=== PATIENT | female | born 1955 | race Caucasian/White ===

== ENCOUNTER 2021-09-07 10:16 | Outpatient (CLI) | payer MEDICARE, OTHER, SELFPAY ==
[2021-09-07 11:19] LABS: Basophils Absolute Auto 0.03 K/uL (0.00-0.30); Basophils Percent Auto 0.5 % (0.0-3.0); Eosinophils Absolute Auto 0.06 K/uL (0.00-0.50); Hematocrit 43.6 % (33.0-51.0); Hemoglobin* 14.1 gm/dL (12.0-16.0); Immature Granulocytes Abs Auto 0.02 K/uL (0.00-0.30); Lymphocytes Absolute Auto 1.51 K/uL (0.90-2.90); Lymphocytes Percent Auto 25.5 % (20-44); Mean Corpuscular HGB Conc 32 gm/dL (32-36); Mean Corpuscular Hemoglobin 29 pg (26-34); Mean Corpuscular Volume 91 fL (80-100); Monocytes Percent Auto 10.5 % (0.0-11.0); Neutrophils Absolute Auto 3.69 K/uL (1.7-7.0); Neutrophils Percent Auto 62.2 % (42.0-72.0); Platelet Count* 257 K/uL (140-440); RDW Coefficient of Variation % 12.2 % (11.5-15.5); Red Blood Count 4.79 m/uL (4.00-5.20); White Blood Count* 5.93 K/uL (4.50-11.00)
[2021-09-07 11:24] LABS: Slide Review Reflex No
[2021-09-07 12:02] LABS: Alanine Aminotransferase* 35 U/L (4-35); Aspartate Amino Transferase* 37 U/L (12-35); Creatinine* 0.8 mg/dL (0.5-1.5); Estimated Glomerular Filt Rate 81.21
[2021-09-07 12:41] LABS: Erythrocyte SedimentationRate* 2 mm/hr (2-20)
[2021-09-09 01:16] LABS: Anti-Nuclear Ab(ANA)IgG ELISA None Detected (None Detected)
[2021-09-09 05:22] LABS: Cardiolipin Antibody IgA < 10 APL (<=11); Cardiolipin Antibody IgG < 10 GPL (<=14); Cardiolipin Antibody IgM 12 MPL (<=12)
[2021-09-09 20:53] LABS: Complement Component 3 143 mg/dL (90-180); Complement Component 4 31 mg/dL (10-40)
[2021-09-09 21:04] LABS: Rheumatoid Factor 10 IU/mL (0-14)
[2021-09-10 19:40] LABS: Lab Miscellaneous Test SEE REF LAB REPORT
[2021-09-12 02:31] LABS: Albumin 3.96 g/dL (3.75-5.01); Alpha 1 Globulin 0.31 g/dL (0.19-0.46); Alpha 2 Globulin 0.67 g/dL (0.48-1.05); Total Protein, Serum 6.3 g/dL (6.3-8.2)
[2021-09-13 02:47] LABS: Prothrombin Time 12.6 sec (12.0-15.5); dRVVT Screen 29 sec (33-44)
== END 2021-09-07 10:17 | disposition home or self-care (01) ==
PROVIDERS: Internal Medicine Rheumatology; PCP Family Medicine
DX: K12.30 Oral mucositis (ulcerative), unspecified (principal)
CPT/HCPCS: 36415; 82565; 84165; 84450; 84460; 85025; 85245; 85610; 85613; 85651; 85730; 86039; 86147; 86160; 86200; 86225; 86235; 86376; 86431

== ENCOUNTER 2021-10-24 11:54 | Outpatient (CLI) | payer MEDICARE, OTHER, SELFPAY ==
--- OUTSIDE RECORDS SUMMARY | 2021-10-24 11:57 | XMS_ITS | Clinical Summary ---
:1955 Author Organization [place] Address [facility] [place] [address] Care Team Providers Name Role Phone Edison Tam MD Primary Care Provider Sheri Casey MD Unavailable Amita Ryan MD Unavailable Sid Lilly MD Unavailable [phone] Allergies Active Allergy Reactions Severity Noted Date Comments Meperidine Rash Low 01/14/2013 Humira Rash Medium 01/03/2012 Ibuprofen Sodium GI Disturbance Medium 02/04/2012 Loratadine Other (See Comments) 08/13/2012 Dry marilyn th, rapid heart beat Lyrica Other (See Comments) 03/27/2012 Patient feels intoxicated on medication Morphine Hcl Rash Low 01/14/2013 IV allergy No Clinical Screening 02/04/2012 Use Ca ution with Pain - See Comments Medication. S hort term OK Penicillin G Rash Low 09/20/2011 Childhood react ion Infliximab Injection 01/03/2012 Doesn't work for pt Sulfa Drugs Fatigue Low 12/03/2011 Profound lethar gy Tramadol Itching, Rash Low 09/20/2011 Medications Medication Sig Dispensed Refills Start End Date Status Date Calcium Citrate-Vitamin D Take 1 tablet 0 Active (CITRACAL + D PO) by mouth 2 times daily. Menthol, Topical Analgesic, Externally 0 Active (ICY HOT EX) apply topically. Patient uses Gel, Cream and Patch PRN guaiFENesin (MUCINEX) 600 Take 600 mg by 0 Active MG 12 hr tablet mouth 2 times daily as needed. fluorouracil (EFUDEX) 5 % Apply topically 40 g 0 02/04/20 1 Active creamIndications: AK to bilateral 2 (actinic keratosis) forearms and hands twice daily Carboxymethylcellulose Apply to eye. 0 Active Sodium (REFRESH TEARS OP) acetaminophen (TYLENOL) 500 Take 500-1,000 0 Active MG tablet mg by mouth every 8 hours as needed L-Lysine 500 MG TABS Take 1 tablet 0 Active by mouth daily ORDER FOR DME, SET TO LOCAL Equipment being 1 Can 3 Active PRINT,Indications: Carbon ordered: 5 monoxide exposure portable Oxygen with nasal cannula at 1-2 liters blood glucose monitoring Use to test 100 each Active (NO BRAND SPECIFIED) test blood sugars 2 7 stripIndications: Other to three times abnormal glucose daily or as directed cyanocobalamin (VITAMIN Inject 1 mL 1 mL 11 Active B12) 1000 MCG/ML (1,000 mcg) 7 injectionIndications: B12 into the muscle deficiency every 30 days order for DMEIndications: Injection 12 each 0 Active B12 deficiency Supplies for 7 Vitamin B12: 3cc syringes w/ 29 gauge needles 1/2 inch length MAGNESIUM OXIDE PO Take 250 mg by 0 Active mouth POTASSIUM CITRATE PO Take 1,000 mEq 0 Active by mouth Ascorbic Acid (VITAMIN C Take 1,000 mg 0 Active PO) by mouth UNABLE TO FIND MEDICATION 0 Acti ve NAME: NRF2 Booster. 2 capsules daily zinc sulfate (ZINCATE) 220 Take 220 mg by 0 Active (50 ZN) MG capsule mouth daily UNABLE TO FIND MEDICATION 0 Acti ve NAME: ALA 750 mg Daily UNABLE TO FIND MEDICATION 0 Acti ve NAME: S Acetyl Glutathiane 1 capsule Daily COENZYME Q-10 PO 0 Act rena UNABLE TO FIND MEDICATION 0 Acti ve NAME: Prevagan 1 Capsule Daily Ferrous Sulfate (IRON 0 Active SUPPLEMENT PO) ALPRAZolam (XANAX XR) 0.5 TK 1 T PO QD 2 Active MG 24 hr tabletIndications: PRN 8 Hypocalcemia, Senile osteoporosis, History of corticosteroid therapy Venlafaxine HCl (EFFEXOR 0 Active PO)Indications: 8 Hypocalcemia, Senile osteoporosis, History of corticosteroid therapy AMITRIPTYLINE HCL PO Take 0.5 mg by 0 Active mouth rOPINIRole (REQUIP) 0.25 MG Take 1 tablet 90 tablet 3 07/19/19 1 Active tablet (0.25 mg) by 8 mouth daily levothyroxine Take 1 tablet 90 tablet 3 Ac tive (SYNTHROID/LEVOTHROID) 25 (25 mcg) by 8 MCG tabletIndications: mouth daily Yossi's thyroiditis gabapentin (NEURONTIN) 100 TAKE 1 CAPSULE 90 capsule 0 01 Active MG capsule BY MOUTH AT 7 8 PM. INCREASE DOSE TO 200( 2 CAPSULE) MG IN 1 WEEK AND 300 MG(3 CAPSULE) IN 2 WEEKS gabapentin (NEURONTIN) 100 TAKE 1 CAPSULE 90 capsule 0 01 Active MG capsuleIndications: BY MOUTH AT 7 8 Restless legs syndrome PM. INCREASE (RLS) DOSE TO 200( 2 CAPSULE) MG IN 1 WEEK AND 300 MG(3 CAPSULE) IN 2 WEEKS Active Problems Problem Noted Date Bilateral shoulder pain 05/07/2017 Carbon monoxide exposure 01/23/2016 Digestive-genital tract fistula, female 07/11/2015 Pneumaturia 07/11/2015 Osteoporosis 05/19/2015 History of corticosteroid therapy 08/27/2013 Senile osteoporosis 07/27/2013 Personal history of other drug therapy 07/27/2013 Low back pain 06/02/2013 Chronic low back pain 05/28/2013 Lumbar stenosis with neurogenic claudication 4 Lumbar radicular pain 05/28/2013 Sacroiliac joint pain 05/28/2013 Numbness and tingling of left leg 04/02/2013 Hypothyroidism 12/03/2012 Inflammatory bowel disease (Crohn's disease) 3 Connective tissue disorder 07/19/2012 Sinus infection 03/27/2012 Dehydration 02/06/2012 Neoplasm of uncertain behavior of skin 02/02/2012 Pyelonephritis 01/21/2012 Concussion 12/13/2011 Restless leg syndrome 12/13/2011 Right wrist fracture 12/13/2011 Fall 12/03/2011 Cholelithiases 11/07/2011 Sacro-iliac pain 11/01/2011 Dermatitis 11/01/2011 Fibrosis of skin 11/01/2011 Adjustment disorder with mixed anxiety and depressed m ood 09/20/2011 Overview: Dr Wamao Fatigue 09/20/2011 Renal mass, right 09/20/2011 Yossi's thyroiditis 09/19/1989 Overview: Currently hypothyroid (Problem list name updated by automated process. 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 Mechanical problems with limbs 05/06/2013 4 Pain in limb 04/30/2013 06/18/2013 Finger stiffness 04/30/2013 06/18/2013 Other postprocedural status(V45.89) 04/30/201306/09 Finger laceration 04/27/2013 06/18/2013 Immunizations Name Administration Dates Next Due Influenza (IIV3) PF 12/30/2012, 12/13/2011, 02/06/2010, 11/10, 01/09/2007, 12/23/2002, 12/14/1998, 12/09 Pneumococcal (PCV 7) 12/22/2003 Pneumococcal 23 valent 05/12/2015 TD (ADULT, 7+) 11/09/1996 TDAP Vaccine (Adacel) 04/09/2013 Tdap (Adacel,Boostrix) 04/06/2008 Twinrix A/B 08/31/2013 Family History Medical History Relation Comments Asthma Brother 2 Osteoporosis Father no hip fracture Depression Mother Lung Cancer Mother Thyroid Disease Mother thyroidectomy Diabetes Paternal Grandmother Depression Sister 1 Osteoporosis Sister 1 Sjogren's Sister 1 Thyroid Disease Sister 1 Yossi Anxiety Disorder Sister 2 Depression Sister 2 Multiple Sclerosis Sister 2 Thyroid Disease Sister 2 Yossi Colon Cancer No family hx of Colon Polyps No family hx of Crohn's Disease No family hx of Glaucoma No family hx of Macular Degeneration No family hx of Nephrolithiasis No family hx of Ulcerative Colitis No family hx of Relation Status Comments Brother 1 Brother 2 Father Mother Paternal Grandmother Sister 1 Sister 2 Social History Tobacco Use Types Packs/Day Years Used Date Former Smoker Cigarettes 1 18 11/11/1972 - 0 06/26/1981 Smokeless Tobacco: Former User Q uit: 09/20/1991 Tobacco Cessation: Counseling Given: No Alcohol Use Standard Drinks/Week Comments No 0 (1 standard drink = 0.6 oz pure alcoho l) Sex Assigned at Date Recorded Not on file Last Filed Vital Signs Vital Sign Reading Time Taken Comments Blood Pressure 97/68 07/18/2017 10:29 AM CDT Pulse 85 07/18/2017 10:29 AM CDT Temperature 36.5 ??C (97.7 ??F) 07/08/2017 7:47 AM CDT Respiratory Rate 16 07/18/2017 10:29 AM CDT Oxygen Saturation 98% 07/18/2017 10:29 AM CDT Inhaled Oxygen Concentration - - Weight 50.8 kg (112 lb) 07/18/2017 10:29 AM CDT Height 154.9 cm (5' 1) 07/18/2017 10:29 AM CDT Body Mass Index 21.16 07/18/2017 10:29 AM CDT Plan of Treatment Health Maintenance Due Date Last Done Comments ANNUAL REVIEW OF HM ORDERS 1955 CT COLONOGRAPHY 1955 FIT-DNA (Cologuard) 1955 FIT 1955 COVID-19 Vaccine (#1) 05[birth year]29/1956 ZOSTER IMMUNIZATION (1 of 2004 2) LUNG CANCER SCREENING 12/02/2015 12/01/2014, 12/03/2011 COLONOSCOPY 09/14/2016 09/15/2015 COLORECTAL CANCER SCREENING 09/14/2016 FLEX SIG 08/26/2017 08/26/2012 MAMMO SCREENING 02/08/2018 02/08/2017, 12/15/2014, 2011 FALL RISK ASSESSMENT 11/29/2019 MEDICARE ANNUAL WELLNESS 11/29/2019 01/28/2017, 11/01/2011 VISIT Pneumococcal Vaccine: 65+ 11/29/2019 05/12/2015 Years (1 - PCV) ADVANCE CARE PLANNING 08/14/2020 08/15/2015 PHQ-2 (once per calendar 03/11/2021 01/28/2017, 05/12/2015 year) INFLUENZA VACCINE (#1) 2021 12/30/2012, 12/07/2012, 12/13/2011, Additional history exists LIPID 01/28/2022 01/28/2017, 05/12/2015, 08/09/2014, Additional history exists DTAP/TDAP/TD IMMUNIZATION 04/09/2023 04/09/2013, 04/06/2008 , (4 - Td or Tdap) 11/09/1996 DEXA 02/09/2032 02/08/2017, 05/16/2015, 11/06/2011 HEPATITIS B IMMUNIZATION Aged Out 08/31/2013 No long er eligible based on patient 's age to complete this topic HEPATITIS C SCREENING Completed 08/31/2013 IPV IMMUNIZATION Aged Out No longer eligi ble based on patient 's age to complete this topic MENINGITIS IMMUNIZATION Aged Out No longe r eligible based on patient 's age to complete this topic Medical Devices Implanted Type Area Securities Teller Device Shelf Model / Identifier Expiration Serial / Date Lot Nerve Guide [id number] Neuragen [id number]-220 Charge Per Cm= 2 Units Left: [employer] 01/08/2015 PNG-220 / Implanted: Qty: 1 on 04/16/2013 by Marisol Pratt MD at [facility] Thumb [employer] / [id number] Description: INDEX FINGER Insurance Payer Benefit Plan / Subscriber ID Effective Phone Address T ype Group Dates MEDICA MEDICA PRIME [id number] 2012-Prese [phone] [address] Indemn[address]UTION [address] [place] [address] MEDICARE MEDICARE FOR HB [id number] 1984-Pres [phone] ATTN CLAIMS Medicare SUPPLEMENT ent 40 [address] [place] [address] Maria E Coley Personal/Family Self [address] (Home) [place] [address] Advance Directives For more information, please contact: [phone] Latest Code Status on File Code Status Date Activated Date Inactivated Comments Full Code 02/06/2012 11:20 AM 02/06/2012 7:13 PM Full Code 01/21/2012 7:33 PM 01/22/2012 8:29 PM Full Code 12/03/2011 5:37 PM 01/21/2012 7:33 PM Full Code 12/03/2011 10:30 AM 12/03/2011 5:37 PM Care Teams Boiler Reliner Relationship Specialty Start Date End Date Edison Tam MD PCP - General Family Practice 07/23/14 [address] [facility] [address] [place], [place] [address] Sheri Casey MD MD Pulmonary Disease 07/23/14 [address] [facility] [address] [place], [place] [id number] Amita Ryan MD MD Internal Medicine 12/19/15 [address] [facility] [id number] [place] [address] Sid Lilly MD MD Orthopaedic Surgery 02/22/16 [address] [facility] [address] [place] [address]
--- OUTSIDE RECORDS SUMMARY | 2021-10-24 11:57 | XMS_ITS | Encounter Summary ---
:1955 Author Organization [place] Address [address] [place] [id number] Care Team Providers Name Role Phone Edison Tam MD Primary Care Provider Sheri Casey MD Unavailable Alphonso Billy MD Unavailable Roland Holt MD Unavailable Amita Ryan MD Unavailable Sid Lilly MD Unavailable [phone] Neda Boland RN Unavailable Reason for Visit Reason Onset Date Comments Refill Request 07/08/2017 Encounter Details Date Type Department Care Team Description 07/08/2017 Refill M [facility] Laisha Moraes MD Refill Request [address] [place] [address] [place], [place] [address] [phone] Social History Tobacco Use Types Packs/Day Years Used Date Former Smoker Cigarettes 1 18 11/11/1972 - 0 06/26/1981 Smokeless Tobacco: Former User Q uit: 09/20/1991 Alcohol Use Standard Drinks/Week Comments No 0 (1 standard drink = 0.6 oz pure alcoho l) Sex Assigned at Date Recorded Not on file documented as of this encounter Plan of Treatment Not on filedocumented as of this encounter Visit Diagnoses Diagnosis Hypocalcemia Senile osteoporosis History of corticosteroid therapy Personal history of systemic steroid the rapy documented in this encounter Additional Health Concerns Assessment Noted Time PHQ-9 Depression Total Score: 3 01/28/2017 10:28 AM CS T documented as of this encounter Care Teams Steel Melter Relationship Specialty Start Date End Date Edison Tam, PCP - General Family Practice 07/23/[address] [place] [address] [place] [address] [address] [place], [place] [id number] Sheri Casey MD Pulmonary Disease 07/23/[address] [place] [address] [facility] [address] [place] [address] Alphonso Billy MD Cardiology 08/12/[address] [place] [id number] Roland Holt MD Resident Student in [facility] 05/12/15 09/24/18 health care education/training program Amita Ryan MD MD Internal Medicine 12/19/[address] [place] [address] [id number] [place], [place] [id number] Sid Lilly MD Orthopaedic Surgery 02/22/16 MD [facility] [address] [place], [place] [address] Neda Boland, NANDINI Nurse Coordinator Neurology 02/23/16 09/01/18 documented as of this encounter
--- OUTSIDE RECORDS SUMMARY | 2021-10-24 11:57 | XMS_ITS | Encounter Summary ---
:1955 Author Organization [employer] Address [address] [place] [address] Care Team Providers Name Role Phone Steffanie Hitchcock MD Primary Care Provider [phone] Reason for Referral Procedure/Equipment (Routine) - Incomplete Specialty Diagnoses / Procedures Referred By Contact Refer red To Contact Diagnoses Chronic bilateral low back pain without sciatica Crohn's disease with complication, unspecified gastrointestinal tract location ([facility]) Cornelia Richards MD Procedures MR Pelvis W/WO IV Cont [address] [place], [place] [address] Referral ID Status Reason Start Date Expiration Date Visits V isits Requested Authorized [id number] Incomplete 02/25/2018 08/24/2018 1 1 [employer] Reason for Visit Reason Comments CONSULT Encounter Details Date Type Department Care Team Description 02/24/2018 Initial Consult [place] [address] [address], [place] RAIMUNDO (antinuclear antibody) (Primary Dx); Rheumatology Cornelia Guadalpue MD Pleurisy; [address] [facility] Sarah Ann Osteoporo sis without current pathological fracture, unspecified osteoporosis type; [address] [facility] Chronic bilateral low back pain without sciatica; [facility], Crohn's disease with complication, unspecified gastrointestinal tract location (HRC); [place] [address] [place] [address] Chest wall pain [phone] Social History Tobacco Use Types Packs/Day Years Used Date Smoking Tobacco: Never Assessed Sex Assigned at Date Recorded Not on file documented as of this encounter Last Filed Vital Signs Vital Sign Reading Time Taken Comments Blood Pressure 126/79 02/24/2018 1:15 PM [employer] Pulse 90 02/24/2018 1:15 PM [employer] Temperature - - Respiratory Rate - - Oxygen Saturation - - Inhaled Oxygen Concentration - - Weight 53.1 kg (117 lb) 02/24/2018 1:15 PM [employer] Height 153.7 cm (5' 0.5) 02/24/2018 1:15 PM [employer] Body Mass Index 22.47 02/24/2018 1:15 PM [employer] documented in this encounter Patient Instructions Patient InstructionsCornelia Richards MD - 02/24/2018 1:15 PM CST Thank you for enrolling in [employer]. Please follow the instructions below to securely access your online medical record. [employer] allows you to send messages to your doctor, view your test results, renewyour prescriptions, schedule appointments, and more. How Do I Sign Up? 1. In your Internet browser, go to [email or web address] 2. Click on the Enter activation code link under the New User? section. You will see the Activate your account! page. 3. Enter your activation code exactly as it appears below. You will not need to use this code after you???ve completed the sign-up process. If you do not sign up before the expiration date, you must request a new code. Activation Code: [email or web address] Expires: 03/26/2018 2:33 PM 4. Enter your last name and date of (mm/dd/yyyy) as indicated, then click Continue. You will be taken to the Let's set up your account page. 5. Create a username. This will be your [facility] login ID and cannot be changed, so think of one thatis secure and easy to remember. 6. Create a password. You can change your password at any time. 7. Enter your e-mail address. You will receive e-mail notification when new information is availablein [employer]. 8. Select your Security Questions and enter your answers. These can be used at a later time if you forget your password. 9. Check the box to accept the terms and conditions. Click Create your account. You can now view your medical record. Additional Information If you have questions, you can call [phone] to talk to our MyChart staff. Remember, MyChart is NOT to be used for urgent needs. For medical emergencies, dial 911. Zoledronate (Reclast) Purpose Zoledronate (Reclast) is like alendronate (Fosamax) and risedronate (Actonel), but it is intravenous. If you are recommended to take Reclast, it probably means that you were intolerant of Fosamax or Actonel because of stomach or esophagus problems, or inability to swallow pills, or the oral medications didn't work to improve your bone density. Like Fosamax and Actonel, Reclast helps reduce the risk of fracture in those with osteoporosis, or other states associated with a high risk of fracture. It can also used to treat Paget???s disease of bone and also to help prevent tumors spreading to bone. Reclast binds very tightly to bone, where it inhibits the action of bone cells called osteoclasts. Osteoclasts are bone cells responsible for removing mineral and bone protein from bones such that the bones become thinner and structurally weaker, and thereby more easily broken with minor trauma such afall on a loose rug or on ice. By reducing the activity of osteoclasts, Reclast allows cells that build bone to ???catch up?? and replace some of the bone that the osteoclasts have removed, thereby strengthening bones and reducing risk of fractures. Dose For osteoporosis, Reclast is dosed 5 mg intravenously once every 12 months. It is typically infused in about 30 minutes or so. Lower doses may be used if you have kidney problems or at your physician???s discretion. For Paget???s disease of bone, the dose may be higher and more frequent. Potential side effects Since Reclast is intravenous, it avoids the stomach and esophagus and won't cause irritation problems in those areas. Some individuals will infrequently experience pain in the limbs (from bone and /or muscle) while on these medications. Low blood calcium (hypocalcemia) can rarely occur, especially if c alcium and/or vitamin D intake is suboptimal. Make sure you are taking through diet and supplements at least 1200 mg of calcium daily and 800 IU of vitamin D. The most common side effect of Reclast is achy muscles, joints, or bones, and/or a flu-like syndromewhich can begin several hours after the infusion and last 24- 48 hours. This syndrome may even be accompanied by a low grade fever or headache. Symptoms typically respond to Tylenol 1000 mg every 6 hours or ibuprofen 400 mg every 6 hours. With high doses used in cancer treatment and very rarely in the doses used to treat osteoporosis, there have been cases of the jaw bone not being able to heal after major dental procedures, such as tooth extractions. As a precaution, all patients starting Reclast are advised to see their dentist and make sure that no significant dental procedures are planned. Such procedures should be avoided, if possible, for at least 3 months after your last infusion. Routine cleaning and fillings are not known julio a problem. There may also be a slight increased risk for the development of a fast heart rhythm called atrial fibrillation with these medications. This is rare, but might present with fluttering in the chest or shortness of breath. Expected effects Reclast helps improve bone density gradually, on average about 5 to 10% in the spine over 3 to 5 years, and 3 to 5% in the hip over that same time frame. After 3 years of use, these drugs tend to maintain bone density rather than increase it further. The risk of fractures is not reduced immediately with use of these drugs, but spine fracture risk isreduced within 6 months of starting these medicines. Reduction of hip, wrist or other non-spine fracture risk takes longer to achieve. Some retention of Reclast in the bone is expected after several years of use. Therefore, it is possible that some protection against fractures may persist after stopping the drug, especially if it has been used for several years. In Paget???s disease, gradual reduction of markers of disease activity such as the blood level of alkaline phosphatase occur over a few months. Bone pain associated with Paget???s disease subsides in 3to 6 months. Monitoring Your physician may check your kidney function, blood calcium, and/or tests of bone metabolism. Typically, a repeat bone mineral density test is done two years after commencement of Reclast to reveal the degree to which bone density has changed and hopefully improved. Special considerations It is very important to get adequate amounts of calcium and vitamin D through their diet and/or supplements. Inadequate amounts of daily calcium and/or vitamin D may blunt the benefit from these medicines. Sometimes it is helpful to have your vitamin D level checked to make sure you are getting enough. Let your physician know if you are having any significant dental procedures (like root canals, wisdom teeth extraction). Simple cavities, fillings, and replacement of fillings are not known to be a concern on Reclast. What to expect next (if you are starting an intravenous medication): 1. Our infusion staff will process your insurance and you will receive a call about coverage for themedication. 2. The infusion staff will also contact you to schedule your infusion. 3. If you haven't heard from Rheumatology infusion services within 7-10 days, please call Jessica at [phone] for a status update. RAIMUNDO = Antinuclear antibody This is an antibody in the blood which tends to bind proteins within the nucleus of cells. It is often referred to as the ???Lupus Test?? because 99% of people with lupus do have a positive test. However, perhaps only 1/10 to 1/50 of people randomly screened and found to have a positive RAIMUNDO actually have lupus. In other words, all people with lupus have a positive RAIMUNDO but not all people with a positive RAIMUNDO have lupus. It is therefore a sensitive test, but not a specific one. In practice, it often has greater utility if it is negative, since a negative test almost always (99% of the time) rules out Lupus as the causeof the underlying symptoms. The RAIMUNDO may be positive in many other conditions besides Lupus. Other autoimmune diseases like rheumatoid arthritis, Sjogren???s Syndrome, scleroderma can cause a positive. Autoimmune disease which don???t fall into the Rheumatology category like thyroid disease and liver disease can cause a positive RAIMUNDO. Other reasons for a positive RAIMUNDO include some kinds of infections (even viral infections like colds) and certain medications (minocycline, procainamide, hydralazine, some antiseizure drugs). Up to 1 in 20 normal people can have a positive RAIMUNDO (usually low positive) which has no consequence at all. The stronger positive the RAIMUNDO, the more likely it is to mean something significant. RAIMUNDO is reported in a titer, with higher numbers being a stronger positive: Negative 1:40 (weak positive) 1:80 1:160 1:320 1:640 1:1280 1:2560 (strong positive) We often take RAIMUNDO's seriously if they are at 1:320 or higher titer. Thankfully, there are some additional blood tests which can help determine if a positive RAIMUNDO is a ???true positive?? or ???false positive,?? so these may be ordered. The most important thing, however, is what symptoms the patient has. A positive RAIMUNDO is just one piece of information used to diagnose disease like lupus. Diagnosing diseases like lupus requires the presence of certain signs and symptoms. In SUMMARY, Only about 11-13% of persons with a positive RAIMUNDO test have lupus and up to 15% of completely healthypeople have a positive RAIMUNDO test. The production of these autoantibodies is strongly age-dependent, and increases to 10-37% in healthy persons over the age of 65. Even healthy people with viral infections can have a positive RAIMUNDO, albeit for a short time. Some medications can cause a positive RAIMUNDO. It isimportant to talk with your doctor all the drugs you are taking--prescription, [id number] and street. Other conditions, such as cancer, can cause a positive RAIMUNDO. Thus a positive RAIMUNDO test does notautomatically translate into a diagnosis of lupus or any autoimmune or connective tissue disease. [employer] documented in this encounter Progress Notes Cornelia Richards MD - 02/24/2018 1:15 PM CST RHEUMATOLOGY NEW OUTPATIENT CONSULT NOTE Encounter Date: 02/24/2018 This note was generated with voice activated toddler caregiver software and may contain typographical and word substitution errors. Consultation was requested by: Steffanie Hitchcock MD [address] [place] [address] CC: lupus, Raynaud's History of present illness: Patient is a 62 y.o. female referred to rheumatology from primary care provider given selfreported history of lupus along with Raynaud's phenomenon, fatigue, and myalgias. patient has a long-standing history of known Crohn's disease, diagnosed at a young age which has required various medications over the years as well as surgeries. Reportedly was on methotrexate injection for a period of time, then Remicade for unknown number of years which was discontinued due to loss of efficacy (she states it only worked with the initial infusion), and Humira which was discontinued due to injection site reaction. She reportedly has followed with a number of different rheumatologists over the years for which she was told was a possible lupus like syndrome. She has had a prior RAIMUNDO that reportedly waspositive at low level titer, but most recently appears to have been negative on several occasions, last just recently checked by a primary care provider 02/07/2018. Note she also has known Yossi's thyroiditis. Treatment for her Crohn's disease over the last 3-4 years has just been low-dose predniso ne, for which she self titrated off about one year ago. States she had been on prednisone since timeof diagnosis in the 1970s. States she had been following with endocrinology through [facility] (Dr. Moraes) for her thyroid, but reportedly did have a cosyntropin stim test to insure it was safefor her to discontinue her long-standing prednisone. Reportedly results were normal. She thinks thather Crohn's disease is actually under good control now off all therapy. She will be establishing care with a new care transition coordinator within the month. States she is having only about one bowel movement per day of normal consistency, no watery loose stool, hematochezia, or abdominal pain. Weight is stable. She is particularly seeing me today because she has a sister who has known Sjogren's disease who volunteers for the [employer] in [place] and works with a nurse named Jessica who recommended me. Patient is worried she may have active underlying rheumatic disease given some of her symp toms, and family history of autoimmune disease including an older sister with multiple sclerosis yoana twin sister with Sjogren syndrome. Patient herself actually were denies any significant dry eyes or dry mouth and does not have history of parotiditis. Her biggest concern today is actually shortnessof breath over the last 1 year, fatigue, and chest pain with deep breathing. She has had a workup for this through primary care already including a CTA of the chest on 01/17/2018 that showed no pulmonary emboli, no thoracic aorta aneurysm, no mediastinal or hilar lymphadenopathy. There was a 2 mm pulmonary nodule in the right upper lobe otherwise no other focal pulmonary opacities. There is also no mention of pleural effusion or pericardial effusion. She was evaluated in a local ED and did have an EKG done which was also reportedly read as normal. She will be having a stress test within the next month or so. CT did show atherosclerotic vascular calcifications. She has no history of known angina. She describes the shortness of breath typically being exertion related, occasionally associated with feeling lightheaded although the lightheadedness/dizziness can also occur by itself. Will also experience nausea and painful deep breathing. States she has noticed the symptoms while doing limited activities such as vacuuming and walking up and down stairs. Does actually exercise on a regular basis including walking, using a stationary bike, and doing miles chi on almost a daily basis. States she has noticed some difficulty building stamina despite ongoing exercise. States she just feels exhausted. Describes a long-standing history of brain fog, describes this as feeling as though she is trying to think through a cotton ball. Thinks this is been getting worse over the last 1 year. Was actually evaluated for this years ago through [facility] [place] with a formal full neuropsych evaluation. She does not remember the results of this. She also describes a long-standing history of headaches that seem to be getting worse. Pain is typically in front. No vision changes, but has had 2 episodes now of what looks and sounds like some conjunctival hemorrhage (she shows me a picture of a bright red eye on her cell phone). She does describe some soreness laterally from her right eye. She was evaluated by ophthalmology for this who told her this was due to burst blood vessels. She really did not did not have eye pain or decreased vision. She does describe feeling as though she has double vision in both eyes all the time for the last numberof months. Thinks that her eyes are very sensitive to the sun. She reportedly has cataracts that need to be worked on. He has some balance concerns as well. She was evaluated by Dr. Jeffrey Brasher of [facility] neurological clinic in [place] just last week, who reportedly plans on obtaining an MRI of herbrain and lumbar spine. Patient ascribes a long- standing history of low back pain, and now describesparesthesias in her legs predominantly involving the right lateral aspect with intermittent zapping s ensation. Regarding her chest pain, describes pain if she were to push directly on the chest, but notes the pain is not completely reproducible on palpation. Has painful deep breathing. Has tried using topical Vicks vapor rub and topical medical marijuana she borrowed from her sister which she does think is very soothing. Has had a persistent dry cough. States she was exposed to carbon monoxide in a home in [place] from 2011 2 2014, she is wondering if her respiratory symptoms and fatigue are related to this prior exposure. She describes having intermittent oral ulcers typically on the inside of her lower lip but also occasionally on the outside of her lips and along the gumline. These can be painful or pain lasts. Thinksthey have been more active recently. No nasal ulcers. Describes constantly feeling as though she hasa sore throat, again denying actual dryness of the mouth. No actual dysphagia. She describes widespread intermittent pain in her neck, hands, knees. No actual swelling of joints. Pain is overall worse with activity. Not sleeping that well at night. Wakes feeling unrested and naps a lot during the day.Wakes up around 3 AM every night to urinate. Also struggles with restless leg syndrome and her Requip does not always help. Describes a long-standing history of Raynaud's phenomenon beginning in her 40s the typically just affects the feet and not the hands. States she recalls seeing the bottoms of herfeet looking Black at some point, now thinks that sometimes her entire foot and even beyond the ankle will look purple, states this is worse in the winter, but not actually always temperature associated. No history of blood clots, miscarriage, seizure. No family history of Raynaud's phenomenon. Note the patient was last evaluated by rheumatology by Dr. Debbi Juarez in the Lupus clinic at the [facility] in 2012. Serologies were repeated at the time that showed a negative RAIMUNDO, DHEERAJ panel, normal complement levels. She was not thought to have lupus. The low titer positive RAIMUNDO previously was thought to likely be due to Yossi's thyroiditis. The intermittent facial rash was thought to be either rosacea or steroid-related telangiectasia. The diffuse pain was thought to be fibromyalgia related disease. Note she also has a history of osteoporosis and was following with endocrinology for this. Per endocrinology note from Dr. Moraes at [facility] on 06/2017, she noted a DEXA scan from 02/2017 that showed aT score of -2.9 at the right femoral neck. States patient has a history of several fractures, one from falling down stairs, one from rollerskating. Unclear which actually fractured. Reportedly was on Actonel years ago which was discontinued after she developed an esophageal ulcer, thought to be related to her Crohn's. Then reportedly received IV Reclast for unknown period of time while living in [place], last delivered in 2011. There was report that she was told to stop this given jaw concerns from a dentist. Patient then went on to receive one-time dose of IV Reclast in 01/2014 through [facility], unclear why was not repeated. Was mention of prior issue with hypocalcemia, however most recent calcium levels in 06/2017 and again 01/2018 were normal. Reportedly did not previously tolerate Fosamax and plan was to start Reclast. Patient believes she received 2 years of Reclast, the last time she believes was over 5 years ago. She is not sure why thiswas stopped. States when she is most recently seen endocrinology they focus more on other endocrine issues. She does take calcium and vitamin D on a regular basis. No history of fragility fracture thatI am aware of. ROS: Comprehensive review of systems form filled out for today's visit was reviewed with the patient,placed into SDOC, and is otherwise negative except: Fever, chills, balance issues, hair loss, doublevision, painful red eyes, mouth sores, shortness of breath, painful deep breathing, cough, difficulty swallowing, nausea, difficulty sleeping, memory loss, color change in toes. PMH: MDD. Anxiety. Hypothyroidism, Yossi's thyroiditis. Migraine. Osteoporosis. Crohn's disease,diagnosed in the 1970s, currently off all treatment. Raynaud's phenomenon. B12 deficiency. Hx lumbarlaminectomy. ?? Medications: Updated in EMR, notable for: Vitamin B-12. Synthroid. Requip. Venlafaxine. Vhic-pnn-qcrebkn products including adrenal support. ?? Adverse drug reactions/Allergies: morphine and PCN causes rash. Sulfa causes fatigue. ?? FH: Positive for a twin sister with Sjogren syndrome. A different sister with multiple sclerosis. A father with rheumatoid arthritis. A brother with asthma. ?? SH: nonsmoker. No alcohol use. Previously lived in [facility] [place] [facility], then [place], now currently living in [facility]. Does not currently work, states she has never really had a career. 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 She is . Nochildren. No prior pregnancies. ?? PAIN & RAPID3: In flowsheet or scanned in if completed by patient. RAPID 3 score = 1.5 Physical exam: VS: BP 126/79 (BP Location: Right Arm, BP Cuff Size: Adult Regular) Pulse 90 Ht 5' 0.5 (1.537 m) Wt 117 lb (53.1 kg) BMI 22.47 kg/m?? General: NAD Eyes: anicteric, noninjected sclerae, no proptosis, EOMI ENT: no oral ulcers, erythema or exudates, no thrush, normal salivary pool Vasc: Normal palpable bilateral temporal arteries. Some mild sensitivity overlying the right scalp along the temporal artery. No jaw clicking with movement. No jaw pain with movement. No bruit of bilateral carotids or supraclavicular region. Normal bilateral palpable radial arteries 2+. Lymph: no cervical or supraclavicular lymphadenopathy Endo: no thyromegaly CV: Mildly tachycardic heart rate 90, regular rhythm; normal heart sounds; no murmur, rubs, gallops Resp: clear to auscultation bilaterally; no wheezing, rhonchi or rales Abd: soft, non-tender, non-distended, no hepatosplenomegaly : no suprapubic tenderness Skin: no rashes, ulcers, nodules. No perigungual erythema, no digital pitting or ulcerations, no nail pitting Neuro: alert, normal muscle bulk and tone, normal gait. Strength of bilateral shoulder abduction andhip flexors 5/5. Normal gait Psych: Normal affect, normal speech, good memory MSK: A full joint exam was performed. The joint exam was negative for joint swelling, tenderness, excessive warmth, range of motion abnormalities, or instability unless noted below: Neck: FROM Shoulder: FROM bilat, no synovitis bilat Elbow: FROM, no synovitis bilat Wrist: FROM, no synovitis bilat Hands: FROM, 100% fist making, 5/5 strength, no synovitis bilat, makes fist well, no deformity or deviation. Hip: FROM bilat, neg Vida, neg SI stress bilat Back: neg percussion pain, no pain on palpation SI joints, neg SLR bilat Knees: FROM bilat, no synovitis bilat Ankles: FROM, no synovitis bilat Feet: no synovitis bilat, negative MTP squeeze Other: Mild tenderness on palpation of chest wall, upper back/neck. Labs: Through [facility] and clinics on 02/07/18: Ferritin low at 11. Iron level, TIBC normal. Percent saturation low at 11, normal 20-50%. Reticular count 1.2. Glucose, creatinine, GFR, sodium, potassium, chloride the calcium, total protein normal. AST mildly elevated at 43, normal less than 35. Normal total bili, ALT, alkaline phosphatase. TSH with reflex T4 normal. Rheumatoid factor and anti-CCP antibody negative. RAIMUNDO negative. HLA-B27 negative. Vitamin B12 normal. Folate normal. CBC with WBC 6.8, hemoglobin 12.3, MCV 91, platelet 258. Care everywhere labs: In 2012 she had a negative RAIMUNDO, DHEERAJ panel, double-stranded DNA, SCL 70, histone, beta 2 glycoprotein, rheumatoid factor, CCP, cryoglobulins. Had normal complement levels. Negative SPEP. Negative HBV core and TB. In 2013 she had a negative HCV. Osteoporosis labs 06/2017 had vitamin D level of 27, PTH of 36, TSH of 4.75 but normal free T4, phosphorus 4.3. 01/2018 labs had calcium of 8.6, alkaline phosphatase 98, creatinine of 0.7, hemoglobin at 12.3. Imaging: CT chest with contrast 01/17/18: No pulmonary emboli. No acute abnormalities of the chest identified. 2 mm pulmonary nodule in the right upper lobe. If the patient has a history of smoking a follow-up chest CT should be considered in one year to document stability of this nodule. Otherwise, no follow-up is required. No evidence of mediastinal or hilar adenopathy. No axillary adenopathy. No thoracic aorta aneurysmal dilatation. Does have atherosclerotic vascular calcifications. No pulmonary opacities beyond a 2 mm pulmonary nodule in the right upper lobe previous dimension. No abdominal modalities the liver, spleen, pancreas, adrenal glands. Assessment and Plan: # History of intermittently positive low titer RAIMUNDO in the setting of known autoimmune disease including Yossi's thyroiditis and Crohn's disease # Progressive shortness of breath, painful deep breathing # Chronic fatigue # Insomnia, restless leg syndrome # Osteoporosis, T score -2.9 at right femoral neck 02/2017, history of 2 fractures, unclear if fragility fractures # Polyarticular arthralgias, noninflammatory # Recurrent oral ulcerations # History of recurrent subconjunctival hemorrhage # Self-reported diplopia, bilateral # Right lower extremity paresthesia # Chronic low back pain with history of lumbar laminectomy # Possible Raynaud's phenomenon of the feet, likely primary # Family history of autoimmune disease - father with RA, Sister with Sjogren syndrome, Different sister with multiple sclerosis Patient has a variety of nonspecific symptoms that to me at this point are not necessarily consistent with a one underlying systemic autoimmune rheumatic disease. Her most recent RAIMUNDO was negative. Noteshe does have intermittent symptoms that we certainly can see in SLE including oral ulcerations, arth ralgias, fatigue, pleurisy symptoms, however with a negative RAIMUNDO test along with previously normal DHEERAJ panel, double-stranded DNA, complement levels, and recently normal CBC and ESR/CRP, she would not meet criteria for SLE and I would not give her the diagnosis now. I also do not think that she has Sjogren's syndrome given a negative RAIMUNDO, prior negative SSA and SSB, and lack of prominent sicca symptoms nor history of parotitis. She did tell me that her sister also did not have positive serologies but eventually was given a diagnosis of Sjogren's, however again the patient herself does not actually have sicca symptoms, therefore I would not offer a minor salivary gland lip biopsy which I sometimes recommend to clarify a diagnosis of Sjogren's in the setting of negative serologies. I also do not think that she has rheumatoid arthritis given there is no evidence of inflammatory joint disease on exam today and given previously negative rheumatoid factor and CCP. Given her history of Crohn's disease, a seronegative spondyloarthropathy is possible, however note she recently had a negative HLA-B27 and again there is no evidence of underlying inflammatory arthritis on my exam today, and she lacks a history of inflammatory eye disease such as uveitis/iritis, nor dactylitis, enthesitis, psoriasis. Does have questionable inflammatory back pain features, therefore given she is already planning on having MRI of her lumbar spine this week, I will recommend that it also includes the pelvis so we get a better look at the sacroiliac joints to rule out sacroiliitis. I will have my nurses call [facility] and clinics to try to see if they can also do the MRI pelvis this Saturday along with her other MRIs. Further regarding her chest discomfort, I am unclear what this is due to, but again if my workup is negative do not think this would be related to an underlying autoimmune rheumatic etiology. Occasionally the seronegative spondyloarthropathies can cause inflammatory chest wall pain due to inflammation of the manubriosternal joint or costochondral junction which can be detected on MRI or bone scan, although again ESR and CRP are normal. Agree with primary care in obtaining cardiac stress test given symptoms at times seem to be exertional and associated with nausea and lightheadedness which is concerning for cardiac etiology. Would also recommend considering pulmonary function testing and a formal echocardiogram. I will leave this up to primary care. If ultimately determined to be noncardiac in nature and no pulmonary etiology found, could try topical lidocaine patch, topical capsaicin, low-dose gabapentin or changing venlafaxine to duloxetine (she's unable to take NSAIDs reportedly). Given her multitude of symptoms and given it has been 5 years since there has been additional autoimmune serologies collected, I will repeat an DHEERAJ panel, complement levels, double-stranded DNA, CK, SCL 70, centromere, cryoglobulin, SPEP, UPEP, markers of inflammation. Regarding her history of osteoporosis, it does not seem like she is following up with endocrinology for this. Recommended that she continue getting at least 1200 mg of calcium in per day through diet and supplementation as well as vitamin D at least 800 IU daily. I will update an SPEP and UPEP today, otherwise osteoporosis labs are up-to-date within the year. Recent calcium and vitamin D normal. Recommend that she follow up with dentist, and if they are okay with us proceeding with Reclast, we will recommend Reclast 5 mg annually ??2 years, then repeat DEXA scan at that time. I will determine follow-up with me based on the above workup. If no underlying autoimmune disease, Iwould recommend following up with her in about 2 years after an updated DEXA scan. All of the patient's questions were answered to the best of my ability. ?? Thank you for involving me in the care of this very pleasant patient. Time spent - 60 minutes. Greater than 50% of time spent on counseling and education. Shayna Richards MD Rheumatology Brynn Pandey CC: Steffanie Sánchez Mease [facility] [employer] documented in this encounter Plan of Treatment Not on filedocumented as of this encounter Results (ABNORMAL) ELP, Urine Protein Random (02/24/2018 3:19 PM [employer]) P athologist Signature T. Protein,Ur 22 (H) 0 - 14 PN SOFT Random mg/dl Comment: Performed at [facility], [address] [place] [address] ??[id number] Albumin, Urine 100.0 % PN SOFT Alpha 1, Urine 0.0 % PN SOFT Alpha 2, Urine 0.0 % PN SOFT Beta, Urine 0.0 % PN SOFT Gamma, Urine 0.0 % PN SOFT Monoclonal Devaughn 0.0 0.0 % PN SOFT Interpretation SEE BELOW PN SOFT Comment: No monoclonal protein is detectable in t he urine. 24 hour or first morning urine collectio ns have higher probabilities of detecting abnormalities . Signed out by SEE BELOW PN SOFT Comment: [facility] Performed at [facility], [address] [place] [address] ??[id number] CLIA Number [id number] Specimen Anatomical Collection Method Collection Time Receive d Time (Source) Location / / Volume Laterality Urine specimen 02/24/2018 3:19 PM 018 8:06 (specimen) [employer] PM [employer] Cornelia Richards MD LAB_1 Performing Organization Address City/State/ZIP Code Phon e Number PN SOFT [address] [place] [address] [phone] (ABNORMAL) Urinalysis Routine(Micro If Pos) (02/24/2018 3:19 PM [employer]) Patholo gist Method Time Signature Urine Type URINE:clean PN SOFT cat Turbidity Clear Clear PN SOFT U BILI Negative Negative PN SOFT Blood Urine Negative Neg - Trace PN SOFT Glucose, Negative Neg-30 PN SOFT Qualitative U mg/dL Ketones Trace (A) Negative PN SOFT Leukocyte Negative Negative PN SOFT Esterase Urine Nitrite Urine Negative Negative PN SOFT pH Urine 5.5 5.0 - 8.0 PN SOFT Protein Urine Negative Neg - Trace PN SOFT mg/dL U Specific >=1.030 1.005 - PN SOFT Beggs 1.030 Urobilinogen Negative Negative PN SOFT Urine Eu/dL Specimen Anatomical Collection Method Collection Time Receive d Time (Source) Location / / Volume Laterality Urine 02/24/2018 3:19 PM 8 3:19 [employer] PM [employer] Narrative PN SOFT - 02/24/2018 3:22 PM [employer] Performed at [facility], [address] [place] [address] CLIA number [id number] Cornelia Richards MD LAB_1 Performing Organization Address City/State/ZIP Code Phon e Number PN SOFT [address] [place] [address] (ABNORMAL) ELP, [place], Serum (02/24/2018 3:16 PM [employer]) P athologist Signature Total Protein 6.6 6.4 - 8.3 PN SOFT g/dl Comment: Performed at [facility], [address] [place] [address] ??[id number] Albumin 4.3 3.4 - 4.8 g/dl PN SOFT Alpha 1 0.3 0.2 - 0.5 g/dl PN SOFT Alpha 2 0.6 0.5 - 1.1 g/dl PN SOFT Beta 0.8 0.6 - 1.1 g/dl PN SOFT Gamma 0.5 (L) 0.7 - 1.6 g/dl PN SOFT Monoclonal Devaughn 0.0 0.0 g/dl PN SOFT Interpretation SEE BELOW PN SOFT Comment: Hypogammaglobulinemia is present. In dinesh lts, this may reflect the presence of immunodeficiency , chemotherapy, or B cell neoplasm. Consider urine immunofixation to rule ou t Bence Infante proteinuria. Serum immunofixation and me asurement of serum IgA, IgG and IgM may also be indicated. Additional Testing Not indicated PN SOFT Signed out by SEE BELOW PN SOFT Comment: [facility] Performed at [facility], [address] [place] [address] ??[id number] CLIA Number [id number] Specimen Anatomical Collection Method Collection Time Receive d Time (Source) Location / / Volume Laterality 02/24/2018 3:16 PM 8 5:29 [employer] PM [employer] Cornelia Richards MD LAB_1 Performing Organization Address City/[facility]/ZIP Code Phon e Number PN SOFT [address] [place] [address] CRYGB - Cryoglobulin, Qualitative (02/24/2018 3:16 PM [employer]) [facility] gist Method Time Signature Cryoglobulin Qual NEG NEG PN SOFT 72Hour 72Hour Comment: Test developed and characteristics deter mined by [facility]. See Compliance Statement B : [employer]/CS Performed by [facility], [address] [place] [id number] [email or web address], Trace Islas MD - Lab . Director Specimen Anatomical Collection Method Collection Time Receive d Time (Source) Location / / Volume Laterality 02/24/2018 3:16 PM 8 7:59 [employer] PM [employer] Narrative PN SOFT - 03/01/2018 11:34 PM [employer] Performed at [facility] [address] [place] [address] CLIA number [id number] Cornelia Richards MD LAB_1 Performing Organization Address City/[facility]/ZIP Code Phon e Number PN SOFT [address] [place] [address] CRP - C Reactive Protein (02/24/2018 3:16 PM [employer]) athologist Signature CRP <0.5 0.0 - 0.5 PN SOFT mg/dL Specimen Anatomical Collection Method Collection Time Receive d Time (Source) Location / / Volume Laterality 02/24/2018 3:16 PM 8 3:16 [employer] PM [employer] Narrative PN SOFT - 02/24/2018 4:06 PM [employer] Performed at [facility], [address] [place] [id number] CLIA number [id number] Cornelia Richards MD LAB_1 Performing Organization Address City/[facility]/ZIP Code Phon e Number PN SOFT [address] [place] [address] ESR - Sedimentation Rate (02/24/2018 3:16 PM [employer]) Analysis Performed At Patho logist Time Signature Sedimentation Rate 4 0 - 20 PN SOFT mm/hr Specimen Anatomical Collection Method Collection Time Receive d Time (Source) Location / / Volume Laterality 02/24/2018 3:16 PM 8 3:16 [employer] PM [employer] Narrative PN SOFT - 02/24/2018 4:06 PM [employer] Performed at [facility], [address] [place] [address] CLIA number [id number] Cornelia Richards MD LAB_1 Performing Organization Address City/State/ZIP Code Phon e Number PN SOFT [address] [place] [address] [phone] Centromere YRN IgG (02/24/2018 3:16 PM [employer]) P athologist Signature Centromere 0 0 - 40 PN SOFT Antibody IgG AU/mL Comment: INTERPRETIVE INFORMATION: Centromere Ab, IgG ??29 AU/mL or Less ............. Negati ve ??30 - 40 AU/mL ................ Equivo jenifer ??41 AU/mL or Greater .......... Positi ve When detected by this multiplex bead ass ay, the presence of centromere antibodies is mainly associat ed with CREST syndrome, a variant of systemic sclerosi s (SSc). These antibodies target the centromere B, a do minant antigen of the centromeric complex associated with the centromere pattern observed in antinuclear antibody (RAIMUNDO) testing by [facility]. Centromere antibodies may also be s een in a varying percentage of patients with other autoim mune diseases, including diffuse cutaneous SSc, Raynaud syndrome, interstitial pulmonary fibrosis, autoimm une liver disease, systemic lupus erythematosus (SLE) and r heumatoid arthritis (RA). A negative result indicates no detectabl e IgG antibodies to centromere B. If the result is negative but clinical suspicion for SSc is strong, consider te sting for RAIMUNDO by IFA along with other antibodies associat ed with SSc, including Scl-70, U3-FOREST FIREFIGHTER, PM/Scl, or Th/ To. Performed by [facility], [address] [place], [place] [address], [place] [address] [email or web address], Trace Islas MD - Lab . Director Specimen Anatomical Collection Method Collection Time Receive d Time (Source) Location / / Volume Laterality 02/24/2018 3:16 PM 8 5:31 [employer] PM [employer] Narrative PN SOFT - 02/27/2018 5:53 PM [employer] Performed at [facility] [address] [facility] [place] [address] CLIA number [id number] Cornelia Richards MD LAB_1 Performing Organization Address City/State/ZIP Code Phon e Number PN SOFT [address] [place] [address] [phone] Scleroderma (Scl-70) (DHEERAJ) Antibody, IgG (02/24/2018 3:16 PM [employer]) athologist Signature Scleroderma 0 0 - 40 PN SOFT (Scl-70) Ab AU/mL Comment: INTERPRETIVE INFORMATION: Scleroderma (S cl-70) (DHEERAJ) Ab, IgG ??29 AU/mL or Less ............. Negati ve ??30 - 40 AU/mL ................ Equivo jenfier ??41 AU/mL or Greater .......... Positi ve The presence of Scl-70 antibodies (also referred to as topoisomerase I, cassie-I or TASNEEM) is consi dered diagnostic for systemic sclerosis (SSc). Scl-70 ant ibodies alone are detected in about 20 percent of SSc jose ents and are associated with the diffuse form of the disease, which may include specific organ involvement and p oor prognosis. Scl-70 antibodies have also been reporte d in a varying percentage of patients with systemic lup us erythematosus (SLE). Scl-70 (cassie-1) is a DNA binding protein and anti-DNA/DNA complexes in the sera of SL E patients may bind to cassie-I, leading to a false-positive r esult. The presence of Scl-70 antibody in sera may also be d ue to contamination of recombinant Scl-70 with DNA derived f rom cellular material used in immunoassays. Strong cl inical correlation is recommended if both Scl-70 and dsDNA antibodies are detected. Negative results do not necessarily rule out the presence of SSc. If clinical suspicion remains, c onsider further testing for centromere, RNA polymerase I II and U3-FOREST FIREFIGHTER, PM/Scl, or Th/To antibodies. Performed by [facility], [address] [place] [id number] [email or web address], Trace Islas MD - Lab . Director Specimen Anatomical Collection Method Collection Time Receive d Time (Source) Location / / Volume Laterality 02/24/2018 3:16 PM 8 5:31 [employer] PM [employer] Narrative PN SOFT - 02/26/2018 12:37 PM [employer] Performed at [facility] [address] [place] [id number] CLIA number [id number] Cornelia Richards MD LAB_1 Performing Organization Address [facility] e Number PN SOFT [address] [place] [address] C4 - C4 Complement (02/24/2018 3:16 PM [employer]) athologist Signature C4 Complement 36 15 - 57 PN SOFT mg/dL Specimen Anatomical Collection Method Collection Time Receive d Time (Source) Location / / Volume Laterality 02/24/2018 3:16 PM 8 5:29 [employer] PM [employer] Narrative PN SOFT - 02/24/2018 5:49 PM [employer] Performed at [address] [address] CLIA number [id number] Cornelia Richards MD LAB_1 Performing Organization Address [facility] e Number PN SOFT [address] [place] [address] C3 - C3 Complement (02/24/2018 3:16 PM [employer]) athologist Signature C3 Complement 130 83 - 193 PN SOFT mg/dL Specimen Anatomical Collection Method Collection Time Receive d Time (Source) Location / / Volume Laterality 02/24/2018 3:16 PM 8 5:29 [employer] PM [employer] Narrative PN SOFT - 02/24/2018 5:49 PM [employer] Performed at [address] [place] [address] CLIA number [id number] Cornelia Richards MD LAB_1 Performing Organization Address [facility] Phon e Number PN SOFT [address] [place] [address] DNA - Anti-dsDNA Antibody (02/24/2018 3:16 PM [employer]) athologist Signature Anti-DNA Ab see below Negative PN SOFT Comment: <1:10 Negative Specimen Anatomical Collection Method Collection Time Receive d Time (Source) Location / / Volume Laterality 02/24/2018 3:16 PM 8 5:33 [employer] PM [employer] Narrative PN SOFT - 02/25/2018 2:34 PM [employer] Performed at [address] [address] CLIA number [id number] Cornelia Richards MD LAB_1 Performing Organization Address [facility] Phon e Number PN SOFT [address] [place] [address] CK, Total (02/24/2018 3:16 PM [employer]) athologist [facility] Creatine Kinase 141 29 - 168 PN SOFT U/L Specimen Anatomical Collection Method Collection Time Receive d Time (Source) Location / / Volume Laterality 02/24/2018 3:16 PM 8 3:16 [employer] PM [employer] Narrative PN SOFT - 02/24/2018 4:06 PM [employer] Performed at [facility], [address] [place] [address] CLIA number [id number] Cornelia Richards MD LAB_1 Performing Organization Address [facility] Phon e Number PN SOFT [address] [place] [address] Extractable Nuclear Antigen Antibodies (02/24/2018 3:16 PM [employer]) athologist Signature DHEERAJ To FOREST FIREFIGHTER 0 0 - 40 PN SOFT Antibody AU/mL Comment: INTERPRETIVE INFORMATION: Ribonucleic Pr otein (DHEERAJ)Antibody, IgG ??29 AU/mL or Less ............. Negati ve ??30 - 40 AU/mL ................ Equivo jenifer ??41 AU/mL or Greater .......... Positi ve FOREST FIREFIGHTER antibody is seen in 95-100 percent o f mixed connective tissue disease and is considered specifi c for this syndrome if other antibodies are negative; FOREST FIREFIGHTER is also present in 20-30 percent of systemic lupus erythema tosus and 15-25 percent of progressive systemic sclerosi s. FOREST FIREFIGHTER antigens also contain epitopes that are immunolog ically identical to free Hendrickson antigens, therefore, the Leonel h antibody response must be considered when interpreting FOREST FIREFIGHTER results. Performed by [facility], [address] [place] [id number] [email or web address], Trace Islas MD - Lab . Director DHEERAJ To Hendrickson (Sm) Antibody 0 0 - 40 AU/mL PN SOFT Comment: INTERPRETIVE INFORMATION: HENDRICKSON (DHEERAJ) Ab , IgG ??29 AU/mL or Less ............. Negati ve ??30 - 40 AU/mL ................ Equivo jenifer ??41 AU/mL or Greater .......... Positi ve Hendrickson antibody is very specific for syst emic lupus erythematosus (SLE) but only occurs in 3 0-35% of SLE cases. The presence of antibodies to Hendrickson is o ften associated with renal disease. DHEERAJ To SSA (Ro) Antibody 8 0 - 40 AU/mL PN SOFT Comment: INTERPRETIVE INFORMATION: SSA-52 (Ro52) (DHEERAJ) Antibody, IgG ??29 AU/mL or Less ............. Negati ve ??30 - 40 AU/mL ................ Equivo jenifer ??41 AU/mL or Greater .......... Positi ve SSA-52 (Ro52) and/or SSA-60 (Ro60) antib odies are associated with a diagnosis of Sjogren s yndrome, systemic lupus erythematosus (SLE), and systemic sclerosis. SSA-52 antibody overlaps significantly with the major SSc-related antibodies. SSA-52 (Ro52) antibody occur s frequently in patients with inflammatory myopathies, o ften in the presence of interstitial lung disease. SSA 60 (Ro) (DHEERAJ) Antibody, IgG 0 0 - 40 AU/mL PN SOFT Comment: REFERENCE INTERVAL: SSA-60 (Ro60) (DHEERAJ) Antibody, IgG ??29 AU/mL or Less ............. Negati ve ??30 - 40 AU/mL ................ Equivo jenifer ??41 AU/mL or Greater .......... Positi ve DHEERAJ To SSB (La) Antibody 0 0 - 40 AU/mL PN SOFT Comment: INTERPRETIVE INFORMATION: SSB (La) (DHEERAJ) Ab, IgG ??29 AU/mL or Less ............. Negati ve ??30 - 40 AU/mL ................ Equivo jenifer ??41 AU/mL or Greater .......... Positi ve SSB (La) antibody is seen in 50-60% of S jogren syndrome cases and is specific if it is the only DHEERAJ antibody present. 15-25% of patients with systemi c lupus erythematosus (SLE) and 5-10% of patient s with progressive systemic sclerosis (PSS) also have this antibody. Specimen Anatomical Collection Method Collection Time Receive d Time (Source) Location / / Volume Laterality 02/24/2018 3:16 PM 8 5:31 [employer] PM [employer] Narrative PN SOFT - 02/26/2018 12:37 PM [employer] Performed at [facility] [address] [place] [address] CLIA number [id number] Cornelia Richards MD LAB_1 Performing Organization Address City/State/[facility] Code Phon e Number PN SOFT [address] [place] [address] [phone] documented in this encounter Visit Diagnoses Diagnosis Positive RAIMUNDO (antinuclear antibody) - Pr imary Other and unspecified nonspecific immuno logical findings Pleurisy Pleurisy without mention of effusion or current tuberculosis Osteoporosis without current pathologica l fracture, unspecified osteoporosis type (HRC) Chronic bilateral low back pain without sciatica Crohn's disease with complication, unspe cified gastrointestinal tract location (HRC) Chest wall pain Painful respiration Positive RAIMUNDO (antinuclear antibody) Other and unspecified nonspecific immuno logical findings Pleurisy Pleurisy without mention of effusion or current tuberculosis Osteoporosis without current pathologica l fracture, unspecified osteoporosis type (HRC) documented in this encounter Care Teams Toll Ticket Clerk Relationship Specialty Start Date End Date Steffanie Hitchcock MD PCP - General Family Practice 02/10/181999 [place] [address] documented as of this encounter
--- OUTSIDE RECORDS SUMMARY | 2021-10-24 11:57 | XMS_ITS | Encounter Summary ---
:1955 Author Organization [place] Address [address] [place] [address] Care Team Providers Name Role Phone [place] Tam MD Primary Care Provider Sheri Casey MD Unavailable Alphonso Billy MD Unavailable Roland Holt MD Unavailable Amita Ryan MD Unavailable Sid Lilly MD Unavailable [phone] Neda Boland RN Unavailable Reason for Visit Reason Comments RECHECK Follow up medication Encounter Details Date Type Department Care Team Description 07/18/2017 Office Visit [facility] Will Harper MD [facility] [address] [place] [address] SE [facility] syndrome (RLS) [place] 276 (Primary Dx) [address] [place] [phone] Social History Tobacco Use Types Packs/Day Years [...] Pulse 85 07/18/2017 10:29 AM CDT Temperature - - Respiratory Rate 16 07/18/2017 10:29 AM CDT Oxygen Saturation 98% 07/18/2017 10:29 AM CDT Inhaled Oxygen Concentration - - Weight 50.8 kg (112 lb) 07/18/2017 10:29 AM CDT Height 154.9 cm (5' 1) 07/18/2017 10:29 AM CDT Body Mass Index 21.16 07/18/2017 10:29 AM CDT documented in this encounter Patient Instructions Patient InstructionsEvChasity cee MA - 07/18/2017 10:30 AM CDT Your BMI is Body mass index is 21.16 kg/(m^2). Weight management is a personal decision. If you are interested in exploring weight loss strategies,the following discussion covers the approaches that may be successful. Body mass index (BMI) is one way to tell whether you are at a healthy weight, overweight, or obese. It measures your weight in relation to your height. A BMI of 18.5 to 24.9 is in the healthy range. A person with a BMI of 25 to 29.9 is considered overweight, and someone with a BMI of 30 or greater is considered obese. More than two-thirds of [place] adults are considered overweight or obese. Being overweight or obese increases the risk for further weight gain. Excess weight may lead to heart disease and diabetes. Creating and following plans for healthy eating and physical activity may help you improve your health. Weight control is part of healthy lifestyle and includes exercise, emotional health, and healthy eating habits. Careful eating habits lifelong are the mainstay of weight control. Though there are significant health benefits from weight loss, long-term weight loss with diet alone may be very difficult to achieve- studies show long-term success with dietary management in less than 10% of people. Attaining a healthy weight may be especially difficult to achieve in those with severe obesity. In some cases, medications, devices and surgical management might be considered. What can you do? If you are overweight or obese and are interested in methods for weight loss, you should discuss this with your provider. ??? Consider reducing daily calorie intake by 500 calories. ??? Keep a food journal. ??? Avoiding skipping meals, consider cutting portions instead. Diet combined with exercise helps maintain muscle while optimizing fat loss. Strength training is particularly important for building and maintaining muscle mass. Exercise helps reduce stress, increaseenergy, and improves fitness. Increasing exercise without diet control, however, may not burn enoughcalories to loose weight. ??? Start walking three days a week 10-20 minutes at a time ??? Work towards walking thirty minutes five days a week ??? Eventually, increase the speed of your walking for 1-2 minutes at time In addition, we recommend that you review healthy lifestyles and methods for weight loss available through the National Institutes of Health patient information sites: http://win.niddk.nih.gov/publications/index.htm And look into health and wellness programs that may be available through your health insurance provider, employer, local community center, or saul club. documented in this encounter Progress Notes Will Harper MD - 07/18/2017 11:03 AM CDT SLEEP MEDICINE CLINIC NOTE [facility] Maria E Coley 61 year old female : 1955 PRIMARY CARE PROVIDER: [place] Tam DATE OF SERVICE: 07/18/2017 REASON FOR VISIT: Followup of restless legs syndrome. 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 She was last seen in our clinic approximately 2 months ago and comes in today for followup. The patient had been on ropinirole for restless leg syndrome for a number of years but wanted to get herself off this medication as she felt her fatigue, palpitations and night sweats may be related to this medication. She was at that time taking1 mg of ropinirole at night. She was advised to initiate gabapentin about 2 hours prior to her bedtime starting at 100 mg dose and increase it over a few weeks up to 300 mg and at the same time wean herself off ropinirole. She reports she was able to get down to 0.25 mg of ropinirole and up to 300 mg of gabapentin but then started noticing constipation which she attributed to gabapentin. She reduced the dose of gabapentin to 200 and continues to take 0.25 mg of ropinirole. With this she reports her symptoms are well controlled and she is happy to continue this combination of medications. She reports going to bed between 9:00 and 10:00 p.m. It takes her just a few minutes to fall asleep. She reports waking up once or twice through the night, either to use the bathroom or because of pain in her shoulders due to rotator cuff injuries. It is easy for her to go back to sleep. She finally wakes up spontaneously between 6:30 and 7:30 a.m. She does not always feel rested upon awakening and takes a nap in the day, mostly lying down to rest and not able to fall asleep. She takes her ropinirole and gabapentin at about 8:00 p.m., approximately 1-2 hours prior to bedtime. She does not report any significant symptoms of restless leg syndrome with this combination of medications. Besides this, no significant changes have occurred to her sleep or health in general since she was last seen in our clinic. ASSESSMENT AND PLAN: Restless leg syndrome. Symptoms appear to be well controlled with 200 mg of gabapentin and 0.25 mg of ropinirole. The patient does not have any significant side effects of these medications. She is willing to continue it on a routine basis. She was advised to take the medications r egularly. She was advised to avoid any sleep deprivation. She will be seen in our clinic on an annual basis. I spent a total of 25 minutes face to face with Maria E Coley during today's office visit. Over50% of this time was spent counseling the patient and/or coordinating care regarding their sleep disorder. Will Harper MD Toll Service Observerbagel maker Pulmonary, Critical Care and Sleep Medicine [facility] Pager: [phone] MT: [place] Name: MARIA E COLEY Account: [id number] : 1955 Visit Date: 07/18/2017 Document: [id number] Will Harper MD - 07/18/2017 10:30 AM CDT This office note has been dictated. Will Harper documented in this encounter Plan of Treatment Not on filedocumented as of this encounter Visit Diagnoses Diagnosis Restless legs syndrome (RLS) - Primary documented in this encounter Additional Health Concerns Assessment Noted Time PHQ-9 Depression Total Score: 3 01/28/2017 10:28 AM CS T documented as of this encounter Care Teams Acoustical Tile Patternmaker Relationship Specialty Start Date End Date [place] Tam, PCP - General Family Practice 07/23/[address] [place] [address] [place] 4 [place], [place] [phone] Sheri [place] MD Pulmonary Disease 07/23/[address] [facility] 276 [place], [place] [phone] Alphonso Billy MD Cardiology 08/12/[address] 1902[address] Roland Holt MD Resident Student in [facility] 05/12/15 09/24/18 health [facility] education/training program Amita Ryan MD MD Internal Medicine 12/19/15 909 [facility] [id number] [place], [place] [id number] Sid Lilly MD Orthopaedic Surgery 02/22/16 MD Alivia [facility] [address] [place], [place] [address] Neda Boland, RN Nurse Coordinator Neurology 02/23/16 09/01/18 documented as of this encounter
--- OUTSIDE RECORDS SUMMARY | 2021-10-24 11:57 | XMS_ITS | Encounter Summary ---
:1955 Author Organization [place] Address [address] [place] [address] Care Team Providers Name Role Phone [place] Tam MD Primary Care Provider Sheri Casey MD Unavailable Roland Holt MD Unavailable Amita Ryan MD Unavailable Sid Lilly MD Unavailable [phone] Neda Boland RN Unavailable Reason for Visit Reason Onset Date Comments Pt. Information/instruction 08/18/2018 Encounter Details Date Type Department Care Team Description 08/18/2018 Telephone [facility] Primary Care [place] Tam. Sybil Kennedy MD Information/instruction [address] [place] [phone] Social History Tobacco Use Types Packs/Day Years Used Date Former Smoker Cigarettes 1 18 11/11/1972 - 0 06/26/1981 Smokeless Tobacco: Former User Q uit: 09/20/1991 Alcohol Use Standard Drinks/Week Comments No 0 (1 standard drink = 0.6 oz pure alcoho l) Sex Assigned at Date Recorded Not on file documented as of this encounter Miscellaneous Notes Telephone Encounter - Nicolasa Steven - 08/18/2018 4:22 PM CDT Called Kristina back Nicolasa Steven on 08/18/2018 at 4:22 PM Telephone Encounter - Domínguez, Kyla - 08/18/2018 4:06 PM CDT [facility] Call Center Phone Message May a detailed message be left on voicemail: yes Reason for Call: Symptoms or Concerns If patient has red-flag symptoms, warm transfer to triage line Current symptom or concern: Kristina called from respiratory care to speak with patients PCP or nurse regarding this patient. He stated he had received a discontinue for this patients oxygen. Would like to know if it needs to be picked up or if there should be an overnight oxsymmetry to make sure her oxygen levels do not drop. Please call kristina. Action Taken: Message routed to: [facility] P[facility] documented in this encounter Plan of Treatment Not on filedocumented as of this encounter Visit Diagnoses Not on filedocumented in this encounter Additional Health Concerns Assessment Noted Time PHQ-9 Depression Total Score: 3 01/28/2017 10:28 AM CS T documented as of this encounter Care Teams Field Project Manager Relationship Specialty Start Date End Date [place] Tam, PCP - General Family Practice 07/23/[address] [place] [address] 4 [place], [place] [phone] Sheri [place] MD Pulmonary Disease 07/23/14 420 [facility] 276 [place], [place] [address] Roland Holt MD Resident Student in [facility] 05/12/15 09/24/18 [facility] education/training program Amita Ryan MD MD Internal Medicine 12/19/15 909 [facility] [id number] [place] [address] Sid Lilly MD Orthopaedic Surgery 02/22/16 MD Alivia [address] [place], [place] [address] Neda Boland, NANDINI Nurse Coordinator Neurology 02/23/16 09/01/18 documented as of this encounter
--- OUTSIDE RECORDS SUMMARY | 2021-10-24 11:57 | XMS_ITS | Encounter Summary ---
:1955 Author Organization [place] Address [address] [place] [address] Care Team Providers Name Role Phone [place] Tam MD Primary Care Provider Sheri [place] MD Unavailable Roland Holt MD Unavailable Amita Ryan MD Unavailable Sid Lilly MD Unavailable [phone] Neda Boland RN Unavailable Reason for Visit Reason Onset Date Comments Call Back 08/01/2018 question Encounter Details Date Type Department Care Team Description 08/01/2018 Documentation Only [facility] Primary [place] Tam Ca ll Back (question) Care Clinic Teresa Kennedy MD [address] [place] [phone] Social History Tobacco Use Types Packs/Day Years [...] documented as of this encounter Care Teams Back Hanger Relationship Specialty Start Date End Date [place] Tam, PCP - General Family Practice 07/23/[address] [place] [address] FL 4 [place], [place] [phone] Sheri [place] MD Pulmonary Disease 07/23/[address] [facility] 276 [place] [address] Roland Holt MD Resident Student in [facility] 05/12/15 09/24/18 health care education/training program Amita Ryan MD MD Internal Medicine 12/19/15 909 [facility] [id number] [place], [place] [id number] Sid Lilly MD Orthopaedic Surgery 02/22/16 MD Alivia [facility] [address] [place], [place] [phone] Neda Boland, NANDINI Nurse Coordinator Neurology 02/23/16 09/01/18 documented as of this encounter
--- OUTSIDE RECORDS SUMMARY | 2021-10-24 11:57 | XMS_ITS | Encounter Summary ---
:1955 Author Organization [place] Address [address] [place] [address] Care Team Providers Name Role Phone [place] Tam MD Primary Care Provider Sheri Casey MD Unavailable Roland Holt MD Unavailable Amita Ryan MD Unavailable Sid Lilly MD Unavailable [phone] Neda Boland RN Unavailable Reason for Visit Reason Onset Date Comments Forms 08/07/2018 DC o2 Encounter Details Date Type Department Care Team Description 08/07/2018 [facility] Primary Care [place] Tam MD Forms (DC o2) [address] [place] [phone] Social History Tobacco Use Types Packs/Day Years Used Date Former Smoker Cigarettes 1 18 11/11/1972 - 0 06/26/1981 Smokeless Tobacco: Former User Q uit: 09/20/1991 Alcohol Use Standard Drinks/Week Comments No 0 (1 standard drink = 0.6 oz pure alcoho l) Sex Assigned at Date Recorded Not on file documented as of this encounter Miscellaneous Notes Telephone Encounter - Riemersma, Nicolasa - 08/07/2018 10:28 AM CDT Faxed the discontinue order for oxygen to [place]. Faxed to . documented in this encounter Plan of Treatment Not on filedocumented as of this encounter Visit Diagnoses Not on filedocumented in this encounter Additional Health Concerns Assessment Noted Time PHQ-9 Depression Total Score: 3 01/28/2017 10:28 AM CS T documented as of this encounter Care Teams Marble Cleaner Relationship Specialty Start Date End Date [place] Tam, PCP - General Family Practice 07/23/[address] [place] [address] FL 4 [place], [place] [address] Sheri [place] MD Pulmonary Disease 07/23/[address] [place] [address] [facility] 276 [place], [place] [address] Roland Holt MD Resident Student in [facility] [facility] 05/12/15 09/24/18 health [facility] education/training program Amita Ryan MD MD Internal Medicine 12/19/[address] [place] [address] [id number] [place], [place] [address] Sid Lilly MD Orthopaedic Surgery 02/22/16 MD Alivia [address] [place], [place] [address] Neda Boland, NANDINI Nurse Coordinator Neurology 02/23/16 09/01/18 documented as of this encounter
--- OUTSIDE RECORDS SUMMARY | 2021-10-24 11:57 | XMS_ITS | Encounter Summary ---
:1955 Author Organization [place] Address [facility] [place] [address] Care Team Providers Name Role Phone [place] Tam MD Primary Care Provider Sheri Casey MD Unavailable Roland Holt MD Unavailable Amita Rayn MD Unavailable Sid Lilly MD Unavailable [phone] Neda Boland RN Unavailable Encounter Details Date Type Department Care Team Description 08/01/2018 Medical Correspondence [facility] Scan, PROVIDER LETTER Health Info Mgmt Non-Provider Srvcs [address] [place] [address] Social History Tobacco Use Types Packs/Day Years [...] documented as of this encounter Care Teams Home Improvement Installer Relationship Specialty Start Date End Date [place] Tam, PCP - General Family Practice 07/23/14 [address] [facility] [place] 4 [place] [address] Sheri [place] MD Pulmonary Disease 07/23/14 [address] [address] [facility] 276 [place] [address] Roland Holt MD Resident Student in [facility] 05/12/15 09/24/18 [facility] education/training program Amita Ryan MD MD Internal Medicine 12/19/15 9[address] [facility] [id number] [place] [address] Sid Lilly MD Orthopaedic Surgery 02/22/16 MD Alivia [facility] [facility] [address] [place], [place] [phone] Neda Boland, RN Nurse Coordinator Neurology 02/23/16 09/01/18 documented as of this encounter
--- OUTSIDE RECORDS SUMMARY | 2021-10-24 11:57 | XMS_ITS | Encounter Summary ---
:1955 Author Organization [email or web address] Address [address], [place] [address] Care Team Providers Name Role Phone Steffanie Hitchcock MD Primary Care Provider [phone] Encounter Details Date Type Department Care Team Description 02/25/2018 Notes/Orders [facility] 3800 Krystin Richards MD Rheumatology [address] [facility] [address] [place] [address] [place] [address] [phone] Social History Tobacco Use Types Packs/Day Years Used Date Smoking Tobacco: Never Assessed Sex Assigned at Date Recorded Not on file documented as of this encounter Plan of Treatment Not on filedocumented as of this encounter Visit Diagnoses Not on filedocumented in this encounter Care Teams Rehab Director Occupational Therapist Relationship Specialty Start Date End Date Steffanie Hitchcock MD PCP - General Family Practice 02/10/181999 [place] [address] documented as of this encounter
--- OUTSIDE RECORDS SUMMARY | 2021-10-24 11:57 | XMS_ITS | Encounter Summary ---
:1955 Author Organization [place] Address [address] [place] [address] Care Team Providers Name Role Phone [place] Tam MD Primary Care Provider Sheri [place] MD Unavailable Alphonso Billy MD Unavailable Roland Holt MD Unavailable Amita Ryan MD Unavailable Sid Lilly MD Unavailable [phone] Neda Boland RN Unavailable Encounter Details Date Type Department Care Team Description 06/22/2017 Orders Only [facility] Endocrinolo Laisha Moraes MD [address] [place] [address] [place], [place] [address] [phone] Social History Tobacco Use Types Packs/Day Years [...] documented as of this encounter Care Teams Phone Technician Relationship Specialty Start Date End Date [place] Tam, PCP - General Family Practice 07/23/[address] [place] [address] [place] 4 [place], [place] [address] Sheri [place] MD Pulmonary Disease 07/23/14 420 [facility] 276 [place], [place] [address] Alphonso Billy MD Cardiology 08/12/[address] [place] [phone] Roland Holt MD Resident Student in [facility] 05/12/15 09/24/18 [facility] education/training program Amita Ryan MD MD Internal Medicine 12/19/[address] [place] [address] [id number] [place], [place] [phone] Sid Lilly MD Orthopaedic Surgery 02/22/16 MD Alivia [facility] [address] [place], [place] [phone] Neda Boland, NANDINI Nurse Coordinator Neurology 02/23/16 09/01/18 documented as of this encounter
--- OUTSIDE RECORDS SUMMARY | 2021-10-24 11:57 | XMS_ITS | Encounter Summary ---
:1955 Author Organization [facility] Address [address] [place] [address] Care Team Providers Name Role Phone Steffanie Hitchcock MD Primary Care Provider [phone] Encounter Details Date Type Department Care Team Description 02/24/2018 Lab Visit [facility] 3850 Positive RAIMUNDO (antinuclear antibody); Laboratory Pleurisy; [address] Osteoporosis without current pathological fracture, [place] [address] Social History Tobacco Use Types Packs/Day Years Used Date Smoking Tobacco: Never Assessed Sex Assigned at Date Recorded Not on file documented as of this encounter Plan of Treatment Not on filedocumented as of this encounter Procedures Procedure Name Priority Date/Time Associated Diagnosis Comme nts URINALYSIS Routine 02/24/2018 3:19 PM Positive RAIMUNDO Results f or this ROUTINE(MICRO IF VIDEO GAME DEVELOPER (antinuclear procedure a re in POS) antibody) the results section. ELP, UR PROT RANDOM Routine 02/24/2018 3:19 PM Positive RAIMUNDO Re sults for this VIDEO GAME DEVELOPER (antinuclear procedure are i n antibody) the results Osteoporosis without section . current pathological fracture, unspecified osteoporosis type EXTRACTABLE NUCLEAR Routine 02/24/2018 3:16 PM Positive RAIMUNDO Re sults for this ANTIGEN ANTIBODIES VIDEO GAME DEVELOPER (antinuclear procedure are in antibody) the results Pleurisy section. CRYOGLOBULIN, Routine 02/24/2018 3:16 PM Positive RAIMUNDO Results for this QUALITATIVE (12 HOUR VIDEO GAME DEVELOPER (antinuclear procedu re are in FAST REQUIRED) antibody) the results Osteoporosis without section . current pathological fracture, unspecified osteoporosis type CENTROMERE YRN IGG Routine 02/24/2018 3:16 PM Positive RAIMUNDO Res ults for this VIDEO GAME DEVELOPER (antinuclear procedure are i n antibody) the results Pleurisy section. SCLERODERMA (SCL-70) Routine 02/24/2018 3:16 PM Positive RAIMUNDO R esults for this (DHEERAJ) ANTIBODY, IGG VIDEO GAME DEVELOPER (antinuclear procedur e are in antibody) the results Pleurisy section. ELP, CASCADE, SERUM Routine 02/24/2018 3:16 PM Positive RAIMUNDO Re sults for this VIDEO GAME DEVELOPER (antinuclear procedure are i n antibody) the results Osteoporosis without section . current pathological fracture, unspecified osteoporosis type DNA DOUBLE STRANDED Routine 02/24/2018 3:16 PM Positive RAIMUNDO Re sults for this ANTIBODY VIDEO GAME DEVELOPER (antinuclear procedure are i n antibody) the results Pleurisy section. C4 COMPLEMENT Routine 02/24/2018 3:16 PM Positive RAIMUNDO Results for this VIDEO GAME DEVELOPER (antinuclear procedure are i n antibody) the results Pleurisy section. C3 COMPLEMENT Routine 02/24/2018 3:16 PM Positive RAIMUNDO Results for this VIDEO GAME DEVELOPER (antinuclear procedure are i n antibody) the results Pleurisy section. C-REACTIVE PROTEIN Routine 02/24/2018 3:16 PM Positive RAIMUNDO Res ults for this VIDEO GAME DEVELOPER (antinuclear procedure are i n antibody) the results Pleurisy section. CK, TOTAL Routine 02/24/2018 3:16 PM Positive RAIMUNDO Results f or this VIDEO GAME DEVELOPER (antinuclear procedure are i n antibody) the results Pleurisy section. ESR Routine 02/24/2018 3:16 PM Positive RAIMUNDO Results f or this VIDEO GAME DEVELOPER (antinuclear procedure are i n antibody) the results Pleurisy section. documented in this encounter Results (ABNORMAL) ELP, Urine Protein Random (02/24/2018 3:19 PM VIDEO GAME DEVELOPER) P athologist Signature T. Protein,Ur 22 (H) 0 - 14 PN SOFT Random mg/dl Comment: Performed at [facility], [address] [place] [address] ??[phone] Albumin, Urine 100.0 % PN SOFT Alpha [...] out by SEE BELOW PN SOFT Comment: [facility] Performed at [facility], [address] [place] [address] ??[address] CLIA Number [id number] Specimen Anatomical Collection Method Collection Time Receive d Time (Source) Location / / Volume Laterality Urine specimen 02/24/2018 3:19 PM 018 8:06 (specimen) VIDEO GAME DEVELOPER PM VIDEO GAME DEVELOPER Cornelia Richards MD LAB_1 Performing Organization Address [facility] Phon e Number PN SOFT [address] [place] [address] [phone] (ABNORMAL) Urinalysis Routine(Micro If Pos) (02/24/2018 3:19 PM VIDEO GAME DEVELOPER) Patholo gist Method Time Signature Urine Type [...] U Specific >=1.030 1.005 - PN SOFT Bryant 1.030 Urobilinogen Negative Negative PN SOFT Urine Eu/dL Specimen Anatomical Collection Method Collection Time Receive d Time (Source) Location / / Volume Laterality Urine 02/24/2018 3:19 PM 8 3:19 VIDEO GAME DEVELOPER PM VIDEO GAME DEVELOPER Narrative PN SOFT - 02/24/2018 3:22 PM VIDEO GAME DEVELOPER Performed at [facility], [address] [place] [address] CLIA number [id number] Cornelia Richards MD LAB_1 Performing Organization Address [facility] Phon e Number PN SOFT [address] [place] [address] (ABNORMAL) ELP, Henry, Serum (02/24/2018 3:16 PM VIDEO GAME DEVELOPER) athologist Signature Total Protein 6.6 6.4 - 8.3 PN SOFT g/dl Comment: Performed at [facility], [address] [place] [address] ??[address] Albumin 4.3 3.4 - 4.8 g/dl PN [...] out by SEE BELOW PN SOFT Comment: [facility] Performed at [facility], [address] [place] [address] ??[address] CLIA Number [id number] Specimen Anatomical Collection Method Collection Time Receive d Time (Source) Location / / Volume Laterality 02/24/2018 3:16 PM 8 5:29 VIDEO GAME DEVELOPER PM VIDEO GAME DEVELOPER Cornelia Richards MD LAB_1 Performing Organization Address City/State/ZIP Code Phon e Number PN SOFT [address] [place] [address] [phone] CRYGB - Cryoglobulin, Qualitative (02/24/2018 3:16 PM VIDEO GAME DEVELOPER) [facility] gist Method Time Signature Cryoglobulin Qual NEG NEG PN SOFT 72Hour 72Hour Comment: Test developed and characteristics deter mined by [facility]. See Compliance Statement B : [facility]/CS Performed by [facility], [address] [place] [address] [email or web address], Trace Islas MD - Lab . Director Specimen Anatomical Collection Method Collection Time Receive d Time (Source) Location / / Volume Laterality 02/24/2018 3:16 PM 8 7:59 VIDEO GAME DEVELOPER PM VIDEO GAME DEVELOPER Narrative PN SOFT - 03/01/2018 11:34 PM VIDEO GAME DEVELOPER Performed at [facility] [address] CLIA number [id number] Cornelia Richards MD LAB_1 Performing Organization Address [facility]/ZIP Code Phon e Number PN SOFT [address] [place] [address] CRP - C Reactive Protein (02/24/2018 3:16 PM VIDEO GAME DEVELOPER) P athologist Signature CRP <0.5 0.0 - 0.5 PN SOFT mg/dL Specimen Anatomical Collection Method Collection Time Receive d Time (Source) Location / / Volume Laterality 02/24/2018 3:16 PM 8 3:16 VIDEO GAME DEVELOPER PM VIDEO GAME DEVELOPER Narrative PN SOFT - 02/24/2018 4:06 PM VIDEO GAME DEVELOPER Performed at [facility], [address] [place] [address] CLIA number [id number] Cornelia Richards MD LAB_1 Performing Organization Address [facility] Phon e Number PN SOFT [address] [place] [address] ESR - Sedimentation Rate (02/24/2018 3:16 PM VIDEO GAME DEVELOPER) Analysis Performed At [facility] Signature Sedimentation Rate 4 0 - 20 PN SOFT mm/hr Specimen Anatomical Collection Method Collection Time Receive d Time (Source) Location / / Volume Laterality 02/24/2018 3:16 PM 8 3:16 VIDEO GAME DEVELOPER PM VIDEO GAME DEVELOPER Narrative PN SOFT - 02/24/2018 4:06 PM VIDEO GAME DEVELOPER Performed at [facility], [address] [place] [address] CLIA number [id number] Cornelia Richards MD LAB_1 Performing Organization Address [facility] Code Phon e Number PN SOFT [address] [place] [address] Centromere YRN IgG (02/24/2018 3:16 PM VIDEO GAME DEVELOPER) athologist Signature Centromere 0 0 - 40 [...] antibodies associat ed with SSc, including Scl-70, U3-FRAME CARVER SPINDLE, PM/Scl, or Th/ To. Performed by [facility], [address] [place] [address] [email or web address], Trace Islas MD - Lab . Director Specimen Anatomical Collection Method Collection Time Receive d Time (Source) Location / / Volume Laterality 02/24/2018 3:16 PM 8 5:31 VIDEO GAME DEVELOPER PM VIDEO GAME DEVELOPER Narrative PN SOFT - 02/27/2018 5:53 PM VIDEO GAME DEVELOPER Performed at [facility] [address] [place] [address] CLIA number [id number] Cornelia Richards MD LAB_1 Performing Organization Address City/State/ZIP Code Phon e Number PN SOFT [address] [place] [address] Scleroderma (Scl-70) (DHEERAJ) Antibody, IgG (02/24/2018 3:16 PM VIDEO GAME DEVELOPER) athologist Signature Scleroderma 0 0 - 40 [...] for centromere, RNA polymerase I II and U3-FRAME CARVER SPINDLE, PM/Scl, or Th/To antibodies. Performed by [facility], [address] [place] [address] [email or web address], Trace Islas MD - Lab . Director Specimen Anatomical Collection Method Collection Time Receive d Time (Source) Location / / Volume Laterality 02/24/2018 3:16 PM 8 5:31 VIDEO GAME DEVELOPER PM VIDEO GAME DEVELOPER Narrative PN SOFT - 02/26/2018 12:37 PM VIDEO GAME DEVELOPER Performed at [facility] [address] [place] [address] CLIA number [id number] Cornelia Richards MD LAB_1 Performing Organization Address City/State/ZIP Code Phon e Number PN SOFT [address] [place] [address] C4 - C4 Complement (02/24/2018 3:16 PM VIDEO GAME DEVELOPER) athologist Signature C4 Complement 36 15 - 57 PN SOFT mg/dL Specimen Anatomical Collection Method Collection Time Receive d Time (Source) Location / / Volume Laterality 02/24/2018 3:16 PM 8 5:29 VIDEO GAME DEVELOPER PM VIDEO GAME DEVELOPER Narrative PN SOFT - 02/24/2018 5:49 PM VIDEO GAME DEVELOPER [place] [address] CLIA number [id number] Cornelia Richards MD LAB_1 Performing Organization Address [facility] e Number PN SOFT [address] [place] [address] C3 - C3 Complement (02/24/2018 3:16 PM VIDEO GAME DEVELOPER) athologist Signature C3 Complement 130 83 - 193 PN SOFT mg/dL Specimen Anatomical Collection Method Collection Time Receive d Time (Source) Location / / Volume Laterality 02/24/2018 3:16 PM 8 5:29 VIDEO GAME DEVELOPER PM VIDEO GAME DEVELOPER Narrative PN SOFT - 02/24/2018 5:49 PM VIDEO GAME DEVELOPER Performed at [address] [address] CLIA number [id number] Cornelia Richards MD LAB_1 Performing Organization Address [facility] e Number PN SOFT [address] [place] [address] DNA - Anti-dsDNA Antibody (02/24/2018 3:16 PM VIDEO GAME DEVELOPER) athologist Signature Anti-DNA Ab see below Negative PN SOFT Comment: <1:10 Negative Specimen Anatomical Collection Method Collection Time Receive d Time (Source) Location / / Volume Laterality 02/24/2018 3:16 PM 8 5:33 VIDEO GAME DEVELOPER PM VIDEO GAME DEVELOPER Narrative PN SOFT - 02/25/2018 2:34 PM VIDEO GAME DEVELOPER Performed at [address] [address] CLIA number [id number] Cornelia Richards MD LAB_1 Performing Organization Address [facility]/ZIP Code Phon e Number PN SOFT [address] [place] [address] CK, Total (02/24/2018 3:16 PM VIDEO GAME DEVELOPER) athologist Signature Creatine Kinase 141 29 - 168 PN SOFT U/L Specimen Anatomical Collection Method Collection Time Receive d Time (Source) Location / / Volume Laterality 02/24/2018 3:16 PM 8 3:16 VIDEO GAME DEVELOPER PM VIDEO GAME DEVELOPER Narrative PN SOFT - 02/24/2018 4:06 PM VIDEO GAME DEVELOPER Performed at [facility], [facility] [place] [address] CLIA number [id number] Cornelia Richards MD LAB_1 Performing Organization Address [facility] Phon e Number PN SOFT [address] [place] [address] Extractable Nuclear Antigen Antibodies (02/24/2018 3:16 PM VIDEO GAME DEVELOPER) athologist Signature DHEERAJ To FRAME CARVER SPINDLE 0 0 - 40 PN SOFT Antibody AU/mL Comment: INTERPRETIVE INFORMATION: Ribonucleic Pr otein (DHEERAJ)Antibody, IgG ??29 AU/mL or Less ............. Negati ve ??30 - 40 AU/mL ................ Equivo jenifer ??41 AU/mL or Greater .......... Positi ve FRAME CARVER SPINDLE antibody is seen in 95-100 percent o f mixed connective tissue disease and is considered specifi c for this syndrome if other antibodies are negative; FRAME CARVER SPINDLE is also present in 20-30 percent of systemic lupus erythema tosus and 15-25 percent of progressive systemic sclerosi s. FRAME CARVER SPINDLE antigens also contain epitopes that are immunolog ically identical to free Hendrickson antigens, therefore, the Leonel h antibody response must be considered when interpreting FRAME CARVER SPINDLE results. Performed by [facility], [address] [place] [address] [email or web address], Trace Islas MD - Lab . Director [...] Volume Laterality 02/24/2018 3:16 PM 8 5:31 VIDEO GAME DEVELOPER PM VIDEO GAME DEVELOPER Narrative PN SOFT - 02/26/2018 12:37 PM VIDEO GAME DEVELOPER Performed at [facility] [address] [place] [address] CLIA number [id number] Cornelia Richards MD LAB_1 Performing Organization Address City/State/ZIP Code Phon e Number SOFT [address] [place] [address] documented in this encounter Visit Diagnoses Diagnosis Positive RAIMUNDO (antinuclear antibody) Other and unspecified nonspecific immuno logical findings Pleurisy Pleurisy without mention of effusion or current tuberculosis Osteoporosis without current pathologica l fracture, unspecified osteoporosis type (HRC) documented in this encounter Care Teams Debt Collection Specialist Relationship Specialty Start Date End Date Steffanie Hitchcock MD PCP - General Family Practice 02/10/181999 [place] [address] documented as of this encounter
--- OUTSIDE RECORDS SUMMARY | 2021-10-24 11:57 | XMS_ITS | Encounter Summary ---
:1955 Author Organization [facility] Address [address] [place] [address] Care Team Providers Name Role Phone Edison Tam MD Primary Care Provider Sheri Casey MD Unavailable [facility] Holt MD Unavailable Amita Ryan MD Unavailable Sid Lilly MD Unavailable Reason for Visit Reason Onset Date Comments Refill Request 09/14/2018 levothyroxine (SYNTH ROID/LEVOTHROID) 25 MCG tablet Encounter Details Date Type Department Care Team Description 09/14/2018 Refill M [facility] Endocrinolo Laisha Moraes, Refill Request [address] [facility] (levothyroxine 3rd Floor [address] [facility] (SYNTHROID/LEVOTHROID) [place], [place] [address] 25 MCG tablet) [address] [place] [address] (Wo rk) Social History Tobacco Use Types Packs/Day Years Used Date Former Smoker Cigarettes 1 18 11/11/1972 - 0 06/26/1981 Smokeless Tobacco: Former User Q uit: 09/20/1991 Alcohol Use Standard Drinks/Week Comments No 0 (1 standard drink = 0.6 oz pure alcoho l) Sex Assigned at Date Recorded Not on file documented as of this encounter Miscellaneous Notes Telephone Encounter - Krystina Key RN - 09/26/2018 12:28 PM CDT Pt is getting her medical care in [place]. ( my chart message 05-19-18) Will call pharmacy and ask that Rx refill be sent to new PCP. Telephone Encounter - Laisha Moraes MD - 09/26/2018 10:11 AM CDT I thought she was returning to her primary care provider for this. Telephone Encounter - Krystina Key RN - 09/15/2018 4:47 PM CDT levothyroxine (SYNTHROID/LEVOTHROID) 25 MCG tablet Last Written Prescription Date: 09-02-17 Last Fill Quantity: 90, # refills: 3 Last Office Visit : 06-19-17 Future Office visit: none Routing refill request to provider for review/approval because: Per Physician Overdue TSH documented in this encounter Plan of Treatment Not on filedocumented as of this encounter Visit Diagnoses Diagnosis Yossi's thyroiditis Chronic lymphocytic thyroiditis documented in this encounter Additional Health Concerns Assessment Noted Time PHQ-9 Depression Total Score: 3 01/28/2017 10:28 AM CS T documented as of this encounter Care Teams Client Development Consultant Relationship Specialty Start Date End Date Edison Tam MD PCP - General Family Practice 07/23/14 909 [facility] 4 [place], [place] [address] Sheri Casey MD MD Pulmonary Disease 07/23/14 [address] [facility] [address] [place], [place] [address] [facility] Holt MD Resident [facility] 05/12/1509/24 care education/training program Amita Ryan MD MD Internal Medicine 12/19/15 909 [facility] [id number] [place], [place] [address] Sid Lilly MD Orthopaedic Surgery 02/22/16 MD Alivia [facility] [address] [place], [place] [address] documented as of this encounter
--- OUTSIDE RECORDS SUMMARY | 2021-10-24 11:57 | XMS_ITS | Clinical Summary ---
:1955 Author Organization [facility] Address [address] [place] [address] Care Team Providers Name Role Phone Steffanie Hitchcock MD Primary Care Provider [phone] Source Comments You are receiving this document as you are listed as the primary care provider,follow-up provider, or the patient has been referred to you for consultation.This is in compliance with the Medicare and Medicaid EHR Incentive Program,which states Providers who transition their patient to another setting of careor provider of care or refers their patient to another provider of care shouldprovide summarycare record for each transition of care or referral. [facility] Allergies Active Allergy Reactions Severity Noted Date Comments Morphine Rash 02/12/2018 Penicillins Rash 02/12/2018 Sulfa Antibiotics 02/12/2018 Fatigue-re action Medications Medication Sig Dispensed Refills Start Date End Date Status cyanocobalamin 6 01/07/2018 Acti ve (NEIGYIAH75) 1000 MCG/ML injection rOPINIRole (REQUIP) 1 MG TK 1 TO 2 TS PO 3 8 Active tablet HS gabapentin (NEURONTIN) 0 2017 Active 100 MG capsule ALPRAZolam XR (XANAX XR) TK 1 T PO QD 0 12/06/2017 Active 0.5 MG 24 hour release tablet levothyroxine (SYNTHROID) 2 12/18/2017 Active 25 MCG tablet venlafaxine (EFFEXORXR) TK 1 C PO QAM 0 01/01/2018 Active 150 MG 24 hour release capsule buPROPion (WELLBUTRIN XL) Take 150 mg by 0 Active 150 MG 24 hour release mouth daily. tablet predniSONE (DELTASONE) 1 Take 0.25 mg by 0 Active MG tablet mouth daily. Active Problems Problem Noted Date Depression 02/12/2018 Anxiety 02/12/2018 Hypothyroidism 02/12/2018 Migraine 02/12/2018 Osteoporosis 02/12/2018 Crohn's disease 02/12/2018 Raynaud's syndrome 02/12/2018 B12 deficiency 02/12/2018 History of lumbar laminectomy 02/12/2018 Social History Tobacco Use Types Packs/Day Years Used Date Smoking Tobacco: Never Assessed Sex Assigned at Date Recorded Not on file Last Filed Vital Signs Vital Sign Reading Time Taken Comments Blood Pressure 126/79 02/24/2018 1:15 PM [employer] Pulse 90 02/24/2018 1:15 PM [employer] Temperature - - Respiratory Rate - - Oxygen Saturation - - Inhaled Oxygen Concentration - - Weight 53.1 kg (117 lb) 02/24/2018 1:15 PM [employer] Height 153.7 cm (5' 0.5) 02/24/2018 1:15 PM [employer] Body Mass Index 22.47 02/24/2018 1:15 PM [employer] Plan of Treatment Health Maintenance Due Date Last Done Comments Colon Cancer Screening Plan 1955 Due Hep C Screening (Preventive 1955 Services) Medicare Annual Wellness 1955 Visit Mammogram 1955 COVID-19 Vaccine (#1) 05/29/1955 Cholesterol 11/29/1999 Zoster/Shingles (1 of 2) 2004 Pneumococcal 65+ Yrs (1 - 11/29/2019 05/12/2015 PCV) Influenza (#1) 2021 02/10/2020, 12/30/2012, 12/07/2012, Additional history exists DTaP/Tdap/Td (3 - Tdap) 04/09/2023 04/09/2013, 04/06/2008 HepA Aged Out 08/31/2013 No longer eligib le based on patient 's age to complete this topic HepB Aged Out No longer eligib le based on patient 's age to complete this topic Hib Aged Out No longer eligib le based on patient 's age to complete this topic IPV (Polio) Aged Out No longer eligib le based on patient 's age to complete this topic MCV4 Aged Out No longer eligib le based on patient 's age to complete this topic Insurance Payer Benefit Plan / Subscriber ID Effective Dates Phone Addre ss Type Group MEDICA MEDICA PRIME [id number] 2017-Present [phone] Medicare SOLUTION MEDICARE MEDICARE MANAGED [id number] 1984-Present [phone] Medicare CARE MEDICA LISAMARIA E Personal/Family 1955 [phone] (Home) [place] [address] RADHA GONZALEZ Personal/Family 09[birth year]/1947 [address]) [place], [place] [phone] (Work) Care Teams Director Of Program Management Relationship Specialty Start Date End Date Steffanie Hitchcock MD PCP - General Family Practice 02/10/181999 [place] [address]
--- OUTSIDE RECORDS SUMMARY | 2021-10-24 11:57 | XMS_ITS | Encounter Summary ---
:1955 Author Organization [facility] Address [address] [place] [address] Care Team Providers Name Role Phone Edison Tam MD Primary Care Provider Sheri Casey MD Unavailable Alphonso Billy MD Unavailable [facility] Holt MD Unavailable Amita Ryan MD Unavailable Sid Lilly MD Unavailable [phone] Neda Boland RN Unavailable Reason for Visit Reason Comments Medication Refill Encounter Details Date Type Department Care Team Description 11/25/2017 Refill [facility] Sleep Will Harper MD Medication Refill Center [id number] [place] [address] [phone] Social History Tobacco Use Types Packs/Day Years [...] Visit Diagnoses Diagnosis Restless legs syndrome (RLS) documented in this encounter Additional Health Concerns Assessment Noted Time PHQ-9 Depression Total Score: 3 01/28/2017 10:28 AM CS T documented as of this encounter Care Teams Mixer Crane Operator Relationship Specialty Start Date End Date Edison Tam, PCP - General Family Practice 07/23/[address] [place] [address] [place] [address] [address] [place], [place] [address] Sheri Casey MD Pulmonary Disease 07/23/14 420 [facility] [address] [place], [place] [id number] Alphonso Billy MD Cardiology 08/12/[address] [place] [id number] Roland Holt MD Resident Student in [facility] 05/12/15 09/24/18 health care education/training program Amita Ryan MD MD Internal Medicine 12/19/[address] [place] [address] [id number] [place], [place] [address] Sid Lilly MD Orthopaedic Surgery 02/22/16 MD Alivia [facility] [address] [place], [place] [address] Neda Boland, NANDINI Nurse Coordinator Neurology 02/23/16 09/01/18 documented as of this encounter
--- OUTSIDE RECORDS SUMMARY | 2021-10-24 11:57 | XMS_ITS | Encounter Summary ---
:1955 Author Organization [facility] Address [address] [place] [address] Care Team Providers Name Role Phone Edison Tam MD Primary Care Provider Sheri Casey MD Unavailable Alphonso Billy MD Unavailable Roland Holt MD Unavailable Amita Ryan MD Unavailable Sid Lilly MD Unavailable [phone] Neda Boland RN Unavailable Reason for Visit Reason Comments Medication Refill Encounter Details Date Type Department Care Team Description 12/24/2017 Refill [facility] Sleep Will Harper MD Medication Refill Center [id number] [place] [address] 4-1455 [phone] Social History Tobacco Use Types Packs/Day Years [...] documented as of this encounter Care Teams Rn Intake Relationship Specialty Start Date End Date Edison Tam, PCP - General Family Practice 07/23/14 [place] [address] [place] [address] [address] [place], [place] 136155 Sheri Casey MD Pulmonary Disease 07/23/14 420 [facility] [address] [place], [place] [id number] Alphonso Billy MD Cardiology 08/12/[address] [place] [address] Roland Holt MD Resident Student in [facility] 05/12/15 09/24/18 health care education/training program Amita Ryan MD MD Internal Medicine 12/19/[address] [place] [address] [id number] [place], [place] 333405 Sid Lilly MD Orthopaedic Surgery 02/22/16 MD Alivia [facility] [address] [place], [place] [address] Neda Boland, NANDINI Nurse Coordinator Neurology 02/23/16 09/01/18 documented as of this encounter
--- OUTSIDE RECORDS SUMMARY | 2021-10-24 11:57 | XMS_ITS | Encounter Summary ---
:1955 Author Organization [employer] Address [address] [place] [address] Care Team Providers Name Role Phone Steffanie Hitchcock MD Primary Care Provider [phone] Reason for Visit Reason Comments UPDATE Encounter Details Date Type Department Care Team Description 02/25/2018 Telephone [facility] [address] Krystin Richards MD UPDATE Rheumatology [address] [address] [place] [address] [phone] Social History Tobacco Use Types Packs/Day Years Used Date Smoking Tobacco: Never Assessed Sex Assigned at Date Recorded Not on file documented as of this encounter Nursing Notes Mary Anne Bunn MA - 02/25/2018 2:00 PM CST Yes, patient will call back after she has established care with a new dentist. D AND YOUTH PROGRAM ASSISTANT Cornelia Richards MD - 02/25/2018 1:17 PM CST Excellent, thank you. Did you mean to say that Maria E will call us back/update us once she has established care with a dentist in [place] and after they have given her the okay to proceed with Reclast infusion? Thank you Cornelia Richards MD D AND YOUTH PROGRAM ASSISTANT Mary Anne Bunn MA - 02/25/2018 9:46 AM CST I called Maria E and she states that she had all the dental work done that needed to be done and hasn't seen the dentist for approximately 1 year. No upcoming dental work planned. Maria E states that sherrihas had 2 teeth extracted and denies any issues with healing. Maria E states that she has moved and will call back after she has established care with a dentist. I called [place] [facility] at and spoke with Maria Victoria in MRI and they are able to add on the pelvis and the MRI order has been faxedATTN: Maria Victoria at . I also called Maria E back and have asked her to verify with the husbandry technician when she arrives at her appointment that they received the faxed MRI order for the pelvis and shestates that she will do this. D AND YOUTH PROGRAM ASSISTANT Cornelia Richards MD - 02/25/2018 9:21 AM CST Please let patient know the following. I had more time after her visit yesterday to review documentation through endocrinology at [facility]. Reportedly her last Reclast was in 2013. There was one note from the directory compiler that mentioned a dentist had told the patient to hold off on Reclast in 2011 due to concern over the jaw bone healing. Can we asked the patient if she continues to follow with the dentist, if so, how frequently. When was her last visit. Is there plan for any upcomingdental work. Has she had prior tooth extractions or difficulty with jaw healing following oral surgery. If she has not seen a dentist in over 6 months, she does need to reestablish care given we may restart Reclast. Was their plan for any upcoming dental work. I do not think she should get Reclast until we clarify the above. Therefore I have not yet ordered this. Please also let her know we are working on trying to get the MRI of her pelvis done at the same timeof the MRI of the lumbar spine in [place] this Saturday. (Refer to my staff message to nursing pool) Thanks Cornelia Richards MD D AND YOUTH PROGRAM ASSISTANT documented in this encounter Plan of Treatment Not on filedocumented as of this encounter Visit Diagnoses Not on filedocumented in this encounter Care Teams Aquaculture Director Relationship Specialty Start Date End Date Steffanie Hitchcock MD PCP - General Family Practice 02/10/181999 [place] [address] documented as of this encounter
--- OUTSIDE RECORDS SUMMARY | 2021-10-24 11:57 | XMS_ITS | Encounter Summary ---
:1955 Author Organization [employer] Address [address] [place] [address] Care Team Providers Name Role Phone Steffanie Hitchcock MD Primary Care Provider [phone] Encounter Details Date Type Department Care Team Description 03/10/2018 Notes/Orders [facility] 3800 Krystin Richards MD Rheumatology [address] [facility] [address] [place] [address] [place] [address] [phone] Social History Tobacco Use Types Packs/Day Years Used Date Smoking Tobacco: Never Assessed Sex Assigned at Date Recorded Not on file documented as of this encounter Progress Notes Cornelia Richards MD - 03/10/2018 8:13 AM CST Received progress note from [facility] regarding MRI pelvis. She was already set up to have lumbar spine MRI through other provider, I had added on MRI pelvis toscreen for sacroiliitis. Sacroiliac joints showed mild, chronic appearing degenerative changes of the sacroiliac joints, bilat. No reactive osseous changes or evidence of ongoing sacroiliitis. Additional findings included ... S/p fusion of the L4 and L5 vertebral bodies with decompressive laminectomies. Moderate appearance of spondylosis present at L2-3 and L3-4 with evidence of disc bulging at L3-4. The lumbar spine findings are incompletely evaluated as this study is not optimized for the lumbar spine... Unremarkable appearance of the hip joints, bilaterally, without significant findings of OA. Pt has Crohn's disease and I had seen her last month for self referral for fatigue, pt concern for AI disease. Given hx of Crohn's disease and back pain, recommended MRI SI joints. Again, no e/o sacroiliitis. Will scan in full report. Cornelia Richards MD PLANT SUPERVISOR documented in this encounter Plan of Treatment Not on filedocumented as of this encounter Visit Diagnoses Not on filedocumented in this encounter Care Teams Probate Paralegal Relationship Specialty Start Date End Date Steffanie Hitchcock MD PCP - General Family Practice 02/10/181999 [place] [address] documented as of this encounter
--- OUTSIDE RECORDS SUMMARY | 2021-10-24 11:57 | XMS_ITS | Encounter Summary ---
:1955 Author Organization [facility] Address [address] [place] [address] Care Team Providers Name Role Phone Edison Tam MD Primary Care Provider Sheri Casey MD Unavailable Alphonso Billy MD Unavailable Roland Holt MD Unavailable Amita Ryan MD Unavailable Sid Lilly MD Unavailable Neda Boland RN Unavailable Reason for Visit Reason Comments Medication Refill Encounter Details Date Type Department Care Team Description 09/09/2017 Refill [facility] Sleep Will Harper MD Medication Refill Center [id number] [place] [address] 4-1455 [phone] Social History Tobacco Use Types Packs/Day Years [...] documented as of this encounter Care Teams Drill Operator Pneumatic Relationship Specialty Start Date End Date Edison Tam, PCP - General Family Practice 07/23/14 [place] 909 [facility] [address] 4 [place], [place] [address] Sheri Casey MD Pulmonary Disease 07/23/14 420 [facility] [address] [place] [address] Alphonso Billy MD Cardiology 08/12/[address] [place] [address] Roland Holt MD Resident Student in [facility] 05/12/15 09/24/18 health [facility] education/training program Amita Ryan MD MD Internal Medicine 12/19/[address] [place] [address] [id number] [place], [place] 7[address] Sid Lilly MD Orthopaedic Surgery 02/22/16 MD Alivia [facility] [address] [place], [place] [address] Neda Boland, NANDINI Nurse Coordinator Neurology 02/23/16 09/01/18 documented as of this encounter
--- OUTSIDE RECORDS SUMMARY | 2021-10-24 11:57 | XMS_ITS | Encounter Summary ---
:1955 Author Organization [place] Address [address] [place] [address] Care Team Providers Name Role Phone Edison Tam MD Primary Care Provider Sheri Casey MD Unavailable Alphonso Billy MD Unavailable Roland Holt MD Unavailable Amita Ryan MD Unavailable Sid Lilly MD Unavailable [phone] Neda Boland RN Unavailable Encounter Details Date Type Department Care Team Description 06/20/2017 Orders Only [facility] Hypocalcemia; [address] [facility] SE Senile osteoporosis; 1st Floor History [place] [address] Social History Tobacco Use Types Packs/Day Years [...] Name Priority Date/Time Associated Diagnosis Comme nts CORTISOL Routine 06/20/2017 8:16 Hypocalcemia Results for this AM CDT Senile osteoporo sis procedure are in History of the results corticosteroid therapy secti on. ADRENAL CORTICOTROPIN Routine 06/20/2017 8:16 Hypocalcem ia Results for this AM CDT Senile osteoporo sis procedure are in History of the results corticosteroid therapy secti on. VITAMIN D DEFICIENCY Routine 06/20/2017 8:15 Hypocalcemi a Results for this SCREENING AM CDT Senile osteoporo sis procedure are in History of the results corticosteroid therapy secti on. TSH Routine 06/20/2017 8:15 Hypocalcemia Results for this AM CDT Senile osteoporo sis procedure are in History of the results corticosteroid therapy secti on. T4 FREE Routine 06/20/2017 8:15 Hypocalcemia Results for this AM CDT Senile osteoporo sis procedure are in History of the results corticosteroid therapy secti on. PHOSPHORUS Routine 06/20/2017 8:15 Hypocalcemia Results for this AM CDT Senile osteoporo sis procedure are in History of the results corticosteroid therapy secti on. PARATHYROID HORMONE Routine 06/20/2017 8:15 Hypocalcemia Results for this INTACT AM CDT Senile osteoporo sis procedure are in History of the results corticosteroid therapy secti on. CALCIUM Routine 06/20/2017 8:15 Hypocalcemia Results for this AM CDT Senile osteoporo sis procedure are in History of the results corticosteroid therapy secti on. documented in this encounter Results Adrenal corticotropin (06/20/2017 8:16 AM CDT) Patholo gist Method Time Signature Adrenal 30 <47 pg/mL 06/20/2017 [facility] Corticotropin 2:52 PM CDT [facility] Specimen Anatomical Collection Method Collection Time Receive d Time (Source) Location / / Volume Laterality Blood specimen 06/20/2017 8:16 AM 018 8:17 (specimen) CDT AM CDT Laisha Moraes MD LAB - BLOOD ORDERABLES Performing Organization Address City/State/ZIP Code Phon e Number [facility] [address] [place] [address] [facility] Cortisol (06/20/2017 8:16 AM CDT) P athologist Signature Cortisol Serum 9.8 4 - 22 06/20/2017 [facility] ug/dL 10:37 AM CDT [facility] Comment: 8 AM Cortisol Reference Range = 4-22 ug/ dL 4 PM Cortisol Reference Range = 3-17 ug/ dL Specimen Anatomical Collection Method Collection Time Receive d Time (Source) Location / / Volume Laterality Blood specimen 06/20/2017 8:16 AM 018 8:17 (specimen) CDT AM CDT Laisha Moraes MD LAB - BLOOD ORDERABLES Performing Organization Address City/State/ZIP Code Phon e Number [facility] [address] [place], [place] [id number] [place] [address] (ABNORMAL) TSH (06/20/2017 8:15 AM CDT) athologist Signature TSH 4.75 (H) 0.40 - 4.00 06/20/2017 [facility] mU/L 8:46 AM CDT [facility] Specimen Anatomical Collection Method Collection Time Receive d Time (Source) Location / / Volume Laterality Blood specimen 06/20/2017 8:15 AM 018 8:16 (specimen) CDT AM CDT Laisha Moraes MD LAB - BLOOD ORDERABLES Performing Organization Address City/State/ZIP Code Phon e Number [id number] [place] [address] [facility] T4 free (06/20/2017 8:15 AM CDT) athologist Signature T4 Free 0.98 0.76 - 1.46 06/20/2017 [facility] ng/dL 8:46 AM CDT [facility] Specimen Anatomical Collection Method Collection Time Receive d Time (Source) Location / / Volume Laterality Blood specimen 06/20/2017 8:15 AM 018 8:16 (specimen) CDT AM CDT Laisha Moraes MD LAB - BLOOD ORDERABLES Performing Organization Address City/[facility]/ZIP Code Phon e Number [id number] [place] [address] [facility] Vitamin D Deficiency (D3 Only) (06/20/2017 8:15 AM CDT) athologist Signature Vitamin D 27 20 - 75 06/20/2017 [facility] Deficiency ug/L 1:31 PM CDT [facility] Comment: Season, race, dietary intake, and treatm ent affect the concentration of 59-sststpv-Hbvtteh D. Values may decreas e during winter months and increase during summer months. Values 20-29 ug/L may indicate Vitamin D insufficiency and values <20 ug/L may indicate Vitamin D deficiency. Vitamin D determination is routinely per formed by an immunoassay specific for 25 hydroxyvitamin D3. ??If an individual is on vitamin D2 (ergocalciferol) supplementation, please specify 25 OH vi tamin D2 and D3 level determination by LCMSMS test VITD23. Specimen Anatomical Collection Method Collection Time Receive d Time (Source) Location / / Volume Laterality Blood specimen 06/20/2017 8:15 AM 018 8:16 (specimen) CDT AM CDT Laisha Moraes MD LAB - BLOOD ORDERABLES Performing Organization Address City/[facility]/ZIP Code Phon e Number [address] Parathyroid Hormone Intact (06/20/2017 8:15 AM CDT) P athologist Signature Parathyroid 36 18 - 80 06/20/2017 [facility] Hormone Intact pg/mL 11:15 AM CDT [facility] Specimen Anatomical Collection Method Collection Time Receive d Time (Source) Location / / Volume Laterality Blood specimen 06/20/2017 8:15 AM 018 8:16 (specimen) CDT AM CDT Laisha Moraes MD LAB - BLOOD ORDERABLES Performing Organization Address City/[facility]/ZIP Code Phon e Number [facility] [address] Phosphorus (06/20/2017 8:15 AM CDT) P athologist Signature Phosphorus 4.3 2.5 - 4.5 06/20/2017 [facility] mg/dL 8:46 AM CDT [facility] Specimen Anatomical Collection Method Collection Time Receive d Time (Source) Location / / Volume Laterality Blood specimen 06/20/2017 8:15 AM 018 8:16 (specimen) CDT AM CDT Laisha Moraes MD LAB - BLOOD ORDERABLES Performing Organization Address City/State/ZIP Code Phon e Number [facility] [address] [place] [address] [facility] Calcium (06/20/2017 8:15 AM CDT) P athologist Signature Calcium 8.5 8.5 - 10.1 06/20/2017 [facility] mg/dL 8:46 AM CDT [facility] Specimen Anatomical Collection Method Collection Time Receive d Time (Source) Location / / Volume Laterality Blood specimen 06/20/2017 8:15 AM 018 8:16 (specimen) CDT AM CDT Laisha Moraes MD LAB - BLOOD ORDERABLES Performing Organization Address City/State/ZIP Code Phon e Number [address] [address] [facility] documented in this encounter Visit Diagnoses Diagnosis Hypocalcemia Senile osteoporosis History of corticosteroid therapy Personal history of systemic steroid the rapy documented in this encounter Additional Health Concerns Assessment Noted Time PHQ-9 Depression Total Score: 3 01/28/2017 10:28 AM CS T documented as of this encounter Care Teams Glass Washer Relationship Specialty Start Date End Date Edison Tam, PCP - General Family Practice 07/23/[address] [place] [address] 4 [place], [place] [phone] Sheri Casey MD Pulmonary Disease 07/23/[address] [place] [address] 276 [place], [place] [address] Alphonso Billy MD Cardiology 08/12/[address] [place] [address] [id number] Roland Holt MD Resident Student in [facility] 05/12/15 09/24/18 [facility] education/training program Amita Ryan MD MD Internal Medicine 12/19/[address] [place] [address] [id number] [place] [address] Sid Lilly MD Orthopaedic Surgery 02/22/16 MD Alivia [address] [place], [place] [address] Neda Boland RN Nurse Coordinator Neurology 02/23/16 09/01/18 documented as of this encounter
--- OUTSIDE RECORDS SUMMARY | 2021-10-24 11:57 | XMS_ITS | Encounter Summary ---
:1955 Author [facility] Address [address], [place] [address] Care Team Providers Name Role Phone Steffanie Hitchcock MD Primary Care Provider [phone] Encounter Details Date Type Department Care Team Description 02/12/2018 Notes/Orders [facility] [place]jel[place], [address] [place], [place] [address] Social History Tobacco Use Types Packs/Day Years Used Date Smoking Tobacco: Never Assessed Sex Assigned at Date Recorded Not on file documented as of this encounter Plan of Treatment Not on filedocumented as of this encounter Visit Diagnoses Not on filedocumented in this encounter Care Teams Dianeticist Relationship Specialty Start Date End Date Steffanie Hitchcock MD PCP - General Family Practice 02/10/181999 [place] [address] documented as of this encounter
--- OUTSIDE RECORDS SUMMARY | 2021-10-24 11:57 | XMS_ITS | Encounter Summary ---
:1955 Author Organization [facility] Address [address] [place] [address] Care Team Providers Name Role Phone Edison Tam MD Primary Care Provider Sheri Casey MD Unavailable Alphonso Billy MD Unavailable Roland Holt MD Unavailable Amita Ryan MD Unavailable Sid Lilly MD Unavailable Neda Boland RN Unavailable Reason for Visit Reason Comments Medication Refill Encounter Details Date Type Department Care Team Description 10/21/2017 Refill [facility] Sleep Will Harper MD Medication Refill Center [id number] [place] [address] 4-[address]55 [phone] Social History Tobacco Use Types Packs/Day Years Used Date Former Smoker Cigarettes 1 18 11/11/1972 - 0 06/26/1981 Smokeless Tobacco: Former User Q uit: 09/20/1991 Alcohol Use Standard Drinks/Week Comments No 0 (1 standard drink = 0.6 oz pure alcoho l) Sex Assigned at Date Recorded Not on file documented as of this encounter Miscellaneous Notes Telephone Encounter - Chasity Elizalde MA - 10/22/2017 3:08 PM CDT Pending Prescriptions: Disp Refills gabapentin (NEURONTIN) 100 MG capsule [Ph*90 cap*0 Sig: TAKE 1 CAPSULE BY MOUTH AT 7 PM. INCREASE DOSE TO 200( 2 CAPSULE) MG IN 1 WEEK AND 300 MG(3 CAPSULE) IN 2 WEEKS Last Written Prescription Date: 09/26/2017 Last Fill Quantity: 90, # refills: 0 Last Office Visit with [facility], P or [facility] prescribing provider: 07/18/2017 Future Office visit: No follow up scheduled at this time. HALINA Luque documented in this encounter Plan of Treatment Not on filedocumented as of this encounter Visit Diagnoses Diagnosis Restless legs syndrome (RLS) - Primary documented in this encounter Additional Health Concerns Assessment Noted Time PHQ-9 Depression Total Score: 3 01/28/2017 10:28 AM CS T documented as of this encounter Care Teams Shear Helper Relationship Specialty Start Date End Date Edison Tam, PCP - General Family Practice 07/23/[address] [place] [address] 4 [place] [address] Sheri Casey MD Pulmonary Disease 07/23/[address] [place] [address] 276 [place], [place] 3635[address] Alphonso Billy MD Cardiology 08/12/[address] [place] [address] Roland Holt MD Resident Student in [facility] 05/12/15 09/24/18 [facility] education/training program Amita Ryan MD MD Internal Medicine 12/19/[address] [place] [address] [id number] [place], [place] [id number] Sid Lilly MD Orthopaedic Surgery 02/22/[address] [facility] [address] [address] Neda Boland, NANDINI Nurse Coordinator Neurology 02/23/16 09/01/18 documented as of this encounter
--- OUTSIDE RECORDS SUMMARY | 2021-10-24 11:57 | XMS_ITS | Encounter Summary ---
:1955 Author Organization [facility] Address [address] [place] [address] Care Team Providers Name Role Phone Unassigned, Provider Primary Care Provider Unavailable Reason for Visit Reason Comments Dental Conversion [facility] to [place] convers ion Encounter Details Date Type Department Care Team Description 08/16/2016 Dental Conversion [facility] Aly Wall , [facility] DDS [address] [facility]. [facility]. 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 I told her 143.00, she said she will pay it all then. I collected 232.00. will give detailed reciept after todays visit- 1246pm ETRICS TECHNICIAN Miscellaneous - Interface, In Edr Dental Conversion - 02/21/2007 12:00 AM OBSTETRICS TECHNICIAN 02/21/2007: In Person Contact: Pt checking out she is was a field and it was not charged out yet and she said she had to go. gave her a walkout and she will pay it all on her appt on 02/27/07- 1216pm ETRICS TECHNICIAN Miscellaneous - Interface, In Edr Dental Conversion - 02/20/2007 12:00 AM OBSTETRICS TECHNICIAN 02/20/2007: Incoming Phone Call: pt calling to norma an appt, she states she is staying in town with her ill sister and needs to norma an appt, she is a self pay and does not have any dental coverage. She understands our fees here and that we don't bill, i told her we will give her an estimate before her visit showing her the charges. 330pm ETRICS TECHNICIAN documented in this encounter Plan of Treatment Not on filedocumented as of this encounter Visit Diagnoses Not on filedocumented in this encounter Care Teams Junior Systems Administrator Relationship Specialty Start Date End Date Unassigned, Provider PCP - General 02/13/01 02/09/[address] [place] [address] documented as of this encounter
--- OUTSIDE RECORDS SUMMARY | 2021-10-24 11:57 | XMS_ITS | Encounter Summary ---
:1955 Author Organization [place] Address [address] [place] [address] Care Team Providers Name Role Phone Edison Tam MD Primary Care Provider Sheri Casey MD Unavailable Alphonso Billy MD Unavailable Roland Holt MD Unavailable Amita Ryan MD Unavailable Sid Lilly MD Unavailable [phone] Neda Boland RN Unavailable Encounter Details Date Type Department Care Team Description 09/02/2017 Orders Only [facility] Laisha Moraes Yossi's thyroiditis (Primary Dx); Endocrinology A, Hypocalcemia; [address] [place] [address] 420 [facility] Senile osteoporosis; 3rd Floor [facility] [place] [address] [phone] Social History Tobacco Use Types Packs/Day Years [...] this encounter Visit Diagnoses Diagnosis Yossi's thyroiditis - Primary Chronic lymphocytic thyroiditis Hypocalcemia Senile osteoporosis History of corticosteroid therapy Personal history of systemic steroid the rapy documented in this encounter Additional Health Concerns Assessment Noted Time PHQ-9 Depression Total Score: 3 01/28/2017 10:28 AM CS T documented as of this encounter Care Teams Chain Tender Relationship Specialty Start Date End Date Edison Tam, PCP - General Family Practice 07/23/[address] [place], [place] [address] Sheri Casey MD Pulmonary Disease 07/23/[address] [place] [address] [facility] [address] [place], [place] 28[address] Alphonso Billy MD Cardiology 08/12/[address] [place] [address] [id number] Roland Holt MD Resident Student in [facility] 05/12/15 09/24/18 health [facility] education/training program Amita Ryan MD MD Internal Medicine 12/19/[address] [place] [address] [id number] [place], [place] 396785 Sid Lilly MD Orthopaedic Surgery 02/22/16 MD Alivia [address] [place], [place] [address] Neda Bolnad, NANDINI Nurse Coordinator Neurology 02/23/16 09/01/18 documented as of this encounter
--- OUTSIDE RECORDS SUMMARY | 2021-10-24 11:57 | XMS_ITS | Encounter Summary ---
:1955 Author Organization [place] Address [address] [place] [address] Care Team Providers Name Role Phone Edison Tam MD Primary Care Provider Sheri Casey MD Unavailable Alphonso Billy MD Unavailable Roland Holt MD Unavailable Amita Ryan MD Unavailable Sid Lilly MD Unavailable Neda Boland RN Unavailable Reason for Visit Reason Comments Infusion ACTH test Treatment and Therapy Plans (Routine) - Closed Specialty Diagnoses / Procedures Referred By Contact Refer red To Contact Infusion Therapy Diagnoses History of corticosteroid therapy Laisha Moraes, [facility] Procedures C COSYNTROPIN CORTROSYN INJ, .25MG 9 [facility] [address] [place], [place] [address] [place], [place] Phone: [phone] Referral ID Status Reason Start Date Expiration Date Visits Requ ested Visits Authorized [id number] Closed 06/22/2017 04/10/2018 1 1 Encounter Details Date Type Department Care Team Description 07/08/2017 Infusion Therapy [facility] Laisha Moraes story of Visit Advanced Treatment MD [facility] [address] (Primary Dx) 909 [facility] [address] [place], [place] [id number] Social History Tobacco Use Types Packs/Day [...] Sign Reading Time Taken Comments Blood Pressure 109/55 07/08/2017 9:25 AM CDT Pulse 86 07/08/2017 9:21 AM CDT Temperature 36.5 ??C (97.7 ??F) 07/08/2017 7:47 AM CDT Respiratory Rate - - Oxygen Saturation 97% 07/08/2017 9:21 AM CDT Inhaled Oxygen Concentration - - Weight - - Height - - Body Mass Index - - documented in this encounter Patient Instructions Patient InstructionsConnie Strauss RN - 07/08/2017 8:00 AM CDT Images from the original note were not included. Dear Maria E Coley Thank you for choosing [facility] ([facility]) for your infusion. The following information is a summary of our appointment as well as important reminders. We look forward in seeing you on your next appointment here at [facility]. Please don???t hesitate to callus at [phone] to reschedule any of your appointments or to speak with one of the [facility] registered nurses. It was a pleasure taking care of you today. Sincerely, [facility] [address] [place] [address] Corticotropin Gel for injection What is this medicine? CORTICOTROPIN (kawr ti rolo TROH pin) is a hormone that occurs naturally in the body. It is used as adiagnostic aid to test the adrenal glands. It is used in children less than 2 years old to treat infantile spasms. It is also used to treat problems of the eyes, joints, lungs, nervous system, skin, thyroid, and others. This medicine may be used for other purposes; ask your health care provider or pharmacist if you have questions. What should I tell my health care provider before I take this medicine? They need to know if you have any of these conditions: ?? adrenal gland disease ?? heart failure ?? high blood pressure ?? infection; ?? kidney disease ?? liver disease ?? osteoporosis ?? peptic ulcer ?? recent surgery ?? scleroderma ?? thyroid disease ?? an unusual or allergic reaction to corticotropin, corticosteroids, pork proteins, other medicines, foods, dyes, or preservatives ?? or trying to get ?? breast-feeding How should I use this medicine? In a diagnostic procedure, this medicine is for injection into a vein. It is given by a health wild animal caretaker in a hospital or clinic setting. For other treatments, this medicine is for injection into a muscle or under the skin. You will be taught how to prepare and give this medicine. Use exactly as directed. Take your medicine at regular intervals. Do not take your medicine more often than directed. It is important that you put your used needles and syringes in a special sharps container. Do not put them in a trash can. If you do not have a sharps container, call your pharmacist or healthcare provider to get one. If you are using this medicine to treat infantile spasms, a special MedGuide will be given to you bythe pharmacist with each prescription and refill. Be sure to read this information carefully each time. Talk to your assistant chief engineer regarding the use of this medicine in children. While this drug may be prescribed for children as young as 1 month for selected conditions, precautions do apply. Overdosage: If you think you have taken too much of this medicine contact a poison control center [facility] at once. NOTE: This medicine is only for you. Do not share this medicine with others. What if I miss a dose? In a diagnostic procedure, this does not apply. For other treatments, if you miss a dose, take it as soon as you can. If it is almost time for your next dose, take only that dose. Do not take double or extra doses. What may interact with this medicine? Do not take this medicine with any of the following medications: ?? mifepristone This medicine may also interact with the following medications: ?? diuretics ?? ritodrine ?? vaccines This list may not describe all possible interactions. Give your health care provider a list of all the medicines, herbs, non-prescription drugs, or dietary supplements you use. Also tell them if you smoke, drink alcohol, or use illegal drugs. Some items may interact with your medicine. What should I watch for while using this medicine? Visit your doctor for regular check ups. Tell your doctor or healthcare professional if your symptoms do not start to get better or if they get worse. If you are taking this medicine for a long time, carry an identification card with your name, address, the type and dose of your medicine, and your doctor's name and address. Stay away from people who are sick. Tell your doctor or health wild animal caretaker if you are exposed to anyone with measles or chickenpox, or if you develop sores or blisters that do not heal properly. Do not receive any vaccinations as you may get a strong reaction. Avoid people who have recently taken oral polio vaccine. If you are going to have surgery, tell your doctor or health wild animal caretaker that you have received this medicine within the last twelve months. What side effects may I notice from receiving this medicine? Side effects that you should report to your doctor or health wild animal caretaker as soon as possible: ?? allergic reactions like skin rash, itching or hives, swelling of the face, lips, or tongue ?? black, tarry stools ?? changes in vision ?? change in the amount of urine ?? confusion ?? fever, sore throat, or other signs of infection ?? hallucinations ?? increased thirst ?? irregular heartbeat ?? mental depression, mood swings ?? menstrual problems ?? muscle cramps ?? nausea, vomiting ?? pain in hips, back, ribs, arms, shoulders, or legs ?? rounding out of face ?? skin problems, acne, thin and shiny skin ?? stomach pain ?? swelling of feet or lower legs ?? unusual bleeding or bruising ?? unusually weak or tired ?? weight gain Side effects that usually do not require medical attention (report to your doctor or health wild animal caretaker if they continue or are bothersome): ?? increased appetite ?? nervousness, restlessness, or difficulty sleeping ?? stomach upset ?? unusual increased growth of hair on the face or body This list may not describe all possible side effects. Call your doctor for medical advice about sideeffects. You may report side effects to FDA at 4-393-DTJ-4878. Where should I keep my medicine? Keep out of the reach of children. If you are using this medicine at home, you will be instructed on how to store this medicine. Throw away any unused medicine after the expiration date on the label. NOTE:This sheet is a summary. It may not cover all possible information. If you have questions aboutthis medicine, talk to your doctor, pharmacist, or health care provider. Copyright?? 2016 Gold Standard documented in this encounter Progress Notes Connie Strauss RN - 07/08/2017 8:00 AM CDT Nursing Note Maria E Miller Brijesh [facility] for: Chief Complaint Patient presents with ??? Infusion ACTH test During today's [facility] appointment, orders from Dr.Lynn Moraes were completed. Frequency: once Progress note: Patient identification verified by name and date of . Assessment completed. Vitals recorded in Doc Flowsheets. Patient was provided with education regarding infusion and possible side effects. Patient verbalized understanding. Mud Jack Nozzle Worker needed: No Premedications: were not ordered. Baseline labs 0815 30 minutes at 0845 60 minutes at 0915 Approximate Infusion length:1 hours. Labs: were drawn per orders. Vascular access: peripheral IV placed today. Treatment Conditions: patient denies fever, chills, signs of infection, recent illness, on antibiotics, productive cough or elevated temperature. Patient tolerated infusion: well. Discharge Plan: Follow up plan of care with: primary medical doctor. Discharge instructions were reviewed with patient. Patient/patient access representative verbalized understanding of discharge instructions and all questions answered. Patient discharged from [facility] in stable condition. Connie Strauss RN BP 100/54 Pulse 95 Temp 97.7 ??F (36.5 ??C) (Oral) SpO2 98% Administrations This Visit cosyntropin (CORTROSYN) in NS injection (LOW-DOSE) 1 mcg Admin Date Action Dose Route Administered By 07/08/2017 Given 1 mcg Intravenous Connie Strauss, RN documented in this encounter Plan of Treatment Not on filedocumented as of this encounter Procedures Procedure Name Priority Date/Time Associated Diagnosis Comme nts COSYNTROPIN Timed 07/08/2017 9:15 History of Results for this STIMULATION STUDY AM CDT corticosteroid therapy procedure are in POST 60 the results section. RENIN ACTIVITY Routine 07/08/2017 9:00 History of Results fo r this AM CDT corticosteroid therapy proce dure are in the results section. COSYNTROPIN Timed 07/08/2017 8:45 History of Results for this STIMULATION STUDY AM CDT corticosteroid therapy procedure are in POST 30 the results section. CEZAR STIM BASELINE Routine 07/08/2017 8:15 History of Result s for this AM CDT corticosteroid therapy proce dure are in the results section. documented in this encounter Results Cosyntropin stimulation study post 60 (07/08/2017 9:15 AM CDT) athologist Signature Cortisol 26.0 >20 ug/dL 07/08/2017 [facility] Post 12:21 PM CDT [address] Comment: Peak serum cortisol should be greater th an 20 ug/dL 30-60 minutes post stimulation. Specimen Anatomical Collection Method Collection Time Receive d Time (Source) Location / / Volume Laterality Blood specimen 07/08/2017 9:15 AM 018 9:30 (specimen) CDT AM CDT Laisha Moraes MD LAB - BLOOD ORDERABLES Performing Organization Address City/State/ZIP Code Phon e Number [facility] [address] [place] [address] [facility] Renin activity (07/08/2017 9:00 AM CDT) athologist Signature Renin Activity 1.1 ng/mL/hr 07/10/2017 [facility] 5:33 PM CDT [facility] Comment: (Note) INTERPRETIVE INFORMATION: Renin Activity Adult, Normal sodium diet: Supine ................. 0.2-1.6 ng/mL/ hr Upright ................ 0.5-4.0 ng/mL/ hr Children, Normal sodium diet, Supine: (1-7 days) ..... 2.0-35.0 ng/mL /hr Cord blood ............. 4.0-32.0 ng/mL /hr 1-12 mos ............... 2.4-37.0 ng/mL /hr 13 mos-3 yrs ........... 1.7-11.2 ng/mL /hr 4-5 yrs ................ 1.0- 6.5 ng/mL /hr 6-10 yrs ............... 0.5- 5.9 ng/mL /hr 11-15 yrs .............. 0.5- 3.3 ng/mL /hr Children, normal sodium diet, Upright: 0-3 yrs ................ Not Available 4-5 yrs ................ Less than or e qual to 15 ng/mL/hr 6-10 yrs ............... Less than or e qual to 17 ng/mL/hr 11-15 yrs .............. Less than or e qual to 16 ng/mL/hr Plasma renin activity measures enzyme ab ility to convert angiotensinogen to angiotensin I and is limited by the availability of angiotensinogen. Plasma renin activity is not an accurate indicator of enzyme acti vity when angiotensinogen is decreased. See Compliance Statement D: www.[employer]. [employer]/CS Performed by [employer], [address] [place] [address] [email or web address].[email or web address], Trace Islas MD, Lab. Director Specimen Anatomical Collection Method Collection Time Receive d Time (Source) Location / / Volume Laterality Blood specimen 07/08/2017 9:00 AM 018 9:11 (specimen) CDT AM CDT Laisha Moraes MD LAB - BLOOD ORDERABLES Performing Organization Address City/State/ZIP Code Phon e Number [facility] [address] [place] [address] [facility] Cosyntropin stimulation study post 30 (07/08/2017 8:45 AM CDT) P athologist Signature Cortisol 22.9 >20 ug/dL 07/08/2017 [facility] Stimulation Post 11:32 AM CDT [address] Comment: Peak serum cortisol should be greater th an 20 ug/dL 30-60 minutes post stimulation. Specimen Anatomical Collection Method Collection Time Receive d Time (Source) Location / / Volume Laterality Blood specimen 07/08/2017 8:45 AM 018 8:59 (specimen) CDT AM CDT Laisha Moraes MD LAB - BLOOD ORDERABLES Performing Organization Address City/[facility]/ZIP Code Phon e Number [address] Cosyntropin stimulation study baseline (07/08/2017 8:15 AM CDT) P athologist Signature Cortisol 10.2 4 - 22 07/08/2017 [facility] Stimulation ug/dL 10:43 AM CDT [facility] Comment: 8 AM Cortisol Reference Range = 4-22 ug/ dL 4 PM Cortisol Reference Range = 3-17 ug/ dL Specimen Anatomical Collection Method Collection Time Receive d Time (Source) Location / / Volume Laterality Blood specimen 07/08/2017 8:15 AM 018 8:26 (specimen) CDT AM CDT Laisha Moraes MD LAB - BLOOD ORDERABLES Performing Organization Address City/[facility] Phon e Number [address] documented in this encounter Visit Diagnoses Diagnosis History of corticosteroid therapy - Prim carlos alberto Personal history of systemic steroid the rapy documented in this encounter Administered Medications Inactive Administered Medications - up to 3 most recent administrations Medication Order MAR Action Action Date Dose Rate Site cosyntropin (CORTROSYN) in NS Given 07/08/2017 8:14 AM CDT 1 mcg injection (LOW-DOSE) 1 mcg 1 mcg, Intravenous, ONCE, On Sat07/08/17 at 0745, For 1 dose, IV Push over less than 1 min. Administer after baseline labs drawn. documented in this encounter Additional Health Concerns Assessment Noted Time PHQ-9 Depression Total Score: 3 01/28/2017 10:28 AM CS T documented as of this encounter Care Teams Kaiawhina Relationship Specialty Start Date End Date Edison Tam, PCP - General Family Practice 07/23/[address] [place] [address] [address] [place], [place] [phone] Sheri Casey MD Pulmonary Disease 07/23/14 420 [facility] [address] [place] [address] Alphonso Billy MD Cardiology 08/12/[address] [place] [address] [id number] Roland Holt MD Resident Student in [facility] 05/12/15 09/24/18 health [facility] education/training program Amita Ryan MD MD Internal Medicine 12/19/[address] [place] [address] [id number] [place], [place] [phone] Sid Lilly MD Orthopaedic Surgery 02/22/16 MD Alivia [facility] [facility] [address] [place], [place] [address] Neda Boland, NANDINI Nurse Coordinator Neurology 02/23/16 09/01/18 documented as of this encounter
--- OUTSIDE RECORDS SUMMARY | 2021-10-24 11:58 | XMS_ITS | Encounter Summary ---
:1955 Author Organization [place] Address [address] [place] [address] Care Team Providers Name Role Phone Edison Tam MD Primary Care Provider Sheri Casey MD Unavailable Alphonso Billy MD Unavailable Roland Holt MD Unavailable Amita Ryan MD Unavailable Sid Lilly MD Unavailable [phone] Neda Boland RN Unavailable Encounter Details Date Type Department Care Team Description 01/28/2017 [facility] Only [facility] Primary Care Kendrick Stratton Other abnormal glucose Clinic [address] [address] Social History Tobacco Use Types Packs/Day [...] encounter Procedures Procedure Name Priority Date/Time Associated Comments Diagnosis ALBUMIN RANDOM URINE Routine 01/28/2017 10:20 Other abnormal R esults for this QUANTITATIVE AM FOREIGN SERVICE TEACHER glucose procedure are i n the results section. documented in this encounter Results (ABNORMAL) Albumin Random Urine Quantitative with Creat Ratio (01/28/2017 10:20 AM FOREIGN SERVICE TEACHER) [facility] Method Time Signature Creatinine 114 mg/dL 01/28/2017 [place] Urine 11:26 AM [facility] Albumin Urine 32 mg/L 01/28/2017 [place] mg/L 11:26 AM [facility] Albumin Urine 28.07 (H) 0 - 25 01/28/2017 [place] mg/g Cr mg/g Cr 11:26 AM [facility] Specimen Anatomical Collection Method Collection Time Receive d Time (Source) Location / / Volume Laterality Urine specimen 01/28/2017 10:20 7 (specimen) AM FOREIGN SERVICE TEACHER 10:44 AM FOREIGN SERVICE TEACHER Edison Tam MD LAB - URINE ORDERABLES Performing Organization Address City/State/ZIP Code Phon e Number M [facility] [address] [place] [address] [facility] [address] [address], [facility] [phone] documented in this encounter Visit Diagnoses Diagnosis Other abnormal glucose Other abnormal glucose documented in this encounter Additional Health Concerns Assessment Noted Time PHQ-9 Depression Total Score: 3 01/28/2017 10:28 AM CS T documented as of this encounter Care Teams General Internal Medicine Doctor Relationship Specialty Start Date End Date Edison Tam, PCP - General Family Practice 07/23/[address] [place] [address] 4 [place] [address] Sheri Casey MD Pulmonary Disease 07/23/14 420 [facility] [address] [place] [address] Alphonso Billy MD Cardiology 08/12/14 8 [address] [place], [place] [address] Roland Holt MD Resident Student in [facility] 05/12/15 09/24/18 health care education/training program Amita Ryan MD MD Internal Medicine 12/19/15 909 [facility] [id number] [place] [address] Sid Lilly MD Orthopaedic Surgery 02/22/16 MD Alivia [facility] [address] [place] [address] Neda Boland, NANDINI Nurse Coordinator Neurology 02/23/16 09/01/18 documented as of this encounter
--- OUTSIDE RECORDS SUMMARY | 2021-10-24 11:58 | XMS_ITS | Encounter Summary ---
:1955 Author Organization [facility] Address [address] [place] [address] Care Team Providers Name Role Phone Edison Olivas MD Primary Care Provider Sheri Casey MD Unavailable Alphonso Billy MD Unavailable Roland Holt MD Unavailable Amita Ryan MD Unavailable Sid Lilly MD Unavailable [phone] Neda Boland RN Unavailable Encounter Details Date Type Department Care Team Description 02/08/2017 Radiant Appointment Health Imaging Edison Olivas [facility] Renea Kennedy MD [address] [place] [address] [place] [phone] Social History Tobacco Use Types Packs/Day [...] Name Priority Date/Time Associated Diagnosis Comme nts DX HIP/PELVIS/SPINE Routine 02/08/2017 3:11 PM Senile osteopor osis Results for this AGRONOMY TECHNICIAN procedure are i n the results section. documented in this encounter Results Dexa hip/pelvis/spine* (02/08/2017 3:11 PM AGRONOMY TECHNICIAN) Anatomical Region Laterality Modality Dexa Bone Mineral Density Specimen (Source) Anatomical Location Collection Method / Collectio n Time Received Time / Laterality Volume Narrative 02/11/2017 6:59 PM AGRONOMY TECHNICIAN [facility] [address] [place] [id number] Phone: ?? Fax: FINAL REPORT Patient name: ?? MARIA E COLEY ([id number] ) Patient demographics: 62[age]1 year old Whit e Female of 62.0 in. height and 130.0 lbs. weight Ordering provider: EDISON OLIVAS History: ??HX OF OSTEOPOROSIS, POSTMENOP AUSAL status, THYROID CONDITION, reformed tobacco habit, family hx of ost eoporosis, OVARIES REMOVED (1 OR 2), CROHN'S Current treatments: Calcium, Vitamin D Scan: ??DXA exam ([id number] ): Opsens Exam date: ??02/08/2017 Comparison: ?? 02/08/2017 05/16/2015 11/06/2011 Dual energy x-ray absorptiometry (DXA) r esults: Region Date BMD T - score Z - score BMD change from baseline BMD % change from baseline BMD change from previous B MD % change from previous L1-L2 02/08/2017 0.879 g/cm?? -2.4 -0.8 -0.081 g/cm?? -8.4% -0.047 g/cm?? -5.1% 05/16/2015 0.926 g/cm? 11/06/2011 0.960 g/cm? baseline bas courtney - - Neck Left 02/08/2017 0.634 g/cm?? -2.9 - 1.4 ? 05/16/2015 0.693 g/cm? 11/06/2011 0.679 g/cm? Total Left 02/08/2017 0.704 g/cm?? -2.4 -1.2 -0.016 g/cm?? -2.2% 0.002 g/cm?? 0.3% 05/16/2015 0.702 g/cm? 11/06/2011 0.720 g/cm? baseline bas courtney - - Neck Right 02/08/2017 0.632 g/cm?? -2.9 -1.5 ? 05/16/2015 0.636 g/cm? 11/06/2011 0.648 g/cm? Total Right 02/08/2017 0.719 g/cm?? -2.3 -1.1 0.013 g/cm?? 1.8% 0.023 g/cm?? 3.3% 05/16/2015 0.696 g/cm? 11/06/2011 0.706 g/cm? baseline bas courtney - - Conclusions: The most negative and valid T-score of - 2.9 at the level of the left femoral neck, -2.9 at the level of the r ight femoral neck, corresponds with osteoporosis. The risk of osteoporotic fracture increa ses approximately 2-fold for each 1.0 SD decrease in T-score. ??Low bone d ensity is not the only risk factor for fracture; consider factors such as p atient's age, fall risk, injury risk, previous osteoporotic fracture, fa nancy history of osteoporosis, etc. People with an elevated risk of fractur e should be regularly evaluated for low bone mineral density. ??For jose ents eligible for Medicare, routine testing is allowed once every 2 years. T esting frequency can be increased for patients on corticosteroids. Clinica l correlation is recommended. Taking into account the precision errors (reference 2) for this center A. these calculated changes in BMD to th e previous exam are significant: -5.1% ?at the level of the L1 - L2 l umbar spine, 3.3% ?? at the level of the right total hip, B. these calculated changes in BMD to th e ??baseline exam are significant: -8.4% ??at the level of the L1 - L2 lumb ar spine, Comparison ? Percent changes not mentioned or withi n remaining regions are either insignificant or invalid. ? The significance of the change in the lateral spine is unknown as the least significant change for this region has not been determined for this center. ? Please note that the differential diag nosis of BMD increase in the spine includes improvement due to pharmacother apy vs inter-current progression of spine degeneration or fracture ? Total hip rather than femoral neck reg ions are to be compared because larger areas give better precision. Bone densitometry cannot rule out second carlos alberto causes of bone loss. Therefore, further metabolic testing to look for secondary causes of low BMD should be performed if indicated. Cl inical correlation is recommended Lateral spine imaging with standard radi ography or Vertebral Fracture Assessment (VFA) may be performed when T -score is < -1.0 AND historical height loss > 4 cm (>1.5 inch es); or glucocorticoid therapy of prednisone ? 5 mg/day or equivalent for ? 3 months is present. Clinical correlation is strongly recomme nded Feel free to contact DXA services if you have any questions or comments. ?? Thank you for the opportunity to be of s kamila to you and your patient. Principal result stone product fabricator: Luci uRdd MD, CCD Procurement Agentsiebel architect Division of Endocrinology References: 1. ISCD position statements: ??www.iscd. org ??(includes the report of the 2014 ??Position Development Conference) 2. LSC = least significant changes at th e [facility] AP spine = ??0.032 g/cm2 ??(09.03.2006) Left hip = 0.029 g/cm2 ??(08.23.2006) Right hip = 0.018 g/cm2 ??(08.23.2006) Left mid radius = 0.043 g/cm2 ??( 007) Lateral spine region = pending Total body = pending Template revised 10/14/2014 Technical comments: Satisfactory. As per the ISCD Position Statements, abnormal vertebrae may be excluded from analysis if there is more than a 1.0 T-score difference between the verte brae in question and adjacent vertebrae. Note the wide range in BMD va lues and ??T-scores ??within the lumbar spine L2 ? L3. ??In the circumstances, the lumbar spine is represented by L1- L2. Template revised 08/01/2016 Edison Olivas MD IMG DEXA ORDERABLES documented in this encounter Visit Diagnoses Diagnosis Senile osteoporosis documented in this encounter Additional Health Concerns Assessment Noted Time PHQ-9 Depression Total Score: 3 01/28/2017 10:28 AM CS T documented as of this encounter Care Teams Human Geography Instructor Relationship Specialty Start Date End Date Edison Olivas, PCP - General Family Practice 07/23/14 [address] [facility] [address] [place], [place] [id number] Sheri Casey MD Pulmonary Disease 07/23/14 [address] [facility] [address] [place] [address] Alphonso Billy MD Cardiology 08/12/[address] [place] [id number] Roland Holt MD Resident Student in [facility] 05/12/15 09/24/18 health care education/training program Amita Ryan MD MD Internal Medicine 12/19/15 [address] [facility] [id number] [place], [place] [address] Sid Lilly MD Orthopaedic Surgery 02/22/16 MD Alivia [facility] [address] [place] [address] Neda Boland, NANDINI Nurse Coordinator Neurology 02/23/16 09/01/18 documented as of this encounter
--- OUTSIDE RECORDS SUMMARY | 2021-10-24 11:58 | XMS_ITS | Encounter Summary ---
:1955 Author Organization [facility] Address [address] [place] [address] Care Team Providers Name Role Phone Edison Tam MD Primary Care Provider Sheri Casey MD Unavailable Alphonso Billy MD Unavailable Roland Holt MD Unavailable Amita Ryan MD Unavailable Sid Lilly MD Unavailable [phone] Neda Boland RN Unavailable Reason for Visit Diagnostic Imaging XR - Closed Specialty Diagnoses / Procedures Referred By Contact Refer red To Contact Diagnoses Chronic pain of both shoulders Christiano Barnes, DO Procedures XR Shoulder 3 View Bilateral 9 [place], [place] [address] Referral ID Status Reason Start Date Expiration Date Visits Requ ested Visits Authorized [id number] Closed 04/27/2017 04/27/2018 1 1 Encounter Details Date Type Department Care Team Description 04/27/2017 Radiant Appointment [facility] Orthopaedics Christiano Barnes Chronic pain of XRay A, DO both shoulders [address] [facility] [place] [address] [facility] 4th Floor [facility] [address] [place] [address] [phone] Social History Tobacco Use Types Packs/Day Years [...] Name Priority Date/Time Associated Diagnosis Comme nts XR SHOULDER Routine 04/27/2017 1:40 PM Chronic pain of both R esults for this BILATERAL 3 VIEWS SENIOR PRODUCER shoulders procedure are in the results section. documented in this encounter Results XR Shoulder 3 View Bilateral (04/27/2017 1:40 PM SENIOR PRODUCER) Anatomical Region Laterality Modality Shoulder Bilateral Computed Radiography Specimen (Source) Anatomical Location Collection Method / Collectio n Time Received Time / Laterality Volume Impressions 04/27/2017 4:19 PM SENIOR PRODUCER IMPRESSION: 1. Bilateral mild to moderate acromiocla vicular joint degenerative changes. 2. Bilaterally preserved glenohumeral theresa ints. SIOMARA VOGT MD Narrative 04/27/2017 4:19 PM SENIOR PRODUCER EXAMINATION: XR SHOULDER 3 VIEWS BILATERAL ??04/27/2017 1:40 PM CLINICAL HISTORY: ??; Chronic pain of ricki th shoulders; Chronic pain of both shoulders; Chronic pain of both jose ulders COMPARISON: None available FINDINGS: Left shoulder: The glenohumeral joint is normally aligned. There are mild to moderate degenerative changes of the acromioclavicular joint. Mild sclerosis involving the greater tub erosity. Right shoulder: The glenohumeral joint i s normally aligned. Joint spaces preserved. There are mild to mode rate degenerative changes of of the acromioclavicular joint. Mild scl erosis involving the greater tuberosity. Procedure Note Siomara Vogt MD - 04/27/2017Forma tting of this note might be different from the original. EXAMINATION: XR SHOULDER 3 VIEWS BILATER AL 04/27/2017 1:40 PM CLINICAL HISTORY: ; Chronic pain of both shoulders; Chronic pain of both shoulders; Chronic pain of both jose ulders COMPARISON: None available FINDINGS: Left shoulder: The glenohumeral joint is normally aligned. There are mild to moderate degenerative changes of the acromioclavicular joint. Mild sclerosis involving the greater tub erosity. Right shoulder: The glenohumeral joint i s normally aligned. Joint spaces preserved. There are mild to mode rate degenerative changes of of the acromioclavicular joint. Mild scl erosis involving the greater tuberosity. IMPRESSION: 1. Bilateral mild to moderate acromiocla vicular joint degenerative changes. 2. Bilaterally preserved glenohumeral theresa ints. SIOMARA VOGT MD Christiano Barnes DO [facility] ORDER EB documented in this encounter Visit Diagnoses Diagnosis Chronic pain of both shoulders Pain in joint, shoulder region documented in this encounter Additional Health Concerns Assessment Noted Time PHQ-9 Depression Total Score: 3 01/28/2017 10:28 AM CS T documented as of this encounter Care Teams Tenter Relationship Specialty Start Date End Date Edison Tam, PCP - General Family Practice 07/23/[address] [place] [address] [address] [place], [place] [phone] Sheri Casey MD Pulmonary Disease 07/23/[address] [place] [address] [facility] [address] [place], [place] [phone] Alphonso Billy MD Cardiology 08/12/[address] [phone] Roland Holt MD Resident Student in [facility] 05/12/15 09/24/18 health care education/training program Amita Ryan MD MD Internal Medicine 12/19/[address] [place] [address] [id number] [place], [place] [phone] Sid Lilly MD Orthopaedic Surgery 02/22/16 MD Alivia [address] [place] [address] [address] [place] [address] Neda Boland, NANDINI Nurse Coordinator Neurology 02/23/16 09/01/18 documented as of this encounter
--- OUTSIDE RECORDS SUMMARY | 2021-10-24 11:58 | XMS_ITS | Encounter Summary ---
:1955 Author Organization [facility] Address [address] [place] [id number] Care Team Providers Name Role Phone Edison Tam MD Primary Care Provider Sheri Casey MD Unavailable Alphonso Billy MD Unavailable Roland Holt MD Unavailable Amita Ryan MD Unavailable Sid Lilly MD Unavailable [phone] Neda Boland RN Unavailable Reason for Referral - Closed Specialty Diagnoses / Procedures Referred By Contact Refer red To Contact Diagnoses Hypersomnia Omar Lomeli MD [address] [place], [place] [address] Referral ID Status Reason Start Date Expiration Date Visits Requ ested Visits Authorized [id number] Closed 04/27/2017 04/27/2018 1 1 ODIAL MANAGER Reason for Visit Reason Comments ER F/U went to emergency room (04/22) for n/v palpitations,dizzy, SOB and edema in legs Heart Problem racing (anxious) heart Pain pain in both shouders, (left shoulder hurts worstburning ache)- for quite some time Encounter Details Date Type Department Care Team Description 04/27/2017 Office Visit [facility] Primary Care GenevateddianamOar Agusto persomnia (Primary Dx); Clinic R, MD RODGERS (dyspnea on exertion) [address] [place] [address] [address] [place] [id number] Social History Tobacco Use Types Packs/Day [...] Sign Reading Time Taken Comments Blood Pressure 111/74 04/27/2017 9:55 AM CUSTODIAL MANAGER Pulse 95 04/27/2017 9:55 AM CUSTODIAL MANAGER Temperature - - Respiratory Rate 20 04/27/2017 9:55 AM CUSTODIAL MANAGER Oxygen Saturation 96% 04/27/2017 9:55 AM CUSTODIAL MANAGER Inhaled Oxygen Concentration - - Weight 54.4 kg (120 lb) 04/27/2017 9:55 AM weight form 04/22/17 CUSTODIAL MANAGER Height - - Body Mass Index 21.95 04/22/2017 11:43 AM CUSTODIAL MANAGER documented in this encounter Patient Instructions Patient InstructionsSuha Clarke LPN - 04/27/2017 10:00 AM CST Primary Care Center: [phone] Primary Care Center Medication Refill Request Information: * Please contact your pharmacy regarding ANY request for medication refills. [facility] Prescription Fax = [phone] * Please allow 3 business days for routine medication refills. * Please allow 5 business days for controlled substance medication refills. [facility] Test Result notification information: *You will be notified with in 7-10 days of your appointment day regarding the results of your test. If you are on MyChart you will be notified as soon as the provider has reviewed the results and signed off on them. ODIAL MANAGER documented in this encounter Progress Notes Omar Lomeli MD - 04/27/2017 10:00 AM CST SUBJECTIVE: Pt is a 61 year old female with pmh of Patient Active Problem List Diagnosis ??? Yossi's thyroiditis ??? Crohn's disease of both small and large intestine with complication (H) ??? Adjustment disorder with mixed anxiety and depressed mood ??? Fatigue ??? Renal mass, right ??? Sacro-iliac pain ??? Dermatitis ??? Fibrosis of skin ??? Cholelithiases ??? Fall ??? Concussion ??? Restless leg syndrome ??? Right wrist fracture ??? Pyelonephritis ??? Neoplasm of uncertain behavior of skin ??? Dehydration ??? Sinus infection ??? Connective tissue disorder (H) ??? Inflammatory bowel disease (Crohn's disease) (H) ??? Hypothyroidism ??? Numbness and tingling of left leg ??? Chronic low back pain ??? Lumbar stenosis with neurogenic claudication ??? Lumbar radicular pain ??? Sacroiliac joint pain ??? Low back pain ??? Senile osteoporosis ??? Personal history of other drug therapy ??? History of corticosteroid therapy ??? Osteoporosis ??? Digestive-genital tract fistula, female ??? Pneumaturia ??? Carbon monoxide exposure who is here for evaluation of had concerns including ER F/U; Heart Problem; and Pain. Here for a few things. One, on prednisone for fifty years for Crohns weaned off last year, off for four mo, no Crohns flares. Two, h/o C.O poisoning for at least three anderson, 2011-, faulty boiler Three, gradual onset RODGERS, not in bed, vague chest discomfort with. No smoke, DM, htn, or high chol, or FH heart dz. No pulm history. Four, last few mo often awakens w/ racing heart and nausea--not SOB then. Not sure if snores, but has been havingnon restorative sleep chronically. A sister w/ JOSE LUIS. Five, vertigo, new, intermittent, last 1.5 weeks. No obviouis triggers or alleviating factors Six, whites of eyes red and mildly sore, comes and goes Seven, edema, feet, dependent, since December, gradually worse Eight, gradual onset foot neuralgias--did see neuro here last year, w/u reviewed, worse since then Nine, left shoulder pain, no trauma, for three mo, no better, hurts to move or lie on Ten, mild night sweats, not body wide, no need to change Eleven, down 15 lbs in a year. Appetite intact, goes along time frame of pred wean off. ER notes and studies reviewed Allergies Allergen Reactions ??? Humira Rash ??? Ibuprofen Sodium GI Disturbance ??? Loratadine Other (See Comments) Dry mouth, rapid heart beat ??? Lyrica Other (See Comments) Patient feels intoxicated on medication ??? No Clinical Screening - See Comments Use Caution with Pain Medication. Short term OK ??? Remicade [Infliximab Injection] Doesn't work for pt ??? Demerol [Meperidine] Rash ??? Morphine Hcl Rash IV allergy ??? Penicillin G Rash Childhood reaction ??? Sulfa Drugs Fatigue Profound lethargy ??? Tramadol Itching and Rash Past Medical History: Diagnosis Date ??? Anemia Result of CO poisoning and fdc prednisone use? Anxiety ??? Arthritis ??? Bone disease osteoporosis ??? Bunion ??? Chronic diarrhea ??? Chronic sinusitis me---This started so long ago, I can't give you a date ??? Crohn's 1977 on prednisone chronically ??? Depression ??? Depressive disorder spoke with psychiatrist and increased meds ??? Endocrine problem ??? Fecal incontinence thru fistulas ??? Fibromyalgia ??? Fracture yes, but not recently ??? Fracture of wrist fall ??? Genital problems fistulas in genital area getting bigger, mass on overy ??? Yossi's disease ??? Head injury 2011 tumbled down a full flight of stairs ??? History of blood transfusion N/A ??? History of steroid therapy ??? Hoarseness september, me ??? Immunosuppression (H) ??? Kidney problem mass on my right kidney ??? Lupus has had positive flare ups ??? 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 Menarche 9 y.o menapuase age 40 was on prednisone ??? Narcotic dependence, in remission (H) rehab ??? Nicotine dependence in remission ??? Osteoporosis ??? Other bladder disorder mass on my right? kidney ??? Personal history of colonic polyps N/A ??? Sleep apnea sister ??? Tinnitus can't remember me, sister, father ??? Uncomplicated asthma was just diagnosed last week ??? Vision disorder dry eyes Past Surgical History: Procedure Laterality Date ??? APPENDECTOMY OPEN 1985 ??? BACK SURGERY 2008 L4-L5 laminectomy ??? BACK SURGERY 2010 L5 ??? BIOPSY yes ??? C CLOSE URETHROVAGINAL FISTULA two fistulas one rectovag one urethra vag- no hx uti's ??? COLONOSCOPY ??? ENT SURGERY september 2015 I seem to have developed a chronic sore throat ??? ESOPHAGOSCOPY, GASTROSCOPY, DUODENOSCOPY (EGD), COMBINED 08/26/2012 Procedure: COMBINED ESOPHAGOSCOPY, GASTROSCOPY, DUODENOSCOPY (EGD), BIOPSY SINGLE OR MULTIPLE;; Surgeon: Charan Salazar MD; Location: [facility] ??? DIRECTOR PROSPECT SURGERY mass on remaining ovary ??? left ovary removal was removed during a resection ??? RELEASE CARPAL TUNNEL right ??? REPAIR NERVE MICROSCOPIC UPPER EXTREMITY 04/16/2013 Procedure: REPAIR NERVE MICROSCOPIC UPPER EXTREMITY; Left Index Finger Digital Nerve Repair with Nuerogen tibe; Surgeon: Marisol Hathaway MD; Location: [facility] ??? SIGMOIDECTOMY left ovary removal ??? SMALL BOWEL RESECTION 1985 colon and distal ilium Current Outpatient Prescriptions Medication Sig Dispense Refill ??? blood glucose monitoring (NO BRAND SPECIFIED) test strip Use to test blood sugars 2 to three times daily or as directed 100 each 11 ??? rOPINIRole (REQUIP) 1 MG tablet Take 1 tablet (1 mg) by mouth At Bedtime May take 1/2 tab additional prn once daily. 45 tablet 11 ??? cyanocobalamin (VITAMIN B12) 1000 MCG/ML injection Inject 1 mL (1,000 mcg) into the muscle every30 days 1 mL 11 ??? order for DME Injection Supplies for Vitamin B12: 3cc syringes w/ 29 gauge needles 1/2 inch length 12 each 0 ??? ORDER FOR DME, SET TO LOCAL PRINT, Equipment being ordered: portable Oxygen with nasal cannula at 1-2 liters 1 Can 3 ??? L-Lysine 500 MG TABS Take 1 tablet by mouth daily ??? cholecalciferol (VITAMIN D) 1000 UNIT tablet Take 1 tablet (1,000 Units) by mouth daily Discontinue Vitamin D 55386 100 tablet 3 ??? acetaminophen (TYLENOL) 500 MG tablet Take 500-1,000 mg by mouth every 8 hours as needed ??? multivitamin (THERA-PLUS) LIQD Take 5 mLs by mouth daily. ??? Carboxymethylcellulose Sodium (REFRESH TEARS OP) Apply to eye. ??? fluorouracil (EFUDEX) 5 % cream Apply topically to bilateral forearms and hands twice daily 40 g0 ??? guaiFENesin (MUCINEX) 600 MG 12 hr tablet Take 600 mg by mouth 2 times daily as needed. ??? Menthol, Topical Analgesic, (ICY HOT EX) Externally apply topically. Patient uses Gel, Cream andPatch PRN ??? Calcium Citrate-Vitamin D (CITRACAL + D PO) Take 1 tablet by mouth 2 times daily. Social History Substance Use Topics ??? Smoking status: Former Smoker Packs/day: 1.00 Years: 18.00 Types: Cigarettes Start date: 11/11/1972 Quit date: 06/26/1981 ??? Smokeless tobacco: Former User Quit date: 09/20/1991 ??? Alcohol use No OBJECTIVE: BP 111/74 (BP Location: Right arm, Patient Position: Sitting, Cuff Size: Adult Regular) Pulse 95 Resp 20 Wt 54.4 kg (120 lb) SpO2 96% BMI 21.95 kg/m2 GENERAL APPEARANCE: Alert, no acute distress Eyes clear externally HENT: Ears and TMs normal, oral mucosa and posterior oropharynx normal NECK: No adenopathy,masses or thyromegaly RESP: lungs clear to auscultation CV: normal rate, regular rhythm, no murmur or gallop ABDOMEN: soft, no organomegaly, masses or tenderness MS: extremities normal ecept left shoulder pain w/ ROM, trace peripheral edema NEURO: Alert, oriented, speech and mentation normal PSYCHE: mentation appears normal, affect and mood normal ASSESSMENT/PLAN: RODGERS: labs, echo, gxt. If normal consider PFT's Vertigo: monitor, possible new onset BPV. Not assoc w/ nausea or falls, consider ENT eval if ongoing Left shoulder pain: see Sp Med Poorly restorative sleep, wakes w/ racing heart and nausea: JOSE LUIS eval along w/ cardiac eval Foot neuralgias: agreed to review further next visit At next visit will see if needs help finding eye MD Wt loss: monitor, could be from stopping pred Edema: cardiac eval Offered f/u usual MD she asked to see me back to f/u today orders OMAR LOMELI MD ODIAL MANAGER documented in this encounter Nursing Notes Suha Clarke LPN - 04/27/2017 10:00 AM CST Chief Complaint Patient presents with ??? ER F/U went to emergency room (04/22/17) for n/v palpitations,dizzy, SOB and edema in legs ??? Heart Problem racing (anxious) heart ??? Pain pain in both shouders, (left shoulder hurts worstburning ache)- for quite some time Suha Clarke LPN 9:58 AM on 04/27/2017 Rooming Note Health Maintenance There are no preventive care reminders to display for this patient. All health maintenance items UP TO DATE Suha Clarke LPN 9:59 AM on 04/27/2017 ODIAL MANAGER documented in this encounter Plan of Treatment Scheduled Referrals Name Type Priority Associated Diagnoses Order S chedule SLEEP EVALUATION & Referral Routine Hypersomnia 1 Occurre nces starting MANAGEMENT REFERRAL - 2017 until ADULT -Other (Respond 2018 in commments) ([facility]) documented as of this encounter Results Cortisol (04/27/2017 11:19 AM CUSTODIAL MANAGER) P athologist Signature Cortisol Serum 8.8 4 - 22 04/27/2017 [facility] ug/dL 3:15 PM CUSTODIAL MANAGER [facility] Comment: 8 AM Cortisol Reference Range = 4-22 ug/ dL 4 PM Cortisol Reference Range = 3-17 ug/ dL Specimen Anatomical Collection Method Collection Time Receive d Time (Source) Location / / Volume Laterality Blood specimen 04/27/2017 11:19 8 (specimen) AM CUSTODIAL MANAGER 11:21 AM CUSTODIAL MANAGER Omar Lomeli MD LAB - BLOOD ORDERABLES Performing Organization Address City/State/ZIP Code Phon e Number [facility] [address] [place] [address] [facility] N terminal pro BNP (04/27/2017 11:18 AM CUSTODIAL MANAGER) P athologist Signature N-Terminal Pro 92 0 - 125 04/27/2017 [facility] Bnp pg/mL 11:44 AM CUSTODIAL MANAGER [facility] Comment: Reference range shown and results flagge d as abnormal are for the outpatient, non acute settings. Establishing a basel ine value for each individual patient is useful for follow-up. Suggested inpatient cut points for confi rming diagnosis of CHF in an acute setting are: >450 pg/mL (age 18 to less than 50) >900 pg/mL (age 50 to less than 75) >1800 pg/mL (75 yrs and older) An inpatient or emergency department NT- proPBNP <300 pg/mL effectively rules out acute CHF, with 99% negative predict rena value. Specimen Anatomical Collection Method Collection Time Receive d Time (Source) Location / / Volume Laterality Blood specimen 04/27/2017 11:18 8 (specimen) AM CUSTODIAL MANAGER 11:20 AM CUSTODIAL MANAGER Omar Lomeli MD LAB - BLOOD ORDERABLES Performing Organization Address City/State/ZIP Code Phon e Number [address] [address] [facility] documented in this encounter Visit Diagnoses Diagnosis Hypersomnia - Primary Hypersomnia, unspecified RODGERS (dyspnea on exertion) Other dyspnea and respiratory abnormalit y documented in this encounter Additional Health Concerns Assessment Noted Time PHQ-9 Depression Total Score: 3 01/28/2017 10:28 AM CS T documented as of this encounter Care Teams Business Intelligence Engineer Relationship Specialty Start Date End Date Edison Tam, PCP - General Family Practice 07/23/[address] [place] [address] 4 [place], [place] [id number] Sheri Casey MD Pulmonary Disease 07/23/14 [address] [facility] [address] [place] [address] Alphonso Billy MD Cardiology 08/12/14 8 [address] [place] [address] Roland Holt MD Resident Student in [facility] 05/12/15 09/24/18 [facility] education/training program Amita Ryan MD MD Internal Medicine 12/19/15 [address] [facility] [id number] [address] Sid Lilly MD Orthopaedic Surgery 02/22/16 MD [facility] [address] [place] [address] Neda Boland, NANDINI Nurse Coordinator Neurology 02/23/16 09/01/18 documented as of this encounter
--- OUTSIDE RECORDS SUMMARY | 2021-10-24 11:58 | XMS_ITS | Encounter Summary ---
:1955 Author Organization [facility] Address [address] [place] [address] Care Team Providers Name Role Phone Edison Tam MD Primary Care Provider Sheri Casey MD Unavailable Alphonso Billy MD Unavailable Roland Holt MD Unavailable Amita Ryan MD Unavailable Sid Lilly MD Unavailable Neda Boland RN Unavailable Reason for Visit Reason Onset Date Comments Refill Request 10/27/2016 rOPINIRole (REQUIP) 1 MG tablet Encounter Details Date Type Department Care Team Description 10/27/2016 Refill [facility] Primary Care Edison Tam efill Request Clinic MD Marcia (rOPINIRole (REQUIP) [address] [place] MG tablet) [address] Floor 4 [place] [address] [phone] (Wo rk) Social History Tobacco Use Types Packs/Day Years Used Date Former Smoker Cigarettes 1 17 11/11/1972 - 0 06/26/1981 Smokeless Tobacco: Former User Q uit: 09/20/1991 Alcohol Use Standard Drinks/Week Comments No 0 (1 standard drink = 0.6 oz pure alcoho l) Sex Assigned at Date Recorded Not on file documented as of this encounter Miscellaneous Notes Telephone Encounter - Ainsley Clarke RN - 10/27/2016 10:49 AM CDT rOPINIRole (REQUIP) 1 MG tablet Last Written Prescription Date: 02/07/16 Last Fill Quantity: 90, # refills: 3 Last Office Visit with [facility] or [facility] prescribing provider: 12/19/15 Future Office visit: none documented in this encounter Plan of Treatment Not on filedocumented as of this encounter Visit Diagnoses Diagnosis Restless leg Restless legs syndrome (RLS) documented in this encounter Additional Health Concerns Assessment Noted Time PHQ-9 Depression Total Score: 14 05/13/2015 7:50 AM CS T documented as of this encounter Care Teams Transportation Assistant Relationship Specialty Start Date End Date Edison Tam, PCP - General Family Practice 07/23/[address] [place] [address] 4 [place], [place] [address] Sheri Casey MD Pulmonary Disease 07/23/[address] [place] [address] [facility] [address] [place], [place] [address] Alphonso Billy MD Cardiology 08/12/[address] [place] [id number] Roland Holt MD Resident Student in [facility] 05/12/15 09/24/[address] [facility] education/training program Amita Ryan MD MD Internal Medicine 12/19/[address] [place] [address] [id number] [place], [place] [id number] Sid Lilly MD Orthopaedic Surgery 02/22/16 MD Alivia [address] [place], [place] [id number] [place] [address] Neda Boland, NANDINI Nurse Coordinator Neurology 02/23/16 09/01/18 documented as of this encounter
--- OUTSIDE RECORDS SUMMARY | 2021-10-24 11:58 | XMS_ITS | Encounter Summary ---
:1955 Author Organization [place] Address [address] [place] [address] Care Team Providers Name Role Phone Edison Tam MD Primary Care Provider Sheri Casey MD Unavailable Alphonso Billy MD Unavailable Roland Holt MD Unavailable Amita Ryan MD Unavailable Sid Lilly MD Unavailable [phone] Neda Boland RN Unavailable Encounter Details Date Type Department Care Team Description 01/28/2017 Orders Only Health Lab Other abnormal glucose ; 9 [facility] Abnormal finding of blood ch emistry ; 1st Floor Yossi's thyroiditis [place], [place] [phone] Social History Tobacco Use Types Packs/Day Years [...] Procedure Name Priority Date/Time Associated Comments Diagnosis TSH WITH FREE T4 Routine 01/28/2017 11:13 Yossi's Results for this REFLEX AM XEROX MACHINE MECHANIC thyroiditis procedure are i n the results section. LIPID REFLEX TO DIRECT Routine 01/28/2017 11:13 Abnormal findi ng of Results for this LDL PANEL AM XEROX MACHINE MECHANIC blood chemistry procedure are in Other abnormal the results glucose section. HEMOGLOBIN A1C Routine 01/28/2017 11:13 Other abnormal Results for this AM XEROX MACHINE MECHANIC glucose procedure are i n the results section. COMPREHENSIVE Routine 01/28/2017 11:13 Abnormal finding of Res ults for this METABOLIC PANEL AM XEROX MACHINE MECHANIC blood chemistry procedure are in the results section. documented in this encounter Results Comprehensive metabolic panel (01/28/2017 11:13 AM XEROX MACHINE MECHANIC) P athologist Signature Sodium 140 133 - 144 01/28/2017 [facility] mmol/L 12:02 PM [facility] Potassium 3.8 3.4 - 5.3 01/28/2017 [facility] mmol/L 12:02 PM [facility] Chloride 108 94 - 109 01/28/2017 [facility] mmol/L 12:02 PM [facility] Carbon Dioxide 23 20 - 32 01/28/2017 [facility] mmol/L 12:02 PM [facility] Anion Gap 9 3 - 14 01/28/2017 [facility] mmol/L 12:02 PM [facility] Glucose 82 70 - 99 01/28/2017 [facility] mg/dL 12:02 PM [facility] Urea Nitrogen 15 7 - 30 01/28/2017 [facility] mg/dL 12:02 PM [facility] Creatinine 0.82 0.52 - 01/28/2017 [facility] 1.04 mg/dL 12:02 PM [facility] GFR Estimate 71 >60 01/28/2017 [facility] mL/min/1.7 12:[address] Comment: Non GFR Calc GFR Estimate If 85 >60 mL/min/1.7m2 01/28/2017 12:02 PM [facility] Black [facility] Comment: GFR Calc Calcium 8.6 8.5 - 10.1 mg/dL 01/28/2017 12:02 PM [facility] Bilirubin Total 0.3 0.2 - 1.3 mg/dL 01/28/2017 12:02 P M [facility] Albumin 4.0 3.4 - 5.0 g/dL 01/28/2017 12:02 PM [facility] Protein Total 7.0 6.8 - 8.8 g/dL 01/28/2017 12:02 PM [facility] Alkaline Phosphatase 69 40 - 150 U/L 01/28/2017 12:02 PM [facility] ALT 39 0 - 50 U/L 01/28/2017 12:02 PM [facility] AST 23 0 - 45 U/L 01/28/2017 12:02 PM [facility] Specimen Anatomical Collection Method Collection Time Receive d Time (Source) Location / / Volume Laterality Blood specimen 01/28/2017 11:13 7 (specimen) AM XEROX MACHINE MECHANIC 11:15 AM XEROX MACHINE MECHANIC Edison Tam MD LAB - BLOOD ORDERABLES Performing Organization Address City/[facility]/ZIP Code Phon e Number [place] [phone] [facility] TSH with free T4 reflex (01/28/2017 11:13 AM XEROX MACHINE MECHANIC) athologist Signature TSH 2.12 0.40 - 4.00 01/28/2017 [facility] mU/L 12:02 PM [facility] Specimen Anatomical Collection Method Collection Time Receive d Time (Source) Location / / Volume Laterality Blood specimen 01/28/2017 11:13 7 (specimen) AM XEROX MACHINE MECHANIC 11:15 AM XEROX MACHINE MECHANIC Edison Tam MD LAB - BLOOD ORDERABLES Performing Organization Address City/State/ZIP Code Phon e Number [place] [phone] [facility] (ABNORMAL) Lipid panel reflex to direct LDL Fasting (01/28/2017 11:13 AM XEROX MACHINE MECHANIC) athologist Signature Cholesterol 191 <200 mg/dL 01/28/2017 [facility] 12:02 PM [facility] Triglycerides 150 (H) <150 mg/dL 01/28/2017 [facility] 12:02 PM [facility] Comment: Borderline high: ??150-199 mg/dl High: ? 200-499 mg/dl Very high: ? >499 mg/dl HDL Cholesterol 92 >49 mg/dL 01/28/2017 12:02 PM [facility] LDL Cholesterol 69 <100 mg/dL 01/28/2017 12:02 PM [facility] Calculated [facility] Comment: Desirable: <100 mg/dl Non HDL Cholesterol 99 <130 mg/dL 01/28/2017 12:[address] [facility] Specimen Anatomical Collection Method Collection Time Receive d Time (Source) Location / / Volume Laterality Blood specimen 01/28/2017 11:13 7 (specimen) AM XEROX MACHINE MECHANIC 11:15 AM XEROX MACHINE MECHANIC Edison Tam MD LAB - BLOOD ORDERABLES Performing Organization Address City/[facility] Phon e Number [place] [phone] [facility] HEMOGLOBIN A1C -(Today) (01/28/2017 11:13 AM XEROX MACHINE MECHANIC) P athologist Signature Hemoglobin A1C 5.3 4.3 - 6.0 01/28/2017 [facility] 11:56 AM [facility] Specimen Anatomical Collection Method Collection Time Receive d Time (Source) Location / / Volume Laterality Blood specimen 01/28/2017 11:13 7 (specimen) AM XEROX MACHINE MECHANIC 11:15 AM XEROX MACHINE MECHANIC Edison Tam MD LAB - BLOOD ORDERABLES Performing Organization Address City/[facility]/ZIP [facility] Phon e Number [address] [address] [phone] [facility] documented in this encounter Visit Diagnoses Diagnosis Other abnormal glucose Other abnormal glucose Abnormal finding of blood chemistry Other abnormal blood chemistry Yossi's thyroiditis Chronic lymphocytic thyroiditis documented in this encounter Additional Health Concerns Assessment Noted Time PHQ-9 Depression Total Score: 3 01/28/2017 10:28 AM CS T documented as of this encounter Care Teams Medical Education Coordinator Relationship Specialty Start Date End Date Edison Tam, PCP - General Family Practice 07/23/14 9[address] [facility] [address] [place], [place] [phone] Sheri Casey MD Pulmonary Disease 07/23/14 420 [facility] [address] [place], [place] [id number] Alphonso Billy MD Cardiology 08/12/[address] [place] [address] [id number] Roland Holt MD Resident Student in [facility] 05/12/15 09/24/18 [facility] education/training program Amita Ryan MD MD Internal Medicine 12/19/15 [address] [facility] [id number] [place], [place] [id number] Sid Lilly MD Orthopaedic Surgery 02/22/16 MD [facility] [address] [place], [place] [phone] Neda Boland, NANDINI Nurse Coordinator Neurology 02/23/16 09/01/18 documented as of this encounter
--- OUTSIDE RECORDS SUMMARY | 2021-10-24 11:58 | XMS_ITS | Encounter Summary ---
:1955 Author Organization [place] Address [address] [place] [address] Care Team Providers Name Role Phone Edison Tam MD Primary Care Provider Sheri Casey MD Unavailable Alphonso Billy MD Unavailable Roland Holt MD Unavailable Amita Ryan MD Unavailable Sid Lilly MD Unavailable [phone] Neda Boland RN Unavailable Reason for Visit Reason Onset Date Comments Refill Request 11/23/2016 prednisone 1 mg Encounter Details Date Type Department Care Team Description 11/23/2016 [place] [facility] Gastroenterology Charan Durán MD Refill Request and IBD Clinic [address] [place] [address] (prednisone 1 mg) 909 [place], [place] 4th Floor [address] [place] [phone] Social History Tobacco Use Types Packs/Day Years Used Date Former Smoker Cigarettes 1 18 11/11/1972 - 0 06/26/1981 Smokeless Tobacco: Former User Q uit: 09/20/1991 Alcohol Use Standard Drinks/Week Comments No 0 (1 standard drink = 0.6 oz pure alcoho l) Sex Assigned at Date Recorded Not on file documented as of this encounter Miscellaneous Notes Telephone Encounter - Harriett Lew RN - 11/23/2016 2:34 PM CDT Prednisone 1 mg Last Written Prescription Date: 05/22/16 Last Fill Quantity: 180, # refills: 1 Last Office Visit : 12/02/15 Future Office visit: No future appt scheduled Routing refill request to clinic RN for review/approval because: Drug not on the [facility], [facility] or Health refill protocol documented in this encounter Plan of Treatment Not on filedocumented as of this encounter Visit Diagnoses Diagnosis Crohn's disease without complication, un specified gastrointestinal tract location (H) documented in this encounter Additional Health Concerns Assessment Noted Time PHQ-9 Depression Total Score: 14 05/13/2015 7:50 AM CS T documented as of this encounter Care Teams Title Insurance Examiner Relationship Specialty Start Date End Date Edison Tam, PCP - General Family Practice 07/23/[address] [place] [address] [address] [place], [place] [address] Sheri Casey MD Pulmonary Disease 07/23/[address] [place] [address] [address] [place], [place] [address] Alphonso Billy MD Cardiology 08/12/[address] [place] [phone] Roland Holt MD Resident Student in [facility] 05/12/15 09/24/18 [facility] education/training program Amita Ryan MD MD Internal Medicine 12/19/[address] [place] [address] [id number] [place], [place] [address] Sid iLlly MD Orthopaedic Surgery 02/22/16 MD [facility] [facility] [address] [place] [address] Neda Boland, NANDINI Nurse Coordinator Neurology 02/23/16 09/01/18 documented as of this encounter
--- OUTSIDE RECORDS SUMMARY | 2021-10-24 11:58 | XMS_ITS | Encounter Summary ---
:1955 Author Organization [place] Address [address] [place] [address] Care Team Providers Name Role Phone Edison Tam MD Primary Care Provider Sheri Casey MD Unavailable Alphonso Billy MD Unavailable Roland Holt MD Unavailable Amita Ryan MD Unavailable Sid Lilly MD Unavailable [phone] Neda Boland RN Unavailable Encounter Details Date Type Department Care Team Description 02/08/2017 Orders Only [facility] Crohn's disease of both [address] [place] [address] small and large intestine 1st Floor with complication (H) [place] [address] Social History Tobacco Use Types [...] Name Priority Date/Time Associated Diagnosis Comme nts CBC WITH PLATELETS & Routine 02/08/2017 1:22 PM Crohn's diseas e of 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 documented in this encounter Results (ABNORMAL) CBC with platelets differential (02/08/2017 1:22 PM [facility]) [facility] gist Method Time Signature WBC 6.2 4.0 - 02/08/2017 [facility] 11.0 1:34 PM [facility] 10e9/L [facility] RBC Count 4.84 3.8 - 5.2 02/08/2017 [facility] 10e12/L 1:34 PM [facility] Hemoglobin 14.1 11.7 - 02/08/2017 [facility] 15.7 g/dL 1:34 PM [facility] Hematocrit 44.9 35.0 - 02/08/2017 [facility] 47.0 % 1:34 PM [facility] MCV 93 78 - 100 02/08/2017 [facility] fl 1:34 PM [facility] MCH 29.1 26.5 - 02/08/2017 [facility] 33.0 pg 1:34 PM [facility] MCHC 31.4 (L) 31.5 - 02/08/2017 [facility] 36.5 g/dL 1:34 PM [facility] RDW 12.5 10.0 - 02/08/2017 [facility] 15.0 % 1:34 PM [facility] Platelet Count 212 150 - 450 02/08/2017 [facility] 10e9/L 1:34 PM [facility] Diff Method Automated 02/08/2017 [facility] Method 1:34 PM [facility] % Neutrophils 65.7 % 02/08/2017 [facility] 1:34 PM [facility] % Lymphocytes 22.4 % 02/08/2017 [facility] 1:34 PM [facility] % Monocytes 10.2 % 02/08/2017 [facility] 1:34 PM [facility] % Eosinophils 1.0 % 02/08/2017 [facility] 1:34 PM [facility] % Basophils 0.5 % 02/08/2017 [facility] 1:34 PM [facility] % Immature 0.2 % 02/08/2017 [facility] Granulocytes 1:34 PM [facility] Nucleated RBCs 0 0 /100 02/08/2017 [facility] 1:34 PM [facility] Absolute 4.1 1.6 - 8.3 02/08/2017 [facility] Neutrophil 10e9/L 1:34 PM [facility] Absolute 1.4 0.8 - 5.3 02/08/2017 [facility] Lymphocytes 10e9/L 1:34 PM [facility] Absolute 0.6 0.0 - 1.3 02/08/2017 [facility] Monocytes 10e9/L 1:34 PM [facility] Absolute 0.1 0.0 - 0.7 02/08/2017 [facility] Eosinophils 10e9/L 1:34 PM [facility] Absolute 0.0 0.0 - 0.2 02/08/2017 [facility] Basophils 10e9/L 1:34 PM [facility] Abs Immature 0.0 0 - 0.4 02/08/2017 [facility] Granulocytes 10e9/L 1:34 PM [facility] Absolute 0.0 02/08/2017 [facility] Nucleated RBC 1:34 PM [facility] Specimen Anatomical Collection Method Collection Time Receive d Time (Source) Location / / Volume Laterality Blood specimen 02/08/2017 1:22 PM 017 1:24 (specimen) WIRE STRAIGHTENING MACHINE OPERATOR PM WIRE STRAIGHTENING MACHINE OPERATOR Edison Tam MD LAB - BLOOD ORDERABLES Performing Organization Address City/State/ZIP Code Phon e Number [address] [id number] [facility] CLINICS AND SUR[facility] documented in this encounter Visit Diagnoses Diagnosis Crohn's disease of both small and large intestine with complication (H) 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 documented in this encounter Additional Health Concerns Assessment Noted Time PHQ-9 Depression Total Score: 3 01/28/2017 10:28 AM CS T documented as of this encounter Care Teams Notereader Relationship Specialty Start Date End Date Edison Tam, PCP - General Family Practice 07/23/[address] [place] [address] Sheri Casey MD Pulmonary Disease 07/23/14 420 [facility] [address] [place] [address] Alphonso Billy MD Cardiology 08/12/[address] [place] [address] Roland Holt MD Resident Student in [facility] 05/12/15 09/24/18 [facility] education/training program Amita Ryan MD MD Internal Medicine 12/19/15 909 [id number] [place] [address] Sid Lilly MD Orthopaedic Surgery 02/22/16 MD [facility] [address] [place] [address] Neda Boland, RN Nurse Coordinator Neurology 02/23/16 09/01/18 documented as of this encounter
--- OUTSIDE RECORDS SUMMARY | 2021-10-24 11:58 | XMS_ITS | Encounter Summary ---
:1955 Author Organization [facility] Address [address] [place] [address]. [place] [address] Care Team Providers Name Role Phone Edison Tam MD Primary Care Provider Sheri Casey MD Unavailable Alphonso Billy MD Unavailable Roland Holt MD Unavailable Amita Ryan MD Unavailable Sid Lilly MD Unavailable [phone] Neda Boland RN Unavailable Reason for Visit Reason Comments Palpitations Encounter Details Date Type Department Care Team Description 04/22/2017 Emergency [facility] Allison Domínguez ail, Palpitations; Emergency Department Dizziness; [address] 2450 [facility] [place] [address] [place] [address] (Wo rk) Social History Tobacco Use Types [...] Sign Reading Time Taken Comments Blood Pressure 112/64 04/22/2017 1:00 PM ASSISTANT SERVICE MANAGER Pulse 100 04/22/2017 11:43 AM ASSISTANT SERVICE MANAGER Temperature 37.2 ??C (99 ??F) 04/22/2017 11:43 AM ASSISTANT SERVICE MANAGER Respiratory Rate 19 04/22/2017 1:00 PM ASSISTANT SERVICE MANAGER Oxygen Saturation 96% 04/22/2017 1:00 PM ASSISTANT SERVICE MANAGER Inhaled Oxygen Concentration - - Weight 54.4 kg (120 lb) 04/22/2017 11:43 AM ASSISTANT SERVICE MANAGER Height 157.5 cm (5' 2) 04/22/2017 11:43 AM ASSISTANT SERVICE MANAGER Body Mass Index 21.95 04/22/2017 11:43 AM ASSISTANT SERVICE MANAGER documented in this encounter Discharge Instructions Discharge InstructionsAllison Domínguez MD - 04/22/2017 1:18 PM ASSISTANT SERVICE MANAGER Thank you for your patience today. Please follow-up with your regular doctor in the next 2-3 days for further evaluation and follow-up care. Please call to schedule an appointment. Please continue yourown medications. Please rest and drink plenty of fluids. Please return to the ER if you develop severe chest pain, weakness, difficulty breathing, or any worsening of your current symptoms. It was a pleasure taking care of you today. We hope you feel better soon. STANT SERVICE MANAGER documented in this encounter Medications at Time of Discharge Medication Sig Dispensed Refills Start Date End Date acetaminophen (TYLENOL) 500 Take 500-1,000 mg 0 MG tablet by mouth every 8 hours as needed Calcium Citrate-Vitamin D Take 1 tablet by 0 (CITRACAL + D PO) mouth 2 times daily. Carboxymethylcellulose Apply to eye. 0 Sodium (REFRESH TEARS OP) fluorouracil (EFUDEX) 5 % Apply topically 40 g 0 02/03 creamIndications: AK to bilateral (actinic keratosis) forearms and hands twice daily guaiFENesin (MUCINEX) 600 MG Take 600 mg by 0 12 hr tablet mouth 2 times daily as needed. L-Lysine 500 MG TABS Take 1 tablet by 0 mouth daily Menthol, Topical Analgesic, Externally apply 0 (ICY HOT EX) topically. Patient uses Gel, Cream and Patch PRN ORDER FOR DME, SET TO LOCAL Equipment being 1 Can 3 05/2014 PRINT,Indications: Carbon ordered: portable monoxide exposure Oxygen with nasal cannula at 1-2 liters blood glucose monitoring (NO Use to test blood 100 each 01/28/2017 BRAND SPECIFIED) test sugars 2 to three stripIndications: Other times daily or as abnormal glucose directed cyanocobalamin (VITAMIN B12) Inject 1 mL 1 mL 2016 1000 MCG/ML (1,000 mcg) into injectionIndications: B12 the muscle every deficiency 30 days order for DMEIndications: Injection 12 each 0 01/28/2017 B12 deficiency Supplies for Vitamin B12: 3cc syringes w/ 29 gauge needles 1/2 inch length cholecalciferol (VITAMIN D) Take 1 tablet 100 tablet 3 04/0705/09/2017 1000 UNIT tabletIndications: (1,000 Units) by Osteopenia mouth daily Discontinue Vitamin D 61791 multivitamin (THERA-PLUS) Take 5 mLs by 0 05/09/2017 LIQD mouth daily. rOPINIRole (REQUIP) 1 MG Take 1 tablet (1 45 tablet 01/2805/09/2017 tabletIndications: Restless mg) by mouth At leg Bedtime May take 1/2 tab additional prn once daily. documented as of this encounter ED Notes Rocco Rojas RN - 04/22/2017 12:28 PM CST Patient to xray. STANT SERVICE MANAGER Rocco Rojas RN - 04/22/2017 12:00 PM CST Attempted to start PIV on patient. One failed attempt but able to draw blood. Labeled and sent to lab. STANT SERVICE MANAGER Maria Victoria Bello RN - 04/22/2017 11:40 AM CST Maria E comes in for palpitations today as well as CP and nausea that occurred on Saturday night. Shealso noticed swollen ankles, fatigue and dizziness since last Saturday. She tells me that she uses oxygen PRN at home whenever she thinks that she has been exposed to carbon monoxide. 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 Allison Adkins MD - 04/22/2017 11:17 AM CST History Chief Complaint Patient presents with ??? Palpitations HPI Maria E Coley is a 61 year old female with a past medical history of Crohn's disease, depression, anxiety who presents emergency department from home with complaint of palpitations. Patient reports that she has not been feeling well since Saturday. Patient reports she has had intermittent episodes of feeling dizziness, nausea, and some palpitations as if her heart was racing. Patient reports that on Saturday she was not feeling well and and felt dizzy and nauseous. Patient reports initially concern for carbon monoxide poisoning because she has been exposed in the past and currently has chronic CO over the past 3 years due to a leaky boiler however patient does wear a monitor that is been 0 so does not want any further testing. patient denies any fever, chills, vomiting, abdominal pain, difficulty breathing. Patient reports some occasional intermittent chest pain that is described as a pressure-like in her substernal region that has been intermittent for a while now. Pt also reports some lower extremity swelling which has improves since she elevated her legs last night. No sick contacts, no recent illnesses. When asked if patient is concerned about something today she has no specific concerns or complaints. Patient reports good oral intake. I have reviewed the Medications, Allergies, Past Medical and Surgical History, and Social History inthe [employer] system. Review of Systems Constitutional: Negative for chills and fever. HENT: Negative for congestion, rhinorrhea and sore throat. Eyes: Negative for discharge. Respiratory: Positive for chest tightness. Negative for cough and shortness of breath. Cardiovascular: Negative for chest pain and leg swelling. Gastrointestinal: Positive for nausea. Negative for abdominal pain, diarrhea and vomiting. Endocrine: Negative for polyuria. Genitourinary: Negative for dysuria and flank pain. Musculoskeletal: Negative for back pain and myalgias. Skin: Negative for rash. Allergic/Immunologic: Negative for immunocompromised state. Neurological: Positive for dizziness. Negative for weakness and headaches. Hematological: Does not bruise/bleed easily. Psychiatric/Behavioral: Negative for confusion and suicidal ideas. Physical Exam BP: 114/59 Pulse: 100 Temp: 99 ??F (37.2 ??C) Resp: 20 Height: 157.5 cm (5' 2) Weight: 54.4 kg (120 lb) SpO2: 97 % Physical Exam Constitutional: She is oriented to person, place, and time. She appears well- developed. No distress. HENT: Head: Normocephalic and atraumatic. Right Ear: External ear normal. Left Ear: External ear normal. Mouth/Throat: Oropharynx is clear and moist. Eyes: Conjunctivae and EOM are normal. Pupils are equal, round, and reactive to light. Neck: Normal range of motion. Neck supple. Cardiovascular: Normal rate, regular rhythm and normal heart sounds. Pulmonary/Chest: Effort normal and breath sounds normal. No respiratory distress. She has no wheezes. She has no rales. Abdominal: Soft. She exhibits no distension. There is no tenderness. There is no rebound and no guarding. Musculoskeletal: Normal range of motion. She exhibits no tenderness or deformity. Neurological: She is alert and oriented to person, place, and time. No cranial nerve deficit. Coordination normal. Skin: Skin is warm and dry. No rash noted. Psychiatric: Her behavior is normal. Odd affect ED Course ED Course Procedures EKG Interpretation: Interpreted by Allison Domínguez Time reviewed: 1150 Symptoms at time of EKG: weakness Rhythm: sinus rhythm with occasional pvc's Rate: normal Bohannon: normal ST Segments/ T Waves: No ST-T wave changes Q Waves: none Comparison to prior: apr 15 2013 w/ sinus rhythm, no pvcs Clinical Impression: normal EKG with occasional pvcs Critical Care time: none Labs Ordered and Resulted from Time of ED Arrival Up to the Time of Departure from the ED BASIC METABOLIC PANEL - Abnormal; Notable for the following: Result Value Calcium 8.2 (*) All other components within normal limits CBC WITH PLATELETS DIFFERENTIAL TROPONIN I TSH WITH FREE T4 REFLEX Assessments & Plan (with Medical Decision Making) Maria E Coley is a 61 year old female with a past medical history of Crohn's disease, depression, anxiety who presents emergency department from home with complaint of palpitations. Upon arrival patient is well-appearing, afebrile, no distress. Patient with unremarkable physical exam. Patient has multiple complaints that have been ongoing for the past 5-7 days consistent with dizziness, nausea, some intermittent chest pain. She does not want any testing for carbon monoxide as her monitor states0. At this time plan for EKG, labs, and reevaluate. I reviewed EKG which demonstrated sinus rhythm with occasional PVCs with no acute ischemic change. I reviewed comprehensive labs which are unremarkable with no leukocytosis, no anemia, no acute metabolic or electrolyte abnormality. Troponin negative.Review chest x-ray which is unremarkable with no acute infiltrate, edema, no acute findings. I discussed results with patient at this time patient with resolution of symptoms, patient is feeling betterwith resolution of her symptoms in the emergency room and like to be discharged home. At this time plan for discharge home with continued supportive care, rest, oral hydration, recommend follow-up withher primary care physician in the next 3-5 days. Return precautions discussed if increasing weakness, chest pain, difficulty breathing, numbers or symptoms. Patient understands and agrees with plan. .The Nursing documentation prior records were reviewed in the medical record. I personally reviewed, interpreted, and discussed with the patient the results of labs, imaging, studies, and EKG as reported in the medical record. .The patient is discharged home with instructions to return if their symptoms persist or worsen. Plan for close follow-up with their primary physician. I discussed workup, results, treatment, and plan with the patient. Patient understands and agrees with the plan. I have reviewed the nursing notes. I have reviewed the findings, diagnosis, plan and need for follow up with the patient. New Prescriptions No medications on file Final diagnoses: Palpitations Dizziness Nausea 04/22/2017 [facility], EMERGENCY DEPARTMENT Allison Domínguez MD 04/22/17 1321 STANT SERVICE MANAGER documented in this encounter Plan of Treatment Not on filedocumented as of this encounter Procedures Procedure Name Priority Date/Time Associated Comments Diagnosis XR CHEST 2 VIEWS STAT 04/22/2017 12:32 Results for this PM ASSISTANT SERVICE MANAGER procedure are i n the results section. CBC WITH PLATELETS & STAT 04/22/2017 12:18 Res ults for this DIFFERENTIAL PM ASSISTANT SERVICE MANAGER procedure are i n the results section. TSH WITH FREE T4 Routine 04/22/2017 12:18 Results for this REFLEX PM ASSISTANT SERVICE MANAGER procedure are i n the results section. TROPONIN I STAT 04/22/2017 12:18 Results for this PM ASSISTANT SERVICE MANAGER procedure are i n the results section. BASIC METABOLIC PANEL STAT 04/22/2017 12:18 Re sults for this PM ASSISTANT SERVICE MANAGER procedure are i n the results section. EKG 12-LEAD, TRACING STAT 04/22/2017 11:49 Res ults for this ONLY AM ASSISTANT SERVICE MANAGER procedure are i n the results section. documented in this encounter Results XR Chest 2 Views (04/22/2017 12:32 PM ASSISTANT SERVICE MANAGER) Anatomical Region Laterality Modality Chest Digital Radiography Specimen (Source) Anatomical Location Collection Method / Collectio n Time Received Time / Laterality Volume Impressions 04/22/2017 3:04 PM ASSISTANT SERVICE MANAGER IMPRESSION: No acute cardiopulmonary abnormality. I have personally reviewed the examinati on and initial interpretation and I agree with the findings. JAKE WEATHERS MD Narrative 04/22/2017 3:04 PM ASSISTANT SERVICE MANAGER XR CHEST 2 VW ??04/22/2017 12:32 PM ?? HISTORY: chest pain, sob; COMPARISON: Chest radiograph 12/01/2014 FINDINGS: The cardiomediastinal silhouet te and pulmonary vasculature are within normal limits. No focal pulmo nary opacity. No pleural effusion or pneumothorax are identified. No suspicious osseous lesion. Upper abdomen is unremarkable. Procedure Note Jake Weathers MD - 04/22/2017F ormatting of this note might be different from the original. XR CHEST 2 VW 04/22/2017 12:32 PM HISTORY: chest pain, sob; COMPARISON: Chest radiograph 12/01/2014 FINDINGS: The cardiomediastinal silhouet te and pulmonary vasculature are within normal limits. No focal pulmo nary opacity. No pleural effusion or pneumothorax are identified. No suspicious osseous lesion. Upper abdomen is unremarkable. IMPRESSION: No acute cardiopulmonary abn ormality. I have personally reviewed the examinati on and initial interpretation and I agree with the findings. JAKE WEATHERS MD Allison Domínguez MD IMG DIAGNOSTIC IMAGING ORDER EB TSH with free T4 reflex (04/22/2017 12:18 PM ASSISTANT SERVICE MANAGER) P athologist Signature TSH 3.72 0.40 - 4.00 04/22/2017 [facility] mU/L 1:02 PM [facility] Specimen Anatomical Collection Method Collection Time Receive d Time (Source) Location / / Volume Laterality 04/22/2017 12:18 04/22/2017 PM ASSISTANT SERVICE MANAGER 12:34 PM ASSISTANT SERVICE MANAGER Allison Domínguez MD LAB - BLOOD ORDERABLES Performing Organization Address City/[facility]/ZIP Code Phon e Number [facility] [address] [place] [address] [facility] Troponin I (04/22/2017 12:18 PM ASSISTANT SERVICE MANAGER) P athologist Signature Troponin I ES <0.015 0.000 - 04/22/2017 [facility] 0.045 ug/L 12:58 PM [facility] Comment: The 99th percentile for upper reference range is 0.045 ug/L. ??Troponin values in the range of 0.045 - 0.120 ug/L may b e associated with risks of adverse clinical events. Specimen Anatomical Collection Method Collection Time Receive d Time (Source) Location / / Volume Laterality Blood specimen 04/22/2017 12:18 8 (specimen) PM ASSISTANT SERVICE MANAGER 12:34 PM ASSISTANT SERVICE MANAGER Allison Domínguez MD LAB - BLOOD ORDERABLES Performing Organization Address City/[facility]/ZIP Code Phon e Number [facility] [address] [place] [address] [facility] (ABNORMAL) Basic metabolic panel (04/22/2017 12:18 PM ASSISTANT SERVICE MANAGER) P athologist Signature Sodium 141 133 - 144 04/22/2017 [facility] mmol/L 12:58 PM [facility] Potassium 3.7 3.4 - 5.3 04/22/2017 [facility] mmol/L 12:58 PM [facility] Chloride 109 94 - 109 04/22/2017 [facility] mmol/L 12:58 PM [facility] Carbon Dioxide 25 20 - 32 04/22/2017 [facility] mmol/L 12:58 PM [facility] Anion Gap 7 3 - 14 04/22/2017 [facility] mmol/L 12:58 PM [facility] Glucose 82 70 - 99 04/22/2017 [facility] mg/dL 12:58 PM [facility] Urea Nitrogen 10 7 - 30 04/22/2017 [facility] mg/dL 12:58 PM [facility] Creatinine 0.84 0.52 - 04/22/2017 [facility] 1.04 mg/dL 12:58 PM [facility] GFR Estimate 69 >60 04/22/2017 [facility] mL/min/1.7 12:[address] Comment: Non GFR Calc GFR Estimate If 83 >60 mL/min/1.7m2 04/22/2017 12:58 PM [facility] Black [facility] Comment: GFR Calc Calcium 8.2 (L) 8.5 - 10.1 mg/dL 04/22/2017 12:58 PM ASSISTANT SERVICE MANAGER [facility] Specimen Anatomical Collection Method Collection Time Receive d Time (Source) Location / / Volume Laterality Blood specimen 04/22/2017 12:18 8 (specimen) PM ASSISTANT SERVICE MANAGER 12:34 PM ASSISTANT SERVICE MANAGER Allison Domínguez MD LAB - BLOOD ORDERABLES Performing Organization Address City/State/ZIP Code Phon e Number [facility] [address] [place] [address] [facility] CBC with platelets differential (04/22/2017 12:18 PM ASSISTANT SERVICE MANAGER) [facility] gist Method Time Signature WBC 6.1 4.0 - 04/22/2017 [facility] 11.0 12:37 PM [facility] 10e9/L [facility] RBC Count 4.55 3.8 - 5.2 04/22/2017 [facility] 10e12/L 12:37 PM [facility] Hemoglobin 13.4 11.7 - 04/22/2017 [facility] 15.7 g/dL 12:37 PM [facility] Hematocrit 41.8 35.0 - 04/22/2017 [facility] 47.0 % 12:37 PM [facility] MCV 92 78 - 100 04/22/2017 [facility] fl 12:37 PM [facility] MCH 29.5 26.5 - 04/22/2017 [facility] 33.0 pg 12:37 PM [facility] MCHC 32.1 31.5 - 04/22/2017 [facility] 36.5 g/dL 12:37 PM [facility] RDW 12.6 10.0 - 04/22/2017 [facility] 15.0 % 12:37 PM [facility] Platelet Count 179 150 - 450 04/22/2017 [facility] 10e9/L 12:37 PM [facility] Diff Method Automated 04/22/2017 [facility] Method 12:37 PM [facility] % Neutrophils 70.3 % 04/22/2017 [facility] 12:37 PM [facility] % Lymphocytes 19.5 % 04/22/2017 [facility] 12:37 PM [facility] % Monocytes 9.4 % 04/22/2017 [facility] 12:37 PM [facility] % Eosinophils 0.5 % 04/22/2017 [facility] 12:37 PM [facility] % Basophils 0.3 % 04/22/2017 [facility] 12:37 PM [facility] % Immature 0.0 % 04/22/2017 [facility] Granulocytes 12:37 PM [facility] Nucleated RBCs 0 0 /100 04/22/2017 [facility] 12:37 PM [facility] Absolute 4.3 1.6 - 8.3 04/22/2017 [facility] Neutrophil 10e9/L 12:37 PM [facility] Absolute 1.2 0.8 - 5.3 04/22/2017 [facility] Lymphocytes 10e9/L 12:37 PM [facility] Absolute 0.6 0.0 - 1.3 04/22/2017 [facility] Monocytes 10e9/L 12:37 PM [facility] Absolute 0.0 0.0 - 0.7 04/22/2017 [facility] Eosinophils 10e9/L 12:37 PM [facility] Absolute 0.0 0.0 - 0.2 04/22/2017 [facility] Basophils 10e9/L 12:37 PM [facility] Abs Immature 0.0 0 - 0.4 04/22/2017 [facility] Granulocytes 10e9/L 12:37 PM [facility] Absolute 0.0 04/22/2017 [facility] Nucleated RBC 12:37 PM [facility] Specimen Anatomical Collection Method Collection Time Receive d Time (Source) Location / / Volume Laterality Blood specimen 04/22/2017 12:18 8 (specimen) PM ASSISTANT SERVICE MANAGER 12:34 PM ASSISTANT SERVICE MANAGER Allison Domínguez MD LAB - BLOOD ORDERABLES Performing Organization Address City/State/ZIP Code Phon e Number [facility] [address] [place] [address] [facility] EKG 12-lead, tracing only (04/22/2017 11:49 AM ASSISTANT SERVICE MANAGER) [facility] gist Method Time Signature Interpretation ECG Click View RADIOLOGY Image link RESULTS to view waveform and result Specimen (Source) Anatomical Collection Method Collection Time Re ceived Time Location / / Volume Laterality 04/22/2017 11:49 AM ASSISTANT SERVICE MANAGER Allison Domínguez MD ECG ORDERABLES Performing Organization Address City/State/ZIP Code Phon e Number RADIOLOGY RESULTS documented in this encounter Visit Diagnoses Diagnosis Palpitations Dizziness Dizziness and giddiness Nausea Nausea alone documented in this encounter Additional Health Concerns Assessment Noted Time PHQ-9 Depression Total Score: 3 01/28/2017 10:28 AM CS T documented as of this encounter Care Teams Telecommunications Engineer Relationship Specialty Start Date End Date Edison Tam, PCP - General Family Practice 07/23/[address] [place] [address] [address] [place] [address] Sheri Casey MD Pulmonary Disease 07/23/[address] [place] [address] [facility] [address] [place] [address] Alphonso Billy MD Cardiology 08/12/[address] [id number] Roland Holt MD Resident Student in [facility] 05/12/15 09/24/18 [facility] education/training program Amita Ryan MD MD Internal Medicine 12/19/[address] [place] [address] [id number] [place], [place] [id number] Sid Lilly MD Orthopaedic Surgery 02/22/16 MD Alivia [facility] [place], [place] [id number] Neda Boland, NANDINI Nurse Coordinator Neurology 02/23/16 09/01/18 documented as of this encounter
--- OUTSIDE RECORDS SUMMARY | 2021-10-24 11:58 | XMS_ITS | Encounter Summary ---
:1955 Author Organization [facility] Address [address] [place] [address] Care Team Providers Name Role Phone Edison Tam MD Primary Care Provider Sheri Casey MD Unavailable Alphonso Billy MD Unavailable Roland Holt MD Unavailable Amita Ryan MD Unavailable Sid Lilly MD Unavailable [phone] Neda Boland RN Unavailable Reason for Referral Consultation - Closed Specialty Diagnoses / Procedures Referred By Contact Refer red To Contact Diagnoses Senile osteoporosis Edison Tam MD [address] [place] [address] 0645 5 Referral ID Status Reason Start Date Expiration Date Visits Requ ested Visits Authorized [id number] Closed 05/07/2017 05/07/2018 1 1 GER SCIENCE Reason for Visit Reason Onset Date Comments Orders 05/07/2017 DEXA shows osteoporo sis Encounter Details Date Type Department Care Team Description 05/07/2017 Telephone [facility] MD Marcia osteoporosis) [address] [place] [address] [facility] 4th Floor [place] [address] [place] [address] [id number] Social History Tobacco Use Types Packs/Day Years Used Date Former Smoker Cigarettes 1 18 11/11/1972 - 0 06/26/1981 Smokeless Tobacco: Former User Q uit: 09/20/1991 Alcohol Use Standard Drinks/Week Comments No 0 (1 standard drink = 0.6 oz pure alcoho l) Sex Assigned at Date Recorded Not on file documented as of this encounter Miscellaneous Notes Telephone Encounter - Edison Tam MD - 05/07/2017 11:24 AM MANAGER SCIENCE UMP: [facility] [place] Please call her as she needs endocrinology appt for osteoporosis management options.. Best wishes, Edison Tam MD May 08, 2017 10:35 AM Attempted to contact patient to discuss. No answer and voicemail was full, so unable to leave message. Will try again later. Nena Bailey RN, Public Address System Operator May 10, 2017 1:00 PM Spoke with patient. She has appointment scheduled for Endocrinology in June. Nena Bailey RN, Public Address System Operator GER SCIENCE documented in this encounter Plan of Treatment Scheduled Referrals Name Type Priority Associated Diagnoses Order S [facility] ENDOCRINOLOGY ADULT Referral Routine Senile osteoporosis O rdered: 05/07/2017 REFERRAL documented as of this encounter Visit Diagnoses Diagnosis Senile osteoporosis - Primary documented in this encounter Additional Health Concerns Assessment Noted Time PHQ-9 Depression Total Score: 3 01/28/2017 10:28 AM CS T documented as of this encounter Care Teams Technical Services Consultant Relationship Specialty Start Date End Date Edison Tam, PCP - General Family Practice 07/23/[address] [place] [address] [address] [place], [place] [phone] Sheri Casey MD Pulmonary Disease 07/23/[address] [place] [address] Alphonso Billy MD Cardiology 08/12/14 8 [address] [place], [place] [address] Roland Holt MD Resident Student in [facility] 05/12/15 09/24/18 [facility] education/training program Amita Ryan MD MD Internal Medicine 12/19/15 [address] [facility] [id number] [place], [place] [id number] Sid Lilly MD Orthopaedic Surgery 02/22/16 MD Alivia [facility] [address] [facility] [address] [place], [place] [id number] Neda Boland, RN Nurse Coordinator Neurology 02/23/16 09/01/18 documented as of this encounter
--- OUTSIDE RECORDS SUMMARY | 2021-10-24 11:58 | XMS_ITS | Encounter Summary ---
:1955 Author Organization [facility] Address [address] [place] [address] Care Team Providers Name Role Phone Edison Tam MD Primary Care Provider Sheri Casey MD Unavailable Alphonso Billy MD Unavailable Roland Holt MD Unavailable Amita Ryan MD Unavailable Sid Lilly MD Unavailable [phone] Neda Boland RN Unavailable Reason for Referral Therapeutic Procedure Only - Closed Specialty Diagnoses / Procedures Referred By Contact Refer red To Contact Diagnoses Tendinopathy of rotator cuff, left Christiano Barnes DO Procedures TRIAMCINOLONE ACET INJ NOS [address] [place], [place] [address] Referral ID Status Reason Start Date Expiration Date Visits Requ ested Visits Authorized [id number] Closed 04/28/2017 04/28/2018 1 1 AM Physical Therapy - Closed Specialty Diagnoses / Procedures Referred By Contact Refer red To Contact Diagnoses Tendinopathy of rotator cuff, left Tendinopathy of rotator cuff, right Christiano Barnes DO [address] [place], [place] [address] Referral ID Status Reason Start Date Expiration Date Visits Requ ested Visits Authorized [id number] Closed 04/27/2017 04/27/2018 1 1 iagnostic Imaging XR - Closed Specialty Diagnoses / Procedures Referred By Contact Refer red To Contact Diagnoses Chronic pain of both shoulders Christiano Barnes DO Procedures XR Shoulder 3 View Bilateral [address] [place] [address] 5 Referral ID Status Reason Start Date Expiration Date Visits Requ ested Visits Authorized [id number] Closed 04/27/2017 04/27/2018 1 1 SION OPERATIONS SPECIALIST Reason for Visit Reason Comments Consult Bilateral Shoulders Encounter Details Date Type Department Care Team Description 04/27/2017 [facility] Visit [facility] Christian[facility] Barnes, Chron ic pain of both shoulders (Primary Dx); Orthopaedic Walk In DO Tendinopathy of rotator cuff, left; Clinic [address] [place] [address] Tendinopathy of rotator cuff, right [address] [place] [address] [address] [place] [address] [phone] (Work) [phone] Social History Tobacco Use Types Packs/Day Years [...] Time Taken Comments Blood Pressure 111/74 04/27/2017 11:39 AM DIVISION OPERATIONS SPECIALIST Pulse - - Temperature - - Respiratory Rate - - Oxygen Saturation - - Inhaled Oxygen Concentration - - Weight 54.4 kg (120 lb) 04/27/2017 11:39 AM DIVISION OPERATIONS SPECIALIST Height 157.5 cm (5' 2) 04/27/2017 11:39 AM DIVISION OPERATIONS SPECIALIST Body Mass Index 21.95 04/27/2017 11:39 AM DIVISION OPERATIONS SPECIALIST documented in this encounter Patient Instructions Patient InstructionsChristiano Barnes, - 04/27/2017 11:10 AM CST Images from the original note were not included. Neck Spasm Exercises You may do all of these exercises right away but avoid any movements that increase your pain. Neck rotation with flexion Right side: Turn your head to the right and clasp your hands behind your head. Let the weight of your arms pull your chin to the right side of your chest. Relax. Hold for a count of 15. Do this 3 times. Left side: Turn your head to the left and clasp your hands behind your head. Let the weight of your arms pull your chin to the left side of your chest. Relax. Hold for a count of 15. Do this 3 times. Chin tuck: Place your fingertips on your chin and gently push your head straight back as if you are trying to make a double chin. Keep looking forward as your head moves back. Hold 5 seconds and repeat5 times. Scalene stretch: Sit or stand and clasp both hands behind your back. Lower your left shoulder and tilt your head toward the right until you feel a stretch. Hold this position for 15 to 30 seconds and then come back to the starting position. Then lower your right shoulder and tilt your head toward the left. Hold for 15 to 30 seconds. Repeat 3 times on each side. Neck rotation stretch Right side: Rotate your neck by looking over your right shoulder. Lift your right hand and place your palm on the left side of your chin. Push your chin with your palm toward your right shoulder. Hold for a count of 10. Do this 3 times. Left side: Rotate your neck by looking over your left shoulder. Lift your left hand and place your palm on the right side of your chin. Push your chin with your palm toward your left shoulder. Hold fora count of 10. Do this 3 times. Scapular squeeze: While sitting or standing with your arms by your sides, squeeze your shoulder blades together and hold for 5 seconds. Do 2 sets of 15. Thoracic extension: Sit in a chair and clasp both arms behind your head. Gently arch backward and look up toward the ceiling. Repeat 10 times. Do this several times each day. Head lift with neck curl: Lie on your back with your knees bent and your feet flat on the floor. Tuck your chin and lift your head about 3 inches off the floor, keeping your shoulders flat on the floor. Hold for 10 seconds. Repeat 5 times. Try to work up to holding for 20 to 30 seconds. SION OPERATIONS SPECIALIST documented in this encounter Progress Notes Krystina Anaya ATC - 04/27/2017 11:10 AM CST SPORTS & ORTHOPEDIC WALK-IN VISIT 04/27/2017 Primary Care Physician: Dr. Tam Started on Right shoulder when knitting, now worse in the left. Burn going down lateral arm with numbness/tingling down through hand. Pain in shoulder when supporting elbow on something. ROM decreased.Most painful at night, unable to sleep on left side. Pt also states she does an exercise where she twists from the hips and even that bothers her. Also fell this morning and caught herself in a FOOSH, so pain is worse. Reason for visit: ?? What part of your body is injured / painful? bilateral shoulder ?? What caused the injury /pain? Overuse injury from regular activity ?? How long ago did your injury occur or pain begin? several months ago ?? What are your most bothersome symptoms? Pain, Numbness and Tingling ?? How would you characterize your symptom? Aching and burning, sometimes sharp ?? What makes your symptoms better? Other: immobilization, oxygen (prescribed due to monoxide exposure) ?? What makes your symptoms worse? Movement ?? Have you been previously seen for this problem? Yes, [facility] Medical History: ?? Any recent changes to your medical history? No ?? Any new medication prescribed since last visit? No ?? Have you had surgery on this body part before? No Social History: ?? Occupation: Retired ?? Handedness: Right ?? Exercise: Most days/week Review of Systems: ?? Do you have fever, chills, weight loss? Yes, chills and a slight fever last week ?? Do you have any vision problems? Yes, has not had it looked at before ?? Do you have any chest pain or edema? Yes, went to ER ?? Do you have any shortness of breath or wheezing? Yes, see above ?? Do you have stomach problems? Yes, See above ?? Do you have any numbness or focal weakness? Yes, foot numbness ?? Do you have diabetes? No ?? Do you have problems with bleeding or clotting? No ?? Do you have an rashes or other skin lesions? No SION OPERATIONS SPECIALIST Christiano Barnes DO - 04/27/2017 11:10 AM CST CHIEF COMPLAINT: Consult (Bilateral Shoulders) HISTORY OF PRESENT ILLNESS Ms. Coley is a pleasant 61 year old year old female who presents to clinic today with pain of bilateral shoulders. Maria E explains that she initially experienced right shoulder pain and couple of months ago which was exacerbated by knitting. This subsided somewhat, but she believes she was using her left hand to compensate. Now she believes her left shoulder is more painful than the right. Pain is located about the lateral aspects of the shoulders and the deltoid regions. She has pain with overhead motion. Pain is described as aching and burning. She does have occasional numbness and tingling into her left forearm and hand, but this is rare. Treatments to date have included immobilization. Denies neck pain. Additional history: as documented MEDICAL HISTORY Patient Active Problem List Diagnosis ??? Yossi's [...] female ??? Pneumaturia ??? Carbon monoxide exposure Current Outpatient Prescriptions Medication Sig Dispense Refill [...] Units) by mouth daily Discontinue Vitamin D 91476 100 tablet 3 ??? acetaminophen (TYLENOL) 500 [...] 1 tablet by mouth 2 times daily. Allergies Allergen Reactions ??? Humira Rash ??? [...] Profound lethargy ??? Tramadol Itching and Rash Family History Problem Relation Age of Onset ??? Arthritis Sister Sjogrens twin sister ??? Neurologic Disorder Sister Multiple sclerosis older sister ??? Lung Cancer Mother 68 ??? Endocrine Disease Mother Hashimotos ??? Endocrine Disease Sister Hashimotos both sisters ??? Colon Cancer No family hx of ??? Crohn Disease No family hx of ??? Ulcerative Colitis No family hx of ??? Colon Polyps No family hx of ??? Glaucoma No family hx of ??? Macular Degeneration No family hx of ??? Asthma Brother ??? DIABETES Paternal Grandmother ??? Depression Sister ??? Anxiety Disorder Sister ??? Anxiety Disorder Sister ??? Substance Abuse Brother ??? Asthma Brother ??? Thyroid Disease Sister ??? Thyroid Disease Sister ??? Other Cancer Mother lung ??? Depression Sister ??? Anxiety Disorder Sister ??? Substance Abuse Brother ??? Asthma Brother ??? OSTEOPOROSIS Father ??? Thyroid Disease Sister ??? CANCER Mother lung ??? Thyroid Disease Sister , ??? Depression Mother ??? Depression Sister ??? Substance Abuse Brother ??? Congenital Anomalies Sister ??? Thyroid Disease Mother , ??? Thyroid Disease Sister , ??? Muscular Disorder Sister MS Additional medical/Social/Surgical histories reviewed in [facility] and updated as appropriate. REVIEW OF SYSTEMS (04/27/2017) CONSTITUTIONAL: Recent chills and fever last night EYES: Denies acute vision changes ENT: Denies hearing changes or difficulty swallowing CARDIAC: Denies current chest pain or lower extremity edema RESPIRATORY: Denies dyspnea, cough or wheeze GASTROINTESTINAL: No current nausea or vomiting MUSCULOSKELETAL: See HPI SKIN: Denies any recent rash or lesion NEUROLOGICAL: Occasional numbness and tingling into her hands ENDOCRINE: Denies current diagnosis of diabetes HEMATOLOGY: Denies episodes of easy bleeding PHYSICAL EXAM BP 111/74 Ht 1.575 m (5' 2) Wt 54.4 kg (120 lb) BMI 21.95 kg/m2 General - normal appearance, in no obvious distress CV - normal radial pulse Pulm - normal respiratory pattern, non-labored Musculoskeletal -bilateral shoulders - inspection: normal bone and joint alignment, no obvious deformity, no scapular winging, no AC step-off - palpation: mildly tender RC insertions L>R, normal clavicle, non-tender AC - ROM: painful and limited flexion and ER at end range bilaterally, limited IR on left - strength: 5/5 spray cementer strength, 5/5 in all shoulder planes - special tests: (-) Speed's (+) Neer bilat (+) Hawkin's bilat (+) Reddy's L>>R (-) Chippewa's (-) apprehension (-) subscap lift-off Cervical: Grossly normal, painless ROM. Negative spurling's test. No paraspinal tenderness to palpation. Neuro - no sensory or motor deficit, grossly normal coordination, normal muscle tone Skin - no ecchymosis, erythema, warmth, or induration, no obvious rash Psych - interactive, appropriate, normal mood and affect IMAGING : XR shoulders 4 view. Final results and radiologist's interpretation, available in the [facility] record. Images were reviewed with the patient/family members in the office today. My personalinterpretation of the performed imaging is no acute osseous abnormalities. Glenohumeral joints is normal joint space. Mild generation of acromioclavicular joints. ASSESSMENT & PLAN Ms. Coley is a 61 year old year old female who presents to clinic today with left greater than right shoulder pain. Clinical examination is consistent with rotator cuff tendinopathy which is more symptomatic on the left side. There may be an additional component of cervical radiculopathy, however this is much less prevalent. We discussed options at length and we will start with a left subacromialbursal injection under ultrasound guidance. She will be enrolled in physical therapy for bilateral rotator cuff programs, scapular stabilization and strengthening. A home exercise program for cervical impingement was also demonstrated and given as adjunct to PT. Diagnosis: Bilateral rotator cuff tendinopathy Follow-up in 6 weeks Subacromial Bursa LEFT - Ultrasound Guided The patient was informed of the risks and the benefits of the procedure and a written consent was signed. The patient???s LEFT shoulder was prepped with chlorhexidine in sterile fashion. 40 mg of triamcinolone suspension was drawn up into a 5 mL syringe with 2 mL of 2% lidocaine. Injection was performed using sterile technique. Under ultrasound guidance a 1.5-inch 25-gauge needle was used to enter the subacromial bursa. Anterolateral approach was used with arm held in Crass position. Needle placement was visualized and documented with ultrasound. Ultrasound visualization was ne cessary to ensure placement in to the bursa and not the rotator cuff tendon which could potentially cause further tendon damage. Injection performed long axis to the probe. Injection solution visualized within the joint space. Images were permanently stored for the patient's record. There were no complications. The patient tolerated the procedure well. There was negligible bleeding. The patient was instructed to ice the shoulder upon leaving clinic and refrain from overuse over thenext 3 days. The patient was instructed to call or go to the emergency room with any unusual pain, swelling, redness, or if otherwise concerned. A follow up appointment will be scheduled to evaluate response to the injection, and to assess rangeof motion and pain. It was a pleasure seeing Maria E today. Christiano Barnes DO, CAQSM Primary Care Sports Medicine SION OPERATIONS SPECIALIST documented in this encounter Nursing Notes Krystina Anaya ATC - 04/27/2017 11:10 AM CST [facility] SPORTS MEDICINE [address] [place] [phone] Dept: [phone] Patient: Maria E Coley : 1955 April 27, 2017 INVASIVE PROCEDURE SAFETY CHECKLIST Date: 08/17/2016 Procedure: Left shoulder kenalog injection Patient Name: Maria E Coley Date of : 1955 Action: Complete sections as appropriate. Any discrepancy results in a HARD COPY until resolved. PRE PROCEDURE: Patient ID verified with 2 identifiers (name and or MRN): Yes Procedure and site verified with patient/designee (when able): Yes Accurate consent documentation in medical record: Yes H&P (or appropriate assessment) documented in medical record: Yes H&P must be up to 20 days prior to procedure and updates within 24 hours of procedure as applicable: NA Relevant diagnostic and radiology test results appropriately labeled and displayed as applicable: Yes Procedure site(s) marked with provider initials: Yes TIMEOUT: Time-Out performed immediately prior to starting procedure, including verbal and active participation of all team members addressing the following:Yes * Correct patient identify * Confirmed that the correct side and site are marked * An accurate procedure consent form * Agreement on the procedure to be done * Correct patient position * Relevant images and results are properly labeled and appropriately displayed * The need to administer antibiotics or fluids for irrigation purposes during the procedure as applicable * Safety precautions based on patient history or medication use DURING PROCEDURE: Verification of correct person, site, and procedures any time the responsibility for care of the patient is transferred to another member of the care team. The following medication was given: MEDICATION: Kenalog 40 mg ROUTE: intra articular SITE: left shoulder DOSE: 1 cc LOT #: [id number] ONION TIER: ClasesD EXPIRATION DATE: [facility]#: [id number] Was there drug waste? No MEDICATION: Lidocaine 2% Soln ROUTE: Intra articular SITE: left shoulder DOSE: 4 cc LOT #: [id number] ONION TIER: Endosee EXPIRATION DATE: 09/27 [facility]#: [id number] Was there drug waste? Yes Amount of drug waste (mL): 16. Reason for waste: Single use vial Krystina Anaya ATC April 27, 2017 SION OPERATIONS SPECIALIST documented in this encounter Plan of Treatment Scheduled Referrals Name Type Priority Associated Diagnoses Order S chedule PHYSICAL THERAPY Referral Routine Tendinopathy of rotator Ordered: 04/27/2017 REFERRAL (Internal) cuff, left Tendinopathy of rotator cuff, right documented as of this encounter Procedures Procedure Name Priority Date/Time Associated Diagnosis Comme nts HC DRAIN/INJ MAJOR Routine 04/28/2017 6:37 PM Tendinopathy of rotator JOINT/BURSA W/O US DIVISION OPERATIONS SPECIALIST cuff, left documented in this encounter Results XR Shoulder 3 View Bilateral (04/27/2017 1:40 PM DIVISION OPERATIONS SPECIALIST) Anatomical Region Laterality Modality Shoulder Bilateral Computed Radiography Specimen (Source) Anatomical Location Collection Method / Collectio n Time Received Time / Laterality Volume Impressions 04/27/2017 4:19 PM DIVISION OPERATIONS SPECIALIST IMPRESSION: 1. Bilateral mild to moderate acromiocla vicular joint degenerative changes. 2. Bilaterally preserved glenohumeral theresa ints. SIOMARA VOGT MD Narrative 04/27/2017 4:19 PM DIVISION OPERATIONS SPECIALIST EXAMINATION: XR SHOULDER 3 VIEWS BILATERAL ??04/27/2017 [...] glenohumeral theresa ints. SIOMARA VOGT MD Christiano BEATTY DIAGNOSTIC IMAGING ORDER EB documented in this encounter Visit Diagnoses Diagnosis Chronic pain of both shoulders - Primary Pain in joint, shoulder region Tendinopathy of rotator cuff, left Tendinopathy of rotator cuff, right Chronic pain of both shoulders Pain in joint, shoulder region documented in this encounter Additional Health Concerns Assessment Noted Time PHQ-9 Depression Total Score: 3 01/28/2017 10:28 AM CS T documented as of this encounter Care Teams Foxer Relationship Specialty Start Date End Date Edison Tam, PCP - General Family Practice 07/23/[address] [place] [address] [address] [place], [place] [address] Sheri Casey MD Pulmonary Disease 07/23/14 [address] [facility] [address] [place], [place] [address] Alphonso Billy MD Cardiology 08/12/[address] [place] [id number] Roland Holt MD Resident Student in [facility] 05/12/15 09/24/18 health [facility] education/training program Amita Ryan MD MD Internal Medicine 12/19/[address] [place] [address] [id number] [place], [place] [id number] Sid Lilly MD Orthopaedic Surgery 02/22/16 MD Alivia [facility] [address] [place], [place] [id number] Neda Boland, NANDINI Nurse Coordinator Neurology 02/23/16 09/01/18 documented as of this encounter
--- OUTSIDE RECORDS SUMMARY | 2021-10-24 11:58 | XMS_ITS | Encounter Summary ---
:1955 Author Organization [facility] Address [address] [place] [id number] Care Team Providers Name Role Phone Edison Tam MD Primary Care Provider Sheri Casey MD Unavailable Alphonso Billy MD Unavailable Roland Holt MD Unavailable Amita Ryan MD Unavailable Sid Lilly MD Unavailable [phone] Neda Boland RN Unavailable Encounter Details Date Type Department Care Team Description 05/06/2017 Therapy Visit [facility], Bilateral shoulder Rehabilitation Services Quentin blanca, PT pain (Primary Dx) [facility] on [facility] [address] [place], [place] [id number] [place], [place] [phone] Social History Tobacco Use Types Packs/Day Years Used Date Former Smoker Cigarettes 1 18 11/11/1972 - 0 06/26/1981 Smokeless Tobacco: Former User Q uit: 09/20/1991 Alcohol Use Standard Drinks/Week Comments No 0 (1 standard drink = 0.6 oz pure alcoho l) Sex Assigned at Date Recorded Not on file documented as of this encounter Progress Notes Keith Villegas, PT - 05/06/2017 3:10 PM CST Physical Therapy Initial Evaluation May 06, 2017 Precautions/Restrictions/MD instructions: PT eval and treat. Subjective: Pt reports bilateral shoulder pain - L>R. Began in R shoulder in February 2017, but then went to the L, now L shoulder is most painful. Attributes pain to overuse (knitting). Sharp pain when sleeping on the side. Reaching out to side causes pain. Date of Onset: 02/14/2017 C/C: Bilateral shoulder pain L>R. Quality of pain is dull, aching and sharp. Pains are described as constant in nature. Pain is worse:as day goes on. Pain is rated 7/10. History of symptoms: Pains began gradually as the result of overuse. Since onset, symptoms are same. Worsened by: reaching, lifting. Alleviated by: Tylenol, Corticosteroid injection and Icy Hot with lidocaine . Pertinent medical/surgical history: . Imaging: x-ray. Current occupational status: retired. Patient's goals are: decrease pain, return to normal activities. Return to MD: PRN. Therapist Impression: Maria E Coley is a 61 year old female with 2 month history of bilateral (L>R) shoulder pain.She presents with signs and symptoms consistent with rotator cuff pathology, likely tendinosis vs potential partial tear involving L supra/subscap with associated ROM and strength deficits. These impairments limit her ability to reach, get dressed, lift, and perform many ADLs. Skilled PT services are necessary in order to reduce impairments and improve independent function. Objective: SHOULDER: Cervical Screen: Clear Shoulder: PROM L PROM R AROM L AROM R MMT L MMT R Flex 150 110 160 3/5 (pain) 4+/5 Abd 120 90 140 3/5 (pain) 4+/5 Full Can Empty Can IR Sacrum L2 3/5 (pain) 4+/5 ER 60 40 70 4-/5 4+/5 Ext/IR Scapulothoraic Rhythm: Significant shrugging during elevation Palpation: Mild tenderness RC tendon insertions on L, mild tenderness LHBT Special tests: L R Impingement Neer's + - Hawkin's-Mark + + Coracoid Impingement Internal impingement Labral Anterior Slide Esmeralda's Crank Instability Apprehension (anterior) Relocation (anterior) Anterior Load & Shift Posterior Load & Shift Posterior instability (with 90 degrees flex) Multi-Directional Instability Sulcus - - Biceps Speed's - - Rotator Cuff Tear Drop Arm + (pain) - Belly Press + (mild) - Lift off +/- - Assessment/Plan: The patient is a 61 year old female with chief complaint of bilateral shoulder pain L>R. The patient has the following significant findings with corresponding treatment plan. Diagnosis 1: Bilateral shoulder pain Pain - hot/cold therapy, US, manual therapy, splint/taping/bracing/orthotics, self management, education and home program Decreased ROM/flexibility - manual therapy, therapeutic exercise, therapeutic activity and home program Decreased joint mobility - manual therapy, therapeutic exercise, therapeutic activity and home program Decreased strength - therapeutic exercise, therapeutic activities and home program Decreased function - therapeutic activities and home program Therapy Evaluation Codes: 1) History comprised of: Personal factors that impact the plan of care: Age. Comorbidity factors that impact the plan of care are: Crohns, Osteoporosis . Medications impacting care: None. 2) Examination of Body Systems comprised of: Body structures and functions that impact the plan of care: Shoulder. Activity limitations that impact the plan of care are: Bathing, Cooking, Dressing, Lifting and Working. Clinical presentation characteristics are: Stable/Uncomplicated. 3) Presentation comprised of: Presentation scored as Low complexity with uncomplicated characteristics.. 4) Decision-Making Low complexity using standardized patient assessment instrument and/or measureable assessment of functional outcome. Cumulative Therapy Evaluation is: Low complexity. Previous and current functional limitations: (See Goal Flow Sheet for this information) Short term and salvage determiner goals: (See Goal Flow Sheet for this information) Communication ability: Patient appears to be able to clearly communicate and understand verbal and written communication and follow directions correctly. Treatment Explanation - The following has been discussed with the patient: RX ordered/plan of care, anticipated outcomes, and possible risks and side effects. This patient would benefit from PT intervention to resume normal activities. Rehab potential is good. Frequency: 1 X week, once daily Duration: for 8 weeks Discharge Plan: Achieve all LTGs, be independent in home treatment program, and reach maximal therapeutic benefit. Please refer to the daily flowsheet for treatment today, total treatment time and time spent performing 1:1 timed codes. 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 documented in this encounter Visit Diagnoses Diagnosis Bilateral shoulder pain - Primary Pain in joint, shoulder region documented in this encounter Additional Health Concerns Assessment Noted Time PHQ-9 Depression Total Score: 3 01/28/2017 10:28 AM CS T documented as of this encounter Care Teams Cash Applications Analyst Relationship Specialty Start Date End Date Edison Tam, PCP - General Family Practice 07/23/[address] [place] [address] [address] [place], [place] [phone] Sheri Casey MD Pulmonary Disease 07/23/[address] [place] [address] [facility] [address] [place], [place] [phone] Alphonso Billy MD Cardiology 08/12/[address] [place] [phone] Roland Holt MD Resident Student in [facility] 05/12/15 09/24/18 health care education/training program Amita Ryan MD MD Internal Medicine 12/19/[address] [place] [address] [id number] [place], [place] [phone] Sid Lilly MD Orthopaedic Surgery 02/22/16 MD [id number] [place], [place] [phone] Neda Boland, RN Nurse Coordinator Neurology 02/23/16 09/01/18 documented as of this encounter
--- OUTSIDE RECORDS SUMMARY | 2021-10-24 11:58 | XMS_ITS | Encounter Summary ---
:1955 Author Organization [place] Address [address] [place] [id number] Care Team Providers Name Role Phone Edison Olivas MD Primary Care Provider Sheri Casey MD Unavailable Alphonso Billy MD Unavailable Roland Holt MD Unavailable Amita Ryan MD Unavailable Sid Lilly MD Unavailable [phone] Neda Boland RN Unavailable Reason for Visit Reason Comments Recheck Medication pt is here for a medication follow up Encounter Details Date Type Department Care Team Description 01/28/2017 Office Visit [facility] Primary Care Edison Olivas ashimoto's thyroiditis (Primary Dx); Clinic MD Marcia Visit for screening mammogram; [address] [place] [address] Screening for diabetic retin opathy; [address]th Floor [place] [address] Screening for diabetic peripheral neurop athy; [place], [place] Other abn ormal glucose ; [phone] Abnormal finding of blood chemistry ; [phone] Crohn's disease of both small and large intestine with complication (H); (Work) Senile osteoporosis; [phone] Screening for m alignant neoplasm of cervix; (Fax) Routine history and physical examination of adult; Restless leg; B12 deficiency Social History Tobacco Use Types Packs/Day Years [...] Sign Reading Time Taken Comments Blood Pressure 113/78 01/28/2017 9:56 AM [facility] Pulse 90 01/28/2017 9:56 AM [facility] Temperature - - Respiratory Rate 16 01/28/2017 9:56 AM [facility]ER Oxygen Saturation - - Inhaled Oxygen Concentration - - Weight 57.6 kg (126 lb 14.4 oz) 01/28/2017 9:56 AM [facility] Height - - Body Mass Index 22.84 02/20/2016 10:44 AM [facility] documented in this encounter Patient Instructions Patient InstructionsSharri Faulkner CMA - 01/28/2017 10:00 AM CST Primary Care Center [facility] Medication Refill Request Information: * Please contact your pharmacy regarding ANY request for medication refills. [facility] Prescription Fax = [phone] * Please allow 3 business days for routine medication refills. * Please allow 5 business days for controlled substance medication refills. [facility] Test Result notification information: *You will be notified with in 7-10 days of your appointment day regarding the results of your test.?? If you are on MyChart you will be notified as soon as the provider has reviewed the results and signed off on them. Please schedule the following appointments: Mammogram: Breast Center ([facility]) [phone] ([facility] 2nd [facility]) Breast Center ([facility]) [phone] ([address]) Dexa Scan: Radiology ([facility] 1st floor) [phone] R AND OPAQUER documented in this encounter Progress Notes Sharri Faulkner CMA - 01/28/2017 10:00 AM CST Rooming Note Health Maintenance Health Maintenance Due Topic Date Due ??? KELVIN QUESTIONNAIRE 1 YEAR 1973 ??? PAP Q3 YR 10/31/2014 ??? MAMMO Q1 YR 12/16/2015 ??? FOOT EXAM Q1 YEAR 05/11/2016 ??? LIPID MONITORING Q1 YEAR 05/11/2016 ??? MICROALBUMIN Q1 05/11/2016 ??? PHQ-9 Q1YR 05/11/2016 ??? EYE EXAM Q1 05/15/2016 ??? A1C Q6 MO 06/18/2016 ??? COLONOSCOPY Q1 YR 09/14/2016 ??? CREATININE Q1 YEAR 12/18/2016 The following HM topics were discussed, but NOT ordered: - Colonoscopy The orders were not placed because: patient declined The following immunizations were discussed, but NOT ordered: - Influenza (flu shot) The orders were not placed because: patient declined Sharri Faulkner CMA at 9:57 AM on 01/28/2017 R [facility] OPAQUER Edison Olivas MD - 01/28/2017 10:00 AM CST SUBJECTIVE: Maria E Coley is a 61-year-old female who has a history of Crohn's disease with fistulas and feels this is resolved. She is off prednisone. She feels well. She has been to a corporate investigator and she weaned off prednisone herself. Blood glucose has been better. She is requesting increased number of glucose test strips as she is n=monitoring her glucose with lifestyle modification food cahnges On a very healthy diet and she feels changes in her body for the better after stopping prednisone. She does not want to do a colonoscopy. No signs of infection and reports mild fatigue. Right knee pain has improved and has pain if she walks too long. Right shoulder pain stable with physical therapy. Dancing to [employer]. She notes that her thrush has resolved. She would like me to fill her B12 shots and requip she takes for restless legs. Health care maintenance: Discussed need for mammogram breast exam and PAP Patient Active Problem List Diagnosis ??? Yossi's [...] female ??? Pneumaturia ??? Carbon monoxide exposure Past Medical History: Diagnosis Date ??? Anemia Result of CO poisoning and fpc prednisone use? Anxiety ??? Arthritis ??? Bone [...] overy ??? Yossi's disease ??? Head injury 2012 tumbled down a full flight of stairs [...] last week ??? Vision disorder dry eyes Family History Problem Relation Age of Onset [...] Sister , ??? Muscular Disorder Sister MS Past Surgical History: Procedure Laterality Date ??? APPENDECTOMY OPEN 1985 ??? BACK SURGERY 2009 L4-L5 laminectomy ??? BACK SURGERY 2010 L5 [...] Charan Salazar MD; Location: [facility] ??? 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 left ovary removal was removed during a resection ??? RELEASE CARPAL TUNNEL right ??? REPAIR NERVE MICROSCOPIC UPPER EXTREMITY 04/16/2013 Procedure: REPAIR NERVE MICROSCOPIC UPPER EXTREMITY; Left Index Finger Digital Nerve Repair with Nuerogen jeremias; Surgeon: Marisol Hathaway MD; Location: [facility] OR ??? SIGMOIDECTOMY left ovary removal ??? SMALL BOWEL RESECTION 1985 colon and distal ilium Problem list, PMH, Surgical HX, FH, SH, allergies, medications,immunizations reviewed and updated in Epic.10 point ROS negative other than noted in HPI and ROS. OBJECTIVE: BP 113/78 Pulse 90 Resp 16 Wt 57.6 kg (126 lb 14.4 oz) ? No BMI 22.84 kg/m2 GENERAL: Objective examination reveals a female who is in no acute distress. She is very pleasant. HEENT: Bilateral tympanic membranes are normal. Posterior pharynx is nonerythematous with moist mucous membranes Tongue without thrush. Nasal mucosa is without swelling or lesion. NECK: Supple, no lymphadenopathy, no tenderness.thyroid normal LUNGS: Clear with good inspiration and expiration. CARDIAC: S1, S2, with regular rate and rhythm. Rate is around 90. ABDOMEN: Abdomen well-healed scars mild bloating but no tenderness no apparent hepatosplenomegaly MUSCULOSKELETAL: She has no significant swelling of her knees. NEURO: Intact Inspection and palpation of breasts: No masses, lumps, tenderness, normal symmetry, no nipple discharge External genitalia: Normal general appearance, hair distribution, no lesions Urethral meatus: Normal location no lesions, or prolapse. Urethra:No tenderness or scarring Bladder: no fullness, masses, or tenderness Vagina :Normal general appearance for age, atrophy, mild yellow mucous physiologic discharge no odor, no lesions Cervix: general appearance nulliparous, no lesions, or discharge Uterus :Normal size, contour, position, normal mobility, no tenderness, appropriate support Adnexa/parametria No masses, tenderness, organomegaly, or nodularity Anus and perineum: normal to inspection, no rash ASSESSMENT AND PLAN: Maria E Coley is a 61-year-old female who presents today for general health exam. She has a history of Crohn's disease and took herself off of steroids she is feeling well at this time.We completed Pap and pelvic examination. She has a history of osteoporosis with previous long-term use of steroids therefore need bone density scan. She declined colonoscopy. Maria E was seen today for recheck medication. 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; Future Visit for screening mammogram - MA SCREENING DIGITAL BILAT - Future (s+30); Future Screening for diabetic retinopathy - Cancel: OPHTHALMOLOGY ADULT REFERRAL Screening for diabetic peripheral neuropathy - FOOT EXAM - NO CHARGE Other abnormal glucose - HEMOGLOBIN A1C -(Today); Future - Lipid panel reflex to direct LDL Fasting; Future - Albumin Random Urine Quantitative with Creat Ratio; Future - blood glucose monitoring (NO BRAND SPECIFIED) test strip; Use to test blood sugars 2 to three times daily or as directed Abnormal finding of blood chemistry - Lipid panel reflex to direct LDL Fasting; Future - Comprehensive metabolic panel; Future Crohn's disease of both small and large intestine with complication (H) Senile osteoporosis - Dexa hip/pelvis/spine*; Future Screening for malignant neoplasm of cervix - Pap imaged thin layer screen with HPV - recommended age 30 - 65 years (select HPV order below) - HPV High Risk Types DNA Cervical Routine history and physical examination of adult Restless leg - rOPINIRole (REQUIP) 1 MG tablet; Take 1 tablet (1 mg) by mouth At Bedtime May take 1/2 tab additional prn once daily. B12 deficiency - cyanocobalamin (VITAMIN B12) 1000 MCG/ML injection; Inject 1 mL (1,000 mcg) into the muscle every 30 days - order for DME; Injection Supplies for Vitamin B12: 3cc syringes w/ 29 gauge needles 1/2 inch length Other orders - Cancel: CREATININE (Today); Future Annual visit All questions were addressed. She voiced understanding and agreement with the above. Edison Olivas MD R AND OPAQUER documented in this encounter Nursing Notes Sharri Faulkner CMA - 01/28/2017 10:00 AM CST Chief Complaint Patient presents with ??? Recheck Medication pt is here for a medication follow up Sharri Faulkner CMA at 9:56 AM on 01/28/2017 R AND OPAQUER documented in this encounter Plan of Treatment Pending Results Name Type Priority Associated Diagnoses Date/Ti me Pap imaged thin layer Lab Routine Screening for jodi jennings 01/28/2017 10:40 AM screen with HPV - neoplasm of cervix [facility] recommended age 30 - 65 years (select HPV order below) documented as of this encounter Procedures Procedure Name Priority Date/Time Associated Diagnosis Comme nts HPV HIGH RISK TYPES Routine 01/28/2017 10:55 AM Screening for Results for this DNA CERVICAL [facility] malignant neoplasm procedure are in of cervix the results section. PAP IMAGED THIN Routine 01/28/2017 10:40 AM Screening for LAYER SCREEN [facility]PA[facility] malignant neoplasm of cervix A PAP THIN LAYER Routine 01/28/2017 10:40 AM Resu lts for this SCREEN [facility] procedure are i n the results section. documented in this encounter Results Dexa hip/pelvis/spine* (02/08/2017 3:11 PM [facility]) Anatomical Region Laterality Modality Dexa Bone Mineral Density Specimen (Source) Anatomical Location Collection Method / Collectio n Time Received Time / Laterality Volume Narrative 02/11/2017 6:59 PM [facility] [address] [place] [address] Phone: ?? Fax: FINAL REPORT Patient name: ?? MARIA E COLEY ([id number] ) Patient demographics: [age] year old Whit e Female of 62.0 in. height and 130.0 lbs. weight Ordering provider: EDISON OLIVAS History: ??HX OF OSTEOPOROSIS, POSTMENOP AUSAL status, THYROID CONDITION, reformed tobacco habit, family hx of ost eoporosis, OVARIES REMOVED (1 OR 2), CROHN'S Current treatments: Calcium, Vitamin D Scan: ??DXA exam ([id number] ): CV IngenuityigHachiko Exam date: ??02/08/2017 Comparison: ?? 02/08/2017 05/16/2015 [...] for the opportunity to be of s piedadvice to you and your patient. Principal result dopeman: Luci Rudd MD, CCD Heating And Air Conditioning Mechaniccustomer service coordinator Division of Endocrinology References: 1. ISCD position statements: ??www.iscd. org ??(includes the report of the 2015 ??Position Development Conference) 2. LSC = least significant changes at th e [facility] Imaging Center AP spine = ??0.032 g/cm2 ??(09.03.2006) Left hip = 0.029 g/cm2 ??(08.23.2006) Right hip = 0.018 g/cm2 ??(08.23.2006) Left mid radius = 0.043 g/cm2 ??(6. 007) Lateral spine region = pending Total [...] 08/01/2016 Edison Olivas MD IMG DEXA ORDERABLES Comprehensive metabolic panel (01/28/2017 11:13 AM [facility]) athologist Signature Sodium 140 133 - 144 01/28/2017 [facility] mmol/L 12:02 PM [facility] Potassium 3.8 3.4 - 5.3 01/28/2017 [facility] mmol/L 12:02 PM [facility] Chloride 108 94 - 109 01/28/2017 [facility] mmol/L 12:02 PM [facility] Carbon Dioxide 23 20 - 32 01/28/2017 [facility] mmol/L 12:02 PM [facility] Anion Gap 9 3 - 14 01/28/2017 [facility] mmol/L 12:02 PM [facility] Glucose 82 70 - 99 01/28/2017 [facility] mg/dL 12:02 PM [facility] Urea Nitrogen 15 7 - 30 01/28/2017 [facility] mg/dL 12:02 PM [facility] Creatinine 0.82 0.52 - 01/28/2017 [facility] 1.04 mg/dL 12:02 PM [facility] GFR Estimate 71 >60 01/28/2017 [facility] mL/min/1.7 12:[address] Comment: Non GFR Calc GFR Estimate If 85 >60 mL/min/1.7m2 01/28/2017 12:02 PM [facility] Black [facility] Comment: GFR Calc Calcium 8.6 8.5 - 10.1 mg/dL 01/28/2017 12:02 PM [facility] Bilirubin Total 0.3 0.2 - 1.3 mg/dL 01/28/2017 12:02 P M [facility] Albumin 4.0 3.4 - 5.0 g/dL 01/28/2017 12:02 PM [facility] Protein Total 7.0 6.8 - 8.8 g/dL 01/28/2017 12:02 PM U [facility] Alkaline Phosphatase 69 40 - 150 U/L 01/28/2017 12:02 PM [facility] ALT 39 0 - 50 U/L 01/28/2017 12:02 PM [facility] AST 23 0 - 45 U/L 01/28/2017 12:02 PM [facility] Specimen Anatomical Collection Method Collection Time Receive d Time (Source) Location / / Volume Laterality Blood specimen 01/28/2017 11:13 7 (specimen) AM [facility] 11:15 AM [facility] Edison Olivas MD LAB - BLOOD ORDERABLES Performing Organization Address City/[facility]/ZIP Code Phon e Number [address] TSH with free T4 reflex (01/28/2017 11:13 AM [facility]) athologist Signature TSH 2.12 0.40 - 4.00 01/28/2017 [facility] mU/L 12:02 PM [facility] Specimen Anatomical Collection Method Collection Time Receive d Time (Source) Location / / Volume Laterality Blood specimen 01/28/2017 11:13 7 (specimen) AM [facility] 11:15 AM [facility] Edison Olivas MD LAB - BLOOD ORDERABLES Performing Organization Address City/State/ZIP Code Phon e Number [place] [phone] [facility] (ABNORMAL) Lipid panel reflex to direct LDL Fasting (01/28/2017 11:13 AM [facility]) athologist Signature Cholesterol 191 <200 mg/dL 01/28/2017 [facility] 12:02 PM [facility] Triglycerides 150 (H) <150 mg/dL 01/28/2017 [facility] 12:02 PM [facility] Comment: Borderline high: ??150-199 mg/dl High: ? 200-499 mg/dl Very high: ? >499 mg/dl HDL Cholesterol 92 >49 mg/dL 01/28/2017 12:02 PM [facility] LDL Cholesterol 69 <100 mg/dL 01/28/2017 12:02 PM [facility] Calculated [facility] Comment: Desirable: <100 mg/dl Non HDL Cholesterol 99 <130 mg/dL 01/28/2017 12:02 PM [facility] Specimen Anatomical Collection Method Collection Time Receive d Time (Source) Location / / Volume Laterality Blood specimen 01/28/2017 11:13 7 (specimen) AM [facility] 11:15 AM [facility] Edison Olivas MD LAB - BLOOD ORDERABLES Performing Organization Address City/[facility]/ZIP Code Phon e Number [place] [phone] [facility] HEMOGLOBIN A1C -(Today) (01/28/2017 11:13 AM [facility]) athologist Signature Hemoglobin A1C 5.3 4.3 - 6.0 01/28/2017 [facility] % 11:56 AM [facility] Specimen Anatomical Collection Method Collection Time Receive d Time (Source) Location / / Volume Laterality Blood specimen 01/28/2017 11:13 7 (specimen) AM [facility] 11:15 AM [facility] Edison Olivas MD LAB - BLOOD ORDERABLES Performing Organization Address City/[facility]/ZIP Code Phon e Number [place] [phone] [facility] HPV High Risk Types DNA Cervical (01/28/2017 10:55 AM [facility]) [facility] Method Time Signature HPV 16 DNA Negative NEG^Negat 02/04/2017 [facility] rena 2:46 PM [facility] HPV 18 DNA Negative NEG^Negat 02/04/2017 [facility] rena 2:46 PM [facility] Other HR HPV Negative NEG^Negat 02/04/2017 [facility] rena 2:46 PM [facility] Final This 02/04/2017 [facility] patient's 2:46 PM [facility] sample is [facility] negative for CAMPUS HPV DNA. Comment: (Note) METHODOLOGY: ??The Bobby mark 4800 syst em uses automated extraction, simultaneous amplification of HPV (L1 re gion) and beta-globin, ?? followed by ??real time detection of flu orescent labeled HPV and beta globin using specific oligonucleotide pr obes . The test specifically identifies types HPV 16 DNA and HPV 18 D NA while concurrently detecting the rest of the high risk type s (31, 33, 35, 39, 45, 51, 52, 56, 58, 59, 66 or 68). COMMENTS: ??This test is not intended fo r use as a screening device for women under age 30 with normal cervi jenifer cytology. ??Results should be correlated with cytologic and histolo gic findings. Close clinical followup is recommended. This test was developed and its performa nce characteristics determined by the [facility], [facility]. It has not been cleared or approved by the FDA. The laboratory is regulated under C MYRIAM as qualified to perform high-complexity testing. This test is us ed for clinical purposes. It should not be regarded as investigationa l or for research. Specimen Description Cervical Cells 01/30/2017 9:4 7 AM [facility] Comment: [id number] Specimen Anatomical Collection Method Collection Time Receive d Time (Source) Location / / Volume Laterality Cervical Cells 01/28/2017 10:55 7 AM [facility] 11:25 AM [facility] Edison Olivas MD LAB - BLOOD ORDERABLES Performing Organization Address City/State/ZIP Code Phon e Number [facility] [address] [place] [address] [facility] A pap thin layer screen (01/28/2017 10:40 AM [facility]) Component Value Ref Test Analysis Performed At [facility] Range Method Time Signature PAP NIL COPATH Copath Report COPATH Patient Name: MARIA E COLEY MR#: [id number] Specimen #: [id number] Collected: 01/28/2017 Received: 01/28/2017 Reported: 01/29/2017 09:27 Ordering Phy(s): EDISON OLIVAS For improved result formatting, select 'View Enhanced Report Format' under Linked Documents section. SPECIMEN/STAIN PROCESS: Pap thin layer prep screening (Surepath) ? Pap-Cyto x 1, HPV ordered x 1 SOURCE: Cervical, endocervical ---- Pap thin layer prep screening (Surepath) SPECIMEN ADEQUACY: Satisfactory for evaluation. ??Specimen was unable to be gil ged on the [email or web address] Soil Scientist. -Transitional zone component could not be determined due to atrophy. CYTOLOGIC INTERPRETATION: Negative for intraepithelial lesion or malignancy ? Other Non-Neoplastic Findings: -Inflammation present. Electronically signed out by: MARICARMEN Sandoval (ASCP) Processed and screened at [facility] CLINICAL HISTORY: Post Menopausal, Previous normal pap Date of Last Pap: 11/01/2011, Papanicolaou Test Limitations: ??Cervical cytology is a scre ening test with limited sensitivity; regular screening is critical for cancer prevention; Pap tests are primarily effective for the diagnosis/prevention of squamous cell carcinoma, not adenoca rcinomas or other cancers. TESTING LAB LOCATION: [address] ??[id number] COLLECTION SITE: Client: ??[facility] Location: [facility] (B) Specimen Anatomical Collection Method Collection Time Receive d Time (Source) Location / / Volume Laterality 01/28/2017 10:40 01/28/2017 AM [facility] 12:45 PM [facility] Edison Olivas MD LAB - OPTIME CLINICAL SPECIM EN Performing Organization Address City/State/ZIP Code Phon e Number [place] (ABNORMAL) Albumin Random Urine Quantitative with Creat Ratio (01/28/2017 10:20 AM [facility]) [facility] gist Method Time Signature Creatinine 114 mg/dL 01/28/2017 [place] Urine 11:26 AM [facility] Albumin Urine 32 mg/L 01/28/2017 [place] mg/L 11:[address] [facility] Albumin Urine 28.07 (H) 0 - 25 01/28/2017 [place] mg/g Cr mg/g Cr 11:[address] [facility] Specimen Anatomical Collection Method Collection Time Receive d Time (Source) Location / / Volume Laterality Urine specimen 01/28/2017 10:20 7 (specimen) AM [facility] 10:44 AM [facility] Edison Olivas MD LAB - URINE ORDERABLES Performing Organization Address City/State/ZIP Code Phon e Number M [facility] [address] [address] [facility] [address] [address], [facility] [phone] documented in this encounter Visit Diagnoses Diagnosis Yossi's thyroiditis - Primary Chronic lymphocytic thyroiditis Visit for screening mammogram Other screening mammogram Screening for diabetic retinopathy Screening for other eye conditions Screening for diabetic peripheral neurop athy Special screening for other neurological conditions Other abnormal glucose Other abnormal glucose Abnormal finding of blood chemistry Other abnormal blood chemistry Crohn's disease of both small and large intestine with complication (H) 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 Senile osteoporosis Screening for malignant neoplasm of cerv ix Screening for malignant neoplasm of the cervix Routine history and physical examination of adult Routine general medical examination at a health care facility Restless leg Restless legs syndrome (RLS) B12 deficiency Other B-complex deficiencies Senile osteoporosis documented in this encounter Additional Health Concerns Assessment Noted Time PHQ-9 Depression Total Score: 3 01/28/2017 10:28 AM CS T documented as of this encounter Care Teams Hospital Clinic Assistant Relationship Specialty Start Date End Date Edison Olivas, PCP - General Family Practice 07/23/14 909 [facility] [address] [place] [address] Sheri Casey MD Pulmonary Disease 07/23/14 420 [facility] [address] [place], [place] [id number] Alphonso Billy MD Cardiology 08/12/14 8 [address] [place], [place] [address] Roland Holt MD Resident Student in [facility] 05/12/15 09/24/18 [facility] education/training program Amita Ryan MD MD Internal Medicine 12/19/15 909 [facility] [id number] [place], [place] [id number] Sid Lilly MD Orthopaedic Surgery 02/22/16 MD Alivia [facility] [address] [facility] [address] [place], [place] [id number] Neda Boland, RN Nurse Coordinator Neurology 02/23/16 09/01/18 documented as of this encounter
--- OUTSIDE RECORDS SUMMARY | 2021-10-24 11:58 | XMS_ITS | Encounter Summary ---
:1955 Author Organization [facility] Address [address] [place] [address] Care Team Providers Name Role Phone Edison Tam MD Primary Care Provider Sheri Casey MD Unavailable Alphonso Billy MD Unavailable Roland Holt MD Unavailable Amita Ryan MD Unavailable Sid Lilly MD Unavailable [phone] Neda Boland RN Unavailable Encounter Details Date Type Department Care Team Description 02/08/2017 Radiant Appointment [facility] Breast Edison Tam sit for screening Center Imaging Teresa Kennedy MD mammogram [address] [place] [address], 2nd Floor [facility] [address] [place] [address] [phone] Social History Tobacco Use Types Packs/Day Years [...] Name Priority Date/Time Associated Diagnosis Comme nts MA SCREENING Routine 02/08/2017 2:25 PM Visit for screening Re sults for this BILATERAL W/ MARIANO ACID LEVELER mammogram procedure are in the results section. documented in this encounter Results MA Screen Bilateral w/Mariano (02/08/2017 2:25 PM ACID LEVELER) Anatomical Region Laterality Modality Breast Bilateral Mammography Specimen (Source) Anatomical Location Collection Method / Collectio n Time Received Time / Laterality Volume Impressions 02/11/2017 2:12 PM ACID LEVELER IMPRESSION: BI-RADS CATEGORY: 1 - ??NEGATIVE. RECOMMENDED FOLLOW-UP: Annual Mammograph y Results to be sent to patient. I have personally reviewed the examinati on and initial interpretation and I agree with the findings. CHRISTOPHER PEREZ MD Narrative 02/11/2017 2:12 PM ACID LEVELER SCREENING MAMMOGRAM, BILATERAL, DIGITAL, with CAD and TOMOSYNTHESIS HISTORY: Asymptomatic, routine screening . COMPARISON: Screening mammogram 2, 03/15/2010. Diagnostic mammogram 12/15/2014. TECHNIQUE: Routine screening mammogram w ith CAD and tomosynthesis. BREAST DENSITY: Heterogeneously dense. FINDINGS: No significant change. Procedure Note Christopher Perez MD - 2016 SCREENING MAMMOGRAM, BILATERAL, DIGITAL, with CAD and TOMOSYNTHESIS HISTORY: Asymptomatic, routine screening . COMPARISON: Screening mammogram 2, 03/15/2010. Diagnostic mammogram 12/15/2014. TECHNIQUE: Routine screening mammogram w ith CAD and tomosynthesis. BREAST DENSITY: Heterogeneously dense. FINDINGS: No significant change. IMPRESSION: BI-RADS CATEGORY: 1 - NEGATI VE. RECOMMENDED FOLLOW-UP: Annual Mammograph y Results to be sent to patient. I have personally reviewed the examinati on and initial interpretation and I agree with the findings. CHRISTOPHER PEREZ MD Edison Tam MD IMG MAMMOGRAPHY ORDERABLES documented in this encounter Visit Diagnoses Diagnosis Visit for screening mammogram Other screening mammogram documented in this encounter Additional Health Concerns Assessment Noted Time PHQ-9 Depression Total Score: 3 01/28/2017 10:28 AM CS T documented as of this encounter Care Teams Lube Attendant Relationship Specialty Start Date End Date Edison Tam, PCP - General Family Practice 07/23/14 MD [address] [facility] [address] [place], [place] [id number] Sheri Casey MD Pulmonary Disease 07/23/14 420 [facility] [address] [place] [address] Alphonso Billy MD Cardiology 08/12/14 8 [address] [place], [place] [id number] Roland Holt MD Resident Student in [facility] 05/12/15 09/24/18 health care education/training program Amita Ryan MD MD Internal Medicine 12/19/15 [address] [facility] [id number] [place], [place] [id number] Sid Lilly MD Orthopaedic Surgery 02/22/16 MD Alivia [facility] [address] [place], [place] [address] Neda Boland, NANDINI Nurse Coordinator Neurology 02/23/16 09/01/18 documented as of this encounter
--- OUTSIDE RECORDS SUMMARY | 2021-10-24 11:58 | XMS_ITS | Encounter Summary ---
:1955 Author Organization [facility] Address [address] [place] [address] Care Team Providers Name Role Phone Edison Tam MD Primary Care Provider Sheri Casey MD Unavailable Alphonso Billy MD Unavailable Roland Holt MD Unavailable Amita Ryan MD Unavailable Sid Lilly MD Unavailable Neda Boland RN Unavailable Reason for Visit Reason Onset Date Comments Refill Request 01/10/2017 ropinirole Encounter Details Date Type Department Care Team Description 01/10/2017 Refill [facility] Primary Care Edison Tam efill Request [facility] MD Marcia (ropinirole ) [address] [place] [address] Floor 4 [place] [phone] (Wo rk) Social History Tobacco Use Types Packs/Day Years Used Date Former Smoker Cigarettes 1 18 11/11/1972 - 0 06/26/1981 Smokeless Tobacco: Former User Q uit: 09/20/1991 Alcohol Use Standard Drinks/Week Comments No 0 (1 standard drink = 0.6 oz pure alcoho l) Sex Assigned at Date Recorded Not on file documented as of this encounter Miscellaneous Notes Addendum Note - Ros Neff RN - 01/18/2017 1:02 PM PHLEBOTOMIST MEDICAL LAB ASSISTANT Addended by: STARR NEFF on: 01/18/2017 01:02 PM Modules accepted: Orders BOTOMIST MEDICAL LAB ASSISTANT Telephone Encounter - Ros Neff RN - 01/18/2017 12:54 PM CST Refill did not transmit to pharmacy - will resend at this time. Ros Neff RN BOTOMIST MEDICAL LAB ASSISTANT Telephone Encounter - Rosie James RN - 01/13/2017 4:49 PM CST ropinirole Last Written Prescription Date: 10/27/16 Last Fill Quantity: 90, # refills: 0 Last Office Visit : 12/19/15 Future Office visit: NONE OVER DUE APPT. LETTER + 30 DAY RF BOTOMIST MEDICAL LAB ASSISTANT documented in this encounter Plan of Treatment Not on filedocumented as of this encounter Visit Diagnoses Diagnosis Restless leg Restless legs syndrome (RLS) documented in this encounter Additional Health Concerns Assessment Noted Time PHQ-9 Depression Total Score: 14 05/13/2015 7:50 AM CS T documented as of this encounter Care Teams Numerical Control Tool Programmer Relationship Specialty Start Date End Date Edison Tam, PCP - General Family Practice 07/23/[address] [place] [address] 4 [place] [address] Sheri Casey MD Pulmonary Disease 07/23/14 420 [facility] [address] [place], [place] [phone] Alphonso Billy MD Cardiology 08/12/[address] [place] [id number] oRland Holt MD Resident Student in [facility] 05/12/15 09/24/18 [facility] education/training program Amita Ryan MD MD Internal Medicine 12/19/15 [address] [facility] [id number] [place], [place] [id number] Sid Lilly MD Orthopaedic Surgery 02/22/16 MD Alivia [facility] [address] [address] Neda Boland, RN Nurse Coordinator Neurology 02/23/16 09/01/18 documented as of this encounter
--- OUTSIDE RECORDS SUMMARY | 2021-10-24 11:58 | XMS_ITS | Encounter Summary ---
:1955 Author Organization [facility] Address [address] [place] [address] Care Team Providers Name Role Phone Edison Tam MD Primary Care Provider Sheri Casey MD Unavailable Alphonso Billy MD Unavailable Roland Holt MD Unavailable Amita Ryan MD Unavailable Sid Lilly MD Unavailable [phone] Neda Boland RN Unavailable Reason for Visit Reason Comments RECHECK Age related Osteoporosis Consultation - Closed Specialty Diagnoses / Procedures Referred By Contact Refer red To Contact Diagnoses Senile osteoporosis Edison Tam MD [address] [facility] [address] [place], [place] [address] Referral ID Status Reason Start Date Expiration Date Visits Requ ested Visits Authorized [id number] Closed 05/07/2017 05/07/2018 1 1 Encounter Details Date Type Department Care Team Description 06/19/2017 Office Visit Laisha Wong Hypocalcemi silke (Primary Dx); Endocrinology MD Silke Senile osteoporosis; 9 [facility] [address] History of corticosteroid th erapy; [address] [facility] Loss of weight; [place], [place], [place] Hypothyro idism, unspecified type [id number] [phone] Social History Tobacco Use Types Packs/Day Years [...] Sign Reading Time Taken Comments Blood Pressure 101/67 06/19/2017 4:11 PM CDT Pulse 96 06/19/2017 4:11 PM CDT Temperature - - Respiratory Rate - - Oxygen Saturation - - Inhaled Oxygen Concentration - - Weight 52.2 kg (115 lb 1.6 oz) 06/19/2017 4:11 PM CDT Height 155.6 cm (5' 1.26) 06/19/2017 4:11 PM CDT Body Mass Index 21.56 06/19/2017 4:11 PM CDT documented in this encounter Patient Instructions Patient InstructionsLaisha Moraes MD - 06/19/2017 4:30 PM CDT CALCIUM Recommendation 1500 mg/day in divided dose of no more than 500 mg/dose. This includes what is in your food and also what is in any supplements you are taking. Dietary sources of calcium: These also contain vitamin D Milk / buttermilk 8 oz 300 mg Dry milk powder 5 Tbsp 300 mg Yogurt 1 cup 400 mg Ice cream 1/2 cup 100 mg Hard cheese 1.5 oz 300 mg Cottage cheese 1/2 cup 65 mg Spinach, cooked 1 cup 240 mg Tofu, soft regular 4 oz 120 to 390 mg Sardines 3 oz 370 mg Mackerel canned 3 oz 250 mg Canned salmon with bones 3 oz 170-210 mg Calcium fortified cereals are available SILK soy and almond milk products are calcium fortified [place] juice Fortified with Calcium 8 oz 300 mg Low fat dairy sources are recommended Recommended exercise goals: 30 minutes of moderate exercise on most days of the week . Weight bearing exercise (ie, walking, jogging, hiking, dancing) Strength training 2 or more times/week in addition to other weight -being exercise. Strength training -- uses weight or resistance beyond that seen in everyday activities -(pilates, weight training with free weights, weight machines or resistance bands) OSTEOPOROSIS of the spine: avoid exercise machines that incorporate spinal flexion, trunk rotation, or forward bending Specifically avoid abdominal exercisers, stationary bikes with moving handles, cross-country ski machines, rowing machines, and bicep curl machines Spinal fractures: AVOID activities that place significant force on the spine such as horse back riding, tennis, golf or bowling documented in this encounter Progress Notes Laisha Moraes MD - 06/19/2017 4:30 PM CDT Endocrinology Consult Note Attending ASSESSMENT/PLAN: 1. Osteoporosis . Risks include history of steroids, low BMI, post menopausal. Last Reclast was 2013. Thoughts as per # 3 Labs today 2. History of Chronic steroid use since teens/ SI joint injections intermittently. In 2013 when I last saw her she was on 9 mg/day prednisone. Today she is off prednisone since December. AM cortisol wasnot definitely normal. Repeat AM cortisol, ACTH Addendum: AM cortisol 9.8 leaves open the possibility of adrenal insufficiency, though the ACTH is normal, and I think against this. Definitive testing with 1 mcg cortrosyn stim test would be indicatedgiven the questions raised by the weight loss. Likewise, the high TSH of 4.75 could be due to cortisol deficiency. This needs to be ruled out before raising the LT4 dose. 3 . Hypocalcemia noted 04/22/17. History of hypovitaminosis D. Hypocalcemia could be prohibitivie forsome of our stronger osteoporosis anti resorptive drugs (like Reclast, Denosumab). Labs today to address this first before we can decide on best treatment for # 1. Hypothyroidism- TSH was normal 04/28. Unclear if this was on or off LT4, it might have been off LT4.Labs today again . Weight loss - her weight is down 20 # since 01/24, down 11 # since 01/25. She attributes this to restricted diet. It could also be due to untreated secondary adrenal insufficiency. Plan as per # 2 Laisha Moraes MD Cc: 61 year old woman seen in consultatoin at the request of Dr Edison Tam for osteoporosis. I have reviewed Care Everywhere including [facility] lab reports, imaging reports and provider notes as indicated. Cc/ HISTORY OF PRESENT ILLNESS Maria E presents as a new referral for osteoporosis. However, I have seen her in the past (last was 2013) for hypothyroidism, osteoporosis, hypovitaminosis D, history of chronic steroid use She has a history of chronic steroid use in the context of history of Crohn's disease for which she had been on steroids since her teens. When I last saw her in 2013 she was on prednisone dose 9 mg/dayonce/day and she was having intermittent SI joint injection . Today she says she tapered quickly offthe prednisone, after taking it for 47 years, in December 2016. She went off all of her medications at the time (including the thyroid). DXA 02/08/17 shows lowest T-score -2.9 at the right femoral neck. There was a significant decrease inthe BMD at the L spine compared with 2015 and 2011. Thre is bone gain at the right hip compared [id number]. She has had 2 fractures, one related to fall down steps and one related to fall while roller skating. Her height is down 1 inch from maximum baseline. She took Actonel in the past, until it was stopped after an esophageal ulcer. She got IV Reclast (delivered in [place]), stopped around 2011 when her dentist advised cessation due to concerns about the jaw. She got reclast 5 mg IV here on 01/20/14. She has not had treatment for the bone, that we know of, since then. She is currently on LT4 25 mcg/day- she has been on this dose x months. She doesn't think she was on it 04/22??? Calcium dose is uncertain - ? 1200 mg as a single dose, with vitamin D Gabapentin 200 mg High octane brain oil Fe is ? Dose once/day Mg ? Dose We have the following labs 04/22/11 : vitamin D 21 12/03/12: PTH 36, calcium 8.7 01/28/17: TSH 2.12, Ca 8.6, albumin 4, creatinine 0.82, alk phos 69 04/22/17: TSH 3.27, Ca 8.2, creatinine 0.84 04/27/17 (1119 AM): cortisol 8.8 images on PACs 12/03/[address] - incomplete views of the thyroid - thyroid looks normal on views seen (inferior part of the thyroid) 12/03/11 xray, L , T and C spine - no compression fracture 04/02/13 CT L spine: no compression fracture REVIEW OF SYSTEMS Weight loss attributed to restricted diet, eating less, ? Ketosis; she eats the healthy fats, feeds the brain Feeling pretty good in the last days but for a while she was really struggling. 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 Late Mar, 2017 got to clean air. She carries a CO detector for this. ? Was having the flu and didn't eat for a while May, No bone fractures Joint pain- wrists, elbow Maximum height 5'3 Back pain -low back Past Medical History Results for MARIA E COLEY ( ) as of 06/22/2017 13:09 Ref. Range 06/20/2017 08:15 06/20/2017 08:16 Calcium Latest Ref Range: 8.5 - 10.1 mg/dL 8.5 Phosphorus Latest Ref Range: 2.5 - 4.5 mg/dL 4.3 Adrenal Corticotropin Latest Ref Range: <47 pg/mL 30 Cortisol Serum Latest Ref Range: 4 - 22 ug/dL 9.8 T4 Free Latest Ref Range: 0.76 - 1.46 ng/dL 0.98 TSH Latest Ref Range: 0.40 - 4.00 mU/L 4.75 (H) Vitamin D Deficiency screening Latest Ref Range: 20 - 75 ug/L 27 Parathyroid Hormone Intact Latest Ref Range: 18 - 80 pg/mL 36 Medications Current Outpatient Prescriptions Medication Sig Dispense Refill ??? ALPRAZolam (XANAX XR) 0.5 MG 24 hr tablet TK 1 T PO QD PRN 2 ??? Venlafaxine HCl (EFFEXOR PO) ??? levothyroxine (SYNTHROID/LEVOTHROID) 50 MCG tablet Take 0.5 tablets (25 mcg) by mouth daily ??? MAGNESIUM OXIDE PO Take 250 mg by mouth ??? POTASSIUM CITRATE PO Take 1,000 mEq by mouth ??? Ascorbic Acid (VITAMIN C PO) Take 1,000 mg by mouth ??? UNABLE TO FIND MEDICATION NAME: NRF2 Booster. 2 capsules daily ??? zinc sulfate (ZINCATE) 220 (50 ZN) MG capsule Take 220 mg by mouth daily ??? UNABLE TO FIND MEDICATION NAME: ALA 750 mg Daily ??? UNABLE TO FIND MEDICATION NAME: S Acetyl Glutathiane 1 capsule Daily ??? COENZYME Q-10 PO ??? UNABLE TO FIND MEDICATION NAME: Prevagan 1 Capsule Daily ??? Ferrous Sulfate (IRON SUPPLEMENT PO) ??? gabapentin (NEURONTIN) 100 MG capsule Take 100 mg at 7 PM. Increase dose to 200 mg in 1 week [id number] mg in 2 weeks. 90 capsule 3 ??? rOPINIRole (REQUIP) 0.25 MG tablet Take 1 tablet (0.25 mg) by mouth daily 90 tablet 0 ??? blood glucose monitoring (NO BRAND SPECIFIED) test strip Use to test blood sugars 2 to three times daily or as directed 100 each 11 ??? cyanocobalamin (VITAMIN B12) 1000 MCG/ML [...] Take 1 tablet by mouth daily ??? acetaminophen (TYLENOL) 500 MG tablet Take 500-1,000 mg by mouth every 8 hours as needed ??? Carboxymethylcellulose Sodium (REFRESH TEARS OP) Apply [...] 1 tablet by mouth 2 times daily. Protein drinks She is not taking biotin?? Or hair skin and nails Allergies Allergies Allergen Reactions ??? Humira Rash ??? [...] ??? Tramadol Itching and Rash Family History family history includes Anxiety Disorder in her sister; Asthma in her brother; DIABETES in her paternal grandmother; Depression in her mother, sister, and sister; Lung Cancer (age of onset: 68) in her mother; Multiple Sclerosis in her sister; OSTEOPOROSIS in her father and sister; Sjogren's in her sister; Thyroid Disease in her mother, sister, and sister. There is no history of Colon Cancer, Crohn Disease, Ulcerative Colitis, Colon Polyps, Glaucoma, Macular Degeneration, or Nephrolithiasis. Social History Social History Substance Use Topics ??? Smoking status: Former Smoker Packs/day: 1.00 Years: 18.00 Types: Cigarettes Start date: 11/11/1972 Quit date: 06/26/1981 ??? Smokeless tobacco: Former User Quit date: 09/20/1991 ??? Alcohol use No Less than 1 gram of sugar/day; no gluten; avoids dairy; one cat from the [place]? Exercise every day -miles chi or walking. She was doing a swivel thing for her hips. She sometimes dance. Uses almond milk Physical Exam BP 101/67 Pulse 96 Ht 1.556 m (5' 1.26) Wt 52.2 kg (115 lb 1.6 oz) BMI 21.56 kg/m2 Body mass index is 21.56 kg/(m^2). GENERAL : Thin woman In no apparent distress. She is wearing multiple layers of clothing (which is not inappropriate for the weather) SKIN: Normal color. Cool/cold temperature EYES: PER, No scleral icterus, No proptosis, conjunctival redness, stare, retraction NECK: thyroid palpable LUNGS clear bilaterally CARDIAC: RRR S1 S2 ABDOMEN: + BS, soft/ nontender NEURO: awake, alert, responds appropriately to questions. Moves all extremities; DTRS 0/4; no tremor EXTREMITIES: No clubbing, cyanosis or edema. DATA REVEIW ENDO THYROID [facility] Latest Ref Rng 08/31/2013 04/02/2013 12/03/2012 TSH 0.4 - 5.0 mU/L 0.65 1.08 0.86 T4 FREE 0.70 - 1.85 ng/dL 1.25 ENDO CALCIUM LABS[facility] Latest Ref Rng 08/31/2013 04/02/2013 CALCIUM 8.5 - 10.4 mg/dL 9.1 9.1 MAGNESIUM 1.6 - 2.3 mg/dL ALBUMIN 3.3 - 4.9 g/dL 4.3 4.2 BUN 7 - 30 mg/dL 15 13 CREATININE 0.52 - 1.04 mg/dL 0.84 0.84 PARATHORMONE, INTACT 12 - 72 pg/mL ALKPHOS 40 - 150 U/L 86 83 25 OH VIT D TOTAL 30 - 75 ug/L VITAMIN D DEFICIENCY SCREENING 30 - 75 ug/L 67 PROTEIN, TOTAL 6.8 - 8.8 g/dL 7.2 6.9 ENDO CALCIUM LABS[facility] Latest Ref Rng 01/28/2013 CALCIUM 8.5 - 10.4 mg/dL MAGNESIUM 1.6 - 2.3 mg/dL ALBUMIN 3.3 - 4.9 g/dL 4.1 BUN 7 - 30 mg/dL CREATININE 0.52 - 1.04 mg/dL PARATHORMONE, INTACT 12 - 72 pg/mL ALKPHOS 40 - 150 U/L 74 25 OH VIT D TOTAL 30 - 75 ug/L VITAMIN D DEFICIENCY SCREENING 30 - 75 ug/L PROTEIN, TOTAL 6.8 - 8.8 g/dL 6.9 ENDO DIABETES Latest Ref Rng 04/02/2013 08/19/2013 HEMOGLOBIN A1C 4.3 - 6.0 % 5.5 HEMOGLOBIN A1C, POC 4.3 - 6 % 5.8 HGB 11.7 - 15.7 g/dL 14.8 GLUCOSE 60 - 99 mg/dL 91 CHOLESTEROL 0 - 200 mg/dL 203 (H) LDL CHOLESTEROL, CALCULATED 0 - 129 mg/dL 87 HDL CHOLESTEROL 50 - 110 mg/dL 84 VLDL-CHOLESTEROL 0 - 30 mg/dL 32 (H) TRIGLYCERIDES 0 - 150 mg/dL 159 (H) CREATININE 0.52 - 1.04 mg/dL 0.84 POTASSIUM 3.4 - 5.3 mmol/L 3.7 ALT 0 - 50 U/L 38 AST 0 - 45 U/L 30 ENDO DIABETES Latest Ref Rng 08/31/2013 HEMOGLOBIN A1C 4.3 - 6.0 % HEMOGLOBIN A1C, POC 4.3 - 6 % HGB 11.7 - 15.7 g/dL 14.6 GLUCOSE 60 - 99 mg/dL 81 CHOLESTEROL 0 - 200 mg/dL LDL CHOLESTEROL, CALCULATED 0 - 129 mg/dL HDL CHOLESTEROL 50 - 110 mg/dL VLDL-CHOLESTEROL 0 - 30 mg/dL TRIGLYCERIDES 0 - 150 mg/dL CREATININE 0.52 - 1.04 mg/dL 0.84 POTASSIUM 3.4 - 5.3 mmol/L 4.2 ALT 0 - 50 U/L 29 AST 0 - 45 U/L 34 documented in this encounter Nursing Notes Heather Milian CMA - 06/19/2017 4:30 PM CDT Chief Complaint Patient presents with ??? RECHECK Age related Osteoporosis Initial BP 101/67 Pulse 96 Ht 1.556 m (5' 1.26) Wt 52.2 kg (115 lb 1.6 oz) BMI 21.56 kg/m2 Estimated body mass index is 21.56 kg/(m^2) as calculated from the following: Height as of this encounter: 1.556 m (5' 1.26). Weight as of this encounter: 52.2 kg (115 lb 1.6 oz). Medication Reconciliation: complete documented in this encounter Plan of Treatment Not on filedocumented as of this encounter Results Adrenal corticotropin (06/20/2017 8:16 AM CDT) [facility] Method Time Signature Adrenal 30 <47 pg/mL 06/20/2017 [facility] Corticotropin 2:52 PM CDT [facility] Specimen Anatomical Collection Method Collection Time Receive d Time (Source) Location / / Volume Laterality Blood specimen 06/20/2017 8:16 AM 018 8:17 (specimen) CDT AM CDT Laisha Moraes MD LAB - BLOOD ORDERABLES Performing Organization Address City/State/ZIP Code Phon e Number [address] [address] [facility] Cortisol (06/20/2017 8:16 AM CDT) athologist Signature Cortisol Serum 9.8 4 - 22 06/20/2017 [facility] ug/dL 10:37 AM CDT [facility] Comment: 8 AM Cortisol Reference Range = 4-22 ug/ dL 4 PM Cortisol Reference Range = 3-17 ug/ dL Specimen Anatomical Collection Method Collection Time Receive d Time (Source) Location / / Volume Laterality Blood specimen 06/20/2017 8:16 AM 018 8:17 (specimen) CDT AM CDT Laisha Moraes MD LAB - BLOOD ORDERABLES Performing Organization Address City/[facility]/ZIP Code Phon e Number [address] [address] [facility] (ABNORMAL) TSH (06/20/2017 8:15 AM CDT) athologist Signature TSH 4.75 (H) 0.40 - 4.00 06/20/2017 [facility] mU/L 8:46 AM CDT [facility] Specimen Anatomical Collection Method Collection Time Receive d Time (Source) Location / / Volume Laterality Blood specimen 06/20/2017 8:15 AM 018 8:16 (specimen) CDT AM CDT Laisha Moraes MD LAB - BLOOD ORDERABLES Performing Organization Address City/State/ZIP Code Phon e Number [address] [address] [facility] T4 free (06/20/2017 8:15 AM CDT) athologist Signature T4 Free 0.98 0.76 - 1.46 06/20/2017 [facility] ng/dL 8:46 AM CDT [facility] Specimen Anatomical Collection Method Collection Time Receive d Time (Source) Location / / Volume Laterality Blood specimen 06/20/2017 8:15 AM 018 8:16 (specimen) CDT AM CDT Laisha Moraes MD LAB - BLOOD ORDERABLES Performing Organization Address City/State/ZIP Code Phon e Number [address] [address] [facility] Vitamin D Deficiency (D3 Only) (06/20/2017 8:15 AM CDT) athologist Signature Vitamin D 27 20 - 75 06/20/2017 [facility] Deficiency ug/L 1:31 PM CDT [facility] Comment: Season, race, dietary intake, and treatm ent affect the concentration of [id number]-Kytsrzo D. Values may decreas e during winter [...] Organization Address City/State/ZIP Code Phon e Number [address] [address] [facility] Parathyroid Hormone Intact (06/20/2017 8:15 AM CDT) athologist Signature Parathyroid 36 18 - 80 06/20/2017 [facility] Hormone Intact pg/mL 11:15 AM CDT [facility] Specimen Anatomical Collection Method Collection Time Receive d Time (Source) Location / / Volume Laterality Blood specimen 06/20/2017 8:15 AM 018 8:16 (specimen) CDT AM CDT Laisha Moraes MD LAB - BLOOD ORDERABLES Performing Organization Address City/State/ZIP Code Phon e Number [address] [place] [address] [facility] Phosphorus (06/20/2017 8:15 AM CDT) P athologist Signature Phosphorus 4.3 2.5 - 4.5 06/20/2017 [facility] mg/dL 8:46 AM CDT [facility] Specimen Anatomical Collection Method Collection Time Receive d Time (Source) Location / / Volume Laterality Blood specimen 06/20/2017 8:15 AM 018 8:16 (specimen) CDT AM CDT Laisha Moraes MD LAB - BLOOD ORDERABLES Performing Organization Address City/[facility]/ZIP Code Phon e Number [address] [address] [facility] Calcium (06/20/2017 8:15 AM CDT) P athologist Signature Calcium 8.5 8.5 - 10.1 06/20/2017 [facility] mg/dL 8:46 AM CDT [facility] Specimen Anatomical Collection Method Collection Time Receive d Time (Source) Location / / Volume Laterality Blood specimen 06/20/2017 8:15 AM 018 8:16 (specimen) CDT AM CDT Laisha Moraes MD LAB - BLOOD ORDERABLES Performing Organization Address City/[facility]/ZIP Code Phon e Number [address] [address] [facility] documented in this encounter Visit Diagnoses Diagnosis Hypocalcemia - Primary Senile osteoporosis History of corticosteroid therapy Personal history of systemic steroid the rapy Loss of weight Hypothyroidism, unspecified type documented in this encounter Additional Health Concerns Assessment Noted Time PHQ-9 Depression Total Score: 3 01/28/2017 10:28 AM CS T documented as of this encounter Care Teams Pediatric Neurologist Relationship Specialty Start Date End Date Edison Tam, PCP - General Family Practice 07/23/[address] [place] [address] [address] [place], [place] [id number] Sheri Casey MD Pulmonary Disease 07/23/[address] [place] [address] [address] [place], [place] [phone] Alphonso Billy MD Cardiology 08/12/14 [address] [place], [place] [phone] Roland Holt MD Resident Student in [facility] 05/12/15 09/24/18 [facility] education/training program Amita Ryan MD MD Internal Medicine 12/19/15 [address] [facility] [id number] [place], [place] [id number] Sid Lilly MD Orthopaedic Surgery 02/22/16 MD Alivia [facility] [facility] [address] [place], [place] [id number] Neda Boland, RN Nurse Coordinator Neurology 02/23/16 09/01/18 documented as of this encounter
--- OUTSIDE RECORDS SUMMARY | 2021-10-24 11:58 | XMS_ITS | Encounter Summary ---
:1955 Author Organization [place] Address [facility] [place] [address] Care Team Providers Name Role Phone Edison Tam MD Primary Care Provider Sheri Casey MD Unavailable Alphonso Billy MD Unavailable Roland Holt MD Unavailable Amita Ryan MD Unavailable Sid Lilly MD Unavailable [phone] Neda Boland RN Unavailable Reason for Visit Reason Comments Consult Discuss possible sleep apnea . Has been having shortness of breath, heart palpatations, night sweats, nausea and vomiting, lack of appetite, fatigue, anxiety, depression and suzanne ry issues (Routine) - Closed Specialty Diagnoses / Procedures Referred By Contact Refer red To Contact Pulmonary Disease / Diagnoses Hypersomnia, per LUIS M WAGONER Packet mailed 04/27/17 Will Marks MD Sleep Medicine Procedures NEW REFERRED INSIDE [address] [address] Phone: Fax: Referral ID Status Reason Start Date Expiration Date Visits Requ ested Visits Authorized [id number] Closed 05/09/2017 05/09/2018 1 1 Encounter Details Date Type Department Care Team Description 05/09/2017 Office Visit [facility] Will Harper MD [facility] [address] [facility] syndrome (RLS) [place] [address] (Primary Dx) [address] [place] [phone] [phone] Social History Tobacco Use Types Packs/Day Years [...] Sign Reading Time Taken Comments Blood Pressure 108/70 05/09/2017 12:25 PM CABIN SERVICE AGENT Pulse 99 05/09/2017 12:25 PM CABIN SERVICE AGENT Temperature - - Respiratory Rate 16 05/09/2017 12:25 PM CABIN SERVICE AGENT Oxygen Saturation 94% 05/09/2017 12:25 PM CABIN SERVICE AGENT Inhaled Oxygen Concentration - - Weight 54.9 kg (121 lb) 05/09/2017 12:25 PM CABIN SERVICE AGENT Height 157.5 cm (5' 2) 05/09/2017 12:25 PM CABIN SERVICE AGENT Body Mass Index 22.13 05/09/2017 12:25 PM CABIN SERVICE AGENT documented in this encounter Patient Instructions Patient InstructionsChasity Elizalde MA - 05/09/2017 12:30 PM CST Take 100 mg of gabapentin at 7 PM at night. Increase the dose to 200 mg in 1 week and to 300 mg in 2weeks. At the same time, reduce the dose of ropinirole by 0.25 mg weekly. Your BMI is Body mass index is 22.13 kg/(m^2). Weight management is a personal decision. [...] is considered obese. More than two-thirds of [place] adults are considered overweight or obese. Being [...] employer, local community center, or saul club. N SERVICE AGENT documented in this encounter Progress Notes Will Harper MD - 05/09/2017 1:47 PM CST SLEEP MEDICINE CLINIC NOTE [facility] Maria E Coley 61 year old female : 1955 PRIMARY CARE PROVIDER: Edison Tam REFERRING PROVIDER: No referring provider defined for this encounter. DATE OF SERVICE 05/09/2017. REASON FOR VISIT: Daytime fatigue, heart palpitations, night sweats and anxiety. 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 She is seen in clinic today for evaluation of fatigue, night sweats, palpitations and anxiety. She reports that she has been experiencing these symptoms for a number of years. She also has restless legs syndrome and for several years has taken 1 mgof ropinirole at bedtime. She describes her current routine as going to bed between 9:30 and 10:30 p.m. Prior to this, she is usually either watching TV or takes a bath. She also uses supplemental oxygen in the evening for several hours at 1-1.5 L/min for a previous history of carbon monoxide exposure. When she gets into bed, it takes her just a few minutes to fall asleep. She reports waking up once through the night to use the bathroom. It is easy for her to go back to sleep again. She finally wakes up spontaneously around 7:30 a.m. She feels rested upon awakening and does not have any significantsleep inertia. She does have significant palpitations and anxiety early in the morning, which lasts most of the day but weans off by the end of the day. She feels that supplemental oxygen might help reduce anxiety and palpitations. She does not have excessive daytime sleepiness. Her [place] SleepinessScore is 2/24 with no chances of falling asleep while driving. She drinks 1 cup of coffee through the day. She does not take any naps, however, she does lie down every day in the afternoon for about 30minutes but does not think that she falls asleep during that time. Besides this, no significant issues with her sleep hygiene. The patient describes experiencing discomfort in her legs with an urge to move, which occurs at bedtime. It usually occurs in one leg at a time and the legs alternate. She is currently experiencing it twice a week despite taking ropinirole. She takes 1 mg of ropinirole just at bedtime. She has taken this medication for over 10 years. She denies any frequent dreams or nightmares, dream enactment behavior or other forms of parasomnia.She does have bruxism and uses a mouthguard for that. She denies waking up with headaches in the morning. She knows that she snores very lightly. She sleeps alone and does not have witnessed apneas. She has very rare snort arousals. She occasionally wakesup with a dry mouth. She does not have any trouble breathing through her nose. She does not have GERD. The patient prefers to sleep on her sides. She denies any features of hypocretin deficiency including cataplexy, sleep paralysis or hypnagogic or hypnopompic hallucinations. SOCIAL HISTORY: The patient is single, lives at home with her cat. She is currently retired. 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 She denies any current alcohol or illicit drug use. She does report a remotehistory of cigarette smoking but quit several decades ago. The patient was born in [place], [place], and moved to the [facility] approximately 5 years ago to live with her twin sister. She is planning on moving to [place] to settle. She does report that there is a family history of snoring and sleep apnea as well as restless legs syndrome. PAST SURGICAL HISTORY: Includes multiple colon surgeries, oophorectomy, wrist and finger surgeries. PAST MEDICAL HISTORY: Crohn's disease, Yossi's thyroiditis and osteoporosis. MEDICATIONS: Ropinirole, vitamin C, vitamin B12, potassium, calcium with vitamin D, magnesium, coenzyme Q10, Prevagen, iron supplement, Tylenol as needed. REVIEW OF SYSTEMS: A complete 14-point review of systems was reviewed and found negative except as noted above. PHYSICAL EXAMINATION: BP 108/70 Pulse 99 Resp 16 Ht 1.575 m (5' 2) Wt 54.9 kg (121 lb) SpO2 94% BMI 22.13 kg/m2 GENERAL: A pleasant female sitting comfortably, speaking in full sentences, without any discomfort. BMI: 22 kg/m2. HEENT: Mallampati class 1 airway. No cervical or submandibular lymphadenopathy. No obstruction to flow in the nares. No turbinate hypertrophy. PULMONARY: Normal intensity breath sounds bilaterally with no added sounds. CARDIOVASCULAR: S1, S2 normal, with no murmurs, rubs or gallops. Regular rate and rhythm. ABDOMEN: Soft, nontender, nondistended, normoactive bowel sounds. MUSCULOSKELETAL: No upper extremity tremors. No lower extremity edema. NEUROLOGIC: Grossly intact. PSYCHIATRIC: Normal affect. SKIN: Normal on limited examination. ASSESSMENT AND PLAN: The patient is a 61-year-old female who is being evaluated for various daytime symptoms including fatigue, palpitations, night sweats and memory issues. She also has restless legs syndrome. Restless legs syndrome. The patient's symptoms are consistent with this diagnosis. She is currently taking ropinirole, but would prefer to get off that medication as she thinks that some of her other symptoms might be related to this medication. She was advised to use gabapentin instead. We will get her on gabapentin, which she was suggested to take at 7:00 p.m. every day. This will be started at 100mg a day and the dose will be increased to 200 mg and then to 300 mg on a weekly basis. Simultaneously, the patient will taper herself off ropinirole at a dose of 0.25 mg every week. The patient does not have any features suggestive of sleep-related breathing disorder. No further testing for this is indicated at this point. The patient will return to clinic in approximately 2 months to follow up on restless legs syndrome. I spent a total of 60 minutes face to face with Maria E Coley during today's office visit. Over50% of this time was spent counseling the patient and/or coordinating care regarding their sleep disorder. Will Harper MD Head And Neck Surgeonpostal clerk Pulmonary, Critical Care and Sleep Medicine [facility] Pager: [phone] MT: KARLENE Name: LIZETTEGILMAR MORAIE Account: [id number] : 1955 Visit Date: 05/09/2017 Document: [id number] N SERVICE AGENT Will Harper MD - 05/09/2017 12:30 PM CST This office note has been dictated. Will Harper N SERVICE AGENT documented in this encounter Nursing Notes Chasity Elizalde MA - 05/09/2017 12:30 PM CST Chief Complaint Patient presents with ??? Consult Discuss possible sleep apnea. Has been having shortness of breath, heart palpatations, night sweats, nausea and vomiting, lack of appetite, fatigue, anxiety, depression and memory issues Initial BP 108/70 Pulse 99 Resp 16 Ht 1.575 m (5' 2) Wt 54.9 kg (121 lb) SpO2 94% BMI 22.13 kg/m2 Estimated body mass index is 22.13 kg/(m^2) as calculated from the following: Height as of this encounter: 1.575 m (5' 2). Weight as of this encounter: 54.9 kg (121 lb). Medication Reconciliation: HALINA Henao N SERVICE AGENT documented in this encounter Plan of Treatment Not on filedocumented as of this encounter Visit Diagnoses Diagnosis Restless legs syndrome (RLS) - Primary documented in this encounter Additional Health Concerns Assessment Noted Time PHQ-9 Depression Total Score: 3 01/28/2017 10:28 AM CS T documented as of this encounter Care Teams Traffic Law Attorney Relationship Specialty Start Date End Date Edison Tam, PCP - General Family Practice 07/23/[address] [place] [address] 4 [place], [place] [address] Sheri Casey MD Pulmonary Disease 07/23/[address] [place] [address] 276 [place], [place] 2[address] Alphonso Billy MD Cardiology 08/12/[address] [place] [id number] Roland Holt MD Resident Student in [facility] 05/12/15 09/24/18 [facility] education/training program Amita Ryan MD MD Internal Medicine 12/19/15 909 [facility] [id number] [place], [place] [phone] Sid Lilly MD Orthopaedic Surgery 02/22/16 MD Alivia [facility] [address] [place], [place] [phone] Neda Boland, RN Nurse Coordinator Neurology 02/23/16 09/01/18 documented as of this encounter
--- OUTSIDE RECORDS SUMMARY | 2021-10-24 11:58 | XMS_ITS | Encounter Summary ---
:1955 Author Organization [place] Address [facility] [place] [address] Care Team Providers Name Role Phone Edison Tam MD Primary Care Provider Sheri Casey MD Unavailable Alphonso Billy MD Unavailable Roland Holt MD Unavailable Amita Ryan MD Unavailable Sid Lilly MD Unavailable [phone] Neda Boland RN Unavailable Encounter Details Date Type Department Care Team Description 02/20/2017 Medical Correspondence [facility] Scan, ORDER GLUCOSE TEST Health Info Mgmt Non-Provider STRIPS APOLONIA WILSON [facility] [place] [address] Social History Tobacco Use Types [...] documented as of this encounter Care Teams Box Printer Relationship Specialty Start Date End Date Edison Tam, PCP - General Family Practice 07/23/14 909 [facility] [address] 4 [place], [place] [phone] Sheri Casey MD Pulmonary Disease 07/23/14 420 [facility] 276 [place], [place] [phone] Alphonso Billy MD Cardiology 08/12/[address] [place] [phone] Roland Holt MD Resident Student in [facility] 05/12/15 09/24/18 health [facility] education/training program Amita Ryan MD MD Internal Medicine 12/19/15 909 [facility] [id number] [place], [place] [phone] Sid Lilly MD Orthopaedic Surgery 02/22/16 MD Alivia [facility] [facility] [address] [place], [place] [phone] Neda Boland, NANDINI Nurse Coordinator Neurology 02/23/16 09/01/18 documented as of this encounter
--- OUTSIDE RECORDS SUMMARY | 2021-10-24 11:58 | XMS_ITS | Encounter Summary ---
:1955 Author Organization [place] Address [address] [place] [address]. [place] [address] Care Team Providers Name Role Phone Edison Tam MD Primary Care Provider Sheri Casey MD Unavailable Alphonso Billy MD Unavailable Roland Holt MD Unavailable Amita Ryan MD Unavailable Sid Lilly MD Unavailable [phone] Neda Boland RN Unavailable Encounter Details Date Type Department Care Team Description 02/06/2017 Medical Correspondence [facility] LYNDON Valdes ORDER FOR Health Info Mgmt Non-Provider DIABETES TE STING Srvcs SUPPLY [address] [place] [phone] Social History Tobacco Use Types Packs/Day [...] documented as of this encounter Care Teams Tobacco Flavorer Relationship Specialty Start Date End Date Edison Tam, PCP - General Family Practice 07/23/[address] [facility] [place] 4 [place], [place] [address] Sheri Casey MD Pulmonary Disease 07/23/14 420 [facility] MMC 276 [place], [place] [phone] Alphonso Billy MD Cardiology 08/12/[address] [place] [phone] Roland Holt MD Resident Student in [facility] 05/12/15 09/24/18 health [facility] education/training program Amita Ryan MD MD Internal Medicine 12/19/[address] [facility] [id number] [place], [place] [phone] Sid Lilly MD Orthopaedic Surgery 02/22/16 MD Alivia [address] [facility] [address] [place], [place] [phone] Neda Boland, NANDINI Nurse Coordinator Neurology 02/23/16 09/01/18 documented as of this encounter
--- OUTSIDE RECORDS SUMMARY | 2021-10-24 11:58 | XMS_ITS | Encounter Summary ---
:1955 Author Organization [place] Address [address] [place] [address] Care Team Providers Name Role Phone Edison Tam MD Primary Care Provider Sheri Casey MD Unavailable Alphonso Billy MD Unavailable Roland Holt MD Unavailable Amita Ryan MD Unavailable Sid Lilly MD Unavailable [phone] Neda Boland RN Unavailable Encounter Details Date Type Department Care Team Description 05/23/2017 Therapy Visit [facility] Maria Victoria Chaudhary Bilat eral shoulder Rehabilitation Services [employer] pain [facility] 909 [facility] THERAPY 5th Floor 909 [place] [phone] Social History Tobacco Use Types Packs/Day Years [...] Associated Diagnosis Comme nts [facility] THERAPEUTIC Routine 05/23/2017 4:03 PM Bilateral shoulder EXERCISES CDT pain documented in this encounter Visit Diagnoses Diagnosis Bilateral shoulder pain Pain in joint, shoulder region documented in this encounter Additional Health Concerns Assessment Noted Time PHQ-9 Depression Total Score: 3 01/28/2017 10:28 AM CS T documented as of this encounter Care Teams Patient Financial Advocate Relationship Specialty Start Date End Date Edison Tam, PCP - General Family Practice 07/23/[address] [place] [address] [address] 4 [place], [place] [phone] Sheri Casey MD Pulmonary Disease 07/23/[address] [place] [address] 276 [place], [place] [address] Alphonso Billy MD Cardiology 08/12/[address] [place] [phone] Roland Holt MD Resident Student in [facility] 05/12/15 09/24/18 health [facility] education/training program Amita Ryan MD MD Internal Medicine 12/19/[address] [place] [address] [id number] [place], [place] [address] iSd Lilly MD Orthopaedic Surgery 02/22/16 MD Alivia [facility] S [facility] [address] [place], [place] [address] Neda Boland, NANDINI Nurse Coordinator Neurology 02/23/16 09/01/18 documented as of this encounter
--- OUTSIDE RECORDS SUMMARY | 2021-10-24 11:58 | XMS_ITS | Encounter Summary ---
:1955 Author Organization [place] Address [address] [place] [address] Care Team Providers Name Role Phone Edison Tam MD Primary Care Provider Sheri Casey MD Unavailable Alphonso Billy MD Unavailable Roland Holt MD Unavailable Amita Ryan MD Unavailable Sid Lilly MD Unavailable [phone] Neda Boland RN Unavailable Encounter Details Date Type Department Care Team Description 04/27/2017 Orders Only [facility] RODGERS (dyspnea on exertion); 9 [facility] SE Hypersomnia 1st Floor [place] [phone] Social History Tobacco Use Types Packs/Day [...] Procedure Name Priority Date/Time Associated Comments Diagnosis CORTISOL Routine 04/27/2017 11:19 AM Hypersomnia Results for this COMMERCIAL DEVELOPMENT MANAGER RODGERS (dyspnea on procedure ar e in exertion) the results section. N TERMINAL PRO BNP Routine 04/27/2017 11:18 AM RODGERS (dyspnea on Results for this OUTPATIENT COMMERCIAL DEVELOPMENT MANAGER exertion) procedure are i n the results section. documented in this encounter Results Cortisol (04/27/2017 11:19 AM COMMERCIAL DEVELOPMENT MANAGER) P athologist Signature Cortisol Serum 8.8 4 - 22 04/27/2017 [facility] ug/dL 3:15 PM [facility] Comment: 8 AM Cortisol Reference Range = 4-22 ug/ dL 4 PM Cortisol Reference Range = 3-17 ug/ dL Specimen Anatomical Collection Method Collection Time Receive d Time (Source) Location / / Volume Laterality Blood specimen 04/27/2017 11:19 8 (specimen) AM COMMERCIAL DEVELOPMENT MANAGER 11:21 AM COMMERCIAL DEVELOPMENT MANAGER Omar Lomeli MD LAB - BLOOD ORDERABLES Performing Organization Address City/[facility]/ZIP Code Phon e Number [id number] [place] [address] N terminal pro BNP (04/27/2017 11:18 AM [facility]) athologist Signature N-Terminal Pro 92 0 - 125 04/27/2017 [facility] Bnp pg/mL 11:44 AM [facility] Comment: Reference range shown and results flagge [...] Blood specimen 04/27/2017 11:18 8 (specimen) AM COMMERCIAL DEVELOPMENT MANAGER 11:20 AM COMMERCIAL DEVELOPMENT MANAGER Omar Lomeli MD LAB - BLOOD ORDERABLES Performing Organization Address City/[facility]/ZIP Code Phon e Number [address] [address] [facility] documented in this encounter Visit Diagnoses Diagnosis RODGERS (dyspnea on exertion) Other dyspnea and respiratory abnormalit y Hypersomnia Hypersomnia, unspecified documented in this encounter Additional Health Concerns Assessment Noted Time PHQ-9 Depression Total Score: 3 01/28/2017 10:28 AM CS T documented as of this encounter Care Teams Slab Lifting Supervisor Relationship Specialty Start Date End Date Edison Tam, PCP - General Family Practice 07/23/[address] [place] [address] [address] 4 [place], [place] [phone] Sheri Casey MD Pulmonary Disease 07/23/14 420 [facility] MMC 276 [place] [address] Alphonso Billy MD Cardiology 08/12/[address] [place] [phone] Roland Holt MD Resident Student in [facility] 05/12/15 09/24/18 health care education/training program Amita Ryan MD MD Internal Medicine 12/19/[address] [place] [address] [id number] [place], [place] [phone] Sid Lilly MD Orthopaedic Surgery 02/22/16 MD Alivia [facility] [address] [place], [place] [phone] Neda Boland, NANDINI Nurse Coordinator Neurology 02/23/16 09/01/18 documented as of this encounter
--- OUTSIDE RECORDS SUMMARY | 2021-10-24 11:58 | XMS_ITS | Encounter Summary ---
:1955 Author Organization [place] Address [address] [place] [address] Care Team Providers Name Role Phone Edison Tam MD Primary Care Provider Sheri Casey MD Unavailable Alphonso Billy MD Unavailable Roland Holt MD Unavailable Amita Ryan MD Unavailable Sid Lilly MD Unavailable [phone] Neda Boland RN Unavailable Reason for Visit Reason Comments Medication Refill Levothyroxine Sodium 50 MCG CAPS Encounter Details Date Type Department Care Team Description 05/30/2017 Refill [facility] Primary Care Edison Tam edication Refill Clinic MD Marcia (Levothyroxine Sodium 50 909 [facility] SE 909 [facility] [place] MCG CAPS ) 4th Floor 4 [place] [phone] (Wo rk) Social History Tobacco Use Types Packs/Day Years Used Date Former Smoker Cigarettes 1 18 11/11/1972 - 0 06/26/1981 Smokeless Tobacco: Former User Q uit: 09/20/1991 Alcohol Use Standard Drinks/Week Comments No 0 (1 standard drink = 0.6 oz pure alcoho l) Sex Assigned at Date Recorded Not on file documented as of this encounter Miscellaneous Notes Telephone Encounter - Nena Bailey RN - 05/31/2017 10:40 AM CDT Spoke with patient, and she said to disregard this refill request at this time. She has an appointment with Endocrinology in 1 month, and will address it at that time. She had been taking [id number] daily, but isn't sure that that is the correct dose anymore. On her own she has decreased it to 25mcg daily, as she feels that a different amount has been needed since stopping prednisone. TSH was done 04/22/17 with result of 3.72. Does not need anything at this time and will discuss all of this with integrated circuit ic layout designer. Telephone Encounter - Ainsley Clarke RN - 05/31/2017 9:30 AM CDT Levothyroxine Sodium 50 MCG CAPS Last Written Prescription Date: 05/09/16 Last Fill Quantity: 90, # refills: 2 Last Office Visit : 04/27/17 Future Office visit: none Routing Because: Med end date 01/28/17 documented in this encounter Plan of Treatment Not on filedocumented as of this encounter Visit Diagnoses Diagnosis Yossi's thyroiditis Chronic lymphocytic thyroiditis documented in this encounter Additional Health Concerns Assessment Noted Time PHQ-9 Depression Total Score: 3 01/28/2017 10:28 AM CS T documented as of this encounter Care Teams Fire Investigation Manager Relationship Specialty Start Date End Date Edison Tam, PCP - General Family Practice 07/23/14 909 [facility] 4 [place] [address] Sheri Casey MD Pulmonary Disease 07/23/14 420 [facility] 276 [place] [address] Alphonso Billy MD Cardiology 08/12/14 8 420 [place], [place] [phone] Roland Holt MD Resident Student in [facility] 05/12/15 09/24/18 health care education/training program Amita Ryan MD MD Internal Medicine 12/19/15 909 [facility] [id number] [place], [place] [phone] Sid Lilly MD Orthopaedic Surgery 02/22/16 MD Alivia [facility] [address] [place], [place] [phone] Neda Boland, NANDINI Nurse Coordinator Neurology 02/23/16 09/01/18 documented as of this encounter
--- OUTSIDE RECORDS SUMMARY | 2021-10-24 11:59 | XMS_ITS | Encounter Summary ---
:1955 Author Organization [place] Address Formerly [facility], [facility] [place] [address] Care Team Providers Name Role Phone Edison Olivas MD Primary Care Provider Sheri Casey MD Unavailable Alphonso Blily MD Unavailable Roland Holt MD Unavailable Amita Ryan MD Unavailable Reason for Visit (Routine) - Closed Specialty Diagnoses / Procedures Referred By Contact Refer red To Contact Cardiology Diagnoses sb [facility] Z Uu Echocardiography Procedures ECH DOBUTAMINE STRESS TEST [address] [place] [address] Phone: Referral ID Status Reason Start Date Expiration Date Visits Requ ested Visits Authorized [id number] Closed 01/30/2016 01/29/2017 1 1 Encounter Details Date Type Department Care Team Description 01/31/2016 Hospital Encounter [facility], [place], Jose Martin Otto, Chest pressure Echocardiography [address] [facility] [address] [facility] [place] [address] [address] [place], [place] [phone] (Wo rk) Social History Tobacco Use Types Packs/Day Years Used Date Former Smoker Cigarettes 1 18 11/11/1972 - 0 06/26/1981 Smokeless Tobacco: Former User Q uit: 09/20/1991 Alcohol Use Standard Drinks/Week Comments No 0 (1 standard drink = 0.6 oz pure alcoho l) Sex Assigned at Date Recorded Not on file documented as of this encounter Medications at Time of Discharge [...] Oxygen with nasal cannula at 1-2 liters ALPRAZolam (XANAX) 0.5 MG Take 0.5 mg by 0 01/28/2017 tablet mouth At Bedtime buPROPion (WELLBUTRIN SR) Take 300 mg by 0 01/28/2017 150 MG 12 hr tablet mouth every morning cholecalciferol (VITAMIN D) Take 1 tablet 100 tablet 3 04/0705/09/2017 1000 UNIT tabletIndications: (1,000 Units) by Osteopenia mouth daily Discontinue Vitamin D 91040 multivitamin (THERA-PLUS) Take 5 mLs by 0 05/09/2017 LIQD mouth daily. ORDER FOR DMEIndications: Injection 12 each 0 04/27/2013 01/28/2017 B12 deficiency Supplies for Vitamin B12: 3cc syringes w/ 27 gauge needles, 1 inch length Potassium Chloride CR 8 MEQ Take 16 mEq by 30 capsule 0 12/1001/28/2017 CPCRIndications: mouth daily NEED Hypopotassemia APPT WITH DR. OLIVAS FOR REFILLS. predniSONE (DELTASONE) 1 MG Take 2 tablets (2 180 tablet 3 0 05/09/2015 11/23/2016 tabletIndications: mg) by mouth Preoperative examination daily With the 5mg tab for total of 7mg daily. blood glucose monitoring (NO Use to test blood 100 each 3 12/19/2015 01/28/2017 BRAND SPECIFIED) test sugars one times stripIndications: Other daily or as abnormal glucose directed cyanocobalamin (VITAMIN B12) Inject 1 mL 1 mL 11 201501/28/2017 1000 MCG/ML (1,000 mcg) into injectionIndications: B12 the muscle every deficiency 30 days Levothyroxine Sodium 50 MCG Take 1 tablet by 90 capsule 2 05/09/2016 CAPSIndications: Yossi's mouth daily thyroiditis predniSONE (DELTASONE) 5 MG (total daily dose 90 tablet 3 0 11/04/2015 01/28/2017 tabletIndications: Crohn's 7 mg/day) disease of both small and large intestine with complication (H), Osteoporosis, Yossi's thyroiditis propranolol (INDERAL) 10 MG Take 1 tablet (10 90 tablet 3 0 08/15/2015 01/28/2017 tabletIndications: mg) by mouth Palpitations daily rOPINIRole (REQUIP) 1 MG Take 1 tablet (1 90 tablet 3 07/0602/07/2016 tabletIndications: Restless mg) by mouth At leg Bedtime May take 1/2 tab additional prn once daily. venlafaxine (EFFEXOR-ER) 150 150 mg 0 01/28/2017 MG TB24 documented as of this encounter Plan of Treatment Not on filedocumented as of this encounter Procedures Procedure Name Priority Date/Time Associated Comments Diagnosis ECHO DOBUTAMINE Routine 01/31/2016 10:33 AM Chest pressure Res ults for this STRESS TEST WITH ANALYTICAL CHEMIST procedure a re in DEFINITY the results section. documented in this encounter Results Echo stress test with definity (01/31/2016 10:33 AM ANALYTICAL CHEMIST) Anatomical Region Laterality Modality Echocardiography Specimen (Source) Anatomical Collection Method Collection Time Re ceived Time Location / / Volume Laterality 01/31/2016 10:04 AM ANALYTICAL CHEMIST Narrative 01/31/2016 10:46 AM ANALYTICAL CHEMIST Interpretation Summary [facility] E[facility] [address] [place] [id number] Name: LIZETTE MARIA E E : 1955 Study Date: 01/31/2016 10:04 AM Age: 60 yrs Gender: Female Patient Location: [facility] Reason For Study: , Other chest pain Ordering Physician: Jose Martin OTTO Referring Physician: Jose Martin OTTO Performed By: Gerson Chun MILAD BSA: 1.6 m2 Height: 62 in Weight: 135 lb BP: 107/60 mmHg Interpretation Summary Low risk dobutamine stress echocardiogra phy with no inducible ischemia. Normal blood pressure and heart rate res ponse to dobutamine No anginal symptoms during stress test. No ECG evidence of ischemia at rest or w ith dobutamine. No stress induced regional wall motion a bnormalities. Normal resting LV function with EF of ap proximately 55-60%, with dobutamine left ventricular cavity size decreases a nd LVEF increases to 65-70%. Normal biventricular function and no sig nificant valvular dysfunction noted on screening 2D and Doppler examination. Stress The drug infusion was stopped due to tar get heart rate achieved. The patient did not exhibit any symptoms during drug infusion. The maximum dose of dobutamine was 50mcg /kg/min. The maximum dose of atropine was 0.2mg. The maximum dose of metoprolol was 2mg. Definity (ND #40862-833-04) given intra venously. Patient was given 4ml mixture of 1.5ml D efinity and 8.5ml saline. 6 ml wasted. Definity Expiration 01-09-2017 . Definity Lot # [id number] . Normal blood pressure response to medica tion. The EKG portion of this stress test was negative for inducible ischemia (see echo results below). Normal resting wall motion and no stress -induced wall motion abnormality. Baseline Normal baseline electrocardiogram. Normal left ventricular wall motion. Stress Results ? Maximum Predicted HR: ??159 bpm ?Target HR: 135 bpm ?% Maximum Predicted HR: ??91 % ?+--------+ --------+ +------+ ?: ?:Duration:Heart Rate: ?: ?: Stage ?? :(mm:ss) : ??(bpm) ?? :BP ?: ?+--------+ --------+ +------+ ?:Baseline: ?: ?80 107/60 ?: ?+--------+ --------+ +------+ ?: ??Peak ? ?: ??6:19 14 ? 4 ?:127/44: ?+--------+ --------+ +------+ ?Stress Dur ation: ??6:19 mm:ss * ? Maximum Stre ss HR: ??144 bpm * Left Ventricle The left ventricle is normal in size. Le ft ventricular systolic function is normal. Right Ventricle The right ventricle is normal in size an d function. Mitral Valve The mitral valve is normal in structure and function. Tricuspid Valve The tricuspid valve is normal in structu re and function. Aortic Valve The aortic valve is normal in structure and function. Vessels The aortic root is normal size. Pericardium There is no pericardial effusion. Procedure Dobutamine Echo Complete. Contrast Defin ity. MMode/2D Measurements & Calculations asc Aorta Diam: 3.0 cm Report approved by: Iva Schuler 10:46 AM Procedure Note Vero Benz MD - 01/31/2016Form atting of this note might be different from the original. Interpretation Summary [facility] Echocardi[facility] Laboratory [address] [place] [address] Name: MARIA E COLEY : 1955 Study Date: 01/31/2016 10:04 AM Age: 60 yrs Gender: Female Patient Location: [facility] Reason For Study: , Other chest pain Ordering Physician: Jose Martin OTTO Referring Physician: Jose Martin OTTO Performed By: Gerson Chun RDCS BSA: 1.6 m2 Height: 62 in Weight: 135 lb BP: 107/60 mmHg Interpretation Summary Low risk dobutamine stress echocardiogra phy with no inducible ischemia. Normal blood pressure and heart rate res ponse to dobutamine No anginal symptoms during stress test. No ECG evidence of ischemia at rest or w ith dobutamine. No stress induced regional wall motion a bnormalities. Normal resting LV function with EF of ap proximately 55-60%, with dobutamine left ventricular cavity size decreases a nd LVEF increases to 65-70%. Normal biventricular function and no sig nificant valvular dysfunction noted on screening 2D and Doppler examination. Stress The drug infusion was stopped due to tar get heart rate achieved. The patient did not exhibit any symptoms during drug infusion. The maximum dose of dobutamine was 50mcg /kg/min. The maximum dose of atropine was 0.2mg. The maximum dose of metoprolol was 2mg. Definity ([facility] #12048-500-69) given intra venously. Patient was given 4ml mixture of 1.5ml D efinity and 8.5ml saline. 6 ml wasted. Definity Expiration 01-09-2017 . Definity Lot # [id number] . Normal blood pressure response to medica tion. The EKG portion of this stress test was negative for inducible ischemia (see echo results below). Normal resting wall motion and no stress -induced wall motion abnormality. Baseline Normal baseline electrocardiogram. Normal left ventricular wall motion. Stress Results Maximum Predicted HR: 159 bpm Target HR: 135 bpm % Maximum Predicted HR: 91 % +--------+--------+ +------+ : :Duration:Heart Rate: : : Stage :(mm:ss) : (bpm) :BP : +--------+--------+ +------+ :Baseline: : 80 107/60 : +--------+--------+ +------+ : Peak : 6:19 14 4 :127/44: +--------+--------+ +------+ Stress Duration: 6:19 mm:ss * Maximum Stress HR: 144 bpm * Left Ventricle The left ventricle is normal in size. Le ft ventricular systolic function is normal. Right Ventricle The right ventricle is normal in size an d function. Mitral Valve The mitral valve is normal in structure and function. Tricuspid Valve The tricuspid valve is normal in structu re and function. Aortic Valve The aortic valve is normal in structure and function. Vessels The aortic root is normal size. Pericardium There is no pericardial effusion. Procedure Dobutamine Echo Complete. Contrast Defin ity. MMode/2D Measurements & Calculations asc Aorta Diam: 3.0 cm Report approved by: Iva Schuler 10:46 AM Authorizing Provider Result Johana Otto MD CV ECHO ORDERABLES documented in this encounter Visit Diagnoses Diagnosis Chest pressure Other chest pain documented in this encounter Administered Medications Inactive Administered Medications - up to 3 most recent administrations Medication Order MAR Action Action Date Dose Rate Site atropine injection 0.4 mg Given 01/31/2016 10:22 AM ANALYTICAL CHEMIST 0.2 mg 0.4 mg, Intravenous, ONCE, On Sat01/31/16 at 1000, For 1 dose DOBUTamine 500 mg in New Bag 01/31/2016 10:18 AM ANALYTICAL CHEMIST 30 mcg/kg/min 55.4 mL/hr dextrose 5% 250 mL (adult std) 5-40 mcg/kg/min ? 61.5 kg (9.225-73.8 mL/hr, rounded to 9.2-73.8 mL/hr), Intravenous, CONTINUOUS, Starting on Sat01/31/16 at 1000 metoprolol (LOPRESSOR) injection 15 mg Given 01/31/2016 10:26 AM ANALYTICAL CHEMIST 2 mg 15 mg, Intravenous, EVERY 1 MIN PRN, high blood pressure, Starting on Sat01/31/16 at 0949 perflutren diluted in saline (DEFINITY) Given 01/31/2016 10:29 A M ANALYTICAL CHEMIST 4 mLs injection 6 mL 6 mL, Intravenous, ONCE, On Sat01/31/16 at 1000, For 1 dose documented in this encounter Additional Health Concerns Assessment Noted Time PHQ-9 Depression Total Score: 14 05/13/2015 7:50 AM MILAD T documented as of this encounter Care Teams 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 And Watch Hands Painter Relationship Specialty Start Date End Date Edison Olivas MD PCP - General Family Practice 07/23/14 [address] [facility] [address] [place] [address] Sheri Casey MD MD Pulmonary Disease 07/23/14 420 [facility] [address] [place], [place] [id number] Alphonso Billy MD MD Cardiology 08/12/14 12/26/17 [address] [place], [place] [id number] Roland Holt MD Resident Student in [employer] 05/12/15 09/24/18 [facility] education/training program Amita Ryan MD MD Internal Medicine 12/19/15 [address] [facility] [id number] [place], [place] [id number] documented as of this encounter
--- OUTSIDE RECORDS SUMMARY | 2021-10-24 11:59 | XMS_ITS | Encounter Summary ---
:1955 Author Organization [place] Address [address] [place] [address] Care Team Providers Name Role Phone Edison Tam MD Primary Care Provider Sheri Casey MD Unavailable Alphonso Billy MD Unavailable Roland Holt MD Unavailable Amita Ryan MD Unavailable Reason for Visit Reason Onset Date Comments Previsit 02/01/2016 records in [facility] Encounter Details Date Type Department Care Team Description 02/01/2016 PRE VISIT [facility] Neurology Bushra Clarke Previsit (records in [address] [place] [address] EREN Yang [facility]) [address] [address] [id number] [phone] [place] [address] (Wo rk) Social History Tobacco Use Types Packs/Day Years Used Date Former Smoker Cigarettes 1 18 11/11/1972 - 0 06/26/1981 Smokeless Tobacco: Former User Q uit: 09/20/1991 Alcohol Use Standard Drinks/Week Comments No 0 (1 standard drink = 0.6 oz pure alcoho l) Sex Assigned at Date Recorded Not on file documented as of this encounter Miscellaneous Notes Telephone Encounter - Colleen Vargas - 02/01/2016 11:16 AM CST 1. Date/reason for appt: 02/20/16 - muscle weakness 2. Referring provider: Dr. Edison Tam 3. Call to patient (Yes / No - short description): no, recs in epic 4. 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 Operator Helper Relationship Specialty Start Date End Date Edison Tam MD PCP - General Family Practice 07/23/14 9[address] [facility] 4 [place], [place] [phone] Sheri Casey MD MD Pulmonary Disease 07/23/14 420 [facility] [address] [place], [place] [phone] Alphonso Billy MD MD Cardiology 08/12/14 12/26/17 420 [place], [place] [phone] Roland Holt MD Resident Student in [facility] 05/12/15 09/24/18 [facility] education/training program Amita Ryan MD MD Internal Medicine 12/19/15 [address]09 [facility] [id number] [place], [place] [id number] documented as of this encounter
--- OUTSIDE RECORDS SUMMARY | 2021-10-24 11:59 | XMS_ITS | Encounter Summary ---
:1955 Author Organization [facility] Address [address] [place] [address] Care Team Providers Name Role Phone Edison Olivas MD Primary Care Provider Sheri Casey MD Unavailable Alphonso Billy MD Unavailable Roland Holt MD Unavailable Amita Ryan MD Unavailable Reason for Referral Therapeutic Services - Closed Specialty Diagnoses / Procedures Referred By Contact Refer red To Contact Diagnoses Robert Valdovinos MD [address] 3045 5 Referral ID Status Reason Start Date Expiration Date Visits Requ ested Visits Authorized [id number] Closed 01/19/2016 01/18/2017 1 1 [facility]UM [facility] Therapeutic Services - Closed Specialty Diagnoses / Procedures Referred By Contact Refer red To Contact Diagnoses Robert Valdovinos MD [address] [place] [phone] Referral ID Status Reason Start Date Expiration Date Visits Requ ested Visits Authorized [id number] Closed 01/19/2016 01/18/2017 1 1 [facility]USEUM DOCENT Reason for Visit Reason Comments Consult Throat pain Encounter Details Date Type Department Care Team Description 01/19/2016 Office Visit [facility] Ear Nose and Robert Cadetanandness (Primary Throat MD Bin Dx) [address] [facility] [facility] [address] [facility] 4th Floor [facility] [address] [place] [address] [phone] (Wo rk) Social History Tobacco Use Types Packs/Day Years Used Date Former Smoker Cigarettes 1 18 11/11/1972 - 0 06/26/1981 Smokeless Tobacco: Former User Q uit: 09/20/1991 Tobacco Cessation: Counseling Given: No Alcohol Use Standard Drinks/Week Comments No 0 (1 standard drink = 0.6 oz pure alcoho l) Sex Assigned at Date Recorded Not on file documented as of this encounter Patient Instructions Patient InstructionsPattersonRobert MD - 01/19/2016 1:54 PM ART [employer]USEUM DOCENT The patient presents with a history of hoarseness. The patient will be referred for a speech pathology and speech therapy consultation. She will also gargle water and thoroughly rinse her mouth after each oral inhaler use. MUSEUM DOCENT documented in this encounter Progress Notes Robert Cadet MD - 01/19/2016 1:45 PM CST The patient presents with a history of chronic hoarseness. The patient reports that this condition has been present for many months and it continues to worsen. The patient reports that the symptoms began after a carbon monoxide exposure. The patient denies gastroesophageal reflux symptoms or heartburn. The patient denies dysphagia, odynophagia, hemoptysis, hematemasis, or unexplained weight loss. Thepatient is using oral inhalent medications for asthma. The patient denies events of respiratory distress. The patient denies sinusitis, rhinitis, facial pain, nasal obstruction or purulent nasal discharge. The patient denies chronic or recurrent tonsillitis, chronic or recurrent pharyngitis. The patient denies otalgia, otorrhea, eustachian tube dysfunction, ear infections, dizziness or tinnitus. The patient is most bothered by events of pressure in the chest in the midline at times. This patient is seen in consultation at the request of Dr. Edison Olivas. Past Medical History: Past Medical History Diagnosis Date ??? Crohn's 1977 on prednisone chronically ??? Osteoporosis ??? Fracture of wrist fall ??? Narcotic dependence, in remission (H) rehab ??? Nicotine dependence in remission ??? Menarche 9 y.o menapuase age 40 was on prednisone ??? Fibromyalgia ??? Lupus (H) has had positive flare ups ??? Bunion ??? Arthritis ??? Anxiety ??? Depression ??? 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 Yossi's disease ??? Vision disorder dry eyes ??? 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 History of blood transfusion N/A ??? Personal history of colonic polyps N/A ??? Genital problems fistulas in genital area getting bigger, mass on overy ??? Other bladder disorder mass on my right? kidney ??? Fracture yes, but not recently ??? Head injury 2012 tumbled down a full flight of stairs ??? Endocrine problem ??? History of steroid therapy ??? Immunosuppression (H) ??? Chronic diarrhea ??? Fecal incontinence thru fistulas ??? Depressive disorder spoke with psychiatrist and increased meds ??? Sleep apnea sister ??? Hoarseness september, me ??? Chronic sinusitis me---This started so long ago, I can't give you a date ??? Tinnitus can't remember me, sister, father ??? Uncomplicated asthma was just diagnosed last week ??? Bone disease osteoporosis ??? Kidney problem mass on my right kidney Past Surgical History: Past Surgical History Procedure Laterality Date ??? Appendectomy open 1985 ??? Left ovary removal was removed during a resection ??? 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 Sigmoidectomy left ovary removal ??? Small bowel resection 1985 colon and distal ilium ??? Back surgery 2008 L4-L5 laminectomy ??? Back surgery 2010 L5 ??? Colonoscopy ??? Release carpal tunnel right ??? Esophagoscopy, gastroscopy, duodenoscopy (egd), combined 08/26/2012 Procedure: COMBINED ESOPHAGOSCOPY, GASTROSCOPY, DUODENOSCOPY (EGD), BIOPSY SINGLE OR MULTIPLE;; Surgeon: Charan Salazar MD; Location: [facility] ??? Repair nerve microscopic upper extremity 04/16/2013 Procedure: REPAIR NERVE MICROSCOPIC UPPER EXTREMITY; Left Index Finger Digital Nerve Repair with Nuerogen tibe; Surgeon: Marisol Hathaway MD; Location: [facility] ??? Biopsy yes ??? Electronic Data Processing Auditor surgery mass on remaining ovary ??? Ent surgery september 2015 I seem to have developed a chronic sore throat Medications: Current outpatient prescriptions: ??? albuterol (PROAIR HFA, PROVENTIL HFA, VENTOLIN HFA) 108 (90 BASE) MCG/ACT inhaler, Inhale 2 puffs into the lungs every 6 hours as needed for shortness of breath / dyspnea or wheezing, Disp: 1 Inhaler, Rfl: 11 ??? cyanocobalamin (VITAMIN B12) 1000 MCG/ML injection, Inject 1 mL (1,000 mcg) into the muscle every 30 days, Disp: 1 mL, Rfl: 11 ??? blood glucose monitoring (NO BRAND SPECIFIED) test strip, Use to test blood sugars one times daily or as directed, Disp: 100 each, Rfl: 3 ??? predniSONE (DELTASONE) 5 MG tablet, (total daily dose 7 mg/day), Disp: 90 tablet, Rfl: 3 ??? Levothyroxine Sodium 50 MCG CAPS, Take 1 tablet by mouth daily, Disp: 90 capsule, Rfl: 2 ??? venlafaxine (EFFEXOR-ER) 150 MG TB24, 150 mg , Disp: , Rfl: ??? propranolol (INDERAL) 10 MG tablet, Take 1 tablet (10 mg) by mouth daily, Disp: 90 tablet, Rfl: 3 ??? rOPINIRole (REQUIP) 1 MG tablet, Take 1 tablet (1 mg) by mouth At Bedtime May take 1/2 tab additional prn once daily., Disp: 90 tablet, Rfl: 3 ??? predniSONE (DELTASONE) 1 MG tablet, Take 2 tablets (2 mg) by mouth daily With the 5mg tab for total of 7mg daily., Disp: 180 tablet, Rfl: 3 ??? ORDER FOR DME, SET TO LOCAL PRINT,, Equipment being ordered: portable Oxygen with nasal cannula at 1-2 liters, Disp: 1 Can, Rfl: 3 ??? UNABLE TO FIND, 3 times daily MEDICATION NAME:Japanese herbs, Disp: , Rfl: ??? L-Lysine 500 MG TABS, Take 1 tablet by mouth daily, Disp: , Rfl: ??? ORDER FOR DME, Injection Supplies for Vitamin B12: 3cc syringes w/ 27 gauge needles, 1 inch length, Disp: 12 each, Rfl: 0 ??? cholecalciferol (VITAMIN D) 1000 UNIT tablet, Take 1 tablet (1,000 Units) by mouth daily Discontinue Vitamin D 35446, Disp: 100 tablet, Rfl: 3 ??? acetaminophen (TYLENOL) 500 MG tablet, Take 500-1,000 mg by mouth every 8 hours as needed, Disp:, Rfl: ??? Potassium Chloride CR 8 MEQ CPCR, Take 16 mEq by mouth daily NEED APPT WITH DR. OLIVAS FOR REFILLS., Disp: 30 capsule, Rfl: 0 ??? buPROPion (WELLBUTRIN SR) 150 MG 12 hr tablet, Take 300 mg by mouth 2 times daily , Disp: , Rfl: ??? ALPRAZolam (XANAX) 0.5 MG tablet, Take 0.5 mg by mouth At Bedtime , Disp: , Rfl: ??? multivitamin (THERA-PLUS) LIQD, Take 5 mLs by mouth daily., Disp: , Rfl: ??? Carboxymethylcellulose Sodium (REFRESH TEARS OP), Apply to eye., Disp: , Rfl: ??? fluorouracil (EFUDEX) 5 % cream, Apply topically to bilateral forearms and hands twice daily, Disp: 40 g, Rfl: 0 ??? guaiFENesin (MUCINEX) 600 MG 12 hr tablet, Take 600 mg by mouth 2 times daily as needed., Disp: , Rfl: ??? Menthol, Topical Analgesic, (ICY HOT EX), Externally apply topically. Patient uses Gel, Cream and Patch PRN, Disp: , Rfl: ??? Calcium Citrate-Vitamin D (CITRACAL + D PO), Take 1 tablet by mouth 2 times daily., Disp: , Rfl: Allergies: Humira; Ibuprofen sodium; Loratadine; Lyrica; No clinical screening - see comments; Remicade; Demerol; Morphine hcl; Penicillin g; Sulfa drugs; and Tramadol Physical Examination: The patient is a well developed, well nourished female in no apparent distress. She is normocephalic, atraumatic with pupils equally round and reactive to light. Oral Cavity Examination: Normal mucosa with no masses or lesions Nasal Examination: Normal mucosa with no masses or lesions Ear Examination: Ear canals clear, tympanic membranes and middle ear spaces normal Neurological Examination: Facial nerve function intact and symmetric Integumentary Examination: No lesions on the skin of the head and neck Neck Examination: No masses or lesions, no lymphadenopathy Endocrine Examination: Normal thyroid examination Flexible Fiberoptic Laryngoscopy: Normal nasopharynx, base of tongue, valleculae, pyriform sinuses and false vocal cords. 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 There are no lesions or masses in the larynx. Assessment and Plan: The patient presents with a history of hoarseness. The patient will be referred for a speech pathology and speech therapy consultation. She will also gargle water and thoroughly rinse her mouth after each oral inhaler use. CC: Dr. Edison Olivas MUSE[facility] DOC[facility] documented in this encounter Nursing Notes Dylon Zheng LPN - 01/19/2016 1:36 PM CST Chief Complaint Patient presents with ??? Consult Throat pain Dylon Zheng LPN MUSE[facility] DOC[facility] documented in this encounter Plan of Treatment Scheduled Referrals Name Type Priority Associated Diagnoses Order S chedule SPEECH PATHOLOGY REFERRAL Referral Routine Hoarseness Or dered: 01/19/2016 SPEECH THERAPY REFERRAL Referral Routine Hoarseness Orde red: 01/19/2016 documented as of this encounter Procedures Procedure Name Priority Date/Time Associated Diagnosis Comme nts HC LARYNGOSCOPY FLEX Routine 01/19/2016 1:55 PM Hoarseness FIBEROPTIC, DIAGNOSTIC ART [facility]USE[facility] DOC[facility] documented in this encounter Visit Diagnoses Diagnosis Hoarseness - Primary Dysphonia documented in this encounter Additional Health Concerns Assessment Noted Time PHQ-9 Depression Total Score: 14 05/13/2015 7:50 AM CS T documented as of this encounter Care Teams Cashier Host/Hostess Relationship Specialty Start Date End Date Edison Olivas MD PCP - General Family Practice 07/23/14 [address] [facility] [address] [place], [place] [phone] Sheri Casey MD MD Pulmonary Disease 07/23/14 420 [facility] [address] [place], [place] [phone] Alphonso Billy MD MD Cardiology 08/12/14 12/26/17 [address] [place], [place] [phone] Roland Holt MD Resident Student in [facility] 05/12/15 09/24/18 health care education/training program Amita Ryan MD MD Internal Medicine 12/19/15 [address]09 [facility] [id number] [place], [place] [id number] documented as of this encounter
--- OUTSIDE RECORDS SUMMARY | 2021-10-24 11:59 | XMS_ITS | Encounter Summary ---
:1955 Author Organization [facility] Address [address] [place] [address] Care Team Providers Name Role Phone Edison Tam MD Primary Care Provider Sheri Casey MD Unavailable Alphonso Billy MD Unavailable Roland Holt MD Unavailable Amita Ryan MD Unavailable Encounter Details Date Type Department Care Team Description 01/12/2016 Orders Only [facility] Pulmonary SOB (shor tness of breath) Function Testing (Primary Dx) 9 [facility] 3rd [place], [place] [phone] Social History Tobacco Use [...] Procedure Name Priority Date/Time Associated Comments Diagnosis HC PLETHYSMOGRAPHY LUNG Routine 01/12/2016 2:01 SOB (shortness of VOLUMES W/WO AIRWAY PM CDT breath) RESIST HC RESPIRATORY FLOW Routine 01/12/2016 2:01 SOB (shortness of VOLUME LOOP PM CDT breath) HC DIFFUSING CAPACITY Routine 01/12/2016 2:01 SOB (shortness o f PM CDT breath) HC VITAL CAPACITY TOTAL Routine 01/12/2016 2:01 SOB (shortness of PM CDT breath) PFT GENERAL LAB TESTING Routine 01/12/2016 1:19 SOB (shortness of Results for this PM CDT breath) procedure are i n the results section. documented in this encounter Results General PFT Lab (Please always keep checked) (01/12/2016 1:19 PM CDT) P athologist Signature FVC-Pred 2.92 L [facility] FVC-Pre 3.27 L [facility] FVC-%Pred-Pre 111 % [facility] FEV1-Pre 2.67 L [facility] FEV1-%Pred-Pre 115 % [facility] [id number] 79 % [facility] [id number] 82 % [facility] FEFMax-Pred 5.93 L/sec [facility] FEFMax-Pre 5.92 L/sec [facility] FEFMax-%Pred-Pr 99 % [facility] e [id number] 2.13 L/sec [facility] [id number] 2.90 L/sec [facility] HOK2152-%Pred-P 136 % [facility] re ExpTime-Pre 7.25 sec [facility] FIFMax-Pre 3.36 L/sec [facility] VC-Pred 2.99 L [facility] VC-Pre 3.56 L [facility] VC-%Pred-Pre 118 % [facility] IC-Pred 2.18 L [facility] IC-Pre 2.89 L [facility] IC-%Pred-Pre 132 % [facility] ERV-Pred 0.81 L [facility] ERV-Pre 0.67 L [facility] ERV-%Pred-Pre 82 % [facility] [id number]-Tebs 81 % [facility] KOD2UAL5-Cpm 82 % [facility] FRCPleth-Pred 2.59 L [facility] FRCPleth-Pre 2.58 L [facility] FRCPleth-%Pred- 99 % [facility] Pre RVPleth-Pred 1.83 L [facility] RVPleth-Pre 1.91 L [facility] RVPleth-%Pred-P 104 % [facility] re TLCPleth-Pred 4.60 L [facility] TLCPleth-Pre 5.47 L [facility] TLCPleth-%Pred- 118 % [facility] Pre DLCOunc-Pred 20.69 ml/min/mmHg [facility] DLCOunc-Pre 19.95 ml/min/mmHg [facility] DLCOunc-%Pred-P 96 % [facility] re VA-Pre 4.88 L [facility] VA-%Pred-Pre 103 % [facility] [id number] 77 % [facility] NLE6UAL-Kpm 75 % [facility] Specimen (Source) Anatomical Collection Method Collection Time Re ceived Time Location / / Volume Laterality 01/12/2016 1:19 PM CDT Narrative [facility] - 01/25/2016 10:49 AM STRATEGIC BUYER The FVC, FEV1, FEV1/FVC ratio are within normal limits. ??The inspiratory flow rates are within normal limits. ??Lung volumes are within normal limits. ??The diffusing capacity is normal. No change from 11/2014 IMPRESSION: Normal Pulmonary Function. ____Sally Cedillo Amita Ryan MD PFT ORDERABLES Performing Organization Address City/State/ZIP Code Phon e Number [facility] documented in this encounter Visit Diagnoses Diagnosis SOB (shortness of breath) - Primary Shortness of breath documented in this encounter Additional Health Concerns Assessment Noted Time PHQ-9 Depression Total Score: 14 05/13/2015 7:50 AM MILAD T documented as of this encounter Care Teams Steel Pourer Relationship Specialty Start Date End Date Edison Tam MD PCP - General Family Practice 07/23/14 909 [facility] 4 [place] [address] Sheri Casey MD MD Pulmonary Disease 07/23/14 420 [facility] [address] [place] [address] Alphonso Billy MD MD Cardiology 08/12/14 12/26/17 420 [place] [address] Roland Holt MD Resident Student in [facility] 05/12/15 09/24/18 health care education/training program Amita Ryan MD MD Internal Medicine 12/19/[address] [facility] [id number] [place], [place] [id number] documented as of this encounter
--- OUTSIDE RECORDS SUMMARY | 2021-10-24 11:59 | XMS_ITS | Encounter Summary ---
:1955 Author Organization [facility] Address [address] [place] [address] Care Team Providers Name Role Phone Edison Tam MD Primary Care Provider Sheri Casey MD Unavailable Alphonso Billy MD Unavailable Roland Holt MD Unavailable Amita Ryan MD Unavailable Reason for Visit Reason Onset Date Comments Previsit 02/07/2016 Records in [facility] Encounter Details Date Type Department Care Team Description 02/07/2016 PRE VISIT [facility] Flavio Corona, Previsit (Records in [address] [place] [address]) 4th [place] [address] Social History Tobacco Use Types Packs/Day Years Used Date Former Smoker Cigarettes 1 18 11/11/1972 - 0 06/26/1981 Smokeless Tobacco: Former User Q uit: 09/20/1991 Alcohol Use Standard Drinks/Week Comments No 0 (1 standard drink = 0.6 oz pure alcoho l) Sex Assigned at Date Recorded Not on file documented as of this encounter Miscellaneous Notes Telephone Encounter - AliciaColleen - 02/07/2016 9:08 AM CST 1. Date/reason for appt: 02/24/16 - Consult for muscle tension dysphonia 2. Referring provider: Dr. Robert Cadet 3. Call to patient (Yes / No - short description): no, recs in epic 4. 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 LEARNER TUTOR documented in this encounter Plan of Treatment Not on filedocumented as of this encounter Visit Diagnoses Not on filedocumented in this encounter Additional Health Concerns Assessment Noted Time PHQ-9 Depression Total Score: 14 05/13/2015 7:50 AM CS T documented as of this encounter Care Teams Animal Impersonator Relationship Specialty Start Date End Date Edison Tam MD PCP - General Family Practice 07/23/14 909 [facility] [address] [place], [place] [address] Sheri Casey MD MD Pulmonary Disease 07/23/14 420 [facility] 276 [place], [place] [address] Alphonso Billy MD MD Cardiology 08/12/14 12/26/17 420 [place], [place] [address] Roland Holt MD Resident Student in [facility] 05/12/15 09/24/18 health [facility] education/training program Amita Ryan MD MD Internal Medicine 12/19/15 909 [facility] [id number] [place], [place] [id number] documented as of this encounter
--- OUTSIDE RECORDS SUMMARY | 2021-10-24 11:59 | XMS_ITS | Encounter Summary ---
:1955 Author Organization [facility] Address [facility] [place] [address] Care Team Providers Name Role Phone Edison Tam MD Primary Care Provider Sheri Casey MD Unavailable Alphonso Billy MD Unavailable Roland Holt MD Unavailable Amita Ryan MD Unavailable Reason for Visit Reason Onset Date Comments Pre Visit Planning - Done 01/26/2016 60yr old femal e presenting for Cardiac evaluation for chest pressure and dyspnea. Hx of Chrons, carbon monox juan alberto exposure. ENT recommended cardiac eval. Encounter Details Date Type Department Care Team Description 01/26/2016 PRE VISIT [facility] Jose Martin Swartz, Pre Visit Planning - Heart Clinic Frank PARKER Done (60yr old female [address] [facility] [address] [facility] presenting for Cardiac [place], [place] [address] evaluation for chest [phone] [place], [place] pressure and dyspnea. [phone] Hx of Chrons, carbon [phone] (Wo rk) monoxide exposure. ENT recommend ed cardiac eval.) Social History Tobacco Use Types Packs/Day Years [...] documented as of this encounter Care Teams Building Maintenance Technician Relationship Specialty Start Date End Date Edison Tam MD PCP - General Family Practice 07/23/14 [address] [facility] [address] [place], [place] [address] Sheri Casey MD MD Pulmonary Disease 07/23/14 420 [facility] [address] [place], [place] [phone] Alphonso Billy MD MD Cardiology 08/12/14 12/26/17 420 [place], [place] [address] Roland Holt MD Resident Student in [facility] 05/12/15 09/24/18 health [facility] education/training program Amita Ryan MD MD Internal Medicine 12/19/15 909 [facility] [id number] [place], [place] [address] documented as of this encounter
--- OUTSIDE RECORDS SUMMARY | 2021-10-24 11:59 | XMS_ITS | Encounter Summary ---
:1955 Author Organization [facility] Address [address] [place] [id number] Care Team Providers Name Role Phone Edison Olivas MD Primary Care Provider Sheri Casey MD Unavailable Alphonso Billy MD Unavailable Roland Holt MD Unavailable Amita Ryan MD Unavailable Sid Lilly MD Unavailable [phone] Neda Boland RN Unavailable Reason for Referral Mental Health Outpatient - Closed Specialty Diagnoses / Procedures Referred By Contact Refer red To Contact Neuropsychology Diagnoses Cognitive complaints Bushra Clarke APRN [employer]EM[employer] [address] [place], [place] [id number] [place], [place] [address] Referral ID Status Reason Start Date Expiration Date Visits Requ ested Visits Authorized [id number] Closed 02/20/2016 02/19/2017 1 1 CARDIAC Reason for Visit Reason Comments Consult [facility]- MUSCLE WEAKNESS Consultation - Closed Specialty Diagnoses / Procedures Referred By Contact Refer red To Contact Diagnoses Generalized muscle weakness Numbness and tingling of left leg Carbon monoxide exposure Connective tissue disorder (H) 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) Edison Olivas MD [address] [facility] [place] [address] [place], [place] [address] Referral ID Status Reason Start Date Expiration Date Visits Requ ested Visits Authorized [id number] Closed 01/23/2016 01/22/2017 1 1 Encounter Details Date Type Department Care Team Description 02/20/2016 Office Visit [facility] Neurology Bushra Clarke Cognitive complaints (Primar y Dx); [address] [facility] [place], Complaints of leg weakness; 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 [employer] Paresthesia [place], [place] [address] [facility] [id number] [phone] [place] [address] Social History Tobacco Use Types Packs/Day Years [...] Sign Reading Time Taken Comments Blood Pressure 104/66 02/20/2016 10:44 AM RN CARDIAC Pulse 92 02/20/2016 10:44 AM RN CARDIAC Temperature 36.6 ??C (97.8 ??F) 02/20/2016 10:44 AM RN CARDIAC Respiratory Rate 20 02/20/2016 10:44 AM RN CARDIAC Oxygen Saturation 94% 02/20/2016 10:44 AM RN CARDIAC Inhaled Oxygen Concentration - - Weight 61.7 kg (136 lb) 02/20/2016 10:44 AM RN CARDIAC Height 158.8 cm (5' 2.5) 02/20/2016 10:44 AM RN CARDIAC Body Mass Index 24.48 02/20/2016 10:44 AM RN CARDIAC documented in this encounter Patient Instructions Patient InstructionsBushra Clarke, EREN [employer]EM[employer] - 02/20/2016 12:13 PM CST 1. EMG and lumbar MRI 2. Neuro-cognitive study 3. Follow up after CARDIAC documented in this encounter Progress Notes Bushra Clarke APRN CNP - 02/20/2016 11:07 AM CST Re: Maria E Coley Date of : 1955 Date of Visit: 02/20/2016 OUTPATIENT NEUROLOGY VISIT NOTE Chief Complaint: Right lower extremity weakness and cognitive concerns. History of Present Illness Maria E Coley is a 60-year-old right-handed presents to the clinic today for the above mentioned reasons. 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 Two concerns: Reports carbon monoxide poisoning for about three anderson due to boilers malfunction in her apartments. Patient saw Dr Olivas for that. Has been treated at [facility] [place] 08 [place] 2014. Patient filed aclaim against her landlord currently. Patient reports that her memory is poor, breathing and reports cognitive issues. Reports that looking at the words, she does recognizes the words or when looks at the street, she perceives like being on the other side of the street. Reports that the words and sentence does not make sense, words misreading, reports that her IQ is going down. Denies family history of any neuro-cognitive problems. Headache with reading at times. When stops reading headache goes away. Layingdown helps with the headache. Headache about 3 times per week lasting about 20 minutes. Pain in the frontal area and feeling more of the ache. Associated with nausea and light sensitivity. Denies history of migraine headache or any other headaches in the past. No family history of headaches reported. Drinks about 3 cups of coffee per day, wakes up at night, but goes back to sleep. Per reviewed [facility] ED June of 2014 outside records, CARBON MONOXIDE (CO) Carbon Monox 1 ED Course, Medical Decision Making and Disposition: 58 yo F presents with fatigue, chest pain and confusion for the last 5 months. Patient remained hemodynamically stable throughout their stay in the ED. ECG without evidence of acute ischemia. CO level 1, making CO poisoning less likely. Trop normal, lactate negative. CXR without findings. Given constant symptoms for over 5 months, unlikely to represent ACS. TSH WNL. At this point, symptoms not through to be secondary to any emergency life threatening event and not due to CO poisoning. Discharged home with instructions to follow up closely with PCP for further cares and assure CO levels now normal in apartment. Patient discharged home in good condition after all questions were answered. Encouraged the patient to return to the ED should her symptoms worsen. Discussed the plan with the patient, including complications and follow up, and expressed understanding and agreement to the plan. Reports problems in her spine for several years. Reports history of L4-5 laminectomy x2 (2009 and 2006) at [facility] and other outside hospital, by Dr Mcgrath. Reports bilateral pars defect at L5. Today patient reports right LE (not left LE) weakness for about 1.5 years. Right feeling like givingup. Was seen by ortho and did physical therapy which helped a lot. Symptoms getting worse for the past 6 month. Today reports that right foot has been feeling like on fire for about 6 month. Reports color changes in her right foot. Reports history of Raynaud's. Per Dr Lilly's note from 2013, IMPRESSION: ?? 1.?? New onset right leg radicular pain suggestive of L5 nerve root involvement. ?? 2.?? Chronic low back and left leg radicular pain. ?? 3.?? Left greater than right asymmetric disk collapse with left greater than right stenosis, L3-4. ?? 4.?? 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 ?? 5.?? Presumptive left sacroiliac joint pain. ?? 6.?? Multilevel lumbar spondylosis. ? PLAN:?? I had a good discussion with the patient regarding my findings, diagnosis and recommendations.?? Since her symptoms are new since her last MRI, it is very likely that there has been some significant change including the potential disk herniation or slippage or new onset instability in her spine.?? Her left x-rays were taken in 05/2013.?? Given that her symptoms are getting worse instead of better, we agreed to obtain a new lumbar MRI.?? I will review the results and give her a call or send her a letter regarding the results.?? The patient expressed good understanding and agreement. ?? IMPRESSION Impression: ? 1. No significant change in degenerative changes including moderate to left L3-L4 neural foraminal narrowing and multilevel mild spinal canal stenosis since comparison MRI 05/20/2013. Specifically there is no evidence of increased L5 nerve root compression. 2. Interval improvement in likely degenerative endplate changes at L3-L4 since comparison MRI 05/20/2013 3. 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 4. Postoperative changes of L3-L5 laminectomy ?? I have personally reviewed the examination and initial interpretation and I agree with the findings. ?? WAYNE WEATHERS MD Neurodiagnostic Testing CT MRI in 2012 MRI brain without and with contrast MRA of the head without contrast Neck MRA without and with contrast ?? History: ??Left medial occipital lobe hypodensity on CT.. ?? Comparison: ??Head CT on 12/03/2011. ?? Technique: Brain MRI: ??Axial diffusion, FLAIR, T2-weighted, susceptibility, and coronal T1-weighted images were obtained without intravenous contrast. Following intravenous gadolinium-based contrast administration, axial and coronal T1-weighted images were obtained. Head MRA: 3D [id number] MRA of the [place] of [place] was performed without intravenous contrast. Neck MRA: ??Limited non contrast 2DTOF images were obtained of the mid-cervical region. Following intravenous gadolinium-based contrast administration, a contrast enhanced MRA of the neck/cervical vessels was performed. ?? Findings: Brain MRI: Axial diffusion weighted images demonstrate no acute infarct. There is no abnormal T2/FLAIR signal.. There is no intracranial hemorrhage on susceptibility images. Contrast-enhanced images of the brain demonstrate no abnormal intra- or extra-axial enhancement. The mastoid air cells and paranasal sinuses are clear. The orbits, sellar structures and cerebellum within normal limits. ?? Head MRA demonstrates no definite aneurysm or stenosis of the major intracranial arteries. The anterior communicating artery is patent. Regarding the posterior communicating arteries, both are patent. ?? Neck MRA demonstrates patent major cervical arteries. ?? Impression: 1. No evidence of acute infarction or intracranial hemorrhage. Specifically no abnormality in the left medial occipital where there is subtle CT finding. 2. No abnormal enhancing lesions intracranially. 3. Head MRA demonstrates no definite aneurysm or stenosis of the major intracranial arteries. 4. Neck MRA demonstrates patent major cervical arteries. ? I have personally reviewed the image and initial interpretation and agree with the findings. Lab Results for MARIA E COLEY ( ) as of 02/20/2016 11:14 Ref. Range 12/19/2015 16:12 Sodium Latest Ref Range: 133-144 mmol/L 139 Potassium Latest Ref Range: 3.4-5.3 mmol/L 4.1 Chloride Latest Ref Range: 94-109 mmol/L 106 Carbon Dioxide Latest Ref Range: 20-32 mmol/L 25 Urea Nitrogen Latest Ref Range: 7-30 mg/dL 13 Creatinine Latest Ref Range: 0.52-1.04 mg/dL 0.85 GFR Estimate Latest Ref Range: >60 mL/min/1.7m2 68 GFR Estimate If Black Latest Ref Range: >60 mL/min/1.7m2 83 Calcium Latest Ref Range: 8.5-10.1 mg/dL 8.8 Anion Gap Latest Ref Range: 3-14 mmol/L 8 Albumin Latest Ref Range: 3.4-5.0 g/dL 3.8 Protein Total Latest Ref Range: 6.8-8.8 g/dL 6.9 Bilirubin Total Latest Ref Range: 0.2-1.3 mg/dL 0.3 Alkaline Phosphatase Latest Ref Range: 40-150 U/L 64 ALT Latest Ref Range: 0-50 U/L 29 AST Latest Ref Range: 0-45 U/L 16 Hemoglobin A1C Latest Ref Range: 4.3-6.0 % 5.9 CRP Inflammation Latest Ref Range: 0.0-8.0 mg/L <2.9 TSH Latest Ref Range: 0.40-4.00 mU/L 0.93 Past Medical History reviewed and verified with the patient Past Medical History Diagnosis Date ??? Crohn's [...] ??? Anemia Result of CO poisoning and prison prednisone use? History of blood transfusion N/A ??? Personal history of colonic polyps N/A ??? Genital problems fistulas in genital area getting bigger, mass on overy ??? Other bladder disorder mass on my right? kidney ??? Fracture yes, but not recently ??? Head injury 2011 tumbled down a [...] mass on my right kidney Past Surgical History reviewed and verified with the patient Past Surgical History Procedure Laterality Date ??? [...] Left Index Finger Digital Nerve Repair with Viji mcdowell; Surgeon: Marisol Hathaway MD; Location: [facility] ??? Biopsy yes ??? Patient Transition Specialist surgery mass on remaining ovary ??? Ent surgery september 2015 I seem to have developed a chronic sore throat Family History reviewed and verified with the patient Older sister has MS, was diagnosed in her late 20s Social History Substance Use Topics ??? Smoking status: Former Smoker -- 1.00 packs/day for 18 years Types: Cigarettes Start date: 11/11/1972 Quit date: 06/26/1981 ??? Smokeless tobacco: Former User Quit date: 09/20/1991 ??? Alcohol Use: No reviewed and verified with the patient Current Outpatient Prescriptions Medication Sig Dispense Refill ??? rOPINIRole (REQUIP) 1 MG tablet Take 1 tablet (1 mg) by mouth At Bedtime May take 1/2 tab additional prn once daily. 90 tablet 3 ??? cyanocobalamin (VITAMIN B12) 1000 MCG/ML injection Inject 1 mL (1,000 mcg) into the muscle every30 days 1 mL 11 ??? blood glucose monitoring (NO BRAND SPECIFIED) test strip Use to test blood sugars one times daily or as directed 100 each 3 ??? predniSONE (DELTASONE) 5 MG tablet (total daily dose 7 mg/day) 90 tablet 3 ??? Levothyroxine Sodium 50 MCG CAPS Take 1 tablet by mouth daily 90 capsule 2 ??? venlafaxine (EFFEXOR-ER) 150 MG TB24 150 mg ??? propranolol (INDERAL) 10 MG tablet Take 1 tablet (10 mg) by mouth daily 90 tablet 3 ??? predniSONE (DELTASONE) 1 MG tablet Take 2 tablets (2 mg) by mouth daily With the 5mg tab for total of 7mg daily. 180 tablet 3 ??? ORDER FOR DME, SET TO LOCAL PRINT, Equipment being ordered: portable Oxygen with nasal cannula at 1-2 liters 1 Can 3 ??? L-Lysine 500 MG TABS Take 1 tablet by mouth daily ??? ORDER FOR DME Injection Supplies for Vitamin B12: 3cc syringes w/ 27 gauge needles, 1 inch length 12 each 0 ??? cholecalciferol (VITAMIN D) 1000 UNIT tablet Take 1 tablet (1,000 Units) by mouth daily Discontinue Vitamin D 25592 100 tablet 3 ??? acetaminophen (TYLENOL) 500 MG tablet Take 500-1,000 mg by mouth every 8 hours as needed ??? Potassium Chloride CR 8 MEQ CPCR Take 16 mEq by mouth daily NEED APPT WITH DR. OLIVAS FOR REFILLS. 30 capsule 0 ??? buPROPion (WELLBUTRIN SR) 150 MG 12 hr tablet Take 300 mg by mouth every morning ??? ALPRAZolam (XANAX) 0.5 MG tablet Take 0.5 mg by mouth At Bedtime ??? multivitamin (THERA-PLUS) LIQD Take 5 mLs [...] 1 tablet by mouth 2 times daily. reviewed and verified with the patient Review of Systems: A 12-point ROS including constitutional, eyes, ENT, respiratory, cardiovascular, gastroenterology, genitourinary, integumentary, musculoskeletal, neurology, hematology and psychiatric were all reviewedwith the patient and completed at the [facility] Question nary and as mentioned in the HPI. General Exam: BP 104/66 mmHg Pulse 92 Temp(Src) 97.8 ??F (36.6 ??C) (Oral) Resp 20 Ht 1.588 m (5' 2.5) Wt 61.689 kg (136 lb) BMI 24.46 kg/m2 SpO2 94% ? No GEN: Awake, NAD; good eye contact, responses appropriately HEENT: Head atraumatic/Normocephalic. Scalp normal. Pupils equally round, 4 mm, reactive to light and accommodation, sclera and conjunctiva normal. Fundoscopic examination reveals normal vessels no papilledema. Neck: Easily moveable without resistance Heart: S1/S2 appreciated, RRR, no m/r/g, no carotid bruits Lungs:Lungs are clear to auscultation bilaterally, no wheezes or crackles. Neurological Examination: The patient is alert and oriented times four. Has good attention and concentration. Speech is fluentwithout dysarthria. Cranial nerves: CN I deferred. CN II: Intact and full visual sainz to confrontation bilaterally.CN III, IV, : EOM intact. There is no nystagmus. Has conjugated gaze. Intact direct and consensual pupillary light reflexes. CN V: Intact and symmetrical to facial sensation in the V1 through V3 bilaterally. CN VII: Intact and symmetrical eyebrow and lid raise and eyelid closure, smiles and frown. CN VIII: Intact to finger rub bilaterally. CN IX and X: The palates elevates symmetrical. The uvula is midline. CN XII: The tongue protrudes midline with no atrophy or fasciculations. Motor exam: The patient has a normal bulk and tone throughout. There is no atrophy, fasciculations, clonus, or abnormal movements appreciated. Strength Exam: 5/5 strength at shoulder abduction, elbow flexion or extension, wrist flexion or extension, finger abduction, executive receptionist, hip flexion and extension, knee flexion and extension, and dorsiflexion and plantarflexion bilaterally. Right dorsiflexion appears weaker. Sensation is intact to light touch and pinprick throughout. Has good vibration left and unable to perceive vibration at the right great toe, intact bilateral malleolus. Reflexes are 2+ and symmetrical at biceps, triceps, brachioradialis, 3+ patellar, and 2+ left and 0/4 right Achilles. Toes cold and discoloration bilaterally. Negative Babinski with downgoing toes bilaterally. Coordination reveals oszkpu-hgoz-gqxhic, rapid alternating movements, finger tapping, and toe tapping with normal speed and accuracy. Gait is cautious, does not use hands with walking. Difficulties on the toes, heels, and tandem walk.Has no drift and a negative Romberg. Pedro's negative DATA: Results for MARIA E COLEY ( ) as of 02/20/2016 11:14 Ref. Range 08/09/2014 12:05 08/27/2014 10:49 05/12/2015 13:18 Carbon Monoxide Latest Ref Range: 0-2 % 2.6 (H) 0.4 0.3 Assessment and Plan: Right leg weakness feeling. History of lumbar surgeries in the past. Has seen Dr Lilly and had lumbar MRI in 2013. Reflexes are brisk except right Achilles and decreased vibration. Reports baalnce problems. Family history of MS. Patient had brain MRI in 2011. History of partial illeum resection andvitamin B12 deficiency. Last vitamin B12 level in 2013. Patient has been taking B12 injections monthly. Perceived cognitive concerns and headache. Patient reports carbon oxide exposure for about 3 years. Was seen at [facility], work up completed, reviewed via [facility], CO level 1, was elevated on 08/09/2014 and normal since then. Patient is currently filed a claim against her landlord for medical expenses. Plan: 1. Neuro-cognitive study for cognitive complaints 2. EMG and lumbar MRI for right lower extremity and history of lumbar surgeries. If EMG and lumbar MRI do not explain patient's symptoms, would recommend cervical MRI for possible demyelinating processor other etiology evaluation. 3. Follow up after the tests I discussed all my recommendation with Maria E Coley. The patient verbalizes understanding and comfortable with the plan. The patient has our clinic phone number to call with any questions or concerns. All of the patient's questions were answered from the best of my current knowledge. Thank you for letting me be a part of the treatment team for Maria E Coley Time spent with pt answering questions, discussing findings, counseling and coordinating care was more than 50% the appointment time, 60 minutes. Bushra Clarke APRN, [employer]EM[employer] [facility] Answers for HPI/ROS submitted by the patient on 02/13/2016 General Symptoms: Yes Skin Symptoms: Yes HENT Symptoms: Yes EYE SYMPTOMS: Yes HEART SYMPTOMS: No LUNG SYMPTOMS: Yes INTESTINAL SYMPTOMS: No URINARY SYMPTOMS: No GYNECOLOGIC SYMPTOMS: No BREAST SYMPTOMS: No SKELETAL SYMPTOMS: No BLOOD SYMPTOMS: No NERVOUS SYSTEM SYMPTOMS: Yes MENTAL HEALTH SYMPTOMS: No Fever: No Loss of appetite: No Weight loss: No Weight gain: No Fatigue: Yes Night sweats: No Chills: No Increased stress: No Excessive hunger: No Excessive thirst: No Feeling hot or cold when others believe the temperature is normal: No Loss of height: No Post-operative complications: No Surgical site pain: No Hallucinations: No Change in or Loss of Energy: Yes Hyperactivity: No Confusion: Yes Changes in hair: No Changes in moles/ rose: No Itching: No Rashes: No Changes in nails: No Acne: No Hair in places you don't want it: No Change in facial hair: No Warts: No Non-healing sores: No Scarring: No Flaking of skin: Yes Color changes of hands/feet in cold : Yes Sun sensitivity: Yes Skin thickening: Yes Ear pain: No Ear discharge: No Hearing loss: No Tinnitus: No Nosebleeds: No Congestion: Yes Sinus pain: Yes Trouble swallowing: Yes Voice hoarseness: Yes Mouth sores: Yes Sore throat: Yes Tooth pain: Yes Gum tenderness: Yes Bleeding gums: Yes Change in taste: No Change in sense of smell: Yes Dry mouth: Yes Hearing aid used: No Neck lump: No Eye pain: No Vision loss: No Dry eyes: Yes Watery eyes: No Eye bulging: No Double vision: No Flashing of lights: No Spots: No Floaters: No Redness: No Crossed eyes: No Tunnel Vision: No Yellowing of eyes: No Eye irritation: Yes Cough: Yes Sputum or phlegm: Yes Coughing up blood: No Difficulty breating or shortness of breath: Yes Snoring: No Wheezing: No Difficulty breathing on exertion: Yes Respiratory pain: Yes Nighttime Cough: Yes Difficulty breathing when lying flat: Yes Trouble with coordination: Yes Dizziness or trouble with balance: Yes Fainting or black-out spells: No Memory loss: Yes Headache: Yes Seizures: No Speech problems: No Tingling: No Tremor: No Weakness: Yes Difficulty walking: No Paralysis: No Numbness: Yes EMG and lumbar MRI results reviewed. Follow up to discuss recommended. Interpretation: ?? Mild and non-diagnostic EMG abnormalities. See comment. ?? Comment: Increased insertional activity at the right medial gastrocnemius and some polyphasic motor units at the right gluteus michael are non-specific findings. A mild right S1 radiculopathy cannot beexcluded. ?? EMG Physician: ?? Jaden Jesus MD ? MR LUMBAR SPINE W/O CONTRAST 03/13/2016 3:34 PM ?? History: Paresthesia of skin, Other symptoms and signs involving the musculoskeletal system ?? Comparison: MRI lumbar spine 01/27/2014 ?? Technique: Sagittal T1-weighted, sagittal T2-weighted, sagittal STIR, sagittal diffusion-weighted, axial T2-weighted, and axial gradient echo images of the lumbar spine were obtained without the administration of intravenous contrast. ?? Findings: Regarding numbering convention, using the complete spine esl instructional assistant images, there are 5 lumbar type vertebrae with a lumbarized S1. Notably, this convention differs from that used on the comparison examination report from 01/27/2014. Using this convention, the tip of the conus medullaris is at L1-2. Regarding alignment, the lumbar vertebral column appears normally aligned. Laminectomies from L4-S1. Atrophy of the erector spinae musculature in the surgical bed. Mild lumbar subcutaneous edema. Severe loss of disc height at L5-S1. Moderate loss of disc height at L4-5. Mild loss of disc height at L3-4. ?? On a level by level basis: ?? T12-L1: Central disc protrusion with mild spinal canal narrowing. No neural foraminal stenosis. ?? L1-2: Left central and subarticular disc extrusion migrating cephalad, worsened since the protrusion on 01/27/2014. The extruded disc displaces the left L1 nerve root and contributes to mild spinal canal narrowing. No neural foraminal stenosis. ?? L2-3: Disc bulge asymmetric to the right with partial effacement of the right lateral recess. Bilateral facet hypertrophy. Mild spinal canal narrowing. Mild right neural foraminal narrowing. No left neural foraminal stenosis. ?? L3-4: Posterior disc bulge with superimposed left subarticular and foraminal disc protrusion with effacement of the left lateral recess and mild spinal canal narrowing. Moderate left neural foraminal narrowing. Mild right neural foraminal narrowing. Spinal canal narrowing has worsened since 2014. ?? L4-5: Laminectomy defects. Bilateral facet hypertrophy. Posterior disc osteophyte complex partially effacing both lateral recesses and mild spinal canal narrowing. Moderate right and severe left neural foraminal stenosis, unchanged. Persistent impingement on the exiting left L4 nerve root. ?? L5-S1: Laminectomy defects. Bilateral facet hypertrophy. Circumferential disc osteophyte complex. No spinal canal stenosis. Mild bilateral neural foraminal narrowing. ?? 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 Bilateral facet hypertrophy. Mild bilateral neural foraminal narrowing, unchanged. No spinal canal stenosis. ? Impression: 1. From the complete spine esl instructional assistant images, there is a lumbarized S1 vertebral body. Notably, this numbering convention differs from that used on the prior MRI examination. 2. Laminectomies from L4-S1. 3. Multilevel lumbar degenerative changes. Disc extrusion at L1-2 has progressed from a protrusion on 01/27/2014, now contributing to mild spinal canal narrowing and displacing the left L1 nerve root. 4. Unchanged severe left neural foraminal stenosis with impingement on the exiting left L4 nerve root. 5. Moderate neural foraminal narrowing on the left at L3-4 and on the right at L4-5. ?? ELDER LEO MD documented in this encounter Nursing Notes Jerome Arellano CMA - 02/20/2016 10:44 AM CST Chief Complaint Patient presents with ??? Consult [facility]- MUSCLE WEAKNESS CARDIAC documented in this encounter Plan of Treatment Scheduled Referrals Name Type Priority Associated Diagnoses Order S chedule NEUROPSYCHOLOGY REFERRAL Referral Routine Cognitive compla ints Ordered: 02/20/2016 documented as of this encounter Visit Diagnoses Diagnosis Cognitive complaints - Primary Other signs and symptoms involving cogni tion Complaints of leg weakness Other musculoskeletal symptoms referable to limbs Paresthesia Disturbance of skin sensation documented in this encounter Additional Health Concerns Assessment Noted Time PHQ-9 Depression Total Score: 14 05/13/2015 7:50 AM CS T documented as of this encounter Care Teams Horse Breaker Relationship Specialty Start Date End Date Edison Olivas, PCP - General Family Practice 07/23/[address] [place] [address] [address] [place] [address] Sheri Casey MD Pulmonary Disease 07/23/[address] [place] [address] [facility] [address] [place], [place] [id number] Alphonso Billy MD Cardiology 08/12/[address] [place] [address] [id number] Roland Holt MD Resident Student in [facility] 05/12/15 09/24/18 [facility] education/training program Amita yRan MD MD Internal Medicine 12/19/[address] [place] [address] [id number] [place], [place] [address] Sid Lilly MD Orthopaedic Surgery 02/22/16 MD Alivia [facility] [id number] [place] [address] Neda Boland, NANDINI Nurse Coordinator Neurology 02/23/16 09/01/18 documented as of this encounter
--- OUTSIDE RECORDS SUMMARY | 2021-10-24 11:59 | XMS_ITS | Encounter Summary ---
:1955 Author Organization [place] Address [address] [place] [address] Care Team Providers Name Role Phone Edison Tam MD Primary Care Provider Sheri Casey MD Unavailable Alphonso Billy MD Unavailable Roland Holt MD Unavailable Amita Ryan MD Unavailable Sid Lilly MD Unavailable [phone] Neda Boland RN Unavailable Reason for Visit Reason Onset Date Comments Refill Request 05/09/2016 Levothyroxine Sodium 50 MCG CAPS Encounter Details Date Type Department Care Team Description 05/09/2016 Refill M [facility] Primary Care Edison Tam efill Request Clinic MD Marcia (Levothyroxine Sodium 50 909 [facility] SE [address] [facility] [place] MCG CAPS) 4th Floor 4 [place] [address] [phone] (Wo rk) Social History Tobacco Use Types [...] Telephone Encounter - Ainsley Clarke RN - 05/09/2016 11:37 AM CST Levothyroxine Sodium 50 MCG CAPS Last Written Prescription Date: 08/30/15 Last Fill Quantity: 90, # refills: 2 Last Office Visit with [facility] or [facility] prescribing provider: 12/19/15 Future Office visit: None TSH Date Value Ref Range Status 12/19/2015 0.93 0.40 - 4.00 mU/L Final ] & PRESIDENT documented in this encounter Plan of Treatment Not on filedocumented as of this encounter Visit Diagnoses Diagnosis Yossi's thyroiditis Chronic lymphocytic thyroiditis documented in this encounter Additional Health Concerns Assessment Noted Time PHQ-9 Depression Total Score: 14 05/13/2015 7:50 AM CS T documented as of this encounter Care Teams Data Warehousing Manager Relationship Specialty Start Date End Date Edison Tam, PCP - General Family Practice 07/23/[address] [place] [address] [address] [place] [address] Sheri Casey MD Pulmonary Disease 07/23/[address] [place] [address] [facility] [address] [place], [place] [phone] Alphonso Billy MD Cardiology 08/12/[address] [place] [id number] Roland Holt MD Resident Student in [facility] 05/12/15 09/24/18 [facility] education/training program Amita Ryan MD MD Internal Medicine 12/19/[address] [place] [address] [id number] [place], [place] [id number] Sid Lilly MD Orthopaedic Surgery 02/22/16 MD Alivia [facility] [address] [address] Neda Boland, RN Nurse Coordinator Neurology 02/23/16 09/01/18 documented as of this encounter
--- OUTSIDE RECORDS SUMMARY | 2021-10-24 11:59 | XMS_ITS | Encounter Summary ---
:1955 Author Organization [place] Address [address] [place] [address] Care Team Providers Name Role Phone Edison Tam MD Primary Care Provider Sheri Casey MD Unavailable Alphonso Billy MD Unavailable Roland Holt MD Unavailable Amita Ryan MD Unavailable Sid Lilly MD Unavailable [phone] Nead Boland RN Unavailable Encounter Details Date Type Department Care Team Description 02/24/2016 [facility] Flavio Corona, Muscle tension dysphonia (Pr imary Dx); 909 [facility] WAREHOUSE SUPERVISOR 3RD SHIFT Dyspnea on exertion 4th [place] [address] Social History Tobacco Use Types Packs/Day Years Used Date Former Smoker Cigarettes 1 18 11/11/1972 - 0 06/26/1981 Smokeless Tobacco: Former User Q uit: 09/20/1991 Alcohol Use Standard Drinks/Week Comments No 0 (1 standard drink = 0.6 oz pure alcoho l) Sex Assigned at Date Recorded Not on file documented as of this encounter Progress Notes Flavio Corona, WAREHOUSE SUPERVISOR 3RD SHIFT - 02/24/2016 12:55 PM CST Images from the original note were not included. [facility] VOICE [facility] Aly Parikh Jr., M.D., F.A.C.S. Nathalia Lester M.D., M.P.H. Dipti Valente, Ph.D., [facility]/WAREHOUSE SUPERVISOR 3RD SHIFT Norma Meredith M.M. (voice), M.Anayeli., [facility]/WAREHOUSE SUPERVISOR 3RD SHIFT Flavio Corona M.M. (voice), MVarun., [facility]/WAREHOUSE SUPERVISOR 3RD SHIFT [facility] VOICE [facility] INITIAL EVALUATION AND LARYNGEAL EXAMINATION REPORT Patient: Maria E Coley Date of Visit: 02/24/2016 CHIEF COMPLAINT: Breathing, Voice, Swallowing HISTORY PATIENT INFORMATION Maria E Coley was seen for initial voice evaluation, laryngeal examination and treatment today. She was seen at the kind referral of Dr. Robert Dia. Please refer to the physician's dictation for a more complete history and impressions. DIAGNOSIS/REASON FOR REFERRAL Muscle Tension Dysphonia/ Evaluate, perform laryngeal exam, treat as appropriate HISTORY OF VOICE DISORDER Ms. Coley is a 60 year old woman with a complex medical history including parminder's thyroiditis, and Crohn's disease. Salient details of her history are as follows: ??? Symptoms began in 2014 following progressive low level carbon monoxide exposure which culminatedin passing out in June of that year ??? After that point she noted a light dry cough and shortness of breath ??? Symptoms progressed over time to include hoarseness, shortness of breath, and difficulty swallowing ??? She was recently seen by Dr. Robert dia who diagnosed her with Muscle Tension Dysphonia and recommended her to our care. ??? She reports that her Crohn's disease is well managed CURRENT SYMPTOMS INCLUDE: VOICE ?? Increased vocal effort ?? Poor voice quality with intermittent breaks ?? Worse with use and stress ?? Describes voice as hoarse ?? Loss of higher range ?? Projected speech quickly fatigues and degrades quality COUGH/AIRWAY ??? Dry cough persists since initial presentation in 2014 ??? Increasing in frequency ??? Occasionally it seems that it is related to talking, other times it strikes out of nowhere BREATHING ?? Intermittent shortness of breath with exertion. ?? This is accompanied by significant tightness at the level of the sternum ?? The same activity may or may not yield dyspnea ?? Pulmonology recommended the use albuterol. This was trialed over the course of a week without benefit ?? Symptoms subside in about 30 minutes with cessation of activity ?? Sensation of tightness decreases with distraction (watching TV) SWALLOWING ?? Takes more effort with thick liquids (like a smoothie) ?? Happens intermittently but with increasing frequency (daily at this point) ?? No difficulty with solids and thin liquids ?? No weightloss ?? No PNA ADDITIONAL ?? Sensation of tightness just caudal to the larynx ?? Intermittent sore throat ?? These symptoms are not consistently tied to previously mentioned symptoms OTHER PERTINENT HISTORY ??? Complex medical history: Past Medical History Diagnosis Date ??? Crohn's [...] neoplasm (H) hand skin cancer (left) ??? Parminder's disease ??? Vision disorder dry eyes ??? Anemia Result of CO poisoning and rat exterminator prednisone use? History of blood transfusion N/A [...] Kidney problem mass on my right kidney OBJECTIVE FINDINGS Patient Supplied Answers To Last 2 VHI Questionnaires Voice Handicap Index (VHI-10) 02/22/2016 How often do you have any of the following symptoms: Indigestion, heartburn, chest pain, stomach acid coming up, and/or tasting acid in your mouth or throat? Daily (F1) My voice makes it difficult for people to hear me. Sometimes (F2) People have difficulty understanding me in a noisy room. Sometimes (F8) My voice difficulties restrict my personal and social life. Almost always (F9) I feel left out of conversations because of my voice. Almost never (F10) My voice problem causes me to lose income. Never (P5) I feel as though I have to strain to produce voice. Almost always (P6) The clarity of my voice is unpredictable. Always (E4) My voice problem upsets me. Sometimes (E6) My voice makes me feel handicapped. Never (P3) People ask, What's wrong with your voice? Almost never VHI Total Score 18 Last 2 Scores for Patient-Answered VHI Questionnaire VHI Total Score 02/22/2016 VHI Total Score 18 VOICE AND SPEECH EVALUATION An evaluation of the voice and breathing was accomplished and audio recorded today; salient featuresare as follows: ?? Breathing pattern: during conversational speech shallow and phonation is not coordinated with respiration ?? Tension is evident: neck VOICE: ?? Mild to moderate, Intermittent breathiness ?? Mild, Intermittent roughness ?? Mild, Intermittent strain ?? Habitual pitch is judged to be slightly elevated at B3-F4 ?? Intensity: ?? Conversational speech - informally judged to be WNL for the setting ?? Projected speech - modest increase in intensity with significant increase in roughness ?? Sustained phonation: Sustained phonation resulted in decreased roughness and breathiness ?? /a/ - Bb3 ?? /i/ - D4 ?? Pitch [place] task ?? Low pitch - A3 ?? High pitch - F5 ?? No marked breaks. Patient demonstrated difficulty accessing low modal register ?? Singing vs. Speech - consistent between contexts ?? She states today her voice is more hoarse than normal ?? She rates her effort as 4 out of 10 (10 is maximum effort) for speech; 3 out of 10 for singing ?? She rates overall voice quality as 5 out of 10 (10 being worst) ?? GLOBAL ASSESSMENT OF DYSPHONIA: ?? CAPE-V Overall Severity: COUGH/AIRWAY: ?? Occasional ?? Increased in conjunction with voice use ?? Dry ?? Locus of cough/ throat clear: sounds consistent with upper airway ?? Severity: mild LARYNGEAL EXAMINATION Tyron Corona M.M., M.A., CCC/WAREHOUSE SUPERVISOR 3RD SHIFT accomplished the endoscopic laryngeal examination today. Verbal consent was obtained and witnessed prior to this procedure. A time-out was performed, verifying patient, procedure, and site. Type of exam: Procedure: Flexible endoscopy with chip-tip technology with stroboscopy, right nostril; topical anesthesia with 3% Lidocaine and 0.25% phenylephrine was applied. This exam shows: ??? Essentially healthy laryngeal mucosa ??? Signs of reflux: no remarkable signs of reflux ??? Secretions: No significant presence of thickened secretions on the vocal folds and throughout the laryngeal area ??? Vocal fold mucosa: Vocal folds have slightly concave vibratory margins bilaterally with capacious ventricles, otherwise within normal limits, with no lesions ??? Vocal fold function: Vocal folds are mobile and meet at midline ??? Movement is brisk and symmetric ??? Exam is neurologically normal ??? Airway is adequate ??? Paradoxical motion with inspiratory noise was noted when patient proceeded form laughing to voicing ??? elongation of the vocal folds for pitch increase is normal ??? fatigue is evident with repeated adductory and adductory motion ??? Slight fast tremor of the laryngeal area is evident during rest ??? Mild four-way constriction of the supraglottic larynx during connected speech ??? Therapy probes show improved glottic adduction with light glottic coup and improved respiratory phonatory coordination on forward resonant stimuli ??? The addition of stroboscopy provided the following information: o Amplitude: increased bilaterally o Mucosal Wave: increased bilaterally o Glottic closure: Spindle shaped glottal gap at modal pitches, Complete at elevated pitches o Symmetry: Intermittent asymmetry o Periodicity: reduced periodicity with lower pitch Concave vibratory margins with capacious ventricles Supraglottic hyperfunction during running speech Inspiratory stridor Increased amplitude and open phase predominates I reviewed this laryngeal exam with Ms. Coley today, and I provided pertinent explanations, as well as written and oral information. THERAPEUTIC ACTIVITIES Today Ms. Coley participated in the following therapeutic activities: ?? Asked many questions about the nature of her symptoms, and I answered all of these thoroughly. Instructed concepts and techniques for optimal vocal hygiene including: ?? Systemic hydration, including strategies for increasing daily water intake ?? Topical hydration - Gargling, saline nasal irrigation, humidification, steam, guaifenesin ?? Environmental barriers to healthy voicing - noise, inhaled irritants, room acoustics ?? Use of electronic amplification to reduce vocal fold impact ?? Awareness and reduction of phonotraumatic behaviors ?? Moderating voice use ?? Substituting non-voice alternative behaviors ?? Avoiding cough and throat clearing Exercises to promote optimal respiratory mechanics ?? I provided explanation of the anatomy and physiology of respiration for speech and singing; she found this to be helpful ?? she demonstrated excessive upper thoracic engagement during inhalation ?? Practiced in a forward leaning seated posture, with tactile cue of a hand on the low rib-cage to facilitate awareness of low respiratory engagement ?? With clinician support, patient was able to demonstrate improved abdominal relaxation and engagement on inhalation ?? Optimal exhalation using inward engagement of the abdominal wall with no corresponding collapse of the upper chest cavity was trained using the pulsed sh task ?? Rescue breathing strategies using oral configurations to promote improved vocal fold abduction were instructed ?? Patient reported pursed lip breathing was most beneficial ?? Patient was able to demonstrate use of these techniques in combination with low respiratory engagement with >80% accuracy and no clinician support ?? A plan for when and how to implement these strategies was developed, and the patient was encouraged to practice the techniques independent of distress two times daily to habituate their use. Exercises to promote improved glottic efficiency ?? Semi-Occluded Vocal Tract (SOVT) exercises utilizied ?? Straw with water resistance was found to be most facilitating ?? Advanced to /w/ phoneme to promote forward locus of resonance ?? 75% accuracy with minimal clinician support ?? Trained as a modified version of vocal function exercises ranging from C4-G4 ?? Maximum duration ranged from 12-21 seconds ?? Patient was able to demonstrate all exercises independently ?? Emphasis on ease, forward resonance, and consistency over duration ?? Concepts of an optimal regimen for practice were instructed. ?? She should use an interval schedule of practice, with brief periods of practice frequently throughout each day ?? [place] concepts of volitional practice to facilitate motor learning. ?? I provided an audio recording and handouts of today's therapeutic activities to facilitate practice. IMPRESSIONS/ RECOMMENDATIONS/ PLAN IMPRESSIONS / RECOMMENDATIONS Based on today's evaluation and laryngeal examination, it appears that: ?? Dysphonia is accounted for by the poor glottic closure, and resulting poor vocal fold entrainment ?? Dysphonia/discomfort is compounded by the imbalanced function of the intrinsic and extrinsic laryngeal musculature ?? Respiratory symptoms may be influenced by laryngeal mechanics as evidenced by spontaneous inspiratory stridor during evaluation. ?? A course of speech therapy is recommended to improve voice quality, promote reduced discomfort, effort and fatigue, and improve respiratory mechanics to allow full engagement in activities of daily living ?? She is entirely amenable to this plan ?? We began therapy today, working on strategies to improve laryngeal health, optimize respiratory mechanics, and promote glottal efficiency TREATMENT PLAN Speech therapy DURATION/FREQUENCY OF TREATMENT Two weekly and four bi-weekly, one-hour sessions, with two monthly one-hour follow-up sessions PROGNOSIS Good prognosis for voice improvement with speech therapy and regular practice of therapeutic activities. BARRIERS TO LEARNING/TEACHING AND LEARNING NEEDS None/Unremarkable GOALS Patient goal: 1. To improve and maintain a healthy voice quality 2. To understand the problem and fix it as much as possible 3. To breathe normally and comfortably in all situations Short-term goal(s): Within the first 4 sessions, Ms. Coley: 1. will be able to independently list coronel factors in maintenance of good vocal hygiene with 80% accuracy, and report on their use outside the therapy room. 2. will utilize silent inhalation with good low-respiratory engagement 75% of the time during therapy tasks with minimal clinician support 3. will demonstrate semi-occluded vocal tract (SOVT) exercises with at least 80% accuracy with no clinician support 4. Will initiate laryngeal manual therapy to reduce luisa-laryngeal tension Long-term goal(s): In 6 months, Ms. Coley will: 1. Report a week of typical vocal activities, in which dysphonia and dyspnea do not exceed a level of 2 out of 10, 80% of the time PRIMARY ICD-10 code: R49.0 (Dysphonia) SECONDARY ICD-10 code: R06.09 (Dyspnea On Exertion) TOTAL SERVICE TIME: 120 minutes EVALUATION OF VOICE AND RESONANCE: (08023): 45 minutes TREATMENT (43718): 45 minutes ENDOSCOPIC LARYNGEAL EXAMINATION WITH STROBOSCOPY (67349): 30 minutes NO CHARGE FACILITY FEE (64215) Tyron Corona M.M., M.A., [facility]-WAREHOUSE SUPERVISOR 3RD SHIFT Speech-Language Pathologist Certificate of Vocology [phone] SPLICER documented in this encounter Plan of Treatment Not on filedocumented as of this encounter Procedures Procedure Name Priority Date/Time Associated Diagnosis Comme nts [facility] & Routine 02/24/2016 4:15 PM Muscle tension QUALITATIVE ANALYSIS FILM SPLICER dysphonia VOICE AND RESONANCE Dyspnea on exertion [facility] SPEECH/HEARING Routine 02/24/2016 4:15 PM Muscle tension THERAPY, INDIVIDUAL FILM SPLICER dysphonia Dyspnea on exertion HC LARYNGOSCOPY Routine 02/24/2016 4:15 PM Muscle tension FLEX/RIGID W STROBOSCOPY FILM SPLICER dysphon ia Dyspnea on exertion IMAGESTREAM RECORDING Routine 02/24/2016 1:54 PM Muscle tensio n ORDER FILM SPLICER dysphonia Dyspnea on exertion documented in this encounter Results IMAGESTREAM RECORDING ORDER (02/24/2016 1:54 PM FILM SPLICER) Specimen (Source) Anatomical Collection Method Collection Time Re ceived Time Location / / Volume Laterality 02/24/2016 1:54 PM FILM SPLICER Flavio Corona WAREHOUSE SUPERVISOR 3RD SHIFT OTHER Performing Organization Address City/State/ZIP Code Phon e Number RADIOLOGY RESULTS documented in this encounter Visit Diagnoses Diagnosis Muscle tension dysphonia - Primary Dysphonia Dyspnea on exertion Other dyspnea and respiratory abnormalit y documented in this encounter Additional Health Concerns Assessment Noted Time PHQ-9 Depression Total Score: 14 05/13/2015 7:50 AM CS T documented as of this encounter Care Teams Environmental Sustainability Manager Relationship Specialty Start Date End Date Edison Tam, PCP - General Family Practice 07/23/[address] [place] [address] 4 [place], [place] [phone] Sheri Casey MD Pulmonary Disease 07/23/[address] [place] [address] 276 [place], [place] [id number] Alphonso Billy MD Cardiology 08/12/[address] [place] [id number] Roland Holt MD Resident Student in [facility] 05/12/15 09/24/18 [place] [phone] (Fax) education/training program Amita Ryan MD MD Internal Medicine 12/19/15 [address] [facility] [id number] [place], [place] [id number] Sid Lilly MD Orthopaedic Surgery 02/22/16 MD Alivia [facility] [address] [id number] [place] [address] Neda Boland, RN Nurse Coordinator Neurology 02/23/16 09/01/18 documented as of this encounter
--- OUTSIDE RECORDS SUMMARY | 2021-10-24 11:59 | XMS_ITS | Encounter Summary ---
:1955 Author Organization [facility] Address [address] [place] [address] Care Team Providers Name Role Phone Edison Tam MD Primary Care Provider Sheri Casey MD Unavailable Alphonso Billy MD Unavailable Roland Holt MD Unavailable Amita Ryan MD Unavailable Reason for Visit Reason Comments Shortness of Breath Maria E is here today to see Dr. Ryan about her SOB Encounter Details Date Type Department Care Team Description 01/12/[address] [facility] Amita Ryan Uncompl icated asthma, [facility] unspecified asthma [facility] [address] [place] [address] (Primary Dx) [facility] [place] [id number] [address] [place] [id number] Social History Tobacco Use Types Packs/Day [...] Sign Reading Time Taken Comments Blood Pressure 99/67 01/12/2016 1:49 PM CDT Pulse 90 01/12/2016 1:49 PM CDT Temperature - - Respiratory Rate 16 01/12/2016 1:49 PM CDT Oxygen Saturation 98% 01/12/2016 1:49 PM CDT Inhaled Oxygen Concentration - - Weight 59 kg (130 lb) 01/12/2016 1:49 PM CDT Height 157.5 cm (5' 2) 01/12/2016 1:49 PM CDT Body Mass Index 23.78 01/12/2016 1:49 PM CDT documented in this encounter Patient Instructions Patient InstructionsAmita Ryan MD - 01/12/2016 2:21 PM CDT Try albuterol to see if this helps with your cough and breathing. If it is going to help, you shouldnotice benefit within a few minutes, but it will wear off after a few hours. If the albuterol helps, we'll start you on a controller inhaler - steroid. Send me a [facility] message with update next week after you see ENT. We'll decide to go from there documented in this encounter Progress Notes Amita Ryan MD - 01/12/2016 4:44 PM CDT HISTORY OF PRESENT ILLNESS: The patient is a 60-year-old female with dyspnea. Her dyspnea began about a year ago. She has a cough that is nonproductive and is gradually getting worse. The cough actually feels like it is coming from irritation in her throat. She has minimal sinus congestion that has not changed over many years. She has no symptoms of gastroesophageal reflux. 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 She has a history of carbon monoxide exposure. In 2014, she was found passed out near an open window. She has wondered if this contributed to her dyspnea and cough. She has had some memory issues as well since this episode of carbon monoxide poisoning. She also has a history of Crohn's disease and has used prednisone in the past for this. She will be seeing [facility] next week to have her throat evaluated. She was given oxygen at home to use p.r.n. She sometimes uses this to recover from exertion and feels that it helps a little bit. Complete review of systems added to her note. SOCIAL HISTORY: She is a nonsmoker. She lives independently. FAMILY HISTORY: Brother and niece both have asthma. CURRENT MEDICATIONS: Reviewed and updated in the computer. PHYSICAL EXAMINATION: GENERAL: In general, she is alert, breathing without the use of accessory respiratory muscles. VITAL SIGNS: Blood pressure 99/67, heart rate 90, respirations 16, oxygen saturation 98% on room air. HEENT: Normocephalic, atraumatic. Sclerae are anicteric and conjunctivae are without injection. Oropharynx is without lesion, Mallampati configuration is II, and mucous membranes are moist. NECK: No adenopathy. LUNGS: Few wheezes at both bases, no crackles or areas of focal consolidation. HEART: Regular rate and rhythm, S1, S2, without murmurs. ABDOMEN: Bowel sounds present, soft, nontender, no masses. EXTREMITIES: No clubbing, cyanosis or edema. SKIN: Warm and dry without rashes, erythema or ecchymosis. NEUROLOGIC EXAM: She is alert and appropriate. Speech is fluent and there is no facial droop. She walks with a normal gait. RESULTS: Spirometry is performed today and personally reviewed. FEV1 is 2.67 liters or 115% predicted. FVC is 3.27 liters or 111% predicted. DLCO is also normal at 96% predicted. Values are unchanged compared with 11/2014. She had a CT of her chest in 11/2014 - this was normal. ASSESSMENT AND PLAN: Dyspnea and cough: This could be consistent with reactive airways disease. I amnot sure how to tie this in with her carbon monoxide exposure, although it did start about the same time. Either way, it is reasonable for her to have a trial of albuterol. If this very beneficial to her, we could consider treating with inhaled steroid. She is going to first try the albuterol and she will send me a MyChart message to let me know if it is beneficial. If it is not beneficial, we could consider targeting the cough with something like a PPI or nasal steroid. Followup with me will be determined by her response to albuterol. documented in this encounter Nursing Notes Ashley Cotto CMA - 01/12/2016 1:50 PM CDT Chief Complaint Patient presents with ??? Shortness of Breath Maria E is here today to see Dr. Ryan about her SOB Ashley Cotto CMA 1:50 PM on 01/12/2016 documented in this encounter Plan of Treatment Not on filedocumented as of this encounter Visit Diagnoses Diagnosis Uncomplicated asthma, unspecified asthma severity - Primary documented in this encounter Additional Health Concerns Assessment Noted Time PHQ-9 Depression Total Score: 14 05/13/2015 7:50 AM CS T documented as of this encounter Care Teams Promotional Representative Relationship Specialty Start Date End Date Edison Tam MD PCP - General Family Practice 07/23/14 909 [facility] 4 [place], [place] [id number] Sheri Casey MD MD Pulmonary Disease 07/23/14 420 [facility] [address] [place], [place] [address] Alphosno Billy MD MD Cardiology 08/12/14 12/26/17 420 [place], [place] [address] Roland Holt MD Resident Student in [facility] 05/12/15 09/24/18 health care education/training program Amita Ryan MD MD Internal Medicine 12/19/[address] [place] [address] [id number] [place], [place] [id number] documented as of this encounter
--- OUTSIDE RECORDS SUMMARY | 2021-10-24 11:59 | XMS_ITS | Encounter Summary ---
:1955 Author Organization [facility] Address [address] [place] [address] Care Team Providers Name Role Phone Edison Tam MD Primary Care Provider Sheri Casey MD Unavailable Alphonso Billy MD Unavailable Roland Holt MD Unavailable Amita Ryan MD Unavailable Reason for Visit Reason Onset Date Comments Previsit 01/06/2016 Records in Epic Encounter Details Date Type Department Care Team Description 01/06/2016 PRE VISIT [facility] Nose and CadetRobert rodrigues Previsit (Records in Throat MD Bin [facility]) 909 [facility] [address] Floor [facility] [address] [place] [address] [phone] (Wo rk) Social History Tobacco Use Types [...] Notes Telephone Encounter - Colleen Vargas - 01/06/2016 8:44 AM CDT 1. Date/reason for appt: 01/19/16 - throat pain 2. Referring provider: Dr. Edison Tam 3. Call to patient (Yes / No - short description): no, records in epic 4. Previous care at: [facility] documented in this encounter Plan of Treatment Not on filedocumented as of this encounter Visit Diagnoses Not on filedocumented in this encounter Additional Health Concerns Assessment Noted Time PHQ-9 Depression Total Score: 14 05/13/2015 7:50 AM CS T documented as of this encounter Care Teams Talent Acquisition Partner Relationship Specialty Start Date End Date Edison Tam MD PCP - General Family Practice 07/23/[address] [place] [address] 4 [place], [place] [id number] Sheri Casey MD MD Pulmonary Disease 07/23/14 420 [facility] [address] [place], [place] [phone] Alphonso Billy MD MD Cardiology 08/12/14 12/26/[address] [place] [id number] Roland Holt MD Resident Student in [facility] 05/12/15 09/24/18 health [facility] education/training program Amita Ryan MD MD Internal Medicine 12/19/15 909 [facility] [id number] [place], [place] [id number] documented as of this encounter
--- OUTSIDE RECORDS SUMMARY | 2021-10-24 11:59 | XMS_ITS | Encounter Summary ---
:1955 Author Organization [facility] Address [address] [place] [address] Care Team Providers Name Role Phone Edison Tam MD Primary Care Provider Sheri Casey MD Unavailable Alphonso Billy MD Unavailable Roland Holt MD Unavailable Amita Ryan MD Unavailable Sid Lilly MD Unavailable Neda Boland RN Unavailable Reason for Visit Reason Onset Date Comments Refill Request 05/22/2016 Encounter Details Date Type Department Care Team Description 05/22/2016 [place] [facility] Gastroenterology and Charan mishra MD Refill Request IBD Clinic [address] [place] [address] [place], [place] [phone] Social History Tobacco Use Types Packs/Day Years [...] complication, un specified gastrointestinal tract location (H) - Primary documented in this encounter Additional Health Concerns Assessment Noted Time PHQ-9 Depression Total Score: 14 05/13/2015 7:50 AM CS T documented as of this encounter Care Teams Shipping And Receiving Clerk Relationship Specialty Start Date End Date Edison Tam, PCP - General Family Practice 07/23/14 [place] 909 [facility] [place] [address] [place], [place] [phone] Sheri Casey MD Pulmonary Disease 07/23/14 420 [facility] [address] [place] [address] Alphonso Billy MD Cardiology 08/12/[address] [place] [address] Roland Holt MD Resident Student in [facility] 05/12/15 09/24/18 health care education/training program Amita Ryan MD MD Internal Medicine 12/19/15 909 [facility] [id number] [place], [place] [address] Sid Lilly MD Orthopaedic Surgery 02/22/16 MD [facility] [place], [place] [phone] Neda Boland, RN Nurse Coordinator Neurology 02/23/16 09/01/18 documented as of this encounter
--- OUTSIDE RECORDS SUMMARY | 2021-10-24 11:59 | XMS_ITS | Encounter Summary ---
:1955 Author Organization [facility] Address formerly [facility] [place] [address] Care Team Providers Name Role Phone Edison Olivas MD Primary Care Provider Sheri Casey MD Unavailable Alphonso Billy MD Unavailable Roland Holt MD Unavailable Amita Ryan MD Unavailable Reason for Visit Reason Comments Eval/Assessment h/o carbon monoxide poisonin g. c/o of fatigue/dizziness CV Cardio consult - Closed Specialty Diagnoses / Procedures Referred By Contact Refer red To Contact Diagnoses Exertional dyspnea Generalized muscle weakness Carbon monoxide exposure Edison Olivas MD [address] [address] 5 Referral ID Status Reason Start Date Expiration Date Visits Requ ested Visits Authorized [id number] Closed 01/23/2016 01/22/2017 1 1 Encounter Details Date Type Department Care Team Description 01/28/2016 Office Visit [facility] Jose Martin Swartz DOE (dyspnea on exertion) (Primary Dx); [facility] Frank PARKER Chest pressure [address] [facility] [address] [place], [place] [address] [place], [place] [phone] [facility] [phone] (Wo rk) Social History Tobacco Use Types [...] Sign Reading Time Taken Comments Blood Pressure 106/72 01/28/2016 10:45 R arm, sitting, AM HAND CLOTH EXAMINER regular cuff Pulse 96 01/28/2016 10:45 AM HAND CLOTH EXAMINER Temperature - - Respiratory Rate - - Oxygen Saturation 93% 01/28/2016 10:45 AM HAND CLOTH EXAMINER Inhaled Oxygen - - Concentration Weight 61.5 kg (135 lb 8 01/28/2016 10:45 oz) AM HAND CLOTH EXAMINER Height 157.5 cm (5' 2) 01/28/2016 10:45 AM HAND CLOTH EXAMINER Body Mass Index 24.78 01/28/2016 10:45 AM HAND CLOTH EXAMINER documented in this encounter Patient Instructions Patient InstructionsMerry Lugo RN - 01/28/2016 10:55 AM CST You were seen today in the Cardiovascular Clinic at the [facility]. Cardiology Providers you saw during your visit: Dr. Vogt Thank you for your visit today. 1. Please have a dobutamine stress echo scheduled for sometime next week. We will contact you with results. INSTRUCTIONS FOR DOBUTAMINE STRESS ECHO: Nothing to eat or drink for 3 hours before test except for water. No caffeine, tobacco, or alcohol for 12 hrs before test. Stop your beta anand two days before the test. You can take your propanolol. Merry Lugo CAREER RESOURCE TECHNICIAN [facility] Cardiology Dopster Questions and [phone]. First press #1 for the University and then press #3 for Medical Questions to reach us Cardiology Nurses. Motion Study Engineer Recruiting Manager for after hours or on weekends: [phone] option #4 and ask to speak to the on-call Recruiting Manager. CLOTH EXAMINER documented in this encounter Progress Notes Jose Martin Swartz MD - 01/28/2016 11:00 AM CST SUBJECTIVE: Maria E Coley is a 60 year old female who presents forevaluation of chest pain and RODGERS. Started6 months ago. Central chest pain likesomebody squeezing my heart whole day.Not aggravated by activity,but subside with rest.No other symptoms. Non smoker.No DM.No HTN.Lipids OK.No premature CAD in family. States that she had Carbon monoxide poisoning at low dose for 3 years from low level CO level from Radiator at apartment(Undetected by CO detector). Patient Active Problem List Diagnosis Date Noted ??? Carbon monoxide exposure 01/23/2016 Priority: Medium ??? Digestive-genital tract fistula, female 07/11/2015 Priority: Medium ??? Pneumaturia 07/11/2015 Priority: Medium ??? Osteoporosis 05/19/2015 Priority: Medium ??? History of corticosteroid therapy 08/27/2013 Priority: Medium ??? Senile osteoporosis 07/27/2013 Priority: Medium ??? Personal history of other drug therapy 07/27/2013 Priority: Medium ??? Low back pain 06/02/2013 Priority: Medium ??? Chronic low back pain 05/28/2013 Priority: Medium ??? Lumbar stenosis with neurogenic claudication 05/28/2013 Priority: Medium ??? Lumbar radicular pain 05/28/2013 Priority: Medium ??? Sacroiliac joint pain 05/28/2013 Priority: Medium ??? Numbness and tingling of left leg 04/02/2013 Priority: Medium ??? Hypothyroidism 12/03/2012 Priority: Medium ??? Inflammatory bowel disease (Crohn's disease) (H) 07/25/2012 Priority: Medium ??? Connective tissue disorder (H) 07/19/2012 Priority: Medium ??? Sinus infection 03/27/2012 Priority: Medium ??? Dehydration 02/06/2012 Priority: Medium ??? Neoplasm of uncertain behavior of skin 02/02/2012 Priority: Medium ??? Pyelonephritis 01/21/2012 Priority: Medium ??? Concussion 12/13/2011 Priority: Medium ??? Restless leg syndrome 12/13/2011 Priority: Medium ??? Right wrist fracture 12/13/2011 Priority: Medium ??? Fall 12/03/2011 Priority: Medium ??? Cholelithiases 11/07/2011 Priority: Medium ??? Sacro-iliac pain 11/01/2011 Priority: Medium ??? Dermatitis 11/01/2011 Priority: Medium ??? Fibrosis of skin 11/01/2011 Priority: Medium ??? Adjustment disorder with mixed anxiety and depressed mood 09/20/2011 Priority: Medium Dr Hope ??? Fatigue 09/20/2011 Priority: Medium ??? Renal mass, right 09/20/2011 Priority: Medium ??? Yossi's thyroiditis 09/19/1989 Priority: Medium Currently hypothyroid (Problem list name updated by automated process. Provider to review and confirm.) ??? Crohn's disease of both small and large intestine with complication (H) 09/20/1987 Priority: Medium Surgical resection Intermittent obstruction . Current Outpatient Prescriptions Medication Sig ??? cyanocobalamin (VITAMIN B12) 1000 MCG/ML injection Inject 1 mL (1,000 mcg) into the muscle every30 days ??? blood glucose monitoring (NO BRAND SPECIFIED) test strip Use to test blood sugars one times daily or as directed ??? predniSONE (DELTASONE) 5 MG tablet (total daily dose 7 mg/day) ??? Levothyroxine Sodium 50 MCG CAPS Take 1 tablet by mouth daily ??? venlafaxine (EFFEXOR-ER) 150 MG TB24 150 mg ??? propranolol (INDERAL) 10 MG tablet Take 1 tablet (10 mg) by mouth daily ??? rOPINIRole (REQUIP) 1 MG tablet Take 1 tablet (1 mg) by mouth At Bedtime May take 1/2 tab additional prn once daily. ??? predniSONE (DELTASONE) 1 MG tablet Take 2 tablets (2 mg) by mouth daily With the 5mg tab for total of 7mg daily. ??? ORDER FOR DME, SET TO LOCAL PRINT, Equipment being ordered: portable Oxygen with nasal cannula at 1-2 liters ??? L-Lysine 500 MG TABS Take 1 tablet by mouth daily ??? ORDER FOR DME Injection Supplies for Vitamin B12: 3cc syringes w/ 27 gauge needles, 1 inch length ??? cholecalciferol (VITAMIN D) 1000 UNIT tablet Take 1 tablet (1,000 Units) by mouth daily Discontinue Vitamin D 35972 ??? acetaminophen (TYLENOL) 500 MG tablet Take 500-1,000 mg by mouth every 8 hours as needed ??? Potassium Chloride CR 8 MEQ CPCR Take 16 mEq by mouth daily NEED APPT WITH DR. OLIVAS FOR REFILLS. ??? buPROPion (WELLBUTRIN SR) 150 MG 12 hr tablet Take 300 mg by mouth every morning ??? ALPRAZolam (XANAX) 0.5 MG tablet Take 0.5 mg by mouth At Bedtime ??? multivitamin (THERA-PLUS) LIQD Take 5 mLs by mouth daily. ??? Carboxymethylcellulose Sodium (REFRESH TEARS OP) Apply to eye. ??? fluorouracil (EFUDEX) 5 % cream Apply topically to bilateral forearms and hands twice daily ??? guaiFENesin (MUCINEX) 600 MG 12 hr tablet Take 600 mg by mouth 2 times daily as needed. ??? Menthol, Topical Analgesic, (ICY HOT EX) Externally apply topically. Patient uses Gel, Cream andPatch PRN ??? Calcium Citrate-Vitamin D (CITRACAL + D PO) Take 1 tablet by mouth 2 times daily. No current facility-administered medications for this visit. Past Medical History Diagnosis Date ??? Crohn's [...] of CO poisoning and fdc prednisone use? History of blood transfusion N/A [...] on my right kidney Past Surgical History Procedure Laterality Date ??? [...] Location: US OR ??? Biopsy yes ??? Regional Clinical Research Associate surgery mass on remaining ovary ??? Ent surgery september 2015 I seem to have developed a chronic sore throat Allergies Allergen Reactions ??? Humira Rash ??? [...] Profound lethargy ??? Tramadol Itching and Rash Social History Social History ??? Marital Status: Single Spouse Name: N/A ??? Number of Children: N/A ??? Years of Education: N/A Occupational History ??? Not on file. Social History Main Topics ??? Smoking status: Former Smoker -- 1.00 packs/day for 18 years Types: Cigarettes Start date: 11/11/1972 Quit date: 06/26/1981 ??? Smokeless tobacco: Former User Quit date: 09/20/1991 ??? Alcohol Use: No ??? Drug Use: No Comment: no longer ??? Sexual Activity: Partners: Male Control/ Protection: None Comment: twice Other Topics Concern ??? Not on file Social History Narrative Moved to [place] from [facility]. She is living in an apartment accessible. Family History Problem Relation Age of Onset [...] Sister , ??? Muscular Disorder Sister MS REVIEW OF SYSTEMS: General: negative, fever, chills, night sweats Skin: negative, acne, rash and scaling Eyes: negative, double vision, eye pain and photophobia Ears/Nose/Throat: negative, nasal congestion and purulent rhinorrhea Respiratory: No cough, No hemoptysis and negative Cardiovascular: negative, palpitations, tachycardia, irregular heart beat, paroxysmal nocturnal dyspnea and orthopnea Gastrointestinal: negative, dysphagia, nausea and vomiting Genitourinary: negative, nocturia, dysuria and frequency Musculoskeletal: negative, fracture, neck pain and arthritis Neurologic: negative, headaches, stroke, seizures and paralysis Psychiatric: negative and nervous breakdown Hematologic/Lymphatic/Immunologic: negative, bleeding disorder, chills and fever Endocrine: negative, cold intolerance, heat intolerance and hot flashes OBJECTIVE: Blood pressure 106/72, pulse 96, height 1.575 m (5' 2), weight 61.462 kg (135 lb 8 oz), SpO2 93 %, not currently . General Appearance: alert, active and no distress Head: Normocephalic. No masses, lesions, tenderness or abnormalities Eyes: conjuctiva clear, PERRL, EOM intact Ears: External ears normal. Canals clear. TM's normal. Nose: Nares normal Mouth: normal Neck: Supple, no cervical adenopathy, no thyromegaly Lungs: clear to auscultation Cardiac: regular rate and rhythm, normal S1 and S2, no murmur Abdomen: Soft, nontender. Normal bowel sounds. No hepatosplenomegaly or abnormal masses Extremities: no peripheral edema, peripheral pulses normal Musculoskeletal: negative Neurological: Cranial nerves 2-12 intact, motor strength intact ASSESSMENT/PLAN: 60 yr old female with previous claim of slow CO poisoning,now presents with atypical chest pain and RODGERS.No significant cardiac risk factors. Reviewed EKG-NSR.Normal. Reviewed Echo from 2015.Normal with normal valves. Due to atypical symptoms will plan for a DSE. Per orders. Return to Clinic PRN. Answers for HPI/ROS submitted by the patient on 01/27/2016 General Symptoms: Yes Skin Symptoms: Yes HENT Symptoms: Yes EYE SYMPTOMS: Yes HEART SYMPTOMS: Yes LUNG SYMPTOMS: Yes INTESTINAL SYMPTOMS: Yes URINARY SYMPTOMS: No GYNECOLOGIC SYMPTOMS: No BREAST SYMPTOMS: No SKELETAL SYMPTOMS: Yes BLOOD SYMPTOMS: No NERVOUS SYSTEM SYMPTOMS: Yes MENTAL HEALTH SYMPTOMS: No Fever: No Loss of appetite: Yes Weight loss: No Weight gain: No Fatigue: Yes Night sweats: No Chills: Yes Increased stress: No Excessive hunger: No Excessive thirst: No Feeling hot or cold when others believe the temperature is normal: No Loss of height: No Post-operative complications: No Surgical site pain: No Hallucinations: No Change in or Loss of Energy: Yes Hyperactivity: No Confusion: Yes Changes in hair: No Changes in moles/ rose: No Itching: No Rashes: No Changes in nails: No Acne: Yes Hair in places you don't want it: No Change in facial hair: No Warts: No Non-healing sores: No Scarring: No Flaking of skin: Yes Color changes of hands/feet in cold : Yes Sun sensitivity: Yes Skin thickening: Yes Ear pain: No Ear discharge: No Hearing loss: No Tinnitus: Yes Nosebleeds: No Congestion: Yes Sinus pain: No Trouble swallowing: Yes Voice hoarseness: Yes Mouth sores: No Sore throat: Yes Tooth pain: Yes Gum tenderness: No Bleeding gums: Yes Change in taste: No Change in sense of smell: No Dry mouth: No Hearing aid used: No Neck lump: No Eye pain: No Vision loss: No Dry eyes: Yes Watery eyes: No Eye bulging: No Double vision: No Flashing of lights: No Spots: No Floaters: No Redness: Yes Crossed eyes: No Tunnel Vision: No Yellowing of eyes: No Eye irritation: No Cough: Yes Sputum or phlegm: No Coughing up blood: No Difficulty breating or shortness of breath: Yes Snoring: No Wheezing: No Difficulty breathing on exertion: Yes Respiratory pain: Yes Nighttime Cough: Yes Difficulty breathing when lying flat: Yes Chest pain or pressure: Yes Fast or irregular heartbeat: Yes Pain in legs with walking: No Swelling in feet or ankles: No Trouble breathing while lying down: Yes Fingers or Toes appear blue: No High blood pressure: No Low blood pressure: Yes Fainting: No Murmurs: No Chest pain on exertion: Yes Chest pain at rest: Yes Cramping pain in leg during exercise: Yes Pacemaker: No Varicose veins: No Edema or swelling: No Fast heart beat: Yes Wake up at night with shortness of breath: No Heart flutters: No Light-headedness: Yes Exercise intolerance: Yes Heart burn or indigestion: No Nausea: Yes Vomiting: No Abdominal pain: No Bloating: No Constipation: No Diarrhea: No Blood in stool: No Black stools: No Rectal or Anal pain: No Fecal incontinence: No Rectal bleeding: No Yellowing of skin or eyes: No Vomit with blood: No Change in stools: No Hemorrhoids: Yes Back pain: Yes Muscle aches: Yes Neck pain: No Swollen joints: No Joint pain: Yes Bone pain: Yes Muscle cramps: Yes Muscle weakness: Yes Joint stiffness: No Bone fracture: No Trouble with coordination: Yes Dizziness or trouble with balance: Yes Fainting or black-out spells: No Memory loss: Yes Headache: Yes Seizures: No Speech problems: No Tingling: Yes Tremor: No Weakness: Yes Difficulty walking: No Paralysis: No Numbness: Yes CLOTH EXAMINER documented in this encounter Nursing Notes Merry Lugo RN - 01/28/2016 11:17 AM CST Cardiac Testing: Patient given instructions regarding stress echocardiogram . Discussed purpose, preparation, procedure and when to expect results reported back to the patient. Patient demonstrated understanding of this information and agreed to call with further questions or concerns. Med Reconcile: Reviewed and verified all current medications with the patient. The updated medication list was printed and given to the patient. Patient stated she understood all health information given and agreed to call with further questionsor concerns. CLOTH EXAMINER documented in this encounter Plan of Treatment Not on filedocumented as of this encounter Visit Diagnoses Diagnosis RODGERS (dyspnea on exertion) - Primary Other dyspnea and respiratory abnormalit y Chest pressure Other chest pain documented in this encounter Additional Health Concerns Assessment Noted Time PHQ-9 Depression Total Score: 14 05/13/2015 7:50 AM CS T documented as of this encounter Care Teams Tobacco Prizer Relationship Specialty Start Date End Date Edison Olivas MD PCP - General Family Practice 07/23/14 909 [facility] 4 [place], [place] [address] Sheri Casey MD MD Pulmonary Disease 07/23/14 420 [facility] [address] [place], [place] [phone] Alphonso Billy MD MD Cardiology 08/12/14 12/26/17 [address] [place], [place] [id number] Roland Holt MD Resident Student in [facility] 05/12/15 09/24/18 [facility] education/training program Amita Ryan MD MD Internal Medicine 12/19/[address] [place] [address] [id number] [place] [address] documented as of this encounter
--- OUTSIDE RECORDS SUMMARY | 2021-10-24 11:59 | XMS_ITS | Encounter Summary ---
:1955 Author Organization [place] Address [address] [place] [address] Care Team Providers Name Role Phone Edison Tam MD Primary Care Provider Sheri Casey MD Unavailable Alphonso Billy MD Unavailable Roland Holt MD Unavailable Amita Ryan MD Unavailable Reason for Visit Reason Onset Date Comments Refill Request 02/07/2016 Ropinirole Encounter Details Date Type Department Care Team Description 02/07/2016 Refill [facility] Primary Care Edison Tam efill Request [facility] MD Marcia (Ropinirole) [address] [place] [address] Floor [address] [place] [address] [phone] (Wo rk) Social History Tobacco Use Types [...] this encounter Visit Diagnoses Diagnosis Restless leg - Primary Restless legs syndrome (RLS) documented in this encounter Additional Health Concerns Assessment Noted Time PHQ-9 Depression Total Score: 14 05/13/2015 7:50 AM CS T documented as of this encounter Care Teams Para Professional Relationship Specialty Start Date End Date Edison Tam MD PCP - General Family Practice 07/23/[address] [facility] [address] [place], [place] [phone] Sheri Casey MD MD Pulmonary Disease 07/23/14 420 [facility] [address] [place], [place] [phone] Alphonso Billy MD MD Cardiology 08/12/14 12/26/17 420 [place], [place] [phone] Roland Holt MD Resident Student in [facility] 05/12/15 09/24/18 [facility] education/training program Amita Ryan MD MD Internal Medicine 12/19/[address] [facility] [id number] [place], [place] [phone] documented as of this encounter
--- OUTSIDE RECORDS SUMMARY | 2021-10-24 11:59 | XMS_ITS | Encounter Summary ---
:1955 Author Organization [facility] Address [address] [place] [address] Care Team Providers Name Role Phone Edison Tam MD Primary Care Provider Sheri Casey MD Unavailable Alphonso Billy MD Unavailable Roland Holt MD Unavailable Amita Ryan MD Unavailable Sid Lilly MD Unavailable [phone] Neda Boland RN Unavailable Encounter Details Date Type Department Care Team Description 03/13/2016 [facility] Visit [facility] [place], Right leg numbness [facility] Jaden Rodriguez, (Primary Dx) 3rd Floor [address] [address] [id number] [phone] [place] [address] (Wo rk) Social History Tobacco Use Types Packs/Day Years Used Date Former Smoker Cigarettes 1 18 11/11/1972 - 0 06/26/1981 Smokeless Tobacco: Former User Q uit: 09/20/1991 Alcohol Use Standard Drinks/Week Comments No 0 (1 standard drink = 0.6 oz pure alcoho l) Sex Assigned at Date Recorded Not on file documented as of this encounter Progress Notes Jaden Jesus MD - 03/13/2016 2:33 PM CST Images from the original note were not included. [facility] Nerve Conduction & EMG Report Patient: Maria E Coley Date of : 1955 Age: 60 Years 3 Months Referring Provider: Bushra Clarke NP History & Examination: 60 year old woman with right leg pain, weakness, and history of two prior lumbar laminectomies. Examshows absent right and normal left ankle reflex. I did not appreciate any weakness of the right lower extremity today. Query lumbosacral radiculopathy. Techniques: Motor and sensory conduction studies were done with surface recording electrodes. Temperature was monitored and recorded throughout the study. Lower extremities were maintained at a temperature of 31degrees Centigrade or higher. EMG was done with a concentric needle electrode. Results: Right sural and superficial peroneal antidromic sensory NCSs were normal. Right deep peroneal and tibial motor NCSs were normal. Right tibial F-wave latencies were normal. Bilateral tibial H-reflexes were obtainable with normal onset latencies and reproducibility on both sides. EMG of right medial gastrocnemius showed increased insertional activity, but no sustained fibrillations, positive waves or high frequency discharges. MUP morphology and recruitment patterns were normal. EMG of right gluteus michael showed no abnormal spontaneous activity, and an excess of polyphasic MUPs with normal recruitment patterns. EMG of right vastus lateralis, tibialis anterior, tibialis posterior, and biceps femoris (short head) was normal. Interpretation: Mild and non-diagnostic EMG abnormalities. See comment. Comment: Increased insertional activity at the right medial gastrocnemius and some polyphasic motor units at the right gluteus michael are non-specific findings. A mild right S1 radiculopathy cannot beexcluded. EMG Physician: Jaden Jesus MD Sensory NCS Nerve / Sites Rec. Site Onset Peak DRY SANDER Amp Ref. PP Amp Dist Charles Ref. Temp ms ms ??V ??V ??V cm m/s m/s ??C R SURAL - Lat Mall 60 Calf Ankle 2.45 3.18 13.5 5.0 23.9 12.5 51.1 38.0 30.6 Calf Ankle 2.66 3.44 12.1 5.0 15.0 14 52.7 30.6 R SUP PERONEAL Lat Leg Coronel 2.50 3.28 17.9 28.9 12.5 50.0 38.0 30.6 Motor NCS Nerve / Sites Rec. Site Lat Ref. Amp Ref. Rel Amp Dist Charles Ref. Dur. Area Temp. ms ms mV mV % cm m/s m/s ms % ??C R DEEP PERONEAL - EDB 60 Ankle EDB 4.43 6.00 2.4 2.0 100 8 6.88 100 30.4 FibHead EDB 10.47 2.4 99.1 28 46.3 38.0 7.34 648 30.6 Pop Fos EDB 12.66 2.4 99.2 10 45.7 38.0 7.97 76.4 30.6 R TIBIAL - AH Ankle AH 3.07 6.00 15.9 4.0 100 8 5.57 100 30.6 Pop Fos AH 11.35 11.4 71.7 35 42.3 38.0 6.41 87.8 30.6 F Wave Nerve Min F Lat Max F Lat Mean FLat Temp. ms ms ms ??C R TIBIAL 46.25 49.53 47.16 30.6 H Reflex Nerve M Lat. Max M M Lat. Max H M Amp pk Max M M Amp pk Max H H Lat. H Amp pk H- M Lat. H/M Ampl ms ms mV mV ms mV ms % L TIBIAL 3.85 3.91 4.3 4.1 32.45 0.4 28.59 9.74% R TIBIAL 4.27 4.38 7.8 7.0 32.45 0.4 28.18 5.41% EMG Summary Table Spontaneous MUAP Recruitment IA Fib PSW Fasc H.F. Amp Dur. PPP Pattern R. TIB ANTERIOR N None None None None N N N N R. GASTROCN (MED) 1+ None None None None N N N N R. VAST LATERALIS N None None None None N N N N R. BIC FEM (S HEAD) N None None None None N N N N R. GLUTEUS MAX N None None None None N N 2+ N R. TIB POSTERIOR N None None None None N N N N RETE INSPECTOR documented in this encounter Plan of Treatment Not on filedocumented as of this encounter Procedures Procedure Name Priority Date/Time Associated Diagnosis Comme nts HC NCS MOTOR W OR Routine 03/13/2016 3:11 PM Right leg numbnes s W/O F-WAVE, 3 OR 4 CONCRETE INSPECTOR HC NEEDLE EMG EA Routine 03/13/2016 Right leg numbness Resul ts for this EXTREMTY procedure are i n W/PARASPINAL AREA the result s COMPLETE section. documented in this encounter Results Needle EMG Each Extremity w/Paraspinal Area Complete (14241) (03/13/2016) Impressions Jaden Jesus MD - 05/2016 [facility] Nerve Conduction & EMG Report ?? Patient: ? Maria E Coley Date of : 1955 Age: ? 60 Years 3 Months ?? Referring Provider: Bushra Clarke NP History & Examination: 60 year old woman with right leg pain, w eakness, and history of two prior lumbar laminectomies. Exam jose ws absent right and normal left ankle reflex. I did not appr eciate any weakness of the right lower extremity today. Query l umbosacral radiculopathy. Techniques: Motor and sensory conduction studies were done with surface recording electrodes. Temperatur e was monitored and recorded throughout the study. Lower ext remities were maintained at a temperature of 31degrees Centigrade or higher. EMG was done with a concentric needle electrode. Results: Right sural and superficial peroneal ant idromic sensory NCSs were normal. Right deep peroneal and tibial m otor NCSs were normal. Right tibial F-wave latencies were jean paul l. Bilateral tibial H-reflexes were obtainable with normal o nset latencies and reproducibility on both sides. EMG of right medial gastrocnemius showed increased insertional activity, but no sustained fibrillations , positive waves or high frequency discharges. MUP morphology and recruitment patterns were normal. EMG of right gluteus maximu s showed no abnormal spontaneous activity, and an excess of p olyphasic MUPs with normal recruitment patterns. EMG of righ t vastus lateralis, tibialis anterior, tibialis posterior, a nd biceps femoris (short head) was normal. Interpretation: Mild and non-diagnostic EMG abnormalitie s. See comment. Comment: Increased insertional activity at the right medial gastrocnemius and some polyphasic motor units at the right gluteus michael are non-specific finding s. A mild right S1 radiculopathy cannot be excluded. EMG Physician: Jaden Jesus MD Jaden Jesus MD PROCEDURES documented in this encounter Visit Diagnoses Diagnosis Right leg numbness - Primary Disturbance of skin sensation documented in this encounter Additional Health Concerns Assessment Noted Time PHQ-9 Depression Total Score: 14 05/13/2015 7:50 AM CS T documented as of this encounter Care Teams Security Delivery Specialist Relationship Specialty Start Date End Date Edison Tam, PCP - General Family Practice 07/23/[address] [place] [address] [address] [place], [place] [address] Sheri Casey MD Pulmonary Disease 07/23/[address] [place] [address] [facility] [address] [place], [place] [address] Alphonso Billy MD Cardiology 08/12/[address] [address] Roland Holt MD Resident Student in [facility] 05/12/15 09/24/18 [facility] education/training program Amita Ryan MD MD Internal Medicine 12/19/[address] [place] [address] [id number] [place], [place] [address] Sid Lilly MD Orthopaedic Surgery 02/22/16 MD Alivia [address] [place], [place] [id number] Neda Boland, RN Nurse Coordinator Neurology 02/23/16 09/01/18 documented as of this encounter
--- OUTSIDE RECORDS SUMMARY | 2021-10-24 11:59 | XMS_ITS | Encounter Summary ---
:1955 Author Organization [facility] Address [address] [place] [address] Care Team Providers Name Role Phone Edison Tam MD Primary Care Provider Sheri Casey MD Unavailable Alphonso Billy MD Unavailable Roland Holt MD Unavailable Amita Ryan MD Unavailable Sid Lilly MD Unavailable Neda Boland RN Unavailable Encounter Details Date Type Department Care Team Description 03/13/2016 Radiant Appointment [facility] Imaging Bushra Clarke Paresthesia; Center MRI Celia, Complaints of leg weakness 909 [facility] SE 909 [facility] 1st Floor [id number] [place] [address] [phone] Social History Tobacco Use Types Packs/Day Years Used Date Former Smoker Cigarettes 1 18 11/11/1972 - 0 06/26/1981 Smokeless Tobacco: Former User Q uit: 09/20/1991 Alcohol Use Standard Drinks/Week Comments No 0 (1 standard drink = 0.6 oz pure alcoho l) Sex Assigned at Date Recorded Not on file documented as of this encounter Progress Notes Bushra Clarke APRN CNP - 06/12/2016 4:11 PM CDT Dear Maria E, Please schedule a follow up visit to discuss your lumbar MRI results if you have any questions and especially if your symptoms persist. Sincerely, Bushra documented in this encounter Plan of Treatment Not on filedocumented as of this encounter Procedures Procedure Name Priority Date/Time Associated Diagnosis Comme nts MR LUMBAR SPINE W/O Routine 03/13/2016 3:34 PM Paresthes ia Results for this CONTRAST CLASSIFICATION CLERK Complaints of leg procedure are in weakness the results section. documented in this encounter Results MR Lumbar Spine w/o Contrast (03/13/2016 3:34 PM CLASSIFICATION CLERK) Anatomical Region Laterality Modality Spine, SUBRAD MR MSK, UMP MR SPINE Magne tic Resonance Specimen (Source) Anatomical Location Collection Method / Collectio n Time Received Time / Laterality Volume Impressions 03/13/2016 4:18 PM CLASSIFICATION CLERK Impression: 1. From the complete spine fashion photographer images, there is a lumbarized S1 vertebral body. Notably, this numbering convention differs from that used on the prior MRI examination. 2. Laminectomies from L4-S1. 3. Multilevel lumbar degenerative change s. Disc extrusion at L1-2 has progressed from a protrusion on 01/28/20 14, now contributing to mild spinal canal narrowing and displacing th e left L1 nerve root. 4. Unchanged severe left neural foramina l stenosis with impingement on the exiting left L4 nerve root. 5. Moderate neural foraminal narrowing o n the left at L3-4 and on the right at L4-5. ELDER LEO MD Narrative 03/13/2016 4:18 PM CLASSIFICATION CLERK MR LUMBAR SPINE W/O CONTRAST 03/13/2016 3:34 PM History: Paresthesia of skin, Other symp toms and signs involving the musculoskeletal system Comparison: MRI lumbar spine 01/27/2014 Technique: Sagittal T1-weighted, sagitta l T2-weighted, sagittal STIR, sagittal diffusion-weighted, axial T2-we ighted, and axial gradient echo images of the lumbar spine were obt ained without the administration of intravenous contrast. Findings: Regarding numbering convention , using the complete spine fashion photographer images, there are 5 lumbar type ve rtebrae with a lumbarized S1. Notably, this convention differs from th at used on the comparison examination report from 01/27/2014. Usin g this convention, the tip of the conus medullaris is at L1-2. ??Regar ding alignment, the lumbar vertebral column appears normally aligne d. Laminectomies from L4-S1. Atrophy of the erector spinae musculatur e in the surgical bed. Mild lumbar subcutaneous edema. Severe loss o f disc height at L5-S1. Moderate loss of disc height at L4-5. Mi ld loss of disc height at L3-4. On a level by level basis: T12-L1: Central disc protrusion with mil d spinal canal narrowing. No neural foraminal stenosis. L1-2: Left central and subarticular disc extrusion migrating cephalad, worsened since the protrusion on 014. The extruded disc displaces the left L1 nerve root and con tributes to mild spinal canal narrowing. No neural foraminal stenosis. L2-3: Disc bulge asymmetric to the right with partial effacement of the right lateral recess. Bilateral face t hypertrophy. Mild spinal canal narrowing. Mild right neural mervin inal narrowing. No left neural foraminal stenosis. L3-4: Posterior disc bulge with superimp osed left subarticular and foraminal disc protrusion with effacemen t of the left lateral recess and mild spinal canal narrowing. Moderat e left neural foraminal narrowing. Mild right neural foraminal n arrowing. Spinal canal narrowing has worsened since 2013. L4-5: Laminectomy defects. Bilateral fac et hypertrophy. Posterior disc osteophyte complex partially effacing ricki th lateral recesses and mild spinal canal narrowing. Moderate right a nd severe left neural foraminal stenosis, unchanged. Persisten t impingement on the exiting left L4 nerve root. L5-S1: Laminectomy defects. Bilateral fa cet hypertrophy. Circumferential disc osteophyte complex. No spinal canal stenosis. Mild bilateral neural foraminal narrowin g. 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 Bilateral facet hypertrophy. Mild bilate ral neural foraminal narrowing, unchanged. No spinal canal st enosis. Procedure Note Elder Leo MD - 03/13/2016Format ting of this note might be different from the original. MR LUMBAR SPINE W/O CONTRAST 03/13/2016 3: 34 PM History: Paresthesia of skin, Other symp toms and signs involving the musculoskeletal system Comparison: MRI lumbar spine 01/27/2014 Technique: Sagittal T1-weighted, sagitta l T2-weighted, sagittal STIR, sagittal diffusion-weighted, axial T2-we ighted, and axial gradient echo images of the lumbar spine were obt ained without the administration of intravenous contrast. Findings: Regarding numbering convention , using the complete spine fashion photographer images, there are 5 lumbar type ve rtebrae with a lumbarized S1. Notably, this convention differs from th at used on the comparison examination report from 01/27/2014. Usin g this convention, the tip of the conus medullaris is at L1-2. Regardi ng alignment, the lumbar vertebral column appears normally aligne d. Laminectomies from L4-S1. Atrophy of the erector spinae musculatur e in the surgical bed. Mild lumbar subcutaneous edema. Severe loss o f disc height at L5-S1. Moderate loss of disc height at L4-5. Mi ld loss of disc height at L3-4. On a level by level basis: T12-L1: Central disc protrusion with mil d spinal canal narrowing. No neural foraminal stenosis. L1-2: Left central and subarticular disc extrusion migrating cephalad, worsened since the protrusion on 014. The extruded disc displaces the left L1 nerve root and con tributes to mild spinal canal narrowing. No neural foraminal stenosis. L2-3: Disc bulge asymmetric to the right with partial effacement of the right lateral recess. Bilateral face t hypertrophy. Mild spinal canal narrowing. Mild right neural mervin inal narrowing. No left neural foraminal stenosis. L3-4: Posterior disc bulge with superimp osed left subarticular and foraminal disc protrusion with effacemen t of the left lateral recess and mild spinal canal narrowing. Moderat e left neural foraminal narrowing. Mild right neural foraminal n arrowing. Spinal canal narrowing has worsened since 2013. L4-5: Laminectomy defects. Bilateral fac et hypertrophy. Posterior disc osteophyte complex partially effacing ricki th lateral recesses and mild spinal canal narrowing. Moderate right a nd severe left neural foraminal stenosis, unchanged. Persisten t impingement on the exiting left L4 nerve root. L5-S1: Laminectomy defects. Bilateral fa cet hypertrophy. Circumferential disc osteophyte complex. No spinal canal stenosis. Mild bilateral neural foraminal narrowin g. 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 Bilateral facet hypertrophy. Mild bilate ral neural foraminal narrowing, unchanged. No spinal canal st enosis. Impression: 1. From the complete spine fashion photographer images, there is a lumbarized S1 vertebral body. Notably, this numbering convention differs from that used on the prior MRI examination. 2. Laminectomies from L4-S1. 3. Multilevel lumbar degenerative change s. Disc extrusion at L1-2 has progressed from a protrusion on 01/28/20 14, now contributing to mild spinal canal narrowing and displacing th e left L1 nerve root. 4. Unchanged severe left neural foramina l stenosis with impingement on the exiting left L4 nerve root. 5. Moderate neural foraminal narrowing o n the left at L3-4 and on the right at L4-5. ELDER LEO MD Bushra Clarke APRN CARTOGRAPHY TECHNICIAN IMG MRI ORDERAB LES documented in this encounter Visit Diagnoses Diagnosis Paresthesia Disturbance of skin sensation Complaints of leg weakness Other musculoskeletal symptoms referable to limbs documented in this encounter Additional Health Concerns Assessment Noted Time PHQ-9 Depression Total Score: 14 05/13/2015 7:50 AM CS T documented as of this encounter Care Teams Lease Buyer Relationship Specialty Start Date End Date Edison Tam, PCP - General Family Practice 07/23/[address] [place] [address] [address] [place], [place] [address] Sheri Casey MD Pulmonary Disease 07/23/14 420 [facility] 276 [place], [place] [address] Alphonso Billy MD Cardiology 08/12/14 8 420 [place], [place] [address] Roland Holt MD Resident Student in [facility] 05/12/15 09/24/18 health care education/training program Amita Ryan MD MD Internal Medicine 12/19/15 909 [facility] [id number] [place] [address] Sid Lilly MD Orthopaedic Surgery 02/22/[address] [facility] [address] [place] [address] Neda Boland, NANDINI Nurse Coordinator Neurology 02/23/16 09/01/18 documented as of this encounter
--- OUTSIDE RECORDS SUMMARY | 2021-10-24 11:59 | XMS_ITS | Encounter Summary ---
:1955 Author Organization [facility] Address [address] [place] [address] Care Team Providers Name Role Phone Edison Tam MD Primary Care Provider Sheri Casey MD Unavailable Alphonso Billy MD Unavailable Roland Holt MD Unavailable Amita Ryan MD Unavailable Sid Lilly MD Unavailable [phone] Neda Boland RN Unavailable Reason for Visit Reason Comments Clinic Care Coordination - Follow-up F/u after EMG Encounter Details Date Type Department Care Team Description 05/10/2016 Care Coordination [facility] Neurology Kya, [facility] Care [address] [place] [address] NANDINI Red Coordination - 3rd Floor [phone] Follow-up (F/u after [place], [place] (Work) EMG) [phone] Social History Tobacco Use Types Packs/Day Years Used Date Former Smoker Cigarettes 1 18 11/11/1972 - 0 06/26/1981 Smokeless Tobacco: Former User Q uit: 09/20/1991 Alcohol Use Standard Drinks/Week Comments No 0 (1 standard drink = 0.6 oz pure alcoho l) Sex Assigned at Date Recorded Not on file documented as of this encounter Progress Notes Neda Boland, NANDINI - 05/10/2016 11:22 AM CST Images from the original note were not included. EMG follow up Received: Today ? Bushra Clarke APRN FARM MANAGEMENT AGENT Neda Boland, RN ? Looks like she never returned after her EMG to follow up. Please ask her to follow up. I will send her EMG report. Thank you 05/10/16: Called pt regarding above info. She does not wish to follow up at this time. IATIVE CARE PHYSICIAN documented in this encounter Plan of Treatment Not on filedocumented as of this encounter Visit Diagnoses Not on filedocumented in this encounter Additional Health Concerns Assessment Noted Time PHQ-9 Depression Total Score: 14 05/13/2015 7:50 AM CS T documented as of this encounter Care Teams Manufacturing Test Technician Relationship Specialty Start Date End Date Edison Tam, PCP - General Family Practice 07/23/[address] [place] [address] [address] [place], [place] [address] Sheri Casey MD Pulmonary Disease 07/23/[address] [place] [address] 276 [place], [place] [address] Alphonso Billy MD Cardiology 08/12/[address] [place] [address] Roland Holt MD Resident Student in [facility] 05/12/15 09/24/18 [facility] education/training program Amita Ryan MD MD Internal Medicine 12/19/[address] [place] [address] [id number] [place], [place] [address] Sid Lilly MD Orthopaedic Surgery 02/22/16 MD Alivia [facility] [address] [facility] [address] [place] [address] Neda Boland, NANDINI Nurse Coordinator Neurology 02/23/16 09/01/18 documented as of this encounter
--- OUTSIDE RECORDS SUMMARY | 2021-10-24 12:00 | XMS_ITS | Encounter Summary ---
:1955 Author Organization [facility] Address [address] [place] [address] Care Team Providers Name Role Phone Edison Tam MD Primary Care Provider Sheri Casey MD Unavailable Alphonso Billy MD Unavailable Roland Holt MD Unavailable Amita Ryan MD Unavailable Reason for Visit Reason Onset Date Comments Refill Request 12/28/2015 Encounter Details Date Type Department Care Team Description 12/28/[address] [facility] Gastroenterology and Lila Quiros RN Refill Request [facility] Clinic [address] [place], [place] [phone] Social History Tobacco Use Types Packs/Day [...] as of this encounter Visit Diagnoses Diagnosis B12 deficiency - Primary Other B-complex deficiencies documented in this encounter Additional Health Concerns Assessment Noted Time PHQ-9 Depression Total Score: 14 05/13/2015 7:50 AM CS T documented as of this encounter Care Teams Documentation Spec Relationship Specialty Start Date End Date Edison Tam MD PCP - General Family Practice 07/23/14 909 [facility] [address] [place], [place] [address] Sheri Casey MD MD Pulmonary Disease 07/23/14 420 [facility] [address] [place] [address] Alphonso Billy MD MD Cardiology 08/12/14 12/26/17 420 [place], [place] [address] Roland Holt MD Resident Student in [facility] 05/12/15 09/24/18 health [facility] education/training program Amita Ryan MD MD Internal Medicine 12/19/15 909 [facility] [id number] [place], [place] [address] documented as of this encounter
--- OUTSIDE RECORDS SUMMARY | 2021-10-24 12:00 | XMS_ITS | Encounter Summary ---
:1955 Author Organization [place] Address [address] [place] [address] Care Team Providers Name Role Phone Edison Tam MD Primary Care Provider Sheri Casey MD Unavailable Alphonso Billy MD Unavailable Roland Holt MD Unavailable Encounter Details Date Type Department Care Team Description 08/25/2015 Radiant Appointment Health Imaging Kamlesh Rodriguez's disease of [place] CT Laci Breaux, both small and [address] [facility] large intestine [address] [address] with fistula (H) 1st [address] [facility] [address] [place] [id number] Social History Tobacco Use Types Packs/Day Years [...] Name Priority Date/Time Associated Diagnosis Comme nts CT CYSTOGRAM WO & W Routine 08/25/2015 2:38 PM Crohn's disease of Results for this CONTRAST CDT both small and large procedu re are in intestine with the results fistula (H) section. documented in this encounter Results CT Cystogram (08/25/2015 2:38 PM CDT) Anatomical Region Laterality Modality Abdomen/Pelvis, SUBRAD CT BODY, UMP CT ABDOMEN PELVIS Computed Tomography Specimen (Source) Anatomical Location Collection Method / Collectio n Time Received Time / Laterality Volume Impressions 08/25/2015 4:14 PM CDT IMPRESSION: 1. No evidence of enterovesicular fistul a as questioned. 2. Tiny focus of gas within the vagina c ompatible with known chronic ano/rectovaginal fistula. 3. Prominent mesenteric lymph nodes are unchanged since 01/21/2012. I have personally reviewed the examinati on and initial interpretation and I agree with the findings. DAFNE ROGERS MD Narrative 08/25/2015 4:14 PM CDT EXAMINATION: CT CYSTOGRAM, 08/25/2015 2:38 PM TECHNIQUE: ??Helical CT images from the lung bases through the symphysis pubis were obtained with IV co ntrast. Contrast dose: filled pt with 500cc of saline/contrast mixture COMPARISON: MRI 07/12/2015, 07/10/2012 and C T from 01/21/2012. HISTORY: To diagnose enterovesical and e ntero versus colovaginal fistulas. Pt has severe rectal Crohn's d isease. Please give rectal contrast as well as urinary contrast ple ase. Please page me at [phone] to discuss before performin g study. Thanks!, Crohn's disease of both small and large intestin e with fistula FINDINGS: The bladder is well distended with contr ast. There is no evidence of contrast extravasation or fistula to the bowel. There is a tiny outpouching along the right peritrigonal aspect of the bladder (series 3 image 147), which is not in close appr oximation to the rectum or vagina. Nondependent focus of air within the bladder likely secondary to catheter. There is a tiny focus of gas within the vagina, corresponding to the position of the known chronic ano/rectov aginal fistula (series 5 image 37). Postoperative changes of right hemicolec kenyon. There is moderate colonic stool. No evidence of inflammato ry process involving the visualized bowel. Prominent mesenteric l ymph nodes including 1 cm short axis diameter mesenteric lymph nod e (series 3 image 16), not significantly changed since 01/31/2012. No adnexal mass. Unchanged right adnexal calcification. No free flu id. Stable bone island of the right acetabulum. Additional smaller sca ttered sclerotic foci also likely represent bone islands. Moderate degenerative changes in the lumbar spine. 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 Procedure Note Dafne Rogers MD - 08/25/2015For matting of this note might be different from the original. EXAMINATION: CT CYSTOGRAM, 08/25/2015 2:3 8 PM TECHNIQUE: Helical CT images from the quinten ng bases through the symphysis pubis were obtained with IV co ntrast. Contrast dose: filled pt with 500cc of saline/contrast mixture COMPARISON: MRI 07/12/2015, 07/10/2012 and C T from 01/21/2012. HISTORY: To diagnose enterovesical and e ntero versus colovaginal fistulas. Pt has severe rectal Crohn's d isease. Please give rectal contrast as well as urinary contrast ple ase. Please page me at [phone] to discuss before performin g study. Thanks!, Crohn's disease of both small and large intestin e with fistula FINDINGS: The bladder is well distended with contr ast. There is no evidence of contrast extravasation or fistula to the bowel. There is a tiny outpouching along the right peritrigonal aspect of the bladder (series 3 image 147), which is not in close appr oximation to the rectum or vagina. Nondependent focus of air within the bladder likely secondary to catheter. There is a tiny focus of gas within the vagina, corresponding to the position of the known chronic ano/rectov aginal fistula (series 5 image 37). Postoperative changes of right hemicolec kenyon. There is moderate colonic stool. No evidence of inflammato ry process involving the visualized bowel. Prominent mesenteric l ymph nodes including 1 cm short axis diameter mesenteric lymph nod e (series 3 image 16), not significantly changed since 01/31/2012. No adnexal mass. Unchanged right adnexal calcification. No free flu id. Stable bone island of the right acetabulum. Additional smaller sca ttered sclerotic foci also likely represent bone islands. Moderate degenerative changes in the lumbar spine. 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 IMPRESSION: 1. No evidence of enterovesicular fistul a as questioned. 2. Tiny focus of gas within the vagina c ompatible with known chronic ano/rectovaginal fistula. 3. Prominent mesenteric lymph nodes are unchanged since 01/21/2012. I have personally reviewed the examinati on and initial interpretation and I agree with the findings. 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 documented in this encounter Additional Health Concerns Assessment Noted Time PHQ-9 Depression Total Score: 14 05/13/2015 7:50 AM CS T documented as of this encounter Care Teams Track Repairer Helper Relationship Specialty Start Date End Date Edison Tam MD PCP - General Family Practice 07/23/14 [address] [facility] [address] [place], [place] [id number] Sheri Casey MD MD Pulmonary Disease 07/23/14 [address] [facility] [facility] [address] [place], [place] [id number] Alphonso Billy MD MD Cardiology 08/12/14 12/26/17 [address] [place], [place] [id number] Roland Holt MD Resident Student in [facility] 05/12/15 09/24/18 [facility] education/training program documented as of this encounter
--- OUTSIDE RECORDS SUMMARY | 2021-10-24 12:00 | XMS_ITS | Encounter Summary ---
:1955 Author Organization [place] Address [facility] [place] [address] Care Team Providers Name Role Phone Edison Tam MD Primary Care Provider Sheri Casey MD Unavailable Alphonso Billy MD Unavailable Roland Holt MD Unavailable Reason for Visit Reason Comments Eye Exam For Diabetes Referred from primary clinic Encounter Details Date Type Department Care Team Description 05/16/2015 Office Visit [facility] Divya Rodriguez MD [address] [place] [address] Hyperopia with astigmatism and presbyopi a, right (Primary Dx); Eye Clinic - Roland Holt MD [facility] [address] [facility] [address] [place] [address] Hypermetropia, left; [place] Presbyopia - Left Eye; [place] Posteri or subcapsular polar cataract, nonsenile, left; Building Senile nuclear sclerosis, bi lateral; [address] [facility] Dry eyes, bilateral; [facility] 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 (H) [place] [address] Social History Tobacco Use Types Packs/Day Years Used Date Former Smoker 1 18 12/01/1972 - 0 12/02/1991 Smokeless Tobacco: Former User Q uit: 09/20/1991 Alcohol Use Standard Drinks/Week Comments No 0 (1 standard drink = 0.6 oz pure alcoho l) Sex Assigned at Date Recorded Not on file documented as of this encounter Progress Notes Roland Holt MD - 05/16/2015 1:16 PM CST HPI Maria E Coley is a 59 year old female with h/o of Crohn's disease and chronic steroid use. Patient also informs that she had a chronic low level carbon monoxide poisoning. The patient reports a mild increase in blurred vision over the past year. She does not report any flashes, pain, irritation. PMH: Crohn's, with chronic steroid use. 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 Ocular history: Wears glasses A1c level 5.4 05/12/15 Assessment & Plan 1. Diabetes, related to chronic steroid use. A1c 5.4 in 05/12/15 No diabetic retinopathy -Recommend good blood sugar, pressure, lipid control. 2. Cataracts, both eyes Has Nuclear sclerotic cataract Both eyes with start of Posterior subcapsular cataract (PSC) left eye. Only mildly visually significant, and patient would like to continue to observe. -Monitor. 3. Refractive error, both eyes Mild changes in prescription best corrected visual acuity is 20/25 and 20/20. -New prescription provided today. 4. 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 -Recommend ocular hygiene, warm compresses nightly, and artificial tears 4-6 times daily. Patient disposition: Return in about 1 year (around 05/15/2016) for Yearly eye exam (diabetic from steroid use). . or sooner as needed. Roland Holt M.D. Resident Physician, PGY-3 Department of Ophthalmology & Visual Neurosciences Teaching statement: I have confirmed the content of the chief complaint, history of present illness, review of systems, and past medical/surgical history sections and edited the information as needed. I have interviewed and examined the patient and confirm the pertinent findings. I have discussed thecase with the resident/fellow and agree with the findings and plan as documented. Divya [place] MD [facility] Department of Ophthalmology and Visual Neurosciences [email or web address] Pager [phone] SLICER documented in this encounter Nursing Notes Romina Heaton COMT - 05/16/2015 12:56 PM CST Chief Complaints and History of Present Illnesses Patient presents with ??? New Patient Evaluation for cataracts and trouble seeing in the distance. HPI Symptoms: Blurred vision (Comment: Pt reports having trouble seeing the distance x over the past 2-3 months. ) No floaters Flashes (Comment: Rarely see flashes in both eyes. ) No glare No halos No redness Dryness (Comment: Pt reports dryness in both eyes, uses artificial tears ([facility] [employer]) which seems to help. ) Do you have eye pain now?: No Comments: Pt is on Prednisone tablets, wants to be evaluated for development of cataracts. Pt reports black spot in the right eye moving with her focus. JAYNA Coughlin, May 16, 2015,12:22 PM Romina TSILL May 16, 2015 12:56 PM SLICER documented in this encounter Plan of Treatment Not on filedocumented as of this encounter Visit Diagnoses Diagnosis Hyperopia with astigmatism and presbyopi a, right - Primary Hypermetropia, left Presbyopia - Left Eye Presbyopia Posterior subcapsular polar cataract, no nsenile, left Senile nuclear sclerosis, bilateral Dry eyes, bilateral Tear film insufficiency, unspecified 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 (H) Secondary diabetes mellitus with other s pecified manifestations, not stated as uncontrolled, or unspecified documented in this encounter Additional Health Concerns Assessment Noted Time PHQ-9 Depression Total Score: 14 05/13/2015 7:50 AM MILAD T documented as of this encounter Care Teams Administrative Executive Relationship Specialty Start Date End Date Edison Tam MD PCP - General Family Practice 07/23/[address] [address] Sheri Casey MD MD Pulmonary Disease 07/23/14 [address] [facility] [address] [place] [address] Alphonso Billy MD MD Cardiology 08/12/14 12/26/17 [address] [place], [place] [phone] Roland Holt MD Resident Student in [facility] 05/12/15 09/24/18 [facility] education/training program documented as of this encounter
--- OUTSIDE RECORDS SUMMARY | 2021-10-24 12:00 | XMS_ITS | Encounter Summary ---
:1955 Author Organization [place] Address [address] [place] [address] Care Team Providers Name Role Phone Edison Tam MD Primary Care Provider Sheri Casey MD Unavailable Alphonso Billy MD Unavailable Roland Holt MD Unavailable Reason for Visit Reason Onset Date Comments Pt. Information/instruction 09/06/2015 Encounter Details Date Type Department Care Team Description 09/06/2015 Telephone [facility] Laci Rodriguez [facility] MD Saeid Information/instructio [address] [place] [address] [phone] Social History Tobacco Use Types Packs/Day Years [...] documented as of this encounter Care Teams Network Applications Specialist Relationship Specialty Start Date End Date Edison Tam MD PCP - General Family Practice 07/23/14 909 [facility] [address] [place] [address] Sheri Casey MD MD Pulmonary Disease 07/23/14 420 [facility] [address] [place] [address] Alphonso Billy MD MD Cardiology 08/12/14 12/26/17 [address] [place] [address] Roland Holt MD Resident Student in [facility] 05/12/15 09/24/18 health care education/training program documented as of this encounter
--- OUTSIDE RECORDS SUMMARY | 2021-10-24 12:00 | XMS_ITS | Encounter Summary ---
:1955 Author Organization [facility] Address [address] [place] [address] Care Team Providers Name Role Phone Edison Tam MD Primary Care Provider Sheri Casey MD Unavailable Alphonso Billy MD Unavailable Roland Holt MD Unavailable Reason for Visit Reason Comments GI Problem Maria E is here today to see Dr. Salazar about her Chron's Encounter Details Date Type Department Care Team Description 12/02/2015 Office Visit [facility] Charan Salazar MD Crohn's disease of [facility] [address] [place] [address] both small and large [facility] [place], [place] intest ine with [facility] [place] [id number] complication (H) 9 [facility] [phone] (Primary Dx) [place], [place] (Work) [address] [phone] Social History Tobacco Use Types Packs/Day Years [...] Sign Reading Time Taken Comments Blood Pressure 105/73 12/02/2015 10:53 AM CDT Pulse 79 12/02/2015 10:53 AM CDT Temperature - - Respiratory Rate 16 12/02/2015 10:53 AM CDT Oxygen Saturation 97% 12/02/2015 10:53 AM CDT ra Inhaled Oxygen Concentration - - Weight 56.7 kg (125 lb) 12/02/2015 10:53 AM CDT Height 157.5 cm (5' 2) 12/02/2015 10:53 AM CDT Body Mass Index 22.86 12/02/2015 10:53 AM CDT documented in this encounter Patient Instructions Patient InstructionsCharan Salazar MD - 12/02/2015 11:17 AM CDT I've included a brief summary of our discussion and care plan from today's visit below. Please review this information with your primary care provider. 1.?? I'm very pleased with the reassuring Pelvis MRI and Colonoscopy findings in the setting of yourknown complicated chronic fistulizing ileocolonic + perianal Crohn's disease - this is great to see,keep up the good work! - Continue the prednisone 7mg daily as ordered by Endocrine for now, no changes to your overall IBD treatment regimen at this time. 2. Recommend routine studies including nutritional and inflammatory markers as we discussed today. - Recommend having the following studies checked at least 1-2 times/year for disease and medication safety monitoring: BMP, LFT, CBC with differential, ESR/CRP. - Continue bone health monitoring as recommended by your PCP, keep up the great work with exercise and activity! 3. Continue to monitor for the danger signs/symptoms we reviewed together today: worsening abdominalpain, worsening diarrhea, obstructive symptoms (nausea/vomiting, abdominal distention, inability to pass stool/flatus), blood mixed into stools, persistent fevers/chills, progressive anemia (particulary with iron deficiency), worsening urinary urgency or vaginal discomfort, unexpected weight loss, etc. - Contact us via [employer] should these symptoms occur, particularly as we may advise further evaluation accordingly. 4. Return to GI Clinic with me or my GI Physician Biology Tutor (Mynor Reinoso) in 1 year to review your progress, sooner if symptomatic. - If you are unable to schedule this follow-up appointment today, please contact Lisseth Guidry at within the next week to help set up this necessary appointment. PREVENTIVE CARE IN INFLAMMATORY BOWEL DISEASE - Strongly recommend tobacco abstinence. - Recommend considering daily calcium + Vitamin D supplementation. - Recommend age-appropriate cancer surveillance: - Yearly Dermatology visit for visual skin inspection if immunosuppressed, monthly skin self-check after bathing. - Dysplasia surveillance colonoscopy every 1-2 years in patients with Crohn's colitis or ulcerative colitis >8-10 years since diagnosis. - (For men and women ages 9-26) Consideration for HPV vaccination, should be discussed with your PCPfurther if you feel you'd like to pursue this. - (For women) Annual Pap smears if immunosuppressed, mammogram when deemed appropriate by your PCP. - Recommend follow-up with your PCP to ensure the following vaccinations have been updated: Hepatitis A/B, Tdap, Pneumovax, yearly flu SHOT, Meningococcal meningitis (if college-age), etc. - Would also recommend VZV and MMR titers be checked to confirm immunity. - Live/attenuated vaccines (such as the INTRANASAL flu vaccine) should not be administered to you, except in very specific instances which you should discuss with your GI provider first. - Family planning: If you or your partner are planning to become , please schedule time withus to discuss issues surrounding IBD and Fertility/. It was a pleasure seeing you in clinic today - please be in touch if there are any further questionsthat arise following today's visit. During business hours, you may reach Clinic Nurse Triage Line [phone]. For urgent/emergent questions after business hours, you may reach the on-call GI Fellow by contacting the [facility] doweling machine operator at . Any benign/non-urgent test results are usually communicated via letter or MyChart message within 1-2weeks after completion. Urgent results (those that require a change in the previously-discussed careplan) are usually communicated via a phone call once available from our clinic staff to discuss the results and the next steps in your evaluation. I recommend signing up for [employer] access if you have not already done so and are comfortable with using a computer. This allows for online access to your lab results and also helps you communicate efficiently with my clinic should any questions arise in your care. We have Financial Counseling services available through our clinic. If you have questions about yourinsurance coverage or payment responsibilities, particularly before you undergo any tests or procedures, please let us know and we can arrange a consultation accordingly to help you make informed decisions about your healthcare. Sincerely, Charan Salazar MD Tour Bus Driver/Guide [facility] - Department of Medicine Division of Gastroenterology documented in this encounter Progress Notes Charan Salazar MD - 12/05/2015 9:25 AM CDT GI CLINIC VISIT CC/REFERRING PROVIDER: Edison Tam REASON FOR CONSULTATION: Crohn's disease HPI: 60 year old female w/ h/o complicated fistulizing Crohn's disease since age 13 (chronic enterovesicular/rectovaginal/perianal fistulae) s/p ileocecal resection w/ primary anastomosis 1985 and repeat limited ileal resection for obstructive sxs 1987, previous exposure to IFX/ADA (failed) - AZA/6MP ( intolerance) - MTX (last used 2011, tolerated well but lost to f/u), osteoporosis, chronic steroid dependence w/ long-standing steroid 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 Doing well overall, denies any new obstructive changes or worsening outputs from her known chronic fistulae following recent evaluation by [facility]. Denies any tenesmus or insecurity passing flatus, no fecal incontinence or new perianal/nocturnal sx s noted. Denies any N/V/F/C/DONNELLY/NS or other const/syst/cardiopulmonary sxs, no BRBPR/melena/urinary changes, no unintentional wt loss or appetite/satiety changes. No other bowel/bladder habit changes, no dysphagia/odynophagia. No jaundice/icterus/pruritus, no acholic stools/steatorrhea, no new lumps/bumps, no jt pain/oral ulcer/rash/eye sxs noted.\ ROS: 10pt ROS performed and otherwise negative. PERTINENT PAST MEDICAL/SURGICAL HISTORY: As noted above. PERTINENT MEDICATIONS: - PDN 7mg PO QDAY Medications reviewed with patient today, see Medication List/Assessment for details. No other NSAID/anticoagulation reported by patient. No other OTC/herbal/supplements reported by patient. SOCIAL HISTORY: Tobacco: former smoker, none currently. PHYSICAL EXAMINATION: Vitals reviewed, AFVSS Wt 125# today (stable) Gen: aaox3, cooperative, pleasant, not diaphoretic, nad HEENT: ncat, neck supple, no clad/sclad, normal op w/o ulcer/exudate, anicteric, mmm Resp/CV without acute findings, not dyspneic/tachycardic Abd: +nabs, soft, nt, nd, no peritoneal s/s noted Ext: no c/c/e Skin: warm, perfused, no jaundice Neuro: grossly intact, no asterixis noted PERTINENT STUDIES: Colonoscopy 09/15/15 ([facility], [facility]): +minimal patchy granularity throughout colon to IC anastomosis and TI, +mild traversible stenosis at the IC anastomosis, +chronic perianal fistula. No adenomatous lesions identified. Surgical Pathology 09/15/15 A: SMALL INTESTINE, ILEUM, BIOPSIES: - Intestinal mucosa with no significant histologic abnormalities B: LARGE INTESTINE, TRANSVERSE COLON, BIOPSIES: - Crypt architecture distortion, consistent with healed prior injury - Negative for active inflammation or dysplasia C: LARGE INTESTINE, DESCENDING COLON, BIOPSIES: - Crypt architecture distortion, consistent with healed prior injury - Negative for active inflammation or dysplasia D: LARGE INTESTINE, RECTOSIGMOID COLON, BIOPSIES: - Colonic mucosa with no significant histologic abnormalities - No evidence of active or chronic colitis CT Cystogram 08/25/15 1. No evidence of enterovesicular fistula as questioned. 2. Tiny focus of gas within the vagina compatible with known chronic ano/rectovaginal fistula. 3. Prominent mesenteric lymph nodes are unchanged since 01/21/2012. Pelvic MRI 07/12/15 FINDINGS: Anovaginal fistula is again seen, better demonstrated on this small [id number] pelvic study than on 07/10/2012. It is best seen on the coronal postcontrast images (series 19 image 15-20). This is contiguous with an intersphincteric perianal fistula which appears to contact the skin surface within the medial cleft (series 19 image 19, series 20 image 94). There is no direct evidence of enterovesical fistula although one cannot be completely ruled out. No air within the bladder. Small bladder diverticulum is again seen. ?? Limited evaluation of the rectum, colon and small bowel are unremarkable, status post ileocecectomy. The uterus and ovaries are within normal limits. No lymphadenopathy. No suspicious bone lesions. ? IMPRESSION: ?? 1. Redemonstration of anovaginal fistula and contiguous intersphincteric perianal fistula. ?? 2. No evidence of enterovesical fistula although one cannot be completely ruled out. Cystogram could be performed if further evaluation is desired. ASSESSMENT/PLAN: 1. Complex chronic fistulizing ileocolonic + perianal Crohn's disease, chronic steroid dependence but otherwise stable and clinically quiescent disease - continue supportive care for now, particularly in the absence of worsening intestinal or fistula activity by evaluation to-date 1.?? I'm very pleased with the reassuring Pelvis MRI and Colonoscopy findings in the setting of yourknown complicated chronic fistulizing ileocolonic + perianal Crohn's disease - this is great to see,keep up the good work! - Continue the prednisone 7mg daily as ordered by Endocrine for now, no changes to your overall IBD treatment regimen at this time. 2. Recommend routine studies including nutritional and inflammatory markers as we discussed today. - Recommend having the following studies checked at least 1-2 times/year for disease and medication safety monitoring: BMP, LFT, CBC with differential, ESR/CRP. - Continue bone health monitoring as recommended by your PCP, keep up the great work with exercise and activity! 3. Continue to monitor for the danger signs/symptoms we reviewed together today:?? worsening abdominal pain, worsening diarrhea, obstructive symptoms (nausea/vomiting, abdominal distention, inability to pass stool/flatus), blood mixed into stools, persistent fevers/chills, progressive anemia (particulary with iron deficiency), worsening urinary urgency or vaginal discomfort, unexpected weight loss, etc. - Contact us via MyChart should these symptoms occur, particularly as we may advise further evaluation accordingly. 2. Colorectal Cancer Screening No PSC or known FH CRC, colonoscopy 09/2015 through the IC anastomosis without adenomatous lesions ordysplasia. If dysplasia surveillance pursued (pt will consider this further if she would like to partake), would recommend repeat surveillance in 3yrs unless symptomatic sooner (particularly given evidence of inactive, and possibly burned-out, colonic Crohn's disease). RTC 1 year with me or GI PA, sooner if symptomatic. Thank you for this consultation. It was a pleasure to participate in the care of this patient; please contact us with any further questions. Charan Salazar MD Tour Bus Driver/Guidedigital printer operator [facility] - Department of Medicine Division of Gastroenterology documented in this encounter Nursing Notes Ashley Cotto CMA - 12/02/2015 3:27 PM CDT Chief Complaint Patient presents with ??? GI Problem Maria E is here today to see Dr. 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 documented in this encounter Additional Health Concerns Assessment Noted Time PHQ-9 Depression Total Score: 14 05/13/2015 7:50 AM CS T documented as of this encounter Care Teams Timber Girdler Relationship Specialty Start Date End Date Edison Tam MD PCP - General Family Practice 07/23/14 9[address] [facility] 4 [place] [address] Sheri Casey MD MD Pulmonary Disease 07/23/14 420 [facility] [address] [place] [address] Alphonso Billy MD MD Cardiology 08/12/14 12/26/17 420 [place], [place] [id number] Roland Holt MD Resident Student in [facility] 05/12/15 09/24/18 [facility] education/training program documented as of this encounter
--- OUTSIDE RECORDS SUMMARY | 2021-10-24 12:00 | XMS_ITS | Encounter Summary ---
:1955 Author Organization [facility] Address [address] [place] [id number] Care Team Providers Name Role Phone Edison Tam MD Primary Care Provider Sheri Casey MD Unavailable Alphonso Billy MD Unavailable Roland Holt MD Unavailable Reason for Visit Reason Comments Other Encounter Details Date Type Department Care Team Description 07/15/2015 Telephone [facility] Colon and Rectal Tata Rodriguez, Surgery [address] [place], [place] [id number] [place] [address] [phone] Social History Tobacco Use Types Packs/Day Years Used Date Former Smoker Cigarettes 1 18 11/11/1972 - 0 06/26/1981 Smokeless Tobacco: Former User Q uit: 09/20/1991 Alcohol Use Standard Drinks/Week Comments No 0 (1 standard drink = 0.6 oz pure alcoho l) Sex Assigned at Date Recorded Not on file documented as of this encounter Miscellaneous Notes Telephone Encounter - TimothyNing V - 07/15/2015 1:38 PM CDT Per task, called and spoke with patient. Patient is scheduled for 08/22/15 at 11:00 am. Added patientto cancellation list for sooner appointment. Patient confirms check-in location. Telephone Encounter - Ning Aguirre V - 07/15/2015 1:38 PM CDT ----- Message from Shady Marcos RN sent at 07/14/2015 9:56 AM CDT ----- Regarding: FW: [facility] Surgery referral Pt aware that you will be calling her. Thanks shady ----- Message ----- From: Charan Salazar MD Sent: 07/14/2015 9:17 AM To: Shady Marcos RN Subject: [facility] Surgery referral Referral to [facility] - see Result Note from MR Pelvis 07/12/15. Would prefer her to be seen in the next 4-6wks if possible (sooner if canceled spot available). Thanks! JA documented in this encounter Plan of Treatment Not on filedocumented as of this encounter Visit Diagnoses Not on filedocumented in this encounter Additional Health Concerns Assessment Noted Time PHQ-9 Depression Total Score: 14 05/13/2015 7:50 AM CS T documented as of this encounter Care Teams Line Up Examiner Relationship Specialty Start Date End Date Edison Tam MD PCP - General Family Practice 07/23/14 909 [facility] 4 [place], [place] [id number] Sheri Casey MD MD Pulmonary Disease 07/23/14 420 [facility] [address] [place], [place] [address] Alphonso Billy MD MD Cardiology 08/12/14 12/26/17 420 [place], [place] [address] Roland Holt MD Resident Student in [facility] 05/12/15 09/24/18 [place] [phone] (Fax) education/training program documented as of this encounter
--- OUTSIDE RECORDS SUMMARY | 2021-10-24 12:00 | XMS_ITS | Encounter Summary ---
:1955 Author Organization [facility] Address [address] [place] [address] Care Team Providers Name Role Phone Edison Olivas MD Primary Care Provider Sheri Casey MD Unavailable Alphonso Billy MD Unavailable Roland Holt MD Unavailable Reason for Visit Reason Comments Consult anovaginala fistula Encounter Details Date Type Department Care Team Description 08/22/2015 Office Visit [facility] Colon and Laci Rodriguez Rec tovaginal fistula (Primary Dx); Rectal Surgery MD Saeid Crohn's disease of both small and large intestine with fistula (H) [address] 4th Floor [facility] [address] [place] [address] [phone] Social History Tobacco Use Types Packs/Day Years [...] Sign Reading Time Taken Comments Blood Pressure 95/62 08/22/2015 10:57 AM CDT Pulse 78 08/22/2015 10:57 AM CDT Temperature - - Respiratory Rate - - Oxygen Saturation 94% 08/22/2015 10:57 AM CDT Inhaled Oxygen Concentration - - Weight 59.2 kg (130 lb 8 oz) 08/22/2015 10:57 AM CDT Height 157.5 cm (5' 2) 08/22/2015 10:57 AM CDT Body Mass Index 23.87 08/22/2015 10:57 AM CDT documented in this encounter Progress Notes Laci Rodriguez MD - 08/21/2015 10:54 AM CDT Colon and Rectal Surgery Clinic Note RE: Maria Eolamide Coley. : 1955. GIDEON: 08/22/2015. Reason for visit: Crohn's anovaginal fistula. HPI: 59 y/o F with h/o complicated fistulizing Crohn's disease since age 13 (chronic enterovesicular/rectovaginal/perianal fistulae) s/p ileocecal resection in 1985 and repeat limited ileal resection for obstructive symptoms in 1987. Previous exposure to IFX/ADA (failed) - AZA/6MP (intolerance) - MTX (last used 2011, tolerated well but lost to f/u), and chronic steroid dependence w/ long- standing steroid exposure since age 13. Presents now with increased vaginal leakage of stool in the recent months, associated with intermittent pneumaturia, dysuria, and hematuria. Denies fevers, chills, or abdominal pain. Reports having 1-2 soft BM/day w/o blood. Also has daily fecal seepage and incontinence and u ses depends. Denies anal pain or weight loss. Current Crohn's meds: Prednisone 7mg QD. Alb 3.9. No previous pregnancies. Previous anorectal operations: 2 anal fistula surgeries in the 70's and 's yoana hemorrhoidectomy in the s in [place]. Last endoscopic evaluation was in 08/2012: Flex Sig: - Preparation of the colon was unsatisfactory. - The perianal exam was abnormal. Findings include evidence of previous hemorrhoidectomy and somewhat anomalous separation between the anal outlet and inferior portion of the vaginal opening. No evidence of active perianal Crohn's disease on inspection. A double-barrel chronic fistula was found in the descending colon, no overt evidence of surrounding disease activity. A large amount of solid brown stool was found in the distal transverse colon, precluding further visualization. Procedure was aborted accordingly, with close mucosal inspection and biopsies upon withdrawal. EGD: Normal esophagus. This was biopsied from the mid-esophagus to rule out IBD. Small hiatus hernia. Gastric mucosal abnormality characterized by mild antral erythema. This was biopsied from the body and antrum to rule out IBD. Stomach was otherwise normal on careful exam. Nodular mucosa in the duodenal bulb. This was biopsied to rule out IBD. Normal 2nd part of the duodenum. This was biopsied. Pathology: FINAL DIAGNOSIS: A. ??Large intestine, colon, endoscopic biopsy ? - ??Colonic mucosa with no histopathologic abnormality - ??No evidence of active or chronic colitis B. ??Small intestine, duodenum, endoscopic biopsy ? - ??No histopathologic abnormality - ??No significant acute or chronic inflammation - ??No evidence of granulomas or ulcers - ??No microorganisms C. ??Stomach, body, endoscopic biopsy ? - ??No histopathologic abnormality - ??No evidence of gastritis - ??No evidence of granulomas or ulcers - ??No microorganisms. D. ??Esophagus, endoscopic biopsy ? - ??Squamous mucosa with mild chronic inflammation and basal cell hyperplasia, suggestive of reflux - ??Hyperkeratosis - ??No acute inflammation or viral organisms identified Recent pelvic MR showed: Anovaginal fistula is again seen, better demonstrated on this small [id number] pelvic study than on 07/10/2012. It is [...] bladder. Small bladder diverticulum is again seen. Medical history: Past Medical History Diagnosis Date ??? [...] ??? 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 History of blood transfusion N/A [...] Chronic diarrhea ??? Fecal incontinence thru fistulas Surgical history: Past Surgical History Procedure Laterality Date ??? Appendectomy open 1985 ??? Left ovary removal was removed during a resection ??? 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 Sigmoidectomy left ovary removal ??? Small bowel resection 1985 colon and distal ilium ??? Back surgery 2009 L4-L5 laminectomy ??? Back surgery 2010 L5 [...] Location: US OR ??? Biopsy yes ??? Stock Feeder surgery mass on remaining ovary Family history: Family History Problem Relation Age of Onset [...] family hx of ??? Asthma Brother ??? Diabetes Paternal Grandmother ??? Depression Mother ??? Depression Sister ??? Depression Sister ??? Anxiety Disorder Sister ??? Anxiety Disorder Sister ??? Substance Abuse Brother ??? Asthma Brother ??? Thyroid Disease Mother ??? Thyroid Disease Sister ??? Thyroid Disease Sister Medications: Current Outpatient Prescriptions Medication Sig Dispense Refill ??? venlafaxine (EFFEXOR-ER) 150 MG TB24 150 mg ??? propranolol (INDERAL) 10 MG tablet Take 1 tablet (10 mg) by mouth daily 90 tablet 3 ??? nystatin (MYCOSTATIN) 279769 UNIT/ML suspension Take 5 mLs (500,000 Units) by mouth 4 times daily for 14 days 280 mL 6 ??? rOPINIRole (REQUIP) 1 MG tablet Take 1 tablet (1 mg) by mouth At Bedtime May take 1/2 tab additional prn once daily. 90 tablet 3 ??? predniSONE (DELTASONE) 5 MG tablet (total daily dose 7 mg/day) 90 tablet 3 ??? predniSONE (DELTASONE) 1 MG tablet Take 2 tablets (2 mg) by mouth daily With the 5mg tab for total of 7mg daily. 180 tablet 3 ??? Levothyroxine Sodium 50 MCG CAPS Take 1 tablet by mouth daily 90 capsule 1 ??? ORDER FOR DME, SET TO LOCAL PRINT, Equipment being ordered: portable Oxygen with nasal cannula at 1-2 liters 1 Can 3 ??? UNABLE TO FIND 3 times daily MEDICATION NAME:Burmese herbs ??? cyanocobalamin (VITAMIN B12) 1000 MCG/ML injection Inject 1 mL (1,000 mcg) into the muscle every30 days 1 mL 11 ??? L-Lysine 500 MG TABS Take 1 tablet by mouth daily ??? ORDER FOR DME Injection Supplies for Vitamin B12: 3cc syringes w/ 27 gauge needles, 1 inch length 12 each 0 ??? cholecalciferol (VITAMIN D) 1000 UNIT tablet Take 1 tablet (1,000 Units) by mouth daily Discontinue Vitamin D 51291 100 tablet 3 ??? acetaminophen (TYLENOL) 500 MG tablet Take 500-1,000 mg by mouth every 8 hours as needed ??? Potassium Chloride CR 8 MEQ CPCR Take 16 mEq by mouth daily NEED APPT WITH DR. OLIVAS FOR REFILLS. 30 capsule 0 ??? buPROPion (WELLBUTRIN SR) 150 MG 12 hr tablet Take 300 mg by mouth 2 times daily ??? ALPRAZolam (XANAX) 0.5 MG tablet Take [...] 1 tablet by mouth 2 times daily. Allergies: Allergies Allergen Reactions ??? Humira Rash ??? [...] lethargy ??? Tramadol Itching and Rash Social history: History Substance Use Topics ??? Smoking status: Former Smoker -- 1.00 packs/day for 18 years Types: Cigarettes Start date: 11/11/1972 Quit date: 06/26/1981 ??? Smokeless tobacco: Former User Quit date: 09/20/1991 ??? Alcohol Use: No Marital status: single. Physical Examination: BP 95/62 mmHg Pulse 78 Ht 5' 2 Wt 130 lb 8 oz BMI 23.86 kg/m2 SpO2 94% General: Well hydrated. No acute distress. HEENT: Normocephalic, EOM's intact. Non icteric conjunctiva. EAC's with no abnormalities. Oral mucosa well hydrated, with no exudates visualized. No cervical adenopathy palpated. Chest: RRR. S1 and S2 normal. No murmurs. Good breath sounds bilaterally with no rhonchi or wheezing. Abdomen: Soft, slightly distended, NT. No inguinal adenopathy palpated. Extremities: Normotrophic. Distal pulses intact. ROM intact. Perianal external examination: Perianal skin: abnormal left anterior chronic appearing sinus that measures [id number] with clear mucous drainage, and associated with anterior scar at the anal verge. This sinus is creating a cloaca-likedeformity at the anal opening, between the anus and vagina. Posterior midline scar. No active fissure. Urethral meatus with mild irritation. Eversion of buttocks: There was not evidence of an anal fissure. Details: N/A. Skin tags or external hemorrhoids: No. Minor posterior-based mucosal prolapse. Digital rectal examination: Was performed. Sphincter tone: Fair. Palpable lesions: No. Other: A small rectocele was appreciated on bearing down. Bimanual examination: was performed. No clear evidence of a rectovaginal fistula. Anoscopy: Was performed. Hemorrhoids: No significant internal hemorrhoids. Lesions: No. Investigations: None. Procedures: None. ASSESSMENT 59 y/o F with symptomatic perianal Crohn's disease. No clear evidence of recto- or ano-vaginal fistula on exam today. Has large sinus/defect that is creating a cloaca-like deformity. MR showed no active SB or colonic inflammation, stricture, or enterovesical fistula. PLAN 1. Schedule for full colonoscopy and CT cystogram (will need to give retal and urinary contrast to define anatomy of fistulas). I am suspicious of an enterovaginal/enterovesical fistula. This would likely require an abdominal approach, although pt is not interested in any more abdominal operations. Ifshe has a high rectourethral fistula, will need Urology referral. Time spent: 60 minutes. >50% spent in discussing, counseling and coordinating care. Laci Rodriguez M.D., M.Sc. [facility] Division of Colon and Rectal Surgery [facility] Referring Provider: Charan Salazar MD [facility] [address] [place] [id number] Primary Care Provider: Edison Olivas documented in this encounter Nursing Notes Edison Moe CMA - 08/22/2015 10:59 AM CDT Chief Complaint Patient presents with ??? Consult anovaginala fistula Filed Vitals: 08/22/15 1057 BP: 95/62 Pulse: 78 Height: 5' 2 Weight: 130 lb 8 oz SpO2: 94% Body mass index is 23.86 kg/(m^2). Edison Moe CMA documented in this encounter Plan of Treatment Not on filedocumented as of this encounter Results CT Cystogram (08/25/2015 2:38 [...] interpretation and I agree with the findings. SANTY ROGERS MD Narrative 08/25/2015 4:14 PM CDT [...] contrast ple ase. Please page me at [phone] to discuss before performin g study. Thanks!, [...] s defects without significant listhesis. Procedure Note Santy Rogers MD - 08/25/2015For matting of this [...] contrast ple ase. Please page me at [phone] to discuss before performin g study. Thanks!, [...] interpretation and I agree with the findings. 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 documented in this encounter Additional Health Concerns Assessment Noted Time PHQ-9 Depression Total Score: 14 05/13/2015 7:50 AM CS T documented as of this encounter Care Teams Hand Tube Winder Relationship Specialty Start Date End Date Edison Olivas MD PCP - General Family Practice 07/23/14 [address] [facility] [address] [place] [address] Sheri Casey MD MD Pulmonary Disease 07/23/14 [address] [facility] [address] [place] [address] Alphonso Billy MD MD Cardiology 08/12/14 12/26/17 [address] [place] [address] Roland Holt MD Resident Student in [facility] 05/12/15 09/24/18 [facility] education/training program documented as of this encounter
--- OUTSIDE RECORDS SUMMARY | 2021-10-24 12:00 | XMS_ITS | Encounter Summary ---
:1955 Author Organization [facility] Address [address] [place] [address] Care Team Providers Name Role Phone Edison Tam MD Primary Care Provider Sheri Casey MD Unavailable Alphonso Billy MD Unavailable Encounter Details Date Type Department Care Team Description 12/01/2014 Radiant Appointment [facility] normal chest x-ray Center [facility] 1st Floor, Clinic [address] [place], [place] [address] Social History Tobacco Use Types Packs/Day Years Used Date Former Smoker 1 18 12/01/1972 - 0 12/02/1991 Smokeless Tobacco: Former User Q uit: 09/20/1991 Alcohol Use Standard Drinks/Week Comments No 0 (1 standard drink = 0.6 oz pure alcoho l) Sex Assigned at Date Recorded Not on file documented as of this encounter Progress Notes Sheri Casey MD - 12/02/2014 8:03 AM CDT Quick Note: Notified via [employer] documented in this encounter Plan of Treatment Not on filedocumented as of this encounter Procedures Procedure Name Priority Date/Time Associated Diagnosis Comme nts CT CHEST W/O Routine 12/01/2014 2:18 PM Abnormal chest x-ray R esults for this CONTRAST CDT procedure are i n the results section. documented in this encounter Results CT Chest w/o contrast (12/01/2014 2:18 PM CDT) Anatomical Region Laterality Modality Chest, SUBRAD CT BODY, UMP CT CHEST Comp uted Tomography Specimen (Source) Anatomical Location Collection Method / Collectio n Time Received Time / Laterality Volume Impressions 12/01/2014 11:03 PM CDT Impression: 1. No suspicious pulmonary nodules. 2. Healing fracture of the anterior righ t third rib corresponds to opacity seen on x-ray. 3. Tiny left breast nodule. Consider matt mographic correlation. I have personally reviewed the examinati on and initial interpretation and I agree with the findings. JAKE WEATHERS MD Narrative 12/01/2014 11:[address] chest without contrast, 12/01/2014 2:18 PM. Comparison: Chest x-ray on 12/01/2014. History: ?? abnormal chest film; former smoker, right upper lobe opacity not seen on 07/25/2012. Technique: Helical CT images from the th oracic inlet through the upper abdomen were obtained without intravenou s contrast, with axial and coronal reformations. Images are display ed at 1 and 5 mm intervals. Images reviewed in lung, soft tissue, an d bone windows. Total DLP: 130 mGy*cm. Findings: Lungs: Central tracheobronchial tree is patent. No pneumothorax or pleural effusion. No evidence for active of pulmonary infection. Calcified right granuloma. No suspicious pulmonary nodules. Tiny left breast nodule. Chest: Cardiac size is not enlarged. No pericardial effusion. Atherosclerotic calcifications of the th oracic aorta. Main pulmonary arteries within normal limits. Nonspecif ic prominent pretracheal lymph node measures 11 mm in short axis dimens ion. No hilar lymphadenopathy. Thyroid and esophagus are unremarkable. Upper abdomen: Partial view of the upper abdomen. Accessory splenule. Bones: Healing fractures of the anterior second and third ribs on the right. Healing callus on the third rib c orresponds to opacity seen on x-ray. Degenerative changes of thoracic spine. No suspicious osseous lesions. Procedure Note Jake Weathers MD - 12/01/2014F ormatting of this note might be different from the original. CT chest without contrast, 12/01/2014 2:1 8 PM. Comparison: Chest x-ray on 12/01/2014. History: abnormal chest film; former smo ker, right upper lobe opacity not seen on 07/25/2012. Technique: Helical CT images from the th oracic inlet through the upper abdomen were obtained without intravenou s contrast, with axial and coronal reformations. Images are display ed at 1 and 5 mm intervals. Images reviewed in lung, soft tissue, an d bone windows. Total DLP: 130 mGy*cm. Findings: Lungs: Central tracheobronchial tree is patent. No pneumothorax or pleural effusion. No evidence for active of pulmonary infection. Calcified right granuloma. No suspicious pulmonary nodules. Tiny left breast nodule. Chest: Cardiac size is not enlarged. No pericardial effusion. Atherosclerotic calcifications of the th oracic aorta. Main pulmonary arteries within normal limits. Nonspecif ic prominent pretracheal lymph node measures 11 mm in short axis dimens ion. No hilar lymphadenopathy. Thyroid and esophagus are unremarkable. Upper abdomen: Partial view of the upper abdomen. Accessory splenule. Bones: Healing fractures of the anterior second and third ribs on the right. Healing callus on the third rib c orresponds to opacity seen on x-ray. Degenerative changes of thoracic spine. No suspicious osseous lesions. IMPRESSION Impression: 1. No suspicious pulmonary nodules. 2. Healing fracture of the anterior righ t third rib corresponds to opacity seen on x-ray. 3. Tiny left breast nodule. Consider matt mographic correlation. I have personally reviewed the examinati on and initial interpretation and I agree with the findings. JAKE WEATHERS MD Sheri Casey MD IMG CT ORDERABLES documented in this encounter Visit Diagnoses Diagnosis Abnormal chest x-ray Other nonspecific abnormal finding of quinten ng field documented in this encounter Care Teams Installer Inspector Final Relationship Specialty Start Date End Date Edison Tam MD PCP - General Family Practice 07/23/14 909 [facility] [address] [place], [place] [phone] Sheri Casey MD MD Pulmonary Disease 07/23/14 [address] [facility] [place] [address] [place], [place] [id number] Alphonso Billy MD MD Cardiology 08/12/14 12/26/[address] [place] [id number] documented as of this encounter
--- OUTSIDE RECORDS SUMMARY | 2021-10-24 12:00 | XMS_ITS | Encounter Summary ---
:1955 Author Organization [facility] Address [address] [place] [address] Care Team Providers Name Role Phone Edison Tam MD Primary Care Provider Sheri Casey MD Unavailable Alphonso Billy MD Unavailable Roland Holt MD Unavailable Reason for Visit Reason Onset Date Comments Refill Request 11/04/2015 Encounter Details Date Type Department Care Team Description 11/04/2015 Mariana Rogers [facility] Gastroenterology and Ab Charan mishra MD Refill Request IBD Clinic [address] [place] [id number] [place] [address] [place] [id number] [phone] Social History Tobacco Use Types Packs/Day Years [...] of small intestine wi th large intestine Osteoporosis Osteoporosis, unspecified Yossi's thyroiditis Chronic lymphocytic thyroiditis documented in this encounter Additional Health Concerns Assessment Noted Time PHQ-9 Depression Total Score: 14 05/13/2015 7:50 AM CS T documented as of this encounter Care Teams Class C Truck Driver Relationship Specialty Start Date End Date Edison Tam MD PCP - General Family Practice 07/23/[address] [place] [address] [address] [place], [place] [id number] Sheri Casey MD MD Pulmonary Disease 07/23/14 420 [facility] [address] [place] [address] Alphonso Billy MD MD Cardiology 08/12/14 12/26/17 420 [place], [place] [id number] Roland Holt MD Resident Student in [facility] 05/12/15 09/24/18 [facility] education/training program documented as of this encounter
--- OUTSIDE RECORDS SUMMARY | 2021-10-24 12:00 | XMS_ITS | Encounter Summary ---
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 Reason for Visit Reason Onset Date Comments Results 05/19/2015 Encounter Details Date Type Department Care Team Description 05/19/2015 Telephone [facility] Arcenio Tam MD Results [address] [place] [address] [place] [phone] Social History Tobacco Use Types Packs/Day Years Used Date Former Smoker 1 18 12/01/1972 - 0 12/02/1991 Smokeless Tobacco: Former User Q uit: 09/20/1991 Alcohol Use Standard Drinks/Week Comments No 0 (1 standard drink = 0.6 oz pure alcoho l) Sex Assigned at Date Recorded Not on file documented as of this encounter Miscellaneous Notes Telephone Encounter - Arcenio Tam MD - 05/19/2015 8:59 PM CST Results for orders placed or performed in visit on 05/16/15 Dexa hip/pelvis/spine* Narrative ATTENTION: Impression Easy to read DXA/VFA reports (formatted and presented as tables) can be found in EPIC under Chart review > Imaging tab > DXA [facility] [address] [place] [address] [place] [address] Phone: Fax: FINAL Patient name: MARIA E COLEY ([id number] ) Patient demographics: 60.4 year old White Female of 62.0 in. height and 130.0 lbs. weight Ordering provider: ARCENIO Kennedy 2SANTILLI History: CROHN'S, family hx of osteoporosis, HX OF OSTEOPOROSIS, OVARIES REMOVED (1 OR 2), POSTMENOPAUSAL status, reformed tobacco habit, THYROID CONDITION Current treatments: Calcium, RECLAST, STEROIDS, THYROID MEDS, Vitamin D Scan: DXA exam ([id number] ); [employer] Exam date: 05/16/2015 Comparison: 05/16/2015 11/06/2011 Dual energy x-ray absorptiometry (DXA) results: Region Date BMD T - score Z - score BMD change from baseline BMD % change from baseline L1-L4 05/16/2015 1.025 g/cm?? -1.3 0.1 -0.009 g/cm?? -0.9% L1-L4 11/06/2011 1.034 g/cm?? baseline baseline Neck Left 05/16/2015 0.693 g/cm?? -2.5 -1.1 Neck Left 11/06/2011 0.679 g/cm?? Total Left 05/16/2015 0.702 g/cm?? -2.4 -1.3 -0.018 g/cm?? -2.5% Total Left 11/06/2011 0.720 g/cm?? baseline baseline Neck Right 05/16/2015 0.636 g/cm?? -2.9 -1.5 Neck Right 11/06/2011 0.648 g/cm?? Total Right 05/16/2015 0.696 g/cm?? -2.5 -1.4 -0.010 g/cm?? -1.4% Total Right 11/06/2011 0.706 g/cm?? baseline baseline Conclusions: ? The most negative and valid T-score of -2.9 at the level of the right femoral neck, corresponds with osteoporosis . ? (for premenopausal women and men < age 50, Z-scores, not T-scores are reported ) The most negative and valid Z-score of -1.5 t the level of the right femoral neck, is WITHIN expected range for age. ? The risk of osteoporotic fracture increases approximately 2-fold for each 1.0 SD decrease in T-score. Low bone density is not the only risk factor for fracture; consider factors such as patient's age, fall risk, injury risk, previous osteoporotic fracture, family history of osteoporosis, etc. People with an elevated risk of fracture should be regularly evaluated for low bone mineral density. For patients eligible for Medicare, routine testing is allowed once every 2 years. Testing frequency can be increased for patients on corticosteroids. Clinical correlation is recommended. ? Taking into account the precision errors for this center, the calculated changes in BMD of NA is significant (see reference 2). Feel free to contact DXA services if you have any questions or comments. Thank you for the opportunity to be of service to you and your patient. Principal result cost controller: Brooklynn Alicea MD, CCD [employer] Division of Endocrinology References: ? ISCD position statements: www.iscd.org (includes the report of the 2015 Position Development Conference) ? LSC = least significant changes at the [facility] AP spine = 0.032 g/cm2 (09.03.2006) Left hip = 0.029 g/cm2 (08.23.2006) Right hip = 0.018 g/cm2 (08.23.2006) Left mid radius = 0.043 g/cm2 (09.03.2006) Lateral spine region = pending Total body = pending Template revised 10/14/2014 Technical comments: (reader to choose any that apply): ? Satisfactory. Hips ? Hips were internally rotated as far as hips would allow without causing patient discomfort. Still lesser trochanters are slightly visible. In circumstances, positioning is satisfactory. ? Hips were scanned in thin mode. Spine ? Lumbar spine was scanned in thick mode. ? The lateral lumbar spine is not used in diagnosis of osteoporosis/ low bone density but may be useful in monitoring. ? As per the ISCD Position Statements, abnormal vertebrae may be excluded from analysis if there is more than a 1.0 T-score difference between the vertebrae in question and adjacent vertebrae. Note the wide range in BMD values and T-scores within the lumbar spine [ L1 T-score: <-2.4 > , L2 T-score: <-1.6 >, L3 T-score: <-0.7 >, L4 T-score: <-0.5 > ]. In the circumstances, the lumbar spine is represented by [ L1-L4 ] . Comparison ? Percent changes not mentioned or within remaining regions are either insignificant or invalid. ? The significance of the change in the lateral spine is unknown as the least significant change for this region has not been determined for this center. ? Please note that the differential diagnosis of BMD increase in the spine includes improvement due to pharmacotherapy vs inter-current progression of spine degeneration or fracture ? Total hip rather than femoral neck regions are to be compared because larger areas give better precision. [phone] (home) DEXA Results indicate osteoporosis. 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 Best wishes, Arcenio Tam MD Pt called and plan of care discussed. Clinic numbers given to make appointments, questions or concerns. Blaire Gage RN 9:07 AM on 05/23/2015. documented in this encounter Plan of Treatment Scheduled Referrals Name Type Priority Associated Diagnoses Order [facility] ENDOCRINOLOGY ADULT Referral Routine Osteoporosis Ordered: REFERRAL History of corticosteroid therapy documented as of this encounter Visit Diagnoses Diagnosis Osteoporosis - Primary Osteoporosis, unspecified History of corticosteroid therapy Personal history of systemic steroid the rapy documented in this encounter Additional Health Concerns Assessment Noted Time PHQ-9 Depression Total Score: 14 05/13/2015 7:50 AM CS T documented as of this encounter Care Teams Care Worker Relationship Specialty Start Date End Date Arcenio Tam MD PCP - General Family Practice 07/23/14 909 [facility] 4 [place], [place] [id number] Sheri Casey MD MD Pulmonary Disease 07/23/14 420 [facility] [address] [place] [address] Alphonso Billy MD MD Cardiology 08/12/14 12/26/17 420 [place] [address] Roland Holt MD Resident Student in [facility] 05/12/15 09/24/18 health care education/training program documented as of this encounter
--- OUTSIDE RECORDS SUMMARY | 2021-10-24 12:00 | XMS_ITS | Encounter Summary ---
:1955 Author Organization [facility] Address [address] [place] [address] Care Team Providers Name Role Phone Edison Tam MD Primary Care Provider Sheri Casey MD Unavailable Alphonso Billy MD Unavailable Reason for Visit Reason Onset Date Comments Refill Request 03/01/2015 Propranolol Encounter Details Date Type Department Care Team Description 03/01/2015 Refill [facility] Primary Edison Tam Refill Request Care Center MD [facility] (Propranolol) 3rd Floor, Clinic [address] [place] [id number] [place] [address] [place] [address] Social History Tobacco Use Types [...] as of this encounter Visit Diagnoses Diagnosis HTN (hypertension) - Primary Unspecified essential hypertension documented in this encounter Care Teams Cutter Grinder Operator Relationship Specialty Start Date End Date Edison Tam MD PCP - General Family Practice 07/23/14 909 [facility] 4 [place], [place] [phone] Sheri Casey MD MD Pulmonary Disease 07/23/14 420 [facility] [address] [place] [address] Alphonso Billy MD MD Cardiology 08/12/14 12/26/17 [address] [place], [place] [phone] documented as of this encounter
--- OUTSIDE RECORDS SUMMARY | 2021-10-24 12:00 | XMS_ITS | Encounter Summary ---
:1955 Author Organization [facility] Address [address] [place] [address] Care Team Providers Name Role Phone Edison Tam MD Primary Care Provider Sheri Casey MD Unavailable Alphonso Billy MD Unavailable Encounter Details Date Type Department Care Team Description 12/15/2014 Radiant Appointment [facility] Breast Edison Tam mp or mass in Center Imaging Teresa Kennedy MD breast [address] [place] [phone] Social History Tobacco Use Types Packs/Day Years [...] Procedure Name Priority Date/Time Associated Comments Diagnosis MA DIAGNOSTIC Routine 12/15/2014 1:32 PM Lump or mass in Resul ts for this BILATERAL W/ GENNY CDT breast procedure are in the results section. documented in this encounter Results MA Diagnostic Bilateral w/Genny (12/15/2014 1:32 PM CDT) Anatomical Region Laterality Modality Breast Bilateral Mammography Specimen (Source) Anatomical Location Collection Method / Collectio n Time Received Time / Laterality Volume Impressions 12/15/2014 4:43 PM CDT IMPRESSION: BI-RADS CATEGORY: 1 - ??NEGATIVE. RECOMMENDED FOLLOW-UP: Annual Mammograph y. ?? The patient was given the results of the examination. I have personally reviewed the examinati on and initial interpretation and I agree with the findings. IRIS TAYLOR MD Narrative 12/15/2014 4:43 PM CDT Examination: Bilateral digital diagnostic mammography and digital breast tomosynthesis with computer aided detection, 12/15/2014. Comparison: Mammograms dated 03/15/2010 an d [address] dated 12/01/2014. History: Followup of density seen in the left breast on recent CT scan. BREAST DENSITY: Extremely dense Findings: There is no significant change . ?? Procedure Note Iris Taylor MD - 12/15/2014 Examination: Bilateral digital diagnosti c mammography and digital breast tomosynthesis with computer aided detection, 12/15/2014. Comparison: Mammograms dated 03/15/2010 an d [address] dated 12/01/2014. History: Followup of density seen in the left breast on recent CT scan. BREAST DENSITY: Extremely dense Findings: There is no significant change . IMPRESSION IMPRESSION: BI-RADS CATEGORY: 1 - NEGATI VE. RECOMMENDED FOLLOW-UP: Annual Mammograph y. The patient was given the results of the examination. I have personally reviewed the examinati on and initial interpretation and I agree with the findings. IRIS TAYLOR MD Edison Tam MD IMG MAMMOGRAPHY ORDERABLES documented in this encounter Visit Diagnoses Diagnosis Lump or mass in breast documented in this encounter Care Teams Sea Foam Kiss Maker Relationship Specialty Start Date End Date Edison Tam MD PCP - General Family Practice 07/23/14 909 [facility] 4 [place] [address] Sheri Casey MD MD Pulmonary Disease 07/23/14 420 [facility] [address] [place] [address] Alphonso Billy MD MD Cardiology 08/12/14 12/26/[address] [place] [id number] documented as of this encounter
--- OUTSIDE RECORDS SUMMARY | 2021-10-24 12:00 | XMS_ITS | Encounter Summary ---
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) Hyperglycemia Vision changes Edison Tam MD [address] [place] [address] [place] 4 [place], [place] [address] Referral ID Status Reason Start Date Expiration Date Visits Requ ested Visits Authorized [id number] Closed 05/12/2015 05/11/2016 1 1 LY LIVING EDUCATOR Reason for Visit Reason Comments Breathing Problem Patient is here to discuss s hortness of breath Encounter Details Date Type Department Care Team Description 05/12/2015 Office Visit [facility] Primary Care Edison Tam prednisone therapy (Primary Dx); Sybil Kennedy MD 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 [address] [facility] Yossi's thyroiditis; [address] Floor [place] 4 Hx of carbon monoxide poisoning; [place], [place] Hyperglyc emia; [id number] Adverse drug effect, initial encounter; [phone] Tired; (Work) 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 (HCC) ; [phone] Other iron defi ciency anemia ; (Fax) Vision changes; Thrush; Health care evelin ntenance Social History Tobacco Use Types Packs/Day Years [...] Sign Reading Time Taken Comments Blood Pressure 102/70 05/12/2015 11:32 AM FAMILY LIVING EDUCATOR Pulse 79 05/12/2015 11:32 AM FAMILY LIVING EDUCATOR Temperature 36.9 ??C (98.4 ??F) 05/12/2015 11:32 AM FAMILY LIVING EDUCATOR Respiratory Rate 16 05/12/2015 11:32 AM FAMILY LIVING EDUCATOR Oxygen Saturation 95% 05/12/2015 11:32 AM FAMILY LIVING EDUCATOR Inhaled Oxygen Concentration - - Weight 59 kg (130 lb) 05/12/2015 11:32 AM FAMILY LIVING EDUCATOR Height - - Body Mass Index 23.78 12/01/2014 1:09 PM CDT documented in this encounter Patient Instructions Patient InstructionsDede Oquendo CMA - 05/12/2015 11:32 AM CST Primary Care Center Medication Refill Request Information: * Please contact your pharmacy regarding ANY request for medication refills. [facility] Prescription Fax = [phone] * Please allow 3 business days for [...] the results and signed off on them. LY LIVING EDUCATOR documented in this encounter Progress Notes Edison Tam MD - 05/12/2015 11:53 AM CST SUBJECTIVE: Maria E Coley is a 59-year-old female who comes in today for her general checkup and here for followup of her other health conditions. She indicates that she has been feeling quite weak and has low energy and when she tries to exercise feels as though her chest sargent and her muscles arefeeling weird. She notes this low-grade sore throat. She is on chronic steroids including prednisoneand has not noticed if she has thrush in her mouth. She indicates that it does feel like a chest cold, she does not have a cough or productive type mucus. She is kind of wondering if she is being exposed to carbon monoxide again. She did have a previous exposure because she had a furnace that was not working quite right, but that has been fixed. Around [facility] [place] she was at her sister's, her sister's oven was producing some carbon monoxide and she has been feeling somewhat fatigued since that time. She does try to exercise and eat well, but when she exercises she feels as though her muscles feelvery weak. 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 She also has Raynaud's phenomenon. She is being treated for depression outside of the . Her typing teacher wanted us to order a bone density and she is here to have that done today. Otherwise, she has been feeling stable at this time. She would like to have lab work done and they didsome lab work to evaluate for the possibility of anemia and also to check her thyroid. ROS:She feels weak and has low energy and when she tried to exercise her chest sargent and her muscles feel weird. She has some throat discomfort into her chest and A slight burning felling in her chest. She does not feel it is a chest cold. Problem list, PMH, Surgical HX, FH, SH, allergies, medications,immunizations reviewed and updated inEpic. 10 point ROS negative other than noted in HPI and ROS. OBJECTIVE: Blood pressure 102/70, pulse 79, temperature 98.4 ??F (36.9 ??C), temperature source Oral, resp. rate 16, weight 58.968 kg (130 lb), SpO2 95 %, not currently . GENERAL: Examination reveals a female who appears to have chronic illness. EXTREMITIES: She indeed does have Raynaud's and her toes are slightly purple after she removed her socks, but foot exam is intact to monofilament. HEENT: Bilateral tympanic is normal. Posterior pharynx is non-erythematous. She does have thrush coating of her tongue and buccal mucosa. NECK: Supple. Thyroid is normal. Nontender. HEART: S1, S2, with regular rate and rhythm. LUNGS: Clear. ABDOMEN: There is no apparent hepatosplenomegaly. She is a little tender in the right lower quadrantbut no rebound or guarding. NEUROLOGICAL: Grossly intact. PSYCHIATRIC: Psychologically interactive. She is knitting, which helps her to keep her hands warm. Her mood is stable and interactive and pleasant. She is very concerned about carbon monoxide impact onher life. Results for orders placed or performed in visit on 05/12/15 TSH with free T4 reflex Result Value Ref Range TSH 0.77 0.40 - 4.00 mU/L Hemoglobin A1c Result Value Ref Range Hemoglobin A1C 5.4 4.3 - 6.0 % Comprehensive metabolic panel Result Value Ref Range Sodium 138 133 - 144 mmol/L Potassium 3.8 3.4 - 5.3 mmol/L Chloride 106 94 - 109 mmol/L Carbon Dioxide 23 20 - 32 mmol/L Anion Gap 10 3 - 14 mmol/L Glucose 94 70 - 99 mg/dL Urea Nitrogen 11 7 - 30 mg/dL Creatinine 0.93 0.52 - 1.04 mg/dL GFR Estimate 61 >60 mL/min/1.7m2 GFR Estimate If Black 74 >60 mL/min/1.7m2 Calcium 9.0 8.5 - 10.1 mg/dL Bilirubin Total 0.4 0.2 - 1.3 mg/dL Albumin 3.9 3.4 - 5.0 g/dL Protein Total 6.9 6.8 - 8.8 g/dL Alkaline Phosphatase 63 40 - 150 U/L ALT 22 0 - 50 U/L AST 14 0 - 45 U/L Lipid panel reflex to direct LDL Result Value Ref Range Cholesterol 223 (H) <200 mg/dL Triglycerides 173 (H) <150 mg/dL HDL Cholesterol 89 >49 mg/dL LDL Cholesterol Calculated 99 <100 mg/dL Non HDL Cholesterol 134 (H) <130 mg/dL Microalbumin quantitative random urine Result Value Ref Range Creatinine Urine 75 mg/dL Microalbumin Urine <5 mg/L Microalbumin mg/g Cr Unable to calculate due to low value 0 - 25 mg/g Cr CBC with platelets differential Result Value Ref Range WBC 8.6 4.0 - 11.0 10e9/L RBC Count 4.93 3.8 - 5.2 10e12/L Hemoglobin 14.3 11.7 - 15.7 g/dL Hematocrit 44.6 35.0 - 47.0 % MCV 91 78 - 100 fl MCH 29.0 26.5 - 33.0 pg MCHC 32.1 31.5 - 36.5 g/dL RDW 12.4 10.0 - 15.0 % Platelet Count 255 150 - 450 10e9/L Diff Method Automated Method % Neutrophils 79.6 % % Lymphocytes 12.0 % % Monocytes 6.8 % % Eosinophils 0.5 % % Basophils 0.6 % % Immature Granulocytes 0.5 % Nucleated RBCs 0 0 /100 Absolute Neutrophil 6.8 1.6 - 8.3 10e9/L Absolute Lymphocytes 1.0 0.8 - 5.3 10e9/L Absolute Monoctyes 0.6 0.0 - 1.3 10e9/L Absolute Eosinophils 0.0 0.0 - 0.7 10e9/L Absolute Basophils 0.1 0.0 - 0.2 10e9/L Abs Immature Granulocytes 0.0 0 - 0.4 10e9/L Absolute Nucleated RBC 0.0 Ferritin Result Value Ref Range Ferritin 48 8 - 252 ng/mL Iron and iron binding capacity Result Value Ref Range Iron 108 35 - 180 ug/dL Iron Binding Cap 352 240 - 430 ug/dL Iron Saturation Index 31 15 - 46 % Carbon monoxide Result Value Ref Range Carbon Monoxide 0.3 0 - 2 % The 10-year ASCVD risk score (Jadwingrzegorz SMITH Jr., et al., 2013) is: 4.3% Values used to calculate the score: Age: 59 years Sex: Female Is an : No Diabetic: Yes Tobacco smoker: No Systolic Blood Pressure: 102 mmHg Prescribed Antihypertensives: Yes HDL Cholesterol: 89 mg/dL Total Cholesterol: 223 mg/dL ASSESSMENT AND PLAN: A 59-year-old female with history of Yossi's thyroiditis, Crohn's disease under control, depression, Raynaud's phenomenon, who comes in today with symptoms of a scratchy throatand what appears to be oral thrush. She is on chronic steroids. I have recommended nystatin swish and swallow 4 times per day for 14 days. Bone density scan was ordered. We are also checking laboratorydata to evaluate for her fatigue. We reviewed the need for a pneumococcal vaccine, questions were addressed. She voiced understanding and agreement with the above. Advanced directive was provided for her and health care maintenance tabs were updated. Maria E was seen today for breathing problem. 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CC) Orders: - OPHTHALMOLOGY ADULT REFERRAL - PNEUMOCOCCAL VACCINE,ADULT,SQ OR IM Yossi's thyroiditis Hx of carbon monoxide poisoning Hyperglycemia Orders: - Hemoglobin A1c - Comprehensive metabolic panel - Lipid panel reflex to direct LDL - Microalbumin quantitative random urine - OPHTHALMOLOGY ADULT REFERRAL Adverse drug effect, initial encounter Tired Orders: - TSH with free T4 reflex - CBC with platelets differential - Ferritin - Iron and iron binding capacity - Carbon monoxide Diabetes mellitus due to underlying condition with hyperglycemia (HCC) Orders: - Lipid panel reflex to direct LDL Other iron deficiency anemia Orders: - Ferritin - Iron and iron binding capacity Vision changes Orders: - OPHTHALMOLOGY ADULT REFERRAL Thrush Orders: - nystatin (MYCOSTATIN) 186061 UNIT/ML suspension; Take 5 mLs (500,000 Units) by mouth 4 times dailyfor 14 days All questions were addressed and voiced understanding and agreement with the above. Edison Tam MD LY LIVING EDUCATOR documented in this encounter Nursing Notes Dede Oquendo CMA - 05/12/2015 11:32 AM CST Chief Complaint Patient presents with ??? Breathing Problem Patient is here to discuss shortness of breath Dede Oquendo CMA 11:32 AM on 05/12/2015. 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 CARBON MONOXIDE Routine 05/12/2015 1:18 Tired Results f or this PM FAMILY LIVING EDUCATOR procedure are i n the results section. CBC WITH PLATELETS & Routine 05/12/2015 1:17 Tired Resu lts for this DIFFERENTIAL PM FAMILY LIVING EDUCATOR procedure are i n the results section. TSH WITH FREE T4 Routine 05/12/2015 1:17 Tired Results for this REFLEX PM FAMILY LIVING EDUCATOR procedure are i n the results section. LIPID REFLEX TO Routine 05/12/2015 1:17 Diabetes mellitus due Results for this DIRECT LDL PANEL PM FAMILY LIVING EDUCATOR to underlying procedure are in condition with the results hyperglycemia (H CC) section. Hyperglycemia IRON AND IRON BINDING Routine 05/12/2015 1:17 Other iron defic iency Results for this CAPACITY PM FAMILY LIVING EDUCATOR anemia procedure are in Tired the results section. HEMOGLOBIN A1C Routine 05/12/2015 1:17 Hyperglycemia Results f or this PM FAMILY LIVING EDUCATOR procedure are i n the results section. FERRITIN Routine 05/12/2015 1:17 Other iron deficiency Res ults for this PM FAMILY LIVING EDUCATOR anemia procedure are in Tired the results section. COMPREHENSIVE Routine 05/12/2015 1:17 Hyperglycemia Results fo r this METABOLIC PANEL PM FAMILY LIVING EDUCATOR procedure ar e in the results section. documented in this encounter Results Dexa hip/pelvis/spine* (05/16/2015 11:39 AM FAMILY LIVING EDUCATOR) Anatomical Region Laterality Modality Dexa Computed Radiography Specimen (Source) Anatomical Location Collection Method / Collectio n Time Received Time / Laterality Volume Impressions 05/17/2015 10:52 PM FAMILY LIVING EDUCATOR Easy to read DXA/VFA reports (formatted and presented as tables) can be found in [facility] under Chart review > ??Imaging tab > ??DXA [facility] [address] [place] [address] [id number], [place] [address] Phone: ?? Fax: ??FINAL Patient name: ?? MARIA E COLEY ([id number] ) Patient demographics: 59.4 year old Whit e Female of 62.0 in. height and 130.0 lbs. weight Ordering provider: ??EDISON Kennedy 2SANTILLI History: ?? CROHN'S, family hx of osteop orosis, HX OF OSTEOPOROSIS, OVARIES REMOVED (1 OR 2), POSTMENOPAUSAL status, reformed tobacco habit, THYROID CONDITION Current treatments: Calcium, RECLAST, ST EROIDS, THYROID MEDS, Vitamin D Scan: ??DXA exam ([id number] ); [employer] Exam date: ??05/16/2015 Comparison: ??05/16/2015 11/06/2011 Dual energy x-ray absorptiometry (DXA) r esults: Region Date BMD T - score Z - score BMD change from baseline BMD % change from baseline L1-L4 05/16/2015 1.025 g/cm?? -1.3 0.1 - 0.009 g/cm?? -0.9% L1-L4 11/06/2011 1.034 g/cm? baselin e baseline Neck Left 05/16/2015 0.693 g/cm?? -2.5 - 1.1 ?? Neck Left 11/06/2011 0.679 g/cm? Total Left 05/16/2015 0.702 g/cm?? -2.4 -1.3 -0.018 g/cm?? -2.5% Total Left 11/06/2011 0.720 g/cm? ba seline baseline ? Neck Right 05/16/2015 0.636 g/cm?? -2.9 -1.5 ?? Neck Right 11/06/2011 0.648 g/cm? Total Right 05/16/2015 0.696 g/cm?? -2.5 -1.4 -0.010 g/cm?? -1.4% Total Right 11/06/2011 0.706 g/cm? b aseline baseline ? Conclusions: ?? ? The most negative and valid T-score of -2.9 at the level of the right femoral neck, ??corresponds with osteopo rosis ?? . ? ??(for premenopausal women and men < a ge 50, Z-scores, not T-scores are reported ) ??The most negative and valid Z-score of -1.5 t the level of the right femoral neck, ??is ? WITHIN ?? expected range for age. ? The risk of osteoporotic fracture incr eases approximately 2-fold for each 1.0 SD decrease in T-score. ??Low b one density is not the only risk factor for fracture; consider factors miller ch as patient's age, fall risk, injury risk, previous osteoporotic fract ure, family history of osteoporosis, etc. ??People with an elev ated risk of fracture should be regularly evaluated for low bone mineral density. ??For patients eligible for Medicare, routine testing is allowed once every 2 years. Testing frequency can be increased for patients on corticosteroids. Clinical correlation is recommended. ? Taking into account the precision erro rs for this center, the calculated changes in BMD of NA is significant (see reference 2). ? Feel free to contact DXA services if you have any questions or comments. ?? Thank you for the opportunity to be of s piedadvice to you and your patient. Principal result motor vehicle parts interpreter: Brooklynn Alicea MD, CCD Thermodynamics Engineerlineman apprentice Division of Endocrinology References: ? ISCD position statements: ??[email or web address] ??(includes the report of the 2015 ??Position Development Conference) ? LSC = least significant changes at the [facility] AP spine = ??0.032 g/cm2 ??(09.03.2006) Left hip = 0.029 g/cm2 ??(08.23.2006) Right hip = 0.018 g/cm2 ??(08.23.2006) Left mid radius = 0.043 g/cm2 ??( 007) Lateral spine region = pending Total body = pending Template revised 10/14/2014 Technical comments: ??(reader to choose any that apply): ? Satisfactory. Hips ? Hips were internally rotated as far as hips would allow without causing patient discomfort. ??Still lesser troch anters are slightly ??visible. ??In circumstances, positioning is satisfacto ry. ? Hips were scanned in thin mode. Spine ? Lumbar spine was scanned in thick mode . ? The lateral lumbar spine is not used i n diagnosis of osteoporosis/ low bone density but may be useful in monito ring. ? As per the ISCD Position Statements, a bnormal vertebrae may be excluded from analysis if there is more than a 1. 0 T-score difference between the vertebrae in question and adjacent verte brae. Note the wide range in BMD values and ??T-scores ??within the lumba r spine [ ?? L1 T-score: ?? <-2.4 > ??, L2 T-score: ??<-1.6 >, ??L3 T-score: ?? <-0.7 >, ??L4 T-score: ??<-0.5 > ]. ??In the circumstances, the lumbar spine is r epresented by ?? [ L1-L4 ] . Comparison ? Percent [...] compared because larger areas give better precision. Narrative 05/17/2015 10:52 PM FAMILY LIVING EDUCATOR ATTENTION: Edison Tam MD IMG DEXA ORDERABLES Carbon monoxide (05/12/2015 1:18 PM FAMILY LIVING EDUCATOR) athologist Signature Carbon 0.3 0 - 2 % [facility] Specimen Anatomical Collection Method Collection Time Receive d Time (Source) Location / / Volume Laterality Blood specimen 05/12/2015 1:18 PM 016 1:20 (specimen) FAMILY LIVING EDUCATOR PM FAMILY LIVING EDUCATOR Edison Tam MD LAB - BLOOD ORDERABLES Performing Organization Address City/State/ZIP Code Phon e Number [address] [address] [facility] Microalbumin quantitative random urine (05/12/2015 1:18 PM FAMILY LIVING EDUCATOR) [facility] gist Method Time Signature Creatinine 75 mg/dL [place] Urine [facility] Albumin Urine <5 mg/L [place] mg/L [facility] Albumin Urine Unable to 0 - 25 [place] mg/g Cr calculate due mg/g Cr [facility] to [facility] Specimen Anatomical Collection Method Collection Time Receive d Time (Source) Location / / Volume Laterality Urine specimen 05/12/2015 1:18 PM 016 1:20 (specimen) FAMILY LIVING EDUCATOR PM FAMILY LIVING EDUCATOR Edison Tam MD LAB - URINE ORDERABLES Performing Organization Address City/State/ZIP Code Phon e Number M [facility] [address] [place] [address] [facility] [address] [place] [address], U [phone] Iron and iron binding capacity (05/12/2015 1:17 PM FAMILY LIVING EDUCATOR) athologist Signature Iron 108 35 - 180 [facility] ug/dL [facility] Iron Binding 352 240 - 430 [facility] Cap ug/dL [facility] Iron Saturation 31 15 - 46 % [facility] Specimen Anatomical Collection Method Collection Time Receive d Time (Source) Location / / Volume Laterality Blood specimen 05/12/2015 1:17 PM 016 1:20 (specimen) FAMILY LIVING EDUCATOR PM FAMILY LIVING EDUCATOR Edison Tam MD LAB - BLOOD ORDERABLES Performing Organization Address City/[facility]/ZIP Code Phon e Number [address] [address] [facility] Ferritin (05/12/2015 1:17 PM FAMILY LIVING EDUCATOR) P athologist Signature Ferritin 48 8 - 252 [facility] ng/mL [facility] Specimen Anatomical Collection Method Collection Time Receive d Time (Source) Location / / Volume Laterality Blood specimen 05/12/2015 1:17 PM 016 1:20 (specimen) FAMILY LIVING EDUCATOR PM FAMILY LIVING EDUCATOR Edison Tam MD LAB - BLOOD ORDERABLES Performing Organization Address City/[facility]/ZIP Code Phon e Number [address] [address] [facility] CBC with platelets differential (05/12/2015 1:17 PM FAMILY LIVING EDUCATOR) [facility] Method Time Signature WBC 8.6 4.0 - [facility] 11.0 [place] 10e9/[facility] RBC Count 4.93 3.8 - 5.2 [facility] 10e12/L [facility] Hemoglobin 14.3 11.7 - [facility] 15.7 g/dL [facility] Hematocrit 44.6 35.0 - [facility] 47.0 % [facility] MCV 91 78 - 100 [facility] fl [facility] MCH 29.0 26.5 - [facility] 33.0 pg [facility] MCHC 32.1 31.5 - [facility] 36.5 g/dL [facility] RDW 12.4 10.0 - [facility] 15.0 % [facility] Platelet Count 255 150 - 450 [facility] 10e9/[facility] Diff Method Automated [facility] Method [facility] % Neutrophils 79.6 % [facility] % Lymphocytes 12.0 % [facility] % Monocytes 6.8 % [facility] % Eosinophils 0.5 % [facility] % Basophils 0.6 % [facility] % Immature 0.5 % [facility] Granulocytes [facility] Nucleated RBCs 0 0 /100 [facility] Absolute 6.8 1.6 - 8.3 [facility] Neutrophil 10e9/L [facility] Absolute 1.0 0.8 - 5.3 [facility] Lymphocytes 10e9/L [facility] Absolute 0.6 0.0 - 1.3 [facility] Monocytes 10e9/L [facility] Absolute 0.0 0.0 - 0.7 [facility] Eosinophils 10e9/L [facility] Absolute 0.1 0.0 - 0.2 [facility] Basophils 10e9/L [facility] Abs Immature 0.0 0 - 0.4 [facility] Granulocytes 10e9/[facility] Absolute 0.0 [facility] Nucleated RBC [facility] Specimen Anatomical Collection Method Collection Time Receive d Time (Source) Location / / Volume Laterality Blood specimen 05/12/2015 1:17 PM 016 1:20 (specimen) FAMILY LIVING EDUCATOR PM FAMILY LIVING EDUCATOR Edison Tam MD LAB - BLOOD ORDERABLES Performing Organization Address [facility]/ZIP Code Phon e Number [facility] [address] [place] [address] [facility] (ABNORMAL) Lipid panel reflex to direct LDL (05/12/2015 1:17 PM FAMILY LIVING EDUCATOR) P athologist Signature Cholesterol 223 (H) <200 mg/dL [facility] Comment: Desirable: <200 mg/dl Triglycerides 173 (H) <150 mg/dL [facility] Comment: Borderline high: ??150-199 mg/dl High: ? 200-499 mg/dl Very high: ? >499 mg/dl HDL Cholesterol 89 >49 mg/dL [facility] LDL Cholesterol Calculated 99 <100 mg/dL [facility] Comment: Desirable: <100 mg/dl Non HDL Cholesterol 134 (H) <130 mg/dL [facility] Comment: Above Desirable: ??130-159 mg/dl Borderline high: ??160-189 mg/dl High: ? 190-219 mg/dl Very high: ? >219 mg/dl Specimen Anatomical Collection Method Collection Time Receive d Time (Source) Location / / Volume Laterality Blood specimen 05/12/2015 1:17 PM 016 1:20 (specimen) FAMILY LIVING EDUCATOR PM FAMILY LIVING EDUCATOR Edison Tam MD LAB - BLOOD ORDERABLES Performing Organization Address City/[facility]/ZIP Code Phon e Number [facility] [address] [place] [address] [facility] Comprehensive metabolic panel (05/12/2015 1:17 PM FAMILY LIVING EDUCATOR) P athologist Signature Sodium 138 133 - 144 [facility] mmol/L [facility] Potassium 3.8 3.4 - 5.3 [facility] mmol/L [facility] Chloride 106 94 - 109 [facility] mmol/L [facility] Carbon Dioxide 23 20 - 32 [facility] mmol/L [facility] Anion Gap 10 3 - 14 [facility] mmol/L [facility] Glucose 94 70 - 99 [facility] mg/dL [facility] Urea Nitrogen 11 7 - 30 [facility] mg/dL [facility] Creatinine 0.93 0.52 - [facility] 1.04 mg/dL [facility] GFR Estimate 61 >60 [facility] mL/min/1.7 [place] m2 [facility] Comment: Non GFR Calc GFR Estimate If Black 74 >60 mL/min/1.7m2 [facility] Comment: GFR Calc Calcium 9.0 8.5 - 10.1 mg/dL [facility] Bilirubin Total 0.4 0.2 - 1.3 mg/dL [facility] Albumin 3.9 3.4 - 5.0 g/dL [facility] Protein Total 6.9 6.8 - 8.8 g/dL [facility] Alkaline Phosphatase 63 40 - 150 U/L [facility] ALT 22 0 - 50 U/L [facility] AST 14 0 - 45 U/L [facility] Specimen Anatomical Collection Method Collection Time Receive d Time (Source) Location / / Volume Laterality Blood specimen 05/12/2015 1:17 PM 016 1:20 (specimen) FAMILY LIVING EDUCATOR PM FAMILY LIVING EDUCATOR Edison Tam MD LAB - BLOOD ORDERABLES Performing Organization Address City/State/ZIP Code Phon e Number [address] [address] [facility] Hemoglobin A1c (05/12/2015 1:17 PM FAMILY LIVING EDUCATOR) P athologist Signature Hemoglobin A1C 5.4 4.3 - 6.0 [facility] Specimen Anatomical Collection Method Collection Time Receive d Time (Source) Location / / Volume Laterality Blood specimen 05/12/2015 1:17 PM 016 1:20 (specimen) FAMILY LIVING EDUCATOR PM FAMILY LIVING EDUCATOR Edison Tam MD LAB - BLOOD ORDERABLES Performing Organization Address City/State/ZIP Code Phon e Number [facility] [address] [place] [id number] [facility] TSH with free T4 reflex (05/12/2015 1:17 PM FAMILY LIVING EDUCATOR) P athologist Signature TSH 0.77 0.40 - 4.00 [facility] Specimen Anatomical Collection Method Collection Time Receive d Time (Source) Location / / Volume Laterality Blood specimen 05/12/2015 1:17 PM 016 1:20 (specimen) FAMILY LIVING EDUCATOR PM FAMILY LIVING EDUCATOR Edison Tam MD LAB - BLOOD ORDERABLES Performing Organization Address City/[facility]/ZIP Code Phon e Number [address] [address] [facility] documented in this encounter Visit Diagnoses Diagnosis On prednisone therapy - Primary 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 Yossi's thyroiditis Chronic lymphocytic thyroiditis Hx of carbon monoxide poisoning Personal history of poisoning, presentin g hazards to health Hyperglycemia Other abnormal glucose Adverse drug effect, initial encounter Tired Other malaise and fatigue 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 (HCC) Secondary diabetes mellitus with other s pecified manifestations, not stated as uncontrolled, or unspecified Other iron deficiency anemia Vision changes Unspecified visual disturbance Thrush Candidiasis of mouth Health care maintenance Unspecified general medical examination On prednisone therapy documented in this encounter Additional Health Concerns Assessment Noted Time PHQ-9 Depression Total Score: 14 05/13/2015 7:50 AM CS T documented as of this encounter Care Teams Clinical Exercise Specialist Relationship Specialty Start Date End Date Edison Tam MD PCP - General Family Practice 07/23/14 909 [facility] 4 [place] [address] Sheri Casey MD MD Pulmonary Disease 07/23/14 420 [facility] 276 [place], [place] [address] Alphonso Billy MD MD Cardiology 08/12/14 12/26/[address] [place] [address] Roland Holt MD Resident Student in [facility] [email or web address] 05/12/15 09/24/18 [facility] education/training program documented as of this encounter
--- OUTSIDE RECORDS SUMMARY | 2021-10-24 12:00 | XMS_ITS | Encounter Summary ---
:1955 Author Organization [place] Address [address] [place] [address] Care Team Providers Name Role Phone Edison Tam MD Primary Care Provider Sheri Casey MD Unavailable Alphonso Billy MD Unavailable Reason for Visit Reason Onset Date Comments Refill Request 05/09/2015 Encounter Details Date Type Department Care Team Description 05/09/2015 Refill [facility] Gastroenterology and Ab Charan mishra MD Refill Request IBD Clinic [address] [place] [address] [place] [phone] Social History Tobacco Use Types Packs/Day Years Used Date Former Smoker 1 18 12/01/1972 - 0 12/02/1991 Smokeless Tobacco: Former User Q uit: 09/20/1991 Alcohol Use Standard Drinks/Week Comments No 0 (1 standard drink = 0.6 oz pure alcoho l) Sex Assigned at Date Recorded Not on file documented as of this encounter Miscellaneous Notes Telephone Encounter - Rebekah Mason RN - 05/09/2015 4:37 PM CST Refill approved per . 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 4 [place] [address] Sheri Casey MD MD Pulmonary Disease 07/23/14 420 [facility] 276 [place] [address] Alphonso Billy MD MD Cardiology 08/12/14 12/26/17 420 [place] [address] documented as of this encounter
--- OUTSIDE RECORDS SUMMARY | 2021-10-24 12:00 | XMS_ITS | Encounter Summary ---
:1955 Author Organization [place] Address [address] [place] [address] Care Team Providers Name Role Phone Edison Tam MD Primary Care Provider Sheri Casey MD Unavailable Alphonso Billy MD Unavailable Roland Holt MD Unavailable Reason for Visit Reason Comments Consult Crohns Encounter Details Date Type Department Care Team Description 07/04/2015 Office Visit [facility] Gastroenterology Charan Salazar, Crohn's disease of both small and large intestine with complication (H) (Primary Dx); and IBD Clinic Digestive-genital tract fistula, female; 9 [facility] SE [address] [place] [address] 4th [place] [address] [phone] Social History Tobacco Use Types Packs/Day Years [...] Sign Reading Time Taken Comments Blood Pressure 111/63 07/04/2015 1:43 PM CDT Pulse 93 07/04/2015 1:43 PM CDT Temperature 36.9 ??C (98.4 ??F) 07/04/2015 1:43 PM CDT Respiratory Rate - - Oxygen Saturation 96% 07/04/2015 1:43 PM CDT Inhaled Oxygen Concentration - - Weight 59.6 kg (131 lb 4.8 oz) 07/04/2015 1:43 PM CDT Height 157.5 cm (5' 2) 07/04/2015 1:43 PM CDT Body Mass Index 24.02 07/04/2015 1:43 PM CDT documented in this encounter Patient Instructions Patient InstructionsCharan Salazar MD - 07/04/2015 2:28 PM CDT I've included a brief summary of our discussion and care plan from today's visit below. Please review this information with your primary care provider. 1. Given the increased fecal output from your chronic enterovaginal fistula, and the increased pneumaturia from the chronic enterovesicular fistula, would recommend moving forward with a Pelvic MRI (3 Kaylee) to evaluate this further. - Would like to rule out the presence of a new pelvic abscess decompressing through the chronic fistulae, particularly given your chronic steroid use which may sometimes mask these symptoms. - Continue your low-dose prednisone as ordered for now, discussed risks/benefits/alternatives again at length today. - May consider Colorectal Surgery evaluation depending on findings. 2. Reviewed your recent labwork from 05/[address] Tam - these studies are excellent overall with good preservation of your nutritional markers. Will continue to monitor these parameters closely in your ongoing care. 3. Return to GI Clinic with me in 3 months to review your progress, sooner if symptomatic. May arrange for sooner follow-up depending on MRI findings. - If you are unable to schedule this follow-up appointment today, please contact Lisseth Guidry at within the next week to help set up this necessary appointment. _October 02 120 pm [address] [facility] [address] Salazar It was a pleasure seeing you in clinic today - please be in touch if there are any further questionsthat arise following today's visit. During business hours, you may reach Clinic Nurse Triage Line [phone]. For urgent/emergent questions after business hours, you may reach the on-call GI Fellow by contacting the [facility] mud jack operator at . Any benign/non-urgent test results are usually communicated via letter or Moneytreet message within 1-2weeks after completion. Urgent results (those that require a change in the previously-discussed careplan) are usually communicated via a phone call once available from our clinic staff to discuss the results and the next steps in your evaluation. I recommend signing up for [employer] access if you have not already done [...] about your healthcare. Sincerely, Charan Salazar MD Toy Designer [facility] - Department of Medicine Division of Gastroenterology [address] Imaging First Floor July 3 1130 CHECK IN TIME 1115 AM NOTHING TO EAT OR DRINK FOR 4 TO 6 HOURS documented in this encounter Progress Notes Charan Salazar MD - 07/06/2015 11:11 AM CDT GI CLINIC VISIT CC/REFERRING MD:?? Edison Tma REASON FOR CONSULTATION: Crohn's disease HPI: 59 year old female w/ h/o complicated fistulizing [...] medical issues - presenting for f/u Crohn's disease.??+incr vaginal leakage of stool in the recent months, +sl incr in intermittent pneumaturia as well (no dysuria/hematuria noted). Report having 1-2 soft BM/day w/o blood otherwise (baseline). Denies any tenesmus or insecurity passing flatus, no fecal incontinence or new perianal/nocturnal sxs noted. Denies any N/V/F/C/DONNELLY/NS or other const/syst/cardiopulmonary sxs, no BRBPR/melena/urinary changes, no unintentional wt loss or appetite/satiety changes.No other bowel/bladder habit changes, no dysphagia/odynophagia. No jaundice/icterus/pruritus, no acholic stools/steatorrhea, no new lumps/bumps, no jt pain/oral ulcer/rash/eye sxs noted. ROS: 10pt ROS performed and otherwise negative. PERTINENT PAST MEDICAL/SURGICAL HISTORY: As noted above. PERTINENT MEDICATIONS: - prednisone 7mg PO QDAY Medications reviewed with patient today, see Medication List/Assessment for details. No other NSAID/anticoagulation reported by patient. No other OTC/herbal/supplements reported by patient. SOCIAL HISTORY: Tobacco: none. PHYSICAL EXAMINATION: Vitals reviewed, AFVSS Wt 131.3# today (sl incr) Gen: aaox3, cooperative, pleasant, not dyspneic/diaphoretic, nad HEENT: ncat, neck supple, no clad, normal op w/o ulcer/exudate, anicteric, mmm Resp/CV unremarkable Abd: +nabs, soft, nt, nd, no peritoneal s/s noted Ext: no c/c/e Skin: warm, perfused, no jaundice Neuro: grossly intact, no asterixis noted PERTINENT STUDIES: Lytes/LFT normal, cr 0.93, alb 3.9 wbc 8.6, hgb 14.3, plt 255, mcv 91 ferritin 48, iron profile normal TSH normal ASSESSMENT/PLAN: 1. Complex chronic fistulizing ileocolonic + perianal Crohn's disease, chronic steroid dependence but otherwise stable and clinically quiescent disease - interval increased fecal output from enterovaginal fistula in recent weeks, recommend further dedicated pelvic imaging to evaluate fistula further and to rule out occult pelvic abscess (particularly given longstanding steroid exposure which may masksymptoms) 1. Given the increased fecal output from your chronic enterovaginal fistula, and the increased pneumaturia from the chronic enterovesicular fistula, would recommend moving forward with a Pelvic MRI (3 Kaylee) to evaluate this further. Reviewed case in brief w/ CR Surgery today. - Would like to rule out the presence of a new pelvic abscess decompressing through the chronic fistulae, particularly given your chronic steroid use which may sometimes mask these symptoms. - Continue your low-dose prednisone as ordered for now, discussed risks/benefits/alternatives again at length today. - May consider Colorectal Surgery evaluation depending on findings. 2. Reviewed your recent labwork from 05/[address] Tam - these studies are excellent overall with good preservation of your nutritional markers. Will continue to monitor these parameters closely in your ongoing care. 2. Colorectal Cancer Screening No PSC or known FH CRC, will readdress once acute issues have stabilized. RTC 3 months, sooner if symptomatic. Thank you for this consultation. It was a pleasure to participate in the care of this patient; please contact us with any further questions. A total of 25 minutes was spent with this patient, 50% of which was counseling regarding the above delineated issues. Charan Salazar MD Toy Designer [facility] - Department of Medicine Division of Gastroenterology documented in this encounter Nursing Notes Marisol Marcos, RN - 07/04/2015 4:02 PM CDT Printed after summary visit given to patient along with verbal instructions for mri. Follow up appointment given. Prakash Celeste CMA - 07/04/2015 1:43 PM CDT Chief Complaint Patient presents with ??? Consult Crohns Filed Vitals: 07/04/15 1343 BP: 111/63 Pulse: 93 Temp: 98.4 ??F (36.9 ??C) TempSrc: Oral Height: 5' 2 Weight: 131 lb 4.8 oz SpO2: 96% Body mass index is 24.01 kg/(m^2). Prakash Celeste CMA documented in this encounter Plan of Treatment Not on filedocumented as of this encounter Results MR Pelvis w/o & w Contrast (07/12/2015 12:40 PM CDT) Anatomical Region Laterality Modality Abdomen/Pelvis, SUBRAD MR MSK, UMP MR MSK, UMP MR BODY Magnetic Resonance Specimen (Source) Anatomical Location Collection Method / Collectio n Time Received Time / Laterality Volume Impressions 07/12/2015 3:16 PM CDT IMPRESSION: 1. Redemonstration of anovaginal fistula and contiguous intersphincteric perianal fistula. 2. No evidence of enterovesical fistula although one cannot be completely ruled out. Cystogram could be performed if further evaluation is desired. I have personally reviewed the examinati on and initial interpretation and I agree with the findings. SANA MANZO MD Narrative 07/12/2015 3:16 PM CDT EXAMINATION: MR PELVIS W/O & W CONTRAST, 07/12/2015 12:40 PM COMPARISON: MR enterography 07/10/2012 HISTORY: longstanding ileocolonic + luisa anal Crohn's disease complicated by chronic enterovaginal + e nterovesicular + perianal fistulae, increased fecal output from va janae and increased pneumaturia, Crohn's disease of both sma ll and large intestine with unspecified complications, Other female genital tract fistulae, Other symptoms and signs involving the genitou rinary system TECHNIQUE: Multiplanar, multisequence im aging was obtained of the pelvis without and with intravenous cont rast. Contrast dose: 7.5mL Gadavist FINDINGS: Anovaginal fistula is again se en, better demonstrated on this small xeybu-tw-vlja pelvic study th an on 07/10/2012. It is best seen on the coronal postcontrast images (series 19 image 15-20). This is contiguous with an intersphincteric p erianal fistula which appears to contact the skin surface within the m edial cleft (series 19 image 19, series 20 image 94). There is no dir ect evidence of enterovesical fistula although one cannot be completel y ruled out. No air within the bladder. Small bladder diverticulum is a gain seen. Limited evaluation of the rectum, colon and small bowel are unremarkable, status post ileocecectomy. The uterus and ovaries are within normal limits. No lymphadenopathy . No suspicious bone lesions. Procedure Note Sana Manzo MD - 07/12/2015Formatt ing of this note might be different from the original. EXAMINATION: MR PELVIS W/O & W CONTRAST, 07/12/2015 12:40 PM COMPARISON: MR enterography 07/10/2012 HISTORY: longstanding ileocolonic + luisa anal Crohn's disease complicated by chronic enterovaginal + e nterovesicular + perianal fistulae, increased fecal output from va janae and increased pneumaturia, Crohn's disease of both sma ll and large intestine with unspecified complications, Other female genital tract fistulae, Other symptoms and signs involving the genitou rinary system TECHNIQUE: Multiplanar, multisequence im aging was obtained of the pelvis without and with intravenous cont rast. Contrast dose: 7.5mL Gadavist FINDINGS: Anovaginal fistula is again se en, better demonstrated on this small tytiy-tm-ecmx pelvic study th an on 07/10/2012. It is best seen on the coronal postcontrast images (series 19 image 15-20). This is contiguous with an intersphincteric p erianal fistula which appears to contact the skin surface within the m edial cleft (series 19 image 19, series 20 image 94). There is no dir ect evidence of enterovesical fistula although one cannot be completel y ruled out. No air within the bladder. Small bladder diverticulum is a gain seen. Limited evaluation of the rectum, colon and small bowel are unremarkable, status post ileocecectomy. The uterus and ovaries are within normal limits. No lymphadenopathy . No suspicious bone lesions. IMPRESSION: 1. Redemonstration of anovaginal fistula and contiguous intersphincteric perianal fistula. 2. No evidence of enterovesical fistula although one cannot be completely ruled out. Cystogram could be performed if further evaluation is desired. I have personally reviewed the examinati on and initial interpretation and I agree with the findings. 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, female Pneumaturia Other specified disorders of urethra documented in this encounter Additional Health Concerns Assessment Noted Time PHQ-9 Depression Total Score: 14 05/13/2015 7:50 AM CS T documented as of this encounter Care Teams Assembler Ping Pong Table Relationship Specialty Start Date End Date Edison Tam MD PCP - General Family Practice 07/23/14 909 [facility] 4 [place], [place] [phone] Sheri Casey MD MD Pulmonary Disease 07/23/14 420 [facility] 276 [place] [address] Alphonso Billy MD MD Cardiology 08/12/14 12/26/17 420 [place] [address] Roland Holt MD Resident Student in [facility] 05/12/15 09/24/18 [facility] education/training program documented as of this encounter
--- OUTSIDE RECORDS SUMMARY | 2021-10-24 12:00 | XMS_ITS | Encounter Summary ---
:1955 Author Organization [place] Address [address] [place] [address] Care Team Providers Name Role Phone Edison Tam MD Primary Care Provider Sheri Casey MD Unavailable Alphonso Billy MD Unavailable Roland Holt MD Unavailable Reason for Visit Reason Onset Date Comments Pt. Information/instruction 09/08/2015 Encounter Details Date Type Department Care Team Description 09/08/2015 Telephone [facility] Laci Rodriguez [facility] MD Saeid Information/instructio [address] [place], [place] [phone] [phone] Social History Tobacco Use Types Packs/Day Years Used Date Former Smoker Cigarettes 1 18 11/11/1972 - 0 06/26/1981 Smokeless Tobacco: Former User Q uit: 09/20/1991 Alcohol Use Standard Drinks/Week Comments No 0 (1 standard drink = 0.6 oz pure alcoho l) Sex Assigned at Date Recorded Not on file documented as of this encounter Miscellaneous Notes Telephone Encounter - Mervat Anna RN - 09/08/2015 3:34 PM CDT Patient taking any blood thinners ? no Heart disease ? denies Lung disease ? denies Sleep apnea ? denies Diabetic ? denies Kidney disease ? denies Dialysis ? n/a Electronic implanted medical devices ? denies Are you taking any narcotic pain medication ? no What is your daily dosage ? PTSD ? n/a Prep instructions reviewed with patient ? Instructions briefly reviewed. Stretch Press Operator policy, MAC sedationplan reviewed. Pharmacy : n/a Indication for procedure : Crohn's disease Referring provider : Dr. Charan Salazar documented in this encounter Plan of Treatment Not on filedocumented as of this encounter Visit Diagnoses Not on filedocumented in this encounter Additional Health Concerns Assessment Noted Time PHQ-9 Depression Total Score: 14 05/13/2015 7:50 AM CS T documented as of this encounter Care Teams Coiler Relationship Specialty Start Date End Date Edison Tam MD PCP - General Family Practice 07/23/14 909 [facility] 4 [place], [place] [address] Sheri Casey MD MD Pulmonary Disease 07/23/14 420 [facility] 276 [place], [place] [id number] Alphonso Billy MD MD Cardiology 08/12/14 12/26/17 420 [place], [place] [address] Roland Holt MD Resident Student in [facility] 05/12/15 09/24/[address] [facility] education/training program documented as of this encounter
--- OUTSIDE RECORDS SUMMARY | 2021-10-24 12:00 | XMS_ITS | Encounter Summary ---
:1955 Author Organization [place] Address [address] [address] Care Team Providers Name Role Phone Arcenio Tam MD Primary Care Provider Sheri Casey MD Unavailable Alphonso Billy MD Unavailable Roland Holt MD Unavailable Encounter Details Date Type Department Care Team Description 05/16/2015 Radiant Appointment Health Imaging Arcenio Tam prednisone Center Renea Kennedy MD therapy [address] [place] [phone] Social History Tobacco Use Types Packs/Day [...] Associated Diagnosis Comme nts DX HIP/PELVIS/SPINE Routine 05/16/2015 11:39 AM On prednisone Results for this STAFF RESPIRATORY THERAPIST therapy procedure are i n the results section. documented in this encounter Results Dexa hip/pelvis/spine* (05/16/2015 11:39 AM STAFF RESPIRATORY THERAPIST) Anatomical Region Laterality Modality Dexa Computed Radiography Specimen (Source) Anatomical Location Collection Method / Collectio n Time Received Time / Laterality Volume Impressions 05/17/2015 10:52 PM STAFF RESPIRATORY THERAPIST Easy to read DXA/VFA reports (formatted and presented as tables) can be found in EPIC under Chart review > ??Imaging tab > ??DXA [facility] [address] [place] [address] [address], [place] [address] Phone: ?? Fax: ??FINAL Patient name: ?? MARIA E COLEY ([id number] ) Patient demographics: 60.4 year old Whit e Female of 62.0 in. height and 130.0 lbs. weight Ordering provider: ??ARCENIO Kennedy 2SANTILLI History: ?? CROHN'S, family hx of osteop orosis, HX OF OSTEOPOROSIS, OVARIES REMOVED (1 OR 2), POSTMENOPAUSAL status, reformed tobacco habit, THYROID CONDITION Current treatments: Calcium, RECLAST, ST EROIDS, THYROID MEDS, Vitamin D Scan: ??DXA exam ([id number] ); [employer] Exam date: ??05/16/2015 Comparison: ??05/16/2015 11/06/2011 Dual [...] to you and your patient. Principal result fruit loader: Brooklynn Alicea MD, CCD Asbestos Cloth Inspectorpiece meat trimmer Division of Endocrinology References: ? ISCD position statements: ??www.iscd.o rg ??(includes the report of the 2014 ??Position Development Conference) ? LSC = least significant changes at the [facility] AP spine = ??0.032 g/cm2 [...] give better precision. Narrative 05/17/2015 10:52 PM STAFF RESPIRATORY THERAPIST ATTENTION: Arcenio Tam MD IMG DEXA ORDERABLES documented in this encounter Visit Diagnoses Diagnosis On prednisone therapy documented in this encounter Additional Health Concerns Assessment Noted Time PHQ-9 Depression Total Score: 14 05/13/2015 7:50 AM MILAD T documented as of this encounter Care Teams Board Turner Relationship Specialty Start Date End Date Arcenio Tam MD PCP - General Family Practice 07/23/14 909 [facility] 4 [place] [address] Sheri Casey MD MD Pulmonary Disease 07/23/14 420 [facility] 276 [place] [address] Alphonso Billy MD MD Cardiology 08/12/14 12/26/17 420 [place] [address] Roland Holt MD Resident Student in [facility] 05/12/15 09/24/18 [facility] education/training program documented as of this encounter
--- OUTSIDE RECORDS SUMMARY | 2021-10-24 12:00 | XMS_ITS | Encounter Summary ---
:1955 Author Organization [place] Address [address] [place] [address] Care Team Providers Name Role Phone Arcenio Olivas MD Primary Care Provider Sheri Casey MD Unavailable Alphonso Billy MD Unavailable Roland Holt MD Unavailable Encounter Details Date Type Department Care Team Description 09/15/2015 Documentation Only [facility] Endoscopy Zofia Rivera [facility] MD Saeid [address] [place] [address] [phone] Social History Tobacco Use Types Packs/Day Years [...] Name Priority Date/Time Associated Diagnosis Comme nts SURGICAL PATHOLOGY Routine 09/15/2015 1:28 PM Res ults for this EXAM CDT procedure are i n the results section. documented in this encounter Results Surgical pathology exam (09/15/2015 1:28 PM CDT) Component Value Ref Test Analysis Performed At [facility] gist Range Method Time Signature Copath Report Patient Name: MARIA E COLEY MR#: [id number] Specimen #: [id number] Collected: 09/15/2015 Received: 09/16/2015 Reported: 09/21/2015 10:42 Ordering Phy(s): RAISSA RIVERA Additional Phy(s): [facility]: [facility] ARCENIO OLIVAS SPECIMEN(S): A: Ileum biopsy B: Colon biopsy, transverse C: Colon biopsy, descending D: Rectosigmoid biopsy FINAL DIAGNOSIS: A: SMALL INTESTINE, ILEUM, BIOPSIES: - Intestinal mucosa with no significant histologic abnormali ties B: LARGE INTESTINE, TRANSVERSE COLON, BIOPSIES: - Crypt architecture distortion, consistent with healed prio r injury - Negative for active inflammation or dysplasia C: LARGE INTESTINE, DESCENDING COLON, BIOPSIES: - Crypt architecture distortion, consistent with healed prio r injury - Negative for active inflammation or dysplasia D: LARGE INTESTINE, RECTOSIGMOID COLON, BIOPSIES: - Colonic mucosa with no significant histologic abnormalitie s - No evidence of active or chronic colitis I have personally reviewed all specimens and or slides, incl uding the listed special stains, and used them with my medical judgeme nt to determine the final diagnosis. Electronically signed out by: Rochelle Chatman M.D., PhD, Physicians CLINICAL HISTORY: Patient is a 59 year old woman with a history of Crohn's dis ease. Colonoscopy findings: Patchy granularity throughout the colo n. Operative procedure: Colonoscopy with biopsies. GROSS: A: The specimen is received in formalin with proper patient' s identification, labeled ileum biopsy and consists of three brown main soft tissue fragments measuring 0.3 cm, 0.3 cm and 0.2 cm in maximal dimension. Entirely submitted in one cassette. B: The specimen is received in formalin with proper patient' s identification, labeled transverse colon biopsy and consis ts of six main soft tissue fragments measuring in aggregate 1.6 x 0.3 x 0.2 cm. Entirely submitted in one cassette. C. The specimen is received in formalin with proper patient' s identification, labeled descending colon biopsy and consis ts of multiple main soft tissue fragments measuring in aggregate 1. 6 x 0.5 x 0.2 cm. Entirely submitted in one cassette. D: The specimen is received in formalin with proper patient' s identification, labeled rectosigmoid colon biopsy and cons ists of three main soft tissue fragments measuring 0.3 cm, 0.3 cm and 0.1 cm in maximal dimension. Entirely submitted in one cassette. (Dict ated by: Jyoti Claros 09/16/2015 09:09 AM) MICROSCOPIC: Microscopic examination is performed. CPT Codes: A: 77175-RN3 B: 45022-LF2 C: 43709-SM8 D: 71661-DU2 TESTING LAB LOCATION: [facility], [facility] [address] [place], [place] ?? [address] COLLECTION SITE: Client: General acute hospital Location: [facility] (B) Specimen Anatomical Collection Method Collection Time Receive d Time (Source) Location / / Volume Laterality 09/15/2015 1:28 PM 8:15 CDT AM CDT Raissa Rivera MD [facility] - [facility] Organization Address City/State/ZIP Code Phon e Number [place] documented in this encounter Visit Diagnoses Not on filedocumented in this encounter Additional Health Concerns Assessment Noted Time PHQ-9 Depression Total Score: 14 05/13/2015 7:50 AM CS T documented as of this encounter Care Teams Clinical Nursing Intern Relationship Specialty Start Date End Date Arcenio Olivas MD PCP - General Family Practice 07/23/14 909 [facility] 4 [place], [place] [id number] Sheri Casey MD MD Pulmonary Disease 07/23/[address] [place] [id number] Alphonso Billy MD MD Cardiology 08/12/14 12/26/[address] [place] [address] 157295 Roland Holt MD Resident Student in [facility] 05/12/15 09/24/18 [facility] education/training program documented as of this encounter
--- OUTSIDE RECORDS SUMMARY | 2021-10-24 12:00 | XMS_ITS | Encounter Summary ---
:1955 Author Organization [place] Address [address] [place] [address] Care Team Providers Name Role Phone Edison Tam MD Primary Care Provider Sheri Casey MD Unavailable Alphonso Billy MD Unavailable Encounter Details Date Type Department Care Team Description 12/01/2014 Radiant Appointment [facility] Sheri Casey SOB (shortness of Center MD Laisha breath) Radhika-[address] Floor, Clinic [place], [place] [address] Mail Code [address] [place], [place] (Work) [address] Social History Tobacco Use Types Packs/Day Years [...] Priority Date/Time Associated Diagnosis Comme nts XR CHEST 2 VIEWS Routine 12/01/2014 10:33 AM SOB (shortness of Results for this CDT breath) procedure are i n the results section. documented in this encounter Results X-ray Chest 2 vws* (12/01/2014 10:33 AM CDT) Anatomical Region Laterality Modality Chest Computed Radiography Specimen (Source) Anatomical Location Collection Method / Collectio n Time Received Time / Laterality Volume Impressions 12/01/2014 10:43 PM CDT Impression: ??Negative chest radiograph. I have personally reviewed the examinati on and initial interpretation and I agree with the findings. JAKE WEATHERS MD Narrative 12/01/2014 10:43 PM CDT Exam: ??XR CHEST 2 VW, 12/01/2014 10:36 AM History: Shortness of breath Comparison: ??Chest radiograph from 07/25. Findings: ??PA and lateral views of the chest were obtained. Cardiac silhouette, pulmonary vasculature and me diastinal borders are within normal limits. No focal airspace opaciti es. No pneumothorax or pleural effusion. Procedure Note Jake Weathers MD - 12/01/2014F ormatting of this note might be different from the original. Exam: XR CHEST 2 VW, 12/01/2014 10:36 AM History: Shortness of breath Comparison: Chest radiograph from 013. Findings: PA and lateral views of the ch est were obtained. Cardiac silhouette, pulmonary vasculature and me diastinal borders are within normal limits. No focal airspace opaciti es. No pneumothorax or pleural effusion. IMPRESSION Impression: Negative chest radiograph. I have personally reviewed the examinati on and initial interpretation and I agree with the findings. JAKE WEATHERS MD Sheri Casey MD IMG DIAGNOSTIC IMAGING ORDER EB documented in this encounter Visit Diagnoses Diagnosis SOB (shortness of breath) Shortness of breath documented in this encounter Care Teams Manager Property Relationship Specialty Start Date End Date Edison Tam MD PCP - General Family Practice 07/23/14 9[address] [facility] 4 [place], [place] [phone] Sheri Casey MD MD Pulmonary Disease 07/23/14 420 [facility] 276 [place], [place] [phone] Alphonso Billy MD MD Cardiology 08/12/14 12/26/17 420 [place], [place] [phone] documented as of this encounter
--- OUTSIDE RECORDS SUMMARY | 2021-10-24 12:00 | XMS_ITS | Encounter Summary ---
:1955 Author Organization [place] Address [address] [place] [address] Care Team Providers Name Role Phone Edison Tam MD Primary Care Provider Sheri Casey MD Unavailable Alphonso Billy MD Unavailable Roland Holt MD Unavailable Encounter Details Date Type Department Care Team Description 07/12/2015 Radiant Appointment [facility] Charan Salazar C rohn's disease of both small and large intestine with complication (H); Center MRI Digestive-genital tract fistula, female; [address] 1[address] Floor [place], [place] [phone] Social History Tobacco Use Types Packs/Day [...] Priority Date/Time Associated Diagnosis Comme nts MR PELVIC BONES W/O Routine 07/12/2015 12:40 Crohn's disease o f Results for this & W CONTRAST PM CDT both small and large procedu re are in intestine with the results complication (H) section. Digestive-genital tract fistula, f emale Pneumaturia documented in this encounter Results MR Pelvis w/o & [...] se en, better demonstrated on this small [id number]-nd-hwpr pelvic study th an on 07/10/2012. It [...] se en, better demonstrated on this small ycopz-po-kmju pelvic study th an on 07/10/2012. It [...] disorders of urethra documented in this encounter Administered Medications Inactive Administered Medications - up to 3 most recent administrations Medication Order MAR Action Action Date Dose Rate Site gadobutrol (GADAVIST) injection Given 07/12/2015 11:49 AM CDT 7. 5 mLs 7.5 mL 7.5 mL, Intravenous, ONCE, On 07/12/15 at 1200, For 1 dose documented in this encounter Additional Health Concerns Assessment Noted Time PHQ-9 Depression Total Score: 14 05/13/2015 7:50 AM CS T documented as of this encounter Care Teams Dye Lab Technician Relationship Specialty Start Date End Date Edison Tam MD PCP - General Family Practice 07/23/14 909 [facility] 4 [place] [address] Sheri Casey MD MD Pulmonary Disease 07/23/14 420 [facility] 276 [place] [address] Alphonso Billy MD MD Cardiology 08/12/14 12/26/17 420 [place] [address] Roland Holt MD Resident Student in [facility] 05/12/15 09/24/18 health care education/training program documented as of this encounter
--- OUTSIDE RECORDS SUMMARY | 2021-10-24 12:00 | XMS_ITS | Encounter Summary ---
:1955 Author Organization [place] Address [address] [place] [address] Care Team Providers Name Role Phone Edison Tam MD Primary Care Provider Sheri Casey MD Unavailable Alphonso Billy MD Unavailable Roland Holt MD Unavailable Reason for Visit Reason Comments Clinic Care Coordination - Follow-up my chart msg and colon/rectal appt Encounter Details Date Type Department Care Team Description 07/14/2015 Care Coordination [facility] Car e Gastroenterology and IBD NANDINI Damon Coordination - Clinic [phone] Follow-up (my chart 909 [facility] (Work) msg and colon/rectal 4th Floor appt ) [place] [address] Social History Tobacco Use Types Packs/Day Years Used Date Former Smoker Cigarettes 1 18 11/11/1972 - 0 06/26/1981 Smokeless Tobacco: Former User Q uit: 09/20/1991 Alcohol Use Standard Drinks/Week Comments No 0 (1 standard drink = 0.6 oz pure alcoho l) Sex Assigned at Date Recorded Not on file documented as of this encounter Progress Notes Marisol Marcos RN - 07/14/2015 9:53 AM CDT Called patient to see if she had read her my chart message from Dr. Salazar and if she had any further questions. Patient is agreement with plan and will contact us if her symptoms increase in severityor change in symptoms. Aware that colon rectal clinic scheduler will call to arrange appointment. Referral to Michael - see Result Note from MR Pelvis 07/12/15. Would prefer her to be seen in the next 4-6wks if possible (sooner if canceled spot available). documented in this encounter Plan of Treatment Not on filedocumented as of this encounter Visit Diagnoses Not on filedocumented in this encounter Additional Health Concerns Assessment Noted Time PHQ-9 Depression Total Score: 14 05/13/2015 7:50 AM CS T documented as of this encounter Care Teams Chemical Laboratory Chief Relationship Specialty Start Date End Date Edison Tam MD PCP - General Family Practice 07/23/14 909 [facility] 4 [place], [place] [phone] Sheri Casey MD MD Pulmonary Disease 07/23/14 420 [facility] 276 [place], [place] [address] Alphonso Billy MD MD Cardiology 08/12/14 12/26/17 420 [place], [place] [address] Roland Holt MD Resident Student in [facility] 05/12/15 09/24/18 [facility] education/training program documented as of this encounter
--- OUTSIDE RECORDS SUMMARY | 2021-10-24 12:00 | XMS_ITS | Encounter Summary ---
:1955 Author Organization [place] Address [address] [place] [address] Care Team Providers Name Role Phone Edison Tam MD Primary Care Provider Sheri Casey MD Unavailable Alphonso Billy MD Unavailable Roland Holt MD Unavailable Amita Ryan MD Unavailable Encounter Details Date Type Department Care Team Description 12/19/2015 Orders Only [facility] Crohn's disease of large int estine with fistula (H); [address] [place] [address] SE Acquired hypothyroidism; 1st Floor Other abnormal glucose ; [place], [place] [phone] Current chronic use of syste melo steroids [phone] Social History Tobacco Use Types Packs/Day Years [...] Comme nts CBC WITH PLATELETS & Routine 12/19/2015 4:12 Crohn's disease o f Results for this DIFFERENTIAL PM CDT large intestine with procedu re are in fistula (H) the results section. TSH WITH FREE T4 Routine 12/19/2015 4:12 Acquired Results for this REFLEX PM CDT hypothyroidism procedure are in the results section. HEMOGLOBIN A1C Routine 12/19/2015 4:12 Other abnormal glucose Results for this PM CDT procedure are in Current chronic use of the r esults systemic steroids section. CRP INFLAMMATION Routine 12/19/2015 4:12 Crohn's disease of Re sults for this PM CDT large intestine with procedu re are in fistula (H) the results section. COMPREHENSIVE Routine 12/19/2015 4:12 Crohn's disease of Resul ts for this METABOLIC PANEL PM CDT large intestine with proc edure are in fistula (H) the results section. documented in this encounter Results Hemoglobin A1c (12/19/2015 4:12 PM CDT) athologist Signature Hemoglobin A1C 5.9 4.3 - 6.0 [facility] Specimen Anatomical Collection Method Collection Time Receive d Time (Source) Location / / Volume Laterality Blood specimen 12/19/2015 4:12 PM 016 4:14 (specimen) CDT PM CDT Edison Tam MD LAB - BLOOD ORDERABLES Performing Organization Address City/State/ZIP Code Phon e Number [address] CRP inflammation (12/19/2015 4:12 PM CDT) Analysis Performed At Patho logist Time Signature CRP Inflammation <2.9 0.0 - 8.0 [facility] mg/L [facility] Specimen Anatomical Collection Method Collection Time Receive d Time (Source) Location / / Volume Laterality Blood specimen 12/19/2015 4:12 PM 016 4:14 (specimen) CDT PM CDT Edison Tam MD LAB - BLOOD ORDERABLES Performing Organization Address City/[facility]/ZIP Code Phon e Number [address] TSH with free T4 reflex (12/19/2015 4:12 PM CDT) athologist Signature TSH 0.93 0.40 - 4.00 [facility] mU/L [facility] Specimen Anatomical Collection Method Collection Time Receive d Time (Source) Location / / Volume Laterality Blood specimen 12/19/2015 4:12 PM 016 4:14 (specimen) CDT PM CDT Edison Tam MD LAB - BLOOD ORDERABLES Performing Organization Address City/State/ZIP Code Phon e Number [address] [address] [facility] Comprehensive metabolic panel (12/19/2015 4:12 PM CDT) P athologist Signature Sodium 139 133 - 144 [facility] mmol/L [facility] Potassium 4.1 3.4 - 5.3 [facility] mmol/L [facility] Chloride 106 94 - 109 [facility] mmol/L [facility] Carbon Dioxide 25 20 - 32 [facility] mmol/L [facility] Anion Gap 8 3 - 14 [facility] mmol/L [facility] Glucose 90 70 - 99 [facility] mg/dL [facility] Urea Nitrogen 13 7 - 30 [facility] mg/dL [facility] Creatinine 0.85 0.52 - [facility] 1.04 mg/dL [facility] GFR Estimate 68 >60 [facility] mL/min/1.7 [place] m2 [facility] Comment: Non GFR Calc GFR Estimate If Black 83 >60 mL/min/1.7m2 [facility] Comment: GFR Calc Calcium 8.8 8.5 - 10.1 mg/dL [facility] Bilirubin Total 0.3 0.2 - 1.3 mg/dL [facility] Albumin 3.8 3.4 - 5.0 g/dL [facility] Protein Total 6.9 6.8 - 8.8 g/dL [facility] Alkaline Phosphatase 64 40 - 150 U/L [facility] ALT 29 0 - 50 U/L [facility] AST 16 0 - 45 U/L [facility] Specimen Anatomical Collection Method Collection Time Receive d Time (Source) Location / / Volume Laterality Blood specimen 12/19/2015 4:12 PM 016 4:14 (specimen) CDT PM CDT Edison Tam MD LAB - BLOOD ORDERABLES Performing Organization Address City/State/ZIP Code Phon e Number [address] [address] [facility] CBC with platelets differential (12/19/2015 4:12 PM CDT) [facility] Method Time Signature WBC 8.2 4.0 - [facility] 11.0 [place] 10e9/[facility] RBC Count 4.92 3.8 - 5.2 [facility] 10e12/L [facility] Hemoglobin 14.4 11.7 - [facility] 15.7 g/dL [facility] Hematocrit 43.4 35.0 - [facility] 47.0 % [facility] MCV 88 78 - 100 [facility] MCH 29.3 26.5 - [facility] 33.0 pg [facility] MCHC 33.2 31.5 - [facility] 36.5 g/dL [facility] RDW 12.5 10.0 - [facility] 15.0 % [facility] Platelet Count 263 150 - 450 [facility] 10e9/L [facility] Diff Method Automated [facility] Method [facility] % Neutrophils 76.2 % [facility] % Lymphocytes 13.7 % [facility] % Monocytes 8.4 % [facility] % Eosinophils 0.7 % [facility] % Basophils 0.4 % [facility] % Immature 0.6 % [facility] Granulocytes [facility] Nucleated RBCs 0 0 /100 [facility] Absolute 6.2 1.6 - 8.3 [facility] Neutrophil 10e9/L [facility] Absolute 1.1 0.8 - 5.3 [facility] Lymphocytes 10e9/L [facility] Absolute 0.7 0.0 - 1.3 [facility] Monocytes 10e9/L [facility] Absolute 0.1 0.0 - 0.7 [facility] Eosinophils 10e9/L [facility] Absolute 0.0 0.0 - 0.2 [facility] Basophils 10e9/L [facility] Abs Immature 0.1 0 - 0.4 [facility] Granulocytes 10e9/L [facility] Absolute 0.0 [facility] Nucleated RBC [facility] Specimen Anatomical Collection Method Collection Time Receive d Time (Source) Location / / Volume Laterality Blood specimen 12/19/2015 4:12 PM 016 4:14 (specimen) CDT PM CDT Edison Tam MD LAB - BLOOD ORDERABLES Performing Organization Address City/State/[facility] Phon e Number [address] [address] [facility] documented in this encounter Visit Diagnoses Diagnosis 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 Acquired hypothyroidism Unspecified hypothyroidism Other abnormal glucose Other abnormal glucose Current chronic use of systemic steroids documented in this encounter Additional Health Concerns Assessment Noted Time PHQ-9 Depression Total Score: 14 05/13/2015 7:50 AM CS T documented as of this encounter Care Teams Alternative Energy Technician Relationship Specialty Start Date End Date Edison Tam MD PCP - General Family Practice 07/23/[address] [place] [address] [id number] Sheri Casey MD MD Pulmonary Disease 07/23/14 420 [facility] 276 [place], [place] [address] Alphonso Billy MD MD Cardiology 08/12/14 12/26/17 420 [place], [place] [address] Roland Holt MD Resident Student in [facility] 05/12/15 09/24/18 [facility] education/training program Amita Ryan MD MD Internal Medicine 12/19/[address] [place] [address] [id number] [address] documented as of this encounter
--- OUTSIDE RECORDS SUMMARY | 2021-10-24 12:00 | XMS_ITS | Encounter Summary ---
:1955 Author Organization [facility] Address [address] [place] [id number] Care Team Providers Name Role Phone Edison Tam MD Primary Care Provider Sheri Casey MD Unavailable Alphonso Billy MD Unavailable Roland Holt MD Unavailable Reason for Visit Reason Comments Recheck Medication pt here for a medication fol low up Sinus Problem pt is here to discuss sinus issues x 1 month. Chest tightness, cough, ear pain. Encounter Details Date Type Department Care Team Description 08/15/2015 Office Visit [facility] Primary Care Edison Tam alpitations (Primary Dx); Clinic [facility] Thrush; [address] [place] [address] SOB (shortness of breath) [address]th Floor [address] [place] [id number] [phone] Social History Tobacco Use Types Packs/Day Years [...] Sign Reading Time Taken Comments Blood Pressure 103/70 08/15/2015 12:50 PM CDT Pulse 83 08/15/2015 1:23 PM CDT Temperature - - Respiratory Rate - - Oxygen Saturation 94% 08/15/2015 1:23 PM CDT Inhaled Oxygen Concentration - - Weight 58.9 kg (129 lb 12.8 oz) 08/15/2015 12:50 PM CDT Height - - Body Mass Index 23.74 07/04/2015 1:43 PM CDT documented in this encounter Patient Instructions Patient InstructionsSharri Faulkner CMA - 08/15/2015 12:50 PM CDT Primary Care Center Medication Refill Request Information: * Please contact your pharmacy regarding ANY request for medication refills. [facility] Prescription Fax = [phone] * Please allow 3 business days for [...] the results and signed off on them. documented in this encounter Progress Notes Edison Tam MD - 08/15/2015 12:52 PM CDT SUBJECTIVE: Maria E Coley is a 59-year-old female who has a history of Crohn's disease with fistulas. She comes in today feeling a sensation that when she is gardening, using a push mower and being exposed to grass she will feel a little bit of chest tightness and pressure in her lungs with aching-like cold symptoms. She calls it a low-grade sinus type infection, although she is not really having sinus symptoms. She has a little bit of pressure in her ears. She has been using Mucinex which is helpful. She is not using a nasal steroid at this time. She has to use chronic steroids for her Crohn's disease and does have a history of thrush. She notes that her thrush has recurred and is wondering if she could have a refill of her nystatin. She has also has HX exposure to carbon monoxide in the past but does not have exposure currently. She always worries about her lungs being damaged by the carbon monoxide exposure. She had normal pulmonary function in the past approximately 1 year ago and a normal CT scan of her lungs in 11/2014. She also is on Inderal or propranolol 20-mg tablet that she has used in the past to keep her heart rate down slightly because the chronic steroids have caused her heart rate to be slightly elevated. We are wondering if perhaps a lower dose of the Inderal might help with this pressure-type feeling in the lung. ROS: She denies any significant dyspnea and no significant cough. She has otherwise been feeling well. She has a history of spring and fall sensitivities not true allergy as previous testing was negative. She will have a followup with Colorectal because she is having some fistula concerns. Problem list, PMH, Surgical HX, FH, SH, allergies, medications,immunizations reviewed and updated in Epic. 5 point ROS negative other than noted in HPI and ROS. OBJECTIVE: BP 103/70 mmHg Pulse 83 Wt 58.877 kg (129 lb 12.8 oz) SpO2 94% ? No GENERAL: Objective examination reveals a female who is in no acute distress. She was knitting when Icame into the room. She is very pleasant. HEENT: Bilateral tympanic membranes are normal. Posterior pharynx is nonerythematous. Tongue is coated with a greenish brown coating consistent with thrush. Nasal mucosa is without swelling or lesion. NECK: Supple, no lymphadenopathy, no tenderness. LUNGS: Clear with good inspiration and expiration. CARDIAC: S1, S2, with regular rate and rhythm. Rate is around 90. ABDOMEN: Abdomen was not examined. ASSESSMENT AND PLAN: Maria E Coley is a 59-year-old female who presents today for chest type pressure. She is not having chest pain. This is more in response to exposure to grass with senstivities. Mucinex is helping. Reassurance was given. We discussed other options including pulmonary function again. She declined at this time as it was normal in the past. We are lowering dose of Inderal to 10 mg once daily to see if this also relieves her symptoms. She does have oral thrush. We discussed treatment of thrush 4 times per day with nystatin for 14 days with several refills as she is on chronic steroids and is wondering if the treatment of thrush might help with this pressure-type sensation she is experiencing. Maria E was seen today for recheck medication and Questionable sinus problem. Diagnoses and all orders for this visit: Palpitations Orders: - propranolol (INDERAL) 10 MG tablet; Take 1 tablet (10 mg) by mouth daily - PULSE OXIMETRY, SINGLE DETERMINATION; Future Thrush Orders: - nystatin (MYCOSTATIN) 390985 UNIT/ML suspension; Take 5 mLs (500,000 Units) by mouth 4 times dailyfor 14 days SOB (shortness of breath) Orders: - PULSE OXIMETRY, SINGLE DETERMINATION; Future All questions were addressed. She voiced understanding and agreement with the above. Edison Tam MD documented in this encounter Nursing Notes Sharri Faulkner CMA - 08/15/2015 12:54 PM CDT Pt declined colonoscopy today, and had eye exam about 6 months ago. Sharri Faulkner CMA at 12:54 PM on 08/15/2015 Sharri Faulkner CMA - 08/15/2015 12:49 PM CDT Chief Complaint Patient presents with ??? Recheck Medication pt here for a medication follow up ??? Sinus Problem pt is here to discuss sinus issues x 1 month. Chest tightness, cough, ear pain. Sharri Faulkner CMA at 12:49 PM on 08/15/2015 documented in this encounter Plan of Treatment Not on filedocumented as of this encounter Visit Diagnoses Diagnosis Palpitations - Primary Thrush Candidiasis of mouth SOB (shortness of breath) Shortness of breath documented in this encounter Additional Health Concerns Assessment Noted Time PHQ-9 Depression Total Score: 14 05/13/2015 7:50 AM CS T documented as of this encounter Care Teams Plant Pathology Teacher Relationship Specialty Start Date End Date Edison Tam MD PCP - General Family Practice 07/23/[address] [place] [address] [id number] Sheri Casey MD MD Pulmonary Disease 07/23/[address] [id number] Alphonso Billy MD MD Cardiology 08/12/14 12/26/17 [address] [place], [place] [id number] Roland Holt MD Resident Student in [facility] 05/12/15 09/24/18 health care education/training program documented as of this encounter
--- OUTSIDE RECORDS SUMMARY | 2021-10-24 12:00 | XMS_ITS | Encounter Summary ---
:1955 Author Organization [facility] Address [address] [place] [address] Care Team Providers Name Role Phone Edison Tam MD Primary Care Provider Sheri Casey MD Unavailable Alphonso Billy MD Unavailable Roland Holt MD Unavailable Amita Ryan MD Unavailable Reason for Referral Consultation - Closed Specialty Diagnoses / Procedures Referred By Contact Refer red To Contact Diagnoses Shortness of breath Edison Tam MD [address] [place], [place] [id number] 5 Referral ID Status Reason Start Date Expiration Date Visits Requ ested Visits Authorized [id number] Closed 12/19/2015 12/18/2016 1 1 Consultation - Closed Specialty Diagnoses / Procedures Referred By Contact Refer red To Contact Diagnoses Current chronic use of systemic steroids Thrush Throat pain Edison Tam MD [address] [place], [place] [id number] 5 Referral ID Status Reason Start Date Expiration Date Visits Requ ested Visits Authorized [id number] Closed 12/19/2015 12/18/2016 1 1 Reason for Visit Reason Comments Musculoskeletal Problem pt states having pain in bot h knees Sinus Problem pt feels like she has a cold , lungs hurt, congested Encounter Details Date Type Department Care Team Description 12/19/2015 Office Visit [facility] Primary Care Edison Tam ashimoto's thyroiditis (Primary Dx); Sybil Kennedy MD Connective tissue disorder (H); [address] [place] [address] Crohn's disease of large int estine with fistula (H); [address] [place] 4 Acquired hypothyroidism; [place], [place]; [id number] Thrush; [phone] Current chronic use of systemic steroids; (Work) Other abnormal glucose ; [phone] Shortness of br eath; (Fax) H/O screening m ammography; Encounter for s creening mammogram for malignant neoplasm of breast Social History Tobacco Use Types Packs/Day Years [...] Sign Reading Time Taken Comments Blood Pressure 124/82 12/19/2015 1:17 PM CDT Pulse 93 12/19/2015 1:17 PM CDT Temperature - - Respiratory Rate - - Oxygen Saturation 94% 12/19/2015 1:17 PM CDT Inhaled Oxygen Concentration - - Weight 58.7 kg (129 lb 8 oz) 12/19/2015 1:17 PM CDT Height - - Body Mass Index 23.69 12/02/2015 10:53 AM CDT documented in this encounter Patient Instructions Patient InstructionsMaría Arias - 12/19/2015 1:17 PM CDT Primary Care Center Medication Refill Request Information: * Please contact your pharmacy regarding ANY request for medication refills. [facility] Prescription Fax = [phone] * Please allow 3 business days for [...] the results and signed off on them. ENT [phone] (4th Floor [facility]) Pulmonary Rehab [phone] ([address]) Breast Center ([facility]) [phone] (2nd Floor [facility]) Breast Center ([facility]) [phone] ([address]) Mammogram Screening Tool Mammogram Does patient have a history of breast cancer? no Does patient have breast implants? no Reason for mammogram? annual documented in this encounter Progress Notes Edison Tam MD - 12/19/2015 1:50 PM CDT SUBJECTIVE: Maria E Coley is a 59-year-old female who has a history of Crohn's disease with fistulas. For the last month she has felt like she may have an infection and reports fatigue, congestion, runny nose, watery eyes, sore throat and sharp 4/10 chest pain that she describes as been similar to chest pain you feel after sprinting. She usually feels fine in the morning, but as the day goes on her symptoms worsen. She believes that Vitamin C helps relieve her symptoms. She is concerned that she have allergies, possibly to her cats. She has worsening shortness of breath and has had trouble walking up her stairs with her laundry. She has noticed her appetite has been decreasing. She has to use a knee brace on her right knee and has pain if she walks too long. She describes the pain as achy and thinking it maybe arthritis. In the end of November she took a long walk and noticed a sudden sharp pain on the medial side of her left knee and thinks she had strained her medial collateral ligament, since then she has had achy pain with over use. Icing her knees helps with the pain. She has to use chronic steroids for her Crohn's disease and does have a history of thrush. She notesthat her thrush has recurred and is wondering [...] CT scan of her lungs in 11/2014. Health care maintenance: Discussed need for mamogram ROS: She denies coughing up sputum and she experiences chest pain lying down and sitting up, she hasnot been losing a significant amount of weight. She has a history of spring and fall sensitivities not true allergy as previous testing was negative. Reviewed ultrasound of her kidney stable cyst. Patient Active Problem List Diagnosis ??? Yossi's [...] ??? Digestive-genital tract fistula, female ??? Pneumaturia Past Medical History Diagnosis Date ??? Crohn's [...] ??? Anemia Result of CO poisoning and termite helper prednisone use? History of blood transfusion N/A [...] Chronic diarrhea ??? Fecal incontinence thru fistulas Problem list, PMH, Surgical HX, FH, SH, allergies, medications,immunizations reviewed and updated in Epic. 5 point ROS negative other than noted in HPI and ROS. OBJECTIVE: BP 124/82 mmHg Pulse 93 Wt 58.741 kg (129 lb 8 oz) SpO2 94% GENERAL: Objective examination reveals a female who is in no acute distress. She was knitting when Icame into the room. She is very pleasant. HEENT: Bilateral tympanic membranes are normal. Posterior pharynx is erythematous with a possible ulcerated lesion on the right side. Tongue is coated with a greenish brown coating consistent with thrush. Nasal mucosa is without swelling or lesion. NECK: Supple, no lymphadenopathy, no tenderness. LUNGS: Clear with good inspiration and expiration. CARDIAC: S1, S2, with regular rate and rhythm. Rate is around 90. ABDOMEN: Abdomen was not examined. MUSCULOSKELETAL: She has no significant swelling of her knees and Stefan Test was same of both knees. No pain with testing. ASSESSMENT AND PLAN: Maria E Coley is a 59-year-old female who presents today for chest type pressure and dyspnea. She is not having chest pain. She also has sore throat and thrush. She has an ulcerated area on her posterior pharynx. I believe she should consult with an HEENT specialist to take a closer look at her lesion in her pharynx. We discussed other options including pulmonary function again and she would like to see a pharmacy buyer for her dyspnea. She is wondering about allergies: This is more in response to exposure to grass with senstivities and a possible viral infection of her posterior pharynx. She likes to regularly check her blood sugar levels as she in on prednisone and would like more teststrips. Her knee doesn't appear very swollen and Stefan test was negative and I don't believe we need to doa scan of her knees. Continue with exercise and support She does have oral thrush. We discussed treament of thrush 4 times per day with nystatin for 10 dayswith several refills as she is on chronic steroids. Recommended lowering ehr dose of Vitamin C to no more than 500 mg daily Maria E was seen today for musculoskeletal problem and sinus problem. Diagnoses and all orders for this visit: Yossi's thyroiditis Connective tissue disorder (H) 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) - CBC with platelets differential; Future - Comprehensive metabolic panel; Future - CRP inflammation; Future Acquired hypothyroidism - TSH with free T4 reflex; Future Throat pain - Throat Culture Aerobic Bacterial - Yeast culture; Future - Cancel: Rapid strep group A screen POCT; Future - OTOLARYNGOLOGY REFERRAL - Rapid strep group A screen POCT Thrush - Throat Culture Aerobic Bacterial - nystatin (MYCOSTATIN) 600310 UNIT/ML suspension; Take 5 mLs (500,000 Units) by mouth 4 times dailyfor 10 days - OTOLARYNGOLOGY REFERRAL Current chronic use of systemic steroids - Hemoglobin A1c; Future - OTOLARYNGOLOGY REFERRAL Other abnormal glucose - Hemoglobin A1c; Future - blood glucose monitoring (NO BRAND SPECIFIED) test strip; Use to test blood sugars one times dailyor as directed Shortness of breath - PULMONARY MEDICINE REFERRAL H/O screening mammography - Mammo Screening digital (bilat); Future Encounter for screening mammogram for malignant neoplasm of breast - Mammo Screening digital (bilat); Future All questions were addressed. She voiced understanding and agreement with the above. Марина Marquez Medical Student Y2, acted as a scribe for Dr. Levi The medical student acted as scribe and the encounter documented above was completely performed by myself. Supervising Doctor Edison Tam MD documented in this encounter Nursing Notes María Arias Anayeli - 12/19/2015 1:17 PM CDT Chief Complaint Patient presents with ??? Musculoskeletal Problem pt states having pain in both knees ??? Sinus Problem pt feels like she has a cold, lungs hurt, congested María Arias CMA at 1:17 PM on 12/19/2015. documented in this encounter Plan of Treatment Scheduled Referrals Name Type Priority Associated Diagnoses Order S chedule OTOLARYNGOLOGY REFERRAL Referral Routine Current chronic u se of Ordered: 12/19/2015 systemic steroid s Thrush Throat pain PULMONARY MEDICINE Referral Routine Shortness of breath Or dered: 12/19/2015 REFERRAL documented as of this encounter Procedures Procedure Name Priority Date/Time Associated Diagnosis Comme nts THROAT CULTURE Routine 12/19/2015 2:40 PM Throat pain Results for this AEROBIC BACTERIAL CDT Thrush procedure are in the results section. RAPID STREP GROUP A Routine 12/19/2015 2:40 PM Throat pain Re sults for this SCREEN POCT CDT procedure are i n the results section. documented in this encounter Results Hemoglobin A1c (12/19/2015 4:12 PM CDT) P athologist Signature Hemoglobin A1C 5.9 4.3 - 6.0 [facility] Specimen Anatomical Collection Method Collection Time Receive d Time (Source) Location / / Volume Laterality Blood specimen 12/19/2015 4:12 PM 016 4:14 (specimen) CDT PM CDT Edison Tam MD LAB - BLOOD ORDERABLES Performing Organization Address City/[facility] Phon e Number [address] [address] [facility] CRP inflammation (12/19/2015 4:12 PM CDT) Analysis Performed At Patho logist Time Signature CRP Inflammation <2.9 0.0 - 8.0 [facility] mg/L [facility] Specimen Anatomical Collection Method Collection Time Receive d Time (Source) Location / / Volume Laterality Blood specimen 12/19/2015 4:12 PM 016 4:14 (specimen) CDT PM CDT Edison Tam MD LAB - BLOOD ORDERABLES Performing Organization Address City/State/ZIP Code Phon e Number [facility] [address] [place] [address] [facility] TSH with free T4 reflex (12/19/2015 4:12 PM CDT) athologist Signature TSH 0.93 0.40 - 4.00 [facility] mU/L [facility] Specimen Anatomical Collection Method Collection Time Receive d Time (Source) Location / / Volume Laterality Blood specimen 12/19/2015 4:12 PM 016 4:14 (specimen) CDT PM CDT Edison Tam MD LAB - BLOOD ORDERABLES Performing Organization Address City/[facility]/ZIP Code Phon e Number [address] [address] [facility] Comprehensive metabolic panel (12/19/2015 4:12 PM CDT) athologist Signature Sodium 139 133 - 144 [facility] mmol/L [facility] Potassium 4.1 3.4 - 5.3 [facility] mmol/L [facility] Chloride 106 94 - 109 [facility] mmol/L [facility] Carbon Dioxide 25 20 - 32 [facility] mmol/L [facility] Anion Gap 8 3 - 14 [facility] mmol/L [facility] Glucose 90 70 - 99 [facility] mg/dL [facility] Urea Nitrogen 13 7 - 30 [facility] mg/dL [facility] Creatinine 0.85 0.52 - [facility] 1.04 mg/dL [facility] GFR Estimate 68 >60 [facility] mL/min/1.7 [place] m2 [facility] Comment: Non GFR Calc GFR Estimate If Black 83 >60 mL/min/1.7m2 U [facility] Comment: GFR Calc Calcium 8.8 8.5 - 10.1 mg/dL [facility] Bilirubin Total 0.3 0.2 - 1.3 mg/dL [facility] Albumin 3.8 3.4 - 5.0 g/dL [facility] Protein Total 6.9 6.8 - 8.8 g/dL [facility] Alkaline Phosphatase 64 40 - 150 U/L [facility] ALT 29 0 - 50 U/L [facility] AST 16 0 - 45 U/L [facility] Specimen Anatomical Collection Method Collection Time Receive d Time (Source) Location / / Volume Laterality Blood specimen 12/19/2015 4:12 PM 016 4:14 (specimen) CDT PM CDT Edison Tam MD LAB - BLOOD ORDERABLES Performing Organization Address City/State/ZIP Code Phon e Number [address] [address] [facility] CBC with platelets differential (12/19/2015 4:12 PM CDT) [facility] gist Method Time Signature WBC 8.2 4.0 - [facility] 11.0 [place] 10e9/[facility] RBC Count 4.92 3.8 - 5.2 [facility] 10e12/L [facility] Hemoglobin 14.4 11.7 - [facility] 15.7 g/dL [facility] Hematocrit 43.4 35.0 - [facility] 47.0 % [facility] MCV 88 78 - 100 [facility] MCH 29.3 26.5 - [facility] 33.0 pg [facility] MCHC 33.2 31.5 - [facility] 36.5 g/dL [facility] RDW 12.5 10.0 - [facility] 15.0 % [facility] Platelet Count 263 150 - 450 [facility] 10e9/L [facility] Diff Method Automated [facility] Method [facility] % Neutrophils 76.2 % [facility] % Lymphocytes 13.7 % [facility] % Monocytes 8.4 % [facility] % Eosinophils 0.7 % [facility] % Basophils 0.4 % [facility] % Immature 0.6 % [facility] Granulocytes [facility] Nucleated RBCs 0 0 /100 [facility] Absolute 6.2 1.6 - 8.3 [facility] Neutrophil 10e9/L [facility] Absolute 1.1 0.8 - 5.3 [facility] Lymphocytes 10e9/L [facility] Absolute 0.7 0.0 - 1.3 [facility] Monocytes 10e9/L [facility] Absolute 0.1 0.0 - 0.7 [facility] Eosinophils 10e9/L [facility] Absolute 0.0 0.0 - 0.2 [facility] Basophils 10e9/L [facility] Abs Immature 0.1 0 - 0.4 [facility] Granulocytes 10e9/L [facility] Absolute 0.0 [facility] Nucleated RBC [facility] Specimen Anatomical Collection Method Collection Time Receive d Time (Source) Location / / Volume Laterality Blood specimen 12/19/2015 4:12 PM 016 4:14 (specimen) CDT PM CDT Edison Tam MD LAB - BLOOD ORDERABLES Performing Organization Address City/State/[facility] Code Phon e Number [address] [address] [facility] Rapid strep group A screen POCT (12/19/2015 2:40 PM CDT) P athologist Signature Rapid Strep A negative neg Screen Internal QC OK Yes Specimen (Source) Anatomical Collection Method Collection Time Re ceived Time Location / / Volume Laterality Throat swab 12/19/2015 2:40 PM (specimen) CDT Edison Tam MD LAB - ENTER/EDIT POCT Throat Culture Aerobic Bacterial (12/19/2015 2:40 PM CDT) Patholo gist Method Time Signature Specimen Throat [facility] Culture Micro Heavy INFECTIOUS growth DISEASE Normal DIAGNOSTIC [facility] LAB[facility]AT[facility] Micro Report FINAL INFECTIOUS Status 12/21/2015 DISEASE DI[facility] LABORATORY Specimen Anatomical Collection Method Collection Time Receive d Time (Source) Location / / Volume Laterality Specimen from 12/19/2015 2:40 PM 12/19/19 16 3:02 throat CDT PM CDT (specimen) Edison Tam MD LAB - MICRO GENERAL ORDERABL ES Performing Organization Address City/State/ZIP Code Phon e Number INFECTIOUS DISEASES [address] [place] [address] DIAGNOSTIC LABORATORY, [address] [phone] [facility] INFECTIOUS DISEASE [address] [place], [place] [id number] [place] [address] DIAGNOSTIC LABORATORY documented in this encounter Visit Diagnoses Diagnosis Yossi's thyroiditis - Primary Chronic lymphocytic thyroiditis Connective tissue disorder (H) Unspecified diffuse connective tissue di sease 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 Acquired hypothyroidism Unspecified hypothyroidism Throat pain Thrush Candidiasis of mouth Current chronic use of systemic steroids Other abnormal glucose Other abnormal glucose Shortness of breath H/O screening mammography Other specified personal history present ing hazards to health Encounter for screening mammogram for ma lignant neoplasm of breast Other screening mammogram documented in this encounter Additional Health Concerns Assessment Noted Time PHQ-9 Depression Total Score: 14 05/13/2015 7:50 AM CS T documented as of this encounter Care Teams Research Nurse Relationship Specialty Start Date End Date Edison Tam MD PCP - General Family Practice 07/23/[address] [place] [address] 4 [place], [place] [id number] Sheri Casey MD MD Pulmonary Disease 07/23/14 [address] [facility] [address] [place], [place] [address] Alphonso Billy MD MD Cardiology 08/12/14 12/26/[address] [place] [address] [id number] Roland Holt MD Resident Student in [facility] 05/12/15 09/24/18 [facility] education/training program Amita Ryan MD MD Internal Medicine 12/19/[address] [place] [address] [id number] [place], [place] [id number] documented as of this encounter
--- OUTSIDE RECORDS SUMMARY | 2021-10-24 12:00 | XMS_ITS | Encounter Summary ---
:1955 Author Organization [facility] Address [address] [place] [id number] Care Team Providers Name Role Phone Edison Tam MD Primary Care Provider Sheri Casey MD Unavailable Alphonso Billy MD Unavailable Reason for Visit Reason Comments Consult New consult on CO2 exposure Encounter Details Date Type Department Care Team Description 12/01/2014 Office Visit [facility] Sheri Casey Abnorm leatha chest x-ray Svitlana Interiano MD (Primary Dx) 3rd Floor, Clinic [address]A [id number] [place] [address] [phone] (Work) [phone] Social History Tobacco Use Types Packs/Day Years [...] Sign Reading Time Taken Comments Blood Pressure 96/62 12/01/2014 1:09 PM CDT Pulse 93 12/01/2014 1:09 PM CDT Temperature 37.1 ??C (98.8 ??F) 12/01/2014 1:09 PM CDT Respiratory Rate 18 12/01/2014 1:09 PM CDT Oxygen Saturation 93% 12/01/2014 1:09 PM CDT RA Inhaled Oxygen Concentration - - Weight 58.3 kg (128 lb 8 oz) 12/01/2014 1:09 PM CDT Height 157.5 cm (5' 2) 12/01/2014 1:09 PM CDT Body Mass Index 23.5 12/01/2014 1:09 PM CDT documented in this encounter Progress Notes Sheri Casey MD - 12/01/2014 1:13 PM CDT Reason for Visit Maria E Coley is a 59 year old female who is referred by Dr Tam for carbon monoxide poisoning Pulmonary HPI I've been getting carbon monoxide poisoning and wanted to get my lungs checked For several anderson, she experienced vague symptoms of fatigue, nausea. She reports losing consciousness in June of this year and her neighbor also thought something was off. They called the [employer] to test and no gas leak detected but they did detect CO (reportedly too low of level to register on her CO detector at home). She has a portable CO detector. She has oxygen at home to use when she feels like or when the detector alarms. She can tell when theCO level gets to 2-5 ppm. She uses 1 lpm with the nasal cannula perched on the vermilion border of her lip. On August 09, she was in traffic and had a level checked that was above the limit of normal. Shealso reports having a Lupus-like syndrome, variable seropositivity and rheumatologic opinion. She also saw cardiology. Reports chronic rhinitis, takes guaifenesin for this. She reports the cough was worse when her CO levels were high. Boiler has been condemned and being replaced today actually. Previous therapies: none Oxygen: nasal cannula at 1 liters per minute prn The patient was seen and examined by Sheri Casey MD Current Outpatient Prescriptions Medication ??? rOPINIRole (REQUIP) 1 MG tablet ??? predniSONE (DELTASONE) 5 MG tablet ??? Levothyroxine Sodium 50 MCG CAPS ??? propranolol (INDERAL) 20 MG tablet ??? ORDER FOR DME, SET TO LOCAL PRINT, ??? UNABLE TO FIND ??? cyanocobalamin (VITAMIN B12) 1000 MCG/ML injection ??? predniSONE (DELTASONE) 1 MG tablet ??? Nutritional Supplements (ROCÍO COMPLEX PO) ??? L-Lysine 500 MG TABS ??? ORDER FOR DME ??? venlafaxine (EFFEXOR-XR) 75 MG 24 hr capsule ??? cholecalciferol (VITAMIN D) 1000 UNIT tablet ??? acetaminophen (TYLENOL) 500 MG tablet ??? Potassium Chloride CR 8 MEQ CPCR ??? buPROPion (WELLBUTRIN SR) 150 MG 12 hr tablet ??? ALPRAZolam (XANAX) 0.5 MG tablet ??? multivitamin (THERA-PLUS) LIQD ??? Carboxymethylcellulose Sodium (REFRESH TEARS OP) ??? fluorouracil (EFUDEX) 5 % cream ??? guaiFENesin (MUCINEX) 600 MG 12 hr tablet ??? Menthol, Topical Analgesic, (ICY HOT EX) ??? Calcium Citrate-Vitamin D (CITRACAL + D PO) No current facility-administered medications for this visit. Allergies Allergen Reactions ??? Humira Rash ??? [...] Profound lethargy ??? Tramadol Itching and Rash History Social History ??? Marital Status: Single Spouse Name: N/A Number of Children: N/A ??? Years of Education: N/A Occupational History ??? Not on file. Social History Main Topics ??? Smoking status: Former Smoker -- 1.00 packs/day for 18 years ??? Smokeless tobacco: Former User Quit date: 09/20/1991 ??? Alcohol Use: No ??? Drug Use: No Comment: no longer ??? Sexual Activity: Partners: Male Comment: twice Other Topics Concern ??? Not on file Social History Narrative Moved to [place] from [facility]. She is living in an apartment accessible. Past Medical History Diagnosis Date ??? Crohn's 1977 on prednisone chronically ??? Osteoporosis ??? Fracture of wrist fall ??? Narcotic dependence, in remission rehab ??? Nicotine dependence in remission ??? Menarche 9 y.o menapuase age 40 was on prednisone ??? Fibromyalgia ??? Lupus has had positive flare ups ??? Bunion ??? Arthritis ??? Anxiety ??? Depression ??? Malignant neoplasm hand skin cancer (left) ??? Yossi's disease ??? 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 [...] OR MULTIPLE;; Surgeon: Charan Salazar MD; Location: GI ??? Repair nerve microscopic upper extremity 04/16/2013 Procedure: REPAIR NERVE MICROSCOPIC UPPER EXTREMITY; Left Index Finger Digital Nerve Repair with Nuerogen tibe; Surgeon: Marisol Hathaway MD; Location: OR Family History Problem Relation Age of Onset ??? Arthritis Sister Sjogrens twin sister ??? Neurologic Disorder Sister Multiple sclerosis older sister ??? Cancer Mother 68 Lung ??? Endocrine Disease Mother Hashimotos ??? Endocrine Disease Sister Hashimotos both sisters ??? Colon Cancer No family hx of ??? Crohn Disease No family hx of ??? Ulcerative Colitis No family hx of ??? Colon Polyps No family hx of ROS Pulmonary Dyspnea: No, Cough: No, Chest pain: No, Wheezing: No, Sputum Production: No, Hemoptysis: No A complete ROS was otherwise negative except as noted in the HPI. BP 96/62 mmHg Pulse 93 Temp(Src) 98.8 ??F (37.1 ??C) (Oral) Resp 18 Ht 1.575 m (5' 2) Wt 58.287 kg (128 lb 8 oz) BMI 23.50 kg/m2 SpO2 93% Exam: GENERAL APPEARANCE: Well developed, well nourished, alert, and in no apparent distress. EYES: PERRL, EOMI HENT: Nasal mucosa with no edema and no hyperemia. No nasal polyps. EARS: Canals clear, TMs normal MOUTH: Oral mucosa is moist, without any lesions, no tonsillar enlargement, no oropharyngeal exudate. NECK: supple, no masses, no thyromegaly. LYMPHATICS: No significant axillary, cervical, or supraclavicular nodes. RESP: normal percussion, good air flow throughout. No crackles. No rhonchi. No wheezes. CV: Normal S1, S2, regular rhythm, normal rate. No murmur. No rub. No gallop. No LE edema. ABDOMEN: Bowel sounds normal, soft, nontender, no HSM or masses. MS: extremities normal. No clubbing. No cyanosis. SKIN: no rash on limited exam NEURO: Mentation intact, speech normal, normal strength and tone, normal gait and stance PSYCH: mentation appears normal. and affect normal/bright Results: Normal PFTs today; CXR reviewed, Right upper lung opacity not previously noted in 2013 Assessment and plan: Maria E is a 59-year-old female who is being evaluated today for chronic carbon monoxide poisoning. She reports symptoms consistent with and has had at least 1 abnormal carbon monoxide level. It sounds like she has identified a source in her home with a defective boiler which is being replaced but also has a monitor and has noted elevated levels in traffic, which is not necessarily surprising. However, she seems to be somewhat sensitive to this and experiences some vague symptomswhich can be consistent with carbon monoxide poisoning. There are no medical conditions or lung diseases which would predispose her to CO poisoning and she has normal pulmonary function testing, no symptoms of any cardiopulmonary disease. Therefore, I do not think is anything to be done for this carbon monoxide poisoning and I am not really sure if testing as she has been doing and using oxygen is really necessary; however, she believes it helps her and certainly from a pathophysiologic standpoint oxygen does reduce carbon monoxide levels so she has paid for the oxygen for herself and is using it. She did get a chest x-ray today as part of her evaluation and I noted an opacity which appears to benew from the most recent chest x-ray 2012. The CT showed a healing rib fracture is responsible for the opacity, no lung nodules noted but a breast nodule was seen and mammogram recommended. Total visit time 45, over 50% of which (30 minutes) was spent in counseling and/or coordination of care. RTC prn documented in this encounter Nursing Notes Moy Philip CMA - 12/01/2014 1:08 PM CDT Chief Complaint Patient presents with ??? Consult New consult on CO2 exposure Moy Philip CMA at 1:08 PM on 12/01/2014 documented in this encounter Plan of Treatment Not on filedocumented as of this encounter Results CT Chest w/o contrast [...] encounter Visit Diagnoses Diagnosis Abnormal chest x-ray - Primary Other nonspecific abnormal finding of quinten ng field Abnormal chest x-ray Other nonspecific abnormal finding of quinten ng field documented in this encounter Care Teams Linux Unix Administrator Relationship Specialty Start Date End Date Edison Tam MD PCP - General Family Practice 07/23/14 909 [facility] 4 [place] [address] Sehri Casey MD MD Pulmonary Disease 07/23/14 420 [facility] [address] [place] [address] Alphonso Billy MD MD Cardiology 08/12/14 12/26/17 420 [place], [place] [id number] documented as of this encounter
--- OUTSIDE RECORDS SUMMARY | 2021-10-24 12:00 | XMS_ITS | Encounter Summary ---
:1955 Author Organization [facility] Address [address] [place] [address] Care Team Providers Name Role Phone Edison Tam MD Primary Care Provider Sheri Casey MD Unavailable Alphonso Billy MD Unavailable Roland Holt MD Unavailable Reason for Visit Reason Onset Date Comments Pt. Information/instruction 09/07/2015 Encounter Details Date Type Department Care Team Description 09/07/2015 Telephone [facility] Laci Rodriguez [facility] MD Saeid Information/instructio [address] [place] [id number] [phone] Social History Tobacco Use Types Packs/Day Years [...] documented as of this encounter Care Teams Administration Internship Relationship Specialty Start Date End Date Edison Tam MD PCP - General Family Practice 07/23/14 909 [facility] 4 [place] [address] Sheri Casey MD MD Pulmonary Disease 07/23/14 420 [facility] [address] [place] [address] Alphonso Billy MD MD Cardiology 08/12/14 12/26/17 420 [place] [address] Roland Holt MD Resident Student in [facility] 05/12/15 09/24/18 health care education/training program documented as of this encounter
--- OUTSIDE RECORDS SUMMARY | 2021-10-24 12:01 | XMS_ITS | Encounter Summary ---
:1955 Author Organization [facility] Address [address] [place] [address]. [place] [address] Care Team Providers Name Role Phone Edison Tam MD Primary Care Provider Sheri Casey MD Unavailable Alphonso Billy MD Unavailable Encounter Details Date Type Department Care Team Description 08/12/2014 Medical Correspondence [facility], [facility]- Health Info Mgmt Non-Provider PORTABLE O2 , Srvcs 08/12/[address] [place] [phone] Social History Tobacco Use Types Packs/Day Years Used Date Former Smoker 1 18 Smokeless Tobacco: Former User Q uit: 09/20/1991 Alcohol Use Standard Drinks/Week Comments No 0 (1 standard drink = 0.6 oz pure alcoho l) Sex Assigned at Date Recorded Not on file documented as of this encounter Plan of Treatment Not on filedocumented as of this encounter Visit Diagnoses Not on filedocumented in this encounter Care Teams Shoe Associate Relationship Specialty Start Date End Date Edison Tam MD PCP - General Family Practice 07/23/14 909 [facility] 4 [place] [address] Sheri Casey MD MD Pulmonary Disease 07/23/14 420 [facility] [address] [place] [address] Alphonso Billy MD MD Cardiology 08/12/14 12/26/[address] [place] [phone] documented as of this encounter
--- OUTSIDE RECORDS SUMMARY | 2021-10-24 12:01 | XMS_ITS | Encounter Summary ---
:1955 Author Organization [facility] Address [address] [place] [address] Care Team Providers Name Role Phone Edison Tam MD Primary Care Provider Sheri Casey MD Unavailable Alphonso Billy MD Unavailable Reason for Visit Reason Onset Date Comments Orders 09/24/2014 [facility] Encounter Details Date Type Department Care Team Description 09/24/2014 Telephone [facility], Primary Edison Tam, Orders ([facility] 3rd Floor, Clinic [address] [place] [address] [place] [address] [place] [phone] Social History Tobacco Use Types Packs/Day Years Used Date Former Smoker 1 18 Smokeless Tobacco: Former User Q uit: 09/20/1991 Alcohol Use Standard Drinks/Week Comments No 0 (1 standard drink = 0.6 oz pure alcoho l) Sex Assigned at Date Recorded Not on file documented as of this encounter Miscellaneous Notes Telephone Encounter - Blaire Gage, RN - 09/24/2014 11:03 AM CDT ----- Message from Cyn Cerda sent at 09/24/2014 9:14 AM CDT ----- Regarding: Pt needs new script for oxygen Contact: Please call Rosalind. She sent Dr. Tam a script to be signed so this pt could get oxygen and is concerned that she needs to send it to another doctor since Dr. Tam is out. Please call her to let her know who will be signing off on this. Pt is planning on going to [place] and needs her oxygen beforehand. Order faxed. Blaire Gage RN 11:04 AM on 09/24/2014. documented in this encounter Plan of Treatment Not on filedocumented as of this encounter Visit Diagnoses Not on filedocumented in this encounter Care Teams Vocational Services Specialist Relationship Specialty Start Date End Date Edison Tam MD PCP - General Family Practice 07/23/14 909 [facility] 4 [place], [place] [phone] Sheri Casey MD MD Pulmonary Disease 07/23/14 420 [facility] [address] [place], [place] [id number] Alphonso Billy MD MD Cardiology 08/12/14 12/26/17 420 [place], [place] [phone] documented as of this encounter
--- OUTSIDE RECORDS SUMMARY | 2021-10-24 12:01 | XMS_ITS | Encounter Summary ---
:1955 Author Organization [place] Address [address] [place] [address] Care Team Providers Name Role Phone Edison Tam MD Primary Care Provider Encounter Details Date Type Department Care Team Description 01/27/[address] [facility] Charan Salazar MD Inflammatory bowel disease (Crohn's dise ase) (H); [address] Pneumaturia Laboratory [place], [place] 500 [facility] [address] [place], [place] [phone] (Wo rk) [phone] Social History Tobacco Use Types Packs/Day Years [...] Name Priority Date/Time Associated Diagnosis Comme nts ZINC Routine 01/27/2014 10:55 Inflammatory bowel Resul ts for this AM INDUSTRIAL RELATIONS REPRESENTATIVE disease (Crohn's procedure a re in disease) (H) the results Pneumaturia section. CBC WITH PLATELETS & Routine 01/27/2014 10:55 Inflammatory bow el Results for this DIFFERENTIAL AM INDUSTRIAL RELATIONS REPRESENTATIVE disease (Crohn's procedure a re in disease) (H) the results Pneumaturia section. IRON AND IRON BINDING Routine 01/27/2014 10:55 Inflammatory ricki wel Results for this CAPACITY AM INDUSTRIAL RELATIONS REPRESENTATIVE disease (Crohn's procedure a re in disease) (H) the results Pneumaturia section. HEPATIC FUNCTION PANEL Routine 01/27/2014 10:55 Inflammatory b owel Results for this AM INDUSTRIAL RELATIONS REPRESENTATIVE disease (Crohn's procedure a re in disease) (H) the results Pneumaturia section. FOLATE Routine 01/27/2014 10:55 Inflammatory bowel Resul ts for this AM INDUSTRIAL RELATIONS REPRESENTATIVE disease (Crohn's procedure a re in disease) (H) the results Pneumaturia section. FERRITIN Routine 01/27/2014 10:55 Inflammatory bowel Resul ts for this AM INDUSTRIAL RELATIONS REPRESENTATIVE disease (Crohn's procedure a re in disease) (H) the results Pneumaturia section. ERYTHROCYTE Routine 01/27/2014 10:55 Inflammatory bowel Resul ts for this SEDIMENTATION RATE AM INDUSTRIAL RELATIONS REPRESENTATIVE disease (Crohn's proce dure are in AUTO disease) (H) the results Pneumaturia section. CRP INFLAMMATION Routine 01/27/2014 10:55 Inflammatory bowel R esults for this AM INDUSTRIAL RELATIONS REPRESENTATIVE disease (Crohn's procedure a re in disease) (H) the results Pneumaturia section. VITAMIN B12 Routine 01/27/2014 10:55 Inflammatory bowel Resul ts for this AM INDUSTRIAL RELATIONS REPRESENTATIVE disease (Crohn's procedure a re in disease) (H) the results Pneumaturia section. BASIC METABOLIC PANEL Routine 01/27/2014 10:55 Inflammatory ricki wel Results for this AM INDUSTRIAL RELATIONS REPRESENTATIVE disease (Crohn's procedure a re in disease) (H) the results Pneumaturia section. ROUTINE UA WITH Routine 01/27/2014 10:22 Inflammatory bowel Re sults for this MICROSCOPIC REFLEX TO AM INDUSTRIAL RELATIONS REPRESENTATIVE disease (Crohn's pr ocedure are in CULTURE disease) (H) the results Pneumaturia section. documented in this encounter Results Hepatic panel (01/27/2014 10:55 AM INDUSTRIAL RELATIONS REPRESENTATIVE) athologist Signature Bilirubin 0.1 0.0 - 0.2 [facility] Direct mg/dL [facility] Comment: Effective 10/07/2013 all values are a sum mation of both the conjugated and delta bilirubin fractions. Effective 10/07/2013, the reference rang e for this assay has changed to reflect new instrumentation/methodology. Bilirubin Total 0.2 0.2 - 1.3 mg/dL [facility] Albumin 3.6 3.4 - 5.0 g/dL [facility] Protein Total 6.8 6.8 - 8.8 g/dL [facility] Alkaline Phosphatase 70 40 - 150 U/L [facility] ALT 35 0 - 50 U/L [facility] AST 27 0 - 45 U/L [facility] Specimen Anatomical Collection Method Collection Time Receive d Time (Source) Location / / Volume Laterality Blood specimen 01/27/2014 10:55 4 (specimen) AM INDUSTRIAL RELATIONS REPRESENTATIVE 11:57 AM INDUSTRIAL RELATIONS REPRESENTATIVE Charan Salazar MD LAB - BLOOD ORDERABLES Performing Organization Address City/State/ZIP Code Phon e Number [facility] [address] LABS Erythrocyte sedimentation rate auto (01/27/2014 10:55 AM INDUSTRIAL RELATIONS REPRESENTATIVE) P athologist Signature Sed Rate 7 0 - 30 mm/h [facility] Specimen Anatomical Collection Method Collection Time Receive d Time (Source) Location / / Volume Laterality Blood specimen 01/27/2014 10:55 4 (specimen) AM INDUSTRIAL RELATIONS REPRESENTATIVE 11:57 AM INDUSTRIAL RELATIONS REPRESENTATIVE Charan Salazar MD LAB - BLOOD ORDERABLES Performing Organization Address City/State/ZIP Code Phon e Number [facility] [address] LABS (ABNORMAL) CBC with platelets differential (01/27/2014 10:55 AM INDUSTRIAL RELATIONS REPRESENTATIVE) Patholo gist Method Time Signature WBC 10.3 4.0 - [facility] 11.0 [facility] 10e9/L [facility] RBC Count 4.89 3.8 - 5.2 [facility] 10e12/L [facility] Hemoglobin 14.7 11.7 - [facility] 15.7 g/dL [facility] Hematocrit 44.3 35.0 - [facility] 47.0 % [facility] MCV 91 78 - 100 [facility] fl [facility] MCH 30.1 26.5 - [facility] 33.0 pg [facility] MCHC 33.2 31.5 - [facility] 36.5 g/dL [facility] RDW 13.3 10.0 - [facility] 15.0 % [facility] Platelet Count 224 150 - 450 [facility] 10e9/L [facility] Diff Method Automated [facility] Method [facility] % Neutrophils 84.3 % [facility] % Lymphocytes 7.4 % [facility] % Monocytes 6.9 % [facility] % Eosinophils 0.7 % [facility] % Basophils 0.2 % [facility] % Immature 0.5 % [facility] Granulocytes [facility] Absolute 8.7 (H) 1.6 - 8.3 [facility] Neutrophil 10e9/L [facility] Absolute 0.8 0.8 - 5.3 [facility] Lymphocytes 10e9/L [facility] Absolute 0.7 0.0 - 1.3 [facility] Monocytes 10e9/L [facility] Absolute 0.1 0.0 - 0.7 [facility] Eosinophils 10e9/L [facility] Absolute 0.0 0.0 - 0.2 [facility] Basophils 10e9/L [facility] Abs Immature 0.1 0 - 0.4 [facility] Granulocytes 10e9/L [facility] Specimen Anatomical Collection Method Collection Time Receive d Time (Source) Location / / Volume Laterality Blood specimen 01/27/2014 10:55 4 (specimen) AM INDUSTRIAL RELATIONS REPRESENTATIVE 11:57 AM INDUSTRIAL RELATIONS REPRESENTATIVE Charan Salazar MD LAB - BLOOD ORDERABLES Performing Organization Address City/State/ZIP Code Phon e Number [address] LABS Basic metabolic panel (01/27/2014 10:55 AM INDUSTRIAL RELATIONS REPRESENTATIVE) P athologist Signature Sodium 138 133 - 144 [facility] mmol/L [facility] Potassium 4.4 3.4 - 5.3 [facility] mmol/L [facility] Chloride 108 94 - 109 [facility] mmol/L [facility] Carbon Dioxide 23 20 - 32 [facility] mmol/L [facility] Anion Gap 7 3 - 14 [facility] mmol/L [facility] Glucose 76 70 - 99 [facility] mg/dL [facility] Comment: Effective 10/07/2013, the reference range for this assay has changed to reflect new instrumentation/methodology. Urea Nitrogen 9 7 - 30 mg/dL [facility] Comment: Effective 10/07/2013, the reference range for this assay has changed to reflect new instrumentation/methodology. Creatinine 0.94 0.52 - 1.04 mg/dL [facility] GFR Estimate 61 >60 mL/min/1.7m2 [facility] Comment: Non GFR Calc GFR Estimate If Black 73 >60 mL/min/1.7m2 F [facility] Comment: GFR Calc Calcium 9.2 8.5 - 10.1 mg/dL [facility] Comment: Effective 10/07/2013, the reference range for this assay has changed to reflect new instrumentation/methodology. Specimen Anatomical Collection Method Collection Time Receive d Time (Source) Location / / Volume Laterality Blood specimen 01/27/2014 10:55 4 (specimen) AM INDUSTRIAL RELATIONS REPRESENTATIVE 11:57 AM INDUSTRIAL RELATIONS REPRESENTATIVE Charan Salazar MD LAB - BLOOD ORDERABLES Performing Organization Address City/[facility]/ZIP Code Phon e Number [address] LABS Zinc (01/27/2014 10:55 AM INDUSTRIAL RELATIONS REPRESENTATIVE) athologist Signature Zinc 86 [facility] Comment: Reference range: 60 to 120 Unit: ug/dL (Note) INTERPRETIVE INFORMATION: Zinc, Serum or Plasma Circulating zinc concentrations are depe ndent on albumin status and are depressed with malnutriti on. Zinc may also be lowered with infection, inflammation, stress, oral contraceptives, and . Zinc may be elevated with zinc supplementation or fasting. Elevate d zinc concentrations may interfere with copper absorption. Test developed and characteristics deter mined by [employer]. See Compliance Statement B : [employer]/CS Performed by [employer], [address] [place] [id number] [email or web address], Grant Akins MD, L ab. Director Specimen Anatomical Collection Method Collection Time Receive d Time (Source) Location / / Volume Laterality Blood specimen 01/27/2014 10:55 4 (specimen) AM INDUSTRIAL RELATIONS REPRESENTATIVE 11:57 AM INDUSTRIAL RELATIONS REPRESENTATIVE Charan Salazar MD LAB - BLOOD ORDERABLES Performing Organization Address City/[facility]/ZIP Code Phon e Number [phone] [place] [address] LABS Folate (01/27/2014 10:55 AM INDUSTRIAL RELATIONS REPRESENTATIVE) athologist Signature Folate >24.0 >5.4 ng/mL [facility] Interp: ??>5.4 ng/mL = Normal [facility]AMPUS [facility] Specimen Anatomical Collection Method Collection Time Receive d Time (Source) Location / / Volume Laterality Blood specimen 01/27/2014 10:55 4 (specimen) AM INDUSTRIAL RELATIONS REPRESENTATIVE 11:57 AM INDUSTRIAL RELATIONS REPRESENTATIVE Charan Salazar MD LAB - BLOOD ORDERABLES Performing Organization Address City/State/ZIP Code Phon e Number [facility] [address] LABS Vitamin B12 (01/27/2014 10:55 AM INDUSTRIAL RELATIONS REPRESENTATIVE) P athologist Signature Vitamin B12 469 >210 pg/mL [facility] Comment: Interp: [phone] = Normal Specimen Anatomical Collection Method Collection Time Receive d Time (Source) Location / / Volume Laterality Blood specimen 01/27/2014 10:55 4 (specimen) AM INDUSTRIAL RELATIONS REPRESENTATIVE 11:57 AM INDUSTRIAL RELATIONS REPRESENTATIVE Charan Salazar MD LAB - BLOOD ORDERABLES Performing Organization Address City/[facility]/ZIP Code Phon e Number [facility] [address] LABS Iron and iron binding capacity (01/27/2014 10:55 AM INDUSTRIAL RELATIONS REPRESENTATIVE) athologist Signature Iron 144 35 - 180 [facility] ug/dL [facility] Iron Binding 362 240 - 430 [facility] Cap ug/dL [facility] Iron Saturation 40 15 - 46 % [facility] LABS Specimen Anatomical Collection Method Collection Time Receive d Time (Source) Location / / Volume Laterality Blood specimen 01/27/2014 10:55 4 (specimen) AM INDUSTRIAL RELATIONS REPRESENTATIVE 11:57 AM INDUSTRIAL RELATIONS REPRESENTATIVE Charan Salazar MD LAB - BLOOD ORDERABLES Performing Organization Address City/State/ZIP Code Phon e Number [facility] [address] LABS Ferritin (01/27/2014 10:55 AM INDUSTRIAL RELATIONS REPRESENTATIVE) P athologist Signature Ferritin 27 10 - 300 [facility] ng/mL [facility]AMP[facility] Specimen Anatomical Collection Method Collection Time Receive d Time (Source) Location / / Volume Laterality Blood specimen 01/27/2014 10:55 4 (specimen) AM INDUSTRIAL RELATIONS REPRESENTATIVE 11:57 AM INDUSTRIAL RELATIONS REPRESENTATIVE Charan Salazar MD LAB - BLOOD ORDERABLES Performing Organization Address City/State/ZIP Code Phon e Number [facility] 500 [place] [address] [facility] CRP inflammation (01/27/2014 10:55 AM INDUSTRIAL RELATIONS REPRESENTATIVE) Analysis Performed At Patho logist Time Signature CRP Inflammation <2.9 0.0 - 8.0 [facility] mg/L [facility] Specimen Anatomical Collection Method Collection Time Receive d Time (Source) Location / / Volume Laterality Blood specimen 01/27/2014 10:55 4 (specimen) AM INDUSTRIAL RELATIONS REPRESENTATIVE 11:57 AM INDUSTRIAL RELATIONS REPRESENTATIVE Charan Salazar MD LAB - BLOOD ORDERABLES Performing Organization Address City/[facility] Code Phon e Number [facility] 500 [place] [address] [facility] (ABNORMAL) Routine UA with micro reflex to culture (01/27/2014 10:22 AM INDUSTRIAL RELATIONS REPRESENTATIVE) Patholo gist Method Time Signature Color Urine Yellow [facility] Appearance Urine Clear [facility] Glucose Urine Negative NEG mg/dL [facility] Bilirubin Urine Negative NEG [facility] Ketones Urine Negative NEG mg/dL [facility] Specific Wren 1.020 1.003 - [facility] Urine 1.035 [facility] Blood Urine Negative NEG [facility] pH Urine 5.5 5.0 - 7.0 [facility] pH [facility] Protein Albumin 10 (A) NEG mg/dL [facility] Urine [facility] Urobilinogen Normal 0.0 - 2.0 [facility] mg/dL mg/dL [facility] Nitrite Urine Negative NEG [facility] Leukocyte Trace (A) NEG [facility] Esterase Urine [facility] Source Midstream [facility] Urine [facility] WBC Urine 3 (H) 0 - 2 [facility] /HPF [facility] RBC Urine 4 (H) 0 - 2 [facility] /HPF [facility] Squamous 1 0 - 1 [facility] Epithelial /HPF /HPF [facility] Urine [facility]AMP[facility] Transitional Epi <1 0 - 1 [facility] /HPF [facility] Mucous Urine Present (A) NEG /LPF [facility] Specimen Anatomical Collection Method Collection Time Receive d Time (Source) Location / / Volume Laterality Urine specimen 01/27/2014 10:22 4 (specimen) AM INDUSTRIAL RELATIONS REPRESENTATIVE 10:23 AM INDUSTRIAL RELATIONS REPRESENTATIVE Charan Salazar MD LAB - URINE ORDERABLES Performing Organization Address City/State/ZIP Code Phon e Number [facility] 500 [place] [address] [facility] documented in this encounter Visit Diagnoses Diagnosis Inflammatory bowel disease (Crohn's dise ase) (H) Regional enteritis of unspecified site Pneumaturia Other specified disorders of urethra documented in this encounter Care Teams Accounting Generalist Relationship Specialty Start Date End Date Edison Tam MD PCP - General Family Practice 09/21/11 07/22/[address] [place] [id number] documented as of this encounter
--- OUTSIDE RECORDS SUMMARY | 2021-10-24 12:01 | XMS_ITS | Encounter Summary ---
:1955 Author Organization [place] Address [facility] [place] [address] Care Team Providers Name Role Phone Edison Olivas MD Primary Care Provider Sheri Casey MD Unavailable Kierra Billy MD Unavailable Reason for Visit (Routine) - Closed Specialty Diagnoses / Procedures Referred By Contact Refer red To Contact Cardiology Diagnoses echo Kierra Billy MD [facility] Cv Echo Procedures ECH COMPLETE [address] [place], [place] [address] [facility] 4th Floor, Clinic 4B [facility] [address] [place], [place] [address] [place] [address] Phone: Fax: Referral ID Status Reason Start Date Expiration Date Visits Requ ested Visits Authorized [id number] Closed 09/22/2014 09/22/2015 1 1 Encounter Details Date Type Department Care Team Description 12/01/2014 Hospital Encounter [facility], [facility] CVC Norberto Billy Fatigue Echocardiography MD [place] [address] [place], [place] 4th Floor, Clinic 4B [id number] [facility] [address] [place] [address] [place] [address] Social History Tobacco Use Types [...] by Osteopenia mouth daily Discontinue Vitamin D 14375 cyanocobalamin (VITAMIN B12) Inject 1 mL 1 mL 11 201412/28/2015 1000 MCG/ML (1,000 mcg) into injectionIndications: B12 the muscle every deficiency 30 days multivitamin (THERA-PLUS) Take 5 mLs by 0 05/09/2017 LIQD mouth daily. ORDER FOR DMEIndications: Injection 12 each 0 04/27/2013 01/28/2017 B12 deficiency Supplies for Vitamin B12: 3cc syringes w/ 27 gauge needles, 1 inch length Potassium Chloride CR 8 MEQ Take 16 mEq by 30 capsule 0 12/1001/28/2017 CPCRIndications: mouth daily NEED Hypopotassemia APPT WITH DR. OLIVAS FOR REFILLS. rOPINIRole (REQUIP) 1 MG Take 1 tablet (1 90 tablet 3 10/1107/07/2015 tabletIndications: Restless mg) by mouth At leg Bedtime May take 1/2 tab additional prn once daily. UNABLE TO FIND 3 times daily 0 016 MEDICATION NAME:Italian herbs venlafaxine (EFFEXOR-XR) 75 Take 75 mg by 0 08/15/2015 MG 24 hr capsule mouth daily Levothyroxine Sodium 50 MCG Take 1 tablet by 90 capsule 1 03/07/2015 CAPSIndications: Yossi's mouth daily thyroiditis Nutritional Supplements Take 2 capsules 0 05/12/2015 (ROCÍO COMPLEX PO) by mouth daily predniSONE (DELTASONE) 1 MG Take 2 tablets (2 180 tablet 3 0 05/10/2014 05/09/2015 tabletIndications: mg) by mouth Preoperative examination daily With the 5mg tab for total of 7mg daily. predniSONE (DELTASONE) 5 MG (total daily dose 90 tablet 3 0 09/14/2014 05/09/2015 tabletIndications: Crohn's 7 mg/day) disease of both small and large intestine with complication (H), Osteoporosis, Yossi's thyroiditis propranolol (INDERAL) 20 MG Take 1 tablet (20 90 tablet 1 0 09/09/2014 03/01/2015 tabletIndications: mg) by mouth Unspecified essential daily hypertension documented as of this encounter Plan of Treatment Not on filedocumented as of this encounter Procedures Procedure Name Priority Date/Time Associated Diagnosis Comme nts ECHO COMPLETE Routine 12/01/2014 9:43 AM Fatigue Results for this CDT procedure are i n the results section . documented in this encounter Results Echocardiogram (12/01/2014 9:43 AM CDT) Anatomical Region Laterality Modality Echocardiography Specimen (Source) Anatomical Collection Method Collection Time Re ceived Time Location / / Volume Laterality 12/01/2014 9:23 AM CDT Narrative 12/01/2014 10:20 AM CDT Interpretation Summary [facility] Echocardiography Laboratory [address] [place] [id number] Name: MARIA E COLEY : 1955 Study Date: 12/01/2014 09:23 AM Age: 59 yrs Gender: Female Patient Location: [facility] Reason For Study: , Other malaise and fa tigue Ordering Physician: KIERRA BILLY Referring Physician: KIERRA BILLY Performed By: Gerson Chun RDCS BSA: 1.6 m2 Height: 62 in Weight: 124 lb BP: 103/69 mmHg Procedure Echocardiogram with two-dimensional, col or and spectral Doppler performed. Interpretation Summary Normal biventricular systolic function. LVEF estimate 55-60%. No significant valvular abnormalities. Normal IVC with preserved respiratory variability. Left Ventricle Global and regional left ventricular fun ction is normal with an EF of 55-60%. Left ventricular wall thickness is jean paul l. Left ventricular size is normal. Right Ventricle The right ventricle is normal size. Righ t ventricular wall thickness is normal. Global right ventricular functio n is normal. Atria Both atria appear normal. Mitral Valve The mitral valve is normal. Trace mitral insufficiency is present. Aortic Valve Aortic valve is normal in structure and function. The aortic valve is tricuspid. Tricuspid Valve The tricuspid valve is normal. Trace tri cuspid insufficiency is present. PASP estimate 21 mmHg (RAP included). Pulmonic Valve The pulmonic valve is normal. Trace to m ild pulmonic insufficiency is present. Vessels The aorta root is normal. The inferior v rodolfo cava was normal in size with preserved respiratory variability. Pericardium No pericardial effusion is present. MMode/2D Measurements & Calculations IVSd: 0.54 cm LVIDd: 4.2 cm LVIDs: 2.7 cm LVPWd: 0.78 cm FS: 36.4 % EDV(Teich): 79.4 ml ESV(Teich): 26.6 ml LV mass(C)d: 79.9 grams LA dimension: 3.3 cm asc Aorta Diam: 2.9 cm LVOT diam: 1.9 cm LVOT area: 3.0 cm2 LA Volume (BP): 34.0 ml LA Volume Index (BP): 21.8 ml/m2 Doppler Measurements & Calculations MV E max angelo: 72.1 cm/sec MV A max angelo: 81.8 cm/sec MV E/A: 0.88 MV dec time: 0.14 sec TR max angelo: 191.5 cm/sec TR max P.8 mmHg Lateral E/e': 8.7 Medial E/e': 10.9 Report approved by: Leonard De La Garza 12/01/2014 10:20 AM Procedure Note Josiah Hutchins MD - 12/02/19 15 Interpretation Summary [facility] Echocardiography Laboratory [address] [place] [address] Name: MARIA E COLEY : 1955 Study Date: 12/01/2014 09:23 AM Age: 59 yrs Gender: Female Patient Location: [facility] Reason For Study: , Other malaise and fa tigue Ordering Physician: KIERRA BILLY Referring Physician: KIERRA BILLY Performed By: Gerson Chun RDCS BSA: 1.6 m2 Height: 62 in Weight: 124 lb BP: 103/69 mmHg Procedure Echocardiogram with two-dimensional, col or and spectral Doppler performed. Interpretation Summary Normal biventricular systolic function. LVEF estimate 55-60%. No significant valvular abnormalities. Normal IVC with preserved respiratory variability. Left Ventricle Global and regional left ventricular fun ction is normal with an EF of 55-60%. Left ventricular wall thickness is jean paul l. Left ventricular size is normal. Right Ventricle The right ventricle is normal size. Righ t ventricular wall thickness is normal. Global right ventricular functio n is normal. Atria Both atria appear normal. Mitral Valve The mitral valve is normal. Trace mitral insufficiency is present. Aortic Valve Aortic valve is normal in structure and function. The aortic valve is tricuspid. Tricuspid Valve The tricuspid valve is normal. Trace tri cuspid insufficiency is present. PASP estimate 21 mmHg (RAP included). Pulmonic Valve The pulmonic valve is normal. Trace to m ild pulmonic insufficiency is present. Vessels The aorta root is normal. The inferior v rodolfo cava was normal in size with preserved respiratory variability. Pericardium No pericardial effusion is present. MMode/2D Measurements & Calculations IVSd: 0.54 cm LVIDd: 4.2 cm LVIDs: 2.7 cm LVPWd: 0.78 cm FS: 36.4 % EDV(Teich): 79.4 ml ESV(Teich): 26.6 ml LV mass(C)d: 79.9 grams LA dimension: 3.3 cm asc Aorta Diam: 2.9 cm LVOT diam: 1.9 cm LVOT area: 3.0 cm2 LA Volume (BP): 34.0 ml LA Volume Index (BP): 21.8 ml/m2 Doppler Measurements & Calculations MV E max angelo: 72.1 cm/sec MV A max angelo: 81.8 cm/sec MV E/A: 0.88 MV dec time: 0.14 sec TR max angelo: 191.5 cm/sec TR max P.8 mmHg Lateral E/e': 8.7 Medial E/e': 10.9 Report approved by: Leonard De La Garza 12/01/2014 10:20 AM Kierra Billy MD CV ECHO ORDERABLES documented in this encounter Visit Diagnoses Diagnosis Fatigue Other malaise and fatigue documented in this encounter Care Teams Soda Drier Feeder Relationship Specialty Start Date End Date Edison Olivas MD PCP - General Family Practice 07/23/14 909 [facility] 4 [place] [address] Sheri Casey MD MD Pulmonary Disease 07/23/14 420 [facility] 276 [place] [address] Kierra Billy MD MD Cardiology 08/12/14 12/26/17 420 [place], [place] [id number] documented as of this encounter
--- OUTSIDE RECORDS SUMMARY | 2021-10-24 12:01 | XMS_ITS | Encounter Summary ---
:1955 Author Organization [place] Address [address] [place] [phone] Care Team Providers Name Role Phone Edison Tam MD Primary Care Provider Reason for Visit Reason Comments RECHECK 9 Months Follow-up Willam Decker Encounter Details Date Type Department Care Team Description 01/11/2014 Office Visit Medicine GI - 1E Charan Salazar MD Inflammatory bowel disease (Crohn's dise ase) (H) (Primary Dx); [address] [place] 1[place] Floor, Clinic [address] [place] [address] SE (Work) [place] [address] Social History Tobacco Use Types Packs/Day Years Used Date Former Smoker 1 18 Smokeless Tobacco: Former User Q uit: 09/20/1991 Alcohol Use Standard Drinks/Week Comments No 0 (1 standard drink = 0.6 oz pure alcoho l) Sex Assigned at Date Recorded Not on file documented as of this encounter Last Filed Vital Signs Vital Sign Reading Time Taken Comments Blood Pressure 111/66 01/11/2014 2:36 PM SENIOR TELECOMMUNICATIONS ENGINEER Pulse 88 01/11/2014 2:36 PM SENIOR TELECOMMUNICATIONS ENGINEER Temperature 36.8 ??C (98.3 ??F) 01/11/2014 2:36 PM SENIOR TELECOMMUNICATIONS ENGINEER Respiratory Rate - - Oxygen Saturation 95% 01/11/2014 2:36 PM SENIOR TELECOMMUNICATIONS ENGINEER Inhaled Oxygen Concentration - - Weight 58 kg (127 lb 12.8 oz) 01/11/2014 2:36 PM SENIOR TELECOMMUNICATIONS ENGINEER Height 154.9 cm (5' 1) 01/11/2014 2:36 PM SENIOR TELECOMMUNICATIONS ENGINEER Body Mass Index 24.15 01/11/2014 2:36 PM SENIOR TELECOMMUNICATIONS ENGINEER documented in this encounter Patient Instructions Patient InstructionsCharan Salazar MD - 01/11/2014 3:15 PM CST I've included a brief summary of our discussion and care plan from today's visit below. Please review this information with your primary care provider. 1. Recommend routine studies including nutritional and inflammatory markers as we discussed today. Will also recheck your urine studies to see if there's been any interval change in your known multi-fistulizing disease. - Depending on the results, we may need to consider moving forward with repeat MRI imaging as we discussed today. Will advise further once studies return and have been reviewed. 2. Continue the prednisone 7mg daily as ordered by Endocrine for now, no changes to your overall IBDtreatment regimen at this time. 3. Return to GI Clinic with my GI Nurse Practitioner (Megan Lloyd) in 6 months to review your progress, sooner if symptomatic. It was a pleasure seeing you in clinic today - please be in touch if there are any further questionsthat arise following today's visit. During business hours, you may reach my Manager Retail Store at . For urgent/emergent questions after business hours, you may reach the on-call GI Fellowby contacting the [facility] stripping machine operator at . Any benign/non-urgent test results are usually communicated via letter or Siving Egil Kvaleberghart message within 1-2weeks after completion. Urgent results (those that require a change in the previously-discussed careplan) are usually communicated via a phone call once available from our clinic staff to discuss the results and the next steps in your evaluation. I recommend signing up for [employer] access if you have not already done [...] about your healthcare. Sincerely, Charan Salazar MD Health And Human Performance Professor [facility] - Department of Medicine Division of Gastroenterology OR TELECOMMUNICATIONS ENGINEER documented in this encounter Progress Notes Charan Salazar MD - 02/01/2014 11:57 AM CST GI CLINIC VISIT CC/REFERRING MD: Edison Tam REASON FOR CONSULTATION: Crohn's disease HPI: 58 year old female w/ h/o complicated fistulizing [...] intact), SLE, Yossi's thyroiditis w/ subsequent hypothyroidism, depression/anxiety, among multiple other medical issues - presenting for f/u Crohn's disease. Doingwell overall, reports having 1 formed BM/day w/o blood currently. Denies any tenesmus or insecurity passing flatus, no fecal incontinence or new perianal/nocturnal sxs noted. +occ pneumaturia w/ very in termittent mild urinary discomfort (chronic, unchanged from baseline in setting of known chronic fistulae). Denies any N/V/F/C/DONNELLY/NS or other const/syst/cardiopulmonary sxs, [...] none. PHYSICAL EXAMINATION: Vitals reviewed, AFVSS Wt 127.8# today (incr) Gen: aaox3, cooperative, pleasant, not dyspneic/diaphoretic, nad HEENT: ncat, neck supple, no clad, normal op w/o ulcer/exudate, anicteric, mmm Resp/CV unremarkable Abd: +nabs, soft, nt, nd, no peritoneal s/s noted Ext: no c/c/e Skin: warm, perfused, no jaundice Neuro: grossly intact, no asterixis noted PERTINENT STUDIES: Lytes/LFT normal, alb 3.6, cr 0.94 wbc 10.3, hgb 14.7, plt 224, mcv 91 ferritin 27, iron profile normal B12 469, folate >24 Zn normal ESR/CRP negative UA w/ mild chronic WBC/RBC, +trace prot/LE noted, but o/w normal (chronic intermittent findings, notsurprising in setting of chronic EV fistulae and warrants ongoing monitoring) ASSESSMENT/PLAN: 1. Complex chronic fistulizing ileocolonic + perianal Crohn's disease, chronic steroid dependence but otherwise stable and clinically quiescent disease - excellent background nutritional reserve on current steroid support, recommend continuing supportive care for now Doing well on current low-level PDN support, followed by Endocrine w/ no immediate plans for dosage change in light of pt's overall stable sxs. Pt would like to continue to hold off any steroid-sparingtherapy in light of the long steroid taper that would still be required, and the lack of nutritionalimpact from any overt active disease at present. Biochemical studies are excellent, UA appears stable compared to prior studies (counseled re: danger s/s for pyelonephritis that would warrant urgent reassessment, none noted at this time). As pt's biochemical/nutritional and clinical parameters appear to remain w/i her baseline at present, no indication for imaging/endoscopic evaluation at this time. Will continue to monitor expectantly for now. 2. Colorectal Cancer Screening No PSC or known FH CRC, will readdress once acute issues have stabilized. RTC 6 months with GI COIL CONNECTOR REPAIRER Borne, sooner if symptomatic. Thank you for this consultation. It was a pleasure to participate in the care of this patient; please contact us with any further questions. A total of 25 minutes was spent with this patient, 50% of which was counseling regarding the above delineated issues. Charan Salazar MD Health And Human Performance Professor [facility] - Department of Medicine Division of Gastroenterology OR TELECOMMUNICATIONS ENGINEER documented in this encounter Nursing Notes Laxmi Infante CMA - 01/11/2014 2:39 PM CST . Chief Complaint Patient presents with ??? RECHECK 9 Months Follow-up Crohns Disease Filed Vitals: 01/11/14 1436 BP: 111/66 Pulse: 88 Temp: 98.3 ??F (36.8 ??C) TempSrc: Oral Height: 1.549 m (5' 1) Weight: 57.97 kg (127 lb 12.8 oz) SpO2: 95% Body mass index is 24.16 kg/(m^2). WOUND EVALUATION: OR TELECOMMUNICATIONS ENGINEER documented in this encounter Plan of Treatment Not on filedocumented as of this encounter Results Hepatic panel (01/27/2014 10:55 AM SENIOR TELECOMMUNICATIONS ENGINEER) athologist Signature Bilirubin 0.1 0.0 - 0.2 [facility] Direct mg/dL CAMPUS LABS Comment: Effective 10/07/2013 all values are a sum mation of both the conjugated and delta bilirubin fractions. Effective 10/07/2013, the reference rang e for this assay has changed to reflect new instrumentation/methodology. Bilirubin Total 0.2 0.2 - 1.3 mg/dL [facility] [place] Albumin 3.6 3.4 - 5.0 g/dL [facility] Protein Total 6.8 6.8 - 8.8 g/dL [facility] Alkaline Phosphatase 70 40 - 150 U/L [facility] ALT 35 0 - 50 U/L [facility] AST 27 0 - 45 U/L [facility] Specimen Anatomical Collection Method Collection Time Receive d Time (Source) Location / / Volume Laterality Blood specimen 01/27/2014 10:55 4 (specimen) AM SENIOR TELECOMMUNICATIONS ENGINEER 11:57 AM SENIOR TELECOMMUNICATIONS ENGINEER Charan Salazar MD LAB - BLOOD ORDERABLES Performing Organization Address City/[facility]/ZIP Code Phon e Number [address] LABS Erythrocyte sedimentation rate auto (01/27/2014 10:55 AM SENIOR TELECOMMUNICATIONS ENGINEER) P athologist Signature Sed Rate 7 0 - 30 mm/h [facility] Specimen Anatomical Collection Method Collection Time Receive d Time (Source) Location / / Volume Laterality Blood specimen 01/27/2014 10:55 4 (specimen) AM SENIOR TELECOMMUNICATIONS ENGINEER 11:57 AM SENIOR TELECOMMUNICATIONS ENGINEER Charan Salazar MD LAB - BLOOD ORDERABLES Performing Organization Address City/State/ZIP Code Phon e Number [address] LABS (ABNORMAL) CBC with platelets differential (01/27/2014 10:55 AM SENIOR TELECOMMUNICATIONS ENGINEER) Patholo gist Method Time Signature WBC 10.3 4.0 - [facility] 11.0 [place] 10e9/L [facility] RBC Count 4.89 3.8 - 5.2 [facility] 10e12/L [facility] Hemoglobin 14.7 11.7 - [facility] 15.7 g/dL [facility] Hematocrit 44.3 35.0 - [facility] 47.0 % [facility] MCV 91 78 - 100 [facility] fl [facility] MCH 30.1 26.5 - [facility] 33.0 pg [facility] MCHC 33.2 31.5 - [facility] 36.5 g/dL [facility] RDW 13.3 10.0 - [facility] 15.0 % [facility] Platelet Count 224 150 - 450 [facility] 10e9/L [facility]S Diff Method Automated [facility] Method [facility] % Neutrophils 84.3 % [facility] % Lymphocytes 7.4 % [facility] % Monocytes 6.9 % [facility] % Eosinophils 0.7 % [facility] % Basophils 0.2 % [facility] % Immature 0.5 % [facility] Granulocytes [facility] Absolute 8.7 (H) 1.6 - 8.3 [facility] Neutrophil 10e9/L [facility] Absolute 0.8 0.8 - 5.3 [facility] Lymphocytes 10e9/L [facility] Absolute 0.7 0.0 - 1.3 [facility] Monocytes 10e9/L [facility] Absolute 0.1 0.0 - 0.7 [facility] Eosinophils 10e9/L [facility] Absolute 0.0 0.0 - 0.2 [facility] Basophils 10e9/L [facility] Abs Immature 0.1 0 - 0.4 [facility] Granulocytes 10e9/L [facility] Specimen Anatomical Collection Method Collection Time Receive d Time (Source) Location / / Volume Laterality Blood specimen 01/27/2014 10:55 4 (specimen) AM SENIOR TELECOMMUNICATIONS ENGINEER 11:57 AM SENIOR TELECOMMUNICATIONS ENGINEER Charan Salazar MD LAB - BLOOD ORDERABLES Performing Organization Address City/State/ZIP Code Phon e Number [phone] [place] [address] LABS Basic metabolic panel (01/27/2014 10:55 AM SENIOR TELECOMMUNICATIONS ENGINEER) P athologist Signature Sodium 138 133 - 144 [facility] mmol/L [facility] Potassium 4.4 3.4 - 5.3 [facility] mmol/L [facility] Chloride 108 94 - 109 [facility] mmol/L [facility] Carbon Dioxide 23 20 - 32 [facility] mmol/L [facility] Anion Gap 7 3 - 14 [facility] mmol/L [facility] Glucose 76 70 - 99 [facility] mg/dL [facility] Comment: Effective 10/07/2013, the reference range for this assay has changed to reflect new instrumentation/methodology. Urea Nitrogen 9 7 - 30 mg/dL [facility] Comment: Effective 10/07/2013, the reference range for this assay has changed to reflect new instrumentation/methodology. Creatinine 0.94 0.52 - 1.04 mg/dL [facility] GFR Estimate 61 >60 mL/min/1.7m2 [facility] Comment: Non GFR Calc GFR Estimate If Black 73 >60 mL/min/1.7m2 F [facility] Comment: GFR Calc Calcium 9.2 8.5 - 10.1 mg/dL [facility] Comment: Effective 10/07/2013, the reference range for this assay has changed to reflect new instrumentation/methodology. Specimen Anatomical Collection Method Collection Time Receive d Time (Source) Location / / Volume Laterality Blood specimen 01/27/2014 10:55 4 (specimen) AM SENIOR TELECOMMUNICATIONS ENGINEER 11:57 AM SENIOR TELECOMMUNICATIONS ENGINEER Charan Salazar MD LAB - BLOOD ORDERABLES Performing Organization Address City/[facility]/ZIP Code Phon e Number [address] LABS Zinc (01/27/2014 10:55 AM SENIOR TELECOMMUNICATIONS ENGINEER) athologist Signature Zinc 86 [facility] Comment: Reference range: 60 to 120 [...] Test developed and characteristics deter mined by [employer]. See Compliance Statement B : [employer]/CS Performed by [employer], [address] [place] [id number] [email or web address], Grant Akins MD, L ab. Director Specimen Anatomical Collection Method Collection Time Receive d Time (Source) Location / / Volume Laterality Blood specimen 01/27/2014 10:55 4 (specimen) AM SENIOR TELECOMMUNICATIONS ENGINEER 11:57 AM SENIOR TELECOMMUNICATIONS ENGINEER Charan Salazar MD LAB - BLOOD ORDERABLES Performing Organization Address [facility] Phon e Number [phone] [place] [address] LABS Folate (01/27/2014 10:55 AM SENIOR TELECOMMUNICATIONS ENGINEER) athologist Signature Folate >24.0 >5.4 ng/mL [facility] Interp: ??>5.4 ng/mL = Normal CAMPUS LABS Specimen Anatomical Collection Method Collection Time Receive d Time (Source) Location / / Volume Laterality Blood specimen 01/27/2014 10:55 4 (specimen) AM SENIOR TELECOMMUNICATIONS ENGINEER 11:57 AM SENIOR TELECOMMUNICATIONS ENGINEER Charan Salazar MD LAB - BLOOD ORDERABLES Performing Organization Address City/State/ZIP Code Phon e Number [facility] [address] LABS Vitamin B12 (01/27/2014 10:55 AM SENIOR TELECOMMUNICATIONS ENGINEER) athologist Signature Vitamin B12 469 >210 pg/mL [facility] Comment: Interp: [phone] = Normal Specimen Anatomical Collection Method Collection Time Receive d Time (Source) Location / / Volume Laterality Blood specimen 01/27/2014 10:55 4 (specimen) AM SENIOR TELECOMMUNICATIONS ENGINEER 11:57 AM SENIOR TELECOMMUNICATIONS ENGINEER Charan Salazar MD LAB - BLOOD ORDERABLES Performing Organization Address City/State/ZIP Code Phon e Number [facility] [address] LABS Iron and iron binding capacity (01/27/2014 10:55 AM SENIOR TELECOMMUNICATIONS ENGINEER) athologist Signature Iron 144 35 - 180 [facility] ug/dL CAMPUS LABS Iron Binding 362 240 - 430 [facility] Cap ug/dL [facility]AMPUS LABS Iron Saturation 40 15 - 46 % [facility] LABS Specimen Anatomical Collection Method Collection Time Receive d Time (Source) Location / / Volume Laterality Blood specimen 01/27/2014 10:55 4 (specimen) AM SENIOR TELECOMMUNICATIONS ENGINEER 11:57 AM SENIOR TELECOMMUNICATIONS ENGINEER Charan Salazar MD LAB - BLOOD ORDERABLES Performing Organization Address City/[facility]/ZIP Code Phon e Number [facility] [address] LABS Ferritin (01/27/2014 10:55 AM SENIOR TELECOMMUNICATIONS ENGINEER) athologist Signature Ferritin 27 10 - 300 [facility] ng/mL CAMPUS LABS Specimen Anatomical Collection Method Collection Time Receive d Time (Source) Location / / Volume Laterality Blood specimen 01/27/2014 10:55 4 (specimen) AM SENIOR TELECOMMUNICATIONS ENGINEER 11:57 AM SENIOR TELECOMMUNICATIONS ENGINEER Charan Salazar MD LAB - BLOOD ORDERABLES Performing Organization Address City/[facility]/ZIP Code Phon e Number [facility] [address] [facility] [place] [facility] CRP inflammation (01/27/2014 10:55 AM SENIOR TELECOMMUNICATIONS ENGINEER) Analysis Performed At Patho logist Time Signature CRP Inflammation <2.9 0.0 - 8.0 [facility] mg/L [facility] Specimen Anatomical Collection Method Collection Time Receive d Time (Source) Location / / Volume Laterality Blood specimen 01/27/2014 10:55 4 (specimen) AM SENIOR TELECOMMUNICATIONS ENGINEER 11:57 AM SENIOR TELECOMMUNICATIONS ENGINEER Charan Salazar MD LAB - BLOOD ORDERABLES Performing Organization Address City/[facility] Code Phon e Number [facility] [address] [place], [place] [phone] [place] [address] LABS (ABNORMAL) Routine UA with micro reflex to culture (01/27/2014 10:22 AM SENIOR TELECOMMUNICATIONS ENGINEER) Patholo gist Method Time Signature Color Urine Yellow [facility] Appearance Urine Clear [facility] Glucose Urine Negative NEG mg/dL [facility] Bilirubin Urine Negative NEG [facility] Ketones Urine Negative NEG mg/dL [facility] Specific [place] 1.020 1.003 - [facility] Urine 1.035 [facility] Blood Urine Negative NEG [facility] pH Urine 5.5 5.0 - 7.0 [facility] pH [facility] Protein Albumin 10 (A) NEG mg/dL [facility] Urine [facility] Urobilinogen Normal 0.0 - 2.0 [facility] mg/dL mg/dL [facility] Nitrite Urine Negative NEG [facility] Leukocyte Trace (A) NEG [...] Urine specimen 01/27/2014 10:22 4 (specimen) AM SENIOR TELECOMMUNICATIONS ENGINEER 10:23 AM SENIOR TELECOMMUNICATIONS ENGINEER Charan Salazar MD LAB - URINE ORDERABLES Performing Organization Address City/State/ZIP Code Phon e Number [facility] [address] [place] [address] [facility] documented in this encounter Visit Diagnoses Diagnosis Inflammatory bowel disease (Crohn's dise ase) (H) - Primary Regional enteritis of unspecified site Pneumaturia Other specified disorders of urethra documented in this encounter Care Teams Instructor Of Spanish Relationship Specialty Start Date End Date Edison Tam MD PCP - General Family Practice 09/21/11 07/22/[address] [address] documented as of this encounter
--- OUTSIDE RECORDS SUMMARY | 2021-10-24 12:01 | XMS_ITS | Encounter Summary ---
:1955 Author Organization [place] Address [address] [place] [address] Care Team Providers Name Role Phone Edison Tam MD Primary Care Provider Reason for Visit Reason Onset Date Comments Refill Request 12/28/2013 Encounter Details Date Type Department Care Team Description 12/28/2013 Refill Diabetes and Endocri ne Harriett Lew RN Refill Request 6th Floor, Clinic [address] [place] [phone] Social History Tobacco Use Types Packs/Day [...] on filedocumented in this encounter Care Teams Reporting Coordinator Relationship Specialty Start Date End Date Edison Tam MD PCP - General Family Practice 09/21/11 07/22/[address] [place] [address] [id number] documented as of this encounter
--- OUTSIDE RECORDS SUMMARY | 2021-10-24 12:01 | XMS_ITS | Encounter Summary ---
:1955 Author Organization [place] Address [address] [place] [address] Care Team Providers Name Role Phone Edison Tam MD Primary Care Provider Sheri Casey MD Unavailable Alphonso Billy MD Unavailable Reason for Visit Reason Onset Date Comments Refill Request 09/14/2014 Encounter Details Date Type Department Care Team Description 09/14/2014 Refill Medicine GI - 1E Charan Salazar MD Refill Request [address] [address] [address] Floor, Clinic [address] [place] [address] [place], [place] [phone] Social History Tobacco Use Types Packs/Day [...] Chronic lymphocytic thyroiditis documented in this encounter Care Teams Media Senior Recruiter Relationship Specialty Start Date End Date Edison Tam MD PCP - General Family Practice 07/23/14 909 [facility] [address] [place] [address] Sheri Casey MD MD Pulmonary Disease 07/23/14 420 [facility] [address] [place] [address] Alphonso Billy MD MD Cardiology 08/12/14 12/26/17 420 [place], [place] [phone] documented as of this encounter
--- OUTSIDE RECORDS SUMMARY | 2021-10-24 12:01 | XMS_ITS | Encounter Summary ---
:1955 Author Organization [facility] Address [address] [place] [address] Care Team Providers Name Role Phone Edison Olivas MD Primary Care Provider Sheri Casey MD Unavailable Kierra Billy MD Unavailable Reason for Visit Reason Comments Consult For New Patient- h/o carbon mono xide poisoning, fatigue, dizziness Encounter Details Date Type Department Care Team Description 08/27/2014 Office Visit Kierra Shea Fatigue (Prim carlos alberto Dx) [facility] [address] [place], [place] [address] [address] [address]th Floor, Clinic 4B [phone] [facility] [address] (Work) [address] [facility] [place] [address] Social History Tobacco Use Types Packs/Day Years Used Date Former Smoker 1 18 Smokeless Tobacco: Former User Q uit: 09/20/1991 Alcohol Use Standard Drinks/Week Comments No 0 (1 standard drink = 0.6 oz pure alcoho l) Sex Assigned at Date Recorded Not on file documented as of this encounter Last Filed Vital Signs Vital Sign Reading Time Taken Comments Blood Pressure 103/69 08/27/2014 11:00 AM CDT Pulse 74 08/27/2014 11:00 AM CDT Temperature - - Respiratory Rate - - Oxygen Saturation 97% 08/27/2014 11:00 AM CDT Inhaled Oxygen Concentration - - Weight 56.3 kg (124 lb 3.2 oz) 08/27/2014 11:00 AM CDT Height 157.5 cm (5' 2) 08/27/2014 11:00 AM CDT Body Mass Index 22.72 08/27/2014 11:00 AM CDT documented in this encounter Patient Instructions Patient InstructionsAmirah Whitney LPN - 08/27/2014 11:25 AM CDT Please schedule a Echocardiogram today for the near future. Follow up with Dr. Billy as needed. Thank you for your visit today. Please call me with any questions or concerns. Moy Khan RN Cardiology Livestock Breeder [phone] documented in this encounter Progress Notes Kierra Billy MD - 08/27/2014 11:03 AM CDT HPI: The patient is a 58-year-old woman who comes to Cardiac Clinic because of carbon monoxide poisoning. The patient says that over the past several months, she has noted some decrease in cognitive function as well as blurry vision, nausea and diarrhea. On reflection, she believes that the symptoms began in 12/2011. On 07/08/2014 while resting in bed, the patient lost consciousness for 1-2 hours. She says that she was fortunately near an open window and then awoke. She mentioned these symptoms to анна, and they decided that this might represent carbon monoxide poisoning. She subsequently wasfound to have an elevated carbon monoxide blood level, and then the boiler in her apartment was found to be defective and apparently leaking carbon monoxide. The patient denies any prior history of heart disease and has generally been quite active. However, she says that since this carbon monoxide exposure, she has been very cautious about doing exercise; prior to this time, she was very active doingtai chi, lifting weights and doing a stair stepper for at least 30 minutes almost every day. More recently, however, she has been cautious and done less exercise, although she does continue a mild daily exercise program. The patient says that she currently uses oxygen when she is in her car because she worries of carbon monoxide poisoning from her car. When she was having the above symptoms, she alsonoted some mild chest pressure and a feeling that she could not take a full breath. She still sometimes has a feeling that she cannot take a full breath, but exercise ability seems to be quite good although intentially reduced. The patient is not diabetic or hypertensive. She was a cigarette smoker, but quit smoking in 1991. There is no family history of premature coronary disease. She does have Crohn's disease and has used prednisone for many years. PAST MEDICAL HISTORY: Past Medical History Diagnosis Date ??? Crohn's [...] hand skin cancer (left) ??? Yossi's disease CURRENT MEDICATIONS: Current Outpatient Prescriptions Medication Sig Dispense Refill ??? ORDER FOR DME, SET TO LOCAL PRINT, Equipment being ordered: portable Oxygen with nasal cannula at 1-2 liters 1 Can 3 ??? UNABLE TO FIND 3 times daily MEDICATION NAME:Tristanian herbs ??? cyanocobalamin (VITAMIN B12) 1000 MCG/ML injection Inject 1 mL (1,000 mcg) into the muscle every30 days 1 mL 11 ??? predniSONE (DELTASONE) 1 MG tablet Take 2 tablets (2 mg) by mouth daily With the 5mg tab for total of 7mg daily. 180 tablet 3 ??? predniSONE (DELTASONE) 5 MG tablet (total daily dose 7 mg/day) 90 tablet 3 ??? Levothyroxine Sodium 50 MCG CAPS Take 1 tablet by mouth daily 90 capsule 1 ??? propranolol (INDERAL) 20 MG tablet Take 1 tablet (20 mg) by mouth daily 90 tablet 1 ??? rOPINIRole (REQUIP) 1 MG tablet Take 1 tablet (1 mg) by mouth At Bedtime May take 1/2 tab additional prn once daily. 90 tablet 3 ??? Nutritional Supplements (ROCÍO COMPLEX PO) Take 2 capsules by mouth daily ??? L-Lysine 500 MG TABS Take 1 tablet by mouth daily ??? ORDER FOR DME Injection Supplies for Vitamin B12: 3cc syringes w/ 27 gauge needles, 1 inch length 12 each 0 ??? venlafaxine (EFFEXOR-XR) 75 MG 24 hr capsule Take 75 mg by mouth daily ??? cholecalciferol (VITAMIN D) 1000 UNIT tablet Take 1 tablet (1,000 Units) by mouth daily Discontinue Vitamin D 57230 100 tablet 3 ??? acetaminophen (TYLENOL) 500 MG tablet Take 500-1,000 mg by mouth every 8 hours as needed ??? Potassium Chloride CR 8 MEQ CPCR Take 16 mEq by mouth daily NEED APPT WITH DR. OLIVAS FOR REFILLS. 30 capsule 0 ??? buPROPion (WELLBUTRIN SR) 150 MG 12 hr tablet Take 150 mg by mouth 2 times daily ??? ALPRAZolam (XANAX) 0.5 MG tablet Take 0.5 mg by mouth At Bedtime ??? calcium carbonate (TUMS) 500 MG chewable tablet Take 1 chew tab by mouth as needed. ??? multivitamin (THERA-PLUS) LIQD Take 5 mLs [...] 1 tablet by mouth 2 times daily. PAST SURGICAL HISTORY: Past Surgical History Procedure Laterality Date ??? [...] Surgeon: Marisol Hathaway MD; Location: [facility] ALLERGIES Allergies Allergen Reactions ??? Humira Rash ??? [...] Profound lethargy ??? Tramadol Itching and Rash FAMILY HISTORY: Family History Problem Relation Age of Onset [...] ??? Colon Polyps No family hx of SOCIAL HISTORY: History Social History ??? Marital Status: Single Spouse Name: N/A Number of Children: N/A ??? Years of Education: N/A Social History Main Topics ??? Smoking status: Former Smoker -- 1.00 packs/day for 18 years ??? Smokeless tobacco: Former User Quit date: 09/20/1991 ??? Alcohol Use: No ??? Drug Use: No Comment: no longer ??? Sexual Activity: Partners: Male Comment: twice Other Topics Concern ??? Not on file Social History Narrative Moved to [place] from [facility]. She is living in an apartment [facility]. ROS: Constitutional: No fever, chills, or sweats. No weight gain/loss ENT: No visual disturbance, ear ache, epistaxis, sore throat Allergies/Immunologic: Negative. Respiratory: No cough, hemoptysia Cardiovascular: As per HPI GI: No nausea, vomiting, hematemesis, melena, or hematochezia : No urinary frequency, dysuria, or hematuria Integument: Negative Psychiatric: Negative Neuro: Negative Endocrinology: Negative Musculoskeletal: Negative EXAM: BP 103/69 mmHg Pulse 74 Ht 1.575 m (5' 2) Wt 56.337 kg (124 lb 3.2 oz) BMI 22.71 kg/m2 SpO2 97% In general, the patient is a pleasant female in no apparent distress. HEENT: NC/AT. PERRLA. EOMI. Sclerae white, not injected. Nares clear. Pharynx without erythema or exudate. Dentition intact. Neck: No adenopathy. No thyromegaly. Carotids +4/4 bilaterally without bruits. No jugular venous distension. Heart: RRR. Normal S1, S2 splits physiologically. No murmur, rub, click, or gallop. The PMI is in the 5th ICS in the midclavicular line. There is no heave. Lungs: CTA. No ronchi, wheezes, rales. No dullness to percussion. Abdomen: Soft, nontender, nondistended. No organomegaly. No bruits. Extremities: No clubbing, cyanosis, or edema. The pulses are +4/4 at the radial, brachial, femoral, popliteal, DP, and PT sites bilaterally. No bruits are noted. Neurologic: Alert and oriented to person/place/time, normal speech, gait and affect Skin: No petechiae, purpura or rash. Labs: LIPID RESULTS: Lab Results Component Value Date CHOL 223* 08/09/2014 HDL 85 08/09/2014 LDL 93 08/09/2014 TRIG 224* 08/09/2014 CHOLHDLRATIO 2.6 08/09/2014 LIVER ENZYME RESULTS: Lab Results Component Value Date AST 28 08/09/2014 ALT 45 08/09/2014 CBC RESULTS: Lab Results Component Value Date WBC 7.2 08/09/2014 RBC 4.99 08/09/2014 HGB 14.9 08/09/2014 HCT 45.9 08/09/2014 MCV 92 08/09/2014 MCH 29.9 08/09/2014 MCHC 32.5 08/09/2014 RDW 12.7 08/09/2014 PLT 205 08/09/2014 BMP RESULTS: Lab Results Component Value Date NA 138 08/09/2014 POTASSIUM 4.1 08/09/2014 CHLORIDE 104 08/09/2014 CO2 27 08/09/2014 ANIONGAP 6 08/09/2014 GLC 92 08/09/2014 BUN 10 08/09/2014 CR 0.85 08/09/2014 GFRESTIMATED 68 08/09/2014 GFRESTBLACK 82 08/09/2014 DAVID 8.5 08/09/2014 A1C RESULTS: Lab Results Component Value Date A1C 5.5 04/02/2013 INR RESULTS: Lab Results Component Value Date INR 0.96 01/28/2013 INR 0.99 12/03/2011 Procedures: Assessment and Plan: 1. History of carbon monoxide exposure. Patient is concerned about chronic carbon monoxide poisoning. Exam is normal. ECG is normal. Lab today shows CO of 0.4% which is in the normal range. However, since prior CO posioning could cause myocardial injury, we will get an echo to look for myocardial injury as the result of TOXIC MYOCARDITIS caused by carbon monoxide poisoning. 2. We will f/u by phone/My chart with the results of the echo. If normal, no f/u visit needed unlesspatient would like to discuss with me. CC EDISON OLIVAS documented in this encounter Nursing Notes Amirah Whitney LPN - 08/27/2014 11:36 AM CDT Cardiac Testing: Patient given instructions regarding echocardiogram . Discussed purpose, preparation, procedure and when to expect results reported back to the patient. Patient demonstrated understanding of this information and agreed to call with further questions or concerns. Med Reconcile: Reviewed and verified all current medications with the patient. The updated medication list was printed and given to the patient. Return Appointment: F/U PRN Patient given instructions regarding scheduling next clinic visit. Patient demonstrated understanding of this information and agreed to call with further questions or concerns. Patient stated she understood all health information given and agreed to call with further questionsor concerns. documented in this encounter Plan of Treatment Not on filedocumented as of this encounter Results Echocardiogram (12/01/2014 9:43 AM CDT) Anatomical Region Laterality Modality Echocardiography Specimen (Source) Anatomical Collection Method Collection Time Re ceived Time Location / / Volume Laterality 12/01/2014 9:23 AM CDT Narrative 12/01/2014 10:20 AM CDT Interpretation Summary [facility] Echocardiography Laboratory [address] [place] [address] Name: MARIA E COLEY : 1955 Study Date: 12/01/2014 09:23 AM Age: 59 yrs Gender: Female Patient Location: [facility] Reason For Study: , Other malaise and [...] Hutchins MD - 12/02/19 15 Interpretation Summary [facility] Echocardiography Laboratory [address] [place] [address] Name: MARIA E COLEY : 1955 Study Date: 12/01/2014 09:23 AM Age: 59 yrs Gender: Female Patient Location: [facility] Reason For Study: , Other malaise and [...] in this encounter Visit Diagnoses Diagnosis Fatigue - Primary Other malaise and fatigue Fatigue Other malaise and fatigue documented in this encounter Care Teams Golf Course Laborer Relationship Specialty Start Date End Date Edison Olivas MD PCP - General Family Practice 07/23/[address] [place] [address] [address] [place] [address] Sheri Casey MD MD Pulmonary Disease 07/23/14 [address] [facility] [address] [place] [address] Kierra Billy MD MD Cardiology 08/12/14 12/26/17 [address] [place] [address] documented as of this encounter
--- OUTSIDE RECORDS SUMMARY | 2021-10-24 12:01 | XMS_ITS | Encounter Summary ---
:1955 Author Organization [facility] Address [facility] [place] [address] Care Team Providers Name Role Phone Edison Tam MD Primary Care Provider Sheri Casey MD Unavailable Alphonso Billy MD Unavailable Encounter Details Date Type Department Care Team Description 08/27/2014 Orders Only [facility] Alphonso Billy mo noxide [facility] MD [facility] [address] [place] [address] [id number] [phone] (Wo rk) Social History Tobacco Use Types [...] Name Priority Date/Time Associated Diagnosis Comme nts CARBON MONOXIDE Routine 08/27/2014 10:49 AM Carbon monoxide Re sults for this CDT exposure procedure are i n the results section. documented in this encounter Results Carbon monoxide (08/27/2014 10:49 AM CDT) P athologist Signature Carbon 0.4 0 - 2 % [facility] Specimen Anatomical Collection Method Collection Time Receive d Time (Source) Location / / Volume Laterality Blood specimen 08/27/2014 10:49 5 (specimen) AM CDT 10:51 AM CDT Edison Tam MD LAB - BLOOD ORDERABLES Performing Organization Address City/State/ZIP Code Phon e Number [facility] [address] [place] [address] [facility] documented in this encounter Visit Diagnoses Diagnosis Carbon monoxide exposure Contact with and (suspected) exposure to other potentially hazardous substances documented in this encounter Care Teams Wire Spinner Relationship Specialty Start Date End Date Edison Tam MD PCP - General Family Practice 07/23/14 [address] [facility] [address] [place] [address] Sheri Casey MD MD Pulmonary Disease 07/23/14 [address] [facility] [address] [place] [address] Alphonso Billy MD MD Cardiology 08/12/14 12/26/17 [address] [place] [address] documented as of this encounter
--- OUTSIDE RECORDS SUMMARY | 2021-10-24 12:01 | XMS_ITS | Encounter Summary ---
:1955 Author Organization [place] Address [facility] [place] [address] Care Team Providers Name Role Phone Edison Tam MD Primary Care Provider Reason for Visit Reason Comments Numbness R leg numbness. Encounter Details Date Type Department Care Team Description 01/14/2014 Office Visit [facility] Vijaya, Back pain (Primary Dx); [facility] Sid Bunch, Lumbar stenosis with neurogenic claudication; Center Lumbar radicular pain 1st Floor, [address] [facility]2 [place] [id number] [address] [place] [address] [phone] Social History Tobacco Use Types Packs/Day Years Used Date Former Smoker 1 18 Smokeless Tobacco: Former User Q uit: 09/20/1991 Alcohol Use Standard Drinks/Week Comments No 0 (1 standard drink = 0.6 oz pure alcoho l) Sex Assigned at Date Recorded Not on file documented as of this encounter Last Filed Vital Signs Vital Sign Reading Time Taken Comments Blood Pressure - - Pulse - - Temperature - - Respiratory Rate - - Oxygen Saturation - - Inhaled Oxygen Concentration - - Weight 58.1 kg (128 lb) 01/14/2014 4:56 PM RN CLINICAL TRIALS Height 156.2 cm (5' 1.5) 01/14/2014 4:56 PM RN CLINICAL TRIALS Body Mass Index 23.79 01/14/2014 4:56 PM RN CLINICAL TRIALS documented in this encounter Progress Notes Sid Robison MD - 01/15/2014 1:42 PM CST HISTORY OF PRESENT ILLNESS: 58-year-old female who I saw 8 months ago for low back and left leg pain. 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 At that time, she elected to undergo another course of formal physical therapy. I explained to her that in the future should she come to the point of considering surgery, then we may need to resort to differential injections to verify which among the above is her most significant pain generator. The patient comes in today with a new complaint. She said that 3 weeks ago while moving a rug with her right foot, she suddenly felt pain going down her right leg. She felt like a thousand bees attacked her right foot all of a sudden. Since then she has been having right leg pain going down to her foot in what is suggestive of an L5 pattern. Over the past 3 weeks, this has been getting worse instead of better. This is now to the point that her right leg symptoms have over taken her left leg pain. Prior to the onset of right-sided symptoms, she said the left leg symptoms have been stable. She felt that physical therapy had been working. She does not see the therapist anymore but has continued todo the exercises on her own. There is not further new onset right leg pain. She is actually quite satisfied. KEYLA is 19/45 or 42.22%. EQ-5D overall health is 50. PROMIS physical health score of 14, mental health score 16. Back pain 5/10, left leg pain 0. Right leg pain 7/10. PHYSICAL EXAMINATION: The patient is a pleasant, healthy-appearing, alert, oriented x3 and cooperative. She ambulates independently. She is neurologically intact. She describes her symptoms going down in an L5 pattern. She reports decreased sensation over the right L5 dermatome. No motor deficits. IMAGING: Lumbar flexion, extension x-rays taken today do not show any instability, no onset of spondylolisthesis at the L5-S1 level. We could appreciate the previously noted Bilateral L5 pars defects. She still also has changes of multilevel lumbar spondylosis noted previously. IMPRESSION: 1. New onset right leg radicular pain suggestive of L5 nerve root involvement. 2. Chronic low back and left leg radicular pain. 3. Left greater than right asymmetric disk collapse with left greater than right stenosis, L3-4. 4. 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 5. Presumptive left sacroiliac joint pain. 6. Multilevel lumbar spondylosis. PLAN: I had a good discussion with the patient regarding my findings, diagnosis and recommendations.Since her symptoms are new since her last MRI, it is very likely that there has been some significant change including the potential disk herniation or slippage or new onset instability in her spine. Her left x-rays were taken in 05/2013. Given that her symptoms are getting worse instead of better, weagreed to obtain a new lumbar MRI. I will review the results and give her a call or send her a letter regarding the results. The patient expressed good understanding and agreement. Total visit time exceeded 25 minutes, more than half spent in counseling and coordination of care. CLINICAL TRIALS documented in this encounter Nursing Notes Roz Tineo RN - 01/14/2014 6:03 PM CST Teaching Flowsheet Relevant Diagnosis: LUMBAR STENOSIS AND LEG PAIN Teaching Topic: LUMBAR MRI AT [facility] Person(s) involved in teaching: Patient Motivation Level: Asks Questions: Yes Eager to Learn: Yes Cooperative: Yes Receptive (willing/able to accept information): Yes Any cultural factors/worship beliefs that may influence understanding or compliance? No Patient demonstrates understanding of the following: Reason for the appointment, diagnosis and treatment plan: Yes Knowledge of proper use of medications and conditions for which they are ordered (with special attention to potential side effects or drug interactions): Yes Which situations necessitate calling provider and whom to contact: Yes Teaching Concerns Addressed: Comments: DR. ROBISON WILL CALL PT WITH RESULTS Proper use and care of NA (medical equip, care aids, etc.): NA Nutritional needs and diet plan: NA Pain management techniques: NA Wound Care: NA How and/when to access community resources: Yes Instructional Materials Used/Given: VERBAL INSTRUCTIONS Time spent with patient: 5 MIN. CLINICAL TRIALS Digna Crystal, STORAGE ENGINEER - 01/14/2014 4:58 PM CST Reason For Visit: Chief Complaint Patient presents with ??? Numbness R leg numbness. Ht 1.562 m (5' 1.5) Wt 58.06 kg (128 lb) BMI 23.80 kg/m2 VAS Pain Scores: Back Pain Scale 0-10: 5 Leg Pain Scale 0-10: 7 (L le/10 R le/10) PROMIS-10 In general, would you say your health is:: Good In general, would you say your quality of life is:: Very good In general, how would you rate your physical health?: Good In general, how would you rate your mental health, including your mood and your ability to think?: Excellent In general, how would you rate your satisfaction with your social activities and relationships?: Excellent In general, please rate how well you carry out your usual social activities and roles. (This includes activities at home, at work and in your community, and responsibilities as a parent, child, spouse,employee, friend, etc.): Good To what extent are you able to carry out your everyday physical activities such as walking, climbingstairs, carrying groceries, or moving a chair?: Moderately In the past 7 days, how often have you been bothered by emotional problems such as feeling anxious, depressed, or irritable?: Often In the past 7 days, how would you rate your fatigue on average?: Mild In the past 7 days, how would you rate your pain on average, where 0 means no pain, and 10 means worst imaginable pain?: 3 Global Mental Health Score: 16 Global Physical Health Score: 14 PROMIS TOTAL - SUBSCORES: 30 Pain Assessment Patient Currently in Pain: (pain in R leg upon walking) Oswestry Disability Index (KEYLA ?? Binh Vicente 1980, All rights reserved) Section 1 - Pain Intensity: The pain is moderate at the moment. Section 2 - Personal Care (washing, dressing, etc.) : It is painful to look after myself and I am slow and careful. Section 3 - Lifting: Pain prevents me from lifting heavy weights but I can manage light to medium weights if they are conveniently positioned. Section 4 - Walking: Pain prevents me walking more than one mile. Section 5 - Sitting: Pain prevents me from sitting for more than half an hour. Section 6 - Standing: Pain prevents me from standing for more than half an hour. Section 7 - Sleeping: My sleep is occasionally interrupted by pain. Section 8 - Sex life : Not answered/NA Section 9 - Social Life: My social life is normal but increases the degree of pain. Section 10 - Traveling: Pain restricts me to trips of less than one hour. Sum: 19 Count: 9 Oswestry Score (%): 42.22 % MOBILITY: (4) I have severe problems walking SELF CARE: (3) I have moderate problems washing or dressing myself USUAL ACTIVITIES (e.g. work, study, housework, family or leisure activities): (3) I have moderate problems doing my usual activities PAIN / DISCOMFORT: (3) I have moderate pain or discomfort ANXIETY / DEPRESSION: (3) I am moderately anxious or depressed We would like to know how good or bad your health is TODAY (0-100; 100 means the best health you canimagine; 0 means the worst health you can imagine): 50 CLINICAL TRIALS documented in this encounter Plan of Treatment Not on filedocumented as of this encounter Results XR Lumbar Spine 2-3 Views* (01/14/2014 5:35 PM RN CLINICAL TRIALS) Anatomical Region Laterality Modality T-spine, L-spine, Abdomen/Pelvis Compute d Radiography Specimen (Source) Anatomical Location Collection Method / Collectio n Time Received Time / Laterality Volume Impressions 01/15/2014 12:18 AM RN CLINICAL TRIALS IMPRESSION: 1. No acute bone abnormality of the lumb ar spine. No unstable listhesis is seen. KRYSTINA CANCINO MD Narrative 01/15/2014 12:18 AM RN CLINICAL TRIALS EXAMINATION: Lumbar spine flexion/extension DATE: 01/14/2014 HISTORY: Backache FINDINGS: Lateral flexion/extension view s of the lumbar spine are compared to radiographs from 05/28/2013 a nd an MRI from 05/20/2013. There is marked disc space loss at L4-5, without substantial endplate remodeling. Uncertain if this is a parti al fusion anomaly. Slight retrolisthesis of L3 on L4 is unchanged on flexion compared to extension, as well as compared to the pr ior study. No acute compression fracture. There is generaliz ed hypomobility of the lumbar spine on flexion compared to extension. No acute listhesis occurs. Procedure Note Krystina Cancino MD - 01/15/2014Forma tting of this note might be different from the original. EXAMINATION: Lumbar spine flexion/extens ion DATE: 01/14/2014 HISTORY: Backache FINDINGS: Lateral flexion/extension view s of the lumbar spine are compared to radiographs from 05/28/2013 a nd an MRI from 05/20/2013. There is marked disc space loss at L4-5, without substantial endplate remodeling. Uncertain if this is a parti al fusion anomaly. Slight retrolisthesis of L3 on L4 is unchanged on flexion compared to extension, as well as compared to the pr ior study. No acute compression fracture. There is generaliz ed hypomobility of the lumbar spine on flexion compared to extension. No acute listhesis occurs. IMPRESSION IMPRESSION: 1. No acute bone abnormality of the lumb ar spine. No unstable listhesis is seen. KRYSTINA CANCINO MD Sid Robison MD [facility] DI[facility]NOST[facility] JERONIMO HAY documented in this encounter Visit Diagnoses Diagnosis Back pain - Primary Backache, unspecified Lumbar stenosis with neurogenic claudica tion Spinal stenosis, lumbar region, with urvashi rogenic claudication Lumbar radicular pain Thoracic or lumbosacral neuritis or radi culitis, unspecified Back pain Backache, unspecified documented in this encounter Care Teams Ticket Agent Relationship Specialty Start Date End Date Edison Tam MD PCP - General Family Practice 09/21/11 07/22/14 909 [facility] 4 [place] [address] documented as of this encounter
--- OUTSIDE RECORDS SUMMARY | 2021-10-24 12:01 | XMS_ITS | Encounter Summary ---
:1955 Author Organization [place] Address [address] [place] [address] Care Team Providers Name Role Phone Edison Tam MD Primary Care Provider Sheri Casey MD Unavailable Alphonso Billy MD Unavailable Encounter Details Date Type Department Care Team Description 11/30/2014 Orders Only [facility] Center For Lung Sheri Casey SOB (s hortness of Science MD Laisha breath) (Primary Dx) 3rd Floor, Clinic [address] [phone] (Wo rk) [phone] Social History Tobacco Use Types Packs/Day Years Used Date Former Smoker 1 18 Smokeless Tobacco: Former User Q uit: 09/20/1991 Alcohol Use Standard Drinks/Week Comments No 0 (1 standard drink = 0.6 oz pure alcoho l) Sex Assigned at Date Recorded Not on file documented as of this encounter Plan of Treatment Not on filedocumented as of this encounter Visit Diagnoses Diagnosis SOB (shortness of breath) - Primary Shortness of breath documented in this encounter Care Teams Quill Cleaning Machine Operator Relationship Specialty Start Date End Date Edison Tam MD PCP - General Family Practice 07/23/[address] [place] [address] Sheri Casey MD MD Pulmonary Disease 07/23/[address] [address] Alphonso Billy MD MD Cardiology 08/12/14 12/26/17 420 [place] [address] documented as of this encounter
--- OUTSIDE RECORDS SUMMARY | 2021-10-24 12:01 | XMS_ITS | Encounter Summary ---
:1955 Author Organization [place] Address [address] [place] [address] Care Team Providers Name Role Phone Edison Tam MD Primary Care Provider Reason for Visit Reason Comments Infusion Reclast Encounter Details Date Type Department Care Team Description 01/20/2014 Infusion Therapy Specialty Infusion Laisha Moraes istory of corticosteroid therapy; Visit and Procedure MD [facility] [address] [place] [address] LukeYonatan [facility] [address] [place], [place] [address] [place] [address] SE (Work) [place], [place] [phone] [address] (Fax) [phone] Social History Tobacco Use Types Packs/Day Years Used Date Former Smoker 1 18 Smokeless Tobacco: Former User Q uit: 09/20/1991 Alcohol Use Standard Drinks/Week Comments No 0 (1 standard drink = 0.6 oz pure alcoho l) Sex Assigned at Date Recorded Not on file documented as of this encounter Last Filed Vital Signs Vital Sign Reading Time Taken Comments Blood Pressure 95/58 01/20/2014 4:10 PM K[facility]TER [facility] Pulse 102 01/20/2014 4:10 PM [facility] Temperature 36.6 ??C (97.9 ??F) 01/20/2014 2:04 PM KN[facility]TER HAND Respiratory Rate - - Oxygen Saturation 96% 01/20/2014 2:04 PM KN[facility] HAND Inhaled Oxygen Concentration - - Weight - - Height - - Body Mass Index - - documented in this encounter Progress Notes Urszula Camejo RN - 01/20/2014 3:51 PM CST Infusion Nursing Note: Maria E Coley presents today to [facility] for a Reclast infusion. During today's [facility] appointment orders from Dr. Laisha Moraes were completed. Frequency: every year Progress note: ID verified by name and . Assessment completed. Vitals were stable throughout time in [facility]. Patient education regarding infusion and possible side effects provided. Patient verbalized understanding. Premedications: were not ordered. Infusion Rates: Infusion given over approximately 30 minutes with a 20 ml NS infusion. Labs were drawn per orders. Vascular access: Peripheral IV placed today. Treatment Conditions: Patient???s Creatinine Clearance ok'ed by pharmacy. Medication administered per order. Patient tolerated infusion well. Discharge Plan: Follow up plan of care with: Primary Medical Doctor Discharge instructions were reviewed with patient. 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 [facility] in stable condition. Urszula Camejo RN Administrations This Visit zoledronic Acid (RECLAST) IVPB 5 mg Administered Action Dose Route Administered By 01/20/2014 New Bag 5 mg Intravenous Urszula Camejo RN BP 112/61 Pulse 80 Temp(Src) 97.9 ??F (36.6 ??C) (Oral) SpO2 96% TER HAND documented in this encounter Plan of Treatment Not on filedocumented as of this encounter Procedures Procedure Name Priority Date/Time Associated Diagnosis Comme nts CREATININE Routine 01/20/2014 2:30 PM History of Results f or this [facility] corticosteroid t herapy procedure are in [facility]opor[facility] the resu lts section. CALCIUM Routine 01/20/2014 2:30 PM History of Results f or this [facility] corticosteroid t herapy procedure are in [facility] Osteoporosis the resu lts section. documented in this encounter Results Calcium (01/20/2014 2:30 PM [facility]) athologist Signature Calcium 9.0 8.5 - 10.1 [facility] mg/dL C[facility] Comment: Effective 10/07/2013, the reference range for this assay has changed to reflect new instrumentation/methodology. Specimen Anatomical Collection Method Collection Time Receive d Time (Source) Location / / Volume Laterality Blood specimen 01/20/2014 2:30 PM 014 2:38 (specimen) [facility] PM [facility] Laisha Moraes MD LAB - BLOOD ORDERABLES Performing Organization Address City/[facility]/ZIP Code Phon e Number [address] [address] [facility] (ABNORMAL) Creatinine (01/20/2014 2:30 PM K[facility]) athologist Signature Creatinine 0.96 0.52 - [facility] 1.04 mg/dL [facility] GFR Estimate 59 (L) >60 [facility] mL/min/1.7 [facility] m2 Comment: Non GFR Calc GFR Estimate If Black 72 >60 mL/min/1.7m2 F [facility] Comment: GFR Calc Specimen Anatomical Collection Method Collection Time Receive d Time (Source) Location / / Volume Laterality Blood specimen 01/20/2014 2:30 PM 014 2:38 (specimen) [facility] PM [facility] Laisha Moraes MD LAB - BLOOD ORDERABLES Performing Organization Address City/[facility]/ZIP Code Phon e Number [address] [address] [facility] documented in this encounter Visit Diagnoses Diagnosis History of corticosteroid therapy Personal history of systemic steroid the rapy Senile osteoporosis documented in this encounter Administered Medications Inactive Administered Medications - up to 3 most recent administrations Medication Order MAR Action Action Date Dose Rate Site zoledronic Acid (RECLAST) IVPB 5 mg New Bag 01/20/2014 3:39 PM [facility] 5 mg 5 mg, Intravenous, Administer over 30 Minutes, ONCE, On Sat01/20/14 at 1530, For 1 dose, Every year documented in this encounter Care Teams Cardiology Associate Relationship Specialty Start Date End Date Edison Tam MD PCP - General Family Practice 09/21/11 07/22/[address] [address] documented as of this encounter
--- OUTSIDE RECORDS SUMMARY | 2021-10-24 12:01 | XMS_ITS | Encounter Summary ---
:1955 Author Organization [place] Address [address] [place] [address] Care Team Providers Name Role Phone Edison Tam MD Primary Care Provider Reason for Visit Reason Onset Date Comments Refill Request 12/24/2013 Encounter Details Date Type Department Care Team Description 12/24/2013 Refill Diabetes and Endocri ne Laisha Moraes MD Refill Request 6th Floor, Clinic [address]A [address] [facility] [address] 6 [facility] [place] [phone] Social History Tobacco Use Types Packs/Day [...] on filedocumented in this encounter Care Teams Financial Sales Manager Relationship Specialty Start Date End Date Edison Tam MD PCP - General Family Practice 09/21/11 07/22/[address] [address] documented as of this encounter
--- OUTSIDE RECORDS SUMMARY | 2021-10-24 12:01 | XMS_ITS | Encounter Summary ---
:1955 Author Organization [place] Address [address] [place] [address] Care Team Providers Name Role Phone Edison Tam MD Primary Care Provider Sheri Casey MD Unavailable Alphonso Billy MD Unavailable Encounter Details Date Type Department Care Team Description 12/01/2014 Orders Only Lung Science [facility]FT Sheri Casey Shortness of breath [facility] Medicine MD Laisha (Primary Dx) Luke Goldmanensteen [address] [place] [address] [facility] Building [address] 3rd Floor, Clinic [address] [place] [id number] [place] [address] (Wo rk) [phone] Social History Tobacco Use Types Packs/Day Years [...] Name Priority Date/Time Associated Comments Diagnosis HC DIFFUSING CAPACITY Routine 12/01/2014 10:24 Shortness of AM CDT breath HC PLETHYSMOGRAPHY LUNG Routine 12/01/2014 10:24 Shortness of VOLUMES W/WO AIRWAY AM CDT breath RESIST HC RESPIRATORY FLOW Routine 12/01/2014 10:24 Shortness of VOLUME LOOP AM CDT breath HC VITAL CAPACITY TOTAL Routine 12/01/2014 10:24 Shortness of AM CDT breath PFT GENERAL LAB TESTING Routine 12/01/2014 9:57 Shortness of R esults for this AM CDT breath procedure are i n the results section. documented in this encounter Results PFT Lab Testing (Generic) (12/01/2014 9:57 AM CDT) P athologist Signature FVC-Pred 2.95 L [facility] FVC-Pre 3.40 L [facility] FVC-%Pred-Pre 115 % [facility] FEV1-Pre 2.72 L [facility] FEV1-%Pred-Pre 116 % [facility] [id number] 80 % [facility] [id number] 80 % [facility] FEFMax-Pred 5.99 L/sec [facility] FEFMax-Pre 5.56 L/sec [facility] FEFMax-%Pred-Pr 92 % [facility] e [id number] 2.17 L/sec [facility] [id number] 2.49 L/sec [facility] IEJ1234-%Pred-P 114 % [facility] re ExpTime-Pre 8.06 sec [facility] FIFMax-Pre 5.31 L/sec [facility] VC-Pred 3.02 L [facility] VC-Pre 3.50 L [facility] VC-%Pred-Pre 115 % [facility] IC-Pred 2.18 L [facility] IC-Pre 2.79 L [facility] IC-%Pred-Pre 128 % [facility] ERV-Pred 0.84 L [facility] ERV-Pre 0.71 L [facility] ERV-%Pred-Pre 84 % [facility] [id number] 81 % [facility] [id number] 79 % [facility] DLCOunc-Pred 20.81 ml/min/mmHg [facility] DLCOunc-Pre 20.41 ml/min/mmHg [facility] DLCOunc-%Pred-P 98 % [facility] re VA-Pre 5.03 L [facility] VA-%Pred-Pre 106 % [facility] [id number] 77 % [facility] [id number] 78 % [facility] Specimen (Source) Anatomical Collection Method Collection Time Re ceived Time Location / / Volume Laterality 12/01/2014 9:57 AM CDT Narrative [facility] - 12/30/2014 1:02 PM CDT IMPRESSION: Normal spirometry. Uncorrected diffusion capacity is normal. ____M.D. ANTHONY HERNDON Sheri Casey MD PFT ORDERABLES Performing Organization Address City/State/ZIP Code Phon e Number [facility] documented in this encounter Visit Diagnoses Diagnosis Shortness of breath - Primary documented in this encounter Care Teams Building Inspection Engineer Relationship Specialty Start Date End Date Edison Tam MD PCP - General Family Practice 07/23/14 909 [facility] [address] [place], [place] [phone] Sheri Casey MD MD Pulmonary Disease 07/23/14 420 [facility] [address] [place], [place] [address] Alphonso Billy MD MD Cardiology 08/12/14 12/26/17 420 [place], [place] [address] documented as of this encounter
--- OUTSIDE RECORDS SUMMARY | 2021-10-24 12:01 | XMS_ITS | Encounter Summary ---
:1955 Author Organization [facility] Address [address] [place] [id number] Care Team Providers Name Role Phone Edison Tam MD Primary Care Provider Reason for Visit Reason Comments Wrist Pain Patient here for wrist pain after a fall Encounter Details Date Type Department Care Team Description 01/25/2014 Office Visit [facility], Primary Sit, MD Dari Pain in joint, Care [facility] [address] forearm, right 3rd Floor, Clinic [facility] [facility] (Primary Dx) [place] Building [address] [place] [address] [facility] [address] (Work) [place] [address] Social History Tobacco Use Types Packs/Day Years Used Date Former Smoker 1 18 Smokeless Tobacco: Former User Q uit: 09/20/1991 Alcohol Use Standard Drinks/Week Comments No 0 (1 standard drink = 0.6 oz pure alcoho l) Sex Assigned at Date Recorded Not on file documented as of this encounter Last Filed Vital Signs Vital Sign Reading Time Taken Comments Blood Pressure 100/66 01/25/2014 2:27 PM CRITICAL CARE SPECIALIST Pulse 86 01/25/2014 2:27 PM CRITICAL CARE SPECIALIST Temperature - - Respiratory Rate - - Oxygen Saturation - - Inhaled Oxygen Concentration - - Weight - - Height - - Body Mass Index - - documented in this encounter Patient Instructions Patient InstructionsMakeda Parker LPN - 01/25/2014 2:27 PM CST Primary [facility] Center Medication Refill Request Information: * Please contact your pharmacy regarding ANY request for medication refills. [facility] Prescription Fax = [phone] * Please allow 3 business days for [...] the results and signed off on them. ICAL CARE SPECIALIST documented in this encounter Progress Notes Dari Wynn MD - 01/25/2014 2:34 PM CST CC: Wrist pain S: This is a 58 yo F who presents with R wrist pain after a fall on Saturday . Pt states that she fell from stairs of her porch, after sliding due to ice. She landed on her buttocks and her R wrist. Since then she is having sharp pain in her R wrist after she uses it. She states that she does not wantto use that arm due to pain after using it. No weakness, tingling or numbness. She does not take anypain medications. She states that pain is tolerable. She is wearing a wrist splint from her previousfractures. She states that she had multiple fractures of that wrist due to falls in the past. She has been on prednisone for years due to Chron's disease. O: BP 100/66 Pulse 86 General: Alert, comfortable, NAD Musculoskeletal: R wrist is non-tender to palpation. No swelling. Has full ROM. Ulnar and radial pulses are normal. No numbness or weakness in R hand. Hand is warm. Assessment and Plan: # R wrist pain s/p fall: XRay did not show any new fractures. It showed old fracture including an old ununited fracture, which could be the bump that pt felt in her wrist. She was recommended to continue to wear her wrist splint, and I also recommended her to apply ice to that area to help with possible soft tissue injury that has been causing her pain after activity. If persistent pain or worsening symptoms, pt was advised to call. Dari Wynn MD ICAL CARE SPECIALIST documented in this encounter Nursing Notes Makeda Parker LPN - 01/25/2014 2:27 PM CST Chief Complaint Patient presents with ??? Wrist Pain Patient here for wrist pain after a fall Makeda Praker LPN at 2:27 PM on 01/25/2014. ICAL CARE SPECIALIST documented in this encounter Plan of Treatment Not on filedocumented as of this encounter Results XR Wrist Right G/E 3 Views (01/25/2014 2:55 PM CRITICAL CARE SPECIALIST) Anatomical Region Laterality Modality Right Wrist Right Computed Radiography Specimen (Source) Anatomical Location Collection Method / Collectio n Time Received Time / Laterality Volume Impressions 01/25/2014 6:07 PM CRITICAL CARE SPECIALIST Impression: Almost healed transverse fracture of the distal radius with stable alignment. 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 I have personally reviewed the examinati on and initial interpretation and I agree with the findings. SIOMARA LUNA MD Narrative 01/25/2014 6:07 PM CRITICAL CARE SPECIALIST XR WRIST RT G/E 3 VW, 01/25/2014 2:55 PM. Comparison: None. History: Pain in joint, forearm. Findings: The previously described trans verse fracture of the right distal radius is subtle and mostly heale d. Alignment is stable. No significant dorsal tilt. Previously desc ribed fracture of the ulnar styloid is unchanged, with stable nonuni jose luis fragment. Carpal bones are of normal alignment. No significant dege nerative disease. Soft tissue unremarkable. Procedure Note Siomara Naylor MD - 01/25/2014Forma tting of this note might be different from the original. XR WRIST RT G/E 3 VW, 01/25/2014 2:55 PM . Comparison: None. History: Pain in joint, forearm. Findings: The previously described trans verse fracture of the right distal radius is subtle and mostly heale d. Alignment is stable. No significant dorsal tilt. Previously desc ribed fracture of the ulnar styloid is unchanged, with stable nonuni jose luis fragment. Carpal bones are of normal alignment. No significant dege nerative disease. Soft tissue unremarkable. IMPRESSION Impression: Almost healed transverse fracture of the distal radius with stable alignment. 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 I have personally reviewed the examinati on and initial interpretation and I agree with the findings. SIOMARA LUNA MD Esra Ava [facility]IC IMAGING ORDER EB documented in this encounter Visit Diagnoses Diagnosis Pain in joint, forearm, right - Primary Pain in joint, forearm, right documented in this encounter Care Teams Assignment Editor Relationship Specialty Start Date End Date Edison Tam MD PCP - General Family Practice 09/21/11 07/22/14 [address] [facility] [address] [place] [address] documented as of this encounter
--- OUTSIDE RECORDS SUMMARY | 2021-10-24 12:01 | XMS_ITS | Encounter Summary ---
:1955 Author Organization [facility] Address [address] [place] [address] Care Team Providers Name Role Phone Edison Tam MD Primary Care Provider Sheri Casey MD Unavailable Alphonso Billy MD Unavailable Encounter Details Date Type Department Care Team Description 08/09/2014 Orders Only [facility] Edison Tam, Hy pothyroidism Pulmonary Function MD Laboratory [address] [facility] [address] [place] [address] [address] [facility] [place] [address] Social History Tobacco Use Types [...] Priority Date/Time Associated Diagnosis Comme nts HC DIFFUSING Routine 08/09/2014 11:40 Hypothyroidism CAPACITY AM CDT HC RESPIRATORY FLOW Routine 08/09/2014 11:40 Hypothyroidism VOLUME LOOP AM CDT PFT GENERAL LAB Routine 08/09/2014 11:29 Hypothyroidism Result s for this TESTING AM CDT procedure are i n the results section. documented in this encounter Results Pulmonary function test procedure (08/09/2014 11:29 AM CDT) P athologist Signature FVC-Pred 2.96 L [facility] PFT FVC-Pre 3.59 L [facility] PFT FVC-%Pred-Pre 121 % [facility] PFT FEV1-Pre 2.78 L [facility] PFT FEV1-%Pred-Pre 118 % [facility] PFT [id number] 80 % [facility] PFT [id number] 77 % [facility]ZE PFT FEFMax-Pred 6.01 L/sec [facility]ZE PFT FEFMax-Pre 6.23 L/sec [facility]REEZE PFT FEFMax-%Pred-Pr 103 % [facility]ZE PFT e [id number] 2.19 L/sec [facility]ZE PFT [id number] 2.37 L/sec [facility]ZE PFT HXQ2611-%Pred-P 108 % [facility] PFT re ExpTime-Pre 7.97 sec [facility]ZE PFT FIFMax-Pre 4.39 L/sec [facility]REEZE PFT VC-Pred 3.02 L [facility] PFT VC-Pre 3.72 L [facility]ZE PFT VC-%Pred-Pre 123 % [facility]ZE PFT IC-Pred 2.15 L [facility] PFT IC-Pre 2.74 L [facility]ZE PFT IC-%Pred-Pre 127 % [facility]ZE PFT ERV-Pred 0.87 L [facility] PFT ERV-Pre 0.98 L [facility] PFT ERV-%Pred-Pre 112 % [facility]ZE PFT [id number]-Pajq 81 % [facility]REEZE PFT [id number] 78 % [facility]REEZE PFT DLCOunc-Pred 20.85 ml/min/mmHg BREEZE PFT DLCOunc-Pre 21.73 ml/min/mmHg BREEZE PFT DLCOunc-%Pred-P 104 % [facility]ZE PFT re VA-Pre 5.15 L [facility]ZE PFT VA-%Pred-Pre 108 % [facility]ZE PFT [id number] 77 % [facility]REEZE PFT [id number]-Ptr 75 % [facility]ZE PFT Specimen (Source) Anatomical Collection Method Collection Time Re ceived Time Location / / Volume Laterality 08/09/2014 11:29 AM CDT Narrative [facility] PFT - 03/06/2015 6:23 PM MUSIC TYPOGRAPHER The FVC, FEV1, FEV1/FVC ratio and XZE80-97% are within normal limits. ??The inspiratory flow rates are within normal limits. ??The diffusing capacity is normal. IMPRESSION: Normal Pulmonary Function ____M.D. The FVC, FEV1, FEV1/FVC ratio and FEF25- 75% are within normal limits. ??The inspiratory flow rates are within normal limits. ??The diffusing capacity is normal. IMPRESSION: Normal Pulmonary Function ____M.D. Terrell Colon Edison Tam MD PFT ORDERABLES Performing Organization Address City/State/ZIP Code Phon e Number [facility] PFT documented in this encounter Visit Diagnoses Diagnosis Hypothyroidism Unspecified hypothyroidism documented in this encounter Care Teams Adult Day Care Worker Relationship Specialty Start Date End Date Edison Tam MD PCP - General Family Practice 07/23/14 [address] [facility] [address] [place], [place] [id number] Sheri Casey MD MD Pulmonary Disease 07/23/14 [address] [facility] [address] [place], [place] [id number] Alphonso Billy MD MD Cardiology 08/12/14 12/26/17 [address] [place], [place] [id number] documented as of this encounter
--- OUTSIDE RECORDS SUMMARY | 2021-10-24 12:01 | XMS_ITS | Encounter Summary ---
:1955 Author Organization [facility] Address [address] [place] [id number] Care Team Providers Name Role Phone Edison Olivas MD Primary Care Provider Sheri Casey MD Unavailable Reason for Referral CV Cardio consult - Closed Specialty Diagnoses / Procedures Referred By Contact Refer red To Contact Diagnoses H/O carbon monoxide poisoning Fatigue Edison Olivas MD [address] [facility] [place] 4 [place], [place] [address] Referral ID Status Reason Start Date Expiration Date Visits Requ ested Visits Authorized [id number] Closed 08/09/2014 02/05/2015 1 1 Reason for Visit Reason Comments Toxic Inhalation I have been to carbon mono xide poisoning for 2 years.: Encounter Details Date Type Department Care Team Description 08/09/2014 Office Visit [facility] H/O carbon monoxide poisoning (Primary Dx); [facility] Teresa Kennedy MD Fatigue; 3rd Floor, Clinic 3A [address] [facility] Myalgia and myositis ; [facility] 4 Yossi's thyroiditis; [place], [place] Restless leg syndrome; [address] [place] [id number] [facility] [phone] [facility] 88 (Work) [place], [place] [phone] (Fax) [phone] Social History Tobacco Use Types Packs/Day Years Used Date Former Smoker 1 18 Smokeless Tobacco: Former User Q uit: 09/20/1991 Alcohol Use Standard Drinks/Week Comments No 0 (1 standard drink = 0.6 oz pure alcoho l) Sex Assigned at Date Recorded Not on file documented as of this encounter Last Filed Vital Signs Vital Sign Reading Time Taken Comments Blood Pressure 112/74 08/09/2014 10:07 AM CDT Pulse 72 08/09/2014 10:07 AM CDT Temperature - - Respiratory Rate 24 08/09/2014 10:07 AM CDT Oxygen Saturation 97% 08/09/2014 10:07 AM CDT Inhaled Oxygen Concentration - - Weight 56.8 kg (125 lb 3.2 08/09/2014 10:07 AM wearing shoes oz) CDT Height - - Body Mass Index 23.27 01/14/2014 4:56 PM [employer] documented in this encounter Patient Instructions Patient InstructionsJoSuha calzada LPN - 08/09/2014 10:08 AM CDT Primary [facility] Center Medication Refill Request Information: * Please contact your pharmacy regarding ANY request for medication refills. [facility] Prescription Fax = [phone] * Please allow 3 business days for [...] documented in this encounter Progress Notes Edison Olivas MD - 08/09/2014 10:16 AM CDT Mari aE Coley is here for follow up of Carbon monoxide exposure. SUBJECTIVE: Maria E Coley is a 58-year-old female who comes in today for followup after exposure to carbon monoxide. She went to [facility] on 07/08/2014 ( unable to review records through care-everywhere) after she had been living in the lower duplex and the lady who lives in the top of the duplex noted gas leaks. [employer] came out and they determined that their home had high levels of carbon monoxide due to the stove and the boilers of their heating. The stoves have been replaced, the boilers will be replaced. The gas was turned off of the heating units and therefore she has not had them on since 07/08. She does note that she thinks this carbon monoxide exposurehas been going on going on for over 2 years. In particular, she would note the winter months that she would feel more lethargic, she would feel short of breath, had a dullness to her mentation, low-grade headache which she calls cotton ball headache, difficulty thinking and on 07/08 she had loss of c onsciousness. She usually wakes up in the morning. She sleeps with a window open all during the yearand this is by her bed. She went down to make her coffee on the stove, turned the stove on, had lossof consciousness, then found herself on the floor. She had fallen by an open window which she thinkssaved her. She then was talking with the woman up stairs about her situation and that is when they determined that they both thought they had smelled gas in the home so contacted [facility] [employer]. She is concerned about the impact of carbon monoxide exposure on her life, short-term and long-term. She has had some change of her mental health in the past and some memory impairment. She does have restless legs syndrome at night. She also has Crohn's disease, but that has been under excellent control. She has been having right leg pain but is seeing a Irish archery equipment repairer for her symptoms and that is helping. She purchased a boost oxygen container on [employer], which is 95% oxygen and 5% air. She feels as though she cannot get a deep breath in at times, but for the most times denies any significant dyspnea. She denies any significant chest pain. She indicates that travel to [place] in March 2014 at [facility] for 3 weeks probably saved her life because she was not exposed to the heat in her home during winter. She has noted that she feels more sensitive to symptoms of carbon monoxide in particular when she is driving her car. She will notice that if she is stopped in traffic she will be much more sensitive to the carbon monoxide from the car in front of her. She also has a storage unit where she feels as though she gets lightheaded symptoms in that location. She is still living in the home, but the landlord will be replacing the heating units as it is something that he has to do related to carbon monoxide levels. She has a new carbon monoxide monitor that reads out parts per million andis aware of the levels. She had sent me a message through [employer]. I ordered a pulmonary consult andwallye is coming in to see me today. SH: She lives in a [facility] [address] [facility] [id number]. The Lady who lives upstairs noted a gas leak and called [employer] July 08 to check the home and the radiator,stove units were emitting carbon monoxide over than 173 ppm. The stoves have been replaced and the boilers will be replaced. She has been opening the windows. Her carbon monoxide monitor did not go off. She has changed the batteries to her CO monitor and now has one the registers ppm. Patient Active Problem List Diagnosis ??? Yossi's thyroiditis ??? Crohn's disease of both small and large intestine with complication ??? Adjustment disorder with mixed anxiety and depressed mood ??? Fatigue ??? Renal mass, right ??? Sacro-iliac pain ??? Dermatitis ??? Fibrosis of skin ??? Cholelithiases ??? Fall ??? Concussion ??? Restless leg syndrome ??? Right wrist fracture ??? Pyelonephritis ??? Neoplasm of uncertain behavior of skin ??? Dehydration ??? Sinus infection ??? Connective tissue disorder ??? Inflammatory bowel disease (Crohn's disease) ??? Hypothyroidism ??? Numbness and tingling of left leg ??? Chronic low back pain ??? Lumbar stenosis with neurogenic claudication ??? Lumbar radicular pain ??? Sacroiliac joint pain ??? Low back pain ??? Senile osteoporosis ??? Personal history of other drug therapy ??? History of corticosteroid therapy Past Medical History Diagnosis Date ??? Crohn's [...] hand skin cancer (left) ??? Yossi's disease Current Outpatient Prescriptions Medication Sig Dispense Refill ??? UNABLE TO FIND 3 times daily MEDICATION NAME:Irish herbs ??? cyanocobalamin (VITAMIN B12) 1000 MCG/ML [...] Units) by mouth daily Discontinue Vitamin D 12137 100 tablet 3 ??? acetaminophen (TYLENOL) 500 [...] 1 tablet by mouth 2 times daily. Family History Problem Relation Age of Onset [...] ??? Colon Polyps No family hx of History Social History ??? Marital Status: Single [...] on file Social History Narrative [place] [facility]. She is living in an apartment accessible. 10 point ROS of systems including Constitutional, Eyes, Respiratory, Cardiovascular, Gastroenterology, Genitourinary, Integumentary, Musculoskeletal, Neurological, Psychiatric were all negative except for pertinent positives noted in my HPI. BP 112/74 mmHg Pulse 72 Resp 24 Wt 56.79 kg (125 lb 3.2 oz) SpO2 97% Constitutional: Oriented to person, place, and time. Vital signs are noted. Appears well-developed and well-nourished. Non-toxic appearance. No distress. HENT: TM normal. External canal normal. Head: Normocephalic and atraumatic. Mouth/Throat: Oropharynx is clear and moist. No oropharyngeal exudate. Eyes: Conjunctivae and EOM are normal. Pupils are equal, round, and reactive to light. No scleral icterus. Neck: Normal range of motion. Neck supple. No JVD present. No tracheal deviation present. No thyromegaly present. Cardiovascular: Regular rhythm, normal heart sounds and intact distal pulses. No murmur present. Exam reveals no gallop and no friction rub. Pulmonary/Chest: Effort normal and breath sounds normal. No respiratory distress. Abdominal: Soft. Bowel sounds are normal. No distension and no mass. No tenderness. Musculoskeletal: Normal range of motion. No edema and no tenderness. Lymphadenopathy: No cervical adenopathy. Neurological: Alert and oriented to person, place, and time. Normal strength. No cranial nerve deficit or sensory deficit. DTR s normal. Neurologically intact. Assessment Abiodun was president, 08/09/2014, able to spell world backwards. She has detailed notes related to her situation that are typed, so cognitively she appears intact. [id number] is accurate. Pupils are equal, reactive to light and accommodation. Cranial nerves II-XII are intact. She can walk and Romberg are within normal limits. Skin: Skin is warm and dry. No rash noted. No erythema. No pallor. Psychiatric: Normal mood, affect and behavior is normal. Results for orders placed or performed in visit on 08/09/14 CBC with platelets differential Result Value Ref Range WBC 7.2 4.0 - 11.0 10e9/L RBC Count 4.99 3.8 - 5.2 10e12/L Hemoglobin 14.9 11.7 - 15.7 g/dL Hematocrit 45.9 35.0 - 47.0 % MCV 92 78 - 100 fl MCH 29.9 26.5 - 33.0 pg MCHC 32.5 31.5 - 36.5 g/dL RDW 12.7 10.0 - 15.0 % Platelet Count 205 150 - 450 10e9/L Diff Method Automated Method % Neutrophils 83.1 % % Lymphocytes 11.1 % % Monocytes 4.8 % % Eosinophils 0.6 % % Basophils 0.3 % % Immature Granulocytes 0.1 % Absolute Neutrophil 6.0 1.6 - 8.3 10e9/L Absolute Lymphocytes 0.8 0.8 - 5.3 10e9/L Absolute Monoctyes 0.4 0.0 - 1.3 10e9/L Absolute Eosinophils 0.0 0.0 - 0.7 10e9/L Absolute Basophils 0.0 0.0 - 0.2 10e9/L Abs Immature Granulocytes 0.0 0 - 0.4 10e9/L TSH with free T4 reflex Result Value Ref Range TSH 1.11 0.40 - 4.00 mU/L Comprehensive metabolic panel Result Value Ref Range Sodium 138 133 - 144 mmol/L Potassium 4.1 3.4 - 5.3 mmol/L Chloride 104 94 - 109 mmol/L Carbon Dioxide 27 20 - 32 mmol/L Anion Gap 6 3 - 14 mmol/L Glucose 92 70 - 99 mg/dL Urea Nitrogen 10 7 - 30 mg/dL Creatinine 0.85 0.52 - 1.04 mg/dL GFR Estimate 68 >60 mL/min/1.7m2 GFR Estimate If Black 82 >60 mL/min/1.7m2 Calcium 8.5 8.5 - 10.1 mg/dL Bilirubin Total 0.4 0.2 - 1.3 mg/dL Albumin 4.2 3.4 - 5.0 g/dL Protein Total 7.0 6.8 - 8.8 g/dL Alkaline Phosphatase 72 40 - 150 U/L ALT 45 0 - 50 U/L AST 28 0 - 45 U/L Carbon monoxide Result Value Ref Range Carbon Monoxide 2.6 (H) 0 - 2 % CK total Result Value Ref Range CK Total 126 30 - 225 U/L Lipid panel reflex to direct LDL Result Value Ref Range Cholesterol 223 (H) <200 mg/dL Triglycerides 224 (H) 0 - 150 mg/dL HDL Cholesterol 85 >50 mg/dL LDL Cholesterol Calculated 93 0 - 129 mg/dL VLDL-Cholesterol 45 (H) 0 - 30 mg/dL Cholesterol/HDL Ratio 2.6 0.0 - 5.0 ASSESSMENT AND PLAN: Maria E Coley, 58 year old who has had exposure to carbon monoxide with anepisode of loss of consciousness seen at [facility] on 07/08. Her carbon monoxide levels were not elevated. The stoves in the home have been replaced, the heating is being replaced and the gas been turned off from the source that they suspect for carbon monoxide. I have recommended that she meet with her vp cardiovascular to make sure that she has her car settings on the appropriate levels when she is driving so that she does not get excessive amounts of carbon monoxide in her car but for the time being she will drive with the windows cracked slightly. We also are ordering pulmonary function. She will follow up with Pulmonary. I ordered a cardiology consult. She indicates that at [facility] they did an EKG and was not able to review Care Everywhere while she was here although consent was asked to be obtained and access after she left was not possible. She will follow up with me in 1-2 months. I have reassured her that most likely her situation will be better than most people because her home will be checked. I congratulated her on getting carbon monoxide detectors and to make sure that the batteries are working at all times. I provided her with [facility] information on carbon monoxide at time of visit. Over 50 minutes was spent with Maria E of which 40 was counseling and coordination of cares. Maria E was seen today for toxic inhalation. Diagnoses and associated orders for this visit: H/O carbon monoxide poisoning - CBC with platelets differential - TSH with free T4 reflex - Comprehensive metabolic panel - Carbon monoxide - Lipid panel reflex to direct LDL - CARDIOLOGY EVAL ADULT REFERRAL Fatigue - CARDIOLOGY EVAL ADULT REFERRAL Myalgia and myositis - TSH with free T4 reflex - CK total Yossi's thyroiditis Restless leg syndrome Hypothyroidism - Lipid panel reflex to direct LDL - Pulmonary function test procedure; Future [phone] (home) I called her at 3:40pm on August 10, 2014 with the above results. All are excellentexcept carbon monoxide is slightly high at 2.6 normal less than 2 therefore I recommended she contact [facility] again to check the home, have her car checked as she drove to the clinic and contact poison control for further recommedations. I also recommended she leave the home as she is feeling headache symptoms and noted the cats are lethargic. She has the windows open. She voiced understanding and agreement. She will contact us to let us know she is well. All questions were addressed and voiced understanding and agreement with the above. Edison Olivas documented in this encounter Nursing Notes Suha Clarke LPN - 08/09/2014 10:07 AM CDT Chief Complaint Patient presents with ??? Toxic Inhalation I have been to carbon monoxide poisoning for 2 years.: Suha Clarke LPN 10:07 AM on 08/09/2014 documented in this encounter Plan of Treatment Scheduled Referrals Name Type Priority Associated Diagnoses Order S chedule CARDIOLOGY EVAL ADULT Referral Routine H/O carbon monoxide Ordered: 08/09/2014 REFERRAL poisoning Fatigue documented as of this encounter Procedures Procedure Name Priority Date/Time Associated Diagnosis Comme nts CBC WITH PLATELETS & Routine 08/09/2014 12:05 H/O carbon monox juan alberto Results for this DIFFERENTIAL PM CDT poisoning procedure are i n the results section. TSH WITH FREE T4 Routine 08/09/2014 12:05 Myalgia and my ositis Results for this REFLEX PM CDT H/O carbon monoxide procedur e are in poisoning the results section. LIPID REFLEX TO Routine 08/09/2014 12:05 Hypothyroidism Results for this DIRECT LDL PANEL PM CDT H/O carbon monoxide proc edure are in poisoning the results section. COMPREHENSIVE Routine 08/09/2014 12:05 H/O carbon monoxide Res ults for this METABOLIC PANEL PM CDT poisoning procedure ar e in the results section. CK TOTAL Routine 08/09/2014 12:05 Myalgia and myositis Res ults for this PM CDT procedure are i n the results section. CARBON MONOXIDE Routine 08/09/2014 12:05 H/O carbon monoxide R esults for this PM CDT poisoning procedure are i n the results section. documented in this encounter Results (ABNORMAL) Lipid panel reflex to direct LDL (08/09/2014 12:05 PM CDT) P athologist Signature Cholesterol 223 (H) <200 mg/dL [facility] Comment: LDL Cholesterol is the primary guide to therapy. The NCEP recommends further evaluation of: patients with cholesterol greater than 200 mg/dL if additional risk facto rs are present, cholesterol greater than 240 mg/dL, triglycerides greater than 1 50 mg/dL, or HDL less than 40 mg/dL. Triglycerides 224 (H) 0 - 150 mg/dL [facility] Comment: Fasting specimen HDL Cholesterol 85 >50 mg/dL [facility] LDL Cholesterol Calculated 93 0 - 129 mg/dL [facility] Comment: LDL Cholesterol is the primary guide to therapy: LDL-cholesterol goal in high risk patients is <100 mg/dL and in very high risk patients is <70 mg/dL. VLDL-Cholesterol 45 (H) 0 - 30 mg/dL [facility] Cholesterol/HDL Ratio 2.6 0.0 - 5.0 [facility] Specimen Anatomical Collection Method Collection Time Receive d Time (Source) Location / / Volume Laterality Blood specimen 08/09/2014 12:05 5 (specimen) PM CDT 12:07 PM CDT Edison Olivas MD LAB - BLOOD ORDERABLES Performing Organization Address City/[facility]/ZIP Code Phon e Number [address] CK total (08/09/2014 12:05 PM CDT) P athologist Signature CK Total 126 30 - 225 [facility] Specimen Anatomical Collection Method Collection Time Receive d Time (Source) Location / / Volume Laterality Blood specimen 08/09/2014 12:05 5 (specimen) PM CDT 12:07 PM CDT Edison Olivas MD LAB - BLOOD ORDERABLES Performing Organization Address City/[facility]/ZIP Code Phon e Number [address] (ABNORMAL) Carbon monoxide (08/09/2014 12:05 PM CDT) P athologist Signature Carbon 2.6 (H) 0 - 2 % [facility] Specimen Anatomical Collection Method Collection Time Receive d Time (Source) Location / / Volume Laterality Blood specimen 08/09/2014 12:05 5 (specimen) PM CDT 12:07 PM CDT Edison Olivas MD LAB - BLOOD ORDERABLES Performing Organization Address City/[facility]/ZIP Code Phon e Number [facility] [address] Comprehensive metabolic panel (08/09/2014 12:05 PM CDT) athologist Signature Sodium 138 133 - 144 [facility] mmol/L [facility] Potassium 4.1 3.4 - 5.3 [facility] mmol/L [facility] Chloride 104 94 - 109 [facility] mmol/L [facility] Carbon Dioxide 27 20 - 32 [facility] mmol/L [facility] Anion Gap 6 3 - 14 [facility] mmol/L [facility] Glucose 92 70 - 99 [facility] mg/dL [facility] Urea Nitrogen 10 7 - 30 [facility] mg/dL [facility] Creatinine 0.85 0.52 - [facility] 1.04 mg/dL [facility] GFR Estimate 68 >60 [facility] mL/min/1.[address] Comment: Non GFR Calc GFR Estimate If Black 82 >60 mL/min/1.7m2 [facility] Comment: GFR Calc Calcium 8.5 8.5 - 10.1 mg/dL [facility] Bilirubin Total 0.4 0.2 - 1.3 mg/dL [facility] Albumin 4.2 3.4 - 5.0 g/dL [facility] Protein Total 7.0 6.8 - 8.8 g/dL [facility] Alkaline Phosphatase 72 40 - 150 U/L [facility] ALT 45 0 - 50 U/L [facility] AST 28 0 - 45 U/L [facility] Specimen Anatomical Collection Method Collection Time Receive d Time (Source) Location / / Volume Laterality Blood specimen 08/09/2014 12:05 5 (specimen) PM CDT 12:07 PM CDT Edison Olivas MD LAB - BLOOD ORDERABLES Performing Organization Address City/State/ZIP Code Phon e Number [facility] [address] [place] [address] [facility] TSH with free T4 reflex (08/09/2014 12:05 PM CDT) athologist Signature TSH 1.11 0.40 - 4.00 [facility] mU/L [facility] Specimen Anatomical Collection Method Collection Time Receive d Time (Source) Location / / Volume Laterality Blood specimen 08/09/2014 12:05 201 5 (specimen) PM CDT 12:07 PM CDT Edison Olivas MD LAB - BLOOD ORDERABLES Performing Organization Address City/State/ZIP Code Phon e Number [facility] [address] [place] [address] [facility] CBC with platelets differential (08/09/2014 12:05 PM CDT) [facility] gist Method Time Signature WBC 7.2 4.0 - [facility] 11.0 [facility] 10e9/L [facility] RBC Count 4.99 3.8 - 5.2 [facility] 10e12/L [facility] Hemoglobin 14.9 11.7 - [facility] 15.7 g/dL [facility] Hematocrit 45.9 35.0 - [facility] 47.0 % [facility] MCV 92 78 - 100 [facility] fl [facility] MCH 29.9 26.5 - [facility] 33.0 pg [facility] MCHC 32.5 31.5 - [facility] 36.5 g/dL [facility] RDW 12.7 10.0 - [facility] 15.0 % [facility] Platelet Count 205 150 - 450 [place] [facility] 10e9/L [facility] Diff Method Automated [facility] % Neutrophils 83.1 % [facility] % Lymphocytes 11.1 % [facility] % Monocytes 4.8 % [facility] % Eosinophils 0.6 % [facility] % Basophils 0.3 % [facility] % Immature 0.1 % [facility] Granulocytes [facility] Absolute 6.0 1.6 - 8.3 [facility] Neutrophil 10e9/L [facility] Absolute 0.8 0.8 - 5.3 [facility] Lymphocytes 10e9/L [facility] Absolute 0.4 0.0 - 1.3 [facility] Monocytes 10e9/L [facility] Absolute 0.0 0.0 - 0.7 [facility] Eosinophils 10e9/L [facility] Absolute 0.0 0.0 - 0.2 [facility] Basophils 10e9/L [facility] Abs Immature 0.0 0 - 0.4 [facility] 10e9/L [facility] Specimen Anatomical Collection Method Collection Time Receive d Time (Source) Location / / Volume Laterality Blood specimen 08/09/2014 12:05 5 (specimen) PM CDT 12:07 PM CDT Edison Olivas MD LAB - BLOOD ORDERABLES Performing Organization Address City/State/ZIP Code Phon e Number [facility] [address] [place] [address] [facility] Pulmonary function test procedure (08/09/2014 11:29 AM CDT) P athologist Signature FVC-Pred 2.96 L [facility] FVC-Pre 3.59 L [facility] FVC-%Pred-Pre 121 % [facility] FEV1-Pre 2.78 L [facility] FEV1-%Pred-Pre 118 % [facility] [id number] 80 % [facility] [id number] 77 % [facility] FEFMax-Pred 6.01 L/sec [facility] FEFMax-Pre 6.23 L/sec [facility] FEFMax-%Pred-Pr 103 % [facility] e [id number] 2.19 L/sec [facility] [id number] 2.37 L/sec [facility] [id number]-%[id number]-P 108 % [facility] re ExpTime-Pre 7.97 sec [facility] FIFMax-Pre 4.39 L/sec [facility] VC-Pred 3.02 L [facility] VC-Pre 3.72 L [facility] VC-%Pred-Pre 123 % [facility] IC-Pred 2.15 L [facility] IC-Pre 2.74 L [facility] IC-%Pred-Pre 127 % [facility] ERV-Pred 0.87 L [facility] ERV-Pre 0.98 L [facility] ERV-%Pred-Pre 112 % [facility] [id number] 81 % [facility] [id number] 78 % [facility] DLCOunc-Pred 20.85 ml/min/mmHg [facility] DLCOunc-Pre 21.73 ml/min/mmHg [facility] DLCOunc-%Pred-P 104 % [facility] re VA-Pre 5.15 L [facility] VA-%Pred-Pre 108 % [facility] [id number] 77 % [facility] [id number] 75 % [facility] Specimen (Source) Anatomical Collection Method Collection Time Re ceived Time Location / / Volume Laterality 08/09/2014 11:29 AM CDT Narrative [facility] - 03/06/2015 6:23 PM [employer] The FVC, FEV1, FEV1/FVC ratio and MJI19-00% are within normal limits. ??The inspiratory flow rates are within normal limits. ??The diffusing capacity is normal. IMPRESSION: Normal Pulmonary Function ____M.D. The FVC, FEV1, FEV1/FVC ratio and FEF25- 75% are within normal limits. ??The inspiratory flow rates are within normal limits. ??The diffusing capacity is normal. IMPRESSION: Normal Pulmonary Function ____M.D. Terrell Colon Edison Olivas MD PFT ORDERABLES Performing Organization Address City/State/ZIP Code Phon e Number [place] PFT documented in this encounter Visit Diagnoses Diagnosis H/O carbon monoxide poisoning - Primary Personal history of poisoning, presentin g hazards to health Fatigue Other malaise and fatigue Myalgia and myositis Mylagia and myositis, unspecified Yossi's thyroiditis Chronic lymphocytic thyroiditis Restless leg syndrome Restless legs syndrome (RLS) Hypothyroidism Unspecified hypothyroidism Hypothyroidism Unspecified hypothyroidism documented in this encounter Care Teams Cook Helper Relationship Specialty Start Date End Date Edison Olivas MD PCP - General Family Practice 07/23/[address] [address] Sheri Casey MD MD Pulmonary Disease 07/23/[address] [place] [address] documented as of this encounter
--- OUTSIDE RECORDS SUMMARY | 2021-10-24 12:01 | XMS_ITS | Encounter Summary ---
:1955 Author Organization [place] Address [address] [place] [address] Care Team Providers Name Role Phone Edison Tam MD Primary Care Provider Sheri Casey MD Unavailable Alphonso Billy MD Unavailable Reason for Visit Reason Onset Date Comments Refill Request 10/11/2014 ropinirole Encounter Details Date Type Department Care Team Description 10/11/2014 Refill [facility], Primary Edison Tam Refill Request Care Center MD Marcia (ropinirole) 3rd Floor, Clinic [address] [place] [id number] [place] [address] [place] [address] Social History Tobacco Use Types [...] legs syndrome (RLS) documented in this encounter Care Teams Cadd Technician Relationship Specialty Start Date End Date Edison Tam MD PCP - General Family Practice 07/23/[address] [place] [address] 4 [place], [place] [address] Sheri Casey MD MD Pulmonary Disease 07/23/14 420 [facility] 276 [place], [place] [phone] Alphonso Billy MD MD Cardiology 08/12/14 12/26/17 420 [place], [place] [phone] documented as of this encounter
--- OUTSIDE RECORDS SUMMARY | 2021-10-24 12:01 | XMS_ITS | Encounter Summary ---
:1955 Author Organization [place] Address [address] [place] [address] Care Team Providers Name Role Phone Edison Tam MD Primary Care Provider Encounter Details Date Type Department Care Team Description 01/27/2014 Radiant Appointment [facility]; Center Lumbar stenosis with neuroge oleksandr claudication; Radhika-Wangensteen Lumbar r adicular pain Building 1st Floor, Clinic 1D [place], [place] [address] Social History Tobacco Use Types Packs/Day Years [...] Comme nts MR LUMBAR SPINE W/O Routine 01/27/2014 11:59 AM Back ashwini n Results for this & W CONTRAST EMERGENCY MANAGEMENT DIRECTOR Lumbar stenosis with procedu re are in neurogenic the results claudication section. Lumbar radicular pain documented in this encounter Results MR Lumbar Spine w/o & w Contrast (01/27/2014 11:59 AM EMERGENCY MANAGEMENT DIRECTOR) Anatomical Region Laterality Modality Spine, SUBRAD MR MSK, UMP MR SPINE Magne tic Resonance Specimen (Source) Anatomical Location Collection Method / Collectio n Time Received Time / Laterality Volume Impressions 01/27/2014 5:24 PM EMERGENCY MANAGEMENT DIRECTOR Impression: 1. No significant change in degenerative changes including moderate to left L3-L4 neural foraminal narrowing an d multilevel mild spinal canal stenosis since comparison MRI 05/20/2013. Specifically there is no evidence of increased L5 nerve root comp ression. 2. Interval improvement in likely degene rative endplate changes at L3-L4 since comparison MRI 05/20/2013 3. 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 4. Postoperative changes of L3-L5 richie ctomy I have personally reviewed the examinati on and initial interpretation and I agree with the findings. WAYNE FONSECA MD Narrative 01/27/2014 5:24 PM EMERGENCY MANAGEMENT DIRECTOR MR LUMBAR SPINE W/O & W CONTRAST 01/27/2014 11:59 AM History: eval R L5 compression,Backache, unspecified Comparison: Plain film lumbar spine 01/14, MR MRI lumbar spine 05/20/2013. Technique: Sagittal T1-weighted and T2-w eighted and axial T1-weighted and T2-weighted images of the lumbar spi ne were obtained without intravenous contrast. Following intraven ous administration of gadolinium, axial and sagittal T1-weight ed images with fat saturation were also obtained. Contrast: 7.5ml Gadavist Findings: There are 5 lumbar-type vertebrae assume d for the purposes of this dictation. ??The tip of the conus medull florida is at the superior border of the L1 vertebral body. There is mild rightward laterolisthesis of L3 on L4. Postoperative changes of L3-L5 laminectomy. There is moderate disc height narrowing L3-L4 and severe disc height narrowing at L4-L5. The findings on a level by lev el basis are as follows: L1-2: Mild right foraminal disc protrusi on with mild right neuroforaminal narrowing. No spinal breana l stenosis. L2-3: Mild circumferential disc bulge wi th mild bilateral neuroforaminal narrowing and mild spinal canal stenosis. L3-4: ??There is interval improvement si nce comparison MRI 05/20/2013 of endplate signal changes of the inferior endplate of L3 and superior endplate of L4 which are contrast-enhanc ing and T2 bright. Circumferential asymmetric disc bulge wi th protrusion into the left neural foramen causing moderate to sever e left neural foraminal narrowing, moderate right neural foramin al narrowing, and mild spinal canal stenosis. Epidural and paraspinous enhancement as well as enhancement and edema in and around the left facet joint. L4-5: ??Schmorl's node of the inferior e ndplate of L4. Mild circumferential disc bulge with moderate bilateral neural foraminal narrowing. No significant spinal canal s tenosis. Epidural and right subarticular space enhancement. L5-S1 Bilateral pars intra-articularis d efects with no spondylolisthesis. Mild bilateral neural foraminal narrowing or spinal canal stenosis. Procedure Note Wayne Fonseca MD - 01/09 MR LUMBAR SPINE W/O & W CONTRAST 014 11:59 AM History: eval R L5 compression,Backache, unspecified Comparison: Plain film lumbar spine 01/14, MR MRI lumbar spine 05/20/2013. Technique: Sagittal T1-weighted and T2-w eighted and axial T1-weighted and T2-weighted images of the lumbar spi ne were obtained without intravenous contrast. Following intraven ous administration of gadolinium, axial and sagittal T1-weight ed images with fat saturation were also obtained. Contrast: 7.5ml Gadavist Findings: There are 5 lumbar-type vertebrae assume d for the purposes of this dictation. The tip of the conus medullar is is at the superior border of the L1 vertebral body. There is mild rightward laterolisthesis of L3 on L4. Postoperative changes of L3-L5 laminectomy. There is moderate disc height narrowing L3-L4 and severe disc height narrowing at L4-L5. The findings on a level by lev el basis are as follows: L1-2: Mild right foraminal disc protrusi on with mild right neuroforaminal narrowing. No spinal breana l stenosis. L2-3: Mild circumferential disc bulge wi th mild bilateral neuroforaminal narrowing and mild spinal canal stenosis. L3-4: There is interval improvement sinc e comparison MRI 05/20/2013 of endplate signal changes of the inferior endplate of L3 and superior endplate of L4 which are contrast-enhanc ing and T2 bright. Circumferential asymmetric disc bulge wi th protrusion into the left neural foramen causing moderate to sever e left neural foraminal narrowing, moderate right neural foramin al narrowing, and mild spinal canal stenosis. Epidural and paraspinous enhancement as well as enhancement and edema in and around the left facet joint. L4-5: Schmorl's node of the inferior end plate of L4. Mild circumferential disc bulge with moderate bilateral neural foraminal narrowing. No significant spinal canal s tenosis. Epidural and right subarticular space enhancement. L5-S1 Bilateral pars intra-articularis d efects with no spondylolisthesis. Mild bilateral neural foraminal narrowing or spinal canal stenosis. IMPRESSION Impression: 1. No significant change in degenerative changes including moderate to left L3-L4 neural foraminal narrowing an d multilevel mild spinal canal stenosis since comparison MRI 05/20/2013. Specifically there is no evidence of increased L5 nerve root comp ression. 2. Interval improvement in likely degene rative endplate changes at L3-L4 since comparison MRI 05/20/2013 3. 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 4. Postoperative changes of L3-L5 richie ctomy I have personally reviewed the examinati on and initial interpretation and I agree with the findings. WAYNE FONSECA MD Sid Lilly MD IMG MRI ORDERABLES documented in this encounter Visit Diagnoses Diagnosis Back pain Backache, unspecified Lumbar stenosis with neurogenic claudica tion Spinal stenosis, lumbar region, with urvashi rogenic claudication Lumbar radicular pain Thoracic or lumbosacral neuritis or radi culitis, unspecified documented in this encounter Administered Medications Inactive Administered Medications - up to 3 most recent administrations Medication Order MAR Action Action Date Dose Rate Site gadobutrol (GADAVIST) Given 01/27/2014 11:35 AM EMERGENCY MANAGEMENT DIRECTOR 7.5 mLs Left Arm injection 7.5 mL 7.5 mL, Intravenous, ONCE, On Sat01/27/14 at 1115, For 1 dose documented in this encounter Care Teams Journeyman Patternmaker Relationship Specialty Start Date End Date Edison Tam MD PCP - General Family Practice 09/21/11 07/22/[address] [address] documented as of this encounter
--- OUTSIDE RECORDS SUMMARY | 2021-10-24 12:01 | XMS_ITS | Encounter Summary ---
:1955 Author Organization [place] Address [address] [place] [address] Care Team Providers Name Role Phone Edison Tam MD Primary Care Provider Reason for Visit Reason Onset Date Comments Refill Request 05/10/2014 Encounter Details Date Type Department Care Team Description 05/10/2014 Refill Medicine GI - 1E Charan Salazar MD Refill Request [address] [address] 1st Floor, Clinic [address] [place] [address] [place] [phone] Social History Tobacco Use Types Packs/Day Years Used Date Former Smoker 1 18 Smokeless Tobacco: Former User Q uit: 09/20/1991 Alcohol Use Standard Drinks/Week Comments No 0 (1 standard drink = 0.6 oz pure alcoho l) Sex Assigned at Date Recorded Not on file documented as of this encounter Plan of Treatment Not on filedocumented as of this encounter Visit Diagnoses Diagnosis Preoperative examination - Primary Preoperative examination, unspecified Crohn's disease of both small and large intestine with complication (H) 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
--- OUTSIDE RECORDS SUMMARY | 2021-10-24 12:01 | XMS_ITS | Encounter Summary ---
:1955 Author Organization [place] Address [address] [place] [address] Care Team Providers Name Role Phone Edison Tam MD Primary Care Provider Encounter Details Date Type Department Care Team Description 10/14/2013 Rad[facility] Appointment [facility] Renal mass, right [facility] 1st Floor, Clinic 1D [place], [place] [address] Social History Tobacco Use Types [...] Name Priority Date/Time Associated Diagnosis Comme nts US RENAL COMPLETE Routine 10/14/2013 9:15 AM Renal mass, right Results for this CDT procedure are i n the results section. 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 This lesion appears unchanged since 11/06/2011. No ne w renal masses. I have personally reviewed the examinati on and initial interpretation and I agree with the findings. CAMILO DILL MD Narrative 10/14/2013 9:26 AM CDT Exam: Renal ultrasound, 10/14/2013 9:15 AM Comparison: Ultrasound 04/14/2012 and 10/28 History: Followup right renal lesion Findings: The right kidney measures 9.2 x 4.6 x 4. 3 cm. Again seen is echogenic lesion in the superior pole of the right kidney measuring 0.9 x 0.8 x 1.3 cm. There is no internal flow within this lesion, posterior shadowing, or increased through transmis ailin. The lesion is unchanged in size since 10/29/2011. No new right re nal lesions. There is no hydronephrosis or hydroureter. There is no extrarenal fluid collection. The left kidney measures 9.0 x 4.9 x 4.2 cm. The kidney demonstrates normal echotexture without evidence of c ystic lesion or mass. There is no hydronephrosis or hydroureter. There is no extrarenal fluid collection. The bladder is partially distended ??and unremarkable in appearance. Procedure Note Camilo Dill MD - 10/14/2013F ormatting of this note might be different from the original. Exam: Renal ultrasound, 10/14/2013 9:15 AM Comparison: Ultrasound 04/14/2012 and 10/28 History: Followup right renal lesion Findings: The right kidney measures 9.2 x 4.6 x 4. 3 cm. Again seen is echogenic lesion in the superior pole of the right kidney measuring 0.9 x 0.8 x 1.3 cm. There is no internal flow within this lesion, posterior shadowing, or increased through transmis ailin. The lesion is unchanged in size since 10/29/2011. No new right re nal lesions. There is no hydronephrosis or hydroureter. There is no extrarenal fluid collection. The left kidney measures 9.0 x 4.9 x 4.2 cm. The kidney demonstrates normal echotexture without evidence of c ystic lesion or mass. There is no hydronephrosis or hydroureter. There is no extrarenal fluid collection. The bladder is partially distended and u nremarkable in appearance. 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 This lesion appears unchanged since 11/06/2011. No ne w renal masses. I have personally reviewed the examinati on and initial interpretation and I agree with the findings. CAMILO DILL MD Edison Tam MD IMG US ORDERABLES documented in this encounter Visit Diagnoses Diagnosis Renal mass, right Unspecified disorder of kidney and urete r documented in this encounter Care Teams Spindle Plumber Relationship Specialty Start Date End Date Edison Tam MD PCP - General Family Practice 09/21/11 07/22/14 909 [facility] 4 [place] [address] documented as of this encounter
--- OUTSIDE RECORDS SUMMARY | 2021-10-24 12:01 | XMS_ITS | Encounter Summary ---
:1955 Author Organization [place] Address [address] [place] [address] Care Team Providers Name Role Phone Edison Tam MD Primary Care Provider Reason for Visit Reason Onset Date Comments Previsit 10/26/2013 Encounter Details Date Type Department Care Team Description 10/26/2013 Telephone [facility] And Chaarn guadarrama MD Previsit FOR PROSTATE AND UROLOGIC [address] [facility] [place], [place] [phone] [place] [address] 4TH FLOOR, [address] 420 [facility], [facility] [address] [place], [place] [phone] Social History Tobacco Use Types Packs/Day Years Used Date Former Smoker 1 18 Smokeless Tobacco: Former User Q uit: 09/20/1991 Alcohol Use Standard Drinks/Week Comments No 0 (1 standard drink = 0.6 oz pure alcoho l) Sex Assigned at Date Recorded Not on file documented as of this encounter Miscellaneous Notes Telephone Encounter - Sharri Ordoñez LPN - 10/26/2013 2:14 PM CDT Patient coming in for renal mass. Last seen by Dr. Brian in 2011. Patient chart reviewed, no need for call, all records available and ready for appointment. documented in this encounter Plan of Treatment Not on filedocumented as of this encounter Visit Diagnoses Not on filedocumented in this encounter Care Teams Senior Functional Analyst Relationship Specialty Start Date End Date Edison Tam MD PCP - General Family Practice 09/21/11 07/22/[address] [facility] 4 [place] [address] documented as of this encounter
--- OUTSIDE RECORDS SUMMARY | 2021-10-24 12:01 | XMS_ITS | Encounter Summary ---
:1955 Author Organization [place] Address [address] [place] [address] Care Team Providers Name Role Phone Edison Tam MD Primary Care Provider Encounter Details Date Type Department Care Team Description 01/14/2014 Radiant Appointment [facility] XRAY Sid Lilly Back pain RACHNA DONA Bunch MD BUILDING [address] [place] [address] R2 1ST FLOOR, CLINIC [address] [phone] (Wo rk) [address] [phone] Social History Tobacco Use Types Packs/Day Years [...] Priority Date/Time Associated Diagnosis Comme nts XR LUMBAR SPINE 2/3 Routine 01/14/2014 5:35 PM Back pain Re sults for this VIEWS SALES SERVICE ASSISTANT procedure are i n the results section. documented in this encounter Results XR Lumbar Spine 2-3 Views* (01/14/2014 5:35 PM SALES SERVICE ASSISTANT) Anatomical Region Laterality Modality T-spine, L-spine, Abdomen/Pelvis Compute d Radiography Specimen (Source) Anatomical Location Collection Method / Collectio n Time Received Time / Laterality Volume Impressions 01/15/2014 12:18 AM SALES SERVICE ASSISTANT IMPRESSION: 1. No acute bone abnormality of the lumb ar spine. No unstable listhesis is seen. KRYSTINA CANCINO MD Narrative 01/15/2014 12:18 AM SALES SERVICE ASSISTANT EXAMINATION: Lumbar spine flexion/extension DATE: 01/14/2014 HISTORY: [...] listhesis is seen. KRYSTINA CANCINO MD Sid Lilly MD IMG DIAGNOSTIC IMAGING JERONIMO HAY documented in this encounter Visit Diagnoses Diagnosis Back pain Backache, unspecified documented in this encounter Care Teams Agency Development Manager Relationship Specialty Start Date End Date Edison Tam MD PCP - General Family Practice 09/21/11 07/22/14 909 [facility] 4 [place] [address] documented as of this encounter
--- OUTSIDE RECORDS SUMMARY | 2021-10-24 12:01 | XMS_ITS | Encounter Summary ---
:1955 Author Organization [facility] Address [address] [place] [address] Care Team Providers Name Role Phone Edison Tam MD Primary Care Provider Sheri Casey MD Unavailable Alphonso Billy MD Unavailable Reason for Visit Reason Onset Date Comments Pre Visit Planning - Done 08/26/2014 Fatigue, carbo n monoxide poisoning Encounter Details Date Type Department Care Team Description 08/26/2014 PRE VISIT [facility] Alphonso Billy Pre Visit Planning - Physicians [facility] MD Charan Done (Fatigue, carbon Butler Wangensteen [address] monoxide poisoning) [place], [place] 4th Floor, Clinic [phone] [place] [address] [place] [address] [place] [address] Social History Tobacco Use Types [...] on filedocumented in this encounter Care Teams Business Support Relationship Specialty Start Date End Date Edison Tam MD PCP - General Family Practice 07/23/[address] [id number] Sheri Casey MD MD Pulmonary Disease 07/23/14 420 [facility] 276 [place], [place] [phone] Alphonso Billy MD MD Cardiology 08/12/14 12/26/17 420 [place], [place] [phone] documented as of this encounter
--- OUTSIDE RECORDS SUMMARY | 2021-10-24 12:01 | XMS_ITS | Encounter Summary ---
:1955 Author Organization [place] Address [address] [place] [address] Care Team Providers Name Role Phone Edison Tam MD Primary Care Provider Reason for Visit Reason Onset Date Comments Refill Request 06/18/2014 Encounter Details Date Type Department Care Team Description 06/18/2014 Refill Medicine GI - 1E Charan Salazar MD Refill Request [address] [address] 1st Floor, Clinic [address] [place] [address] [place] [phone] Social History Tobacco Use Types Packs/Day [...] Other B-complex deficiencies documented in this encounter Care Teams Sugar Trucker Relationship Specialty Start Date End Date Edison Tam MD PCP - General Family Practice 09/21/11 07/22/[address] [id number] documented as of this encounter
--- OUTSIDE RECORDS SUMMARY | 2021-10-24 12:01 | XMS_ITS | Encounter Summary ---
:1955 Author Organization [facility] Address [address] [place] [address] Care Team Providers Name Role Phone Edison Tam MD Primary Care Provider Encounter Details Date Type Department Care Team Description 01/25/2014 Radiant Appointment [facility] in [facility], Center forearm, right [facility] 1st Floor, Clinic 1D [address] [place], [place] [address] Social History Tobacco Use Types [...] Priority Date/Time Associated Diagnosis Comme nts XR WRIST RIGHT G/E Routine 01/25/2014 2:55 PM Pain in joint, R esults for this 3 VIEWS DREDGE LEVER OPERATOR forearm, right procedure are in the results section. documented in this encounter Results XR Wrist Right G/E 3 Views (01/25/2014 2:55 PM DREDGE LEVER OPERATOR) Anatomical Region Laterality Modality Right Wrist Right Computed Radiography Specimen (Source) Anatomical Location Collection Method / Collectio n Time Received Time / Laterality Volume Impressions 01/25/2014 6:07 PM DREDGE LEVER OPERATOR Impression: Almost healed transverse fracture of the distal radius with stable alignment. 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 I have personally reviewed the examinati on and initial interpretation and I agree with the findings. SIOMARA LUNA MD Narrative 01/25/2014 6:07 PM DREDGE LEVER OPERATOR XR WRIST RT G/E 3 VW, 01/25/2014 [...] agree with the findings. SIOMARA LUNA MD Dari Escalante MD IMG DIAGNOSTIC IMAGING ORDER EB documented in this encounter Visit Diagnoses Diagnosis Pain in joint, forearm, right documented in this encounter Care Teams Desktop Support Technician Relationship Specialty Start Date End Date Edison Tam MD PCP - General Family Practice 09/21/11 07/22/14 909 [facility] 4 [place] [address] documented as of this encounter
--- OUTSIDE RECORDS SUMMARY | 2021-10-24 12:01 | XMS_ITS | Encounter Summary ---
:1955 Author Organization [place] Address [address] [place] [address] Care Team Providers Name Role Phone Edison Tam MD Primary Care Provider Reason for Visit Reason Onset Date Comments Refill Request 01/27/2014 ropinirole Encounter Details Date Type Department Care Team Description 01/27/2014 Refill [facility], Primary Edison Tam Refill Request Care Center MD Marcia (ropinirole) 3rd Floor, Clinic 3A [phone] [place] [address] [place] [address] Social History Tobacco Use Types [...] (RLS) documented in this encounter Care Teams Tank Cleaner Relationship Specialty Start Date End Date Edison Tam MD PCP - General Family Practice 09/21/11 07/22/[address] [address] documented as of this encounter
--- OUTSIDE RECORDS SUMMARY | 2021-10-24 12:02 | XMS_ITS | Encounter Summary ---
:1955 Author Organization [place] Address [address] [place] [address] Care Team Providers Name Role Phone Edison Tam MD Primary Care Provider Encounter Details Date Type Department Care Team Description 06/02/2013 Therapy Visit [facility] Cher Pantoja, Low back pain (Primary Dx); Orthopaedics Physical PT Sacro-iliac pain Therapy Center [address] [facility] [address] [place] [phone] [id number] Social History Tobacco Use Types Packs/Day Years Used Date Former Smoker 1 18 Smokeless Tobacco: Former User Q uit: 09/20/1991 Alcohol Use Standard Drinks/Week Comments No 0 (1 standard drink = 0.6 oz pure alcoho l) Sex Assigned at Date Recorded Not on file documented as of this encounter Progress Notes Cher Pantoja, PT - 06/02/2013 9:58 AM CDT Subjective: HPI Comments: Pt report L leg feels like it is going to sleep when doing her Alexandre Chi. Pt wakes 3-4x/night because of back pain. Maria E Coley is a 57 year old female with a lumbar condition. Condition occurred with: Insidious onset (gotten worse ). This is a chronic condition 05/28/13. Patient reports pain: SI joint right and SI joint left. Radiates to: Lower leg left. Pain is described as aching and sharp and is constant and reported as 2/10 and 8/10. Associated symptoms: Numbness. Pain is worse in the A.M.. Symptoms are exacerbated by walking, sitting, twisting, bending, lifting and standing and relieved by activity/movement and NSAID's (back stretches). Since onset symptoms are gradually worsening. General health as reported by patient is good. Objective: System Lumbar/SI Evaluation ROM: AROM Lumbar: Flexion: Fingertips to the toes Ext: 75% Side Bend: Left: 75% Right: 50% Rotation: Left: Right: Side [place]: Left: Right: Strength: bilateral hip adduction 3/5 with pain, Lumbar Myotomes: T12-L3 (Hip Flex): Left: 2+ L2-4 (Quads): Left: 5 L4 (Ankle DF): Left: 5 Neural Tension/Mobility: Left side: Slump positive. Left side:SLR negative. Right side: Slump or SLR negative. Lumbar Palpation: Tenderness present at Left: Piriformis Tenderness not present at Left: Quadratus Lumborum; Erector Spinae or Ischial Tuberosity Tenderness not present at Right: Quadratus Lumborum; Erector Spinae; Piriformis or Ischial Tuberosity SI joint/Sacrum: Sacral conclusion right: Sacral torsion General ROS Assessment/Plan: Patient is a 57 year old female with sacral complaints. Pt presents with pelvic instability and abnormal sacral mobility. Patient has the following significant findings with corresponding treatment plan. Diagnosis 1: 28 Chronic low back pain, Lumbar stenosis with neurogenic claudication, Lumbar radicular pain, Sacroiliac joint pain Pain - hot/cold therapy, manual therapy, splint/taping/bracing/orthotics, self management and education Decreased strength - therapeutic exercise and therapeutic activities Decreased function - therapeutic activities and home program Previous and current functional limitations: (See Goal Flow Sheet for this information) Short term and snf goals: (See Goal Flow Sheet for this information) Communication ability: Patient appears to be able to clearly communicate and understand verbal and written communication and follow directions correctly. Treatment Explanation - The following has been discussed with the patient: RX ordered/plan of care Anticipated outcomes Possible risks and side effects This patient would benefit from PT intervention to resume normal activities. Rehab potential is good. Frequency: 1 X week, once daily Duration: for 8 weeks Discharge Plan: Achieve all LTG. Independent in home treatment program. Reach maximal therapeutic benefit. Please refer to the daily flowsheet for treatment today, total treatment time and time spent performing 1:1 timed codes. documented in this encounter Plan of Treatment Not on filedocumented as of this encounter Procedures Procedure Name Priority Date/Time Associated Diagnosis Comme [facility] THERAPEUTIC Routine 06/02/2013 12:25 PM Low back ashwini n EXERCISES CDT Sacro-iliac pain documented in this encounter Visit Diagnoses Diagnosis Low back pain - Primary Lumbago Sacro-iliac pain Disorders of sacrum documented in this encounter Care Teams Toxicologist Relationship Specialty Start Date End Date Edison Tam MD PCP - General Family Practice 09/21/11 07/22/14 909 [facility] 4 [place] [address] documented as of this encounter
--- OUTSIDE RECORDS SUMMARY | 2021-10-24 12:02 | XMS_ITS | Encounter Summary ---
:1955 Author Organization [place] Address [address] [place] [address] Care Team Providers Name Role Phone Edison Tam MD Primary Care Provider Encounter Details Date Type Department Care Team Description 08/28/2013 Telephone Diabetes and Endocri ne Laisha Moraes MD 6th Floor, Clinic 6A [address] [facility] [address] [place], [place] [phone] [place] [address] 6 [facility] [place] [phone] Social History Tobacco Use Types Packs/Day [...] osteoporosis - Primary documented in this encounter Care Teams Publicity Person Relationship Specialty Start Date End Date Edison Tam MD PCP - General Family Practice 09/21/11 07/22/14 909 [facility] 4 [place] [address] documented as of this encounter
--- OUTSIDE RECORDS SUMMARY | 2021-10-24 12:02 | XMS_ITS | Encounter Summary ---
:1955 Author Organization [place] Address [address] [place] [address] Care Team Providers Name Role Phone Edison Tam MD Primary Care Provider Reason for Visit Reason Comments Other Encounter Details Date Type Department Care Team Description 08/19/2013 Telephone Diabetes and Endocri ne Andi Miranda, 6th Floor, Clinic 6A RN [facility] [address] [place] [address] [phone] Social History Tobacco Use Types Packs/Day Years Used Date Former Smoker 1 18 Smokeless Tobacco: Former User Q uit: 09/20/1991 Alcohol Use Standard Drinks/Week Comments No 0 (1 standard drink = 0.6 oz pure alcoho l) Sex Assigned at Date Recorded Not on file documented as of this encounter Miscellaneous Notes Telephone Encounter - Andi Miranda RN - 08/19/2013 11:28 AM CDT Scheduled with Anita Petersno today at 1:30 and she will bring her BS log . Current prednisone dose Is7 mg daily Telephone Encounter - Andi Miranda RN - 08/19/2013 11:28 AM CDT Message copied by ANDI MIRANDA on SatAug 19, 2013 11:28 AM ------ Message from: KASH MORAES Created: SatAug 19, 2013 10:46 AM Regarding: RE: Increasing BS Contact: I think seeing Iva Peterson today is a great idea if that works for her ----- Message ----- From: Andi Miranda, RN Sent: 08/19/2013 10:21 AM To: Kash Moraes MD Subject: Increasing BS Maria E calls today and She has been checking her BS with numbers increasing. Fasting AM 110-145 AndEvenings 200's after eating But not clear on how long after. She mentions symptoms of diabetes without what exactly they are. Currently on 7 mg Prednisone daily . I Was Going ot call her Back for More info but Shanice wonders if you want Kristen to see her Who does have an opening today if that works forLaurie . She wanted to know if there was any lab work she could have done to test for the diabetes. ------ documented in this encounter Plan of Treatment Not on filedocumented as of this encounter Visit Diagnoses Not on filedocumented in this encounter Care Teams Acid Supervisor Relationship Specialty Start Date End Date Edison Tam MD PCP - General Family Practice 09/21/11 07/22/14 917 [facility] 4 [place] [address] documented as of this encounter
--- OUTSIDE RECORDS SUMMARY | 2021-10-24 12:02 | XMS_ITS | Encounter Summary ---
:1955 Author Organization [place] Address [address] [place] [address] Care Team Providers Name Role Phone Edison Tam MD Primary Care Provider Encounter Details Date Type Department Care Team Description 06/18/2013 Therapy Visit [facility] Ros [place]ley, Finger stiffness, left (Primary Dx); Orthopaedics Hand OT Mechanical problems with limbs; [facility] Pain in limb; [address] [place] [address] THERAPY CTR Other postprocedural status; STRE[address] [place] [address] Finger laceration, subsequent encounter [address] [place] [phone] Social History Tobacco Use Types Packs/Day Years Used Date Former Smoker 1 18 Smokeless Tobacco: Former User Q uit: 09/20/1991 Alcohol Use Standard Drinks/Week Comments No 0 (1 standard drink = 0.6 oz pure alcoho l) Sex Assigned at Date Recorded Not on file documented as of this encounter Progress Notes Ros Crowley, OT - 06/18/2013 7:20 AM CDT Hand Therapy Discharge Note Reporting Period: 04/30/2013 through 06/18/2013 Referring MD: Dr. Hathaway Return to MD: 07/16/2013 Procedure: Left index finger digital nerve repair with loupe magnification and suturing and NeuraGentube augmentation (2 mm x 1 cm). DOS: 04/16/2013 Post: 9w 0d Patient reports symptoms of pain, stiffness/loss of motion, weakness/loss of strength, edema and numbness of the left index finger which occurred due to lacerating artery and digital nerve. Since onsetsymptoms are Unchanged.?? Special tests:?? none.?? Previous treatment: surgical repair.?? General health as reported by patient is good.?? Pertinent medical history includes:osteoporosis, history of fractures, diabetes, fibromyalgia, thyroid problems, anemia, hepatitis, menopausal?? Medical allergies:none. Surgical history: orthopedic: index finger.?? Medication history: thyroid medication, pain medication, steroids, anti-depressants. 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 There is still some numbness/tinglingin the tip, but there is no longer pain. 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 - patient is able to play harp, bead Response to previous treatment: good Patient has noted adverse reaction to: None O: Pain Report: VAS(0-10) 04/30/13 05/06/13 05/15/13 05/28/13 06/18/13 At Rest: 3-4/10 4/10 1/10 0/10 0/10 With Use: 5-7/10 6-7/10 3/10 0-3/10 0/10 Location: L index finger, ulnar side of MCPJ, volar IF Description: N/A Frequency: Constant and intermittent Pain is worse: As the day progresses Pain is exacerbated by: Motion, even at rest pain happens Pain is relieved by: pain medication, rest Progression since onset: Staying the same ROM: Fingers Extension/Flexion, AROM(PROM) 04/30/13 Date: 201104/30/13 05/06/13 05/15/13 05/28/13 06/18/13 Right Side: Left Left Left Left Left AROM(PROM) 90 105 65 Index: MP PIP DIP NT/80 50 5/ 35/82 15/74 5/31 0/91 0/102 0/67 0/92 0/107 0/76 0/90 0/110 0/76 Cooling System Operator and Pinch Strength (pounds) 05/28 Date: 05/28 06/18 Right Side Left Left 53 Cooling System Operator # 1 # 2 # 3 Average 47 49 11 3 Point # 1 # 2 # 3 Average 11 12 14 Lateral # 1 # 2 # 3 Average 12 13 Finger Edema Circumference: (Measured in cm) 05/06/13 Date 05/06/13 05/15/13 05/28/13 06/18/13 Right IF Location: Left IF Left IF Left IF Left IF 5.5 P1 6.4 5.9 5.6 5.5 5.4 PIP 6.1 5.4 5.2 5.1 4.4 P2 4.8 4.8 4.6 4.5 Scar: Well healed, dense scar tissue present. Sensation: Patient is having return of sensation to ulnar side of indes finger - tingling with gentle touch to ulnar side of tip of finger - ongoing A: Response to therapy has been improvement to: ROM of Fingers: MP joint - Flex, PIP joint - Flex, DIP joint - Flex Strength: rope maker and pinch Edema: Circumferential finger edema has decreased Pain: frequency is less, intensity of pain is decreased, duration of pain is decreased and less tender over affected area Overall Assessment: Patient's symptoms are resolving. Patient would benefit from continued therapy to achieve rehab potential STG/LTG: See goal sheet for details and updates of remaining functional limitations. Frequency: 1 X week, once daily Duration: for 8 weeks P: Discharge to Home Exercise Home Program: A/AROM, tendon gliding of fingers Recommend patient get long handled sponge for bathing and jar laborer pullet farm that attaches to base of cabinet for one handed opening Edema management - instruction in coban wrapping, elevation, ice Scar management - scar massage, scar pad for night wear Desensitization with sensory stick Gentle rope maker and pinch strengthening with foam wedge Start working on more beading, harp playing to progress fine motor tasks Discharge Plan: Achieve all LTG. Independent in home treatment program. Reach maximal therapeutic benefit. Please see daily flow sheet for treatment and 1:1 time provided today. documented in this encounter Plan of Treatment Not on filedocumented as of this encounter Procedures Procedure Name Priority Date/Time Associated Diagnosis Comme nts [facility] MANUAL THER Routine 06/18/2013 1:14 PM Finger stiffn ess, left TECH,1+REGIONS,EA 15 CDT Pain in jackson b MIN Other postprocedural status Finger laceration, subsequent encounter [facility] THERAPEUTIC Routine 06/18/2013 1:14 PM Finger stiffn ess, left EXERCISES CDT Pain in limb Other postprocedural status Finger laceration, subsequent encounter documented in this encounter Visit Diagnoses Diagnosis Finger stiffness, left - Primary Mechanical problems with limbs Pain in limb Other postprocedural status(V45.89) Other postprocedural status Finger laceration, subsequent encounter documented in this encounter Care Teams Histopathologist Relationship Specialty Start Date End Date Edison Tam MD PCP - General Family Practice 09/21/11 07/22/14 909 [facility] 4 [place] [address] documented as of this encounter
--- OUTSIDE RECORDS SUMMARY | 2021-10-24 12:02 | XMS_ITS | Encounter Summary ---
:1955 Author Organization [place] Address [address] [place] [address] Care Team Providers Name Role Phone Edison Tam MD Primary Care Provider Reason for Visit Reason Comments Other Encounter Details Date Type Department Care Team Description 08/28/2013 Telephone Diabetes and Endocri ne Stevenson White RN 6th Floor, Clinic [place] [phone] Social History Tobacco Use Types Packs/Day Years Used Date Former Smoker 1 18 Smokeless Tobacco: Former User Q uit: 09/20/1991 Alcohol Use Standard Drinks/Week Comments No 0 (1 standard drink = 0.6 oz pure alcoho l) Sex Assigned at Date Recorded Not on file documented as of this encounter Miscellaneous Notes Telephone Encounter - Stevenson White RN - 08/28/2013 3:57 PM CDT Message copied by STEVENSON WHITE on SatAug 28, 2013 3:57 PM Pt contacted re: scheduling reclast, she may prefer to do labs the day before infusion, orders submitted ------ Message from: KASH MORAES Created: SatAug 27, 2013 8:44 AM Regarding: RE: orders/update Orders placed. The lab orders are on the therapy plan as usual -- I am not sure what you meant by prior Kash Moraes ----- Message ----- From: Stevenson White RN Sent: 08/14/2013 11:18 AM To: Kash Moraes MD Subject: orders/update Pt is ready to proceed with reclast so therapy plan needed. She would also like do labs prior. She states she has started monitoring bs and yesterday had 234 2 hrs after dinner. Fasting am [id number]. She will continue to monitor and try to maintain diet control but will call if BS remain elevated. She is scheduled to see you 09/07 to assess. ------ documented in this encounter Plan of Treatment Not on filedocumented as of this encounter Visit Diagnoses Not on filedocumented in this encounter Care Teams Inspector Balance Truing Relationship Specialty Start Date End Date Edison Tam MD PCP - General Family Practice 09/21/11 07/22/14 909 [facility] 4 [place] [address] documented as of this encounter
--- OUTSIDE RECORDS SUMMARY | 2021-10-24 12:02 | XMS_ITS | Encounter Summary ---
:1955 Author Organization [place] Address [address] [place] [address] Care Team Providers Name Role Phone Edison Tam MD Primary Care Provider Encounter Details Date Type Department Care Team Description 05/28/2013 Radiant Appointment [facility] Sid Lilly Back pain RACHNA DONA Bunch MD BUILDING [address] [place] [address] R2 1ST FLOOR, CLINIC [address] [phone] (Wo rk) [phone] Social History Tobacco Use Types Packs/Day Years [...] Comme nts XR LUMBAR SPINE 2/3 Routine 05/28/2013 1:15 PM Back pain Re sults for this VIEWS CDT procedure are i n the results section. documented in this encounter Results XR Lumbar Spine 2-3 Views* (05/28/2013 1:15 PM CDT) Anatomical Region Laterality Modality T-spine, L-spine, Abdomen/Pelvis Compute d Radiography Specimen (Source) Anatomical Location Collection Method / Collectio n Time Received Time / Laterality Volume Impressions 05/28/2013 1:19 PM CDT IMPRESSION: 1. Multilevel degenerative changes of th e lumbar spine, most significant at L4-5, though there is not extensive endplate remodeling. KRYSTINA CANCINO MD Narrative 05/28/2013 1:19 PM CDT EXAMINATION: Lumbar spine 2 views DATE: 05/28/2013 HISTORY: Backache FINDINGS: Frontal and lateral views of t lumbar spine are compared to 05/20/2013. 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 There is focal dextrocurvature, centered at the L3 vert ebral level. Severe disc space loss with lesser endplate remodeling is again noted at L4-5. There is slight retrolisthesis of L3 on L4, with moderate disc space loss at that level. No acute compression fractur e is identified. Procedure Note Krystina Cancino MD - 05/28/2013Forma tting of this note might be different from the original. EXAMINATION: Lumbar spine 2 views DATE: 05/28/2013 HISTORY: Backache FINDINGS: Frontal and lateral views of t he lumbar spine are compared to 05/20/2013. 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 There is focal dextrocurvature, centered at the L3 vert ebral level. Severe disc space loss with lesser endplate remodeling is again noted at L4-5. There is slight retrolisthesis of L3 on L4, with moderate disc space loss at that level. No acute compression fractur e is identified. IMPRESSION IMPRESSION: 1. Multilevel degenerative changes of th e lumbar spine, most significant at L4-5, though there is not extensive endplate remodeling. KRYSTINA CANCINO MD Sid Lilly MD [facility] JERONIMO HAY documented in this encounter Visit Diagnoses Diagnosis Back pain Backache, unspecified documented in this encounter Care Teams Ferruler Relationship Specialty Start Date End Date Edison Tam MD PCP - General Family Practice 09/21/11 07/22/14 909 [facility] 4 [place] [address] documented as of this encounter
--- OUTSIDE RECORDS SUMMARY | 2021-10-24 12:02 | XMS_ITS | Encounter Summary ---
:1955 Author Organization [place] Address [address] [place] [address] Care Team Providers Name Role Phone Edison Tam MD Primary Care Provider Encounter Details Date Type Department Care Team Description 08/11/2013 Therapy Visit [facility], Low back pain (Primary Dx); Physical Therapy Zach Adams PT Sacro-iliac pain [address] [place] [phone] Social History Tobacco Use Types Packs/Day Years Used Date Former Smoker 1 18 Smokeless Tobacco: Former User Q uit: 09/20/1991 Alcohol Use Standard Drinks/Week Comments No 0 (1 standard drink = 0.6 oz pure alcoho l) Sex Assigned at Date Recorded Not on file documented as of this encounter Miscellaneous Notes Addendum Note - Stevenson Lopez PT - 12/31/2013 6:05 PM CDT Addended by: STEVENSON LOPEZ on: 12/31/2013 06:05 PM Modules accepted: Orders documented in this encounter Plan of Treatment Not on filedocumented as of this encounter Procedures Procedure Name Priority Date/Time Associated Diagnosis Comme nts [facility] MANUAL THER Routine 12/31/2013 6:05 PM Low back pain TECH,1+REGIONS,EA 15 MIN CDT Sacro-iliac pain [facility] THERAPEUTIC Routine 12/31/2013 6:05 PM Low back pain EXERCISES CDT Sacro-iliac pain [facility] THERAPEUTIC Routine 08/11/2013 8:17 PM Low back pain ACTIVITIES CDT Sacro-iliac pain documented in this encounter Visit Diagnoses Diagnosis Low back pain - Primary Lumbago Sacro-iliac pain Disorders of sacrum documented in this encounter Care Teams Chassis Wirer Relationship Specialty Start Date End Date Edison Tam MD PCP - General Family Practice 09/21/11 07/22/[address] [place] [address] 4 [place] [address] documented as of this encounter
--- OUTSIDE RECORDS SUMMARY | 2021-10-24 12:02 | XMS_ITS | Encounter Summary ---
:1955 Author Organization [facility] Address [address] [place] [id number] Care Team Providers Name Role Phone Edison Tam MD Primary Care Provider Reason for Referral - Closed Specialty Diagnoses / Procedures Referred By Contact Refer red To Contact Diagnoses Inflammatory bowel disease (Crohn's disease) (H) Flu-like symptoms Edison Tam MD [address] [place] [address] [place] 4 [place], [place] [address] Referral ID Status Reason Start Date Expiration Date Visits Requ ested Visits Authorized [id number] Closed 08/31/2013 02/27/2014 1 1 Reason for Visit Reason Comments Recheck Medication Patient is here to follow up with medication Encounter Details Date Type Department Care Team Description 08/31/2013 Office Visit [facility] Primary Edison Tam (Primary Dx); Anthony Kennedy MD Connective tissue disorder (H); 3rd Floor, Clinic 3A [address] [facility] Inflammatory bowel disease ( Crohn's disease) (H); [facility] 4 Flu-like symptoms; Building [place], [place] Routine general medical exam ination at a health care facility [address] [place] [address] [place] [address] [facility] [address] [place], [place] (Work) [phone] Social History Tobacco Use Types Packs/Day [...] Sign Reading Time Taken Comments Blood Pressure 105/65 08/31/2013 3:56 PM CDT Pulse 74 08/31/2013 3:56 PM CDT Temperature - - Respiratory Rate 16 08/31/2013 3:56 PM CDT Oxygen Saturation - - Inhaled Oxygen Concentration - - Weight 56.4 kg (124 lb 4.8 oz) 08/31/2013 3:56 PM CDT Height - - Body Mass Index 23.49 08/19/2013 1:28 PM CDT documented in this encounter Patient Instructions Patient InstructionsDede Oquendo CMA - 08/31/2013 3:56 PM CDT Primary Care Center Medication Refill Request Information: * Please contact your pharmacy regarding ANY request for medication refills. [facility] Prescription Fax = [phone] * Please allow 3 business days for [...] encounter Progress Notes Edison Tam MD - 08/31/2013 4:04 PM CDT Maria E Coley has been to infectious disease MD for possible isadora overgrowth. She indicates he did not feel she had this condition. She took OTC isadora treatment on her own: Isadora support and felt somewhat better but she is convinced she has flu-like symptoms continuing. She has chronic fatigue to the point of exhaustion impacting her daily life. She is getting chronic rashes. She feels as if she is out in the sun, feels hot and her skin feels like a thousand bee stings. She applies sun screen ( uncertain if PABA free) and still feels this sensation. No definite fevers. She is on chronic steroids. She states she is here to bat some ideas around. She is requesting a Hepatitis series of testing in particular C test. She is also wondering about Lyme disease. She has chronic autoimmune conditions including parminder thyroiditis ( recently saw endocrinologistDr Moraes) and Crohn's disease with fistula ( needs to see GI, Dr Salazar). She feels her fistula is stable but occasionally notes sensation of carbonated urine. She has not yet scheduled her mammogram previously ordered. Patient Active Problem List Diagnosis ??? Parminder's thyroiditis ??? Crohn's disease of both small [...] drug therapy ??? History of corticosteroid therapy Current Outpatient Prescriptions Medication ??? Levothyroxine Sodium 50 MCG CAPS ??? propranolol (INDERAL) 20 MG tablet ??? Nutritional Supplements (ISADORA COMPLEX PO) ??? L-Lysine 500 MG TABS ??? rOPINIRole (REQUIP) 1 MG tablet ??? predniSONE (DELTASONE) 5 MG tablet ??? predniSONE (DELTASONE) 1 MG tablet ??? cyanocobalamin 1000 MCG/ML injection ??? ORDER FOR DME ??? venlafaxine (EFFEXOR-XR) 75 MG 24 hr capsule ??? Lactobacillus (ACIDOPHILUS PO) ??? cholecalciferol (VITAMIN D) 1000 UNIT tablet ??? acetaminophen (TYLENOL) 500 MG tablet ??? Potassium Chloride CR 8 MEQ CPCR ??? buPROPion (WELLBUTRIN SR) 150 MG 12 hr tablet ??? ALPRAZolam (XANAX) 0.5 MG tablet ??? calcium carbonate (TUMS) 500 MG chewable tablet ??? multivitamin (THERA-PLUS) LIQD ??? Carboxymethylcellulose [...] Malignant neoplasm hand skin cancer (left) ??? Parminder's disease BP 105/65 Pulse 74 Resp 16 Wt 56.382 kg (124 lb 4.8 oz) BMI 23.5 kg/m2 ? No Constitutional: Oriented to person, place, and time. Vital signs are noted. Appears chronically ill but improved. Non-toxic appearance. No distress. HENT: Head: Normocephalic and atraumatic. Mouth/Throat: Oropharynx is clear and moist. No oropharyngeal exudate. Tongue with slighty brown coat from coffee. No white patches on buccal mucosa. Moist. Eyes: Conjunctivae and EOM are normal. Pupils [...] breath sounds normal. No respiratory distress. Abdominal: Well healed scars, non tender.Soft. Bowel sounds are normal. No distension and no mass. Musculoskeletal: Chronic scaring right wrist. Lymphadenopathy: No cervical adenopathy. Neurological: Alert and oriented to person, place, and time. Normal strength.Skin: Skin is warm and dry except toes are josué, chronic thin skin. Psychiatric: Normal mood, affect concerned about her health.Interesting thoughts related to condition. Results for orders placed in visit on 08/31/13 COMPREHENSIVE METABOLIC PANEL Result Value Range Sodium 140 133 - 144 mmol/L Potassium 4.2 3.4 - 5.3 mmol/L Chloride 105 94 - 109 mmol/L Carbon Dioxide 24 20 - 32 mmol/L Anion Gap 12 6 - 17 mmol/L Glucose 81 60 - 99 mg/dL Urea Nitrogen 15 7 - 30 mg/dL Creatinine 0.84 0.52 - 1.04 mg/dL GFR Estimate 70 >60 mL/min/1.7m2 GFR Estimate If Black 84 >60 mL/min/1.7m2 Calcium 9.1 8.5 - 10.4 mg/dL Bilirubin Total 0.2 0.2 - 1.3 mg/dL Albumin 4.3 3.3 - 4.9 g/dL Protein Total 7.2 6.8 - 8.8 g/dL Alkaline Phosphatase 86 40 - 150 U/L ALT 29 0 - 50 U/L AST 34 0 - 45 U/L CBC WITH PLATELETS DIFFERENTIAL Result Value Range WBC 6.6 4.0 - 11.0 10e9/L RBC Count 4.86 3.8 - 5.2 10e12/L Hemoglobin 14.6 11.7 - 15.7 g/dL Hematocrit 44.4 35.0 - 47.0 % MCV 91 78 - 100 fl MCH 30.0 26.5 - 33.0 pg MCHC 32.9 31.5 - 36.5 g/dL RDW 12.5 10.0 - 15.0 % Platelet Count 232 150 - 450 10e9/L Diff Method Automated Method % Neutrophils 70.1 % Lymphocytes 18.3 % Monocytes 10.1 % Eosinophils 0.8 % Basophils 0.5 % Immature Granulocytes 0.2 Absolute Neutrophil 4.6 1.6 - 8.3 10e9/L Absolute Lymphocytes 1.2 0.8 - 5.3 10e9/L Absolute Monoctyes 0.7 0.0 - 1.3 10e9/L Absolute Eosinophils 0.1 0.0 - 0.7 10e9/L Absolute Basophils 0.0 0.0 - 0.2 10e9/L Abs Immature Granulocytes 0.0 0 - 0.4 10e9/L CRP INFLAMMATION Result Value Range CRP Inflammation <5.0 0.0 - 8.0 mg/L IRON AND IRON BINDING CAPACITY Result Value Range Iron 98 35 - 180 ug/dL Iron Binding Cap 329 240 - 430 ug/dL Iron Saturation Index 30 15 - 46 % HEPATITIS C ANTIBODY Result Value Range Hepatitis C Antibody Negative NEG ROUTINE UA WITH MICROSCOPIC REFLEX TO CULTURE Result Value Range Color Urine Yellow Appearance Urine Clear Glucose Urine Negative NEG mg/dL Bilirubin Urine Negative NEG Ketones Urine Negative NEG mg/dL Specific [place] Urine 1.015 1.003 - 1.035 Blood Urine Negative NEG pH Urine 5.0 5.0 - 7.0 pH Protein Albumin Urine Negative NEG mg/dL Urobilinogen mg/dL Normal 0.0 - 2.0 mg/dL Nitrite Urine Negative NEG Leukocyte Esterase Urine Small (*) NEG Source Midstream Urine WBC Urine 7 (*) 0 - 2 /HPF RBC Urine 3 (*) 0 - 2 /HPF Mucous Urine Present (*) NEG /LPF TSH WITH FREE T4 REFLEX Result Value Range TSH 0.65 0.4 - 5.0 mU/L Maria E who appears healthier than in the past, was seen today for fatigue and flu-like symptoms. Sheis worried about a viral or fungal infection. There are no clinical signs of fungal infection noted today. I reviewed her chart with her in that we have previously checked Hepatitis A&B , not immune and will check for Hep C due to new recommendation as she fits in the age range and previously had a history of snorting cocaine, no current drug use. She is negative for Hep C. Results came back after she left. I discussed need for Hep A/B, TwinRix series given today #1, #2 in one month and #3 in 6 months through nurse visits. She will follow-up with GI for Crohn's. Reassurance. She will get mammogram previously ordered. Diagnoses and associated orders for this visit: Fatigue - Comprehensive metabolic panel - Routine UA with micro reflex to culture - TSH with free T4 reflex Connective tissue disorder - Comprehensive metabolic panel Inflammatory bowel disease (Crohn's disease) - Comprehensive metabolic panel - GASTROENTEROLOGY ADULT REFERRAL +/- PROCEDURE Flu-like symptoms - CBC with platelets differential - CRP inflammation - Iron and iron binding capacity - Lyme IgG and IgM screen - Hepatitis C antibody - Routine UA with micro reflex to culture - GASTROENTEROLOGY ADULT REFERRAL +/- PROCEDURE Routine general medical examination at a health care facility - TWINRIX (HEPA/HERB Vaccine) ADULT IM Try PABA free sunscreen. All questions were addressed and voiced understanding and agreement with the above. Edison Tam documented in this encounter Nursing Notes Suha Clarke LPN - 08/31/2013 4:54 PM CDT TWINRIX shot given in left deltoid without problems. Patient tolerated shot well.Suha Clarke LPN 4:54 PM on 08/31/2013 Dede Oquendo CMA - 08/31/2013 3:56 PM CDT Chief Complaint Patient presents with ??? Recheck Medication Patient is here to follow up with medication Dede Oquendo CMA 3:56 PM on 08/31/2013. documented in this encounter Plan of Treatment Scheduled Referrals Name Type Priority Associated Diagnoses Order S [facility] GASTROENTEROLOGY ADULT Referral Routine Inflammatory bowel Ordered: REFERRAL +/- PROCEDURE disease (Crohn's 0 08/31/2013 disease) (H) Flu-like symptoms documented as of this encounter Procedures Procedure Name Priority Date/Time Associated Comments Diagnosis CBC WITH PLATELETS & Routine 08/31/2013 5:07 PM Flu-like sympt oms Results for this DIFFERENTIAL CDT procedure are i n the results section. TSH WITH FREE T4 Routine 08/31/2013 5:07 PM Fatigue Resul ts for this REFLEX CDT procedure are i n the results section. LYME IGG AND IGM Routine 08/31/2013 5:07 PM Flu-like symptoms Results for this SCREEN CDT procedure are i n the results section. LYME CONF IGG AND IGM Routine 08/31/2013 5:07 PM Fatigue Results for this BY IMMUNOBLOT CDT procedure are in the results section. IRON AND IRON BINDING Routine 08/31/2013 5:07 PM Flu-like symp toms Results for this CAPACITY CDT procedure are i n the results section. HEPATITIS C ANTIBODY Routine 08/31/2013 5:07 PM Flu-like sympt oms Results for this CDT procedure are i n the results section. CRP INFLAMMATION Routine 08/31/2013 5:07 PM Flu-like symptoms Results for this CDT procedure are i n the results section. COMPREHENSIVE Routine 08/31/2013 5:07 PM Fatigue Results for this METABOLIC PANEL CDT Connective tissue procedu re are in disorder (H) the results Inflammatory bowel section. disease (Crohn's disease) (H) ROUTINE UA WITH Routine 08/31/2013 4:55 PM Fatigue Results for this MICROSCOPIC REFLEX TO CDT Flu-like symptoms p rocedure are in CULTURE the results section. documented in this encounter Results Lyme conf IgG and IgM by Western blot (08/31/2013 5:07 PM CDT) Component Value Ref Test Analysis Performed At [facility] Range Method Time Signature Lyme Confirm Negative [facility] IgG by Reference range: Negative [facility] Immunoblot (Note) CAMPUS LABS Band(s) present: 41 kDa (Insufficient number of bands for positive result) INTERPRETIVE INFORMATION: Borrelia Burgdorferi Ab, IgG Western Blot For this assay, a positive result is reported when any 5 or more of the following 10 bands are present: 18, 23, 28, 30, 39, 41, 45, 58, 66, or 93 kDa. ??All other banding patterns are reported as negative. Lyme Confirm Negative [facility] IgM by Reference range: Negative [facility] Immunoblot (Note) CAMPUS LABS Band(s) present: 23 kDa (Insufficient number of bands for positive result) INTERPRETIVE INFORMATION: Borrelia Burgdorferi Antibody, IgM Western Blot For this assay, a positive result is reported when any 2 or more of the following bands are present: 23, 39, or 41 kDa. All other banding patterns are reported as negative. Performed by [employer], [address] [place] [id number] [email or web address], Grant Akins MD, Lab. Director Specimen Anatomical Collection Method Collection Time Receive d Time (Source) Location / / Volume Laterality 08/31/2013 5:07 PM 4 5:08 CDT PM CDT Edison Tam MD LAB - BLOOD ORDERABLES Performing Organization Address City/State/ZIP Code Phon e Number [facility] [address] [place], [place] [id number] [place] [address] LABS TSH with free T4 reflex (08/31/2013 5:07 PM CDT) P athologist Signature TSH 0.65 0.4 - 5.0 [facility] mU/L [place] LABS Specimen Anatomical Collection Method Collection Time Receive d Time (Source) Location / / Volume Laterality Blood specimen 08/31/2013 5:07 PM 014 5:08 (specimen) CDT PM CDT Edison Tam MD LAB - BLOOD ORDERABLES Performing Organization Address City/[facility]/ZIP Code Phon e Number [facility] [address] LABS Hepatitis C antibody (08/31/2013 5:07 PM CDT) [facility] gist Method Time Signature Hepatitis C Negative NEG [facility] Antibody MICROBIOLOGY Specimen Anatomical Collection Method Collection Time Receive d Time (Source) Location / / Volume Laterality Blood specimen 08/31/2013 5:07 PM 014 5:08 (specimen) CDT PM CDT Edison Tam MD LAB - BLOOD ORDERABLES Performing Organization Address City/[facility]/ZIP Code Phon e Number [address] MICROBIOLOGY (ABNORMAL) Lyme IgG and IgM screen (08/31/2013 5:07 PM CDT) Component Value Ref Test Analysis Performed At [facility] Range Method Time Signature Specimen Serum [facility] LABS Lyme Screen IgG Equivocal NEG [facility] and IgM Test value: >or= 0.75 to <1 .00 Interpretation: Equivocal. Specimen submitted to MICROBIOLOGY [place] ([facility]) for IgG and IgM Western Blot assays because of equivocal result. (A) Specimen Anatomical Collection Method Collection Time Receive d Time (Source) Location / / Volume Laterality Blood specimen 08/31/2013 5:07 PM 014 5:08 (specimen) CDT PM CDT Edison Tam MD LAB - BLOOD ORDERABLES Performing Organization Address City/State/ZIP Code Phon e Number [facility] [address] LABS [facility] MICROBIOLOGY Iron and iron binding capacity (08/31/2013 5:07 PM CDT) P athologist Signature Iron 98 35 - 180 [facility] ug/dL [place] LABS Iron Binding 329 240 - 430 [facility] Cap ug/dL CAMPUS LABS Iron Saturation 30 15 - 46 % [facility] Y Index CAMPUS LABS Specimen Anatomical Collection Method Collection Time Receive d Time (Source) Location / / Volume Laterality Blood specimen 08/31/2013 5:07 PM 014 5:08 (specimen) CDT PM CDT Edison Tam MD LAB - BLOOD ORDERABLES Performing Organization Address City/[facility]/ZIP Code Phon e Number [facility] [address] LABS CRP inflammation (08/31/2013 5:07 PM CDT) Analysis Performed At Patho logist Time Signature CRP Inflammation <5.0 0.0 - 8.0 [facility] mg/L [facility] LABS Specimen Anatomical Collection Method Collection Time Receive d Time (Source) Location / / Volume Laterality Blood specimen 08/31/2013 5:07 PM 014 5:08 (specimen) CDT PM CDT Edison Tam MD LAB - BLOOD ORDERABLES Performing Organization Address City/State/ZIP Code Phon e Number [facility] [address] LABS CBC with platelets differential (08/31/2013 5:07 PM CDT) Patholo gist Method Time Signature WBC 6.6 4.0 - [facility] 11.0 [place] 10e9/L [place] LABS RBC Count 4.86 3.8 - 5.2 [facility] 10e12/L [facility] LABS Hemoglobin 14.6 11.7 - [facility] 15.7 g/dL [facility] LABS Hematocrit 44.4 35.0 - [facility] 47.0 % [facility] LABS MCV 91 78 - 100 [facility] fl [facility] LABS MCH 30.0 26.5 - [facility] 33.0 pg [facility] LABS MCHC 32.9 31.5 - [facility] 36.5 g/dL [facility] LABS RDW 12.5 10.0 - [facility] 15.0 % [facility] Platelet Count 232 150 - 450 [facility] 10e9/L [facility] LABS Diff Method Automated [facility] Method [facility] LABS % Neutrophils 70.1 % [facility] LAB[facility] % Lymphocytes 18.3 % [facility] % Monocytes 10.1 % [facility] % Eosinophils 0.8 % [facility] % Basophils 0.5 % [facility] % Immature 0.2 % [facility] Granulocytes [facility] LABS Absolute 4.6 1.6 - 8.3 [facility] Neutrophil 10e9/L [facility] LABS Absolute 1.2 0.8 - 5.3 [facility] Lymphocytes 10e9/L [facility] LABS Absolute 0.7 0.0 - 1.3 [facility] Monocytes 10e9/L [facility] LABS Absolute 0.1 0.0 - 0.7 [facility] Eosinophils 10e9/L [facility] LABS Absolute 0.0 0.0 - 0.2 [facility] Basophils 10e9/L [facility] LABS Abs Immature 0.0 0 - 0.4 [facility] Granulocytes 10e9/L [facility] LABS Specimen Anatomical Collection Method Collection Time Receive d Time (Source) Location / / Volume Laterality Blood specimen 08/31/2013 5:07 PM 014 5:08 (specimen) CDT PM CDT Edison Tam MD LAB - BLOOD ORDERABLES Performing Organization Address City/State/ZIP Code Phon e Number [id number] [place] [address] LABS Comprehensive metabolic panel (08/31/2013 5:07 PM CDT) P athologist Signature Sodium 140 133 - 144 [facility] mmol/L [facility] LABS Potassium 4.2 3.4 - 5.3 [facility] mmol/L [facility] LABS Chloride 105 94 - 109 [facility] mmol/L [facility] LABS Carbon Dioxide 24 20 - 32 [facility] mmol/L [facility] LABS Anion Gap 12 6 - 17 [facility] mmol/L [facility] LABS Glucose 81 60 - 99 [facility] mg/dL [facility] LABS Urea Nitrogen 15 7 - 30 [facility] mg/dL [facility] LABS Creatinine 0.84 0.52 - [facility] 1.04 mg/dL [facility] LABS GFR Estimate 70 >60 [facility] mL/min/1.[address] LABS GFR Estimate If 84 >60 [facility] Black mL/min/1.[address] LABS Calcium 9.1 8.5 - 10.4 [facility] mg/dL [facility] Bilirubin Total 0.2 0.2 - 1.3 [facility] mg/dL [facility] Albumin 4.3 3.3 - 4.9 [facility] g/dL [facility]S Protein Total 7.2 6.8 - 8.8 [facility] g/dL [facility] Alkaline 86 40 - 150 [facility] Phosphatase U/L [facility] [place] [facility] ALT 29 0 - 50 U/L [facility] AST 34 0 - 45 U/L [facility] Specimen Anatomical Collection Method Collection Time Receive d Time (Source) Location / / Volume Laterality Blood specimen 08/31/2013 5:07 PM 014 5:08 (specimen) CDT PM CDT Edison Tam MD LAB - BLOOD ORDERABLES Performing Organization Address City/State/ZIP Code Phon e Number [facility] [address] [place] [address] [facility] LABS (ABNORMAL) Routine UA with micro reflex to culture (08/31/2013 4:55 PM CDT) [facility] gist Method Time Signature Color Urine Yellow [facility] LABS Appearance Urine Clear [facility] LABS Glucose Urine Negative NEG mg/dL [facility] [place] [facility] Bilirubin Urine Negative NEG [facility] LABS Ketones Urine Negative NEG mg/dL [facility] LABS Specific [place] 1.015 1.003 - [facility] Urine 1.035 [facility] [place] Blood Urine Negative NEG [facility] LABS pH Urine 5.0 5.0 - 7.0 [facility] pH [facility]S Protein Albumin Negative NEG mg/dL [facility] Urine [facility] Urobilinogen Normal 0.0 - 2.0 [facility] mg/dL mg/dL [facility] [place] Nitrite Urine Negative NEG [facility] [place] [facility] Leukocyte Small (A) NEG [facility] Esterase Urine [facility] Source Midstream [facility] Urine [facility] LABS WBC Urine 7 (H) 0 - 2 [facility] /HPF [facility] RBC Urine 3 (H) 0 - 2 [facility] /HPF [facility] Mucous Urine Present (A) NEG /LPF [facility] LABS Specimen Anatomical Collection Method Collection Time Receive d Time (Source) Location / / Volume Laterality Urine specimen 08/31/2013 4:55 PM 014 4:57 (specimen) CDT PM CDT Edison Tam MD LAB - URINE ORDERABLES Performing Organization Address City/State/ZIP Code Phon e Number [address] [address] [facility] LABS documented in this encounter Visit Diagnoses Diagnosis Fatigue - Primary Other malaise and fatigue Connective tissue disorder (H) Unspecified diffuse connective tissue di sease Inflammatory bowel disease (Crohn's dise ase) (H) Regional enteritis of unspecified site Flu-like symptoms Influenza with other respiratory manifes tations Routine general medical examination at a health care facility documented in this encounter Care Teams Medical Staff Director Relationship Specialty Start Date End Date Edison Tam MD PCP - General Family Practice 09/21/11 07/22/[address] [address] documented as of this encounter
--- OUTSIDE RECORDS SUMMARY | 2021-10-24 12:02 | XMS_ITS | Encounter Summary ---
:1955 Author Organization [facility] Address [address] [place] [id number] Care Team Providers Name Role Phone Edison Tam MD Primary Care Provider Encounter Details Date Type Department Care Team Description 05/28/2013 Therapy Visit [facility] Ros Crowley, Finger stiffness, left (Primary Dx); Orthopaedics Hand OT Mechanical problems with limbs; [facility] Pain in limb; [address] [place] [address] THERAPY CTR Other postprocedural status; STRE[address] [place] [address] Finger laceration, subsequent encounter [address] [place] [id number] [phone] Social History Tobacco Use Types Packs/Day Years Used Date Former Smoker 1 18 Smokeless Tobacco: Former User Q uit: 09/20/1991 Alcohol Use Standard Drinks/Week Comments No 0 (1 standard drink = 0.6 oz pure alcoho l) Sex Assigned at Date Recorded Not on file documented as of this encounter Progress Notes Ros Crowley, OT - 05/28/2013 7:59 AM CDT Hand Therapy Soap Note Current Date: 05/28/2013 Referring MD: Dr. Hathaway Return to MD: 07/16/2013 Procedure: Left index finger digital nerve repair with loupe magnification and suturing and NeuraGentube augmentation (2 mm x 1 cm). 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 Functional changes noted by patient: I can clip my nails, play the harp more, type. Occasionally dropping things due to reduced feeling on tip of finger Response to previous treatment: good Patient has noted adverse reaction to: None O: Pain Report: VAS(0-10) 04/30/13 05/06/13 05/15/13 05/28/13 At Rest: 3-4/10 4/10 1/10 0/10 With Use: 5-7/10 6-7/10 3/10 0-3/10 Location: L index finger, ulnar side of MCPJ, volar IF Description: Bee sting on the tip of the finger Frequency: Constant and intermittent Pain is worse: As the day progresses Pain is exacerbated by: Motion, even at rest pain happens Pain is relieved by: pain medication, rest Progression since onset: Staying the same ROM: Fingers Extension/Flexion, AROM(PROM) 04/30/13 Date: 201104/30/13 05/06/13 05/15/13 05/28/13 Right Side: Left Left Left Left AROM(PROM) 90 105 65 Index: MP PIP DIP NT/80 18 5 35/82 15/74 5/31 0/91 0/102 0/67 0/92 0/107 0/76 Cycling Instructor and Pinch Strength (pounds) 05/28 Date: 05/28 Right Side Left 53 Cycling Instructor # 1 # 2 # 3 Average 47 11 3 Point # 1 # 2 # 3 Average 11 14 Lateral # 1 # 2 # 3 Average 12 Finger Edema Circumference: (Measured in cm) 05/06/13 Date 05/06/13 05/15/13 05/28/13 Right IF Location: Left IF Left IF Left IF 5.5 P1 6.4 5.9 5.6 5.4 PIP 6.1 5.4 5.2 4.4 P2 4.8 4.8 4.6 Scar: Well healed, dense scar tissue present. Sensation: Patient is having return of sensation to ulnar side of indes finger - tingling with gentle touch to ulnar side of tip of finger A: Response to therapy has been improvement to: ROM of Fingers: MP joint - Flex, PIP joint - Flex, DIP joint - Flex Strength: scrap stripper hand and pinch Edema: Circumferential edema has decreased Pain: frequency is less, intensity of pain is decreased, duration of pain is decreased and less tender over affected area Overall Assessment: Patient's symptoms are resolving. Patient is progressing well and is ready to decrease frequency of treatment in the clinic. STG/LTG: See goal sheet for details and updates of remaining functional limitations. Frequency: 1 X week, once daily Duration: for 8 weeks P: Treatment Plan: Modalities: US, Fluidotherapy and Paraffin Therapeutic Exercise: AROM, AAROM, PROM, Tendon Gliding, Blocking, Isotonics and Isometrics Neuromuscular re-education: Sensory re-education and Desensitization Manual Techniques: Scar mobilization, Myofascial release and Manual edema mobilization Orthotic Fabrication: Hand based orthosis Self Care: Self Care Tasks Home Program: HB dorsal block splint - 05/15/13 D/C per A/AROM, tendon gliding of fingers Recommend patient get long handled sponge for bathing and jar black oxide coating equipment tender that attaches to base of cabinet for one handed opening Edema management - instruction in coban wrapping, elevation, ice Scar management - scar massage, scar pad for night wear Desensitization with sensory stick Gentle scrap stripper hand and pinch strengthening with foam wedge Start working on more beading, harp playing to progress fine motor tasks Next visit: Fluidotherapy, ROM A/AAROM Scar massage D/C to HEP Discharge Plan: Achieve all LTG. Independent in home treatment program. Reach maximal therapeutic benefit. Please see daily flow sheet for treatment and 1:1 time provided today. documented in this encounter Plan of Treatment Not on filedocumented as of this encounter Procedures Procedure Name Priority Date/Time Associated Diagnosis Comme nts [facility] MANUAL THER Routine 05/28/2013 11:56 AM Finger stiff ness, left TECH,1+REGIONS,EA 15 CDT Pain in jackson b MIN Other postprocedural status Finger laceration, subsequent encounter [facility] THERAPEUTIC Routine 05/28/2013 11:56 AM Finger stiff ness, left EXERCISES CDT Pain in limb Other postprocedural status Finger laceration, subsequent encounter documented in this encounter Visit Diagnoses Diagnosis Finger stiffness, left - Primary Mechanical problems with limbs Pain in limb Other postprocedural status(V45.89) Other postprocedural status Finger laceration, subsequent encounter documented in this encounter Care Teams Seam Rubbing Machine Operator Relationship Specialty Start Date End Date Edison Tam MD PCP - General Family Practice 09/21/11 07/22/14 909 [facility] 4 [place], [place] [id number] documented as of this encounter
--- OUTSIDE RECORDS SUMMARY | 2021-10-24 12:02 | XMS_ITS | Encounter Summary ---
:1955 Author Organization [facility] Address [address] [place] [id number] Care Team Providers Name Role Phone Edison Tam MD Primary Care Provider Reason for Visit Reason Onset Date Comments Refill Request 08/28/2013 levothyroxine Encounter Details Date Type Department Care Team Description 08/28/2013 Refill [facility], Primary Edison Tam Refill Request Care Center MD [facility] (levothyroxine) 3rd Floor, Clinic [address]A [id number] [place] [address] [place] [address] Social History Tobacco Use Types [...] thyroiditis documented in this encounter Care Teams Rn Home Health Relationship Specialty Start Date End Date Edison Tam MD PCP - General Family Practice 09/21/11 07/22/[address] [place] [id number] documented as of this encounter
--- OUTSIDE RECORDS SUMMARY | 2021-10-24 12:02 | XMS_ITS | Encounter Summary ---
:1955 Author Organization [facility] Address [address] [place] [address] Care Team Providers Name Role Phone Edison Olivas MD Primary Care Provider Reason for Referral Specialty Diagnoses / Procedures Referred By Contact Refer red To Contact Omar Barnett DP M [address] [place] [address] [phone] Referral ID Status Reason Start Date Expiration Date Visits Requ ested Visits Authorized Reason for Visit Reason Comments Consult L foot bunion, orthotics Encounter Details Date Type Department Care Team Description 09/21/2013 Office Visit Orthopaedic Clinic [facility] Barnett [facility] NAOMY Nelson (acquired) (Primary Center [address] [place] [address] Dx) 1st Floor, [address] [address] [place], [place] [phone] (Work) [phone] Social History Tobacco Use Types Packs/Day Years [...] Concentration - - Weight 52.2 kg (115 lb) 09/21/2013 10:39 AM CDT Height 157.5 cm (5' 2) 09/21/2013 10:39 AM CDT Body Mass Index 21.03 09/21/2013 10:39 AM CDT documented in this encounter Progress Notes Omar Barnett DPM - 09/21/2013 10:31 AM CDT MEDICATIONS: Current Outpatient Prescriptions Medication Sig Dispense Refill ??? Levothyroxine Sodium 50 MCG CAPS Take 1 tablet by mouth daily 90 capsule 1 ??? propranolol (INDERAL) 20 MG tablet Take 1 tablet (20 mg) by mouth daily 90 tablet 1 ??? Nutritional Supplements (ROCÍO COMPLEX PO) Take 2 capsules by mouth daily ??? L-Lysine 500 MG TABS Take 1 tablet by mouth daily ??? rOPINIRole (REQUIP) 1 MG tablet Take 1 tablet (1 mg) by mouth At Bedtime May take 1/2 tab additional prn once daily 90 tablet 1 ??? predniSONE (DELTASONE) 5 MG tablet (total daily dose 7 mg/day) 90 tablet 3 ??? predniSONE (DELTASONE) 1 MG tablet Take 2 tablets (2 mg) by mouth daily With the 5mg tab for total of 7mg daily 180 tablet 3 ??? cyanocobalamin 1000 MCG/ML injection Inject 1 mL (1,000 mcg) into the muscle every 30 days 1 mL 11 ??? ORDER FOR DME Injection Supplies for Vitamin B12: 3cc syringes w/ 27 gauge needles, 1 inch length 12 each 0 ??? venlafaxine (EFFEXOR-XR) 75 MG 24 hr capsule Take 75 mg by mouth daily ??? Lactobacillus (ACIDOPHILUS PO) Take 1 capsule by mouth daily ??? cholecalciferol (VITAMIN D) 1000 UNIT tablet Take 1 tablet (1,000 Units) by mouth daily Discontinue Vitamin D 87905 100 tablet 3 ??? acetaminophen (TYLENOL) 500 [...] 1 tablet by mouth 2 times daily. ALLERGIES: Allergies Allergen Reactions ??? Humira Rash ??? Ibuprofen Sodium GI Disturbance ??? Loratadine Other (See Comments) Dry mouth, rapid heart beat ??? Lyrica Other (See Comments) Patient feels intoxicated on medication ??? No Clinical Screening - See Comments Use Caution with Pain Medication. Short term OK ??? Remicade (Infliximab Injection) Doesn't work for pt ??? Demerol (Meperidine) Rash ??? Morphine Hcl Rash IV allergy ??? Penicillin G Rash Childhood reaction ??? Sulfa Drugs Fatigue Profound lethargy ??? Tramadol Itching and Rash SOCIAL HISTORY: History Social History ??? Marital Status: Single Spouse Name: N/A Number of Children: N/A ??? Years of Education: N/A Occupational History ??? Not on file. Social History Main Topics ??? Smoking status: Former Smoker -- 1.00 packs/day for 18 years ??? Smokeless tobacco: Former User Quit date: 09/20/1991 ??? Alcohol Use: No ??? Drug Use: No Comment: no longer ??? Sexually Active: Not Currently -- Male partner(s) Comment: twice Other Topics Concern ??? Not on file Social History Narrative Moved to [place] from [facility]. She is living in an apartment accessible. PATIENT ACTIVE PROBLEM LIST: Patient Active Problem List Diagnosis ??? Yossi's [...] drug therapy ??? History of corticosteroid therapy PAST MEDICAL HISTORY: Past Medical History Diagnosis [...] hand skin cancer (left) ??? Yossi's disease PAST SURGICAL HISTORY: Past Surgical History Procedure [...] Surgeon: Marisol Hathaway MD; Location: [facility] OR FAMILY HISTORY: Family History Problem Relation Age of Onset ??? Arthritis Sister Sjogrens twin sister ??? Neurological Sister Multiple sclerosis older sister ??? Cancer Mother 68 Lung ??? Endocrine Disease Mother Hashimotos ??? Endocrine Disease Sister Hashimotos both sisters ??? Colon Cancer No family hx of ??? Crohn's Disease No family hx of ??? Ulcerative Colitis No family hx of ??? Colon Polyps No family hx of A1C 5.5 04/02/2013 A1C 5.4 09/20/2011 SUBJECTIVE FINDINGS: Maria E Coley is a 57 year old female referred from DR. Olivas for left foot bunion. She denies pain. She says that it has been here for a long time. She denies injury or anything making it feel better or worse. She says that the thing that makes it worse is when she walks on a hard surface with bad shoes for a long time. She thinks that it is slowly getting worse. She denies medical treatment for this. She has Chron's disease and has been on Prednisone for this. She has a history of back disease and has had a double L5 laminectomy. She has had a series of X rays done. She says that she has used [id number] insoles in the past with minimal relief. OBJECTIVE FINDINGS: DP and PT is 2/4. Left dorsal medial first MPJ prominence. Flat foot type with functional hallux limitus. Laterally deviated left hallux. Small, dorsal lateral fifth MPJ prominence. ASSESSMENT AND PLAN: Hallux valgus, left foot. Diagnosis and treatment options discussed with patient. Patient is casted and fit for custom-fit orthotics upon consent. Phone number and address of orthotic and prosthetic laboratory given for custom-fit orthotic machine pecan picker. She is advised upon stretching, icing, and shoe gear. Patient will return to clinic as needed. CC: Please send a copy of this note to Edison Olivas I, Omar Barnett DPM, have reviewed the above note and agree with the scribe's notation as written. Oscar Marquez, am serving as a scribe to document services personally performed by Omar Barnett DPM, based upon my observations and the provider's statements to me. All documentation has beenreviewed by the aforementioned doctor prior to being entered into the official medical record. documented in this encounter Nursing Notes Marga Kingston, [facility] - 09/21/2013 10:39 AM CDT Reason For Visit: Chief Complaint Patient presents with ??? Consult L foot bunion, orthotics Pain Assessment Patient Currently in Pain: No HEIGHT: 5' 2, WEIGHT: 115 lbs 0 oz, BMI: Body mass index is 21.03 kg/(m^2). Current Outpatient Prescriptions Medication Sig Dispense Refill ??? Levothyroxine Sodium 50 MCG CAPS Take 1 tablet by mouth daily 90 capsule 1 ??? propranolol (INDERAL) 20 MG tablet Take 1 tablet (20 mg) by mouth daily 90 tablet 1 ??? Nutritional Supplements (ROCÍO COMPLEX PO) Take 2 capsules by mouth daily ??? L-Lysine 500 MG TABS Take 1 tablet by mouth daily ??? rOPINIRole (REQUIP) 1 MG tablet Take 1 tablet (1 mg) by mouth At Bedtime May take 1/2 tab additional prn once daily 90 tablet 1 ??? predniSONE (DELTASONE) 5 MG tablet (total daily dose 7 mg/day) 90 tablet 3 ??? predniSONE (DELTASONE) 1 MG tablet Take 2 tablets (2 mg) by mouth daily With the 5mg tab for total of 7mg daily 180 tablet 3 ??? cyanocobalamin 1000 MCG/ML injection Inject 1 mL (1,000 mcg) into the muscle every 30 days 1 mL 11 ??? ORDER FOR DME Injection Supplies for Vitamin B12: 3cc syringes w/ 27 gauge needles, 1 inch length 12 each 0 ??? venlafaxine (EFFEXOR-XR) 75 MG 24 hr capsule Take 75 mg by mouth daily ??? Lactobacillus (ACIDOPHILUS PO) Take 1 capsule by mouth daily ??? cholecalciferol (VITAMIN D) 1000 UNIT tablet Take 1 tablet (1,000 Units) by mouth daily Discontinue Vitamin D 94001 100 tablet 3 ??? acetaminophen (TYLENOL) 500 [...] Pain Medication. Short term OK ??? Remicade (Infliximab Injection) Doesn't work for pt ??? Demerol (Meperidine) Rash ??? Morphine Hcl Rash IV allergy ??? Penicillin G Rash Childhood reaction ??? Sulfa Drugs Fatigue Profound lethargy ??? Tramadol Itching and Rash documented in this encounter Plan of Treatment Scheduled Referrals Name Type Priority Associated Diagnoses Order S chedule ORTHOTICS REFERRAL Referral Routine Hallux valgus (acquire d) Ordered: 09/21/2013 documented as of this encounter Procedures Procedure Name Priority Date/Time Associated Diagnosis Comme [facility] IMPRESSION CASTING Routine 09/21/2013 11:03 AM Hallux valg us OF FOOT CDT (acquired) documented in this encounter Visit Diagnoses Diagnosis Hallux valgus (acquired) - Primary documented in this encounter Care Teams Mud Analysis Well Logging Operator Relationship Specialty Start Date End Date Edison Olivas MD PCP - General Family Practice 09/21/11 07/22/14 909 [facility] 4 [place] [address] documented as of this encounter
--- OUTSIDE RECORDS SUMMARY | 2021-10-24 12:02 | XMS_ITS | Encounter Summary ---
:1955 Author Organization [place] Address [facility] [place] [address] Care Team Providers Name Role Phone Edison Tam MD Primary Care Provider Reason for Visit Reason Comments RECHECK Left index finger digital ne rve repair with loupe magnification and suturing and NeuraGen tube augmentati on (2 mm x 1 cm). DOS 04/19/13 Encounter Details Date Type Department Care Team Description 07/16/2013 Office Visit Orthopaedic Clinic Marisol Hathaway Digital nerve [place] MD Patricia laceration, finger, Rehabilitation [facility]rick tremaine [facility] subsequent 1st Floor, [address] 2 [facility] encounter (Primary [facility] [address] Dx) [place], [place] E [address] [place], [place] [phone] (Wo rk) Social History Tobacco Use Types Packs/Day Years Used Date Former Smoker 1 18 Smokeless Tobacco: Former User Q uit: 09/20/1991 Alcohol Use Standard Drinks/Week Comments No 0 (1 standard drink = 0.6 oz pure alcoho l) Sex Assigned at Date Recorded Not on file documented as of this encounter Progress Notes Monserrat Mcdaniel MD - 07/16/2013 1:58 PM CDT POSTOPERATIVE VISIT DATE OF SURGERY: 04/19/2013. HISTORY OF PRESENT ILLNESS: This is a 57-year-old right-hand dominant female who is now 3 months status post repair of the left index finger ulnar digital nerve. This was done while slicing an avocado.She states that she is noticing even more tingling at the very tip of her index finger. She has beenable to use the digit for all of her ADL's and is back to playing of the harp. She has no other quest ions or complaints today. PHYSICAL EXAMINATION: Alert, oriented female in no acute distress, nonlabored breathing. Evaluation of the left index finger demonstrates that she has a nicely healed scar over the base of the ulnar aspect of the left index finger. There is a little bit of scar tissue there, but overall it is not too dense. She does have subjectively diminished sensation over the tip of the ulnar aspect of the fingercompared to the radial aspect. She is able to make a full fist and fully extend all digits. There sarah positive Tinel's on the ulnar aspect of the index finger at the very tip. Two-point discriminationis 4 mm throughout the radial and ulnar aspects of all digits including the ulnar aspect of the index finger which is marked improvement over the 9 mm at the last visit. ASSESSMENT AND PLAN: 57-year-old female 3 months status post left index finger ulnar digital nerve repair. We discussed with the patient today that she has shown marked improvement in both her motion and objective sensory findings of the left index finger. It does not pose any difficulties for her in her activities of daily living. As such, we would consider it healed and we will have her follow up with uson an as-needed basis. Dictated by Monserrat Mcdaniel MD, Hand Surgery Fellow I have personally examined this patient and have reviewed the clinical presentation and progress note with the fellow. I agree with the treatment plan as outlined. The plan was formulated with the fellow on the day of the fellow's dictation. documented in this encounter Nursing Notes Alyssa Kang, FRANCES - 07/16/2013 1:28 PM CDT Reason For Visit: Chief Complaint Patient presents with ??? RECHECK Left index finger digital nerve repair with loupe magnification and suturing and NeuraGen tube augmentation (2 mm x 1 cm). DOS 04/19/13 Pain Assessment Patient Currently in Pain: No Hand Dominance Evaluation Hand Dominance: Right Substation Technician force R hand reception level 2 force: 24.041 kg (53 lb) L hand reception level 2 force: 23.133 kg (51 lb) Current Outpatient Prescriptions Medication ??? rOPINIRole (REQUIP) 1 MG tablet ??? predniSONE (DELTASONE) 5 MG tablet ??? predniSONE (DELTASONE) 1 MG tablet ??? cyanocobalamin 1000 MCG/ML injection ??? ORDER FOR DME ??? venlafaxine (EFFEXOR-XR) 75 MG 24 hr capsule ??? Lactobacillus (ACIDOPHILUS PO) ??? cholecalciferol (VITAMIN D) 1000 UNIT tablet ??? acetaminophen (TYLENOL) 500 MG tablet ??? Levothyroxine Sodium 50 MCG CAPS ??? Potassium Chloride CR 8 MEQ CPCR ??? propranolol (INDERAL) 20 MG tablet ??? buPROPion (WELLBUTRIN SR) 150 MG 12 [...] Profound lethargy ??? Tramadol Itching and Rash Alyssa Kang, ATC documented in this encounter Plan of Treatment Not on filedocumented as of this encounter Visit Diagnoses Diagnosis Digital nerve laceration, finger, subseq uent encounter - Primary documented in this encounter Care Teams Shop Worker Relationship Specialty Start Date End Date Edison Tam MD PCP - General Family Practice 09/21/11 07/22/14 909 [facility] 4 [place] [address] documented as of this encounter
--- OUTSIDE RECORDS SUMMARY | 2021-10-24 12:02 | XMS_ITS | Encounter Summary ---
:1955 Author Organization [facility] Address [address] [place] [address] Care Team Providers Name Role Phone Edison Olivas MD Primary Care Provider Reason for Visit Reason Comments RECHECK F/U OSTEOPOROSIS Encounter Details Date Type Department Care Team Description 09/07/2013 Office Visit Diabetes and Laisha Moraes Senile oste oporosis (Primary Dx); Endocrine AMD History of corticosteroid therapy 6th Floor, Clinic [address] [place] [address] [phone] [facility] (Work) [place], [place] [phone] [address] (Fax) [phone] Social History Tobacco Use Types Packs/Day Years Used Date Former Smoker 1 18 Smokeless Tobacco: Former User Q uit: 09/20/1991 Alcohol Use Standard Drinks/Week Comments No 0 (1 standard drink = 0.6 oz pure alcoho l) Sex Assigned at Date Recorded Not on file documented as of this encounter Last Filed Vital Signs Vital Sign Reading Time Taken Comments Blood Pressure 101/64 09/07/2013 12:48 PM CDT Pulse 77 09/07/2013 12:48 PM CDT Temperature - - Respiratory Rate - - Oxygen Saturation - - Inhaled Oxygen Concentration - - Weight 56.7 kg (124 lb 14.4 oz) 09/07/2013 12:48 PM CDT Height 154.9 cm (5' 1) 09/07/2013 12:48 PM CDT Body Mass Index 23.6 09/07/2013 12:48 PM CDT documented in this encounter Progress Notes Laisha Moraes MD - 09/07/2013 1:07 PM CDT Endocrinology Consult Note Attending ASSESSMENT/PLAN: 1. Hypothyroidism- TSH was normal 04/02/13 and 08/31/13. She should have TFTS about once/year for life, treating to normal TSH target. Not addressed 2. Hypovitaminosis D. Vitamin D level 67 on 04/02/13. Not addressed 3. Steroid use since teens/ SI joint injections intermittently. She is currently on prednisone 9 mg/day (having self increased the dose) and feeling better with the dose increase. I have counseled her on the steroid issue, reminding her of the continued goal to taper the dose -- this may ultimately take years and perhaps the taper prior to now was too fast. Next dose reduction would be to 8 mg/day, when she is ready. 4. Osteoporosis in patient on steroids > 7.5 mg/day. Reclast dose upcoming. Next DXA should be 10/22 or thereafter. 5 Fatigue- resolved with increased steroid dose. I have counseled her on this in the context of # 3 and expected secondary adrenal insufficiency. Greater than 50% of 15 minute appt on counseling. Laisha Moraes MD . Cc/ HISTORY OF PRESENT ILLNESS Maria E presents earlier than expected, having last been seen by me 07/27/13. Since our last visit we set up treatment for the osteoporosis (with Reclast rather than Forteo, a cost issue) and I had been hearing about her blood sugar. She has a history of chronic steroid use in the context of history of Crohn's disease. She has been on steroids since her teens. At the time of our last meeting she was on prednisone dose 7 mg/day once/day. She also had had SI joint injection . I recommended she change to 5 mg AM and 2 mg afternoon. Today she reports she is taking prednisone 8 mg AM and 1 mg PM. This has helped her greatly relative to the crushing sensation on the chest, and she is much less exhausted. Today she reports she was checking her BS and its doing fine . She has seen Anita Peterson, and she has been to DM education at [place] . She didn't bring her meter today. She stores her BS on her phone. The most recent BS was 153 on 09/03/13 (one hour after boost). She says that normally fasting glucose is 107-116. DXA 10/20 showed lowest T-score -2.8 at right femoral neck. She has had 2 fractures, one related to fall down steps and one related to fall while roller skating. Her height is down 1 inch from maximum baseline. She took Actonel in the past, until it was stopped after an esophageal ulcer. She then got IV Reclast (delivered in [place]), stopped about 2 years ago when her dentist advised cessation dueto concerns about the jaw. She is planning to get Reclast on Sat at 2 pM. images on PACs 12/03/[address] - incomplete views of the thyroid - thyroid looks normal on views seen (inferior part of the thyroid) 12/03/11 xray, L , T and C spine - no compression fracture 04/02/13 CT L spine: no compression fracture Hypothyroidism diagnosed . She can't recall the circumstances. REVIEW OF SYSTEMS flu like feeling resolved with increasing the prednisone Feels better No longer has exhaustion Past Medical History Hypothyroidism Crohn's disease since age 12 mulitple abdominal operations Colon resection x 3 Back operation laminectomy Medications Current Outpatient Prescriptions Medication Sig Dispense [...] Units) by mouth daily Discontinue Vitamin D 90239 100 tablet 3 ??? acetaminophen (TYLENOL) 500 [...] tablet by mouth 2 times daily. Allergies Allergies Allergen Reactions ??? Humira Rash [...] ??? Tramadol Itching and Rash Family History + parminder thyroiditis - 2 sisters family history includes Arthritis in her sister; Cancer (age of onset: 68) in her mother; Endocrine Disease in her mother and sister; and Neurological in her sister. There is no history of Colon Cancer, and Crohn's Disease, and Ulcerative Colitis, and Colon Polyps, . Social History History Substance Use Topics ??? Smoking status: Former Smoker -- 1.00 packs/day for 18 years ??? Smokeless tobacco: Former User Quit date: 09/20/1991 ??? Alcohol Use: No Reading a book to learn [employer] with her cats. Physical Exam BP 101/64 Pulse 77 Ht 1.549 m (5' 1) Wt 56.654 kg (124 lb 14.4 oz) BMI 23.61 kg/m2 Body mass index is 23.61 kg/(m^2). GENERAL : middle aged woman In no apparent distress SKIN: Normal color. No hirsutism, alopecia or purple striae. EYES: PER, No scleral icterus, No proptosis, conjunctival redness, stare, retraction NEURO: awake, alert, responds appropriately to questions. Moves all extremities; EXTREMITIES: No clubbing, cyanosis or edema. DATA REVEIW ENDO THYROID LABS-[facility] Latest Ref Rng 08/31/2013 04/02/2013 12/03/2012 TSH 0.4 - 5.0 mU/L 0.65 1.08 0.86 T4 FREE 0.70 - 1.85 ng/dL 1.25 ENDO CALCIUM LABS[facility] Latest Ref Rng 08/31/2013 04/02/2013 CALCIUM 8.5 [...] - 8.8 g/dL 7.2 6.9 ENDO CALCIUM LABS[facility] Latest Ref Rng 01/28/2013 CALCIUM 8.5 - [...] 34 documented in this encounter Nursing Notes Keerthi Rush MA - 09/07/2013 12:48 PM CDT Chief Complaint Patient presents with ??? RECHECK F/U OSTEOPOROSIS documented in this encounter Plan of Treatment Not on filedocumented as of this encounter Visit Diagnoses Diagnosis Senile osteoporosis - Primary History of corticosteroid therapy Personal history of systemic steroid the rapy documented in this encounter Care Teams Surgery Tech Relationship Specialty Start Date End Date Edison Olivas MD PCP - General Family Practice 09/21/11 07/22/14 909 [facility] 4 [place] [address] documented as of this encounter
--- OUTSIDE RECORDS SUMMARY | 2021-10-24 12:02 | XMS_ITS | Encounter Summary ---
:1955 Author Organization [facility] Address [address] [place] [address] Care Team Providers Name Role Phone Edison Tam MD Primary Care Provider Reason for Visit Reason Comments Other Encounter Details Date Type Department Care Team Description 08/13/2013 Telephone Diabetes and Endocri ne Andi Miranda, 6th Floor, Clinic 6A [facility] [address] [place] [address] [phone] Social History Tobacco Use Types Packs/Day Years Used Date Former Smoker 1 18 Smokeless Tobacco: Former User Q uit: 09/20/1991 Alcohol Use Standard Drinks/Week Comments No 0 (1 standard drink = 0.6 oz pure alcoho l) Sex Assigned at Date Recorded Not on file documented as of this encounter Miscellaneous Notes Telephone Encounter - Kash Moraes MD - 08/27/2013 8:54 AM CDT Message copied by KASH MORAES on SatAug 27, 2013 8:54 AM ------ Message from: ANDI MIRANDA Created: SatAug 13, 2013 12:30 PM Regarding: RE: reclast Maria E would prefer Forteo but it will put her in the donut hole . She is ok with Reclast now doesn't think it is an issue and is Affordable. She wants you to know that she tried splitting her prednisone dose And was tired all the time / jim.She is now back to 7 mg once in am And Is still tired but wanting to give it more time. Of note she will be calling her Provider to discuss Xanax . This may be causing the fatigue. She had cut backbefore and Was much more alert and feels she needs to do this again. ----- Message ----- From: Andi Miranda RN Sent: 08/07/2013 5:32 PM To: Andi Miranda RN Subject: FW: reclast ----- Message ----- From: Kash Moraes MD Sent: 07/29/2013 5:20 PM To: Harriett Lew RN Subject: RE: reclast Can you explain to her what the cost situation is. I am comfortable with Reclast. She has had it before but had told me that her dentist said she couldn't have it again, though I think this was just precautionary concern, not because of a real problem. ----- Message ----- From: Harriett Lew RN Sent: 07/29/2013 2:26 PM To: Kash Moraes MD Subject: FW: reclast reclast is covered ----- Message ----- From: Noé Martin Sent: 07/29/2013 2:18 PM To: Harriett Lew RN, [facility] Subject: RE: reclast La Maria E Prasad is good to go. 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 Secondary Diagnosis: Other Diagnosis: Current/failed therapies: Other pertinent info/labs: [facility]: [id number] Noé Dumas [facility] Administered Medications Coordinator [facility] [email or web address] ----- Message ----- From: Harriett Lew RN Sent: 07/28/2013 11:52 AM To: [facility] Subject: reclast Please check coverage for reclast 5 mg 733.01 V87.49 Fracture 814.0 thanks ------ Telephone Encounter - Andi Miranda RN - 08/13/2013 12:18 PM CDT Messages Have been left For Maria E to discuss with no call back Telephone Encounter - Andi Miranda RN - 08/13/2013 12:18 PM CDT Message copied by ANDI MIRANDA on SatAug 13, 2013 12:18 PM ------ Message from: ANDI MIRANDA Created: SatAugust 07, 2013 5:32 PM Regarding: FW: reclast ----- Message ----- From: Kash Moraes MD Sent: 07/29/2013 5:20 PM To: Harriett Lew RN Subject: RE: reclast Can you explain to her what the cost situation is. I am comfortable with Reclast. She has had it before but had told me that her dentist said she couldn't have it again, though I think this was just precautionary concern, not because of a real problem. ----- Message ----- From: Harriett Lew RN Sent: 07/29/2013 2:26 PM To: Kash Moraes MD Subject: FW: reclast reclast is covered ----- Message ----- From: Noé Martin Sent: 07/29/2013 2:18 PM To: Harriett Lew RN, [facility] Subject: RE: reclast Hi Maria E Prasad is good to go. 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 Secondary Diagnosis: Other Diagnosis: Current/failed therapies: Other pertinent info/labs: [facility]: [id number] Thanks, Noé [facility] Administered Medications Coordinator [facility] [email or web address] ----- Message ----- From: Harriett Lew RN Sent: 07/28/2013 11:52 AM To: [facility] Subject: reclast Please check coverage for reclast 5 mg 733.01 V87.49 Fracture 814.0 thanks ------ documented in this encounter Plan of Treatment Not on filedocumented as of this encounter Visit Diagnoses Not on filedocumented in this encounter Care Teams Embossing Press Operator Relationship Specialty Start Date End Date Edison Tam MD PCP - General Family Practice 09/21/11 07/22/[address] [place] [address] documented as of this encounter
--- OUTSIDE RECORDS SUMMARY | 2021-10-24 12:02 | XMS_ITS | Encounter Summary ---
:1955 Author Organization [facility] Address [address] [place] [address] Care Team Providers Name Role Phone Edison Tam MD Primary Care Provider Encounter Details Date Type Department Care Team Description 07/20/2013 Therapy Visit [facility], Low back pain (Primary Dx); Physical Therapy Zach Adams PT Sacro-iliac pain [address] [place] [address] Social History Tobacco Use Types Packs/Day Years Used Date Former Smoker 1 18 Smokeless Tobacco: Former User Q uit: 09/20/1991 Alcohol Use Standard Drinks/Week Comments No 0 (1 standard drink = 0.6 oz pure alcoho l) Sex Assigned at Date Recorded Not on file documented as of this encounter Progress Notes Harriett Lopez PT - 07/20/2013 5:05 PM CDT Subjective: HPI Objective: System Physical Exam General ROS Assessment/Plan: PROGRESS REPORT Progress reporting period is from 06-02-13 to 07-20-13. SUBJECTIVE. Has been able to do more of the exercises. Feeling more pain in SI area after ex. Has done some deep tissue work. Joined the [employer] and began to swim, says that it is helping. Pain is becoming more localized, feels sharp and stinging at time, unsure why (brief periods, L SI area). Sharp pain is above LPSIS but states has only happened 3 times in past month. Chair transitions are better. Current Pain level: 4/10 (days that she swims feels better). Previous pain level was 7/10 . Changes in function: Yes (See Goal flowsheet attached for changes in current functional level), improved activity and sleeping. Adverse reaction to treatment or activity: None OBJECTIVE Changes noted in objective findings: Objective: Hip flexion/adduction/extension, rotation all limited on L. Possible sacral torsion on exam. Abdominals weak but good performance of exercises, glut tone much improved. ASSESSMENT/PLAN Updated problem list and treatment plan: Diagnosis 1: Low back pain Pain - hot/cold therapy, manual therapy, self management, education and home program Decreased ROM/flexibility - manual therapy and therapeutic exercise Decreased joint mobility - manual therapy and therapeutic exercise Decreased strength - therapeutic exercise and therapeutic activities Decreased function - therapeutic activities STG/LTGs have been met or progress has been made towards goals: Yes (See Goal flow sheet completed today.) Assessment of Progress: The patient's condition is improving. Self Management Plans: Patient has been instructed in a home treatment program. Patient has been instructed in self management of symptoms. I have re-evaluated this patient and find that the nature, scope, duration and intensity of the therapy is appropriate for the medical condition of the patient. Maria E continues to require the following intervention to meet STG and LTG's: PT Recommendations: This patient would benefit from continued therapy. Frequency: One time every 2 weeks Duration: for 12 weeks Please refer to the daily flowsheet for treatment today, total treatment time and time spent performing 1:1 timed codes. documented in this encounter Plan of Treatment Not on filedocumented as of this encounter Procedures Procedure Name Priority Date/Time Associated Diagnosis Comme nts ZZC NEUROMUSCULAR Routine 07/20/2013 5:12 PM Low back pa in RE-EDUCATION CDT Sacro-iliac pain [facility] THERAPEUTIC EXERCISES Routine 07/20/2013 5:12 PM Low back pain CDT Sacro-iliac pain documented in this encounter Visit Diagnoses Diagnosis Low back pain - Primary Lumbago Sacro-iliac pain Disorders of sacrum documented in this encounter Care Teams Superintendent [employer] Relationship Specialty Start Date End Date Edison Tam MD PCP - General Family Practice 09/21/11 07/22/14 909 [facility] 4 [place], [place] [id number] documented as of this encounter
--- OUTSIDE RECORDS SUMMARY | 2021-10-24 12:02 | XMS_ITS | Encounter Summary ---
:1955 Author Organization [facility] Address [address] [place] [address] Care Team Providers Name Role Phone Edison Tam MD Primary Care Provider Reason for Visit Reason Onset Date Comments Refill Request 09/25/2013 requip Encounter Details Date Type Department Care Team Description 09/25/2013 Refill [facility], Primary Edison Tam Refill Request (requip) Care Center MD [facility] 3rd Floor, Clinic 3A [id number] [place] [address] [place] [address] Social History Tobacco Use Types [...] (RLS) documented in this encounter Care Teams Safety Inspector Relationship Specialty Start Date End Date Edsion Tam MD PCP - General Family Practice 09/21/11 07/22/[address] [address] documented as of this encounter
--- OUTSIDE RECORDS SUMMARY | 2021-10-24 12:02 | XMS_ITS | Encounter Summary ---
:1955 Author Organization [facility] Address [facility] [place] [address] Care Team Providers Name Role Phone Edison Tam MD Primary Care Provider Reason for Visit Reason Comments Diabetes Education Encounter Details Date Type Department Care Team Description 08/26/2013 Office Visit [facility] Anita Peterson PA-C [address] [facility] [address] [place] [address] Steroid-induced Diabetes Education Hanh Meraz diabetes mellitus (H) [place] (Primary Dx) [address] [place] [address] [place] [address] Social History Tobacco Use Types Packs/Day Years Used Date Former Smoker 1 18 Smokeless Tobacco: Former User Q uit: 09/20/1991 Alcohol Use Standard Drinks/Week Comments No 0 (1 standard drink = 0.6 oz pure alcoho l) Sex Assigned at Date Recorded Not on file documented as of this encounter Patient Instructions Patient InstructionsHanh Meraz - 08/26/2013 3:57 PM CDT 1) Continue to test as you currently are. If feeling weak, light headed or shaky when you are more active, get a glucose reading so we can see what is happening with your glucose. 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 She is accompanied by self Patient's diabetes management related comments/concerns: states would like to just talk though higher readings that have been occurring to see if there are any problem solving strategies that she may have missed. Patient would like this visit to be focused around the following diabetes- related behaviors and goals: problem solving ASSESSMENT: Current Diabetes Management per Patient: Taking diabetes medications? no Past Diabetes Education: Yes Patient glucose self monitoring as follows: 2-4x/day. BG meter: One Touch Ultra Mini meter BG results: glucose readings about 10 days ago when was taking the prednisone twice daily were running in the 131-229 range. They have slowly come back to what she declares is her usual area, that being 82-156. She is now back to using the prednisone once daily, taking 7 mg each morning. BG values are: In goal Patient's most recent A1C 5.5 04/02/2013 is meeting goal of <7.0 Nutrition: Patient currently has many dietary limitations. Will be seeing dietitian today as well. Please see progress note by Wendi Whyte RD CDE for further details. Cultural/temple diet restrictions: No Physical Activity: No regular routine, but states does stay active and get as much exercise as able. On 2 days when shewas active for majority of day, her glucoses ranged 82- 142 consistently. Diabetes Complications: Acute Complications: Symptoms of hyperglycemia? headache, blurred vision and feeling drowsy/tired Vitals: There were no vitals taken for this visit. Estimated body mass index is 23.44 kg/(m^2) as calculated from the following: Height as of 08/19/13: 1.549 m (5' 1). Weight as of 08/19/13: 56.246 kg (124 lb). Last 3 BP: BP Readings from Last 3 Encounters: 08/19/13 115/65 07/27/13 116/58 07/08/13 101/57 History Smoking status ??? Former Smoker -- 1.00 packs/day for 18 years Smokeless tobacco ??? Former User ??? Quit date: 09/20/1991 Labs: A1C 5.5 04/02/2013 GLC 91 04/02/2013 LDL 87 04/02/2013 HDL Cholesterol Date Value Range Status 04/02/2013 84 50 - 110 mg/dL Final ] GFR Estimate Date Value Range Status 04/02/2013 70 >60 mL/min/1.7m2 Final GFR Estimate If Black Date Value Range Status 04/02/2013 84 >60 mL/min/1.7m2 Final CR 0.84 04/02/2013 No results found for this basename: microalbumin Socio/Economic History: Race/Ethnicity: White/ Language(s) spoken at home: Zambian Support system: family Health Beliefs and Attitudes: See ASHISH Survey Results and Score Stage of Change: MAINTENANCE (Working to maintain change, with risk of relapse) Diabetes knowledge and skills assessment: Patient is knowledgeable in diabetes management concepts related to: Healthy Eating, Being Active, Monitoring, Problem Solving and Reducing Risks Patient needs further education on the following diabetes management concepts: Healthy Eating Barriers to Learning Assessment: No Barriers identified Based on learning assessment above, most appropriate setting for further diabetes education would be: Individual setting. INTERVENTION: Education provided today on: AADE Self-Care Behaviors: Being Active: relationship to blood glucose Monitoring: purpose, proper technique, log and interpret results and frequency of monitoring Problem Solving: high blood glucose - causes, signs/symptoms, treatment and prevention Reducing Risks: prevention, early diagnostic measures and treatment of complications Healthy Coping: recognize feelings about diagnosis, benefits of making appropriate lifestyle changes, utilize support systems and methods for coping with stress Education Materials Provided: No new materials provided today PLAN: See Patient Instructions for co-developed, patient-stated behavior change goals. AVS printed and provided to patient today. FOLLOW-UP: Follow-up as needed. Chart routed to referring provider. Time Spent: 60 minutes Encounter Type: Individual Hanh Meraz RN CDE [facility], Room [address] [place] [address] documented in this encounter Plan of Treatment Not on filedocumented as of this encounter Visit Diagnoses Diagnosis Steroid-induced diabetes mellitus (H) - Primary Secondary diabetes mellitus without ment ion of complication, not stated as uncontrolled, or unspecified documented in this encounter Care Teams Ice Cream Vendor Relationship Specialty Start Date End Date Edison Tam MD PCP - General Family Practice 09/21/11 07/22/14 909 [facility] 4 [place] [address] documented as of this encounter
--- OUTSIDE RECORDS SUMMARY | 2021-10-24 12:02 | XMS_ITS | Encounter Summary ---
:1955 Author Organization [facility] Address [address] [place] [address] Care Team Providers Name Role Phone Edison Tam MD Primary Care Provider Reason for Visit Reason Onset Date Comments Refill Request 06/18/2013 ropinirole Encounter Details Date Type Department Care Team Description 06/18/2013 Refill [facility], Primary Edison Tam Refill Request Care Center MD [facility] (ropinirole) 3rd Floor, Clinic 3A [id number] [place] [address] [place] [address] Social History Tobacco Use Types [...] (RLS) documented in this encounter Care Teams Log Cutter Relationship Specialty Start Date End Date Edison Tam MD PCP - General Family Practice 09/21/11 07/22/[address] [id number] documented as of this encounter
--- OUTSIDE RECORDS SUMMARY | 2021-10-24 12:02 | XMS_ITS | Encounter Summary ---
:1955 Author Organization [facility] Address [address] [place] [address] Care Team Providers Name Role Phone Edison Tam MD Primary Care Provider Reason for Visit Reason Onset Date Comments Refill Request 08/28/2013 propranolol Encounter Details Date Type Department Care Team Description 08/28/2013 [facility]ill [facility], Primary Edison Tam Refill Request Care Center MD Marcia (propranolol) 3rd Floor, Clinic 3A [address] [place] [id number] [place] [address] [place] [address] Social History Tobacco Use Types [...] as of this encounter Visit Diagnoses Diagnosis Unspecified essential hypertension documented in this encounter Care Teams Movie Critic Relationship Specialty Start Date End Date Edison Tam MD PCP - General Family Practice 09/21/11 07/22/[address] [address] documented as of this encounter
--- OUTSIDE RECORDS SUMMARY | 2021-10-24 12:02 | XMS_ITS | Encounter Summary ---
:1955 Author Organization [facility] Address [address] [place] [address] Care Team Providers Name Role Phone Edison Tam MD Primary Care Provider Reason for Visit Reason Comments Diabetes Education Encounter Details Date Type Department Care Team Description 08/26/2013 Office Visit [facility] Anita Peterson PA-C [address] [facility] [address]03 [place], [place] [phone] Other abnormal Diabetes Education Wendi Whyte, RD [address] [id number] glucose (Primary Dx) [address] [place] [address] Social History Tobacco Use Types [...] - Inhaled Oxygen Concentration - - Weight 55.3 kg (122 lb) 08/26/2013 4:24 PM CDT Height - - Body Mass Index 23.05 08/19/2013 1:28 PM CDT documented in this encounter Progress Notes IsabellWendi Sue, RD - 08/26/2013 4:45 PM CDT Diabetes Self Management Training: First Visit Maria E Coley presents today 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 She is accompanied by self Patient's diabetes management related comments/concerns: Had been having higher blood glucose readings than usual a couple weeks ago when she was on a different trial of prednisone. Since has resumed her usual routine. Patient would like this visit to be focused around the following diabetes- related behaviors and goals: Diet ASSESSMENT: Patient Problem List and Family Medical History reviewed for relevant medical history, current medical status, and diabetes risk factors. Current Diabetes Management per Patient: Taking diabetes medications? no Past Diabetes Education: Met with RN BOGDAN prior to this appointment Patient glucose self monitoring as follows: three times daily. BG results: 82-156 BG values are: In goal Patient's most recent A1C 5.5 04/02/2013 is meeting goal of <7.0 Nutrition: Patient currently eats real organic foods. Shops at [employer]. She has many limitations to her diet which she has discovered over the years and she relates to managing Crohn's disease as well as symptoms of abdominal pain and bloating. She follows a dairy free, gluten free diet and eats very littlered meat. Vegetables need to be juiced or cooked. She has experienced bowel obstruction in the past so has concerns about taking in large amounts of fiber. She drinks a lot of water - 120 ounces or so of water daily Breakfast - Boost with protein powder and sometimes with a hard boiled egg or a crust less quiche with ham and non starchy vegetables. Lunch - 16 ounces home-made juice which has mostly non starchy veggies like carrot, greens, garlic, mariela, tumeric and protein powder as well as an apple. Dinner - 1 cup wild rice with vegetables and a protein such as chicken, tofu or fish or nuts- she will have this once or twice per day Snacks - May have a banana or an avocado Second boost with protein powder Beverages: tea with a little coconut milk, home-made veggie juice, water and a little gatoraid Cultural/judaism diet restrictions: No Biggest Challenge to Healthy Eating: No major challenges. Eats real food, organic. But does feel somewhat limited. Patient is able to maintain her weight with current diet. She is looking for ideas for more variety and is also wanting to check her nutrient. Her estimated protein needs are met on current diet. She also takes a daily multivitamin which she adds to her juice. Her carbohydrate intake is low at around 100 grams per day and she may benefit from adding 30 grams daily from real food such as fruit, starchy vegetable or a gluten free whole grain such as quinoa. Patient complains of fatigue mid-day and is hopeful that some diet changes may aid that. Vitals: Wt 55.339 kg (122 lb) BMI 23.06 kg/m2 Estimated body mass index is 23.06 kg/(m^2) as calculated from the following: Height as of 08/19/13: 1.549 m (5' 1). Weight as of this encounter: 55.339 kg (122 lb). Last 3 BP: BP Readings from [...] No results found for this basename: microalbumin Health Beliefs and Attitudes: Patient Activation Measure Survey Score: Stage of Change: PREPARATION (Decided to change - considering how) Diabetes knowledge and skills assessment: Patient is knowledgeable in diabetes management concepts related to: Being Active, Monitoring, Taking Medication, Problem Solving, Reducing Risks and Healthy Coping Patient needs further education on the following diabetes management concepts: Healthy Eating Barriers to Learning Assessment: No Barriers identified Based on learning assessment above, most appropriate setting for further diabetes education would be: Individual setting. INTERVENTION: Education provided today on: AADE Self-Care Behaviors: Healthy Eating: healthy eating, macronutrients in food and function, carbohydrate counting, consistency in amount, composition, and timing of food intake and label reading Opportunities for ongoing education and support in diabetes-self management were discussed. Pt verbalized understanding of concepts discussed and recommendations provided today. Education Materials Provided: Carbohydrate Counting PLAN: See Patient Instructions for co-developed, patient-stated behavior change goals. Meal Plan Recommendation: Add an additional 30 grams of carbohydrate daily to diet for 5 small meals/snacks daily. Continue to keep any meal or snack under 60 grams of carbohydrate however. Some ideas to include to benefit nutrition would be quinoa, starchy vegetable such as potato or winter squash orfruit. AVS printed and provided to patient today. FOLLOW-UP: Follow-up appointment scheduled in one month. Chart routed to referring provider. Ongoing plan for education and support: Follow-up visit with visual journalist in one month Time Spent: 60 minutes Encounter Type: Individual documented in this encounter Plan of Treatment Not on filedocumented as of this encounter Visit Diagnoses Diagnosis Other abnormal glucose - Primary documented in this encounter Care Teams Ball Rolling Machine Operator Relationship Specialty Start Date End Date Edison Tam MD PCP - General Family Practice 09/21/11 07/22/14 909 [facility] [address] [place] [address] documented as of this encounter
--- OUTSIDE RECORDS SUMMARY | 2021-10-24 12:02 | XMS_ITS | Encounter Summary ---
:1955 Author Organization [facility] Address [facility] [place] [address] Care Team Providers Name Role Phone Edison Tam MD Primary Care Provider Encounter Details Date Type Department Care Team Description 05/28/2013 Orders Only [facility] Sid Lilly Back pain (Primary [facility] MD Alivia Dx) [address] 1[address] Floor, [address] [address] [place], [place] [phone] (Work) [phone] Social History Tobacco Use Types Packs/Day Years Used Date Former Smoker 1 18 Smokeless Tobacco: Former User Q uit: 09/20/1991 Alcohol Use Standard Drinks/Week Comments No 0 (1 standard drink = 0.6 oz pure alcoho l) Sex Assigned at Date Recorded Not on file documented as of this encounter Plan of Treatment Not on filedocumented as of this encounter Visit Diagnoses Diagnosis Back pain - Primary Backache, unspecified documented in this encounter Care Teams Relations Liaison Relationship Specialty Start Date End Date Edison Tam MD PCP - General Family Practice 09/21/11 07/22/14 909 [facility] 4 [place], [place] [address] documented as of this encounter
--- OUTSIDE RECORDS SUMMARY | 2021-10-24 12:02 | XMS_ITS | Encounter Summary ---
:1955 Author Organization [facility] Address [address] [place] [address] Care Team Providers Name Role Phone Edison Tam MD Primary Care Provider Reason for Visit Reason Comments Other Encounter Details Date Type Department Care Team Description 07/28/2013 Telephone Diabetes and Endocri ne Stevenson White RN 6th Floor, Clinic [place] [phone] Social History Tobacco Use Types Packs/Day Years Used Date Former Smoker 1 18 Smokeless Tobacco: Former User Q uit: 09/20/1991 Alcohol Use Standard Drinks/Week Comments No 0 (1 standard drink = 0.6 oz pure alcoho l) Sex Assigned at Date Recorded Not on file documented as of this encounter Miscellaneous Notes Telephone Encounter - Stevenson White RN - 07/28/2013 9:26 AM CDT Message copied by STEVENSON WHITE on SatJuly 28, 2013 9:26 AM ------ Message from: HARINDER CALZADA Created: SatJuly 28, 2013 8:58 AM Regarding: RE: ni Prasad, No PA required for Forteo at this time. However, she would be subject to the Medicare Part D cost. 1)$310 annual deductible 2)25% up to $2,850 3) Coverage Gap/Doughnut hole 47.5% for brands and 72% generics 4) After $4,550 Out of pocket - catastrophic coverage begins (5% - $2.55 generics or %6.35 brands) ThanksHarinder [facility] Liaison [facility] P F [email or web address] ----- Message ----- From: Stevenson White, RN Sent: 07/27/2013 4:54 PM To: Cam/Specialty Pharmacy Subject: forteo Could you please check coverage for forteo 20 mcg sq daily 733.01 V89.49 thanks ------ documented in this encounter Plan of Treatment Not on filedocumented as of this encounter Visit Diagnoses Not on filedocumented in this encounter Care Teams Software Engineer Kernel Relationship Specialty Start Date End Date Edison Tam MD PCP - General Family Practice 09/21/11 07/22/[address] [address] documented as of this encounter
--- OUTSIDE RECORDS SUMMARY | 2021-10-24 12:02 | XMS_ITS | Encounter Summary ---
:1955 Author Organization [facility] Address [address] [place] [address] Care Team Providers Name Role Phone Edison Tam MD Primary Care Provider Encounter Details Date Type Department Care Team Description 06/18/2013 Therapy Visit [facility], Low back pain (Primary Dx); Physical Therapy Zach ter Harriett, PT Sacro-iliac pain [address] [place] [phone] [id number] Social History Tobacco Use Types Packs/Day Years [...] Associated Diagnosis Comme nts ZZC THERAPEUTIC Routine 06/19/2013 9:12 AM Low back pain ACTIVITIES CDT Sacro-iliac pain ZZ THERAPEUTIC Routine 06/19/2013 9:12 AM Low back pain EXERCISES CDT Sacro-iliac pain documented in this encounter Visit Diagnoses Diagnosis Low back pain - Primary Lumbago Sacro-iliac pain Disorders of sacrum documented in this encounter Care Teams Tower Erector Relationship Specialty Start Date End Date Edison Tam MD PCP - General Family Practice 09/21/11 07/22/14 909 [facility] 4 [place] [address] documented as of this encounter
--- OUTSIDE RECORDS SUMMARY | 2021-10-24 12:02 | XMS_ITS | Encounter Summary ---
:1955 Author Organization [facility] Address [address] [place] [address] Care Team Providers Name Role Phone Edison Olivas MD Primary Care Provider Reason for Referral Patient Education - Closed Specialty Diagnoses / Procedures Referred By Contact Refer red To Contact Diagnoses Hyperglycemia Anita Peterson PA-C [facility] 803 [place], [place] [address] Referral ID Status Reason Start Date Expiration Date Visits Requ ested Visits Authorized [id number] Closed 08/19/2013 02/15/2014 1 1 Reason for Visit Reason Comments RECHECK F/U STEROID INDUCED ELEVATED BLOOD SUGARS Encounter Details Date Type Department Care Team Description 08/19/2013 Office Visit Diabetes and Anita Peterson Hyperglycemia (Primary Endocrine JOSH Cedillo Dx) 6th Floor, Clinic 6A [address] [place] [facility] [address] [address] [place] [phone] [facility] 88 (Work) [place] [address] Social History Tobacco Use Types Packs/Day Years Used Date Former Smoker 1 18 Smokeless Tobacco: Former User Q uit: 09/20/1991 Alcohol Use Standard Drinks/Week Comments No 0 (1 standard drink = 0.6 oz pure alcoho l) Sex Assigned at Date Recorded Not on file documented as of this encounter Last Filed Vital Signs Vital Sign Reading Time Taken Comments Blood Pressure 115/65 08/19/2013 1:28 PM CDT Pulse 81 08/19/2013 1:28 PM CDT Temperature - - Respiratory Rate - - Oxygen Saturation - - Inhaled Oxygen Concentration - - Weight 56.2 kg (124 lb) 08/19/2013 1:28 PM CDT Height 154.9 cm (5' 1) 08/19/2013 1:28 PM CDT Body Mass Index 23.43 08/19/2013 1:28 PM CDT documented in this encounter Patient Instructions Patient InstructionsMarga Francois - 08/19/2013 2:29 PM CDT If you have any questions or concerns, please don't hesitate to call our clinic at: . For URGENT issues, please dial , and ask to speak with the Manufacturing Quality Engineer On-Call. =======[facility] Medication Refill Information======= Medication Refill Fax Number - You must contact your pharmacy regarding ANY request for medication refills. *Please allow 3 business days for routine medication refills. *Please allow 5 business days for controlled substance medication refills. documented in this encounter Progress Notes Anita Peterson PA-C - 08/20/2013 3:09 PM CDT SENTHIL Coley is a 57 year old female seen by Dr. Moraes in our clinic for osteoporosis, hypothyroidism and low vitamin D. She is here today because she is concerned about some high blood sugar readings from home. She does not have a hx of diabetes and her A1C was 5.8 % in our clinic today. She had an A1C of 5.5 % in Mar 2013. Pt's hx is significant for use of steroids for many years for her Crohn's disease. She is currently taking prednisone 7 mg daily each am. She had been checking her blood sugar intermittently and recently had a few blood sugar reading in the high 100 range and one blood sugar readings of 208 ( shortly after eating ). Her blood sugar readings from yesterday ( 08/18/2013 ) were good: FBS 102 114 at 1:30 pm 132 at 4:50 pm 185 at 7:15 pm 122 at 11 pm Her A1C is 5.8 % today as above. On ROS today, she reports increase thirst, urination and fatigue. Some blurring of her vision. Her weight is up. She has chronic numbness in her toes which she relates to her back problems. She denies headache at this time, n/v or SOB at rest. Some SOB with exertion which she states is chronic. No chest pain and she denies any abd pain or diarrhea at this time. No dysuria, hematuria and she has no foot ulcers on exam today. The remaining ROS is unremarkable today. ROS Please see under HPI. Allergies Allergies Allergen Reactions ??? Humira Rash [...] Profound lethargy ??? Tramadol Itching and Rash Medications Current Outpatient Prescriptions Medication Sig Dispense Refill ??? Nutritional Supplements (ROCÍO COMPLEX PO) Take [...] Units) by mouth daily Discontinue Vitamin D 74352 100 tablet 3 ??? acetaminophen (TYLENOL) 500 MG tablet Take 500-1,000 mg by mouth every 8 hours as needed ??? Levothyroxine Sodium 50 MCG CAPS Take 1 tablet by mouth daily 90 capsule 1 ??? Potassium Chloride CR 8 MEQ CPCR Take 16 mEq by mouth daily NEED APPT WITH DR. OLIVAS FOR REFILLS. 30 capsule 0 ??? propranolol (INDERAL) 20 MG tablet Take 1 tablet (20 mg) by mouth daily 90 tablet 2 ??? buPROPion (WELLBUTRIN SR) 150 MG 12 [...] by mouth 2 times daily. Family History family history includes Arthritis in her sister; Cancer (age of onset: 68) in her mother; Endocrine Disease in her mother and sister; and Neurological in her sister. There is no history of Colon Cancer, and Crohn's Disease, and Ulcerative Colitis, and Colon Polyps, . Social History Smoke:none. ETOH: none. Past Medical History Past Medical History Diagnosis Date ??? 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 [...] Surgeon: Marisol Hathaway MD; Location: US OR Physical Exam BP 115/65 Pulse 81 Ht 1.549 m (5' 1) Wt 56.246 kg (124 lb) BMI 23.44 kg/m2 Body mass index is 23.44 kg/(m^2). GENERAL : Appears nervous and anxious. SKIN: Dry. EYES: PERRLA. Fundi not examined. MOUTH: Moist, pink; pharynx clear NECK: No goiter. RESP: Lungs clear to auscultation. CARDIAC: RRR; no murmur. ABDOMEN: Nontender. NEURO: awake, alert, responds appropriately to questions. Moves all extremities; Gait normal. EXTREMITIES: No edema. FEET: No ulcers; normal monofilamentous exam today. RESULTS Creatinine Date Value Range Status 04/02/2013 0.84 0.52 - 1.04 mg/dL Final GFR Estimate Date Value Range Status 04/02/2013 70 >60 mL/min/1.7m2 Final Hemoglobin A1C Date Value Range Status 04/02/2013 5.5 4.3 - 6.0 % Final Potassium Date Value Range Status 04/02/2013 3.7 3.4 - 5.3 mmol/L Final ALT Date Value Range Status 04/02/2013 38 0 - 50 U/L Final AST Date Value Range Status 04/02/2013 30 0 - 45 U/L Final TSH Date Value Range Status 04/02/2013 1.08 0.4 - 5.0 mU/L Final T4 Free Date Value Range Status 12/03/2012 1.25 0.70 - 1.85 ng/dL Final Cholesterol Date Value Range Status 04/02/2013 203* 0 - 200 mg/dL Final LDL Cholesterol is the primary guide to therapy. The NCEP recommends further evaluation of: patients with cholesterol greater than 200 mg/dL if additional risk factors are present, cholesterol greater than 240 mg/dL, triglycerides greater than 150 mg/dL, or HDL less than 40 mg/dL. HDL Cholesterol Date Value Range Status 04/02/2013 84 50 - 110 mg/dL Final LDL Cholesterol Calculated Date Value Range Status 04/02/2013 87 0 - 129 mg/dL Final LDL Cholesterol is the primary guide to therapy: LDL-cholesterol goal in high risk patients is <100 mg/dL and in very high risk patients is <70 mg/dL. Triglycerides Date Value Range Status 04/02/2013 159* 0 - 150 mg/dL Final Cholesterol/HDL Ratio Date Value Range Status 04/02/2013 2.4 0.0 - 5.0 Final A1C 5.8 08/19/2013 A1C 5.5 04/02/2013 A1C 5.4 09/20/2011 ASSESSMENT/PLAN: 1. GLYCEMIC STATUS: A1C is 5.8 % today. She is not anemic. She remains on prednisone 7 mg each am- hx of Crohn's Disease dx at age 12. I reassured patient that there is not need for oral hypoglycemia agents at this time. I will arrange for her to meet with our CDE and dietitian to review her diet. I asked her to take her blood sugar readings to her appointment. She is to check her premeal blood sugar a few days per week and also check a few 2 hr postmeal bloodsugar readings for us. Given her hx of mild blurred vision, I asked her to see an Oph. Her feet are without ulcers and monofilamentous exam was normal today. She is normotensive with BP 115/65. Pt's most recent creat was good 0.84 with a GFR 70 mL/min in Mar 2013. Her LDL is good at 87 with an HDL 84 in Mar 2013. 2. HX OF HYPOTHYROIDISM: Euthyroid at this time without RX. Her TSH was normal in Mar 2013. 3. HX OF OSTEOPOROSIS: Not addressed today. Pt followed by Dr. Moraes. 4. Return to Endocrine Clinic as scheduled to see Dr. Moraes later this month for f/u on her osteoporosis. documented in this encounter Nursing Notes Keerthi Rush MA - 08/19/2013 1:28 PM CDT Chief Complaint Patient presents with ??? RECHECK F/U STEROID INDUCED ELEVATED BLOOD SUGARS documented in this encounter Plan of Treatment Not on filedocumented as of this encounter Procedures Procedure Name Priority Date/Time Associated Diagnosis Comme nts HEMOGLOBIN A1C POCT Routine 08/19/2013 Hyperglycemia Results for this procedure are i n the results section . documented in this encounter Results Hemoglobin A1c POCT (08/19/2013) P athologist Signature Hemoglobin A1C 5.8 4.3 - 6 % POCT Specimen (Source) Anatomical Location Collection Method / Collectio n Time Received Time / Laterality Volume Whole blood 08/19/2013 sample (specimen) Anita Peterson PA-C LAB - ENTER/EDIT POCT documented in this encounter Visit Diagnoses Diagnosis Hyperglycemia - Primary Other abnormal glucose documented in this encounter Care Teams Bander And Cellophaner Helper Machine Relationship Specialty Start Date End Date Edison Olivas MD PCP - General Family Practice 09/21/11 07/22/[address] [address] documented as of this encounter
--- OUTSIDE RECORDS SUMMARY | 2021-10-24 12:02 | XMS_ITS | Encounter Summary ---
:1955 Author Organization [facility] Address [address] [place] [id number] Care Team Providers Name Role Phone Edison Olivas MD Primary Care Provider Reason for Visit Reason Comments RECHECK F/U PREDNISONE REDUCTION ADR ENAL FUCNTION Encounter Details Date Type Department Care Team Description 07/27/2013 Office Visit Diabetes and Laisha Moraes Senile oste oporosis (Primary Dx); Endocrine AMD Corticosteroid dependence (H); 6th Floor, Clinic [address] [place] [address] Fatigue Butler Wangensteen [facility] [address] [phone] [facility] [address] (Work) [place], [place] [phone] (Fax) [phone] Social History Tobacco Use Types Packs/Day Years Used Date Former Smoker 1 18 Smokeless Tobacco: Former User Q uit: 09/20/1991 Alcohol Use Standard Drinks/Week Comments No 0 (1 standard drink = 0.6 oz pure alcoho l) Sex Assigned at Date Recorded Not on file documented as of this encounter Last Filed Vital Signs Vital Sign Reading Time Taken Comments Blood Pressure 116/58 07/27/2013 4:01 PM CDT Pulse 79 07/27/2013 4:01 PM CDT Temperature - - Respiratory Rate - - Oxygen Saturation - - Inhaled Oxygen Concentration - - Weight 56.8 kg (125 lb 3.2 oz) 07/27/2013 4:01 PM CDT Height - - Body Mass Index 23.66 07/08/2013 12:04 PM CDT documented in this encounter Patient Instructions Patient InstructionsLaisha Moraes MD - 07/27/2013 4:24 PM CDT I recommend a trial of dividing the prednisone into 5 mg AM and 2 mg early afternoon Your next bone density should be 10/22 or thereafter (2 years after the last one) If you have any questions or concerns, please don't hesitate to call our clinic at: . For URGENT issues, please dial , and ask to speak with the [facility] [employer] [employer]. =======[facility] Medication Refill Information======= Medication Refill Fax Number - You must contact your pharmacy regarding ANY request for medication refills. *Please allow 3 business days for routine medication refills. *Please allow 5 business days for controlled substance medication refills. documented in this encounter Progress Notes Laisha Moraes MD - 07/27/2013 3:58 PM CDT Endocrinology Consult Note Attending ASSESSMENT/PLAN: 1. Hypothyroidism- TSH was normal 04/02/13. She should have TFTS about once/year for life, treating to normal TSH target. 2. Hypovitaminosis D. Vitamin D level 67 on 04/02/13. 3. Steroid use since teens/ SI joint injections intermittently. She is currently on prednisone 7 mg/day . Change to 5 mg AM and 2 mg afternoon. I would do cortrosyn stim test when she tapers to 5 mg/day or below, not before unless she plans to stop the steroids for some other reason. 4. Osteoporosis in patient on steroids > 7.5 mg/day. Recommend treatment with either reclast or Forteo. We decided today to check on prior auth for Forteo. Next DXA should be 14 or thereafter. 5 Fatigue- a nonspecific symptom. Plan as per # 3 Greater than 50% of 25 minutes appt on counseling and coordination of care. Laisha Moraes MD . Cc/ HISTORY OF PRESENT ILLNESS Maria E presents for follow up of chronic steroid use in the context of history of Crohn's disease. She has been on steroids since her teens. At the time of our lst meeting she was on 10 mg/day and we reduced to 8 mg/day . Her current prednisone dose is 7 mg/day - which she says she has been on since November. She feels the crohns disease is quiet, except she does have fistulas. Methotrexate resulted in side effects (gums bleeding, vision change) so it was stopped. Since then, they haven't done anything new with the Crohns treatment. She had SI joint injection not long ago. She has not felt better since this. DXA 10/20 showed lowest T-score -2.8 at right femoral neck. She has had 2 fractures, one related to fall down steps and one related to fall while roller skating. Her height is down 1 inch from maximum baseline. She took Actonel in the past, until it was stopped after an esophageal ulcer. She then got IV Reclast (delivered in [place]), stopped about 2 years ago when her dentist advised cessation dueto concerns about the jaw. images on PACs 12/03/[address] - incomplete views of the thyroid - thyroid looks normal on views seen (inferior part of the thyroid) 12/03/11 xray, L , T and C spine - no compression fracture 04/02/13 CT L spine: no compression fracture Hypothyroidism diagnosed . She can't recall the circumstances. Since our lst visit her weight is up from 113 to 125, a regain of weight previously lost She continues to check BSs She didn't bring the meter to the appt today. REVIEW OF SYSTEMS Almost flu like feeling - but not- Right ear keeps stinging Always had difficulty breathing (RODGERS on stairs) - Tightness in lungs-- feeling of not getting enough breath Yeasty smell has resolved on current supplement Nausea intermittently since age 13, but had disappeared for a while, and now is coming back on and off Dizziness achiness in muscles-- sometimes still Incredible fatigue-- total system shut down -- present since going down on the prednisone. She feelslowest at 3 PM Headaches have improved since stopping caffeine Past Medical History Hypothyroidism Crohn's disease since age 12 mulitple abdominal operations Colon resection x 3 Back operation laminectomy Medications Current Outpatient Prescriptions Medication Sig Dispense Refill ??? Nutritional Supplements (JHOANA COMPLEX PO) Take 2 capsules by mouth [...] Units) by mouth daily Discontinue Vitamin D 60292 100 tablet 3 ??? acetaminophen (TYLENOL) 500 [...] 1 tablet by mouth 2 times daily. Jhoana Support by [facility]-- she has been on this 2 weeks Allergies Allergies Allergen Reactions ??? Humira Rash [...] Quit date: 09/20/1991 ??? Alcohol Use: No Stopped caffeine; drinking green tea In PT Physical Exam BP 116/58 Pulse 79 Ht Wt 56.79 kg (125 lb 3.2 oz) Cannot calculate BMI with a height equal to zero. GENERAL : middle aged woman In no apparent distress SKIN: Normal color. No hirsutism, alopecia or purple striae. EYES: PER, No scleral icterus, No proptosis, conjunctival redness, stare, retraction NEURO: awake, alert, responds appropriately to questions. Moves all extremities; EXTREMITIES: No clubbing, cyanosis or edema. [facility] Latest Ref Rng 04/02/2013 12/03/2012 06/04/2012 TSH 0.4 - 5.0 mU/L 1.08 0.86 T4 FREE 0.70 - 1.85 ng/dL 1.25 PREALBUMIN 15 - 45 mg/dL 31 ENDO CALCIUM LABS-[facility] Latest Ref Rng 04/02/2013 01/28/2013 CALCIUM 8.5 - 10.4 mg/dL 9.1 MAGNESIUM 1.6 - 2.3 mg/dL ALBUMIN 3.3 - 4.9 g/dL 4.2 4.1 BUN 7 - 30 mg/dL 13 CREATININE 0.52 - 1.04 mg/dL 0.84 PARATHORMONE, INTACT 12 - 72 pg/mL ALKPHOS 40 - 150 U/L 83 74 25 OH VIT D TOTAL 30 - 75 ug/L VITAMIN D DEFICIENCY SCREENING 30 - 75 ug/L 67 PROTEIN, TOTAL 6.8 - 8.8 g/dL 6.9 6.9 ENDO CALCIUM LABS-[facility] Latest Ref Rng 01/14/2013 12/03/2012 CALCIUM 8.5 - 10.4 mg/dL 9.0 9.1 MAGNESIUM 1.6 - 2.3 mg/dL ALBUMIN 3.3 - 4.9 g/dL 3.9 BUN 7 - 30 mg/dL 22 CREATININE 0.52 - 1.04 mg/dL 0.83 PARATHORMONE, INTACT 12 - 72 pg/mL 32 ALKPHOS 40 - 150 U/L 77 25 OH VIT D TOTAL 30 - 75 ug/L VITAMIN D DEFICIENCY SCREENING 30 - 75 ug/L PROTEIN, TOTAL 6.8 - 8.8 g/dL 6.5 (L) ENDO DIABETES Latest Ref Rng 04/02/2013 HEMOGLOBIN A1C 4.3 - 6.0 % 5.5 HGB 11.7 - 15.7 g/dL 14.8 GLUCOSE 60 - 99 mg/dL 91 documented in this encounter Nursing Notes Celina Daily CMA - 07/27/2013 3:57 PM CDT Chief Complaint Patient presents with ??? 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
--- OUTSIDE RECORDS SUMMARY | 2021-10-24 12:02 | XMS_ITS | Encounter Summary ---
:1955 Author Organization [place] Address [address] [place] [id number] Care Team Providers Name Role Phone Edison Olivas MD Primary Care Provider Reason for Visit Reason Comments RECHECK F/U RECURRENT JHOANA Encounter Details Date Type Department Care Team Description 07/08/2013 Office Visit [facility] Pj Packer P, Mar e (Primary Dx); Clinic Crohn's disease of both small and large intestine with complication (H); 6th Floor, Clinic [address] Myalgia and myositis, unspec ified; Luke Shi [facility] [address] [facility] 88 [id number] 4 [facility] [phone] (Work) [place] [address] Social History Tobacco Use Types Packs/Day Years Used Date Former Smoker 1 18 Smokeless Tobacco: Former User Q uit: 09/20/1991 Alcohol Use Standard Drinks/Week Comments No 0 (1 standard drink = 0.6 oz pure alcoho l) Sex Assigned at Date Recorded Not on file documented as of this encounter Last Filed Vital Signs Vital Sign Reading Time Taken Comments Blood Pressure 101/57 07/08/2013 12:04 PM CDT Pulse 80 07/08/2013 12:04 PM CDT Temperature 36.7 ??C (98 ??F) 07/08/2013 12:04 PM CDT Respiratory Rate - - Oxygen Saturation - - Inhaled Oxygen Concentration - - Weight 55.8 kg (123 lb) 07/08/2013 12:04 PM CDT Height 154.9 cm (5' 1) 07/08/2013 12:04 PM CDT Body Mass Index 23.24 07/08/2013 12:04 PM CDT documented in this encounter Patient Instructions Patient InstructionsPj Packer MD - 07/08/2013 1:18 PM CDT I do not feel you have any syndrome due to chronic Jhoana infection, so I would not recommend any treatment for that. Continue to take such good care of yourself. documented in this encounter Progress Notes Pj Packer MD - 07/21/2013 4:48 PM CDT Division of Infectious Diseases and [facility] Medicine Department of Medicine INFECTIOUS DISEASE CLINIC CONSULTATION VISIT NOTE [place] Mail Code [address] [place] [address] Office: [phone] HISTORY OF PRESENT ILLNESS: Ms. Maria E Landers is a very pleasant and articulate 57-year-old woman referred for outpatient Infectious Disease Consultation by Dr. Edison Olivas for concern that possible chronic candidiasis might explain a myriad of her chronic troublesome symptoms. Ms. Landers has a complex past medical history, including long-standing Crohn's disease of both small and large intestines initially diagnosed in 1970 at age 13 and on chronic prednisone therapy since then. Most of the history is obtained today from the patient. 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 Her recent dose of prednsione is 7 mg daily,the lowest amount she has taken in many years. She also has a history of fibromyalgia, two past positive AMAs without a diagnosis of actual lupus (after full evaluation(s) by Rheumatology), and she fell down a flight of stairs about two years ago. She has a number of chronic diffuse symptoms which shefeels have overall worsened since 2012. First, she has noticed what she believes to be oral thrush intermittently (including at present) mostly on her tongue over the past couple of years and has also been previously prone to candidal vaginitis over the years. She recently read book on chronic candidiasis (which she showed me, similar to The Jhoana Connection in content but newer and published in 2008) which her sister gave her. After reading that book, she realized she suffered from many ofthe symptoms described there, so asked Dr. Olivas for an evaluation for chronic candidiasis. She grew up with two physicians for parents, so studies lay literature on health and medical topics assiduously. In addition to the coating on the mucosae of her tongue (which is provoked by eating the smallest bit of sugar or by taking any antibiotics, she also feels a similar sensation in her throat. She also describes chronic fatigue (with some good days and some days she can barely summon energy to get out of bed) over recent years, intermittent holocranial headaches, a sensation of diffuselyhot andpruritic skin (again worsened by eating any extra sugar), a sensation of a yeasty smell after eating sugar, an intermittent daytime brain fog (like a computing system shutdown) where she feels she is just not intellectually energetic or able to concentrate, diffuse muscle aches (although difficult to distinguish at times, but seems different from her fibromyalgia pain) especially of the bilateral arms with weakness (making it difficult to lift weights, which she does for exercise), constant waxing / waning nausea (which has to some degree been present throughout her Crohn's diagnosis for many decades), intermittent daytime chills and mild spontaneous sweats, a chronic sensation of tired lungs (like it is sometimes just hard to breath), an occasional dry cough, and an occasional sensation that it is hard to swallow. Beyond these chronic complaints, she also has recently noticed some mild right otalgia and bilateral maxillary sinus fullness over the past couple of weeks. These issues have mostly all been present for a number of years, but they seem more prominent over the past approximately two-thirds of a year, and perhaps since she feel down the flight of stairs in 2011. The symptoms seem to worsen when her skin is exposed to the sun, so she is careful to wear a hat and otherwisecover up when outdoors. She has taken courses (up to about two weeks long) of oral nystatin swish and swallow and notices that her symptoms seem to improve temporarily with that, but the above symptomsrecur to the same degree once the nystatin is discontinued. In particular, she feels that her coated tongue and throat sensation improved when she has been on nystatin in the past. She has not taken any nystatin now for a number of months (last in ~ 01/21). The intervention that most seems to improve her overall health and reduces a number of the above specific symptoms is a severe, stringent diet she has adopted to help manage her Crohn's disease, especially over the past year (since Spring 2012). Her diet eliminates all dairy, gluten, tofu, and raw fruit / vegetable foodstuffs, and minimizes fat and non-natural sugar (the exception being she sometimes drinks low-glucose Boost). Instead, she eats mostly cooked vegetables, brown / wild rice, and nuts. Despite the diet, however, which has successful controlled her Crohn's disease to the point she has managed to recently do well on only the 7 mgper day of prednisone, she still has waxing / waning of all the above symptoms to varying degrees. She has thought for some time that all of the above added up to something going on with her body beyond the Crohn's disease, and so when she read the book about chronic candidiasis, she felt it all made sense, especially given her sensitivity to small amounts of processed sugar. Despite these above symptoms, she does try to lead a fairly active life and exercises regularly. She has a history of depression, but does not feel she is presently suffering from mood issues. She reports no recent overtly measurable fever, rigors, uncontrollable chills, drenching night sweats, appetite change, change in her chronic fatigue beyond the usual fluctuations, new rash (beyond chronic waxing / waning skin heat and pruritus), new focal arthralgias, resting dyspnea (except when taking a deep breath), rhinorrhea, visual changes, other EENT symptoms, chest pain, new diarrhea, constipation, significant abdominal ashwini n, genitourinary symptoms beyond a historical propensity to yeast vaginitis, increasing or unusual headaches beyond her chronic state, or other new neurological symptoms. Her peripheral WBC and inflammatory markers have been consistently normal over the past couple of years. PAST MEDICAL HISTORY: Past Medical History [...] Surgeon: Marisol Hathaway MD; Location: [facility] OR ALLERGIES: Allergies Allergen Reactions ??? Humira Rash [...] Profound lethargy ??? Tramadol Itching and Rash MEDICATIONS: Current Outpatient Prescriptions Medication Sig Dispense [...] Units) by mouth daily Discontinue Vitamin D 02195 100 tablet 3 ??? acetaminophen (TYLENOL) 500 [...] 1 tablet by mouth 2 times daily. SOCIAL HISTORY: History Social History ??? Marital [...] on file Social History Narrative Moved to [place] from [facility] She is living in an apartment accessible. FAMILY HISTORY: Family History Problem Relation Age [...] ??? Colon Polyps No family hx of REVIEW OF SYSTEMS: As per HPI. Complete ROS is otherwise negative. PHYSICAL EXAMINATION: General: A pleasant, conversant, WDWN, 57-year-old woman in [facility]. Vital signs: BP 101/57 Pulse 80 Temp(Src) 98 ??F (36.7 ??C) (Oral) Ht 1.549 m (5' 1) Wt 55.792 kg (123 lb) BMI 23.25 kg/m2 . Skin: No acute rash or lesion, no significant excoriation nor skin dryness beyond a mild normal degree. Head/Neck: NCAT. Tympanic membranes are bilaterally pearly without erythema.The right TM light reflex cone is slightly diffused, the left reflex is normal. PERRL. EOMI. Conjunctivae are pink without injection. Sclerae are white. No sinus percussion tenderness. No rhinorrhea. Oropharynx lacks erythema, exudate, or lesion. There is a moderately thick bacterial coating on the ventral lingual surface consistent with a normal bacterial overgrowth. There is no hint of any lingual,buccal, palatal, or pharyngeal thrush (what the patient considered tongue thrush appears to have been instead the normal tongue bacterial exudate). Dentition is in good repair. Neck is supple without any tenderness, lymphadenopathy, or thyromegaly. Lungs: Bilaterally clear to auscultation, no rub on deep inhalation. No terminal wheeze or cough on forced anterior exhalation. CV: RRR. Normal S1, S2, without gallop, murmur, or rub. Abdomen: Bowel sounds active, soft, nontender, no hepatosplenomegaly, no mass, healed old surgical scar. Back: No lumbar or CVA tenderness, old lumbar surgical scar. Extremities: Distally warm, no edema. Neuro: Alert, oriented, memory/cognition/affect are normal, gait is normal. LABORATORY STUDIES (Reviewed with the patient during her appointment today): Office Visit on 04/02/2013 Component Date Value Range Status ??? Cholesterol 04/02/2013 203* 0 - 200 mg/dL Final Comment: LDL Cholesterol is the primary guide to therapy. The NCEP recommends further evaluation of: patients with cholesterol greater than 200 mg/dL if additional risk factors are present, cholesterol greater than 240 mg/dL, triglycerides greater than 150 mg/dL, or HDL less than 40 mg/dL. ??? Triglycerides 04/02/2013 159* 0 - 150 mg/dL Final ??? HDL Cholesterol 04/02/2013 84 50 - 110 mg/dL Final ??? LDL Cholesterol Calculated 04/02/2013 87 0 - 129 mg/dL Final Comment: LDL Cholesterol is the primary guide to therapy: LDL-cholesterol goal in high risk patients is <100 mg/dL and in very high risk patients is <70 mg/dL. ??? VLDL-Cholesterol 04/02/2013 32* 0 - 30 mg/dL Final ??? Cholesterol/HDL Ratio 04/02/2013 2.4 0.0 - 5.0 Final ??? Sodium 04/02/2013 137 133 - 144 mmol/L Final ??? Potassium 04/02/2013 3.7 3.4 - 5.3 mmol/L Final ??? Chloride 04/02/2013 102 94 - 109 mmol/L Final ??? Carbon Dioxide 04/02/2013 25 20 - 32 mmol/L Final ??? Anion Gap 04/02/2013 10 6 - 17 mmol/L Final ??? Glucose 04/02/2013 91 60 - 99 mg/dL Final ??? Urea Nitrogen 04/02/2013 13 7 - 30 mg/dL Final ??? Creatinine 04/02/2013 0.84 0.52 - 1.04 mg/dL Final ? ? GFR Estimate 04/02/2013 70 >60 mL/min/1.7m2 Final ? ? GFR Estimate If Black 04/02/2013 84 >60 mL/min/1.7m2 Final ??? Calcium 04/02/2013 9.1 8.5 - 10.4 mg/dL Final ??? Bilirubin Total 04/02/2013 0.3 0.2 - 1.3 mg/dL Final ??? Albumin 04/02/2013 4.2 3.3 - 4.9 g/dL Final ??? Protein Total 04/02/2013 6.9 6.8 - 8.8 g/dL Final ??? Alkaline Phosphatase 04/02/2013 83 40 - 150 U/L Final ??? ALT 04/02/2013 38 0 - 50 U/L Final ??? AST 04/02/2013 30 0 - 45 U/L Final ??? WBC 04/02/2013 8.2 4.0 - 11.0 10e9/L Final ??? RBC Count 04/02/2013 4.87 3.8 - 5.2 10e12/L Final ??? Hemoglobin 04/02/2013 14.8 11.7 - 15.7 g/dL Final ??? Hematocrit 04/02/2013 45.0 35.0 - 47.0 % Final ??? MCV 04/02/2013 92 78 - 100 fl Final ??? MCH 04/02/2013 30.4 26.5 - 33.0 pg Final ??? MCHC 04/02/2013 32.9 31.5 - 36.5 g/dL Final ??? RDW 04/02/2013 12.7 10.0 - 15.0 % Final ??? Platelet Count 04/02/2013 218 150 - 450 10e9/L Final ??? Diff Method 04/02/2013 Automated Method Final ??? % Neutrophils 04/02/2013 83.0 Final ??? % Lymphocytes 04/02/2013 10.4 Final ??? % Monocytes 04/02/2013 5.7 Final ??? % Eosinophils 04/02/2013 0.5 Final ??? % Basophils 04/02/2013 0.2 Final ??? % Immature Granulocytes 04/02/2013 0.2 Final ??? Absolute Neutrophil 04/02/2013 6.8 1.6 - 8.3 10e9/L Final ??? Absolute Lymphocytes 04/02/2013 0.9 0.8 - 5.3 10e9/L Final ??? Absolute Monoctyes 04/02/2013 0.5 0.0 - 1.3 10e9/L Final ??? Absolute Eosinophils 04/02/2013 0.0 0.0 - 0.7 10e9/L Final ??? Absolute Basophils 04/02/2013 0.0 0.0 - 0.2 10e9/L Final ??? Abs Immature Granulocytes 04/02/2013 0.0 0 - 0.4 10e9/L Final ??? TSH 04/02/2013 1.08 0.4 - 5.0 mU/L Final ??? Vitamin D Deficiency screening 04/02/2013 67 30 - 75 ug/L Final Comment: Season, race, dietary intake, and treatment affect the concentration of 10-fowdjxl-Djcmuws D. Values may decrease during winter months and increase during summer months. Values less than 30 ug/L may indicate Vitamin D deficiency. Vitamin D determiniation is routinely performed by an immunoassay specific for 25 hydroxyvitamin D3. If an individual is on vitamin D2 (ergocalciferol) supplementation, please specify 25 OH vitamin D2 and D3 level determination by LCMSMS test VITD23. For questions, please contact the laboratory at [phone]. ??? Hemoglobin A1C 04/02/2013 5.5 4.3 - 6.0 % Final ? ? CRP Inflammation 04/02/2013 <5.0 0.0 - 8.0 mg/L Final ??? Sed Rate 04/02/2013 5 0 - 30 mm/h Final IMPRESSION/PLAN: A pleasant 57-year-old woman with longstanding small / large intestine Crohn's disease since 1970 with multiple past fistulae and a bowel resection on chronic prednisone therapy since age 13, as well as fibromyalgia, past positive AMA of uncertain significance, and trauma from a fall down a flight of stairs about two years ago. She has a constellation of chronic waxing / waning symptoms including lingual exudate (which she thought was thrush), a sensation of throat exudate, occasional vaginal candidiasis, fatigue, headaches, mental abstractedness, diffusely hot / pruritic skin, diffuse myalgias, upper arm aches and weakness, nausea, intermittent daytime chills and mild spontaneous sweats, a chronic sensation of tired lungs and dry cough, and some slight dysphagia -- all symptoms present for several years but increased in frequency or intensity over the past two-thirds of a year -- as well as more recent mild right otalgia and bilateral maxillary sinus fullness over the past couple of weeks. These symptoms seem to be exacerbated by sugar ingestion and sunlight. She would like to know if this can all be attributed to chronic candidiasis, a condition she recently read a book about. I had a long conversation (total time ~ one hour, much of it counseling) today with Ms. Coley about her symptoms and the controversy regarding the diagnosis of chronic candidiasis. Although thereare many folks in the world (and on the internet) who believe fervently that excess Jhoana in the body can be a problem causing a myriad of (mostly non-specific) symptoms such as hers, the diagnosis of chronic candidiasis in someone who is not severely immunocompromised (absolutely neutropenic and fungemic) is considered a popular myth by most infectious disease physicians and microbiologists. In particular, I pointed out that the tongue exudate she (and perhaps some physicians) thought to be thrush was in fact a normal lingual bacterial overgrowth. I see no evidence of any thrush anywhere in her mouth today. I pointed out that vaginal candidiasis is a problem for many women, especially those on steroids or antibiotics, and certainly can be a by-product of enterovaginal fistulae. Beyond that, most of her other symptoms may be in part attributable to normal aging and life stress, coupled perhaps with some susceptibilities (for example, to dry skin) that might be more expressed in her than in the average person. Some of her symptoms (myalgias, generalized weakness, headaches, relative chilliness) may in part also be a by-product or exacerbated by of nearly 4.5 decades of chronic prednisone therapy. I pointed out that overall she has tolerated that very long duration of prednisone quite admirably, better than most people would, and that some side effects are nevertheless to be expected. That she is doing so very well overall as she is, perhaps, can be attributed in part to how careful she is to live a healthy lifestyle, with attention to exercise, diet, and stress control (meditation, etc, which she does faithfully). I therefore told her, in summary, that I very strongly doubt she has any chronic infection of any sort, candidal or otherwise, and that none of her symptoms would likely benefit at all from any course of antimicrobial therapy, antifungal or otherwise. Instead, I recommended she continue to try to take good care of herself, as she has already been doing, and simply try to continue to figure out ways to live with and work around the above non-specific symptoms when they bother her. With regard to her mild recent right otalgia and maxillary sinus fullness, I do not feel she has anyacute bacterial infection, although she may have some mild (especially) right Eustachian tube partial obstruction. For this, short-term, she can try using Sudafed, Afrin spray, or chili peppers. If those measures do not relieve her symptoms, a trial of a steroid nasal spray might be indicated in a couple of weeks. I will defer that to her primary physician. I believe that the above conversation dispelled her concern about chronic candidiasis. On the one hand, she is disappointed that there is not a treatable diagnosis that would relieve all of the above symptomatic concerns. On the other hand, she seemed somewhat relieved that she does not have any obvious new overarching problem beyond getting older and Crohn's with chronic prednisone use, which are plenty enough. We will not perform any additional investigations today and she does not need additional scheduled follow-up in ID Clinic, although I told her I would be delighted to see her again at any point in the future should she or Dr. Olivas have any additional ID-related questions or concerns. documented in this encounter Nursing Notes Celina Daily CMA - 07/08/2013 12:03 PM CDT Chief Complaint Patient presents with ??? 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
--- OUTSIDE RECORDS SUMMARY | 2021-10-24 12:03 | XMS_ITS | Encounter Summary ---
:1955 Author Organization [place] Address [address] [place] [id number] Care Team Providers Name Role Phone Edison Tam MD Primary Care Provider Reason for Visit Reason Onset Date Comments Imm/Inj 05/25/2013 Shingles vaccine Encounter Details Date Type Department Care Team Description 05/25/2013 Telephone [facility], Primary Edison Tam Imm/Inj ([facility] vaccine) 3rd Floor, Clinic [address] [place] [id number] [place] [address] [place], [place] (Work) [phone] Social History Tobacco Use Types Packs/Day Years Used Date Former Smoker 1 18 Smokeless Tobacco: Former User Q uit: 09/20/1991 Alcohol Use Standard Drinks/Week Comments No 0 (1 standard drink = 0.6 oz pure alcoho l) Sex Assigned at Date Recorded Not on file documented as of this encounter Miscellaneous Notes Telephone Encounter - Cyn Mensah LPN - 05/27/2013 9:02 AM CDT Maria E advised to speak to rheumatology for shingles vaccine. Patient verbalizes understanding. Cyn Mensah LPN Telephone Encounter - Edison Tam MD - 05/25/2013 5:51 PM CDT I am unable to address this issue as I am away from the office until 06/08/13. She should check with her wound nurse. Best wishes, Edison Tam Telephone Encounter - Cyn Mensah LPN - 05/25/2013 3:48 PM CDT Message copied by CYN MENSAH on SatMay 25, 2013 3:48 PM ------ Message from: MONA WARE Created: SatMay 25, 2013 3:22 PM Regarding: Call pharmacist - pt waiting Contact: Herminio is a pharmacist and they have a question regarding the pts Rx. The pt is currently waiting atthe pharmacy. Call back number is [phone]. AG documented in this encounter Plan of Treatment Not on filedocumented as of this encounter Visit Diagnoses Not on filedocumented in this encounter Care Teams Controlled [employer]mosp[employer] Brazer Relationship Specialty Start Date End Date Edison Tam MD PCP - General Family Practice 09/21/11 07/22/14 [address] [facility] 4 [place] [address] documented as of this encounter
--- OUTSIDE RECORDS SUMMARY | 2021-10-24 12:03 | XMS_ITS | Encounter Summary ---
:1955 Author Organization [place] Address [address] [place] [address] Care Team Providers Name Role Phone Edison Tam MD Primary Care Provider Encounter Details Date Type Department Care Team Description 05/20/2013 Radiant Appointment [facility] (low back pain) (Primary Dx); Center Sacroiliac joint pain [facility] 1st Floor, Clinic [address]D [place], [place] [address] Social History Tobacco Use Types [...] Comme nts MR LUMBAR SPINE W/O Routine 05/20/2013 11:55 AM LBP (low back pain) Results for this & W CONTRAST CDT Sacroiliac joint procedure a re in pain the results section. documented in this encounter Results MR Lumbar Spine w/o & w Contrast (05/20/2013 11:55 AM CDT) Anatomical Region Laterality Modality Spine, SUBRAD MR MSK, UMP MR SPINE Magne tic Resonance Specimen (Source) Anatomical Location Collection Method / Collectio n Time Received Time / Laterality Volume Impressions 05/21/2013 9:08 AM CDT Impression: 1. Moderate multilevel degenerative hopson ges in the lumbar spine as described above, including mild spinal c anal narrowing at L2-3 and L3-4. Moderate to severe left and mild t o moderate right neuroforaminal narrowing at L3-4. 2. 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 3. Edema and enhancement around the left L3-4 facet consistent with active arthropathy. 4. Degenerative endplate changes at L3-L 4 with edema and associated enhancement. I have personally reviewed the examinati on and initial interpretation and I agree with the findings. ELDER LEO MD Narrative 05/21/2013 9:08 AM CDT MRI of the Lumbar Spine without and with contrast History: Low back nerve root encroachmen t. Lumbago. Comparison: CT 04/02/2013. Technique: Sagittal T1-weighted and T2-w eighted and axial T2-weighted images of the lumbar spine were obtained without intravenous contrast. Post intravenous contrast using gadolini um axial and sagittal T1-weighted images were obtained with fa t saturation. Contrast: 7.5 mm gadavist. Findings: There are 5 lumbar-type verteb junior assumed for the purposes of this dictation. ??The tip of the conu s medullaris is at T12-L1. ??The lumbar vertebral column appears normally aligned. Severe disc height narrowing at L4-L5. There are degenerati ve endplate changes seen at L3-L4 with associated edema and correspo nding enhancement at this level. There is mild edema and enhanceme nt around the left L3-4 facet. On a level by level basis: L1-2: Right paracentral disc bulge. No s cece canal stenosis. Mild right neural foraminal narrowing. Left n eural foramen is patent. L2-3: Posterior disc bulge, asymmetric t o the left, effacing the left lateral recess with mild spinal canal na rrowing and posterior displacement of the descending left L3 n erve root. Mild left neuroforaminal narrowing. Right neural f oramen is patent. L3-4: Laminectomy changes. Mild disc spa ce narrowing and reactive endplate changes with edema. Moderate po sterior disc bulge with mild spinal canal narrowing. Moderate to david re left and mild to moderate right neural foraminal narrowing. L4-5: Laminectomy changes. Severe disc s pace narrowing. Circumferential disc osteophyte complex and mild bilateral facet hypertrophy. No spinal canal stenosis. M ild to moderate bilateral neuroforaminal narrowing. L5-S1: Pars defects bilaterally at L5. N o significant spondylolisthesis. Mild bilateral facet hypertrophy. No significant spinal canal or foraminal stenosis. No abnormal enhancement in the spinal ca nal. Procedure Note Kenny Steward MD / Ariel Leo MD - 05/21/2013 MRI of the Lumbar Spine without and with contrast History: Low back nerve root encroachmen t. Lumbago. Comparison: CT 04/02/2013. Technique: Sagittal T1-weighted and T2-w eighted and axial T2-weighted images of the lumbar spine were obtained without intravenous contrast. Post intravenous contrast using gadolini um axial and sagittal T1-weighted images were obtained with fa t saturation. Contrast: 7.5 mm gadavist. Findings: There are 5 lumbar-type verteb junior assumed for the purposes of this dictation. The tip of the conus medullaris is at T12-L1. The lumbar vertebral column appears normally aligned. Severe disc height narrowing at L4-L5. There are degenerati ve endplate changes seen at L3-L4 with associated edema and correspo nding enhancement at this level. There is mild edema and enhanceme nt around the left L3-4 facet. On a level by level basis: L1-2: Right paracentral disc bulge. No s cece canal stenosis. Mild right neural foraminal narrowing. Left n eural foramen is patent. L2-3: Posterior disc bulge, asymmetric t o the left, effacing the left lateral recess with mild spinal canal na rrowing and posterior displacement of the descending left L3 n erve root. Mild left neuroforaminal narrowing. Right neural f oramen is patent. L3-4: Laminectomy changes. Mild disc spa ce narrowing and reactive endplate changes with edema. Moderate po sterior disc bulge with mild spinal canal narrowing. Moderate to david re left and mild to moderate right neural foraminal narrowing. L4-5: Laminectomy changes. Severe disc s pace narrowing. Circumferential disc osteophyte complex and mild bilateral facet hypertrophy. No spinal canal stenosis. M ild to moderate bilateral neuroforaminal narrowing. L5-S1: Pars defects bilaterally at L5. N o significant spondylolisthesis. Mild bilateral facet hypertrophy. No significant spinal canal or foraminal stenosis. No abnormal enhancement in the spinal ca nal. IMPRESSION Impression: 1. Moderate multilevel degenerative hopson ges in the lumbar spine as described above, including mild spinal c anal narrowing at L2-3 and L3-4. Moderate to severe left and mild t o moderate right neuroforaminal narrowing at L3-4. 2. 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 3. Edema and enhancement around the left L3-4 facet consistent with active arthropathy. 4. Degenerative endplate changes at L3-L 4 with edema and associated enhancement. I have personally reviewed the examinati on and initial interpretation and I agree with the findings. ELDER LEO MD Nabor Villa MD IMG MRI ORDERABLES documented in this encounter Visit Diagnoses Diagnosis LBP (low back pain) - Primary Lumbago Sacroiliac joint pain Disorders of sacrum documented in this encounter Administered Medications Inactive Administered Medications - up to 3 most recent administrations Medication Order MAR Action Action Date Dose Rate Site gadobutrol (GADAVIST) Given 05/20/2013 11:45 AM CDT 7.5 mLs Left Arm injection 7.5 mL 7.5 mL, Intravenous, ONCE, On Sat05/20/13 at 1145, For 1 dose documented in this encounter Care Teams Astrophysics Teacher Relationship Specialty Start Date End Date Edison Tam MD PCP - General Family Practice 09/21/11 07/22/14 909 [facility] 4 [place] [address] documented as of this encounter
--- OUTSIDE RECORDS SUMMARY | 2021-10-24 12:03 | XMS_ITS | Encounter Summary ---
:1955 Author Organization [place] Address [facility] [place] [address] Care Team Providers Name Role Phone Edison Tam MD Primary Care Provider Encounter Details Date Type Department Care Team Description 04/27/2013 Orders Only Orthopa[facility] Clinic Marisol Hathaway Finger laceration, [place] MD Patricia subsequent encounter [facility] (Primary Dx) 1st Floor, [address] [facility] [address] [place] [address] [place], [place] [phone] (Wo rk) Social History Tobacco Use Types [...] as of this encounter Visit Diagnoses Diagnosis Finger laceration, subsequent encounter - Primary documented in this encounter Care Teams Resourcing Consultant Relationship Specialty Start Date End Date Eidson Tam MD PCP - General Family Practice 09/21/11 07/22/[address] [id number] documented as of this encounter
--- OUTSIDE RECORDS SUMMARY | 2021-10-24 12:03 | XMS_ITS | Encounter Summary ---
:1955 Author Organization [place] Address [facility] [place] [address] Care Team Providers Name Role Phone Edison Tam MD Primary Care Provider Encounter Details Date Type Department Care Team Description 04/21/2013 Radiant Appointment Outpatient Interventional [facility] o[facility] Low back pain and Diagnostic [facility] [address],Cl[facility] [address] 516 [facility] [place] 1750 [facility] 88 [place], [place] [phone] Social History Tobacco Use Types Packs/Day Years [...] Name Priority Date/Time Associated Comments Diagnosis XR SACROILIAC Routine 04/21/2013 1:04 PM Low back pain Results for this THERAPEUTIC INJECTION SPORTS INFORMATION DIRECTOR proced ure are in BILATERAL the results section. documented in this encounter Results XR Sacroiliac Joint Inj Bilateral (04/21/2013 1:04 PM SPORTS INFORMATION DIRECTOR) Specimen (Source) Anatomical Location Collection Method / Collectio n Time Received Time / Laterality Volume Narrative Chao Fisher - 10/08/2013 9:41 AM CDT This exam was marked as non-reportable because it will not be read by a radiologist or a [facility] non-radiologis t provider. Sabas Reyes MD IMG DIAGNOSTIC IMAGING ORD ERABLES documented in this encounter Visit Diagnoses Diagnosis Low back pain Lumbago documented in this encounter Administered Medications Inactive Administered Medications - up to 3 most recent administrations Medication Order MAR Action Action Date Dose Rate Site iohexol (OMNIPAQUE) 300 mg/mL Given 04/21/2013 1:00 PM SPORTS INFORMATION DIRECTOR 10 mL s injection 10 mL 10 mL, Intravenous, ONCE, On Sat04/21/13 at 1300, For 1 dose documented in this encounter Care Teams Residential Pest Control Technician Relationship Specialty Start Date End Date Edison Tam MD PCP - General Family Practice 09/21/11 07/22/14 909 [facility] 4 [place] [address] documented as of this encounter
--- OUTSIDE RECORDS SUMMARY | 2021-10-24 12:03 | XMS_ITS | Encounter Summary ---
:1955 Author Organization [place] Address [facility] [place] [address] Care Team Providers Name Role Phone Edison Tam MD Primary Care Provider Encounter Details Date Type Department Care Team Description 04/30/2013 Orders Only Orthopaedic Clinic Marisol Hathaway Finger laceration, [place] MD Patricia subsequent encounter [facility] (Primary Dx) 1st Floor, [address] [facility] [address] [place] [address] E [address] [place], [place] [phone] (Wo rk) Social History Tobacco Use Types [...] Primary documented in this encounter Care Teams Beam Builder Helper Relationship Specialty Start Date End Date Edison Tam MD PCP - General Family Practice 09/21/11 07/22/[address] [id number] documented as of this encounter
--- OUTSIDE RECORDS SUMMARY | 2021-10-24 12:03 | XMS_ITS | Encounter Summary ---
:1955 Author Organization [place] Address [address] [place] [address] Care Team Providers Name Role Phone Edison Tam MD Primary Care Provider Reason for Visit Reason Onset Date Comments Clinic Care Coordination - Follow-up 04/15/2013 Hyd rocortisone Encounter Details Date Type Department Care Team Description 04/15/2013 Telephone Medicine GI - 1E Charan Salazar MD Clinic Care [address] Coordination - Building [place], [place] Follow-up 1st Floor, [facility] 1E [address] (Hydrocortisone) [address] [place] [address] [place] [address] Social History Tobacco Use Types Packs/Day Years Used Date Former Smoker 1 18 Smokeless Tobacco: Former User Q uit: 09/20/1991 Alcohol Use Standard Drinks/Week Comments No 0 (1 standard drink = 0.6 oz pure alcoho l) Sex Assigned at Date Recorded Not on file documented as of this encounter Miscellaneous Notes Telephone Encounter - Rebekah Mason RN - 04/15/2013 4:14 PM CST I spoke to Dr.Van Squires's nurse (Mazin) and confirmed an order for pt's hydrocortisone 100 mg IV prior to surgery. TRIFIER OPERATOR documented in this encounter Plan of Treatment Not on filedocumented as of this encounter Visit Diagnoses Not on filedocumented in this encounter Care Teams Client Technologies Specialist Relationship Specialty Start Date End Date Edison Tam MD PCP - General Family Practice 09/21/11 07/22/14 909 [facility] 4 [place] [address] documented as of this encounter
--- OUTSIDE RECORDS SUMMARY | 2021-10-24 12:03 | XMS_ITS | Encounter Summary ---
:1955 Author Organization [place] Address [facility] [place] [address] Care Team Providers Name Role Phone Edison Olivas MD Primary Care Provider Reason for Visit Auth/Cert - Closed Specialty Diagnoses / Procedures Referred By Contact Refer red To Contact Surgery Diagnoses Left Index Nerve Laceration Ur Sports Periop Procedures REPAIR NERVE MICROSCOPIC UPPER EXTREMITY [address] [id number] Phone: Referral ID Status Reason Start Date Expiration Date Visits Requ ested Visits Authorized [id number] Closed 1 1 Encounter Details Date Type Department Care Team Description 04/16/2013 Anesthesia Event UR SPORTS PERIOP Marsha Laurent MD XXX RESIGNED XXX [address] [place] [address] [address] [facility] Urszula Springer MD [facility] [address] [address] [place] [address] Anesthesia Record Procedure Summary Procedure Name Responsible Anesthesia Start Anesthesia Stop Time Anesthesiologist Time Left Index Finger Marsha Laurent MD 04/16/13 1127 08/22 1248 Digital Nerve Repair with Nuerogen tibe (Left Arm) Events Date Time Event Comment 04/16/2013 1127 An Start 1135 An Start Data 1136 MD Present 1137 An Induction Uneventfut pre-o xygenated IV induction. 1139 An LMA Uneventful preox ygenated IV induction, atraumatic LMA insert. Bila teral breath sounds. 1153 AN INCISION 1153 An Tourn Inflated 250 mm hg left arm 1214 MD Present 1220 An Tourn Deflated 1227 An Emergence 1243 LMA Removed LMA removed pt c olor pink spontaneous respirations 1243 an stop data 1248 An Stop Electronically s igned by VASYL WHITAKER on April 16, 2013 12:48 PM Name Total midazolam 1 mg/mL 2 mg fentaNYL 50 mcg/mL 100 mcg lidocaine 2% 80 mg propofol 10 mg/mL 150 mg ondansetron 2 mg/mL 4 mg phenylephrine 100 mcg/ml 500 mcg clindamycin 900 mg/50mL 900 mg acetaminophen IV 10 mg/ml 1,000 mg propofol infusion (mcg/kg/min) 182.88 mg lactated ringers infusion 850 mL Agents Name O2 N2O Air Blood No blood administrations on file. Lines, Drains, and Airways Type Details Placement Removal Incision/Surgical Site 04/16/13; 1226; Left; 04/16/13 1226 by Hand Serg Kaba, RN Peripheral IV 07/10/12; 1300; 22 G, 07/10/12 1300 by 04/22/17 1326 by 1 3/4 inch; [facility] Anterior; Upper RN M, RN forearm; Median cubital vein (antecubital fossa); Chlorhexidine; Injectable; 1; Tolerated well; MRI Peripheral IV 04/16/13; 1120; 22 G; 04/16/13 1120 by 04/16/13 1510 by Right; Lower forearm; Jenniffer Mattson, RN iRto Herrera, Chlorhexidine; RN Injectable; Tolerated well Retired Non-Surgical 04/16/13; 1139; mm; 04/16/13 1139 by 1243 by Airway laryngeal mask airway; Vasyl Whitaker, Vasyl Whitaker, center of mouth, PERSONNEL PSYCHOLOGIST APPOINTMENT SPECIALIST PERSONNEL PSYCHOLOGIST APPOINTMENT SPECIALIST midline; Equal, clear and bilateral; End of therapy documented in this encounter Social History Tobacco Use Types Packs/Day Years Used Date Former Smoker 1 18 Smokeless Tobacco: Former User Q uit: 09/20/1991 Alcohol Use Standard Drinks/Week Comments No 0 (1 standard drink = 0.6 oz pure alcoho l) Sex Assigned at Date Recorded Not on file documented as of this encounter OR Notes Anesthesia Postprocedure Evaluation - Marsha Laurent MD - 04/16/2013 1:54 PM CST Anesthesia Post-Evaluation Note Patient: Maria E Coley Patient location: PACU Procedure(s) Performed: Procedure(s) with comments: REPAIR NERVE MICROSCOPIC UPPER EXTREMITY - Left Index Finger Digital Nerve Repair with Nuerogen tibe Anesthesia type: General, LMA Post Op Diagnosis: * No post-op diagnosis entered * No value filed. Patient Condition Respiratory Function (RR / SpO2 / Airway Patency): Satisfactory Cardiac Function (HR / Rhythm / BP): Satisfactory Mental Status: Satisfactory. Able to fully participate in evaluation Temperature: Satisfactory Pain Control: Satisfactory PONV: None Beta-Kevyn Therapy: None indicated Hydration Status: Satisfactory Last Vitals: Filed Vitals: 04/16/13 1300 04/16/13 1315 04/16/13 1330 BP: 100/51 94/56 108/63 Temp: 36.9 ??C (98.4 ??F) Resp: 8 9 15 SpO2: 99% 99% 96% Additional Comments: Pt doing well EXPERT Anesthesia Preprocedure Evaluation - Marsha Laurent MD - 04/16/2013 8:40 AM CST Anesthesia Evaluation . Pt has had prior anesthetic. Type: General No history of anesthetic complications ROS/MED HX ENT/Pulmonary: (+)tobacco use, Past use , . . (-) asthma Neurologic: - neg neurologic ROS (+)dementia, (-) seizures, CVA and TIA Cardiovascular: - neg cardiovascular ROS (+) . : . . . :. . Previous cardiac testing date:results:date: results:ECG reviewed date: results: date: results: (-) hypertension, CAD, arrhythmias, irregular heartbeat/palpitations and valvular problems/murmurs METS/Exercise Tolerance: >4 METS Hematologic: - neg hematologic ROS (-) history of blood clots and anemia Musculoskeletal: (+) arthritis, - GI/Hepatic: (+) Inflammatory bowel disease, (-) GERD and liver disease Renal/Genitourinary: (-) renal disease Endo: (+) thyroid problem hypothyroidism, Chronic steroid usage for IB Disorder . (-) Type I DM and Type II DM Psychiatric: (+) psychiatric history anxiety and depression Infectious Disease: Malignancy: Other: Physical Exam Normal systems: cardiovascular, pulmonary and dental Airway Mallampati: I TM distance: >3 FB Neck ROM: full Dental Cardiovascular Rhythm and rate: regular and normal Pulmonary breath sounds clear to auscultation Anesthesia Plan ASA Score: 3 . Plan for General and LMA - with Intravenous and Propofol induction.Maintenance will be Balanced. Routine analgesia and antiemetics to be used for post-operative care. Anesthetic plan, risks, benefits and alternatives discussed with: patient or passenger service representative. History & Physical Review History and physical reviewed; no interval change. ANESTHESIA PREOP EVALUATION NPO Status: > 6 hrs Procedure: REPAIR NERVE MICROSCOPIC UPPER EXTREMITY (Left Arm) HPI: 57 yo woman with history of Crohn's (prednisone), fibromyalgia, lupus, narcotic/nicotine dependence (remission) and arthritis undergoing above procedure. PMHx/PSHx/ROS: PAST MEDICAL HISTORY: Past Medical History Diagnosis [...] PAST SURGICAL HISTORY: Past Surgical History Procedure Date ??? Appendectomy open 1985 ??? Left [...] Surgeon: Charan Salazar MD; Location: [facility] FAMILY HISTORY: Family History Problem Relation Age [...] ??? Colon Polyps No family hx of Past Anes Hx: No personal or family h/o anesthesia problems Soc Hx: Tobacco: past EtOH: no Allergies: Allergies Allergen Reactions ??? Humira Rash [...] Profound lethargy ??? Tramadol Itching and Rash Meds: No prescriptions prior to admission No current facility-administered medications for this visit. Current Outpatient Prescriptions Medication Sig ??? cholecalciferol (VITAMIN D) 1000 UNIT tablet Take 1 tablet (1,000 Units) by mouth daily Discontinue Vitamin D [address]17 ??? rOPINIRole (REQUIP) 1 MG tablet Take 1 tablet (1 mg) by mouth At Bedtime May take 1/2 tab additional prn once daily ??? Potassium Chloride CR 8 MEQ CPCR Take 16 mEq by mouth daily NEED APPT WITH DR. OLIVAS FOR REFILLS. ??? propranolol (INDERAL) 20 MG tablet Take 1 tablet (20 mg) by mouth daily ??? buPROPion (WELLBUTRIN SR) 150 MG 12 hr tablet Take 150 mg by mouth 2 times daily ??? calcium carbonate (TUMS) 500 MG chewable tablet Take 1 chew tab by mouth as needed. ??? multivitamin (THERA-PLUS) LIQD Take 5 mLs by mouth daily. ??? Carboxymethylcellulose Sodium (REFRESH TEARS OP) Apply to eye. ??? fluorouracil (EFUDEX) 5 % cream Apply topically to bilateral forearms and hands twice daily ??? cyanocobalamin 1000 MCG/ML injection Inject 1 mL into the muscle every 30 days. ??? guaiFENesin (MUCINEX) 600 MG 12 hr tablet Take 600 mg by mouth 2 times daily as needed. ??? Calcium Citrate-Vitamin D (CITRACAL + D PO) Take 1 tablet by mouth 2 times daily. ??? predniSONE (DELTASONE) 5 MG tablet (total daily dose 7 mg/day) ??? predniSONE (DELTASONE) 1 MG tablet Take 2 tablets by mouth daily With the 5mg tab for total of 7mg daily ??? Lactobacillus (ACIDOPHILUS PO) Take 1 capsule by mouth daily ??? acetaminophen (TYLENOL) 500 MG tablet Take 500-1,000 mg by mouth every 8 hours as needed ??? Levothyroxine Sodium 50 MCG CAPS Take 1 tablet by mouth daily ??? ALPRAZolam (XANAX) 0.5 MG tablet Take 0.5 mg by mouth At Bedtime ??? ORDER FOR DME Injection Supplies for Vitamin B12: 3cc syringes w/ 27 gauge needles, 1 inch length ??? Menthol, Topical Analgesic, (ICY HOT EX) Externally apply topically. Patient uses Gel, Cream andPatch PRN Physical Exam: VS: T Data Unavailable, P Data Unavailable, BP Data Unavailable, R Data Unavailable, SpO2 Airway: MP I, TM>3FB, Neck full ROM Dentition: no loose teeth Heart: RRR Lungs: CTAB BMP: NA 137 04/02/2013 POTASSIUM 3.7 04/02/2013 CHLORIDE 102 04/02/2013 DAVID 9.1 04/02/2013 CO2 25 04/02/2013 BUN 13 04/02/2013 CR 0.84 04/02/2013 GLC 91 04/02/2013 CBC: WBC 8.2 04/02/2013 HGB 14.8 04/02/2013 HCT 45.0 04/02/2013 PLT 218 04/02/2013 Coags/Type and Screen INR 0.96 01/28/2013 No results found for this basename: PT Type and Screen: Assessment/Plan: - ASA 3 - GA, LMA with standard ASA monitors, IV induction, balanced anesthetic - PIV - Antibiotics per surgery - PONV prophylaxis - Blood products available, possible administration discussed with patient Urszula Springer M.D. CA-3 04/16/2013 8:40 AM I have personally seen the patient, personally examined the patient, personally reviewed the chart. I have reviewed the note/plan of the resident. I agree with the note/plan and have made changes as necessary. Marsha Jones MD EXPERT documented in this encounter Miscellaneous Notes Anesthesia Care Transfer Note - Vasyl Whitaker APRN CRNA - 04/16/2013 12:48 PM CST Anesthesia Care Transfer Note Patient: Maria E Coley Transferred to: PACU Patient vital signs: stable Airway: none EXPERT documented in this encounter Plan of Treatment Not on filedocumented as of this encounter Visit Diagnoses Not on filedocumented in this encounter Administered Medications Inactive Administered Medications - up to 3 most recent administrations Medication Order MAR Action Action Date Dose Rate Site acetaminophen (OFIRMEV) 10 Given 04/16/2013 11:48 AM TAX EXPERT 1,000 m g mg/mL infusion Intravenous, PRN, mild pain, fever, Administer over 15 Minutes, Starting on Tish 04/16/13 at 1148, Maximum dose of acetaminophen is 4000 mg from all sources., Anesthesia Intra-op clindamycin (CLEOCIN) IVPB Given 04/16/2013 11:33 AM TAX EXPERT 900 mg Routine, PRN, Starting on Tish 04/16/13 at 1133, Anesthesia Intra-op fentaNYL (SUBLIMAZE) injection Given 04/16/2013 11:53 AM TAX EXPERT 50 mcg PRN, moderate to severe pain, Starting on Tish 04/16/13 at 1137, Anesthesia Intra-op Given 04/16/2013 11:37 AM TAX EXPERT 50 mcg lactated ringers infusion New Bag 04/16/2013 1:42 PM TAX EXPERT at 75-100 mL/hr, Intravenous, CONTINUOUS, UNLESS otherwise indicated., Pre-procedure, Starting on Tish 04/16/13 at 1015, Until Tish 04/16/13 at 1401 New Bag 04/16/2013 11:29 AM TAX EXPERT New Bag 04/16/2013 11:15 AM TAX EXPERT mL lidocaine 2% Given 04/16/2013 11:37 AM TAX EXPERT 80 mg PRN, Starting on Tish 04/16/13 at 1137, Anesthesia Intra-op midazolam (VERSED) injection Given 04/16/2013 11:27 AM TAX EXPERT 2 mg PRN, anxiety, Starting on Tish 04/16/13 at 1127, Anesthesia Intra-op ondansetron (ZOFRAN) injection Given 04/16/2013 12:37 PM TAX EXPERT 4 mg PRN, nausea, vomiting, Administer over 2-5 Minutes, Starting on Tish 04/16/13 at 1237, Anesthesia Intra-op phenylephrine (CECI-SYNEPHRINE) injection Given 04/16/2013 12:28 PM TAX EXPERT 100 mcg dilution PRN, Starting on Tish 04/16/13 at 1145, Anesthesia Intra-op Given 04/16/2013 12:23 PM TAX EXPERT 100 mcg Given 04/16/2013 12:11 PM TAX EXPERT 100 mcg propofol (DIPRIVAN) infusion Rate/Dose 04/16/2013 100 mcg/kg/min 30.5 mL/hr Intravenous, CONTINUOUS PRN, Change 11:45 AM TAX EXPERT Starting on Tish 04/16/13 at 1141, Range: 5-75mcg/kg/min Titrate by 5-10 mcg/kg/min every 5 minutes., Anesthesia Intra-op New Bag 04/16/2013 11:41 AM TAX EXPERT 150 mcg/kg/min 45.7 mL/hr propofol (DIPRIVAN) injection Given 04/16/2013 11:37 AM TAX EXPERT 150 mg PRN, Starting on Tish 04/16/13 at 1137, Anesthesia Intra-op documented in this encounter Care Teams Drum Barker Operator Relationship Specialty Start Date End Date Edison Olivas MD PCP - General Family Practice 09/21/11 07/22/[address] [address] documented as of this encounter
--- OUTSIDE RECORDS SUMMARY | 2021-10-24 12:03 | XMS_ITS | Encounter Summary ---
:1955 Author Organization [place] Address [address] [place] [id number] Care Team Providers Name Role Phone Edison Tam MD Primary Care Provider Reason for Visit Reason Onset Date Comments Refill Request 05/18/2013 Encounter Details Date Type Department Care Team Description 05/18/2013 Refill Medicine GI - 1E Charan Salazar MD Refill Request [id number] [place] [address] Floor, [facility] [address] [place] [address] [place] [phone] Social History Tobacco Use Types Packs/Day Years Used Date Former Smoker 1 18 Smokeless Tobacco: Former User Q uit: 09/20/1991 Alcohol Use Standard Drinks/Week Comments No 0 (1 standard drink = 0.6 oz pure alcoho l) Sex Assigned at Date Recorded Not on file documented as of this encounter Miscellaneous Notes Telephone Encounter - Lorrie Fox LPN - 05/18/2013 1:24 PM CDT Received refill request from [facility] in [place] for Prednisone (7mg daily). Will set up and send to Dr. Salazar for approval and signature. 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
--- OUTSIDE RECORDS SUMMARY | 2021-10-24 12:03 | XMS_ITS | Encounter Summary ---
:1955 Author Organization [place] Address [address] [facility] [place] [address] Care Team Providers Name Role Phone Edison Tam MD Primary Care Provider Reason for Visit Reason Comments RECHECK Left index finger digital ne rve repair with loupe magnification and suturing and NeuraGen tube augmentati on (2 mm x 1 cm). DOS 04/19/13 Encounter Details Date Type Department Care Team Description 05/14/2013 [facility] Visit [facility] Ivette Hathaway Finger laceration, Aline MD Patricia subsequent Rehabilitation [facility] (Primary 1st Floor, [address] [facility] D[facility]) [address] [place] [address] [address] [place], [place] E [address] [place], [place] [phone] (Wo rk) Social History Tobacco Use Types Packs/Day Years Used Date Former Smoker 1 18 Smokeless Tobacco: Former User Q uit: 09/20/1991 Alcohol Use Standard Drinks/Week Comments No 0 (1 standard drink = 0.6 oz pure alcoho l) Sex Assigned at Date Recorded Not on file documented as of this encounter Progress Notes Ivette Hathaway MD - 05/14/2013 5:36 PM CST HISTORY OF PRESENT ILLNESS: Patient is a 57-year-old right-hand dominant female who is now 1 month status post repair of left index finger ulnar digital nerve. Her injury was sustained while slicing vivienne. She reports that she has been doing fairly well over the past month. She thinks that she has been moving her finger too much and this is the reason that and she is stiff and she would like to investigate getting more rigid and comprehensive splinting for the index finger. PHYSICAL EXAMINATION: In no acute distress, alert and oriented, pleasant and appropriate, nonlaboredbreathing. SKIN: Her incisions are all well healed. Some of her sutures are still in place but there is no signof infection. There are no open wounds, no drainage. VASCULAR: The left index finger and the remainder of the hand are warm and well perfused with brisk capillary refill. LYMPHATICS: There is some mild swelling of the index finger but no lymphedema and no other signs of lymphatic pathology. MUSCULOSKELETAL: There is about a 2.5 cm tip to palm distance of the index finger. She is able to get the middle, ring and small fingers down into the palm. NEURO: She has 2-point discrimination of 5 mm in the radial nerve distribution of the index finger. In the ulnar distribution, it is 9 mm overlying the volar aspect of the distal phalanx and she does seem to have a Tinel's at or just proximal to the DIP joint. IMAGING: None. ASSESSMENT: 1 month status post left index finger ulnar digital nerve repair. PLAN: We had a long discussion with the patient regarding ongoing plan of care. At this point, we have strongly encouraged her to discontinue the use of her splints. In fact, she has allowed us to throw these in the trash today. We will have her see the certified hand therapist today to be more aggressively educated in index finger range of motion. We will look forward to seeing her back in 4-6 weeksfor repeat evaluation. All her questions were answered. She is in full agreement with the plan of care. Patient was seen and evaluated with Dr. Ivette Hathaway. Dictated by Indra Merrill MD, Hand Surgery Fellow I have personally examined this patient and have reviewed the clinical presentation and progress note with the fellow. I agree with the treatment plan as outlined. The plan was formulated with the fellow on the day of the fellow's dictation. IVETTE HATHAWAY MD As dictated by INDRA MERRILL MD MT: BRANDI Name: MARIA E COLEY MRN: [id number] Account: [id number] : 1955 Service Date: 05/14/2013 Document: [id number] documented in this encounter Nursing Notes 05/14/2013 1:20 PM CST >> [facility] Kang, [facility] May 14, 2013 1:38 PM Reason For Visit: Patient presents with: RECHECK - Left index finger digital nerve repair with loupe magnification and suturing and NeuraGentube augmentation (2 mm x 1 cm). DOS 04/19/13 Pain Assessment Patient Currently in Pain: Yes Primary Pain Location: Finger (Comment which one) (index) Pain Orientation: Left Other Pain Locations: long finger stiffness Pain Descriptors: (stiffness) Alleviating Factors: (brace, massage) Hand Dominance Evaluation Hand Dominance: Right Current Outpatient Prescriptions: cyanocobalamin 1000 MCG/ML injection ORDER FOR DME venlafaxine (EFFEXOR-XR) 75 MG 24 hr capsule predniSONE (DELTASONE) 5 MG tablet predniSONE (DELTASONE) 1 MG tablet Lactobacillus (ACIDOPHILUS PO) cholecalciferol (VITAMIN D) 1000 UNIT tablet acetaminophen (TYLENOL) 500 MG tablet Levothyroxine Sodium 50 MCG CAPS rOPINIRole (REQUIP) 1 MG tablet Potassium Chloride CR 8 MEQ CPCR propranolol (INDERAL) 20 MG tablet buPROPion (WELLBUTRIN SR) 150 MG 12 hr tablet ALPRAZolam (XANAX) 0.5 MG tablet calcium carbonate (TUMS) 500 MG chewable tablet multivitamin (THERA-PLUS) LIQD Carboxymethylcellulose Sodium (REFRESH TEARS OP) fluorouracil (EFUDEX) 5 % cream guaiFENesin (MUCINEX) 600 MG 12 hr tablet Menthol, Topical Analgesic, (ICY HOT EX) Calcium Citrate-Vitamin D (CITRACAL + D PO) -- Humira -- Rash -- Ibuprofen Sodium -- GI Disturbance -- Loratadine -- Other (See Comments) -- Dry mouth, rapid heart beat -- Lyrica -- Other (See Comments) -- Patient feels intoxicated on medication -- No Clinical Screening - See Comments -- Use Caution with Pain Medication. Short term OK -- Remicade (Infliximab Injection) -- Doesn't work for pt -- Demerol (Meperidine) -- Rash -- Morphine Hcl -- Rash -- IV allergy -- Penicillin G -- Rash -- Childhood reaction -- Sulfa Drugs -- Fatigue -- Profound lethargy -- Tramadol -- Itching and Rash Alyssa Kang ATC documented in this encounter Plan of Treatment Not on filedocumented as of this encounter Visit Diagnoses Diagnosis Finger laceration, subsequent encounter - Primary documented in this encounter Care Teams Wire Weaving Loom Setter Relationship Specialty Start Date End Date Edison Tam MD PCP - General Family Practice 09/21/11 07/22/14 909 [facility] [address] [place] [address] documented as of this encounter
--- OUTSIDE RECORDS SUMMARY | 2021-10-24 12:03 | XMS_ITS | Encounter Summary ---
:1955 Author Organization [place] Address Formerly [facility]0 [facility] [place] [address] Care Team Providers Name Role Phone Edison Tam MD Primary Care Provider Encounter Details Date Type Department Care Team Description 04/21/2013 Radiology Outpatient [facility] Sacro-iliac p ain (Primary Dx); Injection Office Interventional and ez, Sabas, Chron ic pain syndrome Visit Diagnostic Center MD Gomes [address],Clinic [address] [place] [facility] [address] [place], [place] [address] [place] [address] [phone] Social History Tobacco Use Types Packs/Day Years Used Date Former Smoker 1 18 Smokeless Tobacco: Former User Q uit: 09/20/1991 Alcohol Use Standard Drinks/Week Comments No 0 (1 standard drink = 0.6 oz pure alcoho l) Sex Assigned at Date Recorded Not on file documented as of this encounter Last Filed Vital Signs Vital Sign Reading Time Taken Comments Blood Pressure 112/63 04/21/2013 11:44 AM JUNIOR LINUX ADMINISTRATOR Pulse - - Temperature 37.1 ??C (98.8 ??F) 04/21/2013 10:50 AM JUNIOR LINUX ADMINISTRATOR Respiratory Rate 12 04/21/2013 10:50 AM JUNIOR LINUX ADMINISTRATOR Oxygen Saturation - - Inhaled Oxygen Concentration - - Weight - - Height - - Body Mass Index - - documented in this encounter Patient Instructions Patient InstructionsDeana Crum RN - 04/21/2013 11:39 AM CST Outpatient [facility] Procedure Discharge Instructions Nurse Line (Dr. Nelson): [phone] Appt line: [phone] Bilateral SI joint-steroid injection You may resume your normal diet Avoid strenuous activity for the first 24 hours Be cautious with walking as numbness and/or weakness in the lower extremities up to 6-8 hours may occur due to effect of local anesthetic If you received steroid injection, it may take several days for the steroid to start working and youmay see more effect from the procedure after 10-14 days You may resume your regular activities after 24 hours You may resume your regular medications after the procedure If you have diabetes, check your blood sugar more frequently than usual as your blood sugar may be higher than normal for 10-14 days following steroid injection. Contact your doctor who manages your diabetes if your blood sugar is higher than usual You may shower, however no swimming or tub baths or hot tubs for 24 hours following your procedure Mild to moderate increase in pain for one day or several days following the injection is not uncommon You may use ice packs 10-15 minutes three to four times a day at the injection site for comfort You may use anti-inflammatory medications (such as Ibuprofen or Aleve or Advil) or Tylenol for pain control if necessary unless contraindicated. If you experience any of the following, go to the emergency dept.(DO NOT DRIVE YOURSELF). -Fever over 100 degree F -Swelling, bleeding, redness, drainage, warmth at the injection site -Progressive weakness or numbness on your legs or arms -Loss of bowel or bladder function -Unusual headache that is not relieved by Tylenol -Unusual new onset of pain that is not improving OR LINUX ADMINISTRATOR documented in this encounter Progress Notes Sabas Reyes MD - 04/21/2013 11:38 AM CST [facility] Interventional Services Dr. Tam, Thank you for the referral. Below is the description of the procedure performed and images are available in PACS. The immediate post procedure benefit was 66%. Hopefully our collaboration will help Maria E Coley obtain the outcome you expect and a rapid functional rehabilitation. Please contact me if any questions or concerns . TrinoiallySabas M.D. [facility] PRE-PROCEDURE DIAGNOSIS: 1. Bilateral Sacroiliac joint dysfunction and pain (left worse than right) 2. Degenerative arthritis of the lumbar spine; degenerative spondylolisthesis L5-S1; s/p lumbar surgery POST-PROCEDURE DIAGNOSIS: Same as above PROCEDURE PERFORMED: BILATERAL SACROILIAC JOINT STEROID INJECTION; UNDER FLUOROSCOPIC GUIDANCE ANESTHESIA: Local COMPLICATIONS: None PERFORMED BY: Sabas Nelson M.D. INDICATIONS: Maria E Coley is a 57 year old female with history of bilateral sacroiliac joint pain and low back pain secondary to degenerative arthritis of the lumbar spine; degenerative spondylolisthesis L5-S1; s/p lumbar surgery, referred by Dr. Tam for a bilateral sacroiliac joint injection.?? The patient has been suffering from chronic pain on the low back, buttocks and posterior thighs affecting most regular activities of daily living and interfering with active rehabilitation modalities. She complains of numbness and tingling on the left thigh. The pain has been excruciating and previous treatments failed, including: physical therapy at and medication management. Sacroiliac injections on the other hand have provided significant benefit of up to 1-2 years. On today's physical exam: BP 94/57 Temp 98.8 ??F (37.1 ??C) (Oral) Resp 12. Musculoskeletal and neurological exam reveal tender bilateral SI joints with positive NINA and Gaenslen maneuvers; the pain is worse on the left. There are no neurological changes or deficits, despiteher complains of weakness and numbness. Imaging studies including the CT scan performed on 04-02-13 were reviewed and are consistent with the clinical findings. The CT scan report is as follows: Lumbar spine CT without contrast History: Left leg weakness numbness and back pain. Comparison: CT of the lumbar spine dated 09/12/2012 and 12/03/2011. Technique: Helical image data acquisition through the lumbar spine with axial, coronal and sagittal reconstructions. Images were reviewed in soft tissue and bone windows. Findings: 5 lumbar type vertebral bodies are assumed for purposes of this dictation. Mild convex right scoliosis. Grade 1 retrolisthesis of L3 on L4. Multilevel intervertebral disc height narrowing. Severe narrowing of the left lateral portion of the L3-L4 intervertebral disc. The L4-L5 intervertebral space is obliterated. Vertebral body heights are maintained. However, there are severe endplate degenerative changes with subchondral sclerosis, osteophytosis and cyst formation of the inferior L3 endplate, superior and inferior L4 endplates, and superior L5 endplate. Bilateral pars interarticularis defect of the L5 vertebrae. 1.2 cm hyperdense sclerotic focus in the right supra-acetabular region, which correlates with finding on pelvis plain film dated 11/19/2012, and likely represents a bone island. Increased reticular markings consistent with diffuse osteopenia. Paraspinal soft tissues are unremarkable. Findings on a level by level basis are as follows: L1-L2: Circumferential disc bulge neuroforaminal stenosis on the right. No significant spinal canal or neural foraminal narrowing. L2-L3: Circumferential disc bulge which indents the thecal sac with mild spinal canal stenosis. No significant neural foraminal narrowing. L3-L4: Circumferential disc bulge, which presses on the thecal sac, with loss of disc height posteriorly. Status post decompressive laminectomy. No significant spinal canal narrowing. Bilateral facet hypertrophy with mild to moderate bilateral neural foraminal stenosis. L4-L5: Severe disc height loss with reactive endplate changes. Status post decompressive laminectomy. No significant spinal canal narrowing. Moderate bilateral neural foraminal narrowing. L5-S1: Bilateral pars defects at L5. No significant spinal canal or neural foraminal stenosis. Result Impression: Impression: 1. Severe spondylosis of the lumbar spine worst at L3-L4 and L4-L5 as described above, not significantly changed from comparison. 2. Stable postsurgical changes of L3-L4 decompressive laminectomies. 3. Stable bilateral pars defect of L5. 4. Diffuse osteopenia. For the above reasons a bilateral sacroiliac joint steroid injection is recommended. Options, benefits and risks were discussed with the patient. The risks and potential complications include but are not limited to bleeding, infection, no pain relief, reaction to medications, numbness,weakness, seizure, stroke, paralysis, nerve injury, spinal cord injury, coma, . Questions were a nswered to her satisfaction and she agrees to proceed. Voluntary informed consent was obtained and signed PROCEDURE IN DETAIL: Pause for the cause protocol was performed. Identification of the most distal point of the bilateral SI joint was performed using C-arm imaging with a 15 degree rotation and 15 degree cephalic tilt to visualize the distal portion of the joint space. Skin marking was placed. Prepping and draping were performed in the usual sterile fashion. Lidocaine 1%, 5 cc, were then injected into the skin and underlying tissues to numb up the area. A 22-gauge 3-1/2-inch spinal needle was then used to approach the right SI joint at its most distal point. Once the capsule was traversed, Omnipaque 300, 0.2 cc were injected, adjustments were made to the needle and again Omnipaque was injected observing extravasation of the dye, the needle position was adjusted until adequate distribution of the contrast dye was observed. At this point, a solution of Dexamethasone 10 mg/mL (1 mL) and Bupivacaine 0.25 % (2 mL) was slowly injected. The exact same procedure was performed on the contralateral side. There were no complications, intermittent negative pressure did not provide any return. She vital signs remained stable. She was observed for 30 minutes following the procedure and was then discharged in good and stable condition with her side laster tack. Total fluoroscopy time was 121 seconds. MONITORING: Vital signs and cardiac monitoring was performed at all times (see nurse's notes). The patient was observed for 45 minutes following the procedure and was then discharged fully alert and oriented, in good and stable condition with her side laster tack. PAIN RESPONSE: At the time of discharge she describes improvement in pain from 6/10 down to 2-3/10. Sabas Nelson M.D. [facility] OR LINUX ADMINISTRATOR documented in this encounter Nursing Notes 04/21/2013 10:30 AM CST >> Deana Crum RN [place] Apr 21, 2013 11:54 AM Pt presented to DC today for Bilateral SI steroid inj.Med list and allergies were reviewed, patient filled out pain evaluation form. Consent by Dr. Nelson. Patient tolerated procedure well. She ratedher pain a 3 after the procedure. DC @ 1153 to meet her friend for a ride home. documented in this encounter Plan of Treatment Not on filedocumented as of this encounter Visit Diagnoses Diagnosis Sacro-iliac pain - Primary Disorders of sacrum Chronic pain syndrome documented in this encounter Care Teams Heavy Rail Train Operator Relationship Specialty Start Date End Date Edison Tam MD PCP - General Family Practice 09/21/11 07/22/[address] [address] documented as of this encounter
--- OUTSIDE RECORDS SUMMARY | 2021-10-24 12:03 | XMS_ITS | Encounter Summary ---
:1955 Author Organization [place] Address [facility]0 [facility] [address] Care Team Providers Name Role Phone Edison Tam MD Primary Care Provider Encounter Details Date Type Department Care Team Description 05/04/2013 Orders Only Orthopaedic Clinic Marisol Hathaway Finger laceration, [place] MD Patricia subsequent encounter Rehabilitation [facility] (Primary Dx) 1st Floor, [address] [facility] [address] [place] [address] [address] [address] [place], [place] [phone] (Wo rk) Social History Tobacco Use Types [...] Primary documented in this encounter Care Teams Cemetery Manager Relationship Specialty Start Date End Date Edison Tam MD PCP - General Family Practice 09/21/11 07/22/[address] [id number] documented as of this encounter
--- OUTSIDE RECORDS SUMMARY | 2021-10-24 12:03 | XMS_ITS | Encounter Summary ---
:1955 Author Organization [place] Address [address] [place] [address] Care Team Providers Name Role Phone Edison Tam MD Primary Care Provider Encounter Details Date Type Department Care Team Description 05/15/2013 Therapy Visit [facility] Ros Crowley, Finger stiffness, left (Primary Dx); Orthopaedics Hand OT Mechanical problems with limbs; [facility] Pain in limb; [address] [place] [address] THERAPY CTR Other postprocedural status; [address] [place] [address] Finger laceration, subsequent encounter [address] [place] [address] [phone] Social History Tobacco Use Types Packs/Day Years Used Date Former Smoker 1 18 Smokeless Tobacco: Former User Q uit: 09/20/1991 Alcohol Use Standard Drinks/Week Comments No 0 (1 standard drink = 0.6 oz pure alcoho l) Sex Assigned at Date Recorded Not on file documented as of this encounter Progress Notes Ros Crowley, OT - 05/15/2013 7:16 AM CST Hand Therapy Soap Note Current Date: 05/15/2013 Referring MD: Dr. Hathaway Return to MD: 07/16/2013 Procedure: Left index finger digital nerve repair with loupe magnification and suturing and NeuraGentube augmentation (2 mm x 1 cm). DOS: 04/16/2013 Post: 4w 1d Patient reports symptoms of pain, stiffness/loss of [...] Deficits as reported by patient: bathing, dressing, step finisher, driving, sports/recreation, pushing/pulling, lifting/carrying, work, sleeping, reaching S: Subjective changes as noted by patient: The finger is so much better! Its moving better, pain is lower and the sensation is returning. I saw the MD yesterday and she said that I don't need to wear my splint anymore, and she is very impressed with how the finger is doing! Functional changes noted by patient: Improvement in Self Care Tasks (dressing, eating, bathing, hygiene/toileting) and Network Admin Response to previous treatment: good Patient has noted adverse reaction to: None O: Pain Report: VAS(0-10) 04/30/13 05/06/13 05/15/13 At Rest: 3-4/10 4/10 1/10 With Use: 5-7/10 6-7/10 3/10 Location: L index finger, ulnar side of MCPJ, volar IF Description: Bee sting on the tip of the finger, soreness on dorsal finger Frequency: Constant and intermittent Pain is worse: As the day progresses Pain is exacerbated by: Motion, even at rest pain happens Pain is relieved by: pain medication, rest Progression since onset: Staying the same ROM: Fingers Extension/Flexion, AROM(PROM) 04/30/13 Date: 201104/30/13 05/06/13 05/15/13 Right Side: Left Left Left AROM(PROM) 90 105 65 Index: MP PIP DIP NT/80 18/50 5 35/82 15/ 531 0/91 0/102 0/67 Strength: [x] Contraindicated Finger Edema Circumference: (Measured in cm) 05/06/13 Date 05/06/13 05/15/13 Right IF Location: Left IF Left IF 5.5 P1 6.4 5.9 5.4 PIP 6.1 5.4 4.4 P2 4.8 4.8 Scar/Wound: Some dried eschar around incision, healing well Sensation: Patient is having return of sensation to ulnar side of indes finger A: Response to therapy has been improvement to: ROM of Fingers: All Planes Edema: Circumferential edema has decreased Pain: frequency [...] dorsal block splint - 05/15/13 D/C per MD A/AROM, tendon gliding of fingers Recommend patient get long handled sponge for bathing and jar medical photographer that attaches to base of cabinet for one handed opening Edema management - instruction in coban wrapping, elevation, ice Scar management - scar massage, scar pad for night wear Desensitization with sensory stick Next visit: Fluidotherapy, ROM A/AAROM Scar massage Progress to gentle adapted physical education teacher/pinch strengthening Discharge Plan: Achieve all LTG. Independent in home treatment program. Reach maximal therapeutic benefit. Please see daily flow sheet for treatment and 1:1 time provided today. HAND documented in this encounter Plan of Treatment Not on filedocumented as of this encounter Procedures Procedure Name Priority Date/Time Associated Diagnosis Comme [facility] Z MANUAL THER Routine 05/15/2013 11:24 AM Finger stiff ness, left TECH,1+REGIONS,EA 15 SHOP HAND Pain in jackson b MIN Other postprocedural status Finger laceration, subsequent encounter [facility] SELF CARE MNGMENT Routine 05/15/2013 11:24 AM Finger stiffness, left TRAINING SHOP HAND Pain in limb Other postprocedural status Finger laceration, subsequent encounter [facility] THERAPEUTIC Routine 05/15/2013 11:24 AM Finger stiff ness, left EXERCISES SHOP HAND Pain in limb Other postprocedural status Finger laceration, subsequent encounter documented in this encounter Visit Diagnoses Diagnosis Finger stiffness, left - Primary Mechanical problems with limbs Pain in limb Other postprocedural status(V45.89) Other postprocedural status Finger laceration, subsequent encounter documented in this encounter Care Teams Steel Erector Relationship Specialty Start Date End Date Edison Tam MD PCP - General Family Practice 09/21/11 07/22/[address] [address] documented as of this encounter
--- OUTSIDE RECORDS SUMMARY | 2021-10-24 12:03 | XMS_ITS | Encounter Summary ---
:1955 Author Organization [place] Address [address] [place] [address] Care Team Providers Name Role Phone Edison Tam MD Primary Care Provider Reason for Visit Reason Onset Date Comments Refill Request 04/15/2013 Encounter Details Date Type Department Care Team Description 04/15/2013 Refill Diabetes and Endocri ne Laisha Moraes MD Refill Request 6th Floor, Clinic [address]A [address] 6 [facility] [place] [phone] Social History Tobacco Use Types Packs/Day [...] hypothyroidism documented in this encounter Care Teams Car Shunter Relationship Specialty Start Date End Date Edison Tam MD PCP - General Family Practice 09/21/11 07/22/[address] [address] documented as of this encounter
--- OUTSIDE RECORDS SUMMARY | 2021-10-24 12:03 | XMS_ITS | Encounter Summary ---
:1955 Author Organization [place] Address [facility] [place] [address] Care Team Providers Name Role Phone Edison Tam MD Primary Care Provider Reason for Referral Occupational Therapy - Closed Specialty Diagnoses / Procedures Referred By Contact Refer red To Contact Diagnoses Finger laceration, subsequent encounter [facility] 1st Floor, [address] [phone] Referral ID Status Reason Start Date Expiration Date Visits Requ ested Visits Authorized [id number] Closed 04/30/2013 10/27/2013 1 1 GN SUPERVISOR Reason for Visit Reason Comments Surgical Followup DOS 04/16/13: Left index finge r digital nerve repair with loupe magnification and suturing a nd NeuraGen tube augmentation (2 mm x 1 cm). Encounter Details Date Type Department Care Team Description 04/30/2013 Office Visit Orthopaedic Clinic Marisol Hathaway Finger laceration, [place] MD Patricia subsequent Rehabilitation Rafael tremaine [facility] encounter (Primary 1st Floor, [address] [facility] Dx) [facility] [address] [address] [place], [place] [phone] (Wo rk) Social History Tobacco Use Types Packs/Day Years Used Date Former Smoker 1 18 Smokeless Tobacco: Former User Q uit: 09/20/1991 Alcohol Use Standard Drinks/Week Comments No 0 (1 standard drink = 0.6 oz pure alcoho l) Sex Assigned at Date Recorded Not on file documented as of this encounter Progress Notes Alyssa Kang ATC - 04/30/2013 10:57 AM CST Maria E was seen in clinic today following her left index finger digital nerve repair with loupe magnification and suturing and NeuraGen tube augmentation (2 mm x 1 cm) performed by Dr. Hathaway on 04/16/13. Patient's post-operative splinting was removed and incision site cleaned. Incision looks to be healing well with no signs of infection. Patient reports to have no change in sensation. 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 We talked about the need to back off some of these things, especially if it causes her pain. She was also educated on wound care and what to look for as signs of infection. All of her questions were answered, she will call with any concerns that may arise before her follow-upwith Dr. Hathaway on 05/14/2013. GN SUPERVISOR documented in this encounter Plan of Treatment Scheduled Referrals Name Type Priority Associated Diagnoses Order S chedule HAND THERAPY Referral Routine Finger laceration, subsequen t Ordered: 04/30/2013 encounter documented as of this encounter Visit Diagnoses Diagnosis Finger laceration, subsequent encounter - Primary documented in this encounter Care Teams Grounds Manager Relationship Specialty Start Date End Date Edison Tam MD PCP - General Family Practice 09/21/11 07/22/14 909 [facility] [place] [address] documented as of this encounter
--- OUTSIDE RECORDS SUMMARY | 2021-10-24 12:03 | XMS_ITS | Encounter Summary ---
:1955 Author Organization [place] Address [facility] [place] [address] Care Team Providers Name Role Phone Edison Olivas MD Primary Care Provider Reason for Visit Auth/Cert - Closed Specialty Diagnoses / Procedures Referred By Contact Refer red To Contact Surgery Diagnoses Left Index Nerve Laceration Ur Sports Periop Procedures REPAIR NERVE MICROSCOPIC UPPER EXTREMITY [address] [place] [address] Phone: Referral ID Status Reason Start Date Expiration Date Visits Requ ested Visits Authorized [id number] Closed 1 1 Encounter Details Date Type Department Care Team Description 04/16/2013 Hospital Encounter UR SPORTS PHASE II Ivette Hathaway Digital nerve laceration, darin martinez, initial encounter (Primary Dx); [address] [facility] [address] MD Patricia [place] [address] [facility] [phone] [facility] [address] [place] [address] Social History Tobacco Use Types Packs/Day Years Used Date Former Smoker 1 18 Smokeless Tobacco: Former User Q uit: 09/20/1991 Alcohol Use Standard Drinks/Week Comments No 0 (1 standard drink = 0.6 oz pure alcoho l) Sex Assigned at Date Recorded Not on file documented as of this encounter Last Filed Vital Signs Vital Sign Reading Time Taken Comments Blood Pressure 116/78 04/16/2013 2:15 PM SACK CLEANER Pulse - - Temperature 36.8 ??C (98.2 ??F) 04/16/2013 2:15 PM SACK CLEANER Respiratory Rate 12 04/16/2013 2:15 PM SACK CLEANER Oxygen Saturation 98% 04/16/2013 2:15 PM SACK CLEANER Inhaled Oxygen Concentration - - Weight 50.8 kg (112 lb) 04/16/2013 10:31 AM SACK CLEANER Height 157.5 cm (5' 2) 04/16/2013 10:31 AM SACK CLEANER Body Mass Index 20.49 04/16/2013 10:31 AM SACK CLEANER documented in this encounter Discharge Instructions Discharge InstructionsRito Goncalves, NANDINI - 04/16/2013 1:34 PM CST You have had a digital nerve repair. Keep Dressing Clean and Dry. Elevate hand at heart level times 48 hours. Move non-splinted fingers for light activity. Do not push against resistance. Resume all pre-op medications. Use analgesic medication only as prescribed. Use Sling as needed. Follow with our office in 7- 10 days. Call for questions. [facility] Same-Day Surgery Adult Discharge Orders & Instructions For 24 hours after surgery 1. Get plenty of rest. A responsible adult must stay with you for at least 24 hours after you leave the hospital. 2. Do not drive or use heavy equipment. If you have weakness or tingling, don't drive or use heavy equipment until this feeling goes away. 3. Do not drink alcohol. 4. Avoid strenuous or risky activities. Ask for help when climbing stairs. 5. You may feel lightheaded. IF so, sit for a few minutes before standing. Have someone help you getup. 6. If you have nausea (feel sick to your stomach): Drink only clear liquids such as apple juice, mariela jonathan, broth or 7-Up. Rest may also help. Be sure to drink enough fluids. Move to a regular diet asyou feel able. 7. You may have a slight fever. Call the doctor if your fever is over 100??F (37.7??C) (taken under the tongue) or lasts longer than 24 hours. 8. You may have a dry mouth, a sore throat, muscle aches or trouble sleeping. These should go away after 24 hours. 9. Do not make important or legal decisions. Call your doctor for any of the followin. Signs of infection (fever, growing tenderness at the surgery site, a large amount of drainage or bleeding, severe pain, foul-smelling drainage, redness, swelling). 2. It has been over 8 to 10 hours since surgery and you are still not able to urinate (pass water). 3. Headache for over 24 hours. 4. Numbness, tingling or weakness the day after surgery (if you had spinal anesthesia). To contact a doctor, call or: ??? [phone] and ask for the resident drone pilot for (answered 24 hours a day) ??? Emergency Department: [facility]: [phone] (TTY for hearing impaired: [phone]) [facility]: [phone] (TTY for hearing impaired: [phone]) Post Operative Instructions: Following Surgery on your Arm or Hand It is important to: Keep the affected arm or hand elevated to reduce swelling and pain. Use pillows at night and a sling (when ordered) during the day. Check the color, motion, and sensation of the fingers/hand on a regular basis. Take pain medication as directed. Keep the dressing clean, dry, and intact. Watch for drainage. Report to your doctor at once if: Your fingers below the dressing/cast are numb, difficult or painful to move, and this is not relieved after elevation. There is a change in the color of your fingers below the dressing/cast that does not go away when elevated. The affected arm or hand is much cooler or warmer than the other side. Pain is not relieved with elevation and medication. Your temperature is elevated. There is an odor or unusual drainage on the dressing/cast. Your dressing/cast is uncomfortably snug or tight. Home Activity: Spend a quiet afternoon and evening at home on the day of your surgery. No tub baths or showers until your dressing/cast is removed by the doctor. CLEANER documented in this encounter Medications at Time [...] tablet mouth 2 times daily as needed. Menthol, Topical Analgesic, Externally apply 0 (ICY HOT EX) topically. Patient uses Gel, Cream and Patch PRN ALPRAZolam (XANAX) 0.5 MG Take 0.5 mg by 0 01/28/2017 tablet mouth At Bedtime buPROPion (WELLBUTRIN SR) Take 300 mg by 0 01/28/2017 150 MG 12 hr tablet mouth every morning cholecalciferol (VITAMIN D) Take 1 tablet 100 tablet 3 04/0705/09/2017 1000 UNIT tabletIndications: (1,000 Units) by Osteopenia mouth daily Discontinue Vitamin D 98358 multivitamin (THERA-PLUS) Take 5 mLs by 0 05/09/2017 LIQD mouth daily. Potassium Chloride CR 8 MEQ Take 16 mEq by 30 capsule 0 12/1001/28/2017 CPCRIndications: mouth daily NEED Hypopotassemia APPT WITH DR. OLIVAS FOR REFILLS. venlafaxine (EFFEXOR-XR) 75 Take 75 mg by 0 08/15/2015 MG 24 hr capsule mouth daily calcium carbonate (TUMS) 500 Take 1 chew tab 0 12/01/2014 MG chewable tablet by mouth as needed. cyanocobalamin 1000 MCG/ML Inject 1 mL into 0 04/27/2013 injection the muscle every 30 days. HYDROcodone-acetaminophen Take 1-2 tablets 30 tablet 0 08/201305/14/2013 (NORCO) 5-325 MG per by mouth every 4 tabletIndications: Digital hours as needed nerve laceration, finger, for other initial encounter (Moderate to Severe Pain) Lactobacillus (ACIDOPHILUS Take 1 capsule by 0 08/09/2014 PO) mouth daily Levothyroxine Sodium 50 MCG Take 1 tablet by 90 capsule 1 08/28/2013 CAPSIndications: Yossi's mouth daily thyroiditis ORDER FOR DMEIndications: Injection 12 each 0 07/08/2012 04/27/2013 B12 deficiency Supplies for Vitamin B12: 3cc syringes w/ 27 gauge needles, 1 inch length predniSONE (DELTASONE) 1 MG Take 2 tablets by 0 05/18/2013 tabletIndications: mouth daily With Preoperative examination the 5mg tab for total of 7mg daily predniSONE (DELTASONE) 5 MG (total daily dose 90 tablet 3 0 04/15/2013 05/18/2013 tabletIndications: Crohn's 7 mg/day) disease of both small and large intestine with complication (H), Osteoporosis, Yossi's thyroiditis, Hypothyroidism propranolol (INDERAL) 20 MG Take 1 tablet (20 90 tablet 2 1 08/28/2013 tabletIndications: mg) by mouth Unspecified essential daily hypertension rOPINIRole (REQUIP) 1 MG Take 1 tablet (1 90 tablet 1 02/0406/18/2013 tabletIndications: Restless mg) by mouth At leg Bedtime May take 1/2 tab additional prn once daily documented as of this encounter H&P Notes Luciano Valdes - 05/07/2013 1:27 PM CST CLEANER documented in this encounter Miscellaneous Notes Op Note - Ivette Hathaway MD - 04/19/2013 9:06 AM CST PREOPERATIVE DIAGNOSIS: Left index finger laceration with nerves. POSTOPERATIVE DIAGNOSIS: Left index finger laceration with nerves. PROCEDURE: Left index finger digital nerve repair with loupe magnification and suturing and NeuraGentube augmentation (2 mm x 1 cm). SURGEON: Ivette Hathaway MD FIRST ASSISTANTS: Indra eMrrill MD and Christiano Rhoades MD ANESTHESIA: General. ESTIMATED BLOOD LOSS: Minimal. INDICATIONS: Maria E Coley presents after attempting to cut an avocado. She had extreme bleeding.She had loss of 2-point discrimination on the ulnar aspect of her index finger with laceration of her digital nerve and artery. The risks, benefits and alternatives of surgical repair including, but not exclusive to, problems with the scar, incomplete healing, u incomplete return of function, need forpostoperative immobilization and rehabilitation were specifically discussed. DESCRIPTION OF PROCEDURE: The patient was brought to the operating room suite where general anesthesia was administered. The left arm was sterilely prepped and draped in the usual manner. After a timeout verifying site and side, the limb was elevated, exsanguinated and the tourniquet inflated to 200 mmHg. The anesthesia was augmented by a median nerve block with 0.5% Marcaine and digital nerve block for the radial sensory nerve. The scar was then opened in a Stanley fashion proximally and distally toidentify the 2 ends of the nerve. The artery had been lacerated but the digit was pink and viable and so no further arterial repair was necessary. The flexor tendon was inspected and there was no evidence of injury to the superficialis or profundus to a full excursion. The digital nerve head and one fascicle of the epineurium intact, so the orientation was well delineated; 8-0 nylon was then used lionel end-to-end repair circumferentially. A 2 mm NeuraGen tube was soaked in normal saline for 10 minut es. It was cut to a 1 cm length so it would fit at the MCP crease where the laceration had occurred.The nerve was then overwrapped with the NeuraGen tube and the NeuraGen tube was sewn onto itself using 6-0 nylon. The patient's tourniquet was deflated and the wound was closed using 5-0 nylon. The patient was placed in an extension block splint at the MCP joint and taken to the PACU in satisfactory condition with no apparent intraoperative complications. IVETTE HATHAWAY MD MT: LQ Name: MARIA E COLEY MRN: [id number] Account: [id number] : 1955 Procedure Date: 04/16/2013 Document: [id number] CLEANER documented in this encounter Plan of Treatment Not on filedocumented as of this encounter Procedures Procedure Name Priority Date/Time Associated Diagnosis Comme nts REPAIR, NERVE, UPPER 04/16/2013 11:17 AM Left Index Ne rve EXTREMITY, USING SACK CLEANER Laceration OPERATING MICROSCOPE Special Needs Difficult IV start pt reques ts that ultrasound be used to start IV documented in this encounter Visit Diagnoses Diagnosis Digital nerve laceration, finger, initia l encounter - Primary Sacro-iliac pain Disorders of sacrum documented in this encounter Administered Medications Inactive Administered Medications - up to 3 most recent administrations Medication Order MAR Action Action Date Dose Rate Site hydrocortisone (hydrocortisone Given 04/16/2013 1:27 PM SACK CLEANER 100 mg sodium succinate) 100 mg in sterile water (preservative free) 100 mL injection 100 mg, Intravenous, EVERY 5 MIN PRIOR TO SURGERY, Starting on Tish 04/16/13 at 1317 lactated ringers infusion New Bag 04/16/2013 1:42 PM SACK CLEANER at 75-100 mL/hr, Intravenous, CONTINUOUS, UNLESS otherwise indicated., Pre-procedure, Starting on Tish 04/16/13 at 1015, Until Tish 04/16/13 at 1401 New Bag 04/16/2013 11:29 AM SACK CLEANER New Bag 04/16/2013 11:15 AM SACK CLEANER mL documented in this encounter Active and Recently Administered Medications Times are shown in SACK CLEANER. Scheduled Medication Order 04/14/2013 04/15/2013 04/16/2013 hydrocortisone (hydrocortisone sodium miller ccinate) 100 mg in sterile water (preservative free) 100 mL injection (CANCELED) 1327 (Given - Provider: Janey Cm RN) 100 mg, Intravenous, EVERY 5 MIN PRIOR TO SURGERY Continuous Medication Order 04/14/2013 04/15/2013 04/16/2013 lactated ringers infusion (CANCELED) 1115 (New Bag - Provider: Ambrosio Whitaker APRN CRNA)1129 (New Bag - Provider: Jenniffer Mattson RN)1245 (Anesthesia Volume Adjustment - Provider: Ambrosio Whitaker APRN CRNA)1342 (New Bag - Provider: Janey Cm RN) at 75-100 mL/hr, Intravenous, CONTINUOUS , UNLESS otherwise indicated., Pre-procedure PRN Medication Order 04/14/2013 04/15/2013 04/16/2013 bupivacaine 0.5%, lidocaine 2% (50/50) injection (CANCELED) 1140 (Given - Provider: Ivette Hathaway MD) PRN, Starting Tish 04/16/13 at 1140, Intra-procedure sodium chloride 0.9% (bottle) irrigation (CANCELED) 1226 (Given - Provider: Ivette Hathaway MD) PRN, Starting Tish 04/16/13 at 1226, Area t o irrigate and instructions: ., Intra-procedure documented in this encounter Care Teams Svp Digital Sales Relationship Specialty Start Date End Date Edison Olivas MD PCP - General Family Practice 09/21/11 07/22/[address] [address] documented as of this encounter
--- OUTSIDE RECORDS SUMMARY | 2021-10-24 12:03 | XMS_ITS | Encounter Summary ---
:1955 Author Organization [place] Address [facility] [place] [address] Care Team Providers Name Role Phone Edison Olivas MD Primary Care Provider Reason for Visit Auth/Cert - Closed Specialty Diagnoses / Procedures Referred By Contact Refer red To Contact Surgery Diagnoses Left Index Nerve Laceration Ur Sports Periop Procedures REPAIR NERVE MICROSCOPIC UPPER EXTREMITY [address] [place] [address] Phone: Referral ID Status Reason Start Date Expiration Date Visits Requ ested Visits Authorized [id number] Closed 1 1 Encounter Details Date Type Department Care Team Description 04/16/2013 Surgery UR SPORTS PERIOP Ivette Hathaway Left Index Finger [address] [place] [address] [facility] with Nuerogen tibe [phone] [facility] [place] [address] [place], [place] [address] (Wo rk) Surgery Details Date/Time Status Location OR Service Patient Case Case Traum a Class Class Type Case? 04/16/13 12:00 Posted US OR US OR Orthopedics Same Day PM 03 Surgery Panel 1 Procedure LRB Anes Op Region Wound Class Commen ts Left Index Finger Digital Left General Arm I-Clean Left Index Finger Nerve Repair with Nuerogen Digital Nerve Repair tibe with Nuerogen tibe Surgeon Surgeon Role Service Panel Ivette Hathaway MD Primary Orthopedics 1 Indra Merrill MD Assisting Orthopedics 1 Special Needs Difficult IV start pt requests that ultr asound be used to start IV documented in this encounter Social History Tobacco [...] Sign Reading Time Taken Comments Blood Pressure 97/49 04/16/2013 12:47 PM PRODUCT SAFETY ENGINEER Pulse - - Temperature 36.6 ??C (97.9 ??F) 04/16/2013 12:47 PM PRODUCT SAFETY ENGINEER Respiratory Rate 12 04/16/2013 12:47 PM PRODUCT SAFETY ENGINEER Oxygen Saturation 96% 04/16/2013 12:47 PM PRODUCT SAFETY ENGINEER Inhaled Oxygen Concentration - - Weight 50.8 kg (112 lb) 04/16/2013 10:31 AM PRODUCT SAFETY ENGINEER Height 157.5 cm (5' 2) 04/16/2013 10:31 AM PRODUCT SAFETY ENGINEER Body Mass Index 20.49 04/16/2013 10:31 AM PRODUCT SAFETY ENGINEER documented in this encounter Discharge Instructions Discharge InstructionsRito Goncalves RN - 04/16/2013 1:34 PM CST You have had a digital nerve repair. Keep Dressing Clean and Dry. Elevate hand at heart level times 48 hours. Move non-splinted fingers for light activity. Do not push against resistance. Resume all pre-op medications. Use analgesic medication only as prescribed. Use Sling as needed. Follow with our office in 7- 10 days. Call for questions. [facility] Same-Day Surgery Adult Discharge Orders & [...] To contact a doctor, call or: ??? [phone] and ask for the resident production illustrator for (answered 24 hours a day) ??? Emergency Department: [facility]: [phone] (TTY for hearing impaired: [phone]) [facility]: [phone] (TTY for hearing impaired: [phone]) Post Operative Instructions: Following Surgery on your [...] your dressing/cast is removed by the doctor. UCT SAFETY ENGINEER documented in this encounter Medications at Time [...] by Osteopenia mouth daily Discontinue Vitamin D 97735 multivitamin (THERA-PLUS) Take 5 mLs by 0 [...] documented as of this encounter H&P Notes Keisha Provider - 05/07/2013 1:27 PM CST UCT SAFETY ENGINEER documented in this encounter Miscellaneous Notes Op Note - Ivette Hathaway MD - 04/19/2013 9:06 AM CST PREOPERATIVE DIAGNOSIS: Left index finger laceration with nerves. POSTOPERATIVE DIAGNOSIS: Left index finger laceration with nerves. PROCEDURE: Left index finger digital nerve repair with loupe magnification and suturing and NeuraGentube augmentation (2 mm x 1 cm). SURGEON: Ivette Hathaway MD FIRST ASSISTANTS: Indra Merrill MD and Christiano Rhoades MD ANESTHESIA: General. [...] Name: MARIA E COLEY MRN: -[id number] Account: [id number] : 1955 Procedure Date: 04/16/2013 Document: [id number] UCT SAFETY ENGINEER documented in this encounter Plan of Treatment Not on filedocumented as of this encounter Procedures Procedure Name Priority Date/Time Associated Diagnosis Comme nts REPAIR, NERVE, UPPER 04/16/2013 11:17 AM Left Index Ne rve EXTREMITY, USING PRODUCT SAFETY ENGINEER Laceration OPERATING MICROSCOPE Special Needs Difficult IV start pt reques ts that ultrasound be used to start IV documented in this encounter Visit Diagnoses Not on filedocumented in this encounter Administered Medications Inactive Administered Medications - up to 3 most recent administrations Medication Order MAR Action Action Date Dose Rate Site bupivacaine 0.5%, Given 04/16/2013 11:40 9 mLs O perative lidocaine 2% (50/50) AM PRODUCT SAFETY ENGINEER Site /Surgical Site injection PRN, Starting on Tish 04/16/13 at 1140, Intra-procedure hydrocortisone (hydrocortisone sodium Given 04/16/2013 1:[address] 100 mg succinate) 100 mg in sterile water (preservative free) 100 mL injection 100 mg, Intravenous, EVERY 5 MIN PRIOR TO SURGERY, Starting on Tish 04/16/13 at 1317 lactated ringers infusion New Bag 04/16/2013 1:42 PM PRODUCT SAFETY ENGINEER at 75-100 mL/hr, Intravenous, CONTINUOUS, UNLESS otherwise indicated., Pre-procedure, Starting on Tish 04/16/13 at 1015, Until Tish 04/16/13 at 1401 New Bag 04/16/2013 11:29 AM PRODUCT SAFETY ENGINEER New Bag 04/16/2013 11:15 AM PRODUCT SAFETY ENGINEER mL sodium chloride 0.9% Given 04/16/2013 12:26 PM 50 mLs Operative Site/Surgical (bottle) irrigation PRODUCT SAFETY ENGINEER Site PRN, Starting on Tish 04/16/13 at 1226, Area to irrigate and instructions: ., Intra-procedure documented in this encounter Active and Recently Administered Medications Times are shown in PRODUCT SAFETY ENGINEER. Scheduled Medication Order 04/14/2013 04/15/2013 04/16/2013 hydrocortisone (hydrocortisone sodium miller ccinate) 100 mg in sterile water (preservative free) 100 mL injection (CANCELED) 1327 (Given - Provider: Janey Cm, RN) 100 mg, Intravenous, EVERY 5 MIN PRIOR TO SURGERY Continuous Medication Order 04/14/2013 04/15/2013 04/16/2013 lactated ringers infusion (CANCELED) 1115 (New Bag - Provider: Ambrosio Whitaker APRN [employer] ENGINEERS)1129 (New Bag - Provider: Jenniffer Mattson RN)1245 [...] Intra-procedure documented in this encounter Care Teams Surveying Crew Stake Runner Relationship Specialty Start Date End Date Edison Olivas MD PCP - General Family Practice 09/21/11 07/22/14 909 [facility] [address] [place] [address] documented as of this encounter
--- OUTSIDE RECORDS SUMMARY | 2021-10-24 12:03 | XMS_ITS | Encounter Summary ---
:1955 Author Organization [facility] Address [address] [place] [id number] Care Team Providers Name Role Phone Edison Tam MD Primary Care Provider Reason for Visit Occupational Therapy - Closed Specialty Diagnoses / Procedures Referred By Contact Refer red To Contact Diagnoses Finger laceration, subsequent encounter [facility] 1st Floor, [address] [place] [address] [phone] Referral ID Status Reason Start Date Expiration Date Visits Requ ested Visits Authorized [id number] Closed 04/30/2013 10/27/2013 1 1 Encounter Details Date Type Department Care Team Description 04/30/2013 Therapy Visit [facility] Ros Crowley, Finger laceration, initial encounter (Primary Dx); Orthopaedics Hand OT Pain in limb; [facility] Finger stiffness, left; [address] [place] [address] THERAPY CTR Other postprocedural status [address]RE[address] [place] [address] [address] [place] [id number] [phone] Social History Tobacco Use Types Packs/Day Years Used Date Former Smoker 1 18 Smokeless Tobacco: Former User Q uit: 09/20/1991 Alcohol Use Standard Drinks/Week Comments No 0 (1 standard drink = 0.6 oz pure alcoho l) Sex Assigned at Date Recorded Not on file documented as of this encounter Progress Notes Ros Crowley, OT - 04/30/2013 11:09 AM CST Hand Therapy Initial Evaluation Current Date: 04/30/2013 Referring MD: Dr. Hathaway Return to MD: 05/14/2013 Procedure: Left index finger digital nerve repair with loupe magnification and suturing and NeuraGentube augmentation (2 mm x 1 cm). DOS: 04/16/2013 Post: 2w 0d Subjective: Maria E Coley is a 57 year old right hand dominant female. Patient reports symptoms of pain, stiffness/loss of motion, weakness/loss of strength, edema and numbness of the left index finger which occurred due to lacerating artery and digital nerve. Since onsetsymptoms are Unchanged.?? Special tests:?? none.?? Previous treatment: surgical repair.? Generalhealth as reported by patient is good.?? Pertinent medical history includes:osteoporosis, history offractures, diabetes, fibromyalgia, thyroid problems, anemia, hepatitis, menopausal?? Medical allergies:none. Surgical history: orthopedic: index finger.?? Medication history: thyroid medication, pain medication, steroids, anti-depressants. 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 independent-have help in some areas Red flags:?? 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, driving, sports/recreation, pushing/pulling, lifting/carrying, work, sleeping, reaching Functional Outcome Measure: QuickDASH SCORE Sum: 46 Count: 11 QuickDASH Disability/Symptom Score: 79.55 (A higher score indicates greater disability.) O: Pain Report: VAS(0-10) 04/30/13 At Rest: 3-4/10 With Use: 5-7/10 Location: L index finger, ulnar side of MCPJ, volar IF Description: Sharp, throbbing, meat jb feeling Frequency: Constant and intermittent Pain is worse: As the day progresses Pain is exacerbated by: Motion, even at rest pain happens Pain is relieved by: pain medication, rest Progression since onset: Staying the same ROM: Fingers Extension/Flexion, AROM(PROM) 04/30/13 Date: 201104/30/13 Right Side: Left AROM(PROM) 90 105 65 Index: MP PIP DIP NT/80 18/50 5/25 Strength: [x] Contraindicated Edema: mild to moderate of IF Scar/Wound: Dissolvable sutures intact, nursing inspected and incision is clean and dry Sensation: complete numbness on ulnar IF, sensory disturbance on radial side of IF A: Patient presents with symptoms consistent with diagnosis as listed above with surgical intervention. Patient's limitations or Problem List includes: Pain, Decreased ROM/motion, Increased edema, Weakness, Sensory disturbance, Adherent scarring, Decreased oven operator automatic, Decreased pinch, Decreased coordination, Decreased dexterity and Adherence in connective tissue of the left index finger which interferes with the patient's ability to perform Self Care Tasks (dressing, eating, bathing, hygiene/toileting), Sleep Patterns, Recreational Activities, Boom Stick Worker and Driving as compared to previous level of function. Rehab Potential: Good - Return to full activity, some limitations Patient will benefit from skilled Occupational Therapy to increase ROM, oven operator automatic strength, pinch strength, coordination, dexterity and sensation and decrease pain, edema and adherence of scarring to returnto previous activity level and resume normal daily tasks and to reach their rehab potential. Barriers to Learning: No barrier Communication Issues: Patient appears to be able to clearly communicate and understand verbal and written communication and follow directions correctly. Treatment Explanation: The following has been discussed with the patient: RX ordered/plan of care Anticipated outcomes Possible risks and side effects Frequency: 1 X week, once daily Duration: for 8 weeks P: Treatment Plan: Modalities: US, Fluidotherapy and Paraffin Therapeutic Exercise: AROM, AAROM, PROM, Tendon Gliding, Blocking, Isotonics and Isometrics Neuromuscular re-education: Sensory re-education and Desensitization Manual Techniques: Scar mobilization, Myofascial release and Manual edema mobilization Orthotic Fabrication: Hand based orthosis Self Care: Self Care Tasks Home Program: HB dorsal block splint - library media specialist wear, remove for hygiene and exercise GENTLE AROM of finger flexion, extension to DBS Recommend patient get long handled sponge for bathing and jar gravity prospector that attaches to base of cabinet for one handed opening Next visit: Check splint Re-measure ROM Formal Edema measures Progress ROM - 10 degrees more extension at MCP, gentle AAROM of flexion Discharge Plan: Achieve all LTG. Independent in home treatment program. Reach maximal therapeutic benefit. Please see daily flow sheet for treatment and 1:1 time provided today. CTOR OPERATIONS BROADCAST documented in this encounter Plan of Treatment Not on filedocumented as of this encounter Procedures Procedure Name Priority Date/Time Associated Diagnosis Comme nts HC APPLY FINGER SPLINT Routine 04/30/2013 12:11 PM Finger lace ration, STATIC DIRECTOR OPERATIONS BROADCAST initial encounte r Pain in limb Finger stiffness , left Other postprocedural status [facility] Routine 04/30/2013 12:11 PM Finger laceration, EXERCISES DIRECTOR OPERATIONS BROADCAST initial encounte r Pain in limb Finger stiffness , left Other postprocedural status documented in this encounter Visit Diagnoses Diagnosis Finger laceration, initial encounter - P rimary Pain in limb Finger stiffness, left Other postprocedural status(V45.89) Other postprocedural status documented in this encounter Care Teams Scenic Designer Relationship Specialty Start Date End Date Edison Tam MD PCP - General Family Practice 09/21/11 07/22/14 [address] [facility] [address] [place] [address] documented as of this encounter
--- OUTSIDE RECORDS SUMMARY | 2021-10-24 12:03 | XMS_ITS | Encounter Summary ---
:1955 Author Organization [facility] Address [address] [place] [address] Care Team Providers Name Role Phone Edison Tam MD Primary Care Provider Reason for Visit Reason Comments Other Encounter Details Date Type Department Care Team Description 04/15/2013 Telephone Diabetes and Endocri ne Stevenson White RN 6th Floor, Clinic [place] [phone] Social History Tobacco Use Types Packs/Day Years Used Date Former Smoker 1 18 Smokeless Tobacco: Former User Q uit: 09/20/1991 Alcohol Use Standard Drinks/Week Comments No 0 (1 standard drink = 0.6 oz pure alcoho l) Sex Assigned at Date Recorded Not on file documented as of this encounter Miscellaneous Notes Telephone Encounter - Stevenson White RN - 04/15/2013 3:05 PM CST Message copied by STEVENSON WHITE on SatApr 15, 2013 3:05 PM Surgery clinic notified of orders. Reviewed with pt, she will call with any questions re: steroid coverage post op ------ Message from: KASH MORAES Created: SatApr 15, 2013 2:55 PM Regarding: RE: details Have them give her hydrocortisone 100 mg IV just prior to surgery. When she returns home she should increase the prednisone to 5 mg three times/day po for the lst 24 hours after she returns home. If she is feeling well after that she can reduce back to her baseline of 7 mg/day ----- Message ----- From: Stevenson White RN Sent: 04/15/2013 2:50 PM To: Kash Moraes MD Subject: details Pt will have general anesthesia, day surgery tomorrow for hand repair. Prednisone 7 mg daily for many months. 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
--- OUTSIDE RECORDS SUMMARY | 2021-10-24 12:03 | XMS_ITS | Encounter Summary ---
:1955 Author Organization [facility] Address [facility] [place] [address] Care Team Providers Name Role Phone Edison Tam MD Primary Care Provider Reason for Referral - Closed Specialty Diagnoses / Procedures Referred By Contact Refer red To Contact Diagnoses Chronic low back pain Lumbar stenosis with neurogenic claudication Lumbar radicular pain Sacroiliac joint pain Sid Lilly MD [address] [facility] [address] [place], [place] [address] Referral ID Status Reason Start Date Expiration Date Visits Requ ested Visits Authorized [id number] Closed 05/28/2013 11/24/2013 1 1 Reason for Visit Reason Comments Consult Low back, L leg pain, weakne ss. Hx of 2 double laminectomies at . Encounter Details Date Type Department Care Team Description 05/28/2013 Office Visit [facility], Chronic low back pain (Prima ry Dx); [facility] Sid Bunch, Lumbar stenosis with neurogenic claudication; Center Lumbar radicular pain; 1st Floor, [address] Sacroiliac joint pain [address] [place] [address] [phone] Social History Tobacco Use Types Packs/Day Years Used Date Former Smoker 1 18 Smokeless Tobacco: Former User Q uit: 09/20/1991 Alcohol Use Standard Drinks/Week Comments No 0 (1 standard drink = 0.6 oz pure alcoho l) Sex Assigned at Date Recorded Not on file documented as of this encounter Last Filed Vital Signs Vital Sign Reading Time Taken Comments Blood Pressure 113/62 05/28/2013 1:11 PM CDT Pulse 89 05/28/2013 1:11 PM CDT Temperature - - Respiratory Rate - - Oxygen Saturation - - Inhaled Oxygen Concentration - - Weight 54.4 kg (120 lb) 05/28/2013 1:11 PM CDT Height 154.9 cm (5' 1) 05/28/2013 1:11 PM CDT Body Mass Index 22.67 05/28/2013 1:11 PM CDT documented in this encounter Progress Notes Sid Lilly MD - 05/30/2013 5:46 PM CDT REFERRING PHYSICIAN & CHIEF COMPLAINT: The patient is seen in consultation at the request of Dr.Ann Hathaway for low back and left leg pain. Dr. Hathaway had been seeing her for hand issues. This is thus a separate problem, and this is my first encounter with the patient. PCP Dr. Edison Tam. HISTORY OF PRESENT ILLNESS: 57-year-old female with low back and left leg symptoms. She was diagnosed with Crohn's disease in the 1970s. She had been on prednisone since 1970 for a total of 44 years, currently taking 7 mg of prednisone per day. From the beginning she has had bilateral buttock pains and was diagnosed with bilateral sacroiliac joint problems. She had also been known for a long time to have bilateral L5 pars defects. She has had 2 previous surgeries, both posterior decompressions, presumably at the L4-5 level in 2005 and 2008 performed in [place], [place]. Both surgeries helped significantly. Symptoms are 70% back, 30% leg, left greater than right. Symptoms are made worse by standing and walking. She could only walk up to 1/4 of a mile. Symptoms are made better by rest, heating pads and TaiChi. Overall, she would rather sit than stand but would need to reposition every so often. (+) shopping cart sign. Previous treatments have included prescription medication, physical therapy, injections, bed rest and traction. She also had acupuncture mainly for other reasons. She says that physical therapy was notof much help. She had bilateral SI joint injections by Dr. Nelson on 04/21/2013; per report, the pain decreased from 6/10 to 2-3/10. Per patient, this did not help much. However, she said she has had aprevious SI joint injections back in [place] and that they had helped much better before. Currently, she is taking Tylenol 3 grams per day. KEYLA is 19/45 or 42.2%. EQ-5D overall health is 75. Back pain 9/10, leg pain 5/10. PAST MEDICAL HISTORY: Positive for Crohn's disease, chronic prednisone intake, arthritis, osteoporosis, low back problems, Yossi's thyroiditis and possible lupus. PAST SURGICAL HISTORY: Previous surgeries include laminectomies or decompression surgeries in 2005 and 2008, colon resections related to Crohn's disease in 1977, 1985 and 1987. She sustained a left index finger injury on 04/09/2013, underwent surgery by Dr. Hathaway a few days later, 04/16/2013. DRUG ALLERGIES: Include Humira, ibuprofen, loratadine, Lyrica, Remicade, Demerol, morphine, penicillin G, sulfa drugs and tramadol. REVIEW OF SYSTEMS: A 14-system review was performed, positive for GI symptoms secondary to Crohn's disease, shortness of breath, sore throat, dry eyes, precancerous spots, sinus congestion, anemia and low iron levels, right wrist injury in her 20s sustained while roller blading, depression and mood swings. FAMILY HISTORY: Positive for arthritis, cancer, osteoporosis and back problems. PRESENT MEDICATIONS: Please refer to nurse's note. She is not on narcotics. She takes prednisone 7 mg per day, used to be at a higher dose, currently not on anti-osteoporosis medication. She said she cannot take Fosamax or Actonel. She was on Reclast, last dose was 2 years ago. PERSONAL AND SOCIAL HISTORY: The patient does not work. She is on disability related mainly to Crohn's disease. She is and lives with 2 cats and is renting a duplex apartment. She used to smoke but quit in 1991. She does not drink alcohol. PHYSICAL EXAMINATION: The patient is a very pleasant, healthy-appearing 57-year-old lady seen today,alert, oriented x3 and cooperative. She is not in cardiorespiratory distress. BMI 22.69. She is able to ambulate independently with a normal gait, no antalgia, no imbalance. She is able to walk on her toes as well as on her heels. Inspection of her back reveals a healed midline incision over the approximate L4-S1 level. No sign of infection. She has a mild red spot just proximal to the incision. This is nontender. She has mild left PSIS tenderness, negative on the right. She has mild limitation of lumbar extension, reports discomfort. On flexion, she is able to reach down approximately 3 inches off the ground. She also notes discomfort at end of motion. Neurologic exam reveals 4/5 antalgic weakness of left hip flexion. All other muscle groups have 5/5 strength. No sensory deficits to light touch. 2+ knee and 1+ ankle reflexes bilaterally, no Babinski,no clonus. Examination of her lower extremities reveal equal leg lengths, negative straight leg raise bilaterally. Hip internal rotation on the right reproduces midline back pain but not groin pain. Negative internal rotation test on the left. SI joint provocative maneuvers were performed. Positive left Mian's, left thigh thrust, sacral thrust and modified Gaenslen's. Negative right Mian's, right thigh thrust, distraction and compression tests. IMAGING: Lumbar AP, lateral x-rays were obtained today. AP x-ray shows mild lumbar scoliosis. There is post-laminectomy change across the L3-4 and L4-5 levels. There is L3-4 asymmetric disk collapse, left greater than right with mild lateral listhesis. The visualized portion of her hip joints do not show advanced arthritis. Lateral x-ray shows preserved lumbar lordosis. There is significant disk space narrowing at L4-5. Mild retrolisthesis, L3-4. I reviewed lumbar MRI from 05/20/2013. This shows multilevel degenerative changes across the lumbar spine, most advanced at the L4-5 level. MRI also shows asymmetric disk space narrowing, mainly at theL3-4 level with resultant left foraminal narrowing. Also appreciated is bilateral L5 pars defects without spondylolisthesis. I reviewed lumbar CT from 04/02/2013. This shows advanced multilevel degenerative changes. There is severe disk space narrowing with some subchondral cysts across L4-5 level. There is also significant asymmetric disk space narrowing, left greater than right at the L3-4 level. There is bilateral L5 pars defects without listhesis. IMPRESSION: 1. L>R asymmetric disc collapse and left-sided stenosis L3-4 with neurogenic claudication. 2. Multilevel lumbar spondylosis. 3. Left leg radicular pain. 4. Presumptive left sacroiliac joint pain. 5. Chronic low back pain. CONTINUATION: PLAN: I had a good discussion with the patient regarding my findings, diagnosis and recommendations.At this point, there are several findings on her spine each of which may be contributing or is responsible for her ongoing symptoms of low back and left leg pain: - Left greater than right stenosis with asymmetric disc collapse at the L3-4 level, and significantdiffuse disk space collapse at the L4-L5 level. These are likely not only causing back pain but may also be producing some degree of nerve compression that would explain her left-sided symptoms. - My examination also yielded several positive findings suggestive of sacroiliac joint etiology of her pain. In the past, she has had good relief from SI joint injections performed in [place], even though her last injection done a month ago did not give him the same significant relief. - Chronic bilateral L5 pars defects, even though there is no spondylolisthesis. I am not entirely sure whether these pars defects are contributing to her pain or are mere incidental findings. We discussed the degenerative nature of these conditions. We also discussed the various treatment options including both operative and nonoperative. At this point, she would like to again try formal physical therapy. I also counseled her regarding other nonoperative treatment strategies including activity modification and regular exercises, leading a healthy lifestyle, etc. I would be happy to see her back in the future on an as needed basis. If she gets to the point that she would like to consider surgical options, then we would need to more precisely identify her pain generator. This may require differential injections - I would then consider a left sacroiliac joint injection as well as left L3 and/or L4 nerve root block to differentiate pain between these potential pain generators. The patient expressed good understanding and agreement. Total visit time exceeded 45 minutes, more than half spent in counseling and coordination of care. documented in this encounter Nursing Notes 05/28/2013 1:00 PM CDT >> DONNA ESCALONA, EXPERIMENTAL ELECTRONICS DEVELOPER Tish May 28, 2013 1:18 PM Reason For Visit: Patient presents with: Consult - Low back, L leg pain, weakness. Hx of 2 double laminectomies at . BP 113/62 Pulse 89 Ht 1.549 m (5' 1) Wt 54.432 kg (120 lb) BMI 22.69 kg/m2 VAS Pain Scores: Back Pain Scale 0-10: 9 Leg Pain Scale 0-10: 5 Occupation not working. Currently working? No. Work status? Retired and on disability. Smoker: No Request smoking cessation information: No Pain Assessment Patient Currently in Pain: Other (Comment) (pain upon sitting, standing, activities, bending. ) Oswestry Disability Index (KEYLA ?? Binh Vicente [...] prevents me from sitting for more than 1 hour Section 6 - Standing: Pain prevents me from standing for more than half an hour. Section 7 - Sleeping: Because of pain I have less than 6 hours sleep. Section 8 - Sex life : Not answered/NA Section 9 - Social Life: Pain has restricted my social life and I do not go out as often. Section 10 - Traveling: I can travel anywhere but it gives me additional pain. Sum: 19 Count: 9 Oswestry Score (%): 42.22 % MOBILITY: (4) I have severe problems walking SELF CARE: (3) I have moderate problems washing or dressing myself USUAL ACTIVITIES (e.g. work, study, housework, family or leisure activities): (4) I have severe problems doing my usual activities PAIN / DISCOMFORT: (4) I have severe pain or discomfort ANXIETY / DEPRESSION: (1) I am not anxious or depressed We would like to know how good or bad your health is TODAY (0-100; 100 means the best health you canimagine; 0 means the worst health you can imagine): 75 documented in this encounter Miscellaneous Notes Initial Assessments - Keisha Non-Provider - 06/12/2013 3:47 PM CDT documented in this encounter Plan of Treatment Scheduled Referrals Name Type Priority Associated Diagnoses Order S chedule PHYSICAL THERAPY Referral Routine Chronic low jose k pain Ordered: 05/28/2013 REFERRAL (Internal) Lumbar stenosis with neurogenic shirin ication Lumbar radicular pain Sacroiliac joint pain documented as of this encounter Visit Diagnoses Diagnosis Chronic low back pain - Primary Lumbago Lumbar stenosis with neurogenic claudica tion Spinal stenosis, lumbar region, with urvashi rogenic claudication Lumbar radicular pain Thoracic or lumbosacral neuritis or radi culitis, unspecified Sacroiliac joint pain Disorders of sacrum documented in this encounter Care Teams Chief Of Police Relationship Specialty Start Date End Date Edison Tam MD PCP - General Family Practice 09/21/11 07/22/14 [address] [facility] [address] [place] [address] documented as of this encounter
--- OUTSIDE RECORDS SUMMARY | 2021-10-24 12:03 | XMS_ITS | Encounter Summary ---
:1955 Author Organization [facility] Address [address] [place] [address] Care Team Providers Name Role Phone Edison Tam MD Primary Care Provider Reason for Visit Reason Comments Other Encounter Details Date Type Department Care Team Description 04/15/2013 Telephone Diabetes and Endocri ne Kash Moraes MD 6th Floor, Clinic [address] [place] [address] [place] [address] [place] [phone] Social History Tobacco Use Types Packs/Day Years Used Date Former Smoker 1 18 Smokeless Tobacco: Former User Q uit: 09/20/1991 Alcohol Use Standard Drinks/Week Comments No 0 (1 standard drink = 0.6 oz pure alcoho l) Sex Assigned at Date Recorded Not on file documented as of this encounter Miscellaneous Notes Telephone Encounter - Kash Moraes MD - 04/15/2013 5:33 PM CST Message copied by KASH MORAES on SatApr 15, 2013 5:33 PM ------ Message from: KASH MORAES Created: SatApr 15, 2013 5:33 PM Regarding: FW: details ----- Message ----- From: Kash Moraes MD Sent: 04/15/2013 2:55 PM To: Harriett Lew RN Subject: RE: details Have them give her hydrocortisone 100 mg IV just prior to surgery. When she returns home she should increase the prednisone to 5 mg three times/day po for the lst 24 hours after she returns home. If she is feeling well after that she can reduce back to her baseline of 7 mg/day ----- Message ----- From: Harriett Lew RN Sent: 04/15/2013 2:50 PM To: Kash Moraes MD Subject: details Pt will have general anesthesia, day surgery tomorrow for hand repair. Prednisone 7 mg daily for many months. 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
--- OUTSIDE RECORDS SUMMARY | 2021-10-24 12:03 | XMS_ITS | Encounter Summary ---
:1955 Author Organization [facility] Address [address] [place] [address] Care Team Providers Name Role Phone Edsion Tam MD Primary Care Provider Encounter Details Date Type Department Care Team Description 05/06/2013 Therapy Visit [facility] Ros Crowley, Finger stiffness, left (Primary Dx); Orthopaedics Hand OT Pain in limb; [facility] Other postprocedural status; [address] [place] [address] THERAPY CTR Finger laceration, subsequent encounter; STRE[address] [place] [address] Mechanical problems with limbs [address] [place] [id number] [phone] Social History Tobacco Use Types Packs/Day Years Used Date Former Smoker 1 18 Smokeless Tobacco: Former User Q uit: 09/20/1991 Alcohol Use Standard Drinks/Week Comments No 0 (1 standard drink = 0.6 oz pure alcoho l) Sex Assigned at Date Recorded Not on file documented as of this encounter Progress Notes Ros Crowley, OT - 05/06/2013 9:10 AM CST Hand Therapy Soap Note Current Date: 05/06/2013 Referring MD: Dr. Hathaway Return to MD: 05/14/2013 Procedure: Left index finger digital nerve repair with loupe magnification and suturing and NeuraGentube augmentation (2 mm x 1 cm). 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 Functional changes noted by patient: I've been using my hand for too much - grabbing things, puttingbeads in bags, folding laundry and picking up my clothes. I called [facility] and he said I'm over-doing it and I need to take it easy. Response to previous treatment: good Patient has noted adverse reaction to: None O: Pain Report: VAS(0-10) 04/30/13 05/06/13 At Rest: 3-4/10 4/10 With Use: 5-7/10 6-7/10 Location: L index finger, ulnar side of MCPJ, volar IF Description: Sharp, throbbing, meat jb feeling like someone is slicing down the side of the finger with a knife Frequency: Constant and intermittent Pain is worse: As the day progresses Pain is exacerbated by: Motion, even at rest pain happens Pain is relieved by: pain medication, rest Progression since onset: Staying the same ROM: Fingers Extension/Flexion, AROM(PROM) 04/30/13 Date: 201104/30/13 05/06/13 Right Side: Left Left AROM(PROM) 90 105 65 Index: MP PIP DIP NT/80 18/50 5/25 35/82 15/74 5/31 Strength: [x] Contraindicated Finger Edema Circumference: (Measured in cm) 05/06/13 Date 05/06/13 Right IF Location: Left IF 5.5 P1 6.4 5.4 PIP 6.1 4.4 P2 4.8 Scar/Wound: Dissolvable sutures intact, clean and dry incision with no signs of infection Sensation: complete numbness on ulnar IF, sensory disturbance on radial side of IF A: Response to therapy has been improvement to: ROM of Fingers: All Planes Overall Assessment: Patient would benefit from continued therapy to [...] Home Program: HB dorsal block splint - signal timer wear, remove for hygiene and exercise GENTLE AROM of finger flexion, extension to DBS Recommend patient get long handled sponge for bathing and jar marine service operator that attaches to base of cabinet for one handed opening Reverse blocking for PIPJ extension Edema management - instruction in coban wrapping, elevation, ice Next visit: Check splint - adjust for slightly more extension as able Re-measure ROM AROM, gentle AAROM of flexion Discharge Plan: Achieve all LTG. Independent in home treatment program. Reach maximal therapeutic benefit. Please see daily flow sheet for treatment and 1:1 time provided today. TESTER documented in this encounter Plan of Treatment Not on filedocumented as of this encounter Procedures Procedure Name Priority Date/Time Associated Diagnosis Comme [facility] SELF CARE MNGMENT Routine 05/06/2013 3:36 PM Finger stiffness, left TRAINING BOAT TESTER Pain in limb Other postprocedural status Finger laceration, subsequent encounter [facility] THERAPEUTIC Routine 05/06/2013 3:36 PM Finger stiffn ess, left EXERCISES BOAT TESTER Pain in limb Other postprocedural status Finger laceration, subsequent encounter documented in this encounter Visit Diagnoses Diagnosis Finger stiffness, left - Primary Pain in limb Other postprocedural status(V45.89) Other postprocedural status Finger laceration, subsequent encounter Mechanical problems with limbs documented in this encounter Care Teams Case Management Director Relationship Specialty Start Date End Date Edison Tam MD PCP - General Family Practice 09/21/11 07/22/14 909 [facility] 4 [place] [address] documented as of this encounter
--- OUTSIDE RECORDS SUMMARY | 2021-10-24 12:03 | XMS_ITS | Encounter Summary ---
:1955 Author Organization [facility] Address Pending sale to [facility] [place] [address] Care Team Providers Name Role Phone Edison Tam MD Primary Care Provider Reason for Visit Reason Onset Date Comments Refill Request 04/17/2013 oxycodone,vistaril Encounter Details Date Type Department Care Team Description 04/17/2013 Refill [facility] Marisol Hathaway Refill Request [facility] Graciela andrews MD (oxycodone,vistaril) [facility]' 1st Floor, [address] [id number] [phone] Social History Tobacco Use Types Packs/Day Years Used Date Former Smoker 1 18 Smokeless Tobacco: Former User Q uit: 09/20/1991 Alcohol Use Standard Drinks/Week Comments No 0 (1 standard drink = 0.6 oz pure alcoho l) Sex Assigned at Date Recorded Not on file documented as of this encounter Miscellaneous Notes Telephone Encounter - Ainsley Clarke RN - 04/17/2013 10:45 AM CST Pt w/ hx surgery w/ Dr Hathaway 04/16/13, Left Index Finger Digital Nerve Repair with Nuerogen tibe. Pt states pain not controlled w/ norco, rated at 10/10 last night. Now 7/10. Spoke w/ fellow Indra Merrill MD. Oxycodone, vistaril ordered, to DR Brown for signature for p/u per [facility]/Dr Hathaway/ Lila Clarke RN TRONIC TECH documented in this encounter Plan of Treatment Not on filedocumented as of this encounter Visit Diagnoses Diagnosis Pain - Primary Generalized pain documented in this encounter Care Teams Payable Processor Relationship Specialty Start Date End Date Edison Tam MD PCP - General Family Practice 09/21/11 07/22/14 909 [facility] 4 [place] [address] documented as of this encounter
--- OUTSIDE RECORDS SUMMARY | 2021-10-24 12:03 | XMS_ITS | Encounter Summary ---
:1955 Author Organization [facility] Address [address] [place] [address] Care Team Providers Name Role Phone Edison Tam MD Primary Care Provider Encounter Details Date Type Department Care Team Description 04/15/2013 Abstract Diabetes and Endocri ne Harriett Lew RN 6th Floor, Clinic [address]A [place] [phone] Social History Tobacco Use Types Packs/Day [...] on filedocumented in this encounter Care Teams Banquet Chef Relationship Specialty Start Date End Date Edison Tam MD PCP - General Family Practice 09/21/11 07/22/[address] [id number] documented as of this encounter
--- OUTSIDE RECORDS SUMMARY | 2021-10-24 12:03 | XMS_ITS | Encounter Summary ---
:1955 Author Organization [facility] Address [address] [place] [address] Care Team Providers Name Role Phone Edison Tam MD Primary Care Provider Reason for Visit Reason Onset Date Comments Refill Request 04/15/2013 Encounter Details Date Type Department Care Team Description 04/15/2013 Refill Diabetes and Endocri ne Harriett Lew RN Refill Request 6th Floor, Clinic [address] [phone] Social History Tobacco Use Types [...] hypothyroidism documented in this encounter Care Teams Thermograph Operator Relationship Specialty Start Date End Date Edison Tam MD PCP - General Family Practice 09/21/11 07/22/[address] [id number] documented as of this encounter
--- OUTSIDE RECORDS SUMMARY | 2021-10-24 12:03 | XMS_ITS | Encounter Summary ---
:1955 Author Organization [facility] Address [address] [place] [address] Care Team Providers Name Role Phone Edison Tam MD Primary Care Provider Reason for Visit Reason Onset Date Comments Refill Request 04/27/2013 Encounter Details Date Type Department Care Team Description 04/27/2013 Refill Medicine GI - 1E Cahran Salazar MD Refill Request [address] [address] 1st Floor, [facility] [address] [place] [address] [place] [phone] Social History Tobacco Use Types Packs/Day Years Used Date Former Smoker 1 18 Smokeless Tobacco: Former User Q uit: 09/20/1991 Alcohol Use Standard Drinks/Week Comments No 0 (1 standard drink = 0.6 oz pure alcoho l) Sex Assigned at Date Recorded Not on file documented as of this encounter Miscellaneous Notes Telephone Encounter - Lorrie Fox LPN - 04/27/2013 12:12 PM CST Received refill request from [facility] in [place] for Cyanocobalamin. Will set up along with DMEsupplies and send to Dr. Salazar for approval and signature. R TESTER documented in this encounter Plan of Treatment Not on filedocumented as of this encounter Visit Diagnoses Diagnosis B12 deficiency - Primary Other B-complex deficiencies documented in this encounter Care Teams Dump Truck Driver Off Highway Relationship Specialty Start Date End Date Edison Tam MD PCP - General Family Practice 09/21/11 07/22/14 907 [facility] 4 [place] [address] documented as of this encounter
--- OUTSIDE RECORDS SUMMARY | 2021-10-24 12:04 | XMS_ITS | Encounter Summary ---
:1955 Author Organization [facility] Address [address] [place] [address] Care Team Providers Name Role Phone Edison Tam MD Primary Care Provider Reason for Visit Reason Onset Date Comments Other 12/01/2012 syringes Encounter Details Date Type Department Care Team Description 12/01/2012 Telephone Medicine GI - 1E Charan Salazar MD Other (syringes ) [address] [address] 1st Floor, [facility] [address] [place] [address] [place] [address] Social History Tobacco Use Types Packs/Day Years Used Date Former Smoker 1 18 Smokeless Tobacco: Former User Q uit: 09/20/1991 Alcohol Use Standard Drinks/Week Comments No 0 (1 standard drink = 0.6 oz pure alcoho l) Sex Assigned at Date Recorded Not on file documented as of this encounter Miscellaneous Notes Telephone Encounter - Rebekah Mason RN - 12/01/2012 4:15 PM CDT Spoke to pharmacist and ordered 1 and 3 ml syringes with 22/24 gauges for MTX/B12 injections. documented in this encounter Plan of Treatment Not on filedocumented as of this encounter Visit Diagnoses Not on filedocumented in this encounter Care Teams Line Decorator Relationship Specialty Start Date End Date Edison Tam MD PCP - General Family Practice 09/21/11 07/22/14 909 [facility] 4 [place] [address] documented as of this encounter
--- OUTSIDE RECORDS SUMMARY | 2021-10-24 12:04 | XMS_ITS | Encounter Summary ---
:1955 Author Organization [facility] Address [address] [place] [address] Care Team Providers Name Role Phone Edison Tam MD Primary Care Provider Reason for Visit Reason Onset Date Comments Clinic Care Coordination - Follow-up 12/08/2012 Encounter Details Date Type Department Care Team Description 12/08/2012 Telephone Medicine GI - 1E Charan Salazar MD Clinic Care [address] - [place], [place] Follow-up 1st Floor, Clinic [address] [place] [address] [place] [address] Social History Tobacco Use Types [...] as of this encounter Visit Diagnoses Diagnosis Inflammatory bowel disease (Crohn's dise ase) (H) - Primary Regional enteritis of unspecified site documented in this encounter Care Teams Consumer Safety Officer Relationship Specialty Start Date End Date Edison Tam MD PCP - General Family Practice 09/21/11 07/22/[address] [address] documented as of this encounter
--- OUTSIDE RECORDS SUMMARY | 2021-10-24 12:04 | XMS_ITS | Encounter Summary ---
:1955 Author Organization [facility] Address [address] [place] [address] Care Team Providers Name Role Phone Edison Tam MD Primary Care Provider Reason for Visit Reason Onset Date Comments Results 04/07/2013 Encounter Details Date Type Department Care Team Description 04/07/2013 Telephone [facility], Primary Care Edison Antoine MD Results Center [address] [place] [address] 4 3rd Floor, Clinic 3A [place], [place] [phone] [place] [address] [place] [address] [phone] Social History Tobacco Use Types Packs/Day Years Used Date Former Smoker 1 18 Smokeless Tobacco: Former User Q uit: 09/20/1991 Alcohol Use Standard Drinks/Week Comments No 0 (1 standard drink = 0.6 oz pure alcoho l) Sex Assigned at Date Recorded Not on file documented as of this encounter Miscellaneous Notes Telephone Encounter - Edison Tam MD - 04/09/2013 12:35 PM WASTE EXAMINER Noted. Keep appointment tomorrow. Edison Dyer E EXAMINER Telephone Encounter - Corky Sainz RN - 04/09/2013 12:05 PM CST I spoke with Maria E and she has an appointment with ortho spine on 04/10/13. Maria E asked that I did pass on some additional information for Dr. Tam (MACI). Maria E has had ongoing back pain 24 hoursa day, every day that wakes her up at night. She is finding it increasingly difficult to find a position that is comfortable to include standing and sitting. Maria E also notes that her thighs are falling asleep and feels like her legs (espically her left) will give out when she stands. E EXAMINER Telephone Encounter - Corky Sainz RN - 04/08/2013 3:23 PM CST Left message. Corky Sainz RN 04/08/2013 3:23 PM E EXAMINER Telephone Encounter - Edsion Tam MD - 04/07/2013 3:36 PM CST Results for orders placed in visit on 04/02/13 LIPID REFLEX TO DIRECT LDL PANEL Component Value Range Cholesterol 203 (*) 0 - 200 mg/dL Triglycerides 159 (*) 0 - 150 mg/dL HDL Cholesterol 84 50 - 110 mg/dL LDL Cholesterol Calculated 87 0 - 129 mg/dL VLDL-Cholesterol 32 (*) 0 - 30 mg/dL Cholesterol/HDL Ratio 2.4 0.0 - 5.0 COMPREHENSIVE METABOLIC PANEL Component Value Range Sodium 137 133 - 144 mmol/L Potassium 3.7 3.4 - 5.3 mmol/L Chloride 102 94 - 109 mmol/L Carbon Dioxide 25 20 - 32 mmol/L Anion Gap 10 6 - 17 mmol/L Glucose 91 60 - 99 mg/dL Urea Nitrogen 13 7 - 30 mg/dL Creatinine 0.84 0.52 - 1.04 mg/dL GFR Estimate 70 >60 mL/min/1.7m2 GFR Estimate If Black 84 >60 mL/min/1.7m2 Calcium 9.1 8.5 - 10.4 mg/dL Bilirubin Total 0.3 0.2 - 1.3 mg/dL Albumin 4.2 3.3 - 4.9 g/dL Protein Total 6.9 6.8 - 8.8 g/dL Alkaline Phosphatase 83 40 - 150 U/L ALT 38 0 - 50 U/L AST 30 0 - 45 U/L CBC WITH PLATELETS DIFFERENTIAL Component Value Range WBC 8.2 4.0 - 11.0 10e9/L RBC Count 4.87 3.8 - 5.2 10e12/L Hemoglobin 14.8 11.7 - 15.7 g/dL Hematocrit 45.0 35.0 - 47.0 % MCV 92 78 - 100 fl MCH 30.4 26.5 - 33.0 pg MCHC 32.9 31.5 - 36.5 g/dL RDW 12.7 10.0 - 15.0 % Platelet Count 218 150 - 450 10e9/L Diff Method Automated Method % Neutrophils 83.0 % Lymphocytes 10.4 % Monocytes 5.7 % Eosinophils 0.5 % Basophils 0.2 % Immature Granulocytes 0.2 Absolute Neutrophil 6.8 1.6 - 8.3 10e9/L Absolute Lymphocytes 0.9 0.8 - 5.3 10e9/L Absolute Monoctyes 0.5 0.0 - 1.3 10e9/L Absolute Eosinophils 0.0 0.0 - 0.7 10e9/L Absolute Basophils 0.0 0.0 - 0.2 10e9/L Abs Immature Granulocytes 0.0 0 - 0.4 10e9/L TSH WITH FREE T4 REFLEX Component Value Range TSH 1.08 0.4 - 5.0 mU/L VITAMIN D DEFICIENCY SCREENING Component Value Range Vitamin D Deficiency screening 67 30 - 75 ug/L HEMOGLOBIN A1C Component Value Range Hemoglobin A1C 5.5 4.3 - 6.0 % CT LUMBAR SPINE W/O CONTRAST Narrative: Lumbar spine CT without contrast History: Left [...] significant spinal canal or neural foraminal stenosis. Impression: Impression: 1. Severe spondylosis of the lumbar spine worst at L3-L4 and L4-L5 as described above, not significantly changed from comparison. 2. Stable postsurgical changes of L3-L4 decompressive laminectomies. 3. Stable bilateral pars defect of L5. 4. Diffuse osteopenia. LANI SIEGEL MD I have personally reviewed the image and initial interpretation, and I agree with findings. CRP INFLAMMATION Component Value Range CRP Inflammation <5.0 0.0 - 8.0 mg/L ERYTHROCYTE SEDIMENTATION RATE AUTO Component Value Range Sed Rate 5 0 - 30 mm/h [phone] (home) I tired to call at 3:40pm. Busy. Recommend Discontinue Vitamin D 82790 IU twice weekly and switch to Vitamin D 1000 IU daily with a recheck of D in 3 months. Her lipids are excellent. All other labs are excellent including thyroid, complete blood count including hemoglobin,white cell count for infection, kidney, liver, blood sugar,calcium, sodium and potassium were normal or within acceptable range. Sed reate and CRP are nicely low showing inflammation is controlled. Results of CT Lumbar spine appear stable but chronic read impression. Please continue with plans to see ortho spine. Edison Tam E EXAMINER documented in this encounter Plan of Treatment Not on filedocumented as of this encounter Visit Diagnoses Diagnosis Osteopenia - Primary Disorder of bone and cartilage, unspecif ied documented in this encounter Care Teams Lens Mounter Relationship Specialty Start Date End Date Edison Tam MD PCP - General Family Practice 09/21/11 07/22/[address] [address] documented as of this encounter
--- OUTSIDE RECORDS SUMMARY | 2021-10-24 12:04 | XMS_ITS | Encounter Summary ---
:1955 Author Organization [facility] Address [address] [place] [address] Care Team Providers Name Role Phone Edison Tam MD Primary Care Provider Encounter Details Date Type Department Care Team Description 11/19/2012 Orders Only [facility] enter Positive RAIMUNDO (antinuclear Radhika-Wangensteen antibody ) Building 1st Floor, Clinic 1D Mail Code [address] [place], [place] [address] Social History Tobacco Use Types [...] Priority Date/Time Associated Diagnosis Comme nts XR HAND BILATERAL Routine 11/19/2012 10:01 AM Positive RAIMUNDO Res ults for this G/E 3 VIEWS CDT (antinuclear procedure are i n antibody) the results section. documented in this encounter Results X-ray bl hand 3+ vw (11/19/2012 10:01 AM CDT) Anatomical Region Laterality Modality Hand, Wrist Bilateral Computed Radiography Specimen (Source) Anatomical Collection Method Collection Time Re ceived Time Location / / Volume Laterality 11/19/2012 10:01 AM CDT Impressions 11/19/2012 10:45 AM CDT IMPRESSION: 1. No definite radiographic evidence of an inflammatory arthropathy in the hands, feet, ankles or wrists. 2. Old, ununited fracture of the right u lnar styloid is noted. There is some cystic or erosive change at the base of the right ulnar styloid, though it is uncertain if this is related to the prior trauma. 3. Mild areas of joint space narrowing i nvolving the index finger distal interphalangeal joint bilaterally , right triscaphe joint, and left great toe metatarsal phalangeal keiko nt, findings favored to be degenerative. KRYSTINA CANCINO MD Narrative 11/19/2012 10:45 AM CDT EXAMINATION: 1. Each hand 3 views 2. Each wrist 3 views 3. Each foot 3 views 4. Each ankle 3 views DATE: 11/19/2012 HISTORY: Crohn's disease; arthropathy FINDINGS: 3 views of each hand and 3 vie ws of each wrist are compared to prior radiographs of the right wrist from 12/14/2011. On the right, again identified is an ununited fracture of the ulnar styloid. Minimal cystic change is again identifie d along the base of the ulnar styloid on the right, and it is uncertai n if this is a focal erosion or related to the prior trauma. Joint sp yuliya narrowing of the right triscaphe joint is evident. Benign cysti c changes are identified in the right lunate. There is joint space n arrowing and spurring of the thumb metacarpal phalangeal joint bilate rally, left greater than right. No erosions are otherwise identif ied throughout the carpus or metacarpal phalangeal joints bilaterally . No distal erosive changes are seen. There is mild spurring of the index finger distal interphalangeal joint noted bilaterally. 3 views of each ankle demonstrate normal alignment. No fracture or acute bone abnormality is identified. Th ere are no erosions. No osteochondral lesions are identified wit hin the talar dome. Minimal spurring of the great toe metatarsal pha langeal joint is noted on the left, with formation of a small subchond ral cyst. No definite erosions of the metatarsal phalangeal theresa ints. Procedure Note Krystina Cancino MD - 11/19/2012Forma tting of this note might be different from the original. EXAMINATION: 1. Each hand 3 views 2. Each wrist 3 views 3. Each foot 3 views 4. Each ankle 3 views DATE: 11/19/2012 HISTORY: Crohn's disease; arthropathy FINDINGS: 3 views of each hand and 3 vie ws of each wrist are compared to prior radiographs of the right wrist from 12/14/2011. On the right, again identified is an ununited fracture of the ulnar styloid. Minimal cystic change is again identifie d along the base of the ulnar styloid on the right, and it is uncertai n if this is a focal erosion or related to the prior trauma. Joint sp yuliya narrowing of the right triscaphe joint is evident. Benign cysti c changes are identified in the right lunate. There is joint space n arrowing and spurring of the thumb metacarpal phalangeal joint bilate rally, left greater than right. No erosions are otherwise identif ied throughout the carpus or metacarpal phalangeal joints bilaterally . No distal erosive changes are seen. There is mild spurring of the index finger distal interphalangeal joint noted bilaterally. 3 views of each ankle demonstrate normal alignment. No fracture or acute bone abnormality is identified. Th ere are no erosions. No osteochondral lesions are identified wit hin the talar dome. Minimal spurring of the great toe metatarsal pha langeal joint is noted on the left, with formation of a small subchond ral cyst. No definite erosions of the metatarsal phalangeal theresa ints. IMPRESSION IMPRESSION: 1. No definite radiographic evidence of an inflammatory arthropathy in the hands, feet, ankles or wrists. 2. Old, ununited fracture of the right u lnar styloid is noted. There is some cystic or erosive change at the base of the right ulnar styloid, though it is uncertain if this is related to the prior trauma. 3. Mild areas of joint space narrowing i nvolving the index finger distal interphalangeal joint bilaterally , right triscaphe joint, and left great toe metatarsal phalangeal keiko nt, findings favored to be degenerative. KRYSTINA CANCINO MD Debbi Juarez MD IMG DIAGNOSTIC IMAGING ORDER EB documented in this encounter Visit Diagnoses Diagnosis Positive RAIMUNDO (antinuclear antibody) Other and unspecified nonspecific immuno logical findings documented in this encounter Care Teams Editorial Director Relationship Specialty Start Date End Date Edison Tam MD PCP - General Family Practice 09/21/11 07/22/[address] [address] documented as of this encounter
--- OUTSIDE RECORDS SUMMARY | 2021-10-24 12:04 | XMS_ITS | Encounter Summary ---
:1955 Author Organization [place] Address [address] [place] [address] Care Team Providers Name Role Phone Edison Tam MD Primary Care Provider Reason for Visit Reason Onset Date Comments Prior Authorization 11/12/2012 Encounter Details Date Type Department Care Team Description 11/12/2012 Telephone Medicine GI - 1E Charan Salazar MD Prior Authorization [address] 1st Floor, Clinic [address] [place] [address] [place] [address] Social History Tobacco Use Types Packs/Day Years Used Date Former Smoker 1 18 Smokeless Tobacco: Former User Q uit: 09/20/1991 Alcohol Use Standard Drinks/Week Comments No 0 (1 standard drink = 0.6 oz pure alcoho l) Sex Assigned at Date Recorded Not on file documented as of this encounter Miscellaneous Notes Telephone Encounter - Lorrie Fox LPN - 11/12/2012 10:31 AM CDT Prior auth completed for Methotrexate. documented in this encounter Plan of Treatment Not on filedocumented as of this encounter Visit Diagnoses Not on filedocumented in this encounter Care Teams Supervisor Instant Potato Processing Relationship Specialty Start Date End Date Edison Tam MD PCP - General Family Practice 7/13/12 5/14/15 909 [facility] 4 [place] [address] documented as of this encounter
--- OUTSIDE RECORDS SUMMARY | 2021-10-24 12:04 | XMS_ITS | Encounter Summary ---
:1955 Author Organization [place] Address [facility] [place] [address] Care Team Providers Name Role Phone Edison Tam MD Primary Care Provider Reason for Visit Reason Comments Laceration L index finger laceration. D OI 04/09/13. Encounter Details Date Type Department Care Team Description 04/13/2013 Office Visit [facility] Marisol Hathaway Finger laceration, Atkinson MD Patricia initial encounter Rehabilitation [facility] tremaine [facility] (Primary Dx) 1st Floor, [address] [facility] [address] [place] [id number] [place], [place] [phone] (Wo rk) Social History Tobacco Use Types [...] - Inhaled Oxygen Concentration - - Weight 50.8 kg (112 lb) 04/13/2013 3:46 PM GENERAL OPERATIONS AGENT Height 157.5 cm (5' 2) 04/13/2013 3:46 PM GENERAL OPERATIONS AGENT Body Mass Index 20.49 04/13/2013 3:46 PM GENERAL OPERATIONS AGENT documented in this encounter Progress Notes Marisol Hathaway MD - 04/13/2013 4:39 PM CST HISTORY OF PRESENT ILLNESS: Maria E is a 57-year-old, right hand dominant female, who was seen on 04/13/2012 for evaluation and treatment of a left index ulnar digital nerve laceration. She reports thatwallye was carving an avocado. The index finger was lacerated. There was profuse bleeding. The laceration occurred on 04/09/2013. She is right hand dominant. She held pressure on it and went into the emergency room where a possible nerve laceration was diagnosed. She comes in today for followup evaluation. PRIMARY CARE PHYSICIAN: Her primary care physician is Dr. Edison Tam. PAST MEDICAL HISTORY: 1. Prolonged prednisone use secondary to Crohn's disease. PAST SURGICAL HISTORY: 1. Laminectomy L4 and L5 secondary to disk problems. 2. Bowel resection secondary to Crohn's disease. MEDICATIONS: Reviewed on Epic. ALLERGIES: Humira, ibuprofen. PHYSICAL EXAMINATION: On examination today, Maria E has a right index finger laceration which has been sutured with nylon sutures. It is at the base of her index finger on the ulnar digital border. She does have flexion of FDS and her FDP tendon to the index finger as well as to the adjacent middle finger. On 2- point discrimination, she has absent 2-point discrimination on the ulnar side of the index finger. The radial border is normal. IMPRESSION: Right index finger ulnar digital nerve laceration. PLAN: At this time, she does have pain with flexion so she could have a partial flexor tendon injury. She definitely has a digital nerve laceration and risks and alternatives of surgical exploration with nerve and possible tendon repair were discussed, questions answered and consent obtained. It was discussed with her specifically that she would need postoperative immobilization and rehabilitation tomaximize her function and that it would take easily 3-6 months for the nerve to grow back after coaptation and most likely her sensation quality would be somewhat impaired long-term. 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 cc:Edison Tam MD RAL OPERATIONS AGENT documented in this encounter Nursing Notes 04/13/2013 3:50 PM CST >> VASYL ALBRECHT RN katya Apr 14, 2013 5:40 AM Teaching Flowsheet Relevant Diagnosis: Left index laceration Teaching Topic: Left index digital nerve repair Person(s) involved in teaching: Patient Motivation Level: Asks Questions: Yes Eager to Learn: Yes Cooperative: Yes Receptive (willing/able to accept information): Yes Any cultural factors/confucianism beliefs that may influence understanding or compliance? No Patient demonstrates understanding of the following: Reason for the appointment, diagnosis and treatment plan: Yes Knowledge of proper use of medications and conditions for which they are ordered (with special attention to potential side effects or drug interactions): Yes Which situations necessitate calling provider and whom to contact: Yes Teaching Concerns Addressed: Proper use and care of (medical equip, care aids, etc.): Nutritional needs and diet plan: Yes Pain management techniques: Yes Wound Care: Yes How and/when to access community resources: Yes Instructional Materials Used/Given: surgery packet Time spent with patient: 15 minutes. >> FRANCES Dao Apr 13, 2013 3:47 PM Reason For Visit: Patient presents with: Laceration - L index finger laceration. DOI 04/09/13. Pain Assessment Patient Currently in Pain: No (numbness currently, pain with certain movements) Hand Dominance Evaluation Hand Dominance: Right Ht 1.575 m (5' 2) Wt 50.803 kg (112 lb) BMI 20.48 kg/m2 documented in this encounter Plan of Treatment Not on filedocumented as of this encounter Visit Diagnoses Diagnosis Finger laceration, initial encounter - P rimary documented in this encounter Care Teams Plater Hot Dip Relationship Specialty Start Date End Date Edison Tam MD PCP - General Family Practice 09/21/11 07/22/[address] [address] documented as of this encounter
--- OUTSIDE RECORDS SUMMARY | 2021-10-24 12:04 | XMS_ITS | Encounter Summary ---
:1955 Author Organization [place] Address [address] [place] [address] Care Team Providers Name Role Phone Edison Tam MD Primary Care Provider Reason for Visit Reason Onset Date Comments Refill Request 01/01/2013 K-cl Encounter Details Date Type Department Care Team Description 01/01/2013 Refill [facility], Primary Edison Tam, Refill Request (K-cl) [facility] 3rd Floor, Clinic [address] [place] [address] [place] [address] Social History Tobacco Use Types Packs/Day Years Used Date Former Smoker 1 18 Smokeless Tobacco: Former User Q uit: 09/20/1991 Alcohol Use Standard Drinks/Week Comments No 0 (1 standard drink = 0.6 oz pure alcoho l) Sex Assigned at Date Recorded Not on file documented as of this encounter Miscellaneous Notes Telephone Encounter - Edison Tam MD - 01/01/2013 7:52 PM CDT I reviewed her chart. Potassium was 3.6 at last check. She has labs ordered. I will provide 2 week supply ( 30 tabs) to get her through to next appoint ment with Dr Salazar. She needs to have the labs done that are ordered. She needs appointment with me if I am to continue to refill. She could transfer the order to Dr Salazar her GI provider. Thank you, Edison Tam. documented in this encounter Plan of Treatment Not on filedocumented as of this encounter Visit Diagnoses Diagnosis Hypopotassemia - Primary documented in this encounter Care Teams Can Filler Relationship Specialty Start Date End Date Edison Tam MD PCP - General Family Practice 09/21/11 07/22/[address] [place] [address] 4 [place] [address] documented as of this encounter
--- OUTSIDE RECORDS SUMMARY | 2021-10-24 12:04 | XMS_ITS | Encounter Summary ---
:1955 Author Organization [place] Address [address] [place] [address] Care Team Providers Name Role Phone Edison Tam MD Primary Care Provider Encounter Details Date Type Department Care Team Description 11/19/2012 Orders Only [facility] Low back pain [facility] 1st Floor, Clinic 1D Mail Code [address] [place], [place] [address] Social History Tobacco Use Types [...] Priority Date/Time Associated Comments Diagnosis XR SACROILIAC JOINT Routine 11/19/2012 9:30 AM Low back pain R esults for this 1/2 VIEWS CDT procedure are i n the results section. documented in this encounter Results X-ray Sacroiliac joint (11/19/2012 9:30 AM CDT) Anatomical Region Laterality Modality Abdomen/Pelvis Computed Radiography Specimen (Source) Anatomical Collection Method Collection Time Re ceived Time Location / / Volume Laterality 11/19/2012 9:30 AM CDT Impressions 11/19/2012 1:52 PM CDT Impression: No acute bone abnormality in the sacroiliac joints, with disc space narrowing noted in the visual ized lower lumbar spine. ADEN COSME MD I have personally reviewed the image and initial interpretation, and I agree with findings. Narrative 11/19/2012 1:52 PM CDT Exam: 3 views of the sacroiliac joints d ated 11/19/2012. Comparison: None. Clinical history: Back pain. Findings: 3 views of the sacroiliac join ts were obtained. The sacroiliac joints are patent. No erosive changes are noted. No abnormal areas of sclerosis are seen. Di sc space narrowing is noted in the lower lumbar spine. Question of b [place] right supra-acetabular region. Procedure Note Aden Cosme MD - 11/19/2012Form atting of this note might be different from the original. Exam: 3 views of the sacroiliac joints d ated 11/19/2012. Comparison: None. Clinical history: Back pain. Findings: 3 views of the sacroiliac join ts were obtained. The sacroiliac joints are patent. No erosive changes are noted. No abnormal areas of sclerosis are seen. Di sc space narrowing is noted in the lower lumbar spine. Question of b [place] right supra-acetabular region. IMPRESSION Impression: No acute bone abnormality in the sacroiliac joints, with disc space narrowing noted in the visual ized lower lumbar spine. ADEN COSME MD I have personally reviewed the image and initial interpretation, and I agree with findings. Debbi Juarez MD [facility] ORDER EB documented in this encounter Visit Diagnoses Diagnosis Low back pain Lumbago documented in this encounter Care Teams Submarine Diver Relationship Specialty Start Date End Date Edison Tam MD PCP - General Family Practice 09/21/11 07/22/14 909 [facility] 4 [place] [address] documented as of this encounter
--- OUTSIDE RECORDS SUMMARY | 2021-10-24 12:04 | XMS_ITS | Encounter Summary ---
:1955 Author Organization [place] Address [facility], [id number] [facility] [place] [address] Care Team Providers Name Role Phone Edison Tam MD Primary Care Provider Reason for Visit Reason Onset Date Comments Procedure 03/23/2013 Encounter Details Date Type Department Care Team Description 03/23/2013 Telephone [facility], Procedure [facility] MD [place] [address] COUR[facility] [place] [address] [place], [place] [phone] [place] [address] [place] [address] (Wo rk) Social History Tobacco Use Types Packs/Day Years Used Date Former Smoker 1 18 Smokeless Tobacco: Former User Q uit: 09/20/1991 Alcohol Use Standard Drinks/Week Comments No 0 (1 standard drink = 0.6 oz pure alcoho l) Sex Assigned at Date Recorded Not on file documented as of this encounter Miscellaneous Notes Telephone Encounter - Norma Hernandes RN - 03/24/2013 9:10 AM CST Cancelled appt in [facility]. Norma Hernandes, RN, BSN Survey And Mapping Technician [facility] [place] [employer] Telephone Encounter - Sabas Reyes MD - 03/23/2013 6:49 PM [employer] Called her. Apparently she has been having significant URI symptoms, lots of cough and secretions while talking with her. My recommendation was to hold off for now until she is completely well and to call us 5-7 days afterher symptoms completely improve, to reschedule the injection. Tomorrow's injection is therefore cancelled. [employer] Telephone Encounter - Norma Hernandes RN - 03/23/2013 3:37 PM CST Called pt back and she denies any fever and she states that she has had nasal congestion, sore throat, cold symptoms for a few wks. Told pt that it should be ok, but will ask Dr. Nelson. Will ask Dr. Nelson if ok for pt to still come for injection tomorrow. Norma Hernandes RN, BSN Survey And Mapping Technician [facility] [place] [employer] Telephone Encounter - Norma Hernandes RN - 03/23/2013 2:51 PM CST Pt called and left VM that she is scheduled for bilateral SI joint injections, but has been dealing with virus the last few wks and wondering if ok to have them done tomorrow. Norma Hernandes RN, BSN Survey And Mapping Technician [facility] [employer] documented in this encounter Plan of Treatment Not on filedocumented as of this encounter Visit Diagnoses Not on filedocumented in this encounter Care Teams Heavy Mobile Equipment Operator Relationship Specialty Start Date End Date Edison Tam MD PCP - General Family Practice 09/21/11 07/22/[address] [address] documented as of this encounter
--- OUTSIDE RECORDS SUMMARY | 2021-10-24 12:04 | XMS_ITS | Encounter Summary ---
:1955 Author Organization [place] Address [address] [place] [address] Care Team Providers Name Role Phone Edison Tam MD Primary Care Provider Encounter Details Date Type Department Care Team Description 12/05/2012 Orders Only Diabetes and Laisha Moraes Hypothyroid ism (Primary Dx); Endocrine AMD Yossi's thyroiditis; 6th Floor, Clinic 6A [address] [facility] Osteoporosis, unspecified [place] [facility] [address] [phone] [facility] 88 (Work) [place] [address] Social History Tobacco Use Types [...] as of this encounter Visit Diagnoses Diagnosis Hypothyroidism - Primary Unspecified hypothyroidism Yossi's thyroiditis Chronic lymphocytic thyroiditis Osteoporosis, unspecified documented in this encounter Care Teams Vat Washer Relationship Specialty Start Date End Date Edison Tam MD PCP - General Family Practice 09/21/11 07/22/[address] [address] documented as of this encounter
--- OUTSIDE RECORDS SUMMARY | 2021-10-24 12:04 | XMS_ITS | Encounter Summary ---
:1955 Author Organization [place] Address [facility] [place] [address] Care Team Providers Name Role Phone Edison Tam MD Primary Care Provider Reason for Visit Reason Onset Date Comments Pt. Information/instruction 12/10/2012 Encounter Details Date Type Department Care Team Description 12/10/2012 Telephone [facility] Carmita Kemp P t. [place] PMR RN Information/instructio [facility] 1st Floor, [facility] R[address] [place], [place] [phone] Social History Tobacco Use Types Packs/Day Years Used Date Former Smoker 1 18 Smokeless Tobacco: Former User Q uit: 09/20/1991 Alcohol Use Standard Drinks/Week Comments No 0 (1 standard drink = 0.6 oz pure alcoho l) Sex Assigned at Date Recorded Not on file documented as of this encounter Miscellaneous Notes Telephone Encounter - Carmita Kemp RN - 12/10/2012 4:58 PM CDT Confirmed appointment for Friday 12/15 at 1500, no allergy to contrast, no blood thinners. Reminded to bring a funeral limousine driver. documented in this encounter Plan of Treatment Not on filedocumented as of this encounter Visit Diagnoses Not on filedocumented in this encounter Care Teams Supervisor Money Room Relationship Specialty Start Date End Date Edison Tam MD PCP - General Family Practice 09/21/11 07/22/14 909 [facility] 4 [place] [address] documented as of this encounter
--- OUTSIDE RECORDS SUMMARY | 2021-10-24 12:04 | XMS_ITS | Encounter Summary ---
:1955 Author Organization [place] Address [address] [place] [address] Care Team Providers Name Role Phone Edison Tam MD Primary Care Provider Encounter Details Date Type Department Care Team Description 11/19/2012 Orders Only [facility] Positive RAIMUNDO (antinuclear Radhika-Wangensteen antibody ) Building 1st Floor, Clinic 1D Mail Code [address] [place], [place] [address] Social History Tobacco Use Types [...] Date/Time Associated Diagnosis Comme nts XR WRIST BILATERAL Routine 11/19/2012 10:00 AM Positive RAIMUNDO Re sults for this G/E 3 VIEWS CDT (antinuclear procedure are i n antibody) the results section. documented in this encounter Results X-ray bl Wrist G/E 3 vws (11/19/2012 10:00 AM CDT) Anatomical Region Laterality Modality Wrist, Hand Bilateral Computed Radiography Specimen (Source) Anatomical Collection Method Collection Time Re ceived Time Location / / Volume Laterality 11/19/2012 10:00 AM CDT Impressions 11/19/2012 10:45 AM CDT [...] findings documented in this encounter Care Teams Tray Room Worker Relationship Specialty Start Date End Date Edison Tam MD PCP - General Family Practice 09/21/11 07/22/14 742 [facility] 4 [place] [address] documented as of this encounter
--- OUTSIDE RECORDS SUMMARY | 2021-10-24 12:04 | XMS_ITS | Encounter Summary ---
:1955 Author Organization [facility] Address [address] [place] [address] Care Team Providers Name Role Phone Edison Tam MD Primary Care Provider Reason for Referral Specialty Diagnoses / Procedures Referred By Contact Refer red To Contact Edison Tam MD [address] [place] [address] 5 Referral ID Status Reason Start Date Expiration Date Visits Requ ested Visits Authorized PIECE ASSEMBLER Specialty Diagnoses / Procedures Referred By Contact Refer red To Contact Edison Tam MD [address] [place] [address] 5 Referral ID Status Reason Start Date Expiration Date Visits Requ ested Visits Authorized PIECE ASSEMBLER Specialty Diagnoses / Procedures Referred By Contact Refer marlin To Contact Edison Tam MD [address] [place] [address] 5 Referral ID Status Reason Start Date Expiration Date Visits Requ ested Visits Authorized PIECE ASSEMBLER Reason for Visit Reason Comments Dry Eye(s) Has gotten worse lately. Bunion On left foot that needs surg myra. Back Pain Low back pain that is now ca using her legs to feel as if they are falling asleep. Radiology Visit Also would like to discuss pratibha aving her next mammo. Encounter Details Date Type Department Care Team Description 04/02/2013 Office Visit Physicians, Primary Edison Tam Sacro-iliac pain (Primary Dx); Care Center MD Marcia Numbness and tingling of left leg; 3rd Floor, Clinic 3A [address] [facility] [address] Dry eyes, bilateral; [place] 4 Crohn's disease of both small and large intestine with complication (H); Building [place], [place] Bunion, left; [address] [place] [place] [address] Routine general medical examination at a health care facility; [facility] [phone] Hypothyroidism; [place], [place] (Work) Chronic steroid use; [address] Crohn's disease (H) Social History Tobacco Use Types Packs/Day Years Used Date Former Smoker 1 18 Smokeless Tobacco: Former User Q uit: 09/20/1991 Alcohol Use Standard Drinks/Week Comments No 0 (1 standard drink = 0.6 oz pure alcoho l) Sex Assigned at Date Recorded Not on file documented as of this encounter Last Filed Vital Signs Vital Sign Reading Time Taken Comments Blood Pressure 88/61 04/02/2013 10:23 AM FOOT PIECE ASSEMBLER Pulse 86 04/02/2013 10:23 AM FOOT PIECE ASSEMBLER Temperature - - Respiratory Rate - - Oxygen Saturation - - Inhaled Oxygen Concentration - - Weight 52.2 kg (115 lb) 04/02/2013 10:23 AM FOOT PIECE ASSEMBLER Height - - Body Mass Index 21.03 01/14/2013 2:06 PM FOOT PIECE ASSEMBLER documented in this encounter Patient Instructions Patient InstructionsAndrew Kong, TELEVISION PRESENTER - 04/02/2013 10:23 AM FOOT PIECE ASSEMBLER Primary Care [phone] (3rd Floor [address]WB, [address]) Breast Center [phone] ([facility] 1st floor) Ophthalmology [phone] ([address], [address]) U Ortho [phone] ([facility][note 3][address], [address]) Podiatry [phone] (6th Floor PWB, [address]) Radiology (Imaging Center) [phone] (1st Floor [address]WB, [address]) Primary Care Center Medication Refill Request Information: * Please contact your pharmacy regarding ANY request for medication refills. [facility] Prescription Fax = [phone] * Please allow 3 business days for [...] the results and signed off on them. PIECE ASSEMBLER documented in this encounter Progress Notes Edison Tam MD - 04/02/2013 5:04 PM CST Maria E Mcfadden here for follow up of chronic health conditions. Concerns are as follows: Crohn's:She is very happy with new GI provider, Dr Charan Salazar. Her Crohn's is under great control. She has a flex Sig 08/21. Medications were changed. She will have a follow-up with Dr Salazar in thenext month. She will determine with him the next time for flex sig. Musculoskeletal:She has noted increasing back pain, SI joint dysfunction and weakness, numbness in left leg thigh. She also does not have as much strength in Left leg. She has a bunion on left foot. Raynaud s. She has very dry eyes. HCM: She needs mammogram ordered. I reviewed last PAP normal 10/2011, next due 10/2014. She had a flu vaccine in 12/2012 We reviewed advanced directives. She has an old one at home. She will complete new form. Patient Active Problem List Diagnosis ??? Yossi's [...] ??? Numbness and tingling of left leg Past Medical History Diagnosis Date ??? Crohn's [...] ??? Yossi's disease Past Surgical History Procedure Date ??? Appendectomy [...] Surgeon: Charan Salazar MD; Location: [facility] Current Outpatient Prescriptions Medication ??? acetaminophen (TYLENOL) 500 MG tablet ??? Levothyroxine Sodium 50 MCG CAPS ??? rOPINIRole (REQUIP) 1 MG tablet ??? predniSONE (DELTASONE) 1 MG tablet ??? VANCOMYCIN HCL PO ??? Potassium Chloride CR 8 MEQ CPCR ??? propranolol (INDERAL) 20 MG tablet ??? predniSONE (DELTASONE) 5 MG tablet ??? vitamin D (ERGOCALCIFEROL) 85389 UNIT capsule ??? buPROPion (WELLBUTRIN SR) 150 MG 12 hr tablet ??? ALPRAZolam (XANAX) 0.5 MG tablet ??? calcium carbonate (TUMS) 500 MG chewable tablet ??? ORDER FOR DME ??? multivitamin (THERA-PLUS) LIQD ??? EKFC-NNS-ESIUMYU ??? Carboxymethylcellulose Sodium (REFRESH TEARS OP) ??? fluorouracil (EFUDEX) 5 % cream ??? cyanocobalamin 1000 MCG/ML injection ??? guaiFENesin (MUCINEX) 600 MG 12 hr tablet ??? Menthol, Topical Analgesic, (ICY HOT EX) ??? Calcium Citrate-Vitamin D (CITRACAL + D PO) Allergies Allergen Reactions ??? Humira Rash ??? [...] Topics ??? Smoking status: Former Smoker -- 1.0 packs/day for 18 years ??? Smokeless tobacco: Former User Quit date: 09/20/1991 ??? Alcohol Use: No ??? Drug Use: No Comment: no longer ??? Sexually Active: Not Currently -- Male partner(s) Comment: twice Other Topics Concern ??? Not on file Social History Narrative [place]oved [facility] [place] [facility]. She is living in an apartment [...] ??? Colon Polyps No family hx of 8 point ROS of systems including Constitutional, Eyes, Gastroenterology, Muscularskeletal, Psychiatric were all negative except for pertinent positives noted in my HPI. BP 88/61 Pulse 86 Wt 52.164 kg (115 lb) Constitutional: Oriented to person, place, and time. [...] and no mass. Musculoskeletal: Chronic scaring right wrist with decreased movement of right thumb. Left thigh muscle mass slightly less than right Lymphadenopathy: No cervical adenopathy. Neurological: Alert and oriented to person, place, and time. Normal strength. On right, slightly decreased on left leg. Normal DTR 2 + patellar, achilles. Skin: Skin is warm and dry except toes are josué, chronic thin skin. Psychiatric: Normal mood, affect and behavior is normal. Results for orders placed in visit on [...] Range TSH 1.08 0.4 - 5.0 mU/L CT LUMBAR SPINE W/O CONTRAST Narrative: Lumbar [...] left lateral portion of the L3-L4 intervertebral disc, which is bone on bone. The L4-L5 intervertebral space is obliterated and [id number]. Vertebral body heights are maintained. However, there [...] pars defect of L5. 4. Diffuse osteopenia. CRP INFLAMMATION Component Value Range CRP Inflammation <5.0 0.0 - 8.0 mg/L ERYTHROCYTE SEDIMENTATION RATE AUTO Component Value Range Sed Rate 5 0 - 30 mm/h Maria E was seen today for dry eye(s), bunion, back pain and radiology visit. Diagnoses and associated orders for this visit: Sacro-iliac pain - Vitamin D Deficiency - CT Lumbar Spine w/o Contrast; Future - ORTHOPEDICS ADULT REFERRAL - Hemoglobin A1c - CT Lumbar Spine w/o Contrast Numbness and tingling of left leg - Lipid panel reflex to direct LDL - Comprehensive metabolic panel - CBC with platelets differential - TSH with free T4 reflex - CT Lumbar Spine w/o Contrast; Future - ORTHOPEDICS ADULT REFERRAL - Hemoglobin A1c - CT Lumbar Spine w/o Contrast Dry eyes, bilateral - OPHTHALMOLOGY ADULT REFERRAL Crohn's disease of both small and large intestine with complication - OPHTHALMOLOGY ADULT REFERRAL Bunion, left - PODIATRY/FOOT & ANKLE SURGERY REFERRAL Routine general medical examination at a health care facility - Mammo Screening digital (bilat); Future HCM: She needs mammogram ordered. I reviewed last PAP normal 10/2011, next due 10/2014. She had a flu vaccine in 12/2012 We reviewed advanced directives. She has an old one at home. She will complete new form. Hypothyroidism Chronic steroid use - Hemoglobin A1c Crohn's disease Other Orders - acetaminophen (TYLENOL) 500 MG tablet; Take 500-1,000 mg by mouth every 8 hours as needed - Cancel: Erythrocyte sedimentation rate auto - Cancel: CRP inflammation - CRP inflammation - Erythrocyte sedimentation rate auto Last PHQ-9 score on record= 19 Most related to recent severe winter and Seasonal affective. She indicates she is feeling better. She is doing much better. I reviewed her labs after she left, all look great. All questions were addressed and voiced understanding and agreement with the above. Edison Tam PIECE ASSEMBLER documented in this encounter Nursing Notes 04/02/2013 10:25 AM CST >> ANDREW KONG CMA [facility] Apr 02, 2013 10:25 AM Patient presents with: Dry Eye(s) - Has gotten worse lately. Bunion - On left foot that needs surgery. Back Pain - Low back pain that is now causing her legs to feel as if they are falling asleep. Radiology Visit - Also would like to discuss having her next mammo. ANDREW KONG CMA at 10:23 AM on 04/02/2013 documented in this encounter Plan of Treatment Pending Results Name Type Priority Associated Diagnoses Date/Ti me CT Lumbar Spine w/o Imaging Routine Numbness and tingling of 04/02/2013 12:34 PM Contrast left leg FOOT PIECE ASSEMBLER Sacro-iliac pain Scheduled Referrals Name Type Priority Associated Diagnoses Order S chedule OPHTHALMOLOGY ADULT Referral Routine Dry eyes, bi lateral Ordered: 04/02/2013 REFERRAL Crohn's disease of both small and large intestine with complication (H) PODIATRY/FOOT & ANKLE Referral Routine Bunion, left Ordere d: 04/02/2013 SURGERY REFERRAL ORTHOPEDICS ADULT Referral Routine Sacro-iliac pa in Ordered: 04/02/2013 REFERRAL Numbness and tingling of left leg documented as of this encounter Procedures Procedure Name Priority Date/Time Associated Comments Diagnosis CBC WITH PLATELETS & Routine 04/02/2013 12:54 Numbness and Res ults for this DIFFERENTIAL PM FOOT PIECE ASSEMBLER tingling of left procedure a re in leg the results section. VITAMIN D DEFICIENCY Routine 04/02/2013 12:54 Sacro-iliac pain Results for this SCREENING PM FOOT PIECE ASSEMBLER procedure are i n the results section. TSH WITH FREE T4 Routine 04/02/2013 12:54 Numbness and Results for this REFLEX PM FOOT PIECE ASSEMBLER tingling of left procedure a re in leg the results section. LIPID REFLEX TO DIRECT Routine 04/02/2013 12:54 Numbness and R esults for this LDL PANEL PM FOOT PIECE ASSEMBLER tingling of left procedure a re in leg the results section. HEMOGLOBIN A1C Routine 04/02/2013 12:54 Sacro-iliac ashwini n Results for this PM FOOT PIECE ASSEMBLER Numbness and procedure are i n tingling of left the results leg section. Chronic steroid use ERYTHROCYTE Routine 04/02/2013 12:54 Results for this SEDIMENTATION RATE PM FOOT PIECE ASSEMBLER procedure are in AUTO the results section. CRP INFLAMMATION Routine 04/02/2013 12:54 Results for this PM FOOT PIECE ASSEMBLER procedure are i n the results section. COMPREHENSIVE Routine 04/02/2013 12:54 Numbness and Results fo r this METABOLIC PANEL PM FOOT PIECE ASSEMBLER tingling of left procedur e are in leg the results section. CT LUMBAR SPINE W/O Routine 04/02/2013 12:33 Numbness and Resu lts for this CONTRAST PM FOOT PIECE ASSEMBLER tingling of left procedure a re in leg the results Sacro-iliac pain section. documented in this encounter Results Erythrocyte sedimentation rate auto (04/02/2013 12:54 PM FOOT PIECE ASSEMBLER) P athologist Signature Sed Rate 5 0 - 30 mm/h [facility] Specimen Anatomical Collection Method Collection Time Receive d Time (Source) Location / / Volume Laterality 04/02/2013 12:54 04/02/2013 PM FOOT PIECE ASSEMBLER 12:56 PM FOOT PIECE ASSEMBLER Edison Tam MD LAB - BLOOD ORDERABLES Performing Organization Address City/State/ZIP Code Phon e Number [facility] [address] [place], [place] [id number] [place] [address] LABS CRP inflammation (04/02/2013 12:54 PM FOOT PIECE ASSEMBLER) Analysis Performed At Patho logist Time Signature CRP Inflammation <5.0 0.0 - 8.0 [facility] mg/L [facility] Specimen Anatomical Collection Method Collection Time Receive d Time (Source) Location / / Volume Laterality 04/02/2013 12:54 04/02/2013 PM FOOT PIECE ASSEMBLER 12:56 PM FOOT PIECE ASSEMBLER Edison Tam MD LAB - BLOOD ORDERABLES Performing Organization Address City/[facility]/ZIP Code Phon e Number [facility] [address] [place], [place] [phone] [place] [address] LABS Hemoglobin A1c (04/02/2013 12:54 PM FOOT PIECE ASSEMBLER) P athologist Signature Hemoglobin A1C 5.5 4.3 - 6.0 [facility] Specimen Anatomical Collection Method Collection Time Receive d Time (Source) Location / / Volume Laterality Blood specimen 04/02/2013 12:54 4 (specimen) PM FOOT PIECE ASSEMBLER 12:56 PM FOOT PIECE ASSEMBLER Edison Tam MD LAB - BLOOD ORDERABLES Performing Organization Address City/[facility]/ZIP Code Phon e Number [id number] [place] [address] LABS Vitamin D Deficiency (04/02/2013 12:54 PM FOOT PIECE ASSEMBLER) P athologist Signature Vitamin D 67 30 - 75 [facility] Deficiency ug/L [facility] screening Comment: Season, race, dietary intake, and treatm ent affect the concentration of 05-bhtmadh-Empxckc D. Values may decrea se during winter months and increase during summer months. Values less than 30 ug/L may indicate Vitamin D deficiency. Vitamin D determiniation is routinely p erformed by an immunoassay specific for 25 hydroxyvitamin D3. ??If an individua l is on vitamin D2 (ergocalciferol) supplementation, please specify 25 [place] v itamin D2 and D3 level determination by LCMSMS test [id number]. ??For questions, pl ease contact the laboratory at [phone]. Specimen Anatomical Collection Method Collection Time Receive d Time (Source) Location / / Volume Laterality Blood specimen 04/02/2013 12:54 4 (specimen) PM FOOT PIECE ASSEMBLER 12:56 PM FOOT PIECE ASSEMBLER Edison Tam MD LAB - BLOOD ORDERABLES Performing Organization Address City/[facility]/ZIP Code Phon e Number [facility] [address] LABS TSH with free T4 reflex (04/02/2013 12:54 PM FOOT PIECE ASSEMBLER) P athologist Signature TSH 1.08 0.4 - 5.0 [facility] mU/L [facility] Specimen Anatomical Collection Method Collection Time Receive d Time (Source) Location / / Volume Laterality Blood specimen 04/02/2013 12:54 4 (specimen) PM FOOT PIECE ASSEMBLER 12:56 PM FOOT PIECE ASSEMBLER Edison Tam MD LAB - BLOOD ORDERABLES Performing Organization Address City/[facility]/ZIP Code Phon e Number [facility] [address] [place], [place] [phone] [place] [address] LABS CBC with platelets differential (04/02/2013 12:54 PM FOOT PIECE ASSEMBLER) Patholo gist Method Time Signature WBC 8.2 4.0 - [facility] 11.0 [facility] 10e9/L [facility] RBC Count 4.87 3.8 - 5.2 [facility] 10e12/L [facility] Hemoglobin 14.8 11.7 - [facility] 15.7 g/dL [facility] Hematocrit 45.0 35.0 - [facility] 47.0 % [facility] MCV 92 78 - 100 [facility] fl [facility] MCH 30.4 26.5 - [facility] 33.0 pg [facility] MCHC 32.9 31.5 - [facility] 36.5 g/dL [facility] RDW 12.7 10.0 - [facility] 15.0 % [facility] Platelet Count 218 150 - 450 [facility] 10e9/L [facility] Diff Method Automated [facility] Method [facility] % Neutrophils 83.0 % [facility] % Lymphocytes 10.4 % [facility] % Monocytes 5.7 % [facility] % Eosinophils 0.5 % [facility] % Basophils 0.2 % [facility] % Immature 0.2 % [facility] Granulocytes [facility] Absolute 6.8 1.6 - 8.3 [facility] Neutrophil 10e9/L [facility] Absolute 0.9 0.8 - 5.3 [facility] Lymphocytes 10e9/L [facility] Absolute 0.5 0.0 - 1.3 [facility] Monocytes 10e9/L [facility] Absolute 0.0 0.0 - 0.7 [facility] Eosinophils 10e9/L [facility] Absolute 0.0 0.0 - 0.2 [facility] Basophils 10e9/L [facility] Abs Immature 0.0 0 - 0.4 [facility] Granulocytes 10e9/L [facility] Specimen Anatomical Collection Method Collection Time Receive d Time (Source) Location / / Volume Laterality Blood specimen 04/02/2013 12:54 4 (specimen) PM FOOT PIECE ASSEMBLER 12:56 PM FOOT PIECE ASSEMBLER Edison Tam MD LAB - BLOOD ORDERABLES Performing Organization Address City/State/ZIP Code Phon e Number [facility] [address] [place], [place] [phone] [place] [address] [facility] Comprehensive metabolic panel (04/02/2013 12:54 PM FOOT PIECE ASSEMBLER) P athologist Signature Sodium 137 133 - 144 [facility] mmol/L [facility] Potassium 3.7 3.4 - 5.3 [facility] mmol/L [facility] Chloride 102 94 - 109 [facility] mmol/L [facility] Carbon Dioxide 25 20 - 32 [facility] mmol/L [facility] Anion Gap 10 6 - 17 [facility] mmol/L [facility] Glucose 91 60 - 99 [facility] mg/dL [facility] Urea Nitrogen 13 7 - 30 [facility] mg/dL [facility] Creatinine 0.84 0.52 - [facility] 1.04 mg/dL [facility] GFR Estimate 70 >60 [facility] mL/min/1.7 [place] [facility] GFR Estimate If 84 >60 [facility] Black mL/min/1.[address] LABS Calcium 9.1 8.5 - 10.4 [facility] mg/dL [facility] Bilirubin Total 0.3 0.2 - 1.3 [facility] mg/dL [facility] Albumin 4.2 3.3 - 4.9 [facility] g/dL [facility] Protein Total 6.9 6.8 - 8.8 [facility] g/dL [facility] Alkaline 83 40 - 150 [facility] Phosphatase U/L [facility] ALT 38 0 - 50 U/L [facility] AST 30 0 - 45 U/L [facility] Specimen Anatomical Collection Method Collection Time Receive d Time (Source) Location / / Volume Laterality Blood specimen 04/02/2013 12:54 4 (specimen) PM FOOT PIECE ASSEMBLER 12:56 PM FOOT PIECE ASSEMBLER Edison Tam MD LAB - BLOOD ORDERABLES Performing Organization Address City/[facility]/ZIP Code Phon e Number [facility] [address] LABS (ABNORMAL) Lipid panel reflex to direct LDL (04/02/2013 12:54 PM FOOT PIECE ASSEMBLER) athologist Signature Cholesterol 203 (H) 0 - 200 [facility] mg/dL [facility] Comment: LDL Cholesterol is the primary guide to therapy. The NCEP recommends further evaluation of: patients with cholesterol greater than 200 mg/dL if additional risk facto rs are present, cholesterol greater than 240 mg/dL, triglycerides greater than 1 50 mg/dL, or HDL less than 40 mg/dL. Triglycerides 159 (H) 0 - 150 mg/dL [facility] LAB[facility] HDL Cholesterol 84 50 - 110 mg/dL [facility] LDL Cholesterol Calculated 87 0 - 129 mg/dL [facility] Comment: LDL Cholesterol is the primary guide to therapy: LDL-cholesterol goal in high risk patients is <100 mg/dL and in very high risk patients is <70 mg/dL. VLDL-Cholesterol 32 (H) 0 - 30 mg/dL [facility] Cholesterol/HDL Ratio 2.4 0.0 - 5.0 [facility] Specimen Anatomical Collection Method Collection Time Receive d Time (Source) Location / / Volume Laterality Blood specimen 04/02/2013 12:54 4 (specimen) PM FOOT PIECE ASSEMBLER 12:56 PM FOOT PIECE ASSEMBLER Edison Tam MD LAB - BLOOD ORDERABLES Performing Organization Address City/[facility]/ZIP Code Phon e Number [facility] [address] [place] [address] [facility] LABS CT Lumbar Spine w/o Contrast (04/02/2013 12:33 PM FOOT PIECE ASSEMBLER) Anatomical Region Laterality Modality Spine, SUBRAD CT MSK, [facility] CT SPINE Compu jose luis Tomography Specimen (Source) Anatomical Collection Method Collection Time Re ceived Time Location / / Volume Laterality 04/02/2013 12:33 PM FOOT PIECE ASSEMBLER Impressions 04/03/2013 3:59 PM FOOT PIECE ASSEMBLER Impression: 1. Severe spondylosis of the lumbar spin e worst at L3-L4 and L4-L5 as described above, not significantly valles ed from comparison. 2. Stable postsurgical changes of L3-L4 decompressive laminectomies. 3. Stable bilateral pars defect of L5. 4. Diffuse osteopenia. LANI WATERS MD I have personally reviewed the image and initial interpretation, and I agree with findings. Narrative 04/03/2013 3:59 PM FOOT PIECE ASSEMBLER Lumbar spine CT without contrast History: Left leg weakness numbness and back pain. Comparison: CT of the lumbar spine dated 09/12/2012 and 12/03/2011. Technique: Helical image data acquisitio n through the lumbar spine with axial, coronal and sagittal reconst ructions. Images were reviewed in soft tissue and bone windows. Findings: 5 lumbar type vertebral bodies are assumed for purposes of this dictation. Mild convex right scolio sis. Grade 1 retrolisthesis of L3 on L4. Multilevel intervertebral disc height narrowing. Severe narrowing of the left lateral portion of the L3-L4 intervertebral disc. The L4-L5 intervertebral space is obliterated. Vertebral body heights are maintained. However, there a re severe endplate degenerative changes with subchondral sc lerosis, osteophytosis and cyst formation of the inferior L3 endpla te, superior and inferior L4 endplates, and superior L5 endplate. Dima ateral pars interarticularis defect of the L5 vertebrae. 1.2 cm hyper dense sclerotic focus in the right supra-acetabular region, which cor relates with finding on pelvis plain film dated 11/19/2012, and likely r epresents a bone island. Increased reticular markings consistent with diffuse osteopenia. Paraspinal soft tissues are unremarkable . Findings on a level by level basis are a s follows: L1-L2: Circumferential disc bulge neurof oraminal stenosis on the right. No significant spinal canal or ne ural foraminal narrowing. L2-L3: ??Circumferential disc bulge whic h indents the thecal sac with mild spinal canal stenosis. No significa nt neural foraminal narrowing. L3-L4: Circumferential disc bulge, which presses on the thecal sac, with loss of disc height posteriorly. St atus post decompressive laminectomy. No significant spinal canal narrowing. Bilateral facet hypertrophy with mild to moderate bilate ral neural foraminal stenosis. L4-L5: Severe disc height loss with reac tive endplate changes. Status post decompressive laminectomy. No signi ficant spinal canal narrowing. Moderate bilateral neural foraminal narr owing. L5-S1: Bilateral pars defects at L5. No significant spinal canal or neural foraminal stenosis. Procedure Note Lani Waters MD - 04/03/[address] without contrast History: Left leg weakness numbness and back pain. Comparison: CT of the lumbar spine dated 09/12/2012 and 12/03/2011. Technique: Helical image data acquisitio n through the lumbar spine with axial, coronal and sagittal reconst ructions. Images were reviewed in soft tissue and bone windows. Findings: 5 lumbar type vertebral bodies are assumed for purposes of this dictation. Mild convex right scolio sis. Grade 1 retrolisthesis of L3 on L4. Multilevel intervertebral disc height narrowing. Severe narrowing of the left lateral portion of the L3-L4 intervertebral disc. The L4-L5 intervertebral space is obliterated. Vertebral body heights are maintained. However, there a re severe endplate degenerative changes with subchondral sc lerosis, osteophytosis and cyst formation of the inferior L3 endpla te, superior and inferior L4 endplates, and superior L5 endplate. Dima ateral pars interarticularis defect of the L5 vertebrae. 1.2 cm hyper dense sclerotic focus in the right supra-acetabular region, which cor relates with finding on pelvis plain film dated 11/19/2012, and likely r epresents a bone island. Increased reticular markings consistent with diffuse osteopenia. Paraspinal soft tissues are unremarkable . Findings on a level by level basis are a s follows: L1-L2: Circumferential disc bulge neurof oraminal stenosis on the right. No significant spinal canal or ne ural foraminal narrowing. L2-L3: Circumferential disc bulge which indents the thecal sac with mild spinal canal stenosis. No significa nt neural foraminal narrowing. L3-L4: Circumferential disc bulge, which presses on the thecal sac, with loss of disc height posteriorly. St atus post decompressive laminectomy. No significant spinal canal narrowing. Bilateral facet hypertrophy with mild to moderate bilate ral neural foraminal stenosis. L4-L5: Severe disc height loss with reac tive endplate changes. Status post decompressive laminectomy. No signi ficant spinal canal narrowing. Moderate bilateral neural foraminal narr owing. L5-S1: Bilateral pars defects at L5. No significant spinal canal or neural foraminal stenosis. IMPRESSION Impression: 1. Severe spondylosis of the lumbar spin e worst at L3-L4 and L4-L5 as described above, not significantly valles ed from comparison. 2. Stable postsurgical changes of L3-L4 decompressive laminectomies. 3. Stable bilateral pars defect of L5. 4. Diffuse osteopenia. LANI WATERS MD I have personally reviewed the image and initial interpretation, and I agree with findings. 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 [address] [place] [address] documented as of this encounter
--- OUTSIDE RECORDS SUMMARY | 2021-10-24 12:04 | XMS_ITS | Encounter Summary ---
:1955 Author Organization [place] Address [address] [facility] [place] [address] Care Team Providers Name Role Phone Edison Tam MD Primary Care Provider Reason for Referral - Closed Specialty Diagnoses / Procedures Referred By Contact Refer red To Contact Diagnoses Disorders of sacrum Lumbago Nate Laughlin MD [facility] [address] [place] [address] Referral ID Status Reason Start Date Expiration Date Visits Requ ested Visits Authorized [id number] Closed 11/25/2012 05/24/2013 1 1 Reason for Visit Reason Comments Back Pain Bilateral SI joint pain, L > R. Has noticed for years. Encounter Details Date Type Department Care Team Description 11/25/2012 Office Visit [facility] Nate Laughlin isorders of sacrum (Primary Dx); [place] [facility] MD Tyrell Lumbago [facility] 1st Floor, [address] [address] [place] [id number] [phone] Social History Tobacco Use Types Packs/Day Years [...] - - Weight 50.8 kg (112 lb) 11/25/2012 8:56 AM CDT Height 157.5 cm (5' 2) 11/25/2012 8:56 AM CDT Body Mass Index 20.49 11/25/2012 8:56 AM CDT documented in this encounter Patient Instructions Patient InstructionsNate Lauglhin MD - 11/25/2012 9:50 AM CDT Patient Information [facility] Location: Clinic [address] [place] [address] Special Instructions/Precautions: 1. No need to fast unless advised to do so. 2. You will need to stop blood thinners like Plavix for 7 days and coumadin (Warfarin) for 5 days. Ablood draw for INR will be needed on the day of procedure if you are on coumadin. Report it to your doctor or call the phone number above for that arrangement. Make sure to talk to your primary doctor or director instructional material before you stop the above medications 3. If you are allergic to contrast, lidocaine/novocaine, or steroids please inform us in advance. 4. You will need a intermodal truck driver to bring you home as the procedure may make you feel lightheaded or may cause some numbness and/or weakness of the legs. 5. Make sure to take all your other medications as before unless advised otherwise 6. Sedation is not used for these procedures. We will advise you in advance if it would be needed. 7. Procedures are performed under x-ray guidance and require injecting contrast besides the medications. 8. Please dress casually 9. Please arrive about 30 minutes before the procedure. 10. The procedure requires numbing the skin and soft tissue as a part of the injection process and for the most part that is the painful part of the procedure for few seconds. 11. Commonly you would be observed for about 15 minutes post injection. 12. Post procedure numbness, lightheadedness, mild weakness, etc. is common 13. Please ask any questions you have prior to the injection. Also, please verify the affected side with your physician. 14. If you need to cancel your appointment, please do so within 24 hours. Comments/Special Information/Precautions: Your appointment is scheduled for One pm Dec 08. Please arrive 15 minutes early. If you need to cancel or reschedule your appointment please call Directions to the [place] From the north: 1. Take [address]. 2. Take [address] to [place]. 3. Take the [place] exit and merge to the far left laura. 4. Turn left on [address]. 5. Turn right on [address]. 6. Turn left on [address]. The Patient/Visitor parking ramp will be on your right. From the south: 1. Take [address] north to [address]. 2. Take [address] to [place]. 3. Take the [place] exit and merge to the far left [place]ura. 4. Turn left on [address]. 5. Turn right on [address]. 6. Turn left on [address]. The Patient/Visitor parking ramp will be on your right. From the east or west: 1. Take [address] (east or west) to [place]. 2. Take the [place] exit and merge to the far left laura. 3. Turn left on [address]. 4. Turn right on [address]. 5. Turn left on [address]. The Patient/Visitor parking ramp will be on your right. Animal Biologist parking is available in front the [facility] documented in this encounter Progress Notes Robert Munguia MD - 11/25/2012 11:07 AM CDT Physician requesting consultation: Dr. Edison Tam CC: Sacroiliac joint pain, bilateral HISTORY OF PRESENT ILLNESS: Maria E Coley is a very pleasant 56-year-old woman who presents todaywith chronic bilateral SI joint pain. She states that the pain is stable but has gone on for years. She moved from [place] approximately 2 years ago and prior to that time had been getting SI [facility] annually and this provided good relief throughout the year after the injection. However, she has not had an injection now for 2 years. The pain came on gradually. She states that this is secondary to arthritis in her SI joints. She does feel that this did start sometime in the when she was first diagnosed with Crohn's disease. Most recently the pain in her SI joints, in addition to thefocal pain that she does typically get, also now radiates down the anterior thighs bilaterally. The pain itself is worse in the left side than the right. It does not go past the knees. She does find that the pain is worst in the morning and is better with stretching and Alexandre Chi, which she does frequently help maintain her range of motion. She denies any bowel or bladder incontinence except as relatedto her Crohn's disease. She has noticed some occasional weakness in the bilateral lower extremities and points to her quadricep muscles bilaterally and states that she has found that they sometimes it will buckle on her. She has had PT in the distant past and feels that her body has changed a lot since that time, but when she did have the physical therapy in the distant past she did find this helpful. She has not had chiropractic treatment. She does find that the pain is highly variable but can be sometimes worse with standing or sitting for prolonged periods of time. It is worse with walking and lying down. History is significant for Crohn's disease. She has had 3 colon resections between the late and late . She has had 2 back surgeries, in 2005 and 2009. She had laminectomies at L4-L5. PAST MEDICAL HISTORY: Also in addition to Crohn's disease, significant for Yossi's thyroiditis, a fall down the stairs leading to mild traumatic brain injury and right wrist fracture last year, andunspecified connective tissue disorder. REVIEW OF SYSTEMS: The patient admits unintentional weight loss, night pain, difficulty sleeping. She admits headaches, history of sinusitis. She admits numbness and tingling and weakness as noted in HPI. She admits depression, admits arthritis, swollen joints, fibromyalgia, painful joints and lupus, admits heart murmur and low blood pressure, admits shortness of breath and cough, Crohn's disease. 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 She has thyroid issues and heat intolerance. She admits anemia and bruising. FAMILY HISTORY: Her mother of lung cancer, father has rheumatoid arthritis, oldest brother asthma, oldest sister MS and Yossi's thyroiditis. Her twin sister has Sjogren's and an acoustic neuroma in addition to also having Yossi's thyroiditis. SOCIAL HISTORY: The patient is single, , has no children. She is not employed at this time. PHYSICAL EXAMINATION: The patient is able to stand from a seated position without difficulty. Forward bending is provocative of her SI joint pain. She does have tenderness to palpation over the SI joints bilaterally, no significant tenderness to palpation along the paraspinal muscles in the L-spine orthe bony elements along the midline L-spine. Strength in bilateral lower extremities is full. She does report diminished sensation to light touch along the left S1 distribution compared to the oppositeside. DTRs 2/4 for patellar and Achilles reflexes bilaterally. No ankle clonus. Babinski is mute bilaterally. She has a negative straight leg raise bilaterally with range of motion to 90 degrees bilaterally. Negative NINA and FADIR tests, negative Gaenslen's, negative ASIS compression test. Her ASIS are symmetric bilaterally with good motion with springing. IMAGING: On review of the x-rays of the back and SI joints, there is no significant sclerosis. A CT was obtained in September that did show some narrowing of the neural foramen at L3 with very mild L3 retrolisthesis. ASSESSMENT AND PLAN: Ms. Coley is a very pleasant 56-year-old female presenting today with history of chronic SI joint arthropathy. She has had a good response in the past to SI joint injections which continue to be appropriate at this time. We will schedule her for bilateral SI joint injections in 2 weeks. The patient also complains of some radicular type symptoms in the bilateral anterior thighs. If these problems persist further workup in the lumbar spine may be warranted. Referral made for physical therapy as this may help with her radicular symptoms as well. We will follow up with Ms. Coley for her SI joint corticosteroid injections with x-ray guidance and look forward to seeing her again at that time. Thank you for your referral for care of this very pleasant patient. Patient was seen and discussed with Dr. Qian Munguia DO Dictating on behalf of Nate Laughlin MD Pt was examined and d/w resident, Dr. Robert Munguia. Pertinent hx was verified. I agree with above plan of care. Nate Laughlin MD documented in this encounter Nursing Notes 11/25/2012 9:00 AM CDT >> Coleman Barrera, ATC Tue Nov 25, 2012 8:59 AM Reason For Visit: Patient presents with: Back Pain - Bilateral SI joint pain, L >R. Has noticed for years. Pain Assessment Patient Currently in Pain: Yes 0-10 Pain Scale: 3 Primary Pain Location: Sacrum Pain Orientation: Right;Left Pain Descriptors: Constant;Aching Alleviating Factors: NSAIDS Aggravating Factors: Other (comment) (certain activities) Oswestry Disability Index (KEYLA ?? Binh Vicente 1980, All rights reserved) Section 1 - Pain Intensity: The pain is fairly severe at the moment. Section 2 - Personal Care (washing, dressing, etc.) : I need some help but manage most of my personal care. Section 3 - Lifting: Pain prevents me from lifting heavy weights but I can manage light to medium weights if they are conveniently positioned. Section 4 - Walking: Pain prevents me walking more than one mile. Section 5 - Sitting: I can only sit in my favorite chair as long as I like. Section 6 - Standing: Pain prevents me from standing for more than 10 minutes. Section 7 - Sleeping: Because of pain I have less than 4 hours sleep. Section 8 - Sex life : Not answered/NA Section 9 - Social Life: Pain has restricted my social life and I do not go out as often. Section 10 - Traveling: Pain is bad but I am able to manage trips over two hours. Sum: 23 Count: 9 Oswestry Score (%): 51.11 % Ht 1.575 m (5' 2) Wt 50.803 kg (112 lb) BMI 20.49 kg/m2 documented in this encounter Miscellaneous Notes Initial Assessments - Scan, Non-Provider - 12/30/2012 9:14 AM CDT Initial Assessments - Keisha Non-Provider - 12/30/2012 9:14 AM CDT documented in this encounter Plan of Treatment Scheduled Orders Name Type Priority Associated Diagnoses Order S rosie [facility] - inj, Imaging Routine Disorders of sacrum Or dered: 11/25/2012 sacroiliac joint Scheduled Referrals Name Type Priority Associated Diagnoses Order S rosie [facility], HAND, AND Referral Routine Disorders of s acrum Ordered: 11/25/2012 CHIROPRACTIC REFERRAL Lumbago documented as of this encounter Visit Diagnoses Diagnosis Disorders of sacrum - Primary Lumbago documented in this encounter Care Teams Graphics Production Specialist Relationship Specialty Start Date End Date Edison Tam MD PCP - General Family Practice 09/21/11 07/22/[address] [place] [address] [address] [place] [address] documented as of this encounter
--- OUTSIDE RECORDS SUMMARY | 2021-10-24 12:04 | XMS_ITS | Encounter Summary ---
:1955 Author Organization [facility] Address [address] [place] [address]. [place] [address] Care Team Providers Name Role Phone Edison Olivas MD Primary Care Provider Reason for Visit Reason Comments Laceration Encounter Details Date Type Department Care Team Description 04/09/2013 Emergency [facility] Jarrod eMredith MD Laceration of finger, Emergency Department [address] [place] [address] initial encounter [address] [place], [place] (Primary Dx) [place] [address] [phone] (Wo rk) Social History Tobacco Use Types Packs/Day Years Used Date Former Smoker 1 18 Smokeless Tobacco: Former User Q uit: 09/20/1991 Alcohol Use Standard Drinks/Week Comments No 0 (1 standard drink = 0.6 oz pure alcoho l) Sex Assigned at Date Recorded Not on file documented as of this encounter Last Filed Vital Signs Vital Sign Reading Time Taken Comments Blood Pressure 100/61 04/09/2013 9:27 PM FILM SPLICER Pulse 88 04/09/2013 9:27 PM FILM SPLICER Temperature 36.8 ??C (98.2 ??F) 04/09/2013 8:12 PM FILM SPLICER Respiratory Rate 16 04/09/2013 9:27 PM FILM SPLICER Oxygen Saturation 100% 04/09/2013 9:27 PM FILM SPLICER Inhaled Oxygen Concentration - - Weight 50.8 kg (112 lb) 04/09/2013 8:12 PM FILM SPLICER Height 157.5 cm (5' 2) 04/09/2013 8:12 PM FILM SPLICER Body Mass Index 20.49 04/09/2013 8:12 PM FILM SPLICER documented in this encounter Discharge Instructions Discharge InstructionsBel Meredith MD - 04/09/2013 9:09 PM CST Images from the original note were not included. Please make an appointment to follow up with Your Primary Care Provider and Orthopedics Hand Specialist (phone: ) in 4 days even if entirely better. *LACERATION (All: sutures, sal, tape, glue) A??laceration is a cut through the skin. This will usually require stitches (sutures) or sal if it is deep. Minor cuts may be treated with a tape closure (???Steri-Strips?? ) or Dermabond skin glue. HOME CARE: 1. EXTREMITY, FACE or TRUNK WOUNDS: Keep the wound clean and dry. If a bandage was applied and it becomes wet or dirty, replace it. Otherwise, leave it in place for the first 24 hours. ?? If stitches or sal were used, clean the wound daily. Protect the wound from sunlight and tanning lamps. ?? After removing the bandage, wash the area with soap and water. Use a wet cotton swab (Q tip) to loosen and remove any blood or crust that forms. ?? After cleaning, apply a thin layer of Polysporin or Bacitracin ointment. This will keep the woundclean and make it easier to remove the stitches or sal. Reapply a fresh bandage. ?? You may remove the bandage to shower as usual after the first 24 hours, but do not soak the area in water (no swimming) until the stitches or sal are removed. ?? If Steri-Strips were used, keep the area clean and dry. If it becomes wet, blot it dry with a towel. It is okay to take a brief shower, but avoid scrubbing the area. ?? If Dermabond skin adhesive was used, do not scratch, rub or pick at the adhesive film. Do not place tape directly over the film. Do not apply liquid, ointment or creams to the wound while the film is in place. Do not clean the wound with peroxide and do not apply ointments. Avoid activities that cause heavy sweating until the film has fallen off. Protect the wound from prolonged exposure to sunlight or tanning lamps. You may shower as usual but do not soak the wound in water (no baths or swimming). The film will fall off by itself in 5-10 days. 2. SCALP WOUNDS: During the first two days, you may carefully rinse your hair in the shower to remove blood, glass or dirt particles. After two days, you may shower and shampoo your hair normally. Do not soak your scalp in the tub or go swimming until the stitches or sal have been removed. 3. MOUTH WOUNDS: Eat soft foods to reduce pain. If the cut is inside of your mouth, clean by rinsingafter each meal and at bedtime with a mixture of equal parts water and Hydrogen Peroxide (do not swallow!). Or, you can use a cotton swab to directly apply Hydrogen Peroxide onto the cut. 4. You may use acetaminophen (Tylenol) 650-1000 mg every 6 hours or ibuprofen (Motrin, Advil) 600 mgevery 6-8 hours with food to control pain, if you are able to take these medicines. [NOTE: If you have chronic liver or kidney disease or ever had a stomach ulcer or GI bleeding, talk with your doctor before using these medicines.] Use sunscreen on the area for 6 months after the wound heals to keep the scar from getting darker. FOLLOW UP: Most skin wounds heal within ten days. Mouth and facial wounds heal within five days. However, even with proper treatment, a wound infection may sometimes occur. Therefore, you should check the wound daily for signs of infection listed below. Stitches should be removed from the face within five days; stitches and sal should be removed from other parts of the body within 7-10 days. Unless you are told to come back to the emergency room, you may have your doctor or urgent care remove the stitches. If dissolving stitches were used in the mouth, these will fall out or dissolve without the need for removal. If tape closures (???Steri-Strips?? ) were used, remove them yourself if they have not fallen off after 7 days. If Dermabond skin glue was used, the film will fall off by itself in 5-10 days. GET PROMPT MEDICAL ATTENTION if any of the following occur: ?? Increasing pain in the wound ?? Redness, swelling or pus coming from the wound ?? Fever over 101??F (38.3??C) oral ?? If stitches or sal come apart or fall out or if Steri-Strips fall off before seven days ?? If the wound edges re-open ?? Bleeding not controlled by direct pressure ?? [id number] [employer], [address] [place] [address], [place] [address]. All rights reserved. This information is not intended as a substitute for professional medical care. Always follow your healthcare professional's instructions. SPLICER documented in this encounter Medications at Time [...] by Osteopenia mouth daily Discontinue Vitamin D 94396 multivitamin (THERA-PLUS) Take 5 mLs by 0 05/09/2017 LIQD mouth daily. Potassium Chloride CR 8 MEQ Take 16 mEq by 30 capsule 0 12/1001/28/2017 CPCRIndications: mouth daily NEED Hypopotassemia APPT WITH DR. OLIVAS FOR REFILLS. calcium carbonate (TUMS) 500 Take 1 chew tab 0 12/01/2014 MG chewable tablet by mouth as needed. cyanocobalamin 1000 MCG/ML Inject 1 mL into 0 04/27/2013 injection the muscle every 30 days. Lactobacillus (ACIDOPHILUS Take 1 capsule by 0 08/09/2014 PO) mouth daily Levothyroxine Sodium 50 MCG Take 1 tablet by 90 capsule 1 08/28/2013 CAPSIndications: Yossi's mouth daily thyroiditis ORDER FOR DMEIndications: Injection 12 each 0 07/08/2012 04/27/2013 B12 deficiency Supplies for Vitamin B12: 3cc syringes w/ 27 gauge needles, 1 inch length [id number] Might-a mins 0 2013 spectrum once daily (Digestive Enzymes) predniSONE (DELTASONE) 1 MG Take 2 tablets by 0 04/14/2013 tabletIndications: mouth daily Inflammatory bowel disease (Crohn's disease) (H) predniSONE (DELTASONE) 5 MG Take 1 tablet (5 90 tablet 3 04/15/2013 tabletIndications: Crohn's mg) by mouth disease of both small and daily (total large intestine with daily dose 8 complication (H), mg/day) Osteoporosis, Yossi's thyroiditis, Hypothyroidism propranolol (INDERAL) 20 MG Take 1 tablet (20 90 tablet 2 1 08/28/2013 tabletIndications: mg) by mouth Unspecified essential daily hypertension rOPINIRole (REQUIP) 1 MG Take 1 tablet (1 90 tablet 1 02/0406/18/2013 tabletIndications: Restless mg) by mouth At leg Bedtime May take 1/2 tab additional prn once daily VANCOMYCIN HCL Take 75 mg by 0 014 POIndications: Inflammatory mouth daily bowel disease (Crohn's disease) (H) documented as of this encounter ED Notes Bel Meredith MD - 04/09/2013 8:33 PM CST Images from the original note were not included. [facility] Emergency Department [address] [place] [address] Room 11 History Chief Complaint Patient presents with ??? Laceration The history is provided by the patient. No speech and language assistant was used. Maria E Coley is a 57 year old female who presents with a laceration to the left index finger. The patient reports that she was trying to get the seed out of an avocado when the serrated knife slipped over the seed and cut her finger. She immediately irrigated the wound with water for 5-10 minutes and then held pressure on the wound for 10 minutes at a time. The bleeding persisted to 40 minutes prior to subsiding. The patient now describes her pain as a sharp, burning sensation which does not radiate. She has normal strength. The laceration is about 1 cm in length. Her last Tetanus update was 2007. Nothing makes symptoms better or worse. PAST MEDICAL HISTORY: Past Medical History Diagnosis [...] MULTIPLE;; Surgeon: Charan Salazar MD; Location: GI FAMILY HISTORY: Family History Problem Relation [...] No family hx of SOCIAL HISTORY: History Substance Use Topics ??? Smoking status: Former Smoker -- 1.0 packs/day for 18 years ??? Smokeless tobacco: Former User Quit date: 09/20/1991 ??? Alcohol Use: No I have reviewed the Medications, Allergies, Past Medical and Surgical History, and [facility] Review of Systems Constitutional: Negative for fever and chills. HENT: Negative for neck pain and neck stiffness. Eyes: Negative for visual disturbance. Respiratory: Negative for shortness of breath. Cardiovascular: Negative for chest pain. Gastrointestinal: Negative for nausea, vomiting and abdominal pain. Genitourinary: Negative for difficulty urinating. Musculoskeletal: Negative for back pain. Skin: Negative for color change. Neurological: Negative for weakness, light-headedness and numbness. Hematological: Negative for adenopathy. Does not bruise/bleed easily. Psychiatric/Behavioral: Negative for behavioral problems and agitation. Physical Exam BP: 120/81 mmHg Heart Rate: 96 Temp: 98.2 ??F (36.8 ??C) Resp: 16 Height: 157.5 cm (5' 2) Weight: 50.803 kg (112 lb) SpO2: 97 % Physical Exam Constitutional: She is oriented to person, place, and time. No distress. HENT: Head: Normocephalic and atraumatic. Mouth/Throat: Oropharynx is clear and moist. No oropharyngeal exudate. Eyes: EOM are normal. Pupils are equal, round, and reactive to light. No scleral icterus. Neck: Normal range of motion. Cardiovascular: Normal rate, normal heart sounds and intact distal pulses. Pulmonary/Chest: Effort normal and breath sounds normal. No respiratory distress. Abdominal: Soft. Bowel sounds are normal. There is no tenderness. Musculoskeletal: Normal range of motion. She exhibits no edema and no tenderness. 1cm clean, liner, superficial laceration to volar side of left index finger between MCP and PIP joints without exposure of bone, tendons, ligaments, or nerves. Neurological: She is alert and oriented to person, place, and time. She has normal strength. No cranial nerve deficit or sensory deficit. She exhibits normal muscle tone. Coordination and gait normal. GCS eye subscore is 4. GCS verbal subscore is 5. GCS motor subscore is 6. Strength intact, 5/5, in left index finger against resistance with flexion and extension of DIP, PIP, and MCP joints. Sensation to light touch intact in distal left index finger. Skin: Skin is warm. No rash noted. She is not diaphoretic. 1cm clean, liner, superficial laceration to volar side of left index finger between MCP and PIP joints without exposure of bone, tendons, ligaments, or nerves. Psychiatric: She has a normal mood and affect. Her behavior is normal. Judgment and thought content normal. ED Course Procedures Narrative: Procedure: Laceration Repair LACERATION: A simple clean 1 cm laceration. LOCATION: Left index finger volar side FUNCTION: Distally sensation, circulation, motor and tendon function are intact. ANESTHESIA: Local using 1% lidocaine without epinephrine total of 2 mLs PREPARATION: Irrigation with Normal Saline DEBRIDEMENT: no debridement CLOSURE: Wound was closed with One Layer. Skin closed with 2 x 5.0 Prolene using interrupted sutures. Splint Apllication Splint was applied to left index finger and after placement I checked and adjusted the fit to ensure proper positioning. Patient was more comfortable with splint in place. Sensation and circulation are intact after splint placement. Critical Care time: none [facility] Diagnoses: None Labs Ordered and Resulted from Time of ED Arrival Up to the Time of Departure from the ED - No data to display Assessments & Plan (with Medical Decision Making) This is a 57 year old women who sustained a laceration to her left index finger. Differential diagnosis; laceration, tendon injury, nerve injury, foreign body. After thorough history and physical examination the wound was irrigated and examined. No foreign bodies were noted. The wound appears to be superficial and I was not able to visualize any tendons or nerves that are exposed. Patient does report tingling at the distal tip of the left index finger. She is also unable to completely close her fist in her left hand. She has approximately 90-95% of movementin her left index finger preserved against resistance. Sensation is intact to light touch in the distal index finger. Patient's laceration will be repaired with local anesthesia. Her Tetanus shot will be updated. Her finger will be splinted as there is a chance that she may have a tendon or a nerve injury. She is advised to follow up with orthopedic hand specialist within 5-7 days for further evaluation. She agrees with the plan. She will be discharged after laceration repair. I have reviewed the nursing notes. I have reviewed the findings, diagnosis, plan and need for follow up with the patient. New Prescriptions No medications on file Final diagnoses: Laceration of finger, initial encounter I, Cher Irene, am serving as a trained medical translator to document services personally performed by Dr. Meredith, based on the provider's statements to me. This document has been checked and approved by the attending provider I, Dr. Meredith, was physically present and have reviewed and verified the accuracy of this note documented by Cher Irene. 04/09/2013 [facility] [place], EMERGENCY DEPARTMENT Bel Meredith MD 04/10/13 0023 SPLICER Bruna Vanessa RN - 04/09/2013 8:15 PM CST Pt has approx 1 inch laceration on inner left pointer finger. Pt was attempting to remove seed from avocado and lacerated finger. Bleeding controlled upon arrival. Pt does have decreased sensation in finger and does complain of numbness/tingling. SPLICER documented in this encounter Plan of Treatment Not on filedocumented as of this encounter Visit Diagnoses Diagnosis Laceration of finger, initial encounter - Primary documented in this encounter Administered Medications Inactive Administered Medications - up to 3 most recent administrations Medication Order MAR Action Action Date Dose Rate Site lidocaine 1 % injection Given 04/09/2013 8:43 PM FILM SPLICER Starting on Tish 04/09/13 at 2039, For 1 dose, GEORGIA SAUCEDA: cabinet override documented in this encounter Active and Recently Administered Medications Times are shown in FILM SPLICER. No Frequency Medication Order 04/07/2013 04/08/2013 04/09/2013 lidocaine 1 % injection (COMPLETED) 2042 (Given - Provider: Georgia Sauceda RN) Starting Tish 04/09/13 at 2039, For 1 dose, GEOR[place] SAUCEDA: cabinet override documented in this encounter Care Teams Wash Mill Operator Relationship Specialty Start Date End Date Edison Olivas MD PCP - General Family Practice 09/21/11 07/22/[address] [address] documented as of this encounter
--- OUTSIDE RECORDS SUMMARY | 2021-10-24 12:04 | XMS_ITS | Encounter Summary ---
:1955 Author Organization [facility] Address [address] [place] [address] Care Team Providers Name Role Phone Edison Tam MD Primary Care Provider Reason for Visit Reason Onset Date Comments Refill Request 11/27/2012 Ptasium Chloride Encounter Details Date Type Department Care Team Description 11/27/2012 Refill [facility], Primary Corky Sainz efill Request ([facility] Chloride) 3rd Floor, Clinic [address] [id number] Social History Tobacco Use Types Packs/Day Years Used Date Former Smoker 1 18 Smokeless Tobacco: Former User Q uit: 09/20/1991 Alcohol Use Standard Drinks/Week Comments No 0 (1 standard drink = 0.6 oz pure alcoho l) Sex Assigned at Date Recorded Not on file documented as of this encounter Miscellaneous Notes Telephone Encounter - Corky Sainz RN - 11/27/2012 8:27 AM CDT Patient has appointment scheduled on 12/01/12. Refilled for 15 days to reach appointment. documented in this encounter Plan of Treatment Not on filedocumented as of this encounter Visit Diagnoses Diagnosis Hypopotassemia - Primary documented in this encounter Care Teams Door Patcher Relationship Specialty Start Date End Date Edison Tam MD PCP - General Family Practice 09/21/11 07/22/[address] [facility] [address] [place], [place] [address] documented as of this encounter
--- OUTSIDE RECORDS SUMMARY | 2021-10-24 12:04 | XMS_ITS | Encounter Summary ---
:1955 Author Organization [facility] Address [address] [place] [address] Care Team Providers Name Role Phone Edison Tam MD Primary Care Provider Reason for Visit Reason Onset Date Comments Refill Request 12/15/2012 propranolol Encounter Details Date Type Department Care Team Description 12/15/2012 Refill [facility], Primary Edisno Tam Refill Request Care Center MD Marcia (propranolol) 3rd Floor, Clinic [address]A [address] [place] [address] [facility] [address] Social History Tobacco Use Types [...] encounter Visit Diagnoses Diagnosis Unspecified essential hypertension - Aleshia dennis documented in this encounter Care Teams Blow Off Worker Relationship Specialty Start Date End Date Edison Tam MD PCP - General Family Practice 09/21/11 07/22/[address] [id number] documented as of this encounter
--- OUTSIDE RECORDS SUMMARY | 2021-10-24 12:04 | XMS_ITS | Encounter Summary ---
:1955 Author Organization [facility] Address [address] [place] [address] Care Team Providers Name Role Phone Edison Tam MD Primary Care Provider Reason for Visit Reason Onset Date Comments Clinical Product Navigator - Follow-up 11/11/2012 Encounter Details Date Type Department Care Team Description 11/11/2012 Telephone Medicine [facility] - 1E [facility] [facility] - Follow-up [place], [place] 1st Floor, [facility] [address] [place] [address] [place] [address] Social History Tobacco Use Types Packs/Day Years Used Date Former Smoker 1 18 Smokeless Tobacco: Former User Q uit: 09/20/1991 Alcohol Use Standard Drinks/Week Comments No 0 (1 standard drink = 0.6 oz pure alcoho l) Sex Assigned at Date Recorded Not on file documented as of this encounter Miscellaneous Notes Telephone Encounter - Rebekah [place] RN - 11/11/2012 11:21 AM CDT Pt left a VM regarding when to start her MTX and requesting a referral for SI cortisone injections. Spoke to pt and informed her that I ordered her MTX and folic acid to the [facility] today. I discussed with pt that would like her to start in 1-2 weeks after her cold was completely resolved. Pt reported having no change in her joint pain and has increased her PDN to 15 mg daily until starting SI cortisone injections. I have instructed pt to notify me when she starts MTX and will need to have her routine monitoring labs. I will discuss pt's clinical status with in clinic tomorrow. documented in this encounter Plan of Treatment Not on filedocumented as of this encounter Visit Diagnoses Not on filedocumented in this encounter Care Teams Marketing Campaign Analyst Relationship Specialty Start Date End Date Edison Tam MD PCP - General Family Practice 09/21/11 07/22/[address] [address] documented as of this encounter
--- OUTSIDE RECORDS SUMMARY | 2021-10-24 12:04 | XMS_ITS | Encounter Summary ---
:1955 Author Organization [facility] Address [address] [place] [address] Care Team Providers Name Role Phone Edison Tam MD Primary Care Provider Encounter Details Date Type Department Care Team Description 01/20/2013 Orders Only Medicine GI - 1E Charan Salazar MD Crohn's disease (H) [address] (Primary Dx) [place], [place] 1st Floor, Clinic [address] [place] [address] [place] [address] Social History Tobacco Use Types [...] this encounter Visit Diagnoses Diagnosis Crohn's disease (H) - Primary Regional enteritis of unspecified site documented in this encounter Care Teams Bore Miner Operator Relationship Specialty Start Date End Date Edison Tam MD PCP - General Family Practice 09/21/11 07/22/[address] [address] documented as of this encounter
--- OUTSIDE RECORDS SUMMARY | 2021-10-24 12:04 | XMS_ITS | Encounter Summary ---
:1955 Author Organization [facility] Address [address] [place] [address] Care Team Providers Name Role Phone Edison Tam MD Primary Care Provider Reason for Visit Reason Comments Pre-Op Exam MICROSCOPIC UPPER EXTREMITY - Left Index Digital Nerve Repair Encounter Details Date Type Department Care Team Description 04/15/2013 [facility] Visit [facility] MD Serg examination (Primary 3rd Floor, Clinic 3A [address] [facility] Dx) Luke [id number] [place] [address] [place], [place] (Work) [phone] Social History Tobacco Use [...] Sign Reading Time Taken Comments Blood Pressure 108/63 04/15/2013 3:37 PM PROCESS AUTOMATION ENGINEER Pulse 86 04/15/2013 3:37 PM PROCESS AUTOMATION ENGINEER Temperature - - Respiratory Rate 12 04/15/2013 3:37 PM PROCESS AUTOMATION ENGINEER Oxygen Saturation - - Inhaled Oxygen - - Concentration Weight 54.4 kg (120 lb) 04/15/2013 3:37 PM PROCESS AUTOMATION ENGINEER Height 157.5 cm (5' 2) 04/15/2013 3:37 PM abstracted f rom PROCESS AUTOMATION ENGINEER previous appt. Body Mass Index 21.95 04/15/2013 3:37 PM PROCESS AUTOMATION ENGINEER documented in this encounter Patient Instructions Patient InstructionsAnkit Kong CMA - 04/15/2013 3:37 PM PROCESS AUTOMATION ENGINEER Primary Care [phone] (3rd Floor PWB, [address]) [facility] Medication Refill Request Information: * Please contact your pharmacy regarding ANY request for medication refills. [facility] Prescription Fax = [phone] * Please allow 3 business days for [...] the results and signed off on them. ESS AUTOMATION ENGINEER documented in this encounter Progress Notes Leonard Stout MD - 04/15/2013 3:48 PM CST Maria E Coley is 57 year old female here at the request of Dr. Hathaway for cardiovascular, pulmonary, and perioperative risk assessment prior to surgery.The intended surgical procedure is left first digit art/nerve repair. A copy of this note will be sent to the surgeon. Past Medical History Diagnosis Date ??? Crohn's [...] cancer (left) ??? Yossi's disease PAST SURGICAL HISTORY Back surgery in 2006, 2009 Urethrovaginal fistula repair Colon resection X 3 Left ovary resection Right wrist surgery Current Outpatient Prescriptions Medication ??? predniSONE (DELTASONE) 5 MG tablet ??? predniSONE (DELTASONE) 1 MG tablet ??? Lactobacillus (ACIDOPHILUS PO) ??? cholecalciferol (VITAMIN D) 1000 UNIT tablet ??? acetaminophen (TYLENOL) 500 MG tablet ??? Levothyroxine Sodium 50 MCG CAPS ??? rOPINIRole (REQUIP) 1 MG tablet ??? VANCOMYCIN HCL PO ??? Potassium Chloride CR 8 MEQ CPCR ??? propranolol (INDERAL) 20 MG tablet ??? buPROPion (WELLBUTRIN SR) 150 MG 12 hr tablet ??? ALPRAZolam (XANAX) 0.5 MG tablet ??? calcium carbonate (TUMS) 500 MG chewable tablet ??? ORDER FOR DME ??? multivitamin (THERA-PLUS) LIQD ??? Carboxymethylcellulose Sodium (REFRESH TEARS OP) ??? fluorouracil (EFUDEX) 5 % cream ??? cyanocobalamin 1000 MCG/ML injection ??? guaiFENesin (MUCINEX) 600 MG 12 hr tablet ??? Menthol, Topical Analgesic, (ICY HOT EX) ??? Calcium Citrate-Vitamin D (CITRACAL + D PO) NOTE: Patient is NOT on vancomycin as listed above Immunization History Administered Date(s) Administered ??? Influenza (IIV3) 12/20/1997, 12/14/1998, 12/23/2002, 01/09/2007, 12/01/2008, 02/06/2010, 12/13/2011, 12/30/2012 ??? Pneumococcal (PCV 7) 12/22/2003 ??? TD (ADULT, 7+) 11/09/1996 ??? TDAP (ADACEL AGES 11-64) 04/09/2013 ??? Tdap (Adacel,Boostrix) 04/06/2008 This is a LOW risk surgery. HPI: Reason for surgery: Arterial laceration and nerve transection from knife while pitting an avocado. Pain and numbness at present. Limit ROM. Cardiovascular Risk: This patient ambulates without assistance- 1/2 mile without stopping without chest pain. She IS ableto climb a flight of stairs without chest pain. The patient does not have chest pain Exercise. She does not have a history of known cardiac disease. The patient does not have a history of stroke,and does not have a history of valvular disease. Pulmonary Risk: In terms of risk factors for pulmonary complications, the patient does not have a history of asthma or COPD. No current smoking. Past 15 py smoker- quit 22 yrs ago. Perioperative Complications: The patient does not have a history of bleeding or clotting problems in the past. The patient has not had complications from past surgeries. The patient does not have a family history of any anesthesiaor surgical complications. ROS: Constitutional: no fevers, night sweats or unintentional weight change Eyes: no vision change, diplopia or red eyes Ears, Nose, Mouth, Throat: no tinnitus or hearing change, no epistaxis or nasal discharge, no oral lesions, throat clear Cardiovascular: no chest pain, palpitations, or pain with walking, no orthopnea or PND (some heartburn) Respiratory: no dyspnea, cough, shortness of breath or wheezing in past month GI: Crohns disease under good control followed by Dr. Salazar. : no change in urine, no dysuria or hematuria Musculoskeletal: chronic low back pain Integumentary: no concerning lesions or moles - thin skin Neuro: no loss of strength or sensation, no numbness or tingling, no tremor, no dizziness, no headache Endo: no polyuria or polydipsia, no temperature intolerance Heme/Lymph: no concerning bumps, no bleeding problems Allergy: no environmental allergies Psych: no depression or anxiety, no sleep problems PHYSICAL EXAM: BP 108/63 Pulse 86 Resp 12 Ht 1.575 m (5' 2) Wt 54.432 kg (120 lb) BMI 21.94 kg/m2 Wt Readings from Last 1 Encounters: 04/15/13 54.432 kg (120 lb) Constitutional: no distress, comfortable, pleasant Eyes: anicteric, normal extra-ocular movements Ears, Nose and Throat: tympanic membranes clear, nose clear and free of lesions, throat clear, neck supple with full range of motion, no thyromegaly. Mallampati 2 Cardiovascular: regular rate and rhythm, normal S1 and S2, no murmurs, rubs or gallops, peripheral pulses full and symmetric Respiratory: clear to auscultation, no wheezes or crackles, normal breath sounds Gastrointestinal: positive bowel sounds, nontender, no hepatosplenomegaly, no masses Musculoskeletal: full range of motion, no edema. Bandaged left pointer. Skin: no concerning lesions, no jaundice Neurological: cranial nerves intact, normal strength and sensation Psychological: appropriate mood Lymphatic: no cervical, axillary or inguinal lymphadenopathy A/P: The patient with Past Medical History Diagnosis Date ??? 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 The patient is at LOW risk for cardiovascular complications and at LOW risk for pulmonary complications of this LOW risk surgery. --Approval given to proceed with proposed procedure, without further diagnostic evaluation --Patient is currently taking Anticoagulant or Antiplatelet Medication Use Not an issue. NO NSAID or ASA use. --Patient has been on Chronic Corticosteroid Use Stress dose steroids are indicated due to chronic steroid use in last 3 months (e.g. >3 weeks of predisone 20 mg or daily prednisone 5 mg). Recommend stress dose steroids at time of surgery with oral 5 mg tid (per Dr. Moraes) for the 24 hours after surgery when taking po. No evidence of functionally compromising cardiac or pulmonary status The patient is recommended to hold aspirin or NSAIDS for 10 days prior to surgery. The patient is instructed as to which medications to take with sips of water the morning of surgery GENERAL PREOP INSTRUCTIONS: Proceed with surgery as planned. No food or liquids the morning of surgery. Call surgeon if develops respiratory illness, fever, or other illness. Take the following medications the morning of surgery with a sip of water: propranolol, levothyroxine, prednisone Laboratory studies: WBC 8.2 04/02/2013 RBC 4.87 04/02/2013 HGB 14.8 04/02/2013 HCT 45.0 04/02/2013 MCV 92 04/02/2013 MCH 30.4 04/02/2013 MCHC 32.9 04/02/2013 RDW 12.7 04/02/2013 PLT 218 04/02/2013 Last Basic Metabolic Panel: NA 137 04/02/2013 POTASSIUM 3.7 04/02/2013 CHLORIDE 102 04/02/2013 DAVID 9.1 04/02/2013 CO2 25 04/02/2013 BUN 13 04/02/2013 CR 0.84 04/02/2013 GLC 91 04/02/2013 TSH Date Value Range Status 04/02/2013 1.08 0.4 - 5.0 mU/L Final ] Cardiovascular: EKG was indicated based on risk assessment. NSR at 82 bpm. Nl axis and intervals. Noacute changes. Please contact our office if there are any further questions or information required about this patient. Leonard Stout Over 25 min of 40 min visit spent in care coordination and counseling related to the above issues. Leonard Stout MD, FACP, FAAP ESS AUTOMATION ENGINEER Ankit Kong CMA - 04/15/2013 3:23 PM CST Surgeon (please enter first and last name): Marisol Hathaway MD Fax number for Preop Evaluation: [phone] Location of Surgery: [facility] Date of Surgery: 04/16/13 Procedure: MICROSCOPIC UPPER EXTREMITY - Left Index Digital Nerve Repair History of reaction to anesthesia? No ESS AUTOMATION ENGINEER documented in this encounter Nursing Notes 04/15/2013 3:35 PM CST >> ANKIT KONG CMA Wed Apr 15, 2013 3:39 PM Patient presents with: Pre-Op Exam - MICROSCOPIC UPPER EXTREMITY - Left Index Digital Nerve Repair ANKIT KONG CMA at 3:37 PM on 04/15/2013 documented in this encounter Plan of Treatment Not on filedocumented as of this encounter Procedures Procedure Name Priority Date/Time Associated Diagnosis Comme nts EKG 12-LEAD, Routine 04/15/2013 5:18 PM Preoperative Results f or this TRACING ONLY PROCESS AUTOMATION ENGINEER examination procedure are i n the results section. documented in this encounter Results EKG 12-lead, tracing only (04/15/2013 5:18 PM PROCESS AUTOMATION ENGINEER) [facility] gist Method Time Signature Interpretation ECG Click View RADIOLOGY Image link RESULTS to view waveform and result Specimen (Source) Anatomical Collection Method Collection Time Re ceived Time Location / / Volume Laterality 04/15/2013 5:18 PM PROCESS AUTOMATION ENGINEER Leonard Stout MD ECG ORDERABLES Performing Organization Address City/State/ZIP Code Phon e Number RADIOLOGY RESULTS documented in this encounter Visit Diagnoses Diagnosis Preoperative examination - Primary Preoperative examination, unspecified documented in this encounter Care Teams Competitive Athlete Relationship Specialty Start Date End Date Edison Tam MD PCP - General Family Practice 09/21/11 07/22/[address] [address] documented as of this encounter
--- OUTSIDE RECORDS SUMMARY | 2021-10-24 12:04 | XMS_ITS | Encounter Summary ---
:1955 Author Organization [facility] Address [address] [place] [address] Care Team Providers Name Role Phone Edison Tam MD Primary Care Provider Encounter Details Date Type Department Care Team Description 04/15/2013 Orders Only Medicine GI - 1E Charan Salazar MD Crohn's disease (H) [address] (Primary Dx) [place], [place] 1st Floor, Clinic [address] [place] [address] [place] [address] Social History Tobacco Use Types [...] site documented in this encounter Care Teams Asset Protection Assistant Relationship Specialty Start Date End Date Edison Tam MD PCP - General Family Practice 09/21/11 07/22/[address] [address] documented as of this encounter
--- OUTSIDE RECORDS SUMMARY | 2021-10-24 12:04 | XMS_ITS | Encounter Summary ---
:1955 Author Organization [facility] Address [address] [place] [address] Care Team Providers Name Role Phone Edison Tam MD Primary Care Provider Reason for Visit Reason Onset Date Comments Pt. Information/instruction 12/03/2012 Encounter Details Date Type Department Care Team Description 12/03/2012 Telephone Outpatient Interventional Carmita Kemp, PtJuan and Diagnostic Rafael penaloza RN Information/instructio Mireya [address],Clinic [address] [place] [address] [address] [place], [place] [address] Social History Tobacco Use Types Packs/Day Years Used Date Former Smoker 1 18 Smokeless Tobacco: Former User Q uit: 09/20/1991 Alcohol Use Standard Drinks/Week Comments No 0 (1 standard drink = 0.6 oz pure alcoho l) Sex Assigned at Date Recorded Not on file documented as of this encounter Miscellaneous Notes Telephone Encounter - Carmita Kemp RN - 12/03/2012 3:47 PM CDT LM to confirm appointment for Friday 12/[address] Laughlin. No allergy to contrast, no blood thinners. Instructed to bring a crude oil driver. documented in this encounter Plan of Treatment Not on filedocumented as of this encounter Visit Diagnoses Not on filedocumented in this encounter Care Teams Independent Jeweler Relationship Specialty Start Date End Date Edison Tam MD PCP - General Family Practice 09/21/11 07/22/14 909 [facility] [address] [place], [place] [address] documented as of this encounter
--- OUTSIDE RECORDS SUMMARY | 2021-10-24 12:04 | XMS_ITS | Encounter Summary ---
:1955 Author Organization [facility] Address [address] [place] [address] Care Team Providers Name Role Phone Edison Tam MD Primary Care Provider Reason for Visit Reason Onset Date Comments Refill Request 02/04/2013 Ropinirole Encounter Details Date Type Department Care Team Description 02/04/2013 Refill [facility], Primary Edison Tam Refill Request Care Center MD Marcia (Ropinirole) 3rd Floor, Clinic 3A [id number] [place] [address] [place] [address] Social History Tobacco Use Types [...] (RLS) documented in this encounter Care Teams Metal Polisher Relationship Specialty Start Date End Date Edison Tam MD PCP - General Family Practice 09/21/11 07/22/[address] [address] documented as of this encounter
--- OUTSIDE RECORDS SUMMARY | 2021-10-24 12:04 | XMS_ITS | Encounter Summary ---
:1955 Author Organization [facility] Address [address] [place] [address] Care Team Providers Name Role Phone Edison Tam MD Primary Care Provider Encounter Details Date Type Department Care Team Description 01/26/2013 Orders Only Medicine GI - 1E Charan Salazar MD Crohn's disease (H) [address] (Primary Dx) [place], [place] 1st Floor, Clinic [address] [place] [address] [place] [address] Social History Tobacco Use Types Packs/Day Years Used Date Former Smoker 1 18 Smokeless Tobacco: Former User Q uit: 09/20/1991 Alcohol Use Standard Drinks/Week Comments No 0 (1 standard drink = 0.6 oz pure alcoho l) Sex Assigned at Date Recorded Not on file documented as of this encounter Nursing Notes 01/26/2013 12:00 PM CST >> Rebekah Mason RN Mon Jan 26, 2013 3:48 PM Ordered Folate and RBC folate labs per . documented in this encounter Plan of Treatment Not on filedocumented as of this encounter Visit Diagnoses Diagnosis Crohn's disease (H) - Primary Regional enteritis of unspecified site documented in this encounter Care Teams Tomato Grader Relationship Specialty Start Date End Date Edison Tam MD PCP - General Family Practice 09/21/11 07/22/14 909 [facility] [address] [place] [address] documented as of this encounter
--- OUTSIDE RECORDS SUMMARY | 2021-10-24 12:04 | XMS_ITS | Encounter Summary ---
:1955 Author Organization [facility] Address [address] [place] [address] Care Team Providers Name Role Phone Edison Tam MD Primary Care Provider Reason for Visit Reason Comments RECHECK Follow up Crohns Encounter Details Date Type Department Care Team Description 01/14/2013 Office Visit Medicine GI - 1E Charan Salazar MD Inflammatory bowel [address] disease (Crohn's Building [place], [place] disease) (H) (Primary 1st Floor, Clinic [id number] Dx) [address] [place] [address] SE (Work) [place] [address] Social History Tobacco Use Types Packs/Day Years Used Date Former Smoker 1 18 Smokeless Tobacco: Former User Q uit: 09/20/1991 Alcohol Use Standard Drinks/Week Comments No 0 (1 standard drink = 0.6 oz pure alcoho l) Sex Assigned at Date Recorded Not on file documented as of this encounter Last Filed Vital Signs Vital Sign Reading Time Taken Comments Blood Pressure 104/62 01/14/2013 2:06 PM SCIENTIFIC SYSTEMS ANALYST Pulse 86 01/14/2013 2:06 PM SCIENTIFIC SYSTEMS ANALYST Temperature 36.9 ??C (98.5 ??F) 01/14/2013 2:06 PM SCIENTIFIC SYSTEMS ANALYST Respiratory Rate - - Oxygen Saturation 97% 01/14/2013 2:06 PM SCIENTIFIC SYSTEMS ANALYST Inhaled Oxygen Concentration - - Weight 52.4 kg (115 lb 8 oz) 01/14/2013 2:06 PM Wearing shoes SCIENTIFIC SYSTEMS ANALYST Height 157.5 cm (5' 2) 01/14/2013 2:06 PM SCIENTIFIC SYSTEMS ANALYST Body Mass Index 21.13 01/14/2013 2:06 PM SCIENTIFIC SYSTEMS ANALYST documented in this encounter Patient Instructions Patient InstructionsCharan Salazar MD - 01/14/2013 2:34 PM CST I've included a brief summary of our discussion and care plan from today's visit below. Please review this information with your primary care provider. 1. Recommend routine studies as we discussed today, particularly given the plan to restart your methotrexate (MTX) next week. 2. Recommend restarting the MTX on Saturday next week, start at 15mg injection dose weekly to see if this reduces your stomatitis symptoms. Recommend restarting the folic acid supplementation (2mg daily)today to pre-treat, particularly as this may reduce some of the side effects. Please contact us if you have any further issues while on MTX. 3. Recommend maintaining your current steroid dose (prednisone 7mg daily) for now, at least until we've given MTX a chance to work and fully establish its effect. If your hypotension continues to occur, would recommend discussion with your PCP regarding Endocrine referral for adrenal axis testing to help guide your ongoing prednisone taper. 4. Complete your current nystatin course for the oral thrush as we discussed today. 5. Return to GI Clinic with me in 3 months to review your progress, sooner if symptomatic. It was a pleasure seeing you in clinic today - please be in touch if there are any further questionsthat arise following today's visit. During business hours, you may reach my Zigzag Topstitcher at . For urgent/emergent questions after business hours, you may reach the on-call GI Fellowby contacting the [facility] bending roll operator at . Any benign/non-urgent test results are usually communicated via letter or [facility] message within 1-2weeks after completion. Urgent results (those that require a change in the previously-discussed careplan) are usually communicated via a phone call once available from our clinic staff to discuss the results and the next steps in your evaluation. I recommend signing up for Exploretript access if you have not already done [...] about your healthcare. Sincerely, Charan Salazar MD Zigzag Topstitcher [facility] - Department of Medicine Division of Gastroenterology NTIFIC SYSTEMS ANALYST documented in this encounter Progress Notes Charan Salazar MD - 01/15/2013 9:08 AM CST GI CLINIC VISIT CC/REFERRING MD: Edison Tam REASON FOR CONSULTATION: Crohn's disease HPI: 57 year old female w/ h/o complicated fistulizing [...] presenting for f/u Crohn's disease. Doingwell overall, interval improvement in mouth discomfort from oral thrush over the last few days sincestarting Nystatin S&S. Denies any N/V/F/C/DONNELLY or other const/syst/cardiopulmonary sxs, no BRBPR/melena/urinary changes, no unintentional wt loss or appetite/satiety changes. No other bowel/bladder habit changes, no dysphagia/odynophagia. No jaundice/icterus/pruritus, no acholic stools/steatorrhea, no jt pain/oral ulcer/rash/eye sxs noted. Continues to have occ passage of gas and some fecal material through vagina, but this is o/w unchanged from baseline and denies any s/s severe vaginal infection/endometritis at this time. Reviewed recent issues w/ MTX, specifically relatively quick development of stomatitis on 25mg weekly dosing. Discussed role for folate pre-treatment and risks/benefits/alternatives of MTX re-trial at a lower dose (15mg) vs. moving forward w/ CERT. Pt concerned re: cost and availability of CERT (particularly given risk for loss of response w/ prolonged hiatuses from treatment), and would like to try MTX again given her prior ability to tolerate this medication w/ historical improvement in her fistulas while on treatment. Pt has begun noticing some occ orthostatic sxs since decreasing PDN to 7mg daily w/o other immunosuppressive support, advised her not to decreased to PDN doses further until we'vemore fully-established an appropriate steroid-sparing therapy. ROS: 10pt ROS performed and otherwise negative. PERTINENT PAST MEDICAL/SURGICAL HISTORY: As noted above. PERTINENT MEDICATIONS: - prednisone 7mg PO QDAY Medications reviewed with patient today, see Medication List/Assessment for details. No other NSAID/anticoagulation reported by patient. No other OTC/herbal/supplements reported by patient. SOCIAL HISTORY: Tobacco: none. PHYSICAL EXAMINATION: Vitals reviewed, AFVSS Wt 115# today (stable) Gen: aaox3, cooperative, pleasant, not dyspneic/diaphoretic, nad HEENT: ncat, neck supple, no clad, normal op w/o ulcer/exudate, anicteric, mmm Resp/CV unremarkable Abd: +nabs, soft, nt, nd, no peritoneal s/s noted Ext: no c/c/e Skin: warm, perfused, no jaundice Neuro: grossly intact, no asterixis noted PERTINENT STUDIES: Lytes/LFT normal, cr 0.83 alb 3.9 wbc 6, hgb 14.1, plt 230, mcv 93 ASSESSMENT/PLAN: 1. Complex chronic fistulizing ileocolonic + perianal Crohn's disease, chronic steroid dependence but otherwise stable and clinically quiescent disease - consider role for MTX re-trial with lower dose vs. transition to CERT for potential steroid-sparing treatment options Pt still desires weaning of steroids if at all possible, and willing to try MTX given its affordability and her prior tolerance of this medication. Given the recent stomatitis with the 25mg dose would recommend pre-treatment w/ folic acid 2mg PO QDAY starting today, plan to start MTX 15mg PO Qwk on Saturday w/ close monitoring. Pre-MTX labs today and CXR performed prior to initial trial are normal, recommend rechecking MTX labs in 3-4wks and then every 3 months thereafter for routine monitoring. Discussed CERT option today, but pt would like to hold off on this for now given cost/complexity until we've given MTX another try (not unreasonable). Would recommend pt remain on PDN 7-8mg PO QDAY for now until we've established an effective steroid-sparing maintenance regimen, may need to consider Endocrine referral if orthostatic sxs persist to r/o adrenal axis issue that would warrant slower (but not complete) taper off glucocorticoid support. Will continue to monitor closely. 2. Colorectal Cancer Screening No known FH CRC, will readdress once acute issues have stabilized. RTC 2-3 months, sooner if symptomatic. Thank you for this consultation. It was a pleasure to participate in the care of this patient; please contact us with any further questions. A total of 25 minutes was spent with this patient, 50% of which was counseling regarding the above delineated issues. Charan Salazar MD Zigzag Topstitcher [facility] - Department of Medicine Division of Gastroenterology NTIFIC SYSTEMS ANALYST documented in this encounter Nursing Notes 01/14/2013 2:00 PM CST >> Roxy Lipscomb MA Wed Jan 14, 2013 2:11 PM Patient presents with: RECHECK - Follow up Crohns 01/14/13 1406 BP: 104/62 Pulse: 86 Temp: 98.5 ??F (36.9 ??C) TempSrc: Oral Height: 1.575 m (5' 2) Weight: 52.39 kg (115 lb 8 oz) SpO2: 97% Body mass index is 21.13 kg/(m^2). Roxy Burch documented in this encounter Plan of Treatment Not on filedocumented as of this encounter Procedures Procedure Name Priority Date/Time Associated Diagnosis Comme nts CBC WITH PLATELETS & Routine 01/14/2013 2:44 Inflammatory monique l Results for this DIFFERENTIAL PM SCIENTIFIC SYSTEMS ANALYST disease (Crohn's procedure a re in disease) (H) the results section. COMPREHENSIVE Routine 01/14/2013 2:44 Inflammatory bowel Resul ts for this METABOLIC PANEL PM SCIENTIFIC SYSTEMS ANALYST disease (Crohn's procedur e are in disease) (H) the results section. documented in this encounter Results CBC with platelets differential (01/14/2013 2:44 PM SCIENTIFIC SYSTEMS ANALYST) [facility] gist Method Time Signature WBC 6.0 4.0 - [facility] 11.0 [place] 10e9/L [facility] RBC Count 4.68 3.8 - 5.2 [facility] 10e12/L [facility] Hemoglobin 14.1 11.7 - [facility] 15.7 g/dL [facility] Hematocrit 43.5 35.0 - [facility] 47.0 % [facility] MCV 93 78 - 100 [facility] fl [facility] MCH 30.1 26.5 - [facility] 33.0 pg [facility] MCHC 32.4 31.5 - [facility] 36.5 g/dL [facility] RDW 13.0 10.0 - [facility] 15.0 % [facility] Platelet Count 230 150 - 450 [facility] 10e9/L [facility] Diff Method Automated [facility] Method [facility] % Neutrophils 73.7 % [facility] % Lymphocytes 16.6 % [facility] % Monocytes 8.7 % [facility] % Eosinophils 0.5 % [facility] % Basophils 0.3 % [facility] % Immature 0.2 % [facility] Granulocytes [facility] [place] [facility] Absolute 4.4 1.6 - 8.3 [facility] Neutrophil 10e9/L [facility] Absolute 1.0 0.8 - 5.3 [facility] Lymphocytes 10e9/L [facility] Absolute 0.5 0.0 - 1.3 [facility] Monocytes 10e9/L [facility] Absolute 0.0 0.0 - 0.7 [facility] Eosinophils 10e9/L [facility] Absolute 0.0 0.0 - 0.2 [facility] Basophils 10e9/L [facility] Abs Immature 0.0 0 - 0.4 [facility] Granulocytes 10e9/L [facility] Specimen Anatomical Collection Method Collection Time Receive d Time (Source) Location / / Volume Laterality Blood specimen 01/14/2013 2:44 PM 013 4:25 (specimen) SCIENTIFIC SYSTEMS ANALYST PM SCIENTIFIC SYSTEMS ANALYST Charan Salazar MD LAB - BLOOD ORDERABLES Performing Organization Address City/State/ZIP Code Phon e Number [facility] [address] [place], [place] [id number] [place], [place] [id number] [facility] [place] [facility] (ABNORMAL) Comprehensive metabolic panel (01/14/2013 2:44 PM SCIENTIFIC SYSTEMS ANALYST) [facility] gist Method Time Signature Sodium 138 133 - 144 [facility] mmol/L [facility] Potassium 3.4 3.4 - 5.3 [facility] mmol/L [facility] Chloride 104 94 - 109 [facility] mmol/L [facility] Carbon Dioxide 27 20 - 32 [facility] mmol/L [facility] Anion Gap 7 6 - 17 [facility] mmol/L [facility] Glucose 86 60 - 99 [facility] mg/dL [facility] Urea Nitrogen 22 7 - 30 [facility] mg/dL [facility] Creatinine 0.83 0.52 - [facility] 1.04 [place] mg/dL [facility] GFR Estimate 71 >60 [facility] mL/min/1. [place] [address] [facility] GFR Estimate If 85 >60 [facility] Black mL/min/1. [address] [facility] Calcium 9.0 8.5 - [facility] 10.4 [place] mg/dL [facility] Bilirubin Total <0.1 (L) 0.2 - 1.3 [facility] mg/dL [facility] Albumin 3.9 3.3 - 4.9 [facility] g/dL [facility] Protein Total 6.5 (L) 6.8 - 8.8 [facility] g/dL [facility] Alkaline 77 40 - 150 [facility] Phosphatase U/L [facility] ALT 28 0 - 50 [facility] U/L [facility] AST 24 0 - 45 [facility] U/L [facility] Specimen Anatomical Collection Method Collection Time Receive d Time (Source) Location / / Volume Laterality Blood specimen 01/14/2013 2:44 PM 013 4:25 (specimen) SCIENTIFIC SYSTEMS ANALYST PM SCIENTIFIC SYSTEMS ANALYST Charan Salazar MD LAB - BLOOD ORDERABLES Performing Organization Address City/State/ZIP Code Phon e Number [facility] [address] [place] [address] [facility] documented in this encounter Visit Diagnoses Diagnosis Inflammatory bowel disease (Crohn's dise ase) (H) - Primary Regional enteritis of unspecified site documented in this encounter Care Teams [employer] Operations Supervisor Relationship Specialty Start Date End Date Edison Tam MD PCP - General Family Practice 09/21/11 07/22/[address] [place] [id number] documented as of this encounter
--- OUTSIDE RECORDS SUMMARY | 2021-10-24 12:04 | XMS_ITS | Encounter Summary ---
:1955 Author Organization [facility] Address [address] [place] [id number] Care Team Providers Name Role Phone Edison Tam MD Primary Care Provider Reason for Visit Reason Comments Consult NEW PATIENT- PARMINDER'S,OST EOPOROSIS Encounter Details Date Type Department Care Team Description 12/03/2012 Office Visit Diabetes and Laisha Moraes Crohn's dis ease of both small and large intestine with complication (H) (Primary Dx); Endocrine A, Osteoporosis; 6th Floor, Clinic [address] [place] [address] Parminder's thyroiditis; [facility] 101 Hypothyroidism Building [address] [phone] [facility] 88 (Work) [place], [place] [phone] (Fax) [phone] Social History Tobacco Use Types Packs/Day Years Used Date Former Smoker 1 18 Smokeless Tobacco: Former User Q uit: 09/20/1991 Alcohol Use Standard Drinks/Week Comments No 0 (1 standard drink = 0.6 oz pure alcoho l) Sex Assigned at Date Recorded Not on file documented as of this encounter Last Filed Vital Signs Vital Sign Reading Time Taken Comments Blood Pressure 105/66 12/03/2012 2:44 PM CDT Pulse 83 12/03/2012 2:44 PM CDT Temperature - - Respiratory Rate - - Oxygen Saturation - - Inhaled Oxygen Concentration - - Weight 51.6 kg (113 lb 12.8 oz) 12/03/2012 2:44 PM CDT Height 157.5 cm (5' 2) 12/03/2012 2:44 PM CDT Body Mass Index 20.81 12/03/2012 2:44 PM CDT documented in this encounter Patient Instructions Patient InstructionsLaisha Moraes MD - 12/03/2012 3:48 PM CDT Reduce prednisone to 8 mg/day Postmenopausal women not on estrogen: 1500 mg/day in divided doses of no more than 500 mg/dose OUTPATIENT LAB - FIRST FLOOR - CLINIC 1B Please stop downstairs to check-in at the Outpatient Lab to complete the lab tests that your doctor has ordered for you. Your lab orders have been electronically sent down to the lab through our computer system. You do not need to bring any paperwork. Your lab results will be sent to you by mail or be available on [employer]. Depending on which lab tests your doctor has ordered will determine how quickly your results will become available. The standard time for processing lab work is 2-7 days. Please note that some lab results may take up to two weeks from the date of your lab draw to process. If you are a [employer] user, your lab results will be available to view once the Doctor has reviewed and signed off on them. If you have any questions or concerns, please don't hesitate to call our clinic at: . For URGENT issues, please dial , and ask to speak with the Churn Driller Helper On-Call. =======[facility] Medication Refill Information======= Medication Refill Fax Number - You must contact your pharmacy regarding ANY request for medication refills. *Please allow 3 business days for routine medication refills. *Please allow 5 business days for controlled substance medication refills. documented in this encounter Progress Notes Laisha Moraes MD - 12/03/2012 3:13 PM CDT Endocrinology Consult Note Attending ASSESSMENT/PLAN: 1. Hypothyroidism- She is clinically euthyroid except for intermittent palpitations and history of significant weight loss within the last year. TFTS today 2. Hypovitaminosis D. She has been off ergocalciferol (D2) for one month. Future vitamin D tests should measure D2 and D3 since the vitamin D deficiency screen that has been measured only measures 25 OH vitamin D3. I am reordering the ergocalciferol for her, but also measuring PTh today 3. Steroid use since teens/ SI joint injections intermittently. She is currently on prednisone 10 mg/day which is higher than usual daily replacement dose. She has upcoming SI joint injection. She would have expected secondary adrenal insufficiency. She is not cushingoid at all. Reduce prednisone to 8 mg/day. Discussed steroids and taper related issues. We will anticipate slow taper. We will test HPA axis when dose gets to 5 mg/day or below. 4. Osteoporosis in patient on steroids > 7.5 mg/day. Recommend treatment with either reclast or Forteo Labs today to include PTH/ Calcium to help with decision making. She has been told by dentist she can never take Reclast 5. Weight loss - As per # 1. She describes restricted diet. Recommend following HgbA1c as means to assess overall status relative to glycemia. . Laisha Moraes MD Chief complaint: Maria E is a 57 year old female seen in consultation at the request of Dr Charan Salazar For steroid discontinuation assistance. HISTORY OF PRESENT ILLNESS Maria E has a history of Crohn's disease for which she has been on steroids since her teens. Her current prednisone dose is 10 mg in the last 3 years. She has also had SI joint injections about every 1.5-2 years - last was about 2 years ago, however, she is scheduled for upcoming SI joint injection in early December. She started methotrexate this week as a new treatment for the Crohn's- it is too soon to know how she has/will respond(ed). Last DXA 10/20- lowest T-score -2.8 at right femoral neck. She has had 2 fractures, one related to fall down steps and one related to fall while roller skating. Her height is down 1 inch from maximum baseline. She took Actonel in the past, until it was stopped after an esophageal ulcer. She then got IVReclast (delivered in [place]), stopped about 2 years ago when her dentist advised cessation due to concerns about the jaw. I have reviewed images on PACs 12/03/[address] - incomplete views of the thyroid - thyroid looks normal on views seen (inferior part of the thyroid) 12/03/11 xray, L , T and C spine - no compression fracture Hypothyroidism diagnosed . She can't recall the circumstances. Weight loss is documented on the record 12/02/11: 143 11: 135 05/21: 132 07/21/121 08/26/12: 113 Today 113 There has also been a question of Steroid induced DM. She reports BS 160's on home meter REVIEW OF SYSTEMS Doing the best in years Weight loss spring attributed to diet change/ ? Steroid induced DM Hot Heart racing/ skipping 3 times/week SOB at times - at rest; SI Back pain L4-L54 no disc; Radicular pain into left thigh Sometime achiness in legs; arms ache - ? Muscle or bone deep Joint pains elbows, knees, shoulders, hips Menopause age 40 10 system ROS otherwise as per the HPI or negative Past Medical History Hypothyroidism Crohn's disease since age 12 mulitple abdominal operations Colon resection x 3 Back operation laminectomy Medications Current Outpatient Prescriptions Medication Sig ??? Potassium Chloride CR 8 MEQ CPCR Take 16 mEq by mouth daily Please keep scheduled appointment With Dr. Tam for refills. ??? methotrexate (RHEUMATREX) 25 MG/ML injection Inject 1 ml (25mg) Subcutaneous every 7 days. Methotrexate 25 mg SQ every week, will require daily folic acid supplementation while on this therapy. ??? folic acid (FOLVITE) 1 MG tablet Take 2 tablets (2 mg) by mouth daily ??? rOPINIRole (REQUIP) 1 MG tablet Take 1 tablet by mouth At Bedtime. May take 1/2 tab additional prn once daily ??? propranolol (INDERAL) 20 MG tablet Take 1 tablet by mouth daily. ??? Levothyroxine Sodium 50 MCG CAPS Take 1 tablet by mouth daily. ??? buPROPion (WELLBUTRIN SR) 150 MG 12 hr tablet Take 150 mg by mouth daily. ??? UNKNOWN TO PATIENT 1 capsule daily. Pt states she is taking a antidepressant that starts with a v. Possibly Venlafaxine. ??? ALPRAZolam (XANAX) 0.5 MG tablet Take 0.5 mg by mouth daily. ??? vitamin D (ERGOCALCIFEROL) 07013 UNIT capsule Take 50,000 Units by mouth. 2 times a week. ??? calcium carbonate (TUMS) 500 MG chewable tablet Take 1 chew tab by mouth as needed. ??? ORDER FOR DME Injection Supplies for Vitamin B12: 3cc syringes w/ 27 gauge needles, 1 inch length ??? predniSONE (DELTASONE) 10 MG tablet Take 1 tablet by mouth daily. ??? multivitamin (THERA-PLUS) LIQD Take 5 mLs by mouth daily. ??? IKLA-OVY-CFBNYRA Might-a mins spectrum once daily (Digestive Enzymes) ??? Carboxymethylcellulose Sodium (REFRESH TEARS OP) Apply [...] 1 tablet by mouth 2 times daily. She last took vitamin D one month ago Takes Tums along with Tylenol and also prn abdominal pain Uses caltrate for calcium Allergies Allergies Allergen Reactions ??? Humira Rash ??? Ibuprofen Sodium GI Disturbance ??? Loratadine Other (See Comments) Dry mouth, rapid heart beat ??? Lyrica Other (See Comments) Patient feels intoxicated on medication ??? No Clinical Screening - See Comments Use Caution with Pain Medication. Short term OK ??? Remicade (Infliximab Injection) Doesn't work for pt ??? Penicillin G Rash Childhood reaction ??? Sulfa Drugs Fatigue Profound lethargy ??? Tramadol Itching and Rash Family History + parminder thyroiditis - 2 sisters family history includes Arthritis in her sister; Cancer (age of onset:68) in her mother; Endocrine Disease in her mother and sister; and Neurological in her sister. There is no history of Colon Cancer,and Crohn's Disease, and Ulcerative Colitis, and Colon Polyps, . Social History History Substance Use Topics ??? Smoking status: Former Smoker -- 1.0 packs/day for 18 years ??? Smokeless tobacco: Former User Quit date: 09/20/1991 ??? Alcohol Use: No Walking 20 minutes/day,uses stepper with resistance; miles chi; weight lifting Restricted diet - no raw fruits/vegetables, but she juices and drinks it; no red meat; eats tofu/ fish/chicken; No dairy; low sugar; Takes Boost for DM 2 cans/day; Moved here from [place] about 1.5 years ago. Both parents were physicians Physical Exam BP 105/66 Pulse 83 Ht 1.575 m (5' 2) Wt 51.619 kg (113 lb 12.8 oz) BMI 20.81 kg/m2 Body mass index is 20.81 kg/(m^2). GENERAL : thin middle aged woman In no apparent distress SKIN: Normal color, cool temperature, texture. No hirsutism, alopecia or purple striae. EYES: PERRL, EOMI, No scleral icterus, No proptosis, conjunctival redness, stare, retraction MOUTH: Moist, pink; pharynx clear NECK: No visible masses. No palpable adenopathy, or masses. THYROID: Not palpable RESP: Lungs clear to auscultation bilaterally CARDIAC: Regular rate and rhythm, normal S1 S2, without murmurs, rubs or gallops ABDOMEN: Normal bowel sounds; soft, healed surgical scar longitudinal midline; nontender; NEURO: awake, alert, responds appropriately to questions. Cranial nerves intact. Moves all extremities; No tremor of the outstretched hand. DTRs 1/4 , EXTREMITIES: No clubbing, cyanosis or edema. DATA REVEIW ENDO THYROID LABS-[facility] Latest Ref Rng 12/03/2012 06/04/2012 04/07/2012 TSH 0.4 - 5.0 mU/L 0.86 0.83 T4 FREE 0.70 - 1.85 ng/dL 1.25 PREALBUMIN 15 - 45 mg/dL 31 [facility]O THYROID [facility] Latest Ref Rng 01/22/2012 09/20/2011 TSH 0.4 - 5.0 mU/L 0.27 (L) 0.44 T4 FREE 0.70 - 1.85 ng/dL 1.05 PREALBUMIN 15 - 45 mg/dL ENDO CALCIUM LABS-[facility] Latest Ref Rng 12/03/2012 10/29/2012 CALCIUM 8.5 - 10.4 mg/dL 9.1 8.7 MAGNESIUM 1.6 - 2.3 mg/dL ALBUMIN 3.3 - 4.9 g/dL 4.1 BUN 7 - 30 mg/dL 14 CREATININE 0.52 - 1.04 mg/dL 0.76 ALKPHOS 40 - 150 U/L 75 25 OH VIT D TOTAL 30 - 75 ug/L VITAMIN D DEFICIENCY SCREENING 30 - 75 ug/L 36 PROTEIN, TOTAL 6.8 - 8.8 g/dL 7.0 AMYLASE 30 - 110 U/L LIPASE 20 - 250 U/L ENDO CALCIUM LABS[facility] Latest Ref Rng 06/04/2012 CALCIUM 8.5 - 10.4 mg/dL 8.8 MAGNESIUM 1.6 - 2.3 mg/dL 2.0 ALBUMIN 3.3 - 4.9 g/dL 4.6 BUN 7 - 30 mg/dL 14 CREATININE 0.52 - 1.04 mg/dL 0.89 ALKPHOS 40 - 150 U/L 77 25 OH VIT D TOTAL 30 - 75 ug/L VITAMIN D DEFICIENCY SCREENING 30 - 75 ug/L PROTEIN, TOTAL 6.8 - 8.8 g/dL 7.7 AMYLASE 30 - 110 U/L 73 LIPASE 20 - 250 U/L 234 Jitendra Cuello MD - 12/03/2012 2:53 PM CDT Diabetes, Endocrinology [facility] - Fellow Patient: Maria E Coley 57 year old female 1955 Consulting physician: Dr. Levi and Charan Greco Reason for consultation: Maria E Coley is 57 year old female referred to endocrine clinic for an evaluation of her chronic use of Steroids with Osteoporosis. History of presenting illness: 57 year old female with history of severe Crohn's disease which was diagnosed at age of 13, prior ileocecal resection and subsequent anstomosis in requiring surgery again (she had a total of 3 surgeries with the removal of 2/3 of her colon along with part of her Ileum). She was placed on Prednisone around the time of the diagnosis and she has been on it since then, She has been on 20- 30 mg daily most of the time but the dose was decreased to 10 mg daily 3 years ago which she still takes. In the , an attempt was made to decrease the Prednisone dose gradually with a goal to stop it but she failed an ACTH stimulation test and she had to placed back on it. The high dose of Steroids has been causing anxiety and depression which has improved since she has been started on 10 mg. Earlier thisyear, she noted that she had high fasting glucose and she started an aggressive diet adjustment witha 30 lb weight loss (partially related to her Crohn flare up too), neither A1c test or the fasting BG at the lab showed levels consistent with DM. Patient was seen by GI, Dr. Salazar recently, she was started on MTX along with a goal to titrate the Steroids to off if possible. Patient is stating that she is afraid to do so and she would like to do that as slowly as possible but she would like to see if she can be taken off the Steroids. Patient was diagnosed with Parminder's thyroiditis years ago and she has been on Synthroid supplementation, currently on 50 mcg daily. She was diagnosed with Osteoporosis too, years ago and she was placed on Actonel weekly for many years before she developed an esophageal ulcer and that was stopped then and replaced with Reclast Injections. She took the Reclast for few years, her last dose was 2 years ago and she had some dental procedure and she has been told that she does not need to go back on Reclast again and she is worry about side effects related to jaw necrosis. History of fractures: Wrist fx in 1987 after trauma. Other fracture in the wrist again after a fall. She is one inch shorter than she was 17 years old. Family history of fracture: father has osteoporosis in his 70s. Smoker: quit in 1991 Menopause at age of 40. History of falls: no Patient denies any neck discomfort, pain, swelling, dysphagia or change in the voice. Patient has severe heat intolerance for many yeas which she thinks is better when she takes high dose of steroids. 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 No periods since the menopause. PM/SH: Past Medical History Diagnosis Date ??? Crohn's [...] hand skin cancer (left) ??? Parminder's disease Past Surgical History Procedure Date ??? [...] Surgeon: Charan Salazar MD; Location: [facility] Medications: Current Outpatient Prescriptions Medication Sig ??? Potassium Chloride CR 8 MEQ CPCR Take 16 mEq by mouth daily Please keep scheduled appointment With Dr. Tam for refills. ??? methotrexate (RHEUMATREX) 25 MG/ML injection Inject 1 ml (25mg) Subcutaneous every 7 days. Methotrexate 25 mg SQ every week, will require daily folic acid supplementation while on this therapy. ??? folic acid (FOLVITE) 1 MG tablet Take 2 tablets (2 mg) by mouth daily ??? rOPINIRole (REQUIP) 1 MG tablet Take 1 tablet by mouth At Bedtime. May take 1/2 tab additional prn once daily ??? propranolol (INDERAL) 20 MG tablet Take 1 tablet by mouth daily. ??? Levothyroxine Sodium 50 MCG CAPS Take 1 tablet by mouth daily. ??? buPROPion (WELLBUTRIN SR) 150 MG 12 hr tablet Take 150 mg by mouth daily. ??? UNKNOWN TO PATIENT 1 capsule daily. Pt states she is taking a antidepressant that starts with a v. Possibly Venlafaxine. ??? ALPRAZolam (XANAX) 0.5 MG tablet Take 0.5 mg by mouth daily. ??? vitamin D (ERGOCALCIFEROL) 64960 UNIT capsule Take 50,000 Units by mouth. 2 times a week. ??? calcium carbonate (TUMS) 500 MG chewable tablet Take 1 chew tab by mouth as needed. ??? ORDER FOR DME Injection Supplies for Vitamin B12: 3cc syringes w/ 27 gauge needles, 1 inch length ??? predniSONE (DELTASONE) 10 MG tablet Take 1 tablet by mouth daily. ??? multivitamin (THERA-PLUS) LIQD Take 5 mLs by mouth daily. ??? [id number] Might-a mins spectrum once daily (Digestive Enzymes) ??? Carboxymethylcellulose Sodium (REFRESH TEARS OP) Apply [...] (Infliximab Injection) Doesn't work for pt ??? Penicillin G Rash Childhood reaction ??? Sulfa Drugs Fatigue Profound lethargy ??? Tramadol Itching and Rash Family History: Family history of Thyroid disease: both sisters, mother had thyroidectomy for enlarged thyroid. History of Thyroid Cancer: no History of radiation exposure: no but she had multiple CTs and X-rays Social History: History Social History ??? Marital Status: Single Spouse Name: N/A Number of Children: N/A ??? Years of Education: N/A Social History Main Topics ??? Smoking status: Former Smoker -- 1.0 packs/day for 18 years ??? Smokeless tobacco: Former User Quit date: 09/20/1991 ??? Alcohol Use: No ??? Drug Use: No no longer ??? Sexually Active: Not Currently -- Male partner(s) twice Review of System: 10 point ROS was done and was negative except mention above. Physical Examination: B/P: 105/66, P: 83, 113 lbs 12.8 oz, The Body Mass Index is Body mass index is 20.81 kg/(m^2). Gen: NAD, comfortable HEENT: Head normal, no lid lag, retraction, no proptosis NECK: Supple, no carotid bruit, no thyromegaly. No palpable masses or nodules in the thyroid bed; nocervical or supraclavicular adenopathy noted. CVS: S1+S2 no murmurs, rubs or gallops LUNGS: Normal regular breathing, no wheeze, no crepts, no rhonchi GI: Soft, non tender, no visceromegaly, BS are hyperactive CELLARS SUPERVISOR: Grossly normal, no focal deficit, normal DTR Extremities: Normal pulses, no edema SKIN: No skin changes. PSYCH: Normal mood, pleasant affect Laboratory Work up: TSH Date Value Range Status 04/07/2012 0.83 0.4 - 5.0 mU/L Final 01/22/2012 0.27* 0.4 - 5.0 mU/L Final 09/20/2011 0.44 0.4 - 5.0 mU/L Final Imaging: DXA scan 10/2011: Based on the most negative and valid T-score of -2.8 at the level of the right femoral neck, this patient has osteoporosis. Assessment and plan: Maria E Coley is 57 year old female referred to endocrine clinic for an evaluation in regard the chronic use of Steroids since age of 13 along with Osteoporosis. 1. care home Steroids use: She has developed a secondary hypoadrenalism in view of the chronic use of high dose steroids. Apparently, her Crohn has been fairly stable and she was started on MTX with anattempt to stop the Steroids. Prednisone has been at 10 mg daily for 3 years, it is still above the p hysiologic dose or requirement (usually 5-7.5 mg daily). 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 We will decrease the dose slowly and monitor her clinical response and we will consider checking morning cortisol in 2-3 months if she is able to tolerate the low dose. 2. Osteoporosis, We think that she should be started on treatment for her Osteoporosis in view of her high risk of fractures (Steroids, more than 7.5 mg of Prednisone, and low T score). We will check her PTH, Ca levels and advise about starting Reclast or Forteo injections. Patient was advised to continue her current Vitamin D supplement and she was advised to divide her Ca dose to 3 vidal daily (total 1500 mg) Jitendra Cuello MD Endocrinology Fellow (F1) [phone] documented in this encounter Nursing Notes 12/03/2012 3:00 PM CDT >> Keerthi Rush MA Wed Dec 03, 2012 2:46 PM Patient presents with: Consult - NEW PATIENT- PARMINDER'S OSTEOPOROSIS documented in this encounter Plan of Treatment Not on filedocumented as of this encounter Procedures Procedure Name Priority Date/Time Associated Diagnosis Comme nts TSH Routine 12/03/2012 5:00 PM Crohn's disease of Res ults for this CDT both small and large procedu re are in intestine with the results complication (H) section. Osteoporosis Parminder's thyroiditis Hypothyroidism T4 FREE Routine 12/03/2012 5:00 PM Crohn's disease of Res ults for this CDT both small and large procedu re are in intestine with the results complication (H) section. Osteoporosis Parminder's thyroiditis Hypothyroidism PARATHYROID HORMONE Routine 12/03/2012 5:00 PM Crohn's disease of Results for this INTACT CDT both small and large procedu re are in intestine with the results complication (H) section. Osteoporosis Parminder's thyroiditis Hypothyroidism CALCIUM Routine 12/03/2012 5:00 PM Crohn's disease of Res ults for this CDT both small and large procedu re are in intestine with the results complication (H) section. Osteoporosis Parminder's thyroiditis Hypothyroidism documented in this encounter Results T4 free (12/03/2012 5:00 PM CDT) athologist Signature T4 Free 1.25 0.70 - 1.85 [facility] ng/dL [facility] Specimen Anatomical Collection Method Collection Time Receive d Time (Source) Location / / Volume Laterality Blood specimen 12/03/2012 5:00 PM 013 5:01 (specimen) CDT PM CDT Laisha Moraes MD LAB - BLOOD ORDERABLES Performing Organization Address City/[facility]/ZIP Code Phon e Number [facility] [address] LABS TSH (12/03/2012 5:00 PM CDT) athologist Signature TSH 0.86 0.4 - 5.0 [facility] mU/L [place] LABS Specimen Anatomical Collection Method Collection Time Receive d Time (Source) Location / / Volume Laterality Blood specimen 12/03/2012 5:00 PM 013 5:01 (specimen) CDT PM CDT Laisha Moraes MD LAB - BLOOD ORDERABLES Performing Organization Address City/State/ZIP Code Phon e Number [facility] [address] LABS Parathormone intact (12/03/2012 5:00 PM CDT) athologist Signature Parathyroid 32 12 - 72 [facility] Hormone Intact pg/mL [facility] LABS Specimen Anatomical Collection Method Collection Time Receive d Time (Source) Location / / Volume Laterality Blood specimen 12/03/2012 5:00 PM 013 5:01 (specimen) CDT PM CDT Laisha Moraes MD LAB - BLOOD ORDERABLES Performing Organization Address City/[facility]/ZIP Code Phon e Number [facility] [address] LABS Calcium (12/03/2012 5:00 PM CDT) athologist Signature Calcium 9.1 8.5 - 10.4 [facility] mg/dL CAMPUS LABS Specimen Anatomical Collection Method Collection Time Receive d Time (Source) Location / / Volume Laterality Blood specimen 12/03/2012 5:00 PM 013 5:01 (specimen) CDT PM CDT Laisha Moraes MD LAB - BLOOD ORDERABLES Performing Organization Address City/State/ZIP Code Phon e Number [facility] [address] [place] [address] [facility] LABS documented in this encounter Visit Diagnoses Diagnosis Crohn's disease of both small and large intestine with complication (H) - Primary 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
--- OUTSIDE RECORDS SUMMARY | 2021-10-24 12:04 | XMS_ITS | Encounter Summary ---
:1955 Author Organization [facility] Address [address] [place] [address] Care Team Providers Name Role Phone Edison Tam MD Primary Care Provider Encounter Details Date Type Department Care Team Description 11/19/2012 Orders Only [facility] C enter Positive RAIMUNDO (antinuclear Radhika-Wangensteen antibody ) Building 1st Floor, Clinic 1D Mail Code [address] [place], [place] [address] Social History Tobacco Use Types [...] Priority Date/Time Associated Diagnosis Comme nts XR FOOT BILATERAL Routine 11/19/2012 10:00 AM Positive RAIMUNDO Res ults for this G/E 3 VIEWS CDT (antinuclear procedure are i n antibody) the results section. documented in this encounter Results X-ray bl Foot 3+ views (11/19/2012 10:00 AM CDT) Anatomical Region Laterality Modality Foot, Ankle Bilateral Computed Radiography Specimen (Source) Anatomical Collection [...] findings documented in this encounter Care Teams Orthotic Technician Relationship Specialty Start Date End Date Edison Tam MD PCP - General Family Practice 09/21/11 07/22/[address] [address] documented as of this encounter
--- OUTSIDE RECORDS SUMMARY | 2021-10-24 12:04 | XMS_ITS | Encounter Summary ---
:1955 Author Organization [facility] Address [address] [place] [address] Care Team Providers Name Role Phone Edison Tam MD Primary Care Provider Encounter Details Date Type Department Care Team Description 11/19/2012 Orders Only [facility] C enter Positive RAIMUNDO (antinuclear Radhika-Wangensteen antibody ) Building 1st Floor, Clinic 1D Mail Code 152 [place], [place] [address] Social History Tobacco Use Types [...] Priority Date/Time Associated Diagnosis Comme nts XR ANKLE BILATERAL Routine 11/19/2012 10:00 AM Positive RAIMUNDO Re sults for this G/E 3 VIEWS CDT (antinuclear procedure are i n antibody) the results section. documented in this encounter Results X-ray bl ankle 3+ views (11/19/2012 10:00 AM CDT) Anatomical Region Laterality Modality Leg, Ankle, Foot Bilateral Computed Radiography Specimen (Source) Anatomical Collection [...] findings documented in this encounter Care Teams Lace Paper Machine Operator Relationship Specialty Start Date End Date Edison Tam MD PCP - General Family Practice 09/21/11 07/22/14 164 [facility] [address] [place] [address] documented as of this encounter
--- OUTSIDE RECORDS SUMMARY | 2021-10-24 12:04 | XMS_ITS | Encounter Summary ---
:1955 Author Organization [facility] Address [address] [facility] [place] [address] Care Team Providers Name Role Phone Edison Tam MD Primary Care Provider Reason for Visit Reason Onset Date Comments Procedure 02/26/2013 bilateral SI joint i njection Encounter Details Date Type Department Care Team Description 02/26/2013 Telephone [facility] Pain Management Procedu re (bilateral Pain Management Program, [facility] SI join t injection) [facility] [address] [place] [address] Social History Tobacco Use Types Packs/Day Years Used Date Former Smoker 1 18 Smokeless Tobacco: Former User Q uit: 09/20/1991 Alcohol Use Standard Drinks/Week Comments No 0 (1 standard drink = 0.6 oz pure alcoho l) Sex Assigned at Date Recorded Not on file documented as of this encounter Miscellaneous Notes Telephone Encounter - Divya Dumont - 02/26/2013 10:56 AM CST Pre-screening questions for Radiology Injections: Injection to be done at which interventional clinic site? [facility] Procedure ordered by Dr. Juarez Procedure ordered? SI Joint Injection What insurance are we billing for this procedure? [employer] If this is going to be billed to [employer] or [employer], DO NOT schedule and route to [facility] S and Mo ONLY if Lumbar ORTIZ or SI joint inj - Is this going to be billed to [facility]? No (If Yes, DO NOT schedule - route to [facility]onia and Mo) Is an correctional facility nurse needed? No Patient has a ride home? (mandatory) Yes Is patient taking any blood thinners (plavix, coumadin, jantoven, warfarin, heparin, pradaxa or dabigatran )? No (If so, do not schedule, contact RN and/or MD) Is patient taking any aspirin products? No?? If so, how much? (If more than 325mg/day DO NOT schedule. Contact RN/MD; If patient is taking less than 325mg/day instruct pt to hold dose the day of the procedure.) Does the patient have a bleeding or clotting disorder? No (If yes, okay to schedule, but contact RN/MD). Is patient taking any antibiotics or being actively treated for cancer? No (If so, do not schedule and contact RN) Any allergies to contrast dye, Iodine, shellfish, or numbing and steroid medications? No Patients are not to have immunizations w/in 7 days before or after the procedure. reviewed Does patient have an MRI/CT? Does not know (SI joint and hip injections do not require an MRI) ?? If so ,was it done at [facility]? (If not at [facility], [facility], or [facility] DO NOT SCHEDULE contact RN). ?? If not, where was it done? Was the MRI done w/in the last 2 years? (If not, do not schedule and contact the RN) Reminders (please tell patient if applicable): Any chance of ? If yes, do not schedule, contact nurse No Pt will need to fast for 6 hours prior to procedure (No food or drink - NPO). It is ok to take medications (except blood thinners) with sips of water. For Patients 85 or older, we recommend having an adult stay with them for the remainder of the day For Cervical Procedures: - Pt must arrive 30 minutes early for IV start - Pt must hold aspirin for 7 days prior to procedure - The earliest available appointment for cervical procedures is 8:45am - The latest available appointment for cervical procedures is 2:30pm For Sympathetic or sedation procedures: - pt must arrive 30 minutes early for IV start Other notes? Does the patient have any questions? MENT CONTROL COORDINATOR documented in this encounter Plan of Treatment Not on filedocumented as of this encounter Visit Diagnoses Not on filedocumented in this encounter Care Teams Chocolate Production Machine Operator Relationship Specialty Start Date End Date Edison Tam MD PCP - General Family Practice 09/21/11 07/22/[address] [address] documented as of this encounter
--- OUTSIDE RECORDS SUMMARY | 2021-10-24 12:04 | XMS_ITS | Encounter Summary ---
:1955 Author Organization [facility] Address [facility] [place] [address] Care Team Providers Name Role Phone Edison Tam MD Primary Care Provider Reason for Visit Reason Comments Consult Bilateral SI Joint pain, ons et 1970 - has been on prednisone since. Encounter Details Date Type Department Care Team Description 04/10/2013 Office Visit [facility] Nabor Villanueva Sacroiliac joint pain (Prima ry Dx); [facility] Jimbo del rosario MD LBP (low back pain); [address] Crohn's disease of both small and large intestine with complication (H) 1st Floor, [address] [place], [place] [address] [address] [place] [address] Social History Tobacco Use Types Packs/Day Years [...] - - Weight 50.8 kg (112 lb) 04/10/2013 8:39 AM NET SOFTWARE DEVELOPER Height 157.5 cm (5' 2) 04/10/2013 8:39 AM NET SOFTWARE DEVELOPER Body Mass Index 20.49 04/10/2013 8:39 AM NET SOFTWARE DEVELOPER documented in this encounter Progress Notes Nabor Villa MD - 04/10/2013 8:44 AM CST CC: left SI joint pain & left leg weakness DOI: Ongoing for many years REFERRED BY: Dr. Tam SUBJECTIVE: Maria E Coley is a 57 year old female who is seen here today as a new patient to mefor the problems of left sided low back pain and left leg weakness. She has a history of a previous some L45 laminectomy that was done in the 2006 in 2008. She currently describes pain that radiates down her left leg that's a sharp aching discomfort. This is aggravated by sitting, standing, bending, kneeling. That's alleviated by stretching and by doing her miles chi exercises. She has numbness and aching. She rates her pain as 4 on a scale of 10. She had seen Dr. Adams previously and has had injections for her back pain that have been somewhat helpful. VOCATION/RESTRICTIONS: She is disabled due to Crohn's disease History Social History ??? Marital Status: Single [...] on file Social History Narrative Moved to [place] from [facility]. She is living in an apartment [facility]. HABITS: She's a nonsmoker. She normally exercises by doing miles chi on a daily basis. She states thatshe's not able to do any other exercises due to the severity of her pain. 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 ROS: Review of systems is extensive and is noted below. This is reviewed in her chart. She has Crohn's disease and has had steroid use for many years. She is a past smoker with an 18 pack year history of use. Past Surgical History Procedure Date ??? Appendectomy open 1985 ??? Left ovary removal was removed during a resection ??? 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 Sigmoidectomy left ovary removal ??? Small bowel resection 1986 colon and distal ilium ??? Back surgery 2008 L4-L5 laminectomy ??? Back surgery 2010 L5 ??? Colonoscopy ??? Release carpal tunnel right ??? Esophagoscopy, gastroscopy, duodenoscopy (egd), combined 08/26/2012 Procedure: COMBINED ESOPHAGOSCOPY, GASTROSCOPY, DUODENOSCOPY (EGD), BIOPSY SINGLE OR MULTIPLE;; Surgeon: Charan Salazar MD; Location: [facility] Patient Active Problem List Diagnosis ??? Yossi's [...] ??? Numbness and tingling of left leg Current Outpatient Prescriptions Medication ??? Lactobacillus (ACIDOPHILUS PO) ??? cholecalciferol (VITAMIN D) 1000 UNIT tablet ??? acetaminophen (TYLENOL) 500 MG tablet ??? Levothyroxine Sodium 50 MCG CAPS ??? rOPINIRole (REQUIP) 1 MG tablet ??? predniSONE (DELTASONE) 1 MG tablet ??? VANCOMYCIN HCL PO ??? Potassium Chloride CR 8 MEQ CPCR ??? propranolol (INDERAL) 20 MG tablet ??? predniSONE (DELTASONE) 5 MG tablet ??? buPROPion (WELLBUTRIN SR) 150 MG 12 hr tablet ??? ALPRAZolam (XANAX) 0.5 MG tablet ??? calcium carbonate (TUMS) 500 MG chewable tablet ??? ORDER FOR DME ??? multivitamin (THERA-PLUS) LIQD ??? BRQA-FAC-XECJTGO ??? Carboxymethylcellulose Sodium (REFRESH TEARS OP) ??? fluorouracil (EFUDEX) 5 % cream ??? cyanocobalamin 1000 MCG/ML injection ??? guaiFENesin (MUCINEX) 600 MG 12 hr tablet ??? Menthol, Topical Analgesic, (ICY HOT EX) ??? Calcium Citrate-Vitamin D (CITRACAL + D PO) No current facility-administered medications for this visit. Facility-Administered Medications Ordered in Other Visits Medication ??? [COMPLETED] Tdap (sdiqodf-edzilzkriu-zogxz pertussis) (ADACEL) vaccine for Adults or Adolescents0.5 mL ??? [COMPLETED] lidocaine 1 % injection Allergies:Humira; Ibuprofen sodium; Loratadine; Lyrica; No clinical screening - see comments; Remicade; Demerol; Morphine hcl; Penicillin g; Sulfa drugs; and Tramadol IMAGING: Exam: 3 views of the sacroiliac joints dated 11/19/2012. Comparison: None. Clinical history: Back pain. Findings: 3 views of the sacroiliac joints were obtained. The sacroiliac joints are patent. No erosive changes are noted. No abnormal areas of sclerosis are seen. Disc space narrowing is noted in the lower lumbar spine. Question of bone island right supra-acetabular region. CT SCAN LUMBAR SPINE- 09/08/2012 Impression: 1. Changes from decompressive laminectomies at L3-L4. 2. Bilateral pars interarticularis defects at L5 with trace anterolisthesis of L5 relative to S1, unchanged. 3. Mild to moderate spinal canal narrowing at L2-3, slightly worsened since 12/03/2011. 4. Multilevel neuroforaminal narrowing, most pronounced at L3-4, where it is moderate to severe on the left and moderate on the right. Also severe degenerative disc disease at L4-5 with essentially complete loss of disc height and moderate bilateral neural foraminal narrowing. ELDER LEO MD OBJECTIVE: Patient's height is 5 foot 2 inches. Weight 112 pounds. Alert oriented x3. Normal respirations normal ambulation. INSPECTION: On inspection of the back she has a healed surgical scar over the midline spine to levelof L34 to S1. PALPATION: There is no tenderness with midline spinal palpation. She is tender with palpation over the left SI joint in the left paralumbar region. No right SI joint tenderness. No tenderness over the trochanteric bursa or iliac crests. No tenderness over the legs or lower extremities. ROM: She is very stiff. Forward flexion is with her hands just barely to level of her knees. Back extension 10?? external rotation or lateral flexion approximately 15?? bilaterally. MOTOR: Motor strength testing shows weakness in the left lower extremity with 4- 4+ out of 5 for hip flexion, hip extension, biceps and hamstrings on the left. Anterior tib and gastroc appear within normal limits. Hallux flexor and extensor within normal limits. Right lower extremity is normal. SENSORY: Sensation appears intact both left and right. VASCULAR: Intact SPECIAL TESTS: Vida testing shows no pain on the right with 60?? external rotation 25?? internal rotation. On the left she has discomfort with external rotation at 45?? but less discomfort with internal rotation to 25??. There is consistent with irritation SI joint greater than the external rotators of the hip. Encounter Diagnoses Name Primary? Sacroiliac joint pain Yes ??? LBP (low back pain) ??? Crohn's disease of both small and large intestine with complication CLINICAL ASSESSMENT/PLAN: 57-year-old female with a many year history of chronic low back pain and lumbar surgeries as noted above. She's having focal pain in the left SI joint and symptoms of weaknessand numbness in the left lower extremity there either due to radicular nerve root impingement the lower lumbar level or sciatic discomfort. At this point would like to proceed with an MRI of the lumbarspine and also obtain an EMG to further evaluate and differentiate these findings given the chronicity and severity of her ongoing discomfort. She is scheduled for an SI joint injection on April. We'll see her in followup after completion of these studies. Greater than 50% of the total time (30 min) in this patient encounter was spent on counseling and/orcoordination of care. We reviewed diagnostic results, impressions, and discussed other possible elaborative imaging studies if symptoms do not improve. We discussed the implications of the diagnosis, as well as risks and benefits of management options. We reviewed treatment instructions and our scheduled follow-up as specified in the discharge plan. We also discussed the importance of compliance withthe chosen course of treatment. The patient is in agreement with this plan and has no further questions. Nabor Villa MD SOFTWARE DEVELOPER documented in this encounter Nursing Notes 04/10/2013 8:30 AM CST >> FLACA Jamison Apr 10, 2013 8:44 AM Reason For Visit: Patient presents with: Consult - Bilateral SI Joint pain, onset 1969 - has been on prednisone since. Canal Tender? No Occupation Disabled. Currently working? No. Work status? On disability. Date of injury: Started in 1969 Type of injury: Low back/SI joint pain. Date of surgery: L4-5 laminectomy 2005 Type of surgery: L4-5 laminectomy. Smoker: No Request smoking cessation information: No Ht 1.575 m (5' 2) Wt 50.803 kg (112 lb) BMI 20.48 kg/m2 Pain Assessment Patient Currently in Pain: Yes 0-10 Pain Scale: 4 Primary Pain Location: Back Pain Orientation: Lower Other Pain Locations: Radiating down left leg - numbness Pain Descriptors: Numbness;Sharp;Aching Alleviating Factors: Stretching Aggravating Factors: Sitting;Standing;Bending;Kneeling Flaca Bell MA documented in this encounter Miscellaneous Notes Initial Assessments - Natalya Valdes-Provider - 04/14/2013 3:24 PM CST SOFTWARE DEVELOPER documented in this encounter Plan of Treatment Not on filedocumented as of this encounter Visit Diagnoses Diagnosis Sacroiliac joint pain - Primary Disorders of sacrum LBP (low back pain) Lumbago Crohn's disease of both small and large intestine with complication (H) 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
--- OUTSIDE RECORDS SUMMARY | 2021-10-24 12:04 | XMS_ITS | Encounter Summary ---
:1955 Author Organization [facility] Address [address] [place] [address] Care Team Providers Name Role Phone Edison Tam MD Primary Care Provider Encounter Details Date Type Department Care Team Description 01/07/2013 Orders Only Medicine GI - 1E Charan Salazar MD Candidiasis of mouth [place] [address] (Primary Dx) [place], [place] 1st Floor, Clinic [address] [place] [address] [place] [address] Social History Tobacco Use [...] as of this encounter Visit Diagnoses Diagnosis Candidiasis of mouth - Primary documented in this encounter Care Teams Interior Design Principal Relationship Specialty Start Date End Date Edison Tam MD PCP - General Family Practice 09/21/11 07/22/[address] [address] documented as of this encounter
--- OUTSIDE RECORDS SUMMARY | 2021-10-24 12:04 | XMS_ITS | Encounter Summary ---
:1955 Author Organization [facility] Address [address] [place] [address]. [place] [address] Care Team Providers Name Role Phone Edison Tam MD Primary Care Provider Encounter Details Date Type Department Care Team Description 01/28/2013 Orders Only [facility] Charan Salazar MD Crohn's disease (H); [address] Inflammatory bowel disease (Crohn's dise ase) (H) Laboratory [place], [place] [address] [facility] [address] [place], [place] [phone] (Wo rk) [address] Social History Tobacco Use [...] Name Priority Date/Time Associated Diagnosis Comme nts [place] MISCELLANEOUS Routine 01/28/2013 10:32 Resul ts for this TEST AM SENSOR OPERATOR procedure are i n the results section. INR Routine 01/28/2013 10:32 Inflammatory bowel Resul ts for this AM SENSOR OPERATOR disease (Crohn's procedure a re in disease) (H) the results section. PARTIAL THROMBOPLASTIN Routine 01/28/2013 10:32 Inflammatory b owel Results for this TIME AM SENSOR OPERATOR disease (Crohn's procedure a re in disease) (H) the results section. HEPATIC FUNCTION PANEL Routine 01/28/2013 10:32 Inflammatory b owel Results for this AM SENSOR OPERATOR disease (Crohn's procedure a re in disease) (H) the results section. FOLIC ACID RBC Routine 01/28/2013 10:32 Crohn's disease (H) Re sults for this AM SENSOR OPERATOR procedure are i n the results section. FOLATE Routine 01/28/2013 10:32 Crohn's disease (H) Resu lts for this AM SENSOR OPERATOR procedure are i n the results section. documented in this encounter Results [facility] Miscellaneous Test (01/28/2013 10:32 AM SENSOR OPERATOR) [facility] Method Time Signature Result SEE NOTE [facility] (Note) [facility] Test name ?Result ?? Units ??RefIntvl CAMPUS LABS Folate, RBC ? See Note ?ng/m L 280-903 RBC FOLATE result is greater than 1113 ng/ml. INTERPRETIVE INFORMATION: Folate, RBC Effective January 19 ??2012 Platform change from Siemens IR Diagnostyxaur to Althea[employer] DxI REFERENCE INTERVAL CHANGE Due to a reagent kit thoroughbred horse farm manager extended backorder, an alternate FDA-approved kit has been validated and implemented by [employer]. The following Reference Interval applies to this result. Reference Interval: Greater than or equal to 366 ng/mL = Normal Performed by [facility], [address] [facility] [address] [email or web address], Grant Akins MD, Lab. Director Test Name RBCFOL [facility] LABS Send Outs 70,385 [facility] Code [facility] Send Outs Red Blood Cells [facility] Specimen [facility] Specimen Anatomical Collection Method Collection Time Receive d Time (Source) Location / / Volume Laterality 01/28/2013 10:32 01/28/2013 AM SENSOR OPERATOR 10:37 AM SENSOR OPERATOR Charan Salazar MD LAB - BLOOD ORDERABLES Performing Organization Address City/[facility]/ZIP Code Phon e Number [facility] [address] [place], [place] [phone] [place] [address] LABS Partial thromboplastin time (01/28/2013 10:32 AM SENSOR OPERATOR) P athologist Signature PTT 34 22 - 37 sec [facility] LABS Specimen Anatomical Collection Method Collection Time Receive d Time (Source) Location / / Volume Laterality Blood specimen 01/28/2013 10:32 3 (specimen) AM SENSOR OPERATOR 10:37 AM SENSOR OPERATOR Charan Salazar MD LAB - BLOOD ORDERABLES Performing Organization Address City/[facility]/ZIP Code Phon e Number [facility] [address] [place], [place] [phone] [place] [address] LABS INR (01/28/2013 10:32 AM SENSOR OPERATOR) P athologist Signature INR 0.96 0.86 - 1.14 [facility] LABS Specimen Anatomical Collection Method Collection Time Receive d Time (Source) Location / / Volume Laterality Blood specimen 01/28/2013 10:32 3 (specimen) AM SENSOR OPERATOR 10:37 AM SENSOR OPERATOR Charan Salazar MD LAB - BLOOD ORDERABLES Performing Organization Address City/[facility]/ZIP Code Phon e Number [phone] [place] [address] LABS Hepatic panel (01/28/2013 10:32 AM SENSOR OPERATOR) P athologist Signature Bilirubin 0.0 0.0 - 0.3 [facility] Conjugated mg/dL [facility] LABS Bilirubin Delta 0.0 0.0 - 0.4 [facility] mg/dL [facility] LABS Bilirubin Total 0.2 0.2 - 1.3 [facility] mg/dL [facility] LABS Albumin 4.1 3.3 - 4.9 [facility] g/dL [facility] LAB[facility] Protein Total 6.9 6.8 - 8.8 [facility] g/dL [facility] LAB[facility] Alkaline 74 40 - 150 [facility] Phosphatase U/L [facility] LAB[facility] ALT 34 0 - 50 U/L [facility] LABS AST 27 0 - 45 U/L [facility] LABS Specimen Anatomical Collection Method Collection Time Receive d Time (Source) Location / / Volume Laterality Blood specimen 01/28/2013 10:32 3 (specimen) AM SENSOR OPERATOR 10:37 AM SENSOR OPERATOR Charan Salazar MD LAB - BLOOD ORDERABLES Performing Organization Address City/[facility]/ZIP Code Phon e Number [facility] [address] [place] [address] [facility] LABS Folic acid RBC (01/28/2013 10:32 AM SENSOR OPERATOR) Patholo gist Method Time Signature Folic Acid Test sent 280 - 171 [facility] RBC to [place]. /[facility] See ARMISC [facility] CAMP[facility] LABS result. Specimen Anatomical Collection Method Collection Time Receive d Time (Source) Location / / Volume Laterality Blood specimen 01/28/2013 10:32 3 (specimen) AM SENSOR OPERATOR 10:37 AM SENSOR OPERATOR Charan Salazar MD LAB - BLOOD ORDERABLES Performing Organization Address City/[facility]/ZIP Code Phon e Number [facility] [address] [place] [address] [facility] LABS Folate (01/28/2013 10:32 AM SENSOR OPERATOR) P athologist Signature Folate >24.0 >3.3 ng/mL [facility] Ref range 3.00 to 17.00 ng/dL. CAMPUS LABS Specimen Anatomical Collection Method Collection Time Receive d Time (Source) Location / / Volume Laterality Blood specimen 01/28/2013 10:32 3 (specimen) AM SENSOR OPERATOR 10:37 AM SENSOR OPERATOR Charan Salazar MD LAB - BLOOD ORDERABLES Performing Organization Address City/[facility]/ZIP Code Phon e Number [facility] [address] [place] [address] [facility] LABS documented in this encounter Visit Diagnoses Diagnosis Crohn's disease (H) Regional enteritis of unspecified site Inflammatory bowel disease (Crohn's dise ase) (H) Regional enteritis of unspecified site documented in this encounter Care Teams Manager Product Support Relationship Specialty Start Date End Date Edison Tam MD PCP - General Family Practice 09/21/11 07/22/[address] [address] documented as of this encounter
--- OUTSIDE RECORDS SUMMARY | 2021-10-24 12:04 | XMS_ITS | Encounter Summary ---
:1955 Author Organization [facility] Address [address] [place] [id number] Care Team Providers Name Role Phone Edison Tam MD Primary Care Provider Reason for Visit Reason Onset Date Comments Other 11/20/2012 PA-MTX Encounter Details Date Type Department Care Team Description 11/20/2012 Telephone Medicine GI - 1E Charan Salazar MD Other (PA-MTX) [place] [id number] [place] [address] Floor, [facility] [address] [place] [address] [place] [phone] Social History Tobacco Use Types Packs/Day Years Used Date Former Smoker 1 18 Smokeless Tobacco: Former User Q uit: 09/20/1991 Alcohol Use Standard Drinks/Week Comments No 0 (1 standard drink = 0.6 oz pure alcoho l) Sex Assigned at Date Recorded Not on file documented as of this encounter Miscellaneous Notes Telephone Encounter - Rebekah Mason RN - 11/20/2012 3:22 PM CDT Pharmacist from [facility] called to inform me that pt will need another PA for MTX. Prior PA for Methotrexate sodium 25 mg/ml was approved by [facility] on 11/12/2012 through 11/10/2013. [facility] pharmacy only has 10 ml vials and can't dispense to pt with existing PA. I have called [facility] and explained that therapy has been delayed and another PA would cause more delay ment. Nicholas informed me that they would e-mail the PA department to approve a 10 ml vial without the need of a new PA. I will continue to follow. documented in this encounter Plan of Treatment Not on filedocumented as of this encounter Visit Diagnoses Not on filedocumented in this encounter Care Teams [employer] Consult[employer] Relationship Specialty Start Date End Date Edison Tam MD PCP - General Family Practice 09/21/11 07/22/[phone] [id number] documented as of this encounter
--- OUTSIDE RECORDS SUMMARY | 2021-10-24 12:05 | XMS_ITS | Encounter Summary ---
:1955 Author Organization [facility] Address [address] [place] [id number] Care Team Providers Name Role Phone Edison aTm MD Primary Care Provider Reason for Visit Reason Comments Consult Maria E states she is being s een today for a Lupus consultation. Encounter Details Date Type Department Care Team Description 10/29/2012 Office Visit [facility] Rheumatolo gy Ann, Siddhartho, Positive RAIMUNDO (antinuclear an tibody) (Primary Dx); 2nd Floor, Clinic 2A Cardiac murmur Luke Barah[address] [id number] [phone] Social History Tobacco Use Types Packs/Day Years Used Date Former Smoker 1 18 Smokeless Tobacco: Former User Q uit: 09/20/1991 Alcohol Use Standard Drinks/Week Comments No 0 (1 standard drink = 0.6 oz pure alcoho l) Sex Assigned at Date Recorded Not on file documented as of this encounter Last Filed Vital Signs Vital Sign Reading Time Taken Comments Blood Pressure 94/58 10/29/2012 10:20 AM CDT Pulse 79 10/29/2012 10:20 AM CDT Temperature 36.6 ??C (97.9 ??F) 10/29/2012 10:20 AM CDT Respiratory Rate - - Oxygen Saturation 96% 10/29/2012 10:20 AM CDT Inhaled Oxygen Concentration - - Weight 51.3 kg (113 lb) 10/29/2012 10:20 AM CDT Height 157.8 cm (5' 2.11) 10/29/2012 10:20 AM CDT Body Mass Index 20.6 10/29/2012 10:20 AM CDT documented in this encounter Progress Notes Debbi Juarez MD - 10/29/2012 3:29 PM CDT Rheumatology Consultation Maria E Coley Date of : 1955 Age: [age] year old Date of Visit: 10/29/2012 Reason for consult: Positive RAIMUNDO in the setting of Crohn's disease, Yossi's thyroiditis. 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 Patient reports multiple complaints. On exam, she has no signs of active lupus flare. Her facial rash has some telangiectasia and is involving the nasolabial folds which makes malar rash less likely. DDx is rosacea or steroid-related telangiectasia. For her diffuse pain, this is non-specific and she is at higher risk of fibromyalgia given baseline autoimmune process. She has a possible Raynaud's phenomenon and livedo reticularis. For a concern of positive RAIMUNDO, this was at low titer of 1:80 and is with negative other autoimmune labs including anti dsDNA, SSSA, SSB in 2004. Yossi's thyroiditis itself can cause this positive RAIMUNDO. Therefore, we would repeat all labs at this time because the last result was in 2004-08. We have low suspicion of lupus/SLE and we doubt if the patient is actually had a diagnosis of lupus in 2004-08.Basic labs obtainned today show no active inflammation. Her recent UA showed no active sediments andrecent EGD and flexible sigmoidoscopy showed no active Crohn's disease. Labs on this admission are suggestive of no acute inflammatory process given normal CRP and ESR, also normal C3 and C4. - we agree that patient should be on steroid sparing agent for which Dr. Salazar of Gastroenterologyplanned for methotrexate. Patient encouraged to be compliant to the clinic f/u. - for her osteoporosis, she had prior Endocrinology clinic. Patient reports she can not tolerate alendronate. We would have her re-establish clinic with Endocrinology. Might consider Prolia - low titer RAIMUNDO is likely related to baseline Yossi's thyroiditis. DDx of her multiple complaints would be undifferentiated connective tissue disease. Would monitor after the initiation of methotrexate - when methotrexate is started, would suggest very slow tapering course of prednisone given patient has been on prednisone for a long time. Would propose decreasing by 1 mg every 1-2 months to avoid adrenal insufficiency symptoms - for worsening shortness of breath associated with activities, and orthopnea, along with systolic murmur grade II/ at the aortic valve and pulmonic valve area, without profound findings of decompensating heart failure, would defer this to PCP. We would propose stress TTE (threadmill vs dobutamine) RTC at 3 months, Dr. Juarez. Orders Placed This Encounter Procedures ??? X-ray bl Foot 3+ views ??? X-ray bl ankle 3+ views ??? X-ray bl hand 3+ vw ??? X-ray bl Wrist G/E 3 vws ??? CBC with platelets differential ??? Complement C3 ??? Complement C4 ??? CRP inflammation ??? DNA double stranded antibodies ??? DHEERAJ Panel (ELECTRONIC BENCH TECHNICIAN, HENDRICKSON, Scleroderma, SSAB, SSBB); DHEERAJ, Antibodies, Panel ??? Erythrocyte sedimentation rate auto ??? Cyclic Citrullinated Peptide IgG IgA ??? Cryoglobulin quantitative ??? Protein electrophoresis ??? Routine UA with micro reflex to culture ??? Rheumatoid factor ??? Vitamin D Deficiency ??? Comprehensive metabolic panel ??? Antinuclear antibody screen by EIA (RAIMUNDO) ??? Histone antibody IgG ??? Beta-2 glycoprotein antibodies IgG IgM Thank you very much for the consultation. Please do not hesitate to contact if any questions or concerns. Patient seen and plan discussed with Dr. Juarez. Jayla Dunbar PGY3 [phone] ATTENDING NOTE: I saw and evaluated the patient with Dr. Dunbar on 10/29/2012. I agree with the findings and recommendations. Debbi Juarez MD Chief Complaint: Positive RAIMUNDO in the setting of Crohn's disease, Yossi thyroiditis. History is obtained from the patient History of Present Illness: A 56 year old female with a PMH of complicated fistulizing Crohn's disease since age 13 (chronic enterovesicular/rectovaginal/perianal fistulae) s/p ileocecal resection w/ primary anastomosis 1985 and repeat limited ileal resection for obstructive symptoms 1987, previous exposure to Ramicade and Humira (failed) - Imuran (intolerance) - methotrexate (last used 2011, subsequently lost follow- up), osteoporosis, chronic steroid dependence, s/p left ovarian resection, Yossi's thyroiditis on levothyroxine, moderate to severe L3-4 spinal stenosis, presents to the clinic for further evaluation of priorpositive RAIMUNDO in the setting of several autoimmune diseases. Patient has been charted as no show for several occasions including PCP clinics, GI clinics, and Endocrinology clinics. She reports to me that they did not tell me to follow up. She reports extensive complaints which is getting worse over the past few months. Patient reports she has butterfly rash and malar rash which is getting worse when exposed to sun. She can not recall the onset. She has some sore throat For 3 weeks and is concerned about isadora infection. She had recent EGD for Crohn's surveillance in 08/2012 which showed mild reflux esophagitis. This is stable over 3 weeks. She reports having chest pain which is getting worse when taking a big breath, nor related to position and is not associated with meals. She has worsening shortness of breath gradually and has to use 4 pillows at night. She has some shortness of breath when walking recently, improved with restbut not completely gone. No hemoptysis. She felt some palpitation without presyncopal or syncopal episodes. She felt some phlegm in the throat over the past 2 weeks but can not cough out. She reports decreased appetite, lost weight 20 lbs recently, and some night sweat which is not quite significant. She did not soak her bed sheet or pyjamas. She reports some oral ulcers which is just resolved few days ago. She reports some diffuse pain at fingers, toes, knees, shoulders for which sometime can not make a tight fist. In addition, patient had recent tingling and weakness of the right lower extremity.Her MRI showed moderate to severe L3-4 stenosis. She also reports some dry mouth and dry eyes. When asked about the plan for methotrexate from Dr. Salazar of GI, patient reports there is an evidence of candidal infection from methotrexate. I want to continue prednisone. When asked about the GIfollow up. She said she did not hear anything after her endoscopies but it seemed she however had noshow. Per chart review, she had remote work up for autoimmune labs, with anti dsDNA, anti SSA/SSB, and rheumatoid factor. Negative lupus anticoagulant and anti- cardiolipin. Her RAIMUNDO in 2004 was positive at 1:80, homogeneous pattern. At that time, she had diffuse joint pain and rash. No DEAD MAIL CHECKER, renal, cardiac, or pulmonary involvement. That episode did not require hospitalization. Her symptoms improved after a burst of oral prednisone. Past Medical History: Past Medical History Diagnosis [...] cancer (left) ??? Yossi's disease Past Surgical History: Past Surgical History Procedure Date ??? Appendectomy [...] MULTIPLE;; Surgeon: Charan Salazar MD; Location: GI Social History: History Substance Use Topics ??? Smoking status: Former Smoker -- 1.0 packs/day for 18 years ??? Smokeless tobacco: Former User Quit date: 09/20/1991 ??? Alcohol Use: No Family History: Family History Problem Relation Age of Onset [...] ??? Colon Polyps No family hx of Oldest brother has asthma, his twins sister had multiple sclerosis at the age of 19. Patient reportsshe was certain about about the diagnosis and onset of symptom. Patient's twins sister got Sjogren's disease. Father has rheumatoid arthritis. Onset at middle age. Mother was a smoker, has lung cancer. Patient has been unemployed due to chronic illness. Allergies: Allergies Allergen Reactions ??? Humira Rash [...] Profound lethargy ??? Tramadol Itching and Rash Medications: Current Outpatient Prescriptions Medication Sig ??? Potassium Chloride CR 8 MEQ CPCR Take 16 mEq by mouth daily Need appointment with Dr. Tam for refills. ??? rOPINIRole (REQUIP) 1 MG tablet Take [...] starts with a v. Possibly Venlafaxine. ??? methocarbamol (ROBAXIN) 750 MG tablet Take 1 tablet by mouth 2 times daily as needed. ??? ALPRAZolam (XANAX) 0.5 MG tablet Take 0.5 mg by mouth daily. ??? vitamin D (ERGOCALCIFEROL) 61699 UNIT capsule Take 50,000 Units by mouth. [...] Take 5 mLs by mouth daily. ??? [id number] Might-a mins spectrum once daily (Digestive Enzymes) [...] 1 tablet by mouth 2 times daily. Review of Systems: The 10 point Review of Systems is negative other than noted in the HPI Physical Exam: Vitals were reviewed Blood pressure 94/58, pulse 79, temperature 97.9 ??F (36.6 ??C), height 1.578 m (5' 2.11), weight 51.256 kg (113 lb), SpO2 96.00%. on room air. General: no acute distress, no pallor, no jaundice, no signs of chronic liver disease HEENT: no cervical LAD, no oral ulcers, good salivation at the floor of the mouth, normal anterior chambers per light exam, mild telangiectasia at the bilateral maxillary areas involving the nasolabialfolds, without typical malar rash pattern, no other rash, no alopecia, no cervical bruit, normal thyroid exam, normal JVP and no obvious abnormal venous pattern at neck CVS: systolic murmur II/ at BERTO and PVA without radiation, normal S1S2, no heaving, no GR RS: clear, equal Abd: soft, no tenderness, no distension, old midline surgical scar without signs of inflammation, normal BS, no bruit, no ecchymosis Ext: no signs of arthritis, no pitting edema, possible livedo reticularis and Raynaud's phenomenon, no digital pitting scar, noted for periungual erythema at fingers. No sclerodactyly. Minimal tenderness when pressing across the right MTPs. Right dorsalis pedis pulses 1+, left DP 2+. No signs of chronic arterial insufficiency Neuro: AAOx3, no stiffness of the neck. Normal DTRs. Nor delayed relaxation phase of the DTRs Data: Orders Placed This Encounter Procedures ??? X-ray bl Foot 3+ views ??? X-ray bl ankle 3+ views ??? X-ray bl hand 3+ vw ??? X-ray bl Wrist G/E 3 vws ??? CBC with platelets differential ??? Complement C3 ??? Complement C4 ??? CRP inflammation ??? DNA double stranded antibodies ??? DHEERAJ Panel (ELECTRONIC BENCH TECHNICIAN, HENDRICKSON, Scleroderma, SSAB, SSBB); DHEERAJ, Antibodies, Panel ??? Erythrocyte sedimentation rate auto ??? Cyclic Citrullinated Peptide IgG IgA ??? Cryoglobulin quantitative ??? Protein electrophoresis ??? Routine UA with micro reflex to culture ??? Rheumatoid factor ??? Vitamin D Deficiency ??? Comprehensive metabolic panel ??? Antinuclear antibody screen by EIA (RAIMUNDO) ??? Histone antibody IgG ??? Beta-2 glycoprotein antibodies IgG IgM HPI ROS Physical Exam documented in this encounter Nursing Notes 10/29/2012 10:00 AM CDT >> LISET WHITE CMA SatOct 29, 2012 10:22 AM Patient presents with: Consult - Maria E states she is being seen today for a Lupus consultation. Liset White CMA documented in this encounter Miscellaneous Notes Initial Assessments - Debbi Juarez MD - 10/30/2012 2:09 PM CDT documented in this encounter Plan of Treatment Not on filedocumented as of this encounter Procedures Procedure Name Priority Date/Time Associated Comments Diagnosis ROUTINE UA WITH Routine 10/29/2012 1:29 Positive RAIMUNDO Results f or this MICROSCOPIC REFLEX TO PM CDT (antinuclear proced ure are in CULTURE antibody) the results section. CYCLIC CIT PEPT IGG Routine 10/29/2012 12:03 Positive RAIMUNDO Resu lts for this PM CDT (antinuclear procedure are i n antibody) the results section. CBC WITH PLATELETS & Routine 10/29/2012 12:03 Positive RAIMUNDO Res ults for this DIFFERENTIAL PM CDT (antinuclear procedure are i n antibody) the results section. VITAMIN D DEFICIENCY Routine 10/29/2012 12:03 Positive RAIMUNDO Res ults for this SCREENING PM CDT (antinuclear procedure are i n antibody) the results section. RHEUMATOID FACTOR Routine 10/29/2012 12:03 Positive RAIMUNDO Result s for this PM CDT (antinuclear procedure are i n antibody) the results section. HISTONE ANTIBODY IGG Routine 10/29/2012 12:03 Positive RAIMUNDO Res ults for this PM CDT (antinuclear procedure are i n antibody) the results section. ERYTHROCYTE Routine 10/29/2012 12:03 Positive RAIMUNDO Results for this SEDIMENTATION RATE AUTO PM CDT (antinuclear proc edure are in antibody) the results section. DHEERAJ ANTIBODY PANEL Routine 10/29/2012 12:03 Positive RAIMUNDO Resul ts for this PM CDT (antinuclear procedure are i n antibody) the results section. PROTEIN ELECTROPHORESIS Routine 10/29/2012 12:03 Positive RAIMUNDO Results for this PM CDT (antinuclear procedure are i n antibody) the results section. DNA DOUBLE STRANDED Routine 10/29/2012 12:03 Positive RAIMUNDO Resu lts for this ANTIBODIES PM CDT (antinuclear procedure are i n antibody) the results section. CRYOGLOBULIN Routine 10/29/2012 12:03 Positive RAIMUNDO Results for this QUANTITATIVE PM CDT (antinuclear procedure are i n antibody) the results section. CRP INFLAMMATION Routine 10/29/2012 12:03 Positive RAIMUNDO Results for this PM CDT (antinuclear procedure are i n antibody) the results section. COMPREHENSIVE METABOLIC Routine 10/29/2012 12:03 Positive RAIMUNDO Results for this PANEL PM CDT (antinuclear procedure are i n antibody) the results section. COMPLEMENT C4 Routine 10/29/2012 12:03 Positive RAIMUNDO Results fo r this PM CDT (antinuclear procedure are i n antibody) the results section. COMPLEMENT C3 Routine 10/29/2012 12:03 Positive RAIMUNDO Results fo r this PM CDT (antinuclear procedure are i n antibody) the results section. BETA 2 GLYCOPROTEIN Routine 10/29/2012 12:03 Positive RAIMUNDO Resu lts for this ANTIBODIES IGG IGM PM CDT (antinuclear procedure are in antibody) the results section. ANTINUCLEAR ANTIBODY Routine 10/29/2012 12:03 Positive RAIMUNDO Res ults for this SCREEN BY EIA PM CDT (antinuclear procedure are in antibody) the results section. documented in this encounter Results (ABNORMAL) Routine UA with micro reflex to culture (10/29/2012 1:29 PM CDT) [facility] gist Method Time Signature Color Urine Light Yellow [facility] Appearance Urine Clear [facility] Glucose Urine Negative NEG mg/dL [facility] Bilirubin Urine Negative NEG [facility] Ketones Urine Negative NEG mg/dL [facility] Specific Clyman 1.009 1.003 - [facility] Urine 1.035 [facility] Blood Urine Negative NEG [facility] pH Urine 5.0 5.0 - 7.0 [facility] pH [facility] Protein Albumin Negative NEG mg/dL [facility] Urine [facility] Urobilinogen Normal 0.0 - 2.0 [facility] mg/dL mg/dL [facility] Nitrite Urine Negative NEG [facility] Leukocyte Negative NEG [facility] Esterase Urine [facility] Source Midstream [facility] Urine [facility] WBC Urine <1 0 - 2 [facility] /HPF [facility] RBC Urine 0 0 - 2 [facility] /HPF [facility] Squamous <1 0 - 1 [facility] Epithelial /HPF /HPF [facility] Urine [facility] Mucous Urine Present (A) NEG /LPF [facility] Specimen Anatomical Collection Method Collection Time Receive d Time (Source) Location / / Volume Laterality Urine specimen 10/29/2012 1:29 PM 013 1:34 (specimen) CDT PM CDT Debbi Juarez MD LAB - URINE ORDERABLES Performing Organization Address City/State/ZIP Code Phon e Number [facility] [address] [place] [address] [facility] Beta-2 glycoprotein antibodies IgG IgM (10/29/2012 12:03 PM CDT) P athologist Signature [id number]-[id number] 1 [facility] IgG CAMP[facility] Comment: Reference range: 0 to 20 Unit: [facility] Kchd-[id number] IgM 8 [facility] UNIVE RSITY [facility] Comment: Reference range: 0 to 20 Unit: [facility] (Note) INTERPRETIVE INFORMATION: Beta-2 Glycopr otein 1 Abs, IgG and IgM An IgG and/or IgM result of greater than 20 SGU and/or [facility]U on at least two occasions and at least 1 2 weeks apart is suggestive of antiphospholipid syndrome. Diagnosis should NOT be made solely on the basis of a sin gle specimen. Performed by [email or web address], [address] [facility] [place] [address] [phone] [email or web address], Grant Akins MD, L ab. Director Specimen Anatomical Collection Method Collection Time Receive d Time (Source) Location / / Volume Laterality Blood specimen 10/29/2012 12:03 3 (specimen) PM CDT 12:04 PM CDT Debbi Juarez MD LAB - BLOOD ORDERABLES Performing Organization Address City/State/ZIP Code Phon e Number [address] [facility] Histone antibody IgG (10/29/2012 12:03 PM CDT) athologist Signature Histone 0.1 [facility] Antibody,IgG [facility] Comment: Reference range: 0.0 to 0.9 Unit: Units (Note) INTERPRETIVE INFORMATION: Histone Ab, Ig G 0.9 Units or less ............ Negative 1.0 - 1.5 Units .............. Weak Pos itive 1.6 - 2.5 Units .............. Moderate Positive 2.6 Units or greater ......... Strong P ositive Performed by [email or web address], [address] [place] [address] [email or web address], Grant Akins MD, L ab. Director Specimen Anatomical Collection Method Collection Time Receive d Time (Source) Location / / Volume Laterality Blood specimen 10/29/2012 12:03 3 (specimen) PM CDT 12:04 PM CDT Debbi Juarez MD LAB - BLOOD ORDERABLES Performing Organization Address City/State/ZIP Code Phon e Number [facility] [address] [place] [address] [facility] Antinuclear antibody screen by EIA (RAIMUNDO) (10/29/2012 12:03 PM CDT) Patholo gist Method Time Signature RAIMUNDO Screen by <1.0 <1.0 [facility] EIA Interpretation: ??Negative [facility] Specimen Anatomical Collection Method Collection Time Receive d Time (Source) Location / / Volume Laterality Blood specimen 10/29/2012 12:03 3 (specimen) PM CDT 12:04 PM CDT Debbi Juarez MD LAB - BLOOD ORDERABLES Performing Organization Address City/State/ZIP Code Phon e Number [facility] [address] [place], [place] [id number] [place] [address] LABS Comprehensive metabolic panel (10/29/2012 12:03 PM CDT) P athologist Signature Sodium 140 133 - 144 [facility] mmol/L [facility] Potassium 3.6 3.4 - 5.3 [facility] mmol/L [facility] Chloride 102 94 - 109 [facility] mmol/L [facility] Carbon Dioxide 29 20 - 32 [facility] mmol/L [facility] Anion Gap 9 6 - 17 [facility] mmol/L [facility] Glucose 84 60 - 99 [facility] mg/dL [facility] Urea Nitrogen 14 7 - 30 [facility] mg/dL [facility] Creatinine 0.76 0.52 - [facility] 1.04 mg/dL [facility] GFR Estimate 78 >60 [facility] mL/min/1.[address] LAB[facility] GFR Estimate If >90 >60 [facility] Black mL/min/1.[address] [facility]S Calcium 8.7 8.5 - 10.4 [facility] mg/dL [facility] Bilirubin Total 0.4 0.2 - 1.3 [facility] mg/dL [facility] Albumin 4.1 3.3 - 4.9 [facility] g/dL [facility] Protein Total 7.0 6.8 - 8.8 [facility] g/dL [facility] Alkaline 75 40 - 150 [facility] Phosphatase U/L [facility] ALT 45 0 - 50 U/L [facility] AST 27 0 - 45 U/L [facility] Specimen Anatomical Collection Method Collection Time Receive d Time (Source) Location / / Volume Laterality Blood specimen 10/29/2012 12:03 3 (specimen) PM CDT 12:04 PM CDT Debbi Juarez MD LAB - BLOOD ORDERABLES Performing Organization Address City/State/ZIP Code Phon e Number [facility] [address] LABS Vitamin D Deficiency (10/29/2012 12:03 PM CDT) athologist Signature Vitamin D 36 30 - 75 [facility] Deficiency ug/L [facility] screening Comment: Season, race, dietary intake, and treatm ent affect the concentration of 48-winluwv-Obrmcte D. Values may decrea se during winter [...] questions, pl ease contact the laboratory at [phone]. Specimen Anatomical Collection Method Collection Time Receive d Time (Source) Location / / Volume Laterality Blood specimen 10/29/2012 12:03 3 (specimen) PM CDT 12:04 PM CDT Debbi Juarez MD LAB - BLOOD ORDERABLES Performing Organization Address City/State/ZIP Code Phon e Number [facility] [address] [facility]S Rheumatoid factor (10/29/2012 12:03 PM CDT) athologist Signature Rheumatoid 13 0 - 14 [facility] Factor IU/mL [facility]AMP[facility] Specimen Anatomical Collection Method Collection Time Receive d Time (Source) Location / / Volume Laterality Blood specimen 10/29/2012 12:03 3 (specimen) PM CDT 12:04 PM CDT Debbi Juarez MD LAB - BLOOD ORDERABLES Performing Organization Address City/State/ZIP Code Phon e Number [facility] [address] LABS (ABNORMAL) Protein electrophoresis (10/29/2012 12:03 PM CDT) Component Value Ref Test Analysis Performed At [facility] Range Method Time Signature Albumin 4.2 3.7 - [facility] Fraction 5.1 g/dL [facility] Alpha 1 0.4 0.2 - [facility] Fraction 0.4 g/dL [facility] Alpha 2 0.7 0.5 - [facility] Fraction 0.9 g/dL [facility] Beta Fraction 0.8 0.6 - [facility] 1.0 g/dL [facility] Gamma 0.6 (L) 0.7 - [facility] Fraction 1.6 g/dL [facility] Monoclonal 0.0 0.0 g/dL [facility] Peak [facility] ELP Essentially normal electrophoretic pattern. ??No monoc lonal protein seen. [facility] Interpretatio Pathologic significance req uires clinical correlation. ??Destini Mujica M.D., [place] n: Ph.D., Pathologist [facility] Specimen Anatomical Collection Method Collection Time Receive d Time (Source) Location / / Volume Laterality Blood specimen 10/29/2012 12:03 3 (specimen) PM CDT 12:04 PM CDT Debbi Juarez MD LAB - BLOOD ORDERABLES Performing Organization Address City/[facility] Code Phon e Number [address] LABS Cryoglobulin quantitative (10/29/2012 12:03 PM CDT) Component Value Ref Test Analysis Performed At [facility] Method Time Signature Cryoglobulin Negative NEG % [facility] No [facility] Specimen Anatomical Collection Method Collection Time Receive d Time (Source) Location / / Volume Laterality Blood specimen 10/29/2012 12:03 3 (specimen) PM CDT 12:04 PM CDT Debbi Juarez MD LAB - BLOOD ORDERABLES Performing Organization Address City/[facility] Code Phon e Number [address] LABS Cyclic Citrullinated Peptide IgG IgA (10/29/2012 12:03 PM CDT) [facility] Method Time Signature Cyclic Cit <20 <20 UNITS [facility] Pept IgG/IgA Interpretation: ??Negative [facility] LABS Specimen Anatomical Collection Method Collection Time Receive d Time (Source) Location / / Volume Laterality Blood specimen 10/29/2012 12:03 3 (specimen) PM CDT 12:04 PM CDT Debbi Juarez MD LAB - BLOOD ORDERABLES Performing Organization Address City/[facility]/ZIP Code Phon e Number [facility] [address] LABS Erythrocyte sedimentation rate auto (10/29/2012 12:03 PM CDT) athologist Signature Sed Rate 8 0 - 30 mm/h [facility] LABS Specimen Anatomical Collection Method Collection Time Receive d Time (Source) Location / / Volume Laterality Blood specimen 10/29/2012 12:03 3 (specimen) PM CDT 12:04 PM CDT Debbi Juarez MD LAB - BLOOD ORDERABLES Performing Organization Address City/[facility] Code Phon e Number [facility] [address] [place], [place] [phone] [place] [address] LABS DHEERAJ Panel (ELECTRONIC BENCH TECHNICIAN, HENDRICKSON, Scleroderma, SSAB, SSBB); DHEERAJ, Antibodies, Panel (10/29/2012 12:03 PM CDT) athologist Signature Ribonucleic 0 [facility] Protein IgG [facility] LABS Comment: Reference range: 0 to 40 Unit: AU/mL (Note) INTERPRETIVE INFORMATION: Ribonucleic Pr otein (DHEERAJ)Antibody, IgG 29 AU/mL or Less ............. Negative 30 - 40 AU/mL ................ Equivoca l 41 AU/mL or Greater .......... Positive ELECTRONIC BENCH TECHNICIAN antibody is seen in 95-100 percent o f mixed connective tissue disease and is considered specifi c for this syndrome if other antibodies are negative; ELECTRONIC BENCH TECHNICIAN is also present in 20-30 percent of systemic lupus erythema tosus and 15-25 percent of progressive systemic sclerosi s. ELECTRONIC BENCH TECHNICIAN antigens also contain epitopes that are immunolog ically identical to free Hendrickson antigens, therefore, the Leonel h antibody response must be considered when interpreting ELECTRONIC BENCH TECHNICIAN results. Hendrickson Antibody IgG 0 [facility] LABS Comment: Reference range: 0 to 40 Unit: AU/mL (Note) INTERPRETIVE INFORMATION: HENDRICKSON (DHEERAJ) Ab , IgG 29 AU/mL or Less ............. Negative 30 - 40 AU/mL ................ Equivoca l 41 AU/mL or Greater .......... Positive Hendrickson antibody is very specific for syst emic lupus erythematosus (SLE) but only occurs in 3 0-35% of SLE cases. The presence of antibodies to Hendrickson is o ften associated with renal disease. SSA (RO) Antibody IgG 1 [facility] LABS Comment: Reference range: 0 to 40 Unit: AU/mL (Note) INTERPRETIVE INFORMATION: SSA (Ro) (DHEERAJ) Ab, IgG 29 AU/mL or Less ............. Negative 30 - 40 AU/mL ................ Equivoca l 41 AU/mL or Greater .......... Positive SSA (Ro) antibody is seen in 70-75% of S jogren syndrome cases, 30-40% of systemic lupus erythema tosus (SLE) and 5-10% of progressive systemic sclerosis (PSS). SSB (LA) Antibody IgG 0 [facility] LABS Comment: Reference range: 0 to 40 Unit: AU/mL (Note) INTERPRETIVE INFORMATION: SSB (La) (DHEERAJ) Ab, IgG 29 AU/mL or Less ............. Negative 30 - 40 AU/mL ................ Equivoca l 41 AU/mL or Greater .......... Positive SSB (La) antibody is seen in 50-60% of S jogren syndrome cases and is specific if it is the only DHEERAJ antibody present. 15-25% of patients with systemi c lupus erythematosus (SLE) and 5-10% of patient s with progressive systemic sclerosis (PSS) also have this antibody. Scleroderma Antibody IgG [address] [facility] LABS Comment: Reference range: 0 to 40 Unit: AU/mL (Note) INTERPRETIVE INFORMATION: Scleroderma (S cl-70) (DHEERAJ) Ab, IgG 29 AU/mL or Less ............. Negative 30 - 40 AU/mL ................ Equivoca l 41 AU/mL or Greater .......... Positive Scleroderma (Scl-70) antibody is seen in 20-60% of patients with scleroderma and is considered diagn ostic and specific for scleroderma if it is the only DHEERAJ an tibody present. Scl-70 is also seen in approximately 25% of progressive systemic sclerosis (PSS). Performed by [email or web address], [address] [place] [address],[place] [id number] [email or web address], Grant Akins MD, L ab. Director Specimen Anatomical Collection Method Collection Time Receive d Time (Source) Location / / Volume Laterality Blood specimen 10/29/2012 12:03 3 (specimen) PM CDT 12:04 PM CDT Debbi Juarez MD LAB - BLOOD ORDERABLES Performing Organization Address City/[facility] Code Phon e Number [address] LABS DNA double stranded antibodies (10/29/2012 12:03 PM CDT) athologist Signature DNA-ds <15 0 - 29 [facility] Interpretation: ??Negative IU/mL [place] LABS Specimen Anatomical Collection Method Collection Time Receive d Time (Source) Location / / Volume Laterality Blood specimen 10/29/2012 12:03 3 (specimen) PM CDT 12:04 PM CDT Debbi Juarez MD LAB - BLOOD ORDERABLES Performing Organization Address City/State/ZIP Code Phon e Number [address] LABS CRP inflammation (10/29/2012 12:03 PM CDT) Analysis Performed At Patho logist Time Signature CRP Inflammation 5.3 0.0 - 8.0 [facility] mg/L [facility] LABS Specimen Anatomical Collection Method Collection Time Receive d Time (Source) Location / / Volume Laterality Blood specimen 10/29/2012 12:03 3 (specimen) PM CDT 12:04 PM CDT Debbi Juarez MD LAB - BLOOD ORDERABLES Performing Organization Address City/[facility]/ZIP Code Phon e Number [facility] [address] LABS Complement C4 (10/29/2012 12:03 PM CDT) athologist Signature Complement C4 31 15 - 50 [facility] mg/dL [place] LABS Specimen Anatomical Collection Method Collection Time Receive d Time (Source) Location / / Volume Laterality Blood specimen 10/29/2012 12:03 3 (specimen) PM CDT 12:04 PM CDT Debbi Juarez MD LAB - BLOOD ORDERABLES Performing Organization Address City/[facility]/ZIP Code Phon e Number [facility] [address] LABS Complement C3 (10/29/2012 12:03 PM CDT) athologist Signature Complement C3 130 76 - 169 [facility] mg/dL [place] LABS Specimen Anatomical Collection Method Collection Time Receive d Time (Source) Location / / Volume Laterality Blood specimen 10/29/2012 12:03 3 (specimen) PM CDT 12:04 PM CDT Debbi Juarez MD LAB - BLOOD ORDERABLES Performing Organization Address City/[facility]/ZIP Code Phon e Number [facility] [address] [place], [place] [phone] [place] [address] LABS (ABNORMAL) CBC with platelets differential (10/29/2012 12:03 PM CDT) [facility] Method Time Signature WBC 7.2 4.0 - [facility] 11.0 [place] 10e9/L [place] LABS RBC Count 4.61 3.8 - 5.2 [facility] 10e12/L [facility] LABS Hemoglobin 14.2 11.7 - [facility] 15.7 g/dL [facility] LABS Hematocrit 43.8 35.0 - [facility] 47.0 % [facility] LABS MCV 95 78 - 100 [facility] fl [facility] LABS MCH 30.8 26.5 - [facility] 33.0 pg [facility] LABS MCHC 32.4 31.5 - [facility] 36.5 g/dL [facility] RDW 12.9 10.0 - [facility] 15.0 % [facility] Platelet Count 225 150 - 450 [facility] 10e9/L [facility] LABS Diff Method Automated [facility] Method [facility] % Neutrophils 83.1 % [facility] LAB[facility] % Lymphocytes 10.2 % [facility] % Monocytes 6.0 % [facility] % Eosinophils 0.3 % [facility] % Basophils 0.1 % [facility] % Immature 0.3 % [facility] Granulocytes [facility] LABS Absolute 6.0 1.6 - 8.3 [facility] Neutrophil 10e9/L [facility] LABS Absolute 0.7 (L) 0.8 - 5.3 [facility] Lymphocytes 10e9/L [facility] LABS Absolute 0.4 0.0 - 1.3 [facility] Monocytes 10e9/L [facility] LABS Absolute 0.0 0.0 - 0.7 [facility] Eosinophils 10e9/L [facility] LABS Absolute 0.0 0.0 - 0.2 [facility] Basophils 10e9/L [facility] LABS Abs Immature 0.0 0 - 0.4 [facility] Granulocytes 10e9/L [facility] LABS Specimen Anatomical Collection Method Collection Time Receive d Time (Source) Location / / Volume Laterality Blood specimen 10/29/2012 12:03 3 (specimen) PM CDT 12:04 PM CDT Debbi Juarez MD LAB - BLOOD ORDERABLES Performing Organization Address City/State/ZIP Code Phon e Number [phone] [place] [address] LABS documented in this encounter Visit Diagnoses Diagnosis Positive RAIMUNDO (antinuclear antibody) - Pr imary Other and unspecified nonspecific immuno logical findings Cardiac murmur Undiagnosed cardiac murmurs documented in this encounter Care Teams Sap Integration Architect Relationship Specialty Start Date End Date Edison aTm MD PCP - General Family Practice 09/21/11 07/22/[address] [id number] documented as of this encounter
--- OUTSIDE RECORDS SUMMARY | 2021-10-24 12:05 | XMS_ITS | Encounter Summary ---
:1955 Author Organization [facility] Address [address] [place] [address] Care Team Providers Name Role Phone Edison Tam MD Primary Care Provider Reason for Visit Reason Onset Date Comments Refill Request 09/12/2012 levothyroxine Encounter Details Date Type Department Care Team Description 09/12/2012 Refill [facility], Primary Edison Tam Refill Request Care Center MD [facility] (levothyroxine) 3rd Floor, Clinic 3A [id number] [place] [address] [place] [address] Social History Tobacco Use Types [...] Yossi's thyroiditis - Primary Chronic lymphocytic thyroiditis documented in this encounter Care Teams Vocational Training Teacher Relationship Specialty Start Date End Date Edison Tam MD PCP - General Family Practice 09/21/11 07/22/[address] [address] documented as of this encounter
--- OUTSIDE RECORDS SUMMARY | 2021-10-24 12:05 | XMS_ITS | Encounter Summary ---
:1955 Author Organization [place] Address [address] [place] [address] Care Team Providers Name Role Phone Edison Tam MD Primary Care Provider Reason for Visit Reason Onset Date Comments Pre Visit Planning - Done 10/22/2012 Encounter Details Date Type Department Care Team Description 10/22/2012 Telephone [facility] Adult Rheumatolo gy Debbi Juarez, Pre Visit Planning - 2nd Floor, Clinic 2A Done Luke [address] [place] [id number] [phone] Social History Tobacco Use Types Packs/Day Years Used Date Former Smoker 1 18 Smokeless Tobacco: Former User Q uit: 09/20/1991 Alcohol Use Standard Drinks/Week Comments No 0 (1 standard drink = 0.6 oz pure alcoho l) Sex Assigned at Date Recorded Not on file documented as of this encounter Miscellaneous Notes Telephone Encounter - Liset Strauss CMA - 10/22/2012 1:55 PM CDT Left message for patient with time and date of upcoming appointment. Instructed patient to bring updated list of medications, supplements and vaccines. Asked patient to arrive 15-20 minutes prior to appointment time for check-in and vitals. Liset Strauss CMA documented in this encounter Plan of Treatment Not on filedocumented as of this encounter Visit Diagnoses Not on filedocumented in this encounter Care Teams Tax Revenue Officer Relationship Specialty Start Date End Date Edison Tam MD PCP - General Family Practice 09/21/11 07/22/14 909 [facility] [address] [place] [address] documented as of this encounter
--- OUTSIDE RECORDS SUMMARY | 2021-10-24 12:05 | XMS_ITS | Encounter Summary ---
:1955 Author Organization [place] Address [address] [place] [address] Care Team Providers Name Role Phone Edison Tam MD Primary Care Provider Reason for Visit Reason Onset Date Comments Patient Request 11/11/2012 referral for SI inje ctions Encounter Details Date Type Department Care Team Description 11/11/2012 Telephone [facility], Primary Edison Tam Patient Request Care Center MD Marcia (referral for SI 3rd Floor, Clinic 3A 909 [facility] SE injections) Luke [id number] [place] [address] [place], [place] (Work) [address] [phone] Social History Tobacco Use Types Packs/Day Years Used Date Former Smoker 1 18 Smokeless Tobacco: Former User Q uit: 09/20/1991 Alcohol Use Standard Drinks/Week Comments No 0 (1 standard drink = 0.6 oz pure alcoho l) Sex Assigned at Date Recorded Not on file documented as of this encounter Miscellaneous Notes Telephone Encounter - Joseph Hernandez RN - 11/11/2012 10:17 AM CDT I spoke with switchboard operator receptionist from [facility] and she said they can do injection. Left message on voicemail requesting call back. Telephone Encounter - Joseph Hernandez RN - 11/11/2012 10:05 AM CDT Message copied by JOSEPH HERNANDEZ on SatNov 11, 2012 10:05 AM ------ Message from: LEXUS THOMAS Created: SatNov 11, 2012 8:20 AM Regarding: pt referral for SI Joint injections- call pt Contact: Pt would like to be referred to someone for SI Joint injections (pt does have referral for [facility] put in by Dr Juarez) Pls call pt with info [phone] Thanks SW documented in this encounter Plan of Treatment Not on filedocumented as of this encounter Visit Diagnoses Diagnosis Sacro-iliac pain - Primary Disorders of sacrum documented in this encounter Care Teams Medical Consultant Relationship Specialty Start Date End Date Edison Tam MD PCP - General Family Practice 09/21/11 07/22/14 909 [facility] 4 [place] [address] documented as of this encounter
--- OUTSIDE RECORDS SUMMARY | 2021-10-24 12:05 | XMS_ITS | Encounter Summary ---
:1955 Author Organization [facility] Address [address] [place] [address] Care Team Providers Name Role Phone Edison Tam MD Primary Care Provider Reason for Visit Reason Comments RECHECK Follow up Encounter Details Date Type Department Care Team Description 11/05/2012 Office Visit Medicine GI - 1E Charan Salazar MD Inflammatory bowel [address] disease (Crohn's Building [place], [place] disease) (H) (Primary 1st Floor, Clinic 1E [address] Dx) [address] [place] [address] SE (Work) [place] [address] Social History Tobacco Use [...] Sign Reading Time Taken Comments Blood Pressure 98/59 11/05/2012 3:00 PM CDT Pulse 82 11/05/2012 3:00 PM CDT Temperature 37.1 ??C (98.7 ??F) 11/05/2012 3:00 PM CDT Respiratory Rate - - Oxygen Saturation 97% 11/05/2012 3:00 PM CDT Inhaled Oxygen Concentration - - Weight 52.1 kg (114 lb 14.4 oz) 11/05/2012 3:00 PM CDT Height 157.5 cm (5' 2) 11/05/2012 3:00 PM CDT Body Mass Index 21.02 11/05/2012 3:00 PM CDT documented in this encounter Patient Instructions Patient InstructionsCharan Salazar MD - 11/05/2012 3:23 PM CDT I've included a brief summary of our discussion and care plan from today's visit below. Please review this information with your primary care provider. 1. Recommend moving forward with methotrexate (MTX) 25mg SQ injections weekly as we discussed today,would start this in 1-2 weeks once your current cold has completely resolved. - You will also need to be on daily folic acid supplementation while on MTX, make sure not to miss any doses of this to limit the side effects. - Recommend routine monitoring labs in 1 week, 4 weeks, and then every 3 months thereafter. 2. Will see if MTX can allow us to achieve one or more of the following goals: - gradual weaning off steroid dependence over the next 1-2 years. - healing of current known chronic multi-site fistulas. - prevention of further fistula formation or progression. 3. Return to GI Clinic with me in 2-3 months to review your progress, sooner if symptomatic. My clinic staff will be in contact with you to arrange a date/time for this. It was a pleasure seeing you in clinic today - please be in touch if there are any further questionsthat arise following today's visit. During business hours, you may reach my Photographic Printer at . For urgent/emergent questions after business hours, you may reach the on-call GI Fellowby contacting the [facility] head operator sulfide at . Any benign/non-urgent test results are usually communicated via letter or Intelligent Mobile Supporthart message within 1-2weeks after completion. Urgent results (those that require a change in the previously-discussed careplan) are usually communicated via a phone call once available from our clinic staff to discuss the results and the next steps in your evaluation. I recommend signing up for [employer] access if you have not already done [...] about your healthcare. Sincerely, Charan Salazar MD Mobility Architect Manager [facility] - Department of Medicine Division of Gastroenterology documented in this encounter Progress Notes Charan Salazar MD - 11/10/2012 3:27 PM CDT GI CLINIC VISIT CC/REFERRING MD: Edison Tam REASON FOR CONSULTATION: Crohn's disease HPI: 56 year old female w/ h/o complicated fistulizing [...] presenting for f/u Crohn's disease. Doingwell overall, +occ intermittent SI jt pain. Denies any N/V/F/C/DONNELLY or other const/syst/cardiopulmonary sxs, no BRBPR/melena/urinary changes, no unintentional wt loss or appetite/satiety changes. No other bowel/bladder habit changes, no dysphagia/odynophagia. No jaundice/icterus/pruritus, no acholic stools/steatorrhea, no oral ulcer/rash/eye sxs noted. Discussed restarting MTX + folic acid supplementation at length today for the following goals: preventing further progression of known fistulas, potentially allow for healing of known fistulas, progressive weaning of steroid dependence. Discussed the risks/benefits/alternatives of IM/biologic therapy at length w/ pt today, including: v/b/f infection, malignancy/lymphoma/HSTCL, short-term/long-term medication side effects, etc. ROS: 10pt ROS performed and otherwise negative. PERTINENT PAST MEDICAL/SURGICAL HISTORY: As noted above. PERTINENT MEDICATIONS: - prednisone 10mg PO QDAY Medications reviewed with patient today, see Medication List/Assessment for details. No other NSAID/anticoagulation reported by patient. No other OTC/herbal/supplements reported by patient. SOCIAL HISTORY: Tobacco: none. PHYSICAL EXAMINATION: Vitals reviewed, AFVSS Wt 114# today (decr since last visit) Gen: aaox3, cooperative, pleasant, not dyspneic/diaphoretic, nad HEENT: ncat, neck supple, no clad, normal op w/o ulcer/exudate, anicteric, mmm Resp/CV unremarkable Abd: +nabs, soft, nt, nd, no peritoneal s/s noted Ext: no c/c/e Skin: warm, perfused, no jaundice Neuro: grossly intact, no asterixis noted PERTINENT STUDIES: None today ASSESSMENT/PLAN: 1. Complex chronic fistulizing ileocolonic + perianal Crohn's disease, chronic steroid dependence onno backbone maintenance therapy currently - will move forward with MTX in hopes of current/future disease control and potential for steroid weaning Recommend starting MTX 25mg SQ Qwk + folic acid 2mg PO QDAY, continue prednisone as ordered for now (would not expect to begin weaning until we've given MTX at least 3-4 months to establish its effect,will likely require slow weaning over the next 1-2yrs given chronicity of use). Recommend routine lab monitoring studies while on MTX therapy, will continue to monitor expectantly for now. 2. Colorectal Cancer Screening Incomplete bowel preparation noted on procedure 6/18/13, will need to readdress following initiationof directed Crohn's treatment. RTC 2-3 months, sooner if symptomatic. Thank you for this consultation. It was a pleasure to participate in the care of this patient; please contact us with any further questions. A total of 25 minutes was spent with this patient, 50% of which was counseling regarding the above delineated issues. Charan Salazar MD Mobility Architect Manager [facility] - Department of Medicine Division of Gastroenterology documented in this encounter Nursing Notes 11/05/2012 2:40 PM CDT >> Roxy Lipscomb MA Wed Nov 05, 2012 3:02 PM Patient presents with: RECHECK - Follow up 11/05/12 1500 BP: 98/59 Pulse: 82 Temp: 98.7 ??F (37.1 ??C) TempSrc: Oral Height: 1.575 m (5' 2) Weight: 52.118 kg (114 lb 14.4 oz) SpO2: 97% Body mass index is 21.02 kg/(m^2). Roxy Burch documented in this encounter Plan of Treatment Not on filedocumented as of this encounter Visit Diagnoses Diagnosis Inflammatory bowel disease (Crohn's dise ase) (H) - Primary Regional enteritis of unspecified site documented in this encounter Care Teams Assistant Professor Of Radiology Relationship Specialty Start Date End Date Edison Tam MD PCP - General Family Practice 09/21/11 07/22/[address] [id number] documented as of this encounter
--- OUTSIDE RECORDS SUMMARY | 2021-10-24 12:05 | XMS_ITS | Encounter Summary ---
:1955 Author Organization [facility] Address [address] [place] [address] Care Team Providers Name Role Phone Edison Tam MD Primary Care Provider Reason for Visit Reason Onset Date Comments Pt. Information/instruction 08/27/2012 MRI Encounter Details Date Type Department Care Team Description 08/27/2012 Telephone [facility], Primary Heather Owens, Pt. Care Center Information/instructio 3rd Floor, Clinic 3A [address] [facility] n (MRI ) [facility] [id number] [place] [address] [place] [address] Social History Tobacco Use Types Packs/Day Years Used Date Former Smoker 1 18 Smokeless Tobacco: Former User Q uit: 09/20/1991 Alcohol Use Standard Drinks/Week Comments No 0 (1 standard drink = 0.6 oz pure alcoho l) Sex Assigned at Date Recorded Not on file documented as of this encounter Miscellaneous Notes Telephone Encounter - Dee Cancino - 09/02/2012 10:02 AM CDT Informed pt of recommendations per Dr. Owens. Pt verbalized understanding and would like to see her PCP to discuss her sxs. Pt took first available. Dee MEADE Telephone Encounter - Heather Owens MD - 08/29/2012 3:12 PM CDT I would hold off on the MRI. Her neurologic exam was okay when I saw her. I would wait about 6 weeksand see how she does clinically, as most people in her situation improve with time. As we discussed,she should let us know (I would prefer another office visit) if she develops weakness, escalating pain, escalating numbness/tingling, new bowel or bladder problems. She could see her primary care provider if she is uncomfortable with my assessment. Please return her call. SB Telephone Encounter - Adriana Franklin RN - 08/27/2012 2:39 PM CDT Maria E called in, states that she is interested in having more imaging done, concerning her coxcyx, and is concerned that more was not done at her office visit. Advised that I would route this request to Dr. Owens for review. Patient would also like to possibly have a referral to PT depending on what the imaging shows. Nena was appreciative of information documented in this encounter Plan of Treatment Not on filedocumented as of this encounter Visit Diagnoses Not on filedocumented in this encounter Care Teams Sap Business Objects Developer Relationship Specialty Start Date End Date Edison Tam MD PCP - General Family Practice 09/21/11 07/22/14 909 [facility] 4 [place] [address] documented as of this encounter
--- OUTSIDE RECORDS SUMMARY | 2021-10-24 12:05 | XMS_ITS | Encounter Summary ---
:1955 Author Organization [place] Address [address] [place] [address] Care Team Providers Name Role Phone Edison Tam MD Primary Care Provider Reason for Visit Reason Onset Date Comments Pre Visit Planning - Done 10/02/2012 Encounter Details Date Type Department Care Team Description 10/02/2012 PRE VISIT [facility], Primary Edison Tam Pre Visit Planning - Care Center MD Marcia Done 3rd Floor, Clinic [address] [place] [id number] [place] [address] [place], [place] (Work) [address] [phone] Social History Tobacco Use Types Packs/Day Years Used Date Former Smoker 1 18 Smokeless Tobacco: Former User Q uit: 09/20/1991 Alcohol Use Standard Drinks/Week Comments No 0 (1 standard drink = 0.6 oz pure alcoho l) Sex Assigned at Date Recorded Not on file documented as of this encounter Miscellaneous Notes Telephone Encounter - Caridad Elizalde LPN - 10/02/2012 12:09 PM CDT Immunizations abstracted in via [employer] and [employer]. Caridad Elizalde LPN documented in this encounter Plan of Treatment Not on filedocumented as of this encounter Visit Diagnoses Not on filedocumented in this encounter Care Teams Gauge Inspector Relationship Specialty Start Date End Date Edison Tam MD PCP - General Family Practice 09/21/11 07/22/[address] [address] documented as of this encounter
--- OUTSIDE RECORDS SUMMARY | 2021-10-24 12:05 | XMS_ITS | Encounter Summary ---
:1955 Author Organization [facility] Address [address] [place] [address] Care Team Providers Name Role Phone Edison Tam MD Primary Care Provider Reason for Referral Specialty Diagnoses / Procedures Referred By Contact Refer red To Contact Harriett Collier MD [facility] [address] [facility] [address] [place], [place] [address] Referral ID Status Reason Start Date Expiration Date Visits Requ ested Visits Authorized Reason for Visit Reason Comments Back Pain Patient here for back pain Auth/Cert - Closed Specialty Diagnoses / Procedures Referred By Contact Refer red To Contact Gastroenterology Diagnoses Regional enteritis Uu Endoscopy Procedures COLONOSCOPY COMBINED ESOPHAGOSCOPY, GASTROSCOPY, DUODENOSCOPY (EGD) [address] [place] [address] Phone: Referral ID Status Reason Start Date Expiration Date Visits Requ ested Visits Authorized [id number] Closed 1 1 Encounter Details Date Type Department Care Team Description 08/26/2012 Office Visit Physicians, Primary Heather Owens MD [address] [facility] 741 [place] [address] Lumbago (Primary Dx); Care Center Harriett Collier MD [facility] [address] [facility] [address] [place] [address] Osteoporosis, unspecified 3rd Floor, Clinic [address] [place] [phone] Social History Tobacco Use Types Packs/Day Years Used Date Former Smoker 1 18 Smokeless Tobacco: Former User Q uit: 09/20/1991 Alcohol Use Standard Drinks/Week Comments No 0 (1 standard drink = 0.6 oz pure alcoho l) Sex Assigned at Date Recorded Not on file documented as of this encounter Last Filed Vital Signs Vital Sign Reading Time Taken Comments Blood Pressure 108/68 08/26/2012 3:26 PM CDT Pulse 86 08/26/2012 3:26 PM CDT Temperature - - Respiratory Rate - - Oxygen Saturation - - Inhaled Oxygen Concentration - - Weight 52.4 kg (115 lb 8 oz) 08/26/2012 3:26 PM CDT Height - - Body Mass Index 21.13 08/13/2012 9:48 AM CDT documented in this encounter Patient Instructions Patient InstructionsMakeda Parker LPN - 08/26/2012 3:25 PM CDT Primary Care Center Medication Refill Request Information: * Please contact your pharmacy regarding ANY request for medication refills. [facility] Prescription Fax = [phone] * Please allow 3 business days for [...] the results and signed off on them. Endocrine/ Rheumatology [phone] (6th Floor [address], [address]) documented in this encounter Progress Notes Heather Owens MD - 09/11/2012 11:27 PM CDT Attending: I discussed the patient's case with the resident, verified the history with the patient and examinedthe patient. I agree with the findings and the plan of care as documented in the resident's note. Additional comments: None. Heather Owens M.D. Internal Medicine pager [phone] Harriett Conklin MD - 08/26/2012 4:07 PM CDT Internal Medicine Resident Clinic Visit Chief Complaint: Back Pain Information obtained from:Patient Subjective: HPI: This is 56 year old year old female with history of chron's disease on chronic prednisone and hx of osteoporosis who is here for back pain. The patient states that she was carrying her TV in a an awkward position and heard a pop. Since then, she has been feeling pain on her back and very stiff. The sometimes radiate toward her bilateral thighs. She also has been experiencing paresthesia and numbness on her right 3rd to 5th toes. She also has a localized pain on her lower back. Pain is also worse when she is walking and when she is sitting down. She does not have any weakness on her legs nor urinary of stool incontinence. No fevers or chills. Has been using tylenol as needed for pain. Has gotten fentanyl IV in the last hour for colonoscopy and therefore her pain is better. The patient's primary care physician is An[facility]. Allergies as of 08/26/2012 - reviewed 08/26/2012 Allergen Reaction Noted ??? Humira Rash 01/03/2012 ??? Ibuprofen sodium GI Disturbance 02/04/2012 ??? Loratadine Other (See Comments) 08/13/2012 ??? Lyrica Other (See Comments) 03/27/2012 ??? No clinical screening - see comments 02/04/2012 ??? Remicade (infliximab injection) 01/03/2012 ??? Penicillin g Rash 09/20/2011 ??? Sulfa drugs Fatigue 12/03/2011 ??? Tramadol Itching and Rash 09/20/2011 Outpatient Prescriptions Marked as Taking for the 08/26/12 encounter (Office Visit) with Harriett Conklin MD: methocarbamol (ROBAXIN) 750 MG tablet Take 1 tablet by mouth 2 times daily as needed. Disp: 60 tablet Rfl: 0 ALPRAZolam (XANAX) 0.5 MG tablet Take 0.5 mg by mouth daily. Disp: Rfl: vitamin D (ERGOCALCIFEROL) 01678 UNIT capsule Take 50,000 Units by mouth. 2 times a week. Disp: Rfl: calcium carbonate (TUMS) 500 MG chewable tablet Take 1 chew tab by mouth as needed. Disp: Rfl: predniSONE (DELTASONE) 5 MG tablet Take 2 tablets by mouth daily. Disp: 60 tablet Rfl: 6 cyanocobalamin 1000 MCG/ML injection Inject 1 mL as directed every 30 days. Disp: 1 mL Rfl: 11 ORDER FOR DME Injection Supplies for Vitamin B12: 3cc syringes w/ 27 gauge needles, 1 inch length Disp: 12 each Rfl: 0 rOPINIRole (REQUIP) 1 MG tablet Take 1 tablet by mouth At Bedtime. Disp: 90 tablet Rfl: 1 propranolol (INDERAL) 20 MG tablet Take 1 tablet by mouth daily. Disp: 90 tablet Rfl: 2 predniSONE (DELTASONE) 10 MG tablet Take 1 tablet by mouth daily. Disp: 90 tablet Rfl: 0 LOPERAMIDE HCL PO Take 1 tablet by mouth daily. Disp: Rfl: multivitamin (THERA-PLUS) LIQD Take 5 mLs by mouth daily. Disp: Rfl: [id number] Might-a mins spectrum once daily (Digestive Enzymes) Disp: Rfl: Carboxymethylcellulose Sodium (REFRESH TEARS OP) Apply to eye. Disp: Rfl: Potassium Chloride CR 8 MEQ CPCR Take 16 mEq by mouth daily. Disp: 60 capsule Rfl: 1 Levothyroxine Sodium 50 MCG CAPS Take 1 tablet by mouth daily. Disp: 90 capsule Rfl: 1 fluorouracil (EFUDEX) 5 % cream Apply topically to bilateral forearms and hands twice daily Disp: 40g Rfl: 0 buPROPion (WELLBUTRIN SR) 150 MG 12 hr tablet Take 150 mg by mouth 2 times daily. AM and 1 PM Disp: Rfl: cyanocobalamin 1000 MCG/ML injection Inject 1 mL into the muscle every 30 days. Disp: Rfl: guaiFENesin (MUCINEX) 600 MG 12 hr tablet Take 600 mg by mouth 2 times daily as needed. Disp: Rfl: Menthol, Topical Analgesic, (ICY HOT EX) Externally apply topically. Patient uses Gel, Cream and Patch PRN Disp: Rfl: Calcium Citrate-Vitamin D (CITRACAL + D PO) Take 1 tablet by mouth 2 times daily. Disp: Rfl: Review of Systems Please see HPI. Also, no appetite loss, weight loss, history of cancer, rashes, abdominal pain, flank pain, dysuria, hematuria, limb swelling or bruising Past Medical History Diagnosis Date ??? Crohn's [...] surgery 2009 L4-L5 laminectomy ??? Back surgery 2011 L5 ??? Colonoscopy ??? Release carpal tunnel right Family History Problem Relation Age of Onset [...] Active: Not Currently -- Male partner(s) twice Other Topics Concern ??? None Social History Narrative Moved to [place] from [facility]. She is living in an apartment accessible. Objective: BP 108/68 Pulse 86 Wt 52.39 kg (115 lb 8 oz) ? No Physical Exam Constitutional: Appears well-developed and well-nourished. Active. Cardiovascular: RRR, S1, S2 normal. No m/g/r Pulmonary/Chest: CTAB. No wheezing or rales Abdominal: +BS. Nontender to palpation. No organomegaly present. Neurological: Alert. Muscle strength 5/5 of the lower extremities. Decreased sensation of the right 3rd to 5th toes. Reflexes are bilateral symmetric. Back: pain in the middle lower back above the gluteal cleft. Some tenderness in the paraspinal muscles in the lower back Extremities: No clubbing, cyanosis or inflammation Skin: normal texture, color In House Labs: Assessment/Treatment Plan: Standard differential diagnosis and treatment options considered and/or discussed. 724.2 Lumbago with musculoskeletal strain and paresthesia of the R 3rd to 5th toes (favor this) vs flare of sacroiliitis vs. Spine injury with coccyx fracture Plan: - Treat with methocarbamol (ROBAXIN) 750 MG tablet PO BID as needed for pain and MSK stiffness - Can continue to use tylenol prn for pain - We discussed that if she has any weakness on the legs, urinary or stool incontinence, she is to call us. We will consider MRI or other imaging to further evaluate her back pain. - if pain is not controlled, can increase robaxin to 3 times a day prn 733.00 Osteoporosis, on chronic prednisone. Her localized pain on the lower back may indicate possible coccyx fracture. Dexa scan in 2011 showed showed osteoporosis. She has stopped taking requip. ENDOCRINOLOGY ADULT REFERRAL for management of osteoporosis. RToC prn The patient is discussed with Dr. Heather Owens who agrees with the assessment and plan. documented in this encounter Nursing Notes 08/26/2012 3:30 PM CDT >> Makeda Parker LPN katya Aug 26, 2012 3:27 PM Patient presents with: Back Pain - Patient here for back pain Makeda Parker LPN at 3:26 PM on 08/26/2012. documented in this encounter Plan of Treatment Scheduled Referrals Name Type Priority Associated Diagnoses Order S [facility] ENDOCRINOLOGY ADULT Referral Routine Osteoporosis, Ordered : 08/26/2012 REFERRAL unspecified documented as of this encounter Visit Diagnoses Diagnosis Lumbago - Primary Osteoporosis, unspecified documented in this encounter Care Teams Merchandising Execution Manager Relationship Specialty Start Date End Date Edison Tam MD PCP - General Family Practice 09/21/11 07/22/14 909 [facility] 4 [place] [address] documented as of this encounter
--- OUTSIDE RECORDS SUMMARY | 2021-10-24 12:05 | XMS_ITS | Encounter Summary ---
:1955 Author Organization [facility] Address [address] [place] [address] Care Team Providers Name Role Phone Edison Tam MD Primary Care Provider Reason for Visit Reason Onset Date Comments Refill Request 10/02/2012 ropinirole-denied Encounter Details Date Type Department Care Team Description 10/02/2012 Refill [facility], Primary Edison Tam Refill Request Care Center MD [facility]cia (ropinirole-denied) 3rd Floor, Clinic [address] [place] [address] [place] [address] Social History Tobacco Use Types Packs/Day Years Used Date Former Smoker 1 18 Smokeless Tobacco: Former User Q uit: 09/20/1991 Alcohol Use Standard Drinks/Week Comments No 0 (1 standard drink = 0.6 oz pure alcoho l) Sex Assigned at Date Recorded Not on file documented as of this encounter Miscellaneous Notes Telephone Encounter - Edison Tam MD - 10/08/2012 9:17 AM CDT She no showed for 10/06/12 appt scheduled for 12:50 pm. No further refill without appointment. Thank you, Edison Tam Telephone Encounter - Edison Tam MD - 10/04/2012 8:29 AM CDT Reviewed documentation. The first time I found refill request was today 10/04/12. I appreciate Dr Owens refilling when I was out of the office. I will review medication with Maria E at appointment. Thank you, Edison Tam Telephone Encounter - Jenae Hernandez RN - 10/03/2012 1:41 PM CDT Called patient with update that medication was called into pharmacy today. Discussed with her how she is taking the medication. She said she takes 1 tablet at night and sometimes 1/2 tablet during day for restless legs. She said she was using some of her old stock as well. I am not taking more than prescribed..I actually take less than allowed. She is upset that she had to wait so long for refill. Her request was sent 09/26. Offered apology. Explained our refill policy and apologized that it took me longer than standard. She seemed receptive. She has appointment with Dr. Tam on Saturday. Telephone Encounter - Jenae Hernanedz RN - 10/03/2012 11:21 AM CDT last fill 06/05/12 with 90:1. (She can take 1.5 tabs, so could be out 10/03/12, today). Telephone Encounter - Jenae Hernandez RN - 10/03/2012 11:16 AM CDT Pt is upset her Requip hasn't been refilled when she put in the request last week. Pt says she is out of medication and this service is unacceptable. Pt wants her med's refilled sebastien. Pt called regarding her rOPINIRole prescription. Pt said last night was torture as she was out of the prescription. Pt said she didn't sleep at all and needs the prescription as soon as possible for the weekend. Requested high priority message- Pt called earlier as well. Please call pt at [phone] Thanks! Ida Telephone Encounter - Jenae Hernandez RN - 10/02/2012 5:19 PM CDT Last office visit 09/08/12, last fill 06/05/12 with 90:1. documented in this encounter Plan of Treatment Not on filedocumented as of this encounter Visit Diagnoses Diagnosis Restless leg - Primary Restless legs syndrome (RLS) documented in this encounter Care Teams Supervisor Special Education Relationship Specialty Start Date End Date Edison Tam MD PCP - General Family Practice 09/21/11 07/22/[address] [address] documented as of this encounter
--- OUTSIDE RECORDS SUMMARY | 2021-10-24 12:05 | XMS_ITS | Encounter Summary ---
:1955 Author Organization [facility] Address [address] [place] [address] Care Team Providers Name Role Phone Edison Tam MD Primary Care Provider Reason for Visit Reason Onset Date Comments Other 08/26/2012 Encounter Details Date Type Department Care Team Description 08/26/2012 Telephone Medicine GI - 1E Charan Salazar MD Other [address] [address] 1st Floor, Clinic [address] [place] [address] [place] [phone] Social History Tobacco Use Types Packs/Day Years Used Date Former Smoker 1 18 Smokeless Tobacco: Former User Q uit: 09/20/1991 Alcohol Use Standard Drinks/Week Comments No 0 (1 standard drink = 0.6 oz pure alcoho l) Sex Assigned at Date Recorded Not on file documented as of this encounter Miscellaneous Notes Telephone Encounter - Lorrie Fox JENNIFER - 08/26/2012 8:51 AM CDT Voicemail from pt. She thinks she may have a slipped disc and has an appt scheduled at 3:30. [address] Salazar to be aware of it because she is scheduled for colonoscopy today at 1:00 and has concerns about the Benadryl she will be given. She also mentioned she will be taking Tylenol. Left message for pt that she will need to call the Endoscopy dept to discuss these concerns. documented in this encounter Plan of Treatment Not on filedocumented as of this encounter Visit Diagnoses Not on filedocumented in this encounter Care Teams Folder Stitcher Operator Relationship Specialty Start Date End Date Edison Tam MD PCP - General Family Practice 09/21/11 07/22/14 909 [facility] 4 [place] [address] documented as of this encounter
--- OUTSIDE RECORDS SUMMARY | 2021-10-24 12:05 | XMS_ITS | Encounter Summary ---
:1955 Author Organization [facility] Address [address] [place] [address] Care Team Providers Name Role Phone Edison Tam MD Primary Care Provider Reason for Visit Reason Onset Date Comments Call Back 09/03/2012 Encounter Details Date Type Department Care Team Description 09/03/2012 Telephone Medicine GI - 1E Charan Salazar MD Call Back [address] [address] [facility] Floor, [address] [place] [address] [place] [phone] Social History Tobacco Use Types Packs/Day Years Used Date Former Smoker 1 18 Smokeless Tobacco: Former User Q uit: 09/20/1991 Alcohol Use Standard Drinks/Week Comments No 0 (1 standard drink = 0.6 oz pure alcoho l) Sex Assigned at Date Recorded Not on file documented as of this encounter Miscellaneous Notes Telephone Encounter - Rebekah Mason RN - 09/03/2012 4:46 PM CDT Left patient a VM in regard her f/u with . Call back number left in message. Will continueto follow. documented in this encounter Plan of Treatment Not on filedocumented as of this encounter Visit Diagnoses Not on filedocumented in this encounter Care Teams Billing Services Manager Relationship Specialty Start Date End Date Edison Tam MD PCP - General Family Practice 09/21/11 07/22/14 909 [facility] 4 [place] [address] documented as of this encounter
--- OUTSIDE RECORDS SUMMARY | 2021-10-24 12:05 | XMS_ITS | Encounter Summary ---
:1955 Author Organization [place] Address [address] [place] [address] Care Team Providers Name Role Phone Edison Tam MD Primary Care Provider Reason for Visit Reason Onset Date Comments Refill Request 10/09/2012 K-cl Encounter Details Date Type Department Care Team Description 10/09/2012 Refill [facility], Primary Edison Tam, Refill Request (K-cl) Care Center 3rd Floor, Clinic [address] [place] [address] [place] [address] Social History Tobacco Use Types Packs/Day Years Used Date Former Smoker 1 18 Smokeless Tobacco: Former User Q uit: 09/20/1991 Alcohol Use Standard Drinks/Week Comments No 0 (1 standard drink = 0.6 oz pure alcoho l) Sex Assigned at Date Recorded Not on file documented as of this encounter Miscellaneous Notes Telephone Encounter - Edison Tam MD - 10/09/2012 3:19 PM CDT Needs MD appointment. Will fill one month to allow for appt. She no showed for appt 10/06/12. Thank you, dEison Tam Telephone Encounter - Jenae Hernandez RN - 10/09/2012 3:17 PM CDT Last office visit 06/05/12, last Rx 04/07/12. documented in this encounter Plan of Treatment Not on filedocumented as of this encounter Visit Diagnoses Diagnosis Hypopotassemia - Primary documented in this encounter Care Teams Maintenance Repairer Relationship Specialty Start Date End Date Edison Tam MD PCP - General Family Practice 09/21/11 07/22/[address] [address] documented as of this encounter
--- OUTSIDE RECORDS SUMMARY | 2021-10-24 12:05 | XMS_ITS | Encounter Summary ---
:1955 Author Organization [facility] Address [address] [place] [address] Care Team Providers Name Role Phone Edison Tam MD Primary Care Provider Reason for Visit Reason Comments Back Pain Pt states she is having back pain for x 1 month. Encounter Details Date Type Department Care Team Description 09/08/2012 Office Visit [facility] Primary Heather Owens, Lumbago (Primary Dx); Care Center Numbness or tingling 3rd Floor, Clinic [address]A [address] [facility] [address] [place] [address] [place], [place] (Work) [address] [phone] Social History Tobacco Use Types Packs/Day Years Used Date Former Smoker 1 18 Smokeless Tobacco: Former User Q uit: 09/20/1991 Alcohol Use Standard Drinks/Week Comments No 0 (1 standard drink = 0.6 oz pure alcoho l) Sex Assigned at Date Recorded Not on file documented as of this encounter Last Filed Vital Signs Vital Sign Reading Time Taken Comments Blood Pressure 103/61 09/08/2012 1:24 PM CDT Pulse 89 09/08/2012 1:24 PM CDT Temperature - - Respiratory Rate - - Oxygen Saturation - - Inhaled Oxygen Concentration - - Weight 51.9 kg (114 lb 6.4 oz) 09/08/2012 1:24 PM CDT Height 157.5 cm (5' 2) 09/08/2012 1:24 PM CDT Body Mass Index 20.92 09/08/2012 1:24 PM CDT documented in this encounter Patient Instructions Patient InstructionsForDee deluna - 09/08/2012 1:24 PM CDT Primary Care Center Medication Refill Request Information: * Please contact your pharmacy regarding ANY request for medication refills. [facility] Prescription Fax = [phone] * Please allow 3 business days for [...] them. documented in this encounter Progress Notes Heather Owens MD - 09/08/2012 1:32 PM CDT CC: Leg/foot tingling HPI: 08/26/12 Progress note highlights by Resident MD Dr. Collier and myself: History: This is 56 year old year old [...] have any weakness on her legs nor urinaryof stool incontinence. No fevers or chills. Has been using tylenol as needed for pain. Has gotten fentanyl IV in the last hour for colonoscopy and therefore her pain is better. Standard differential diagnosis and treatment options considered and/or discussed. 724.2 Lumbago with musculoskeletal strain and paresthesia of the R 3rd to 5th toes (favor this) vs flare of sacroiliitis vs. Spine injury with coccyx fracture Plan at that time: - Treat with methocarbamol (ROBAXIN) 750 MG [...] ENDOCRINOLOGY ADULT REFERRAL for management of osteoporosis. Today I reviewed her previous scan results with her: 12/03/11 CT- L spine results: Impression: 1. No acute fracture or subluxation. 2. Multilevel degenerative changes most prominent at the L2-3 and L4-5 level with mild left neural foraminal narrowing at the L2-3 level. 3. Bilateral pars defect of L5. 12/03/11 CT Thoracic spine results: Impression: No evidence of fractures or subluxations in the thoracic spine . 11/06/11 Dexa results: Conclusions: Based on the most negative and valid T-score of -2.8 at the level of the right femoral neck, this patient has osteoporosis Today's visit: As of last visit had been okay, until Today woke up with numbness/tingling in her whole right foot No back pain, no leg pain Whole right foot numb, tingly, right lateral leg also with similar symptoms Taking Tylenol ES two cap's twice a day which help somewhat Robaxin once at night, helpful History of Laminectomy L4-L5 x 2, last one was approx. 2008, first one in 2006 Symptoms at that time were low back pain, difficulty sitting down, standing up, despite PT At that time also had lateral leg pain, sharp, like someone was putting a nail into her first two toes bilaterally States lost bowel control at one point back then No weakness at that time Surgery was successful per her report. Today, no fevers, chills, sweats, bladder or bowel dysfunction, weakness Patient Active Problem List Diagnosis ??? Yossi's [...] disorder ??? Inflammatory bowel disease (Crohn's disease) Past Surgical History Procedure Date ??? Appendectomy [...] MULTIPLE;; Surgeon: Charan Salazar MD; Location: GI Outpatient Prescriptions Marked as Taking for the 09/08/12 encounter (Office Visit) with Heather Owens MD: buPROPion (WELLBUTRIN SR) 150 MG 12 hr tablet Take 150 mg by mouth daily. Disp: Rfl: UNKNOWN TO PATIENT 1 capsule daily. Pt states she is taking a antidepressant that starts with a v.Possibly Venlafaxine. Disp: Rfl: methocarbamol (ROBAXIN) 750 MG tablet Take 1 tablet by mouth 2 times daily as needed. Disp: 60 tablet Rfl: 0 ALPRAZolam (XANAX) 0.5 MG tablet Take 0.5 mg by mouth daily. Disp: Rfl: vitamin D (ERGOCALCIFEROL) 80074 UNIT capsule Take 50,000 Units by mouth. 2 times a week. Disp: Rfl: calcium carbonate (TUMS) 500 MG chewable tablet Take 1 chew tab by mouth as needed. Disp: Rfl: ORDER FOR DME Injection Supplies for Vitamin [...] mouth daily. Disp: 90 tablet Rfl: 0 multivitamin (THERA-PLUS) LIQD Take 5 mLs by mouth daily. Disp: Rfl: [id number] Might-a mins spectrum once daily (Digestive Enzymes) [...] hands twice daily Disp: 40g Rfl: 0 cyanocobalamin 1000 MCG/ML injection Inject 1 mL [...] by mouth 2 times daily. Disp: Rfl: Allergies Allergen Reactions ??? Humira Rash ??? [...] Profound lethargy ??? Tramadol Itching and Rash BP 103/61 Pulse 89 Ht 1.575 m (5' 2) Wt 51.891 kg (114 lb 6.4 oz) BMI 20.92 kg/m2 ? No Gen: Concerned affect, no distress Back: FROM. Touches toes, side bends. No palpable T nor L spine pain except for over coccyx. No paraspinal mm tenderness/spasm. Mild tenderness over SI joints. No sciatic notch nor trochanter tenderness. Neuro: Gait normal. Can walk on toes and heels. Individual mm strength with encouragement is intact including hip flex, knee and foot and great toe ext/flex. Light touch sensation intact. Reflexes 2+ patella, 1+ ankle jerks bilaterally. DP pulses intact Maria E was seen today for back pain. Diagnoses and associated orders for this visit: Lumbago (resolved), numbness/tingling lateral thigh and whole foot on the right (progressed). Plan: CT L spine, compare to Nov 2011. Patient reports no need for pain medication. I advised her to go to the ER if her symptoms escalate. Total time spent 25 minutes. More than 50% of the time spent with Ms. Coley on counseling / coordinating her care Heather Owens M.D. Internal Medicine pager [phone] documented in this encounter Nursing Notes 09/08/2012 1:05 PM CDT >> HALINA KENNEY Mon Sep 08, 2012 1:28 PM Patient presents with: Back Pain - Pt states she is having back pain for x 1 month. Dee MEADE documented in this encounter Plan of Treatment Pending Results Name Type Priority Associated Diagnoses Date/Ti me CT Lumbar Spine w Imaging Routine Lumbago 09/12/2012 11:36 AM CDT Contrast documented as of this encounter Procedures Procedure Name Priority Date/Time Associated Diagnosis Comme nts CT LUMBAR SPINE W/O 09/12/2012 11:35 AM R esults for this CONTRAST CDT procedure are i n the results section. documented in this encounter Results CT Lumbar Spine w/o Contrast (09/12/2012 11:35 AM CDT) Anatomical Region Laterality Modality Spine, SUBRAD CT MSK, P CT SPINE Compu jose luis Tomography Specimen (Source) Anatomical Collection Method Collection Time Re ceived Time Location / / Volume Laterality 09/12/2012 11:35 AM CDT Impressions 09/12/2012 2:00 PM CDT Impression: 1. Changes from decompressive laminectom ies at L3-L4. 2. 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 3. Mild to moderate spinal canal narrowi ng at L2-3, slightly worsened since 12/03/2011. 4. Multilevel neuroforaminal narrowing, most pronounced at L3-4, where it is moderate to severe on the le ft and moderate on the right. Also severe degenerative disc disease at L4-5 with essentially complete loss of disc height and moderat e bilateral neural foraminal narrowing. ELDER LEO MD Narrative 09/12/2012 2:[address] Lum[address] spine CT without contrast History: Lumbago,Patient with persistent right leg numbness, tingling and LBP. Comparison: 12/03/2011. Findings: Trace anterolisthesis of L5 re lative to S1, unchanged. Also trace retrolisthesis of L3 relative to L 4, unchanged. Severe loss of disc height at L4-5 with associated reac tive endplate change including sclerosis and osteophyte forma tion and cyst formation involving the opposing endplates, unchan ged. Mild loss of disc height at L2-3 and posteriorly at L3-4. No acut e fracture fracture demonstrated. Bilateral pars interarticu cathy defects at L5. Findings on a level by level basis are as follows : T12-L1: Mild posterior disc bulge withou t spinal canal or neural foraminal stenosis, unchanged. L1-L2: Circumferential disc bulge with m ild bilateral neural foraminal narrowing. No spinal canal charlette nosis. L2-L3: ??Circumferential disc bulge, asy mmetric to the left, in conjunction with ligamentum flavum thick ening results in mild to moderate spinal canal narrowing, slightl y worsened since 12/03/2011. Also mild left neural foraminal narrowin g, unchanged. Right neural foramen remains patent. L3-L4: Loss of disc height posteriorly w ith reactive endplate changes and posterior disc bulge. Status post de compressive laminectomy. No spinal canal stenosis. Moderate right an d moderate to severe left neural foraminal narrowing, unchanged. L4-L5: Severe loss of disc height with r eactive endplate changes, as described above. Status post decompressi ve laminectomy. No spinal canal stenosis. Moderate bilateral neuro foraminal narrowing, unchanged. L5-S1: Bilateral pars defects at L5, as described above. Trace anterolisthesis of L5 relative to S1. No spinal canal stenosis. No neuroforaminal stenosis. The visualized adjacent paraspinous tiss ues are grossly within normal limits. Procedure Note Elder Leo MD - 09/12/2012Format ting of this note might be different from the original. CT Lumbar spine CT without contrast History: Lumbago,Patient with persistent right leg numbness, tingling and LBP. Comparison: 12/03/2011. Findings: Trace anterolisthesis of L5 re lative to S1, unchanged. Also trace retrolisthesis of L3 relative to L 4, unchanged. Severe loss of disc height at L4-5 with associated reac tive endplate change including sclerosis and osteophyte forma tion and cyst formation involving the opposing endplates, unchan ged. Mild loss of disc height at L2-3 and posteriorly at L3-4. No acut e fracture fracture demonstrated. Bilateral pars interarticu cathy defects at L5. Findings on a level by level basis are as follows : T12-L1: Mild posterior disc bulge withou t spinal canal or neural foraminal stenosis, unchanged. L1-L2: Circumferential disc bulge with m ild bilateral neural foraminal narrowing. No spinal canal charlette nosis. L2-L3: Circumferential disc bulge, asymm etric to the left, in conjunction with ligamentum flavum thick ening results in mild to moderate spinal canal narrowing, slightl y worsened since 12/03/2011. Also mild left neural foraminal narrowin g, unchanged. Right neural foramen remains patent. L3-L4: Loss of disc height posteriorly w ith reactive endplate changes and posterior disc bulge. Status post de compressive laminectomy. No spinal canal stenosis. Moderate right an d moderate to severe left neural foraminal narrowing, unchanged. L4-L5: Severe loss of disc height with r eactive endplate changes, as described above. Status post decompressi ve laminectomy. No spinal canal stenosis. Moderate bilateral neuro foraminal narrowing, unchanged. L5-S1: Bilateral pars defects at L5, as described above. Trace anterolisthesis of L5 relative to S1. No spinal canal stenosis. No neuroforaminal stenosis. The visualized adjacent paraspinous tiss ues are grossly within normal limits. IMPRESSION Impression: 1. Changes from decompressive laminectom ies at L3-L4. 2. 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 3. Mild to moderate spinal canal narrowi ng at L2-3, slightly worsened since 12/03/2011. 4. Multilevel neuroforaminal narrowing, most pronounced at L3-4, where it is moderate to severe on the le ft and moderate on the right. Also severe degenerative disc disease at L4-5 with essentially complete loss of disc height and moderat e bilateral neural foraminal narrowing. ELDER LEO MD Heather Owens MD IMG CT ORDERABLES documented in this encounter Visit Diagnoses Diagnosis Lumbago - Primary Numbness or tingling Disturbance of skin sensation documented in this encounter Care Teams Sales Office Assistant Relationship Specialty Start Date End Date Edison Tam MD PCP - General Family Practice 09/21/11 07/22/14 909 [facility] 4 [place] [address] documented as of this encounter
--- OUTSIDE RECORDS SUMMARY | 2021-10-24 12:05 | XMS_ITS | Encounter Summary ---
:1955 Author Organization [facility] Address [address] [place] [address] Care Team Providers Name Role Phone Edison Tam MD Primary Care Provider Reason for Visit Reason Onset Date Comments Other 08/27/2012 contacted diana lo[facility] mailed 08/27 Encounter Details Date Type Department Care Team Description 08/27/2012 Telephone Diabetes and Endocri ne Darrian Talbert, Other (contacted 6th Floor, Clinic 6A patient, letter and Luke Barahonateen [address] [facility] [address] mailed 08/27) 516 [facility] [place] [id number] [place] [address] (Wo rk) [address] [phone] Social History Tobacco Use Types Packs/Day Years [...] on filedocumented in this encounter Care Teams Microbiology Laboratory Manager Relationship Specialty Start Date End Date Edison Tam MD PCP - General Family Practice 09/21/11 07/22/14 909 [facility] 4 [place] [address] documented as of this encounter
--- OUTSIDE RECORDS SUMMARY | 2021-10-24 12:05 | XMS_ITS | Encounter Summary ---
:1955 Author Organization [facility] Address [address] [place] [address] Care Team Providers Name Role Phone Edison Tam MD Primary Care Provider Encounter Details Date Type Department Care Team Description 11/11/2012 Orders Only Medicine GI - 1E Charan Salazar MD Inflammatory bowel [address] disease (Crohn's Building [place], [place] disease) (H) (Primary 1st Floor, Clinic 1E [address] Dx) [address] [place] [address] [place], [place] (Work) [address] [phone] Social History Tobacco Use Types Packs/Day Years Used Date Former Smoker 1 18 Smokeless Tobacco: Former User Q uit: 09/20/1991 Alcohol Use Standard Drinks/Week Comments No 0 (1 standard drink = 0.6 oz pure alcoho l) Sex Assigned at Date Recorded Not on file documented as of this encounter Nursing Notes 11/11/2012 12:00 PM CDT >> NANDINI Hayes Nov 11, 2012 10:50 AM Ordered MTX 25 mg SQ injections weekly and folic acid per . 1. Recommend moving forward with methotrexate (MTX) [...] weeks, and then every 3 months thereafter. documented in this encounter Plan of Treatment Not on filedocumented as of this encounter Visit Diagnoses Diagnosis Inflammatory bowel disease (Crohn's dise ase) (H) - Primary Regional enteritis of unspecified site documented in this encounter Care Teams Tipple Oiler Relationship Specialty Start Date End Date Edison Tam MD PCP - General Family Practice 09/21/11 07/22/14 909 [facility] [place] [address] documented as of this encounter
--- OUTSIDE RECORDS SUMMARY | 2021-10-24 12:06 | XMS_ITS | Encounter Summary ---
:1955 Author Organization [facility] Address [address] [place] [address]. [place] [address] Care Team Providers Name Role Phone Edison Tam MD Primary Care Provider Encounter Details Date Type Department Care Team Description 07/10/2012 Medical Correspondence [facility] Unknown, ORDER/PRESCRIPTION Health Info Mgmt Provider [facility] [address] [place] [phone] Social History Tobacco Use Types Packs/Day Years Used Date Former Smoker 1 18 Smokeless Tobacco: Former User Q uit: 09/20/1991 Alcohol Use Standard Drinks/Week Comments No 0 (1 standard drink = 0.6 oz pure alcoho l) Sex Assigned at Date Recorded Not on file documented as of this encounter Progress Notes Unknown, Provider - 07/15/2012 10:04 AM CDT documented in this encounter Plan of Treatment Not on filedocumented as of this encounter Visit Diagnoses Not on filedocumented in this encounter Care Teams Tab Cutting Machine Operator Relationship Specialty Start Date End Date Edison Tam MD PCP - General Family Practice 09/21/11 07/22/[address] [address] documented as of this encounter
--- OUTSIDE RECORDS SUMMARY | 2021-10-24 12:06 | XMS_ITS | Encounter Summary ---
:1955 Author Organization [facility] Address [address] [place] [address] Care Team Providers Name Role Phone Edison Tam MD Primary Care Provider Reason for Visit Reason Onset Date Comments Previsit 06/23/2012 Encounter Details Date Type Department Care Team Description 06/23/2012 PRE VISIT [facility] Tyra Pittman MD Previsit 8th Floor, Clinic 8A [address] [place] [address] [phone] Social History Tobacco Use Types Packs/Day Years Used Date Former Smoker 1 18 Smokeless Tobacco: Former User Q uit: 09/20/1991 Alcohol Use Standard Drinks/Week Comments No 0 (1 standard drink = 0.6 oz pure alcoho l) Sex Assigned at Date Recorded Not on file documented as of this encounter Miscellaneous Notes Telephone Encounter - Niles Acevedo - 06/23/2012 2:45 PM CDT ENT PRE VISIT NOTE On the phone call: Date of Call: 06/23/12 Date of appointment: 07/16/12 Reason for Call (Should match scheduling appointment note): sinus problems Who made the initial call: (patient, Parent (Name of Parent), referral source) patient Who is the Referring Provider? (Name, address, phone number, location of clinic) Dr. Tam Where have you been seen for this condition? [facility] Where and what testing has been done including: None ENT related surgeries in the past: No After the phone call: Request medical records: NO -- From where: What date: Who did you speak to: Is the information already in the EMR? Yes PT states all records here no outside records documented in this encounter Plan of Treatment Not on filedocumented as of this encounter Visit Diagnoses Not on filedocumented in this encounter Care Teams Home Administrator Relationship Specialty Start Date End Date Edison Tam MD PCP - General Family Practice 09/21/11 07/22/14 909 [facility] 4 [place] [address] documented as of this encounter
--- OUTSIDE RECORDS SUMMARY | 2021-10-24 12:06 | XMS_ITS | Encounter Summary ---
:1955 Author Organization [facility] Address [address] [place] [address] Care Team Providers Name Role Phone Edison Tam MD Primary Care Provider Encounter Details Date Type Department Care Team Description 07/25/2012 Orders Only Medicine GI - 1E Charan Salazar MD Regional enteritis of [address] unspecified site Building [place], [place] (Primary Dx) 1st Floor, Clinic [address]E [address] [place] [address] [place] [address] Social History Tobacco Use Types Packs/Day Years Used Date Former Smoker 1 18 Smokeless Tobacco: Former User Q uit: 09/20/1991 Alcohol Use Standard Drinks/Week Comments No 0 (1 standard drink = 0.6 oz pure alcoho l) Sex Assigned at Date Recorded Not on file documented as of this encounter Nursing Notes 07/25/2012 12:00 PM CDT >> POWER PENA LPN Fri July 25, 2012 2:33 PM EGD/Colonoscopy ordered per inClickingHouseet message from Dr. Salazar. Will get scheduled and notify pt of plan. Maria E will need an EGD + colonoscopy w/ me in the next 2-3wks before we start her on MTX - will help me know her baseline disease activity for comparison after MTX has had a chance to work. Please arrange for these, and update her re: the plan of care documented in this encounter Plan of Treatment Not on filedocumented as of this encounter Visit Diagnoses Diagnosis Regional enteritis of unspecified site - Primary documented in this encounter Care Teams Care Trainer Relationship Specialty Start Date End Date Edison Tam MD PCP - General Family Practice 09/21/11 07/22/14 909 [facility] 4 [place] [address] documented as of this encounter
--- OUTSIDE RECORDS SUMMARY | 2021-10-24 12:06 | XMS_ITS | Encounter Summary ---
:1955 Author Organization [facility] Address [address] [place] [address] Care Team Providers Name Role Phone Edison Tam MD Primary Care Provider Reason for Visit Reason Onset Date Comments Patient Request 07/01/2012 Encounter Details Date Type Department Care Team Description 07/01/2012 Telephone Medicine GI - 1E Charan Salazar MD Patient Request Luke [address] [address] 1st Floor, [address] [place] [address] [place] [phone] Social History Tobacco Use Types Packs/Day Years Used Date Former Smoker 1 18 Smokeless Tobacco: Former User Q uit: 09/20/1991 Alcohol Use Standard Drinks/Week Comments No 0 (1 standard drink = 0.6 oz pure alcoho l) Sex Assigned at Date Recorded Not on file documented as of this encounter Miscellaneous Notes Telephone Encounter - Charan Salazar MD - 07/01/2012 3:40 PM CDT Contacted pt at home today - addressed each of her questions fully to her satisfaction, no further questions at this time. - Proteinuria/oxaluria: Explained that this is not surprising to me in light of her known fistulizing Crohn's disease, but makes obtaining an MR enterography all the more important to define the fistulas further, as well as to guide incorporation of the appropriate surgical specialties if necessary. Pt understands, will have clinic staff see if we can move MRI appt up. - WBC count: Pt concerned that the normal WBC count of 7.4 is low for her, used to seeing higher WBC counts >11 (suspect that these were largely driven by infection control related to her fistulizing disease). Reassured her that the WBC count of 7.4 is normal, but that we will continue to monitorit and her other markers of nutritional status closely in her ongoing care. - Role for TPN: Pt concerned re: her long-term nutritional needs, inquiring about whether TPN would be appropriate for her as this was suggested by her home health RN. Pt's long-term and short-term nutritional markers on recent evaluation were excellent w/ relatively well-preserved nutritional reserve, will readdress this need for further TF/TPN supplementation as luminal evaluation continues. Counseled pt that is she has any escalating danger s/s of impending complete obstruction or worsening infection, that she should come the [facility] ED immediately for evaluation. Pt assures me that this is not the case currently, but states she is aware of what to watch for and will keep us updated accordingly. RECOMMENDATIONS: - Will have GI Clinic staff see if pt's MRI enterography can be moved up, would be fine w/ [id number] PO x1 for anxiety prior to procedure (may repeat x1 if necessary). - Recommend continuing low-residue/low-fiber diet emphasizing H20 + caloric supplementation via the fortified smoothie recipe reviewed again w/ pt today; pt states that this has been quite helpful for her. - Counseled pt re: danger s/s of obstruction/infection today, will come to ED [facility] should these should occur. - Recommend f/u in GI Clinic as scheduled, may adjust f/u date based upon MRI results. Please contact us w/ any further questions. Charan Salazar MD Electrical Construction Project Manager [facility] - Department of Medicine Division of Gastroenterology documented in this encounter Plan of Treatment Not on filedocumented as of this encounter Visit Diagnoses Not on filedocumented in this encounter Care Teams Manager Managing Relationship Specialty Start Date End Date Edison Tam MD PCP - General Family Practice 09/21/11 07/22/14 408 [facility] 4 [place] [address] documented as of this encounter
--- OUTSIDE RECORDS SUMMARY | 2021-10-24 12:06 | XMS_ITS | Encounter Summary ---
:1955 Author Organization [facility] Address [address] [place] [id number] Care Team Providers Name Role Phone Edison Tam MD Primary Care Provider Reason for Visit Reason Onset Date Comments Other 07/28/2012 Encounter Details Date Type Department Care Team Description 07/28/2012 Telephone Medicine GI - 1E Charan Salazar MD Other [address] [address] [address] Floor, [facility] [address] [place] [address] [place] [phone] Social History Tobacco Use Types Packs/Day Years Used Date Former Smoker 1 18 Smokeless Tobacco: Former User Q uit: 09/20/1991 Alcohol Use Standard Drinks/Week Comments No 0 (1 standard drink = 0.6 oz pure alcoho l) Sex Assigned at Date Recorded Not on file documented as of this encounter Miscellaneous Notes Telephone Encounter - Ruddy JENNIFER Andrew - 07/28/2012 9:18 AM CDT Left message for pt with information about procedure. Asked that she call back with specific pharmacy where she would like prep. August 12, check in 115pm, procedures 2pm. [facility] will mail prep Maria E will need an EGD + colonoscopy w/ me in the next 2-3wks before we start her on MTX - will help me know her baseline disease activity for comparison after MTX has had a chance to work. Please arrange for these, and update her re: the plan of care. Charan Salazar MD documented in this encounter Plan of Treatment Not on filedocumented as of this encounter Visit Diagnoses Not on filedocumented in this encounter Care Teams Ladies Suit Operator Relationship Specialty Start Date End Date Edison Tam MD PCP - General Family Practice 09/21/11 07/22/14 909 [facility] [address] [place] [address] documented as of this encounter
--- OUTSIDE RECORDS SUMMARY | 2021-10-24 12:06 | XMS_ITS | Encounter Summary ---
:1955 Author Organization [facility] Address [address] [place] [address]. [place] [address] Care Team Providers Name Role Phone Edison Tam MD Primary Care Provider Encounter Details Date Type Department Care Team Description 06/26/2012 Medical Correspondence [facility] [employer] Unknown, ORDER/PRESCRIPTION Health Info Mgmt Provider [facility] [address] [place] [phone] Social History Tobacco Use Types Packs/Day Years Used Date Former Smoker 1 18 Smokeless Tobacco: Former User Q uit: 09/20/1991 Alcohol Use Standard Drinks/Week Comments No 0 (1 standard drink = 0.6 oz pure alcoho l) Sex Assigned at Date Recorded Not on file documented as of this encounter Progress Notes Unknown, Provider - 07/02/2012 9:39 AM CDT documented in this encounter Plan of Treatment Not on filedocumented as of this encounter Visit Diagnoses Not on filedocumented in this encounter Care Teams Manager Night Relationship Specialty Start Date End Date Edison Tam MD PCP - General Family Practice 09/21/11 07/22/[address] [id number] documented as of this encounter
--- OUTSIDE RECORDS SUMMARY | 2021-10-24 12:06 | XMS_ITS | Encounter Summary ---
:1955 Author Organization [facility] Address [address] [place] [address] Care Team Providers Name Role Phone Edison Tam MD Primary Care Provider Reason for Visit Reason Onset Date Comments Referral 07/18/2012 requests rheumatolog y referral Encounter Details Date Type Department Care Team Description 07/18/2012 Telephone [facility], Primary Joseph Hernandez , Referral ([facility] RN rheumatology referral) 3rd Floor, Clinic [address] [place] [phone] Social History Tobacco Use Types Packs/Day Years Used Date Former Smoker 1 18 Smokeless Tobacco: Former User Q uit: 09/20/1991 Alcohol Use Standard Drinks/Week Comments No 0 (1 standard drink = 0.6 oz pure alcoho l) Sex Assigned at Date Recorded Not on file documented as of this encounter Miscellaneous Notes Telephone Encounter - Joseph Hernandez RN - 07/22/2012 9:02 AM CDT Left message on voicemail that referral she requested is in place now. Telephone Encounter - Edison Tam MD - 07/19/2012 2:46 PM CDT She has symptoms of connective tissue disorder. Referral approved ( previously placed 11/01/11.) Edison Tam Telephone Encounter - Joseph Hernandez RN - 07/18/2012 2:22 PM CDT She has seen Rheumatologists in the past and they have diagnosed her with Lupus. She said her labs usually don't reflect this since she is on Prednisone. She said her symptoms aren't severe currently, but she would like to be followed by a Back Tender Cylinder to help prevent a severe flare. Currently she has a butterfly rash on her face and skin and joints hurt. Telephone Encounter - Joseph Hernandez RN - 07/18/2012 2:22 PM CDT Message copied by JOSEPH HERNANDEZ on SatJuly 18, 2012 2:22 PM ------ Message from: CITLALLI CEJA Created: SatJuly 18, 2012 10:12 AM Regarding: Referral Contact: Pt stated she has lupus or lupus like symptoms and has for a while. She's looking for Dr. 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 Please call back. Citlalli Dumas documented in this encounter Plan of Treatment Not on filedocumented as of this encounter Visit Diagnoses Diagnosis Connective tissue disorder (H) - Primary Unspecified diffuse connective tissue di sease documented in this encounter Care Teams Criminology Teacher Relationship Specialty Start Date End Date Edison Tam MD PCP - General Family Practice 09/21/11 07/22/[address] [address] documented as of this encounter
--- OUTSIDE RECORDS SUMMARY | 2021-10-24 12:06 | XMS_ITS | Encounter Summary ---
:1955 Author Organization [facility] Address [address] [place] [id number] Care Team Providers Name Role Phone Edison Tam MD Primary Care Provider Reason for Visit Reason Onset Date Comments Appointment 06/04/2012 Encounter Details Date Type Department Care Team Description 06/04/2012 Telephone Medicine GI - 1E Charan Salazar MD Appointment [address] [address] [address], [address] [place] [address] [place] [phone] Social History Tobacco Use Types Packs/Day Years Used Date Former Smoker 1 18 Smokeless Tobacco: Former User Q uit: 09/20/1991 Alcohol Use Standard Drinks/Week Comments No 0 (1 standard drink = 0.6 oz pure alcoho l) Sex Assigned at Date Recorded Not on file documented as of this encounter Miscellaneous Notes Telephone Encounter - Janneth Fernandez - 06/04/2012 1:43 PM CDT Per Jocelyne's task, set pt up for clinic appt with Dr. Salazar on 07/25, 10am for f/u MR enterography done 06/12. Called and spoke with pt and informed her of the above and also let her know that after the scan, ifa sooner appt is warranted, oJcelyne will give her a call. No further questions at this time. AH documented in this encounter Plan of Treatment Not on filedocumented as of this encounter Visit Diagnoses Not on filedocumented in this encounter Care Teams Contract Manager Relationship Specialty Start Date End Date Edison Tam MD PCP - General Family Practice 09/21/11 07/22/14 909 [facility] [address] [place] [address] documented as of this encounter
--- OUTSIDE RECORDS SUMMARY | 2021-10-24 12:06 | XMS_ITS | Encounter Summary ---
:1955 Author Organization [place] Address [facility] [place] [address] Care Team Providers Name Role Phone Edison Tam MD Primary Care Provider Reason for Visit Auth/Cert - Closed Specialty Diagnoses / Procedures Referred By Contact Refer red To Contact Gastroenterology Diagnoses Regional enteritis Uu Endoscopy Procedures COLONOSCOPY COMBINED ESOPHAGOSCOPY, GASTROSCOPY, DUODENOSCOPY (EGD) [address] [place] [address] Phone: Referral ID Status Reason Start Date Expiration Date Visits Requ ested Visits Authorized [id number] Closed 1 1 Encounter Details Date Type Department Care Team Description 08/26/2012 Hospital Encounter [facility] Slick Velázquez MD Endoscopy [address] [place] [id number] [phone] (Wo rk) Social History Tobacco Use Types Packs/Day Years Used Date Former Smoker 1 18 Smokeless Tobacco: Former User Q uit: 09/20/1991 Alcohol Use Standard Drinks/Week Comments No 0 (1 standard drink = 0.6 oz pure alcoho l) Sex Assigned at Date Recorded Not on file documented as of this encounter Last Filed Vital Signs Vital Sign Reading Time Taken Comments Blood Pressure 105/72 08/26/2012 3:00 PM CDT Pulse - - Temperature - - Respiratory Rate 16 08/26/2012 3:00 PM CDT Oxygen Saturation 91% 08/26/2012 3:00 PM CDT Inhaled Oxygen Concentration - - Weight 51.3 kg (113 lb) 08/26/2012 12:41 PM CDT Height - - Body Mass Index 20.67 08/13/2012 9:48 AM CDT documented in this encounter Medications at Time of Discharge Medication Sig Dispensed Refills Start Date End Date Calcium Citrate-Vitamin D Take 1 tablet by 0 (CITRACAL + D PO) mouth 2 times daily. Carboxymethylcellulose Sodium Apply to eye. 0 (REFRESH TEARS OP) fluorouracil (EFUDEX) 5 % Apply topically 40 g 0 02/03 creamIndications: AK (actinic to bilateral keratosis) forearms and hands twice daily guaiFENesin (MUCINEX) 600 MG Take 600 mg by 0 12 hr tablet mouth 2 times daily as needed. Menthol, Topical Analgesic, Externally apply 0 (ICY HOT EX) topically. Patient uses Gel, Cream and Patch PRN ALPRAZolam (XANAX) 0.5 MG Take 0.5 mg by 0 01/28/2017 tablet mouth At Bedtime multivitamin (THERA-PLUS) Take 5 mLs by 0 05/09/2017 LIQD mouth daily. buPROPion (WELLBUTRIN SR) 150 Take 150 mg by 0 09/08/2012 MG 12 hr tablet mouth 2 times daily. AM and 1 PM calcium carbonate (TUMS) 500 Take 1 chew tab 0 12/01/2014 MG chewable tablet by mouth as needed. cyanocobalamin 1000 MCG/ML Inject 1 mL as 1 mL 11 07/0809/08/2012 injectionIndications: B12 directed every deficiency 30 days. cyanocobalamin 1000 MCG/ML Inject 1 mL into 0 04/27/2013 injection the muscle every 30 days. Levothyroxine Sodium 50 MCG Take 1 tablet by 90 capsule 1 09/12/2012 CAPSIndications: Yossi's mouth daily. thyroiditis LOPERAMIDE HCL PO Take 1 tablet by 0 0 09/08/2012 mouth daily. ORDER FOR DMEIndications: B12 Injection 12 each 0 201204/27/2013 deficiency Supplies for Vitamin B12: 3cc syringes w/ 27 gauge needles, 1 inch length IHXL-SIN-IKNKNYL Might-a mins 0 2013 spectrum once daily (Digestive Enzymes) Potassium Chloride CR 8 MEQ Take 16 mEq by 60 capsule 1 03/1210/09/2012 CPCRIndications: mouth daily. Hypopotassemia predniSONE (DELTASONE) 10 MG Take 1 tablet by 90 tablet 0 0 04/29/2012 12/03/2012 tabletIndications: Crohn's mouth daily. disease (H) predniSONE (DELTASONE) 5 MG Take 2 tablets 60 tablet 6 07/1009/08/2012 tabletIndications: Crohn's by mouth daily. disease (H) propranolol (INDERAL) 20 MG Take 1 tablet by 90 tablet 2 09/23/2012 tabletIndications: mouth daily. Unspecified essential hypertension rOPINIRole (REQUIP) 1 MG Take 1 tablet by 90 tablet 1 06/0510/02/2012 tabletIndications: Restless mouth At leg Bedtime. vitamin D (ERGOCALCIFEROL) Take 50,000 0 12/03/2012 19586 UNIT capsule Units by mouth. 2 times a week. documented as of this encounter Nursing Notes Elise Whipple RN - 08/26/2012 2:26 PM CDT Flexible sigmoidoscopy and egd tolerated moderately well with sedation given. Did not become very drowsy even with the maximum level of sedation she was given. Had some wretching with the egd but not enough to interfere with the procedure. Biopsies of colon, duodenum, stomach and esophagus taken. Willfollow up with Dr. Velázquez in clinic. Dr. Velázquez's nurse coordinator will call patient to set up anappointment. Jori Gaytan RN - 08/26/2012 1:26 PM CDT Delay in procedure start secondary to awaiting vascular access. documented in this encounter Plan of Treatment Not on filedocumented as of this encounter Procedures Procedure Name Priority Date/Time Associated Comments Diagnosis SURGICAL PATHOLOGY Routine 08/26/2012 2:03 PM Res ults for this EXAM CDT procedure are i n the results section. ESOPHAGOGASTRODUODENOS 08/26/2012 1:24 PM Regional ent eritis COPY, WITH BIOPSY CDT SIGMOIDOSCOPY, 08/26/2012 1:24 PM Regional enteritis FLEXIBLE, WITH BIOPSY CDT FLEXIBLE SIGMOIDOSCOPY Routine 08/26/2012 12:32 R esults for this PM CDT procedure are i n the results section. UPPER GI ENDOSCOPY Routine 08/26/2012 12:32 Resul ts for this PM CDT procedure are i n the results section. documented in this encounter Results Surgical pathology exam (08/26/2012 2:03 PM CDT) Component Value Ref Test Analysis Performed At [facility] Method Time Signature Copath Report Patient Name: MARIA E COLEY MR#: [id number] Specimen #: [id number] Collected: 08/26/2012 Received: 08/26/2012 Reported: 08/27/2012 23:46 Ordering Phy(s): JOLANTA VELÁZQUEZ SPECIMEN(S): A: Colon biopsy B: Duodenal biopsy C: Gastric biopsy D: Esophageal biopsy FINAL DIAGNOSIS: A. ??Large intestine, colon, endoscopic biopsy ? - ??Colonic mucosa with no histopathologic abnormalit y - ??No evidence of active or chronic [...] - ??Squamous mucosa with mild chronic inflammation an d basal cell hyperplasia, suggestive of reflux - ??Hyperkeratosis - ??No acute inflammation or viral organisms identified - ??GMS stain pending, to rule out fungal organisms I have personally reviewed all specimens and or slides, incl uding the listed special stains, and used them with my medical judgeme nt to determine the final diagnosis. Electronically signed out by: Axel Vanegas M.D., [facility] CLINICAL HISTORY: The patient is a 56-year-old woman with a history of Crohn's disease. Operative procedure: ??Upper and lower endoscopy to assess ? ?inflammatory bowel disease activity. GROSS: Four formalin-filled containers are received, each labeled w ith the patient's name, Maria E Coley, and medical record n cha. ? A. ? The first container is labeled colon biopsy. ??The specimen consists of two main soft tissue fragments measuring 0.4 x 0. 2 x 0.2 cm and 0.1 x 0.1 x 0.1 cm. ??Entirely submitted in A1. B. ? The second container is labeled duodenum biopsy. ??The specimen consists of three main soft tissue fragments measuring 0.3 cm , 0.3 cm and 0.2 cm in maximum dimensions. ??Entirely submitted in B1. C. ? The third container is labeled gastric biopsy. ?? The specimen consists of two main soft tissue fragments measuring 0.4 x 0. 3 x 0.2 cm and 0.3 x 0.3 x 0.2 cm. ??Entirely submitted in C1. D. ? The fourth container is labeled esophageal biopsy. ??The specimen consists of two pale main soft tissue fragments marques uring 0.3 x 0.2 x 0.1 cm and 0.3 x 0.2 x 0.1 cm. ??Entirely submitted in D1. ??MARIA DEL CARMEN Craig/ruben ??(08/27/12) MICROSCOPIC: Microscopic evaluation is performed. Axel Vanegas MD/halley 08/27/2012 TESTING LAB LOCATION: [address] ?? [id number] COLLECTION SITE: Client: [facility] Location: UUEND (B) Specimen Anatomical Collection Method Collection Time Receive d Time (Source) Location / / Volume Laterality 08/26/2012 2:03 PM 3 5:15 CDT PM CDT Jolanta KENYON - BRIAN SRINIVASAN Performing Organization Address City/State/ZIP Code Phon e Number COPATH FLEXIBLE SIGMOIDOSCOPY (08/26/2012 12:32 PM CDT) [facility] gist Method Time Signature Flex Sig [facility] RADIOLOGY [address] [place] [address] [phone] ? End oscopy Department RESULTS Patient Name: Maria E quiñonez ?Procedure Date: 08/26/2012 12:06:SS A6/P6 ? Date of : 1955 ?Admit Type: Outpatient ? Age: 56 ? Room: [facility] -Endoscopy ? Gender: Female ?Note Status: Finalized ? Attending MD: Jolanta Velázquez MD ? 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 Jose Tam MD Medicines: ?Midazo zhang 2 mg IV, Fentanyl 75 micrograms IV Complications: ?No immediate complications Procedure: ?Pre-Anesthesia Assessment: ?- Prior to the procedure, a History and Physical ?was performed, and patient medications, allergies ?and sensitivities have been reviewed. The patient's ?tolerance of previous anesthesia has been reviewed. ?- The risks and benefits of the procedure and the ?sedation options and risks were discussed with the ?patient. All questions were answered and informed ?consent was obtained. ?- Patient identification and proposed procedure ?were verified prior to the procedure by the ?physician and the nurse. The procedure was verified ?in the procedure room . ?- Pre-procedure physical examination revealed no ?contraindications to sedation. ?- ASA Grade Assessment: II - A patient with mild ?systemic disease. ?After obtaining informed consent, the scope was ?passed under direct vision. The Colonoscope was ?introduced through the anus and advanced to the ?left transverse colon. After obtaining informed ?consent, the scope was passed under direct vision. ?The flexible sigmoidoscopy was accomplished without ?difficulty. The patient tolerated the procedure ?well. The quality of the bowel preparation was ?unsatisfactory. ? Findings: ? The perianal exam was abnormal. Findings includ e evidence of previous ? 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 N o evidence of ? active perianal Crohn 's disease on inspection.Normal mucosa was found in ? the rectum, in the descending colon, at t he splenic flexure and in the ? distal transverse colon on this low-insufflation ex am. Biopsies were ? taken with a cold for ceps for histology. 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 disease activity. A large amount of solid brown stool was found in the ? distal transverse col on, precluding further visualization. Procedure was ? aborted accordingly, with close mucosal inspection and biopsies upon ? withdrawal. ? Impression: ? - Preparation of the colon was unsatisfactory. ?- The perianal exam was abnormal. 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 No ?evidence of active perianal Crohn's disease on ?inspection. 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 ?- A large amount of solid brown stool was found in ?the distal transverse colon, precluding further ?visualization. Procedure was aborted accordingly, ?with close mucosal inspection and biopsies upon ?withdrawal. Recommendation: ? - Perform an upper GI endosco py today. ?- Await pathology res ults. ?- Return to IBD Clinic ([facility]) as previously ?scheduled, will discuss timing for re- trial of SQ ?methotrexate at that visit. ?- The findings and recommendations were discussed ?with the patient. ? Electronically signed by Michael Velázquez Jolanta Velázquez MD Signed Date: 08/26/2012 14:06:WALLACE A6/P6 Number of Addenda: 0 I was physically present for the entire viewing portion of t he exam. Signature of teaching physician B4c/D4c Note Initiated On: 08/26/2012 12:06:SS A6/P6 Scope Withdrawal Time: Scope Withdrawal Time: Total Procedure Duration: Total Procedure Duration: Specimen (Source) Anatomical Collection Method Collection Time Re ceived Time Location / / Volume Laterality 08/26/2012 12:32 PM CDT Edison Tam MD PROCEDURES Performing Organization Address City/State/ZIP Code Phon e Number RADIOLOGY RESULTS UPPER GI ENDOSCOPY (08/26/2012 12:32 PM CDT) Component Value Ref Test Analysis Performed At [facility] Range Method Time Signature Upper GI [facility], [place] RADIOLOGY Endoscopy [address] [place] [address] [phone] ? Endoscopy Department RESULTS Patient Name: Maria E quiñonez ?Procedure Date: 08/26/2012 12:06:SS A6/P6 ? Date of : 1955 ?Admit Type: Outpatient ? Age: 56 ? Room: [facility]Endoscopy ? Gender: Female ?Note Status: Finalized ? Attending MD: Jolanta Velázquez MD ?Pause for the Cause: Pause for the cause completed Procedure: ?Upper GI endoscopy Indications: ?Complicated post-surgical Crohn's disease, rule out ?upper GI tract involv ement Providers: ?Jolanta Velázquez MD, Ning Riojas RN Referring MD: ? Jose Tam MD Medicines: ?Midazolam 2 mg IV, Fentanyl 50 micrograms IV, ?Benzocaine spray Complications: ?No immediate complications Procedure: ?Pre-Anesthesia Assessment: ?- Prior to the procedure, a History and Physical ?was performed, and patient medications, allergies ?and sensitivities have been reviewed. The patient's ?tolerance of previous anesthesia has been reviewed. ?- The risks and benefits of the procedure and the ?sedation options and risks were discussed with the ?patient. All questions were answered and informed ?consent was obtained. ?- Patient identification and proposed procedure ?were verified prior to the procedure by the ?physician and the nurse. The procedure was verified ?in the procedure room . ?- Pre-procedure physical examination revealed no ?contraindications to sedation. ?- ASA Grade Assessment: II - A patient with mild ?systemic disease. ?After obtaining informed consent, the endoscope was ?passed under direct vision. Throughout the ?procedure, the patient's blood pressure, pulse, and ?oxygen saturations were monitored continuously. The ?Endoscope was introduced through the mouth, and ?advanced to the second part of duodenum. The upper ?GI endoscopy was accomplished without difficulty. ?The patient tolerated the procedure well. ? Findings: ? The examined esophagus was normal. Biopsies were take n from the ? mid-esophagus with a cold forceps for his tology. A small hiatus hernia ? was present. Localized mildly erythematou s mucosa with no bleeding was ? found in the gastric antrum. Biopsies were taken from the body and ? antrum with a cold forceps for histology. Stomach was otherwise normal ? on careful exam.Local ized nodular mucosa was found in the duodenal bulb. ? Biopsies were taken with a cold forceps f or histology. The 2nd part of ? the duodenum was normal. Biopsies were taken with a cold forceps for ? histology. ? Impression: ? - Normal esophagus. This was biopsied from the ?mid-esophagus to rule out IBD. ?- Small hiatus hernia . ?- Gastric mucosal abnormality characterized by mild ?antral erythema. This was biopsied from the body ?and antrum to rule ou t IBD. ?- Stomach was otherwise normal on careful exam. ?- Nodular mucosa in the duodenal bulb. This was ?biopsied to rule out IBD. ?- Normal 2nd part of the duodenum. This was ?biopsied. Recommendation: ? - Discharge patient to home. ?- Await pathology res ults. ?- Return to IBD Clinic ([facility]) as previously ?scheduled. ?- The findings and recommendations were discussed ?with the patient. ? Electronically signed by Michael Velázquez Jolanta Velázquez MD Signed Date: 08/26/2012 14:06:WALLACE A6/P6 Number of Addenda: 0 I was physically present for the entire viewing portion of t he exam. Signature of teaching physician B4c/D4c Note Initiated On: 08/26/2012 12:06:SS A6/P6 Scope Withdrawal Time: 0 hours 0 minutes 0 seconds Scope Withdrawal Time: 0 hours 0 minutes 0 seconds Total Procedure Duration: 0 hours 0 minutes 0 seconds Total Procedure Duration: 0 hours 0 minutes 0 seconds Specimen (Source) Anatomical Collection Method Collection Time Re ceived Time Location / / Volume Laterality 08/26/2012 12:32 PM CDT Edison Tma MD PROCEDURES Performing Organization Address City/State/ZIP Code Phon e Number RADIOLOGY RESULTS documented in this encounter Visit Diagnoses Not on filedocumented in this encounter Active and Recently Administered Medications Times are shown in CDT. PRN Medication Order 08/24/2012 08/25/2012 08/26/2012 benzocaine (HURRICAINE/TOPEX) 20 % spray (CANCELED) 1410 (Given - Provider: Jolanta Velázquez MD) PRN, moderate pain, Starting 08/26/12 at 1410, Intra-procedur e fentaNYL (SUBLIMAZE) injection (CANCELED) 1331 (Given - Provider: Elise Whipple RN)1335 (Given - Provider: Elise Whipple RN)1337 (Given - Provider: Elise Whipple RN)1410 (Given - Provider: Elise Whipple RN) PRN, Starting 08/26/12 at 1331, moderate to severe pain, Intr a-procedure midazolam (VERSED) injection (CANCELED) 1331 (Given - Provider: Elise Whipple RN)1342 (Given - Provider: Elise Whipple RN)1410 (Given - Provider: Elise Whipple RN) PRN, Starting 08/26/12 at 1331, anxiety, Intra-procedure documented in this encounter Care Teams General Utility Maintenance Repairer Relationship Specialty Start Date End Date Edison Tam MD PCP - General Family Practice 09/21/11 07/22/14 [address] [facility] [address] [place] [address] documented as of this encounter
--- OUTSIDE RECORDS SUMMARY | 2021-10-24 12:06 | XMS_ITS | Encounter Summary ---
:1955 Author Organization [place] Address [address] [place] [id number] Care Team Providers Name Role Phone Edison Tam MD Primary Care Provider Reason for Visit Reason Onset Date Comments Refill Request 07/03/2012 Encounter Details Date Type Department Care Team Description 07/03/2012 Refill Medicine GI - 1E [id number] [place] [address] Floor, [facility] [address] [place] [address] [place] [phone] Social History Tobacco Use Types Packs/Day Years Used Date Former Smoker 1 18 Smokeless Tobacco: Former User Q uit: 09/20/1991 Alcohol Use Standard Drinks/Week Comments No 0 (1 standard drink = 0.6 oz pure alcoho l) Sex Assigned at Date Recorded Not on file documented as of this encounter Miscellaneous Notes Telephone Encounter - Lorrie FoxJENNIFER - 07/03/2012 8:59 AM CDT Pt scheduled for MR Enterography 07-10-12. Requests Ativan script for anxiety. OK per Dr. Salazar. Will set up and send to Dr. Salazar for approval and signature. [phone]. Also requests Zofran ODT for nausea. OK per Dr. Salazar. Will set up and send to DR. Salazar for approval and signature. documented in this encounter Plan of Treatment Not on filedocumented as of this encounter Visit Diagnoses Diagnosis Anxiety attack - Primary Panic disorder without agoraphobia Nausea Nausea alone documented in this encounter Care Teams Field Care Advocate Relationship Specialty Start Date End Date Edison Tam MD PCP - General Family Practice 09/21/11 07/22/14 [address] [facility] [address] [place] [address] documented as of this encounter
--- OUTSIDE RECORDS SUMMARY | 2021-10-24 12:06 | XMS_ITS | Encounter Summary ---
:1955 Author Organization [facility] Address [address] [place] [address] Care Team Providers Name Role Phone Edison Tam MD Primary Care Provider Reason for Referral Specialty Diagnoses / Procedures Referred By Contact Refer red To Contact Edison Tam MD [address] [place] [phone] Referral ID Status Reason Start Date Expiration Date Visits Requ ested Visits Authorized Specialty Diagnoses / Procedures Referred By Contact Refer red To Contact Edison Tam MD [address] [place] [address] [phone] Referral ID Status Reason Start Date Expiration Date Visits Requ ested Visits Authorized Reason for Visit Reason Comments Derm Problem red line around eyes Crohns 2 month follow up Encounter Details Date Type Department Care Team Description 06/05/2012 Office Visit [facility], Primary Edison Tam Restless leg (Primary Dx); Care Center MD Marcia Right hand pain; 3rd Floor, Clinic [address] [facility] Balance disorder [phone] [place] [address] [place], [place] (Work) [phone] Social History Tobacco Use Types Packs/Day Years Used Date Former Smoker 1 18 Smokeless Tobacco: Former User Q uit: 09/20/1991 Alcohol Use Standard Drinks/Week Comments No 0 (1 standard drink = 0.6 oz pure alcoho l) Sex Assigned at Date Recorded Not on file documented as of this encounter Last Filed Vital Signs Vital Sign Reading Time Taken Comments Blood Pressure 108/74 06/05/2012 12:01 PM CDT Pulse 85 06/05/2012 12:01 PM CDT Temperature - - Respiratory Rate - - Oxygen Saturation - - Inhaled Oxygen Concentration - - Weight 60.3 kg (132 lb 14.4 oz) 06/05/2012 12:01 PM CDT Height - - Body Mass Index 24.7 06/04/2012 11:06 AM CDT documented in this encounter Patient Instructions Patient InstructionsJessi Perkins CMA - 06/05/2012 12:00 PM CDT Primary Care Center Medication Refill Request Information: * Please contact your pharmacy regarding ANY request for medication refills. [facility] Prescription Fax = [phone] * Please allow 3 business days for [...] results and signed off on them. ENT [phone] (8th floor [address]WB, [address]) [facility] [phone] ([address] [facility], [address]) Primary Care [phone] (3rd Floor [address], [address]) Return in about 6 months (around 12/06/2012). documented in this encounter Progress Notes Edison Tam MD - 06/05/2012 12:08 PM CDT Maria E Lanzdorfs here for follow up of chronic health conditions. Concerns are as follows: She is very happy with new GI provider, Dr Charan Salazar. He is recommending a boost smoothie daily. Restless legs. She has trid to exercise via stepper. She has had worsening of restless legs at night. She has had to take up to 3 tabs of Requip daily 1.5 mg. Right thumb roller blading injury. She has trouble using her right hand. Sharp pain. Balance issues she feels are related to ears and chronic sinus. She would like to see an ENT provider. She has noted a slightly red rash below eyes after using a new cream. She has hydrocortisone cream available. Patient Active Problem List Diagnosis ??? Yossi's [...] of skin ??? Dehydration ??? Sinus infection Past Medical History Diagnosis Date ??? Crohn's 1977 on prednisone chronically ??? Osteoporosis ??? Fracture of wrist fall ??? Narcotic dependence, in remission rehab ??? Nicotine dependence in remission ??? Menarche 9 y.o menapuase age 40 was on prednisone ??? Yossi's disease ??? Fibromyalgia ??? Lupus has had positive flare ups ??? Bunion ??? Arthritis ??? Malignant neoplasm hand skin cancer (left) Past Surgical History Procedure Date ??? Appendectomy open 1985 ??? Small bowel resection 1985 colon and distal ilium ??? Sigmoidectomy left ovary removal ??? Back surgery 2008 L4-L5 laminectomy ??? Release carpal tunnel right ??? Left ovary removal was removed during a resection ??? Back surgery 2010 L5 ??? 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 Colonoscopy Current Outpatient Prescriptions Medication ??? rOPINIRole (REQUIP) 1 MG tablet ??? ALPRAZolam (XANAX) 1 MG tablet ??? propranolol (INDERAL) 20 MG tablet ??? predniSONE (DELTASONE) 10 MG tablet ??? LOPERAMIDE HCL PO ??? multivitamin (THERA-PLUS) LIQD ??? [id number] ??? Carboxymethylcellulose Sodium (REFRESH TEARS OP) ??? Potassium Chloride CR 8 MEQ CPCR ??? Levothyroxine Sodium 50 MCG CAPS ??? fluorouracil (EFUDEX) 5 % cream ??? PREDNISONE PO ??? buPROPion (WELLBUTRIN SR) 150 MG 12 hr tablet ??? cyanocobalamin 1000 MCG/ML injection ??? guaiFENesin (MUCINEX) 600 MG 12 hr tablet ??? Menthol, Topical Analgesic, (ICY HOT EX) ??? Calcium Citrate-Vitamin D (CITRACAL + D PO) Allergies Allergen Reactions ??? Humira Rash ??? Ibuprofen Sodium GI Disturbance ??? Lyrica Other (See Comments) Patient feels [...] Male partner(s) twice Other Topics Concern ??? Not on file Social History Narrative Moved to [place] from [facility]. She is living in an apartment accessible. [...] ??? Colon Polyps No family hx of 4 point ROS of systems including Constitutional, Eyes, Gastroenterology, Muscularskeletal, Psychiatric were all negative except for pertinent positives noted in my HPI. BP 108/74 Pulse 85 Wt 60.283 kg (132 lb 14.4 oz) Constitutional: Oriented to person, place, and time. [...] wrist with decreased movement of right thumb. Lymphadenopathy: No cervical adenopathy. Neurological: Alert and oriented to person, place, and time. Normal strength. Skin: Slight redness under eyes Skin is warm and dry, chronic thin skin. Psychiatric: Normal mood, affect and behavior is normal. Results for orders placed in visit on 06/04/12 AMYLASE Component Value Range Amylase 73 30 - 110 U/L BILIRUBIN CONJUGATED AND DELTA Component Value Range Bilirubin Conjugated 0.0 0.0 - 0.3 mg/dL Bilirubin Delta 0.1 0.0 - 0.4 mg/dL CBC WITH PLATELETS DIFFERENTIAL Component Value Range WBC 7.4 4.0 - 11.0 10e9/L RBC Count 4.91 3.8 - 5.2 10e12/L Hemoglobin 14.7 11.7 - 15.7 g/dL Hematocrit 45.7 35.0 - 47.0 % MCV 93 78 - 100 fl MCH 29.9 26.5 - 33.0 pg MCHC 32.2 31.5 - 36.5 g/dL RDW 12.5 10.0 - 15.0 % Platelet Count 264 150 - 450 10e9/L Diff Method Automated Method % Neutrophils 78.3 (*) 40 - 75 % % Lymphocytes 12.4 (*) 20 - 48 % % Monocytes 7.6 0 - 12 % % Eosinophils 0.5 0 - 6 % % Basophils 0.8 0 - 2 % % Immature Granulocytes 0.4 0 - 0.4 % Absolute Neutrophil 5.8 1.6 - 8.3 10e9/L Absolute Lymphocytes 0.9 0.8 - 5.3 10e9/L Absolute Monoctyes 0.6 0.0 - 1.3 10e9/L Absolute Eosinophils 0.0 0.0 - 0.7 10e9/L Absolute Basophils 0.1 0.0 - 0.2 10e9/L Abs Immature Granulocytes 0.0 0 - 0.03 10e9/L COMPREHENSIVE METABOLIC PANEL Component Value Range Sodium 144 133 - 144 mmol/L Potassium 4.4 3.4 - 5.3 mmol/L Chloride 105 94 - 109 mmol/L Carbon Dioxide 22 20 - 32 mmol/L Anion Gap 17 6 - 17 mmol/L Glucose 82 60 - 99 mg/dL Urea Nitrogen 14 7 - 30 mg/dL Creatinine 0.89 0.52 - 1.04 mg/dL GFR Estimate 65 >60 mL/min/1.7m2 GFR Estimate If Black 79 >60 mL/min/1.7m2 Calcium 8.8 8.5 - 10.4 mg/dL Bilirubin Total 0.3 0.2 - 1.3 mg/dL Albumin 4.6 3.3 - 4.9 g/dL Protein Total 7.7 6.8 - 8.8 g/dL Alkaline Phosphatase 77 40 - 150 U/L ALT 23 0 - 50 U/L AST 32 0 - 45 U/L CRP INFLAMMATION Component Value Range CRP Inflammation <5.0 0.0 - 8.0 mg/L ERYTHROCYTE SEDIMENTATION RATE AUTO Component Value Range Sed Rate 4 0 - 30 mm/h FERRITIN Component Value Range Ferritin 121 10 - 300 ng/mL FOLATE Component Value Range Folate 11.9 >3.3 ng/mL IRON AND IRON BINDING CAPACITY Component Value Range Iron 63 35 - 180 ug/dL Iron Binding Cap 324 240 - 430 ug/dL Iron Saturation Index 19 15 - 46 % LIPASE Component Value Range Lipase 234 20 - 250 U/L PREALBUMIN Component Value Range Prealbumin 31 15 - 45 mg/dL VITAMIN B12 Component Value Range Vitamin B12 297 >210 pg/mL MAGNESIUM Component Value Range Magnesium 2.0 1.6 - 2.3 mg/dL HEPATITIS B CORE ANTIBODY Component Value Range Hepatitis B Core Marli Negative NEG HEPATITIS B SURFACE ANTIBODY Component Value Range Hep B Surface Marli 1.5 HEPATITIS B SURFACE ANTIGEN Component Value Range Hep B Surface Agn Negative NEG HEPATITIS A ANTIBODY Component Value Range Hepatitis A Antibody Negative ROUTINE UA WITH MICROSCOPIC REFLEX TO CULTURE Component Value Range Color Urine Yellow Appearance Urine Slightly Cloudy Glucose Urine Negative NEG mg/dL Bilirubin Urine Negative NEG Ketones Urine Negative NEG mg/dL Specific [place]itar Urine 1.018 1.003 - 1.035 Blood Urine Negative NEG pH Urine 5.0 5.0 - 7.0 pH Protein Albumin Urine 10 (*) NEG mg/dL Urobilinogen mg/dL Normal 0.0 - 2.0 mg/dL Nitrite Urine Negative NEG Leukocyte Esterase Urine Negative NEG Source Midstream Urine WBC Urine <1 0 - 2 /HPF RBC Urine 2 0 - 2 /HPF Squamous Epithelial /HPF Urine <1 0 - 1 /HPF Mucous Urine Present (*) NEG /LPF Hyaline Casts 20 (*) 0 - 2 /LPF Calcium Oxalate Moderate (*) NEG /HPF Maria E was seen today for derm problem and crohns. Diagnoses and associated orders for this visit: Contact derm under her eyes: Discontinue Moisturizing cream as causing irritation, may use mild hydrocortisone. Restless leg - rOPINIRole (REQUIP) 1 MG tablet; Take 1 tablet by mouth At Bedtime. We reviewed side effects. She may take a half tab prior to nap Right hand pain - ORTHOPEDICS ADULT REFERRAL Balance disorder - OTOLARYNGOLOGY REFERRAL She is doing much better. We reviewed her recent labs available in chart all look great. We did not review the urine sample as it was not available. All questions were addressed and voiced understanding and agreement with the above. Edison Tam documented in this encounter Nursing Notes 06/05/2012 11:40 AM CDT >> [facility] Jun 05, 2012 12:03 PM Patient presents with: Derm Problem - red line around eyes Crohns - 2 month follow up JESSI PERKINS at 12:01 PM on 06/05/2012. documented in this encounter Plan of Treatment Scheduled Referrals Name Type Priority Associated Diagnoses Order S chedule ORTHOPEDICS ADULT REFERRAL Referral Routine Right hand ashwini n Ordered: 06/05/2012 OTOLARYNGOLOGY REFERRAL Referral Routine Balance disorder Ordered: 06/05/2012 documented as of this encounter Visit Diagnoses Diagnosis Restless leg - Primary Restless legs syndrome (RLS) Right hand pain Pain in limb Balance disorder Other symptoms involving nervous and mus culoskeletal systems documented in this encounter Care Teams Brick And Blocker Aid Labor Relationship Specialty Start Date End Date Edison Tam MD PCP - General Family Practice 09/21/11 07/22/[address] [facility] 4 [place] [address] documented as of this encounter
--- OUTSIDE RECORDS SUMMARY | 2021-10-24 12:06 | XMS_ITS | Encounter Summary ---
:1955 Author Organization [facility] Address [address] [place] [address] Care Team Providers Name Role Phone Edison Tam MD Primary Care Provider Reason for Visit Reason Onset Date Comments Other 07/29/2012 Encounter Details Date Type Department Care Team Description 07/29/2012 Telephone Medicine GI - 1E Charan Salazar MD Other [address] [address] 1st Floor, [facility] [address] [place] [address] [place] [phone] Social History Tobacco Use Types Packs/Day Years Used Date Former Smoker 1 18 Smokeless Tobacco: Former User Q uit: 09/20/1991 Alcohol Use Standard Drinks/Week Comments No 0 (1 standard drink = 0.6 oz pure alcoho l) Sex Assigned at Date Recorded Not on file documented as of this encounter Miscellaneous Notes Telephone Encounter - Lorrie Fox LPN - 07/29/2012 11:23 AM CDT Left message for pt to return call to discuss Dr. Salazar's recommendation for EGD/colonoscopy. documented in this encounter Plan of Treatment Not on filedocumented as of this encounter Visit Diagnoses Not on filedocumented in this encounter Care Teams Polytechnic Teacher Relationship Specialty Start Date End Date Edison Tam MD PCP - General Family Practice 09/21/11 07/22/14 909 [facility] 4 [place] [address] documented as of this encounter
--- OUTSIDE RECORDS SUMMARY | 2021-10-24 12:06 | XMS_ITS | Encounter Summary ---
:1955 Author Organization [facility] Address [address] [place] [address] Care Team Providers Name Role Phone Edison Tam MD Primary Care Provider Reason for Visit Reason Onset Date Comments Refill Request 07/08/2012 Encounter Details Date Type Department Care Team Description 07/08/2012 Refill Medicine GI - 1E Charan Salazar MD Refill Request [id number] [place] [address] Floor, [facility] [address] [place] [address] [place] [phone] Social History Tobacco Use Types Packs/Day Years Used Date Former Smoker 1 18 Smokeless Tobacco: Former User Q uit: 09/20/1991 Alcohol Use Standard Drinks/Week Comments No 0 (1 standard drink = 0.6 oz pure alcoho l) Sex Assigned at Date Recorded Not on file documented as of this encounter Miscellaneous Notes Telephone Encounter - Lorrie Fox LPN - 07/08/2012 10:29 AM CDT Ordered B-12 injections/supplies per inbaLighting by LEDet message from Dr. Salazar. Set up and sent to Dr. Salazar for approval and signature. Pt requested IM injections. Please arrange for monthly SQ injections documented in this encounter Plan of Treatment Not on filedocumented as of this encounter Visit Diagnoses Diagnosis B12 deficiency - Primary Other B-complex deficiencies documented in this encounter Care Teams Assistant Basketball Coach Relationship Specialty Start Date End Date Edison Tam MD PCP - General Family Practice 09/21/11 07/22/14 909 [facility] 4 [place] [address] documented as of this encounter
--- OUTSIDE RECORDS SUMMARY | 2021-10-24 12:06 | XMS_ITS | Encounter Summary ---
:1955 Author Organization [facility] Address [address] [place] [address] Care Team Providers Name Role Phone Edison Tam MD Primary Care Provider Reason for Visit Reason Onset Date Comments Appointment 07/31/2012 Encounter Details Date Type Department Care Team Description 07/31/2012 Telephone Medicine GI - 1E Charan Salazar MD Appointment [address] [address] 1st Floor, [address] [place] [address] [place] [phone] Social History Tobacco Use Types Packs/Day Years Used Date Former Smoker 1 18 Smokeless Tobacco: Former User Q uit: 09/20/1991 Alcohol Use Standard Drinks/Week Comments No 0 (1 standard drink = 0.6 oz pure alcoho l) Sex Assigned at Date Recorded Not on file documented as of this encounter Miscellaneous Notes Telephone Encounter - Candelaria Fernandez - 07/31/2012 10:19 AM CDT Called and spoke with pt, she is aware and will attend 08/13 Dr. Salazar appt. No further questions. AH Telephone Encounter - Candelaria Fernandez - 07/31/2012 10:17 AM CDT Message copied by CANDELARIA FERNANDEZ on SatJuly 31, 2012 10:17 AM ------ Message from: POWER PENA Created: SatJuly 31, 2012 8:19 AM Could you please call pt and ask her to come in for appt with Martin on 08-13-12. He wants to discuss further treatment. Can offer [phone] appt. Thanks Power documented in this encounter Plan of Treatment Not on filedocumented as of this encounter Visit Diagnoses Not on filedocumented in this encounter Care Teams Solar Pv Installer Relationship Specialty Start Date End Date Edison Tam MD PCP - General Family Practice 09/21/11 07/22/14 909 [facility] 4 [place] [address] documented as of this encounter
--- OUTSIDE RECORDS SUMMARY | 2021-10-24 12:06 | XMS_ITS | Encounter Summary ---
:1955 Author Organization [facility] Address [address] [place] [address] Care Team Providers Name Role Phone Edison Tam MD Primary Care Provider Reason for Visit Reason Onset Date Comments Throat Problem 07/11/2012 possible thrush Encounter Details Date Type Department Care Team Description 07/11/2012 Telephone [facility], Primary Sharri Barrett, RN Throat Problem [facility] (possible thrush) 3rd Floor, Clinic [address] [phone] Social History Tobacco Use Types Packs/Day Years Used Date Former Smoker 1 18 Smokeless Tobacco: Former User Q uit: 09/20/1991 Alcohol Use Standard Drinks/Week Comments No 0 (1 standard drink = 0.6 oz pure alcoho l) Sex Assigned at Date Recorded Not on file documented as of this encounter Miscellaneous Notes Telephone Encounter - Sharri Barrett, RN - 07/11/2012 3:37 PM CDT Patient called in stating she had something foreign in her throat. Described throat as somewhat sore. Patient stated that she believes her symptoms started a few weeks ago when she had an upper respiratory infection. She thought it was part of those symptoms but it has not gone away. Patient states she has a white coating on her tongue and that her chest feels like it is congested but it's not. Patient has an appointment to be seen at ENT on 07/16/2012 and will address the symptoms then. She also has a root canal on Saturday. I suggested that she inform her dentist and get her throat cultured before next week to prevent complications during the oral procedure. Patient agreed with plan. documented in this encounter Plan of Treatment Not on filedocumented as of this encounter Visit Diagnoses Not on filedocumented in this encounter Care Teams Carbon Grinder Relationship Specialty Start Date End Date Edison Tam MD PCP - General Family Practice 09/21/11 07/22/14 90 [facility] 4 [place] [address] documented as of this encounter
--- OUTSIDE RECORDS SUMMARY | 2021-10-24 12:06 | XMS_ITS | Encounter Summary ---
:1955 Author Organization [facility] Address [address] [facility] [place] [address] Care Team Providers Name Role Phone Edison Tam MD Primary Care Provider Encounter Details Date Type Department Care Team Description 07/24/2012 Medical Correspondence [facility] Unknown, [facility] Health Info Mgmt Provider CERTIFICATI ON \T\ Srvcs PLAN OF CARE [address] [place] [address] Social History Tobacco Use Types [...] on filedocumented in this encounter Care Teams Principal Solutions Architect Relationship Specialty Start Date End Date Edison Tam MD PCP - General Family Practice 09/21/11 07/22/[address] [address] documented as of this encounter
--- OUTSIDE RECORDS SUMMARY | 2021-10-24 12:06 | XMS_ITS | Encounter Summary ---
:1955 Author Organization [facility] Address [address] [place] [address] Care Team Providers Name Role Phone Edison Tam MD Primary Care Provider Reason for Visit Reason Onset Date Comments Other 07/28/2012 Encounter Details Date Type Department Care Team Description 07/28/2012 Telephone Medicine GI - 1E Charan Salazar MD Other [address] [address] 1st Floor, [facility] [address] [place] [address] [place] [phone] Social History Tobacco Use Types Packs/Day Years Used Date Former Smoker 1 18 Smokeless Tobacco: Former User Q uit: 09/20/1991 Alcohol Use Standard Drinks/Week Comments No 0 (1 standard drink = 0.6 oz pure alcoho l) Sex Assigned at Date Recorded Not on file documented as of this encounter Miscellaneous Notes Telephone Encounter - Ruddy JENNIFER Andrew - 07/28/2012 2:58 PM CDT Pt I'll try to call her later this afternoon once I'm back from giving the [facility] lecture. I'll go over the risks/benefits again with her again - if she chooses to forgo the procedures, that's fine, but it does complicate knowing how much benefit she'll gain from the MTX. I'll explain that to her again. I'll CC her PCP as well to keep her apprised. Charan Salazar MD Spoke to pt. She states that knowing baseline disease activity for comparison after MTX is not a good enough reason to go through a colonoscopy and EGD as she will have to do a 4 day fast and will require hospitalization. Message sent to Dr. Salazar. documented in this encounter Plan of Treatment Not on filedocumented as of this encounter Visit Diagnoses Not on filedocumented in this encounter Care Teams Wind Turbine Service Technician Relationship Specialty Start Date End Date Edison Tam MD PCP - General Family Practice 09/21/11 07/22/14 909 [facility] 4 [place] [address] documented as of this encounter
--- OUTSIDE RECORDS SUMMARY | 2021-10-24 12:06 | XMS_ITS | Encounter Summary ---
:1955 Author Organization [facility] Address [address] [place] [address] Care Team Providers Name Role Phone Edison Tam MD Primary Care Provider Reason for Visit Reason Onset Date Comments Patient Request 07/29/2012 Encounter Details Date Type Department Care Team Description 07/29/2012 Telephone Medicine GI - 1E Charan Salazar MD Patient Request Luke Barah[address] [address] 1st Floor, [address] [place] [address] [place] [phone] Social History Tobacco Use Types Packs/Day Years Used Date Former Smoker 1 18 Smokeless Tobacco: Former User Q uit: 09/20/1991 Alcohol Use Standard Drinks/Week Comments No 0 (1 standard drink = 0.6 oz pure alcoho l) Sex Assigned at Date Recorded Not on file documented as of this encounter Miscellaneous Notes Telephone Encounter - Charan Salazar MD - 07/29/2012 8:57 AM CDT Contacted pt per her request today to review current mgmt - no answer, left brief VM to let her knowI called back. Per pt's previous call, she would like to defer moving forward w/ EGD/colonoscopy. Will discuss reasons for endoscopic evaluation (previously reviewed at last 2 visits), specifically to assess current level of mucosal activity prior to initiation of MTX. Thankfully the MRI shows no obvious structural disease, but this can be a murky biomarker given the complex fistulizing/post-surgical history involved in pt's care. In order to best assess the potential benefit of MTX (as well as to confirm presenceof colonic disease and perform cancer/dysplasia surveillance as this would be due), at minimum a colonoscopy would be advised to evaluate further. Suspect pt's reluctance may be related to her issues from the SGS and diarrhea/dehydration standpoint; as such, alternative preparations (likely utilizing strict CLD/low-residue diet for 4-5 days priorto procedure +/- gentle single dose of Miralax daily) could be considered. Will CC above information to GI Clinic staff so they can update pt accordingly, will also CC PCP as well. Please contact us w/ any further questions. Charan Salazar MD Anatomy And Physiology Instructor [facility] - Department of Medicine Division of Gastroenterology documented in this encounter Plan of Treatment Not on filedocumented as of this encounter Visit Diagnoses Not on filedocumented in this encounter Care Teams Automotive Technician Instructor Relationship Specialty Start Date End Date Edison Tam MD PCP - General Family Practice 09/21/11 07/22/[address] [address] documented as of this encounter
--- OUTSIDE RECORDS SUMMARY | 2021-10-24 12:06 | XMS_ITS | Encounter Summary ---
:1955 Author Organization [facility] Address [address] [place] [id number] Care Team Providers Name Role Phone Edison Tam MD Primary Care Provider Reason for Visit Reason Comments RECHECK Follow up- Discuss further t reatment. Encounter Details Date Type Department Care Team Description 08/13/2012 Office Visit Medicine GI - 1E Charan Salazar MD IBD (inflammatory bowel disease) (Primar y Dx); [address] Inflammatory bowel disease (Crohn's dise ase) (H) Building [place], [place] 1st Floor, Clinic [address] [place] [address] SE (Work) [place] [address] Social History Tobacco Use Types Packs/Day Years Used Date Former Smoker 1 18 Smokeless Tobacco: Former User Q uit: 09/20/1991 Alcohol Use Standard Drinks/Week Comments No 0 (1 standard drink = 0.6 oz pure alcoho l) Sex Assigned at Date Recorded Not on file documented as of this encounter Last Filed Vital Signs Vital Sign Reading Time Taken Comments Blood Pressure 102/67 08/13/2012 9:48 AM CDT Pulse 87 08/13/2012 9:48 AM CDT Temperature - - Respiratory Rate - - Oxygen Saturation 97% 08/13/2012 9:48 AM CDT Inhaled Oxygen Concentration - - Weight 55.9 kg (123 lb 3.2 oz) 08/13/2012 9:48 AM CDT Height 157.5 cm (5' 2) 08/13/2012 9:48 AM CDT Body Mass Index 22.53 08/13/2012 9:48 AM CDT documented in this encounter Patient Instructions Patient InstructionsCharan Salazar MD - 08/13/2012 10:17 AM CDT I've included a brief summary of our discussion and care plan from today's visit below. Please review this information with your primary care provider. 1. Will move forward with an upper endoscopy + colonoscopy in the next 3-4 weeks as we discussed today, particularly to confirm your current level of disease activity on prednisone prior to starting methotrexate (MTX). We can do a modified bowel preparation with a strict clear liquid + soft/low-residue diet for 5 days prior to the procedure, can hold off a formal bowel preparation with Golytely givenyour previous colonic resections. 2. Discussed the controversial role of empiric treatment of intestinal candidiasis today, particularly in the immunocompromised patient population. I do think given your chronic steroid exposure you are at risk for esophageal candidiasis, and this possibility would be evaluated via the endoscopic evalu ation described above. 3. Depending on the endoscopic findings, will meet back in clinic to discuss dose/timing of MTX initiation. 4. Continue prednisone 10mg PO QDAY as ordered for now, will plan for reducing this dose gradually (likely with Endocrine assistance) once MTX efficacy/dosing has been established. 5. Return to GI Clinic with me in 6-8 weeks to review your progress, sooner if symptomatic. It was a pleasure seeing you in clinic today - please be in touch if there are any further questionsthat arise following today's visit. During business hours, you may reach my Nonprofit Manager at . For urgent/emergent questions after business hours, you may reach the on-call GI Fellowby contacting the [facility] conveyor weigher operator at . Any benign/non-urgent test results are usually communicated via letter or [employer] message within 1-2weeks after completion. Urgent results (those that require a change in the previously-discussed careplan) are usually communicated via a phone call once available from our clinic staff to discuss the results and the next steps in your evaluation. I recommend signing up for [employer] access if you have not already done [...] about your healthcare. Sincerely, Charan Salazar MD Dairy Products Maker [facility] - Department of Medicine Division of Gastroenterology documented in this encounter Progress Notes Charan Salazar MD - 08/13/2012 9:45 AM CDT GI CLINIC VISIT CC/REFERRING MD: Edison [...] presenting for f/u Crohn's disease. Doingwell overall, no interval worsening of known fistula sxs since last visit. Denies any N/V/F/C/DONNELLY or other const/syst/cardiopulmonary sxs, no BRBPR/melena/urinary changes, no unintentional wt loss or appetite/satiety changes. No other bowel/bladder habit changes, ?+occ dysphagia (possible thrush in thepast) w/o overt odynophagia. No jaundice/icterus/pruritus, no acholic stools/steatorrhea, no jt pain/oral ulcer/rash/eye sxs noted. Reports markedly improved abd discomfort/bloating and stool output since cutting back on carb/fiber intake. ROS: 10pt ROS performed and otherwise negative. PERTINENT PAST MEDICAL/SURGICAL HISTORY: As noted above. PERTINENT MEDICATIONS: - prednisone 10mg PO QDAY Medications reviewed with patient today, see Medication List/Assessment for details. No other NSAID/anticoagulation reported by patient. No other OTC/herbal/supplements reported by patient. SOCIAL HISTORY: Tobacco: none. PHYSICAL EXAMINATION: Vitals reviewed, AFVSS Wt 123# today (stable, lower end of baseline) Gen: aaox3, cooperative, pleasant, not dyspneic/diaphoretic, nad [...] therapy currently - will move forward with endoscopic evaluation to confirm disease activity prior to MTX re-trial Reviewed recent lab/imaging data in detail today, discussed role for EGD + colonoscopy to confirm current mucosal disease activity prior to starting back on formal (potentially) steroid-sparing immunosuppression. Pt willing to proceed w/ EGD + colonoscopy as ordered, will plan for a modified bowel preparation w/ CLD + low-residue diet for 5 days prior to procedure (hold of Mag citrate +/- Golytely given volume intolerance in past). Continue prednisone 10mg PO QDAY as ordered for now, will discuss timing for MTX at next visit once procedures completed. Continue empiric GFD + low-FODMAP diet as pt isobserving, particularly given overall clinical improvement in likely SIBO sxs since starting this. 2. Discussion regarding intestinal candidiasis, would not advise empiric treatment for expected non-pathogenic colonization in a chronically immunosuppressed patient Given pt's chronic steroid exposure, it is warranted to perform EGD to r/o esophageal candidiasis given her possible dysphagic sxs. That being said, if no evidence of invasive mucosal involvement, would not advise empiric treatment for Jhoana spp. given the lack of substantiated medical literature tosupport efficacy. Pt will take this into consideration, did briefly discuss options if she would like to obtain an outside opinion re: this (i.e. [facility]). 3. Colorectal Cancer Screening Ongoing mgmt of active Crohn's disease, will readdress at next visit. Will plan for dysplasia surveillance biopsies at upcoming procedure. RTC 6-8 weeks, sooner if symptomatic. Thank you for this consultation. It was a pleasure to participate in the care of this patient; please contact us with any further questions. A total of 25 minutes was spent with this patient, 50% of which was counseling regarding the above delineated issues. Charan Salazar MD Dairy Products Maker [facility] - Department of Medicine Division of Gastroenterology documented in this encounter Nursing Notes 08/13/2012 9:40 AM CDT >> Roxy Lipscomb MA Wed Aug 13, 2012 9:49 AM Patient presents with: RECHECK - Follow up- Discuss further treatment. 08/13/12 0948 BP: 102/67 Pulse: 87 SpO2: 97% 5' 2, 123 lbs 3.2 oz, Body mass index is 22.53 kg/(m^2). Roxy Burch documented in this encounter Plan of Treatment Not on filedocumented as of this encounter Visit Diagnoses Diagnosis IBD (inflammatory bowel disease) - Prima ry Other and unspecified noninfectious adina roenteritis and colitis Inflammatory bowel disease (Crohn's dise ase) (H) Regional enteritis of unspecified site documented in this encounter Care Teams Collection Officer Relationship Specialty Start Date End Date Edison Tam MD PCP - General Family Practice 09/21/11 07/22/14 [address] [facility] [address] [place] [address] documented as of this encounter
--- OUTSIDE RECORDS SUMMARY | 2021-10-24 12:06 | XMS_ITS | Encounter Summary ---
:1955 Author Organization [place] Address [address] [place] [address]. [place] [address] Care Team Providers Name Role Phone Edison Tam MD Primary Care Provider Reason for Visit (Routine) - Closed Specialty Diagnoses / Procedures Referred By Contact Refer red To Contact Radiology Diagnoses MR ENTEROGRAPHY Procedure Notes: Intestinovesical fistula,Anal fistula,W/ low pelvic cuts,multi-organ fistulas (bladder, vagina, perianal) - request pelvic MRI cuts. Uu Mri Procedures RADIOLOGY [address] [place] [address] Phone: Referral ID Status Reason Start Date Expiration Date Visits Requ ested Visits Authorized [id number] Closed 06/12/2012 06/12/2013 1 1 Encounter Details Date Type Department Care Team Description 07/10/2012 [facility] Charan Salazar Intesti novesical fistula; Encounter [facility] Imaging Perianal fistula [address] [address] [place], [place] [phone] [id number] Social History Tobacco Use Types Packs/Day Years [...] Patient uses Gel, Cream and Patch PRN multivitamin (THERA-PLUS) Take 5 mLs by 0 05/09/2017 LIQD mouth daily. ALPRAZolam (XANAX) 1 MG Take 1 mg by 0 08/13/2012 tabletIndications: Crohn's mouth daily. At disease of both small and night, sometimes large intestine with 2mg if needed. complication (H), Intestinovesical fistula, Perianal fistula, Chronic diarrhea buPROPion (WELLBUTRIN SR) 150 Take 150 mg by 0 09/08/2012 MG 12 hr tablet mouth 2 times daily. AM and 1 PM cyanocobalamin 1000 MCG/ML Inject 1 mL as 1 mL 11 07/0809/08/2012 injectionIndications: B12 directed every deficiency 30 days. cyanocobalamin 1000 MCG/ML Inject 1 mL into 0 04/27/2013 injection the muscle every 30 days. Levothyroxine Sodium 50 MCG Take 1 tablet by 90 capsule 1 09/12/2012 CAPSIndications: Yossi's mouth daily. thyroiditis LOPERAMIDE HCL PO Take 1 tablet by 0 0 09/08/2012 mouth daily. LORazepam (ATIVAN) 1 MG Take 1 tablet by 2 tablet 0 201208/13/2012 tabletIndications: Anxiety mouth every 6 attack hours as needed for anxiety. Take one tab prior to procedure. May repeat x1 if necessary. ondansetron (ZOFRAN ODT) 4 MG Take 1 tablet by 20 tablet 1 07/03/2012 08/13/2012 disintegrating mouth every 8 tabletIndications: Nausea hours as needed for nausea. ORDER FOR DMEIndications: B12 Injection 12 each 0 201204/27/2013 deficiency Supplies for Vitamin B12: 3cc syringes w/ 27 gauge needles, 1 inch length [id number] Might-a mins 0 2013 spectrum once daily (Digestive Enzymes) Potassium Chloride CR 8 MEQ Take 16 mEq by 60 capsule 1 03/1210/09/2012 CPCRIndications: mouth daily. Hypopotassemia predniSONE (DELTASONE) 10 MG Take 1 tablet by 90 tablet 0 0 04/29/2012 12/03/2012 tabletIndications: Crohn's mouth daily. disease (H) PREDNISONE PO Take 10 mg by 0 08/14/19 13 mouth daily. propranolol (INDERAL) 20 MG Take 1 tablet by 90 tablet 2 09/23/2012 tabletIndications: mouth daily. Unspecified essential hypertension rOPINIRole (REQUIP) 1 MG Take 1 tablet by 90 tablet 1 06/0510/02/2012 tabletIndications: Restless mouth At leg Bedtime. documented as of this encounter Miscellaneous Notes Initial Assessments - Adilia Provider - 07/14/2012 5:55 AM CDT documented in this encounter Plan of Treatment Not on filedocumented as of this encounter Procedures Procedure Name Priority Date/Time Associated Diagnosis Comme nts MR ENTEROGRAPHY W/O Routine 07/10/2012 2:09 Intestinovesical R esults for this AND W CONTRAST PM CDT fistula procedure are in Perianal fistula the results section. documented in this encounter Results MRI Enterography (07/10/2012 2:09 PM CDT) Anatomical Region Laterality Modality Abdomen/Pelvis, SUBRAD MR BODY, UMP MR BODY Magnetic Resonance Specimen (Source) Anatomical Collection Method Collection Time Re ceived Time Location / / Volume Laterality 07/10/2012 2:09 PM CDT Impressions 07/11/2012 7:28 PM CDT Impression: 1. No evidence of active Crohn's disease . 2. Chronic appearing small anovaginal fi stula. 3. No definite enterovesical fistula juan alberto ntified. 4. Cholelithiasis without evidence of ac [place] cholecystitis. RADHA JOHNSON MD I have personally reviewed the image and initial interpretation and agree with the findings. Narrative 07/11/2012 7:28 PM CDT MR ENTEROGRAPHY CLINICAL HISTORY:Intestinal vesicle fist lopez, anal fistula. Comparison: CT on 01/21/2012 TECHNIQUE: Imaging were obtained with an d without IV contrast with the patient prone and administration of oral contrast. The following MR images were acquired without IV contr ast: coronal T2 TrueFISP, axial T2 TrueFISP, coronal T2 HASTE, axi al T2 HASTE. Axial T1-weighted images with fat saturation w ere acquired at the following intervals relative to intravenous contra st administration: pre-contrast, 15 seconds, 60 seconds and 90 seconds, followed by coronal T1-weighted images at approximat angelique 2 minutes and 4 minutes. FINDINGS: Bowel: Postsurgical changes of right hem icolectomy. No abnormal thickening of the neoterminal ileum (ser ies 2, image 5). There is a T2 hypointense fistula commun icating from the anterior wall of anal canal to the vaginal canal series 17, image 9 which demonstrates progressive enhancement sug gesting chronic fistula. The maximum thickness of the fistula 6 mm. No definite fistula communicating with t he urinary bladder identified. No abnormal dilatation of bowel. No abno rmal wall thickening. Liver: Normal. Gallbladder: There are several gallstone s. No evidence of acute cholecystitis. Spleen: Normal. 9 mm accessory splenule medially. Pancreas: Normal. Adrenal Glands: Normal. Kidneys: Normal. Lymph Nodes: 1 cm mesenteric node in rig ht mid abdomen series 17, image 51 appears unchanged. Pelvis: No abnormal thickening of the ur inary bladder. 4 mm widemouthed bladder diverticulum the lef t lateral aspect series 101, image 94. Uterus and right ovary appears normal. Left ovary is surgically absent. Vasculature: Major vessels are patent. Abdominal wall: Normal. Lung bases: Clear. Heart size: Normal. Bones: No aggressive bony lesions. Procedure Note Radha Johnson MD - 013 MR ENTEROGRAPHY CLINICAL HISTORY:Intestinal vesicle fist lopez, anal fistula. Comparison: CT on 01/21/2012 TECHNIQUE: Imaging were obtained with an d without IV contrast with the patient prone and administration of oral contrast. The following MR images were acquired without IV contr ast: coronal T2 TrueFISP, axial T2 TrueFISP, coronal T2 HASTE, axi al T2 HASTE. Axial T1-weighted images with fat saturation w ere acquired at the following intervals relative to intravenous contra st administration: pre-contrast, 15 seconds, 60 seconds and 90 seconds, followed by coronal T1-weighted images at approximat angelique 2 minutes and 4 minutes. FINDINGS: Bowel: Postsurgical changes of right hem icolectomy. No abnormal thickening of the neoterminal ileum (ser ies 2, image 5). There is a T2 hypointense fistula commun icating from the anterior wall of anal canal to the vaginal canal series 17, image 9 which demonstrates progressive enhancement sug gesting chronic fistula. The maximum thickness of the fistula 6 mm. No definite fistula communicating with t he urinary bladder identified. No abnormal dilatation of bowel. No abno rmal wall thickening. Liver: Normal. Gallbladder: There are several gallstone s. No evidence of acute cholecystitis. Spleen: Normal. 9 mm accessory splenule medially. Pancreas: Normal. Adrenal Glands: Normal. Kidneys: Normal. Lymph Nodes: 1 cm mesenteric node in rig ht mid abdomen series 17, image 51 appears unchanged. Pelvis: No abnormal thickening of the ur inary bladder. 4 mm widemouthed bladder diverticulum the lef t lateral aspect series 101, image 94. Uterus and right ovary appears normal. Left ovary is surgically absent. Vasculature: Major vessels are patent. Abdominal wall: Normal. Lung bases: Clear. Heart size: Normal. Bones: No aggressive bony lesions. IMPRESSION Impression: 1. No evidence of active Crohn's disease . 2. Chronic appearing small anovaginal fi stula. 3. No definite enterovesical fistula juan alberto ntified. 4. Cholelithiasis without evidence of ac [place] cholecystitis. RADHA JOHNSON MD I have personally reviewed the image and initial interpretation and agree with the findings. Charan Salazar MD G MRI ORDERABLES documented in this encounter Visit Diagnoses Diagnosis Intestinovesical fistula Perianal fistula Anal fistula documented in this encounter Administered Medications Inactive Administered Medications - up to 3 most recent administrations Medication Order MAR Action Action Date Dose Rate Site gadobutrol (GADAVIST) injection 0.1 Given 07/10/2012 2:17 PM CDT 8 mLs mL/kg (Dosing Weight) 0.1 mL/kg, Intravenous, ONCE, On Tish 07/10/12 at 1330, For 1 dose, Supplied by, and administered by MRI. *HW* documented in this encounter Care Teams Crop Farm Workers Relationship Specialty Start Date End Date Edison Tam MD PCP - General Family Practice 09/21/11 07/22/[address] [facility] [address] [place] [address] documented as of this encounter
--- OUTSIDE RECORDS SUMMARY | 2021-10-24 12:06 | XMS_ITS | Encounter Summary ---
:1955 Author Organization [place] Address [address] [place] [id number] Care Team Providers Name Role Phone Edison Tam MD Primary Care Provider Reason for Visit Reason Onset Date Comments Previsit 06/02/2012 called patient she c onfirmed her appt on June 04 at 11am Encounter Details Date Type Department Care Team Description 06/02/2012 PRE VISIT Medicine GI - 1E Charan Salazar MD Previsit (called [address] patient she confirmed Building [place], [place] her appt on June 04 1st Floor, Clinic 1E [address] at 11am) [address] [place] [address] [place] [address] Social History Tobacco Use Types Packs/Day Years Used Date Former Smoker 1 18 Smokeless Tobacco: Former User Q uit: 09/20/1991 Alcohol Use Standard Drinks/Week Comments No 0 (1 standard drink = 0.6 oz pure alcoho l) Sex Assigned at Date Recorded Not on file documented as of this encounter Miscellaneous Notes Telephone Encounter - Apolinar Braden - 06/02/2012 1:32 PM CDT Date of Call: June 02, 2012 Reached Patient: Yes Confirm appointment and site verified: No Reason for Visit: crohns Past Treatment: ?? Provider: Martin Farrar ?? Location: Current Outpatient Prescriptions Medication ??? propranolol (INDERAL) 20 MG tablet ??? predniSONE (DELTASONE) 10 MG tablet ??? LOPERAMIDE HCL PO ??? multivitamin (THERA-PLUS) LIQD ??? [id number] ??? Carboxymethylcellulose Sodium (REFRESH TEARS OP) ??? Potassium Chloride CR 8 MEQ CPCR ??? Levothyroxine Sodium 50 MCG CAPS ??? rOPINIRole (REQUIP) 0.5 MG tablet ??? fluorouracil (EFUDEX) 5 % cream ??? PREDNISONE PO ??? zoledronic Acid (RECLAST) 5 MG/100ML SOLN ??? buPROPion (WELLBUTRIN SR) 150 MG 12 hr tablet ??? cyanocobalamin 1000 MCG/ML injection ??? guaiFENesin (MUCINEX) 600 MG 12 hr tablet ??? Menthol, Topical Analgesic, (ICY HOT EX) ??? ALPRAZolam (XANAX XR) 2 MG 24 hr tablet ??? Calcium Citrate-Vitamin D (CITRACAL + D [...] Profound lethargy ??? Tramadol Itching and Rash [facility] [address] [place] [address] [place] [address] Patient instructions: ?? Bring outside medical records, images, and/or studies ?? Arrive 15 minutes early ?? If health history form was received in the mail please bring to the appointment, or arrive early to complete health history form if patient did not receive. ?? documented in this encounter Plan of Treatment Not on filedocumented as of this encounter Visit Diagnoses Not on filedocumented in this encounter Care Teams Magnetic Resonance Imaging Coordinator Relationship Specialty Start Date End Date Edison Tam MD PCP - General Family Practice 09/21/11 07/22/[address] [place] [address] documented as of this encounter
--- OUTSIDE RECORDS SUMMARY | 2021-10-24 12:06 | XMS_ITS | Encounter Summary ---
:1955 Author Organization [facility] Address [address] [place] [id number] Care Team Providers Name Role Phone Edison Tam MD Primary Care Provider Reason for Visit Reason Comments Consult sinus problems Encounter Details Date Type Department Care Team Description 07/16/2012 Office Visit Ear, Nose and Throat Rose Marie Pittman MD [facility] [address] [facility] (Primary Dx) 8th Floor, Clinic [address] [facility] [address] [place], [place] [address] [place] [address] [facility] [address] (Work) [place] [address] Social History Tobacco Use Types Packs/Day Years Used Date Former Smoker 1 18 Smokeless Tobacco: Former User Q uit: 09/20/1991 Alcohol Use Standard Drinks/Week Comments No 0 (1 standard drink = 0.6 oz pure alcoho l) Sex Assigned at Date Recorded Not on file documented as of this encounter Patient Instructions Patient InstructionsJoWendi angeles RN - 07/16/2012 4:35 PM CDT Follow up with Dr Pittman as needed. documented in this encounter Progress Notes Tyra Pittman MD - 07/16/2012 4:19 PM CDT HISTORY OF PRESENT ILLNESS: Maria E is being seen in consultation from Dr. Edison Tam for chronicrhinitis and ear symptoms. She states she has had chronic rhinitis for many years. She takes an antihistamine for this. A new problem for her is that she has had some pain in her ears. This has been complicated currently by recent dental work and she is having some pain in the right ear in particular due to recent injection. She complains of sore throat. She is concerned that she may have thrush. Maribellhas read a book about Jhoana overgrowth and feels that she probably has candidiasis as well. She has known Crohn's disease, Yossi's thyroiditis and lupus. She also has a past medical history of anxiety and depression. She had a CT of the head back in November secondary to a fall that showed thather sinuses were clear. She describes some balance issues. When she tries to take a step forward every once in a while she will stumble slightly but she denies true vertigo symptoms. She states that her hearing is intact. The sore throat is from about the sternal notch downward. She is now following with Dr. Charan Salazar in [facility]. MEDICATIONS: I reviewed her medications list. PAST SURGICAL HISTORY: She has undergone colon resection, left ovary removal. She has had three surgeries related to her Crohn's disease. FAMILY HISTORY: Family history of cancer, asthma, alcohol and drug abuse, thyroid issues, multiple sclerosis and Sjogren's. SOCIAL HISTORY: She is a previous smoker. Does not drink alcohol. REVIEW OF SYSTEMS: Positive for appetite change, fatigue, sleep difficulties. She describes restlessleg syndrome. She has headaches, ear pain, nasal congestion, sore throat, trouble swallowing, hoarseness, coughing, breathing problems, chest pain, heartburn, diarrhea, stiff joints, back pain, possible allergies, rash, easy bruising. She describes additional health issues including gallstones, fibromyalgia, osteoporosis or renal mass. PHYSICAL EXAMINATION: Her examination today reveals an adult female in no acute distress. Head, face, scalp normal. Ears demonstrate completely normal canals, auricles and tympanic membranes. Her ear pain is definitely not due to an otologic source. She does have some tenderness in the temporomandibular joint (TMJ) area, right greater than left. Nasal exam demonstrates clear rhinorrhea bilaterally, very healthy nasal mucosa, minimal congestion today. In order to look for evidence of thrush, I examined her oral cavity and oropharynx. I see no obvious lesions consistent with thrush. Neck is palpated. She has no adenopathy, thyromegaly or salivary gland enlargement. ASSESSMENT AND PLAN: The patient's previous diagnosis is correct, that she has chronic rhinitis. Tabatha had a fairly recent CT scan that demonstrates normal sinus anatomy. The exam today is unremarkable. With regards to her ears, the ear pain is very likely due to referred pain from TMJ issues. She has had recent dental work and it could be that prior to the recent dental work her bite was slightly off which could have caused a flare of temporomandibular arthritis. Her balance issues do not appear to be otologic in nature. At this point, I am going to refer her back to her primary care. I certainly would be happy to see her back again if there are any questions that we could help with. She will be seeing Dr. Salazar soon and will talk to him about possible candidiasis. cc: Edison Tam MD Primary Care [facility] [address] documented in this encounter Nursing Notes 07/16/2012 2:45 PM CDT >> GAYLE SAMANIEGO CMA SatJuly 16, 2012 2:48 PM Patient presents with: Consult - sinus problems Gayle Samaniego CMA documented in this encounter Plan of Treatment Not on filedocumented as of this encounter Visit Diagnoses Diagnosis Chronic rhinitis - Primary documented in this encounter Care Teams Vp Hr Diversity Relationship Specialty Start Date End Date Edison Tam MD PCP - General Family Practice 09/21/11 07/22/14 [address] [facility] [address] [place] [address] documented as of this encounter
--- OUTSIDE RECORDS SUMMARY | 2021-10-24 12:06 | XMS_ITS | Encounter Summary ---
:1955 Author Organization [place] Address [address] [place] [address] Care Team Providers Name Role Phone Edison Tam MD Primary Care Provider Reason for Visit Reason Comments Consult Chrons Consult. Encounter Details Date Type Department Care Team Description 06/04/2012 Office Visit Medicine GI - 1E Charan Salazar, Crohn's disease of both smal l and large intestine with complication (H) (Primary Dx); Luke Shi MD Intestinovesical fistula; Building [address] [place] [address] Perianal fistula; 1st Floor, Clinic [address] Chronic diarrhea [address] [place] [address] [place], [place] [phone] (Work) [phone] Social History Tobacco Use Types Packs/Day Years Used Date Former Smoker 1 18 Smokeless Tobacco: Former User Q uit: 09/20/1991 Alcohol Use Standard Drinks/Week Comments No 0 (1 standard drink = 0.6 oz pure alcoho l) Sex Assigned at Date Recorded Not on file documented as of this encounter Last Filed Vital Signs Vital Sign Reading Time Taken Comments Blood Pressure 124/74 06/04/2012 11:06 AM CDT Pulse 86 06/04/2012 11:06 AM CDT Temperature 36.8 ??C (98.3 ??F) 06/04/2012 11:06 AM CDT Respiratory Rate - - Oxygen Saturation 96% 06/04/2012 11:06 AM CDT Inhaled Oxygen Concentration - - Weight 59.5 kg (131 lb 1.6 oz) 06/04/2012 11:06 AM CDT Height 156.2 cm (5' 1.5) 06/04/2012 11:06 AM CDT Body Mass Index 24.37 06/04/2012 11:06 AM CDT documented in this encounter Patient Instructions Patient InstructionsCharan Salazar MD - 06/04/2012 11:54 AM CDT I've included a brief summary of our discussion and care plan from today's visit below. Please review this information with your primary care provider. 1. Recommend routine studies including nutritional and inflammatory markers today. Will also check immunosuppression pre-screening tests today as well. 2. Recommend stool studies to evaluate for underlying malabsorption as well; please obtain the stoolspecimen containers and instructions from the lab today. 3. Recommend checking urine studies (UA + culture) to evaluate for possible acute on chronic bladderfistula as we discussed today. 4. Recommend MRI enterography with pelvic floor cuts to evaluate for chronic perianal + vaginal fistulas, as well as active small bowel Crohn's disease. 5. Depending on the above studies, will determine timing for colonoscopy (with a slow multi-day preparation to improve tolerance) +/- upper endoscopy as the next step in your evaluation. 6. Depending on the non-invasive and endoscopic findings, can address whether methotrexate (MTX) +/-certolizumab (CERT, Cimzia) could be options for treating your chronic fistulizing Crohn's disease. 7. Consider additional oral nutritional supplementation by using a fortified smoothie formula: Boost/Ensure + ice +fruit of your choice + soluble fiber powder (unflavored Benefiber), may also add yogurt/Kefir if you like. Use this at least 1-2 times per day as your baseline nutritional supplement in addition to your regular meals. 8. Return to GI Clinic with me in 6-8 weeks to review your progress, sooner if symptomatic. My clinic staff will be in contact with you to help make these arrangements. It was a pleasure seeing you in clinic today - please be in touch if there are any further questionsthat arise following today's visit. During business hours, you may reach my Falsework Builder at . For urgent/emergent questions after business hours, you may reach the on-call GI Fellowby contacting the [facility] thermo cementing folder operator at . Any benign/non-urgent test results are usually communicated via letter or [employer] message within 1-2weeks after completion. Urgent results (those that require a change in the previously-discussed careplan) are usually communicated via a phone call once available from our clinic staff to discuss the results and the next steps in your evaluation. I recommend signing up for [employer] access if you have not already done so and are comfortable with using a computer. This allows for online access to your lab results and also helps you communicate efficiently with my clinic should any questions arise in your care. Sincerely, Charan Salazar MD Machine F[employer] [facility] - Department of Medicine Division of Gastroenterology documented in this encounter Progress Notes Charan Salazar MD - 06/06/2012 8:27 AM CDT GI CLINIC VISIT - NEW PATIENT CC/REFERRING MD: Edison Tam REASON FOR CONSULTATION: [...] multiple other medical issues - presenting for evaluation of Crohn's disease, establish IBD care. Reports having 5-6 soft BM/day at baseline, denies any blood but does reportocc fecal incontinence. +intermittent pneumaturia and possible fecaluria (known chronic enterovesicular fistula per pt), +vaginal fecal leakage as well (known chronic rectovaginal fistula as well). Denies any N/V/F/C/DONNELLY or other const/syst/cardiopulmonary sxs, no BRBPR/melena/urinary changes, no unintentional wt loss or appetite/satiety changes. No other bowel/bladder habit changes, no dysphagia/odynophagia. No jaundice/icterus/pruritus, no acholic stools/steatorrhea, no jt pain/oral ulcer/rash/eye sxs noted. ROS: 10pt ROS performed and otherwise negative. PERTINENT PAST MEDICAL HISTORY: As noted above. PREVIOUS ABDOMINAL/GYNECOLOGIC SURGERIES: As noted above. PREVIOUS ENDOSCOPY: No recent evaluation. PERTINENT MEDICATIONS: - prednisone 10mg PO QDAY (chronic daily prednisone exposure for many years, will require very slow year-long taper + Endocrine evaluation if attempted) Medications reviewed with patient today, see Medication List/Assessment for details. No other NSAID/anticoagulation reported by patient. No other OTC/herbal/supplements reported by patient. SOCIAL HISTORY: Former smoker, o/w negative. FAMILY HISTORY: No known colon/panc/esophageal/other GI CA, no other HNPCC-related Griselda. No IBD/celiac, no other AI/liver/thyroid disease. PHYSICAL EXAMINATION (w/ clinic nurse present): Vitals reviewed, AFVSS Wt 131# today (stable) Gen: aaox3, cooperative, pleasant, not dyspneic/diaphoretic, nad HEENT: ncat, neck supple, no clad, normal op w/o ulcer/exudate, anicteric, mmm Mallampati Score 2 Resp/CV unremarkable Abd: +nabs, soft, nt, nd, no peritoneal s/s noted. No ecchymoses, +complicated large vertical surgical scar just R of midline (evidence of re-operation), no CVA/spinal tenderness noted. Ext: no c/c/e Skin: warm, perfused, no jaundice Neuro: grossly intact, no asterixis noted Perianal: +evidence of previously-healed perianal fistula/abscess defects surrounding the anus, +1-2mm hole at the 3 o'clock position (lithotomy) w/o expressible fluid or tenderness/bulging, rectal exam deferred per pt's request. PERTINENT STUDIES: Lytes/LFT/amylase/lipase normal, cr 0.89 alb 4.6, prealb 31 wbc 7.4, hgb 14.7, plt 264, mcv 93 ferritin 121, iron profile normal B12 297, folate 11.9 (could be c/w resected ileal disease +/- SIBO) Zn normal ESR/CRP negative UA: +trace protein, +Ca oxalate (c/w resected ileal disease), no WBC/RBC - awaiting cultures given h/o enterovesicular fistula. Random fecal fat/lytes/AT/elastase pending HAV/HBV serologies negative Q-Gold TB pending CXR and MRE + pelvic cuts ordered, pending ASSESSMENT/PLAN: 1. Complex chronic fistulizing ileocolonic + perianal Crohn's disease, chronic steroid dependence onno backbone maintenance therapy currently - warrants immunosuppression and nutrient deficiency screening along with further imaging to define post-surgical anatomy Recommend routine studies including nutritional/inflammatory markers as ordered today, along w/ immunosuppression pre-screening studies. Given pt's chronic multi-focal fistulizing disease (and concernsfor fecaluria/pneumaturia as well as vaginal vault fecal contents), recommend moving forward w/ MR enterography (pelvic cuts requested) to better define the post-surgical/fistulized anatomy; will checkUA/UC and stool studies along w/ this as well. Reviewed pt's extensive outside medical records from [place] ([phone]) which is notable for some partial anti-TNF response, no previous CERT exposure. Could consider role for utilizing SQ MTX + CERT as a strategy for treating her Crohn's disease, could then consider in-class (GOL) vs. lui-dh-esldx (KRISS/USTK or VEDO if available) alternatives depending onclinical response. Given pt's long-standing steroid exposure, would not expect that we'd be able to taper off of prednisone for at least 1yr (if able at all). Once the non-invasive evaluation has been completed, will likely need to move forward w/ colonoscopy +/- EGD as the next step to define ongoingdisease extent/activity. Recommend nutritional supplementation using the fortified smoothie recipe reviewed today, will continue to monitor closely. 2. Colorectal Cancer Screening Ongoing diagnostic evaluation, will readdress once acute issues have stabilized. RTC 6-8 weeks. Thank you for this consultation. It was a pleasure to participate in the care of this patient; please contact us with any further questions. A total of 45 minutes was spent with this patient, 50% of which was counseling regarding the above delineated issues. Charan Salazar MD [facility] [facility] - Department of Medicine Division of Gastroenterology documented in this encounter Plan of Treatment Scheduled Orders Name Type Priority Associated Diagnoses Order S chedule X-ray Chest 2 vws* Imaging Routine Crohn's disease of bot h small Ordered: 06/04/2012 and large intestine with complication (H) Intestinovesical fistula Perianal fistula Chronic diarrhea documented as of this encounter Procedures Procedure Name Priority Date/Time Associated Comments Diagnosis M TUBERCULOSIS BY Routine 06/04/2012 12:51 Crohn's disease of Results for this QUANTIFERON PM CDT both small and procedure are in large intestine the results with complication section. (H) Intestinovesical fistula Perianal fistula Chronic diarrhea HEPATITIS A ANTIBODY Routine 06/04/2012 12:50 Crohn's disease of Results for this PM CDT both small and procedure are in large intestine the results with complication section. (H) Intestinovesical fistula Perianal fistula Chronic diarrhea ZINC Routine 06/04/2012 12:50 Crohn's disease of Resul ts for this PM CDT both small and procedure are in large intestine the results with complication section. (H) Intestinovesical fistula Perianal fistula Chronic diarrhea BILIRUBIN CONJUGATED AND Routine 06/04/2012 12:50 Crohn's dise ase of Results for this DELTA PM CDT both small and procedure are in large intestine the results with complication section. (H) Intestinovesical fistula Perianal fistula Chronic diarrhea CBC WITH PLATELETS & Routine 06/04/2012 12:50 Crohn's disease of Results for this DIFFERENTIAL PM CDT both small and procedure are in large intestine the results with complication section. (H) Intestinovesical fistula Perianal fistula Chronic diarrhea VITAMIN K Routine 06/04/2012 12:50 Crohn's disease of Resul ts for this PM CDT both small and procedure are in large intestine the results with complication section. (H) Intestinovesical fistula Perianal fistula Chronic diarrhea VITAMIN E Routine 06/04/2012 12:50 Crohn's disease of Resul ts for this PM CDT both small and procedure are in large intestine the results with complication section. (H) Intestinovesical fistula Perianal fistula Chronic diarrhea VITAMIN A Routine 06/04/2012 12:50 Crohn's disease of Resul ts for this PM CDT both small and procedure are in large intestine the results with complication section. (H) Intestinovesical fistula Perianal fistula Chronic diarrhea TISSUE TRANSGLUTAMINASE Routine 06/04/2012 12:50 Crohn's disea se of Results for this YRN IGA AND IGG PM CDT both small and procedure are in large intestine the results with complication section. (H) Intestinovesical fistula Perianal fistula Chronic diarrhea PREALBUMIN Routine 06/04/2012 12:50 Crohn's disease of Resul ts for this PM CDT both small and procedure are in large intestine the results with complication section. (H) Intestinovesical fistula Perianal fistula Chronic diarrhea MAGNESIUM Routine 06/04/2012 12:50 Crohn's disease of Resul ts for this PM CDT both small and procedure are in large intestine the results with complication section. (H) Intestinovesical fistula Perianal fistula Chronic diarrhea LIPASE Routine 06/04/2012 12:50 Crohn's disease of Resul ts for this PM CDT both small and procedure are in large intestine the results with complication section. (H) Intestinovesical fistula Perianal fistula Chronic diarrhea IRON AND IRON BINDING Routine 06/04/2012 12:50 Crohn's disease of Results for this CAPACITY PM CDT both small and procedure are in large intestine the results with complication section. (H) Intestinovesical fistula Perianal fistula Chronic diarrhea HEPATITIS B SURFACE Routine 06/04/2012 12:50 Crohn's disease o f Results for this ANTIBODY PM CDT both small and procedure are in large intestine the results with complication section. (H) Intestinovesical fistula Perianal fistula Chronic diarrhea HEPATITIS B SURFACE Routine 06/04/2012 12:50 Crohn's disease o f Results for this ANTIGEN PM CDT both small and procedure are in large intestine the results with complication section. (H) Intestinovesical fistula Perianal fistula Chronic diarrhea HEPATITIS B CORE Routine 06/04/2012 12:50 Crohn's disease of R esults for this ANTIBODY PM CDT both small and procedure are in large intestine the results with complication section. (H) Intestinovesical fistula Perianal fistula Chronic diarrhea FOLATE Routine 06/04/2012 12:50 Crohn's disease of Resul ts for this PM CDT both small and procedure are in large intestine the results with complication section. (H) Intestinovesical fistula Perianal fistula Chronic diarrhea FERRITIN Routine 06/04/2012 12:50 Crohn's disease of Resul ts for this PM CDT both small and procedure are in large intestine the results with complication section. (H) Intestinovesical fistula Perianal fistula Chronic diarrhea ERYTHROCYTE Routine 06/04/2012 12:50 Crohn's disease of Resul ts for this SEDIMENTATION RATE AUTO PM CDT both small and pr ocedure are in large intestine the results with complication section. (H) Intestinovesical fistula Perianal fistula Chronic diarrhea CRP INFLAMMATION Routine 06/04/2012 12:50 Crohn's disease of R esults for this PM CDT both small and procedure are in large intestine the results with complication section. (H) Intestinovesical fistula Perianal fistula Chronic diarrhea COMPREHENSIVE METABOLIC Routine 06/04/2012 12:50 Crohn's disea se of Results for this PANEL PM CDT both small and procedure are in large intestine the results with complication section. (H) Intestinovesical fistula Perianal fistula Chronic diarrhea AMYLASE Routine 06/04/2012 12:50 Crohn's disease of Resul ts for this PM CDT both small and procedure are in large intestine the results with complication section. (H) Intestinovesical fistula Perianal fistula Chronic diarrhea VITAMIN B12 Routine 06/04/2012 12:50 Crohn's disease of Resul ts for this PM CDT both small and procedure are in large intestine the results with complication section. (H) Intestinovesical fistula Perianal fistula Chronic diarrhea ROUTINE UA WITH Routine 06/04/2012 12:36 Crohn's disease of Re sults for this MICROSCOPIC REFLEX TO PM CDT both small and proc edure are in CULTURE large intestine the results with complication section. (H) Intestinovesical fistula Perianal fistula Chronic diarrhea documented in this encounter Results M Tuberculosis by Quantiferon (06/04/2012 12:51 PM CDT) Patholo gist Method Time Signature M Tuberculosis Negative NEG [facility] Result [facility] M Tuberculosis 0.01 IU/mL [facility] Antigen Value [facility] Comment: This is a qualitative test. ??The TB ant igen IU/mL value is required for documentation on certain government rep orting forms but this value should not be used to monitor disease progression or response to therapy. Diagnosing or excluding tuberculosis di sease, and assessing the probability of LTBI, require a combination of epidemio logical, historical, medical and diagnostic findings that should be take n into account when interpreting QuantiFERON TB results. Specimen Anatomical Collection Method Collection Time Receive d Time (Source) Location / / Volume Laterality Blood specimen 06/04/2012 12:51 3 (specimen) PM CDT 12:52 PM CDT Charan Salazar MD LAB - BLOOD ORDERABLES Performing Organization Address City/[facility] Code Phon e Number [address] LABS Hepatitis A antibody (06/04/2012 12:50 PM CDT) Analysis Performed At Patho logist Time Signature Hepatitis A Negative [facility] Antibody [facility] Specimen Anatomical Collection Method Collection Time Receive d Time (Source) Location / / Volume Laterality Blood specimen 06/04/2012 12:50 3 (specimen) PM CDT 12:52 PM CDT Charan Salazar MD LAB - BLOOD ORDERABLES Performing Organization Address City/[facility]/ZIP Code Phon e Number [facility] [address] [place], [place] [id number] [place] [address] LABS Hepatitis B surface antigen (06/04/2012 12:50 PM CDT) Analysis Performed At Patho logist Time Signature Hep B Surface Negative NEG [facility] Agn [facility] Specimen Anatomical Collection Method Collection Time Receive d Time (Source) Location / / Volume Laterality Blood specimen 06/04/2012 12:50 3 (specimen) PM CDT 12:52 PM CDT Charan Salazar MD LAB - BLOOD ORDERABLES Performing Organization Address City/[facility]/ZIP Code Phon e Number [facility] [address] LABS Hepatitis B surface antibody (06/04/2012 12:50 PM CDT) P athologist Signature Hep B Surface 1.5 [facility] LABS Comment: Negative, No antibody detected when the value is less than 5.0 mlU/mL. Specimen Anatomical Collection Method Collection Time Receive d Time (Source) Location / / Volume Laterality Blood specimen 06/04/2012 12:50 3 (specimen) PM CDT 12:52 PM CDT Charan Salazar MD LAB - BLOOD ORDERABLES Performing Organization Address City/[facility]/ZIP Code Phon e Number [address] LABS Hepatitis B core antibody (06/04/2012 12:50 PM CDT) Analysis Performed At Patho logist Time Signature Hepatitis B Negative NEG [facility] LABS Specimen Anatomical Collection Method Collection Time Receive d Time (Source) Location / / Volume Laterality Blood specimen 06/04/2012 12:50 3 (specimen) PM CDT 12:52 PM CDT Charan Salazar MD LAB - BLOOD ORDERABLES Performing Organization Address City/[facility]/ZIP Code Phon e Number [address] LABS Vitamin K (06/04/2012 12:50 PM CDT) athologist Signature Vitamin K 0.99 [facility] LAB[facility] Comment: Reference range: 0.10 to 2.20 Unit: ng/mL (Note) Performed by [facility], [address] [place] [id number] [email or web address], Dodie Cotter MD, Lab. Director Specimen Anatomical Collection Method Collection Time Receive d Time (Source) Location / / Volume Laterality Blood specimen 06/04/2012 12:50 3 (specimen) PM CDT 12:52 PM CDT Charan Salazar MD LAB - BLOOD ORDERABLES Performing Organization Address City/[facility]/ZIP Code Phon e Number [address] LABS (ABNORMAL) Vitamin E (06/04/2012 12:50 PM CDT) athologist Signature Vitamin E 18.9 (H) [facility] LABS Comment: Reference range: 5.5 to 18.0 Unit: mg/L Vitamin E Gamma 1.3 [facility] LAB[facility] Comment: Reference range: 0.0 to 6.0 Unit: mg/L (Note) Performed by [facility], [address] [facility] [place] [address] [email or web address], Dodie Cotter MD, Lab. Director Specimen Anatomical Collection Method Collection Time Receive d Time (Source) Location / / Volume Laterality Blood specimen 06/04/2012 12:50 3 (specimen) PM CDT 12:52 PM CDT Charan Salazar MD LAB - BLOOD ORDERABLES Performing Organization Address [facility] Phon e Number [address] LABS Vitamin A (06/04/2012 12:50 PM CDT) athologist Signature Vitamin A 0.80 [facility] LAB[facility] Comment: Reference range: 0.30 to 1.20 Unit: mg/L Retinol Palmitate 0.02 [facility] Comment: Reference range: 0.00 to 0.10 Unit: mg/L Vitamin A Interp Normal [facility] LAB[facility] (Note) Performed by [facility], [address] [facility] [place] [address] www.[email or web address], Dodie Cotter MD, Lab. Director Specimen Anatomical Collection Method Collection Time Receive d Time (Source) Location / / Volume Laterality Blood specimen 06/04/2012 12:50 3 (specimen) PM CDT 12:52 PM CDT Charan Salazar MD LAB - BLOOD ORDERABLES Performing Organization Address [facility] Phon e Number [address] LABS Magnesium (06/04/2012 12:50 PM CDT) athologist Signature Magnesium 2.0 1.6 - 2.3 [facility] mg/dL [place] LABS Specimen Anatomical Collection Method Collection Time Receive d Time (Source) Location / / Volume Laterality Blood specimen 06/04/2012 12:50 3 (specimen) PM CDT 12:52 PM CDT Charan Salazar MD LAB - BLOOD ORDERABLES Performing Organization Address City/[facility]/ZIP Code Phon e Number [address] LABS Zinc [[id number]] (06/04/2012 12:50 PM CDT) athologist Signature Zinc 79 [facility] LABS Comment: Reference range: 60 to 120 Unit: ug/dL (Note) INTERPRETIVE INFORMATION: Zinc, Serum Circulating zinc concentrations are depe ndent on albumin status and are depressed with malnutriti on. Zinc may also be lowered with infection, inflammation, stress, oral contraceptives, and . Zinc may be elevated with zinc supplementation or fasting. Elevate d zinc concentrations may interfere with copper absorption. Performed by [facility], [address] [place] [id number] www.[email or web address], Dodie Cotter MD, Lab. Director Specimen Anatomical Collection Method Collection Time Receive d Time (Source) Location / / Volume Laterality Blood specimen 06/04/2012 12:50 3 (specimen) PM CDT 12:52 PM CDT Charan Salazar MD LAB - BLOOD ORDERABLES Performing Organization Address City/[facility]/ZIP Code Phon e Number [address] LABS Vitamin B12 [[id number]] (06/04/2012 12:50 PM CDT) athologist Signature Vitamin B12 297 >210 pg/mL [facility] LAB[facility] Comment: Interp: [phone] = Normal Specimen Anatomical Collection Method Collection Time Receive d Time (Source) Location / / Volume Laterality Blood specimen 06/04/2012 12:50 3 (specimen) PM CDT 12:52 PM CDT Charan Salazar MD LAB - BLOOD ORDERABLES Performing Organization Address City/[facility]/ZIP Code Phon e Number [facility] [address] LABS Tissue transglutaminase yrn IgA and IgG [[id number]] (06/04/2012 12:50 PM CDT) Patholo gist Method Time Signature Tissue <1.0 0 - 3.9 [facility] Transglutaminase Interpretation: ??Negative U/mL [facility] IgA [facility] LABS Tissue 1.0 0 - 5.9 [facility] Transglutaminase Yrn U/mL [facility] IgG [facility] LAB[facility] Comment: Interpretation: Negative Specimen Anatomical Collection Method Collection Time Receive d Time (Source) Location / / Volume Laterality Blood specimen 06/04/2012 12:50 3 (specimen) PM CDT 12:52 PM CDT Charan Salazar MD LAB - BLOOD ORDERABLES Performing Organization Address City/[facility]/ZIP Code Phon e Number [facility] [address] LABS Prealbumin [[id number]] (06/04/2012 12:50 PM CDT) P athologist Signature Prealbumin 31 15 - 45 [facility] mg/dL CAMPUS LABS Specimen Anatomical Collection Method Collection Time Receive d Time (Source) Location / / Volume Laterality Blood specimen 06/04/2012 12:50 3 (specimen) PM CDT 12:52 PM CDT Charan Salazar MD LAB - BLOOD ORDERABLES Performing Organization Address City/State/ZIP Code Phon e Number [facility] [address] LABS Lipase [[id number]] (06/04/2012 12:50 PM CDT) P athologist Signature Lipase 234 20 - 250 [facility] LABS Specimen Anatomical Collection Method Collection Time Receive d Time (Source) Location / / Volume Laterality Blood specimen 06/04/2012 12:50 3 (specimen) PM CDT 12:52 PM CDT Charan Salazar MD LAB - BLOOD ORDERABLES Performing Organization Address City/State/ZIP Code Phon e Number [facility] [address] LABS Iron and iron binding capacity [[id number]] (06/04/2012 12:50 PM CDT) athologist Signature Iron 63 35 - 180 [facility] ug/dL [place] [facility] Iron Binding 324 240 - 430 [facility] Cap ug/dL [place] [facility] Iron Saturation 19 15 - 46 % [facility] Specimen Anatomical Collection Method Collection Time Receive d Time (Source) Location / / Volume Laterality Blood specimen 06/04/2012 12:50 3 (specimen) PM CDT 12:52 PM CDT Charan Salazar MD LAB - BLOOD ORDERABLES Performing Organization Address City/State/ZIP Code Phon e Number [facility] [address] LABS Folate [[id number]] (06/04/2012 12:50 PM CDT) athologist Signature Folate 11.9 >3.3 ng/mL [facility] LABS Comment: Interp: >5.4 ng/mL = Normal Specimen Anatomical Collection Method Collection Time Receive d Time (Source) Location / / Volume Laterality Blood specimen 06/04/2012 12:50 3 (specimen) PM CDT 12:52 PM CDT Charan Salazar MD LAB - BLOOD ORDERABLES Performing Organization Address City/State/ZIP Code Phon e Number [facility] [address] LABS Ferritin [[id number]] (06/04/2012 12:50 PM CDT) athologist Signature Ferritin 121 10 - 300 [facility] ng/mL CAMPUS LABS Specimen Anatomical Collection Method Collection Time Receive d Time (Source) Location / / Volume Laterality Blood specimen 06/04/2012 12:50 3 (specimen) PM CDT 12:52 PM CDT Charan Salazar MD LAB - BLOOD ORDERABLES Performing Organization Address City/State/ZIP Code Phon e Number [address] LABS Erythrocyte sedimentation rate auto [[id number]] (06/04/2012 12:50 PM CDT) athologist Signature Sed Rate 4 0 - 30 mm/h [facility] LABS Specimen Anatomical Collection Method Collection Time Receive d Time (Source) Location / / Volume Laterality Blood specimen 06/04/2012 12:50 3 (specimen) PM CDT 12:52 PM CDT Charan Salazar MD LAB - BLOOD ORDERABLES Performing Organization Address City/State/ZIP Code Phon e Number [facility] [address] LABS CRP inflammation [[id number]] (06/04/2012 12:50 PM CDT) Analysis Performed At Patho logist Time Signature CRP Inflammation <5.0 0.0 - 8.0 [facility] mg/L [facility] LABS Specimen Anatomical Collection Method Collection Time Receive d Time (Source) Location / / Volume Laterality Blood specimen 06/04/2012 12:50 3 (specimen) PM CDT 12:52 PM CDT Charan Salazar MD LAB - BLOOD ORDERABLES Performing Organization Address City/[facility]/ZIP Code Phon e Number [facility] [address] LABS Comprehensive metabolic panel [[id number]] (06/04/2012 12:50 PM CDT) P athologist Signature Sodium 144 133 - 144 [facility] mmol/L [place] [facility] Potassium 4.4 3.4 - 5.3 [facility] mmol/L [place] [facility] Chloride 105 94 - 109 [facility] mmol/L [place] [facility] Carbon Dioxide 22 20 - 32 [facility] mmol/L [place] [facility] Anion Gap 17 6 - 17 [facility] mmol/L [place] [facility] Glucose 82 60 - 99 [facility] mg/dL CAMPUS LABS Comment: Non Fasting Urea Nitrogen 14 7 - 30 mg/dL [facility] LABS Creatinine 0.89 0.52 - 1.04 mg/dL [facility] [place] GFR Estimate 65 >60 mL/min/1.7m2 [facility] GFR Estimate If Black 79 >60 mL/min/1.7m2 F [facility] LABS Calcium 8.8 8.5 - 10.4 mg/dL [facility] Bilirubin Total 0.3 0.2 - 1.3 mg/dL [facility]I [facility] Albumin 4.6 3.3 - 4.9 g/dL [facility] Protein Total 7.7 6.8 - 8.8 g/dL [facility] UN[facility] [place] [facility] Alkaline Phosphatase 77 40 - 150 U/L [facility] ALT 23 0 - 50 [facility]/L [facility] LABS AST 32 0 - 45 U/L [facility] LABS Specimen Anatomical Collection Method Collection Time Receive d Time (Source) Location / / Volume Laterality Blood specimen 06/04/2012 12:50 3 (specimen) PM CDT 12:52 PM CDT Charan Salazar MD LAB - BLOOD ORDERABLES Performing Organization Address City/State/ZIP Code Phon e Number [facility] 500 [place], [place] [id number] [place] [address] LABS (ABNORMAL) CBC with platelets differential [[id number]] (06/04/2012 12:50 PM CDT) [facility] gist Method Time Signature WBC 7.4 4.0 - [facility] 11.0 [facility] 10e9/L [place] [facility] RBC Count 4.91 3.8 - 5.2 [facility] 10e12/L [facility] LABS Hemoglobin 14.7 11.7 - [facility] 15.7 g/dL [facility] LABS Hematocrit 45.7 35.0 - [facility] 47.0 % [facility] LABS MCV 93 78 - 100 [facility] fl [facility] LABS MCH 29.9 26.5 - [facility] 33.0 pg [facility] LABS MCHC 32.2 31.5 - [facility] 36.5 g/dL [facility] LABS RDW 12.5 10.0 - [facility] 15.0 % [facility] LABS Platelet Count 264 150 - 450 [facility] 10e9/L [facility] LABS Diff Method Automated [facility] Method [facility] LABS % Neutrophils 78.3 (H) 40 - 75 % [facility] LABS % Lymphocytes 12.4 (L) 20 - 48 % [facility] LABS % Monocytes 7.6 0 - 12 % [facility] LABS % Eosinophils 0.5 0 - 6 % [facility] LAB[facility] % Basophils 0.8 0 - 2 % [facility] LABS % Immature 0.4 0 - 0.4 % [facility] Granulocytes [facility] LABS Absolute 5.8 1.6 - 8.3 [facility] Neutrophil 10e9/L [facility] LABS Absolute 0.9 0.8 - 5.3 [facility] Lymphocytes 10e9/L [facility] Absolute 0.6 0.0 - 1.3 [facility] Monocytes 10e9/L [facility] Absolute 0.0 0.0 - 0.7 [facility] Eosinophils 10e9/L [facility] Absolute 0.1 0.0 - 0.2 [facility] Basophils 10e9/L [facility] Abs Immature 0.0 0 - 0.03 [facility] Granulocytes 10e9/L [place] [facility] Specimen Anatomical Collection Method Collection Time Receive d Time (Source) Location / / Volume Laterality Blood specimen 06/04/2012 12:50 3 (specimen) PM CDT 12:52 PM CDT Charan Salazar MD LAB - BLOOD ORDERABLES Performing Organization Address City/[facility]/ZIP Code Phon e Number [facility] [address] LABS Bilirubin Fractionated [[id number]] (06/04/2012 12:50 PM CDT) P athologist Signature Bilirubin 0.0 0.0 - 0.3 [facility] Conjugated mg/dL CAMPUS LABS Bilirubin Delta 0.1 0.0 - 0.4 [facility] UNIVERSIT Y mg/dL CAMPUS LABS Specimen Anatomical Collection Method Collection Time Receive d Time (Source) Location / / Volume Laterality Blood specimen 06/04/2012 12:50 3 (specimen) PM CDT 12:52 PM CDT Charan Salazar MD LAB - BLOOD ORDERABLES Performing Organization Address City/State/ZIP Code Phon e Number [facility] [address] LABS Amylase [[id number]] (06/04/2012 12:50 PM CDT) P athologist Signature Amylase 73 30 - 110 [facility] Specimen Anatomical Collection Method Collection Time Receive d Time (Source) Location / / Volume Laterality Blood specimen 06/04/2012 12:50 3 (specimen) PM CDT 12:52 PM CDT Charan Salazar MD LAB - BLOOD ORDERABLES Performing Organization Address City/State/ZIP Code Phon e Number [facility] [address] LABS (ABNORMAL) Routine UA with Micro Reflex to Culture (06/04/2012 12:36 PM CDT) [facility] gist Method Time Signature Color Urine Yellow [facility] LABS Appearance Urine Slightly [facility] Cloudy [facility]S Glucose Urine Negative NEG mg/dL [facility] LABS Bilirubin Urine Negative NEG [facility] LABS Ketones Urine Negative NEG mg/dL [facility] Specific [place] 1.018 1.003 - [facility] Urine 1.035 [facility] Blood Urine Negative NEG [facility] pH Urine 5.0 5.0 - 7.0 [facility] pH [facility] Protein Albumin 10 (A) NEG mg/dL [facility] Urine [facility] Urobilinogen Normal 0.0 - 2.0 [facility] mg/dL mg/dL [facility] Nitrite Urine Negative NEG [facility] Leukocyte Negative NEG [facility] Esterase Urine [facility] [place] [facility] Source Midstream [facility] Urine [facility] LABS WBC Urine <1 0 - 2 [facility] /HPF [facility] RBC Urine 2 0 - 2 [facility] /HPF [facility] Squamous <1 0 - 1 [facility] Epithelial /HPF /HPF [facility] Urine [facility]AMP[facility] LABS Mucous Urine Present (A) NEG /LPF [facility] LAB[facility] Hyaline Casts 20 (H) 0 - 2 [facility] /LPF [facility] Calcium Oxalate Moderate (A) NEG /HPF [facility]ITY [facility] LABS Specimen Anatomical Collection Method Collection Time Receive d Time (Source) Location / / Volume Laterality Urine specimen 06/04/2012 12:36 06/04/ 3 (specimen) PM CDT 12:37 PM CDT Charan Salazar MD LAB - URINE ORDERABLES Performing Organization Address City/State/ZIP Code Phon e Number [address] [address] [facility] LABS documented in this encounter Visit Diagnoses Diagnosis Crohn's disease of both small and large intestine with complication (H) - Primary 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
--- OUTSIDE RECORDS SUMMARY | 2021-10-24 12:06 | XMS_ITS | Encounter Summary ---
:1955 Author Organization [facility] Address [address] [place] [address] Care Team Providers Name Role Phone Edison Tam MD Primary Care Provider Reason for Visit Reason Onset Date Comments Erroneous encounter-disregard 07/28/2012 Encounter Details Date Type Department Care Team Description 07/28/2012 Refill Medicine GI - 1E Charan Salazar MD Erroneous [address] encounter-disregard [place], [place] 1st Floor, Clinic [address] [place] [address] [place] [address] Social History Tobacco Use Types [...] on filedocumented in this encounter Care Teams Produce Runner Relationship Specialty Start Date End Date Edison Tam MD PCP - General Family Practice 09/21/11 07/22/14 909 [facility] [address] [place] [address] documented as of this encounter
--- OUTSIDE RECORDS SUMMARY | 2021-10-24 12:06 | XMS_ITS | Encounter Summary ---
:1955 Author Organization [place] Address [facility] [place] [address] Care Team Providers Name Role Phone Edison Tam MD Primary Care Provider Reason for Visit Auth/Cert - Closed Specialty Diagnoses / Procedures Referred By Contact Refer red To Contact Gastroenterology Diagnoses Regional enteritis Uu Endoscopy Procedures COLONOSCOPY COMBINED ESOPHAGOSCOPY, GASTROSCOPY, DUODENOSCOPY (EGD) [address] [place] [address] Phone: Referral ID Status Reason Start Date Expiration Date Visits Requ ested Visits Authorized [id number] Closed 1 1 Encounter Details Date Type Department Care Team Description 08/26/2012 Surgery [facility] Jolanta Velázquez MD SIGMOIDOSCOPY, Endoscopy [address] [facility] FLEXIBLE, WITH BIOPSY [address] [place] [address] [phone] (Wo rk) Surgery Details Date/Time Status Location OR Service Patient Class Case Case Trauma Class Type Case? 08/26/12 1:00 Posted UU GI UU GI Gastroenterology Outpatient PM 02 Panel 1 Procedure [facility] Anes Op Region Wound Class Commen ts SIGMOIDOSCOPY, FLEXIBLE, WITH N/A Conscious Sedation BIOPSY Panel 2 Procedure [facility] Anes Op Region Wound Class Commen ts ESOPHAGOGASTRODUODENOSCOPY, N/A Conscious Sedation Esophagus WITH BIOPSY Surgeon Surgeon Role Service Panel Jolanta Velázquez MD Primary Gastroenterology 1 Jolanta Velázquez MD Primary Gastroenterology 2 documented in this encounter Social History Tobacco [...] w/ 27 gauge needles, 1 inch length [id number] Might-a mins 0 2013 spectrum once daily [...] vitamin D (ERGOCALCIFEROL) Take 50,000 0 12/03/2012 [id number] UNIT capsule Units by mouth. 2 times [...] Component Value Ref Test Analysis Performed At [facility] [place] Method Time Signature Copath Report Patient Name: MARIA E COLEY MR#: [id number] Specimen #: [id number] Collected: 08/26/2012 Received: 08/26/2012 Reported: 08/27/2012 23:46 [...] Electronically signed out by: Axel Vanegas M.D., [facility] CLINICAL HISTORY: The patient is a 56-year-old [...] Axel Vanegas MD/halley 08/27/2012 TESTING LAB LOCATION: [facility], [address] ?? [id number] COLLECTION SITE: Client: [facility] Location: [facility] (B) Specimen Anatomical Collection Method Collection Time Receive d Time (Source) Location / / Volume Laterality 08/26/2012 2:03 PM 3 5:15 CDT PM CDT Jolanta KENYON - BRIAN Performing Organization Address City/State/ZIP Code Phon e Number [facility] FLEXIBLE SIGMOIDOSCOPY (08/26/2012 12:32 PM CDT) [facility] Method Time Signature Flex Sig [facility] RADIOLOGY [address] [place] [address] [phone] ? End oscopy Department RESULTS Patient Name: Maria E Whitmore ie ?Procedure Date: 08/26/2012 12:06:SS A6/P6 ? Date of : 1955 ?Admit Type: Outpatient ? Age: 56 ? Room: [facility]U -Endoscopy ? Gender: Female ?Note Status: Finalized ? Attending MD: Jolanta Velázquez MD ? 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 ?- Return to IBD Clinic ([facility]) as previously ?scheduled, will discuss timing for re- trial of SQ ?methotrexate at that visit. ?- The findings and recommendations were discussed ?with the patient. ? Electronically signed by Michael Velázquez Jolanta Velázquez MD Signed Date: 08/26/2012 14:06:SS A6/P6 Number of Addenda: 0 I was [...] Component Value Ref Test Analysis Performed At [facility] Range Method Time Signature [facility] [place] RADIOLOGY Endoscopy [address] [place] [address] [phone] ? Endoscopy Department RESULTS Patient Name: Maria E Whitmore olamide ?Procedure Date: 08/26/2012 12:06:SS A6/P6 ? Date [...] Return to IBD Clinic ([facility]) as previously ?scheduled. ?- The findings and recommendations were discussed ?with the patient. ? Electronically signed by Michael Velázquez Jolanta Velázquez MD Signed Date: 08/26/2012 14:06:SS A6/P6 Number of Addenda: 0 I was [...] MAR Action Action Date Dose Rate Site benzocaine Given 08/26/2012 2:10 PM CDT 1 applicator (HURRICAINE/TOPEX) 20 % spray PRN, moderate pain, Starting on Sat08/26/12 at 1410, Intra-procedure fentaNYL (SUBLIMAZE) injection Given 08/26/2012 2:10 PM CDT 25 mcg PRN, moderate to severe pain, Starting on Sat08/26/12 at 1331, Intra-procedure Given 08/26/2012 1:37 PM CDT 25 mcg Given 08/26/2012 1:35 PM CDT 25 mcg midazolam (VERSED) injection Given 08/26/2012 2:10 PM CDT 1 mg PRN, anxiety, Starting on Sat08/26/12 at 1331, Intra-procedure Given 08/26/2012 1:42 PM CDT 1 mg Given 08/26/2012 1:31 PM CDT 1 mg documented in this encounter Active and Recently Administered Medications Times are shown in CDT. PRN Medication Order 08/24/2012 08/25/2012 08/26/2012 benzocaine (HURRICAINE/TOPEX) 20 % spray (CANCELED) 1410 (Given - Provider: Jolanta Velázquez MD) PRN, moderate pain, Starting Sat08/26/12 at 1410, Intra-procedur e fentaNYL (SUBLIMAZE) injection (CANCELED) 1331 (Given - Provider: Elise Whipple RN)1335 (Given - Provider: Elise Whipple RN)1337 (Given - Provider: Elise Whipple RN)1410 (Given - Provider: Elise Whipple RN) PRN, Starting Sat08/26/12 at 1331, moderate to severe pain, Intr a-procedure midazolam (VERSED) injection (CANCELED) 1331 (Given - Provider: Elise Whipple RN)1342 (Given - Provider: Elise Whipple RN)1410 (Given - Provider: Elise Whipple RN) PRN, Starting Sat08/26/12 at 1331, anxiety, Intra-procedure documented in this encounter Care Teams Cooler Room Worker Relationship Specialty Start Date End Date Edison Tam MD PCP - General Family Practice 09/21/11 07/22/14 909 [facility] 4 [place] [address] documented as of this encounter
--- OUTSIDE RECORDS SUMMARY | 2021-10-24 12:06 | XMS_ITS | Encounter Summary ---
:1955 Author Organization [facility] Address [address] [place] [id number] Care Team Providers Name Role Phone Edison Tam MD Primary Care Provider Reason for Visit Reason Comments RECHECK patient here for follow up o n crohns Encounter Details Date Type Department Care Team Description 07/25/2012 Office Visit Medicine GI - 1E Charan Salazar MD Inflammatory bowel [address] disease (Crohn's Building [place], [place] disease) (H) (Primary 1st Floor, Clinic [id number] Dx) [address] [place] [address] SE (Work) [place] [address] Social History Tobacco Use Types Packs/Day Years Used Date Former Smoker 1 18 Smokeless Tobacco: Former User Q uit: 09/20/1991 Alcohol Use Standard Drinks/Week Comments No 0 (1 standard drink = 0.6 oz pure alcoho l) Sex Assigned at Date Recorded Not on file documented as of this encounter Last Filed Vital Signs Vital Sign Reading Time Taken Comments Blood Pressure 113/54 07/25/2012 9:59 AM CDT Pulse 89 07/25/2012 9:59 AM CDT Temperature 36.6 ??C (97.9 ??F) 07/25/2012 9:59 AM CDT Respiratory Rate - - Oxygen Saturation 97% 07/25/2012 9:59 AM CDT Inhaled Oxygen Concentration - - Weight 55 kg (121 lb 4.8 oz) 07/25/2012 9:59 AM CDT Height 157.5 cm (5' 2) 07/25/2012 9:59 AM CDT Body Mass Index 22.19 07/25/2012 9:59 AM CDT documented in this encounter Patient Instructions Patient InstructionsCharan Salazar MD - 07/25/2012 10:27 AM CDT I've included a brief summary of our discussion and care plan from today's visit below. Please review this information with your primary care provider. 1. I'm very pleased with your nutritional evaluation and MRI findings thus far - overall your nutritional reserves are excellent, and we see no evidence of active fistulization or inflammation on your MRI. 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 2. Continue your mindful dietary/lifestyle modifications as we reviewed today, including your regular exercise as tolerated and empiric gluten/refined sugar restrictions. 3. Obtain your chest X-ray today as we discussed again today, will likely move forward with initiating methotrexate (MTX) as the next step in your Crohn's management (you tolerated this well before, and provides some overlap for your other autoimmune disorders). Discussed the risks/benefits/alternatives in detail with you today, will advise further regarding timing of this after your X-ray returns. 4. Continue prednisone 10mg daily for now, will readdress potential tapering of steroid dependence in a few months once your MTX has fully established its effect. Will likely require Endocrine assistance to help with this, will discuss this further when the taper becomes imminent/necessary. 5. Return to GI Clinic with me in 4-6 weeks to review your progress, sooner if symptomatic. My clinic staff will be in contact with you to help make this appointment. It was a pleasure seeing you in clinic today - please be in touch if there are any further questionsthat arise following today's visit. During business hours, you may reach my Roll Filler at . For urgent/emergent questions after business hours, you may reach the on-call GI Fellowby contacting the [facility] tank furnace operator at . Any benign/non-urgent test results are usually communicated via letter or HelpMeNowhart message within 1-2weeks after completion. Urgent results (those that require a change in the previously-discussed careplan) are usually communicated via a phone call once available from our clinic staff to discuss the results and the next steps in your evaluation. I recommend signing up for VIOSO access if you have not already done [...] about your healthcare. Sincerely, Charan Salazar MD Architectural Coating Finisher [facility] - Department of Medicine Division of Gastroenterology documented in this encounter Progress Notes Charan Salazar MD - 07/25/2012 1:48 PM CDT GI CLINIC VISIT CC/REFERRING MD: [...] presenting for f/u Crohn's disease. Doingwell overall, did experience what I suspect was an episode of partial SBO complicated by overflow diarrhea (since spontaneously resolved). Denies any N/V/F/C/DONNELLY or other const/syst/cardiopulmonary sxs,no BRBPR/melena/urinary changes, no unintentional wt loss or appetite/satiety changes. No other bowel/bladder habit changes, no dysphagia/odynophagia. No jaundice/icterus/pruritus, no acholic stools/steatorrhea, no jt pain/oral ulcer/rash/eye sxs noted. Reviewed her recent lab work results in detail today, along w/ the results of her recent MR enterography. Currently reporting 2-4 soft BM/day w/o blood, +improved stool consistency w/ empiric GFD and dairy/sugar restriction as well. Did discuss her concerns today re: role for empiric treatment of intestinal candidiasis, advised herof the controversial nature of this diagnosis and the lack of data to suggest benefit w/ directed anti-fungal therapy. ROS: 10pt ROS performed and otherwise negative. PERTINENT PAST MEDICAL/SURGICAL HISTORY: As noted above. PERTINENT MEDICATIONS: - prednisone 10mg PO QDAY Medications reviewed with patient today, see Medication List/Assessment for details. No other NSAID/anticoagulation reported by patient. No other OTC/herbal/supplements reported by patient. SOCIAL HISTORY: Tobacco: none. PHYSICAL EXAMINATION: Vitals reviewed, AFVSS Wt 121# today (~10# decr) Gen: aaox3, cooperative, pleasant, not dyspneic/diaphoretic, nad HEENT: ncat, neck supple, no clad, normal op w/o ulcer/exudate, anicteric, mmm Resp/CV unremarkable Abd: +nabs, soft, nt, nd, no peritoneal s/s noted Ext: no c/c/e Skin: warm, perfused, no jaundice Neuro: grossly intact, no asterixis noted PERTINENT STUDIES: MR enterography 07/10/12: +small 6mm chronic anovaginal fistula, no overt enterovesicular fistula noted, no evidence of active Crohn's disease. +cholelithiasis noted. CXR 07/25/12 negative HBsAb/sAg, cAb negative HAV negative Q-Gold TB negative ASSESSMENT/PLAN: 1. Complex chronic fistulizing ileocolonic + perianal Crohn's disease, chronic steroid dependence onno backbone maintenance therapy currently - recommend endoscopic evaluation to confirm disease/extent severity, initiation of immunosuppressive therapy with methotrexate Recent MRI revealed relatively quiescent Crohn's disease w/ evidence of chronic anovaginal fistula, warrants moving forward w/ EGD + ileocolonoscopy to define current disease activity as next step. Given pt's multiple autoimmune issues it may be richard to initiate Crohn's disease treatment w/ SQ MTX, particularly as pt has tolerated this medication well in the past (provides some level of treatment forfistulizing Crohn's disease as well as some overlap for other AI disorders). From there we can then consider the role for adjunct CERT, but would await upcoming Rheumatology assessment prior to adding this on. Will continue to monitor nutritional parameters periodically in pt's care (plan to recheck at next visit), discussed means for PO caloric supplementation today. Our eventual plan is to use MTX +/- CERT as steroid-sparing agents, in hopes of reducing/eliminating steroid dependence if possible. Will continue on prednisone 10mg PO QDAY for now, any future planned tapers will likely need to be slowly w/ Endocrine assistance. Will continue to monitor closely. 2. Colorectal Cancer Screening Ongoing mgmt of Crohn's disease, will readdress once acute issues have stabilized. RTC 2-4 weeks. Thank you for this consultation. It was a pleasure to participate in the care of this patient; please contact us with any further questions. A total of 25 minutes was spent with this patient, 50% of which was counseling regarding the above delineated issues. Charan Salazar MD Architectural Coating Finisher [facility] - Department of Medicine Division of Gastroenterology documented in this encounter Nursing Notes 07/25/2012 10:00 AM CDT >> Apolinar Braden MA SatJuly 25, 2012 10:02 AM Patient presents with: RECHECK - patient here for follow up on crohns 07/25/12 0959 BP: 113/54 Pulse: 89 Temp: 97.9 ??F (36.6 ??C) SpO2: 97% 5' 2, 121 lbs 4.8 oz, Body mass index is 22.19 kg/(m^2). Apolinar Braden MA documented in this encounter Plan of Treatment Not on filedocumented as of this encounter Procedures Procedure Name Priority Date/Time Associated Diagnosis Comme nts XR CHEST 2 VIEWS Routine 07/25/2012 10:47 AM Inflammatory monique l Results for this CDT disease (Crohn's procedure a re in disease) (H) the results section. documented in this encounter Results X-ray Chest 2 vws* (07/25/2012 10:47 AM CDT) Anatomical Region Laterality Modality Chest Computed Radiography Specimen (Source) Anatomical Collection Method Collection Time Re ceived Time Location / / Volume Laterality 07/25/2012 10:47 AM CDT Impressions 07/25/2012 12:14 PM CDT Impression: Clear chest. JAKE WEATHERS MD I have personally reviewed the image and initial interpretation, and I agree with findings. Narrative 07/25/2012 12:14 PM CDT Exam: 2 views of the chest 07/25/2012 Comparison: CT abdomen 01/21/2012, CT ch est, abdomen and pelvis 12/03/2011 History: 56-year-old woman, pre-methotre xate assessment. Regional enteritis of unspecified site. Findings: Clear lungs. Cardiomediastinal silhouette is within normal limits. Pulmonary vasculature is distinc t. No pleural effusion or pneumothorax. No acute osseous abnormali ty. Procedure Note Jake Weathers MD - 07/25/2012F ormatting of this note might be different from the original. Exam: 2 views of the chest 07/25/2012 Comparison: CT abdomen 01/21/2012, CT ch est, abdomen and pelvis 12/03/2011 History: 56-year-old woman, pre-methotre xate assessment. Regional enteritis of unspecified site. Findings: Clear lungs. Cardiomediastinal silhouette is within normal limits. Pulmonary vasculature is distinc t. No pleural effusion or pneumothorax. No acute osseous abnormali ty. IMPRESSION Impression: Clear chest. JAKE WEATHERS MD I have personally reviewed the image and initial interpretation, and I agree with findings. Charan Salazar MD IMG DIAGNOSTIC IMAGING ORDER EB documented in this encounter Visit Diagnoses Diagnosis Inflammatory bowel disease (Crohn's dise ase) (H) - Primary Regional enteritis of unspecified site documented in this encounter Care Teams Marshmallow Runner Relationship Specialty Start Date End Date Edison Tam MD PCP - General Family Practice 09/21/11 07/22/14 909 [facility] [address] [place] [address] documented as of this encounter
--- OUTSIDE RECORDS SUMMARY | 2021-10-24 12:06 | XMS_ITS | Encounter Summary ---
:1955 Author Organization [facility] Address [address] [place] [address] Care Team Providers Name Role Phone Edison Tam MD Primary Care Provider Reason for Visit Reason Onset Date Comments Refill Request 07/30/2012 Encounter Details Date Type Department Care Team Description 07/30/2012 Refill Medicine GI - 1E Charan Salazar MD Refill Request [phone] [place] [address] Floor, [facility] [address] [place] [address] [place] [phone] Social History Tobacco Use Types Packs/Day Years Used Date Former Smoker 1 18 Smokeless Tobacco: Former User Q uit: 09/20/1991 Alcohol Use Standard Drinks/Week Comments No 0 (1 standard drink = 0.6 oz pure alcoho l) Sex Assigned at Date Recorded Not on file documented as of this encounter Miscellaneous Notes Telephone Encounter - Lorrie Fox LPN - 07/30/2012 9:49 AM CDT Received request from pt for different script as the last script was too expensive (prednisone/rayosvs. Prednisone/deltasone). Checked with Dr. Salazar who approved change. Will set up and send to for approval and signature. documented in this encounter Plan of Treatment Not on filedocumented as of this encounter Visit Diagnoses Diagnosis Crohn's disease (H) - Primary Regional enteritis of unspecified site documented in this encounter Care Teams Plastic Top Assembler Relationship Specialty Start Date End Date Edison Tam MD PCP - General Family Practice 09/21/11 07/22/14 909 [facility] 4 [place] [address] documented as of this encounter
--- OUTSIDE RECORDS SUMMARY | 2021-10-24 12:06 | XMS_ITS | Encounter Summary ---
:1955 Author Organization [facility] Address [address] [place] [address] Care Team Providers Name Role Phone Edison Tam MD Primary Care Provider Reason for Visit Reason Onset Date Comments Orders 06/23/2012 skilled nurse HC Encounter Details Date Type Department Care Team Description 06/23/2012 Telephone [facility], Primary Joseph Hernandez , Orders (skilled nurse Care Center RN HC) 3rd Floor, Clinic [address] [place] [address] Social History Tobacco Use Types Packs/Day Years Used Date Former Smoker 1 18 Smokeless Tobacco: Former User Q uit: 09/20/1991 Alcohol Use Standard Drinks/Week Comments No 0 (1 standard drink = 0.6 oz pure alcoho l) Sex Assigned at Date Recorded Not on file documented as of this encounter Miscellaneous Notes Telephone Encounter - Joseph Hernandez RN - 06/23/2012 3:52 PM CDT Gave verbal order for Skilled Nurse Home Care. HHC was ordered on 05/26/12. Telephone Encounter - Joseph Hernandez RN - 06/23/2012 3:52 PM CDT Message copied by JOSEPH HERNANDEZ on SatJun 23, 2012 3:52 PM ------ Message from: LUIS M ROSEN Created: SatJun 23, 2012 1:27 PM Regarding: Home care orders Contact: Marisol from [facility] requested a call to discuss home care orders. Marisol can be reached at [phone] Thank you JCP documented in this encounter Plan of Treatment Not on filedocumented as of this encounter Visit Diagnoses Not on filedocumented in this encounter Care Teams Equipment Technician Relationship Specialty Start Date End Date Edison Tam MD PCP - General Family Practice 09/21/11 07/22/14 909 [facility] [address] [place] [address] documented as of this encounter
--- OUTSIDE RECORDS SUMMARY | 2021-10-24 12:06 | XMS_ITS | Encounter Summary ---
:1955 Author Organization [facility] Address [address] [place] [address] Care Team Providers Name Role Phone Edison Tam MD Primary Care Provider Reason for Visit Reason Onset Date Comments Patient Request 07/30/2012 Encounter Details Date Type Department Care Team Description 07/30/2012 Telephone Medicine GI - 1E Charan Salazar MD Patient Request Luke Barah[address] [address] [address] Floor, [address] [place] [address] [place] [phone] Social History Tobacco Use Types Packs/Day Years Used Date Former Smoker 1 18 Smokeless Tobacco: Former User Q uit: 09/20/1991 Alcohol Use Standard Drinks/Week Comments No 0 (1 standard drink = 0.6 oz pure alcoho l) Sex Assigned at Date Recorded Not on file documented as of this encounter Miscellaneous Notes Telephone Encounter - Charan Salazar MD - 07/30/2012 4:38 PM CDT Contacted pt again today - left VM that I called. If pt defers further endoscopic evaluation at thistime, will hold off on this for now per her wishes. Clinic staff reviewed indications for procedures(assessing current mucosal disease activity prior to immunosuppression, cancer/dysplasia surveillance in long-standing IBD), pt understands. Will arrange for GI Clinic f/u to review these issues in person, can discuss risks/benefits/alternatives to immunosuppression in setting of unassessed disease (particularly in the absence of preventable cancer screening). Please contact us w/ any further questions, will CC pt's PCP to keep her updated on current care plan. Charan Salazar MD Rn Paralegal [facility] - Department of Medicine Division of Gastroenterology documented in this encounter Plan of Treatment Not on filedocumented as of this encounter Visit Diagnoses Not on filedocumented in this encounter Care Teams Tower Erector Relationship Specialty Start Date End Date Edison Tam MD PCP - General Family Practice 09/21/11 07/22/[address] [address] documented as of this encounter
--- OUTSIDE RECORDS SUMMARY | 2021-10-24 12:06 | XMS_ITS | Encounter Summary ---
:1955 Author Organization [facility] Address [address] [place] [address] Care Team Providers Name Role Phone Edison Tam MD Primary Care Provider Reason for Visit Reason Onset Date Comments Patient Request 07/01/2012 Encounter Details Date Type Department Care Team Description 07/01/2012 Telephone Medicine GI - 1E Charan Salazar MD Patient Request Luke Barah[phone] [place] [address] Floor, [address] [place] [address] [place] [phone] Social History Tobacco Use Types Packs/Day Years Used Date Former Smoker 1 18 Smokeless Tobacco: Former User Q uit: 09/20/1991 Alcohol Use Standard Drinks/Week Comments No 0 (1 standard drink = 0.6 oz pure alcoho l) Sex Assigned at Date Recorded Not on file documented as of this encounter Miscellaneous Notes Telephone Encounter - Ruddy LorrieJENNIFER - 07/01/2012 2:40 PM CDT Received three phone calls from pt today. 1st call this morning: She is scheduled for MR Enterography and would like a sedative prescribed. She has trouble going in head first, panics, they can not guarantee that they will be able to put her in feet first and recommended she call for a sedative. She also mentioned that she has been having nausea then 1/2 hour later she will have BM. This is new for her. Would like something prescribed for nausea. 2nd call 20 mins later: Opened her lab results and was concerned about her WBC. Said that her fatherwas a pathologist and told her how to read her labs. She thought the comment Mild proteinuria and oxaluria: The oxaluria is not unexpected given your known ileal Crohn's involvement and fistulizing disease, may also explain the mild proteinuria as well. Will await the MRI findings to monitor the status of your chronic enterovesicular fistula. was alarming and she needed you to look back at her prior labs and see that these numbers were drastically changed and needed to be addressed immediately. 3rd call just now: She needs you to call her immediately. She is unable to eat and may have to checkherself into the hospital because her condition is dire. She will provide me no further information. Message sent to Dr. Salazar. documented in this encounter Plan of Treatment Not on filedocumented as of this encounter Visit Diagnoses Not on filedocumented in this encounter Care Teams Mercury Recoverer Relationship Specialty Start Date End Date Edison Tam MD PCP - General Family Practice 09/21/11 07/22/[address] [address] documented as of this encounter
--- OUTSIDE RECORDS SUMMARY | 2021-10-24 12:06 | XMS_ITS | Encounter Summary ---
:1955 Author Organization [facility] Address [address] [place] [address] Care Team Providers Name Role Phone Edison Tam MD Primary Care Provider Reason for Visit Reason Onset Date Comments [facility] 07/[facility]2012 orders Encounter Details Date Type Department Care Team Description 07/03/2012 Telephone [facility], Primary Jenae Hernandez , [facility] (orders) 3rd Floor, Clinic [address] [place] [phone] Social History Tobacco Use Types Packs/Day Years Used Date Former Smoker 1 18 Smokeless Tobacco: Former User Q uit: 09/20/1991 Alcohol Use Standard Drinks/Week Comments No 0 (1 standard drink = 0.6 oz pure alcoho l) Sex Assigned at Date Recorded Not on file documented as of this encounter Miscellaneous Notes Telephone Encounter - Edison Tam MD - 07/03/2012 5:08 PM CDT Agree Edison Tam Telephone Encounter - Jenae Hernandez, RN - 07/03/2012 4:21 PM CDT Spoke with Anita from [facility]. Verbally authorized Skilled Nurse visit 2 time/week for 2 weeks, then 1 visit/week for 2 weeks and 1 prn visit. Also verbally authorized PT, OT, and social worker masters. documented in this encounter Plan of Treatment Not on filedocumented as of this encounter Visit Diagnoses Not on filedocumented in this encounter Care Teams Spool Worker Relationship Specialty Start Date End Date Edison Tam MD PCP - General Family Practice 09/21/11 07/22/[address] [place] [address] documented as of this encounter
--- OUTSIDE RECORDS SUMMARY | 2021-10-24 12:07 | XMS_ITS | Encounter Summary ---
:1955 Author Organization [facility] Address [address] [place] [address]. [place] [address] Care Team Providers Name Role Phone Edison Tam MD Primary Care Provider Reason for Visit Reason Comments Nausea Diarrhea Encounter Details Date Type Department Care Team Description 02/06/2012 Emergency [facility] [id number] OBSERVATION Cristhian Roberts MD [address] [place] [id number] Dehydration (Primary Dx); [facility], Storm Parker MD [address] [place] [address] Crohn's disease of both small and large intestine with complication (H); [place], [place] [address] Yossi's thyroiditis; [phone] Restless leg Social History Tobacco Use Types Packs/Day Years Used Date Former Smoker 1 18 Smokeless Tobacco: Former User Q uit: 09/20/1991 Alcohol Use Standard Drinks/Week Comments No 0 (1 standard drink = 0.6 oz pure alcoho l) Sex Assigned at Date Recorded Not on file documented as of this encounter Last Filed Vital Signs Vital Sign Reading Time Taken Comments Blood Pressure 143/78 02/06/2012 4:13 PM OUTPATIENT PHYSICAL THERAPIST Pulse 88 02/06/2012 4:13 PM OUTPATIENT PHYSICAL THERAPIST Temperature 35.7 ??C (96.3 ??F) 02/06/2012 4:07 PM OUTPATIENT PHYSICAL THERAPIST Respiratory Rate 16 02/06/2012 11:56 AM OUTPATIENT PHYSICAL THERAPIST Oxygen Saturation 95% 02/06/2012 2:00 PM OUTPATIENT PHYSICAL THERAPIST Inhaled Oxygen Concentration - - Weight 59 kg (130 lb) 02/06/2012 6:55 AM OUTPATIENT PHYSICAL THERAPIST Height 157.5 cm (5' 2) 02/06/2012 6:55 AM OUTPATIENT PHYSICAL THERAPIST Body Mass Index 23.78 02/06/2012 6:55 AM OUTPATIENT PHYSICAL THERAPIST documented in this encounter Discharge Summaries Storm Domínguez MD - 02/06/2012 4:04 PM CST Physician Discharge Summary Patient ID: Maria E Norman [id number] 56 year old 1955 Admit date: 02/06/2012 Discharge date and time: 02/06/2012 Admitting Physician: Storm Domínguez MD Discharge Physician: Dr. 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 Pt states she has felt unwell since Saturday. Pt was able to tolerate eggs on Saturday and has had nothing but Boost and water since. Pt reports Saturday she was able to drink 4 Boost. Saturday and today she has not done as well with oral intake and has had about 10 non bloody stools a day. This morning pt took Imodium and then presented to the ED. In the ED evaluation included CBC, CMP, Lipase, Lactic acid, UA and Drug screen. Laboratory evaluation was largely within normal limits with the exception of a hemoglobin of 16, lactic acid elevation at 3.3 and a negative drug screen. Pt was given 0.625 mg of Inapsine, 2 liters of normal saline and admitted to the observation unit for hydration and monitoring. Hospital Course: Upon arrival to the observation unit pt had gotten 1 liter of normal saline and wasin the process of getting her second. Pt shared that she had not had a bowel movement since coming to the ED. Pt felt weak but better then she did this morning. Pt was encouraged to try food if she could tolerate it and 0.9% normal saline with D5 and 20 ml/Eq of potassium was infused at 125 ml per hour. Pt was able to tolerate eggs and ambulated without difficulty. CRP and Sed rate were ordered and found not to be elevated. Pt was given all her home medications and was feeling better by 1300. Pt ateanother meal of grilled cheese, drank lots of water and was ambulating without difficulty. Pt was dis charged to home with instructions to follow up with PCP and GI. Consults: none Significant Diagnostic Studies: Results for orders placed during the hospital encounter of 02/06/12 CBC WITH PLATELETS DIFFERENTIAL Component Value Range WBC 11.0 4.0 - 11.0 10e9/L RBC Count 5.35 (*) 3.8 - 5.2 10e12/L Hemoglobin 16.2 (*) 11.7 - 15.7 g/dL Hematocrit 47.5 (*) 35.0 - 47.0 % MCV 89 78 - 100 fl MCH 30.3 26.5 - 33.0 pg MCHC 34.1 31.5 - 36.5 g/dL RDW 13.4 10.0 - 15.0 % Platelet Count 262 150 - 450 10e9/L Diff Method Automated Method % Neutrophils 74.2 40 - 75 % % Lymphocytes 14.6 (*) 20 - 48 % % Monocytes 10.2 0 - 12 % % Eosinophils 0.5 0 - 6 % % Basophils 0.1 0 - 2 % % Immature Granulocytes 0.4 0 - 0.4 % Absolute Neutrophil 8.2 1.6 - 8.3 10e9/L Absolute Lymphocytes 1.6 0.8 - 5.3 10e9/L Absolute Monoctyes 1.1 0.0 - 1.3 10e9/L Absolute Eosinophils 0.1 0.0 - 0.7 10e9/L Absolute Basophils 0.0 0.0 - 0.2 10e9/L Abs Immature Granulocytes 0.0 0 - 0.03 10e9/L COMPREHENSIVE METABOLIC PANEL Component Value Range Sodium 143 133 - 144 mmol/L Potassium 3.7 3.4 - 5.3 mmol/L Chloride 108 94 - 109 mmol/L Carbon Dioxide 20 20 - 32 mmol/L Anion Gap 14 6 - 17 mmol/L Glucose 122 (*) 60 - 99 mg/dL Urea Nitrogen 8 7 - 30 mg/dL Creatinine 0.70 0.52 - 1.04 mg/dL GFR Estimate 86 >60 mL/min/1.7m2 GFR Estimate If Black >90 >60 mL/min/1.7m2 Calcium 9.8 8.5 - 10.4 mg/dL Bilirubin Total 0.5 0.2 - 1.3 mg/dL Albumin 4.2 3.3 - 4.9 g/dL Protein Total 6.9 6.8 - 8.8 g/dL Alkaline Phosphatase 89 40 - 150 U/L ALT 14 0 - 50 U/L AST 23 0 - 45 U/L LIPASE Component Value Range Lipase 187 20 - 250 U/L LACTIC ACID WHOLE BLOOD Component Value Range Lactic Acid 3.3 (*) 0.7 - 2.1 mmol/L UA MACROSCOPIC WITH REFLEX TO MICRO AND CULTURE Component Value Range Color Urine Straw Appearance Urine Clear Glucose Urine Negative NEG mg/dL Bilirubin Urine Negative NEG Ketones Urine Negative NEG mg/dL Specific [place] Urine 1.002 (*) 1.003 - 1.035 Blood Urine Negative NEG pH Urine 5.5 5.0 - 7.0 pH Protein Albumin Urine Negative NEG mg/dL Urobilinogen mg/dL Normal 0.0 - 2.0 mg/dL Nitrite Urine Negative NEG Leukocyte Esterase Urine Negative NEG Source Midstream Urine DRUG ABUSE SCREEN 6 CHEM DEP URINE ([facility]) Component Value Range Amphetamine Qual Urine NEG Value: Negative Cutoff for a negative amphetamine is 500 ng/mL or less. Barbiturates Qual Urine NEG Value: Negative Cutoff for a negative barbiturate is 200 ng/mL or less. Benzodiazepine Qual Urine NEG Value: Negative Cutoff for a negative benzodiazepine is 200 ng/mL or less. Cannabinoids Qual Urine NEG Value: Negative Cutoff for a negative cannabinoid is 50 ng/mL or less. Cocaine Qual Urine NEG Value: Negative Cutoff for a negative cocaine is 300 ng/mL or less. Ethanol Qual Urine NEG Value: Negative Cutoff for a negative urine ethanol is 50 mg/dL or less. Opiates Qualitative Urine NEG Value: Negative Cutoff for a negative opiate is 300 ng/mL or less. CLOSTRIDIUM DIFFICILE TOXIN B Component Value Range Specimen Description Feces C Diff Toxin B PCR Pending OVA AND PARASITE EXAM [place] Component Value Range Source Feces Ova and Parasite Exam [place] Pending CRP INFLAMMATION Component Value Range CRP Inflammation <5.0 0.0 - 8.0 mg/L ERYTHROCYTE SEDIMENTATION RATE AUTO Component Value Range Sed Rate 5 0 - 30 mm/h CBC WITH PLATELETS Component Value Range WBC 9.9 4.0 - 11.0 10e9/L RBC Count 4.66 3.8 - 5.2 10e12/L Hemoglobin 14.0 11.7 - 15.7 g/dL Hematocrit 42.5 35.0 - 47.0 % MCV 91 78 - 100 fl MCH 30.0 26.5 - 33.0 pg MCHC 32.9 31.5 - 36.5 g/dL RDW 13.7 10.0 - 15.0 % Platelet Count 219 150 - 450 10e9/L Treatments: IV hydration Discharge Exam: General appearance: alert and cooperative Head: Normocephalic, without obvious abnormality Neck: no adenopathy Lungs: clear to auscultation bilaterally Heart: regular rate and rhythm, S1, S2 normal, no murmur, click, rub or gallop Abdomen: soft, non-tender; bowel sounds normal; no masses Disposition: home Patient Instructions: Current Discharge Medication List CONTINUE these medications which have NOT CHANGED Details fluorouracil (EFUDEX) 5 % cream Apply topically to bilateral forearms and hands twice daily Qty: 40 g, Refills: 0 Associated Diagnoses: AK (actinic keratosis) !! rOPINIRole (REQUIP) 0.5 MG tablet Take 1 tablet by mouth At Bedtime. Qty: 60 tablet, Refills: 3 Associated Diagnoses: Restless leg Levothyroxine Sodium 50 MCG CAPS Take 1 tablet by mouth daily. Qty: 30 capsule, Refills: 1 Associated Diagnoses: Yossi's thyroiditis venlafaxine (EFFEXOR-XR) 75 MG 24 hr capsule Take 150 mg by mouth daily. PREDNISONE PO Take 10 mg by mouth daily. multivitamin, therapeutic with minerals (THERA-VIT-M) TABS Take 1 tablet by mouth daily. zoledronic Acid (RECLAST) 5 MG/100ML SOLN Inject 5 mg into the vein. Annually in the beginning of the year buPROPion (WELLBUTRIN SR) 150 MG 12 hr tablet Take 150 mg by mouth 2 times daily. AM and 1 PM cyanocobalamin 1000 MCG/ML injection Inject 1 mL into the muscle every 30 days. Potassium Chloride Nancy CR (K-DUR PO) Take 16 mEq by mouth 3 times daily. UNABLE TO FIND nightly as needed. MEDICATION NAME: Chantale Silver ergocalciferol (ERGOCALCIFEROL) 89896 UNIT capsule One capsule twice weekly - and Qty: 8 capsule, Refills: 0 propranolol (INDERAL) 20 MG tablet Take 20 mg by mouth daily. ALPRAZolam (XANAX XR) 2 MG 24 hr tablet Take 2 mg by mouth every morning. !! rOPINIRole (REQUIP) 5 MG tablet Take 10 mg by mouth At Bedtime. Indications: Restless Leg Syndrome Loperamide HCl (IMODIUM A-D PO) Take by mouth. 8-10 tablets twice daily Calcium Citrate-Vitamin D (CITRACAL + D PO) Take 1 tablet by mouth 2 times daily. !! buprenorphine HCl-naloxone HCl (SUBOXONE) 8-[address] under the tongue as needed. !! buprenorphine HCl-naloxone HCl (SUBOXONE) 8-[address] 0.5 tablets under the tongue 2 times daily as needed. pain guaiFENesin (MUCINEX) 600 MG 12 hr tablet Take 600 mg by mouth 2 times daily as needed. Menthol, Topical Analgesic, (ICY HOT EX) Externally apply topically. Patient uses Gel, Cream and Patch PRN Acetaminophen (TYLENOL EXTRA STRENGTH PO) Take 2 tablets by mouth 2 times daily as needed. !! - Potential duplicate medications found. Please discuss with provider. Activity: activity as tolerated Diet: regular diet Follow-up with Primary Care Provider in 1 - 3 weeks. Signed: Elizabeth Pemberton 02/06/2012 4:04 PM The medical decision making and plan of care was discussed with the OBS Care Team and was supervisedby me. The documentation above accurately reflects the patient's evaluation, care and disposition under my supervision in the OBS Unit. Storm Domínguez MD, FACEP [facility] Staff Emergency Physician ATIENT PHYSICAL THERAPIST documented in this encounter Discharge Instructions Discharge InstructionsElizabeth Pemberton PA-C - 02/06/2012 3:46 PM OUTPATIENT PHYSICAL THERAPIST Maria E, You were admitted to the observation unit because of nausea, diarrhea and dehydration. You were given fluids and one dose of anti-nausea medication. You were able to tolerate food, water and ambulationwith out a problem. You were discharged to home with instructions to keep hydrated, continue all your home medications and keep your appointment with Dr. Charan Salazar in Gastroenterology on 03/26/2012 at 1:20pm. Please feel free to call the Gastroenterology clinic if you have any questions about this appointment. Their phone number is [phone]. Please make sure to bring ALL of your previous medical records with you to this appointment. The GI clinic may be calling you to update you of an earlier appointment if they have any openings. Stool cultures were obtained and the results were not back at time of discharge. You will be called only if any of these results come back positive. Please keep your appointment with your primary care provider on 02/25/12. ATIENT PHYSICAL THERAPIST AttachmentsThe following attachments cannot be sent through Care Everywhere. VOMITING AND DIARRHEA, Nonspecific (Adult)DEHYDRATION (5y-Adult)documented in this encounter Medications at Time of Discharge Medication Sig Dispensed Refills Start Date End Date Calcium Citrate-Vitamin Take 1 tablet by 0 D (CITRACAL + D PO) mouth 2 times daily. fluorouracil (EFUDEX) 5 Apply topically to 40 g 0 01/10 % creamIndications: AK bilateral forearms (actinic keratosis) and hands twice daily guaiFENesin (MUCINEX) Take 600 mg by mouth 0 600 MG 12 hr tablet 2 times daily as needed. Menthol, Topical Externally apply 0 Analgesic, (ICY HOT EX) topically. Patient uses Gel, Cream and Patch PRN Acetaminophen (TYLENOL Take 2 tablets by 0 04/07/2012 EXTRA STRENGTH PO) mouth 2 times daily as needed. ALPRAZolam (XANAX XR) 2 Take 2 mg by mouth 0 06/04/2012 MG 24 hr tablet every morning. buprenorphine Place under the 0 2012 HCl-naloxone HCl tongue as needed. (SUBOXONE) 8-[address] 0.5 tablets 0 03/11 HCl-naloxone HCl under the tongue 2 (SUBOXONE) 8-2 MG FILM times daily as needed. pain buPROPion (WELLBUTRIN Take 150 mg by mouth 0 09/08/2012 SR) 150 MG 12 hr tablet 2 times daily. AM and 1 PM cyanocobalamin 1000 Inject 1 mL into the 0 04/27/2013 MCG/ML injection muscle every 30 days. ergocalciferol One capsule twice 8 capsule 0 09/26/2011 (ERGOCALCIFEROL) 32536 weekly - and Th UNIT capsule Levothyroxine Sodium 50 Take 1 tablet by 30 capsule 1 201104/04/2012 MCG CAPSIndications: mouth daily. Yossi's thyroiditis Loperamide HCl (IMODIUM Take by mouth. 8-10 tablets twice daily 0 04/22/2012 A-D PO) multivitamin, Take 1 tablet by 0 04/22 therapeutic with mouth daily. minerals (THERA-VIT-M) TABS Potassium Chloride Nancy Take 16 mEq by mouth 0 04/07/2012 CR (K-DUR PO) 3 times daily. PREDNISONE PO Take 10 mg by mouth 0 daily. propranolol (INDERAL) 20 Take 20 mg by mouth 0 02/18/2012 MG tablet daily. rOPINIRole (REQUIP) 0.5 Take 1 tablet by 60 tablet 3 201103/05/2012 MG tabletIndications: mouth At Bedtime. Restless leg rOPINIRole (REQUIP) 5 MG Take 10 mg by mouth 0 03/27/2012 tabletIndications: At Bedtime. Restless Leg Syndrome Indications: Restless Leg Syndrome UNABLE TO FIND nightly as needed. 0 MEDICATION NAME: Calms Forte venlafaxine (EFFEXOR-XR) Take 150 mg by mouth 0 03/27/2012 75 MG 24 hr capsule daily. zoledronic Acid Inject 5 mg into the 0 06/05/2012 (RECLAST) 5 MG/100ML vein. Annually in [facility] the beginning of the year documented as of this encounter Progress Notes Wanda Parker RN - 02/06/2012 5:04 PM CST A/O x4. VSS. Pt ambulating in halls independently. Tolerating adequate PO. Discharge summary discussed and reviewed with patient. Discharge questions answered. Pt discharged to home, accompanied with family member. ATIENT PHYSICAL THERAPIST Marisol Irene RN - 02/06/2012 3:38 PM CST Ambulating in [place] with good tolerance. Fluids and diet taken well. ATIENT PHYSICAL THERAPIST Marisol Irene RN - 02/06/2012 10:59 AM CST Patient oriented to call light and room. ATIENT PHYSICAL THERAPIST Connie Schmidt RN - 02/06/2012 10:45 AM CST Pt arrived from ED via W/C accompanied by self. 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 Pt states she has felt unwell since Saturday. Pt was able to tolerate eggs on Saturday and has had nothing but Boost and water since. Pt reports Saturday she was able to drink 4 Boost. Saturday and today she has not done as well with oral intake and has had about 10 non bloody stools a day. This morning pt took Imodium and then presented to the ED. In the ED evaluation included CBC, CMP, Lipase, Lactic acid, UA and Drug screen. Laboratory evaluation was largely within normal limits with the exception of a hemoglobin of 16, lactic acid elevation at 3.3 and a negative drug screen. Pt was given 0.625 mg of Inapsine, 2 liters of normal saline and admitted to the observation unit for hydration and monitoring. Past Medical History Diagnosis Date ??? Crohn's [...] Sigmoidectomy left ovary removal ??? Back surgery 2009 L4-L5 laminectomy ??? Release carpal tunnel right ??? Left ovary removal was removed during a resection ??? Back surgery 2010 L5 ??? 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 Colonoscopy Family History Problem Relation Age of Onset ??? Arthritis Sister Sjogrens twin sister ??? Neurological Sister Multiple sclerosis older sister ??? Cancer Mother 68 Lung ??? Endocrine Disease Mother Hashimotos ??? Endocrine Disease Sister Hashimotos both sisters History Social History ??? Marital Status: Single [...] on file Social History Narrative [place] [facility] to live with Twin sister Joan [place]. No current facility-administered medications on file prior to encounter. Current Outpatient Prescriptions on File Prior to Encounter: fluorouracil (EFUDEX) 5 % cream Apply topically to bilateral forearms and hands twice daily rOPINIRole (REQUIP) 0.5 MG tablet Take 1 tablet by mouth At Bedtime. Levothyroxine Sodium 50 MCG CAPS Take 1 tablet by mouth daily. venlafaxine (EFFEXOR-XR) 75 MG 24 hr capsule Take 150 mg by mouth daily. PREDNISONE PO Take 10 mg by mouth daily. multivitamin, therapeutic with minerals (THERA-VIT-M) TABS Take 1 tablet by mouth daily. zoledronic Acid (RECLAST) 5 MG/100ML SOLN Inject 5 mg into the vein. Annually in the beginning of the year buPROPion (WELLBUTRIN SR) 150 MG 12 hr tablet Take 150 mg by mouth 2 times daily. AM and 1 PM cyanocobalamin 1000 MCG/ML injection Inject 1 mL into the muscle every 30 days. Potassium Chloride Nancy CR (K-DUR PO) Take 16 mEq by mouth 3 times daily. UNABLE TO FIND nightly as needed. MEDICATION NAME: Calms Forte ergocalciferol (ERGOCALCIFEROL) 57686 UNIT capsule One capsule twice weekly - and propranolol (INDERAL) 20 MG tablet Take 20 mg by mouth daily. ALPRAZolam (XANAX XR) 2 MG 24 hr tablet Take 2 mg by mouth every morning. rOPINIRole (REQUIP) 5 MG tablet Take 10 mg by mouth At Bedtime. Indications: Restless Leg Syndrome Loperamide HCl (IMODIUM A-D PO) Take by mouth. 8-10 tablets twice daily Calcium Citrate-Vitamin D (CITRACAL + D PO) Take 1 tablet by mouth 2 times daily. buprenorphine HCl-naloxone HCl (SUBOXONE) 8-[address] under the tongue as needed. buprenorphine HCl-naloxone HCl (SUBOXONE) 8-[address] 0.5 tablets under the tongue 2 times daily as needed. pain guaiFENesin (MUCINEX) 600 MG 12 hr tablet Take 600 mg by mouth 2 times daily as needed. Menthol, Topical Analgesic, (ICY HOT EX) Externally apply topically. Patient uses Gel, Cream and Patch PRN Acetaminophen (TYLENOL EXTRA STRENGTH PO) Take 2 tablets by mouth 2 times daily as needed. Data: Results for orders placed during the hospital encounter of 02/06/12 CBC WITH PLATELETS DIFFERENTIAL Component Value Range WBC 11.0 4.0 - 11.0 10e9/L RBC Count 5.35 (*) 3.8 - 5.2 10e12/L Hemoglobin 16.2 (*) 11.7 - 15.7 g/dL Hematocrit 47.5 (*) 35.0 - 47.0 % MCV 89 78 - 100 fl MCH 30.3 26.5 - 33.0 pg MCHC 34.1 31.5 - 36.5 g/dL RDW 13.4 10.0 - 15.0 % Platelet Count 262 150 - 450 10e9/L Diff Method Automated Method % Neutrophils 74.2 40 - 75 % % Lymphocytes 14.6 (*) 20 - 48 % % Monocytes 10.2 0 - 12 % % Eosinophils 0.5 0 - 6 % % Basophils 0.1 0 - 2 % % Immature Granulocytes 0.4 0 - 0.4 % Absolute Neutrophil 8.2 1.6 - 8.3 10e9/L Absolute Lymphocytes 1.6 0.8 - 5.3 10e9/L Absolute Monoctyes 1.1 0.0 - 1.3 10e9/L Absolute Eosinophils 0.1 0.0 - 0.7 10e9/L Absolute Basophils 0.0 0.0 - 0.2 10e9/L Abs Immature Granulocytes 0.0 0 - 0.03 10e9/L COMPREHENSIVE METABOLIC PANEL Component Value Range Sodium 143 133 - 144 mmol/L Potassium 3.7 3.4 - 5.3 mmol/L Chloride 108 94 - 109 mmol/L Carbon Dioxide 20 20 - 32 mmol/L Anion Gap 14 6 - 17 mmol/L Glucose 122 (*) 60 - 99 mg/dL Urea Nitrogen 8 7 - 30 mg/dL Creatinine 0.70 0.52 - 1.04 mg/dL GFR Estimate 86 >60 mL/min/1.7m2 GFR Estimate If Black >90 >60 mL/min/1.7m2 Calcium 9.8 8.5 - 10.4 mg/dL Bilirubin Total 0.5 0.2 - 1.3 mg/dL Albumin 4.2 3.3 - 4.9 g/dL Protein Total 6.9 6.8 - 8.8 g/dL Alkaline Phosphatase 89 40 - 150 U/L ALT 14 0 - 50 U/L AST 23 0 - 45 U/L LIPASE Component Value Range Lipase 187 20 - 250 U/L LACTIC ACID WHOLE BLOOD Component Value Range Lactic Acid 3.3 (*) 0.7 - 2.1 mmol/L UA MACROSCOPIC WITH REFLEX TO MICRO AND CULTURE Component Value Range Color Urine Straw Appearance Urine Clear Glucose Urine Negative NEG mg/dL Bilirubin Urine Negative NEG Ketones Urine Negative NEG mg/dL Specific [place] Urine 1.002 (*) 1.003 - 1.035 Blood Urine Negative NEG pH Urine 5.5 5.0 - 7.0 pH Protein Albumin Urine Negative NEG mg/dL Urobilinogen mg/dL Normal 0.0 - 2.0 mg/dL Nitrite Urine Negative NEG Leukocyte Esterase Urine Negative NEG Source Midstream Urine DRUG ABUSE SCREEN 6 CHEM DEP URINE ([facility]) Component Value Range Amphetamine Qual Urine NEG Value: Negative Cutoff for a negative amphetamine is 500 ng/mL or less. Barbiturates Qual Urine NEG Value: Negative Cutoff for a negative barbiturate is 200 ng/mL or less. Benzodiazepine Qual Urine NEG Value: Negative Cutoff for a negative benzodiazepine is 200 ng/mL or less. Cannabinoids Qual Urine NEG Value: Negative Cutoff for a negative cannabinoid is 50 ng/mL or less. Cocaine Qual Urine NEG Value: Negative Cutoff for a negative cocaine is 300 ng/mL or less. Ethanol Qual Urine NEG Value: Negative Cutoff for a negative urine ethanol is 50 mg/dL or less. Opiates Qualitative Urine NEG Value: Negative Cutoff for a negative opiate is 300 ng/mL or less. Allergies: Allergies Allergen Reactions ??? Humira Rash ??? Ibuprofen Sodium ??? No Clinical Screening - See Comments Use Caution with Pain Medication. Short term ??? Remicade (Infliximab Injection) Doesn't work for pt ??? Sulfa Drugs Profound lethargy ??? Penicillin G Rash Childhood reaction ??? Tramadol Itching and Rash Active Problems: Dehydration Blood pressure 141/81, pulse 106, temperature 97.8 ??F (36.6 ??C), temperature source Oral, resp. rate 16, height 1.575 m (5' 2), weight 58.968 kg (130 lb), SpO2 100.00%. Review of Systems HENT: Negative. Eyes: Negative. Respiratory: Negative. Cardiovascular: Negative. Gastrointestinal: Positive for diarrhea. Genitourinary: Negative. Musculoskeletal: Negative. Skin: Negative. Neurological: Positive for dizziness and weakness. Physical Exam Nursing note and vitals reviewed. Constitutional: She is oriented to person, place, and time. She appears well- developed and well-nourished. HENT: Head: Normocephalic and atraumatic. Eyes: Conjunctivae are normal. Neck: Normal range of motion. Neck supple. Cardiovascular: Normal rate, regular rhythm and normal heart sounds. Exam reveals no gallop and no friction rub. No murmur heard. Pulmonary/Chest: Effort normal. No respiratory distress. She has no wheezes. She has no rales. Abdominal: Soft. Bowel sounds are normal. She exhibits no distension. There is tenderness in the right lower quadrant. There is no rigidity, no rebound and no guarding. Musculoskeletal: She exhibits no edema and no tenderness. Lymphadenopathy: She has no cervical adenopathy. Neurological: She is alert and oriented to person, place, and time. Skin: Skin is warm and dry. Assessment / Plan: 1. Diarrhea - During pt's last hospital admission GI was consulted and recommended stool cultures. Pt never went to the bathroom after she was admitted to the observation unit so these were never obtained. Will order stool cultures, C. Diff, SSCE given pt's significant GI surgical history and chronic P rednisone use. CRP and Sed rate to evaluate for Crohn's flare. 2. Nausea - This appears to be improved after Inapsine in the ED. Pt now ordering food. 3. Dehydration - Pt's elevated hemoglobin indicates some dehydration. Will run fluids at 125 ml per hour. 4. Discharge - Pending stool culture results, pt's tolerance of oral intake and pt's ability to ambulate with no dizziness. Elizabeth Messermadi 02/06/2012 This patient was discussed with the Care Team in the OBS Unit. The patient's chart was reviewed and the plan of care was discussed and reviewed with the Care Team. The above documentation reflects the initial evaluation, medical decision making and plan under my supervision. Storm Domínguez MD, FACEP [facility] Staff Emergency Physician ATIENT PHYSICAL THERAPIST documented in this encounter ED Notes Fausto Chau RN - 02/06/2012 8:11 AM CST Attempted IV with ultrasound. Artery was cannulated, so pulled the IV at this time. Pt notified. CMSintact to fingers and hand. No pain. Pressure dressing applied. ATIENT PHYSICAL THERAPIST Cristhian Roberts MD - 02/06/2012 7:35 AM CST History Chief Complaint Patient presents with ??? Nausea ??? Diarrhea Patient is a 56 year old female presenting with diarrhea. The history is provided by the patient. Diarrhea This is a new problem. The current episode started 2 days ago. The problem occurs 2 to 4 times per day. The problem has been gradually worsening. The stool consistency is described as watery. There hasbeen no fever. Associated symptoms include abdominal pain and chills. Pertinent negatives include novomiting, no sweats, no headaches, no arthralgias, no myalgias, no URI and no cough. Treatments tried: prednisone. The treatment provided mild relief. Her past medical history is significant for inflammatory bowel disease (crohn's). Her past medical history does not include irritable bowel syndrome, bowel resection, recent abdominal surgery or malabsorption. Maria E Norman is a 56 year old female who presents with persistent nausea, diarrhea and now with one-day history of lightheadedness and weakness. Patient has long-standing history of Crohn's disease with recent admission to hospital for dehydration. Patient had seen her primary physician 2 days ago and states that over the past day she has had progressive nausea, persistent diarrhea and now weakness and lightheadedness. I have reviewed the Medications, Allergies, Past Medical and Surgical History, and Social History inthe [employer] system. Review of Systems Constitutional: Positive for chills. Negative for fever. HENT: Negative for congestion and neck stiffness. Eyes: Negative for redness. Respiratory: Negative for cough and shortness of breath. Cardiovascular: Negative for chest pain. Gastrointestinal: Positive for nausea, abdominal pain, diarrhea and abdominal distention. Negative for vomiting, constipation, blood in stool, anal bleeding and rectal pain. Genitourinary: Negative for difficulty urinating. Musculoskeletal: Negative for myalgias and arthralgias. Skin: Negative for color change. Neurological: Positive for weakness (past 24 hours) and light-headedness (past 24 hours). Negative for headaches. Psychiatric/Behavioral: Positive for dysphoric mood. Negative for confusion. All other systems reviewed and are negative. Physical Exam BP: 137/86 mmHg Heart Rate: 112 Temp: 97.3 ??F (36.3 ??C) Resp: 20 Height: 157.5 cm (5' 2) Weight: 58.968 kg (130 lb) SpO2: 100 % Physical Exam Constitutional: No distress. HENT: Head: Atraumatic. Mouth/Throat: Oropharynx is clear and moist. No oropharyngeal exudate. Eyes: Pupils are equal, round, and reactive to light. No scleral icterus. Cardiovascular: Normal heart sounds and intact distal pulses. Pulmonary/Chest: Breath sounds normal. No respiratory distress. Abdominal: Soft. Bowel sounds are normal. There is tenderness (diffusely). Musculoskeletal: She exhibits no edema and no tenderness. Skin: Skin is warm. No rash noted. She is not diaphoretic. ED Course Procedures Results for orders placed during the hospital encounter of 02/06/12 (from the past 24 hour(s)) UA MACROSCOPIC WITH REFLEX TO MICRO AND CULTURE Component Value Range Color Urine Straw Appearance Urine Clear Glucose Urine Negative NEG mg/dL Bilirubin Urine Negative NEG Ketones Urine Negative NEG mg/dL Specific [place] Urine 1.002 (*) 1.003 - 1.035 Blood Urine Negative NEG pH Urine 5.5 5.0 - 7.0 pH Protein Albumin Urine Negative NEG mg/dL Urobilinogen mg/dL Normal 0.0 - 2.0 mg/dL Nitrite Urine Negative NEG Leukocyte Esterase Urine Negative NEG Source Midstream Urine CBC WITH PLATELETS DIFFERENTIAL Component Value Range WBC 11.0 4.0 - 11.0 10e9/L RBC Count 5.35 (*) 3.8 - 5.2 10e12/L Hemoglobin 16.2 (*) 11.7 - 15.7 g/dL Hematocrit 47.5 (*) 35.0 - 47.0 % MCV 89 78 - 100 fl MCH 30.3 26.5 - 33.0 pg MCHC 34.1 31.5 - 36.5 g/dL RDW 13.4 10.0 - 15.0 % Platelet Count 262 150 - 450 10e9/L Diff Method Automated Method % Neutrophils 74.2 40 - 75 % % Lymphocytes 14.6 (*) 20 - 48 % % Monocytes 10.2 0 - 12 % % Eosinophils 0.5 0 - 6 % % Basophils 0.1 0 - 2 % % Immature Granulocytes 0.4 0 - 0.4 % Absolute Neutrophil 8.2 1.6 - 8.3 10e9/L Absolute Lymphocytes 1.6 0.8 - 5.3 10e9/L Absolute Monoctyes 1.1 0.0 - 1.3 10e9/L Absolute Eosinophils 0.1 0.0 - 0.7 10e9/L Absolute Basophils 0.0 0.0 - 0.2 10e9/L Abs Immature Granulocytes 0.0 0 - 0.03 10e9/L COMPREHENSIVE METABOLIC PANEL Component Value Range Sodium 143 133 - 144 mmol/L Potassium 3.7 3.4 - 5.3 mmol/L Chloride 108 94 - 109 mmol/L Carbon Dioxide 20 20 - 32 mmol/L Anion Gap 14 6 - 17 mmol/L Glucose 122 (*) 60 - 99 mg/dL Urea Nitrogen 8 7 - 30 mg/dL Creatinine 0.70 0.52 - 1.04 mg/dL GFR Estimate 86 >60 mL/min/1.7m2 GFR Estimate If Black >90 >60 mL/min/1.7m2 Calcium 9.8 8.5 - 10.4 mg/dL Bilirubin Total 0.5 0.2 - 1.3 mg/dL Albumin 4.2 3.3 - 4.9 g/dL Protein Total 6.9 6.8 - 8.8 g/dL Alkaline Phosphatase 89 40 - 150 U/L ALT 14 0 - 50 U/L AST 23 0 - 45 U/L LIPASE Component Value Range Lipase 187 20 - 250 U/L LACTIC ACID WHOLE BLOOD Component Value Range Lactic Acid 3.3 (*) 0.7 - 2.1 mmol/L Labs Ordered and Resulted from Time of ED Arrival Up to the Time of Departure from the ED CBC WITH PLATELETS DIFFERENTIAL - Abnormal; Notable for the following: RBC Count 5.35 (*) Hemoglobin 16.2 (*) Hematocrit 47.5 (*) % Lymphocytes 14.6 (*) All other components within normal limits COMPREHENSIVE METABOLIC PANEL - Abnormal; Notable for the following: Glucose 122 (*) All other components within normal limits LACTIC ACID WHOLE BLOOD - Abnormal; Notable for the following: Lactic Acid 3.3 (*) All other components within normal limits UA MACROSCOPIC WITH REFLEX TO MICRO AND CULTURE - Abnormal; Notable for the following: Specific [place] Urine 1.002 (*) All other components within normal limits LIPASE ORTHOSTATIC BLOOD PRESSURE AND PULSE DRUG ABUSE SCREEN 6 CHEM DEP URINE ([facility]) ??? sodium chloride 0.9 % 2,000 mL Intravenous Once ??? droperidol 0.625 mg Intravenous Once Assessments & Plan (with Medical Decision Making) 56-year-old female with almost 40 year history of Crohn's disease presents with nausea, persistent diarrhea and no weakness and lightheadedness. Laboratories including a lactic acid of 3.3, elevated glucose 122, elevation in white blood count and blood indices consistent with dehydration and hypovolemia. IV hydration begun in the emergency room including 2 L of normal saline with Inapsine as an antiemetic. Patient will be admitted to observation unit for further ongoing IV hydration and antiemetic therapy with possible GI consultation. Client remained stable throughout her several hour stay in the e mergency room. I have reviewed the nursing notes. I have reviewed the findings, diagnosis, plan and need for follow up with the patient. New Prescriptions No medications on file Final diagnoses: Dehydration Crohn's disease of both small and large intestine with complication 02/06/2012 [facility], [place], EMERGENCY DEPARTMENT Cristhian Roberts MD 02/06/12 0950 ATIENT PHYSICAL THERAPIST Nadya Dodd RN - 02/06/2012 7:00 AM CST diarrhea and nausea for the past week, has a history of crohns disease ATIENT PHYSICAL THERAPIST documented in this encounter Miscellaneous Notes Plan of Care - Wanda Parker RN - 02/06/2012 4:00 PM CST Problem: IP GENERAL POC-ADULT,OB,BEHAVIORAL [facility]CPM Goal: Discharge Planning (Adult, OB, Behavioral, Peds) Outcome: Adequate for Discharge Date Met: 02/06/12 Diarrhea if improved: Had 1 loose stool. Culture sent to lab. Tolerating PO fluid: YES, fluids No orthostatic BP decrease or HR increase with patient upright: NO. Denies pain; denies nausea. Ambulating in halls independently. Yes. ATIENT PHYSICAL THERAPIST Plan of Care - Marisol Irene RN - 02/06/2012 2:07 PM CST Problem: IP GENERAL POC-ADULT,OB,BEHAVIORAL [facility]CPM Goal: Discharge Planning (Adult, OB, Behavioral, Peds) Outpatient/Observation goals to be met before discharge home: Diarrhea if improved: Had 1 loose stool. Culture sent to lab. Tolerating PO fluid: YES, fluids and lunch tolerated well. Ordered more food. No orthostatic BP decrease or HR increase with patient upright: NO. Denies pain; denies nausea. ATIENT PHYSICAL THERAPIST Plan of Care - Marisol Irene RN - 02/06/2012 12:30 PM CST Problem: IP GENERAL POC-ADULT,OB,BEHAVIORAL [facility]CPM Goal: Discharge Planning (Adult, OB, Behavioral, Peds) Outpatient/Observation goals to be met before discharge home: Diarrhea if improved: Has had no stools since arrival to observation unit or arrival to hospital. Tolerating PO fluid: YES, fluids and lunch tolerated well. No orthostatic BP decrease or HR increase with patient upright: NO, Systolic BP decreased with standing and felt a little dizzy. ATIENT PHYSICAL THERAPIST Plan of Care - Marisol Irene RN - 02/06/2012 11:41 AM CST Problem: IP GENERAL POC-ADULT,OB,BEHAVIORAL [facility]CPM Goal: Discharge Planning (Adult, OB, Behavioral, Peds) Outpatient/Observation goals to be met before discharge home: Diarrhea if improved: NO. Tolerating PO fluid: NO. Has not taken po yet. No orthostatic BP decrease or HR increase with patient upright: NO ATIENT PHYSICAL THERAPIST documented in this encounter Plan of Treatment Not on filedocumented as of this encounter Procedures Procedure Name Priority Date/Time Associated Comments Diagnosis CBC WITH PLATELETS Timed 02/06/2012 2:12 PM Res ults for this OUTPATIENT PHYSICAL THERAPIST procedure are i n the results section. OVA AND PARASITE EXAM Routine 02/06/2012 1:55 PM Results for this [place] OUTPATIENT PHYSICAL THERAPIST procedure are i n the results section. CLOSTRIDIUM DIFFICILE Routine 02/06/2012 1:55 PM Results for this TOXIN B OUTPATIENT PHYSICAL THERAPIST procedure are i n the results section. STOOL CULTURE Routine 02/06/2012 1:55 PM Results for this OUTPATIENT PHYSICAL THERAPIST procedure are i n the results section. DRUG ABUSE SCREEN 6 STAT 02/06/2012 9:30 AM Re sults for this CHEM DEP URINE ([facility]) OUTPATIENT PHYSICAL THERAPIST proced ure are in the results section. CBC WITH PLATELETS & STAT 02/06/2012 8:00 AM R esults for this DIFFERENTIAL OUTPATIENT PHYSICAL THERAPIST procedure are i n the results section. LIPASE STAT 02/06/2012 8:00 AM Results f or this OUTPATIENT PHYSICAL THERAPIST procedure are i n the results section. LACTIC ACID WHOLE STAT 02/06/2012 8:00 AM Resu lts for this BLOOD OUTPATIENT PHYSICAL THERAPIST procedure are i n the results section. ERYTHROCYTE Routine 02/06/2012 8:00 AM Results f or this SEDIMENTATION RATE OUTPATIENT PHYSICAL THERAPIST procedure are in AUTO the results section. CRP INFLAMMATION Routine 02/06/2012 8:00 AM Resul ts for this OUTPATIENT PHYSICAL THERAPIST procedure are i n the results section. COMPREHENSIVE STAT 02/06/2012 8:00 AM Results for this METABOLIC PANEL OUTPATIENT PHYSICAL THERAPIST procedure ar e in the results section. UA MACROSCOPIC WITH STAT 02/06/2012 7:29 AM Re sults for this REFLEX TO MICRO AND OUTPATIENT PHYSICAL THERAPIST procedur e are in CULTURE the results section. documented in this encounter Results CBC with platelets (02/06/2012 2:12 PM OUTPATIENT PHYSICAL THERAPIST) athologist Signature WBC 9.9 4.0 - 11.0 [facility] 10e9/L [facility] RBC Count 4.66 3.8 - 5.2 [facility] 10e12/L [facility] Hemoglobin 14.0 11.7 - [facility] 15.7 g/dL [facility] Hematocrit 42.5 35.0 - [facility] 47.0 % [facility] MCV 91 78 - 100 [facility] fl [facility] MCH 30.0 26.5 - [facility] 33.0 pg [facility]AMPUS [facility] MCHC 32.9 31.5 - [facility] 36.5 g/dL [facility] RDW 13.7 10.0 - [facility] 15.0 % [facility] Platelet Count 219 150 - 450 [facility] 10e9/L [facility] Specimen Anatomical Collection Method Collection Time Receive d Time (Source) Location / / Volume Laterality Blood specimen 02/06/2012 2:12 PM 012 2:13 (specimen) OUTPATIENT PHYSICAL THERAPIST PM OUTPATIENT PHYSICAL THERAPIST Elizabeth Pena PA-C LAB - BLOOD ORDERABLES Performing Organization Address City/State/ZIP Code Phon e Number [facility] [address] [place] [address] [facility] Stool Culture, Routine (Salmonella, Shigella, Campylobacter, E. coli O157) (02/06/2012 1:55 PM OUTPATIENT PHYSICAL THERAPIST) Component Value Ref Test Analysis Performed At [facility] Method Time Signature Specimen Feces [facility] Shiga-Toxins Specimen older than two hour s and not received in preservative, therefore, test [facility] 1&2 cannot be performed. ??In t he future, all stools for enteric pathogens and shiga MICROBIOLOGY toxin must be received in p reservative that has been refrigerated or both tests will be cancelled. ??See Lab Guide for more detail. Culture Micro No Salmonella, Shigella, Cam pylobacter, E. coli O157, Aeromonas, or Plesiomonas [facility] isolated. MICROBIOLOGY Micro Report FINAL [facility] Status 02/09/2012 MICROBIOLOGY Specimen Anatomical Collection Method Collection Time Receive d Time (Source) Location / / Volume Laterality Stool specimen 02/06/2012 1:55 PM 012 2:56 (specimen) OUTPATIENT PHYSICAL THERAPIST PM OUTPATIENT PHYSICAL THERAPIST Elizabeth Pena PA-C LAB - MICRO ORDERABL ES Performing Organization Address City/[facility] Code Phon e Number [facility] [address] [place], [place] [id number] [place] [address] LABS [facility] MICROBIOLOGY Ova and Parasite Exam [place] (02/06/2012 1:55 PM OUTPATIENT PHYSICAL THERAPIST) Component Value Ref Test Analysis Performed At [facility] Method [place] Signature Source Feces [facility] Ova and FINAL 02/07/122030 [facility] Parasite Exam (Note) [facility] SOURCE: STOOL [facility] PARASITIC EXAMINATION ?FINAL No parasites seen. Cryptosporidium, Cyclospora, and microsporidia are not readily detected by this method. Single negative specimen does not rule out parasitic infection. Test Performed by: [facility], [place], [facility] [address] [place] [address] Psychologist Private Practice: Ritesh Tay III, M.D. Specimen Anatomical Collection Method Collection Time Receive d Time (Source) Location / / Volume Laterality Stool specimen 02/06/2012 1:55 PM 012 2:56 (specimen) OUTPATIENT PHYSICAL THERAPIST PM OUTPATIENT PHYSICAL THERAPIST Elizabeth Pena PA-C LAB - [employer] GENERAL ORDERABL ES Performing Organization Address City/[facility] Phon e Number [address] [address] [facility] Clostridium difficile toxin B PCR (02/06/2012 1:55 PM OUTPATIENT PHYSICAL THERAPIST) Component Value Ref Test Analysis Performed At [facility] Method Time Signature Specimen Feces [facility] Description [facility] C Diff Toxin B Negative: Clostridium diffic ile target DNA sequences NOT detected, presumed [facility] PCR negative for Clostridium di fficile toxin B or the number of bacteria present [facility] may be below the limit of detection for the test. [facility] FDA approved assay performed using [employer]pert real-t gama PCR. A negative result does not exclude actual disease due to Clostridium difficile and may be due to improper collection, handling and storage of the specimen or the number of organisms in the specimen is below the detection limit of the assay. Specimen Anatomical Collection Method Collection Time Receive d Time (Source) Location / / Volume Laterality Stool specimen 02/06/2012 1:55 PM 012 2:55 (specimen) OUTPATIENT PHYSICAL THERAPIST PM OUTPATIENT PHYSICAL THERAPIST Elizabeth Pena PA-C LAB - MICRO GENERAL ORDERABL ES Performing Organization Address [facility] Phon e Number [address] [address] [facility] Drug abuse screen 6 urine (tox) (02/06/2012 9:30 AM OUTPATIENT PHYSICAL THERAPIST) Component Value Ref Test Analysis Performed At [facility] [employer] Method Time Signature Amphetamine Qual Negative NEG [facility] Urine Cutoff for a negative amphetamine is 500 ng/mL or less. [facility] Barbiturates Qual Negative NEG [facility] Urine Cutoff for a negative barbiturate is 200 ng/mL or less. [facility] Benzodiazepine Negative NEG [facility] Qual Urine Cutoff for a negative benzodiazepine is 200 ng/mL or less . [facility] Cannabinoids Qual Negative NEG [facility] Urine Cutoff for a negative cannabinoid is 50 ng/mL or less. [facility] Cocaine Qual Negative NEG [facility] Urine Cutoff for a negative cocaine is 300 ng/mL or less. [facility] Ethanol Qual Negative NEG [facility] Urine Cutoff for a negative urine ethanol is 50 mg/dL or less. [facility] Opiates Negative NEG [facility] Qualitative Urine Cutoff for a negative opiate is 300 ng/mL or less. [facility] Specimen Anatomical Collection Method Collection Time Receive d Time (Source) Location / / Volume Laterality Urine specimen URINE SPECIMEN 02/06/2012 9:30 AM 02/05 (specimen) OBTAINED BY CLEAN OUTPATIENT PHYSICAL THERAPIST 10:[address] CATCH PROCEDURE / Unknown Cristhian Roberts MD LAB - URINE ORDERABLES Performing Organization Address City/[facility]/ZIP Code Phon e Number [address] LABS Erythrocyte sedimentation rate auto (02/06/2012 8:00 AM OUTPATIENT PHYSICAL THERAPIST) P athologist Signature Sed Rate 5 0 - 30 mm/h [facility] Specimen Anatomical Collection Method Collection Time Receive d Time (Source) Location / / Volume Laterality 02/06/2012 8:00 AM 2 8:13 OUTPATIENT PHYSICAL THERAPIST AM OUTPATIENT PHYSICAL THERAPIST Cristhian Roberts MD LAB - BLOOD ORDERABLES Performing Organization Address City/[facility]/ZIP Code Phon e Number [address] LABS CRP inflammation (02/06/2012 8:00 AM OUTPATIENT PHYSICAL THERAPIST) Analysis Performed At Patho logist Time Signature CRP Inflammation <5.0 0.0 - 8.0 [facility] mg/L [facility] Specimen Anatomical Collection Method Collection Time Receive d Time (Source) Location / / Volume Laterality 02/06/2012 8:00 AM 2 8:13 OUTPATIENT PHYSICAL THERAPIST AM OUTPATIENT PHYSICAL THERAPIST Cristhian Roberts MD LAB - BLOOD ORDERABLES Performing Organization Address City/State/ZIP Code Phon e Number [address] LABS (ABNORMAL) Lactic acid (02/06/2012 8:00 AM OUTPATIENT PHYSICAL THERAPIST) P athologist Signature Lactic Acid 3.3 (H) 0.7 - 2.1 [facility] mmol/L [facility] Specimen Anatomical Collection Method Collection Time Receive d Time (Source) Location / / Volume Laterality Blood specimen 02/06/2012 8:00 AM 012 8:14 (specimen) OUTPATIENT PHYSICAL THERAPIST AM OUTPATIENT PHYSICAL THERAPIST Cristhian Roberts MD LAB - BLOOD ORDERABLES Performing Organization Address City/[facility]/ZIP Code Phon e Number [address] LABS Lipase (02/06/2012 8:00 AM OUTPATIENT PHYSICAL THERAPIST) P athologist Signature Lipase 187 20 - 250 [facility] Specimen Anatomical Collection Method Collection Time Receive d Time (Source) Location / / Volume Laterality Blood specimen 02/06/2012 8:00 AM 012 8:13 (specimen) OUTPATIENT PHYSICAL THERAPIST AM OUTPATIENT PHYSICAL THERAPIST Cristhian Roberts MD LAB - BLOOD ORDERABLES Performing Organization Address City/State/ZIP Code Phon e Number [phone] [place], [place] [address] (ABNORMAL) Comprehensive metabolic panel (02/06/2012 8:00 AM OUTPATIENT PHYSICAL THERAPIST) Patholo gist Method Time Signature Sodium 143 133 - 144 [facility] mmol/L [facility] Potassium 3.7 3.4 - 5.3 [facility] mmol/L [facility] Chloride 108 94 - 109 [facility] mmol/L [facility] Carbon Dioxide 20 20 - 32 [facility] mmol/L [place] [facility] Anion Gap 14 6 - 17 [facility] mmol/L [facility] Glucose 122 (H) 60 - 99 [facility] mg/dL [facility] Urea Nitrogen 8 7 - 30 [facility] mg/dL [facility] Creatinine 0.70 0.52 - [facility] 1.04 mg/dL [facility] GFR Estimate 86 >60 [facility] mL/min/1.7 [facility] m2 [facility] GFR Estimate If >90 >60 [facility] Black mL/min/1.7 [place] m2 [facility]AMPUS [facility] Calcium 9.8 8.5 - 10.4 [facility] mg/dL [facility] Bilirubin Total 0.5 0.2 - 1.3 [facility] mg/dL [facility] Albumin 4.2 3.3 - 4.9 [facility] g/dL [facility] Protein Total 6.9 6.8 - 8.8 [facility] g/dL [facility] Alkaline 89 40 - 150 [facility] Phosphatase U/L [facility] ALT 14 0 - 50 U/L [facility] AST 23 0 - 45 U/L [facility] [place] [facility] Specimen Anatomical Collection Method Collection Time Receive d Time (Source) Location / / Volume Laterality Blood specimen 02/06/2012 8:00 AM 012 8:13 (specimen) OUTPATIENT PHYSICAL THERAPIST AM OUTPATIENT PHYSICAL THERAPIST Cristhian Roberts MD LAB - BLOOD ORDERABLES Performing Organization Address City/State/ZIP Code Phon e Number [facility] [address] [place] [address] [facility] ([facility]NORMAL[facility] CBC with platelets differential (02/06/2012 8:00 AM OUTPATIENT PHYSICAL THERAPIST) [employer] gist Method Time Signature WBC 11.0 4.0 - [facility] 11.0 [facility] 10e9/L [facility] RBC Count 5.35 (H) 3.8 - 5.2 [facility] 10e12/L [facility] Hemoglobin 16.2 (H) 11.7 - [facility] 15.7 g/dL [facility] Hematocrit 47.5 (H) 35.0 - [facility] 47.0 % [facility] MCV 89 78 - [address] [facility] [address] [facility] MCH 30.3 26.5 - [facility] 33.[address] [facility] MCHC 34.1 31.5 - [facility] 36.5 g/dL [facility] RDW 13.4 10.0 - [facility] 15.0 % [facility] Platelet Count 262 150 - 450 [facility] 10e9/L [facility] Diff Method Automated [facility] Method [facility] % Neutrophils 74.2 40 - 75 % [facility] % Lymphocytes 14.6 (L) 20 - 48 % [facility] % Monocytes 10.2 0 - 12 % [facility] % Eosinophils 0.5 0 - 6 % [facility] % Basophils 0.1 0 - 2 % [facility] % Immature 0.4 0 - 0.4 % [facility] Granulocytes [facility] Absolute 8.2 1.6 - 8.3 [facility] Neutrophil 10e9/L [facility] Absolute 1.6 0.8 - 5.3 [facility] Lymphocytes 10e9/L [facility] Absolute 1.1 0.0 - 1.3 [facility] Monocytes 10e9/L [facility] Absolute 0.1 0.0 - 0.7 [facility] Eosinophils 10e9/L [facility] Absolute 0.0 0.0 - 0.2 [facility] Basophils 10e9/L [facility] Abs Immature 0.0 0 - 0.03 [facility] Granulocytes 10e9/L [facility] Specimen Anatomical Collection Method Collection Time Receive d Time (Source) Location / / Volume Laterality Blood specimen 02/06/2012 8:00 AM 012 8:13 (specimen) OUTPATIENT PHYSICAL THERAPIST AM OUTPATIENT PHYSICAL THERAPIST Cristhian Roberts MD LAB - BLOOD ORDERABLES Performing Organization Address City/State/ZIP Code Phon e Number [address] [address] [facility] (ABNORMAL) UA reflex to microscopic and culture (02/06/2012 7:29 AM OUTPATIENT PHYSICAL THERAPIST) [employer] gist Method Time Signature Color Urine Straw [facility] Appearance Urine Clear [facility] Glucose Urine Negative NEG mg/dL [facility] Bilirubin Urine Negative NEG [facility] Ketones Urine Negative NEG mg/dL [facility] Specific [place] 1.002 (L) 1.003 - [facility] Urine 1.[address] [facility] Blood Urine Negative NEG [facility] pH Urine 5.5 5.0 - 7.0 [facility] pH [facility] Protein Albumin Negative NEG mg/dL [facility] Urine [facility] Urobilinogen Normal 0.0 - 2.0 [facility] mg/dL mg/dL [facility] Nitrite Urine Negative NEG [facility] Leukocyte Negative NEG [facility] Esterase Urine [facility] Source Midstream [facility] Urine [facility] Specimen Anatomical Collection Method Collection Time Receive d Time (Source) Location / / Volume Laterality Urine specimen URINE SPECIMEN 02/06/2012 7:29 AM 02/05 8:15 (specimen) OBTAINED BY CLEAN OUTPATIENT PHYSICAL THERAPIST AM OUTPATIENT PHYSICAL THERAPIST CATCH PROCEDURE / Unknown Cristhian Roberts MD LAB - URINE ORDERABLES Performing Organization Address City/[facility]/ZIP Code Phon e Number [address] [address] [facility] documented in this encounter Visit Diagnoses Diagnosis Dehydration - Primary Crohn's disease of both small and large intestine with complication (H) 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 Avoid taking with grapefruit juice buPROPion (WELLBUTRIN SR) 12 hr tablet 150 Given 02/06/2012 12:25 PM OUTPATIENT PHYSICAL THERAPIST 150 mg mg 150 mg, Oral, 2 TIMES DAILY, First dose on Sat02/06/12 at 1130, DO NOT CRUSH. dextrose 5 % and 0.9 % NaCl + KCl 20 New Bag 02/06/2012 12:[address] 125 mL/hr mEq/L at 125 mL/hr, Intravenous, CONTINUOUS, Starting on Sat02/06/12 at 1130, Until Sat02/06/12 at 1913 droperidol (INAPSINE) injection 0.625 mg Given 02/06/2012 9:23 AM OUTPATIENT PHYSICAL THERAPIST 0.625 mg 0.625 mg, Intravenous, ONCE, On Sat02/06/12 at 0747, For 1 dose, If dose >1.25mg the patient needs a baseline EKG to r/o prolonged QT interval. Do not use drug if QT >440 for males or >450 for females. mine motor operator is required for 3 hours after a dose >1.25mg. predniSONE (DELTASONE) tablet 10 mg Given 02/06/2012 1:47 PM OUTPATIENT PHYSICAL THERAPIST 10 mg 10 mg, Oral, DAILY, First dose on Sat02/06/12 at 1315 propranolol (INDERAL) tablet 20 mg Given 02/06/2012 1:47 PM OUTPATIENT PHYSICAL THERAPIST 20 mg 20 mg, Oral, DAILY, First dose on Sat02/06/12 at 1300 sodium chloride 0.9 % BOLUS New Bag 02/06/2012 9:22 AM OUTPATIENT PHYSICAL THERAPIST 2,000 m Ls 2000 mL/hr 2,000 mL Intravenous, 2,000 mL, ONCE, at 2,000 mL/hr, Administer over 1 Hours, On Sat02/06/12 at 0747, For 1 dose venlafaxine (EFFEXOR-ER) 24 hr tablet 15 0 mg Given 02/06/2012 12:25 PM OUTPATIENT PHYSICAL THERAPIST 150 mg 150 mg, Oral, DAILY, First dose on Sat02/06/12 at 1130, DO NOT CRUSH. documented in this encounter Active and Recently Administered Medications Times are shown in OUTPATIENT PHYSICAL THERAPIST. Scheduled Medication Order 02/04/2012 02/05/2012 02/06/2012 ALPRAZolam (XANAX XR) 24 hr tablet 2 mg (CANCELED) 1220 (Given - Provider: Marisol Irene RN) 2 mg, Oral, EVERY MORNING, First dose on Sat02/06/12 at 1130, DO NOT CRUSH. Avoid taking with grapefruit juice buPROPion (WELLBUTRIN SR) 12 hr tablet 150 mg (CANCELED) 1225 (Given - Provider: Marisol Irene RN) 150 mg, Oral, 2 TIMES DAILY, First dose on Sat02/06/12 at 1 130, DO NOT CRUSH. droperidol (INAPSINE) injection 0.625 mg (COMPLETED) 09 (Given - Provider: Ning Clarke RN) 0.625 mg, Intravenous, ONCE, Sat 2 at 0747, For 1 dose, If dose >1.25mg the patient needs a baseline EKG to r/o prolonged QT interval. Do not use drug if QT >440 for males or >450 for fe males. mine motor operator is required for 3 hours after a dose >1.25mg. predniSONE (DELTASONE) tablet 10 mg (CANCELED) 1347 (Given - Provider: Diana Merritt RN) 10 mg, Oral, DAILY, First dose on Sat02/06/12 at 1315 propranolol (INDERAL) tablet 20 mg (CANCELED) 1347 (Given - Provider: Diana Merritt RN) 20 mg, Oral, DAILY, First dose on Sat02/06/12 at 1300 sodium chloride 0.9 % BOLUS 2,000 mL (COMPLETED) 0922 (New Bag - Provider: Ning Clarke RN)1008 (ED Infusing on Admission/transfer - Provider: Ning Clarke RN) Intravenous, 2,000 mL, ONCE, at 2,000 mL /hr, for 1 Hours, Sat02/06/12 at 0747, For 1 dose venlafaxine (EFFEXOR-ER) 24 hr tablet 150 mg (CANCELED) 1225 (Given - Provider: Marisol Irene RN) 150 mg, Oral, DAILY, First dose on Sat02/06/12 at 1130, DO NOT CRUSH. Continuous Medication Order 02/04/2012 02/05/2012 02/06/2012 dextrose 5 % and 0.9 % NaCl + KCl 20 mEq/L (CANCELED) 1219 (New Bag - Provider: Marisol Irene RN)1649 (Stopped - Provider: Wanda Parker RN) Intravenous, at 125 mL/hr, CONTINUOUS, Starting Sat02/06/12 at 1130 documented in this encounter Care Teams Top Screw Relationship Specialty Start Date End Date Edison Tam MD PCP - General Family Practice 09/21/11 07/22/14 909 [facility] 4 [place] [address] documented as of this encounter
--- OUTSIDE RECORDS SUMMARY | 2021-10-24 12:07 | XMS_ITS | Encounter Summary ---
:1955 Author Organization [place] Address [address] [place] [address] Care Team Providers Name Role Phone Edison Tam MD Primary Care Provider Reason for Visit Reason Onset Date Comments Patient Request 01/24/2012 Encounter Details Date Type Department Care Team Description 01/24/2012 Telephone Dermatology Serg Melgar, Patient Request 5th Floor, Clinic 5A MD Luke Barahona[address] [place], [place] [address] [place], [place] [phone] (Wo rk) Social History Tobacco Use Types Packs/Day Years Used Date Former Smoker 1 18 Smokeless Tobacco: Former User Q uit: 09/20/1991 Alcohol Use Standard Drinks/Week Comments No 0 (1 standard drink = 0.6 oz pure alcoho l) Sex Assigned at Date Recorded Not on file documented as of this encounter Miscellaneous Notes Telephone Encounter - Anuja Berrios - 01/24/2012 11:34 AM CST Patient called today and needed to cancel her appointment. I let her know I will talk to to see if someone will be able to the pt on Saturday02/04/12 since she has an appointment with her PCC that day. I talked to and he said it is okay for the pt to be seen on the nurse schedule Saturday02/04/12 @ 1:15 and the LUIS ALBERTO at the time can see the pt if they need to they can go get in Derm/Surg OPATHIC NEUROLOGIST documented in this encounter Plan of Treatment Not on filedocumented as of this encounter Visit Diagnoses Not on filedocumented in this encounter Care Teams Upholsterer Apprentice Relationship Specialty Start Date End Date Edison Tam MD PCP - General Family Practice 09/21/11 07/22/14 909 [facility] 4 [place] [address] documented as of this encounter
--- OUTSIDE RECORDS SUMMARY | 2021-10-24 12:07 | XMS_ITS | Encounter Summary ---
:1955 Author Organization [place] Address [address] [place] [address] Care Team Providers Name Role Phone Edison Tam MD Primary Care Provider Reason for Visit Reason Onset Date Comments Patient Request 05/26/2012 case mgr Encounter Details Date Type Department Care Team Description 05/26/2012 Telephone [facility], Primary Edison Tam Patient Request (case Care Center MD Marcia online communications manager) 3rd Floor, Clinic [address] [place] [address] [place], [place] (Work) [phone] [phone] Social History Tobacco Use Types Packs/Day Years Used Date Former Smoker 1 18 Smokeless Tobacco: Former User Q uit: 09/20/1991 Alcohol Use Standard Drinks/Week Comments No 0 (1 standard drink = 0.6 oz pure alcoho l) Sex Assigned at Date Recorded Not on file documented as of this encounter Miscellaneous Notes Telephone Encounter - Edison Tam MD - 05/26/2012 3:07 PM CDT I checked with [facility] and they said we needed a Nursing eval & treat order to get a case mgr on her case. There are still some sections of the order that need to be filled out. Thanks much, Joseph Hernandez JOINTER MACHINE OPERATOR I reviewed and completed referral. Edison Tam Telephone Encounter - Joseph Hernandez RN - 05/26/2012 2:45 PM CDT Message copied by JOSEPH HERNANDEZ on SatMay 26, 2012 2:45 PM ------ Message from: TAMY CLINTON Created: SatMay 26, 2012 11:41 AM Regarding: Pt asking for employment evaluator/case manager Contact: Pt calling to state that at one time, Dr. Tam discussed having a employment evaluator/case manager assigned to work with the Pt. Pt is asking if this can happen. Pls call her at [phone] to discuss. 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
--- OUTSIDE RECORDS SUMMARY | 2021-10-24 12:07 | XMS_ITS | Encounter Summary ---
:1955 Author Organization [place] Address [address] [place] [address] Care Team Providers Name Role Phone Edison Tam MD Primary Care Provider Reason for Visit Reason Onset Date Comments Previsit 03/26/2012 Encounter Details Date Type Department Care Team Description 03/26/2012 PRE VISIT Physicians, Primary Care Sick , Elie Kennedy MD Previsit Center [address] [place] [address] 741 3rd Floor, Clinic 3A [place] [address] [facility] 6 [facility] 88 [place], [place] [phone] Social History Tobacco Use Types Packs/Day Years Used Date Former Smoker 1 18 Smokeless Tobacco: Former User Q uit: 09/20/1991 Alcohol Use Standard Drinks/Week Comments No 0 (1 standard drink = 0.6 oz pure alcoho l) Sex Assigned at Date Recorded Not on file documented as of this encounter Miscellaneous Notes Telephone Encounter - Zeina Flores - 03/26/2012 9:02 AM CST Pre-Visit planning Appointment Type: What is the reason for the appt? ONGOING SINUS PROBLEM Medication list reviewed and/or updated Via Allscripts: Immunization record was reviewed and/or updated Via Allscripts Via [employer] Open Orders Due? US, DEXA, MAMMOGRAM. XRAY, MRI, TSH, calcium, antinuclear antibody screening Zeina Flores LPN 9:05 AM on 03/26/2012 AND CO FOUNDER documented in this encounter Plan of Treatment Not on filedocumented as of this encounter Visit Diagnoses Not on filedocumented in this encounter Care Teams Lecturer In Marketing Relationship Specialty Start Date End Date Edison Tam MD PCP - General Family Practice 09/21/11 07/22/[address] [place] [address] documented as of this encounter
--- OUTSIDE RECORDS SUMMARY | 2021-10-24 12:07 | XMS_ITS | Encounter Summary ---
:1955 Author Organization [place] Address [address] [place] [address] Care Team Providers Name Role Phone Edison Tam MD Primary Care Provider Reason for Visit Reason Onset Date Comments Symptoms 02/11/2012 Encounter Details Date Type Department Care Team Description 02/11/2012 Telephone Dermatology Serg Melgar MD Symptoms 5th Floor, Clinic [address] [address] [facility] [place] [phone] Social History Tobacco Use Types Packs/Day Years Used Date Former Smoker 1 18 Smokeless Tobacco: Former User Q uit: 09/20/1991 Alcohol Use Standard Drinks/Week Comments No 0 (1 standard drink = 0.6 oz pure alcoho l) Sex Assigned at Date Recorded Not on file documented as of this encounter Miscellaneous Notes Telephone Encounter - Anuja Berrios - 02/12/2012 11:53 AM CST I left a message for the pt letting her know would like to see her. He says it sounds like the effudex was doing what we expected. TRONIC DATA INTERCHANGE SPECIALIST Telephone Encounter - Anuja Berrios - 02/11/2012 12:16 PM CST Patient called stating she started the Effudex and it is very costly. She has had a reaction to it feliz and her skin is very itchy and it kept her up all night she talked to her pharmacist and was told to stop it. And 2 days later the itching went away. She is wanting to know what she should do now TRONIC DATA INTERCHANGE SPECIALIST documented in this encounter Plan of Treatment Not on filedocumented as of this encounter Visit Diagnoses Not on filedocumented in this encounter Care Teams Mapping Pilot Relationship Specialty Start Date End Date Edison Tam MD PCP - General Family Practice 09/21/11 07/22/14 889 [facility] 4 [place] [address] documented as of this encounter
--- OUTSIDE RECORDS SUMMARY | 2021-10-24 12:07 | XMS_ITS | Encounter Summary ---
:1955 Author Organization [place] Address [address] [place] [address] Care Team Providers Name Role Phone Edison Tam MD Primary Care Provider Reason for Visit Reason Onset Date Comments Refill Request 04/29/2012 Prednisone Encounter Details Date Type Department Care Team Description 04/29/2012 Refill [facility], Primary Edison Tam Refill Request Care Center MD Marcia (Prednisone) 3rd Floor, Clinic [address] [place] [address] [place] [address] Social History Tobacco Use Types Packs/Day Years Used Date Former Smoker 1 18 Smokeless Tobacco: Former User Q uit: 09/20/1991 Alcohol Use Standard Drinks/Week Comments No 0 (1 standard drink = 0.6 oz pure alcoho l) Sex Assigned at Date Recorded Not on file documented as of this encounter Miscellaneous Notes Telephone Encounter - Edison Tam MD - 04/29/2012 2:17 PM CST I reviewed the request. I approved prednisone 10 mg daily quantity (90) with no refills. I tried to call patient number at [phone] with multiple busy signals on the 3 times I tried to call her. I was able to reach her At and give her the message that I filled her medication as noted above and to have GI continue medication recommendations for her Crohn's disease. If she is on chronic prednisone, she should not abruptly discontinue. She should continue with her plans to follow-up with GI. All questions were addressed and voiced understanding and agreement with the above. Edison Tam L SPRAYER MACHINED PARTS Telephone Encounter - Adriana Franklin RN - 04/29/2012 1:51 PM CST Spoke with patient, advised that since we have never prescribed this medication, that the prescription needs to come from her primary care doctor. When questioned if the refill would be available today, I advised that we do require a 3-day turn around for any non-narcotic medication requests, also noting that Dr. Tam is not due in clinic until 05/01/12, so I would be unable to guarantee a new prescription today. Patient became upset stating that without the medication she will end up either in the emergency room or and if either happens she will regla us for negligence. I advised that I can check with my nurse donor relations manager to see what he recommends, or that she can always make an appointment to be seen by another provider in clinic for further review. Patient was still upset with this. I advised that I would work on this, and get an answer for advisement and contact her today. (huddled with Dr. Stovall who states that he could write a Rx for a 3-day supply until Dr. Tam is able to review this medication-on arrival back to my desk I had the message below in my in box: The pt called and stated that she wants you to know that she has taken care of the situation for thetime being until Dr. Tam can review the situation. The pt has received an emergency supply of Prednisone and will be awaiting for Dr. Tam to submit the prescription to the pharmacy for the prednisone refill. For any questions, the pt can be reached at [phone] -medication set up for Dr. Tam to review. I did confirm the dose and directions with patient) L SPRAYER MACHINED PARTS Telephone Encounter - Adriana Franklin RN - 04/29/2012 1:51 PM CST Pt stated she took her last dose of Prednisone this morning and is requesting that Dr. Anel anne writing the Rx at least until her appt at the GI Clinic. It had been previously prescribed by her GP in [place]. She is asking that the Rx be sent to her pharmacy today because she isn't able togo a day without it. Please call her on her cell phone at [phone] to let her know if this can be taken care of today L SPRAYER MACHINED PARTS documented in this encounter Plan of Treatment Not on filedocumented as of this encounter Visit Diagnoses Diagnosis Crohn's disease (H) - Primary Regional enteritis of unspecified site documented in this encounter Care Teams Methods Study Analyst Relationship Specialty Start Date End Date Edison Tam MD PCP - General Family Practice 09/21/11 07/22/[address] [address] documented as of this encounter
--- OUTSIDE RECORDS SUMMARY | 2021-10-24 12:07 | XMS_ITS | Encounter Summary ---
:1955 Author Organization [place] Address [address] [place] [address] Care Team Providers Name Role Phone Edison Tam MD Primary Care Provider Reason for Visit Reason Onset Date Comments Pre Visit Planning - Done 04/17/2012 Encounter Details Date Type Department Care Team Description 04/17/2012 PRE VISIT Colon and Rectal Alphonso Suresh MD Pre Visit Planning - Surgery Clinic [address] [facility] Done [place] [address] [place], [place] 1st Floor, Clinic [address] [place] [address] [place] [address] Social History Tobacco Use Types Packs/Day Years Used Date Former Smoker 1 18 Smokeless Tobacco: Former User Q uit: 09/20/1991 Alcohol Use Standard Drinks/Week Comments No 0 (1 standard drink = 0.6 oz pure alcoho l) Sex Assigned at Date Recorded Not on file documented as of this encounter Miscellaneous Notes Telephone Encounter - Amira Caraballo - 04/17/2012 2:48 PM CST Date of Call: April 17, 2012 Phone Numbers: Work Phone Not on file. Reached Patient: Yes Reason for Visit: Pre Visit Planning - Done Problem List: Patient Active Problem List Diagnosis Date Noted ??? Sinus infection 03/27/2012 ??? Dehydration 02/06/2012 ??? Neoplasm of uncertain behavior of skin 02/02/2012 ??? Pyelonephritis 01/21/2012 ??? Concussion 12/13/2011 ??? Restless leg syndrome 12/13/2011 ??? Right wrist fracture 12/13/2011 ??? Fall 12/03/2011 ??? Cholelithiases 11/07/2011 ??? Sacro-iliac pain 11/01/2011 ??? Dermatitis 11/01/2011 ??? Fibrosis of skin 11/01/2011 ??? Adjustment disorder with mixed anxiety and depressed mood 09/20/2011 Dr Hope ??? Fatigue 09/20/2011 ??? Renal mass, right 09/20/2011 ??? Yossi's thyroiditis 09/19/1989 Currently hypothyroid (Problem list name updated by automated process. Provider to review and confirm.) ??? Crohn's disease of both small and large intestine with complication 09/20/1987 Surgical resection Intermittent obstruction Patient Care Team: Edison Tam MD as PCP - General (Family Practice) Referred by: provider PCP: Edison Tam History Substance Use Topics ??? Smoking status: Former Smoker -- 1.0 packs/day for 18 years ??? Smokeless tobacco: Former User Quit date: 09/20/1991 ??? Alcohol Use: No Current Outpatient Prescriptions Medication Sig ??? buprenorphine HCl-naloxone HCl (SUBOXONE) 8-[address] the tongue. Dr Pelaez ??? [id number] Might-a mins spectrum once daily (Digestive Enzymes) ??? Carboxymethylcellulose Sodium (REFRESH TEARS OP) Apply to eye. ??? Potassium Chloride CR 8 MEQ CPCR Take 16 mEq by mouth daily. ??? Levothyroxine Sodium 50 MCG CAPS Take 1 tablet by mouth daily. ??? clotrimazole (LOTRIMIN) 1 % cream Apply topically 2 times daily. ??? rOPINIRole (REQUIP) 0.5 MG tablet Take 1 tablet by mouth At Bedtime. ??? propranolol (INDERAL) 20 MG tablet Take 1 tablet by mouth daily. ??? fluorouracil (EFUDEX) 5 % cream Apply topically to bilateral forearms and hands twice daily ??? PREDNISONE PO Take 10 mg by mouth daily. ??? multivitamin, therapeutic with minerals (THERA-VIT-M) TABS Take 1 tablet by mouth daily. ??? zoledronic Acid (RECLAST) 5 MG/100ML SOLN Inject 5 mg into the vein. Annually in the beginning of the year ??? buPROPion (WELLBUTRIN SR) 150 MG 12 hr tablet Take 150 mg by mouth 2 times daily. AM and 1 PM ??? cyanocobalamin 1000 MCG/ML injection Inject 1 mL into the muscle every 30 days. ??? guaiFENesin (MUCINEX) 600 MG 12 hr tablet Take 600 mg by mouth 2 times daily as needed. ??? Menthol, Topical Analgesic, (ICY HOT EX) Externally apply topically. Patient uses Gel, Cream andPatch PRN ??? ALPRAZolam (XANAX XR) 2 MG 24 hr tablet Take 2 mg by mouth every morning. ??? Loperamide HCl (IMODIUM A-D PO) Take by mouth. 8-10 tablets twice daily ??? Calcium Citrate-Vitamin D (CITRACAL + D [...] Profound lethargy ??? Tramadol Itching and Rash Preferred Pharmacies: [facility] [address] [place] [address] & [address] [phone] Patient instructions: Bring outside medical records, images, and/or studies Arrive 15 minutes early If health history form was received in the mail please bring to the appointment, or arrive early to complete health history form if patient did not receive. ARCH TECHNICIAN documented in this encounter Plan of Treatment Not on filedocumented as of this encounter Visit Diagnoses Not on filedocumented in this encounter Care Teams Cardiovascular Operating Room Nurse Relationship Specialty Start Date End Date Edison Tam MD PCP - General Family Practice 09/21/11 07/22/14 9[address] [facility] 4 [place] [address] documented as of this encounter
--- OUTSIDE RECORDS SUMMARY | 2021-10-24 12:07 | XMS_ITS | Encounter Summary ---
:1955 Author Organization [place] Address [address] [place] [address] Care Team Providers Name Role Phone Edison Tam MD Primary Care Provider Reason for Visit Reason Onset Date Comments Medication Question 02/13/2012 Encounter Details Date Type Department Care Team Description 02/13/2012 Telephone Dermatology Serg Melgar, Medication Question 5th Floor, Clinic 5A MD [place] [id number] [facility] [address] [place] [address] [phone] (Wo rk) Social History Tobacco Use Types Packs/Day Years Used Date Former Smoker 1 18 Smokeless Tobacco: Former User Q uit: 09/20/1991 Alcohol Use Standard Drinks/Week Comments No 0 (1 standard drink = 0.6 oz pure alcoho l) Sex Assigned at Date Recorded Not on file documented as of this encounter Miscellaneous Notes Telephone Encounter - Anuja Berrios - 02/13/2012 2:09 PM CST would like her to try Aldara on Saturday, Saturday and Fridays. Than he wants her seen in 3 weeks. I left a message for the pt explaining this. I told her to call with any other questions or concerns. HAULER documented in this encounter Plan of Treatment Not on filedocumented as of this encounter Visit Diagnoses Diagnosis AK (actinic keratosis) - Primary Actinic keratosis documented in this encounter Care Teams Topology Professor Relationship Specialty Start Date End Date Edison Tam MD PCP - General Family Practice 09/21/11 07/22/14 909 [facility] 4 [place] [address] documented as of this encounter
--- OUTSIDE RECORDS SUMMARY | 2021-10-24 12:07 | XMS_ITS | Encounter Summary ---
:1955 Author Organization [place] Address [address] [place] [address] Care Team Providers Name Role Phone Edison Tam MD Primary Care Provider Reason for Visit Reason Onset Date Comments Refill Request 05/01/2012 propranolol Encounter Details Date Type Department Care Team Description 05/01/2012 Refill [facility], Primary Edison Tam Refill Request Care Center MD Marcia (propranolol) 3rd Floor, Clinic 3A [address] [place] [address] [facility] [place] [address] Social History Tobacco Use Types [...] dennis documented in this encounter Care Teams Line Haul Driver Relationship Specialty Start Date End Date Edison Tam MD PCP - General Family Practice 09/21/11 07/22/[address] [id number] documented as of this encounter
--- OUTSIDE RECORDS SUMMARY | 2021-10-24 12:07 | XMS_ITS | Encounter Summary ---
:1955 Author Organization [place] Address [address] [place] [address] Care Team Providers Name Role Phone Edison Tam MD Primary Care Provider Reason for Visit Reason Onset Date Comments Pt. Information/instruction 02/21/2012 Encounter Details Date Type Department Care Team Description 02/21/2012 Telephone Dermatology Serg Melgar Pt. 5th Floor, Clinic 5A MD [place] Information/instructderrick [facility] [address] [facility] [address] [place] [address] [phone] (Wo rk) Social History Tobacco Use Types Packs/Day Years Used Date Former Smoker 1 18 Smokeless Tobacco: Former User Q uit: 09/20/1991 Alcohol Use Standard Drinks/Week Comments No 0 (1 standard drink = 0.6 oz pure alcoho l) Sex Assigned at Date Recorded Not on file documented as of this encounter Miscellaneous Notes Telephone Encounter - Anuja Berrios - 02/21/2012 11:37 AM CST Patient called stating the Aldara cream cost over $200 so she did not get it. She is going to try the effudex again a little at a time to see if she can tolerate it. RVISOR INTELLIGENCE ANALYST documented in this encounter Plan of Treatment Not on filedocumented as of this encounter Visit Diagnoses Not on filedocumented in this encounter Care Teams Truck Crane Operator Relationship Specialty Start Date End Date Edison Tam MD PCP - General Family Practice 09/21/11 07/22/14 909 [facility] 4 [place] [address] documented as of this encounter
--- OUTSIDE RECORDS SUMMARY | 2021-10-24 12:07 | XMS_ITS | Encounter Summary ---
:1955 Author Organization [place] Address [address] [place] [address] Care Team Providers Name Role Phone Edison Tam MD Primary Care Provider Reason for Visit Reason Onset Date Comments Previsit 03/24/2012 Left message on [employer] email regarding appt date/time Encounter Details Date Type Department Care Team Description 03/24/2012 PRE VISIT Colon and Rectal Alphonso Suresh MD Previsit (Left message Surgery Clinic [address] [facility] on voicemail regarding [facility] 450 appt date/time) [place], [place] 1st Floor, Clinic [address] [place] [address] [place] [address] Social History Tobacco Use Types Packs/Day Years Used Date Former Smoker 1 18 Smokeless Tobacco: Former User Q uit: 09/20/1991 Alcohol Use Standard Drinks/Week Comments No 0 (1 standard drink = 0.6 oz pure alcoho l) Sex Assigned at Date Recorded Not on file documented as of this encounter Miscellaneous Notes Telephone Encounter - Amira Caraballo - 03/24/2012 3:36 PM CST Date of Call: March 24, 2012 Phone Numbers: Work Phone Not on file. Reached Patient: No - left message: on voicemail Reason for Visit: Previsit Problem List: Patient Active Problem List Diagnoses Date Noted ??? Dehydration 02/06/2012 ??? Neoplasm of uncertain [...] No Current Outpatient Prescriptions Medication Sig ??? rOPINIRole (REQUIP) 0.5 MG tablet Take 1 tablet by mouth At Bedtime. ??? propranolol (INDERAL) 20 MG tablet Take 1 tablet by mouth daily. ??? imiquimod (ALDARA) 5 % cream Apply topically three times a week. Apply topically to affected area(s) three times a week. Saturday, Saturday, and Saturday ??? fluorouracil (EFUDEX) 5 % cream Apply topically to bilateral forearms and hands twice daily ??? buprenorphine HCl-naloxone HCl (SUBOXONE) 8-[address] under the tongue as needed. ??? Levothyroxine Sodium 50 MCG CAPS Take 1 tablet by mouth daily. ??? venlafaxine (EFFEXOR-XR) 75 MG 24 hr capsule Take 150 mg by mouth daily. ??? PREDNISONE PO Take 10 mg by mouth daily. ??? multivitamin, therapeutic with minerals (THERA-VIT-M) TABS Take 1 tablet by mouth daily. ??? buprenorphine HCl-naloxone HCl (SUBOXONE) 8-[address] 0.5 tablets under the tongue 2 timesdaily as needed. pain ??? zoledronic Acid (RECLAST) 5 MG/100ML SOLN Inject 5 mg into the vein. Annually in the beginning of the year ??? buPROPion (WELLBUTRIN SR) 150 MG 12 hr tablet Take 150 mg by mouth 2 times daily. AM and 1 PM ??? cyanocobalamin 1000 MCG/ML injection Inject 1 mL into the muscle every 30 days. ??? Potassium Chloride Nancy CR (K-DUR PO) Take 16 mEq by mouth 3 times daily. ??? guaiFENesin (MUCINEX) 600 MG 12 hr tablet Take 600 mg by mouth 2 times daily as needed. ??? UNABLE TO FIND nightly as needed. MEDICATION NAME: Calms Forte ??? Menthol, Topical Analgesic, (ICY HOT EX) Externally apply topically. Patient uses Gel, Cream andPatch PRN ??? Acetaminophen (TYLENOL EXTRA STRENGTH PO) Take 2 tablets by mouth 2 times daily as needed. ??? ergocalciferol (ERGOCALCIFEROL) [address]88 UNIT capsule One capsule twice weekly - and ??? ALPRAZolam (XANAX XR) 2 MG 24 hr tablet Take 2 mg by mouth every morning. ??? rOPINIRole (REQUIP) 5 MG tablet Take 10 mg by mouth At Bedtime. Indications: Restless Leg Syndrome ??? Loperamide HCl (IMODIUM A-D PO) Take [...] Childhood reaction ??? Tramadol Itching and Rash [facility]: [facility] [address] [address] Patient instructions: Bring outside medical records, images, and/or studies Arrive 15 minutes early If health history form was received in the mail please bring to the appointment, or arrive early to complete health history form if patient did not receive. 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
--- OUTSIDE RECORDS SUMMARY | 2021-10-24 12:07 | XMS_ITS | Encounter Summary ---
:1955 Author Organization [facility] Address [address] [place] [address]. [place] [address] Care Team Providers Name Role Phone Edison Tam MD Primary Care Provider Reason for Visit Reason Comments Consult Here to discuss multiple fis tulas Encounter Details Date Type Department Care Team Description 04/22/2012 Office Visit Colon and Rectal Alphonso Suresh MD Crohn's disease of Surgery Clinic [address] both small and large [facility] [address] intestine with Building [place], [place] complication (H) 1st Floor, Clinic 1E [address] (Primary Dx) 6 [facility] [phone] [address] (Work) [place] [address] Social History Tobacco Use Types Packs/Day Years Used Date Former Smoker 1 18 Smokeless Tobacco: Former User Q uit: 09/20/1991 Alcohol Use Standard Drinks/Week Comments No 0 (1 standard drink = 0.6 oz pure alcoho l) Sex Assigned at Date Recorded Not on file documented as of this encounter Last Filed Vital Signs Vital Sign Reading Time Taken Comments Blood Pressure 118/73 04/22/2012 2:07 PM BACK ROLLER Pulse 96 04/22/2012 2:07 PM BACK ROLLER Temperature - - Respiratory Rate - - Oxygen Saturation 93% 04/22/2012 2:07 PM BACK ROLLER Inhaled Oxygen Concentration - - Weight 59.9 kg (132 lb) 04/22/2012 2:07 PM BACK ROLLER Height 156.8 cm (5' 1.75) 04/22/2012 2:07 PM BACK ROLLER Body Mass Index 24.34 04/22/2012 2:07 PM BACK ROLLER documented in this encounter Progress Notes Alphonso Suresh MD - 04/22/2012 4:36 PM CST Colon and Rectal Surgery Clinic Note RE: Maria E Norman : 1955 GIDEON: 04/22/2012 Maria E is seen today at the request of Dr. Edison Tam for ongoing care of her Crohn's disease. In brief, Maria E has had Crohn's disease for over 40 years. She has been on prednisone since that timeand continues currently on a dose of 10 mg per day. Maria E fairly recently relocated to [place] and wants to establish care at [facility]. She had 3 prior surgeries for Crohn's disease in [place] datingback to the . She was seen for medical management of her Crohn's disease at the [facility] by Dr. Bustamante and evidently was on trials of both Remicade and Humira without success. She says nobody has been able to taper her off of her prednisone. Maria E reports that her last colonoscopy was around 2009 and that this showed only mild inflammation at her anastomosis, but no active Crohn's colitis. Maria E says her appetite is only fair, and she has intermittent nausea. She does not vomit. She reports that she occasionally passes gas in her urine and has had occasional urinary tract infections. She has never noted fecaluria. She says when she has diarrhea, there is seepage of stool from her vagina as well as from her anus. Maria E's continent status is compromised. She has relatively regular small accidents, so she wears protective pads. She says she has major losses of stool roughly 5 times monthly. PHYSICAL EXAMINATION: Perianal examination shows a narrow anal orifice with irregularity that looks surgical. There is scarring particularly right anterolateral, and there is a particularly notable depressed scar right anterolateral. There is a minute opening in this that might be compatible with a fistula, but there is no drainage or granulation tissue. Digital rectal examination shows no masses or obvious fistulas. Anoscopy shows normal-looking rectal mucosa and no signs of proctitis. No internal fistula. No openings are seen. IMPRESSION: Long-standing Crohn's disease with steroid dependence that ought best be addressed if atall possible. The patient is scheduled to see Dr. Salazar in Gastroenterology in about a month for this. This has been an extremely long- standing disease, and there is no particular urgency, as the situation seems quite stable. With respect to surgery, the pneumaturia and urinary tract infections at least raise the question of an enterovesical fistula, though it is reassuring that there is no fecaluria. Maria E seems to be getting along, and I do not see urgent surgical indication. I think for the time being we should await her medical evaluation. Imaging may help delineate her anatomy, show the amount of residual small bowel and confirm or deny the presence of some type of vaginal or bladder fistula that is suggested by the history. I will leave the evaluation up to Dr. Salazar when he sees Maria E next. Maria E is quite happy just to establish contact at the present time and has no particular interest in surgery. I told her I would be happy to see her anytime should the need arise. cc: Edison Tam MD [facility] [address] For details of past medical history, surgical history, family history, medications, allergies, and review of systems, please see details below. Medical history: Past Medical History Diagnosis Date [...] ??? Malignant neoplasm hand skin cancer (left) Surgical history: Past Surgical History Procedure Date ??? Appendectomy [...] vag- no hx uti's ??? Colonoscopy Family history: Family History Problem Relation Age [...] ??? Colon Polyps No family hx of Medications: Current Outpatient Prescriptions Medication Sig ??? LOPERAMIDE HCL PO Take 1 tablet by mouth daily. ??? multivitamin (THERA-PLUS) LIQD Take 5 mLs by mouth daily. ??? SCAN-PTG-[id number] Might-a mins spectrum once daily (Digestive Enzymes) ??? Carboxymethylcellulose Sodium (REFRESH TEARS OP) Apply to eye. ??? Potassium Chloride CR 8 MEQ CPCR Take 16 mEq by mouth daily. ??? Levothyroxine Sodium 50 MCG CAPS Take 1 tablet by mouth daily. ??? rOPINIRole (REQUIP) 0.5 MG tablet Take 1 tablet by mouth At Bedtime. ??? propranolol (INDERAL) 20 MG tablet Take 1 tablet by mouth daily. ??? fluorouracil (EFUDEX) 5 % cream Apply topically to bilateral forearms and hands twice daily ??? PREDNISONE PO Take 10 mg by mouth daily. ??? zoledronic Acid (RECLAST) [...] 2 mg by mouth every morning. ??? Calcium Citrate-Vitamin D (CITRACAL + D PO) Take 1 tablet by mouth 2 times daily. Allergies: The patientis allergic to humira; ibuprofen sodium; lyrica; no clinical screening - see comments; remicade; penicillin g; sulfa drugs; and tramadol. Social history: History Substance Use Topics ??? Smoking status: Former Smoker -- 1.0 packs/day for 18 years ??? Smokeless tobacco: Former User Quit date: 09/20/1991 ??? Alcohol Use: No Marital status: single. Review of Systems: Nursing Notes: >> Meli Brian RN katya Apr 22, 2012 3:21 PM OBSTETRIC HISTORY Number of pregnancies: 0 Number of C-sections: 0 Number vaginal delivery: 0 Injury? 0 COLORECTAL-SPECIFIC REVIEW OF SYSTEMS: Abdominal Pain? No Vomiting blood? No Constipation? No Diarrhea? Yes Blood in stool? No Painful bowel movements? No Pelvic pain? No Anal pain? No Liver disease? No Number of bowel movements daily? 0-5 Previous colonoscopy? Yes, date: 2009 Findings: Crohns Where? [place], [place] OTHER REVIEW OF SYSTEMS: Constitutional: Weight change? Yes - Up and down Fevers or chills? Yes Hematologic: Anemia/Other Blood Problems? No Frequent bruising? No Blood clots in legs or lungs? No Endocrine: Thyroid problems? No Diabetes? No HEENT: Loss of vision? No Diminished hearing? No Throat or sinus problems? No Cardiac: Chest pain? No Heart attack? No High cholesterol? No Palpitations? No High Blood Pressure? No Leg Swelling? No Respiratory: Difficulty breathing? No Sleep apnea? No Genitourinary/Renal: Postmenopausal? Yes Urinary tract infections? Yes Kidney problems? Yes, calcification on right kidney Urinary incontinence? No Musculoskeletal/Dermatologic: Joint problems or back problems? Yes Skin problems? Yes minor skin cancer Neurologic: Headaches? Yes Stroke? No Seizure/Nerve problems? No Psychiatric: Depression? Yes Anxiety? Yes >> PAUL TANNER katya Apr 22, 2012 2:07 PM Patient presents with: Consult - Here to discuss multiple fistulas;Crohns Alphonso Suresh MD Professor and Chief Division of Colon and Rectal Surgery [facility] Referring Provider: Edison Tam MD [facility] [address] [facility] [address] [place] [address] Primary Care Provider: Edison Tam ROLLER documented in this encounter Nursing Notes 04/22/2012 2:00 PM CST >> NANDINI Escamilla Apr 22, 2012 3:21 PM OBSTETRIC HISTORY Number of pregnancies: 0 Number of C-sections: 0 Number vaginal delivery: 0 Injury? 0 COLORECTAL-SPECIFIC REVIEW OF SYSTEMS: Abdominal Pain? No Vomiting blood? No Constipation? No Diarrhea? Yes Blood in stool? No Painful bowel movements? No Pelvic pain? No Anal pain? No Liver disease? No Number of bowel movements daily? 0-5 Previous colonoscopy? Yes, date: 2009 Findings: Crohns Where? [place], [place] OTHER REVIEW OF SYSTEMS: Constitutional: Weight change? Yes - Up and down Fevers or chills? Yes Hematologic: Anemia/Other Blood Problems? No Frequent bruising? No Blood clots in legs or lungs? No Endocrine: Thyroid problems? No Diabetes? No HEENT: Loss of vision? No Diminished hearing? No Throat or sinus problems? No Cardiac: Chest pain? No Heart attack? No High cholesterol? No Palpitations? No High Blood Pressure? No Leg Swelling? No Respiratory: Difficulty breathing? No Sleep apnea? No Genitourinary/Renal: Postmenopausal? Yes Urinary tract infections? Yes Kidney problems? Yes, calcification on right kidney Urinary incontinence? No Musculoskeletal/Dermatologic: Joint problems or back problems? Yes Skin problems? Yes minor skin cancer Neurologic: Headaches? Yes Stroke? No Seizure/Nerve problems? No Psychiatric: Depression? Yes Anxiety? 

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
--- OUTSIDE RECORDS SUMMARY | 2021-10-24 12:07 | XMS_ITS | Encounter Summary ---
:1955 Author Organization [place] Address [address] [place] [address] Care Team Providers Name Role Phone Edison Tam MD Primary Care Provider Reason for Visit Reason Comments Flu patient is being seen for fl u like symptoms Encounter Details Date Type Department Care Team Description 03/27/2012 [facility] Visit [facility], Primary Edison Tam Sinus infection (Primary Dx); Care Danish Kennedy MD Influenza; 3rd Floor, Clinic [address] [place] [address] Medication side effects; Luke Shi [place] 4 Rash; Building [id number] [place] [address] [place], [place] (Work) [address] Social History Tobacco Use [...] Sign Reading Time Taken Comments Blood Pressure 123/87 03/27/2012 12:07 PM PLASTIC MIXER Pulse 95 03/27/2012 12:07 PM PLASTIC MIXER Temperature 36.7 ??C (98 ??F) 03/27/2012 12:07 PM PLASTIC MIXER Respiratory Rate - - Oxygen Saturation - - Inhaled Oxygen Concentration - - Weight 59.7 kg (131 lb 11.2 oz) 03/27/2012 12:07 PM PLASTIC MIXER Height 156.8 cm (5' 1.75) 03/27/2012 12:07 PM PLASTIC MIXER Body Mass Index 24.28 03/27/2012 12:07 PM PLASTIC MIXER documented in this encounter Patient Instructions Patient InstructionsMaddie Jessi L - 03/27/2012 12:14 PM CST [facility] Medication Refill Request Information: * Please contact your pharmacy regarding ANY request for medication refills. [facility] Prescription Fax = [phone] * Please allow 3 business days for routine medication refills. * Please allow 5 business days for controlled substance medication refills. Please call [phone] to schedule your lab appointment. TIC MIXER documented in this encounter Progress Notes Edison Tam MD - 03/27/2012 12:32 PM CST Maria E Norman is here for flu like symptoms. Onset of symptoms during the [employer] game. Generalizedmyalgia, fever, cough. She has had voice change for 4 days, pain in ears, teeth and head. Sinus infection symptoms including post nasal drip and pressure over right maxillary sinus. She has a slight cough, no dyspnea. She is on chronic prednisone. Pain on her lower back spine for several weeks comes and goes.She is wondering if she has a pilonidal cyst. She has had diarrhea and slight rash irritation around perianal region. She wanted to discuss pain medication. She has been taking tylenol for pain. She would like her liver function checked with lab draw scheduled for 04/04/12. She requested demerol. I indicated that wouldnot be a good idea for her considering her previous narcotic concerns. She did not argue. We reviewed and updated her medication list today. She is living in her own apartment currently. Patient Active Problem List Diagnoses ??? Yossi's [...] Appendectomy open 1985 ??? Small bowel resection 1986 colon and distal ilium ??? Sigmoidectomy left ovary removal ??? Back surgery 2009 L4-L5 laminectomy ??? Release carpal tunnel right ??? Left ovary removal was removed during a resection ??? Back surgery 2010 L5 ??? 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 Colonoscopy Current Outpatient Prescriptions Medication ??? ciprofloxacin (CIPRO) 500 MG tablet ??? clotrimazole (LOTRIMIN) 1 % cream ??? rOPINIRole (REQUIP) 0.5 MG tablet ??? propranolol (INDERAL) 20 MG tablet ??? fluorouracil (EFUDEX) 5 % cream ??? Levothyroxine Sodium 50 MCG CAPS ??? PREDNISONE PO ??? multivitamin, therapeutic with minerals (THERA-VIT-M) TABS ??? zoledronic Acid (RECLAST) 5 MG/100ML SOLN ??? buPROPion (WELLBUTRIN SR) 150 MG 12 hr tablet ??? cyanocobalamin 1000 MCG/ML injection ??? Potassium Chloride Nancy CR (K-DUR PO) ??? guaiFENesin (MUCINEX) 600 MG 12 hr tablet ??? UNABLE TO FIND ??? Menthol, Topical Analgesic, (ICY HOT EX) ??? Acetaminophen (TYLENOL EXTRA STRENGTH PO) ??? ergocalciferol (ERGOCALCIFEROL) 61637 UNIT capsule ??? ALPRAZolam (XANAX XR) 2 MG 24 hr tablet ??? Loperamide HCl (IMODIUM A-D PO) ??? Calcium Citrate-Vitamin D (CITRACAL + D PO) Allergies Allergen Reactions ??? Humira Rash ??? Ibuprofen Sodium ??? Lyrica Other (See Comments) Patient feels [...] on file Social History Narrative [place] to live with Twin sister Joan [...] for pertinentpositives noted in my HPI. BP 123/87 Pulse 95 Temp(Src) 98 ??F (36.7 ??C) (Oral) Ht 1.568 m (5' 1.75) Wt 59.739 kg (131 lb 11.2 oz) BMI 24.28 kg/m2 ? No GENERAL: Oriented to person, place, and time. Vital signs are noted. Appears chronically ill, back is slightly diaphoretic. Non-toxic appearance. Mild discomfort.Wearing a mask, slight cough, nasal sound and vocal hoarseness Maria E appears independently ambulatory. She is able to get up onto the exam table by herself. She is nicely dressed. Psychiatric: Her mood appears stable. She does not appear impaired on today's examination. SKIN:She has signs of chronic prednisone use with slight daugherty facies, very pale skin and telangiectasias on her thin skin. LUNGS: Clear normal breathing, no rales HEART: S1, S2, with regular rate and rhythm. EXTREMITIES: Reveal deconditioned muscles. She has normal dorsalis pedis, posterior tibial pulses. Mouth/Throat: Oropharynx is clear and moist, post nasal drainage. No oropharyngeal exudate. Eyes: Conjunctivae and EOM are normal. Pupils are equal, round, and reactive to light. No scleral icterus. Sinus: Tenderness and swelling over right maxillary sinus. Neck: Normal range of motion. Neck supple. No JVD present. No tracheal deviation present. No thyromegaly present. No lymphadenopathy. Buttocks and lower spine. No signs of pilonidal cyst. She has red well demarcated rash perianal region. Maria E was seen today for flu with post viral secondary bacterial sinusitis right maxillary sinus. Diagnoses and associated orders for this visit: She has many allergies to medications. She is able to take Cipro. Sinus infection - ciprofloxacin (CIPRO) 500 MG tablet; Take 1 tablet by mouth 2 times daily for 10 days. Influenza resolving. She had the Influenza vaccine this year. Medication side effects, taking tylenol for pain. Do not exceed 3 grams daily. - Comprehensive metabolic panel; Future Rash - clotrimazole (LOTRIMIN) 1 % cream; Apply topically 2 times daily. Good hygiene, keep area dry. She has an appt for follow-up after her lab appt in 1-2 weeks. Anemia - CBC with platelets differential; Future - Iron and iron binding capacity; Future - Ferritin; Future All questions were addressed and voiced understanding and agreement with the above. Edison Tam TIC MIXER documented in this encounter Nursing Notes 03/27/2012 11:40 AM CST >> JESSI PERKINS [facility] Mar 27, 2012 12:10 PM Patient presents with: Flu - patient is being seen for flu like symptoms Jessi Perkins at 12:06 PM on 03/27/2012. documented in this encounter Plan of Treatment Not on filedocumented as of this encounter Visit Diagnoses Diagnosis Sinus infection - Primary Unspecified sinusitis (chronic) Influenza Influenza with other respiratory manifes tations Medication side effects Unspecified adverse effect of unspecifie d drug, medicinal and biological substance Rash Rash and other nonspecific skin eruption Anemia Anemia, unspecified documented in this encounter Care Teams Sustainable Design Coordinator Relationship Specialty Start Date End Date Edison Tam MD PCP - General Family Practice 09/21/11 07/22/[address] [place] [address] documented as of this encounter
--- OUTSIDE RECORDS SUMMARY | 2021-10-24 12:07 | XMS_ITS | Encounter Summary ---
:1955 Author Organization [facility] Address [address] [place] [address] Care Team Providers Name Role Phone Edison Tam MD Primary Care Provider Reason for Visit Reason Onset Date Comments Refill Request 02/18/2012 propranolol Encounter Details Date Type Department Care Team Description 02/18/2012 Refill [facility], Primary Edison Tam Refill Request Care Center MD [facility]cia (propranolol) 3rd Floor, Clinic [address] [place] [address] [place] [address] Social History Tobacco Use Types Packs/Day Years Used Date Former Smoker 1 18 Smokeless Tobacco: Former User Q uit: 09/20/1991 Alcohol Use Standard Drinks/Week Comments No 0 (1 standard drink = 0.6 oz pure alcoho l) Sex Assigned at Date Recorded Not on file documented as of this encounter Miscellaneous Notes Telephone Encounter - Lo Diaz RN - 02/18/2012 10:00 AM CST LV 02/04/12 BP Readings from Last 6 Encounters: 02/06/12 143/78 02/04/12 144/91 01/22/12 117/68 01/10/12 121/67 12/26/11 117/76 12/17/11 121/84 NG MACHINE OPERATOR documented in this encounter Plan of Treatment Not on filedocumented as of this encounter Visit Diagnoses Diagnosis Unspecified essential hypertension - Aleshia collins documented in this encounter Care Teams Fire Equipment Repairer Inspector Relationship Specialty Start Date End Date Edison Tam MD PCP - General Family Practice 09/21/11 07/22/14 909 [facility] 4 [place] [address] documented as of this encounter
--- OUTSIDE RECORDS SUMMARY | 2021-10-24 12:07 | XMS_ITS | Encounter Summary ---
:1955 Author Organization [facility] Address [address] [place] [address] Care Team Providers Name Role Phone Edison Tam MD Primary Care Provider Reason for Visit Reason Onset Date Comments Prior Authorization 02/14/2012 Approved Encounter Details Date Type Department Care Team Description 02/14/2012 Telephone Dermatology Serg Melgar Prior Authorization 5th Floor, Clinic 5A MD [place] (Approved) Luke Shi [address] [facility] [address] [place] [id number] [phone] (Wo rk) Social History Tobacco Use Types Packs/Day Years Used Date Former Smoker 1 18 Smokeless Tobacco: Former User Q uit: 09/20/1991 Alcohol Use Standard Drinks/Week Comments No 0 (1 standard drink = 0.6 oz pure alcoho l) Sex Assigned at Date Recorded Not on file documented as of this encounter Miscellaneous Notes Telephone Encounter - Angie Jerry - 02/14/2012 4:52 PM CST IMIQUIMOD 5% cream approved until 06/14/2012. Pharmacy approved. Approval sent to scanning. [place] MAINTENANCE TECHNICIAN documented in this encounter Plan of Treatment Not on filedocumented as of this encounter Visit Diagnoses Not on filedocumented in this encounter Care Teams Executive Manager Relationship Specialty Start Date End Date Edison Tam MD PCP - General Family Practice 09/21/11 07/22/14 909 [facility] 4 [place] [address] documented as of this encounter
--- OUTSIDE RECORDS SUMMARY | 2021-10-24 12:07 | XMS_ITS | Encounter Summary ---
:1955 Author Organization [place] Address [address] [place] [address] Care Team Providers Name Role Phone Edison Tam MD Primary Care Provider Encounter Details Date Type Department Care Team Description 05/03/2012 Results [facility] 3A [id number] [place] [address] [place] [address] [place] [phone] Social History Tobacco Use Types Packs/Day Years Used Date Former Smoker 1 18 Smokeless Tobacco: Former User Q uit: 09/20/1991 Alcohol Use Standard Drinks/Week Comments No 0 (1 standard drink = 0.6 oz pure alcoho l) Sex Assigned at Date Recorded Not on file documented as of this encounter Plan of Treatment Scheduled Orders Name Type Priority Associated Diagnoses Order S rosie GAVIN Digital Archive Exam Imaging Orde red: 05/03/2012 documented as of this encounter Visit Diagnoses Not on filedocumented in this encounter Care Teams Land Reclamation Specialist Relationship Specialty Start Date End Date Edison Tam MD PCP - General Family Practice 09/21/11 07/22/14 909 [facility] 4 [place] [address] documented as of this encounter
--- OUTSIDE RECORDS SUMMARY | 2021-10-24 12:07 | XMS_ITS | Encounter Summary ---
:1955 Author Organization [facility] Address [address] [place] [address] Care Team Providers Name Role Phone Edison Tam MD Primary Care Provider Reason for Visit Reason Onset Date Comments Previsit 03/25/2012 Patient confirmed ap pt Encounter Details Date Type Department Care Team Description 03/25/2012 PRE VISIT Medicine GI - 1E Charan Salazar MD Previsit (Patient Butler Wangensteen [address] [place] [address] confirmed appt) Building [place], [place] 1st Floor, Clinic [address] [place] [address] [place] [address] Social History Tobacco Use Types Packs/Day Years Used Date Former Smoker 1 18 Smokeless Tobacco: Former User Q uit: 09/20/1991 Alcohol Use Standard Drinks/Week Comments No 0 (1 standard drink = 0.6 oz pure alcoho l) Sex Assigned at Date Recorded Not on file documented as of this encounter Miscellaneous Notes Telephone Encounter - Wendi Sheridan - 03/25/2012 1:29 PM CST Date of Call: March 25, 2012 Phone Numbers: Work Phone Not on file. Reached Patient: Yes Reason for Visit: Previsit Crohn's Problem List: Patient Active Problem List Diagnoses [...] PCP - General (Family Practice) Referred by: PCP: Edison Tam History Substance Use Topics [...] times daily as needed. ??? ergocalciferol (ERGOCALCIFEROL) 04295 UNIT capsule One capsule twice weekly - [...] ??? Tramadol Itching and Rash Preferred Pharmacies: [address] [address] Patient instructions: Bring outside medical records, images, and/or studies Arrive 15 minutes early If health history form was received in the mail please bring to the appointment, or arrive early to complete health history form if patient did not receive. ING SUPERVISOR documented in this encounter Plan of Treatment Not on filedocumented as of this encounter Visit Diagnoses Not on filedocumented in this encounter Care Teams Destaticizer Feeder Relationship Specialty Start Date End Date Edison Tam MD PCP - General Family Practice 09/21/11 07/22/[address] [address] documented as of this encounter
--- OUTSIDE RECORDS SUMMARY | 2021-10-24 12:07 | XMS_ITS | Encounter Summary ---
:1955 Author Organization [facility] Address [address] [place] [address] Care Team Providers Name Role Phone Edison Tam MD Primary Care Provider Encounter Details Date Type Department Care Team Description 04/14/2012 Orders Only [facility] enter Renal mass, right; [facility] Cholelithiases 1st Floor, Clinic 1D Mail Code [address] [place], [place] [address] Social History Tobacco Use Types [...] Priority Date/Time Associated Diagnosis Comme nts US ABDOMEN COMPLETE Routine 04/14/2012 10:35 AM Renal ma ss, right Results for this ROLLED MATERIALS WORKER Cholelithiases procedure are in the results section. documented in this encounter Results US abdomen complete (04/14/2012 10:35 AM ROLLED MATERIALS WORKER) Anatomical Region Laterality Modality Abdomen/Pelvis Ultrasound Specimen (Source) Anatomical Collection Method Collection Time Re ceived Time Location / / Volume Laterality 04/14/2012 10:35 AM ROLLED MATERIALS WORKER Impressions 04/14/2012 3:44 PM ROLLED MATERIALS WORKER Impression: 1. Cholelithiasis and gallbladder sludge without evidence of acute cholecystitis. 2. No significant change in 1 cm wedge-s haped hyperechoic lesion in the right kidney likely due to benign an giomyolipoma or focal scar. Followup ultrasound in one year to evalu ate for change could be helpful. DAYDAY URENA MD I have personally reviewed the image and initial interpretation, and I agree with findings. Narrative 04/14/2012 3:44 PM ROLLED MATERIALS WORKER Examination: ??US ABD COMPLETE* . Indication: ??Gallbladder calculus, eval uate for cholecystitis. Comparison: CT on 01/21/2012, ultrasound on 11/06/2011 Findings: There is no ascites. Visualized portions of the pancreas are unremarkable. Liver shows normal echogenicity. It marques ures 12.5 cm in long axis. Gallbladder lumen contains numerous tiny mobile gallstones with acoustic shadowing. There is also small amount of sludge in the gallbladder. Wall thickness is 2.8 mm. S onographic Loving sign is negative. Common bile duct is 9 mm in di ameter. Right kidney shows normal echotexture. I t measures 10.1 cm in greatest length. No shadowing stone or h ydronephrosis. 1 cm hyperechoic lesion in the superior pole, unchanged. Left kidney shows normal echotexture. It measures 9.3 cm in greatest length. No shadowing stone or hydronephr osis. Spleen measures 8.6 cm. Aorta and Inferior vena cava are unremar kable. Procedure Note Dayday Urena MD - 04/14/2012Form atting of this note might be different from the original. Examination: US ABD COMPLETE* . Indication: Gallbladder calculus, evalua te for cholecystitis. Comparison: CT on 01/21/2012, ultrasound on 11/06/2011 Findings: There is no ascites. Visualized portions of the pancreas are unremarkable. Liver shows normal echogenicity. It marques ures 12.5 cm in long axis. Gallbladder lumen contains numerous tiny mobile gallstones with acoustic shadowing. There is also small amount of sludge in the gallbladder. Wall thickness is 2.8 mm. S onographic Loving sign is negative. Common bile duct is 9 mm in di ameter. Right kidney shows normal echotexture. I t measures 10.1 cm in greatest length. No shadowing stone or h ydronephrosis. 1 cm hyperechoic lesion in the superior pole, unchanged. Left kidney shows normal echotexture. It measures 9.3 cm in greatest length. No shadowing stone or hydronephr osis. Spleen measures 8.6 cm. Aorta and Inferior vena cava are unremar kable. IMPRESSION Impression: 1. Cholelithiasis and gallbladder sludge without evidence of acute cholecystitis. 2. No significant change in 1 cm wedge-s haped hyperechoic lesion in the right kidney likely due to benign an giomyolipoma or focal scar. Followup ultrasound in one year to evalu ate for change could be helpful. DAYDAY URENA MD I have personally reviewed the image and initial interpretation, and I agree with findings. Edison Tam MD IMG US ORDERABLES documented in this encounter Visit Diagnoses Diagnosis Renal mass, right Unspecified disorder of kidney and urete r Cholelithiases Calculus of gallbladder without mention of cholecystitis or obstruction documented in this encounter Care Teams Play Leader Relationship Specialty Start Date End Date Edison Tam MD PCP - General Family Practice 09/21/11 07/22/14 515 [facility] 4 [place] [address] documented as of this encounter
--- OUTSIDE RECORDS SUMMARY | 2021-10-24 12:07 | XMS_ITS | Encounter Summary ---
:1955 Author Organization [facility] Address [address] [facility] [place] [address] Care Team Providers Name Role Phone Edison Tam MD Primary Care Provider Encounter Details Date Type Department Care Team Description 02/21/2012 Orders Only [facility] Kathleen Church Ovarian mass ([facility] MD Marisol Dx) [place] [address] [place] [address] [place] Professional [facility] [phone] [place] [address] [place], [place] (Work) [address] Social History Tobacco Use Types Packs/Day Years Used Date Former Smoker 1 18 Smokeless Tobacco: Former User Q uit: 09/20/1991 Alcohol Use Standard Drinks/Week Comments No 0 (1 standard drink = 0.6 oz pure alcoho l) Sex Assigned at Date Recorded Not on file documented as of this encounter Progress Notes Yanick Scott MD - 02/21/2012 3:36 PM CST 56 year old postmenopausal female presents for gynecologic ultrasound indicated by need for follow up on a previously noted ovarian cyst. Uterine findings: Presence: Visible Size: Normal 2.0 x 1.9 x 2.0 cm. Endometrium = 2.2 mm. Cx length = 19.5 mm. Flexion: Retroflexed Position: Midline Margins: Smooth Shape: Normal Contour: Regular Texture: Homogeneous Cavity: Normal Masses: Normal Pelvic findings: Right Adnexa: Normal Left Adnexa: Normal Bladder: Normal Cul - de - sac fluid: None Ovarian follicles: Right ovary: 2.1 x 1.4 x 2.6 cm. 0 follicles There is a simple cyst measuring 1.3 x 1.2 x 0.75 cm. There are calcifications in the superior aspect of the ovary. There is no increased blood flow. Left ovary: Surgically absent Comments: Simple cyst right ovary unchanged. Consider reassessment in 3 to 6 months. See scanned report in Epic. Yanick Scott MD RITY LEAD documented in this encounter Plan of Treatment Not on filedocumented as of this encounter Visit Diagnoses Diagnosis Ovarian mass - Primary Unspecified noninflammatory disorder of ovary, fallopian tube, and broad ligament documented in this encounter Care Teams Delivery Crew Member Relationship Specialty Start Date End Date Edison Tam MD PCP - General Family Practice 09/21/11 07/22/[address] [address] documented as of this encounter
--- OUTSIDE RECORDS SUMMARY | 2021-10-24 12:07 | XMS_ITS | Encounter Summary ---
:1955 Author Organization [facility] Address [address] [place] [address] Care Team Providers Name Role Phone Edison Tam MD Primary Care Provider Reason for Visit Reason Comments Derm Problem Here to discuss the use of E fudex for left hand. Verbal consent to photo hands Encounter Details Date Type Department Care Team Description 02/04/2012 [facility] Spec, Nurse Only Med Derm Problem (Here Health/Nurse 5th Floor, Clinic 5A Nurse, Dermatology to discuss the use Visit Luke Salcedo E... [address] [address] Social History Tobacco Use Types Packs/Day Years Used Date Former Smoker 1 18 Smokeless Tobacco: Former User Q uit: 09/20/1991 Alcohol Use Standard Drinks/Week Comments No 0 (1 standard drink = 0.6 oz pure alcoho l) Sex Assigned at Date Recorded Not on file documented as of this encounter Progress Notes Elena Ridley RN - 02/04/2012 1:48 PM CST Images from the original note were not included. HEN RUNNER documented in this encounter Nursing Notes 02/04/2012 1:15 PM CST >> Elena Ridley RN Mon Feb 04, 2012 1:52 PM Efudex ordered per Dr. Melgar's request. Instructed her to use it on bilateral forearms and hands twice a day. Explained that her arms/hands will look red, irritated, and even raw, but that is the response that we want. Should have the cream on for @ least 10 minutes prior to doing house work. Can wearcotton gloves @ night if the cream feels too greasy. Follow up with nurse visit in 3 weeks.Peter Ridley RN >> Elena Ridley RN Mon Feb 04, 2012 1:28 PM Patient presents with: Derm Problem - Here to discuss the use of Efudex for left hand. Verbal consent to photo hands Elena Ridley RN documented in this encounter Plan of Treatment Not on filedocumented as of this encounter Visit Diagnoses Diagnosis AK (actinic keratosis) - Primary Actinic keratosis documented in this encounter Care Teams Game Attendant Relationship Specialty Start Date End Date Edison Tam MD PCP - General Family Practice 09/21/11 07/22/[address] [facility] 4 [place] [address] documented as of this encounter
--- OUTSIDE RECORDS SUMMARY | 2021-10-24 12:07 | XMS_ITS | Encounter Summary ---
:1955 Author Organization [facility] Address [address] [place] [address] Care Team Providers Name Role Phone Edison Tam MD Primary Care Provider Reason for Visit Reason Onset Date Comments Refill Request 04/04/2012 Tirosint Encounter Details Date Type Department Care Team Description 04/04/2012 Refill [facility], Primary Edison Tam Refill Request Care Center MD Marcia (Tirosint) 3rd Floor, Clinic 3A [id number] [place] [address] [place] [address] Social History Tobacco Use Types [...] thyroiditis documented in this encounter Care Teams Shim Plug Cutter Relationship Specialty Start Date End Date Edison Tam MD PCP - General Family Practice 09/21/11 07/22/[address] [address] documented as of this encounter
--- OUTSIDE RECORDS SUMMARY | 2021-10-24 12:07 | XMS_ITS | Encounter Summary ---
:1955 Author Organization [place] Address [address] [place] [address] Care Team Providers Name Role Phone Edison Tam MD Primary Care Provider Reason for Visit Reason Onset Date Comments Medication Question 03/03/2012 Requip dosage Encounter Details Date Type Department Care Team Description 03/03/2012 Telephone [facility], Primary Edison Tam Medication Question Care Center MD Marcia (Requip dosage) 3rd Floor, Clinic [address] [place] [address] [place], [place] (Work) [id number] [phone] Social History Tobacco Use Types Packs/Day Years Used Date Former Smoker 1 18 Smokeless Tobacco: Former User Q uit: 09/20/1991 Alcohol Use Standard Drinks/Week Comments No 0 (1 standard drink = 0.6 oz pure alcoho l) Sex Assigned at Date Recorded Not on file documented as of this encounter Miscellaneous Notes Telephone Encounter - Christiano Fishman MD - 03/05/2012 9:35 AM CST Dear Adriana; thanks for the follow up. I signed the prince. Corie Fishman ASSEMBLY WIRER Telephone Encounter - Christiano Fishman MD - 03/03/2012 12:42 PM CST Dear Corky; OK for this; please send me the Rx. Corie Fishman ASSEMBLY WIRER Telephone Encounter - Corky Sainz RN - 03/03/2012 10:44 AM CST Patient calls to report that she has been taking two Requip's a day instead on the one prescribed. Maria E states that she had always taken the 0.25mg Requip and did not realize that Dr. Tam had increased the strength to 0.5mg and reduced the medication to one a day. As a result, she is out of Requip and requesting a prescription to provide her with enough medication to reach her next refill on 03/12/11. 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 ASSEMBLY WIRER documented in this encounter Plan of Treatment Not on filedocumented as of this encounter Visit Diagnoses Diagnosis Unspecified essential hypertension - Aleshia collins Restless leg Restless legs syndrome (RLS) documented in this encounter Care Teams Armature Winder Repair Helper Relationship Specialty Start Date End Date Edison Tam MD PCP - General Family Practice 09/21/11 07/22/[address] [facility] 4 [place] [address] documented as of this encounter
--- OUTSIDE RECORDS SUMMARY | 2021-10-24 12:07 | XMS_ITS | Encounter Summary ---
:1955 Author Organization [place] Address [address] [place] [address] Care Team Providers Name Role Phone Edison Tam MD Primary Care Provider Reason for Visit Reason Comments Sinus Problem Patient presents to clinic [facility] for a 2 week follow up in regards to her Sinus Infection. Encounter Details Date Type Department Care Team Description 04/07/2012 Office Visit [facility] Jamie Vitamin d deficiency (Primary Dx); Primary Care Center Teresa Kennedy MD Fatigue; 3rd Floor, Clinic 3A 909 [facility] Yossi's thyroiditis; [facility] 4 Right sided abdominal pain; Building [place], [place] Renal mass, right; [address] [place] [address] Cholelithiases; [place] [phone] Hypopotassemia [facility] (Work) [place], [place] [phone] [address] (Fax) [phone] Social History Tobacco Use Types Packs/Day Years Used Date Former Smoker 1 18 Smokeless Tobacco: Former User Q uit: 09/20/1991 Alcohol Use Standard Drinks/Week Comments No 0 (1 standard drink = 0.6 oz pure alcoho l) Sex Assigned at Date Recorded Not on file documented as of this encounter Last Filed Vital Signs Vital Sign Reading Time Taken Comments Blood Pressure 112/78 04/07/2012 1:56 PM REFRIGERATING ENGINEER HEAD Pulse 94 04/07/2012 1:56 PM REFRIGERATING ENGINEER HEAD Temperature 35.3 ??C (95.5 ??F) 04/07/2012 1:56 PM REFRIGERATING ENGINEER HEAD Respiratory Rate - - Oxygen Saturation - - Inhaled Oxygen - - Concentration Weight 59.4 kg (131 lb) 04/07/2012 1:56 PM REFRIGERATING ENGINEER HEAD Height 156.8 cm (5' 1.75) 04/07/2012 1:56 ABSTRACTED F ROM PM REFRIGERATING ENGINEER HEAD FLOWSHEETS Body Mass Index 24.15 04/07/2012 1:56 PM REFRIGERATING ENGINEER HEAD documented in this encounter Patient Instructions Patient InstructionsBethanieAnkit Vergara - 04/07/2012 1:56 PM CST Primary Care [phone] (3rd Floor [facility], [address]) Primary Care Center Medication Refill Request Information: * Please contact your pharmacy regarding ANY request for medication refills. [facility] Prescription Fax = [phone] * Please allow 3 business days for [...] the results and signed off on them. Ultrasound Abd. Nothing to eat/drink 8 hours before your exam Please arrive 15 minutes early for your exam Clinic 1D 1st floor [facility] Imaging Center- [phone] IGERATING ENGINEER HEAD documented in this encounter Progress Notes Edison Tam MD - 04/07/2012 2:08 PM CST She is here after sinus infection and has recovery of her voice, feels better. She was on Cipro for 10 day, has had improvement of her symptoms. She was taking tylenol 4 grams daily, was told to cut back on that dose. We discussed the need to cut back on Tylenol to no more than 3 grams daily at her last visit. She still was taking 4 grams of tylenol in spite of my recommendations. I have indicated the importance of compliance with medical recommendations. She brooght in her medications today for me to review. Please see medication list . She has been taking some OTC nutritional products including aliver protection medication I asked her not to take. She has right sided abdominal pain at times. She has Gallstones and a right renal mass. She has seen urology regarding the renal mass. They recommended follow-up in one year. She had a episode of emesis with the right sided abdominal pain, felt better after vomiting. No significant pain today. She is not currently taking her potassium. She is on chronic prednisone. She wanted to discuss pain medication. She sees Psychiatrist Dr Slaughter receives suboxone, she cuts infragments and only takes a small portion. We reviewed and updated her medication list today. She was on several mineral and vitamin supplements containing Vitamin D. We recommended no more than 2000 IU D daily. Her total is 1800 daily after wediscussed eliminating some of her OTC medication . She is living in her own apartment currently. Patient Active Problem List Diagnosis ??? Yossi's [...] ??? Colonoscopy Current Outpatient Prescriptions Medication ??? buprenorphine HCl-naloxone HCl (SUBOXONE) 8-2 MG FILM ??? [id number] ??? Carboxymethylcellulose Sodium (REFRESH TEARS OP) ??? Levothyroxine Sodium 50 MCG CAPS ??? clotrimazole (LOTRIMIN) 1 % cream ??? rOPINIRole (REQUIP) 0.5 MG tablet ??? propranolol (INDERAL) 20 MG tablet ??? fluorouracil (EFUDEX) 5 % cream ??? PREDNISONE PO ??? multivitamin, therapeutic with [...] Calcium Citrate-Vitamin D (CITRACAL + D PO) ??? ciprofloxacin (CIPRO) 500 MG tablet ??? Potassium Chloride Nancy CR (K-DUR PO) Allergies Allergen Reactions ??? Humira Rash [...] on file Social History Narrative Moved to [place] from [facility] to live with Twin sister Joan [place]. [...] except for pertinentpositives noted in my HPI. Filed Vitals: 04/07/12 1356 BP: 112/78 Pulse: 94 Temp: 95.5 ??F (35.3 ??C) TempSrc: Temporal Height: 1.568 m (5' 1.75) Weight: 59.421 kg (131 lb) GENERAL: Oriented to person, place, and time. Vital signs are noted. Appears improved. Non-toxic appearance. Indicates Mild discomfort. Maria E appears independently ambulatory. She is able to get up onto the exam table by herself. She is nicely dressed. Psychiatric: Her mood appears stable. She does not appear impaired on today's examination. SKIN:She has signs of chronic prednisone use with slight daugherty facies, very pale skin and telangiectasias on her thin skin. No Jaundice LUNGS: Clear normal breathing, no rales HEART: S1, S2, with regular rate and rhythm. Abdomen: Negative Loving's sign. She has well healed scar in the right mid abdomen. She is tender and has a fullness in the area near kidney not liver. EXTREMITIES: Reveal deconditioned muscles. She has normal dorsalis pedis, posterior tibial pulses. Mouth/Throat: Oropharynx is clear and moist, post nasal drainage. No oropharyngeal exudate. Eyes: Conjunctivae and EOM are normal. Pupils are equal, round, and reactive to light. No scleral icterus. Sinus: resolved sinus symptoms Neck: Normal range of motion. Neck supple. No JVD present. No tracheal deviation present. No thyromegaly present. No lymphadenopathy. Results for orders placed in visit on 04/07/12 COMPREHENSIVE METABOLIC PANEL Component Value Range Sodium 138 133 - 144 mmol/L Potassium 3.2 (*) 3.4 - 5.3 mmol/L Chloride 96 94 - 109 mmol/L Carbon Dioxide 30 20 - 32 mmol/L Anion Gap 11 6 - 17 mmol/L Glucose 78 60 - 99 mg/dL Urea Nitrogen 13 7 - 30 mg/dL Creatinine 0.81 0.52 - 1.04 mg/dL GFR Estimate 73 >60 mL/min/1.7m2 GFR Estimate If Black 88 >60 mL/min/1.7m2 Calcium 9.2 8.5 - 10.4 mg/dL Bilirubin Total 0.3 0.2 - 1.3 mg/dL Albumin 4.2 3.3 - 4.9 g/dL Protein Total 6.8 6.8 - 8.8 g/dL Alkaline Phosphatase 85 40 - 150 U/L ALT 55 (*) 0 - 50 U/L AST 33 0 - 45 U/L TSH WITH FREE T4 REFLEX Component Value Range TSH 0.83 0.4 - 5.0 mU/L Maria E was seen today for check after Post viral sinus infection. She is better. We reviewed her medication and adjusted recommendations to including discontinuation of OTC medications and warning to not take more than 3 grams of tylenol daily. She indicated we did not need to check a tylenol level asshe has lowered her dose now that she feels better. Vitamin d deficiency: Currently she is taking 1800 IU daily in her supplements. She will discontinueVit D 31877 if she has any at home. - Vitamin D Deficiency Fatigue - Comprehensive metabolic panel Yossi's thyroiditis - TSH with free T4 reflex Right sided abdominal pain History of gallstones. Will check ultrasound and liver function. Renal mass, right - US abdomen complete; Future Cholelithiases - US abdomen complete; Future Other Orders - buprenorphine HCl-naloxone HCl (SUBOXONE) 8-2 MG FILM; Place under the tongue. Dr Pelaez - [id number]; Might-a mins spectrum once daily (Digestive Enzymes) - Carboxymethylcellulose Sodium (REFRESH TEARS OP); Apply to eye. Hypokalemia: I changed her dose to KDUR 8 meq, two daily for a dose of 16 meq daily. I called her with the above results at 6:30 pm All questions were addressed and voiced understanding and agreement with the above. Edison Tam IGERATING ENGINEER HEAD documented in this encounter Nursing Notes 04/07/2012 1:40 PM CST >> ANKIT SERRA Mon Apr 07, 2012 1:57 PM Patient presents with: Sinus Problem - Patient presents to clinic today for a 2 week follow up in regards to her Sinus Infection. Ankit Serra at 1:56 PM on 04/07/2012 documented in this encounter Plan of Treatment Not on filedocumented as of this encounter Procedures Procedure Name Priority Date/Time Associated Comments Diagnosis VITAMIN D DEFICIENCY Routine 04/07/2012 3:18 PM Vitamin D R esults for this SCREENING REFRIGERATING ENGINEER HEAD Deficiency procedure are i n the results section. TSH WITH FREE T4 Routine 04/07/2012 3:18 PM Yossi's Resul ts for this REFLEX REFRIGERATING ENGINEER HEAD thyroiditis procedure are i n the results section. COMPREHENSIVE Routine 04/07/2012 3:18 PM Fatigue Results for this METABOLIC PANEL REFRIGERATING ENGINEER HEAD procedure ar e in the results section. documented in this encounter Results TSH with free T4 reflex (04/07/2012 3:18 PM REFRIGERATING ENGINEER HEAD) athologist Signature TSH 0.83 0.4 - 5.0 [facility] [place] mU/L [facility] Specimen Anatomical Collection Method Collection Time Receive d Time (Source) Location / / Volume Laterality Blood specimen 04/07/2012 3:18 PM 013 3:20 (specimen) REFRIGERATING ENGINEER HEAD PM REFRIGERATING ENGINEER HEAD Edison Tam MD LAB - BLOOD ORDERABLES Performing Organization Address City/State/ZIP Code Phon e Number [address] LABS (ABNORMAL) Comprehensive metabolic panel (04/07/2012 3:18 PM REFRIGERATING ENGINEER HEAD) [facility] gist Method Time Signature Sodium 138 133 - 144 [facility] mmol/L [facility] Potassium 3.2 (L) 3.4 - 5.3 [facility] mmol/L [facility] Chloride 96 94 - 109 [facility] mmol/L [facility] Carbon Dioxide 30 20 - 32 [facility] mmol/L [facility] Anion Gap 11 6 - 17 [facility] mmol/L [facility] Glucose 78 60 - 99 [facility] mg/dL [facility] Urea Nitrogen 13 7 - 30 [facility] mg/dL [facility] Creatinine 0.81 0.52 - [facility] 1.04 mg/dL [facility] GFR Estimate 73 >60 [facility] mL/min/1.7 [facility] GFR Estimate If 88 >60 [facility] Black mL/min/1.7 [place] [address] CAMPUS LABS Calcium 9.2 8.5 - 10.4 [facility] mg/dL [facility] Bilirubin Total 0.3 0.2 - 1.3 [facility] mg/dL [facility] Albumin 4.2 3.3 - 4.9 [facility] g/dL [facility] Protein Total 6.8 6.8 - 8.8 [facility] g/dL [facility] Alkaline 85 40 - 150 [facility] Phosphatase U/L [facility] ALT 55 (H) 0 - 50 U/L [facility] AST 33 0 - 45 U/L [facility] Specimen Anatomical Collection Method Collection Time Receive d Time (Source) Location / / Volume Laterality Blood specimen 04/07/2012 3:18 PM 013 3:20 (specimen) REFRIGERATING ENGINEER HEAD PM REFRIGERATING ENGINEER HEAD Edison Tam MD LAB - BLOOD ORDERABLES Performing Organization Address [facility] Phon e Number [address] LABS Vitamin D Deficiency (04/07/2012 3:18 PM REFRIGERATING ENGINEER HEAD) athologist Signature Vitamin D 30 30 - 75 [facility] Deficiency ug/L [place] screening Comment: Season, race, dietary intake, and treatm ent affect the concentration of 44-zobdiwv-Bowiumj D. Values may decrea se during winter [...] questions, pl ease contact the laboratory at [phone]. Specimen Anatomical Collection Method Collection Time Receive d Time (Source) Location / / Volume Laterality Blood specimen 04/07/2012 3:18 PM 013 3:20 (specimen) REFRIGERATING ENGINEER HEAD PM REFRIGERATING ENGINEER HEAD Edison Tam MD LAB - BLOOD ORDERABLES Performing Organization Address [facility] Phon e Number [facility] [address] [facility] documented in this encounter Visit Diagnoses Diagnosis Vitamin D deficiency - Primary Unspecified vitamin D deficiency Fatigue Other malaise and fatigue Yossi's thyroiditis Chronic lymphocytic thyroiditis Right sided abdominal pain Abdominal pain, unspecified site Renal mass, right Unspecified disorder of kidney and urete r Cholelithiases Calculus of gallbladder without mention of cholecystitis or obstruction Hypopotassemia documented in this encounter Care Teams Remotely Piloted Vehicle Controller Relationship Specialty Start Date End Date Edison Tam MD PCP - General Family Practice 09/21/11 07/22/[address] [address] documented as of this encounter
--- OUTSIDE RECORDS SUMMARY | 2021-10-24 12:08 | XMS_ITS | Encounter Summary ---
:1955 Author Organization [place] Address [address] [place] [address] Care Team Providers Name Role Phone Edison Tam MD Primary Care Provider Reason for Visit Reason Onset Date Comments Results 11/07/2011 Encounter Details Date Type Department Care Team Description 11/07/2011 Telephone [facility], Primary Care Edison Antoine MD Results Center [address] [place] [address] 4 3rd Floor, Clinic 3A [place], [place] [id number] [place] [address] [place] [address] [phone] Social History Tobacco Use Types Packs/Day Years Used Date Former Smoker 1 18 Smokeless Tobacco: Former User Q uit: 09/20/1991 Alcohol Use Standard Drinks/Week Comments No 0 (1 standard drink = 0.6 oz pure alcoho l) Sex Assigned at Date Recorded Not on file documented as of this encounter Miscellaneous Notes Telephone Encounter - Maryan Mixon RN - 11/09/2011 3:35 PM CDT Pt scheduled 12/26/11 at 11:30 for MRI Telephone Encounter - Zeina Flores - 11/09/2011 2:59 PM CDT Pt scheduled for these two appts. Thanks, Rupa ----- Message ----- From: ArthurDede nobles Sent: 11/08/2011 3:55 PM To: [facility] Director [facility] Subject: Scheduling Could you please help schedule the Gen Surg and Urology referrals that Dr. Tam has placed. Thank you. Tomás Telephone Encounter - Maryan Mixon RN - 11/09/2011 11:56 AM CDT Spoke with patient and notified of the below. Patient stated that she had MRI several years ago and got injection for anesthesia because of extreme claustrophobia. Wants to have MRI under anesthesia. Telephone Encounter - Edison Tam MD - 11/07/2011 9:32 PM CDT Results for orders placed in visit on 11/06/11 US ABDOMEN COMPLETE Component Value Range IMAGECAST RESULT Value: Examination: Complete abdominal ultrasound . Indication: Right renal lesion. Comparison: None available. Findings: There is no ascites. Visualized portions of the pancreas are unremarkable. Liver shows normal echogenicity. It measures 12.8 cm in long axis. There is cholelithiasis. Wall thickness is 2.4 mm. Common bile duct is 9 mm in diameter. Right kidney shows a 1.2 cm ovoid hyperechoic lesion in the superior pole.. It measures 9.8 cm in greatest length. No shadowing stone or hydronephrosis. Left kidney shows normal echotexture. It measures 9.1 cm in greatest length. No shadowing stone or hydronephrosis. Spleen measures 8.5 cm. Aorta and Inferior vena cava are unremarkable. Impression: 1. Right renal 1.2 cm hyperechoic lesion. 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 However a renal cell carcinoma cannot be excluded. Recommend obtaining patient's prior imaging. An MRI can be used for definitive diagnosis. 2. Cholelithiasis. She has gallstones. She may make an appt with general surgery to discuss options. She has an area on her right kidney that needs further evaluation with MRI and Urology follow-up. I did not have the ability to call her. I would be happy to discuss when I return after 11/13/11 Edison Tam documented in this encounter Plan of Treatment Not on filedocumented as of this encounter Visit Diagnoses Diagnosis Renal mass, right - Primary Unspecified disorder of kidney and urete r Cholelithiases Calculus of gallbladder without mention of cholecystitis or obstruction documented in this encounter Care Teams Gem Stone Cutter Relationship Specialty Start Date End Date Edison Tam MD PCP - General Family Practice 09/21/11 07/22/14 909 [facility] 4 [place] [address] documented as of this encounter
--- OUTSIDE RECORDS SUMMARY | 2021-10-24 12:08 | XMS_ITS | Encounter Summary ---
:1955 Author Organization [place] Address [address] [place] [address]. [place] [address] Care Team Providers Name Role Phone Edison Tam MD Primary Care Provider Encounter Details Date Type Department Care Team Description 11/06/2011 Orders Only [facility] 1st Floor, Clinic 1D Mail Code [address] [place], [place] [address] Social History Tobacco Use Types Packs/Day Years Used Date Former Smoker 1 18 Smokeless Tobacco: Former User Q uit: 09/20/1991 Alcohol Use Standard Drinks/Week Comments No 0 (1 standard drink = 0.6 oz pure alcoho l) Sex Assigned at Date Recorded Not on file documented as of this encounter Miscellaneous Notes Initial Assessments - Adilia Provider - 11/09/2011 3:29 PM CDT documented in this encounter Plan of Treatment Not on filedocumented as of this encounter Visit Diagnoses Not on filedocumented in this encounter Care Teams Diet Aide Relationship Specialty Start Date End Date Edison Tam MD PCP - General Family Practice 09/21/11 07/22/[address] [facility] 4 [place], [place] [address] documented as of this encounter
--- OUTSIDE RECORDS SUMMARY | 2021-10-24 12:08 | XMS_ITS | Encounter Summary ---
:1955 Author Organization [place] Address [address] [place] [address] Care Team Providers Name Role Phone Arcenio Tam MD Primary Care Provider Encounter Details Date Type Department Care Team Description 11/06/2011 Results Only [facility] Arcenio Tam, [facility] Results 909 [facility] 4 [place], [place] [address] (Wo rk) Social History Tobacco Use Types [...] Associated Diagnosis Comme nts DX HIP/PELVIS/SPINE Routine 11/06/2011 12:47 PM R esults for this CDT procedure are i n the results section. documented in this encounter Results Dexa hip/pelvis/spine* (11/06/2011 12:47 PM CDT) Anatomical Region Laterality Modality Dexa Other Specimen (Source) Anatomical Collection Method Collection Time Re ceived Time Location / / Volume Laterality 11/06/2011 12:47 PM CDT Impressions 11/13/2011 11:44 AM CDT FORMATTED RESULTS WITH ?? TABLES ARE ??LOCATED IN [facility] UNDER ?? CHART REVIEW < ??ENCOUNTERS < PROVIDER < [address] DR ARCENIO ARMENDARIZILLI ??DR: ?? Your patient, MARIA E GONZALEZ ([id number] ), completed a DXA exam ([id number] ) on a AutoAlert on 11/06/2011 . The following are the conclusions and sugges tions: ? Conclusions: ? Based on the most negative and valid T-score of -2.8 at the level of the right femoral neck, ??this patient has osteoporosis. ?? The risk of osteoporotic fracture increa ses approximately 2-fold for each 1.0 SD decrease in T-score. ??Low b one density is not the only risk factor for fracture; ??also conside r factors such as patient's age, risk of falling, risk of injury, pr evious osteoporotic fracture, family history of osteoporosis, etc. ?(for premenopausal women and men < age 50, Z-scores, not T-scores are reported ) ??The most negat rena and valid Z-score of -1.7 at the level of the right femoral neck, is within ??expected range for age. ? The patient meets the follo wing indications for Vertebral Fracture Assessment (VFA) (see reference 3 and 2007 ISCD Position Statements at www.iscd.org ): ? - ??postmenopausal female with osteoporo sis if documentation of vertebral fractures will alter clinical management. ?? - ??prolonged corticosteroid use. ___ ?? Suggestions: ? People with diagnosed cases of osteoporosis or osteopenia should be regularly tested for bone mine ral density. ??For patients eligible for Medicare, routine testing i s allowed once every 2 years. Testing frequency can be increased for p atients who have rapidly progressing disease, or for those who ar e receiving medical therapy to restore bone mass. Clinical correlati on is recommended. ? As the patient meets indica tions for a VFA and the discovery of a fracture might influence clinical m anagement, if a plain thoracolumbar spine xray has not been pe rformed, suggest that the ordering provider consider a VFA. ?? Feel free to contact DXA services if you have any questions or comments. ??Thank you for the opportunit y to be of service to you and your patient. ?? Principal result semiconductor wafers saw operator: Marisa Maloney MD, CCD suggestion clerk Division of Rheumatic and Autoimmune Dis eases [facility] DXA Services ph #: ??[phone] fax #: ??[phone] Arcenio Tam MD IMG DEXA ORDERABLES documented in this encounter Visit Diagnoses Not on filedocumented in this encounter Care Teams Press Loader Relationship Specialty Start Date End Date Arcenio Tam MD PCP - General Family Practice 09/21/11 07/22/[address] [address] documented as of this encounter
--- OUTSIDE RECORDS SUMMARY | 2021-10-24 12:08 | XMS_ITS | Encounter Summary ---
:1955 Author Organization [facility] Address [address] [place] [address] Care Team Providers Name Role Phone Edison Tam MD Primary Care Provider Reason for Visit Reason Onset Date Comments Previsit 01/01/2012 [facility] Encounter Details Date Type Department Care Team Description 01/01/2012 Telephone Dermatology Serg Melgar MD Previsit ([facility]) 5th Floor, Clinic [id number] [place] [address] [place] [phone] Social History Tobacco Use Types Packs/Day Years Used Date Former Smoker 1 18 Smokeless Tobacco: Former User Q uit: 09/20/1991 Alcohol Use Standard Drinks/Week Comments No 0 (1 standard drink = 0.6 oz pure alcoho l) Sex Assigned at Date Recorded Not on file documented as of this encounter Miscellaneous Notes Telephone Encounter - Angie Jerry - 01/01/2012 11:47 AM CDT Left message for Pt regarding her appointment on 01/03/12. Asked that she bring an updated list of medications and Reminded Pt of appointment time. Also, gave Pt our clinic number to call in case she needs to cancel. documented in this encounter Plan of Treatment Not on filedocumented as of this encounter Visit Diagnoses Not on filedocumented in this encounter Care Teams Correctional Lieutenant Relationship Specialty Start Date End Date Edison Tam MD PCP - General Family Practice 09/21/11 07/22/14 909 [facility] [address] [place] [address] documented as of this encounter
--- OUTSIDE RECORDS SUMMARY | 2021-10-24 12:08 | XMS_ITS | Encounter Summary ---
:1955 Author Organization [facility] Address [address] [place] [address] Care Team Providers Name Role Phone Edison Tam MD Primary Care Provider Reason for Visit Reason Onset Date Comments Pre Visit Planning - Done 12/06/2011 Encounter Details Date Type Department Care Team Description 12/06/2011 PRE VISIT [facility], Primary LogeaisWendi MD Pre Visit Planning - Care Center [address] [place] [address] Done 3rd Floor, Clinic 3A [address] [place], [place] Building [address] [place] [address] [facility] 88 (Work) [place] [address] Social History Tobacco Use Types Packs/Day Years Used Date Former Smoker 1 18 Smokeless Tobacco: Former User Q uit: 09/20/1991 Alcohol Use Standard Drinks/Week Comments No 0 (1 standard drink = 0.6 oz pure alcoho l) Sex Assigned at Date Recorded Not on file documented as of this encounter Miscellaneous Notes Telephone Encounter - Dee Cancino - 12/06/2011 1:54 PM CDT Pre-Visit planning Appointment Type: What is the reason for the appt? Medication list reviewed and/or updated Done from last pre visit Immunization record was reviewed and/or updated Done from last pre visit Open Orders Due? US abd, Dexa, Mammogram, xray, mri General Notes documented in this encounter Plan of Treatment Not on filedocumented as of this encounter Visit Diagnoses Not on filedocumented in this encounter Care Teams Cardiothoracic Icu Rn Relationship Specialty Start Date End Date Edison Tam MD PCP - General Family Practice 09/21/11 07/22/[address] [address] documented as of this encounter
--- OUTSIDE RECORDS SUMMARY | 2021-10-24 12:08 | XMS_ITS | Encounter Summary ---
:1955 Author Organization [facility] Address [address] [place] [address] Care Team Providers Name Role Phone Edison Olivas MD Primary Care Provider Reason for Visit Reason Comments Consult right renal mass Encounter Details Date Type Department Care Team Description 01/10/2012 Office Visit UROLOGY CLINIC AND Weight, Rigoberto Sauceda [facility] neoplasm [facility] Serg of kidney, except PROSTATE AND [address] pelvis (Primary Dx) [place] [address] [facility] [phone] (Wo rk) BUILDING 4TH FLOOR, [address] [facility] [address] [place] [address] Social History Tobacco Use Types Packs/Day Years Used Date Former Smoker 1 18 Smokeless Tobacco: Former User Q uit: 09/20/1991 Alcohol Use Standard Drinks/Week Comments No 0 (1 standard drink = 0.6 oz pure alcoho l) Sex Assigned at Date Recorded Not on file documented as of this encounter Last Filed Vital Signs Vital Sign Reading Time Taken Comments Blood Pressure 121/67 01/10/2012 11:14 AM CDT Pulse 83 01/10/2012 11:14 AM CDT Temperature - - Respiratory Rate - - Oxygen Saturation - - Inhaled Oxygen Concentration - - Weight 63.5 kg (139 lb 14.4 oz) 01/10/2012 11:14 AM CDT Height 157.5 cm (5' 2) 01/10/2012 11:14 AM CDT Body Mass Index 25.59 01/10/2012 11:14 AM CDT documented in this encounter Patient Instructions Patient InstructionsStranSharri jarvis LPN - 01/10/2012 11:57 AM CDT Disposition: Return in about 1 year (around 01/09/2013). Check-out note: With renal US to follow renal mass documented in this encounter Progress Notes WeightRigoberto MD - 01/10/2012 11:24 AM CDT Chief Complaint: Renal Mass Consult or Referral: Mr. Maria E Norman is a 56 year old female seen in consultation from Dr. Edison Olivas. History of Present Illness: Maria E Norman is a very pleasant 56 year old female who presents with a history of a Renal Mass. This was discovered incidentally. The mass is cystic ( Category 2 (few thin septa, hyperdense cyst <3 cm, well marginated). The maximal dimension of the renal tumor is 0.9 centimeters. The mass is located in the Right side and is primarily located in the inter polar region. The tumor is also 50 % endophytic and exophytic. The tumor primarily lies on the lateral surface. With regard to the collecting system, the edge of the tumor arrives is greater than 7 mm from the collecting system. ECOG Performance Score: 1 0=Fully active, 1=Unable to do strenuous activity but capable of light work, 2=Ambulatory and capable of all selfcare, 3=Capable of limited selfcare, confined to bed >50% of waking hours, 4=Completely disabled. Past Medical History: Past Medical History Diagnosis Date ??? Crohn's 1977 on prednisone chronically ??? Osteoporosis ??? Fracture of wrist fall ??? Narcotic dependence, in remission rehab ??? Nicotine dependence in remission ??? Menarche 9 y.o menapuase age 40 was on prednisone ??? Yossi's disease ??? Fibromyalgia ??? Lupus has had positive flare ups ??? Bunion ??? Arthritis Past Surgical History: Past Surgical History Procedure [...] rectovag one urethra vag- no hx uti's Medications Current Outpatient Prescriptions Medication ??? UNKNOWN TO PATIENT ??? buprenorphine HCl-naloxone HCl (SUBOXONE) 8-2 MG FILM ??? zoledronic Acid (RECLAST) 5 MG/100ML SOLN ??? buPROPion (WELLBUTRIN SR) 150 MG 12 hr tablet ??? cyanocobalamin 1000 MCG/ML injection ??? FOLIC ACID PO ??? methotrexate 25 MG/ML injection ??? OMEPRAZOLE PO ??? Potassium Chloride Nancy CR (K-DUR PO) ??? guaiFENesin (MUCINEX) 600 MG 12 hr tablet ??? UNABLE TO FIND ??? Menthol, Topical Analgesic, (ICY HOT EX) ??? Acetaminophen (TYLENOL EXTRA STRENGTH PO) ??? ergocalciferol (ERGOCALCIFEROL) 79383 UNIT capsule ??? predniSONE 10 MG KIT ??? levothyroxine (LEVOTHROID) 75 MCG tablet ??? glimepiride (AMARYL) 1 MG tablet ??? propranolol (INDERAL) 20 MG tablet ??? ALPRAZolam (XANAX XR) 2 MG 24 hr tablet ??? rOPINIRole (REQUIP) 5 MG tablet ??? Loperamide HCl (IMODIUM A-D PO) ??? Calcium Citrate-Vitamin D (CITRACAL + D PO) Family History: Family History Problem Relation Age of Onset ??? Arthritis Sister Sjogrens twin sister ??? Neurological Sister Multiple sclerosis older sister ??? Cancer Mother 68 Lung ??? Endocrine Disease Mother Hashimotos ??? Endocrine Disease Sister Hashimotos both sisters Social History: History Social History ??? Marital [...] on file Social History Narrative Moved to Me from [facility] to live with Twin sister Joan [place]. Allergies: Humira; Remicade; Sulfa drugs; Penicillin g; and Tramadol Review of Systems: From intake questionnaire Negative 14 system review except as noted on HPI, nurse's note or scanned questinnaire Physical Exam: Patient is a 56 year old female Vitals: Blood pressure 121/67, pulse 83, height 1.575 m (5' 2), weight 63.458 kg (139 lb 14.4 oz). General Appearance Adult: Alert, no acute distress, alert, oriented, mildly agitated HENT: throat/mouth:normal, good dentition Neck: No adenopathy,masses or thyromegaly Lungs: no respiratory distress, or pursed lip breathing Heart: No obvious jugular venous distension present Abdomen: soft, nontender, no organomegaly or masses, mildly obese, scars noted R paramedian from multiple crohn's operations bowel resections Lymphatics: No cervical or supraclavicular adenopathy Musculoskeltal: extremities normal, no peripheral edema Skin: no suspicious lesions or rashes Neuro: Alert, oriented, speech and mentation normal Psych: affect and mood normal, worried Gait: Normal : deferred Labs and Pathology: I reviewed all applicable laboratory and pathology data reviewed with patient Significant for CR 0.90 12/03/2011 Imaging: I reviewed all applicable imaging and went over the results with the patient. Significant for Reviewed CT scan from 11/20 demonstrating small mass too small to characterize, but appears to be cystic Outside and Past Medical records: I spent 10 minutes reviewing outside and past medical records. Assessment and Plan: Assessment: 1 Benign Appearing Cyst vs. 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 Would recommend watching. Get a renal US in one year. Patient has demonstrated that this is stable over the past 2 years with q6 monthsUS [address] scans. Active surveillance of the mass. We did discuss options as below. We had an extensive discussion about the significance of a localized, small kidney mass vs. cyst. Evaluation of the literature demonstrates that the majority of small cystic appearing masses are benign. We discussed the options for treatment of a localized kidney mass including active surveillance, thermal ablation, and surgical extirpation. Furthermore, we discussed the relative merits of partial nephrectomy vs. radical nephrectomy and thetheoretic basis behind maximal nephron preservation. We also discussed the advantages and disadvantages and roles of open surgery vs. laparoscopic (and Da Oscar assisted) surgery. Patient has decided she would like to proceed with observation Rigoberto Brian MD Department of Urology Staff [facility] Patient Care Team: Edison Olivas MD as PCP - General (Family Practice) EDISON OLIVAS Copy to patient MARIA E NORMAN [address] [facility] [address] documented in this encounter Nursing Notes 01/10/2012 11:00 AM CDT >> Sharri Ordoñez, JENINFER Tish Jan 10, 2012 11:16 AM Patient presents with: Consult - right renal mass documented in this encounter Miscellaneous Notes Initial Assessments - Rigoberto Brian MD - 01/22/2012 11:05 AM ASSOCIATE PROFESSOR OF THEATRE CIATE PROFESSOR OF THEATRE documented in this encounter Plan of Treatment Not on filedocumented as of this encounter Visit Diagnoses Diagnosis Malignant neoplasm of kidney, except pel vis - Primary documented in this encounter Care Teams Staff Trainer Relationship Specialty Start Date End Date Edison Olivas MD PCP - General Family Practice 09/21/11 07/22/[address] [address] documented as of this encounter
--- OUTSIDE RECORDS SUMMARY | 2021-10-24 12:08 | XMS_ITS | Encounter Summary ---
:1955 Author Organization [facility] Address [address] [place] [address] Care Team Providers Name Role Phone Edison Tam MD Primary Care Provider Reason for Visit Reason Onset Date Comments Previsit 12/18/2011 Encounter Details Date Type Department Care Team Description 12/18/2011 PRE VISIT Surgery Clinic Charan Ariza MD Previsit [place] [address] [facility] [address] [place] [address] 1st Floor, Clinic [address] [place] [address] [place] [address] [phone] Social History Tobacco Use Types Packs/Day Years Used Date Former Smoker 1 18 Smokeless Tobacco: Former User Q uit: 09/20/1991 Alcohol Use Standard Drinks/Week Comments No 0 (1 standard drink = 0.6 oz pure alcoho l) Sex Assigned at Date Recorded Not on file documented as of this encounter Miscellaneous Notes Telephone Encounter - Peyton Combs Lila - 12/18/2011 9:27 AM CDT Date of Call: December 18, 2011 Phone Numbers: Work Phone Not on file. Reached Patient: Yes Reason for Visit: Previsit Problem List: Patient Active Problem List Diagnoses Date Noted ??? Concussion 12/13/2011 ??? Restless leg syndrome [...] PCP - General (Family Practice) Referred by: N/A PCP: Edison Tam History Substance Use Topics ??? Smoking status: Former Smoker -- 1.0 packs/day for 18 years ??? Smokeless tobacco: Former User Quit date: 09/20/1991 ??? Alcohol Use: No Current Outpatient Prescriptions Medication Sig ??? buprenorphine HCl-naloxone HCl (SUBOXONE) 8-[address] the tongue. Patient cuts each film into three pieces and takes 1 slice 3 times a day. ??? zoledronic Acid (RECLAST) 5 MG/100ML SOLN Inject 5 mg into the vein. Annually in the beginning of the year ??? buPROPion (WELLBUTRIN SR) 150 MG 12 hr tablet Take 150 mg by mouth 2 times daily. AM and 1 PM ??? cyanocobalamin 1000 MCG/ML injection Inject 1 mL into the muscle every 30 days. ??? FOLIC ACID PO Take 1 mg by mouth daily. Take while on methotrexate. ??? methotrexate 25 MG/ML injection Inject 25 mg into the muscle once a week. Indications: Crohn's Disease ??? OMEPRAZOLE PO Take 20 mg by mouth 2 times daily (before meals). ??? Potassium Chloride Nancy CR (K-DUR PO) Take 16 mEq by mouth 3 times daily. ??? guaiFENesin (MUCINEX) 600 MG 12 hr tablet Take 600 mg by mouth 2 times daily. ??? UNABLE TO FIND nightly as needed. MEDICATION NAME: Calms Forte ??? Menthol, Topical Analgesic, (ICY HOT EX) Externally apply topically. Patient uses Gel, Cream andPatch PRN ??? Acetaminophen (TYLENOL EXTRA STRENGTH PO) Take 2 tablets by mouth 2 times daily. For Tooth Extraction Pain ??? ergocalciferol (ERGOCALCIFEROL) 77685 UNIT capsule One capsule twice weekly ??? predniSONE 10 MG KIT Take by mouth daily. ??? levothyroxine (LEVOTHROID) 75 MCG tablet Take by mouth daily. ??? glimepiride (AMARYL) 1 MG tablet Take 1 mg by mouth every morning (before breakfast). ??? propranolol (INDERAL) 20 MG tablet Take 20 mg by mouth daily. ??? ALPRAZolam (XANAX XR) 2 MG 24 hr tablet Take 2 mg by mouth every morning. ??? DULoxetine (CYMBALTA) 60 MG capsule Take by mouth daily. ??? rOPINIRole (REQUIP) 5 MG tablet Take 5 mg by mouth 2 times daily. ??? Loperamide HCl (IMODIUM A-D PO) Take by mouth. 8-10 tablets daily Unknown dose. ??? Calcium Citrate-Vitamin D (CITRACAL + D PO) Take 2 tablets by mouth daily. Allergies Allergen Reactions ??? Sulfa Drugs Profound lethargy ??? Penicillin G Rash Childhood reaction ??? Tramadol Itching and Rash Preferred Pharmacies: [address] [address] Patient instructions: Bring outside medical records, images, and/or studies Medical records are in [facility]. Arrive 15 minutes early If health history form was received in the mail please bring to the appointment, or arrive early to complete health history form if patient did not receive. documented in this encounter Plan of Treatment Not on filedocumented as of this encounter Visit Diagnoses Not on filedocumented in this encounter Care Teams Government Program Manager Relationship Specialty Start Date End Date Edison Tam MD PCP - General Family Practice 09/21/11 07/22/[address] [place] [address] documented as of this encounter
--- OUTSIDE RECORDS SUMMARY | 2021-10-24 12:08 | XMS_ITS | Encounter Summary ---
:1955 Author Organization [facility] Address [address] [place] [address] Care Team Providers Name Role Phone Edison Tam MD Primary Care Provider Reason for Visit Reason Comments Hospital F/U Patient had fell down 12 charlette ps. Headache Patient has headache and and is currently light sensitive and gets little garcia on right side. Encounter Details Date Type Department Care Team Description 12/07/2011 Office Visit [facility], Primary LogeaisWendi MD Wrist fracture, right Care Center [address] [place] [address] (Primary Dx) 3rd Floor, Clinic [address] [place] [address] [place] [address] [facility] 88 (Work) [place], [place] [phone] [address] (Fax) [phone] Social History Tobacco Use Types Packs/Day Years Used Date Former Smoker 1 18 Smokeless Tobacco: Former User Q uit: 09/20/1991 Alcohol Use Standard Drinks/Week Comments No 0 (1 standard drink = 0.6 oz pure alcoho l) Sex Assigned at Date Recorded Not on file documented as of this encounter Last Filed Vital Signs Vital Sign Reading Time Taken Comments Blood Pressure 144/98 12/07/2011 10:14 AM CDT Pulse 86 12/07/2011 10:14 AM CDT Temperature - - Respiratory Rate - - Oxygen Saturation 95% 12/07/2011 10:14 AM CDT Inhaled Oxygen Concentration - - Weight 62.6 kg (138 lb) 12/07/2011 10:14 AM CDT Height 157.5 cm (5' 2) 12/07/2011 10:14 AM CDT Body Mass Index 25.24 12/07/2011 10:14 AM CDT documented in this encounter Patient Instructions Patient InstructionsIndy Dillon - 12/07/2011 10:16 AM CDT Primary Care Center Medication Refill Request Information: * Please contact your pharmacy regarding ANY request for medication refills. [facility] Prescription Fax = [phone] * Please allow 3 business days for routine medication refills. * Please allow 5 business days for controlled substance medication refills. documented in this encounter Progress Notes Wendi Chan MD - 12/07/2011 10:31 AM CDT Ms. Norman is a 56 year old female here to f/u from recent ER visit. History of Present Illness: Pt here for ER f/u. Was seen 12/02 for fall at home and admitted by Trauma Surgery for observation. Pt states that at 1 am took 5 benadryl and requip for RLS/insomnia and fell down stairs in her home. Imaging was negative--MRI, CT C/A/P, CT spine. Xray revealed small distal R radius fracture. Taking tylenol ES and percocet q 12 hours. Still has DONNELLY, dull, frontal, improving, no N/V, no vision changes. Otherwise she feeling improved overall. Has sister at home to assist with ADLs. A full 10-pt Review of Systems was performed and is negative except as indicated in the HPI. Past Medical History: Past Medical History Diagnosis Date ??? Crohn's 1977 on prednisone chronically ??? Osteoporosis ??? Fracture of wrist fall ??? Narcotic dependence, in remission rehab ??? Nicotine dependence in remission Active Meds: Current Outpatient Prescriptions Medication ??? oxyCODONE (ROXICODONE) 5 MG immediate release tablet ??? oxyCODONE-acetaminophen (PERCOCET) 5-325 MG per tablet ??? zoledronic Acid (RECLAST) 5 MG/100ML SOLN [...] (TYLENOL EXTRA STRENGTH PO) ??? ergocalciferol (ERGOCALCIFEROL) 07007 UNIT capsule ??? predniSONE 10 MG KIT ??? levothyroxine (LEVOTHROID) 75 MCG tablet ??? glimepiride (AMARYL) 1 MG tablet ??? propranolol (INDERAL) 20 MG tablet ??? ALPRAZolam (XANAX XR) 2 MG 24 hr tablet ??? DULoxetine (CYMBALTA) 60 MG capsule ??? rOPINIRole (REQUIP) 5 MG tablet ??? Loperamide HCl (IMODIUM A-D PO) ??? Calcium Citrate-Vitamin D (CITRACAL + D PO) Allergies: Reviewed, refer to EMR Relevant Social History: Denies EtOH Physical Exam: Vitals: BP 144/98 Pulse 86 Ht 1.575 m (5' 2) Wt 62.596 kg (138 lb) BMI 25.24 kg/m2 SpO2 95% Constitutional: Alert, oriented, pleasant, no acute distress Head: Normocephalic, R ecchymoses around orbit Eyes: Extra-ocular movements intact, pupils equally round and reactive bilaterally, no scleral icterus, no hematoma ENT: Oropharynx clear, moist mucus membranes, good dentition Neck: Supple, no lymphadenopathy, no thyromegaly Cardiovascular: Regular rate and rhythm, no murmurs, rubs or gallops, peripheral pulses full/symmetric Respiratory: Good air movement bilaterally, lungs clear, no wheezes/rales/rhonchi Musculoskeletal: No edema, normal muscle tone, normal gait, R wrist wrapped in kerlix, FROM of fingers, sensation intact Neurologic: Alert and oriented, cranial nerves 2-12 intact, strength 5/5 throughout Skin: Abrasion L tibia, healing Recent Labs: NA 139 12/03/2011 POTASSIUM 3.5 12/03/2011 CHLORIDE 104 12/03/2011 DAVID 9.2 12/03/2011 CO2 24 12/03/2011 BUN 12 12/03/2011 CR 0.90 12/03/2011 GLC 90 12/03/2011 AST 35 12/03/2011 ALT 29 12/03/2011 No results found for this basename: BiliConj BILITOTAL 0.5 12/03/2011 ALBUMIN 4.4 12/03/2011 PROTTOTAL 7.0 12/03/2011 ALKPHOS 81 12/03/2011 WBC 6.2 12/03/2011 HGB 15.2 12/03/2011 HCT 45.2 12/03/2011 MCV 90 12/03/2011 PLT 235 12/03/2011 Xray 12/02: IMPRESSION: Mild cortical irregularity along the dorsal surface of the distal radius may represent acute fracture. A repeat film in 7-10 days may better define the fracture line. MRI/A 12/02: Impression: 1. No evidence of acute infarction or intracranial hemorrhage. 2. No abnormal enhancing lesions intracranially. 3. Head MRA demonstrates no definite aneurysm or stenosis of the major intracranial arteries. 4. Neck MRA demonstrates patent major cervical arteries. CT C/T/L Spine 12/02: Impression: No evidence of acute fracture or subluxation. Mild anterolisthesis of C3 on C4 likely on degenerative basis. Degenerative changes most significant at C4-C5, C5-C6 and C6-C7. No evidence of fractures or subluxations in the thoracic spine . Impression: 1. No acute fracture or subluxation. 2. Multilevel degenerative changes most prominent at the L2-3 and L4-5 level with mild left neural foraminal narrowing at the L2-3 level. 3. Bilateral pars defect of L5. CT C/A/P 12/02: Impression: 1. No evidence of traumatic injury to the chest, abdomen, or pelvis. 2. Chronic bilateral pars defects at L5-S1. 3. Dilation of the common bile duct measuring approximately 1.2 cm at the pancreatic head. No definite obstructing lesion is identified. MRCP could be obtained for further evaluation. 4. Too small to characterize hypodensity on the right kidney. 5. 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 Assessment and Plan: 56 year old year old female with a history of Crohn's disease, depression, anxiety, OP who presents for f/u of fall and R distal radius wrist fracture. Overall, pt's injuries and DONNELLY are improving with no neurologic changes. Head and spine imaging negative. Pt has f/u with PCP and ortho next week. -Today, discussed overall caution with polypharmacy and narcotics, given dependence in past -Will refill oxycodone in lieu of percocet given concomitant use of APAP -Hard wrist splint provided until ortho f/u next week #Routine Health Maintenence: Immunizations (zoster, pneumovax, flu, Tdap, Hep A/B): Most Recent Immunizations Administered Date(s) Administered ??? Influenza 02/06/2010 ??? Pneumococcal (PCV 7) 12/22/2003 ??? TD (ADULT, 7+) 11/09/1996 ??? Tdap (Adacel,Boostrix) 04/06/2008 Return to clinic: next week with PCP Wendi Chan MD Internal Medicine documented in this encounter Nursing Notes 12/07/2011 10:15 AM CDT >> INDY DILLON Fri Dec 07, 2011 10:17 AM Patient presents with: Hospital F/U - Patient had fell down 12 steps. Headache - Patient has headache and and is currently light sensitive and gets little garcia on right side. Indy Dillon LPN documented in this encounter Plan of Treatment Not on filedocumented as of this encounter Visit Diagnoses Diagnosis Wrist fracture, right - Primary Unspecified closed fracture of carpal ricki ne documented in this encounter Care Teams Shoe Repairman Relationship Specialty Start Date End Date Edison Tam MD PCP - General Family Practice 09/21/11 07/22/[address] [address] documented as of this encounter
--- OUTSIDE RECORDS SUMMARY | 2021-10-24 12:08 | XMS_ITS | Encounter Summary ---
:1955 Author Organization [place] [facility] [facility] [place] [address] Care Team Providers Name Role Phone Edison Tam MD Primary Care Provider Reason for Visit Reason Comments Consult HASHIMOTOS THYROIDITIS OSTEO POROSIS Encounter Details Date Type Department Care Team Description 12/17/2011 Office Visit Diabetes and Endocri ne Neda Blancas Osteoporosis (Primary Dx); 6th Floor, Clinic 6A MD Maria Esther Yossi's thyroiditis; [place] [id number] Prediabetes [address] [address] [facility] [address] [place], [place] (Work) [phone] Social History Tobacco Use Types Packs/Day Years Used Date Former Smoker 1 18 Smokeless Tobacco: Former User Q uit: 09/20/1991 Alcohol Use Standard Drinks/Week Comments No 0 (1 standard drink = 0.6 oz pure alcoho l) Sex Assigned at Date Recorded Not on file documented as of this encounter Last Filed Vital Signs Vital Sign Reading Time Taken Comments Blood Pressure 121/84 12/17/2011 11:01 AM CDT Pulse 76 12/17/2011 11:01 AM CDT Temperature - - Respiratory Rate - - Oxygen Saturation - - Inhaled Oxygen Concentration - - Weight 61.2 kg (135 lb) 12/17/2011 11:01 AM CDT Height 157.5 cm (5' 2) 12/17/2011 11:01 AM CDT Body Mass Index 24.69 12/17/2011 11:01 AM CDT documented in this encounter Patient Instructions Patient InstructionsJoseph Agnieszka Garay - 12/17/2011 12:19 PM CDT If you have any questions or concerns, please don't hesitate to call us at [phone]. documented in this encounter Progress Notes Neda Blancas MD - 12/17/2011 10:34 AM CDT The patient is seen in consultation at the request of Dr. Edison Tam for evaluation of osteoporosis and Yossi thyroiditis. She recently moved here from [place]. Maria E is a 56-year-old female with a past medical history significant for Yossi's thyroiditis and Crohn's disease, status post small bowel resection and sigmoidectomy. She reports being continuously treated with prednisone since 1969. Over the last year and a half, the prednisone dose has remained unchanged at 10 mg a day. She remembers being diagnosed with osteopenia/? osteoporosis approximately 15 years ago, when she had her 1st DEX scan done in [facility]. Since then, she reports having periodical DEX scans done every 1 or 2 years apart. She reports being treated with Actonel for 11 years after her 1st DEX scan. 4 years ago, Actonel was discontinued as she developed a throat tumor. Apparently this was discovered during an endoscopy done for gastrointestinal symptoms. According to the patient, the tumor disappeared on followup. She received her 1st dose of recast injection 4 years ago and she overall hada total of 3 injections, once every year. Last Reclast injection was in April 2010. The most recent DEX scans were done in [place], last one in 2009. A f/up DEX scan was done here on 11/06/11. I reviewed with the patient the most recent images. The lowest T score is -2.8 at the level of the right femoral neck. In terms of risk factors for osteoporosis: - she reports smoking for a total of 7 years, approximately one pack a day. She quit smoking in 1991. - she went through menopause at age 40, after she underwent left oophorectomy. Menarche occurred at age 9 and her menstrual periods have been regular over the years. She reports being treated with hormone replacement therapy for a total of 8 years, starting at age 40. - she has been continuously treated with omeprazole for 10 years for GERD symptoms; if she doesn't take it on a regular basis she develops heartburns. Maria E was diagnosed with Yossi thyroiditis in 1991. Current levothyroxine replacement dose is 175 ??g daily and the dose hasn't been changed for the last 2 years. She doesn't remember having a thyroid ultrasound done in the past. She reports taking the levothyroxine on an empty stomach, at least 30 min. prior to breakfast. She takes the omeprazole one hour after taking the levothyroxine. Physical exercise is limited to walking, once a day, for approximately one hour. She also does T'ai-chi exercises on a regular basis. Her 1st fracture occurred in 1992, when she broke her left wrist after falling. Subsequently, she broke her right wrist in 1995 and, most recently, in November of this year, after falling on stairs. She's being treated with high-dose vitamin D, 50,000 treatment once a week since September. She didn't use to take any vitamin D supplements prior to September this year. In terms of calcium supplements, she hasalways been taking 2 tablets of calcium daily. She is unsure of the calcium dose (?calcium citrate 600 or 800 mg per tablet). She hasn't been formally diagnosed with diabetes. 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 Approximately 4-5 years ago, she was started on glimepiride at 1 mg daily. She reports checking her blood glucose at home once a day, 2 hours after meals. Glucose has been generally between 60s and 90s, with values as high as 120. Past Medical History Diagnosis Date ??? Crohn's 1970 on prednisone chronically ??? Osteoporosis ??? Fracture of wrist fall ??? Narcotic dependence, in remission rehab ??? Nicotine dependence in remission Yossi thyroiditis R kidney tumor R wrist fracture 1995 and 11/20 L wrist fracture 1992 Tachycardia Depression Anxiety Restless leg syndrome B 12 deficiency after GI surgery Fibromyalgia Past Surgical History Procedure Date ??? Appendectomy open 1985 ??? Small bowel resection 1985 colon and distal ilium ??? Sigmoidectomy 1988 left ovary removal ? ? Back surgery x 2 2008 & 2009 L4-L5 laminectomy ??? Release carpal tunnel right ??? 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 - has an apt with [employer] next week Current Medications Current outpatient prescriptions:buprenorphine HCl-naloxone HCl (SUBOXONE) 8-2 MG FILM, Place under the tongue. Patient cuts each film into three pieces and takes 1 slice 3 times a day., Disp: , Rfl: ;zoledronic Acid (RECLAST) 5 MG/100ML SOLN, Inject 5 mg into the vein. Annually in the beginning of the year , Disp: , Rfl: ; buPROPion (WELLBUTRIN SR) 150 MG 12 hr tablet, Take 150 mg by mouth 2 times daily. AM and 1 PM , Disp: , Rfl: cyanocobalamin 1000 MCG/ML injection, Inject 1 mL into the muscle every 30 days. , Disp: , Rfl: ; FOLIC ACID PO, Take 1 mg by mouth daily. Take while on methotrexate. , Disp: , Rfl: ; methotrexate 25 MG/ML injection, Inject 25 mg into the muscle once a week. Indications: Crohn's Disease, Disp: , Rfl: ; OMEPRAZOLE PO, Take 20 mg by mouth 2 times daily (before meals). , Disp: , Rfl: Potassium Chloride Nancy CR (K-DUR PO), Take 16 mEq by mouth 3 times daily. , Disp: , Rfl: ; guaiFENesin (MUCINEX) 600 MG 12 hr tablet, Take 600 mg by mouth 2 times daily. , Disp: , Rfl: ; UNABLE TO FIND, nightly as needed. MEDICATION NAME: Calms Forte, Disp: , Rfl: ; Menthol, Topical Analgesic, (ICY HOT EX), Externally apply topically. Patient uses Gel, Cream and Patch PRN, Disp: , Rfl: Acetaminophen (TYLENOL EXTRA STRENGTH PO), Take 2 tablets by mouth 2 times daily. For Tooth Extraction Pain, Disp: , Rfl: ; ergocalciferol (ERGOCALCIFEROL) [address] UNIT capsule, One capsule twice weekly,Disp: 8 capsule, Rfl: 0; predniSONE 10 MG KIT, Take by mouth daily., Disp: , Rfl: ; levothyroxine (LEVOTHROID) 75 MCG tablet, Take by mouth daily., Disp: , Rfl: glimepiride (AMARYL) 1 MG tablet, Take 1 mg by mouth every morning (before breakfast)., Disp: , Rfl:; propranolol (INDERAL) 20 MG tablet, Take 20 mg by mouth daily., Disp: , Rfl: ; ALPRAZolam (XANAX XR) 2 MG 24 hr tablet, Take 2 mg by mouth every morning., Disp: , Rfl: ; DULoxetine (CYMBALTA) 60 MG capsule, Take by mouth daily., Disp: , Rfl: ; rOPINIRole (REQUIP) 5 MG tablet, Take 5 mg by mouth 2 times daily., Disp: , Rfl: Loperamide HCl (IMODIUM A-D PO), Take by mouth. 8-10 tablets daily Unknown dose , Disp: , Rfl: ; Calcium Citrate-Vitamin D (CITRACAL + D PO), Take 2 tablets by mouth daily., Disp: , Rfl: Family History Problem Relation Age of Onset ??? Arthritis Sister Sjogrens ??? Neurological Sister Multiple sclerosis ??? Cancer Mother - smoker 68 Lung ??? Endocrine Disease Mother She had thyroidectomy ??? Endocrine Disease 2 Sisters Hashimotos Oldest brother - asthma. Father has RA. Aunt dies of breast cancer. No family h/o kidney stones. Father was diagnosed with osteoporosis. No family h/o hip fractures. Social History Single, no children. twice. She denies drinking alcohol or using illicit drugs. Occupation:unemployed. Former smoker, one pack a day for 7 years, quit in 1991. Review of Systems Systemic: Fatigue for the last couple of years; doesn't wake up rested; weight down 20 lbs in the last year; appetite significantly decreased - takes nutritional drinks - boost Eye: No eye symptoms Dmitry-Laryngeal: no dysphagia, no hoarseness; has to clear her throat in am Breast: No breast symptoms Cardiovascular: No cardiovascular symptoms, no CP or palpitations Pulmonary: SOB with minimal exertion; no cough Gastrointestinal: No gastrointestinal symptoms, no diarrhea or constipation; has a regular BM daily Genitourinary: increased urination - urinates 2-3 times a night for the last year; drinks a few Dr Peppers a day Endocrine: night sweats and chills during the day; for the last 2 weeks Neurological: Headaches 2-3 times a week, no tremor, numbness and tingling sensation R toes, on and off, no dizziness; occasional electric shots down her legs for the last 6 months Musculoskeletal: diffuse joint pain; no muscle cramps Skin: Has always had dry skin, no hair falling out Psychological: Anxiety and depression; not suicidal Vital Signs Previous Weights: Wt Readings from Last 3 Encounters: 12/14/11 61.236 kg (135 lb) 12/13/11 61.689 kg (136 lb) 12/07/11 62.596 kg (138 lb) Body mass index is 24.69 kg/(m^2). Filed Vitals: 12/17/11 1101 BP: 121/84 Pulse: 76 Height: 1.575 m (5' 2) Weight: 61.236 kg (135 lb) Physical Exam General Appearance: she is well developed, well nourished and in no distress Eyes: conjutivae and extra-ocular motions are normal. pupils round and reactive to light, no lid lag, no stare HEENT: oropharynx clear and moist, no JVD, no bruits no thyromegaly, no palpable nodules Cardiovascular: regular rhythm, no murmurs, distal pulse palpable, no edema Respiratory: chest clear, no rales, no rhonchi Gastrointestinal: abdomen soft, non-tender, non-distended, normal bowel sounds, no organomegaly Musculoskeletal: normal tone and strength Psychological: affect and judgment normal Skin: warm, no lesions Neurological: reflexes normal and symmetric, no resting tremor. Lab Results TSH Date Value Range Status 09/20/2011 0.44 0.4 - 5.0 mU/L Final Ref. Range 09/20/2011 13:24 Hemoglobin A1C Latest Range: 4.3-6.0 % 5.4 25 OH Vit D total Latest Range: 30-75 ug/L 21 (L) Vitamin B12 Latest Range: >210 pg/mL 295 Vitamin B6 No range found 233.7 (H) Zinc No range found 87 Calcium Latest Range: 8.5-10.4 mg/dL 8.8 Ref. Range 12/03/2011 02:45 Sodium Latest Range: 133-144 mmol/L 139 Potassium Latest Range: 3.4-5.3 mmol/L 3.5 Chloride Latest Range: 94-109 mmol/L 104 Carbon Dioxide Latest Range: 20-32 mmol/L 24 Urea Nitrogen Latest Range: 7-30 mg/dL 12 Creatinine Latest Range: 0.52-1.04 mg/dL 0.90 GFR Estimate Latest Range: >60 mL/min/1.7m2 65 GFR Estimate If Black Latest Range: >60 mL/min/1.7m2 78 Glucose Latest Range: 60-99 mg/dL 90 Calcium Latest Range: 8.5-10.4 mg/dL 9.2 Anion Gap Latest Range: 6-17 mmol/L 11.7 Albumin Latest Range: 3.3-4.9 g/dL 4.4 Protein Total Latest Range: 6.8-8.8 g/dL 7.0 Bilirubin Total Latest Range: 0.2-1.3 mg/dL 0.5 Alkaline Phosphatase Latest Range: 40-150 U/L 81 ALT Latest Range: 0-50 U/L 29 AST Latest Range: 0-45 U/L 35 WBC Latest Range: 4.0-11.0 10e9/L 6.2 Hemoglobin Latest Range: 11.7-15.7 g/dL 15.2 Hematocrit Latest Range: 35.0-47.0 % 45.2 Platelet Count Latest Range: 150-450 10e9/L 235 RBC Count Latest Range: 3.8-5.2 10e12/L 5.03 MCV Latest Range: 78-100 fl 90 MCH Latest Range: 26.5-33.0 pg 30.2 MCHC Latest Range: 31.5-36.5 g/dL 33.6 RDW Latest Range: 10.0-15.0 % 13.3 Diff Method No range found Automated Method % Neutrophils Latest Range: 40-75 % 59.2 % Lymphocytes Latest Range: 20-48 % 24.9 % Monocytes Latest Range: 0-12 % 13.6 (H) % Eosinophils Latest Range: 0-6 % 1.6 % Basophils Latest Range: 0-2 % 0.5 % Immature Granulocytes Latest Range: 0-0.4 % 0.2 Absolute Neutrophil Latest Range: 1.6-8.3 10e9/L 3.7 Absolute Lymphocytes Latest Range: 0.8-5.3 10e9/L 1.5 Absolute Monoctyes Latest Range: 0.0-1.3 10e9/L 0.8 Absolute Eosinophils Latest Range: 0.0-0.7 10e9/L 0.1 Absolute Basophils Latest Range: 0.0-0.2 10e9/L 0.0 Abs Immature Granulocytes Latest Range: 0-0.03 10e9/L 0.0 INR Latest Range: 0.86-1.14 0.99 PTT Latest Range: 22-37 sec 35 WRIST G/E 3 VIEWS RIGHT * , 12/03/2011 6:27 AM COMPARISON: None HISTORY: Pain, fall . FINDINGS: There is an old ulnar styloid fracture. Cortical irregularity along the dorsal surface of the distal radius may represent an acute fracture. IMPRESSION: Mild cortical irregularity along the dorsal surface of the distal radius may represent acute fracture. A repeat film in 7-10 days may better define the fracture line. The findings were discussed with Dr. Giordano at 6:30 AM. I have personally reviewed the image and initial interpretation and agree with the findings. Your patient, MARIA E GONZALEZ ([id number] ), completed a DXA exam ([id number] ) on a ZeaVision on 11/06/2011 . The following are the conclusions and suggestions: Conclusions: Based on the most negative and valid T-score of -2.8 at the level of the right femoral neck, this patient has osteoporosis. The risk of osteoporotic fracture increases approximately 2-fold for each 1.0 SD decrease in T-score. Low bone density is not the only risk factor for fracture; also consider factors such as patient's age, risk of falling, risk of injury, previous osteoporotic fracture, family history of osteoporosis, etc. (for premenopausal women and men < age 50, Z-scores, not T-scores are reported ) The most negative and valid Z-score of -1.7 at the level of the right femoral neck, is within expected range for age. The patient meets the following indications for Vertebral Fracture Assessment (VFA) (see reference 3 and 2007 ISCD Position Statements at www.iscd.org ): - postmenopausal female with osteoporosis if documentation of vertebral fractures will alter clinical management. - prolonged corticosteroid use. ___ Suggestions: People with diagnosed cases of osteoporosis or osteopenia should be regularly tested for bone mineral density. For patients eligible for Medicare, routine testing is allowed once every 2 years. Testing frequency can be increased for patients who have rapidly progressing disease, or for those who are receiving medical therapy to restore bone mass. Clinical correlation is recommended. As the patient meets indications for a VFA and the discovery of a fracture might influence clinical management, if a plain thoracolumbar spine xray has not been performed, suggest that the ordering provider consider a VFA. Feel free to contact DXA services if you have any questions or comments. Thank you for the opportunity to be of service to you and your patient. Principal result canvas goods supervisor: Marisa Maloney MD, CCD I reviewed the most recent lab results. Vitamin D level was low at 21 in September of this year. She had low normal calcium levels in the past. Most recent TSH checked in September of this year was 0.44. Assessment 1. Osteoporosis Risk factors for osteoporosis identified: Crohn's disease, steroid treatment, possible malabsorption, early menopause, smoking, treatment with omeprazole and levothyroxine, vitamin D deficiency. Despite being treated with oral and IV bisphosphonates for a total of 14 years, the bone mineral density atthe hip has remained in the osteoporotic range. Unfortunately, I did not have at the time of the visit the prior DEX scan results, to be able to evaluate the response of bone mineral density to treatment. I asked the patient to sign a release of information so we can obtain them. I suspect the markers of bone resorption continue to be suppressed from prior treatment with IV bisphosphonates. I counseled the patient on the fact that I prefer them to be higher before considering a4th dose of reclast. She might also benefit from treatment with forteo. Recommendations: - check calcium, albumin, phosphorus, PTH, vitamin D level, N telopeptide and C telopeptide, bone specific alkaline phosphatase; - obtain prior DEX scan reports. 2. Yossi thyroiditis Clinically, the patient doesn't have signs or symptoms suggestive of hypo-or hyperthyroidism. - check TSH and free T4 and adjust the levothyroxine dose accordingly. 3. 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 Recommended to discontinue glimepiride and continue to monitor the blood glucose, fasting and 2 hour postprandial. 4. Weight loss of unclear etiology - advised to f/up with her PCP and KAI WHAKARURUHAU. She is going to have the labs done once she completes the high dose vitamin D treatment. Orders Placed This Encounter Procedures ??? TSH ??? 25 Hydroxyvitamin D2 and D3 ??? Albumin level ??? Calcium ??? Parathormone intact ??? Phosphorus ??? N telopeptide cross linked urine ??? Laboratory Miscellaneous Order: C telopeptide of type 1 collagen ??? Bone specific alk phosphatase ??? T4 free ??? Glucose documented in this encounter Plan of Treatment Not on filedocumented as of this encounter Visit Diagnoses Diagnosis Osteoporosis - Primary Osteoporosis, unspecified Yossi's thyroiditis Chronic lymphocytic thyroiditis Prediabetes Other abnormal glucose documented in this encounter Care Teams Industrial Servicer Relationship Specialty Start Date End Date Edison Tam MD PCP - General Family Practice 09/21/11 07/22/[address] [id number] documented as of this encounter
--- OUTSIDE RECORDS SUMMARY | 2021-10-24 12:08 | XMS_ITS | Encounter Summary ---
:1955 Author Organization [place] Address [address] [place] [address] Care Team Providers Name Role Phone Edison Tam MD Primary Care Provider Reason for Visit Reason Comments Derm Problem Pt is here for brown/red spo ts on arms and legs. Encounter Details Date Type Department Care Team Description 01/03/2012 Office Visit Dermatology Azalea Sen Neoplasm of uncertain 5th Floor, Clinic 5A MD [place] behavior of skin [facility] (Pr imary Dx) [address] [facility] [address] [place] [id number] [phone] Social History Tobacco Use Types Packs/Day Years Used Date Former Smoker 1 18 Smokeless Tobacco: Former User Q uit: 09/20/1991 Alcohol Use Standard Drinks/Week Comments No 0 (1 standard drink = 0.6 oz pure alcoho l) Sex Assigned at Date Recorded Not on file documented as of this encounter Patient Instructions Patient InstructionsMartita Herndon - 01/03/2012 4:06 PM CDT Biopsy Information This information has been written to inform you of the procedure being done today. It includes answers to questions that patients ask most often. If you have any questions, please be sure to discuss them with the cotton jammer or the dermatology nurse before the procedure begins. What is the purpose of a biopsy? A biopsy is done to obtain a piece of skin tissue that will be sent to the lab to assist the doctor in making a diagnosis. It also may be done to treat certain skin conditions, for example- removing a mole. How is the procedure done? The area to be biopsied will be cleaned the alcohol. Your skin will be numbed with a local anesthetic (Lidocaine with Epinephrine). While your skin is being numbed, you may feel a burning sensation. After the area is numbed, you should not feel any pain. However, you may feel pressure during the procedure. Pressure is normal, but if you feel any pain during the procedure, let the Jewelry Setter know and you will be given more numbing medication. There are two ways this procedure can be preformed: Shave Biopsy After the area is numbed, the cotton jammer uses a scalpel blade to remove a thin slice of skin tissue. Then a solution is applied to the wound with a cotton swab to stop the bleeding. This type of biopsy requires no suture as it is very superficial. Punch Biopsy After the area is numbed, the cotton jammer uses a special instrument shaped like a miniature cookie-cutter, to cut a very small [place] into the skin. Using a small scissors, a piece of skin tissue is removed. Usually this type of biopsy is closed with a suture. Depending on the area of the body wherethe biopsy was taken from, the stitches will need to be removed in 1-2 weeks. Your Doctor will discuss where you will have the stitches removed. This is a very simple and quick procedure that can be done at any Doctor office, and in some situations, can even be done at home. If you have a follow up appointment with us in the time frame that is appropriate to have them removed, the cotton jammer or thomas matology nurse will remove them at that time. The appearance of the biopsy site will vary, depending on the type of procedure done and the areas involved. How long will the procedure take and when will I get the results? A shave or punch biopsy usually takes between 5 and 10 minutes. If sutures are required, additional time may be needed. Results of your procedure should be available with in the next two weeks. A physician will call you to give you the results and inform you of follow up care if needed. If you have not heard from a physician within two weeks, please call our office at [phone]. How do I take care of the biopsy site? Shave Biopsy You may remove the original Band-Aid after 24 hours. Keep the site clean. Wash gently with soap and water everyday and any other time it becomes dirty. Rinse well and pat dry. It is advised that until the area is completely healed you should keep it moist with vaseline and a band-aid. Punch Biopsy The area should be covered with the original band-Aid and kept dry for the first 24 hours after the procedure. After the first 24 hours, you can gently clean the area with soap and water. Rinse well and pat dry. When showering, do not let the full force of the water come in contact with the biopsy site. In most cases this site will be closed with a stitch. This area should be covered with vaseline and a band-Aid until the stitch is removed. This band-Aid should be replaced with fresh vaseline applied daily. Your Doctor will discuss the length of time your sutures should be left in. We will also discuss options for removal. Some patients return to the clinic to have them removed, some patients go to a primary care clinic closer to home and some patients remove the stitch themselves. Your doctor will discuss this with you and decide what will work best for you. If bleeding occurs after either type of procedure apply CONSTANT pressure for 10 minutes. Make sure to keep an eye on the clock when timing this and no peeking! If bleeding does not stop, call your physician immediately at- [phone] during regular business hours. If uncontrolled bleeding occurs after hours call [phone] and ask to have the Dermatology Resident on-call paged. Infection Inspect the biopsy area for signs of infection which may include: Increased redness and swelling, drainage, pain or feeling of warmth at biopsy site. Red streaks leading away from the wound Pus (Clear or slightly yellow drainage is o.k.) Fever It is common to have slight redness and swelling at the biopsy site. Contact your Dermatology Clinic if any signs of infection occur. Important phone numbers: Dermatology Clinic [phone] After-hours number to have Dermatology Resident on-call paged [phone] [facility] Emergency Room (answered 24 hours a day) [phone] [facility] Emergency Room TTY for hearing impaired (answered 24 hours a day) [phone] documented in this encounter Progress Notes Azalea Sen MD - 01/03/2012 4:41 PM CDT CHIEF COMPLAINT: Lesions on the dorsal hands. HISTORY OF PRESENT ILLNESS: Ms. Gonzalez is a 56-year-old woman referred by Dr. Edison Tam for evaluation of lesions on the dorsal hand. Ms. Gonzalez's history is significant for greater than 30-year history of Crohn's disease requiring near-constant immunosuppression, mostly in the form of prednisone. She reports she is currently on 10 mg of prednisone daily. As for the lesions on her hands, shereports the lesions have been present for many years. She notes they are asymptomatic. She notes they have never itched, never been painful and never bled. She notes no similar-appearing lesions elsewhere. She denies a history of nonmelanoma skin cancer. She has not treated these lesions in the past. She notes no personal/family history of melanoma. She does report a history of excessive sun exposurehaving grown up on a house. She is otherwise without skin complaint and reports she is otherwise in her usual state of health. MEDICATIONS: Reviewed. ALLERGIES: Reviewed. OBJECTIVE: GENERAL: This is a well-appearing, pleasant, cushingoid woman in no apparent distress. She is alert and oriented x3. She is polite and cooperative with exam. She demonstrates Belcher type I skin. SKIN: Exam today is localized to the scalp, the face, neck and the upper extremities as well as the lower extremities. It is notable for well-marginated pink gritty papules over the bilateral dorsal hands. There is 1 substantive lesion with mild hyperkeratosis noted on the left dorsal hand. Examination of the bilateral forearms also demonstrates waxy, flat, brown, stuck-on appearing papules. Examination of bilateral lower legs demonstrates significant xerosis without evidence of pink gritty papules.Examination of the face is clear and exam is otherwise unremarkable. ASSESSMENT AND PLAN: Mr. Gonzalez is a 56-year-old woman with history of Crohn's disease requiring near constant immunosuppression for the last 30 years here for evaluation of lesions on the dorsal hands. It is our suspicion that the lesion on the left dorsal hand is retail representative of a hypertrophic actinic keratosis versus nonmelanoma skin cancer. We have elected a shave biopsy today. If it is foundto be actinic keratosis, we will treat the bilateral dorsal hands with 5- fluorouracil twice daily for 3-4 weeks. Ms. Gonzalez understood and was amenable to this plan. We will have her follow up based upon the results of the biopsy. Please see procedure note for details. PROCEDURE: After written consent was obtained, the patient was placed in a seated position. Lesionalskin on the left dorsal hand was anesthetized with 1 cc of lidocaine with epinephrine. The lesion was obtained with the use of a Warren blade and placed in formalin for histopathologic processing. Hemostasis was achieved via aluminum chloride. Petrolatum and a Band-Aid were applied and the patient was instructed in postbiopsy wound care. Dictated by Robert Nicholson MD Resident Maria E Gonzalez was seen and evaluated by myself on 01/03/[address] Nicholson. I have reviewed and where appropriate amended/corrected Dr. Nicholson's note. Dr. Nicholson's note accurately reflects my clinical observations, diagnoses, treatment and follow up plans. I was physically present for the proceedural/surgical component of this encounter. Jr. Kayce Hodges Department of Dermatology RESS WEAVER documented in this encounter Nursing Notes 01/03/2012 2:45 PM CDT >> Dede Ivy LPN Tish Jan 03, 2012 3:12 PM Patient presents with: Derm Problem - Pt is here for brown/red spots on arms and legs. Dede Ivy documented in this encounter Plan of Treatment Not on filedocumented as of this encounter Procedures Procedure Name Priority Date/Time Associated Diagnosis Comme nts HC BIOPSY Routine 01/03/2012 3:59 PM Neoplasm of SKIN/SUBQ/MUC MEM, CDT uncertain behavior SINGLE LESION of skin SURGICAL PATHOLOGY Routine 01/03/2012 3:59 PM Neoplasm of Res ults for this EXAM CDT uncertain behavior procedure are in of skin the results section. documented in this encounter Results Surgical pathology exam (01/03/2012 3:59 PM CDT) Component Value Ref Test Analysis Performed At [facility] gist Range Method Time Signature Copath Report Patient Name: MARIA E GONZALEZ MR#: [id number] Specimen #: [id number] Collected: 01/03/2012 Received: 01/04/2012 Reported: 01/07/2012 17:49 Ordering Phy(s): AZALEA UMANALUCIANA SEN SPECIMEN(S): Left dorsal hand FINAL DIAGNOSIS: Skin, left dorsal hand: ? - ??Squamous cell carcinoma, in situ - see descriptio n I have personally reviewed all specimens and or slides, incl uding the listed special stains, and used them with my medical judgeme nt to determine the final diagnosis. Electronically signed out by: Coleman Rodriguez ??Sagar Camejo [facility] CLINICAL HISTORY: The patient is a 56-year-old female. GROSS: One specimen is received, labeled with the patient's name an d hospital number. The specimen is designated left dorsal hand. ??The specime n consists of an unoriented, irregular skin shave measuring 0.7 x 0.7 and excised to a depth of 0.1 cm. ??The skin surface displays a raised, poten tially ulcerated and crusted papule measuring 0.6 x 0.6 cm, which i s 0.1 cm to the nearest resection margin. ??The resection margin is inke d black. ??The specimen is serially sectioned and entirely submitted in [facility]. (MARIA DEL CARMEN Etienne/ameya ??01/04/12) MICROSCOPIC: There is parakeratosis with papillomatosis and acanthosis. Transepidermal atypia of the epidermis is noted focally. 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 The lesion extends to biopsy margins. TESTING LAB LOCATION: [facility], [address] ?? [id number] COLLECTION SITE: Client: [facility] Location: [facility] (B) Specimen Anatomical Collection Method Collection Time Receive d Time (Source) Location / / Volume Laterality 01/03/2012 3:59 PM 2 3:00 CDT PM CDT Azalea KENYON - BRIAN SRINIVASAN Performing Organization Address City/State/ZIP Code Phon e Number COPATH documented in this encounter Visit Diagnoses Diagnosis Neoplasm of uncertain behavior of skin - Primary documented in this encounter Care Teams Doughnut Fryer Relationship Specialty Start Date End Date Edison Tam MD PCP - General Family Practice 09/21/11 07/22/[address] [address] documented as of this encounter
--- OUTSIDE RECORDS SUMMARY | 2021-10-24 12:08 | XMS_ITS | Encounter Summary ---
:1955 Author Organization [place] Address [address] [facility] [place] [address] Care Team Providers Name Role Phone Edison Tam MD Primary Care Provider Reason for Visit Reason Onset Date Comments Previsit 11/05/2011 first call to barry jin regarding her appt for 12/17/11 Encounter Details Date Type Department Care Team Description 11/05/2011 Telephone Diabetes and Endocri ne Neda Blancas Previsit (first call to 6th Floor, Clinic 6A MD Maria Esther patient regarding her [place] [address] appt for 12/17/11) [id number] [place] [address] [address] [place], [place] (Work) [address] [phone] Social History Tobacco Use Types Packs/Day Years [...] on filedocumented in this encounter Care Teams Steel Spar Operator Relationship Specialty Start Date End Date Edison Tam MD PCP - General Family Practice 09/21/11 07/22/[address] [place] [address] documented as of this encounter
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
--- OUTSIDE RECORDS SUMMARY | 2021-10-24 12:08 | XMS_ITS | Encounter Summary ---
:1955 Author Organization [facility] Address [address] [place] [id number] Care Team Providers Name Role Phone Edison Tam MD Primary Care Provider Reason for Referral Specialty Diagnoses / Procedures Referred By Contact Refer red To Contact Edison Tam MD [address] [place] [address] 34[facility] Referral ID Status Reason Start Date Expiration Date Visits Requ ested Visits Authorized Reason for Visit Reason Comments Fall Patient has restless legs, a nd when she took her requip but it wasnt doing the job, so patient took an over the counter sleep aid that had benedryl in it. Patient reports that she too k somewhere between three and five benedryl. Pt decided to go and sleep down stairs and patient slipped and crashed down the whole flight of stairs. Pt h it her head into the wood trim at the bottom of the stairs, filled her head with incredible briight light and then patient found self on the floor. Con t. in Nursing notes Encounter Details Date Type Department Care Team Description 12/13/2011 Office Visit [facility], Primary Edison Tam Ovarian mass (Primary Dx); Care Danish Kennedy MD Routine general medical examination at a health care facility 3rd Floor, Clinic [address]A [address] [address] [facility] [address] [place], [place] (Work) [phone] Social History Tobacco Use Types Packs/Day Years Used Date Former Smoker 1 18 Smokeless Tobacco: Former User Q uit: 09/20/1991 Alcohol Use Standard Drinks/Week Comments No 0 (1 standard drink = 0.6 oz pure alcoho l) Sex Assigned at Date Recorded Not on file documented as of this encounter Last Filed Vital Signs Vital Sign Reading Time Taken Comments Blood Pressure 88/68 12/13/2011 11:42 AM CDT Pulse 76 12/13/2011 11:42 AM CDT Temperature - - Respiratory Rate - - Oxygen Saturation - - Inhaled Oxygen - - Concentration Weight 61.7 kg (136 lb) 12/13/2011 11:42 AM CDT Height 157.5 cm (5' 2) 12/13/2011 11:42 Abstracted qamar cano last AM CDT appointment Body Mass Index 24.87 12/13/2011 11:42 AM CDT documented in this encounter Patient Instructions Patient InstructionsAnkit Kong - 12/13/2011 11:46 AM CDT [facility] [phone] (Stover: [address] [place] [address], [address]) Primary [facility] Center Medication Refill Request Information: * Please contact your pharmacy regarding ANY request for medication refills. [facility] Prescription Fax = [phone] * Please allow 3 business days for routine medication refills. * Please allow 5 business days for controlled substance medication refills. FLU VACCINE QUESTIONNAIRE: Ask the following questions of all parties who want influenza vaccination: CONTRAINDICATIONS 1. Is the patient age less than 6 months? NO 2. Has the person to be vaccinated ever had Guillain-[place] syndrome? NO 3. Has the person to be vaccinated had the vaccine this year? NO 4. Is the person to be vaccinated sick today? NO 5. Does the person to be vaccinated have an allergy to eggs or a component of the vaccine? NO 6. Has the person to vaccinated ever had a serious reaction to an influenza vaccination in the past?NO Patient received influenza vaccination. See immunization list for administration details. Pt tolerated injection well. Check Out Complete. Ankit Kong CMA documented in this encounter Progress Notes Edison Tam MD - 12/13/2011 4:38 PM CDT Maria E Normans here for follow up of chronic health conditions and recent hospitalization for fall.. SUBJECTIVE: Maria E Norman, a 56-year-old female who was recently hospitalized after she fell in the middle of the night due to her restless legs. She had to get up in the middle of the night and felldown several stairs, fracturing her right wrist, injuring her head and afterwards feeling some nausea and balance abnormalities. She had taken too many Benadryl to try to get her restless leg to not beso restless and was somewhat intoxicated with the extra Benadryl when she fell. She denies any excessive alcohol use. She was seen in the emergency room and discharged from the hospital on 12/02. She will follow up with Orthopedics. She had a CT scan of her head as well as CT scan of her abdomen. She is here for followup of those results. In addition, she has chronic other health conditions such as ulcerative colitis and that seems to have been under control at this time. She also has had a previous small area in the right kidney that she was to have an MRI followup of; however, on the CT scan of her abdomen the right kidney did not seem to have as an apparent of an abnormality but they found in the right ovary an unusual appearing cystic lesion that could be a teratoma as it had calcifications in it as well. She is wondering what she should do related to the findings. 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 Overall, she is feeling much better. Her wrist is in a splint. She will be following up with Ortho pedics. She does not have significant head pain at this time, but states she thinks that she had a concussion during the event and I would agree that it sounds like that. She seems to have recovered from that. She also would like a flu shot today. Patient Active Problem List Diagnoses ??? Yossi's thyroiditis ??? Crohn's disease of both small and large intestine with complication ??? Adjustment disorder with mixed anxiety and depressed mood ??? Fatigue ??? Renal mass, right ??? Sacro-iliac pain ??? Dermatitis ??? Fibrosis of skin ??? Cholelithiases ??? Fall ??? Concussion ??? Restless leg syndrome ??? Right wrist fracture Past Medical History Diagnosis Date ??? Crohn's 1977 on prednisone chronically ??? Osteoporosis ??? Fracture of wrist fall ??? Narcotic dependence, in remission rehab ??? Nicotine dependence in remission Past Surgical History Procedure Date ??? Appendectomy open 1985 ??? Small bowel resection 1986 colon and distal ilium ??? Sigmoidectomy left ovary removal ??? Back surgery 2009 L4-L5 laminectomy ??? Release carpal tunnel right ??? Left ovary removal Current Outpatient Prescriptions Medication ??? buprenorphine HCl-naloxone HCl (SUBOXONE) 8-2 MG FILM ??? zoledronic Acid (RECLAST) 5 MG/100ML SOLN ??? buPROPion (WELLBUTRIN SR) 150 MG 12 hr tablet ??? cyanocobalamin 1000 MCG/ML injection ??? FOLIC ACID PO ??? OMEPRAZOLE PO ??? Potassium Chloride Nancy CR (K-DUR PO) ??? guaiFENesin (MUCINEX) 600 MG 12 hr tablet ??? UNABLE TO FIND ??? Menthol, Topical Analgesic, (ICY HOT EX) ??? Acetaminophen (TYLENOL EXTRA STRENGTH PO) ??? ergocalciferol (ERGOCALCIFEROL) 50169 UNIT capsule ??? predniSONE 10 MG KIT ??? levothyroxine (LEVOTHROID) 75 MCG tablet ??? glimepiride (AMARYL) 1 MG tablet ??? propranolol (INDERAL) 20 MG tablet ??? ALPRAZolam (XANAX XR) 2 MG 24 hr tablet ??? DULoxetine (CYMBALTA) 60 MG capsule ??? rOPINIRole (REQUIP) 5 MG tablet ??? Loperamide HCl (IMODIUM A-D PO) ??? Calcium Citrate-Vitamin D (CITRACAL + D PO) ??? methotrexate 25 MG/ML injection Allergies Allergen Reactions ??? Sulfa Drugs Profound [...] on file Social History Narrative Moved to [place] from [facility] to live with Twin sister Joan [place]. Family History Problem Relation Age of Onset ??? Arthritis Sister Sjogrens ??? Neurological Sister Multiple sclerosis ??? Cancer Mother 68 Lung ??? Endocrine Disease Mother Hashimotos ??? Endocrine Disease Sister Hashimotos 7 point ROS of systems including Constitutional, Respiratory, Cardiovascular, Gastroenterology, Genitourinary, Integumentary, Muscularskeletal, were all negative except for pertinent positives noted inmy HPI. BP 88/68 Pulse 76 Ht 1.575 m (5' 2) Wt 61.689 kg (136 lb) BMI 24.87 kg/m2 Constitutional: Oriented to person, place, and time. Vital signs are noted. Appears appropriately nourished. Non-toxic appearance. No distress. Moves slowly. Skin appears tight over bridge of nose and hands skin changes consistent with connective tissue disorder over her face and otherwise her head appears atraumatic. NECK: Supple. Thyroid is slightly enlarged, slightly tender. ABDOMEN: There is no apparent hepatosplenomegaly, and no apparent masses. EXTREMITIES: No edema, the right wrist is in a splint. HENT: Head: Normocephalic and atraumatic. Mouth/Throat::Oropharynx is clear and moist. No oropharyngeal exudate. Thin mucous membranes Eyes: Glasses, Conjunctivae and EOM are normal. Pupils are equal, round, and reactive to light. No scleral icterus. Neck: Normal range of motion. Neck supple. No JVD present. No tracheal deviation present. Cardiovascular: Regular rhythm, normal heart sounds and intact distal pulses. No murmur present. Exam reveals no gallop and no friction rub. Pulmonary/Chest: Effort normal and breath sounds normal. No respiratory distress. Abdominal: Soft. Bowel sounds are normal. No distension and no mass. No tenderness. Musculoskeletal: Deconditioning, decrease flexibility, decreased range of motion. No edema and no tenderness. Lymphadenopathy: No cervical adenopathy. Neurological: Alert and oriented to person, place, and time. Normal strength. No cranial nerve deficit or sensory deficit. DTR s normal Skin: Tight, telangiectasis, small raised wart like fibrous lesion scattered over arms and legs, Skin is warm and dry. Mild malar erythema. No pallor. Psychiatric: Normal mood, affect and behavior is normal. Results for orders placed during the hospital encounter of 12/03/11 CBC WITH PLATELETS DIFFERENTIAL Component Value Range WBC 6.2 4.0 - 11.0 10e9/L RBC Count 5.03 3.8 - 5.2 10e12/L Hemoglobin 15.2 11.7 - 15.7 g/dL Hematocrit 45.2 35.0 - 47.0 % MCV 90 78 - 100 fl MCH 30.2 26.5 - 33.0 pg MCHC 33.6 31.5 - 36.5 g/dL RDW 13.3 10.0 - 15.0 % Platelet Count 235 150 - 450 10e9/L Diff Method Automated Method % Neutrophils 59.2 40 - 75 % % Lymphocytes 24.9 20 - 48 % % Monocytes 13.6 (*) 0 - 12 % % Eosinophils 1.6 0 - 6 % % Basophils 0.5 0 - 2 % % Immature Granulocytes 0.2 0 - 0.4 % Absolute Neutrophil 3.7 1.6 - 8.3 10e9/L Absolute Lymphocytes 1.5 0.8 - 5.3 10e9/L Absolute Monoctyes 0.8 0.0 - 1.3 10e9/L Absolute Eosinophils 0.1 0.0 - 0.7 10e9/L Absolute Basophils 0.0 0.0 - 0.2 10e9/L Abs Immature Granulocytes 0.0 0 - 0.03 10e9/L COMPREHENSIVE METABOLIC PANEL Component Value Range Sodium 139 133 - 144 mmol/L Potassium 3.5 3.4 - 5.3 mmol/L Chloride 104 94 - 109 mmol/L Carbon Dioxide 24 20 - 32 mmol/L Anion Gap 11.7 6 - 17 mmol/L Glucose 90 60 - 99 mg/dL Urea Nitrogen 12 7 - 30 mg/dL Creatinine 0.90 0.52 - 1.04 mg/dL GFR Estimate 65 >60 mL/min/1.7m2 GFR Estimate If Black 78 >60 mL/min/1.7m2 Calcium 9.2 8.5 - 10.4 mg/dL Bilirubin Total 0.5 0.2 - 1.3 mg/dL Albumin 4.4 3.3 - 4.9 g/dL Protein Total 7.0 6.8 - 8.8 g/dL Alkaline Phosphatase 81 40 - 150 U/L ALT 29 0 - 50 U/L AST 35 0 - 45 U/L INR Component Value Range INR 0.99 0.86 - 1.14 PARTIAL THROMBOPLASTIN TIME Component Value Range PTT 35 22 - [address] HEAD W/O CONTRAST Component Value Range IMAGECAST RESULT Value: CT of the Head without contrast History: fall/pain, . Comparison: none Technique: Helical thin section image data were obtained from the skull base to the vertex without intravenous contrast. Axial and coronal images were reconstructed and reviewed in brain, bone and subdural windows. Findings: There is asymmetric hypodensity and loss of valera-white differentiation in the left medial occipital lobe (se 2, image 15-17). A followup MRI is recommended to exclude an acute infarction. Otherwise no intracranial hemorrhage no extra-axial collection or hemorrhage are noted. There is no fracture. Mastoid air cells and paranasal sinuses are clear. Impression: Asymmetric hypodensity and loss of valera-white differentiation in the left medial occipital lobe, could be artifactual, however can not exclude an acute infarction. An MRI of the brain is recommended to exclude acute infarction. [facility] was notified regarding the above findings and read back verification was obtained on 12/03/11, at 10:[address] CERVICAL SPINE W/O CONTRAST Component Value Range IMAGECAST RESULT Value: CT of the Cervical Spine without contrast History: Fall Comparison: none Technique: Using multidetector thin collimation helical acquisition technique, axial, coronal and sagittal [address] images of the cervical spine were obtained without intravenous contrast. Images were reviewed in bone and soft tissue windows. Findings: The lateral masses of C1 appear normally aligned on C2 . There is no acute fracture. Mild anterolisthesis of C3 on C4 is noted. There is mild disc space narrowing at C4-C5, C5-C6 and C6-C7. Mild endplate irregularities are noted at C5-C6 and C6-C7. There are posterior osteophytes at these levels. There are multilevel neural foraminal stenosis due to uncovertebral osteophytes. No significant canal stenosis at any level. Vertebral heights are preserved. The normal cervical lordotic curvature is preserved . There is no evidence of fracture or significant prevertebral soft tissue swelling . . . Findings on a level by level basis are as follows: No abnormality is noted of the visualized paraspinous tissues . Impression: No evidence of acute fracture or subluxation. Mild anterolisthesis of C3 on C4 likely on degenerative basis. Degenerative changes most significant at C4-C5, C5-C6 and C6-C7. CT CHEST ABDOMEN PELVIS W CONTRAST Component Value Range IMAGECAST RESULT Value: Exam: CT of the chest, abdomen and pelvis with contrast 12/03/2011 4:35 AM History: Pain, fall Comparison: None. Technique: Helical acquisition from the thoracic inlet to the pubic symphysis with the administration of IV contrast only. Axial and coronal reconstructions were viewed in bone, soft tissue, and lung windows. Total DLP: 1524. Findings: Lung Bases: Mild dependent atelectasis in both lungs. The heart is at the upper limits of normal for size. There is no large central pulmonary embolus. Mild calcified atherosclerotic plaque in the aortic arch without evidence of aneurysm. There is no mediastinal, hilar, or axillary lymphadenopathy. The visualized thyroid gland is normal in appearance. There is no pleural or pericardial effusion. Abdomen/pelvis: The liver is normal in appearance. Normal appearance of the gallbladder. The common bile duct is dilated measuring approximately 1.2 cm at the pancreatic head. No obstructing lesion is identified. The pancreas is normal in appearance. There is no pancreatic ductal dilatation seen. Normal appearance of the spleen. Two splenules are visualized adjacent to the splenic hilum. The adrenal glands and left kidney are normal in appearance. There is a 0.7 cm too small to characterize hypodensity in the interpolar cortex of the right kidney. The stomach and duodenal sweep are normal in appearance. There are no dilated loops of small or large bowel. There is no bowel wall thickening. The terminal ileum is normal in appearance. The appendix is not definitely visualized however, there is no inflammatory change in the right lower quadrant to suggest acute appendicitis. No free intraperitoneal air or fluid. A Navarro catheter is visualized within the urinary bladder. Air is seen in the anti-dependent bladder lumen. The bladder is otherwise unremarkable in appearance. The uterus is atrophic in appearance. There is a 1.7 cm heterogeneously cystic/solid lesion in the region of the right ovary with coarse internal calcification seen. This may represent a small ovarian teratoma. The left ovary is not visualized. There is no pelvic, retroperitoneal, or mesenteric lymphadenopathy. The aorta and IVC are normal in caliber. The splenic vein and portal veins are patent. Vacuum disc phenomenon at the T7-T8 interspace. There is severe degenerative disc disease at L5-S1 with endplate sclerosis and subchondral cyst formation. Bilateral pars defects at L5-S1. There is sclerosis at the fracture margins on the right however, the left sided fracture appears more acute. There are no agressive appearing bone lesions. Impression: 1. 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 The findings were discussed with Dr. Giordano at 6:40 AM. I have personally reviewed the image and initial interpretation and agree with the findings. X-RAY RT WRIST G/E 3 VWS Component Value Range IMAGECAST RESULT Value: WRIST G/E 3 VIEWS RIGHT * , [...] initial interpretation and agree with the findings. CT THORACIC SPINE W/O CONTRAST Component Value Range IMAGECAST RESULT Value: CT of the Thoracic Spine without contrast History: Fall, pain Comparison: none Technique: Using multidetector thin collimation helical acquisition technique, axial, sagittal and coronal [address] reconstructions were obtained through the thoracic spine without intravenous contrast. Images were viewed in bone and soft tissue windows. Findings: Thoracic spine alignment is within normal limits . There is no evidence of fracture or significant prevertebral soft tissue swelling . There is no disc height narrowing .The spinal canal and neural foramina are patent . The visualized prevertebral and paravertebral tissues do not demonstrate any acute abnormalities.. Impression: No evidence of fractures or subluxations in the thoracic spine . I have personally reviewed the image and initial interpretation and agree with the findings. CT LUMBAR SPINE WITHOUT CONTRAST Component Value Range IMAGECAST RESULT Value: CT of the Lumbar Spine without contrast History: Pain Comparison: none Technique: Using multidetector thin collimation helical acquisition technique, axial, coronal and sagittal [address] images through the lumbar spine were obtained. Images were reviewed in bone and soft tissue windows. Findings: The normal lumbar lordosis is preserved . Vertebral alignment is intact . There is disc height narrowing at the L3-4 and L4-5 level with endplate degenerative changes and degenerative bone cyst at the inferior endplate of L4 . The paraspinous tissues are within normal limits. Findings on a level by level basis are as follows: L1-L2: The spinal canal and neural foramina bilaterally are normal. L2-L3: Eccentric left broad based disc bulge with mild narrowing of the left neural foramen and effacement of the ventral left thecal sac. The right neural foramen is patent.. L3-L4: No significant spinal process or neural foraminal narrowing. L4-L5: Complete loss of disc height with endplate degenerative sclerosis. No significant spinal canal stenosis. No significant neuroforaminal narrowing. L5-S1: The spinal canal and neural foramina bilaterally are normal. Bilateral pars defect of the L5 vertebra, without anterolisthesis. Impression: 1. No acute fracture or subluxation. 2. Multilevel degenerative changes most prominent at the L2-3 and L4-5 level with mild left neural foraminal narrowing at the L2-3 level. 3. Bilateral pars defect of L5. I have personally reviewed the image and initial interpretation and agree with the findings. MRI BRAIN FOR STROKE COMPLETE Component Value Range IMAGECAST RESULT Value: MRI brain without and with contrast MRA of the head without contrast Neck MRA without and with contrast History: Left medial occipital lobe hypodensity on CT.. Comparison: Head CT on 12/03/2011. Technique: Brain MRI: Axial diffusion, FLAIR, T2-weighted, susceptibility, and coronal T1-weighted images were obtained without intravenous contrast. Following intravenous gadolinium-based contrast administration, axial and coronal T1-weighted images were obtained. Head MRA: 3D [id number] MRA of the [place] was performed without intravenous contrast. Neck MRA: Limited non contrast 2DTOF images were obtained of the mid-cervical region. Following intravenous gadolinium-based contrast administration, a contrast enhanced MRA of the neck/cervical vessels was performed. Findings: Brain MRI: Axial diffusion weighted images demonstrate no acute infarct. There is no abnormal T2/FLAIR signal.. There is no intracranial hemorrhage on susceptibility images. Contrast-enhanced images of the brain demonstrate no abnormal intra- or extra-axial enhancement. The mastoid air cells and paranasal sinuses are clear. The orbits, sellar structures and cerebellum within normal limits. Head MRA demonstrates no definite aneurysm or stenosis of the major intracranial arteries. The anterior communicating artery is patent. Regarding the posterior communicating arteries, both are patent. Neck MRA demonstrates patent major cervical arteries. Impression: 1. No evidence of acute infarction or intracranial hemorrhage. Specifically no abnormality in the left medial occipital where there is subtle CT finding. 2. No abnormal enhancing lesions intracranially. 3. Head MRA demonstrates no definite aneurysm or stenosis of the major intracranial arteries. 4. Neck MRA demonstrates patent major cervical arteries. I have personally reviewed the image and initial interpretation and agree with the findings. Maria E was seen today for fall. Diagnoses and associated orders for this visit: Ovarian mass - [facility] REFERRAL Routine general medical examination at a health care facility - FLU VACCINE, 3 YRS +, IM Other Orders - buprenorphine HCl-naloxone HCl (SUBOXONE) 8-2 MG FILM; Place under the tongue. Patient cuts each film into three pieces and takes 1 slice 3 times a day. ASSESSMENT AND PLAN: Maria E is a 56-year-old female who comes in for followup of a fall down a flight of stairs, fractured right wrist. She will follow up with Orthopedics. We also have reviewed her CT scan which showed abnormality in the right ovary. I would like her to follow up with [facility] for evaluation. She was overusing her Benadryl. I have discussed the importance of not doing this and she is fully aware of that. She was told by doctors that she needs to go to Narcotics Anonymous in the past, she has had a past history of narcotic use and she is looking into this. She is not currently on any narcotic medications at this time and did not request any from me today. She will keep her previously scheduled appointments, we reviewed today. HEALTH CARE MAINTENANCE: She needs to have her influenza vaccine updated. She will follow up with bianca approximately 1-2 months. All questions were addressed. She voiced understanding and agreement with the above. I gave her copies of her CT scan of her abdomen and head which we reviewed in detail today. Edison Tam documented in this encounter Nursing Notes 12/13/2011 11:15 AM CDT >> [facility] Dec 13, 2011 11:46 AM Patient presents with: Fall - Patient has restless legs, and when she took her Requip but it wasn't doing the job, so patient took an over the counter sleep aid that had benadryl in it. Patient reports that she took somewhere between three and five benadryl. Pt decided to go and sleep downstairs and patient slipped and crashed down the whole flight of stairs. Pt hit her head into the wood trim at the bottom of the stairs,filled her head with incredible bright light and then patient found self on the floor. Pt began feeling nausea and balance troubles. A lot was made worse by the Benadryl. Pt went to the ER and was discharged from hospital on 12.03.11. Pt has been told by Doctors that she needs to go to Narcotics Anonymous. Ankit Kong CMA documented in this encounter Plan of Treatment Scheduled Referrals Name Type Priority Associated Diagnoses [facility] REFERRAL Referral Routine Ovarian mass Ordered: 06/2011 documented as of this encounter Visit Diagnoses Diagnosis Ovarian mass - Primary Unspecified noninflammatory disorder of ovary, fallopian tube, and broad ligament Routine general medical examination at a health care facility documented in this encounter Care Teams Realtime Reporter Relationship Specialty Start Date End Date Edison Tam MD PCP - General Family Practice 09/21/11 07/22/14 [address] [facility] [address] [place] [address] documented as of this encounter
--- OUTSIDE RECORDS SUMMARY | 2021-10-24 12:08 | XMS_ITS | Encounter Summary ---
:1955 Author Organization [place] Address [address] [place] [id number] Care Team Providers Name Role Phone Edison Olivas MD Primary Care Provider Edison Olivas MD Primary Care Provider Sheri Casey MD Unavailable Alphonso Billy MD Unavailable Roland Holt MD Unavailable Amita Ryan MD Unavailable Sid Lilly MD Unavailable [phone] Neda Boland RN Unavailable Edison Olivas MD Unavailable Encounter Details Date Type Department Care Team Description 11/06/2011 Office Visit-P INTERFACE P DEPT Marisol Maloney MD XX RESIGNED XX [place], [place] [id number] (Wo rk) Social History Tobacco Use Types Packs/Day Years Used Date Former Smoker 1 18 Smokeless Tobacco: Former User Q uit: 09/20/1991 Alcohol Use Standard Drinks/Week Comments No 0 (1 standard drink = 0.6 oz pure alcoho l) Sex Assigned at Date Recorded Not on file documented as of this encounter Progress Notes Kassy Maloney MD - 11/06/2011 12:49 PM CDT Commercial Driver: Kassy Maloney Status: Final - Signature Encounter: 2011-11-06 12:49:00.000 Type: DXA SCAN [facility] [address] [place] [address] [address], [place] [address] Phone: Fax: Bone Densitometry Report: 11/06/2011 REPORT STATUS: FINAL DR EDISON OLIVAS DR: Your patient, MARIA E GONZALEZ ([id number] ), completed a DXA exam ([id number] ) on a [employer] on 11/06/2011 . The following is a summary of the results. Patient biographical information and history: Current measured height: 61.8 in. Current measured weight: 142.0 lbs. Dual energy x-ray absorptiometry was performed on this [age] year [age] White Female, who reports - a history of: postmenopausal status, reformed tobacco habit, vitamin D deficiency, thyroid dysfunction, colitis, lupus like condition, right wrist fracture in 1987, family history of osteoporosis orfractures, self reported 1 inch height loss since age 19 - the following current treatments: Calcium, Vitamin D, thyroid supplementation, steroid inhalers, corticosteroids - the following previous treatments: hormone replacement, risendronate, testosterone Technical quality: 2 versions of L1 - L4 are reported. Densitometry results: Comparison: None provided. Region BMD T - score Z - score L1-L4 upper 0.982 g/cm?? -1.6 -0.7 L1-L4 lower 1.034 - 1.2 - 0.3 Neck Left 0.679 g/cm?? -2.6 -1.5 Total Left 0.720 g/cm?? -2.3 -1.5 Neck Right 0.648 g/cm?? -2.8 -1.7 Total Right 0.706 g/cm?? -2.4 -1.6 FORMATTED RESULTS WITH TABLES ARE LOCATED IN [facility] UNDER CHART REVIEW < ENCOUNTERS < PROVIDER < [address] DR EDISON OLIVAS DR: Your patient, MARIA E GONZALEZ ([id number] ), completed a DXA exam ([id number] ) on a [employer] on 11/06/2011 . The following are the conclusions and suggestions: Conclusions: ?? Based on the most negative and valid T-score of -2.8 at the level of the right femoral neck, thispatient has osteoporosis. The risk of osteoporotic fracture increases approximately 2-fold for each 1.0 SD decrease in T-score. Low bone density is not the only risk factor for fracture; also consider factors such as patient's age, risk of falling, risk of injury, previous osteoporotic fracture, family history of osteoporosis,etc. ?? (for premenopausal women and men < age 50, Z-scores, not T-scores are reported ) The most negative and valid Z-score of -1.7 at the level of the right femoral neck, is within expected range for age. ?? The patient meets the following indications for Vertebral Fracture Assessment (VFA) (see reference 3 and 2007 ISCD Position Statements at www.iscd.org ): - postmenopausal female with osteoporosis if documentation of vertebral fractures will alter clinical management. - prolonged corticosteroid use. Suggestions: ?? People with diagnosed cases of osteoporosis or osteopenia should be regularly tested for bone mineral density. For patients eligible for Medicare, routine testing is allowed once every 2 years. Testing frequency can be increased for patients who have rapidly progressing disease, or for those who are receiving medical therapy to restore bone mass. Clinical correlation is recommended. ?? As the patient meets indications for a [...] to you and your patient. Principal result production mechanic tin cans: Marisa Maloney MD, CCD auto fleet manager Division of Rheumatic and Autoimmune Diseases [facility] DXA Services ph #: [phone] fax #: [phone] References: 1. NOF Physician's Guideline Website address: www.nof.org 2. [place] [employer] Recommendations for the Prevention and Treatment of Glucocorticoid-induced Osteoporosis: 2001 update in Arthritis and Rheumatism September 2000 edition (vol 44, issue 7) pp 1492 - 1507. 3. ISCD position statements: www.iscd.org (includes the report of the 2007 Position Development Conference) According to the ISCD position statements, lateral spine is not to be used for diagnosis, but may have a role in monitoring. According to the ISCD position statements, the diagnosis of osteoporosis in pre- menopausal women andin men younger than age 50 should not be made on the basis of densitometric criteria alone. In addition Z-scores rather than T-scores should be used. 4. Implementation of suggestions is at the discretion of the ordering provider. Clinical correlationis recommended. 5. 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 COORDINATOR Author documented in this encounter Plan of Treatment Not on filedocumented as of this encounter Visit Diagnoses Not on filedocumented in this encounter Care Teams Equipment Inspector Relationship Specialty Start Date End Date Edison Olivas, PCP - General Family Practice 09/21/1107/[address] [place] [address] 4 [place], [place] [address] Edison Olivas, PCP - General Family Practice 07/23/[address] [place] [address] 4 [place], [place] [id number] Sheri Casey MD Pulmonary Disease 07/23/[address] [place] [address] [address] [place] [address] Alphonso Billy MD Cardiology 08/12/[address] [place] [address] Roland Holt MD Resident Student in [facility] 05/12/15 09/24/[address] [facility] education/training program Amita Ryan MD MD Internal Medicine 12/19/[address] [place] [address] [id number] [place] [address] Sid Lilly MD Orthopaedic Surgery 02/22/16 MD Alivia [address] [place] [address] Neda Boland, RN Nurse Coordinator Neurology 02/23/16 09/01/18 Edison Olivas, Assigned PCP 07/30/19 04/30/[address] [place] [address] [place] [address] [place] [address] documented as of this encounter
--- OUTSIDE RECORDS SUMMARY | 2021-10-24 12:08 | XMS_ITS | Encounter Summary ---
:1955 Author Organization [facility] Address [address] [place] [address]. [place] [address] Care Team Providers Name Role Phone Edison Tma MD Primary Care Provider Reason for Visit Reason Comments Fall Pt fell down stairs and hit head around 1 am Auth/Cert - Closed Specialty Diagnoses / Procedures Referred By Contact Refer red To Contact Diagnoses Wrist injury Fall down stairs Fracture of lumbar spine (H) [id number] Z[facility] U7a Observation [address] [place] [address] Phone: Fax: Referral ID Status Reason Start Date Expiration Date Visits Requ ested Visits Authorized Closed 12/03/2011 05/31/2012 Encounter Details Date Type Department Care Team Description 12/03/2011 Emergency [facility] U7A OBSERVATION Duane Mcallister MD [facility] [place] [address] Fall down stairs (Primary Dx); [address] [facility] Peyton Giordano MD [facility] [place] [address] Wrist injury; [place], [place] [address] Gabriela Arora MD XXX RESIGNED XXX [address] [facility] [address] [place], [place] [id number] Fracture of lumbar spine (H); [phone] Adjustment diso rder with mixed anxiety and depressed mood; Cholelithiases; Concussion; Crohn's disease of both small and large intestine with complication (H); Fall; Fatigue; Right wrist fra cture; Sacro-iliac ashwini n Social History Tobacco Use Types Packs/Day Years Used Date Former Smoker 1 18 Smokeless Tobacco: Former User Q uit: 09/20/1991 Alcohol Use Standard Drinks/Week Comments No 0 (1 standard drink = 0.6 oz pure alcoho l) Sex Assigned at Date Recorded Not on file documented as of this encounter Last Filed Vital Signs Vital Sign Reading Time Taken Comments Blood Pressure 104/68 12/03/2011 5:00 PM CDT Pulse 86 12/03/2011 5:00 PM CDT Temperature 36.8 ??C (98.2 ??F) 12/03/2011 5:00 PM CDT Respiratory Rate 16 12/03/2011 5:00 PM CDT Oxygen Saturation 94% 12/03/2011 5:00 PM CDT Inhaled Oxygen Concentration - - Weight 65 kg (143 lb 4.8 oz) 12/03/2011 10:30 AM CDT Height 157.5 cm (5' 2) 12/03/2011 10:30 AM CDT Body Mass Index 26.21 12/03/2011 10:30 AM CDT documented in this encounter Discharge Summaries Kendra King NP - 12/07/2011 11:36 AM CDT PATIENT: Maria E Gonzalez Date of admission: 12/03/11 Date of discharge: 12/03/11 DISCHARGE DIAGNOSES: 1. Fall. 2. Mild cortical irregularity along the dorsal surface of the distal radius that may represent an acute fracture. 3. Bilateral pars defect of L5. 4. History of narcotic overuse. IMAGIN. On 12/03/2011, CT chest, abdomen, and pelvis: There was no evidence of traumatic injury to the chest, abdomen, or pelvis. There was chronic bilateral pars defect L5-S1, dilation of common bile duct measuring 1.2 cm of pancreatic head with no definite obstructing lesion identified. 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 2. On 12/03/2011, a CT head: There was an asymmetric hypodensity and loss of valera white differentiation in the left medial occipital lobe that could be artifactual, however, could not exclude an acute infarction. An MRI of the brain was recommended to exclude acute infarction. 3. On 12/03/2011, CT cervical spine: No evidence of acute fracture or subluxation. Mild anterolisthesis of C3 on C4, likely on degenerative basis. Degenerative changes, most significant at C4-C5, C5 through C6 and C6-C7. 4. On 12/03/2011, CT thoracic spine: No evidence of fracture subluxation in the thoracic spine. 5. On 12/03/2011, CT lumbar spine: No acute fracture or subluxation. Multilevel degenerative changes, most prominent at the L2-L3 and L4-L5 level with mild neural foraminal narrowing at the L2-3 level and bilateral pars defect of L5. 6. On 12/03/2011, right wrist x-ray: There was mild cortical irregularity along the dorsal surface of the distal radius that may represent acute fracture. A repeat film in 7-10 days may better define the fracture line. 7. On 12/03/2011, MRI/MRA brain: No evidence of acute infarction or intraventricular hemorrhage, no abnormal enhancing lesions intracranially. Head MRA demonstrates no definite aneurysm or stenosis of the major intracranial arteries. Neck MRA demonstrates patent cervical arteries. HOSPITAL COURSE: Ms. Maria E [facility] She presented to the ER an hour after the fall. She had fallenat a height of 6-10 feet. The point of impact was her head and her right wrist. The pain severity ofher right wrist was 8/10 at the time of presentation. The pain was moderate and she was ambulatory at the scene. She denied any alcohol use involved during the accident. She did admit to taking 5-6 Benadryl because she could not sleep and in addition to this, she took a natural [id number] sleep aid. She did report a brief loss of consciousness during this fall. The fall occurred after she wasgoing down the stairs and lost her footing and slipped. For her fall which appeared mechanical in nature, she received education on fall safety at home. CT chest, abdomen, and pelvis was negative for traumatic injury. Her initial head CT called an asymmetric hypodensity and loss of valera white differentiation in the left, medial occipital lobe that was considered to be an artifact versus acute stroke.An MRA/MRI, stroke protocol was done and was essentially negative. Orthopedics saw the patient for the possibility of a right wrist fracture. This was splinted with a plan to follow up with nonsurgical Orthopedics 2 days after discharge. For the bilateral pars defect of L5, Neurosurgery was consulted and essentially communicated to us that this was possibly a congenital/degenerative finding and nothing related to her traumatic event. Her pain was managed with oxycodone while she was here. Her secondary evaluation reported no other injuries. Her C-spine was cleared manually. LABORATORY DATA: Unremarkable. DISPOSITION: She was sent home with plans to follow up with Orthopedics in 2 weeks after her discharge. DISCHARGE DIET: Regular. DISCHARGE ACTIVITY: As tolerated by pain. DISCHARGE MEDICATIONS: 1. She was sent home with a new prescription for oxycodone with acetaminophen 5/325 mg 1-2 tablets by mouth q. 4 hours as needed. She was given 18 tablets. 2. She was indicated to continue her home medications, prednisone 10 mg p.o. daily. 3. Levothyroxine 75 mcg by mouth daily. 4. Amaryl 1 mg q. morning p.o. 5. Requip 5 mg by mouth 2 times daily. 6. Menthol topical analgesic externally applied p.r.n. 7. Ergocalciferol 50,000 unit capsule twice weekly. 8. Propranolol 20 mg by mouth daily. 9. Cymbalta 60 mg by mouth daily. 10. Imodium 8-10 tablets daily by mouth. 11. Calcium citrate, vitamin D 2 tablets by mouth daily. 12. Tylenol Extra Strength p.o. 2 tablets by mouth 2 times daily. FOLLOWUP: 1. With Orthopedics, nonsurgical provider in 2 weeks. 2. Trauma Clinic as needed. 3. Primary care provider in 1-2 weeks for general medical care and ongoing management. ICAL RESOURCE NURSE documented in this encounter Medications at Time of Discharge Medication Sig Dispensed Refills Start Date End Date Calcium Citrate-Vitamin D Take 1 tablet by 0 (CITRACAL + D PO) mouth 2 times daily. guaiFENesin (MUCINEX) 600 Take 600 mg by mouth 0 MG 12 hr tablet 2 times daily as needed. Menthol, Topical Externally apply 0 Analgesic, (ICY HOT EX) topically. Patient uses Gel, Cream and Patch PRN Acetaminophen (TYLENOL Take 2 tablets by 0 04/07/2012 EXTRA STRENGTH PO) mouth 2 times daily as needed. ALPRAZolam (XANAX XR) 2 Take 2 mg by mouth 0 06/04/2012 MG 24 hr tablet every morning. buPROPion (WELLBUTRIN SR) Take 150 mg by mouth 0 09/08/2012 150 MG 12 hr tablet 2 times daily. AM and 1 PM cyanocobalamin 1000 Inject 1 mL into the 0 04/27/2013 MCG/ML injection muscle every 30 days. DULoxetine (CYMBALTA) 60 Take by mouth daily. 0 01/10/2012 MG capsule ergocalciferol One capsule twice 8 capsule 0 09/26/2011 (ERGOCALCIFEROL) 69006 weekly - and UNIT capsule FOLIC ACID PO Take 1 mg by mouth 0 02/2012 daily. Take while on methotrexate. glimepiride (AMARYL) 1 MG Take 1 mg by mouth 0 01/21/2012 tablet every morning (before breakfast). levothyroxine Take 75 mcg by mouth 0 1 04/05/2011 (LEVOTHROID) 75 MCG daily. tablet Loperamide HCl (IMODIUM Take by mouth. 8-10 tablets twice daily 0 04/22/2012 A-D PO) methotrexate 25 MG/ML Inject 25 mg into 0 01/21/2012 injectionIndications: the muscle once a Crohn's Disease week. Indications: Crohn's Disease OMEPRAZOLE PO Take 20 mg by mouth 0 2 times daily (before meals). oxyCODONE-acetaminophen Take 1-2 tablets by 18 tablet 0 12/13/2011 (PERCOCET) 5-325 MG per mouth every 4 hours tabletIndications: Fall as needed. down stairs, Wrist injury Potassium Chloride Nancy Take 16 mEq by mouth 0 04/07/2012 CR (K-DUR PO) 3 times daily. predniSONE 10 MG KIT Take by mouth daily. 0 01/21/2012 propranolol (INDERAL) 20 Take 20 mg by mouth 0 02/18/2012 MG tablet daily. rOPINIRole (REQUIP) 5 MG Take 10 mg by mouth 0 03/27/2012 tabletIndications: At Bedtime. Restless Leg Syndrome Indications: Restless Leg Syndrome UNABLE TO FIND nightly as needed. 0 MEDICATION NAME: Chantale Silver zoledronic Acid (RECLAST) Inject 5 mg into the 0 06/05/2012 5 MG/100ML SOLN vein. Annually in the beginning of the year documented as of this encounter Progress Notes Zonia Tamayo - 12/03/2011 5:[address] [facility] Trauma Nurse Note pager [phone] Mechanism of Injury: (R) distal radius fracture s/p fall down stairs Problem List: 1. Fall 2. Mild cortical irregularity along the dorsal surface of the distal radius may represent acute fracture 3. Bilateral pars defect of L5 4. History of narcotic overuse Alcohol Screen + Brief Intervention: Pt denies use of ETOH. Pt answers screening question in the negative. No intervention needed. Zonia Tamayo RN Trauma Resource Nurse Injury Prevention: Falls Teaching Falls education performed by trauma nurse. Answered pt questions about falls and falls injury prevention. Zonia Tamayo RN Trauma Resource Nurse Swallow Assessment: N/A Appliance/Skin Integrity: 12/03/11: C-collar dc'd today Zonia Tamayo RN, Trauma Resource Nurse Trauma Registry Complications: None Hospital Day: 12/03/11 Day 1 Pt fell down stairs 12/02 at 0100 The pt questions if the fall is related to taking to much benadryl for her restless legs The pt was driven to [place] [facility] and transferred to [facility] for further trauma evaluation and cares. Pt admitted to observation Ortho and Neuro consulted and ok with pt to discharge home. MARILU cleared c-collar. (R) wrist splinted, CMS intact Pt to ambulate around unit with nursing staff and have matthew catheter removed. Once these are done the pt may discharge home per orders. Pt aware of plan of care, MARILU to review this plan with primary RN, BP 102/63 Pulse 80 Temp(Src) 99 ??F (37.2 ??C) (Oral) Resp 16 Ht 1.575 m (5' 2) Wt 65 kg (143 lb 4.8 oz) BMI 26.21 kg/m2 SpO2 90% Zonia Tamayo RN Trauma Resource Nurse Nilda Freeman MD - 12/03/2011 3:45 PM CDT TRAUMA PROGRESS NOTE: December 03, 2011 ASSESSMENT: 1. Fall 2. Mild cortical irregularity along the dorsal surface of the distal radius may represent acute fracture 3. Bilateral pars defect of L5. 4. History of narcotic overuse PLAN: 1. Mechanical in nature; however, patient had taken a large dose of benadryl, which could have contributed to the fall. CT chest, abdomen, pelvis negative for traumatic injury. Initial head CT called an asymmetric hypodensity and loss of valera-white differentiation in the left medial occipital lobe- artifact versus acute stroke. MRI/MRA stroke protocol done and is negative. 2. Right wrist splinted. Plan to follow up with non surgical orthopedics in 14 days. Pain control. 3. Neurosurgery consulted. 4. Will treat pain with Oxycodone. Imagin. 12/03/11 CT Chest/Abdomen/Pelvis 1. 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 2.12/03/11 CT Head:Asymmetric hypodensity and loss of valera-white differentiation in the left medial occipital lobe, could be artifactual, however can not exclude an acute infarction. An MRI of the brain is recommended to exclude acute infarction. 3.12/03/11 CT cervical spine: No evidence of acute fracture or subluxation. Mild anterolisthesis of C3 on C4 likely on degenerative basis. Degenerative changes most significant at C4-C5, C5-C6 and C6-C7. 4. 12/03/11 CT Thoracic spine: No evidence of fractures or subluxations in the thoracic spine . 5. 12/03/11 CT Lumbar spine: No acute fracture or subluxation. Multilevel degenerative changes most prominent at the L2-3 and L4-5 level with mild left neural foraminal narrowing at the L2-3level. Bilateral pars defect of L5. 6.12/03/11 Right wrist x ray: Mild cortical irregularity along the dorsal surface of the distal radius may represent acute fracture. A repeat film in 7-10 days may better define the fracture line. 7. 12/03/11 MRI/MRA brain: No evidence of acute infarction or intracranial hemorrhage. No abnormal enhancing lesions intracranially. Head MRA demonstrates no definite aneurysm or stenosis of the major intracranial arteries.Neck MRA demonstrates patent major cervical arteries. SUBJECTIVE: Mrs. Gonzalez is seen today for follow up post trauma. She reportedly took 5 to 6 Benadryl pills along with a natural over the counter sleep aid for insomnia and restless leg syndrome. She subsequently slipped while going down the stairs. She denies headache, chest pain, shortness of breath, abdominal pain, nausea, vomiting, diarrhea, or diplopia. Denies diplopia or paresthesias. Reports slight discomfort to right wrist and lumbar spine. She reports appropriate pain control at this time and is concerned with taking any narcotics given her history of narcotic abuse. She wishes to avoid taking big doses. OBJECTIVE: Blood pressure 102/63, pulse 80, temperature 99 ??F (37.2 ??C), temperature source Oral, resp. rate 16, height 1.575 m (5' 2), weight 65 kg (143 lb 4.8 oz), SpO2 90.00%. CBC RESULTS: Recent Labs Lab Test 12/03/11 0245 WBC 6.2 RBC 5.03 HGB 15.2 HCT 45.2 MCV 90 MCH 30.2 MCHC 33.6 RDW 13.3 PLT 235 Last Basic Metabolic Panel: NA 139 12/03/2011 POTASSIUM 3.5 12/03/2011 CHLORIDE 104 12/03/2011 JENIFER 9.2 12/03/2011 CO2 24 12/03/2011 BUN 12 12/03/2011 CR 0.90 12/03/2011 GLC 90 12/03/2011 Intake/Output Summary (Last 24 hours) at 12/03/11 2404 Last data filed at 12/03/11 1030 Gross per 24 hour Intake 0 ml Output 700 ml Net -700 ml Imaging personally reviewed Current medications and orders reviewed. EXAM: Constitutional: alert, active, no distress and cooperative Cardiovascular: S1S2, RRR. No murmurs, clicks gallops or rub Respiratory: Lungs clear, no rhonchi, crackles or wheeeze, chest symmetric with normal A/P diameter,normal respiratory rate and rhythm, Gastrointestinal: Abdomen soft, non-tender. BS normal. No masses, organomegaly Musculoskeletal: normal muscle tone and peripheral pulses normal. CMS intact to right upper extremity. Splint present. C collar in place. Able to move all extremities, intact ROM. Neuro: CN 2-12 grossly intact, no sensory or motor deficits noted Kendra King, SEBAS ADDENDUM- cervical spine clearance Cervical spine clearance manual exam done along with Amita Porter NP. No pain, cervical collar removed. Attending Attestation: I was present during rounds with the Trauma Team and independently examined the patient. I agree with the Physical Exam, Assessment and Plan as stated above. I spent a total of 25 mins in direct patient contact and counseling. Anita Hoskins RN - 12/03/2011 10:28 AM CDT Pt arrived to unit 7a from [facility] via litter. documented in this encounter H&P Notes Omar Myers - 12/03/2011 3:47 AM CDT Trauma Admission History and Physical Maria E Gonzalez Age: [age] year old Date of : 1955 Date of Admission: 12/03/2011 Chief Complaint: Fall History of Present Illness: Maria E Gonzalez is a 56 year old female who suffers from Chrons disease. Last night she was having trouble falling asleep 2/2 her restless legs and took an over the counter sleep aid as well as 5 benadryls. She was on her way down some stars and slipped. She fell down 6 stairs and hit her head. She denies LOC and remembers the events before and after. She has baseline SOB which she is being worked up, and is thought to be asthma. She denies CP. She denies neck pain. She has baseline abdominal pain which is unchanged. She also complains of right wrist pain. Allergies: Allergies Allergen Reactions ??? Penicillin G ??? Sulfa Drugs ??? Tramadol Medications: Current Facility-Administered Medications Medication ??? HYDROmorphone (DILAUDID) injection 0.2 mg ??? HYDROmorphone (DILAUDID) 0.2 MG/0.2 ML injection ??? sodium chloride (PF) 0.9% PF flush 20 mL ??? iopamidol (ISOVUE-300) IV solution 61% 100 mL ??? HYDROmorphone (DILAUDID) injection 0.2 mg ??? HYDROmorphone (DILAUDID) injection 0.2 mg Current Outpatient Prescriptions Medication ??? OMEPRAZOLE PO ??? UNABLE TO FIND ??? Menthol, Topical Analgesic, (ICY HOT EX) ??? Acetaminophen (TYLENOL EXTRA STRENGTH PO) ??? ergocalciferol (ERGOCALCIFEROL) 34537 UNIT capsule ??? Cyanocobalamin (VITAMIN B-12 IJ) ??? METHOTREXATE SODIUM IJ ??? predniSONE 10 MG KIT ??? levothyroxine (LEVOTHROID) 75 MCG tablet ??? glimepiride (AMARYL) 1 MG tablet ??? BUPROPION HCL PO ??? propranolol (INDERAL) 20 MG tablet ??? ALPRAZolam (XANAX XR) 2 MG 24 hr tablet ??? DULoxetine (CYMBALTA) 60 MG capsule ??? folic acid (FOLVITE) 1 MG tablet ??? Potassium (POTASSIMIN PO) ??? rOPINIRole (REQUIP) 5 MG tablet ??? Loperamide HCl (IMODIUM A-D PO) ??? Pseudoephedrine-Guaifenesin (MUCINEX D PO) ??? Calcium Citrate-Vitamin D (CITRACAL + D PO) Past Medical History: Past Medical History Diagnosis Date ??? Crohn's 1977 on prednisone chronically ??? Osteoporosis ??? Fracture of wrist fall ??? Narcotic dependence, in remission rehab ??? Nicotine dependence in remission Past Surgical History: SP 3 abdominal surgeries SP 2 back surgeries SP right wrist surgery Family History: Family History Problem Relation Age of Onset ??? Arthritis Sister Sjogrens ??? Neurological Sister Multiple sclerosis ??? Cancer Mother 68 Lung ??? Endocrine Disease Mother Hashimotos ??? Endocrine Disease Sister Hashimotos Social History: History Social History ??? Marital Status: Single Spouse Name: N/A Number of Children: N/A ??? Years of Education: N/A Social History Main Topics ??? Smoking status: Former Smoker -- 1.0 packs/day for 18 years ??? Smokeless tobacco: Former User Quit date: 09/20/1991 ??? Alcohol Use: No ??? Drug Use: None no longer ??? Sexually Active: Not Currently -- Male partner(s) twice Other Topics Concern ??? None Social History Narrative Moved to [place] from [facility] to live with Twin sister Joan [place]. Denies E/T/D Lives with twin sister Disability for years Review of Systems: -General: +fatigue, weight stable, denies F/C -HEENT: denies changes in vision or hearing -Neurologic: +headaches and weakness -Respiratory: +SOB at baseline -Cardiovascular: denies CP -Gastrointestinal: denies N/V -Genitourinary: denies blood in urine -Hematologic: denies easy bruising -Dermatologic: denies rashes -Psychiatric: +depression/anxiety Physical Exam: Vitals: Temp: [99.3 ??F (37.4 ??C)] 99.3 ??F (37.4 ??C) Pulse: [100-106] 100 Resp: [16] 16 BP: (150-163)/(89-94) 160/94 mmHg SpO2: [92 %-94 %] 94 % -General: Lying on bed, NAD -Neurologic: GCS 15, AAO x 3, answers questions appropriately, Normal affect CN II-XII grossly intact -Head: NCAT, mid-face stable -Eyes: PERRLA, EOMI -Ears: Mastoid without tenderness -Nose/Mouth/Throat: No rhinorrhea, MMM, OP clear, dentition OK, bite normal per patient -Neck: Supple, no cervical tenderness -Cardiovascular: RRR, no M/R/G -Lungs: Chest stable, CTAB, no W/R/R -Abdominal/Rectal: Soft NTND, no rebound or guarding -Genitourinary: Pelvis stable -Lymphatic: No edema -Musculoskeletal: TAYLOR, no tenderness -Skin: Left moscoso with small abrasion -Vascular: +DP/PT Labs: Lab Results Component Value Date WBC 6.2 12/03/2011 HGB 15.2 12/03/2011 HCT 45.2 12/03/2011 PLT 235 12/03/2011 ALT 29 12/03/2011 AST 35 12/03/2011 NA 139 12/03/2011 BUN 12 12/03/2011 CO2 24 12/03/2011 TSH 0.44 09/20/2011 INR 0.99 12/03/2011 Imaging: CT head P CT neck P CT CAP P CT T&L Assesment: 56 year old female sp fall down 6 stairs with headache, and lower back pain Plan: -Admit to Trauma for Observation -Pain control -FU radiology Discussed with Dr. Ulysses Myers MD Pager [phone] Gabriela Arora MD - 12/03/2011 3:47 AM CDT Addendum - Trauma Surgery Attending I have evaluated patient Maria E Gonzalez with the Trauma midlevel and I have performed my own physical exam. I agree with Assessment and Plan delineated in the note by Dr. Myers, trauma resident. Gabriela Arora MD Pager - [phone] Office - [phone] Critical Care & Acute Care Surgery documented in this encounter Consult Notes Martin Roberts MD - 12/03/2011 8:17 PM CDT REASON FOR CONSULTATION: I was asked by Kendra King from the Trauma Surgery team to evaluate this patient for bilateral pars defects at L5. HISTORY OF PRESENT ILLNESS: Ms. Maria E Gonzalez is a very pleasant 56-year-old female who was havingdifficulty falling asleep last night when she took 5 or 6 Benadryl and tumbled down roughly 6 years.She states that she hit her head flat on the ground but did not lose any consciousness. She is not amnestic to the event and recalls everything quite well actually. She was able to cry for help, at which time her sister came to her aid, after which she was taken to the Emergency Department. She deniesany immediate pain other than significant headaches and a bright flashing light and transient nausea. This all resolved over the next few hours. Other than her headache, she also complained of some neck and low back pain as well right wrist pain. Ms. Gonzalez has Crohn's disease, and therefore suffers from baseline abdominal discomfort. She alsohas baseline shortness of breath, for which she is being worked up by her primary care physician forasthma. She otherwise denies any new fevers, chills or sweats, dizziness, loss of consciousness, vertigo, chest pain, nausea, vomiting, diarrhea, constipation, blood in the stool or urine, changes in bowel or bladder habits or focal neurologic deficits. PAST MEDICAL HISTORY: 1. Crohn's disease. 2. Osteoporosis. 3. Fracture of the wrist. 4. Narcotic dependence, for which she is in remission. 5. Nicotine dependence, for which she is in remission. PAST SURGICAL HISTORY: 1. Open appendectomy in 1985. 2. Small bowel resection in 1985. 3. Sigmoidectomy and removal of left ovary. 4. L4-L5 laminectomy in 2008. 5. Right-sided carpal tunnel release. HOME MEDICATIONS: 1. Omeprazole p.o. 2. Menthol topical analgesic. 3. Acetaminophen. 4. Ergocalciferol 50,000 unit capsule. 5. Vitamin B12 injections. 6. Methotrexate sodium. 7. Prednisone 10 mg daily. 8. Levothyroxine 75 mcg daily. 9. Glimepiride 1 mg. 10. Bupropion. 11. Propranolol 20 mg. 12. Alprazolam XR 2 mg. 13. Duloxetine 60 mg. 14. Folic acid 1 mg. 15. Potassium. 16. Droperidol 5 mg. 17. Loperamide. 18. Mucinex. 19. Calcium citrate, vitamin D. ALLERGIES: 1. Sulfa drugs. 2. Penicillin. 3. Tramadol. FAMILY HISTORY: The patient reports that her sister suffers from multiple sclerosis and Sjogren's disease. She reports that her mother had lung cancer and Yossi's disease. She also has a sister with Yossi's disease. SOCIAL HISTORY: The patient is single and lives at home with her sister. She is currently unemployeddue to disability. She is a former smoker, having smoked a pack a day for 18 years. She quit on 09/20/1991. She does not use any alcohol or other recreational drugs. REVIEW OF SYSTEMS: A comprehensive review of systems is negative other than what was stated in the history of present illness. PHYSICAL EXAMINATION: VITAL SIGNS: The patient is afebrile, 99 degrees Fahrenheit. Her blood pressure is 102/63, her heartrate is 80 and her oxygen saturation is 97% on room air. GENERAL: The patient is lying in bed in mild distress due to pain in her cervical and lumbar spines.She is otherwise pleasant and cooperative. HEAD AND NECK: There is mild periorbital ecchymoses around the right eye. Her head is otherwise normocephalic and atraumatic. No lymphadenopathy. Her cervical spine is secured in place with an Roscoe collar. CARDIOVASCULAR: Normal rate, regular rhythm. PULMONARY: Nonlabored breathing. ABDOMEN: Soft, nontender, nondistended. No guarding or rebound tenderness. EXTREMITIES: Warm, well perfused bilaterally. She does have an Rick wrap bandage around her right wrist and forearm. NEUROLOGIC: Mental status: The patient is awake, alert and oriented to person, place, time and situation. Her speech is fluent and appropriate. She follows commands in all 4 extremities. Cranial nerves: Pupils are equal, round and reactive to light. Extraocular movements are intact, conjugate and without nystagmus bilaterally. Sensation to light touch is symmetrically intact throughoutall 3 divisions of the trigeminal nerve. She does not have facial droop, smile is symmetric. She hasstrong eye closure and eyebrow raising bilaterally. Functional hearing is intact. Her uvula and palate are midline on elevation and her tongue is midline on protrusion. She has full strength in her sternocleidomastoids and on shoulder shrug bilaterally. 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 Sensory: Symmetrically intact to light touch throughout all 4 extremities. Reflexes: Her biceps, triceps, brachioradialis, patellar and Achilles reflexes are 2+ bilaterally and symmetric. She does have ankle clonus on either side, and her toes are downgoing on Babinski bilaterally. LABORATORY DATA: Basic metabolic panel, complete blood count and coagulation studies were obtained last night in the Emergency Department. They are mostly unremarkable. Of note, her sodium is 139. Her creatinine 0.9. Her white blood cell count 6.2, hemoglobin 15.2, platelets 235,000 and INR 0.99. IMAGING: Noncontrasted head CT obtained in the emergency department demonstrates an asymmetric hypodensity and loss of valera white differentiation in the left medial occipital lobe, for which an MRI wasordered earlier today. There was no acute infarct noted on the MRI. 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 ASSESSMENT: The patient is a 56-year-old female who is neurologically intact and stable with imagingfindings that demonstrate bilateral chronic L5 pars defects. 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 No neurosurgical intervention necessary at this time. RECOMMENDATIONS: The patient can be discharged from this hospitalization as per the primary team. Ifshe sees fit, she can follow up in Neurosurgery Clinic with our nurse practitioner, Jessica Arias, by calling [phone]. DAYDAY BRADY MD As dictated by MARTIN ROBERTS MD MT: ROSEANNE Name: MARIA E GONZALEZ Account: [id number] : 1955 Consult Date: 12/03/2011 Document: [id number] ICAL RESOURCE NURSE Dayday Brady MD - 12/03/2011 8:17 PM CDT I have seen and examined the patient and agree with the above assessment and plan. AG ICAL RESOURCE NURSE documented in this encounter ED Notes Robert Rodríguez RN - 12/03/2011 7:14 AM CDT Report given to Norma Westfall RN. Peyton Giordano MD - 12/03/2011 7:13 AM CDT Seen by trauma. CTs per their recommendation include entire spine CT, chest/abd/pelvis ct and head ct. Also wrist xray. Possible fracture of wrist - patient placed in orthoglass splint. Remains in c collar. Pars defect noted L5- s1. Admit to trauma. IV dilaudid for pain. Peyton Giordano MD 12/03/11 0715 Robert Rodríguez RN - 12/03/2011 3:50 AM CDT Pt A&O X3. GCS 15, VSS, family at bedside. Robert Rodríguez RN - 12/03/2011 3:20 AM CDT Pt states she has tingling in both feet and cold down her back. CMS intact. Robert Rodríguez RN - 12/03/2011 3:07 AM CDT Pt arrived to [facility] via EMS Serg Oliver - 12/03/2011 3:04 AM CDTBed:ED02
Expected date:12/03/11
Expected time: 3:00 AM
Means of arrival:Ambulance
Comments:
Beck Tejada Transfer from [place]. Pt brought in by family after a fall from 5-6 steps. Pt is c-collared by [place] prior to transfer. 20g R AC after multiple attempts, R wrist, R moscoso pain, and neck pain. looks older than stated age Marie Clarke RN - 12/03/2011 2:45 AM CDT EMS here to transport patient. Report given and patient back boarded for transport. Duane Mcallister MD - 12/03/2011 2:33 AM CDT History Chief Complaint Patient presents with ??? Fall Pt fell down stairs and hit head around 1 am Patient is a 56 year old female presenting with fall. The history is provided by the patient and a friend. Fall The accident occurred less than 1 hour ago. She fell from a height of 6 to 10 ft. The point of impact was the head and right wrist. The pain is at a severity of 8/10. The pain is moderate. She was ambulatory at the scene. There was no alcohol use involved in the accident. Associated symptoms include abdominal pain, headaches and loss of consciousness. Pertinent negatives include no fever. Maria E Gonzalez is a 56 year old female who presents with 6-7 stairs with brief loss of consciousness patient notes headache ongoing right wrist pain upper abdominal pain and low back pain. I have reviewed the Medications, Allergies, Past Medical and Surgical History, and Social [facility] Review of Systems Constitutional: Negative for fever. Respiratory: Negative for shortness of breath. Cardiovascular: Negative for chest pain. Gastrointestinal: Positive for abdominal pain. Neurological: Positive for loss of consciousness and headaches. All other systems reviewed and are negative. Physical Exam BP: 150/91 mmHg Pulse: 106 SpO2: 92 % Physical Exam Constitutional: No distress. HENT: Head: Atraumatic. Mouth/Throat: Oropharynx is clear and moist. No oropharyngeal exudate. Eyes: Pupils are equal, round, and reactive to light. No scleral icterus. Cardiovascular: Normal heart sounds and intact distal pulses. Pulmonary/Chest: Breath sounds normal. No respiratory distress. Abdominal: Soft. Bowel sounds are normal. There is no tenderness. Musculoskeletal: Right wrist: She exhibits decreased range of motion and tenderness. Skin: Skin is warm. No rash noted. She is not diaphoretic. Psychiatric: Her mood appears anxious. ED Course Procedures Patient was placed in a collar and [facility] I discussed the case with both emergency room and trauma staff. Critical Care time: none CMS Diagnoses: None Labs Ordered and Resulted from Time of ED Arrival Up to the Time of Departure from the ED - No data to display Assessments & Plan (with Medical Decision Making) I have reviewed the nursing notes. I have reviewed the findings, diagnosis, plan and need for follow up with the patient. Patient with fall down stairs will require trauma evaluation on [facility]. New Prescriptions No medications on file Final diagnoses: Fall down stairs 12/03/2011 [facility], [place], EMERGENCY DEPARTMENT Duane Mcallister MD 12/03/11 0243 Terrell Clarke RN - 12/03/2011 2:24 AM CDT Brought to room 3, pt/family states fell down stairs at home. C/O Neck, R wrist, R leg and R facial pain C-leyla whitt MD at bedside. documented in this encounter Miscellaneous Notes Initial Assessments - Gabriela Arora MD - 12/05/2011 8:31 AM CDT Plan of Care - Carolin Franklin RN - 12/03/2011 10:55 PM CDT Problem: IP GENERAL POC-ADULT,OB,BEHAVIORAL FVCPM Goal: Plan of Care Review (Adult,OB,Behavioral) The patient and/or their claim representative will communicate an understanding of their plan of care. The patient and her twin sister agreed with the plan of care on pain management. Patient was sent home on Percocet. Pharmacy-Admission Medication History - Marlen Caridad Lee, [facility] - 12/03/2011 7:18 PM CDT Admission medication history interview status for the 12/03/2011 admission is complete. See [facility] admission navigator for allergy information, prior to admission medications and immunization status. Medication history interview source(s):Patient Medication history resources (including written lists, pill bottles, clinic record):None Medication history source reliability:Moderate Primary pharmacy: [facility] phone number: [phone] Pneumococcal and influenza vaccine history documented: yes Changes made to MEDICAL LABORATORY TECHNOLOGIST medication list: Added: Reclast, Methotrexate dose, Omeprazole dose, Potassium dose Deleted: Changed: Bupropion to 150mg BID, Cyanocobalmin 1mg IM qmonth, Folic acid instructions, Actions taken by pharmacist (provider contacted, etc):None Additional medication history information: Pt takes Ergocalciferol on /Sat. Last got Reclast 1.5 years ago. Hasn't been taking Methotrexate or folic acid due to methotrexate recall. Medication reconciliation/reorder completed by provider prior to medication history? Yes Time spent in this activity: 45 min Prior to Admission Medications Medication Last Dose Patient Reported? Taking? zoledronic Acid (RECLAST) 5 MG/100ML SOLN 1.5 years ago Yes Yes Inject 5 mg into the vein. Annually in the beginning of the year buPROPion (WELLBUTRIN SR) 150 MG 12 hr tablet 12/03/2011 at Unknown Yes Yes Take 150 mg by mouth 2 times daily. AM and 1 PM cyanocobalamin 1000 MCG/ML injection More than a month at Unknown Yes No Inject 1 mL into the muscle every 30 days. FOLIC ACID PO Past Month at Unknown Yes Yes Take 1 mg by mouth daily. Take while on methotrexate. methotrexate 25 MG/ML injection Past Month at Unknown Yes Yes Inject 25 mg into the muscle once a week. Indications: Crohn's Disease OMEPRAZOLE PO Yes Yes Take 20 mg by mouth 2 times daily (before meals). Potassium Chloride Nancy CR (K-DUR PO) 12/03/2011 at Unknown Yes Yes Take 16 mEq by mouth 3 times daily. guaiFENesin (MUCINEX) 600 MG 12 hr tablet Yes Yes Take 600 mg by mouth 2 times daily. UNABLE TO FIND Yes No nightly as needed. MEDICATION NAME: Calms Forte Menthol, Topical Analgesic, (ICY HOT EX) Yes No Externally apply topically. Patient uses Gel, Cream and Patch PRN Acetaminophen (TYLENOL EXTRA STRENGTH PO) 12/03/2011 at Unknown Yes Yes Take 2 tablets by mouth 2 times daily. For Tooth Extraction Pain ergocalciferol (ERGOCALCIFEROL) 98391 UNIT capsule Yes No One capsule twice weekly predniSONE 10 MG KIT 12/03/2011 at 0800 Yes Yes Take by mouth daily. levothyroxine (LEVOTHROID) 75 MCG tablet 12/03/2011 [place] [id number] Yes Yes Take by mouth daily. glimepiride (AMARYL) 1 MG tablet 12/03/2011 at 0800 Yes Yes Take 1 mg by mouth every morning (before breakfast). propranolol (INDERAL) 20 MG tablet Yes No Take 20 mg by mouth daily. ALPRAZolam (XANAX XR) 2 MG 24 hr tablet Yes No Take 2 mg by mouth every morning. DULoxetine (CYMBALTA) 60 MG capsule Yes No Take by mouth daily. rOPINIRole (REQUIP) 5 MG tablet 12/03/2011 at 0800 Yes Yes Take 5 mg by mouth 2 times daily. Loperamide HCl (IMODIUM A-D PO) Yes No Take by mouth. 8-10 tablets daily Unknown dose Calcium Citrate-Vitamin D (CITRACAL + D PO) Yes No Take 2 tablets by mouth daily. Caridad Gee PharmD [phone] (text capable) Plan of Anthony - Carolin Franklin RN - 12/03/2011 6:00 PM CDT Problem: Pain, Acute (Adult) Goal: Acute Pain: Acceptable Pain Control/Comfort Level Patient will demonstrate the desired outcomes. Patient complained of all over body pain. She remains in her cervical collar. She has a right wrist splint. She states her back pain is 4/10. Will continue to monitor her pain management. Patient now complaining of DONNELLY. Rates it as 2/10. Percocet 2 tablets given before discharge. Plan of Care - Nori uAgustin RN - 12/03/2011 4:01 PM CDT Problem: IP GENERAL POC-ADULT,OB,BEHAVIORAL FVCPM Goal: Discharge Planning (Adult, OB, Behavioral, Peds) Pain management no Plan of Anthony - Carolin Franklin RN - 12/03/2011 4:00 PM CDT Problem: Pain, Acute (Adult) Goal: Acute Pain: Acceptable Pain Control/Comfort Level Patient will demonstrate the desired outcomes. Patient complained of all over body pain. She remains in her cervical collar. She has a right wrist splint. She states her back pain is 4/10. Will continue to monitor her pain management. documented in this encounter Plan of Treatment Not on filedocumented as of this encounter Procedures Procedure Name Priority Date/Time Associated Comments Diagnosis MR BRAIN FOR STROKE STAT 12/03/2011 1:37 PM Re sults for this COMPLETE W/O & W CDT procedure a re in CONTRAST the results section. XR WRIST RIGHT G/E 3 STAT 12/03/2011 6:27 AM R esults for this VIEWS CDT procedure are i n the results section. CT THORACIC SPINE W/O STAT 12/03/2011 4:51 AM Results for this CONTRAST CDT procedure are i n the results section. CT LUMBAR SPINE W/O STAT 12/03/2011 4:51 AM Re sults for this CONTRAST CDT procedure are i n the results section. CT CERVICAL SPINE W/O STAT 12/03/2011 4:45 AM Results for this CONTRAST CDT procedure are i n the results section. CT HEAD W/O CONTRAST STAT 12/03/2011 4:44 AM R esults for this CDT procedure are i n the results section. CT CHEST ABDOMEN PELVIS STAT 12/03/2011 4:35 AM Results for this W/ CONTRAST CDT procedure are i n the results section. CBC WITH PLATELETS & STAT 12/03/2011 2:45 AM R esults for this DIFFERENTIAL CDT procedure are i n the results section. INR STAT 12/03/2011 2:45 AM Results f or this CDT procedure are i n the results section. PARTIAL THROMBOPLASTIN Routine 12/03/2011 2:45 AM Results for this TIME CDT procedure are i n the results section. COMPREHENSIVE METABOLIC STAT 12/03/2011 2:45 AM Results for this PANEL CDT procedure are i n the results section. documented in this encounter Results MRI Brain for stroke complete ([place] Only) (12/03/2011 1:37 PM CDT) Anatomical Region Laterality Modality Head, SUBRAD MR NEURO, UMP MR NEURO Othe r Specimen (Source) Anatomical Collection Method Collection Time Re ceived Time Location / / Volume Laterality 12/03/2011 1:37 PM CDT Impressions 12/12/2011 9:00 AM CDT MRI brain without and with contrast MRA of the head without contrast Neck MRA without and with contrast History: ??Left medial occipital lobe hy podensity on CT.. Comparison: ??Head CT on 12/03/2011. Technique: Brain MRI: ??Axial diffusion, FLAIR, T2- weighted, susceptibility, and coronal T1-weighted images were obtained without intravenous contrast. Following intravenous gadolini um-based contrast administration, axial and coronal T1-analia ghted images were obtained. Head MRA: 3D [id number] MRA of the c ircle of Fel[place] was performed without intravenous contrast. Neck MRA: ??Limited non contrast 2DTOF i mages were obtained of the mid-cervical region. Following intraveno us gadolinium-based contrast administration, a contrast enhanced MRA of the neck/cervical vessels was performed. Findings: Brain MRI: Axial diffusion weighted imag es demonstrate no acute infarct. There is no abnormal T2/FLAIR s ignal.. There is no intracranial hemorrhage on susceptibilit y images. Contrast-enhanced images of the brain demonstrate no abnor mal intra- or extra-axial enhancement. The mastoid air cells and p aranasal sinuses are clear. The orbits, sellar structures and cerebe llum within normal limits. Head MRA demonstrates no definite aneury sm or stenosis of the major intracranial arteries. The anterior comm unicating artery is patent. Regarding the posterior communicating ar teries, both are patent. Neck MRA demonstrates patent major cervi jenifer arteries. Impression: 1. No evidence of acute infarction or in tracranial hemorrhage. Specifically no abnormality in the left medial occipital where there is subtle CT finding. 2. No abnormal enhancing lesions intracr anially. 3. Head MRA demonstrates no definite ane urysm or stenosis of the major intracranial arteries. 4. Neck MRA demonstrates patent major ce rvical arteries. I have personally reviewed the image and initial interpretation and agree with the findings. Amita Porter APRN, CNP IMG MRI ORDERABLES Wrist XR, G/E 3 views, right (12/03/2011 6:27 AM CDT) Anatomical Region Laterality Modality Right Wrist Right Other Specimen (Source) Anatomical Collection Method Collection Time Re ceived Time Location / / Volume Laterality 12/03/2011 6:27 AM CDT Impressions 12/03/2011 7:14 AM CDT WRIST G/E 3 VIEWS RIGHT * , 12/03/2011 6: 27 AM COMPARISON: None HISTORY: ?? Pain, fall . FINDINGS: There is an old ulnar styloid fracture. Cortical irregularity along the dorsal surface of the distal radius may represent an acute fracture. IMPRESSION: Mild cortical irregularity a long the dorsal surface of the distal radius may represent acute fr acture. A repeat film in 7-10 days may better define the fracture line . The findings were discussed with Dr. Jack zhou at 6:30 AM. I have personally reviewed the image and initial interpretation and agree with the findings. Peyton Giordano MD IMG DIAGNOSTIC IMAGING ORDER EB Lumbar spine CT w/o contrast (12/03/2011 4:51 AM CDT) Anatomical Region Laterality Modality Spine, SUBRAD CT MSK, P CT SPINE Compu jose luis Tomography Specimen (Source) Anatomical Collection Method Collection Time Re ceived Time Location / / Volume Laterality 12/03/2011 4:51 AM CDT Impressions 12/12/2011 12:[address] of the Lumbar Spine without contrast History: Pain Comparison: none Technique: Using multidetector thin jazmin imation helical acquisition technique, axial, coronal and sagittal [address] images through the lumbar spine were obtained. ??Images were reviewed in bone and soft tissue windows. Findings: The normal lumbar lordosis is preserved . Vertebral alignment is intact . There is ? dis c height narrowing at the L3-4 and L4-5 level with endplate degenerativ e changes and degenerative bone cyst at the inferior endplate of L4 . The paraspinous tissues are within normal limits. Findings on a level by level basis are as follows: L1-L2: The spinal canal and neural mervin ben bilaterally are normal. L2-L3: Eccentric left broad based disc b ulge with mild narrowing of the left neural foramen and effacement o f the ventral left thecal sac. The right neural foramen is patent. . L3-L4: No significant spinal process or neural foraminal narrowing. L4-L5: Complete loss of disc height with endplate degenerative sclerosis. No significant spinal canal s tenosis. No significant neuroforaminal narrowing. L5-S1: The spinal canal and neural mervin ben bilaterally are normal. Bilateral pars defect of the L5 vertebra , without anterolisthesis. Impression: 1. No acute fracture or subluxation. 2. Multilevel degenerative changes most prominent at the L2-3 and L4-5 level with mild left neural foramin al narrowing at the L2-3 level. 3. Bilateral pars defect of L5. I have personally reviewed the image and initial interpretation and agree with the findings. Peyton Giordano MD IMG CT ORDERABLES CT Thoracic spine w/o contrast (12/03/2011 4:51 AM CDT) Anatomical Region Laterality Modality Spine, SUBRAD CT NEURO, P CT SPINE Com puted Tomography Specimen (Source) Anatomical Collection Method Collection Time Re ceived Time Location / / Volume Laterality 12/03/2011 4:51 AM CDT Impressions 12/12/2011 12:[address] of the Thoracic Spine without contras t History: Fall, pain Comparison: none Technique: Using multidetector thin jazmin imation helical acquisition technique, axial, sagittal and coronal [address] reconstructions were obtained through th e thoracic spine without intravenous contrast. ??Images were view ed in bone and soft tissue windows. Findings: Thoracic spine alignment is within aleisha l limits . There is no evidence of fracture or significant prev ertebral soft tissue swelling . There is no disc height narrowing ? .The spinal canal and neural foramina are patent . The visualized pre vertebral and paravertebral tissues do not demonstrate any acute abn ormalities.. Impression: No evidence of fractures or subluxations in the thoracic spine . I have personally reviewed the image and initial interpretation and agree with the findings. Peyton Giordano MD [facility] CT ORDERABLES Cervical spine CT w/o contrast (12/03/2011 4:45 AM CDT) Anatomical Region Laterality Modality Spine, SUBRAD CT NEURO, SUBRAD CT NEURO, P CT SPINE Computed Tomography Specimen (Source) Anatomical Collection Method Collection Time Re ceived Time Location / / Volume Laterality 12/03/2011 4:45 AM CDT Impressions 12/03/2011 10:[address] of the Cervical Spine without contras t History: Fall Comparison: ??none Technique: Using multidetector thin jazmin imation helical acquisition technique, axial, coronal and sagittal [address] images of the cervical spine were obtained without intravenous contrast. Images were reviewed in bone and soft tissue wi ndows. Findings: ?? The lateral masses of C1 ap pear normally aligned on C2 . There is no acute fracture. Mild anterol isthesis of C3 on C4 is noted. There is mild disc space narrowin g at C4-C5, C5-C6 and C6-C7. Mild endplate irregularities are noted a t C5-C6 and C6-C7. There are posterior osteophytes at these levels. T here are multilevel neural foraminal stenosis due to uncovertebral osteophytes. No significant canal stenosis at any level. Vertebral h eights are preserved. The normal cervical lordotic curvature is pr eserved . There is no evidence of fracture or significant prev ertebral soft tissue swelling . ? . ?. Findings on a level by level basis are as follows: No abnormality is noted of the visualize d paraspinous tissues . Impression: No evidence of acute fracture or subluxa tion. Mild anterolisthesis of C3 on C4 likely on degenerative basis. D egenerative changes most significant at C4-C5, C5-C6 and C6-C7. Peyton Giordano MD [facility] CT ORDERABLES Head CT w/o contrast (12/03/2011 4:44 AM CDT) Anatomical Region Laterality Modality Head, SUBRAD CT NEURO, SUBRAD CT NEURO, UMP CT NEURO Computed Tomography Specimen (Source) Anatomical Collection Method Collection Time Re ceived Time Location / / Volume Laterality 12/03/2011 4:44 AM CDT Impressions 12/03/2011 10:[address] of the Head without contrast History: fall/pain, . Comparison: none Technique: Helical thin section image da ta were obtained from the skull base to the vertex without intrave nous contrast. Axial and coronal images were reconstructed and re viewed in brain, bone and subdural windows. Findings: There is asymmetric hypodensity and loss of valera-white differentiation in the left medial occip ital lobe (se 2, image 15-17). A followup MRI is recommended to exclude an acute infarction. Otherwise no intracranial hemorrhage no extra-axial collection or hemorrhage are noted. There is no fractu re. Mastoid air cells and paranasal sinuses are clear. Impression: Asymmetric hypodensity and loss of valera- white differentiation in the left medial occipital lobe, could be art ifactual, however can not exclude an acute infarction. An MRI of t he brain is recommended to exclude acute infarction. SCHOOL PSYCHOMETRIST Porter was notified regarding the ab ove findings and read back verification was obtained on 12/03/11, at 10:00 am. Peyton Giordano MD IMG CT ORDERABLES Chest/abd/pelvis CT- IV contrast only TRAUMA (12/03/2011 4:35 AM CDT) Anatomical Region Laterality Modality Abdomen, Chest, Pelvis, Hip Computed Faisal ography Specimen (Source) Anatomical Collection Method Collection Time Re ceived Time Location / / Volume Laterality 12/03/2011 4:35 AM CDT Impressions 12/03/2011 7:14 AM CDT Exam: CT of the chest, abdomen and pelvi s with contrast 12/03/2011 4:35 AM History: Pain, fall Comparison: None. Technique: Helical acquisition from the thoracic inlet to the pubic symphysis with the administration of IV contrast only. Axial and coronal reconstructions were viewed in b one, soft tissue, and lung windows. Total DLP: 1524. Findings: Lung Bases: Mild dependent atelectasis i n both lungs. The heart is at the upper limits of normal for size. The re is no large central pulmonary embolus. Mild calcified athero sclerotic plaque in the aortic arch without evidence of aneurysm . There is no mediastinal, hilar, or axillary lymphadenopathy. The visualized thyroid gland is normal in appearance. There is no pleura l or pericardial effusion. Abdomen/pelvis: The liver is normal in a ppearance. Normal appearance of the gallbladder. The common bile duct is dilated measuring approximately 1.2 cm at the pancreatic h ead. No obstructing lesion is identified. The pancreas is normal in ap pearance. There is no pancreatic ductal dilatation seen. Aleisha l appearance of the spleen. Two splenules are visualized adjacent to the splenic hilum. The adrenal glands and left kidney are aleisha l in appearance. There is a 0.7 cm too small to characterize hypoden sity in the interpolar cortex of the right kidney. The stomach and duodenal sweep are aleisha l in appearance. There are no dilated loops of small or large bowel. T here is no bowel wall thickening. ??The terminal ileum is norm al in appearance. The appendix is not definitely visualized however, th ere is no inflammatory change in the right lower quadrant to suggest a cute appendicitis. No free intraperitoneal air or fluid. ??A Matthew catheter is visualized within the urinary bladder. Air is seen in the anti-dependent bladder lumen. The bladder is otherwise unremarkable in appearance. The uterus is atrophic in appearance. There is a 1.7 c m heterogeneously cystic/solid lesion in the region of the right ovary with coarse internal calcification seen. This may re present a small ovarian teratoma. The left ovary is not visualiz ed. There is no pelvic, retroperitoneal, or mesenteric lymphaden opathy. The aorta and IVC are normal in caliber. ??The splenic vein and portal veins are patent. Vacuum disc phenomenon at the T7-T8 inte rspace. There is severe degenerative disc disease at L5-S1 with endplate sclerosis and subchondral cyst formation. Bilateral pa rs defects at L5-S1. There is sclerosis at the fracture margins on the right however, the left sided fracture appears more acute. There are no agressive appearing bone lesions. Impression: 1. No evidence of traumatic injury to th e chest, abdomen, or pelvis. 2. Chronic bilateral pars defects at L5- S1. 3. Dilation of the common bile duct marques uring approximately 1.2 cm at the pancreatic head. No definite obstruc ting lesion is identified. MRCP could be obtained for further evalu ation. 4. Too small to characterize hypodensity on the right kidney. 5. 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 The findings were discussed with Dr. Jack zhou at 6:40 AM. I have personally reviewed the image and initial interpretation and agree with the findings. Peyton Giordano MD IMG CT ORDERABLES Partial thromboplastin time (12/03/2011 2:45 AM CDT) athologist Signature PTT 35 22 - 37 sec [facility] LAB Specimen Anatomical Collection Method Collection Time Receive d Time (Source) Location / / Volume Laterality 12/03/2011 2:45 AM 2 2:53 CDT AM CDT Duane Mcallister MD LAB - BLOOD ORDERABLES Performing Organization Address City/[facility] Phon e Number [address] LAB INR (12/03/2011 2:45 AM CDT) athologist Signature INR 0.99 0.86 - 1.14 [facility] LAB Specimen Anatomical Collection Method Collection Time Receive d Time (Source) Location / / Volume Laterality Blood specimen 12/03/2011 2:45 AM 012 2:53 (specimen) CDT AM CDT Duane Mcallister MD LAB - BLOOD ORDERABLES Performing Organization Address City/[facility] Phon e Number [address] LAB Comprehensive metabolic panel (12/03/2011 2:45 AM CDT) athologist Signature Sodium 139 133 - 144 [facility] mmol/L LAB Potassium 3.5 3.4 - 5.3 [facility] [place] mmol/L LAB Chloride 104 94 - 109 [facility] [place] mmol/L LAB Carbon Dioxide 24 20 - 32 [facility] [place] mmol/L LAB Anion Gap 11.7 6 - 17 [facility] mmol/L LAB Glucose 90 60 - 99 [facility] mg/dL LAB Urea Nitrogen 12 7 - 30 [facility] [place] mg/dL LAB Creatinine 0.90 0.52 - [facility] [place] 1.04 mg/dL LAB GFR Estimate 65 >60 [facility] [place] mL/min/1.7 LAB m2 GFR Estimate If 78 >60 [facility] [place] Black mL/min/1.7 LAB m2 Calcium 9.2 8.5 - 10.4 [facility] mg[facility] Bilirubin Total 0.5 0.2 - 1.3 [facility] [place] mg/dL LAB Albumin 4.4 3.3 - 4.9 [facility] [place] g/dL LAB Protein Total 7.0 6.8 - 8.8 [facility] [place] g/dL LAB Alkaline 81 40 - 150 [facility] Phosphatase U/L LAB ALT 29 0 - 50 U/L [facility] [place] LAB AST 35 0 - 45 U/L [facility] [place] LAB Specimen Anatomical Collection Method Collection Time Receive d Time (Source) Location / / Volume Laterality Blood specimen 12/03/2011 2:45 AM 012 2:53 (specimen) CDT AM CDT Duane Mcallister MD LAB - BLOOD ORDERABLES Performing Organization Address City/State/ZIP Code Phon e Number [facility] [address] [place], [place] [id number] [place] [address] [facility] CBC with platelets differential (12/03/2011 2:45 AM CDT) [facility] gist Method Time Signature WBC 6.2 4.0 - [facility] 11.0 [place] 10e9/L LAB RBC Count 5.03 3.8 - 5.2 [facility] 10e12/L [place] LAB Hemoglobin 15.2 11.7 - [facility] 15.7 g/dL [place] LAB Hematocrit 45.2 35.0 - [facility] 47.0 % [place] [facility] MCV 90 78 - 100 [facility] fl [place] LAB MCH 30.2 26.5 - [facility] 33.0 pg [place] [facility] MCHC 33.6 31.5 - [facility] 36.5 g/dL [place] [facility] RDW 13.3 10.0 - [facility] 15.0 % [place] [facility] Platelet Count 235 150 - 450 [facility] 10e9/L [place] [facility] Diff Method Automated [facility] Method [place] LAB % Neutrophils 59.2 40 - 75 % [facility] [place] LAB % Lymphocytes 24.9 20 - 48 % [facility] [place] LAB % Monocytes 13.6 (H) 0 - 12 % [facility] [place] LAB % Eosinophils 1.6 0 - 6 % [facility] [place] LAB % Basophils 0.5 0 - 2 % [facility] [place] [facility] % Immature 0.2 0 - 0.4 % [facility] Granulocytes [place] [facility] Absolute 3.7 1.6 - 8.3 [facility] Neutrophil 10e9/L [place] [facility] Absolute 1.5 0.8 - 5.3 [facility] Lymphocytes 10e9/L [place] [facility] Absolute 0.8 0.0 - 1.3 [facility] Monocytes 10e9/L [place] [facility] Absolute 0.1 0.0 - 0.7 [facility] Eosinophils 10e9/L [place] [facility] Absolute 0.0 0.0 - 0.2 [facility] Basophils 10e9/L [place] [facility] Abs Immature 0.0 0 - 0.03 [facility] Granulocytes 10e9/L [place] LAB Specimen Anatomical Collection Method Collection Time Receive d Time (Source) Location / / Volume Laterality Blood specimen 12/03/2011 2:45 AM 012 2:53 (specimen) CDT AM CDT Duane Mcallister MD LAB - BLOOD ORDERABLES Performing Organization Address City/State/ZIP Code Phon e Number [facility] [address] [place] [address] [facility] documented in this encounter Visit Diagnoses Diagnosis Fall down stairs - Primary Accidental fall on or from other stairs or steps Wrist injury Injury, other and unspecified, elbow, fo rearm, and wrist Fracture of lumbar spine (H) Closed fracture of lumbar vertebra witho ut mention of spinal cord injury Adjustment disorder with mixed anxiety a nd depressed mood Cholelithiases Calculus of gallbladder without mention of cholecystitis or obstruction Concussion Concussion, unspecified Crohn's disease of both small and large intestine with complication (H) 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 Fall Unspecified fall Fatigue Other malaise and fatigue Right wrist fracture Unspecified closed fracture of carpal ricki ne Sacro-iliac pain Disorders of sacrum documented in this encounter Administered Medications Inactive Administered Medications - up to 3 most recent administrations Medication Order MAR Action Action Date Dose Rate Site dextrose 5 % and 0.45 % NaCl + New Bag 12/03/2011 1:49 PM CDT 100 mL/hr KCl 20 mEq/L at 100 mL/hr, Intravenous, CONTINUOUS, Starting on Sat12/03/11 at 1030, Until Sat12/03/11 at 2144 HYDROcodone-acetaminophen 5-325 MG per Given 12/03/2011 9:46 AM CDT 1 tablet tablet 1 tablet 1 tablet, Oral, ONCE, On Sat12/03/11 at 0942, For 1 dose HYDROmorphone (DILAUDID) injection 0.2 m g Given 12/03/2011 4:01 AM CDT 0.2 mg 0.2 mg, Intravenous, ONCE, On Sat12/03/11 at 0359, For 1 dose HYDROmorphone (DILAUDID) injection 0.2 m g Given 12/03/2011 4:35 AM CDT 0.2 mg 0.2 mg, Intravenous, ONCE, On Sat12/03/11 at 0434, For 1 dose HYDROmorphone (DILAUDID) injection 0.2 m g Given 12/03/2011 6:15 AM CDT 0.2 mg 0.2 mg, Intravenous, ONCE, On Sat12/03/11 at 0610, For 1 dose iopamidol (ISOVUE-300) IV solution 61% 100 Given 12/03/2011 4:31 AM CDT 100 mLs mL 100 mL, Intravenous, ONCE, On Sat12/03/11 at 0416, For 1 dose LORazepam (ATIVAN) tablet 1 mg Given 12/03/2011 11:59 AM CDT 1 mg 1 mg, Oral, ONCE, On Sat12/03/11 at 1115, For 1 dose, Give 15 to 30 minutes before going to MRI please omeprazole (priLOSEC) capsule 20 mg Given 12/03/2011 12:06 PM CDT 20 mg 20 mg, Oral, EVERY MORNING, First dose on Sat12/03/11 at 1030 oxyCODONE-acetaminophen (PERCOCET) 5-325 Given 12/03/2011 5: 58 PM CDT 2 tablets MG per tablet 1-2 tablet 1-2 tablet, Oral, EVERY 4 HOURS PRN, moderate to severe pain, Starting on Sat12/03/11 at 1029 predniSONE (DELTASONE) tablet 10 mg Given 12/03/2011 12:05 PM CDT 10 mg 10 mg, Oral, DAILY, First dose on Sat12/03/11 at 1030 sodium chloride (PF) 0.9% PF flush 20 mL Given 12/03/2011 4:31 AM CDT 40 mLs 20 mL, Intravenous, ONCE, On Sat12/03/11 at 0416, For 1 dose documented in this encounter Active and Recently Administered Medications Times are shown in CDT. Scheduled Medication Order 12/01/2011 12/02/2011 12/03/2011 HYDROcodone-acetaminophen 5-325 MG per tablet 1 tablet (COMPLETE D) 0946 (Given - Provider: Norma Westfall RN) 1 tablet, Oral, ONCE, Sat12/03/11 at 0942, For 1 dose HYDROmorphone (DILAUDID) injection 0.2 mg (COMPLETED) 0401 (Given - Provider: Robert Rodríguez RN) 0.2 mg, Intravenous, ONCE, 1 dose, Sat12/03/11 at 0359 HYDROmorphone (DILAUDID) injection 0.2 mg (COMPLETED) 0435 (Given - Provider: Robert Rodríguez RN)0441 (Due) 0.2 mg, Intravenous, ONCE, 1 dose, Sat12/03/11 at 0434 HYDROmorphone (DILAUDID) injection 0.2 mg (COMPLETED) 0615 (Given - Provider: Robert Rodríguez RN) 0.2 mg, Intravenous, ONCE, 1 dose, Sat12/03/11 at 0610 iopamidol (ISOVUE-300) IV solution 61% 100 mL (COMPLETED) 0431 (Given - [facility]: [facility]) 100 mL, Intravenous, ONCE, Sat12/03/11 at 0416, For 1 dose LORazepam (ATIVAN) tablet 1 mg (COMPLETED) 1159 (Given - Provider: Nori Auugstin, NANDINI) 1 mg, Oral, ONCE, Sat12/03/11 at 1115, F or 1 dose, Give 15 to 30 minutes before going to MRI please omeprazole (priLOSEC) capsule 20 mg (CANCELED) 1206 (Given - Provider: Nori Augustin, NANDINI) 20 mg, Oral, EVERY MORNING, First dose on Sat12/03/11 at 1030 predniSONE (DELTASONE) tablet 10 mg (CANCELED) 1205 (Given - Provider: Nori Augustin, RN - Comment: given when available) 10 mg, Oral, DAILY, First dose on Sat12/03/11 at 1030 sodium chloride (PF) 0.9% PF flush 20 mL (COMPLETED) 0431 (Given - Provider: Corn[facility]ibe[facility]) 20 mL, Intravenous, ONCE, Sat12/03/11 at 0416, For 1 dose Continuous Medication Order 12/01/2011 12/02/2011 12/03/2011 dextrose 5 % and 0.45 % NaCl + KCl 20 mEq/L (CANCELED) 1349 (New Bag - Provider: Nori Augustin, NANDINI) Intravenous, at 100 mL/hr, CONTINUOUS, Starting Sat12/03/11 at 1 030 PRN Medication Order 12/01/2011 12/02/2011 12/03/2011 oxyCODONE-acetaminophen (PERCOCET) 5-325 MG per tablet 1-2 table t 1758 (Given - Provider: Carolin Franklin RN) 1-2 tablet, Oral, EVERY 4 HOURS PRN, mod erate to severe pain, Starting Sat12/03/11 at 1029 documented in this encounter Care Teams [employer] Relationship Specialty Start Date End Date Edison Tam MD PCP - General Family Practice 09/21/11 07/22/14 [address] [facility] [address] [place] [address] documented as of this encounter
--- OUTSIDE RECORDS SUMMARY | 2021-10-24 12:08 | XMS_ITS | Encounter Summary ---
:1955 Author Organization [facility] Address [address] [place] [address]. [place] [address] Care Team Providers Name Role Phone Edison Tam MD Primary Care Provider Reason for Visit Reason Comments Nausea, Vomiting, & Diarrhea Abdominal Pain Right side Auth/Cert - Closed Specialty Diagnoses / Procedures Referred By Contact Refer red To Contact Diagnoses Diarrhea Dehydration Vomiting UTI (lower urinary tract infection) [id number] [facility] [address] [place] [address] Phone: Fax: Referral ID Status Reason Start Date Expiration Date Visits Requ ested Visits Authorized Closed 01/22/2012 07/20/2012 Encounter Details Date Type Department Care Team Description 01/21/2012 - Emergency [facility] Moses Thurston MD [address] [address] Dehydration (Primary Dx); 01/22/[address] [place] [address] Moy Champion MD [facility] [place] [address] Vomiting; [place], [place] Diarrhea; [address] UTI (lower urinary tract inf ection) [phone] Social History Tobacco Use Types Packs/Day Years Used Date Former Smoker 1 18 Smokeless Tobacco: Former User Q uit: 09/20/1991 Alcohol Use Standard Drinks/Week Comments No 0 (1 standard drink = 0.6 oz pure alcoho l) Sex Assigned at Date Recorded Not on file documented as of this encounter Last Filed Vital Signs Vital Sign Reading Time Taken Comments Blood Pressure 117/68 01/22/2012 4:17 PM PROJECT CONSTRUCTION MANAGER Pulse 85 01/22/2012 2:00 AM PROJECT CONSTRUCTION MANAGER Temperature 37.2 ??C (99 ??F) 01/22/2012 4:17 PM PROJECT CONSTRUCTION MANAGER Respiratory Rate 18 01/22/2012 4:17 PM PROJECT CONSTRUCTION MANAGER Oxygen Saturation 98% 01/22/2012 12:21 PM PROJECT CONSTRUCTION MANAGER Inhaled Oxygen Concentration - - Weight 61.2 kg (135 lb) 01/21/2012 10:43 AM PROJECT CONSTRUCTION MANAGER Height 157.5 cm (5' 2) 01/21/2012 10:43 AM PROJECT CONSTRUCTION MANAGER Body Mass Index 24.69 01/21/2012 10:43 AM PROJECT CONSTRUCTION MANAGER documented in this encounter Discharge Summaries Elizabeth Pemberton PA-C - 01/22/2012 5:25 PM CST Physician Discharge Summary Patient ID: Maria E Norman [id number] 56 year old 1955 Admit date: 01/21/2012 Discharge date and time: 01/22/2012 Admitting Physician: Moy Champion MD Discharge Physician: Dr. Champion Admission Diagnoses: Diarrhea [787.91] Dehydration [276.51] Vomiting [787.03] UTI (lower urinary tract infection) [599.0] [id number] Discharge Diagnoses: UTI, crohn's disease. Admission Condition: fair Discharged Condition: good Indication for Admission: dehydration Hospital Course: Maria E Norman is a 56 year old female with history of Crohn's disease, Lupus, andHashimoto's Disease who presents via ambulance for evaluation of acute onset of nausea, vomiting anddiarrhea beginning this morning. She states she has gallstones, and complains of right-sided abdominal pain near her gallbladder in the RUQ of her abdomen. Her pain was initially severe, but is now a 2/10. She states she has been vomiting yellow colored emesis. She had about 20 episodes of vomiting. Her diarrhea is brown and watery. When asked about how much diarrhea she had today, she replied a lot. She complains of chills. No fever. No shortness of breath. She has been near her nephew who has been sick with stomach flu type symptoms, but he is now feeling better. Past abdominal surgical historyis significant for bowel resections, appendectomy, . She denies recent antibiotic use. Denies lightheadedness or dizziness. Did have a headache in the ED, but this has improved with Tylenol use. Has urinary symptoms of increased frequency. Denies dysuria or hematuria. Has history of two fistulas (rectovaginal and urethral vaginal, denies any repairs to these). Denies frequent UTIs. Has chronic back pain, no increase of this pain from baseline today. In the ED her vital signs showed heart rate in the 100's. She was febrile with a temperature of 100.6F. All other vital signs were stable. Labs showed Na 146, K 3.8, otherwise CMP unremarkable. WBC 12.8, Hgb 17.0, UA showed a large leuk est., WBC 19, trace blood. CT of abdomen and pelvis did not show a bowel obstruction or any cause for the patient's abdominal pain. She received 2 L NS IVF bolus, 1000 mg PO Tylenol, 1 g Rocephin, Phenergan, and Zofran. She was subsequently admitted to the observation unit for pain control, anti emetics, IVF rehydration, and antibiotics. Pt didn't sleep much overnight due to abdominal pain and nausea. In the morning Zofran was increasedto 8 mg and eventually Phenergan was administered. Pt felt much better after receiving Phenergan. [id number] pt was able to tolerate [place] clear soda and ate lunch. Pt was discharged to home with a prescription for Cipro 250 mg BID x 3 days. GI consult was placed when pt was admitted to the Observation Unit to help differentiate a complication UTI / Gastroenteritis from a Crohn's flare. GI consult service examined pt and did not find any fistula's in the rectal area. Base off of pt's lack of follow up with [facility] and her current symptoms and lab work GI service did not feel this was an acute flare of Crohn's. Family friend stopped by and expressed great concern for pt to discharge to home. Family friend reports pt has a significant history of Narcotic abuse, depression and other mental illness. Friend recommended that providers call sister who is patient's power of state's attorney at [phone]. Called and spoke with Sister, Joan. Joan reports that pt needs to be admitted for narcotic addiction. Pt was given prescriptions for Oxycodone at time of discharge from the hospital in Nov and recently after a tooth procedure. Sister reports that days when Maria E doesn't get medications she will be incapacitated. Days when she does get medications she will be overly energetic and excitable. Spoke with pt about any possible depression or narcotic abuse she might be dealing with right now. Pt denies any current issues with narcotic abuse. Pt states she used to have issues but no longer does. Pt reports she has struggled with depression but is seeing a psychiatrist Dr. Morrison. spiritual care coordinator was contacted tosee if pt can receive a wellness check at home. Because pt is not home-bound she does not qualify for home care services. Asked pt again if she felt safe to discharge to home by herself and she said she felt safe. Pt was discharged to home with a prescription for Cipro 250 mg BID x 3 days for UTI treatment. Consults: none Significant Diagnostic Studies: Results for [...] Ketones Urine 5 (*) NEG mg/dL Specific Hiram Urine 1.014 1.003 - 1.035 Blood Urine [...] routinely done Micro Report Status FINAL 01/22/2012 LACTIC ACID WHOLE BLOOD Component Value Range [...] T4 Free 1.05 0.70 - 1.85 ng/dL Treatments: IV hydration Discharge Exam: General appearance: alert and cooperative Head: Normocephalic, without obvious abnormality Neck: no adenopathy Lungs: clear to auscultation bilaterally Heart: regular rate and rhythm, S1, S2 normal, no murmur, click, rub or gallop Abdomen: soft, mildly tender in RLQ, non distended. Disposition: home Patient Instructions: Current Discharge Medication List START taking these medications Details ciprofloxacin (CIPRO) 250 MG tablet Take 1 tablet by mouth 2 times daily. Qty: 6 tablet, Refills: 0 Associated Diagnoses: UTI (lower urinary tract infection) CONTINUE these medications which have NOT CHANGED Details venlafaxine (EFFEXOR-XR) 75 MG 24 hr capsule Take 150 mg by mouth daily. PREDNISONE PO Take 10 mg by mouth daily. multivitamin, therapeutic with minerals (THERA-VIT-M) TABS Take 1 tablet by mouth daily. buprenorphine HCl-naloxone HCl (SUBOXONE) 8-[address] 0.5 tablets under the tongue 2 times daily as needed. pain buPROPion (WELLBUTRIN SR) 150 MG 12 hr tablet Take 150 mg by mouth 2 times daily. AM and 1 PM cyanocobalamin 1000 MCG/ML injection Inject 1 mL into the muscle every 30 days. Potassium Chloride Nancy CR (K-DUR PO) Take 16 mEq by mouth 3 times daily. UNABLE TO FIND nightly as needed. MEDICATION NAME: Chantale Silver ergocalciferol (ERGOCALCIFEROL) 83581 UNIT capsule One capsule twice weekly - and Qty: 8 capsule, Refills: 0 levothyroxine (LEVOTHROID) 75 MCG tablet Take 75 mcg by mouth daily. propranolol (INDERAL) 20 MG tablet Take 20 [...] 1 tablet by mouth 2 times daily. zoledronic Acid (RECLAST) 5 MG/100ML SOLN Inject 5 mg into the vein. Annually in the beginning of the year guaiFENesin (MUCINEX) 600 MG 12 hr tablet Take 600 mg by mouth 2 times daily as needed. Menthol, Topical Analgesic, (ICY HOT EX) Externally apply topically. Patient uses Gel, Cream and Patch PRN Acetaminophen (TYLENOL EXTRA STRENGTH PO) Take 2 tablets by mouth 2 times daily as needed. Activity: activity as tolerated Diet: low fat, low cholesterol diet and encourage fluids Follow-up with Primary Care Provider in 3 days. Signed: Elizabeth Pemberton 01/22/2012 5:25 PM ECT CONSTRUCTION MANAGER documented in this encounter Discharge Instructions Discharge InstructionsElizabeth Pemberton PA-C - 01/22/2012 5:20 PM PROJECT CONSTRUCTION MANAGER Maria E~ -An appointment was made for you to see Dr. Tam on Saturday, January 27 at 9:10am. This is forfollow up of your current hospitalization. -Your were found to have a mild Urinary Tract Infection. A prescription for Ciprofloxacin was sent to [facility]. - Please make an appointment to see your psychiatrist within 1 week of discharge from the hospital. - If you have trouble with narcotic addiction in the future please feel free to call chemical dependency at: [phone] ECT CONSTRUCTION MANAGER documented in this encounter Medications at [...] 24 hr tablet every morning. buprenorphine Place 0.5 tablets 0 03/11 HCl-naloxone HCl under the tongue 2 (SUBOXONE) 8-2 MG FILM times daily as needed. pain buPROPion (WELLBUTRIN SR) Take 150 mg by mouth 0 09/08/2012 150 MG 12 hr tablet 2 times daily. AM and 1 PM ciprofloxacin (CIPRO) 250 Take 1 tablet by 6 tablet 0 01/0902/04/2012 MG tabletIndications: UTI mouth 2 times daily. (lower urinary tract infection) cyanocobalamin 1000 Inject 1 mL into the 0 04/27/2013 MCG/ML injection muscle every 30 days. ergocalciferol One capsule twice 8 capsule 0 09/26/2011 (ERGOCALCIFEROL) 88746 weekly - and UNIT capsule levothyroxine Take 75 mcg by mouth 0 1 04/05/2011 (LEVOTHROID) 75 MCG daily. tablet Loperamide HCl (IMODIUM Take by mouth. 8-10 tablets twice daily 0 04/22/2012 A-D PO) multivitamin, therapeutic Take 1 tablet by 0 04/22/2012 with minerals mouth daily. (THERA-VIT-M) TABS Potassium Chloride Nancy Take 16 [...] as needed. 0 MEDICATION NAME: Chantale Silver venlafaxine (EFFEXOR-XR) Take 150 mg by mouth 0 03/27/2012 75 MG 24 hr capsule daily. zoledronic Acid (RECLAST) Inject 5 mg into the 0 06/05/2012 5 MG/100ML SOLN vein. Annually in the beginning of the year documented as of this encounter Progress Notes Connie Schmidt RN - 01/22/2012 5:21 PM CST Discharged to: Home Via: automobile Accompanied by: family Teaching: See dc instructions Next Clinic Appointment: See dc orders Report called/faxed: Faxed to meeting planner and Primary Care Physician Local address and telephone number: See face sheet ECT CONSTRUCTION MANAGER Moy Champion MD - 01/22/2012 1:52 PM CST Interviewed and examined. Feeling better today. Nausea and diarrhea resolved. Abdomen pain improved. Vitals stable. No furtherfever since last night. Still mildly tender in RLQ on palpation. Less firm than last evening. Would like to be discharged this afternoon. BP 95/46 Pulse 85 Temp(Src) 98.4 ??F (36.9 ??C) (Oral) Resp 17 Ht 1.575 m (5' 2) Wt 61.236 kg (135 lb) BMI 24.69 kg/m2 SpO2 98% Labs/Imaging Results for orders placed during the hospital encounter of 01/21/12 (from the past 24 hour(s)) ROUTINE UA WITH MICROSCOPIC REFLEX TO CULTURE Component Value Range Color Urine Yellow Appearance Urine Clear Glucose Urine Negative NEG mg/dL Bilirubin Urine Negative NEG Ketones Urine 5 (*) NEG mg/dL Specific Hiram Urine 1.014 1.003 - 1.035 Blood Urine [...] /HPF Mucous Urine Present (*) NEG /LPF URINE CULTURE Component Value Range Specimen Description Midstream Urine Special Requests Specimen received in preservative Culture Micro Culture in progress Micro Report Status Pending CT ABDOMEN PELVIS W CONTRAST Component Value [...] initial interpretation and agree with the findings. LACTIC ACID WHOLE BLOOD Component Value Range [...] T4 Free 1.05 0.70 - 1.85 ng/dL Impression: 1. Probable UTI. Has history of UTI and retrovesical and rectovaginal fistula repairs in past. 2. Possible gastroenteritis vs Crohn's flare. Symptoms improving without change in treatment. 3. Chronic steroid use, some of symptoms may have been due to adrenal suppression and inability to produce stress burst of cortisol. Plan: 1. Continue Abx for UTI. Await result of urine culture. 2. GI consult pending. 3. Stool culture pending. 4. Will need follow up with [facility]. 5. If continuing to feel well, plan for DC to home this afternoon. Moy Champion ECT CONSTRUCTION MANAGER Moy Champion MD - 01/21/2012 11:34 PM CST Patient interviewed and examine. Labs, imaging, flow sheets and chart notes reviewed. Ms Norman has history of Crohn's disease since the 1970s and has had several surgeries for this. Her Crohn's disease has been fairly quiet recently on 10 mg prednisone. This morning she developed right mid abdomen pain associated with nausea, vomiting, chills and diarrhea. Bilious emesis and watery diarrhea with no blood. She is not having flank pain or urinary difficulty. No unusual foods. No travel. She has chronic nasal congestion. No cough, sputum, shortness of breath. No chest pain. Abdomen pain has somewhat improved over the course of the day. No recent antibiotics other than in ED today. Past Medical History Diagnosis Date ??? Crohn's [...] urethra vag- no hx uti's ??? Colonoscopy FH: Rheumatoid arthritis, Sjogren's, lupus. 10 point ROS of systems including Constitutional, Eyes, Respiratory, Cardiovascular, Gastroenterology, Genitourinary, Integumentary, Muscularskeletal, Psychiatric were all negative except for pertinentpositives noted in my HPI. Physical exam. Middle aged female with flushed face, mildly cushingoid, in NAD. BP 92/53 Pulse 90 Temp(Src) 98.4 ??F (36.9 ??C) (Oral) Resp 18 Ht 1.575 m (5' 2) Wt 61.236 kg (135 lb) BMI 24.69 kg/m2 SpO2 94% HEENT: NC/AT PERRLA. EOMI Neck no mass or bruit. Lungs clear to auscultation. Cardiac: RRR S1/S2 no murmurs. Abdomen: Mod tender RLQ. Mild guarding, no rebound. Extremities: No edema. Neurol: Alert and oriented. CN/motor/reflexes intact. Psych: Normal mood and affect. Has been tearful earlier. Skin scab from biosy left hand. Labs/Imaging Results for orders placed during the hospital encounter of 01/21/12 (from the past 24 hour(s)) CBC WITH PLATELETS DIFFERENTIAL Component Value Range [...] Ketones Urine 5 (*) NEG mg/dL Specific Hiram Urine 1.014 1.003 - 1.035 Blood Urine [...] /HPF Mucous Urine Present (*) NEG /LPF Impression: 1. Nausea, vomiting, diarrhea, abdomen pain, fever. Differential includes viral gastroenteritis, bacterial gastroenteritis, giardia, c diff Crohn's flare. 2. Possible UTI. Minimal symptoms. Could be bladder infection, or potentially inflammatory pyuria related to inflammatory process in RLQ. 3. Mildly immunosuppressed and adrenally suppressed with history of fpc prednisone. Plan: Continue ceftriaxone pending urine culture. Check stool culture, c diff and O and P. Blood culture if spikes fever again. (candidate for listeriosis,pyelonephritis,and Crohn's associated bacteremia). Stress dose hydrocorisone IV. 50 mg q 6hr for present. GI consult tomorrow. Continue IV hydration. Transfer to inpatient status if develops hypotension or signs of SIRS. Moy Champion MD ECT CONSTRUCTION MANAGER documented in this encounter H&P Notes oZnia Fernandez NP - 01/21/2012 7:34 PM CST Images from the original note were not included. Maria E Norman is a 56 year old female with history of Crohn's disease, Lupus, and Yossi's Disease who presents via ambulance for evaluation of acute onset of nausea, vomiting and diarrhea beginning this morning. She states she has gallstones, and complains of right-sided abdominal pain near her gallbladder in the RUQ of her abdomen. Her pain was initially severe, but is now a 2/10. She states she has been vomiting yellow colored emesis. She had about 20 episodes of vomiting. Her diarrhea is brown and watery. When asked about how much diarrhea she had today, she replied a lot. She complains of chills. No fever. No shortness of breath. She has been near her nephew who has been sick with stomach flu type symptoms, but he is now feeling better. Past abdominal surgical history is significant for bowel resections, appendectomy, . She denies recent antibiotic use. Denies lightheadedness or dizziness. Did have a headache in the ED, but this has improved with Tylenol use. Has urinary symptoms ofincreased frequency. Denies dysuria or hematuria. Has history of two fistulas (rectovaginal and urethral vaginal, denies any repairs to these). Denies frequent UTIs. Has chronic back pain, no increase of this pain from baseline today. In the ED her vital signs showed heart rate in the 100's. She was febrile with a temperature of 100.6F. All other vital signs were stable. Labs showed Na 146, K 3.8, otherwise CMP unremarkable. WBC 12.8, Hgb 17.0, UA showed a large leuk est., WBC 19, trace blood. CT of abdomen and pelvis did not show a bowel obstruction or any cause for the patient's abdominal pain. She received 2 L NS IVF bolus, 1000 mg PO Tylenol, 1 g Rocephin, Phenergan, and Zofran. She was subsequently admitted to the observation unit for pain control, anti emetics, IVF rehydration, and antibiotics. On admission to the observation unit the patient stated that her headache was improved. She continued to complain of nausea and some RUQ abdominal pain. Verified the above HPI. She did not take any of her home medications today. Past Medical History Diagnosis Date ??? Crohn's 1977 on prednisone chronically ??? Osteoporosis ??? Fracture of wrist fall ??? Narcotic dependence, in remission rehab ??? Nicotine dependence in remission ??? Menarche 9 y.o menapuase age 40 was on prednisone ??? Yossi's disease ??? Fibromyalgia ??? Lupus has had positive flare ups ??? Bunion ??? Arthritis Past Surgical History Procedure Date ??? Appendectomy open 1985 ??? Small bowel resection 1985 colon and distal ilium ??? Sigmoidectomy left ovary removal ??? Back surgery 2008 L4-L5 laminectomy ??? Release carpal tunnel right ??? Left ovary removal was removed during a resection ??? Back surgery 2010 L5 ??? C close urethrovaginal fistula two fistulas one rectovag one urethra vag- no hx uti's History Social History ??? Marital Status: Single [...] on file Social History Narrative Moved to [place] [facility] to live with Twin sister Joan [place]. Family History Problem Relation Age of Onset ??? Arthritis Sister Sjogrens twin sister ??? Neurological Sister Multiple sclerosis older sister ??? Cancer Mother 68 Lung ??? Endocrine Disease Mother Hashimotos ??? Endocrine Disease Sister Hashimotos both sisters Allergies: Allergies Allergen Reactions ??? Humira Rash ??? Remicade (Infliximab Injection) Doesn't work for pt ??? Sulfa Drugs Profound lethargy ??? Penicillin G Rash Childhood reaction ??? Tramadol Itching and Rash Outpatient Prescriptions Marked as Taking for the 01/21/12 encounter (Hospital Encounter): venlafaxine (EFFEXOR-XR) 75 MG 24 hr capsule Take 150 mg by mouth daily. Disp: Rfl: PREDNISONE PO Take 10 mg by mouth daily. Disp: Rfl: multivitamin, therapeutic with minerals (THERA-VIT-M) TABS Take 1 tablet by mouth daily. Disp: Rfl: buPROPion (WELLBUTRIN SR) 150 MG 12 hr tablet Take 150 mg by mouth 2 times daily. AM and 1 PM Disp: Rfl: cyanocobalamin 1000 MCG/ML injection Inject 1 mL into the muscle every 30 days. Disp: Rfl: Potassium Chloride Nancy CR (K-DUR PO) Take 16 mEq by mouth 3 times daily. Disp: Rfl: ergocalciferol (ERGOCALCIFEROL) 56554 UNIT capsule One capsule twice weekly - and Disp: 8 capsule Rfl: 0 levothyroxine (LEVOTHROID) 75 MCG tablet Take by mouth daily. Disp: Rfl: propranolol (INDERAL) 20 MG tablet Take 20 mg by mouth daily. Disp: Rfl: ALPRAZolam (XANAX XR) 2 MG 24 hr tablet Take 2 mg by mouth every morning. Disp: Rfl: rOPINIRole (REQUIP) 5 MG tablet Take 5 mg by mouth 2 times daily. Disp: Rfl: Loperamide HCl (IMODIUM A-D PO) Take by mouth. 8-10 tablets twice daily Disp: Rfl: Calcium Citrate-Vitamin D (CITRACAL + D PO) Take 2 tablets by mouth daily. Disp: Rfl: Active Problems: Pyelonephritis Blood pressure 97/52, pulse 103, temperature 101 ??F (38.3 ??C), temperature source Oral, resp. rate20, height 1.575 m (5' 2), weight 61.236 kg (135 lb), SpO2 90.00%. Results for orders placed during the hospital [...] Ketones Urine 5 (*) NEG mg/dL Specific Hiram Urine 1.014 1.003 - 1.035 Blood Urine [...] /HPF Mucous Urine Present (*) NEG /LPF Review of Systems Constitutional: Positive for chills. Negative for fever, weight loss, malaise/fatigue and diaphoresis. HENT: Negative for hearing loss, congestion, sore throat and neck pain. Eyes: Negative for blurred vision and double vision. Respiratory: Negative for cough, hemoptysis, sputum production, shortness of breath, wheezing and stridor. Cardiovascular: Negative for chest pain, palpitations and leg swelling. Gastrointestinal: Positive for nausea, vomiting, abdominal pain and diarrhea. Negative for heartburn, constipation, blood in stool and melena. Genitourinary: Positive for frequency. Negative for dysuria, urgency, hematuria and flank pain. Musculoskeletal: Negative for myalgias, back pain, joint pain and falls. Chronic back pain (at baseline) Skin: Negative for itching and rash. Neurological: Positive for headaches. Negative for dizziness, tingling, tremors, sensory change and weakness. Psychiatric/Behavioral: Negative. Physical Exam Constitutional: She is oriented to person, place, and time. She appears well- developed and well-nourished. No distress. HENT: Head: Normocephalic and atraumatic. Mouth/Throat: Oropharynx is clear and moist. Eyes: Conjunctivae and EOM are normal. Pupils are equal, round, and reactive to light. Neck: Normal range of motion. Neck supple. Cardiovascular: Normal rate, regular rhythm, normal heart sounds and intact distal pulses. Exam reveals no gallop and no friction rub. No murmur heard. Pulmonary/Chest: Effort normal and breath sounds normal. No stridor. No respiratory distress. She has no wheezes. She has no rales. She exhibits no tenderness. Abdominal: Soft. Bowel sounds are normal. There is tenderness in the right upper quadrant. There is no rebound, no guarding and no CVA tenderness. Musculoskeletal: Normal range of motion. She exhibits no edema and no tenderness. Neurological: She is alert and oriented to person, place, and time. Skin: Skin is warm and dry. Rash noted. She is not diaphoretic. No erythema. No pallor. Psychiatric: She has a normal mood and affect. Her behavior is normal. Judgment and thought content normal. Assessment/Plan: 1. Pyelonephritis: 56 year old female with PMH of Crohn's disease, SLE, and rectovaginal and urethral vaginal fistulas presenting with 12 hour duration of acute onset of nausea, vomiting, diarrhea, andRUQ pain. Has elevated WBC and elevated Hgb likely due to hemoconcentration due to dehydration. UA shows infection, urine culture pending. CT of abdomen and pelvis unremarkable on initial read. Will admit to the observation unit given on going pain, nausea, and need for further IVF rehydration. Likelypyelonephritis given slightly elevated WBC, pain, tachycardia, fever, UA results. Received 1 gram Rocephin in the ED. Will start IV Cipro in the am given patient's allergy to PCNs. 2. Nausea, vomiting, dehydration: Patient is likely dehydrated given frequency of diarrhea and vomiting, elevated Hgb, and lower BP, and tachycardia. 1L NS bolus now, then IVF at 125 ml/hour, anti emetics prn, tylenol for pain/fever. Clear liquid diet for now. 3. Facial rash: Has allergy to PCNs and was given Rocephin in the ED. Could be an allergic reaction.No facial edema, no SOB or change in voice, no itchiness. Will continue to monitor overnight. 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 She was found to have positive urinalysis and was admitted for observation. Abdominal pain and Diarrhea: Achy constant diffuse abdominal pain mostly located in the epigastric and right upper and lower quadrant area. She has been fairly controlled on prednisone and the last chron's flare was very long time ago. She said that this quality of pain is very different from the crampy intermittent pain of her Chron's disease. The pain doesn't radiate to the back and she doesn't recall any urinary symptoms except for urinary frequency in the past few months. She was given a stressdose of steroids in the hospital, given 1 dose of ceftriaxone, and was started on ciprofloxacin as apresumptive treatment for pyelonephritis. She did'nt have any bowel movement or vomiting since she fi rst came. All the evidence we have for her Chron's disease is derived from a [facility] report and verbalwithout any surgical, pathologic, or colonoscopic report. She had no evidence of obstruction on CT scan. - Diarrhea can be secondary to multiple causes: 1) short bowel and extensive colonic resection 2) bile salt diarrhea 2/2 ileal resection 3) bacterial overgrowth 2/2 multiple resections (blind loops, crypt hyperplasia, loss of IC valve) 4) Infectious diarrhea - Abdominal pain: Active Chron's disease though there is no convincing evidence. The pain has mostlysubsided during her admission and she seems to be doing fine today. She got a stress dose of steroids in the ED. No evidence of luisa-anal fistulas on examination. 1) Check stool for ova and parasites, SSCE, C. Diff 2) Do ESR. CRP 3) Consider doing a capsule endoscopy and colonoscopy as an outpatient to check disease activity andplan on treatment accordingly. 4) Keep her on prednisone 10 mg and follow up with her Window Dresser at [facility] , patient could also follow up as an outpatient at [facility]. 5) IV hydration, pain management, antiemetics Patient seen and examined with the GI resident and fellow. I agree with the assessment and plan as discussed above. Pratik Esqueda MD Reason for consult: Abdominal pain. Consult requested by: Zonia Fernandez, POLICY INTERN- Chief Complaint: Abdominal pain, diarrhea of 2 days duration This is a 56 yo lady with presumed complicated hx of chron's disease since the age of 13 on prednisone maintenance s/p multiple bowel resections (extensive terminal ileal resection, right hemicolectomy, and sigmoidectomy between 1975 and 1977) with hx of multiple small bowel obstructions requiring hospitalization but not surgery with the last obstruction in 2007. She has been fairly well controlled on daily 10mg of prednisone. She has been [facility] She has a hx of chronic luisa-anal leaking fistulas and she has undergone fistula surgery and[facility]on placement at [facility]. She is currently presenting with 2 days hx of epigastric and right sided abdominal pain that is achy and constant in nature associated with multiple episodes of nausea, non bilious vomiting, and severe bouts of watery diarrhea up to 20 BM's per day for the past 2 days, along with subjective low grade fever. The symptoms all started once she moved alone to a new house under a lot of stress after she was used to live with her sister and other family members. The pain is constant, not crampy, and unlike her prior chron's flares which were more characterized by crampy intense abdominal pain. She reported being compliant with her medications, on chronic oral potassium supplements. She doesn't have any dysuria but reported urinary frequency over the past 5 months. No flank painand no hx of urinary tract infections. She is still having pneumaturia and fecaluria at times. She tried multiple treatments for chron's disease in the past. She was admitted for observation and was given one dose of ceftriaxone in the ED and was treated with IV hydration, twice daily IV ciprofloxacinfor presumed pyelonephritis and CT scan of her abdomen didn't show any acute cause of her abdominal pain. She stopped having any nausea, vomiting, or diarrhea after admission. Her diarrhea is usually limited to 1-2 bowel movement per day on imodium. She has no recent antibiotic use. She has been seen by gastroenterology in July 2011 and she was supposed to start on methotrexate which was recalled by the pharmacy (per patient) , and she was scheduled for colonoscopy which she didn'tdo due to unexplained reasons. She reported having rash from Humira, and hepatitis from Imuran, and sub optimal response to Remicade. She responds well to Methotrexate but it was stopped in 2008. Her last colonoscopy was in 2008 which was negative for malignancy as per patient. She is an ex-smoker. Past Medical History: Past Medical History Diagnosis [...] neoplasm hand skin cancer (left) Past Surgical History: Past Surgical History Procedure [...] urethra vag- no hx uti's ??? Colonoscopy Social History: History Substance Use Topics ??? [...] ??? Endocrine Disease Sister Hashimotos both sisters Allergies: Allergies Allergen Reactions ??? Humira Rash ??? Remicade (Infliximab Injection) Doesn't work for pt ??? Sulfa Drugs Profound lethargy ??? Penicillin G Rash Childhood reaction ??? Tramadol Itching and Rash Medications: Prescriptions prior to admission Medication Sig Dispense Refill ??? venlafaxine (EFFEXOR-XR) 75 MG 24 hr capsule Take 150 mg by mouth daily. ??? PREDNISONE PO Take 10 mg by mouth daily. ??? multivitamin, therapeutic with minerals (THERA-VIT-M) TABS Take 1 tablet by mouth daily. ??? buprenorphine HCl-naloxone HCl (SUBOXONE) 8-[address] 0.5 tablets under the tongue 2 timesdaily as needed. pain ??? buPROPion (WELLBUTRIN SR) 150 MG 12 hr tablet Take 150 mg by mouth 2 times daily. AM and 1 PM ??? cyanocobalamin 1000 MCG/ML injection Inject 1 mL into the muscle every 30 days. ??? Potassium Chloride Nancy CR (K-DUR PO) Take 16 mEq by mouth 3 times daily. ??? UNABLE TO FIND nightly as needed. MEDICATION NAME: Calms Forte ??? ergocalciferol (ERGOCALCIFEROL) 08183 UNIT capsule One capsule twice weekly - and 8 capsule 0 ??? levothyroxine (LEVOTHROID) 75 MCG tablet Take 75 mcg by mouth daily. ??? propranolol (INDERAL) 20 MG tablet Take [...] tablet by mouth 2 times daily. ??? zoledronic Acid (RECLAST) 5 MG/100ML SOLN Inject 5 mg into the vein. Annually in the beginning of the year ??? guaiFENesin (MUCINEX) 600 MG 12 hr tablet Take 600 mg by mouth 2 times daily as needed. ??? Menthol, Topical Analgesic, (ICY HOT EX) Externally apply topically. Patient uses Gel, Cream andPatch PRN ??? Acetaminophen (TYLENOL EXTRA STRENGTH PO) Take 2 tablets by mouth 2 times daily as needed. Physical Exam (Resident / Clinician): Temp: [97.8 ??F (36.6 ??C)-101 ??F (38.3 ??C)] 99 ??F (37.2 ??C) Pulse: [84-104] 85 Heart Rate: [84-117] 117 Resp: [17-20] 18 BP: (92-120)/(46-72) 106/59 mmHg SpO2: [89 %-99 %] 98 % GA: in NAD HEENT: wet oral mucosa, clear oropharynx, no aphthous ulcers, mild malar rash Heart: Regular rate and rhythm, no murmurs Lungs: clear to auscultation bilaterally Abdomen: multiple surgical scars, normoactive bowel sounds, tenderness along the epigastric, RUQ, and RLQ area. No shifting dullness, no suprapubic or CVA tenderness Extremities: no edema GI/: luisa-rectal erythema without evidence of enterocutaneous fistulas, vaginal and urehtral fistulas were not visualized. Data: ROUTINE ICU LABS (Last four results) CMP Lab 01/22/12 0641 01/21/12 1219 NA 139 146* POTASSIUM 3.7 3.8 CHLORIDE 107 109 CO2 24 25 ANIONGAP 8 12 GLC 95 93 BUN 9 15 CR 0.70 0.73 GFRESTIMATED 86 82 GFRESTBLACK >90 >90 DAVID 7.1* 8.4* MAG -- -- PHOS -- -- PROTTOTAL -- 6.5* ALBUMIN -- 3.8 BILITOTAL -- 0.5 ALKPHOS -- 75 AST -- 43 ALT -- 27 CBC Lab 01/22/12 0641 01/21/12 1219 WBC 5.9 12.8* RBC 4.71 5.60* HGB 14.2 17.0* HCT 44.4 52.3* MCV 94 93 MCH 30.1 30.4 MCHC 32.0 32.5 RDW 13.8 13.6 PLT 142* 166 CT abdomen: There is a 0.8 cm cyst in the interpolar region of the right kidney. Two splenules visualized adjacent to the splenic hilum. Spleen, pancreas, gallbladder, and liver areunremarkable. The stomach is distended. The uterus and [...] 2. No cause for abdominal pain identified. Maritza [place] PGY-1 MED [phone] Patient seen and examined with the GI resident and fellow. I agree with the assessment and plan as discussed above. Pratik Esqueda MD ECT CONSTRUCTION MANAGER documented in this encounter ED Notes Ning Clarke RN - 01/21/2012 1:15 PM CST Cleaned pt up with assist of one. Pt states she became dizzy after standing 4-5 minutes. ECT CONSTRUCTION MANAGER Moses Thurston MD - 01/21/2012 11:12 AM CST History Chief Complaint Patient presents with ? ? Nausea, Vomiting, & Diarrhea ??? Abdominal Pain Right side HPI Maria E Norman is a 56 year old female with history of Crohn's disease who presents via ambulance for evaluation of acute onset of nausea, vomiting and diarrhea beginning 6 hours ago. She states she has gallstones, and complains of right-sided abdominal pain near her gallbladder. Her pain was initially severe, but is now a 2/10. She states she has been vomiting yellow colored emesis. Her diarrhea isbrown and watery. She complains of chills. No fever. No shortness of breath. She has been near her nephew who has been sick. Past abdominal surgical history is significant for bowel resections. She denies recent antibiotic use. I have reviewed the Medications, Allergies, Past Medical and Surgical History, and Social History inthe [employer] system. Review of Systems Constitutional: Positive for chills. Negative for fever. HENT: Negative for congestion and neck stiffness. Eyes: Negative for redness. Respiratory: Negative for shortness of breath. Cardiovascular: Negative for chest pain. Gastrointestinal: Positive for nausea, vomiting, abdominal pain and diarrhea. Genitourinary: Negative for difficulty urinating. Musculoskeletal: Negative for arthralgias. Skin: Negative for color change. Neurological: Negative for headaches. Psychiatric/Behavioral: Negative for confusion. All other systems reviewed and are negative. Physical Exam BP: 108/68 mmHg Pulse: 91 Temp: 96.3 ??F (35.7 ??C) Resp: 14 Height: 157.5 cm (5' 2) Weight: 61.236 kg (135 lb) SpO2: 95 % Physical Exam Nursing note and vitals reviewed. Constitutional: She appears well-developed and well-nourished. She appears distressed. HENT: Head: Normocephalic and atraumatic. Mouth/Throat: Oropharynx is clear and moist. No oropharyngeal exudate. Eyes: Pupils are equal, round, and reactive to light. No scleral icterus. Neck: Normal range of motion. Neck supple. Cardiovascular: Normal rate, regular rhythm, normal heart sounds and intact distal pulses. Pulmonary/Chest: Effort normal and breath sounds normal. No respiratory distress. Abdominal: Soft. Bowel sounds are normal. There is tenderness (epigastric, diffuse right side). There is no rebound and no guarding. Musculoskeletal: Normal range of motion. She exhibits no edema and no tenderness. Neurological: She is alert. She has normal strength. No cranial nerve deficit. Skin: Skin is warm and dry. No rash noted. She is not diaphoretic. Psychiatric: She has a normal mood and affect. Her behavior is normal. ED Course Procedures Critical Care time: none [facility] Diagnoses: None 11:10am Patient seen and evaluated by Dr. Thurston in room 7. Results for orders placed during the hospital [...] Ketones Urine 5 (*) NEG mg/dL Specific Hiram Urine 1.014 1.003 - 1.035 Blood Urine [...] Mucous Urine Present (*) NEG /LPF CT abdomen/pelvis: Impression: 1. No evidence for bowel obstruction. 2. No cause for abdominal pain identified. Normal saline 2 L IV. Zofran 4 mg IV, phenergan 12.5 mg IV. Vomiting improved. Continues to have diarrhea in the emergency department. Ceftriaxone 1 gram IV. Assessments & Plan (with Medical Decision Making) 56-year-old female with history of Crohn's disease here with one day of vomiting and diarrhea. Her CBC reveals a leukocytosis and elevated hemoglobin most consistent with hemoconcentration. Her CT doesnot reveal any acute intra- abdominal process. Her urinalysis does have white cells and bacteria. Urine culture is pending. Given ceftriaxone in the emergency department for UTI. The patient continues to be symptomatic with diarrhea and fatigue despite ED therapies. Will admit to observation unit for further management. I have reviewed the nursing notes. I have reviewed the findings, diagnosis, plan and need for follow up with the patient. New Prescriptions No medications on file Final diagnoses: Dehydration Vomiting Diarrhea UTI (lower urinary tract infection) INorma, am serving as a trained medical program specialist to document services personally performed by Dr. Karena MD, based on the provider's statements to me. This document has been checked and approved by the attending provider. 01/21/2012 [facility], EMERGENCY DEPARTMENT Moses Thurston MD 01/21/12 1641 ECT CONSTRUCTION MANAGER Ning Clarke RN - 01/21/2012 10:48 AM CST Presents with right sided pain and N/V/D started this morning and has become worse. Last night had pizza . ECT CONSTRUCTION MANAGER Negrita Patton RN - 01/21/2012 10:43 AM CSTBed:ED07
Expected date:
Expected time:
Means of arrival:
Comments:
ECT CONSTRUCTION MANAGER documented in this encounter Miscellaneous Notes Plan of Care - Connie Murphy - 01/22/2012 4:00 PM CST Problem: IP GENERAL POC-ADULT,OB,BEHAVIORAL FVCPM Goal: Discharge Planning (Adult, OB, Behavioral, Peds) ACUTE UNCOMPLICATED PYELONEPHRITIS Tolerating oral antibiotics. NO Tolerating oral pain medications with pain level adequately controlled.YES Tolerating oral liquids.YES ECT CONSTRUCTION MANAGER Plan of Care - Connie Murphy - 01/22/2012 2:00 PM CST Problem: IP GENERAL POC-ADULT,OB,BEHAVIORAL FVCPM Goal: Discharge Planning (Adult, OB, Behavioral, Peds) ACUTE UNCOMPLICATED PYELONEPHRITIS Tolerating oral antibiotics. NO Tolerating oral pain medications with pain level adequately controlled.NO Tolerating oral liquids.NO ECT CONSTRUCTION MANAGER Plan of Care - Connie Murphy - 01/22/2012 12:00 PM CST Problem: IP GENERAL POC-ADULT,OB,BEHAVIORAL FVCPM Goal: Discharge Planning (Adult, OB, Behavioral, Peds) ACUTE UNCOMPLICATED PYELONEPHRITIS Tolerating oral antibiotics. NO Tolerating oral pain medications with pain level adequately controlled.NO Tolerating oral liquids.NO ECT CONSTRUCTION MANAGER Plan of [facility] Connie Murphy - 01/22/2012 10:00 AM CST Problem: IP GENERAL POC-ADULT,OB,BEHAVIORAL FVCPM Goal: Discharge Planning (Adult, OB, Behavioral, Peds) ACUTE UNCOMPLICATED PYELONEPHRITIS Tolerating oral antibiotics. NO Tolerating oral pain medications with pain level adequately controlled.NO Tolerating oral liquids.NO ECT CONSTRUCTION MANAGER Plan of [facility] Connie Murphy - 01/22/2012 8:00 AM CST Problem: IP GENERAL POC-ADULT,OB,BEHAVIORAL FVCPM Goal: Discharge Planning (Adult, OB, Behavioral, Peds) ACUTE UNCOMPLICATED PYELONEPHRITIS Tolerating oral antibiotics. NO Tolerating oral pain medications with pain level adequately controlled.NO Tolerating oral liquids.NO ECT CONSTRUCTION MANAGER Plan of Care - Diana Merritt RN - 01/22/2012 6:15 AM CST Problem: IP GENERAL POC-ADULT,OB,BEHAVIORAL FVCPM Goal: Discharge Planning (Adult, OB, Behavioral, Peds) Outpatient/Observation goals to be met before discharge home: ACUTE UNCOMPLICATED PYELONEPHRITIS Tolerating oral antibiotics. NO Tolerating oral pain medications with pain level adequately controlled.NO Tolerating oral liquids.NO Increasing nausea, gave Zofran 8mg per new order. Also c/o headache, 07/18. Requested Tylenol but changed her mind due to nausea. Dj Instructor gave IV Dilaudid, will reassess effectiveness. No further diarrhea this shift. Used commode x2, voiding strong smelling dark yellow urine. ECT CONSTRUCTION MANAGER Plan of Care - Diana Merritt RN - 01/22/2012 4:10 AM CST Problem: IP GENERAL POC-ADULT,OB,BEHAVIORAL FVCPM Goal: Discharge Planning (Adult, OB, Behavioral, Peds) Outpatient/Observation goals to be met before discharge home: ACUTE UNCOMPLICATED PYELONEPHRITIS Tolerating oral antibiotics. NO Tolerating oral pain medications with pain level adequately controlled.NO Tolerating oral liquids.NO Pt was able to transfer to commode w/ SBA - Afebrile. ECT CONSTRUCTION MANAGER Plan of [facility] - Diana Merritt RN - 01/22/2012 2:10 AM CST Problem: IP GENERAL POC-ADULT,OB,BEHAVIORAL FVCPM Goal: Discharge Planning (Adult, OB, Behavioral, Peds) Outpatient/Observation goals to be met before discharge home: ACUTE UNCOMPLICATED PYELONEPHRITIS Tolerating oral antibiotics. NO Tolerating oral pain medications with pain level adequately controlled.NO Tolerating oral liquids.NO Pt has been resting, has not c/o further nausea. ECT CONSTRUCTION MANAGER Plan of Care - Diana Merritt RN - 01/22/2012 12:15 AM CST Problem: IP GENERAL POC-ADULT,OB,BEHAVIORAL FVCPM Goal: Discharge Planning (Adult, OB, Behavioral, Peds) Outpatient/Observation goals to be met before discharge home: ACUTE UNCOMPLICATED PYELONEPHRITIS Tolerating oral antibiotics. NO Tolerating oral pain medications with pain level adequately controlled.NO Tolerating oral liquids.NO Pt was dry-heaving, also incontinent of stool. ECT CONSTRUCTION MANAGER Pharmacy-Admission Medication History - Elise Mittal RP - 01/21/2012 4:51 PM CST Admission medication history interview status for the 01/21/2012 admission is complete. See [facility] admission navigator for allergy information, prior to admission medications and immunization status. Medication history interview source(s):Patient Medication history resources (including written lists, pill bottles, clinic record):None Medication history source reliability:Good Primary pharmacy: [facility] Pneumococcal and influenza vaccine history documented: yes Changes made to MAINTENANCE DATA ANALYST medication list: Added: multivitamin Deleted: methotrexate and folic acid - patient said reason was because they were recalled. Also deleted omeprazole - she said her physician took her off of this Additional medication history information: She hasn't taken any medications today Medication reconciliation/reorder completed by provider prior to medication history? No Time spent in this activity: 20 min Prior to Admission Medications Medication Last Dose Informant Patient Reported? Taking? venlafaxine (EFFEXOR-XR) 75 MG 24 hr capsule 01/20/2012 at Unknown Yes Yes Take 150 mg by mouth daily. PREDNISONE PO 01/20/2012 at Unknown Yes Yes Take 10 mg by mouth daily. multivitamin, therapeutic with minerals (THERA-VIT-M) TABS 01/20/2012 at Unknown Yes Yes Take 1 tablet by mouth daily. zoledronic Acid (RECLAST) 5 MG/100ML SOLN More than a month at Unknown Yes No Inject 5 mg into the vein. Annually in the beginning of the year buPROPion (WELLBUTRIN SR) 150 MG 12 hr tablet 01/20/2012 at Unknown Yes Yes Take 150 mg by mouth 2 times daily. AM and 1 PM cyanocobalamin 1000 MCG/ML injection Past Month at Unknown Yes Yes Inject 1 mL into the muscle every 30 days. Potassium Chloride Nancy CR (K-DUR PO) 01/20/2012 at Unknown Yes Yes Take 16 mEq by mouth 3 times daily. guaiFENesin (MUCINEX) 600 MG 12 hr tablet Unknown at Unknown Yes No Take 600 mg by mouth 2 times daily as needed. UNABLE TO FIND Yes No nightly as needed. MEDICATION NAME: Calms Forte Menthol, Topical Analgesic, (ICY HOT EX) Unknown at Unknown Yes No Externally apply topically. Patient uses Gel, Cream and Patch PRN Acetaminophen (TYLENOL EXTRA STRENGTH PO) Unknown at Unknown Yes No Take 2 tablets by mouth 2 times daily. For Tooth Extraction Pain ergocalciferol (ERGOCALCIFEROL) 76513 UNIT capsule Past Week at Unknown Yes Yes One capsule twice weekly - and levothyroxine (LEVOTHROID) 75 MCG tablet 01/20/2012 at Unknown Yes Yes Take by mouth daily. glimepiride (AMARYL) 1 MG tablet Yes No Take 1 mg by mouth every morning (before breakfast). propranolol (INDERAL) 20 MG tablet 01/20/2012 at Unknown Yes Yes Take 20 mg by mouth daily. ALPRAZolam (XANAX XR) 2 MG 24 hr tablet 01/20/2012 at Unknown Yes Yes Take 2 mg by mouth every morning. rOPINIRole (REQUIP) 5 MG tablet 01/20/2012 at Unknown Yes Yes Take 5 mg by mouth 2 times daily. Loperamide HCl (IMODIUM A-D PO) 01/20/2012 at Unknown Yes Yes Take by mouth. 8-10 tablets twice daily Calcium Citrate-Vitamin D (CITRACAL + D PO) 01/20/2012 at Unknown Yes Yes Take 2 tablets by mouth daily. ECT CONSTRUCTION MANAGER documented in this encounter Plan of Treatment Not on filedocumented as of this encounter Procedures Procedure Name Priority Date/Time Associated Comments Diagnosis CBC WITH PLATELETS & Routine 01/22/2012 6:41 AM R esults for this DIFFERENTIAL PROJECT CONSTRUCTION MANAGER procedure are i n the results section. TSH WITH FREE T4 Routine 01/22/2012 6:41 AM Resul ts for this REFLEX PROJECT CONSTRUCTION MANAGER procedure are i n the results section. T4 FREE Routine 01/22/2012 6:41 AM Results f or this PROJECT CONSTRUCTION MANAGER procedure are i n the results section. BASIC METABOLIC PANEL Routine 01/22/2012 6:41 AM Results for this PROJECT CONSTRUCTION MANAGER procedure are i n the results section. LACTIC ACID WHOLE STAT 01/22/2012 12:49 Result s for this BLOOD AM PROJECT CONSTRUCTION MANAGER procedure are i n the results section. BLOOD CULTURE STAT 01/22/2012 12:49 Results fo r this AM PROJECT CONSTRUCTION MANAGER procedure are i n the results section. BLOOD CULTURE STAT 01/22/2012 12:48 Results fo r this AM PROJECT CONSTRUCTION MANAGER procedure are i n the results section. CT ABDOMEN PELVIS W STAT 01/21/2012 3:27 PM Re sults for this CONTRAST PROJECT CONSTRUCTION MANAGER procedure are i n the results section. ROUTINE UA WITH STAT 01/21/2012 2:20 PM Result s for this MICROSCOPIC REFLEX TO PROJECT CONSTRUCTION MANAGER proced ure are in CULTURE the results section. URINE CULTURE Routine 01/21/2012 2:20 PM Results for this PROJECT CONSTRUCTION MANAGER procedure are i n the results section. CBC WITH PLATELETS & STAT 01/21/2012 12:19 Res ults for this DIFFERENTIAL PM PROJECT CONSTRUCTION MANAGER procedure are i n the results section. LIPASE STAT 01/21/2012 12:19 Results for this PM PROJECT CONSTRUCTION MANAGER procedure are i n the results section. COMPREHENSIVE STAT 01/21/2012 12:19 Results fo r this METABOLIC PANEL PM PROJECT CONSTRUCTION MANAGER procedure ar e in the results section. documented in this encounter Results T4 free (01/22/2012 6:41 AM PROJECT CONSTRUCTION MANAGER) P athologist Signature T4 Free 1.05 0.70 - 1.85 [facility] ng/dL [facility] Specimen Anatomical Collection Method Collection Time Receive d Time (Source) Location / / Volume Laterality 01/22/2012 6:41 AM 2 6:42 PROJECT CONSTRUCTION MANAGER AM PROJECT CONSTRUCTION MANAGER Zonia Fernandez CULVERT INSTALLER ANIMAL CARE GIVER LAB - BLOOD ORDERABLES Performing Organization Address City/State/ZIP Code Phon e Number [facility] [address] [place] [address] [facility] (ABNORMAL) TSH with free T4 reflex (01/22/2012 6:41 AM PROJECT CONSTRUCTION MANAGER) athologist Signature TSH 0.27 (L) 0.4 - 5.0 [facility] Specimen Anatomical Collection Method Collection Time Receive d Time (Source) Location / / Volume Laterality Blood specimen 01/22/2012 6:41 AM 012 6:42 (specimen) PROJECT CONSTRUCTION MANAGER AM PROJECT CONSTRUCTION MANAGER Zonia Fernandez APRN, CNP LAB - BLOOD ORDERABLES Performing Organization Address City/State/ZIP Code Phon e Number [facility] [address] [place] [address] [facility] LAB[facility] (ABNORMAL) Basic metabolic panel (01/22/2012 6:41 AM PROJECT CONSTRUCTION MANAGER) Analysis Performed At Patho logist Time Signature Sodium 139 133 - 144 [facility] mmol/L [facility] Potassium 3.7 3.4 - 5.3 [facility] mmol/L [facility] Chloride 107 94 - 109 [facility] mmol/L [facility] Carbon Dioxide 24 20 - 32 [facility] mmol/L [facility] Anion Gap 8 6 - 17 [facility] mmol/L [facility] Glucose 95 60 - 99 [facility] mg/dL [facility] [place] [facility] Urea Nitrogen 9 7 - 30 [facility] mg/dL [facility] Creatinine 0.70 0.52 - [facility] 1.04 mg/dL [facility] [place] [facility] GFR Estimate 86 >60 [facility] mL/min/1.7 [facility] GFR Estimate If >90 >60 [facility] Black mL/min/1.7 [place] m2 [facility]AMP[facility] Calcium 7.1 (L) 8.5 - 10.4 [facility] mg/dL [facility] Specimen Anatomical Collection Method Collection Time Receive d Time (Source) Location / / Volume Laterality Blood specimen 01/22/2012 6:41 AM 012 6:42 (specimen) PROJECT CONSTRUCTION MANAGER AM PROJECT CONSTRUCTION MANAGER Zonia Fernandez APRN, CNP LAB - BLOOD ORDERABLES Performing Organization Address City/State/ZIP Code Phon e Number [facility] [address] [place] [address] [facility] (ABNORMAL) CBC with platelets differential (01/22/2012 6:41 AM PROJECT CONSTRUCTION MANAGER) Patholo gist Method Time Signature WBC 5.9 4.0 - [facility] 11.0 [facility] RBC Count 4.71 3.8 - 5.2 [facility] 10e12/L [facility] Hemoglobin 14.2 11.7 - [facility] 15.7 g/dL [facility] [place] Hematocrit 44.4 35.0 - [facility] 47.0 % [facility] MCV 94 78 - 100 [facility] fl [facility] MCH 30.1 26.5 - [facility] 33.0 pg [facility] MCHC 32.0 31.5 - [facility] 36.5 g/dL [facility] RDW 13.8 10.0 - [facility] 15.0 % [facility] Platelet Count 142 (L) 150 - 450 [facility] 10e9/L [facility] Diff Method Automated [facility] Method [facility] % Neutrophils 86.7 (H) 40 - 75 % [facility] LAB[facility] % Lymphocytes 5.4 (L) 20 - 48 % [facility] LAB[facility] % Monocytes 7.3 0 - 12 % [facility] LAB[facility] % Eosinophils 0.2 0 - 6 % [facility] % Basophils 0.2 0 - 2 % [facility] % Immature 0.2 0 - 0.4 % [facility] Granulocytes [facility] Absolute 5.1 1.6 - 8.3 [facility] Neutrophil 10e9/L [facility] Absolute 0.3 (L) 0.8 - 5.3 [facility] Lymphocytes 10e9/L [facility] Absolute 0.4 0.0 - 1.3 [facility] Monocytes 10e9/L [facility] Absolute 0.0 0.0 - 0.7 [facility] Eosinophils 10e9/L [facility] Absolute 0.0 0.0 - 0.2 [facility] Basophils 10e9/L [facility] Abs Immature 0.0 0 - 0.03 [facility] Granulocytes 10e9/L [facility] Specimen Anatomical Collection Method Collection Time Receive d Time (Source) Location / / Volume Laterality Blood specimen 01/22/2012 6:41 AM 012 6:42 (specimen) PROJECT CONSTRUCTION MANAGER AM PROJECT CONSTRUCTION MANAGER Zonia Fernandez CULVERT INSTALLER ANIMAL CARE GIVER LAB - BLOOD ORDERABLES Performing Organization Address City/State/ZIP Code Phon e Number [address] [place] [address] LABS Lactic acid whole blood (01/22/2012 12:49 AM PROJECT CONSTRUCTION MANAGER) P athologist Signature Lactic Acid 0.9 0.7 - 2.1 [facility] mmol/L [place] [facility] Specimen Anatomical Collection Method Collection Time Receive d Time (Source) Location / / Volume Laterality Blood specimen 01/22/2012 12:49 2 (specimen) AM PROJECT CONSTRUCTION MANAGER 12:55 AM PROJECT CONSTRUCTION MANAGER Zonia Fernandez APRN ANIMAL CARE GIVER LAB - BLOOD ORDERABLES Performing Organization Address City/[facility] Code Phon e Number [phone] [place] [address] LABS Blood culture (01/22/2012 12:49 AM PROJECT CONSTRUCTION MANAGER) [facility] gist Method Time Signature Specimen Blood Right [facility] LABS Culture Micro No growth [facility] MICROBIOLOGY Micro Report FINAL [facility] Status [id number] MICROBIOLOGY Specimen Anatomical Collection Method Collection Time Receive d Time (Source) Location / / Volume Laterality Blood specimen 01/22/2012 12:49 2 (specimen) AM PROJECT CONSTRUCTION MANAGER 12:55 AM PROJECT CONSTRUCTION MANAGER Zonia Fernandez APRN, CNP LAB - MICRO GENERAL ORDERABL ES Performing Organization Address City/[facility]/ZIP Code Phon e Number [facility] [address] [place] [address] [facility] LABS [facility] MICROBIOLOGY Blood culture (01/22/2012 12:48 AM PROJECT CONSTRUCTION MANAGER) [facility] gist Method Time Signature Specimen Blood Left [facility] LABS Culture Micro No growth [facility] MICROBIOLOGY Micro Report FINAL [facility] Status [id number] MICROBIOLOGY Specimen Anatomical Collection Method Collection Time Receive d Time (Source) Location / / Volume Laterality Blood specimen 01/22/2012 12:48 2 (specimen) AM PROJECT CONSTRUCTION MANAGER 12:59 AM PROJECT CONSTRUCTION MANAGER Zonia Fernandez APRN, CNP LAB - MICRO GENERAL ORDERABL ES Performing Organization Address City/[facility]/ZIP Code Phon e Number [phone] [place] [address] LABS [facility] MICROBIOLOGY Abd/pelvis CT, IV contrast only TRAUMA / AAA (01/21/2012 3:27 PM PROJECT CONSTRUCTION MANAGER) Anatomical Region Laterality Modality Abdomen/Pelvis, SUBRAD CT BODY, UMP CT ABDOMEN PELVIS Computed Tomography Specimen (Source) Anatomical Collection Method Collection Time Re ceived Time Location / / Volume Laterality 01/21/2012 3:27 PM PROJECT CONSTRUCTION MANAGER Impressions 01/22/2012 10:33 AM PROJECT CONSTRUCTION MANAGER Exam: CT of the abdomen and pelvis, ?? 3:27 PM Comparison: 12/03/2011 Clinical History: Right-sided abdominal pain. Technique: Helical acquisitions of the a bdomen and pelvis were obtained with IV contrast. 81 cc of Isov ue-300 given intravenously. DLP: 867 mGy*centimeter Findings: Small amount of bibasilar dependent atel ectasis. No pleural effusion. Bilateral L5-S1 spondylolysis. Bony rebecca nd visualized in the right iliac bone. There is a 0.8 cm cyst in the interpolar region of the right kidney. Two splenules visualized adjacent to the splenic hilum. Spleen, pancreas, gallbladder, and liver are unr emarkable. The stomach is distended. The uterus and right ovary ar e atrophic. Calcification is visualized in the right ovary. The left ovary is not visualized. There is no free intraperitoneal air or free pelvic fluid. Postsurgical changes of right hemicolect claudia. 1.0 cm lymph node in the right lower quadrant is unchanged. No ot her enlarged lymph nodes are visualized in the abdomen or pelvis. Impression: 1. No evidence for bowel obstruction. 2. No cause for abdominal pain identifie d. I have personally reviewed the image and initial interpretation and agree with the findings. Moses Thurston MD IMG CT ORDERABLES Urine culture (01/21/2012 2:20 PM PROJECT CONSTRUCTION MANAGER) Component Value Ref Test Analysis Performed At [place] Method Time Signature Specimen Midstream Urine [facility] Description MICROBIOLOGY Special Specimen received [facility] Requests in preservative MICROBIOLOGY Culture Micro <10,000 colonies/mL Mixed gram negative and positive fl ora [facility] Multiple species present, probable perineal contamination. MICROBIOLOGY Susceptibility testing not routinely done Micro Report FINAL 01/22/2012 [facility] Status MICROBIOLOGY Specimen Anatomical Collection Method Collection Time Receive d Time (Source) Location / / Volume Laterality 01/21/2012 2:20 PM 2 2:46 PROJECT CONSTRUCTION MANAGER PM PROJECT CONSTRUCTION MANAGER Moses Thurston MD LAB - MICRO GENERAL ORDERABL ES Performing Organization Address City/State/ZIP Code Phon e Number [facility] [address] [place] [address] [facility] MICROBIOLOGY (ABNORMAL) UA with microscopic reflex to culture (01/21/2012 2:20 PM PROJECT CONSTRUCTION MANAGER) [facility] [employer] Method Time Signature Color Urine Yellow [facility] LABS Appearance Urine Clear [facility] LABS Glucose Urine Negative NEG mg/dL [facility] LABS Bilirubin Urine Negative NEG [facility] LABS Ketones Urine 5 (A) NEG mg/dL [facility] LABS Specific Hiram 1.014 1.003 - [facility] Urine 1.035 [facility] LAB[facility] Blood Urine Trace (A) NEG [facility] LABS pH Urine 5.0 5.0 - 7.0 [facility] pH [facility] Protein Albumin Negative NEG mg/dL [facility] Urine [facility] Urobilinogen Normal 0.0 - 2.0 [facility] mg/dL mg/dL [facility] Nitrite Urine Negative NEG [facility] LABS Leukocyte Large (A) NEG [facility] Esterase Urine [facility] Source Midstream [facility] Urine [facility] WBC Urine 19 (H) 0 - 2 [facility] /HPF [facility] RBC Urine 1 0 - 2 [facility] /HPF [facility] Bacteria Urine Few (A) NEG /HPF [facility] Squamous <1 0 - 1 [facility] Epithelial /HPF /HPF [place] Urine [place] [facility] Mucous Urine Present (A) NEG /LPF [facility] LABS Specimen Anatomical Collection Method Collection Time Receive d Time (Source) Location / / Volume Laterality Urine specimen URINE SPECIMEN 01/21/2012 2:20 PM 01/20 2:35 (specimen) OBTAINED BY CLEAN PROJECT CONSTRUCTION MANAGER PM PROJECT CONSTRUCTION MANAGER CATCH PROCEDURE / Unknown Moses Thurston MD LAB - URINE ORDERABLES Performing Organization Address City/State/ZIP [facility] Phon e Number [address] LABS Lipase (01/21/2012 12:19 PM PROJECT CONSTRUCTION MANAGER) P athologist Signature Lipase 165 20 - 250 [facility] U/L [place] [facility] Specimen Anatomical Collection Method Collection Time Receive d Time (Source) Location / / Volume Laterality Blood specimen 01/21/2012 12:19 2 1:02 (specimen) PM PROJECT CONSTRUCTION MANAGER PM PROJECT CONSTRUCTION MANAGER Moses Thurston MD LAB - BLOOD ORDERABLES Performing Organization Address City/State/ZIP [facility] Phon e Number [address] LABS (ABNORMAL) Comprehensive metabolic panel (01/21/2012 12:19 PM PROJECT CONSTRUCTION MANAGER) Patholo gist Method Time Signature Sodium 146 (H) 133 - 144 [facility] mmol/L [facility] LABS Potassium 3.8 3.4 - 5.3 [facility] mmol/L [facility]S Chloride 109 94 - 109 [facility] mmol/L [facility]S Carbon Dioxide 25 20 - 32 [facility] mmol/L [facility] LABS Anion Gap 12 6 - 17 [facility] mmol/L [facility] Glucose 93 60 - 99 [facility] mg/dL [facility] Urea Nitrogen 15 7 - 30 [facility] mg/dL [facility]S Creatinine 0.73 0.52 - [facility] 1.04 mg/dL [facility] [place] GFR Estimate 82 >60 [facility] mL/min/1.7 [place] m2 [facility]AMPUS LABS GFR Estimate If >90 >60 [facility] Black mL/min/1.7 [place] [address] CAMPUS LABS Calcium 8.4 (L) 8.5 - 10.4 [facility] mg/dL [facility] [place] Bilirubin Total 0.5 0.2 - 1.3 [facility] mg/dL [facility] Albumin 3.8 3.3 - 4.9 [facility] g/dL [facility] Protein Total 6.5 (L) 6.8 - 8.8 [facility] g/dL [facility] LABS Alkaline 75 40 - 150 [facility] Phosphatase U/L [facility] LAB[facility] ALT 27 0 - 50 U/L [facility] AST 43 0 - 45 U/L [facility] LAB[facility] Specimen Anatomical Collection Method Collection Time Receive d Time (Source) Location / / Volume Laterality Blood specimen 01/21/2012 12:19 2 1:02 (specimen) PM PROJECT CONSTRUCTION MANAGER PM PROJECT CONSTRUCTION MANAGER Moses Thurston MD LAB - BLOOD ORDERABLES Performing Organization Address City/State/ZIP Code Phon e Number [address] LABS (ABNORMAL) CBC with platelets differential (01/21/2012 12:19 PM PROJECT CONSTRUCTION MANAGER) [facility] gist Method Time Signature WBC 12.8 (H) 4.0 - [facility] 11.0 [place] 10e9/L [place] [facility] RBC Count 5.60 (H) 3.8 - 5.2 [facility] 10e12/L [facility] Hemoglobin 17.0 (H) 11.7 - [facility] 15.7 g/dL [facility] LABS Hematocrit 52.3 (H) 35.0 - [facility] 47.0 % [facility] MCV 93 78 - 100 [facility] fl [facility] MCH 30.4 26.5 - [facility] 33.0 pg [facility] [place] MCHC 32.5 31.5 - [facility] 36.5 g/dL [facility] LAB[facility] RDW 13.6 10.0 - [facility] 15.0 % [facility] Platelet Count 166 150 - 450 [facility] 10e9/L [facility] LABS Diff Method Automated [facility] Method [facility] LABS % Neutrophils 87.1 (H) 40 - 75 % [facility] LABS % Lymphocytes 2.7 (L) 20 - 48 % [facility] LABS % Monocytes 9.1 0 - 12 % [facility] LABS % Eosinophils 0.5 0 - 6 % [facility] LABS % Basophils 0.2 0 - 2 % [facility] LABS % Immature 0.4 0 - 0.4 % [facility] Granulocytes [facility] LABS Absolute 11.2 (H) 1.6 - 8.3 [facility] Neutrophil 10e9/L [facility] LABS Absolute 0.3 (L) 0.8 - 5.3 [facility] Lymphocytes 10e9/L [facility] Absolute 1.2 0.0 - 1.3 [facility] Monocytes 10e9/L [facility] Absolute 0.1 0.0 - 0.7 [facility] Eosinophils 10e9/L [facility] Absolute 0.0 0.0 - 0.2 [facility] Basophils 10e9/L [facility] LAB[facility] Abs Immature 0.1 (H) 0 - 0.03 [facility] Granulocytes 10e9/L [facility] LABS Specimen Anatomical Collection Method Collection Time Receive d Time (Source) Location / / Volume Laterality Blood specimen 01/21/2012 12:19 2 1:02 (specimen) PM PROJECT CONSTRUCTION MANAGER PM PROJECT CONSTRUCTION MANAGER Moses Thurston MD LAB - BLOOD ORDERABLES Performing Organization Address City/State/ZIP Code Phon e Number [facility] [address] [place], [place] [id number] [place] [address] LABS documented in this encounter Visit Diagnoses Diagnosis Dehydration - Primary Vomiting Vomiting alone Diarrhea UTI (lower urinary tract infection) Urinary tract infection, site not specif ied Pyelonephritis Pyelonephritis, unspecified documented in this encounter Administered Medications Inactive Administered Medications - up to 3 most recent administrations Medication Order MAR Action Action Date Dose Rate Site 0.9 % sodium chloride IV Restarted 01/22/2012 11:50 AM 1,000 mLs 12 5 mL/hr solution PROJECT CONSTRUCTION MANAGER at 125 mL/hr, Intravenous, CONTINUOUS, Starting on Sat01/21/12 at 1945, Until Sat01/22/12 at 1434 01/22/2012 8:55 AM PROJECT CONSTRUCTION MANAGER 1,000 mLs 125 mL/hr 01/22/2012 12:50 AM PROJECT CONSTRUCTION MANAGER 1,000 mLs 125 mL/hr acetaminophen (TYLENOL) tablet 1,000 mg Given 01/21/2012 5:16 PM PROJECT CONSTRUCTION MANAGER 1,000 mg 1,000 mg, Oral, ONCE, On Sat01/21/12 at 1710, For 1 dose acetaminophen (TYLENOL) tablet 650 mg Given 01/21/2012 8:16 PM PROJECT CONSTRUCTION MANAGER 650 mg 650 mg, Oral, EVERY 4 HOURS PRN, mild pain, Starting on Sat01/21/12 at 1930, Alternate ibuprofen (if ordered) with acetaminophen Maximum acetaminophen dose from all sources = 75 mg/kg/day not to exceed 4 grams/day. buPROPion (WELLBUTRIN SR) 12 hr tablet 1 50 mg Given 01/22/2012 8:58 AM PROJECT CONSTRUCTION MANAGER 150 mg 150 mg, Oral, 2 TIMES DAILY, First dose on Sat01/22/12 at 0800, DO NOT CRUSH. cefTRIAXone (ROCEPHIN) 1 g vial to attach 01/21/2012 5 :18 PM PROJECT CONSTRUCTION MANAGER 1 g mL/hr to IVPB STAT, 1 g, Intravenous, ONCE, On Sat01/21/12 at 1619, For 1 dose ciprofloxacin (CIPRO) 400 mg in 01/22/2012 10:44 AM CS T 400 mg 200 mL/hr dextrose 5% 200 mL IVPB Routine, 400 mg, Intravenous, EVERY 12 HOURS, First dose on Sat01/21/12 at 2015 01/21/2012 9:12 PM PROJECT CONSTRUCTION MANAGER 400 mg 200 mL/hr hydrocortisone sodium succinate 01/22/2012 1:04 AM PROJECT CONSTRUCTION MANAGER 50 mg mL/hr (Solu-CORTEF) injection 50 mg 50 mg, Intravenous, ONCE, On Sat01/21/12 at 2345, For 1 dose hydrocortisone sodium succinate 01/22/2012 2:06 PM PROJECT CONSTRUCTION MANAGER 50 mg 1 mL/hr (Solu-CORTEF) injection 50 mg 50 mg, Intravenous, EVERY 6 HOURS, First dose on Sat01/22/12 at 0700 01/22/2012 8:35 AM PROJECT CONSTRUCTION MANAGER 50 mg 1 mL/hr HYDROmorphone (DILAUDID) injection 0.2-0 .4 mg Given 01/22/2012 6:23 AM PROJECT CONSTRUCTION MANAGER 0.2 mg 0.2-0.4 mg, Intravenous, EVERY 2 HOURS PRN, moderate to severe pain, Starting on Sat01/22/12 at 0607 iopamidol (ISOVUE-300) IV solution 61% 100 Given 01/21/2012 3:26 PM PROJECT CONSTRUCTION MANAGER 500 mLs mL 100 mL, Intravenous, ONCE, On Sat01/21/12 at 1429, For 1 dose levothyroxine (SYNTHROID, LEVOTHROID) tablet Given 6:22 AM PROJECT CONSTRUCTION MANAGER 75 mcg 75 mcg 75 mcg, Oral, DAILY, First dose on Sat01/22/12 at 0700 loperamide (IMODIUM) capsule 2 mg Given 01/21/2012 10:20 PM PROJECT CONSTRUCTION MANAGER 2 mg 2 mg, Oral, 4 TIMES DAILY PRN, diarrhea, Starting on Sat01/21/12 at 2046 LORazepam (ATIVAN) injection 1 mg Given 01/22/2012 8:56 AM PROJECT CONSTRUCTION MANAGER 1 mg 1 mg, Intravenous, EVERY 4 HOURS PRN, anxiety, Starting on Sat01/22/12 at 0830 metoclopramide (REGLAN) injection 10 mg Given 01/22/2012 8:30 AM PROJECT CONSTRUCTION MANAGER 10 mg 10 mg, Intravenous, EVERY 6 HOURS PRN, nausea and vomiting, Starting on Sat01/21/12 at 1929, This is Step 3 of nausea and vomiting protocol. Give if nausea not resolve 15 minutes after giving prochlorperazine. ondansetron (ZOFRAN) injection 4 mg Given 01/21/2012 11:31 AM PROJECT CONSTRUCTION MANAGER 4 mg 4 mg, Intravenous, ONCE, Administer over 2 Minutes, On Sat01/21/12 at 1120, For 1 dose ondansetron (ZOFRAN) injection 4 mg Given 01/22/2012 5:26 AM PROJECT CONSTRUCTION MANAGER 4 mg 4 mg, Intravenous, EVERY 6 HOURS PRN, nausea, vomiting, Administer over 2-5 Minutes, Starting on Sat01/21/12 at 1929, This is Step 1 of nausea and vomiting protocol. If nausea not resolved in 15 minutes, go to Step 2 (Prochlorperazine). Given 01/21/2012 11:40 PM PROJECT CONSTRUCTION MANAGER 4 mg ondansetron (ZOFRAN) injection 8 mg Given 01/22/2012 6:19 AM PROJECT CONSTRUCTION MANAGER 4 mg 8 mg, Intravenous, EVERY 6 HOURS PRN, nausea, vomiting, Administer over 2-5 Minutes, Starting on Sat01/22/12 at 0606, This is Step 1 of nausea and vomiting protocol. If nausea not resolved in 15 minutes, go to Step 2 (Prochlorperazine). promethazine (PHENERGAN) injection 12.5 mg Given 01/21/2012 1:43 PM PROJECT CONSTRUCTION MANAGER 12.5 mg 12.5 mg, Intravenous, ONCE, On Sat01/21/12 at 1328, For 1 dose, WARNING FOR IV ADMINISTRATION: Intra-arterial inj. causes tissue necrosis. STOP administration if pain or discomfort occurs. IMPORTANT: FOR IV administration: Nurse to dilute 25 mg with 10 mL of normal saline in a syringe. Resulting concentration = 2.5 mg/ mL. Administer over 3-5 minutes (Max of 25 mg/minute).?? rOPINIRole (REQUIP) tablet 10 mg Given 01/21/2012 11:12 PM PROJECT CONSTRUCTION MANAGER 10 mg 10 mg, Oral, AT BEDTIME, First dose on Sat01/21/12 at 2200, Indications: Restless Leg Syndrome sodium chloride (PF) 0.9% PF flush 70 mL Given 01/21/2012 3:27 PM PROJECT CONSTRUCTION MANAGER 10 mLs 70 mL, Intravenous, ONCE, On Sat01/21/12 at 1429, For 1 dose sodium chloride 0.9 % BOLUS New Bag 01/21/2012 5:18 PM PROJECT CONSTRUCTION MANAGER 1,000 m Ls 1000 mL/hr 1,000 mL Intravenous, 1,000 mL, ONCE, at 1,000 mL/hr, Administer over 1 Hours, On Sat01/21/12 at 1120, For 1 dose sodium chloride 0.9 % BOLUS New Bag 01/21/2012 1:43 PM PROJECT CONSTRUCTION MANAGER 1,000 m Ls 1000 mL/hr 1,000 mL Intravenous, 1,000 mL, ONCE, at 1,000 mL/hr, Administer over 1 Hours, On Sat01/21/12 at 1324, For 1 dose sodium chloride 0.9 % BOLUS New Bag 01/21/2012 11:40 PM PROJECT CONSTRUCTION MANAGER 1, 000 mLs 1000 mL/hr 1,000 mL Intravenous, 1,000 mL, ONCE, at 1,000 mL/hr, Administer over 1 Hours, On Sat01/21/12 at 2345, For 1 dose venlafaxine (EFFEXOR-ER) 24 hr tablet 15 0 mg Given 01/22/2012 8:59 AM PROJECT CONSTRUCTION MANAGER 150 mg 150 mg, Oral, DAILY, First dose on Sat01/22/12 at 0800, DO NOT CRUSH. documented in this encounter Active and Recently Administered Medications Times are shown in PROJECT CONSTRUCTION MANAGER. Scheduled Medication Order 01/20/2012 01/21/2012 01/22/2012 acetaminophen (TYLENOL) tablet 1,000 mg (COMPLETED) 1716 (Given - Provider: Edison Walker RN) 1,000 mg, Oral, ONCE, Sat01/21/12 at 1710, For 1 dose buPROPion (WELLBUTRIN SR) 12 hr tablet 150 mg (CANCELED) 0858 (Given - Provider: Connie Murphy) 150 mg, Oral, 2 TIMES DAILY, First dose on Sat01/22/12 at 0 800, DO NOT CRUSH. cefTRIAXone (ROCEPHIN) 1 g vial to attach to IVPB (COMPLETED ) 171 (New Bag - Provider: Edison Walker RN)1800 (Stopped - Provider: Edison Walker RN) 1 g, Intravenous, ONCE, for 15 Minutes, Sat01/21/12 at 1619, Fo r 1 dose ciprofloxacin (CIPRO) 400 mg in dextrose 5% 200 mL IVPB (CAN CELED) 2111 (New Bag - Provider: Cherelle Ro, NANDINI) 1044 (New Bag - Provider: Connie blanca) 400 mg, Intravenous, for 60 Minutes, RANCHO RY 12 HOURS, First dose on Sat01/21/12 at 2015 hydrocortisone sodium succinate (Solu-CORTEF) injection 50 mg (C OMPLETED) 0104 (New Bag - Provider: Diana Merritt, NANDINI) 50 mg, Intravenous, ONCE, Sat01/21/12 at 2345, For 1 dose hydrocortisone sodium succinate (Solu-CORTEF) injection 50 mg (C ANCELED) 0835 (New Bag - Provider: Connie Murphy)1406 (New Bag - Provider: Connie Murphy) 50 mg, Intravenous, EVERY 6 HOURS, First dose on Sat01/22/12 at 0700 iopamidol (ISOVUE-300) IV solution 61% 100 mL (COMPLETED) 1526 (Given - Provider: Mary A Bart, ARRT) 100 mL, Intravenous, ONCE, Sat01/21/12 at 1429, For 1 dose levothyroxine (SYNTHROID, LEVOTHROID) tablet 75 mcg (CANCELED) 06 (Given - Provider: Diana Merritt, NANDINI) 75 mcg, Oral, DAILY, First dose on Sat01/22/12 at 0700 ondansetron (ZOFRAN) injection 4 mg (COMPLETED) 1131 (Given - Provider: Ning Clarke RN) 4 mg, Intravenous, ONCE, for 2 Minutes, Sat01/21/12 at 1120, Fo r 1 dose promethazine (PHENERGAN) injection 12.5 mg (COMPLETED) 1343 (Given - Provider: Negrita Patton, NANDINI) 12.5 mg, Intravenous, ONCE, Sat01/21/12 at 1328, For 1 dose, WARNING FOR IV ADMINISTRATION: Intra-arterial inj. causes tissue necrosis. STOP administration if pain or discomfort occurs. IMPORTANT: FOR IV administration: Nurse to dilute 2 5 mg with 10 mL of normal saline in a syringe. Resulting concentration = 2.5 mg/ mL. Administer over 3-5 minutes (Max of 25 mg/minute).?? rOPINIRole (REQUIP) tablet 10 mg (CANCELED) 231 (Given - Provider: Cherelle Ro RN) 10 mg, Oral, AT BEDTIME, First dose on Sat01/21/12 at 2200 sodium chloride (PF) 0.9% PF flush 70 mL (COMPLETED) 1527 (Given - Provider: ORLANDO Fischer) 70 mL, Intravenous, ONCE, Sat01/21/12 at 1429, For 1 dose sodium chloride 0.9 % BOLUS 1,000 mL (COMPLETED) 1718 (New Bag - Provider: Edison Walker RN)1832 (ED Infusing on Admission/transfer - Provider: Edison Walker RN) Intravenous, 1,000 mL, ONCE, at 1,000 mL /hr, for 1 Hours, Sat01/21/12 at 1120, For 1 dose sodium chloride 0.9 % BOLUS 1,000 mL (COMPLETED) 1343 (New Bag - Provider: Negrita Patton RN)1700 (Stopped - Provider: Edison Walker RN) Intravenous, 1,000 mL, ONCE, at 1,000 mL /hr, for 1 Hours, Sat01/21/12 at 1324, For 1 dose sodium chloride 0.9 % BOLUS 1,000 mL (COMPLETED) 2340 (New Bag - Provider: Nathalia Pratt RN - Comment: Charted under another bolus incorrectly) 0048 (Stopped - Provider: Nathalia Pratt RN) Intravenous, 1,000 mL, ONCE, at 1,000 mL /hr, for 1 Hours, Sat01/21/12 at 2345, For 1 dose venlafaxine (EFFEXOR-ER) 24 hr tablet 150 mg (CANCELED) 0859 (Given - Provider: Connie Murphy) 150 mg, Oral, DAILY, First dose on Sat01/22/12 at 0800, DO NOT CRUSH. Continuous Medication Order 01/20/2012 01/21/2012 01/22/2012 0.9 % sodium chloride IV solution (CANCELED) 2019 (New Bag - Provider: Cherelle Ro RN)2112 (Stopped - Provider: Nathalia Pratt RN)2332 (Restarted - Provider: Nathalia Pratt RN)2340 (Stopped - Provider: Nathalia Pratt RN) 0050 (New Bag - Provider: Nathalia Pratt RN)0855 (New Bag - Provider: Connie Murphy)1048 (Stopped - Provider: Connie Murphy)1150 (Restarted - Provider: Connie Murphy) 1,000 mL, Intravenous, at 125 mL/hr, CONTINUOUS, Starting Mo n 01/21/12 at 1945 PRN Medication Order 01/20/2012 01/21/2012 01/22/2012 acetaminophen (TYLENOL) tablet 650 mg (CANCELED) 2015 (Given - Provider: Cherelle Ro RN) 650 mg, Oral, EVERY 4 HOURS PRN, mild pa in, Starting Sat01/21/12 at 1930, Alternate ibuprofen (if ordered) with acetaminophen Maximum acetaminophen dose from all sources = 75 mg/kg/day not to exceed 4 grams/day. HYDROmorphone (DILAUDID) injection 0.2-0.4 mg (CANCELED) 06 (Given - Provider: Diana A Wolney, RN) 0.2-0.4 mg, Intravenous, EVERY 2 HOURS P RN, Starting Sat01/22/12 at 0607, Until Sat01/22/12 at 1659, moderate to severe pain loperamide (IMODIUM) capsule 2 mg (CANCELED) 2220 (Given - Provider: Cherelle Ro, NANDINI) 2 mg, Oral, 4 TIMES DAILY PRN, diarrhea, Starting Sat01/21/12 a t 2046 LORazepam (ATIVAN) injection 1 mg (CANCELED) 0856 (Given - Provider: Connie Murphy) 1 mg, Intravenous, EVERY 4 HOURS PRN, anxiety, Starting 01/09 at 0830 metoclopramide (REGLAN) injection 10 mg (CANCELED) 0830 (Given - Provider: Connie Murphy) 10 mg, Intravenous, EVERY 6 HOURS PRN, S tarting Sat01/21/12 at 1929, nausea and vomiting, This is Step 3 of nausea and vomiting protocol. Give if nausea not resolve 15 minutes after giving prochlorperazine. ondansetron (ZOFRAN) injection 4 mg (CANCELED) 2340 (Given - Provider: Nathalia Pratt RN) 0526 (Given - Provider: Diana Merritt RN) 4 mg, Intravenous, EVERY 6 HOURS PRN, na usea, vomiting, for 2 Minutes, Starting Sat01/21/12 at 1929, This is Step 1 of nausea and vomiting protocol. If nausea not resolved in 15 minutes, go to Step 2 (Prochlorperazine). ondansetron (ZOFRAN) injection 8 mg (CANCELED) 06 (Given - Provider: Diana Merritt RN - Comment: see prevuious dose of 4mg) 8 mg, Intravenous, EVERY 6 HOURS PRN, na usea, vomiting, for 2 Minutes, Starting Sat01/22/12 at 0606, This is Step 1 of nausea and vomiting protocol. If nausea not resolved in 15 minutes, go to Step 2 (Prochlorperazine). documented in this encounter Care Teams Buttermaker Continuous Churn Relationship Specialty Start Date End Date Edison Tam MD PCP - General Family Practice 09/21/11 07/22/[address] [address] documented as of this encounter
--- OUTSIDE RECORDS SUMMARY | 2021-10-24 12:08 | XMS_ITS | Encounter Summary ---
:1955 Author Organization [place] Address [facility]ly [facility], [facility] [place] [address] Care Team Providers Name Role Phone Edison Tam MD Primary Care Provider Encounter Details Date Type Department Care Team Description 12/13/2011 Orders Only [facility] Ike Oliver Right wrist fracture [facility] MD Jenny (Primary Dx) Center XX RETIRED XX 1st Floor, [address] [address] [place], [place] [phone] (Work) [phone] Social History Tobacco Use Types Packs/Day Years Used Date Former Smoker 1 18 Smokeless Tobacco: Former User Q uit: 09/20/1991 Alcohol Use Standard Drinks/Week Comments No 0 (1 standard drink = 0.6 oz pure alcoho l) Sex Assigned at Date Recorded Not on file documented as of this encounter Plan of Treatment Not on filedocumented as of this encounter Visit Diagnoses Diagnosis Right wrist fracture - Primary Unspecified closed fracture of carpal ricki ne documented in this encounter Care Teams Thread Weaver Relationship Specialty Start Date End Date Edison Tam MD PCP - General Family Practice 09/21/11 07/22/14 909 [facility] 4 [place], [place] [address] documented as of this encounter
--- OUTSIDE RECORDS SUMMARY | 2021-10-24 12:08 | XMS_ITS | Encounter Summary ---
:1955 Author Organization [place] Address [address] [place] [address] Care Team Providers Name Role Phone Edison Olivas MD Primary Care Provider Reason for Referral Specialty Diagnoses / Procedures Referred By Contact Refer red To Contact Edison Olivas MD [address] [place] [address] 5 Referral ID Status Reason Start Date Expiration Date Visits Requ ested Visits Authorized Specialty Diagnoses / Procedures Referred By Contact Radha isaac To Contact Edison Olivas MD [address] [place] [address] 5 Referral ID Status Reason Start Date Expiration Date Visits Requ ested Visits Authorized Specialty Diagnoses / Procedures Referred By Contact Radha isaac To Contact Edison Olivas MD [address] [place] [address] 5 Referral ID Status Reason Start Date Expiration Date Visits Requ ested Visits Authorized Specialty Diagnoses / Procedures Referred By Contact Radha isaac To Contact Edison Olivas MD [address] [facility] [address] [place], [place] [address] Referral ID Status Reason Start Date Expiration Date Visits Requ ested Visits Authorized Reason for Visit Reason Comments Physical Fatigue first noticed years ago but its been getting worse the last five years. Fatigue Patient has been drinking 2- 3 Five Hour Energy shots a day Encounter Details Date Type Department Care Team Description 11/01/2011 Office Visit [facility], Primary Edison Olivas Renal mass, right (Primary Dx); Care Center MD Marcia Yossi thyroiditis; 3rd Floor, Clinic 3A [address] [facility] Connective tissue disease (H ); [facility] 4 Osteoporosis; Building [place], [place] Thrush; [address] [facility] [place] [address] Dermatitis; [facility] 88 Fibrosis of skin; [place], [place] (Work) Routine general medical examination at a health care facility; [id number] Vaginal discharge Social History Tobacco Use Types Packs/Day Years Used Date Former Smoker 1 18 Smokeless Tobacco: Former User Q uit: 09/20/1991 Alcohol Use Standard Drinks/Week Comments No 0 (1 standard drink = 0.6 oz pure alcoho l) Sex Assigned at Date Recorded Not on file documented as of this encounter Last Filed Vital Signs Vital Sign Reading Time Taken Comments Blood Pressure 104/70 11/01/2011 10:11 AM CDT Pulse 76 11/01/2011 10:11 AM CDT Temperature - - Respiratory Rate 12 11/01/2011 10:11 AM CDT Oxygen Saturation - - Inhaled Oxygen Concentration - - Weight 64 kg (141 lb) 11/01/2011 10:11 AM CDT Height 157.5 cm (5' 2) 11/01/2011 10:11 AM CDT Body Mass Index 25.79 11/01/2011 10:11 AM CDT documented in this encounter Patient Instructions Patient InstructionsSaEdison hogan MD - 11/01/2011 10:51 AM CDT Please complete release of records ( multiple) She will schedule with colon rectal surgeon for fistula. Assist with already ordered Mammogram, DEXA, Renal ultrasound, chest XRAY documented in this encounter Progress Notes Edison Olivas MD - 11/01/2011 10:18 AM CDT Maria E Norman is here for physical. She had to establish new insurance in [place] so she has not schedule some of the tests we previously ordered. She has significant chronic fatigue. Recent labs looks normal except Vit D, currently replacing. She has throat soreness. We treated her for Thrush for a few days. Dry throat symptoms. Not smoker. She has multiple symptoms suggestive of connective tissue disorder such as lupus. She has been testedin the past, negative for lupus. He sister has Sjogren. She has never been told she might have scleroderma. She notices multiple skin lesions including fibrous lesions suggestive of warts. She is on immunosuppressive therapy for Crohns, established care with Dr Rk NARANJO GI. She has been seen by colonrectal surgeon who would like to do a biopsy of her fistula are near perineum. She notices a vaginal discharge, possible from the fistula. She needs Pap and pelvic exam. I previously ordered DEXA, mammogram, chest XRAY. She needs renal ultrasound for follow up of right renal massand urology evaluation. She needs endocrinology for thyroid and follow-up osteoporosis. She receives infusion for osteoporosis. Her records have not yet been received from previous clinic. She will sign release of records. Patient Active Problem List Diagnoses ??? Yossi thyroiditis ??? Crohn's disease of both small and large intestine with complication ??? Adjustment disorder with mixed anxiety and depressed mood ??? Fatigue ??? Renal mass, right Past Medical History Diagnosis Date ??? Crohn's 1977 on prednisone chronically ??? Osteoporosis ??? Fracture of wrist fall ??? Narcotic dependence, in remission rehab ??? Nicotine dependence in remission Past Surgical History Procedure Date ??? Appendectomy open 1985 ??? Small bowel resection 1985 colon and distal ilium ??? Sigmoidectomy left ovary removal ??? Back surgery 2009 L4-L5 laminectomy ??? Release carpal tunnel right Current Outpatient Prescriptions Medication ??? OMEPRAZOLE PO ??? UNABLE TO FIND ??? Menthol, Topical Analgesic, (ICY HOT EX) ??? Acetaminophen (TYLENOL EXTRA STRENGTH PO) ??? ergocalciferol (ERGOCALCIFEROL) 99681 UNIT capsule ??? Cyanocobalamin (VITAMIN B-12 IJ) ??? predniSONE 10 MG KIT ??? levothyroxine (LEVOTHROID) 75 MCG tablet ??? glimepiride (AMARYL) 1 MG tablet ??? BUPROPION HCL PO ??? propranolol (INDERAL) 20 MG tablet ??? ALPRAZolam (XANAX XR) 2 MG 24 hr tablet ??? DULoxetine (CYMBALTA) 60 MG capsule ??? folic acid (FOLVITE) 1 MG tablet ??? Potassium (POTASSIMIN PO) ??? Loperamide HCl (IMODIUM A-D PO) ??? Pseudoephedrine-Guaifenesin (MUCINEX D PO) ??? Calcium Citrate-Vitamin D (CITRACAL + D PO) ??? METHOTREXATE SODIUM IJ ??? rOPINIRole (REQUIP) 5 MG tablet Allergies Allergen Reactions ??? Penicillin G ??? Tramadol History Social History ??? Marital Status: Single [...] Social History Narrative Moved to [place] from [facility] to live with Twin sister Joan [place]. Family History Problem Relation Age of Onset ??? Arthritis Sister Sjogrens ??? Neurological Sister Multiple sclerosis ??? Cancer Mother 68 Lung ??? Endocrine Disease Mother Hashimotos ??? Endocrine Disease Sister Hashimotos 10 point ROS of systems including Constitutional, Eyes, Respiratory, Cardiovascular, Gastroenterology, Genitourinary, Integumentary, Muscularskeletal, Psychiatric were all negative except for pertinentpositives noted in my HPI. BP 104/70 Pulse 76 Resp 12 Ht 1.575 m (5' 2) Wt 63.957 kg (141 lb) BMI 25.79 kg/m2 Constitutional: Oriented to person, place, and time. Vital signs are noted. Appears appropriately nourished. Non-toxic appearance. No distress. Moves slowly. Skin appears tight over bridge of nose and hands HENT: Head: Normocephalic and atraumatic. Mouth/Throat:Thrush on tongue, slightly improved. Oropharynx is clear and moist. No oropharyngeal [...] Normal mood, affect and behavior is normal. Breasts:normal without suspicious masses, skin changes or axillary nodes Pelvic Exam: Vulva:Chronic Fistula present over left labia draining small fecal material, slight maceration, white discoloration of skin. No other external lesions, thin hair distribution, no adenopathy Vagina: Atrophy, pink, no abnormal discharge, no rugation, no lesions Cervix: Pap smear is taken,nulli- parous, small, smooth, pink, no visible lesions Uterus: Normal size, anteverted, non-tender, mobile Ovaries: No mass, non-tender, mobile Urethra: Normal Results for orders placed in visit on 11/01/11 WET PREP Component Value Range Specimen Description Vagina Wet Prep Value: Moderate PMNs seen Few Yeast seen No Trichomonas seen No clue cells seen Micro Report Status FINAL 11/01/2011 Maria E was seen today for physical and fatigue. She has Crohns, will follow-up with GI/ colorectal surgery for assessment of possible biopsy af fistula area. Diagnoses and associated orders for this visit: Renal mass, right - UROLOGY ADULT REFERRAL She will schedule renal ultrasound previously ordered. Yossi thyroiditis - PHQ-9 ORDER - select when completing PHQ-9 - ENDOCRINOLOGY ADULT REFERRAL Recent labs normal Connective tissue disease - RHEUMATOLOGY REFERRAL Consideration for scleroderma or other connective tissue disorder. Osteoporosis - ENDOCRINOLOGY ADULT REFERRAL Needs DEXA scheduled, already ordered. Thrush - nystatin (MYCOSTATIN) 026173 UNIT/ML suspension; Take 5 mLs by mouth 4 times daily for 10 days. Dermatitis - DERMATOLOGY REFERRAL Fibrosis of skin - DERMATOLOGY REFERRAL Routine general medical examination at a health care facility - PAP Screen (LAB) - Pap smear procedure (exam) - Pelvic and Breast Exam Procedure (exam) - PHQ-9 ORDER - select when completing PHQ-9 Vaginal discharge - Wet prep Other Orders - OMEPRAZOLE PO; Take by mouth as needed. - UNABLE TO FIND; nightly as needed. MEDICATION NAME: Calms Forte - Menthol, Topical Analgesic, (ICY HOT EX); Externally apply topically. Patient uses Gel, Cream and Patch PRN - Acetaminophen (TYLENOL EXTRA STRENGTH PO); Take 2 tablets by mouth 2 times daily. For Tooth Extraction Pain Discontinue 5 hour energy drinks. All questions were addressed and voiced understanding and agreement with the above. Edison Olivas documented in this encounter Nursing Notes 11/01/2011 10:00 AM CDT >> [facility] 10[facility]14 AM Patient presents with: Physical - Fatigue first noticed years ago but its been getting worse the last five years. Fatigue - Patient has been drinking 2-3 Five Hour Energy shots a day Patient reports she has been taking 10-12 tabs of Loperamide HCl (IMODIUM A-D PO) daily. Patient has her METHOTREXATE SODIUM IJ on hold because of a recall. Patient uses her rOPINIRole (REQUIP) 5 MG tablet as needed. documented in this encounter Miscellaneous Notes Initial Assessments - Edison Olivas MD - 11/02/2011 10:10 AM CDT documented in this encounter Plan of Treatment Scheduled Referrals Name Type Priority Associated Diagnoses Order S rosie UROLOGY ADULT REFERRAL Referral Routine Renal mass, right Ordered: 11/01/2011 ENDOCRINOLOGY ADULT Referral Routine Yossi th yroiditis Ordered: 11/01/2011 REFERRAL Osteoporosis RHEUMATOLOGY REFERRAL Referral Routine Connective tissue O rdered: 11/01/2011 disease (H) DERMATOLOGY REFERRAL Referral Routine Dermatitis Ordered: 11/01/2011 Fibrosis of skin documented as of this encounter Procedures Procedure Name Priority Date/Time Associated Diagnosis Comme nts PAP IMAGED THIN Routine 11/01/2011 11:00 Routine general Resul ts for this LAYER SCREEN AM CDT medical examination procedur e are in at a [facility] the results facility section. HC CERV/VAG CANC Routine 11/01/2011 10:59 Routine general SCRN,PELV/BREAST AM CDT medical examination EXAM at a health care facility WET PREPARATION Routine 11/01/2011 10:59 Vaginal discharge Res ults for this AM CDT procedure are i n the results section. documented in this encounter Results PAP Screen (LAB) (11/01/2011 11:00 AM CDT) Component Value Ref Test Analysis Performed At [facility] Range Method Time Signature PAP NIL COPATH Copath Report COPATH Patient Name: MARIA E NORMAN MR#: [id number] Specimen #: [id number] Collected: 11/01/2011 Received: 11/01/2011 Reported: 11/05/2011 11:45 Ordering Phy(s): EDISON OLIVAS SPECIMEN/STAIN PROCESS: Pap imaged thin layer prep screening (Surepath, FocalPoint w ith guided screening) ? Pap-Cyto x 1, Reflex HPV x 1 SOURCE: Cervical, endocervical ---- Pap imaged thin layer prep screening (Surepath, FocalPoint with guided screening) SPECIMEN ADEQUACY: Satisfactory for evaluation. -Transitional zone component could not be determined due to atrophy. CYTOLOGIC INTERPRETATION: Negative for Intraepithelial Lesion or Malignancy Electronically signed out by: BRITNEY Clemente (ASCP) Processed and screened at [facility] CLINICAL HISTORY: Other: cohns, vaginal fistula, Papanicolaou Test Limitations: ??Cervical cytology is a scre ening test with limited sensitivity; regular screening is critical for cancer prevention; Pap tests are primarily effective for the diagnosis/prevention of squamous cell carcinoma, not adenoca rcinomas or other cancers. TESTING LAB LOCATION: [facility], [facility] [address] [place], [place] ??[address] COLLECTION SITE: Client: ??[facility] Location: [facility] (B) Specimen (Source) Anatomical Collection Method Collection Time Re ceived Time Location / / Volume Laterality Cytologic 11/01/2011 11:00 11/01/2011 2:55 material AM CDT PM CDT (specimen) Edison Olivas MD LAB - OPTIME CLINICAL SPECIM EN Performing Organization Address City/State/ZIP Code Phon e Number [place] Wet prep (11/01/2011 10:59 AM CDT) Component Value Ref Test Analysis Performed At [facility] gist Range Method Time Signature Specimen Vagina [facility] Description MICROBIOLOGY Wet Prep Moderate PMNs seen [facility] Few Yeast seen MICROBIOLOGY No Trichomonas seen No clue cells seen Micro Report FINAL [facility] Status 11/01/2011 MICROBIOLOGY Specimen Anatomical Collection Method Collection Time Receive d Time (Source) Location / / Volume Laterality 11/01/2011 10:59 11/01/2011 AM CDT 11:33 AM CDT Edison Olivas MD LAB - MICRO GENERAL ORDERABL ES Performing Organization Address City/State/ZIP Code Phon e Number [facility] [address] [place], [place] [phone] [place] [address] [facility] MICROBIOLOG[facility] documented in this encounter Visit Diagnoses Diagnosis Renal mass, right - Primary Unspecified disorder of kidney and urete r Yossi thyroiditis Chronic lymphocytic thyroiditis Connective tissue disease (H) Unspecified diffuse connective tissue di sease Osteoporosis Osteoporosis, unspecified Thrush Candidiasis of mouth Dermatitis Contact dermatitis and other eczema, due to unspecified cause Fibrosis of skin Scar condition and fibrosis of skin Routine general medical examination at a health care facility Vaginal discharge Leukorrhea, not specified as infective documented in this encounter Care Teams Statistical Assistant Relationship Specialty Start Date End Date Edison Olivas MD PCP - General Family Practice 09/21/11 07/22/14 [address] [facility] [address] [place] [address] documented as of this encounter
--- OUTSIDE RECORDS SUMMARY | 2021-10-24 12:08 | XMS_ITS | Encounter Summary ---
:1955 Author Organization [place] Address [facility] [facility] [address] Care Team Providers Name Role Phone Edison Tam MD Primary Care Provider Reason for Visit Reason Comments Consult Encounter Details Date Type Department Care Team Description 12/26/2011 Office Visit [facility] [address] [facility] [address] [place] [address] Ovarian mass ([facility] Erlinda Nur MD Dx) [address] Professional Bldg [facility] [address] [phone] Social History Tobacco Use Types Packs/Day Years Used Date Former Smoker 1 18 Smokeless Tobacco: Former User Q uit: 09/20/1991 Alcohol Use Standard Drinks/Week Comments No 0 (1 standard drink = 0.6 oz pure alcoho l) Sex Assigned at Date Recorded Not on file documented as of this encounter Last Filed Vital Signs Vital Sign Reading Time Taken Comments Blood Pressure 117/76 12/26/2011 2:42 PM CDT Pulse - - Temperature - - Respiratory Rate - - Oxygen Saturation - - Inhaled Oxygen Concentration - - Weight 62.6 kg (138 lb) 12/26/2011 2:42 PM CDT Height 157.5 cm (5' 2) 12/26/2011 2:42 PM CDT Body Mass Index 25.24 12/26/2011 2:42 PM CDT documented in this encounter Progress Notes Erlinda Nur MD - 12/26/2011 4:40 PM CDT Sports Marketing Coordinator Clinic Consult Note Incidental ovarian mass on CT scan Maria E De La Cruz is a 56 year old P0010 who presents to clinic today after a cystic mass was found on a CT scan which was done as part of a trauma workup after the patient fell down the stairs after taking to many benadryl. She sustained a concussion and right forearm fracture. She was following up for MRI today but was unable to secondary to inability to place multiple IV. She reports that she was concerned that this cyst was a cancer. She denies any recent large changes in her weight. No recent change in abdominal bloating, which she does incur with her Crohn's disease. She denies any vaginal itching, burning or discharge. She denies any new urinary or bowel changes. She does have leakage from herfistulas and immodium helps with this. 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 Crohn's 1977 on prednisone chronically ??? Osteoporosis ??? Fracture of wrist fall ??? Narcotic dependence, in remission rehab ??? Nicotine dependence in remission ??? Menarche 9 y.o menapuase age 40 was on prednisone ??? Yossi's disease ??? Fibromyalgia ??? Lupus has had positive flare ups ??? Bunion ??? Arthritis PSH: Past Surgical History Procedure Date ??? Appendectomy open 1985 ??? Small bowel resection 1985 colon and distal ilium ??? Sigmoidectomy left ovary removal ??? Back surgery 2008 L4-L5 laminectomy ??? Release carpal tunnel right ??? Left ovary removal was removed during a resection ??? Back surgery 2010 L5 ??? C close urethrovaginal fistula two fistulas one rectovag one urethra vag- no hx uti's FH: Family History Problem Relation Age of Onset ??? Arthritis Sister Sjogrens twin sister ??? Neurological Sister Multiple sclerosis older sister ??? Cancer Mother 68 Lung ??? Endocrine Disease Mother Hashimotos ??? Endocrine Disease Sister Hashimotos both sisters Social history: History Social History ??? Marital Status: Single [...] Social History Narrative Moved [place] from [facility] to live with Twin sister Joan Ch[place]. Medications: Current Outpatient Prescriptions on File Prior to Visit: buprenorphine HCl-naloxone HCl (SUBOXONE) 8-[address] under the tongue. Patient cuts each filminto three pieces and takes 1 slice 3 times a day. zoledronic Acid (RECLAST) 5 MG/100ML SOLN Inject 5 mg into the vein. Annually in the beginning of the year buPROPion (WELLBUTRIN SR) 150 MG 12 hr tablet Take 150 mg by mouth 2 times daily. AM and 1 PM cyanocobalamin 1000 MCG/ML injection Inject 1 mL into the muscle every 30 days. FOLIC ACID PO Take 1 mg by mouth daily. Take while on methotrexate. methotrexate 25 MG/ML injection Inject 25 mg into the muscle once a week. Indications: Crohn's Disease OMEPRAZOLE PO Take 20 mg by mouth 2 times daily (before meals). Potassium Chloride Nancy CR (K-DUR PO) Take 16 mEq by mouth 3 times daily. guaiFENesin (MUCINEX) 600 MG 12 hr tablet Take 600 mg by mouth 2 times daily. UNABLE TO FIND nightly as needed. MEDICATION NAME: Calms Forte Menthol, Topical Analgesic, (ICY HOT EX) Externally apply topically. Patient uses Gel, Cream and Patch PRN Acetaminophen (TYLENOL EXTRA STRENGTH PO) Take 2 tablets by mouth 2 times daily. For Tooth Extraction Pain ergocalciferol (ERGOCALCIFEROL) 81449 UNIT capsule One capsule twice weekly predniSONE 10 MG KIT Take by mouth daily. levothyroxine (LEVOTHROID) 75 MCG tablet Take by mouth daily. glimepiride (AMARYL) 1 MG tablet Take 1 mg by mouth every morning (before breakfast). propranolol (INDERAL) 20 MG tablet Take 20 mg by mouth daily. ALPRAZolam (XANAX XR) 2 MG 24 hr tablet Take 2 mg by mouth every morning. DULoxetine (CYMBALTA) 60 MG capsule Take by mouth daily. rOPINIRole (REQUIP) 5 MG tablet Take 5 mg by mouth 2 times daily. Loperamide HCl (IMODIUM A-D PO) Take by mouth. 8-10 tablets daily Unknown dose. Calcium Citrate-Vitamin D (CITRACAL + D PO) Take 2 tablets by mouth daily. Allergies: Allergies Allergen Reactions ??? Sulfa Drugs Profound lethargy ??? Penicillin G Rash Childhood reaction ??? 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 Plan: Return for pelvic ultrasound and pelvic examination in one week Discussed with patient that she is a poor surgical candidate given her Crohn's history and multiple abdominal surgeries. Patient agrees and would like to follow this mass with ultrasounds. Mammogram UTD, negative 11/2011 Pap UTD, negative 10/20 Erlinda Nur MD The Patient was seen in [facility] by ERLINDA NUR. I reviewed the history & exam. Assessment and plan were jointly made. Merry Gaspar MD documented in this encounter Nursing Notes 12/26/2011 2:30 PM CDT >> ADA MORTENSEN SatDec 26, 2011 2:46 PM Here today to consult regarding tumor found on ovary during u/l 12-03-2011 documented in this encounter Plan of Treatment Not on filedocumented as of this encounter Visit Diagnoses Diagnosis Ovarian mass - Primary Unspecified noninflammatory disorder of ovary, fallopian tube, and broad ligament documented in this encounter Care Teams Managing Consultant Clinical Professor Relationship Specialty Start Date End Date Edison Tam MD PCP - General Family Practice 09/21/11 07/22/[address] [facility] 4 [place] [address] documented as of this encounter
--- OUTSIDE RECORDS SUMMARY | 2021-10-24 12:08 | XMS_ITS | Encounter Summary ---
:1955 Author Organization [place] Address [facility] [place] [address] Care Team Providers Name Role Phone Edison Tam MD Primary Care Provider Reason for Visit Reason Comments Consult R distal radius fx on 2011 Encounter Details Date Type Department Care Team Description 12/14/2011 Office Visit [facility] Ike Oliver Right wrist pain [facility] MD Jenny (Primary Dx) Center XX RETIRED XX 1st Floor, [address] [address] [place], [place] [phone] (Work) [phone] Social History Tobacco Use Types Packs/Day Years [...] - - Weight 61.2 kg (135 lb) 12/14/2011 11:41 AM CDT Height 157.5 cm (5' 2) 12/14/2011 11:41 AM CDT Body Mass Index 24.69 12/14/2011 11:41 AM CDT documented in this encounter Progress Notes Ike Oliver MD - 12/14/2011 12:10 PM CDT HISTORY OF PRESENT ILLNESS: This lady is seen secondary to an injury to her right wrist. She has a past history of difficulties. She has been taking prednisone for 45 years. Apparently seen on her workup was a kidney mass and also a mass on her ovary. She is seen today because of pain in her right wrist. She has never had trouble here or difficulty apparently with her right wrist over her years. At this time, she slipped and fell down the stairs at home. She strained her back. As far as her back is concerned, she has had a spondylosis at L5-S1 in the past, for which she has been treated conservatively. She has also had a lumbar laminectomy secondary to this. Her right wrist is painful and x- rays did show a possible fracture of the distal dorsal radius. Her sensation and circulation are good. At this time, there is also a question of a problem with her head, as she had trauma there, but at this point, all the studies are negative and she has decreased her headache. Her vision is satisfactory. Arun arently she did have diplopia at one time after this fall. She seems to be alert and aware, able to answer questions. Her learning support assistant is with her and she seems to be alert and aware. PHYSICAL EXAMINATION: She has full range of motion about her right shoulder, full range of motion about her elbow. Examination of her wrist reveals she has some dorsal distal radius pain. There is no gross swelling about this. Her carpal tunnel is negative to palpation. Her intrinsic muscles are intact. Her range of motion about her wrist is decreased by approximately 30%. She does have radial and ulnar deviation that does cause her pain and stress. Motion about the fingers causes her pain. This is on the right side. Her left side is negative. Her range of motion about her neck is decreased slightly. There is no gross tenderness to deep palpation in her lumbar spine. ASSESSMENT AND PLAN: I had new x-rays taken of the right wrist and these do show exostosis on the dorsum of her right wrist and there is a question whether this is a new fracture or an old injury. I dothink that there is a possibility of a dorsal wrist fracture here. I have seen this on one of the APviews. Therefore, I do feel that she should continue with her wrist splint for 5 weeks. At the end of those 5 weeks she can take it off and if she then starts to have pain and difficulty, she should let us know. Otherwise, after 5 weeks if she is doing well there is no reason for her to return if she is not having pain or any other difficulty. She could go on about her business. She will be followed up for her kidney and apparently her ovary and these appointments are already scheduled for her. DIAGNOSIS: Fracture, right distal radius, dorsal fracture, in excellent position. documented in this encounter Nursing Notes 12/14/2011 11:30 AM CDT >> ROXANNA Jamison Dec 14, 2011 11:42 AM Reason For Visit: Patient presents with: Consult - R distal radius fx on 12/03/2011 Pain Assessment Patient Currently in Pain: Yes 0-10 Pain Scale: 1 Primary Pain Location: Wrist Pain Orientation: Right Pain Descriptors: Dull HEIGHT: 5' 2, WEIGHT: 135 lbs 0 oz, BMI: Body mass index is 24.69 kg/(m^2). Current Outpatient Prescriptions: buprenorphine HCl-naloxone HCl (SUBOXONE) 8-2 MG FILM, Place under the tongue. Patient cuts each film into three pieces and takes 1 slice 3 times a day. zoledronic Acid (RECLAST) 5 MG/100ML SOLN, Inject 5 mg into the vein. Annually in the beginning of the year buPROPion (WELLBUTRIN SR) 150 MG 12 hr tablet, Take 150 mg by mouth 2 times daily. AM and 1 PM cyanocobalamin 1000 MCG/ML injection, Inject 1 mL into the muscle every 30 days. FOLIC ACID PO, Take 1 mg by mouth daily. Take while on methotrexate. methotrexate 25 MG/ML injection, Inject 25 mg into the muscle once a week. Indications: Crohn's Disease OMEPRAZOLE PO, Take 20 mg by mouth 2 times daily (before meals). Potassium Chloride Nancy CR (K-DUR PO), Take 16 mEq by mouth 3 times daily. guaiFENesin (MUCINEX) 600 MG 12 hr tablet, Take 600 mg by mouth 2 times daily. UNABLE TO FIND, nightly as needed. MEDICATION NAME: Calms Forte Menthol, Topical Analgesic, (ICY HOT EX), Externally apply topically. Patient uses Gel, Cream and Patch PRN Acetaminophen (TYLENOL EXTRA STRENGTH PO), Take 2 tablets by mouth 2 times daily. For Tooth Extraction Pain ergocalciferol (ERGOCALCIFEROL) 85836 UNIT capsule, One capsule twice weekly predniSONE 10 MG KIT, Take by mouth daily. levothyroxine (LEVOTHROID) 75 MCG tablet, Take by mouth daily. glimepiride (AMARYL) 1 MG tablet, Take 1 mg by mouth every morning (before breakfast). propranolol (INDERAL) 20 MG tablet, Take 20 mg by mouth daily. ALPRAZolam (XANAX XR) 2 MG 24 hr tablet, Take 2 mg by mouth every morning. DULoxetine (CYMBALTA) 60 MG capsule, Take by mouth daily. rOPINIRole (REQUIP) 5 MG tablet, Take 5 mg by mouth 2 times daily. Loperamide HCl (IMODIUM A-D PO), Take by mouth. 8-10 tablets daily Unknown dose Calcium Citrate-Vitamin D (CITRACAL + D PO), Take 2 tablets by mouth daily. -- Sulfa Drugs -- Profound lethargy -- Penicillin G -- Rash -- Childhood reaction -- Tramadol -- Itching and Rash documented in this encounter Plan of Treatment Not on filedocumented as of this encounter Visit Diagnoses Diagnosis Right wrist pain - Primary Pain in joint, forearm documented in this encounter Care Teams Ring Sorter Relationship Specialty Start Date End Date Edison Tam MD PCP - General Family Practice 09/21/11 07/22/[address] [address] documented as of this encounter
--- OUTSIDE RECORDS SUMMARY | 2021-10-24 12:08 | XMS_ITS | Encounter Summary ---
:1955 Author Organization [place] Address [address] [place] [address] Care Team Providers Name Role Phone Edison Tam MD Primary Care Provider Encounter Details Date Type Department Care Team Description 2011 Orders Only [facility] Doctor, None, [facility] [address] [place] [address] 424 [facility] - [address] [place] [phone] Social History Tobacco Use Types Packs/Day Years Used Date Former Smoker 1 18 Smokeless Tobacco: Former User Q uit: 09/20/1991 Alcohol Use Standard Drinks/Week Comments No 0 (1 standard drink = 0.6 oz pure alcoho l) Sex Assigned at Date Recorded Not on file documented as of this encounter Miscellaneous Notes Initial Assessments - Abstract, Provider - 12/06/2011 8:45 AM CDT documented in this encounter Plan of Treatment Not on filedocumented as of this encounter Visit Diagnoses Not on filedocumented in this encounter Care Teams Professor Of Business Relationship Specialty Start Date End Date Edison Tam MD PCP - General Family Practice 09/21/11 07/22/[address] [place] [phone] documented as of this encounter
--- OUTSIDE RECORDS SUMMARY | 2021-10-24 12:08 | XMS_ITS | Encounter Summary ---
:1955 Author Organization [place] Address [address] [place] [address] Care Team Providers Name Role Phone Edison Tam MD Primary Care Provider Reason for Visit Reason Onset Date Comments Medication Request 12/19/2011 Encounter Details Date Type Department Care Team Description 12/19/2011 Telephone [facility], Primary Edison Tam, Medication Request Care Center 3rd Floor, Clinic [address] [place] [id number] [place] [address] [place] [address] Social History Tobacco Use Types Packs/Day Years Used Date Former Smoker 1 18 Smokeless Tobacco: Former User Q uit: 09/20/1991 Alcohol Use Standard Drinks/Week Comments No 0 (1 standard drink = 0.6 oz pure alcoho l) Sex Assigned at Date Recorded Not on file documented as of this encounter Miscellaneous Notes Telephone Encounter - Lo Rausch RN - 12/20/2011 4:21 PM CDT Message left for patient to take xanax prior to MRI. Telephone Encounter - Edison Tam MD - 12/19/2011 12:58 PM CDT At her recent appointment she indicated she would be fine. She also has Xanax on her medication listshe could take prior to the MRI. Edison Tam Telephone Encounter - Lo Rausch RN - 12/19/2011 11:43 AM CDT Are you willing to rx something for patient? Thanks Telephone Encounter - Lo Rausch RN - 12/19/2011 11:42 AM CDT Message copied by LO RAUSCH on SatDec 19, 2011 11:42 AM ------ Message from: SHANTAL WU Created: SatDec 19, 2011 11:32 AM Regarding: Pt needs Rx for a sedative prior to her MRI on 12/25 Contact: Pt has an MRI scheduled for 12/25. She is extremely claustrophobic, due to a previous bad experience and would like Dr. Tam to write a Rx for a sedative for her to take prior to the procedure. Please call her on her cell at [phone] to discuss her options. Thanks. Shantal Please DO NOT send this message and/or reply back to sender. Call Center Representatives DO NOT respond to messages. documented in this encounter Plan of Treatment Not on filedocumented as of this encounter Visit Diagnoses Not on filedocumented in this encounter Care Teams Territory Supervisor Relationship Specialty Start Date End Date Edison Tam MD PCP - General Family Practice 09/21/11 07/22/[address] [address] documented as of this encounter
--- OUTSIDE RECORDS SUMMARY | 2021-10-24 12:08 | XMS_ITS | Encounter Summary ---
:1955 Author Organization [place] Address [address] [place] [address] Care Team Providers Name Role Phone Edison Tam MD Primary Care Provider Reason for Visit Reason Onset Date Comments Pre Visit Planning - Done 10/29/2011 Encounter Details Date Type Department Care Team Description 10/29/2011 PRE VISIT [facility], Primary Edison Tam Pre Visit Planning - Care Center MD Marcia Done 3rd Floor, Clinic [address] [place] [id number] [place] [address] [place], [place] (Work) [phone] [phone] Social History Tobacco Use Types Packs/Day Years Used Date Former Smoker 1 18 Smokeless Tobacco: Former User Q uit: 09/20/1991 Alcohol Use Standard Drinks/Week Comments No 0 (1 standard drink = 0.6 oz pure alcoho l) Sex Assigned at Date Recorded Not on file documented as of this encounter Miscellaneous Notes Telephone Encounter - Dee Cancino - 10/29/2011 2:50 PM CDT Pre-visit planning Appointment Type: Health Maintenance Overview: * Last Mammogram Done: no hx *Last Pap Smear Done: No hx *Last Colonoscopy Done: 10/31/10 *Last Lipid Screening Done:04/19/11 *Last Influenza vaccination Done:12/23/02 *Last Tetanus vaccination Done:no hx *Last Pneumococcal vaccination Done: no hx *Tobacco Screening: to be done at every visit. *Medication list reviewed and/or updated Done from last pre visit * Immunization record was reviewed and/or updated Done from last pre visit * Open Orders that are due: US, Dexa, Xray, Mammogram * General Notes: documented in this encounter Plan of Treatment Not on filedocumented as of this encounter Visit Diagnoses Not on filedocumented in this encounter Care Teams Motor Grader Operator Relationship Specialty Start Date End Date Edison Tam MD PCP - General Family Practice 09/21/11 07/22/14 [address] [facility] 4 [place] [address] documented as of this encounter
--- OUTSIDE RECORDS SUMMARY | 2021-10-24 12:08 | XMS_ITS | Encounter Summary ---
:1955 Author Organization [place] Address [address] [place] [address] Care Team Providers Name Role Phone Edison Tam MD Primary Care Provider Reason for Visit Reason Onset Date Comments Pre Visit Planning - Done 01/07/2012 Encounter Details Date Type Department Care Team Description 01/07/2012 Telephone UROLOGY [facility]IN[facility] AND Rigoberto Brian e Visit Planning - BAIRON Ulrich MD Done PROSTATE AND UROLOGIC [address] [facility] [place] [address] [facility] [phone] (Wo rk) BUILDING 4TH FLOOR, [address] 420 [facility] [address] [place] [address] Social History Tobacco Use Types Packs/Day Years Used Date Former Smoker 1 18 Smokeless Tobacco: Former User Q uit: 09/20/1991 Alcohol Use Standard Drinks/Week Comments No 0 (1 standard drink = 0.6 oz pure alcoho l) Sex Assigned at Date Recorded Not on file documented as of this encounter Miscellaneous Notes Telephone Encounter - Elie Jacinto - 01/07/2012 9:47 AM CDT Records are available and ready for patient. Patient is being seen for consult for right renal mass. documented in this encounter Plan of Treatment Not on filedocumented as of this encounter Visit Diagnoses Not on filedocumented in this encounter Care Teams Senior Asic Design Engineer Relationship Specialty Start Date End Date Edison Tam MD PCP - General Family Practice 09/21/11 07/22/14 909 [facility] 4 [place] [address] documented as of this encounter
--- OUTSIDE RECORDS SUMMARY | 2021-10-24 12:08 | XMS_ITS | Encounter Summary ---
:1955 Author Organization [place] Address [address] [place] [address] Care Team Providers Name Role Phone Edison Tam MD Primary Care Provider Encounter Details Date Type Department Care Team Description 2011 Results Only [facility] Edison Tam, [facility] Results 909 [facility] 4 [place], [place] [phone] (Wo rk) Social History Tobacco Use Types [...] Associated Diagnosis Comme nts MA SCREENING Routine 2011 2:09 PM Results f or this DIGITAL BILATERAL CDT procedure are in the results section. documented in this encounter Results Mammo Screening digital (bilat) (2011 2:09 PM CDT) Anatomical Region Laterality Modality Breast Bilateral Other Specimen (Source) Anatomical Collection Method Collection Time Re ceived Time Location / / Volume Laterality 2011 2:09 PM CDT Impressions 12/05/2011 1:51 PM CDT EXAM: Bilateral digital screening mammog ravi with computer aided detection 2011 COMPARISON: 03/15/2010 HISTORY: Routine screening FINDINGS: Breast tissue is heterogeneous ly dense. Bilateral scattered benign calcifications seen. No change fr om the prior study. IMPRESSION: BIRADS 1, NEGATIVE RECOMMENDATION: Follow Up Mammogram ??in 1 Year I have personally reviewed the image and initial interpretation and agree with the findings. Edison Tam MD IMG MAMMOGRAPHY ORDERABLES documented in this encounter Visit Diagnoses Not on filedocumented in this encounter Care Teams Gas Regulator Repairer Relationship Specialty Start Date End Date Edison Tam MD PCP - General Family Practice 09/21/11 07/22/14 909 [facility] 4 [place] [address] documented as of this encounter
--- OUTSIDE RECORDS SUMMARY | 2021-10-24 12:08 | XMS_ITS | Encounter Summary ---
:1955 Author Organization [place] Address [facility] [place] [address] Care Team Providers Name Role Phone Edison Tam MD Primary Care Provider Encounter Details Date Type Department Care Team Description 12/14/2011 Orders Only [facility] Ike Oliver Right wrist fracture [facility] MD [facility] XX RETIRED XX 1st Floor, [address] [address] [place], [place] [phone] (Work) [phone] Social History Tobacco Use Types Packs/Day Years [...] Name Priority Date/Time Associated Diagnosis Comme nts O WRIST,G/E 3VIEWS Routine 12/14/2011 11:36 AM Right wrist fra cture Results for this RIGHT CDT procedure are i n the results section. documented in this encounter Results Ortho X-ray RT wrist g/e 3 vw (12/14/2011 11:36 AM CDT) Anatomical Region Laterality Modality Computed Radiography Specimen (Source) Anatomical Collection Method Collection Time Re ceived Time Location / / Volume Laterality 12/14/2011 11:36 AM CDT Impressions 12/14/2011 12:28 PM CDT EXAMINATION: Right wrist 3 views DATE: 12/14/2011 HISTORY: Carpal fracture. FINDINGS: 3 views of the right wrist are compared to 12/03/2011. Alignment of the right wrist remains nor mal. There is an ununited fracture of the ulnar styloid. A predomi nantly transverse fracture of the right distal radius is again noted, with neutral angulation of the distal radial articular surface. No change in alignment is observed. No scaphoid fracture is seen. IMPRESSION: 1. Predominantly transverse fracture of the right distal radius, which is unchanged in alignment. This is at least subacute. An old ununited fracture of the ulnar styloid i s also noted. Ike Oliver MD IMG DIAGNOSTIC IMAGING ORDER EB documented in this encounter Visit Diagnoses Diagnosis Right wrist fracture Unspecified closed fracture of carpal ricki ne documented in this encounter Care Teams Verification Lead Relationship Specialty Start Date End Date Edison Tam MD PCP - General Family Practice 09/21/11 07/22/[address] [address] documented as of this encounter
--- OUTSIDE RECORDS SUMMARY | 2021-10-24 12:08 | XMS_ITS | Encounter Summary ---
:1955 Author Organization [place] Address [facility] [place]0 [facility] [place] [address] Care Team Providers Name Role Phone Edison Tam MD Primary Care Provider Encounter Details Date Type Department Care Team Description 12/18/2011 Medical Correspondence [facility], [facility] HISTORY- Health Info Mgmt [facility] [address] [place] [address] [place] [phone] Social History Tobacco Use Types Packs/Day Years Used Date Former Smoker 1 18 Smokeless Tobacco: Former User Q uit: 09/20/1991 Alcohol Use Standard Drinks/Week Comments No 0 (1 standard drink = 0.6 oz pure alcoho l) Sex Assigned at Date Recorded Not on file documented as of this encounter Miscellaneous Notes Initial Assessments - Ike Oliver MD - 12/18/2011 7:25 AM CDT documented in this encounter Plan of Treatment Not on filedocumented as of this encounter Visit Diagnoses Not on filedocumented in this encounter Care Teams Machine Wiper Relationship Specialty Start Date End Date Edison Tam MD PCP - General Family Practice 09/21/11 07/22/14 [address] [facility] 4 [place] [address] documented as of this encounter
--- OUTSIDE RECORDS SUMMARY | 2021-10-24 12:08 | XMS_ITS | Encounter Summary ---
:1955 Author Organization [place] Address [facility]0 [facility] [place] [address] Care Team Providers Name Role Phone Edison Tam MD Primary Care Provider Encounter Details Date Type Department Care Team Description 09/20/2011 Medical Correspondence [facility] Health Info Mgmt Edison Kennedy MD HEALTH HISTORY Srvcs 909 [facility], 09/20/[address] [place] [address] 4 [facility], [address] [place] [address] Social History Tobacco Use Types Packs/Day Years Used Date Former Smoker 1 18 Smokeless Tobacco: Former User Q uit: 09/20/1991 Alcohol Use Standard Drinks/Week Comments No 0 (1 standard drink = 0.6 oz pure alcoho l) Sex Assigned at Date Recorded Not on file documented as of this encounter Miscellaneous Notes Initial Assessments - Edison Tam MD - 09/24/2011 10:46 AM CDT documented in this encounter Plan of Treatment Not on filedocumented as of this encounter Visit Diagnoses Not on filedocumented in this encounter Care Teams Short Story Writer Relationship Specialty Start Date End Date Edison Tam MD PCP - General Family Practice 09/21/11 07/22/14 909 [facility] 4 [place] [address] documented as of this encounter
--- OUTSIDE RECORDS SUMMARY | 2021-10-24 12:08 | XMS_ITS | Encounter Summary ---
:1955 Author Organization [place] Address [address] [place] [address] Care Team Providers Name Role Phone Edison Tam MD Primary Care Provider Encounter Details Date Type Department Care Team Description 11/06/2011 Results Only [facility] Edison Tam, [facility] Results 909 [facility] 4 [place], [place] [phone] (Wo rk) Social History Tobacco Use Types [...] Diagnosis Comme nts US ABDOMEN COMPLETE Routine 11/06/2011 12:33 PM R esults for this CDT procedure are i n the results section. documented in this encounter Results US abdomen complete (11/06/2011 12:33 PM CDT) Anatomical Region Laterality Modality Abdomen/Pelvis Other Specimen (Source) Anatomical Collection Method Collection Time Re ceived Time Location / / Volume Laterality 11/06/2011 12:33 PM CDT Impressions 11/06/2011 12:38 PM CDT Examination: ??Complete abdominal ultras ound . Indication: ??Right renal lesion. ?? Comparison: None available. ?? Findings: There is no ascites. Visualized portions of the pancreas are unremarkable. ?? Liver shows normal echogenicity. It marques ures 12.8 cm in long axis. There is cholelithiasis. Wall thickness is 2.4 mm. Common bile duct is 9 mm in diameter. Right kidney shows a 1.2 cm ovoid hypere choic lesion in the superior pole.. It measures 9.8 cm in greatest le ngth. No shadowing stone or hydronephrosis. Left kidney shows normal echotexture. It measures 9.1 cm in greatest length. No shadowing stone or hydronephr osis. Spleen measures 8.5 cm. Aorta and Inferior vena cava are unremar kable. Impression: 1. Right renal 1.2 cm hyperechoic lesion . 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 ??However a renal cell carcin starr cannot be excluded. Recommend obtaining patient's prior imag ing. ??An MRI can be used for definitive diagnosis. 2. Cholelithiasis. Edison Tam MD IMG US ORDERABLES documented in this encounter Visit Diagnoses Not on filedocumented in this encounter Care Teams Frozen Meat Cutter Relationship Specialty Start Date End Date Edison Tam MD PCP - General Family Practice 09/21/11 07/22/[address] [address] documented as of this encounter
--- OUTSIDE RECORDS SUMMARY | 2021-10-24 12:08 | XMS_ITS | Encounter Summary ---
:1955 Author Organization [place] Address [address] [place] [address] Care Team Providers Name Role Phone Edison Tam MD Primary Care Provider Reason for Visit Reason Onset Date Comments Pre Visit Planning - Done 2011 Encounter Details Date Type Department Care Team Description 2011 Telephone UROLOGY CLINIC AND Rigoberto Brian e Visit Planning - BAIRON Ulrich MD Done PROSTATE AND UROLOGIC 909 [facility] [place] [address] [facility] [phone] (Wo rk) BUILDING 4TH FLOOR, [address] 5 420 [facility], [facility] [address] [place] [address] Social History Tobacco Use Types Packs/Day Years Used Date Former Smoker 1 18 Smokeless Tobacco: Former User Q uit: 09/20/1991 Alcohol Use Standard Drinks/Week Comments No 0 (1 standard drink = 0.6 oz pure alcoho l) Sex Assigned at Date Recorded Not on file documented as of this encounter Miscellaneous Notes Telephone Encounter - Sharri Ordoñez LPN - 2011 12:30 PM CDT Patient coming in d/t right kidney mass and referred from family practice. All records/images available and in Epic system documented in this encounter Plan of Treatment Not on filedocumented as of this encounter Visit Diagnoses Not on filedocumented in this encounter Care Teams Napper Grinder Relationship Specialty Start Date End Date Edison Tam MD PCP - General Family Practice 09/21/11 07/22/14 909 [facility] 4 [place] [address] documented as of this encounter
--- OUTSIDE RECORDS SUMMARY | 2021-10-24 12:08 | XMS_ITS | Encounter Summary ---
:1955 Author Organization [place] Address [address] [place] [address] Care Team Providers Name Role Phone Edison Tam MD Primary Care Provider Encounter Details Date Type Department Care Team Description 12/26/2011 [facility] Abstract, MRI C [facility] Imaging Center Provider [facility] en Building 1st Floor, Clinic 1D Mail [address] [place], [place] [phone] Social History Tobacco Use Types Packs/Day Years Used Date Former Smoker 1 18 Smokeless Tobacco: Former User Q uit: 09/20/1991 Alcohol Use Standard Drinks/Week Comments No 0 (1 standard drink = 0.6 oz pure alcoho l) Sex Assigned at Date Recorded Not on file documented as of this encounter Miscellaneous Notes Initial Assessments - Adilia Provider - 12/31/2011 11:23 AM CDT documented in this encounter Plan of Treatment Not on filedocumented as of this encounter Visit Diagnoses Not on filedocumented in this encounter Care Teams Business Consultant Relationship Specialty Start Date End Date Edison Tam MD PCP - General Family Practice 09/21/11 07/22/14 909 [facility] 4 [place], [place] [address] documented as of this encounter
--- OUTSIDE RECORDS SUMMARY | 2021-10-24 12:09 | XMS_ITS | Encounter Summary ---
:1955 Author Organization [place] Address [address] [place] [address]. [place] [address] Care Team Providers Name Role Phone Edison Tam MD Primary Care Provider Encounter Details Date Type Department Care Team Description 11/23/[address] [facility] An[facility] NOTES & Health Info Mgmt Edison Kennedy MD RESULTS, [facility] 909 [facility], [facility] 4 11/23/2009 [facility], [address] [place] [address] [phone] Social History Tobacco Use Types Packs/Day Years Used Date Never Assessed Sex Assigned at Date Recorded Not on file documented as of this encounter Plan of Treatment Not on filedocumented as of this encounter Visit Diagnoses Not on filedocumented in this encounter Care Teams Customer Service Agent Relationship Specialty Start Date End Date Edison Tam MD PCP - General Family Practice 09/21/11 07/22/14 909 [facility] 4 [place], [place] [address] documented as of this encounter
--- OUTSIDE RECORDS SUMMARY | 2021-10-24 12:09 | XMS_ITS | Encounter Summary ---
:1955 Author Organization [place] Address [address] [place] [address]. [place] [address] Care Team Providers Name Role Phone Edison Tam MD Primary Care Provider Encounter Details Date Type Department Care Team Description 03/15/2010 Medical Correspondence [facility] Unknown, MAMMOGRAM REPORT, Health Info Mgmt Provider 03/15/10 [facility] [address] [place] [phone] Social History Tobacco Use Types Packs/Day Years Used Date Never Assessed Sex Assigned at Date Recorded Not on file documented as of this encounter Plan of Treatment Not on filedocumented as of this encounter Visit Diagnoses Not on filedocumented in this encounter Care Teams Social Media Analyst Relationship Specialty Start Date End Date Edison Tam MD PCP - General Family Practice 09/21/11 07/22/[address] [place] [id number] documented as of this encounter
--- OUTSIDE RECORDS SUMMARY | 2021-10-24 12:09 | XMS_ITS | Encounter Summary ---
:1955 Author Organization [place] Address [address] [place] [address]. [place] [address] Care Team Providers Name Role Phone Edison Tam MD Primary Care Provider Encounter Details Date Type Department Care Team Description 05/21/2011 Medical Correspondence [facility] Anel [facility] NOTES & Health Info Mgmt Edison Kennedy MD RESULTS, 05/21/2011 [address]vcs [address] 4 [facility], [address] [place] [address] Social History Tobacco Use Types Packs/Day Years Used Date Never Assessed Sex Assigned at Date Recorded Not on file documented as of this encounter Plan of Treatment Not on filedocumented as of this encounter Visit Diagnoses Not on filedocumented in this encounter Care Teams Software Licensing Specialist Relationship Specialty Start Date End Date Edison Tam MD PCP - General Family Practice 09/21/11 07/22/14 909 [facility] 4 [place] [address] documented as of this encounter
--- OUTSIDE RECORDS SUMMARY | 2021-10-24 12:09 | XMS_ITS | Encounter Summary ---
:1955 Author Organization [place] Address [address] [place] [address]. [place] [address] Care Team Providers Name Role Phone Edison Tam MD Primary Care Provider Encounter Details Date Type Department Care Team Description 05/09/2011 Medical Correspondence [facility] [place] [facility] Unknown, LAB RESULTS, Health Info Mgmt Provider [facility], 05/09/[address] [place] [phone] Social History Tobacco Use Types Packs/Day Years Used Date Never Assessed Sex Assigned at Date Recorded Not on file documented as of this encounter Plan of Treatment Not on filedocumented as of this encounter Visit Diagnoses Not on filedocumented in this encounter Care Teams Plan Rep Relationship Specialty Start Date End Date Edison Tam MD PCP - General Family Practice 09/21/11 07/22/[address] [id number] documented as of this encounter
--- OUTSIDE RECORDS SUMMARY | 2021-10-24 12:09 | XMS_ITS | Encounter Summary ---
:1955 Author Organization [facility] Address [address] [place] [address]. [place] [address] Care Team Providers Name Role Phone Unavailable Primary Care Provider Unavailable Reason for Visit Reason Comments Crohns Encounter Details Date Type Department Care Team Description 09/20/2011 Office Visit Physicians, Primary Edison Tam Screening for depression (Primary Dx); Care Center MD Annabel Renal mass, right; 3rd Floor, Clinic 3A [address] [facility] Osteoporosis; [facility] 4 Vitamin D deficiencies; Building [place], [place] Crohn's disease of both smal l and large intestine with complication (H); [address] [facility] [place] [address] Yossi thyroiditis; [facility] 88 Fatigue; [place], [place] (Work) Dysuria; [id number] Thrush; Hyperglycemia; Dyspnea Social History Tobacco Use Types Packs/Day Years Used Date Former Smoker 1 18 Smokeless Tobacco: Former User Q uit: 09/20/1991 Alcohol Use Standard Drinks/Week Comments No 0 (1 standard drink = 0.6 oz pure alcoho l) Sex Assigned at Date Recorded Not on file documented as of this encounter Last Filed Vital Signs Vital Sign Reading Time Taken Comments Blood Pressure 110/60 09/20/2011 11:11 AM CDT Pulse 72 09/20/2011 11:11 AM CDT Temperature - - Respiratory Rate 18 09/20/2011 11:11 AM CDT Oxygen Saturation - - Inhaled Oxygen Concentration - - Weight 66.4 kg (146 lb 6.4 oz) 09/20/2011 11:11 AM CDT Height 156.8 cm (5' 1.75) 09/20/2011 11:11 AM CDT Body Mass Index 26.99 09/20/2011 11:11 AM CDT documented in this encounter Patient Instructions Patient InstructionsEdison Tam MD - 09/20/2011 12:43 PM CDT Please call to schedule your appointment at: Primary Care [phone] (3rd Floor PWB, [address]) Breast Center [phone] ([facility] 1st floor) Complete Radiology (Imaging Center) [phone] (1st Floor PWB, [address]) DEXA Screening Tool Dexa Scan Is the patient taking any calcium supplements? yes, if yes patient must stop calcium supplements 24 hours prior to appointment. Mammogram Screening Tool Mammogram Does patient have a history of breast cancer? no Does patient have breast implants? no Reason for mammogram? Routine documented in this encounter Progress Notes Edison Tam MD - 09/20/2011 11:41 AM CDT Maria E Norman is here for to establish primary care, follow up of chronic health conditions and discuss new symptoms. She has moved from [place] to live with her twin sister. This has caused distress as many of her possessions were damaged in the move, she is adjusting to living with controlling sister and she suffers from chronic illness. She has had recent increased anxiety and depression, currently seeing Dr Slaughter for cares. Dr Slaughter for mental health recently increased Wellbutrin, has been helpful. She has experienced grief after the of her 3 yo Cat. She is having several physical concerns: She has Crohn's disease, much of her bowel resected, management through [facility], Dr Beckman. She has been on chronic steroids since diagnosis. Last colonoscopy was 2008, she will schedule another. She hasexperienced extreme fatigue that irritates her sister, requires her to rest. She has some difficultybreathing at times not today. She is taking 5 hour energy. She has slight sore throat. I noticed coating on her tongue today, she denies tongue pain. Back pain and electrical pain from buttocks to right posterior leg. She has generalized weakness. She has had difficulty urinating, a feeling of impaired emptying. No pain. She does not know if she has fever. She has been sweating. She is owrried as she has had fistula in the past, no drainage. Shewould like me to look at her coccyx to make sure no ulcer or fistula. She needs labs for thyroid. She has Yossi thyroiditis, controlled currently now requiring levothyroxine replacement. ROS:Joint pain generalized, possible lupus like symptoms but negative for lupus in the past. She hasa right renal mass they have been following with ultrasound. Last mammogram 04/2009, colonoscopy 09/2008 Immunization record not available today Patient Active Problem List Diagnoses ??? Yossi thyroiditis ??? Crohn's disease of both small and large intestine with complication ??? Adjustment disorder with mixed anxiety and depressed mood ??? Fatigue ??? Renal mass, right Past Medical History Diagnosis Date ??? Crohn's 1977 on prednisone chronically ??? Osteoporosis ??? Fracture of wrist fall ??? Narcotic dependence, in remission rehab Past Surgical History Procedure Date ??? Appendectomy open 1985 ??? Small bowel resection 1985 colon and distal ilium ??? Sigmoidectomy left ovary removal ??? Back surgery 2008 L4-L5 laminectomy ??? Release carpal tunnel right Current Outpatient Prescriptions Medication ??? Cyanocobalamin (VITAMIN B-12 IJ) ??? METHOTREXATE [...] ??? rOPINIRole (REQUIP) 5 MG tablet ??? ergocalciferol (ERGOCALCIFEROL) 04809 UNIT capsule ??? Loperamide HCl (IMODIUM A-D PO) ??? Pseudoephedrine-Guaifenesin (MUCINEX D PO) ??? Calcium Citrate-Vitamin D (CITRACAL + D PO) ??? fluconazole (DIFLUCAN) 100 MG tablet Allergies Allergen Reactions ??? Penicillin [...] Social History Narrative [place] [facility] to live with Twin sister Joan [place]. [...] for pertinentpositives noted in my HPI. BP 110/60 Pulse 72 Resp 18 Ht 1.568 m (5' 1.75) Wt 66.407 kg (146 lb 6.4 oz) BMI 26.99 kg/m2 Constitutional: Oriented to person, place, and time. Vital signs are noted. Appropriately developed and nourished. Non-toxic appearance. No distress. Nicely dressed HENT: TM normal, Tongue coated with yellow - black thrush Head: Normocephalic and atraumatic. Mouth/Throat: Oropharynx is [...] breath sounds normal. No respiratory distress. Abdominal: Multiple scars, mild obesity Soft. Bowel sounds are normal. No distension and no mass. Notenderness. Musculoskeletal: Normal range of motion. No edema and no tenderness. Lymphadenopathy: No cervical adenopathy. Neurological: Alert and oriented to person, place, and time. Normal strength. No cranial nerve deficit or sensory deficit. DTR s normal Skin: coccyx no ulcer or fistula. Skin is warm and dry.Yeast Perineal rash noted. Erythema malar rash and telangectasis. No pallor. Psychiatric: Normal mood, affect and behavior is normal. Reuben Sanderson was seen today for crohns. Diagnoses and associated orders for this visit: Screening for depression - PHQ-9 ORDER - select when completing PHQ-9 Renal mass, right - US abdomen complete; Future Osteoporosis - Dexa hip/pelvis/spine*; Future - Comprehensive metabolic panel - Vitamin D Deficiency Vitamin d deficiencies Crohn's disease of both small and large intestine with complication - Vitamin D Deficiency Yossi thyroiditis - TSH with free T4 reflex Fatigue - Comprehensive metabolic panel - CBC with platelets differential - Vitamin D Deficiency - Vitamin B12 - Magnesium - Zinc - Vitamin B1 whole blood - Vitamin B6 - Mammo Screening digital (bilat); Future Dysuria - Routine UA with micro reflex to culture Thrush - fluconazole (DIFLUCAN) 100 MG tablet; Take 1 tablet by mouth daily. Hyperglycemia - Hemoglobin A1c Other Orders - Cyanocobalamin (VITAMIN B-12 IJ); Inject as directed. - METHOTREXATE SODIUM IJ; Inject as directed. - predniSONE 10 MG KIT; Take by mouth daily. - levothyroxine (LEVOTHROID) 75 MCG tablet; Take by mouth daily. - glimepiride (AMARYL) 1 MG tablet; Take 1 mg by mouth every morning (before breakfast). - BUPROPION HCL PO; Take 300 mg by mouth daily. - propranolol (INDERAL) 20 MG tablet; Take 20 mg by mouth daily. - ALPRAZolam (XANAX XR) 2 MG 24 hr tablet; Take 2 mg by mouth every morning. - DULoxetine (CYMBALTA) 60 MG capsule; Take by mouth daily. - folic acid (FOLVITE) 1 MG tablet; Take 1 mg by mouth daily. - Potassium (POTASSIMIN PO); Take by mouth daily. - rOPINIRole (REQUIP) 5 MG tablet; Take 5 mg by mouth 2 times daily. - ergocalciferol (ERGOCALCIFEROL) 11893 UNIT capsule; Take 50,000 Units by mouth every 3 days. - Loperamide HCl (IMODIUM A-D PO); Take by mouth. 8-10 tablets daily Unknown dose - Pseudoephedrine-Guaifenesin (MUCINEX D PO); Take by mouth daily. - Calcium Citrate-Vitamin D (CITRACAL + D PO); Take 2 tablets by mouth daily. I reviewed her exam show thrush in her mouth, candidal rash buttocks and vulvar region. Will treat with 3 day Diflucan. Baseline labs and follow-up. She did not need medications refilled at this time. She may need Chest XRAY at some point. All questions were addressed and voiced understanding and agreement with the above. Edison Tam documented in this encounter Plan of Treatment Not on filedocumented as of this encounter Procedures Procedure Name Priority Date/Time Associated Diagnosis Comme nts ZINC Routine 09/20/2011 1:24 Fatigue Results for this PM CDT procedure are i n the results section. CBC WITH PLATELETS & Routine 09/20/2011 1:24 Fatigue Resu lts for this DIFFERENTIAL PM CDT procedure are i n the results section. VITAMIN D DEFICIENCY Routine 09/20/2011 1:24 Osteoporosi s Results for this SCREENING PM CDT Crohn's disease of procedure are in both small and large the res ults intestine with section. complication (H) Fatigue VITAMIN B6 Routine 09/20/2011 1:24 Fatigue Results for this PM CDT procedure are i n the results section. VITAMIN B1 WHOLE Routine 09/20/2011 1:24 Fatigue Results for this BLOOD PM CDT procedure are i n the results section. TSH WITH FREE T4 Routine 09/20/2011 1:24 Yossi thyroiditis Results for this REFLEX PM CDT procedure are i n the results section. MAGNESIUM Routine 09/20/2011 1:24 Fatigue Results for this PM CDT procedure are i n the results section. HEMOGLOBIN A1C Routine 09/20/2011 1:24 Hyperglycemia Results f or this PM CDT procedure are i n the results section. COMPREHENSIVE Routine 09/20/2011 1:24 Osteoporosis Results for this METABOLIC PANEL PM CDT Fatigue procedure ar e in the results section. VITAMIN B12 Routine 09/20/2011 1:24 Fatigue Results for this PM CDT procedure are i n the results section. ROUTINE UA WITH Routine 09/20/2011 1:09 Dysuria Results f or this MICROSCOPIC REFLEX TO PM CDT proced ure are in CULTURE the results section. documented in this encounter Results Hemoglobin A1c (09/20/2011 1:24 PM CDT) athologist Signature Hemoglobin A1C 5.4 4.3 - 6.0 [facility] Specimen Anatomical Collection Method Collection Time Receive d Time (Source) Location / / Volume Laterality Blood specimen 09/20/2011 1:24 PM 012 1:27 (specimen) CDT PM CDT Edison Tam MD LAB - BLOOD ORDERABLES Performing Organization Address City/[facility] Code Phon e Number [address] LABS (ABNORMAL) Vitamin B6 (09/20/2011 1:24 PM CDT) athologist Signature Vitamin B6 233.7 (H) [facility] Comment: Reference range: 20.0 to 125.0 Unit: nmol/L (Note) INTERPRETIVE INFORMATION: Vitamin B6 (Py ridoxal 5-Phosphate) Pyridoxal 5'-phosphate measured in a james ple collected following an 8 hour or overnight fast ac curately indicates vitamin B6 nutritional status. Non-fasti ng sample concentration reflects recent vitamin in take. Performed by [facility], [address] [place] [id number] [email or web address], Dodie Cotter MD, Lab. Director Specimen Anatomical Collection Method Collection Time Receive d Time (Source) Location / / Volume Laterality Blood specimen 09/20/2011 1:24 PM 012 1:26 (specimen) CDT PM CDT Edison Tam MD LAB - BLOOD ORDERABLES Performing Organization Address [facility] Phon e Number [address] LABS Vitamin B1 whole blood (09/20/2011 1:24 PM CDT) athologist Signature Vitamin B1 137 [facility] Blood [place] [facility] Level Comment: Reference range: 70 to 180 Unit: nmol/L (Note) INTERPRETIVE INFORMATION: Vitamin B1, Wh ole Blood The concentration of thiamine diphosphat e (TDP), the primary active form of vitamin B1, is me asured in this assay. Approximately 90% of vitamin B1 p resent in whole blood is TDP. Thiamine and thiamine mono phosphate, which comprise the remaining 10%, are not marques ured. Performed by [facility], [address] [facility] [place] [address] [email or web address], Dodie Cotter MD, Lab. Director Specimen Anatomical Collection Method Collection Time Receive d Time (Source) Location / / Volume Laterality Blood specimen 09/20/2011 1:24 PM 012 1:26 (specimen) CDT PM CDT Edison Tam MD LAB - BLOOD ORDERABLES Performing Organization Address [facility] Phon e Number [address] LABS Zinc (09/20/2011 1:24 PM CDT) athologist Signature Zinc [address] [place] [address] LABS Comment: Reference range: 60 to 120 Unit: ug/dL (Note) INTERPRETIVE INFORMATION: Zinc, Serum Circulating zinc concentrations are depe ndent on albumin status and are depressed with malnutriti on. Zinc may also be lowered with infection, inflammation, stress, oral contraceptives, and . Zinc may be elevated with zinc supplementation or fasting. Elevate d zinc concentrations may interfere with copper absorption. Performed by [facility], [address] [facility] [place] [address] [email or web address], Dodie Cotter MD, Lab. Director Specimen Anatomical Collection Method Collection Time Receive d Time (Source) Location / / Volume Laterality Blood specimen 09/20/2011 1:24 PM 012 1:26 (specimen) CDT PM CDT Edison Tam MD LAB - BLOOD ORDERABLES Performing Organization Address [facility] Phon e Number [address] LABS (ABNORMAL) Magnesium (09/20/2011 1:24 PM CDT) athologist Signature Magnesium 2.4 (H) 1.6 - 2.3 [facility] mg/dL C[facility] LABS Specimen Anatomical Collection Method Collection Time Receive d Time (Source) Location / / Volume Laterality Blood specimen 09/20/2011 1:24 PM 012 1:26 (specimen) CDT PM CDT Edison Tma MD LAB - BLOOD ORDERABLES Performing Organization Address City/[facility]/ZIP Code Phon e Number [address] LABS Vitamin B12 (09/20/2011 1:24 PM CDT) athologist Signature Vitamin B12 295 >210 pg/mL [facility] LABS Comment: Interp: [phone] = Normal Specimen Anatomical Collection Method Collection Time Receive d Time (Source) Location / / Volume Laterality Blood specimen 09/20/2011 1:24 PM 012 1:26 (specimen) CDT PM CDT Edison Tam MD LAB - BLOOD ORDERABLES Performing Organization Address City/[facility]/ZIP Code Phon e Number [address] LABS (ABNORMAL) Vitamin D Deficiency (09/20/2011 1:24 PM CDT) athologist Signature 25 [place] Vit D 21 (L) 30 - 75 [facility] total ug/L [facility] Comment: Season, race, dietary intake, and treatm ent affect the concentration of 97-dcpvcbk-Zdcoyla D. Values may decrea se during winter months and increase during summer months. Values less than 30 ug/L may indicate Vitamin D deficiency. Vitamin D determination is routinely pe rformed by an immunoassay specific for 25 hydroxyvitamin D3. If an individual is on vitamin D2 (ergocalciferol) supplementation, please specify 25 [place] v itamin D2 and D3 level determination by LCMSMS. For questions, please contact [facility] at [phone]. Specimen Anatomical Collection Method Collection Time Receive d Time (Source) Location / / Volume Laterality Blood specimen 09/20/2011 1:24 PM 012 1:26 (specimen) CDT PM CDT Edsion Tam MD LAB - BLOOD ORDERABLES Performing Organization Address City/State/ZIP Code Phon e Number [address] [address] [facility] ([facility]NORMAL) CBC with platelets differential (09/20/2011 1:24 PM CDT) [facility] gist Method Time Signature WBC 7.3 4.0 - [facility] 11.0 [facility]/L [facility] LABS RBC Count 4.78 3.8 - 5.2 [facility] 10e12/L [facility] Hemoglobin 14.2 11.7 - [facility] 15.7 g/dL [facility] Hematocrit 43.8 35.0 - [facility] 47.0 % [facility] MCV 92 78 - 100 [facility] fl [facility] MCH 29.7 26.5 - [facility] 33.0 pg [facility] MCHC 32.4 31.5 - [facility] 36.5 g/dL [facility] RDW 14.4 10.0 - [facility] 15.0 % [facility] Platelet Count 246 150 - 450 [facility] 10e9/L [facility] Diff Method Automated [facility] Method [facility] % Neutrophils 80.7 (H) 40 - 75 % [facility] LAB[facility] % Lymphocytes 8.8 (L) 20 - 48 % [facility] % Monocytes 9.1 0 - 12 % [facility] % Eosinophils 0.8 0 - 6 % [facility] % Basophils 0.3 0 - 2 % [facility] % Immature 0.3 0 - 0.4 % [facility] Granulocytes [facility] Absolute 5.9 1.6 - 8.3 [facility] Neutrophil 10e9/L [facility] Absolute 0.6 (L) 0.8 - 5.3 [facility] Lymphocytes 10e9/L [facility] Absolute 0.7 0.0 - 1.3 [facility] Monocytes 10e9/L [facility] Absolute 0.1 0.0 - 0.7 [facility] Eosinophils 10e9/L [facility] Absolute 0.0 0.0 - 0.2 [facility] Basophils 10e9/L [facility] Abs Immature 0.0 0 - 0.03 [facility] Granulocytes 10e9/L [facility] Specimen Anatomical Collection Method Collection Time Receive d Time (Source) Location / / Volume Laterality Blood specimen 09/20/2011 1:24 PM 012 1:26 (specimen) CDT PM CDT Edison Tam MD LAB - BLOOD ORDERABLES Performing Organization Address City/State/ZIP Code Phon e Number [facility] [address] LABS Comprehensive metabolic panel (09/20/2011 1:24 PM CDT) athologist Signature Sodium 138 133 - 144 [facility] mmol/L [facility] Potassium 4.1 3.4 - 5.3 [facility] mmol/L [facility] Chloride 103 94 - 109 [facility] mmol/L [facility] Carbon Dioxide 26 20 - 32 [facility] mmol/L [facility] Anion Gap 10 6 - 17 [facility] mmol/L [facility] Glucose 85 60 - 99 [facility] mg/dL [facility] Urea Nitrogen 10 7 - 30 [facility] mg/dL [facility] Creatinine 0.88 0.52 - [facility] 1.04 mg/dL [facility] GFR Estimate 66 >60 [facility] mL/min/1.7 [place] m2 [facility]AMPUS LABS GFR Estimate If 80 >60 [facility] Black mL/min/1.7 [place] [id number] CAMPUS LABS Calcium 8.8 8.5 - 10.4 [facility] mg/dL [facility] Bilirubin Total 0.5 0.2 - 1.3 [facility] mg/dL [facility] Albumin 4.5 3.3 - 4.9 [facility] g/dL [facility] Protein Total 7.4 6.8 - 8.8 [facility] g/dL [facility] Alkaline 86 40 - 150 [facility] Phosphatase U/L [facility] ALT 23 0 - 50 U/L [facility] AST 30 0 - 45 U/L [facility] Specimen Anatomical Collection Method Collection Time Receive d Time (Source) Location / / Volume Laterality Blood specimen 09/20/2011 1:24 PM 012 1:26 (specimen) CDT PM CDT Edison Tam MD LAB - BLOOD ORDERABLES Performing Organization Address City/State/ZIP Code Phon e Number [facility] [address] [place], [place] [phone] [place] [address] LABS TSH with free T4 reflex (09/20/2011 1:24 PM CDT) P athologist Signature TSH 0.44 0.4 - 5.0 [facility] mU/L [facility] LAB[facility] Specimen Anatomical Collection Method Collection Time Receive d Time (Source) Location / / Volume Laterality Blood specimen 09/20/2011 1:24 PM 012 1:26 (specimen) CDT PM CDT Edison Tam MD LAB - BLOOD ORDERABLES Performing Organization Address City/[facility]/ZIP Code Phon e Number [phone] [place] [address] LABS (ABNORMAL) Routine UA with micro reflex to culture (09/20/2011 1:09 PM CDT) Patholo gist Method Time Signature Color Urine Yellow [facility] LABS Appearance Urine Clear [facility] Glucose Urine Negative NEG mg/dL [facility]S Bilirubin Urine Negative NEG [facility]S Ketones Urine Negative NEG mg/dL [facility] Specific [place] 1.016 1.003 - [facility] Urine 1.035 [facility] Blood Urine Negative NEG [facility]S pH Urine 5.5 5.0 - 7.0 [facility] pH [place] [facility] Protein Albumin Negative NEG mg/dL [facility] Urine [facility] Urobilinogen Normal 0.0 - 2.0 [facility] mg/dL mg/dL [facility] Nitrite Urine Negative NEG [facility] Leukocyte Negative NEG [facility] Esterase Urine [facility] Source Midstream [facility]rine [facility] WBC Urine 1 0 - 2 [facility] /HPF [facility] RBC Urine <1 0 - 2 [facility] /HPF [place] [facility] Squamous 1 0 - 1 [facility] Epithelial /HPF /HPF [facility] Urine [facility]AMP[facility] LABS Mucous Urine Present (A) NEG /LPF [facility] Specimen Anatomical Collection Method Collection Time Receive d Time (Source) Location / / Volume Laterality Urine specimen 09/20/2011 1:09 PM 012 1:10 (specimen) CDT PM CDT Edison Tam MD LAB - URINE ORDERABLES Performing Organization Address City/[facility]/ZIP Code Phon e Number [address] [address] [facility] LABS documented in this encounter Visit Diagnoses Diagnosis Screening for depression - Primary Renal mass, right Unspecified disorder of kidney and urete r Osteoporosis Osteoporosis, unspecified Vitamin D deficiencies Unspecified vitamin D deficiency Crohn's disease of both small and large intestine with complication (H) 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
--- OUTSIDE RECORDS SUMMARY | 2021-10-24 12:09 | XMS_ITS | Encounter Summary ---
:1955 Author Organization [facility] Address [address] [place] [address] Care Team Providers Name Role Phone Unavailable Primary Care Provider Unavailable Reason for Visit Reason Onset Date Comments Pre Visit Planning - Unable To Reach 09/19/2011 Encounter Details Date Type Department Care Team Description 09/19/2011 PRE VISIT [facility], Primary Edison Tam Pre Visit Planning - Care Coral MD Marcia Unable To Reach 3rd Floor, Clinic [address] [place] [id number] [place] [address] [place], [place] (Work) [address] [phone] Social History Tobacco Use Types Packs/Day Years Used Date Never Assessed Sex Assigned at Date Recorded Not on file documented as of this encounter Miscellaneous Notes Telephone Encounter - Dee Cancino - 09/19/2011 12:48 PM CDT Pre-visit planning completed for this patient. * Patient was notified of the construction that surrounds the Center and the extra time they mayneed to get to us and also parking. *Medication list reviewed and/or updated Medication were updated in [facility] from: (Pick all that apply) No records found * Pharmacy was updated in [facility]. * Patient was instructed to bring in any refill request at the time of their appointment. * Patient was instructed to come to their appointment fasting for lab work. * Immunization record was reviewed and/or updated Immunization were updated in [facility] from: (pick all that apply) From [employer] * Patient was instructed to bring in or have any outside medication records faxed to [facility] prior to their appointment. * Patients pre op information was gathered and /or they were informed to bring the information to their appointment. documented in this encounter Plan of Treatment Not on filedocumented as of this encounter Visit Diagnoses Not on filedocumented in this encounter
--- NOTE | 2021-10-24 13:47 | W.ANESCHARGE ---
Anesthesia Charges Start Date/Time Anesthesia Start Date: 10/24/21 Anesthesia Start Time: 12:54 Stop Date/Time Anesthesia Stop Date: 10/24/21 Anesthesia Stop Time: 13:45 Summary Emergency: No
--- NOTE | 2021-10-24 14:02 | W.ANESCHARGE ---
Anesthesia Charges Start Date/Time Anesthesia Start Date: 10/24/21 Anesthesia Start Time: 12:54 Stop Date/Time Anesthesia Stop Date: 10/24/21 Anesthesia Stop Time: 13:45 Summary Emergency: No
[2021-10-24 14:43] LABS: Basophils Absolute Auto 0.04 K/uL (0.00-0.30); Basophils Percent Auto 0.5 % (0.0-3.0); Eosinophils Absolute Auto 0.06 K/uL (0.00-0.50); Eosinophils Percent Auto 0.8 % (0.0-7.0); Hematocrit 44.8 % (33.0-51.0); Hemoglobin* 14.8 gm/dL (12.0-16.0); Immature Granulocytes Abs Auto 0.02 K/uL (0.00-0.30); Mean Corpuscular HGB Conc 33 gm/dL (32-36); Mean Corpuscular Hemoglobin 30 pg (26-34); Mean Corpuscular Volume 90 fL (80-100); Monocytes Percent Auto 12.9 % (0.0-11.0); Neutrophils Absolute Auto 4.92 K/uL (1.7-7.0); Neutrophils Percent Auto 65.5 % (42.0-72.0); Platelet Count* 234 K/uL (140-440); RDW Coefficient of Variation % 12.5 % (11.5-15.5); Red Blood Count 4.98 m/uL (4.00-5.20); White Blood Count* 7.51 K/uL (4.50-11.00)
[2021-10-24 14:51] LABS: Slide Review Reflex No
[2021-10-24 14:55] LABS: Albumin* 4.3 g/dL (3.3-5.0); Chloride* 109 mmol/L (96-114)
[2021-10-24 14:56] LABS: Potassium* 3.9 mmol/L (3.6-5.1); Sodium* 138 mmol/L (135-149)
[2021-10-24 14:58] LABS: Aspartate Amino Transferase* 55 U/L (12-35); Bilirubin Direct* 0.2 mg/dL (0.0-0.5); Bilirubin Total* 0.2 mg/dL (0.1-1.5); Blood Urea Nitrogen* 11 mg/dL (7-30); Carbon Dioxide* 12 mmol/L (20-32); Creatinine* 1.1 mg/dL (0.5-1.5); Estimated Glomerular Filt Rate 55 ml/min; Total Protein* 6.8 g/dL (6.0-8.3)
[2021-10-24 14:59] LABS: Alanine Aminotransferase* 33 U/L (4-35); Alkaline Phosphatase* 52 U/L (40-150); Calcium* 8.1 mg/dL (8.4-10.6); Glucose* 69 mg/dL (60-115); Lipase* 189 U/L (23-300)
--- NOTE | 2021-10-24 15:49 | PM.EN ---
Chart Event Note Chart Event Note: Patient is status post upper endoscopy and colonoscopy today. And she presented today she was noted to be nauseated for the past 2 days. It was felt to be secondary to the bowel prep and dehydration. She underwent upper endoscopy with biopsies and colonoscopy without incident. After the procedure her nausea was significantly more severe and she was having low back pain. Denied Abdominal pain. On exam heart rate was mildly elevated around 100. Blood pressure within normal limits. General: Patient is somewhat frail appearing Abdomen: Soft, nontender, nondistended Back: No CVA tenderness. Pain is centered around her low lumbar spine. I did initially ask the hospitalists to see the patient whether not it would be useful to admit the patient given her significant persistent nausea. It was felt that perhaps workup in the emergency department may be warranted. In the meantime I ordered CBC, BMP, lipase and LFTs. Labs were remarkable for a bicarb of 12. Anion gap is 17. This is markedly abnormal. Differential includes lactic acidosis, but more likely ketoacidosis. The patient states that she has only been on clear liquids for 5 days. She was given Zofran, Benadryl and Toradol for her back pain. After this she felt markedly better and wished to return home. She was given a L of lactated Ringer's and was able to tolerate food. Urinalysis showed 4+ ketones, confirming this. Since she was feeling better I felt it appropriate for her to return home with instructions to eat and rehydrate with electrolyte solution, however if she had worsening nausea, vomiting or inability to eat, she should return to the emergency department MARNIE. She should follow up with PCP within 1 week to recheck labs.
[2021-10-24 15:56] LABS: Appearance Urine Clear (Clear); Bilirubin Urine 1+ (Negative); Blood Urine Trace-intact (Negative); Color Urine Yellow (Yellow); Glucose Urine Negative (Negative); Ketones Urine 4+ (Negative); Leukocyte Esterase Urine Negative (Negative); Nitrite Urine Negative (Negative); Protein Urine 1+ (Negative); Specific Gravity Urine >= 1.030 (1.000-1.030); Urobilinogen Urine 0.2 (0.2-1.0); pH Urine 5.5 (5.0-8.5)
[2021-10-24 16:09] LABS: Bacteria Urine Few; Hyaline Casts Urine Few (None-Few); Squamous Epithelial Cell Urine Many (None-Few)
== END 2021-10-24 11:55 | disposition home or self-care (01) ==
PROVIDERS: PCP Family Medicine; Visit Provider Surgery
DX: R11.0 Nausea (principal); E03.9 Hypothyroidism, unspecified
CPT/HCPCS: 00813; 36415; 43239; 45378; 80048; 80076; 81003; 81015; 83690; 85025; 87086; 88305; J1200; J1885; J2405; J2704; J3010

== ENCOUNTER 2021-10-26 13:28 | Outpatient (CLI) | payer MEDICARE, OTHER, SELFPAY ==
--- OUTSIDE RECORDS SUMMARY | 2021-10-26 13:30 | XMS_ITS | Clinical Summary ---
:1955 Author Organization [place] Address [facility] [place] [address] Care Team Providers Name Role Phone Edison Tam MD Primary Care Provider Sheri Casey MD Unavailable Amita Ryan MD Unavailable Sid Lilly MD Unavailable [phone] Allergies Active Allergy Reactions Severity Noted [...] this topic Medical Devices Implanted Type Area Trade Economist Device Shelf Model / Identifier Expiration Serial / Date Lot Nerve Guide [id number] Neuragen Png-220 Charge Per Cm= 2 Units Left: [employer] 01/08/2015 PNG-220 / Implanted: Qty: 1 on 04/16/2013 by Marisol Pratt MD at [facility] Thumb LIFESCIENC / [id number] Description: INDEX FINGER Insurance Payer Benefit Plan / Subscriber ID Effective Phone Address T ype Group Dates MEDICA MEDICA PRIME [id number] 2012-Prese [phone] [address] Indemnity SOLUTION [address] [place] [address] MEDICARE MEDICARE FOR HB [id number] 1984-Pres [phone] ATTN CLAIMS Medicare SUPPLEMENT ent 40 [address] [place] [address] Maria E Coley Personal/Family Self [address] (Home) [place] [address] Advance Directives For more information, please contact: [phone] Latest Code Status on File Code Status Date Activated Date Inactivated Comments Full Code 02/06/2012 11:20 AM 02/06/2012 7:13 PM Full Code 01/21/2012 7:33 PM 01/22/2012 8:29 PM Full Code 12/03/2011 5:37 PM 01/21/2012 7:33 PM Full Code 12/03/2011 10:30 AM 12/03/2011 5:37 PM Care Teams Bracer Relationship Specialty Start Date End Date Edison Tam MD PCP - General Family Practice 07/23/14 9[address] [facility] [address] 4 [place], [place] [address] Sheri Casey MD MD Pulmonary Disease 07/23/14 [address] [facility] 276 [place], [place] [id number] Amita Ryan MD MD Internal Medicine 12/19/15 909 [facility] [id number] [place] [address] Sid Lilly MD MD Orthopaedic Surgery 02/22/[address] [facility] [address] [place] [address]
--- OUTSIDE RECORDS SUMMARY | 2021-10-26 13:30 | XMS_ITS | Encounter Summary ---
:1955 Author Organization [place] Address [address] [place] [address] Care Team Providers Name Role Phone Edison Tam MD Primary Care Provider Sheri Casey MD Unavailable Roland Holt MD Unavailable Amita Ryan MD Unavailable Sid Lilly MD Unavailable Reason for Visit Reason Onset Date Comments Refill Request 09/14/2018 levothyroxine (SYNTH ROID/LEVOTHROID) 25 MCG tablet Encounter Details Date Type Department Care Team Description 09/14/2018 Refill M [facility] Endocrinolo Laisha Moraes, Refill Request 909 [facility] SE (levothyroxine 3rd Floor 420 [facility] (SYNTHROID/LEVOTHROID) [place], [place] [address] 25 MCG tablet) [id number] [place] [address] (Wo rk) Social History Tobacco [...] Pt is getting her medical care in [place]. ( my chart message 05-19-18) Will call [...] documented as of this encounter Care Teams Sand Cutter Operator Relationship Specialty Start Date End Date Edison Tam MD PCP - General Family Practice 07/23/14 909 [facility] 4 [place], [place] [address] Sheri Casey MD MD Pulmonary Disease 07/23/14 420 [facility] 276 [place], [place] [address] Roland Holt MD Resident Student in [facility] 05/12/1509/24 care education/training program Amita Ryan MD MD Internal Medicine 12/19/15 909 [facility] [id number] [place], [place] 1584[address] Sid Lilly MD Orthopaedic Surgery 02/22/16 MD Alivia [facility] [address] [place], [place] [address] documented as of this encounter
--- OUTSIDE RECORDS SUMMARY | 2021-10-26 13:31 | XMS_ITS | Encounter Summary ---
:1955 Author Organization [place] Address [address] [place] [address] Care Team Providers Name Role Phone Edison Tam MD Primary Care Provider Sheri Casey MD Unavailable Alphonso Billy MD Unavailable Roland Holt MD Unavailable Amita Ryan MD Unavailable Sid Lilly MD Unavailable Neda Boland RN Unavailable Reason for Visit Reason Comments Medication Refill Levothyroxine Sodium 50 MCG CAPS Encounter Details Date Type Department Care Team Description 05/30/2017 Refill [facility] Primary Care Edison Tam edication Refill Clinic MD Marcia (Levothyroxine Sodium 50 909 [facility] SE 909 [facility] [place] MCG CAPS ) 4th Floor 4 [place] [address] [id number] (Wo rk) Social History Tobacco Use Types [...] at that time. She had been taking [id number] daily, but isn't sure that that is the correct dose anymore. On her own she has decreased it to 25mcg daily, as she feels that a different amount has been needed since stopping prednisone. TSH was done 04/22/17 with result of 3.72. Does not need anything at this time and will discuss all of this with steam heating installer. Telephone Encounter - Ainsley Clarke RN - [...] documented as of this encounter Care Teams Civil Litigation Attorney Relationship Specialty Start Date End Date Edison Tam, PCP - General Family Practice 07/23/14 909 [facility] 4 [place] [address] Sheri Casey MD Pulmonary Disease 07/23/14 420 [facility] 276 [place] [address] Alphonso Billy MD Cardiology 08/12/14 8 420 [place], [place] [id number] Roland Holt MD Resident Student in [facility] 05/12/15 09/24/18 health care education/training program Amita Ryan MD MD Internal Medicine 12/19/15 909 [facility] [id number] [place], [place] [address] Sid Lilly MD Orthopaedic Surgery 02/22/16 MD Alivia [facility] [address] [place], [place] [address] Neda Boland, NANDINI Nurse Coordinator Neurology 02/23/16 09/01/18 documented as of this encounter
--- OUTSIDE RECORDS SUMMARY | 2021-10-26 13:31 | XMS_ITS | Encounter Summary ---
:1955 Author Organization [place] Address [address] [place] [address] Care Team Providers Name Role Phone Edison Tam MD Primary Care Provider Sheri Casey MD Unavailable Roland Holt MD Unavailable Amita Ryan MD Unavailable Sid Lilly MD Unavailable [phone] Neda Boland RN Unavailable Reason for Visit Reason Onset Date Comments Pt. Information/instruction 08/18/2018 Encounter Details Date Type Department Care Team Description 08/18/2018 Telephone [facility] Primary Care Edison Tam. Sybil Kennedy MD Information/instruction [address] [place] [phone] [id number] Social History Tobacco Use Types Packs/Day Years [...] Domínguez, Kyla - 08/18/2018 4:06 PM CDT [facility] Call Center Phone Message May a detailed [...] documented as of this encounter Care Teams Advertising Teacher Relationship Specialty Start Date End Date Edison Tam, PCP - General Family Practice 07/23/[address] [place] [address] 4 [place], [place] [address] Sheri Casey MD Pulmonary Disease 07/23/14 420 [facility] 276 [place], [place] [address] Roland Holt MD Resident Student in [facility] 05/12/15 09/24/18 [facility] education/training program Amita Ryan MD MD Internal Medicine 12/19/15 [address] [facility] [id number] [place] [address] Sid Lilly MD Orthopaedic Surgery 02/22/16 MD Alivia [address] [place], [place] [address] Neda Boland, NANDINI Nurse Coordinator Neurology 02/23/16 09/01/18 documented as of this encounter
--- OUTSIDE RECORDS SUMMARY | 2021-10-26 13:31 | XMS_ITS | Encounter Summary ---
:1955 Author Organization [place] Address [address] [place] [address] Care Team Providers Name Role Phone Edison Tam MD Primary Care Provider Sheri Casey MD Unavailable Alphonso Billy MD Unavailable Roland Holt MD Unavailable Amita Ryan MD Unavailable Sid Lilly MD Unavailable [phone] Neda Boland RN Unavailable Encounter Details Date Type Department Care Team Description 09/02/2017 Orders Only [facility] Laisha Moraes Yossi's thyroiditis (Primary Dx); Endocrinology A, Hypocalcemia; [address] [place] [address] 420 [facility] Senile osteoporosis; 3rd Floor [facility] 101 History [place] [address] [phone] Social History Tobacco Use Types Packs/Day Years [...] documented as of this encounter Care Teams Editing Computer Publisher Relationship Specialty Start Date End Date Edison Tam, PCP - General Family Practice 07/23/[address] 4 [place], [place] [address] Sheri Casey MD Pulmonary Disease 07/23/[address] [place] [address] [facility] 276 [place], [place] [address] Alphonso Billy MD Cardiology 08/12/[address] [place] [address] 611245 Roland Holt MD Resident Student in [facility] 05/12/15 09/24/18 health [facility] education/training program Amita Ryan MD MD Internal Medicine 12/19/[address] [place] [address] [id number] [place], [place] [address]13[address] Sid Lilly MD Orthopaedic Surgery 02/22/16 MD Alivia [address] [place], [place] [address] Neda Boland, NANDINI Nurse Coordinator Neurology 02/23/16 09/01/18 documented as of this encounter
--- OUTSIDE RECORDS SUMMARY | 2021-10-26 13:31 | XMS_ITS | Encounter Summary ---
:1955 Author Organization [place] Address [facility] [place] [address] Care Team Providers Name Role Phone Edison Tam MD Primary Care Provider Sheri Casey MD Unavailable Alphonso Billy MD Unavailable Roland Holt MD Unavailable Amita Ryan MD Unavailable Sid Lilly MD Unavailable [phone] Neda Boland RN Unavailable Reason for [...] MD Sleep Medicine Procedures NEW REFERRED INSIDE [address] [address] Phone: Fax: Referral ID Status Reason Start Date Expiration Date Visits Requ ested Visits Authorized [id number] Closed 05/09/2017 05/09/2018 1 1 Encounter Details Date Type Department Care Team Description 05/09/2017 Office Visit [facility] Will Harper MD [facility] [address] [place] [address] [facility] syndrome (RLS) [place] [address] (Primary Dx) [address] [place] [address] [phone] Social History Tobacco Use Types Packs/Day Years [...] Comments Blood Pressure 108/70 05/09/2017 12:25 PM SALT MANAGER Pulse 99 05/09/2017 12:25 PM SALT MANAGER Temperature - - Respiratory Rate 16 05/09/2017 12:25 PM SALT MANAGER Oxygen Saturation 94% 05/09/2017 12:25 PM SALT MANAGER Inhaled Oxygen Concentration - - Weight 54.9 kg (121 lb) 05/09/2017 12:25 PM SALT MANAGER Height 157.5 cm (5' 2) 05/09/2017 12:25 PM SALT MANAGER Body Mass Index 22.13 05/09/2017 12:25 PM SALT MANAGER documented in this encounter Patient Instructions [...] is considered obese. More than two-thirds of [place] adults are considered overweight or obese. Being [...] employer, local community center, or saul club. MANAGER documented in this encounter Progress Notes Will Harper MD - 05/09/2017 1:47 PM CST SLEEP MEDICINE CLINIC NOTE [facility] Maria E Coley 61 [...] does not have excessive daytime sleepiness. Her [place] SleepinessScore is 2/24 with no chances of [...] retired. 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 She denies any current alcohol or illicit drug use. She does report a remotehistory of cigarette smoking but quit several decades ago. The patient was born in [place], [place], and moved to the [facility] approximately 5 years ago to live with her twin sister. She is planning on moving to [place] to settle. She does report that there [...] regarding their sleep disorder. Will Harper MD Curing Press Maintainercentrifugal station operator Pulmonary, Critical Care and Sleep Medicine [facility] Pager: [phone] MT: KARLENE Name: LIZETTEGILMAR MORAIE Account: [id number] : 1955 Visit Date: 05/09/2017 Document: [id number] MANAGER Will Harper MD - 05/09/2017 12:30 PM CST This office note has been dictated. Will Harper MANAGER documented in this encounter Nursing Notes Chasity [...] kg (121 lb). Medication Reconciliation: HALINA Henao MANAGER documented in this encounter Plan of Treatment Not on filedocumented as of this encounter Visit Diagnoses Diagnosis Restless legs syndrome (RLS) - Primary documented in this encounter Additional Health Concerns Assessment Noted Time PHQ-9 Depression Total Score: 3 01/28/2017 10:28 AM CS T documented as of this encounter Care Teams Middle School Reading Teacher Relationship Specialty Start Date End Date Edison Tam, PCP - General Family Practice 07/23/[address] [place] [address] 4 [place], [place] [address] Sheri Casey MD Pulmonary Disease 07/23/[address] [place] [address] 276 [place], [place] [address] Alphonso Billy MD Cardiology 08/12/[address] [place] [address] 901215 Roland Holt MD Resident Student in [facility] 05/12/15 09/24/18 [facility] education/training program Amita Ryan MD MD Internal Medicine 12/19/15 909 [facility] [id number] [place], [place] [address] Sid Lilly MD Orthopaedic Surgery 02/22/16 MD Alivia [facility] [address] [place], [place] [address] Neda Boland, RN Nurse Coordinator Neurology 02/23/16 09/01/18 documented as of this encounter
--- OUTSIDE RECORDS SUMMARY | 2021-10-26 13:31 | XMS_ITS | Encounter Summary ---
:1955 Author Organization [place] Address [address] [place] [address] Care Team Providers Name Role Phone Edison Tam MD Primary Care Provider Sheri Casey MD Unavailable Alphonso Billy MD Unavailable Roland Holt MD Unavailable Amita Ryan MD Unavailable Sid Lilly MD Unavailable [phone] Neda Boland RN Unavailable Reason for Referral Therapeutic Procedure Only - Closed Specialty Diagnoses / Procedures Referred By Contact Refer red To Contact Diagnoses Tendinopathy of rotator cuff, left Christiano Barnes DO Procedures TRIAMCINOLONE ACET INJ NOS 909 [place], [place] [address] Referral ID Status Reason Start Date Expiration Date Visits Requ ested Visits Authorized [id number] Closed 04/28/2017 04/28/2018 1 1 AM Physical Therapy - Closed Specialty Diagnoses / Procedures Referred By Contact Refer red To Contact Diagnoses Tendinopathy of rotator cuff, left Tendinopathy of rotator cuff, right Christiano Barnes DO 909 [place], [place] [address] Referral ID Status Reason Start Date Expiration Date Visits Requ ested Visits Authorized [id number] Closed 04/27/2017 04/27/2018 1 1 iagnostic Imaging XR - Closed Specialty Diagnoses / Procedures Referred By Contact Refer red To Contact Diagnoses Chronic pain of both shoulders Christiano Barnes DO Procedures XR Shoulder 3 View Bilateral [address] [place] [address] 5 Referral ID Status Reason Start Date Expiration Date Visits Requ ested Visits Authorized [id number] Closed 04/27/2017 04/27/2018 1 1 NG INSPECTOR Reason for Visit Reason Comments Consult Bilateral Shoulders Encounter Details Date Type Department Care Team Description 04/27/2017 [facility] Visit [facility] Christiano Barnes, Chron ic pain of both shoulders (Primary Dx); Orthopaedic Walk In DO Tendinopathy of rotator cuff, left; Clinic [address] [place] [address] Tendinopathy of rotator cuff, right [address] [place] [address] [address] [place] [address] [phone] [address] (Work) [phone] Social History Tobacco Use Types Packs/Day Years [...] Comments Blood Pressure 111/74 04/27/2017 11:39 AM SEWING INSPECTOR Pulse - - Temperature - - Respiratory Rate - - Oxygen Saturation - - Inhaled Oxygen Concentration - - Weight 54.4 kg (120 lb) 04/27/2017 11:39 AM SEWING INSPECTOR Height 157.5 cm (5' 2) 04/27/2017 11:39 AM SEWING INSPECTOR Body Mass Index 21.95 04/27/2017 11:39 AM SEWING INSPECTOR documented in this encounter Patient Instructions Patient [...] to holding for 20 to 30 seconds. NG INSPECTOR documented in this encounter Progress Notes Krystina [...] an rashes or other skin lesions? No NG INSPECTOR Christiano Barnes DO - 04/27/2017 11:10 AM [...] Units) by mouth daily Discontinue Vitamin D 21235 100 tablet 3 ??? acetaminophen (TYLENOL) 500 [...] Sister [place] Additional medical/Social/Surgical histories [facility] and updated as appropriate. REVIEW [...] limited IR on left - strength: 5/5 sandwich peddler strength, 5/5 in all shoulder planes - special tests: (-) Speed's (+) Neer bilat (+) Hawkin's bilat (+) Reddy's L>>R (-) Amelia's (-) apprehension (-) subscap lift-off Cervical: Grossly [...] results and radiologist's interpretation, available in the [facility] record. Images were reviewed with the [...] Barnes DO, CAQSM Primary Care Sports Medicine NG INSPECTOR documented in this encounter Nursing Notes Krystina Anaya ATC - 04/27/2017 11:10 AM CST [facility] [address] [place] [address] Dept: [phone] Patient: Maria E Coley : 1955 April [...] left shoulder DOSE: 1 cc LOT #: [id number] SAND CONDITIONER: [email or web address] EXPIRATION DATE: [facility]#: [id number] Was there drug waste? No MEDICATION: Lidocaine 2% Soln ROUTE: Intra articular SITE: left shoulder DOSE: 4 cc LOT #: [id number] SAND CONDITIONER: [employer] EXPIRATION DATE: 09/27 [facility]#: [id number] Was there drug waste? Yes Amount of drug waste (mL): 16. Reason for waste: Single use vial Krystina Anaya ATC April 27, 2017 NG INSPECTOR documented in this encounter Plan of Treatment Scheduled Referrals Name Type Priority Associated Diagnoses Order S chedule PHYSICAL THERAPY Referral Routine Tendinopathy of rotator Ordered: 04/27/2017 REFERRAL (Internal) cuff, left Tendinopathy of rotator cuff, right documented as of this encounter Procedures Procedure Name Priority Date/Time Associated Diagnosis Comme nts HC DRAIN/INJ MAJOR Routine 04/28/2017 6:37 PM Tendinopathy of rotator JOINT/BURSA W/O US SEWING INSPECTOR cuff, left documented in this encounter Results XR Shoulder 3 View Bilateral (04/27/2017 1:40 PM SEWING INSPECTOR) Anatomical Region Laterality Modality Shoulder Bilateral Computed Radiography Specimen (Source) Anatomical Location Collection Method / Collectio n Time Received Time / Laterality Volume Impressions 04/27/2017 4:19 PM SEWING INSPECTOR IMPRESSION: 1. Bilateral mild to moderate acromiocla vicular joint degenerative changes. 2. Bilaterally preserved glenohumeral theresa ints. SIOMARA VOGT MD Narrative 04/27/2017 4:19 PM SEWING INSPECTOR EXAMINATION: XR SHOULDER 3 VIEWS BILATERAL ??04/27/2017 [...] documented as of this encounter Care Teams Boats Renter Relationship Specialty Start Date End Date Edison Tam, PCP - General Family Practice 07/23/[address] [place] [address] [address] 4 [place], [place] [address] Sheri Casey MD Pulmonary Disease 07/23/14 420 [facility] 276 [place], [place] [address] Alphonso Billy MD Cardiology 08/12/[address] [place] [address]77[address] Roland Holt MD Resident Student in [facility] 05/12/15 09/24/18 health [facility] education/training program Amita Ryan MD MD Internal Medicine 12/19/[address] [place] [address] [id number] [place], [place] [address] Sid Lilly MD Orthopaedic Surgery 02/22/16 MD Alivia [facility] [address] [place], [place] [address] Neda Boland, NANDINI Nurse Coordinator Neurology 02/23/16 09/01/18 documented as of this encounter
--- OUTSIDE RECORDS SUMMARY | 2021-10-26 13:31 | XMS_ITS | Encounter Summary ---
:1955 Author Organization [place] Address [address] [place] [address] Care Team Providers Name Role Phone Edison Tam MD Primary Care Provider Sheri Casey MD Unavailable Alphonso Billy MD Unavailable Roland Holt MD Unavailable Amita Ryan MD Unavailable Sid Lilly MD Unavailable [phone] Neda Boland RN Unavailable Encounter Details Date Type Department Care Team Description 02/08/2017 Orders Only [facility] Crohn's disease of both [address] [place] [address] small and large intestine 1st Floor with complication (H) [place] [address] Social History Tobacco Use Types [...] diseas e of Results 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 documented in this encounter Results (ABNORMAL) CBC with platelets differential (02/08/2017 1:22 PM [facility]) [facility] gist Method Time Signature WBC 6.2 4.0 - 02/08/2017 [facility] 11.0 1:34 PM [facility] 10e9/L [facility] RBC Count 4.84 3.8 - 5.2 02/08/2017 [facility] 10e12/L 1:34 PM [facility] Hemoglobin 14.1 11.7 - 02/08/2017 [facility] 15.7 g/dL 1:34 PM [facility] Hematocrit 44.9 35.0 - 02/08/2017 [facility] 47.0 % 1:34 PM [facility] MCV 93 78 - 100 02/08/2017 [facility] fl 1:34 PM [facility] MCH 29.1 26.5 - 02/08/2017 [facility] 33.0 pg 1:34 PM [facility] MCHC 31.4 (L) 31.5 - 02/08/2017 [facility] 36.5 g/dL 1:34 PM [facility] RDW 12.5 10.0 - 02/08/2017 [facility] 15.0 % 1:34 PM [facility] Platelet Count 212 150 - 450 02/08/2017 [facility] 10e9/L 1:34 PM [facility] Diff Method Automated 02/08/2017 [facility] Method 1:34 PM [facility] % Neutrophils 65.7 % 02/08/2017 [facility] 1:34 PM [facility] % Lymphocytes 22.4 % 02/08/2017 [facility] 1:34 PM [facility] % Monocytes 10.2 % 02/08/2017 [facility] 1:34 PM [facility] % Eosinophils 1.0 % 02/08/2017 [facility] 1:34 PM [facility] % Basophils 0.5 % 02/08/2017 [facility] 1:34 PM [facility] % Immature 0.2 % 02/08/2017 [facility] Granulocytes 1:34 PM [facility] Nucleated RBCs 0 0 /100 02/08/2017 [facility] 1:34 PM [facility] Absolute 4.1 1.6 - 8.3 02/08/2017 [facility] Neutrophil 10e9/L 1:34 PM [facility] Absolute 1.4 0.8 - 5.3 02/08/2017 [facility] Lymphocytes 10e9/L 1:34 PM [facility] Absolute 0.6 0.0 - 1.3 02/08/2017 [facility] Monocytes 10e9/L 1:34 PM [facility] Absolute 0.1 0.0 - 0.7 02/08/2017 [facility] Eosinophils 10e9/L 1:34 PM [facility] Absolute 0.0 0.0 - 0.2 02/08/2017 [facility] Basophils 10e9/L 1:34 PM [facility] Abs Immature 0.0 0 - 0.4 02/08/2017 [facility] Granulocytes 10e9/L 1:34 PM [facility] Absolute 0.0 02/08/2017 [facility] Nucleated RBC 1:34 PM 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 documented in this encounter Additional Health Concerns Assessment Noted Time PHQ-9 Depression Total Score: 3 01/28/2017 10:28 AM CS T documented as of this encounter Care Teams Animal Maintenance Supervisor Relationship Specialty Start Date End Date Edison Tam, PCP - General Family Practice 07/23/[address] [place] [address] Sheri Casey MD Pulmonary Disease 07/23/14 420 [facility] 276 [place] [address] Alphonso Billy MD Cardiology 08/12/[address] [place] [address] Roland Holt MD Resident Student in [facility] 05/12/15 09/24/18 [facility] education/training program Amita Ryan MD MD Internal Medicine 12/19/15 909 [id number] [place] [address] Sid Lilly MD Orthopaedic Surgery 02/22/16 MD Alivia [facility] [address] [place] [address] Neda Boland, RN Nurse Coordinator Neurology 02/23/16 09/01/18 documented as of this encounter
--- OUTSIDE RECORDS SUMMARY | 2021-10-26 13:31 | XMS_ITS | Encounter Summary ---
:1955 Author Organization [place] Address [address] [place] [address] Care Team Providers Name Role Phone Edison Tam MD Primary Care Provider Sheri Casey MD Unavailable Alphonso Billy MD Unavailable Roland Holt MD Unavailable Amita Ryan MD Unavailable Sid Lilly MD Unavailable [phone] Neda Boland RN Unavailable Reason for Referral - Closed Specialty Diagnoses / Procedures Referred By Contact Refer red To Contact Diagnoses Hypersomnia Omar Lomeli MD [address] [place], [place] [address] Referral ID Status Reason Start Date Expiration Date Visits Requ ested Visits Authorized [id number] Closed 04/27/2017 04/27/2018 1 1 TIVE TURNER Reason for Visit Reason Comments ER F/U went to emergency room (04/22) for n/v palpitations,dizzy, SOB and edema in legs Heart Problem racing (anxious) heart Pain pain in both shouders, (left shoulder hurts worstburning ache)- for quite some time Encounter Details Date Type Department Care Team Description 04/27/2017 Office Visit [facility] Primary Care GenevateddianaOmar Agusto persomnia (Primary Dx); Clinic R, MD RODGERS (dyspnea on exertion) [address] [place] [address] [address] [place] [address] Social History Tobacco Use Types Packs/Day [...] Comments Blood Pressure 111/74 04/27/2017 9:55 AM NEGATIVE TURNER Pulse 95 04/27/2017 9:55 AM NEGATIVE TURNER Temperature - - Respiratory Rate 20 04/27/2017 9:55 AM NEGATIVE TURNER Oxygen Saturation 96% 04/27/2017 9:55 AM NEGATIVE TURNER Inhaled Oxygen Concentration - - Weight 54.4 kg (120 lb) 04/27/2017 9:55 AM weight form 04/22/17 NEGATIVE TURNER Height - - Body Mass Index 21.95 04/22/2017 11:43 AM NEGATIVE TURNER documented in this encounter Patient Instructions Patient InstructionsSuha Clarke LPN - 04/27/2017 10:00 AM CST Primary Care Center: [phone] Primary Care Center Medication Refill Request Information: * Please contact your pharmacy regarding ANY request for medication refills. [facility] Prescription Fax = [phone] * Please allow 3 business days for [...] the results and signed off on them. TIVE TURNER documented in this encounter Progress Notes Omar [...] Charan Salazar MD; Location: [facility] ??? ADMISSIONS NURSE SURGERY mass on remaining ovary ??? left [...] Units) by mouth daily Discontinue Vitamin D 82549 100 tablet 3 ??? acetaminophen (TYLENOL) 500 [...] to f/u today orders OMAR LOMELI MD TIVE TURNER documented in this encounter Nursing Notes Suha [...] Suha Clarke LPN 9:59 AM on 04/27/2017 TIVE TURNER documented in this encounter Plan of Treatment Scheduled Referrals Name Type Priority Associated Diagnoses Order S chedule SLEEP EVALUATION & Referral Routine Hypersomnia 1 Occurre nces starting MANAGEMENT REFERRAL - 2017 until ADULT -Other (Respond 2018 in commments) ([facility]) documented as of this encounter Results Cortisol (04/27/2017 11:19 AM NEGATIVE TURNER) P athologist Signature Cortisol Serum 8.8 4 - 22 04/27/2017 [facility] ug/dL 3:15 PM NEGATIVE TURNER [facility] Comment: 8 AM Cortisol Reference Range = 4-22 ug/ dL 4 PM Cortisol Reference Range = 3-17 ug/ dL Specimen Anatomical Collection Method Collection Time Receive d Time (Source) Location / / Volume Laterality Blood specimen 04/27/2017 11:19 8 (specimen) AM NEGATIVE TURNER 11:21 AM NEGATIVE TURNER Omar Lomeli MD LAB - BLOOD ORDERABLES Performing Organization Address City/State/ZIP Code Phon e Number [facility] [address] [place] [address] [facility] N terminal pro BNP (04/27/2017 11:18 AM NEGATIVE TURNER) P athologist Signature N-Terminal Pro 92 0 - 125 04/27/2017 [facility] Bnp pg/mL 11:44 AM NEGATIVE TURNER [facility] Comment: Reference range shown and results [...] Blood specimen 04/27/2017 11:18 8 (specimen) AM NEGATIVE TURNER 11:20 AM NEGATIVE TURNER Omar Lomeli MD LAB - BLOOD ORDERABLES Performing Organization Address City/State/ZIP Code Phon e Number [address] [address] [facility] documented in this encounter Visit Diagnoses Diagnosis Hypersomnia - Primary Hypersomnia, unspecified RODGERS (dyspnea on exertion) Other dyspnea and respiratory abnormalit y documented in this encounter Additional Health Concerns Assessment Noted Time PHQ-9 Depression Total Score: 3 01/28/2017 10:28 AM CS T documented as of this encounter Care Teams Commutator V Ring Assembler Relationship Specialty Start Date End Date Edison Tam, PCP - General Family Practice 07/23/[address] [place] [address] 4 [place], [place] [phone] Sheri Casey MD Pulmonary Disease 07/23/14 420 [facility] 276 [place] [address] Alphonso Billy MD Cardiology 08/12/14 8 420 [place] [address] Roland Holt MD Resident Student in [facility] 05/12/15 09/24/18 [facility] education/training program Amita Ryan MD MD Internal Medicine 12/19/15 909 [facility] [place] [id number] [place] [address] Sid Lilly MD Orthopaedic Surgery 02/22/16 MD Alivia [facility] [address] [place] [address] Neda Boland, NANDINI Nurse Coordinator Neurology 02/23/16 09/01/18 documented as of this encounter
--- OUTSIDE RECORDS SUMMARY | 2021-10-26 13:31 | XMS_ITS | Encounter Summary ---
:1955 Author Organization [place] Address [facility] [place] [address] Care Team Providers Name Role Phone Edison Tam MD Primary Care Provider Sheri Casey MD Unavailable Roland Holt MD Unavailable Amita Ryan MD Unavailable Sid Lilly MD Unavailable [phone] Neda Boland RN Unavailable Encounter Details Date Type Department Care Team Description 08/01/2018 Medical Correspondence [facility] Scan, PROVIDER LETTER Health Info Mgmt Non-Provider Srvcs [address] [place] [address] Social History Tobacco Use Types [...] documented as of this encounter Care Teams Decorator Street And Building Relationship Specialty Start Date End Date Edison Tam, PCP - General Family Practice 07/23/14 909 [facility] [address] 4 [place] [address] Sheri Casey MD Pulmonary Disease 07/23/14 [address] [facility] 276 [place] [address] Roland Holt MD Resident Student in [facility] 05/12/15 09/24/18 [facility] education/training program Amita Ryan MD MD Internal Medicine 12/19/15 909 [facility] [id number] [place] [address] Sid Lilly MD Orthopaedic Surgery 02/22/16 MD Alivia [facility] [address] [place], [place] [phone] Neda Boland, RN Nurse Coordinator Neurology 02/23/16 09/01/18 documented as of this encounter
--- OUTSIDE RECORDS SUMMARY | 2021-10-26 13:31 | XMS_ITS | Encounter Summary ---
:1955 Author Organization [place] Address [facility] [place] [address] Care Team Providers Name Role Phone Edison Tam MD Primary Care Provider Sheri Casey MD Unavailable Alphonso Billy MD Unavailable Roland Holt MD Unavailable Amita Ryan MD Unavailable Sid Lilly MD Unavailable [phone] Neda Boland RN Unavailable Encounter Details Date Type Department Care Team Description 02/20/2017 Medical Correspondence [facility] Scan, ORDER GLUCOSE TEST Health Info Mgmt Non-Provider STRIPS APOLONIA WILSON [facility] [place] [address] Social History Tobacco Use Types [...] documented as of this encounter Care Teams Retail Event Coordinator Relationship Specialty Start Date End Date Edison Tam, PCP - General Family Practice 07/23/14 909 [facility] [address] 4 [place], [place] [address] Sheri Casey MD Pulmonary Disease 07/23/14 420 [facility] 276 [place], [place] [phone] Alphonso Billy MD Cardiology 08/12/[address] [place] [phone] Roland Holt MD Resident Student in [facility] 05/12/15 09/24/18 health [facility] education/training program Amita Ryan MD MD Internal Medicine 12/19/15 909 [facility] [id number] [place], [place] [id number] Sid Lilly MD Orthopaedic Surgery 02/22/16 MD Alivia [facility]2 [address] [facility] [address] [place], [place] [phone] Neda Boland, NANDINI Nurse Coordinator Neurology 02/23/16 09/01/18 documented as of this encounter
--- OUTSIDE RECORDS SUMMARY | 2021-10-26 13:31 | XMS_ITS | Encounter Summary ---
:1955 Author Organization [place] Address [address] [place] [address] Care Team Providers Name Role Phone Edison Tam MD Primary Care Provider Sheri Casey MD Unavailable Alphonso Billy MD Unavailable Roland Holt MD Unavailable Amita Ryan MD Unavailable Sid Lilly MD Unavailable Neda Boland RN Unavailable Reason for Visit Reason Comments Medication Refill Encounter Details Date Type Department Care Team Description 12/24/2017 Refill [facility] Sleep Will Harper MD Medication Refill Center [address] [place] [address] [phone] Social History Tobacco Use Types Packs/Day Years [...] documented as of this encounter Care Teams Seed Production Field Supervisor Relationship Specialty Start Date End Date Edison Tam, PCP - General Family Practice 07/23/[address] [place] [address] [place] [address] FL 4 [place], [place] [address] Sheri Casey MD Pulmonary Disease 07/23/14 420 [facility] 276 [place], [place] [phone] Alphonso Billy MD Cardiology 08/12/[address] [place] [address]44[address] Roland Holt MD Resident Student in [facility] 05/12/15 09/24/18 health care education/training program Amita Ryan MD MD Internal Medicine 12/19/[address] [place] [address] [id number] [place], [place] 732[address] Sid Lilly MD Orthopaedic Surgery 02/22/16 MD Alivia [facility] [address] [place], [place] [address] Neda Boland, NANDINI Nurse Coordinator Neurology 02/23/16 09/01/18 documented as of this encounter
--- OUTSIDE RECORDS SUMMARY | 2021-10-26 13:31 | XMS_ITS | Encounter Summary ---
:1955 Author Organization [place] Address [address] [place] [address] Care Team Providers Name Role Phone Edison Tam MD Primary Care Provider Sheri Casey MD Unavailable Alphonso Billy MD Unavailable Roland Holt MD Unavailable Amita Ryan MD Unavailable Sid Lilly MD Unavailable Neda Boland RN Unavailable Reason for Visit Reason Comments Medication Refill Encounter Details Date Type Department Care Team Description 10/21/2017 Refill [facility] Sleep Will Harper MD Medication Refill Center [address] [place] [address] [phone] Social History Tobacco Use Types Packs/Day Years [...] # refills: 0 Last Office Visit with [facility] prescribing provider: 07/18/2017 Future Office visit: [...] documented as of this encounter Care Teams Sql Programmer Relationship Specialty Start Date End Date Edison Tam, PCP - General Family Practice 07/23/[address] [place] [address] 4 [place] [address] Sheri Casey MD Pulmonary Disease 07/23/[address] [place] [address] 276 [place], [place] [address] Alphonso Billy MD Cardiology 08/12/[address] [place] [address] Roland Holt MD Resident Student in [facility] 05/12/15 09/24/18 [facility] education/training program Amita Ryan MD MD Internal Medicine 12/19/[address] [place] [address] [id number] [place], [place] [phone] Sid Lilly MD Orthopaedic Surgery 02/22/16 MD Alivia [facility] [address] [address] Neda Boland, NANDINI Nurse Coordinator Neurology 02/23/16 09/01/18 documented as of this encounter
--- OUTSIDE RECORDS SUMMARY | 2021-10-26 13:31 | XMS_ITS | Encounter Summary ---
:1955 Author Organization [place] Address [address] [place] [address] Care Team Providers Name Role Phone Edison Tam MD Primary Care Provider Sheri Casey MD Unavailable Alphonso Billy MD Unavailable Roland Holt MD Unavailable Amita Ryan MD Unavailable Sid Lilly MD Unavailable Neda Boland RN Unavailable Reason for Visit Reason Comments Medication Refill Encounter Details Date Type Department Care Team Description 09/09/2017 Refill [facility] Sleep Will Harper MD Medication Refill Center [address] [place] [address] 4-[address] [phone] Social History Tobacco Use Types Packs/Day Years [...] documented as of this encounter Care Teams Needle Punch Machine Operator Relationship Specialty Start Date End Date Edison Tam, PCP - General Family Practice 07/23/14 [place] 909 [facility] [address] 4 [place], [place] [address] Sheri Casey MD Pulmonary Disease 07/23/14 420 [facility] [address] [place] [address] Alphonso Billy MD Cardiology 08/12/[address] [place] [address] Roland Holt MD Resident Student in [facility] 05/12/15 09/24/[address] [facility] education/training program Amita Ryan MD MD Internal Medicine 12/19/[address] [place] [address] [id number] [place], [place] 490[address] Sid Lilly MD Orthopaedic Surgery 02/22/16 MD Alivia [facility] [address] [place], [place] [address] Neda Boland, NANDINI Nurse Coordinator Neurology 02/23/16 09/01/18 documented as of this encounter
--- OUTSIDE RECORDS SUMMARY | 2021-10-26 13:31 | XMS_ITS | Encounter Summary ---
:1955 Author Organization [place] Address [address] [place] [address] Care Team Providers Name Role Phone Edison Tam MD Primary Care Provider Sheri Casey MD Unavailable Alphonso Billy MD Unavailable Roland Holt MD Unavailable Amita Ryan MD Unavailable Sid Lilly MD Unavailable [phone] Neda Boland RN Unavailable Encounter Details Date Type Department Care Team Description 05/23/2017 Therapy Visit [facility] Maria Victoria Chaudhary Bilat eral shoulder [facility] CLAY PIGEON LOADER pain [facility] 909 [facility] THERAPY 5th Floor 909 [place] [phone] Social History Tobacco Use Types Packs/Day Years [...] documented as of this encounter Care Teams Pigskin Trimmer Relationship Specialty Start Date End Date Edison Tam, PCP - General Family Practice 07/23/[address] [place] [address] [address] 4 [place], [place] [address] Sheri Casey MD Pulmonary Disease 07/23/[address] [place] [address] 276 [place], [place] 113[address] Alphonso Billy MD Cardiology 08/12/[address] [place] [address] 495985 Roland Holt MD Resident Student in [facility] 05/12/15 09/24/18 health [facility] education/training program Amita Ryan MD MD Internal Medicine 12/19/[address] [place] [address] [id number] [place], [place] [address] Sid Lilly MD Orthopaedic Surgery 02/22/16 MD Alivia [facility] S [facility] [address] [place], [place] [address] Neda Boland, NANDINI Nurse Coordinator Neurology 02/23/16 09/01/18 documented as of this encounter
--- OUTSIDE RECORDS SUMMARY | 2021-10-26 13:31 | XMS_ITS | Encounter Summary ---
:1955 Author Organization [place] Address [address] [place] [address] Care Team Providers Name Role Phone Edison Tam MD Primary Care Provider Sheri Casey MD Unavailable Alphonso Billy MD Unavailable Roland Holt MD Unavailable Amita Ryan MD Unavailable Sid Lilly MD Unavailable [phone] Neda Boland RN Unavailable Encounter Details Date Type Department Care Team Description 06/22/2017 Orders Only [facility] Endocrinolo Laisha Moraes MD [address] [address] [place], [place] [address] [phone] Social History Tobacco Use Types Packs/Day Years [...] documented as of this encounter Care Teams Compensation Business Partner Relationship Specialty Start Date End Date Edison Tam, PCP - General Family Practice 07/23/[address] [place] [address] [address] 4 [place], [place] [address]40[address] Sheri Casey MD Pulmonary Disease 07/23/14 420 [facility] 276 [place], [place] [address] Alphonso Billy MD Cardiology 08/12/[address] [place] [phone] Roland Holt MD Resident Student in [facility] 05/12/15 09/24/18 [facility] education/training program Amita Ryan MD MD Internal Medicine 12/19/[address] [place] [address] [id number] [place], [place] [phone] Sid Lilly MD Orthopaedic Surgery 02/22/16 MD Alivia [facility] [address] [place], [place] [phone] Neda Boland, NANDINI Nurse Coordinator Neurology 02/23/16 09/01/18 documented as of this encounter
--- OUTSIDE RECORDS SUMMARY | 2021-10-26 13:31 | XMS_ITS | Encounter Summary ---
:1955 Author Organization [place] Address [address] [place] [address] Care Team Providers Name Role Phone Edison Tam MD Primary Care Provider Sheri Casey MD Unavailable Roland Holt MD Unavailable Amita Ryan MD Unavailable Sid Lilly MD Unavailable [phone] Neda Boland RN Unavailable Reason for Visit Reason Onset Date Comments Call Back 08/01/2018 question Encounter Details Date Type Department Care Team Description 08/01/2018 Documentation Only [facility] Primary Edison Tam Ca ll Back (question) Care Clinic Teresa Kennedy MD [address] [place] [phone] Social History Tobacco Use Types Packs/Day Years [...] documented as of this encounter Care Teams Supervisor Mirror Fabrication Relationship Specialty Start Date End Date Edison Tam, PCP - General Family Practice 07/23/[address] [place] [address] [address] 4 [place], [place] [phone] Sheri Casey MD Pulmonary Disease 07/23/14 [address] [facility] [address] [place] [address] Roland Holt MD Resident Student in [facility] 05/12/15 09/24/18 health care education/training program Amita Ryan MD MD Internal Medicine 12/19/[address] [facility] [id number] [place], [place] [phone] Sid Lilly MD Orthopaedic Surgery 02/22/16 MD Alivia [facility] [address] [place], [place] [phone] Neda Boland, NANDINI Nurse Coordinator Neurology 02/23/16 09/01/18 documented as of this encounter
--- OUTSIDE RECORDS SUMMARY | 2021-10-26 13:31 | XMS_ITS | Encounter Summary ---
:1955 Author Organization [place] Address [address] [place] [address] Care Team Providers Name Role Phone Edison Tam MD Primary Care Provider Sheri Casey MD Unavailable Roland Holt MD Unavailable Amita Ryan MD Unavailable Sid Lilly MD Unavailable [phone] Neda Boland RN Unavailable Reason for Visit Reason Onset Date Comments Forms 08/07/2018 DC o2 Encounter Details Date Type Department Care Team Description 08/07/2018 [facility] Primary Care Edison Tam MD Forms (DC o2) [address] [place] [address] [phone] Social History Tobacco Use Types Packs/Day Years [...] documented as of this encounter Care Teams Fur Weigher Relationship Specialty Start Date End Date Edison Tam, PCP - General Family Practice 07/23/[address] [place] [address] FL 4 [place], [place] 348705 Sheri Casey MD Pulmonary Disease 07/23/[address] [place] [address] MMC 276 [place], [place] 277545 Roland Holt MD Resident Student in [facility] 05/12/15 09/24/18 health [facility] education/training program Amita Ryan MD MD Internal Medicine 12/19/[address] [place] [address] [id number] [place], [place] 128005 Sid Lilly MD Orthopaedic Surgery 02/22/16 MD Alivia [address] [place], [place] 455[address] Neda Boland, NANDINI Nurse Coordinator Neurology 02/23/16 09/01/18 documented as of this encounter
--- OUTSIDE RECORDS SUMMARY | 2021-10-26 13:31 | XMS_ITS | Encounter Summary ---
:1955 Author Organization [place] Address [address] [place] [address] Care Team Providers Name Role Phone Edison Tam MD Primary Care Provider Sheri Casey MD Unavailable Alphonso Billy MD Unavailable Roland Holt MD Unavailable Amita Ryan MD Unavailable Sid Lilly MD Unavailable [phone] Neda Boland RN Unavailable Reason for Visit Diagnostic Imaging XR - Closed Specialty Diagnoses / Procedures Referred By Contact Refer red To Contact Diagnoses Chronic pain of both shoulders Christiano Barnes, DO Procedures XR Shoulder 3 View Bilateral 9 [place], [place] [address] 4 Referral ID Status Reason Start Date Expiration Date Visits Requ ested Visits Authorized [id number] Closed 04/27/2017 04/27/2018 1 1 Encounter Details Date Type Department Care Team Description 04/27/2017 Radiant Appointment [facility] Orthopaedics Christiano Barnes Chronic pain of XRay A, DO both shoulders 909 [facility] SE 909 [facility] 4th Floor SE [facility] [place] [address] [place] [address] [phone] Social History Tobacco Use Types Packs/Day Years [...] R esults for this BILATERAL 3 VIEWS MANUFACTURING BUSINESS ANALYST shoulders procedure are in the results section. documented in this encounter Results XR Shoulder 3 View Bilateral (04/27/2017 1:40 PM MANUFACTURING BUSINESS ANALYST) Anatomical Region Laterality Modality Shoulder Bilateral Computed Radiography Specimen (Source) Anatomical Location Collection Method / Collectio n Time Received Time / Laterality Volume Impressions 04/27/2017 4:19 PM MANUFACTURING BUSINESS ANALYST IMPRESSION: 1. Bilateral mild to moderate acromiocla vicular joint degenerative changes. 2. Bilaterally preserved glenohumeral theresa ints. SIOMARA VOGT MD Narrative 04/27/2017 4:19 PM MANUFACTURING BUSINESS ANALYST EXAMINATION: XR SHOULDER 3 VIEWS BILATERAL ??04/27/2017 [...] documented as of this encounter Care Teams Plasma Specialist Relationship Specialty Start Date End Date Edison Tam, PCP - General Family Practice 07/23/[address] [place] [address] FL 4 [place], [place] [phone] Sheri Casey MD Pulmonary Disease 07/23/[address] [place] [address] MMC 276 [place], [place] 622245 Alphonso Billy MD Cardiology 08/12/[address] 220335 Roland Holt MD Resident Student in [facility] 05/12/15 09/24/18 health care education/training program Amita Ryan MD MD Internal Medicine 12/19/[address] [place] [address] [id number] [place], [place] 014465 Sid Lilly MD Orthopaedic Surgery 02/22/16 MD Alivia [address] [place] [address] [address] [place] [address] Neda Boland, NANDINI Nurse Coordinator Neurology 02/23/16 09/01/18 documented as of this encounter
--- OUTSIDE RECORDS SUMMARY | 2021-10-26 13:31 | XMS_ITS | Encounter Summary ---
:1955 Author Organization [place] Address [address] [place] [address] Care Team Providers Name Role Phone Edison Tam MD Primary Care Provider Sheri Casey MD Unavailable Alphonso Billy MD Unavailable Roland Holt MD Unavailable Amita Ryan MD Unavailable Sid Lilly MD Unavailable [phone] Neda Boland RN Unavailable Reason for Visit Reason Comments RECHECK Follow up medication Encounter Details Date Type Department Care Team Description 07/18/[address] [facility] Will Harper MD [facility] [address] [place] [address] SE [facility] syndrome (RLS) [place] 276 (Primary Dx) [address] [place] [id number] [phone] Social History Tobacco Use Types Packs/Day Years [...] is considered obese. More than two-thirds of [place] adults are considered overweight or obese. Being [...] 11:03 AM CDT SLEEP MEDICINE CLINIC NOTE [facility] Maria E Coley [...] regarding their sleep disorder. Will Harper MD Warehouse Administratorfield service rep Pulmonary, Critical Care and Sleep Medicine [facility] Pager: [phone] MT: [place] Name: MARIA E COLEY Account: [id number] : 1955 Visit Date: 07/18/2017 Document: [id number] Will Harper MD - 07/18/2017 10:30 AM [...] documented as of this encounter Care Teams News Gathering Technician Relationship Specialty Start Date End Date Edison Tam, PCP - General Family Practice 07/23/[address] [place] [address] FL 4 [place], [place] [phone] Sheri Casey MD Pulmonary Disease 07/23/[address] [facility] 276 [place], [place] 947065 Alphonso Billy MD Cardiology 08/12/[address] 963575 Roland Holt MD Resident Student in [facility] 05/12/15 09/24/18 health [facility] education/training program Amita Ryan MD MD Internal Medicine 12/19/15 909 [facility] [id number] [place], [place] 744355 Sid Lilly MD Orthopaedic Surgery 02/22/16 MD Alivia [facility] [address] [place], [place] 238834 Neda Boland, RN Nurse Coordinator Neurology 02/23/16 09/01/18 documented as of this encounter
--- OUTSIDE RECORDS SUMMARY | 2021-10-26 13:31 | XMS_ITS | Encounter Summary ---
:1955 Author Organization [place] Address [address] [place] [address] Care Team Providers Name Role Phone Edison Tam MD Primary Care Provider Sheri Casey MD Unavailable Alphonso Billy MD Unavailable Roland Holt MD Unavailable Amita Ryan MD Unavailable Sid Lilly MD Unavailable [phone] Neda Boland RN Unavailable Reason for Visit Reason Onset Date Comments Refill Request 07/08/2017 Encounter Details Date Type Department Care Team Description 07/08/2017 Refill [facility] Endocrinolo Laisha Moraes MD Refill Request [address] [place] [address] [place], [place] 55 5-4800 [phone] Social History Tobacco Use Types Packs/Day Years [...] documented as of this encounter Care Teams Industrial Twisting Machine Operator Relationship Specialty Start Date End Date Edison Tam, PCP - General Family Practice 07/23/[address] [place] [address] [place] [address] FL 4 [place], [place] 858465 Sheri Casey MD Pulmonary Disease 07/23/[address] [place] [address] MMC [address] [place] [address] Alphonso Billy MD Cardiology 08/12/[address] [place] [address] 292055 Roland Holt MD Resident Student in [facility] 05/12/15 09/24/18 health care education/training program Amita Ryan MD MD Internal Medicine 12/19/[address] [place] [address] [id number] [place], [place] 058075 Sid Lilly MD Orthopaedic Surgery 02/22/16 MD Alivia [facility] [address] [place], [place] [address] Neda Boland, NANDINI Nurse Coordinator Neurology 02/23/16 09/01/18 documented as of this encounter
--- OUTSIDE RECORDS SUMMARY | 2021-10-26 13:31 | XMS_ITS | Encounter Summary ---
:1955 Author Organization [place] Address [address] [place] [address] Care Team Providers Name Role Phone Edison Tam MD Primary Care Provider Sheri Casye MD Unavailable Alphonso Billy MD Unavailable Roland Holt MD Unavailable Amita Ryan MD Unavailable Sid Lilly MD Unavailable [phone] Neda Boland RN Unavailable Reason for Referral Consultation - Closed Specialty Diagnoses / Procedures Referred By Contact Refer red To Contact Diagnoses Senile osteoporosis Edison Tam MD [address] [place] [address] 5 Referral ID Status Reason Start Date Expiration Date Visits Requ ested Visits Authorized [id number] Closed 05/07/2017 05/07/2018 1 1 ARCHITECT Reason for Visit Reason Onset Date Comments Orders 05/07/2017 DEXA shows osteoporo sis Encounter Details Date Type Department Care Team Description 05/07/2017 Telephone [facility] Primary Care [facility] MD Marcia osteoporosis) [address] [place] [address] [facility] 4th Floor FL 4 [place] [phone] Social History Tobacco Use Types Packs/Day Years [...] Edison Tam MD - 05/07/2017 11:24 AM DATA ARCHITECT UMP: [facility] [place] Please call her as she needs endocrinology appt for osteoporosis management options.. Best wishes, Edison Tam MD May 08, 2017 10:35 AM Attempted to contact patient to discuss. No answer and voicemail was full, so unable to leave message. Will try again later. Nena Bailey RN, Bioanalyst May 10, 2017 1:00 PM Spoke with patient. She has appointment scheduled for Endocrinology in June. Nena Bailey RN, Bioanalyst ARCHITECT documented in this encounter Plan of Treatment Scheduled Referrals Name Type Priority Associated Diagnoses Order S [facility] ENDOCRINOLOGY ADULT Referral Routine Senile osteoporosis O rdered: 05/07/2017 REFERRAL documented as of this encounter Visit Diagnoses Diagnosis Senile osteoporosis - Primary documented in this encounter Additional Health Concerns Assessment Noted Time PHQ-9 Depression Total Score: 3 01/28/2017 10:28 AM CS T documented as of this encounter Care Teams Window/Distribution Clerk Relationship Specialty Start Date End Date Edison Tam, PCP - General Family Practice 07/23/[address] [place] [address] FL 4 [place], [place] 340465 Sheri Casey MD Pulmonary Disease 07/23/[address] [place] [address] Alphonso Billy MD Cardiology 08/12/14 8 420 [place], [place] 962985 Roland Holt MD Resident Student in [facility] 05/12/15 09/24/18 [facility] education/training program Amita Ryan MD MD Internal Medicine 12/19/15 909 [facility] [id number] [place], [place] 382995 Sid Lilly MD Orthopaedic Surgery 02/22/16 MD Alivia [facility] S [facility] [address] [place], [place] [phone] Neda Boland, RN Nurse Coordinator Neurology 02/23/16 09/01/18 documented as of this encounter
--- OUTSIDE RECORDS SUMMARY | 2021-10-26 13:31 | XMS_ITS | Encounter Summary ---
:1955 Author Organization [facility] Address [address] [place] [address] Care Team Providers Name Role Phone Edison Tam MD Primary Care Provider Sheri Casey MD Unavailable Alphonso Billy MD Unavailable Roland Holt MD Unavailable Amita Ryan MD Unavailable Sid Lilly MD Unavailable [phone] Neda Boland RN Unavailable Encounter Details Date Type Department Care Team Description 05/06/2017 Therapy Visit [facility], Bilateral shoulder Rehabilitation Services Quentin blanca, PT pain (Primary Dx) [facility] on [place]IM[place] [address] [place], [place] [address] [place], [place] [phone] Social History Tobacco Use Types Packs/Day Years [...] Coracoid Impingement Internal impingement Labral Anterior Slide Coosa's Crank Instability Apprehension (anterior) Relocation (anterior) Anterior [...] Sheet for this information) Short term and terminal operator goals: (See Goal Flow Sheet for this [...] and time spent performing 1:1 timed codes. OSITE ENGINEER documented in this encounter Plan of Treatment Not on filedocumented as of this encounter Procedures Procedure Name Priority Date/Time Associated Diagnosis Comme nts ZZC THERAPEUTIC Routine 05/07/2017 12:20 PM Bilateral shoulder EXERCISES COMPOSITE ENGINEER pain documented in this encounter Visit Diagnoses Diagnosis Bilateral shoulder pain - Primary Pain in joint, shoulder region documented in this encounter Additional Health Concerns Assessment Noted Time PHQ-9 Depression Total Score: 3 01/28/2017 10:28 AM CS T documented as of this encounter Care Teams Environmental Services Supervisor Relationship Specialty Start Date End Date Edison Tam, PCP - General Family Practice 07/23/[address] [place] [address] FL 4 [place], [place] [phone] Sheri Casey MD Pulmonary Disease 07/23/[address] [place] [address] MMC 276 [place], [place] [phone] Alphonso Billy MD Cardiology 08/12/[address] [place] [address] [id number] Roland Holt MD Resident Student in [facility] 05/12/15 09/24/18 health care education/training program Amita Ryan MD MD Internal Medicine 12/19/[address] [place] [address] [id number] [place], [place] 898755 Sid Lilly MD Orthopaedic Surgery 02/22/16 MD Alivia [facility]2 [place] [id number] [place], [place] 978624 Neda Boland, RN Nurse Coordinator Neurology 02/23/16 09/01/18 documented as of this encounter
--- OUTSIDE RECORDS SUMMARY | 2021-10-26 13:31 | XMS_ITS | Encounter Summary ---
:1955 Author Organization [place] Address [address] [place] [address] Care Team Providers Name Role Phone Edison [...] Procedures C COSYNTROPIN CORTROSYN INJ, .25MG 9 [facility] 420 [place], [place] [address] [place], [place] Phone: [phone] Referral ID Status Reason Start Date Expiration Date Visits Requ ested Visits Authorized [id number] Closed 06/22/2017 04/10/2018 1 1 Encounter Details Date Type Department Care Team Description 07/08/2017 Infusion Therapy [facility] Laisha Moraes story of Visit Advanced Treatment MD [facility] [address] (Primary Dx) 909 [facility] [address] [place], [place] [address] Social History Tobacco Use Types Packs/Day [...] Maria E Coley Thank you for choosing [facility] ([facility]) for your infusion. The following information is a summary of our appointment as well as important reminders. We look forward in seeing you on your next appointment here at [facility]. Please don???t hesitate to callus at [phone] to reschedule any of your appointments or to speak with one of the [facility] registered nurses. It was a pleasure taking care of you today. Sincerely, [facility] [address] [place] [address] Corticotropin Gel for injection What is this [...] vein. It is given by a health life care planner in a hospital or clinic setting. For [...] information carefully each time. Talk to your screen handler regarding the use of this medicine in children. While this drug may be prescribed for children as young as 1 month for selected conditions, precautions do apply. Overdosage: If you think you have taken too much of this medicine contact a poison control center [facility] room at once. NOTE: This medicine is [...] are sick. Tell your doctor or health life care planner if you are exposed to anyone with measles or chickenpox, or if you develop sores or blisters that do not heal properly. Do not receive any vaccinations as you may get a strong reaction. Avoid people who have recently taken oral polio vaccine. If you are going to have surgery, tell your doctor or health life care planner that you have received this medicine within the last twelve months. What side effects may I notice from receiving this medicine? Side effects that you should report to your doctor or health life care planner as soon as possible: ?? allergic reactions [...] attention (report to your doctor or health life care planner if they continue or are bothersome): ?? increased appetite ?? nervousness, restlessness, or difficulty sleeping ?? stomach upset ?? unusual increased growth of hair on the face or body This list may not describe all possible side effects. Call your doctor for medical advice about sideeffects. You may report side effects to FDA at 1-399-TUO-1726. Where should I keep my medicine? Keep [...] and possible side effects. Patient verbalized understanding. Minister Helper needed: No Premedications: were not ordered. Baseline [...] doctor. Discharge instructions were reviewed with patient. Patient/accounting representative verbalized understanding of discharge instructions and [...] athologist Signature Cortisol 26.0 >20 ug/dL 07/08/2017 [facility] Post 12:21 PM CDT [address] Comment: Peak serum cortisol should be greater th an 20 ug/dL 30-60 minutes post stimulation. Specimen Anatomical Collection Method Collection Time Receive d Time (Source) Location / / Volume Laterality Blood specimen 07/08/2017 9:15 AM 018 9:30 (specimen) CDT AM CDT Laisha Moraes MD LAB - BLOOD ORDERABLES Performing Organization Address City/State/ZIP Code Phon e Number [facility] [address] [place] [address] [facility] Renin activity (07/08/2017 9:00 AM CDT) athologist Signature Renin Activity 1.1 ng/mL/hr 07/10/2017 [facility] 5:33 PM CDT [facility] Comment: (Note) INTERPRETIVE INFORMATION: Renin Activity Adult, [...] angiotensinogen is decreased. See Compliance Statement D: www.[employer]. [facility] Performed by [employer], [address] [place] [address] [email or web address], Trace Islas MD, Lab. Director Specimen Anatomical Collection Method Collection Time Receive d Time (Source) Location / / Volume Laterality Blood specimen 07/08/2017 9:00 AM 018 9:11 (specimen) CDT AM CDT Laisha Moraes MD LAB - BLOOD ORDERABLES Performing Organization Address City/State/ZIP Code Phon e Number [facility] [address] [place] [address] [facility] Cosyntropin stimulation study post 30 (07/08/2017 8:45 AM CDT) P athologist Signature Cortisol 22.9 >20 ug/dL 07/08/2017 [facility] Stimulation Post 11:32 AM CDT [address] Comment: Peak serum cortisol should be greater th an 20 ug/dL 30-60 minutes post stimulation. Specimen Anatomical Collection Method Collection Time Receive d Time (Source) Location / / Volume Laterality Blood specimen 07/08/2017 8:45 AM 018 8:59 (specimen) CDT AM CDT Laisha Moraes MD LAB - BLOOD ORDERABLES Performing Organization Address City/[facility]/ZIP Code Phon e Number [address] Cosyntropin stimulation study baseline (07/08/2017 8:15 AM CDT) P athologist Signature Cortisol 10.2 4 - 22 07/08/2017 [facility] Stimulation ug/dL 10:43 AM CDT [facility] Comment: 8 AM Cortisol Reference Range = 4-22 ug/ dL 4 PM Cortisol Reference Range = 3-17 ug/ dL Specimen Anatomical Collection Method Collection Time Receive d Time (Source) Location / / Volume Laterality Blood specimen 07/08/2017 8:15 AM 018 8:26 (specimen) CDT AM CDT Laisha Moraes MD LAB - BLOOD ORDERABLES Performing Organization Address City/[facility] Phon e Number [address] documented in this encounter Visit Diagnoses [...] documented as of this encounter Care Teams Electrician Marine Relationship Specialty Start Date End Date Edison Tam, PCP - General Family Practice 07/23/[address] [place] [address] FL 4 [place], [place] 328605 Sheri Casey MD Pulmonary Disease 07/23/14 420 [facility] [address] [place] [address] Alphonso Billy MD Cardiology 08/12/[address] [place] [address] [id number] Roland Holt MD Resident Student in [facility] 05/12/15 09/24/18 health [facility] education/training program Amita Ryan MD MD Internal Medicine 12/19/[address] [place] [address] [id number] [place], [place] 997525 Sid Lilly MD Orthopaedic Surgery 02/22/16 MD Alivia [facility]2 S [facility] [address] [place], [place] 20[address] Neda Boland, NANDINI Nurse Coordinator Neurology 02/23/16 09/01/18 documented as of this encounter
--- OUTSIDE RECORDS SUMMARY | 2021-10-26 13:31 | XMS_ITS | Encounter Summary ---
:1955 Author Organization [place] Address [address] [place] [address] Care Team Providers Name Role Phone Edison Tam MD Primary Care Provider Sheri Casey MD Unavailable Alphonso Billy MD Unavailable Roland Holt MD Unavailable Amita Ryan MD Unavailable Sid Lilly MD Unavailable Neda Boland RN Unavailable Reason for Visit Reason Comments Medication Refill Encounter Details Date Type Department Care Team Description 11/25/2017 Refill [facility] Sleep Will Harper MD Medication Refill Center [phone] [place] [address] [phone] Social History Tobacco Use Types Packs/Day Years [...] documented as of this encounter Care Teams Production Planning Manager Relationship Specialty Start Date End Date Edison Tam, PCP - General Family Practice 07/23/14 [place] [address] [place] [address] FL 4 [place], [place] 953145 Sheri Casey MD Pulmonary Disease 07/23/14 420 [facility] 276 [place], [place] [phone] Alphonso Billy MD Cardiology 08/12/[address] [place] [address] 203185 Roland Holt MD Resident Student in [facility] 05/12/15 09/24/18 health care education/training program Amita Ryan MD MD Internal Medicine 12/19/[address] [place] [address] [id number] [place], [place] 104765 Sid Lilly MD Orthopaedic Surgery 02/22/16 MD Alivia [facility] [address] [place], [place] [address] Neda Boland, NANDINI Nurse Coordinator Neurology 02/23/16 09/01/18 documented as of this encounter
--- OUTSIDE RECORDS SUMMARY | 2021-10-26 13:31 | XMS_ITS | Encounter Summary ---
:1955 Author Organization [facility] Address [address] [place] [address]. [place] [address] Care Team Providers Name Role Phone Edison Tam MD Primary Care Provider Sheri Casey MD Unavailable Alphonso Billy MD Unavailable Roland Holt MD Unavailable Amita Ryan MD Unavailable Sid Lilly MD Unavailable Neda Boland RN Unavailable Reason for Visit Reason Comments Palpitations Encounter Details Date Type Department Care Team Description 04/22/2017 Emergency [facility] Allison Domínguez ail, Palpitations; Emergency Department Dizziness; [address] [facility] [address] [place] [address] (Wo rk) Social History Tobacco [...] Comments Blood Pressure 112/64 04/22/2017 1:00 PM [employer] WORK[employer] Pulse 100 04/22/2017 11:43 AM [employer] WORK[employer] Temperature 37.2 ??C (99 ??F) 04/22/2017 11:43 AM [employer] WORKER Respiratory Rate 19 04/22/2017 1:00 PM [employer] WORK[employer] Oxygen Saturation 96% 04/22/2017 1:00 PM [employer] WORK[employer] Inhaled Oxygen Concentration - - Weight 54.4 kg (120 lb) 04/22/2017 11:43 AM [employer] WORK[employer] Height 157.5 cm (5' 2) 04/22/2017 11:43 AM [employer] WORKER Body Mass Index 21.95 04/22/2017 11:43 AM [employer] WORKER documented in this encounter Discharge Instructions Discharge InstructionsAllison Domínguez MD - 04/22/2017 1:18 PM [employer] Thank you for your patience today. Please [...] today. We hope you feel better soon. [employer] WORK[employer] documented in this encounter Medications at Time of Discharge Medication Sig Dispensed Refills Start Date End Date acetaminophen (TYLENOL) 500 Take 500-1,000 mg 0 MG tablet by mouth every 8 hours as needed blood glucose monitoring (NO Use to test blood 100 each 01/28/2017 BRAND SPECIFIED) test sugars 2 to three stripIndications: Other times daily or as abnormal glucose directed Calcium Citrate-Vitamin D Take 1 tablet by 0 (CITRACAL + D PO) mouth 2 times daily. Carboxymethylcellulose Apply to eye. 0 Sodium (REFRESH TEARS OP) cyanocobalamin (VITAMIN B12) Inject 1 mL 1 mL 11 2016 1000 MCG/ML (1,000 mcg) into injectionIndications: B12 the muscle every deficiency 30 days fluorouracil (EFUDEX) 5 % Apply topically 40 [...] Oxygen with nasal cannula at 1-2 liters order for DMEIndications: Injection 12 each 0 01/28/2017 B12 deficiency Supplies for Vitamin B12: 3cc syringes w/ 29 gauge needles 1/2 inch length cholecalciferol (VITAMIN D) Take 1 tablet 100 tablet 3 04/0705/09/2017 1000 UNIT tabletIndications: (1,000 Units) by Osteopenia mouth daily Discontinue Vitamin D 89107 multivitamin (THERA-PLUS) Take 5 mLs by 0 05/09/2017 LIQD mouth daily. rOPINIRole (REQUIP) 1 MG Take 1 tablet (1 45 tablet 11 01/2805/09/2017 tabletIndications: Restless mg) by mouth At leg Bedtime May take 1/2 tab additional prn once daily. documented as of this encounter ED Notes Rocco Rojas RN - 04/22/2017 12:28 PM CST Patient to xray. [employer] WORK[employer] Rocco Rojas RN - 04/22/2017 12:00 PM CST Attempted to start PIV on patient. One failed attempt but able to draw blood. Labeled and sent to lab. [employer]ATEMENT WORKER Maria Victoria Bello RN - 04/22/2017 11:40 [...] and Surgical History, and Social History inthe [email or web address] system. Review of Systems Constitutional: Negative for [...] sinus rhythm with occasional pvc's Rate: normal Johnston: normal ST Segments/ T Waves: No ST-T [...] file Final diagnoses: Palpitations Dizziness Nausea 04/22/2017 [facility], EMERGENCY DEPARTMENT Allison Domínguez MD 04/22/17 1321 [employer] WORK[employer] documented in this encounter Plan of Treatment Not on filedocumented as of this encounter Procedures Procedure Name Priority Date/Time Associated Comments Diagnosis XR CHEST 2 VIEWS STAT 04/22/2017 12:32 Results for this PM [employer] procedure are i n the results section. CBC WITH PLATELETS & STAT 04/22/2017 12:18 Res ults for this DIFFERENTIAL PM [employer] procedure are i n the results section. TSH WITH FREE T4 Routine 04/22/2017 12:18 Results for this REFLEX PM [employer] procedure are i n the results section. TROPONIN I STAT 04/22/2017 12:18 Results for this PM [employer] procedure are i n the results section. BASIC METABOLIC PANEL STAT 04/22/2017 12:18 Re sults for this PM [employer] procedure are i n the results section. EKG 12-LEAD, TRACING STAT 04/22/2017 11:49 Res ults for this ONLY AM [employer] WORK[employer] procedure are i n the results section. documented in this encounter Results XR Chest 2 Views (04/22/2017 12:32 PM [employer]AT[employer] WORKER) Anatomical Region Laterality Modality Chest Digital Radiography Specimen (Source) Anatomical Location Collection Method / Collectio n Time Received Time / Laterality Volume Impressions 04/22/2017 3:04 PM [employer] WORKER IMPRESSION: No acute cardiopulmonary abnormality. I have personally reviewed the examinati on and initial interpretation and I agree with the findings. JAKE WEATHERS MD Narrative 04/22/2017 3:04 PM [employer] WORKER XR CHEST 2 VW ??04/22/2017 12:32 PM [...] with free T4 reflex (04/22/2017 12:18 PM [employer]AT[employer] WORKER) P athologist Signature TSH 3.72 0.40 - 4.00 04/22/2017 [facility] mU/L 1:02 PM [facility] Specimen Anatomical Collection Method Collection Time Receive d Time (Source) Location / / Volume Laterality 04/22/2017 12:18 04/22/2017 PM [employer] WORK[employer] 12:34 PM [employer] WORKER Allison Domínguez MD LAB - BLOOD ORDERABLES Performing Organization Address City/[facility]/ZIP Code Phon e Number [facility] [address] [place] [address] [facility] Troponin I (04/22/2017 12:18 PM [employer]AT[employer] WORKER) P athologist Signature Troponin I ES <0.015 0.000 - 04/22/2017 [facility] 0.045 ug/L 12:58 PM [facility] Comment: The 99th percentile for upper reference range is 0.045 ug/L. ??Troponin values in the range of 0.045 - 0.120 ug/L may b e associated with risks of adverse clinical events. Specimen Anatomical Collection Method Collection Time Receive d Time (Source) Location / / Volume Laterality Blood specimen 04/22/2017 12:18 8 (specimen) PM [employer] WORKER 12:34 PM [employer] WORKER Allison Domínguez MD LAB - BLOOD ORDERABLES Performing Organization Address City/[facility]/ZIP Code Phon e Number [facility] [address] [place] [address] [facility] (ABNORMAL) Basic metabolic panel (04/22/2017 12:18 PM [employer]AT[employer] WORKER) P athologist Signature Sodium 141 133 - 144 04/22/2017 [facility] mmol/L 12:58 PM [facility] Potassium 3.7 3.4 - 5.3 04/22/2017 [facility] mmol/L 12:58 PM [facility] Chloride 109 94 - 109 04/22/2017 [facility] mmol/L 12:58 PM [facility] Carbon Dioxide 25 20 - 32 04/22/2017 [facility] mmol/L 12:58 PM [facility] Anion Gap 7 3 - 14 04/22/2017 [facility] mmol/L 12:58 PM [facility] Glucose 82 70 - 99 04/22/2017 [facility] mg/dL 12:58 PM [facility] Urea Nitrogen 10 7 - 30 04/22/2017 [facility] mg/dL 12:58 PM [facility] Creatinine 0.84 0.52 - 04/22/2017 [facility] 1.04 mg/dL 12:58 PM [facility] GFR Estimate 69 >60 04/22/2017 [facility] [place] [facility] mL/min/1.7 12:[address] Comment: Non GFR Calc GFR Estimate If 83 >60 mL/min/1.7m2 04/22/2017 12:58 PM [facility] Black [facility] Comment: GFR Calc Calcium 8.2 (L) 8.5 - 10.1 mg/dL 04/22/2017 12:58 PM [employer]AT[employer] WORKER [facility] Specimen Anatomical Collection Method Collection Time Receive d Time (Source) Location / / Volume Laterality Blood specimen 04/22/2017 12:18 8 (specimen) PM [employer] WORKER 12:34 PM [employer] WORKER Allison Domínguez MD LAB - BLOOD ORDERABLES Performing Organization Address City/State/ZIP Code Phon e Number [facility] [address] [place] [address] [facility] CBC with platelets differential (04/22/2017 12:18 PM [employer]ATEMENT WORKER) [facility] gist Method Time Signature WBC 6.1 4.0 - 04/22/2017 [facility] 11.0 12:37 PM [facility] 10e9/L [facility] RBC Count 4.55 3.8 - 5.2 04/22/2017 [facility] 10e12/L 12:37 PM [facility] Hemoglobin 13.4 11.7 - 04/22/2017 [facility] 15.7 g/dL 12:37 PM [facility] Hematocrit 41.8 35.0 - 04/22/2017 [facility] 47.0 % 12:37 PM [facility] MCV 92 78 - 100 04/22/2017 [facility] fl 12:37 PM [facility] MCH 29.5 26.5 - 04/22/2017 [facility] 33.0 pg 12:37 PM [facility] MCHC 32.1 31.5 - 04/22/2017 [facility] 36.5 g/dL 12:37 PM [facility] RDW 12.6 10.0 - 04/22/2017 [facility] 15.0 % 12:37 PM [facility] Platelet Count 179 150 - 450 04/22/2017 [facility] 10e9/L 12:37 PM [facility] Diff Method Automated 04/22/2017 [facility] Method 12:37 PM [facility] % Neutrophils 70.3 % 04/22/2017 [facility] 12:37 PM [facility] % Lymphocytes 19.5 % 04/22/2017 [facility] 12:37 PM [facility] % Monocytes 9.4 % 04/22/2017 [facility] 12:37 PM [facility] % Eosinophils 0.5 % 04/22/2017 [facility] 12:37 PM [facility] % Basophils 0.3 % 04/22/2017 [facility] 12:37 PM [facility] % Immature 0.0 % 04/22/2017 [facility] Granulocytes 12:37 PM [facility] Nucleated RBCs 0 0 /100 04/22/2017 [facility] 12:37 PM [facility] Absolute 4.3 1.6 - 8.3 04/22/2017 [facility] Neutrophil 10e9/L 12:37 PM [facility] Absolute 1.2 0.8 - 5.3 04/22/2017 [facility] Lymphocytes 10e9/L 12:37 PM [facility] Absolute 0.6 0.0 - 1.3 04/22/2017 [facility] Monocytes 10e9/L 12:37 PM [facility] Absolute 0.0 0.0 - 0.7 04/22/2017 [facility] Eosinophils 10e9/L 12:37 PM [facility] Absolute 0.0 0.0 - 0.2 04/22/2017 [facility] Basophils 10e9/L 12:37 PM [facility] Abs Immature 0.0 0 - 0.4 04/22/2017 [facility] Granulocytes 10e9/L 12:37 PM [facility] Absolute 0.0 04/22/2017 [facility] Nucleated RBC 12:37 PM [facility] Specimen Anatomical Collection Method Collection Time Receive d Time (Source) Location / / Volume Laterality Blood specimen 04/22/2017 12:18 8 (specimen) PM [employer] 12:34 PM [employer] WORKER Allison Domínguez MD LAB - BLOOD ORDERABLES Performing Organization Address City/State/ZIP Code Phon e Number [facility] [address] [place] [address] [facility] EKG 12-lead, tracing only (04/22/2017 11:49 AM [employer]ATEMENT WORKER) [facility] gist Method Time Signature Interpretation ECG Click View RADIOLOGY Image link RESULTS to view waveform and result Specimen (Source) Anatomical Collection Method Collection Time Re ceived Time Location / / Volume Laterality 04/22/2017 11:49 AM [employer]AT[employer] WORKER Allison Domínguez MD ECG ORDERABLES Performing Organization Address City/State/ZIP Code Phon e Number RADIOLOGY RESULTS documented in this encounter Visit Diagnoses Diagnosis Palpitations Dizziness Dizziness and giddiness Nausea Nausea alone documented in this encounter Additional Health Concerns Assessment Noted Time PHQ-9 Depression Total Score: 3 01/28/2017 10:28 AM CS T documented as of this encounter Care Teams Dismantler Relationship Specialty Start Date End Date dEison Tam, PCP - General Family Practice 07/23/[address] [place] [address] [place] [address] [place] [address] Sheri Casey MD Pulmonary Disease 07/23/[address] [place] [address] [facility] [address] [place] [address] Alphonso Billy MD Cardiology 08/12/[address] [id number] Roland Holt MD Resident Student in [facility] 05/12/15 09/24/18 [facility] education/training program Amita Ryan MD MD Internal Medicine 12/19/[address] [place] [address] [id number] [place], [place] [address] Sid Lilly MD Orthopaedic Surgery 02/22/16 MD Alivia [facility] [address] [place], [place] [id number] Neda Boland, NANDINI Nurse Coordinator Neurology 02/23/16 09/01/18 documented as of this encounter
--- OUTSIDE RECORDS SUMMARY | 2021-10-26 13:31 | XMS_ITS | Encounter Summary ---
:1955 Author Organization [place] Address [address] [place] [address] Care Team Providers Name Role Phone Edison Tam MD Primary Care Provider Sheri Casey MD Unavailable Alphonso Billy MD Unavailable Roland Holt MD Unavailable Amita Ryan MD Unavailable Sid Lilly MD Unavailable [phone] Neda Boland RN Unavailable Reason for Visit Reason Comments RECHECK Age related Osteoporosis Consultation - Closed Specialty Diagnoses / Procedures Referred By Contact Refer red To Contact Diagnoses Senile osteoporosis Edison Tam MD 9 [facility] 4 [place], [place] [address] Referral ID Status Reason Start Date Expiration Date Visits Requ ested Visits Authorized [id number] Closed 05/07/2017 05/07/2018 1 1 Encounter Details Date Type Department Care Team Description 06/19/2017 Office Visit Laisha Wong Hypocalcemi silke (Primary Dx); Endocrinology MD Silke Senile osteoporosis; 9 [facility] [address] History of corticosteroid th erapy; 3rd Floor [facility] Loss of weight; [place], [place], [place] Hypothyro idism, unspecified type [id number] [phone] Social History Tobacco Use Types Packs/Day Years [...] and almond milk products are calcium fortified [place] juice Fortified with Calcium 8 oz 300 [...] osteoporosis. I have reviewed Care Everywhere including [facility] lab reports, imaging reports and provider notes [...] bone gain at the right hip compared [id number]. She has had 2 fractures, one related to fall down steps and one related to fall while roller skating. Her height is down 1 inch from maximum baseline. She took Actonel in the past, until it was stopped after an esophageal ulcer. She got IV Reclast (delivered in [place]), stopped around 2011 when her dentist advised [...] dose to 200 mg in 1 week [id number] mg in 2 weeks. 90 capsule 3 [...] cyanosis or edema. DATA REVEIW ENDO THYROID LABS-[facility] Latest Ref Rng 08/31/2013 04/02/2013 12/03/2012 TSH 0.4 - 5.0 mU/L 0.65 1.08 0.86 T4 FREE 0.70 - 1.85 ng/dL 1.25 ENDO CALCIUM LABS-[facility] Latest Ref Rng 08/31/2013 04/02/2013 CALCIUM [...] - 8.8 g/dL 7.2 6.9 ENDO CALCIUM LABS-[facility] Latest Ref Rng 01/28/2013 CALCIUM 8.5 [...] Results Adrenal corticotropin (06/20/2017 8:16 AM CDT) [facility] Method Time Signature Adrenal 30 <47 pg/mL 06/20/2017 [facility] Corticotropin 2:52 PM CDT [facility] Specimen Anatomical Collection Method Collection Time Receive d Time (Source) Location / / Volume Laterality Blood specimen 06/20/2017 8:16 AM 018 8:17 (specimen) CDT AM CDT Laisha Moraes MD LAB - BLOOD ORDERABLES Performing Organization Address City/State/ZIP Code Phon e Number [address] [address] [facility] Cortisol (06/20/2017 8:16 AM CDT) athologist Signature Cortisol Serum 9.8 4 - 22 06/20/2017 [facility] ug/dL 10:37 AM CDT [facility] Comment: 8 AM Cortisol Reference Range = 4-22 ug/ dL 4 PM Cortisol Reference Range = 3-17 ug/ dL Specimen Anatomical Collection Method Collection Time Receive d Time (Source) Location / / Volume Laterality Blood specimen 06/20/2017 8:16 AM 018 8:17 (specimen) CDT AM CDT Laisha Moraes MD LAB - BLOOD ORDERABLES Performing Organization Address City/[facility]/ZIP Code Phon e Number [address] [address] [facility] (ABNORMAL) TSH (06/20/2017 8:15 AM CDT) athologist Signature TSH 4.75 (H) 0.40 - 4.00 06/20/2017 [facility] mU/L 8:46 AM CDT [facility] Specimen Anatomical Collection Method Collection Time Receive d Time (Source) Location / / Volume Laterality Blood specimen 06/20/2017 8:15 AM 018 8:16 (specimen) CDT AM CDT Laisha Moraes MD LAB - BLOOD ORDERABLES Performing Organization Address City/State/ZIP Code Phon e Number [address] [address] [facility] T4 free (06/20/2017 8:15 AM CDT) athologist Signature T4 Free 0.98 0.76 - 1.46 06/20/2017 [facility] ng/dL 8:46 AM CDT [facility] Specimen Anatomical Collection Method Collection Time Receive d Time (Source) Location / / Volume Laterality Blood specimen 06/20/2017 8:15 AM 018 8:16 (specimen) CDT AM CDT Laisha Moares MD LAB - BLOOD ORDERABLES Performing Organization Address City/State/ZIP Code Phon e Number [address] [address] [facility] Vitamin D Deficiency (D3 Only) (06/20/2017 8:15 AM CDT) athologist Signature Vitamin D 27 20 - 75 06/20/2017 [facility] Deficiency ug/L 1:31 PM CDT [facility] Comment: Season, race, dietary intake, and treatm ent affect the concentration of 25-jzkntbd-Nvdxtoh D. Values may decreas e during winter [...] Organization Address City/State/ZIP Code Phon e Number [address] [address] [facility] Parathyroid Hormone Intact (06/20/2017 8:15 AM CDT) athologist Signature Parathyroid 36 18 - 80 06/20/2017 [facility] Hormone Intact pg/mL 11:15 AM CDT [facility] Specimen Anatomical Collection Method Collection Time Receive d Time (Source) Location / / Volume Laterality Blood specimen 06/20/2017 8:15 AM 018 8:16 (specimen) CDT AM CDT Laisha Moraes MD LAB - BLOOD ORDERABLES Performing Organization Address City/State/ZIP Code Phon e Number [address] [place] [address] [facility] Phosphorus (06/20/2017 8:15 AM CDT) P athologist Signature Phosphorus 4.3 2.5 - 4.5 06/20/2017 [facility] mg/dL 8:46 AM CDT [facility] Specimen Anatomical Collection Method Collection Time Receive d Time (Source) Location / / Volume Laterality Blood specimen 06/20/2017 8:15 AM 018 8:16 (specimen) CDT AM CDT Laisha Moraes MD LAB - BLOOD ORDERABLES Performing Organization Address City/[facility]/ZIP Code Phon e Number [address] [address] [facility] Calcium (06/20/2017 8:15 AM CDT) P athologist Signature Calcium 8.5 8.5 - 10.1 06/20/2017 [facility] mg/dL 8:46 AM CDT [facility] Specimen Anatomical Collection Method Collection Time Receive d Time (Source) Location / / Volume Laterality Blood specimen 06/20/2017 8:15 AM 018 8:16 (specimen) CDT AM CDT Laisha Moraes MD LAB - BLOOD ORDERABLES Performing Organization Address City/[facility]/ZIP Code Phon e Number [address] [address] [facility] documented in this encounter Visit Diagnoses Diagnosis Hypocalcemia - Primary Senile osteoporosis History of corticosteroid therapy Personal history of systemic steroid the rapy Loss of weight Hypothyroidism, unspecified type documented in this encounter Additional Health Concerns Assessment Noted Time PHQ-9 Depression Total Score: 3 01/28/2017 10:28 AM CS T documented as of this encounter Care Teams Utilization Specialist Relationship Specialty Start Date End Date Edison Tam, PCP - General Family Practice 07/23/[address] [place] [address] [address] [place], [place] [id number] Sheri Casey MD Pulmonary Disease 07/23/[address] [place] [address] [address] [place], [place] [address] Alphonso Billy MD Cardiology 08/12/14 8 [address] [place], [place] [address] Roland Holt MD Resident Student in [facility] [place] 05/12/15 09/24/18 [facility] education/training program Amita Ryan MD MD Internal Medicine 12/19/15 [address] [facility] [id number] [place], [place] [address] Sid Lilly MD Orthopaedic Surgery 02/22/16 MD Alivia [facility] [address] [facility] [address] [place], [place] [id number] Neda Boland, RN Nurse Coordinator Neurology 02/23/16 09/01/18 documented as of this encounter
--- OUTSIDE RECORDS SUMMARY | 2021-10-26 13:31 | XMS_ITS | Encounter Summary ---
:1955 Author Organization [place] Address [address] [place] [address] Care Team Providers Name Role Phone Edison Tam MD Primary Care Provider Sheri Casey MD Unavailable Alphonso Billy MD Unavailable Roland Holt MD Unavailable Amita Ryan MD Unavailable Sid Lilly MD Unavailable [phone] Neda Boland RN Unavailable Encounter Details Date Type Department Care Team Description 06/20/2017 Orders Only [facility] Hypocalcemia; [address] [facility] [address] Senile osteoporosis; 1st Floor [place] [address] Social History Tobacco Use Types [...] 06/20/2017 [facility] Corticotropin 2:52 PM CDT [facility] Specimen Anatomical Collection Method Collection Time Receive d Time (Source) Location / / Volume Laterality Blood specimen 06/20/2017 8:16 AM 018 8:17 (specimen) CDT AM CDT Laisha Moraes MD LAB - BLOOD ORDERABLES Performing Organization Address City/State/ZIP Code Phon e Number [facility] [address] [place] [address] [facility] Cortisol (06/20/2017 8:16 AM CDT) P athologist Signature Cortisol Serum 9.8 4 - 22 06/20/2017 [facility] ug/dL 10:37 AM CDT [facility] Comment: 8 AM Cortisol Reference Range = [...] e Number [facility] [address] [place], [place] [phone] [place] [address] (ABNORMAL) TSH (06/20/2017 8:15 AM CDT) athologist Signature TSH 4.75 (H) 0.40 - 4.00 06/20/2017 [facility] mU/L 8:46 AM CDT [facility] Specimen Anatomical Collection Method Collection Time Receive d Time (Source) Location / / Volume Laterality Blood specimen 06/20/2017 8:15 AM 018 8:16 (specimen) CDT AM CDT Laisha Moraes MD LAB - BLOOD ORDERABLES Performing Organization Address City/State/ZIP Code Phon e Number [phone] [place] [address] [facility] T4 free (06/20/2017 8:15 AM CDT) athologist Signature T4 Free 0.98 0.76 - 1.46 06/20/2017 [facility] ng/dL 8:46 AM CDT [facility] Specimen Anatomical Collection Method Collection Time Receive d Time (Source) Location / / Volume Laterality Blood specimen 06/20/2017 8:15 AM 018 8:16 (specimen) CDT AM CDT Laisha Moraes MD LAB - BLOOD ORDERABLES Performing Organization Address City/[facility]/ZIP Code Phon e Number [phone] [place] [address] [facility] Vitamin D Deficiency (D3 Only) (06/20/2017 8:15 AM CDT) athologist Signature Vitamin D 27 20 - 75 06/20/2017 [facility] Deficiency ug/L 1:31 PM CDT [facility] Comment: Season, race, dietary intake, and treatm ent affect the concentration of 68-mvpzbrv-Lhnrmnp D. Values may decreas e during winter [...] LAB - BLOOD ORDERABLES Performing Organization Address City/[facility]/ZIP Code Phon e Number [address] Parathyroid Hormone Intact (06/20/2017 8:15 AM CDT) P athologist Signature Parathyroid 36 18 - 80 06/20/2017 [facility] Hormone Intact pg/mL 11:15 AM CDT [facility] Specimen Anatomical Collection Method Collection Time Receive d Time (Source) Location / / Volume Laterality Blood specimen 06/20/2017 8:15 AM 018 8:16 (specimen) CDT AM CDT Laisha Moraes MD LAB - BLOOD ORDERABLES Performing Organization Address City/[facility]/ZIP Code Phon e Number [facility] [address] Phosphorus (06/20/2017 8:15 AM CDT) P athologist Signature Phosphorus 4.3 2.5 - 4.5 06/20/2017 [facility] mg/dL 8:46 AM CDT [facility] Specimen Anatomical Collection Method Collection Time Receive d Time (Source) Location / / Volume Laterality Blood specimen 06/20/2017 8:15 AM 018 8:16 (specimen) CDT AM CDT Laisha Moraes MD LAB - BLOOD ORDERABLES Performing Organization Address City/State/ZIP Code Phon e Number [facility] [address] [place] [address] [facility] Calcium (06/20/2017 8:15 AM CDT) P athologist Signature Calcium 8.5 8.5 - 10.1 06/20/2017 [facility] mg/dL 8:46 AM CDT [facility] Specimen Anatomical Collection Method Collection Time Receive d Time (Source) Location / / Volume Laterality Blood specimen 06/20/2017 8:15 AM 018 8:16 (specimen) CDT AM CDT Laisha Moraes MD LAB - BLOOD ORDERABLES Performing Organization Address City/State/ZIP Code Phon e Number [address] [address] [facility] documented in this encounter Visit Diagnoses Diagnosis Hypocalcemia Senile osteoporosis History of corticosteroid therapy Personal history of systemic steroid the rapy documented in this encounter Additional Health Concerns Assessment Noted Time PHQ-9 Depression Total Score: 3 01/28/2017 10:28 AM CS T documented as of this encounter Care Teams Wad Compressor Operator Adjuster Relationship Specialty Start Date End Date Edison Tam, PCP - General Family Practice 07/23/[address] [place] [address] 4 [place], [place] [address] Sheri Casey MD Pulmonary Disease 07/23/[address] [place] [address] 276 [place], [place] [address]105 Alphonso Billy MD Cardiology 08/12/[address] [place] [address] [phone] Roland Holt MD Resident Student in [employer] [facility] [facility] 05/12/15 09/24/18 [facility] education/training program Amita Ryan MD MD Internal Medicine 12/19/[address] [place] [address] [id number] [place] [address] Sid Lilly MD Orthopaedic Surgery 02/22/16 MD Alivia [address] [place], [place] [address] Neda Boland RN Nurse Coordinator Neurology 02/23/16 09/01/18 documented as of this encounter
--- OUTSIDE RECORDS SUMMARY | 2021-10-26 13:31 | XMS_ITS | Encounter Summary ---
:1955 Author Organization [place] Address [address] [place] [address] Care Team Providers Name Role Phone Edison Tam MD Primary Care Provider Sheri Casey MD Unavailable Alphonso Billy MD Unavailable Roland Holt MD Unavailable Amita Ryan MD Unavailable Sid Lilly MD Unavailable [phone] Neda Boland RN Unavailable Encounter Details Date Type Department Care Team Description 04/27/2017 Orders Only [facility] RODGERS (dyspnea on exertion); 9 [facility] SE Hypersomnia 1st Floor [place] [phone] Social History Tobacco Use Types Packs/Day [...] 04/27/2017 11:19 AM Hypersomnia Results for this BENCH CARPENTER RODGERS (dyspnea on procedure ar e in exertion) the results section. N TERMINAL PRO BNP Routine 04/27/2017 11:18 AM RODGERS (dyspnea on Results for this OUTPATIENT BENCH CARPENTER exertion) procedure are i n the results section. documented in this encounter Results Cortisol (04/27/2017 11:19 AM BENCH CARPENTER) P athologist Signature Cortisol Serum 8.8 4 - 22 04/27/2017 [facility] ug/dL 3:15 PM [facility] Comment: 8 AM Cortisol Reference Range = 4-22 ug/ dL 4 PM Cortisol Reference Range = 3-17 ug/ dL Specimen Anatomical Collection Method Collection Time Receive d Time (Source) Location / / Volume Laterality Blood specimen 04/27/2017 11:19 8 (specimen) AM BENCH CARPENTER 11:21 AM BENCH CARPENTER Omar Lomeli MD LAB - BLOOD ORDERABLES Performing Organization Address City/[facility]/ZIP Code Phon e Number [phone] [place] [address] N terminal pro BNP (04/27/2017 11:18 AM [facility]) athologist Signature N-Terminal Pro 92 0 - 125 04/27/2017 [facility] Bnp pg/mL 11:44 AM [facility] Comment: Reference range shown and results flagge [...] Blood specimen 04/27/2017 11:18 8 (specimen) AM BENCH CARPENTER 11:20 AM BENCH CARPENTER Omar Lomeli MD LAB - BLOOD ORDERABLES Performing Organization Address City/[facility]/ZIP Code Phon e Number [address] [address] [facility] documented in this encounter Visit Diagnoses Diagnosis RODGERS (dyspnea on exertion) Other dyspnea and respiratory abnormalit y Hypersomnia Hypersomnia, unspecified documented in this encounter Additional Health Concerns Assessment Noted Time PHQ-9 Depression Total Score: 3 01/28/2017 10:28 AM CS T documented as of this encounter Care Teams Field Return Repairer Relationship Specialty Start Date End Date Edison Tam, PCP - General Family Practice 07/23/[address] [place] [address] [address] 4 [place], [place] [phone] Sheri Casey MD Pulmonary Disease 07/23/14 420 [facility] 276 [place] [address] Alphonso Billy MD Cardiology 08/12/[address] [place] [phone] Roland Holt MD Resident Student in [facility] 05/12/15 09/24/18 health care education/training program Amita Ryan MD MD Internal Medicine 12/19/[address] [place] [address] [id number] [place], [place] 567975 Sid Lilly MD Orthopaedic Surgery 02/22/16 MD Alivia [facility] [address] [place], [place] [phone] Neda Boland, NANDINI Nurse Coordinator Neurology 02/23/16 09/01/18 documented as of this encounter
--- OUTSIDE RECORDS SUMMARY | 2021-10-26 13:32 | XMS_ITS | Encounter Summary ---
:1955 Author Organization [place] Address [address] [place] [address] Care Team Providers Name Role Phone Edison Tam MD Primary Care Provider Sheri Casey MD Unavailable Alphonso Billy MD Unavailable Roland Holt MD Unavailable Amita Ryan MD Unavailable Sid Lilly MD Unavailable [phone] Neda Boland RN Unavailable Encounter Details Date Type Department Care Team Description 02/24/2016 Office Visit [facility] Flavio Corona, Muscle tension dysphonia (Pr imary Dx); [address] [facility] COIN MACHINE OPERATOR Dyspnea on exertion 4th [place] [address] Social History Tobacco Use Types Packs/Day Years Used Date Former Smoker Cigarettes 1 18 11/11/1972 - 0 06/26/1981 Smokeless Tobacco: Former User Q uit: 09/20/1991 Alcohol Use Standard Drinks/Week Comments No 0 (1 standard drink = 0.6 oz pure alcoho l) Sex Assigned at Date Recorded Not on file documented as of this encounter Progress Notes Flavio Corona, COIN MACHINE OPERATOR - 02/24/2016 12:55 PM CST Images from the original note were not included. [facility] Aly Parikh Jr., M.D., F.A.C.S. Nathalia Lester M.D., M.P.H. Dipti Valente, Ph.D., [facility]/COIN MACHINE OPERATOR Norma Meredith M.M. (voice), M.Anayeli., [facility]/COIN MACHINE OPERATOR Flavio Corona M.M. (voice), MVarun., [facility]/COIN MACHINE OPERATOR [facility] INITIAL EVALUATION AND LARYNGEAL EXAMINATION REPORT [...] ??? Anemia Result of CO poisoning and exterminator helper prednisone use? History of blood transfusion [...] Bb3 ?? /i/ - D4 ?? Pitch Louise task ?? Low pitch - A3 ?? [...] mild LARYNGEAL EXAMINATION Tyron Corona M.M., M.A., CCC/COIN MACHINE OPERATOR accomplished the endoscopic laryngeal examination today. Verbal [...] of practice frequently throughout each day ?? [place] concepts of volitional practice to facilitate motor [...] 120 minutes EVALUATION OF VOICE AND RESONANCE: (03212): 45 minutes TREATMENT (21878): 45 minutes ENDOSCOPIC LARYNGEAL EXAMINATION WITH STROBOSCOPY (13610): 30 minutes NO CHARGE FACILITY FEE (23087) Tyron Corona M.M., M.A., [facility]-COIN MACHINE OPERATOR Speech-Language Pathologist Certificate of Vocology [phone] DING MAINTENANCE CUSTODIAN documented in this encounter Plan of Treatment Not on filedocumented as of this encounter Procedures Procedure Name Priority Date/Time Associated Diagnosis Comme nts [facility]IOR[facility] & Routine 02/24/2016 4:15 PM Muscle tension QUALITATIVE ANALYSIS BUILDING MAINTENANCE CUSTODIAN dysphonia VOICE AND RESONANCE Dyspnea on exertion [facility] SPEECH/HEARING Routine 02/24/2016 4:15 PM Muscle tension THERAPY, INDIVIDUAL BUILDING MAINTENANCE CUSTODIAN dysphonia Dyspnea on exertion [facility] LARYNGOSCOPY Routine 02/24/2016 4:15 PM Muscle tension FLEX/RIGID W STROBOSCOPY BUILDING MAINTENANCE CUSTODIAN dysphon ia Dyspnea on exertion IMAGESTREAM RECORDING Routine 02/24/2016 1:54 PM Muscle tensio n ORDER BUILDING MAINTENANCE CUSTODIAN dysphonia Dyspnea on exertion documented in this encounter Results IMAGESTREAM RECORDING ORDER (02/24/2016 1:54 PM BUILDING MAINTENANCE CUSTODIAN) Specimen (Source) Anatomical Collection Method Collection Time Re ceived Time Location / / Volume Laterality 02/24/2016 1:54 PM BUILDING MAINTENANCE CUSTODIAN Flavio Corona COIN MACHINE OPERATOR OTHER Performing Organization Address City/State/ZIP Code Phon e Number RADIOLOGY RESULTS documented in this encounter Visit Diagnoses Diagnosis Muscle tension dysphonia - Primary Dysphonia Dyspnea on exertion Other dyspnea and respiratory abnormalit y documented in this encounter Additional Health Concerns Assessment Noted Time PHQ-9 Depression Total Score: 14 05/13/2015 7:50 AM CS T documented as of this encounter Care Teams Engine Maintenance Mechanic Relationship Specialty Start Date End Date Edison Tam, PCP - General Family Practice 07/23/[address] [place] [address] 4 [place], [place] 0[address] Sheri Casey MD Pulmonary Disease 07/23/[address] [place] [address] 276 [place], [place] 054[address] Alphonso Billy MD Cardiology 08/12/[address] [place] [address] 009665 Roland Holt MD Resident Student in [facility] 05/12/15 09/24/18 [place] [phone] (Fax) education/training program Amita Ryan MD MD Internal Medicine 12/19/15 909 [facility] [id number] [place], [place] [address] Sid Lilly MD Orthopaedic Surgery 02/22/16 MD Alivia [facility] [place] [id number] [place] [address] Neda Boland, RN Nurse Coordinator Neurology 02/23/16 09/01/18 documented as of this encounter
--- OUTSIDE RECORDS SUMMARY | 2021-10-26 13:32 | XMS_ITS | Encounter Summary ---
:1955 Author Organization [place] Address [address] [place] [address] Care Team Providers Name Role Phone Edison Tam MD Primary Care Provider Sheri Casey MD Unavailable Alphonso Billy MD Unavailable Roland Holt MD Unavailable Amita Ryan MD Unavailable Sid Lilly MD Unavailable Neda Boland RN Unavailable Encounter Details Date Type Department Care Team Description 03/13/2016 Radiant Appointment [facility] Bushra Clarke Paresthesia; Center MRI Celia, Complaints of leg weakness 909 [facility] SE 909 [facility] 1st Floor [id number] [place] [address] [phone] Social History Tobacco Use Types Packs/Day Years [...] PM Paresthes ia Results for this CONTRAST BLASTING CAP ASSEMBLER Complaints of leg procedure are in weakness the results section. documented in this encounter Results MR Lumbar Spine w/o Contrast (03/13/2016 3:34 PM BLASTING CAP ASSEMBLER) Anatomical Region Laterality Modality Spine, SUBRAD MR MSK, UMP MR SPINE Magne tic Resonance Specimen (Source) Anatomical Location Collection Method / Collectio n Time Received Time / Laterality Volume Impressions 03/13/2016 4:18 PM BLASTING CAP ASSEMBLER Impression: 1. From the complete spine social worker palliative care images, there is a lumbarized S1 vertebral [...] ELDER LEO MD Narrative 03/13/2016 4:18 PM BLASTING CAP ASSEMBLER MR LUMBAR SPINE W/O CONTRAST 03/13/2016 3:34 [...] numbering convention , using the complete spine social worker palliative care images, there are 5 lumbar type ve [...] numbering convention , using the complete spine social worker palliative care images, there are 5 lumbar type ve [...] enosis. Impression: 1. From the complete spine social worker palliative care images, there is a lumbarized S1 vertebral [...] L4-5. ELDER LEO MD Bushra Clarke APRN COATER SMOKING PIPE IMG MRI ORDERAB LES documented in this encounter Visit Diagnoses Diagnosis Paresthesia Disturbance of skin sensation Complaints of leg weakness Other musculoskeletal symptoms referable to limbs documented in this encounter Additional Health Concerns Assessment Noted Time PHQ-9 Depression Total Score: 14 05/13/2015 7:50 AM CS T documented as of this encounter Care Teams Sole Rounder Relationship Specialty Start Date End Date Edison Tam, PCP - General Family Practice 07/23/[address] [place] [address] [address] 4 [place], [place] 8[address] Sheri Casey MD Pulmonary Disease 07/23/14 420 [facility] 276 [place], [place] 5[address] Alphonso Billy MD Cardiology 08/12/14 8 420 [place], [place] 149445 Roland Holt MD Resident Student in [facility] 05/12/15 09/24/18 health care education/training program Amita Ryan MD MD Internal Medicine 12/19/15 909 [facility] [id number] [place] [address] Sid Lilly MD Orthopaedic Surgery 02/22/16 MD Al[address] [facility] [address] [place] [address] Neda Boland, NANDINI Nurse Coordinator Neurology 02/23/16 09/01/18 documented as of this encounter
--- OUTSIDE RECORDS SUMMARY | 2021-10-26 13:32 | XMS_ITS | Encounter Summary ---
:1955 Author Organization [place] Address [address] [place] [address]. [place] [address] Care Team Providers Name Role Phone Edison Tam MD Primary Care Provider Sheri Casey MD Unavailable Alphonso Billy MD Unavailable Roland Holt MD Unavailable Amita Ryan MD Unavailable Sid Lilly MD Unavailable [phone] Neda Boland RN Unavailable Encounter Details Date Type Department Care Team Description 02/06/2017 Medical Correspondence [facility] LYNDON Valdes ORDER FOR Health Info Mgmt Non-Provider DIABETES TE STING Srvcs SUPPLY [address] [place] [address] Social History Tobacco Use Types Packs/Day [...] documented as of this encounter Care Teams Financial Administrator Relationship Specialty Start Date End Date Edison Tam, PCP - General Family Practice 07/23/[address] [facility] FL 4 [place], [place] [address] Sheri Casey MD Pulmonary Disease 07/23/14 420 [facility] 276 [place], [place] [phone] Alphonso Billy MD Cardiology 08/12/[address] [place] [address] [id number] Roland Holt MD Resident Student in [facility] 05/12/15 09/24/18 health [facility] education/training program Amita Ryan MD MD Internal Medicine 12/19/[address] [facility] [id number] [place], [place] [phone] Sid Lilly MD Orthopaedic Surgery 02/22/16 MD Alivia [address] [facility] [address] [place], [place] [id number] Neda Boland, NANDINI Nurse Coordinator Neurology 02/23/16 09/01/18 documented as of this encounter
--- OUTSIDE RECORDS SUMMARY | 2021-10-26 13:32 | XMS_ITS | Encounter Summary ---
:1955 Author Organization [place] Address [address] [place] [address] Care Team Providers Name Role Phone Edison Tam MD Primary Care Provider Sheri Casey MD Unavailable Alphonso Billy MD Unavailable Roland Holt MD Unavailable Amita Ryan MD Unavailable Encounter Details Date Type Department Care Team Description 01/12/2016 Orders Only [facility] Pulmonary SOB (shor tness of breath) Function Testing (Primary Dx) 9 [facility] 3rd [place], [place] [phone] Social History Tobacco Use [...] [facility] PFT FEV1-%Pred-Pre 115 % [facility] [id number] 79 % [facility] [id number] 82 % [facility]ZE PFT FEFMax-Pred 5.93 L/sec [facility]REEZE PFT FEFMax-Pre 5.92 L/sec [facility]REEZE PFT FEFMax-%Pred-Pr 99 % [facility] PFT e [id number] 2.13 L/sec [facility]REEZE PFT [id number] 2.90 L/sec [facility]REEZE PFT [id number]-%Pred-P 136 % [facility] PFT re ExpTime-Pre 7.25 sec [facility]REEZE PFT FIFMax-Pre 3.36 L/sec [facility]ZE PFT VC-Pred 2.99 L [facility]FT VC-Pre 3.56 L [facility] PFT VC-%Pred-Pre 118 % [facility]ZE PFT IC-Pred 2.18 L [facility] PFT IC-Pre 2.89 L [facility]ZE PFT IC-%Pred-Pre 132 % [facility]REEZE PFT ERV-Pred 0.81 L [facility] PFT ERV-Pre 0.67 L [facility] PFT ERV-%Pred-Pre 82 % [facility]REEZE PFT [id number] 81 % [facility]REEZE PFT [id number] 82 % BREEZE PFT FRCPleth-Pred 2.59 L [...] BREEZE PFT VA-%Pred-Pre 103 % [facility] PFT [id number] 77 % [facility] PFT [id number] 75 % [facility] Specimen (Source) Anatomical Collection Method Collection Time Re ceived Time Location / / Volume Laterality 01/12/2016 1:19 PM CDT Narrative [facility] PFT - 01/25/2016 10:49 AM COMPRESSION MOLDING MACHINE OPERATOR The FVC, FEV1, FEV1/FVC ratio are within [...] documented as of this encounter Care Teams Yard Truck Driver Relationship Specialty Start Date End Date Edison Tam MD PCP - General Family Practice 07/23/14 909 [facility] 4 [place] [address] Sheri Casey MD MD Pulmonary Disease 07/23/14 420 [facility] 276 [place] [address] Alphonso Billy MD MD Cardiology 08/12/14 12/26/17 420 [place] [address] Roland Holt MD Resident Student in [facility] 05/12/15 09/24/18 health care education/training program Amita Ryan MD MD Internal Medicine 12/19/15 909 [facility] [id number] [place], [place] [phone] documented as of this encounter
--- OUTSIDE RECORDS SUMMARY | 2021-10-26 13:32 | XMS_ITS | Encounter Summary ---
:1955 Author Organization [place] Address [address] [place] [address] Care Team Providers Name Role Phone Edison Tam MD Primary Care Provider Sheri Casey MD Unavailable Alphonso Billy MD Unavailable Roland Holt MD Unavailable Amita Ryan MD Unavailable Reason for Visit Reason Onset Date Comments Refill Request 12/28/2015 Encounter Details Date Type Department Care Team Description 12/28/2015 Refill [facility] Gastroenterology and Lila Quiros RN Refill Request [facility] [address] [place], [place] [phone] Social History Tobacco Use Types Packs/Day [...] documented as of this encounter Care Teams Wellness Health Coach Relationship Specialty Start Date End Date Edison Tam MD PCP - General Family Practice 07/23/14 909 [facility] FL 4 [place], [place] [address] Sheri Casey MD MD Pulmonary Disease 07/23/14 420 [facility] 276 [place] [address] Alphonso Billy MD MD Cardiology 08/12/14 12/26/17 420 [place], [place] [phone] Roland Holt MD Resident Student in [facility] 05/12/15 09/24/18 health [facility] education/training program Amita Ryan MD MD Internal Medicine 12/19/15 909 [facility] [id number] [place], [place] [phone] documented as of this encounter
--- OUTSIDE RECORDS SUMMARY | 2021-10-26 13:32 | XMS_ITS | Encounter Summary ---
:1955 Author Organization [place] Address [address] [place] [address] Care Team Providers Name Role Phone Edison Tam MD Primary Care Provider Sheri Casey MD Unavailable Alphonso Billy MD Unavailable Roland Holt MD Unavailable Amita Ryan MD Unavailable Reason for Visit Reason Onset Date Comments Previsit 02/01/2016 records in [facility] Encounter Details Date Type Department Care Team Description 02/01/2016 PRE VISIT [facility] Neurology Bushra Clarke Previsit (records in [address] [place] [address] EREN Yang [facility]) [address]rd Floor [address] [address] [id number] [phone] [place] [address] (Wo rk) Social History Tobacco [...] in epic 4. Previous care at: - [facility] Primary Care Center [employer] UTILITY WORKER documented in this encounter Plan of Treatment Not on filedocumented as of this encounter Visit Diagnoses Not on filedocumented in this encounter Additional Health Concerns Assessment Noted Time PHQ-9 Depression Total Score: 14 05/13/2015 7:50 AM CS T documented as of this encounter Care Teams Wrapping Checker Relationship Specialty Start Date End Date Edison Tam MD PCP - General Family Practice 07/23/14 909 [facility] 4 [place], [place] [address] Sheri Casey MD MD Pulmonary Disease 07/23/14 420 [facility] 276 [place], [place] [phone] Alphonso Billy MD MD Cardiology 08/12/14 12/26/17 420 [place], [place] 9[address] Roland Holt MD Resident Student in [facility] 05/12/15 09/24/18 [facility] education/training program Amita Ryan MD MD Internal Medicine 12/19/15 909 [facility] [id number] [place], [place] [address] documented as of this encounter
--- OUTSIDE RECORDS SUMMARY | 2021-10-26 13:32 | XMS_ITS | Encounter Summary ---
:1955 Author Organization [place] Address [address] [place] [address] Care Team Providers Name Role Phone Edison Tam MD Primary Care Provider Sheri Casey MD Unavailable Alphonso Billy MD Unavailable Roland Holt MD Unavailable Amita Ryan MD Unavailable Reason for Visit Reason Onset Date Comments Refill Request 02/07/2016 Ropinirole Encounter Details Date Type Department Care Team Description 02/07/2016 Refill [facility] Primary Care Edison Tam efill Request [facility] MD Marcia (Ropinirole) [address] [place] [address] Floor 4 [place] [address] [phone] (Wo rk) Social History Tobacco Use Types [...] documented as of this encounter Care Teams Level Glass Forming Machine Operator Relationship Specialty Start Date End Date Edison Tam MD PCP - General Family Practice 07/23/14 909 [facility] FL 4 [place], [place] [phone] Sheri Casey MD MD Pulmonary Disease 07/23/14 420 [facility] MMC 276 [place], [place] [phone] Alphonso Billy MD MD Cardiology 08/12/14 12/26/17 [address] [place], [place] [phone] Roland Holt MD Resident Student in [facility] 05/12/15 09/24/18 health [facility] education/training program Amita Ryan MD MD Internal Medicine 12/19/15 909 [facility] [id number] [place], [place] [phone] documented as of this encounter
--- OUTSIDE RECORDS SUMMARY | 2021-10-26 13:32 | XMS_ITS | Encounter Summary ---
:1955 Author Organization [place] Address [facility] [place] [address] Care Team Providers Name Role Phone Edison Olivas MD Primary Care Provider Sheri Casey MD Unavailable Alphonso Billy MD Unavailable Roland Holt MD Unavailable Amita Ryan MD Unavailable Reason for Visit (Routine) - Closed Specialty Diagnoses / Procedures Referred By Contact Refer red To Contact Cardiology Diagnoses [facility] Z Uu Echocardiography Procedures ECH DOBUTAMINE STRESS TEST 500 [place] [address] Phone: Referral ID Status Reason Start Date Expiration Date Visits Requ ested Visits Authorized [id number] Closed 01/30/2016 01/29/2017 1 1 Encounter Details Date Type Department Care Team Description 01/31/2016 Hospital Encounter [facility], [place], Jose Martin Otto, Chest pressure Echocardiography 500 [facility] [address] [facility] [place] [address] 508 [place], [place] [address] (Wo rk) Social History Tobacco Use Types [...] by 0 01/28/2017 tablet mouth At Bedtime blood glucose monitoring (NO Use to test blood 100 each 3 12/19/2015 01/28/2017 BRAND SPECIFIED) test sugars one times stripIndications: Other daily or as abnormal glucose directed buPROPion (WELLBUTRIN SR) Take 300 mg by 0 01/28/2017 150 MG 12 hr tablet mouth every morning cholecalciferol (VITAMIN D) Take 1 tablet 100 tablet 3 04/0705/09/2017 1000 UNIT tabletIndications: (1,000 Units) by Osteopenia mouth daily Discontinue Vitamin D 35237 cyanocobalamin (VITAMIN B12) Inject 1 mL 1 mL 11 201501/28/2017 1000 MCG/ML (1,000 mcg) into injectionIndications: B12 the muscle every deficiency 30 days Levothyroxine Sodium 50 MCG Take 1 tablet by 90 capsule 2 05/09/2016 CAPSIndications: Yossi's mouth daily thyroiditis multivitamin (THERA-PLUS) Take 5 mLs by 0 [...] Res ults for this STRESS TEST WITH MAINTENANCE OF WAY SUPERINTENDENT procedure a re in DEFINITY the results section. documented in this encounter Results Echo stress test with definity (01/31/2016 10:[address] SUPERINTENDENT) Anatomical Region Laterality Modality Echocardiography Specimen (Source) Anatomical Collection Method Collection Time Re ceived Time Location / / Volume Laterality 01/31/2016 10:[address] SUPERINTENDENT Narrative 01/31/2016 10:[address] SUPERINTENDENT Interpretation Summary [facility] Echocardiography Laboratory [address] [place] [address] Name: LIZETTE MARIA E Angela : 1955 Study Date: 01/31/2016 10:04 AM Age: 60 yrs Gender: Female Patient Location: [facility] Reason For Study: , Other chest pain [...] dose of metoprolol was 2mg. Definity (ND #[id number]) given intra venously. Patient was given 4ml mixture of 1.5ml D efinity and 8.5ml saline. 6 ml wasted. Definity Expiration 01-09-2017 . Definity Lot # [id number] . Normal blood pressure response to medica [...] be different from the original. Interpretation Summary [facility] Echocardiography Laboratory 500 [place] [address] Name: MARIA E COLEY : 1955 Study Date: 01/31/2016 10:04 AM Age: 60 yrs Gender: Female Patient Location: [facility] Reason For Study: , Other chest pain [...] maximum dose of metoprolol was 2mg. Definity ([facility] #[id number]) given intra venously. Patient was given 4ml [...] injection 0.4 mg Given 01/31/2016 10:[address] SUPERINTENDENT 0.2 mg 0.4 mg, Intravenous, ONCE, On Sat01/31/16 at 1000, For 1 dose DOBUTamine 500 mg in New Bag 01/31/2016 10:[address] SUPERINTENDENT 30 mcg/kg/min 55.4 mL/hr dextrose 5% 250 mL (adult std) 5-40 mcg/kg/min ? 61.5 kg (9.225-73.8 mL/hr, rounded to 9.2-73.8 mL/hr), Intravenous, CONTINUOUS, Starting on Sat01/31/16 at 1000 metoprolol (LOPRESSOR) injection 15 mg Given 01/31/2016 10:[address] SUPERINTENDENT 2 mg 15 mg, Intravenous, EVERY 1 MIN PRN, high blood pressure, Starting on Sat01/31/16 at 0949 perflutren diluted in saline (DEFINITY) Given 01/31/2016 10:29 A M MAINTENANCE OF WAY SUPERINTENDENT 4 mLs injection 6 mL 6 mL, Intravenous, ONCE, On Sat01/31/16 at 1000, For 1 dose documented in this encounter Additional Health Concerns Assessment Noted Time PHQ-9 Depression Total Score: 14 05/13/2015 7:50 AM MILAD T documented as of this encounter Care Teams Hospital Ward Clerk Relationship Specialty Start Date End Date Edison Olivas MD PCP - General Family Practice 07/23/14 909 [facility] FL 4 [place] [address] Sheri Casey MD MD Pulmonary Disease 07/23/14 420 [facility] MMC 276 [place], [place] [phone] Alphonso Billy MD MD Cardiology 08/12/14 12/26/17 420 [place], [place] [phone] Roland Holt MD Resident Student in [facility] 05/12/15 09/24/18 [facility] education/training program Amita Ryan MD MD Internal Medicine 12/19/15 909 [facility] [id number] [place], [place] [address] documented as of this encounter
--- OUTSIDE RECORDS SUMMARY | 2021-10-26 13:32 | XMS_ITS | Encounter Summary ---
:1955 Author Organization [place] Address [address] [place] [address] Care Team Providers Name Role Phone Edison Tam MD Primary Care Provider Sheri Casey MD Unavailable Alphonso Billy MD Unavailable Roland Holt MD Unavailable Amita Ryan MD Unavailable Sid Lilly MD Unavailable Neda Boland RN Unavailable Reason for Visit Reason Onset Date Comments Refill Request 05/09/2016 Levothyroxine Sodium 50 MCG CAPS Encounter Details Date Type Department Care Team Description 05/09/2016 Refill M [facility] Primary Care Edison Tam efill Request Clinic MD Marcia (Levothyroxine Sodium 50 909 [facility] SE [address] [facility] [place] MCG CAPS) 4th Floor 4 [place] [address] [phone] (Wo rk) Social History Tobacco Use Types [...] # refills: 2 Last Office Visit with [facility] or [facility] prescribing provider: 12/19/15 Future Office visit: None TSH Date Value Ref Range Status 12/19/2015 0.93 0.40 - 4.00 mU/L Final ] ICE MASSAGE THERAPIST documented in this encounter Plan of Treatment Not on filedocumented as of this encounter Visit Diagnoses Diagnosis Yossi's thyroiditis Chronic lymphocytic thyroiditis documented in this encounter Additional Health Concerns Assessment Noted Time PHQ-9 Depression Total Score: 14 05/13/2015 7:50 AM CS T documented as of this encounter Care Teams Electrical Intern Relationship Specialty Start Date End Date Edison Tam, PCP - General Family Practice 07/23/[address] [place] [address] 4 [place] [address] Sheri Casey MD Pulmonary Disease 07/23/[address] [place] [address] MMC 276 [place], [place] [address] Alphonso Billy MD Cardiology 08/12/[address] [place] [address] Roland Holt MD Resident Student in [facility] 05/12/15 09/24/18 [facility] education/training program Amita Ryan MD MD Internal Medicine 12/19/[address] [place] [address] [id number] [place], [place] [phone] Sid Lilly MD Orthopaedic Surgery 02/22/16 MD Alivia [facility] [address] [address] Neda Boland, RN Nurse Coordinator Neurology 02/23/16 09/01/18 documented as of this encounter
--- OUTSIDE RECORDS SUMMARY | 2021-10-26 13:32 | XMS_ITS | Encounter Summary ---
:1955 Author Organization [place] Address [address] [place] [address] Care Team Providers Name Role Phone Edison Tam MD Primary Care Provider Sheri Casey MD Unavailable Alphonso Billy MD Unavailable Roland Holt MD Unavailable Amita Ryan MD Unavailable Sid Lilly MD Unavailable [phone] Neda Boland RN Unavailable Encounter Details Date Type Department Care Team Description 01/28/2017 Orders Only Health Lab Other abnormal glucose ; 9 [facility] Abnormal finding of blood ch emistry ; 1st Floor Yossi's thyroiditis [place], [place] [phone] Social History Tobacco Use [...] 11:13 Yossi's Results for this REFLEX AM DIRECTOR OF COLLECTIONS AND ARCHIVES thyroiditis procedure are i n the results section. LIPID REFLEX TO DIRECT Routine 01/28/2017 11:13 Abnormal findi ng of Results for this LDL PANEL AM DIRECTOR OF COLLECTIONS AND ARCHIVES blood chemistry procedure are in Other abnormal the results glucose section. HEMOGLOBIN A1C Routine 01/28/2017 11:13 Other abnormal Results for this AM DIRECTOR OF COLLECTIONS AND ARCHIVES glucose procedure are i n the results section. COMPREHENSIVE Routine 01/28/2017 11:13 Abnormal finding of Res ults for this METABOLIC PANEL AM DIRECTOR OF COLLECTIONS AND ARCHIVES blood chemistry procedure are in the results section. documented in this encounter Results Comprehensive metabolic panel (01/28/2017 11:13 AM DIRECTOR OF COLLECTIONS AND ARCHIVES) P athologist Signature Sodium 140 133 - 144 01/28/2017 [facility] mmol/L 12:02 PM [facility] Potassium 3.8 3.4 - 5.3 01/28/2017 [facility] mmol/L 12:02 PM [facility] Chloride 108 94 - 109 01/28/2017 [facility] mmol/L 12:02 PM [facility] Carbon Dioxide 23 20 - 32 01/28/2017 [facility] mmol/L 12:02 PM [facility] Anion Gap 9 3 - 14 01/28/2017 [facility] mmol/L 12:02 PM [facility] Glucose 82 70 - 99 01/28/2017 [facility] mg/dL 12:02 PM [facility] Urea Nitrogen 15 7 - 30 01/28/2017 [facility] mg/dL 12:02 PM [facility] Creatinine 0.82 0.52 - 01/28/2017 [facility] 1.04 mg/dL 12:02 PM [facility] GFR Estimate 71 >60 01/28/2017 [facility] mL/min/1.7 12:[address] Comment: Non GFR Calc GFR Estimate If 85 >60 mL/min/1.7m2 01/28/2017 12:02 PM [facility] Black [facility] Comment: GFR Calc Calcium 8.6 8.5 - 10.1 mg/dL 01/28/2017 12:02 PM [facility] Bilirubin Total 0.3 0.2 - 1.3 mg/dL 01/28/2017 12:02 P M [facility] Albumin 4.0 3.4 - 5.0 g/dL 01/28/2017 12:02 PM [facility] Protein Total 7.0 6.8 - 8.8 g/dL 01/28/2017 12:02 PM U [facility] Alkaline Phosphatase 69 40 - 150 U/L 01/28/2017 12:02 PM [facility] ALT 39 0 - 50 U/L 01/28/2017 12:02 PM [facility] AST 23 0 - 45 U/L 01/28/2017 12:02 PM [facility] Specimen Anatomical Collection Method Collection Time Receive d Time (Source) Location / / Volume Laterality Blood specimen 01/28/2017 11:13 7 (specimen) AM DIRECTOR OF COLLECTIONS AND ARCHIVES 11:15 AM DIRECTOR OF COLLECTIONS AND ARCHIVES Edison Tam MD LAB - BLOOD ORDERABLES Performing Organization Address City/[facility]/ZIP Code Phon e Number [place] [phone] [facility] TSH with free T4 reflex (01/28/2017 11:13 AM DIRECTOR OF COLLECTIONS AND ARCHIVES) athologist Signature TSH 2.12 0.40 - 4.00 01/28/2017 [facility] mU/L 12:02 PM [facility] Specimen Anatomical Collection Method Collection Time Receive d Time (Source) Location / / Volume Laterality Blood specimen 01/28/2017 11:13 7 (specimen) AM DIRECTOR OF COLLECTIONS AND ARCHIVES 11:15 AM DIRECTOR OF COLLECTIONS AND ARCHIVES Edison Tam MD LAB - BLOOD ORDERABLES Performing Organization Address City/State/ZIP Code Phon e Number [place] [phone] [facility] (ABNORMAL) Lipid panel reflex to direct LDL Fasting (01/28/2017 11:13 AM DIRECTOR OF COLLECTIONS AND ARCHIVES) athologist Signature Cholesterol 191 <200 mg/dL 01/28/2017 [facility] 12:02 PM [facility] Triglycerides 150 (H) <150 mg/dL 01/28/2017 [facility] 12:02 PM [facility] Comment: Borderline high: ??150-199 mg/dl High: ? 200-499 mg/dl Very high: ? >499 mg/dl HDL Cholesterol 92 >49 mg/dL 01/28/2017 12:02 PM [facility] LDL Cholesterol 69 <100 mg/dL 01/28/2017 12:02 PM [facility] Calculated [facility] Comment: Desirable: <100 mg/dl Non HDL Cholesterol 99 <130 mg/dL 01/28/2017 12:[address] [facility] Specimen Anatomical Collection Method Collection Time Receive d Time (Source) Location / / Volume Laterality Blood specimen 01/28/2017 11:13 7 (specimen) AM DIRECTOR OF COLLECTIONS AND ARCHIVES 11:15 AM DIRECTOR OF COLLECTIONS AND ARCHIVES Edison Tam MD LAB - BLOOD ORDERABLES Performing Organization Address City/[facility] Phon e Number [place] [phone] [facility] HEMOGLOBIN A1C -(Today) (01/28/2017 11:13 AM DIRECTOR OF COLLECTIONS AND ARCHIVES) P athologist Signature Hemoglobin A1C 5.3 4.3 - 6.0 01/28/2017 [facility] 11:56 AM [facility] Specimen Anatomical Collection Method Collection Time Receive d Time (Source) Location / / Volume Laterality Blood specimen 01/28/2017 11:13 7 (specimen) AM DIRECTOR OF COLLECTIONS AND ARCHIVES 11:15 AM DIRECTOR OF COLLECTIONS AND ARCHIVES Edison Tam MD LAB - BLOOD ORDERABLES Performing Organization Address City/[facility]/ZIP [facility] Phon e Number [address] [address] [phone] [facility] documented in this encounter Visit Diagnoses Diagnosis Other abnormal glucose Other abnormal glucose Abnormal finding of blood chemistry Other abnormal blood chemistry Yossi's thyroiditis Chronic lymphocytic thyroiditis documented in this encounter Additional Health Concerns Assessment Noted Time PHQ-9 Depression Total Score: 3 01/28/2017 10:28 AM CS T documented as of this encounter Care Teams Product Safety Head Relationship Specialty Start Date End Date Edison Tam, PCP - General Family Practice 07/23/14 909 [facility] [address] 4 [place], [place] [phone] Sheri Casey MD Pulmonary Disease 07/23/14 420 [facility] MMC 276 [place], [place] [phone] Alphonso Billy MD Cardiology 08/12/[address] [place] [phone] Roland Holt MD Resident Student in [facility] 05/12/15 09/24/18 [facility] education/training program Amita Ryan MD MD Internal Medicine 12/19/15 909 [facility] [id number] [place], [place] [phone] Sid Lilly MD Orthopaedic Surgery 02/22/16 MD Alivia [facility] [address] [place], [place] [phone] Neda Boland, NANDINI Nurse Coordinator Neurology 02/23/16 09/01/18 documented as of this encounter
--- OUTSIDE RECORDS SUMMARY | 2021-10-26 13:32 | XMS_ITS | Encounter Summary ---
:1955 Author Organization [place] Address [address] [place] [address] Care Team Providers Name Role Phone Edison Olivas MD Primary Care Provider Sheri Casey MD Unavailable Alphonso Billy MD Unavailable Roland Holt MD Unavailable Amita Ryan MD Unavailable Reason for Referral Therapeutic Services - Closed Specialty Diagnoses / Procedures Referred By Contact Refer red To Contact Diagnoses Robert Valdovinos MD [address] [address] Referral ID Status Reason Start Date Expiration Date Visits Requ ested Visits Authorized [id number] Closed 01/19/2016 01/18/2017 1 1 OR MERCHANDISER Therapeutic Services - Closed Specialty Diagnoses / Procedures Referred By Contact Refer red To Contact Diagnoses Robert Valdovinos MD 420 [place] [phone] Referral ID Status Reason Start Date Expiration Date Visits Requ ested Visits Authorized [id number] Closed 01/19/2016 01/18/2017 1 1 OR MERCHANDISER Reason for Visit Reason Comments Consult Throat pain Encounter Details Date Type Department Care Team Description 01/19/2016 Office Visit [facility] Ear Nose and Robert Cadetanandness (Primary Throat MD Bin Dx) 909 [facility] [address] 420 [facility] 4th Floor [facility] 396 [place] [address] [phone] (Wo rk) Social History Tobacco Use Types [...] Patient InstructionsPattersonRobert MD - 01/19/2016 1:54 PM SENIOR MERCHANDISER The patient presents with a history of hoarseness. The patient will be referred for a speech pathology and speech therapy consultation. She will also gargle water and thoroughly rinse her mouth after each oral inhaler use. OR MERCHANDISER documented in this encounter Progress Notes Robert [...] ??? Anemia Result of CO poisoning and emergency department physician prednisone use? History of blood transfusion N/A [...] Location: US OR ??? Biopsy yes ??? Appeals Manager surgery mass on remaining ovary ??? Ent [...] UNABLE TO FIND, 3 times daily MEDICATION NAME:Luxembourgish herbs, Disp: , Rfl: ??? L-Lysine 500 MG TABS, Take 1 tablet by mouth daily, Disp: , Rfl: ??? ORDER FOR DME, Injection Supplies for Vitamin B12: 3cc syringes w/ 27 gauge needles, 1 inch length, Disp: 12 each, Rfl: 0 ??? cholecalciferol (VITAMIN D) 1000 UNIT tablet, Take 1 tablet (1,000 Units) by mouth daily Discontinue Vitamin D 46326, Disp: 100 tablet, Rfl: 3 ??? acetaminophen [...] oral inhaler use. CC: Dr. Edison Olivas OR MERCHANDISER documented in this encounter Nursing Notes Dylon Zheng LPN - 01/19/2016 1:36 PM CST Chief Complaint Patient presents with ??? Consult Throat pain Dylon Zheng LPN OR [facility] documented in this encounter Plan of Treatment Scheduled Referrals Name Type Priority Associated Diagnoses Order S chedule SPEECH PATHOLOGY REFERRAL Referral Routine Hoarseness Or dered: 01/19/2016 SPEECH THERAPY REFERRAL Referral Routine Hoarseness Orde red: 01/19/2016 documented as of this encounter Procedures Procedure Name Priority Date/Time Associated Diagnosis Comme nts HC LARYNGOSCOPY FLEX Routine 01/19/2016 1:55 PM Hoarseness FIBEROPTIC, DIAGNOSTIC SENIOR MERCHANDISER documented in this encounter Visit Diagnoses Diagnosis Hoarseness - Primary Dysphonia documented in this encounter Additional Health Concerns Assessment Noted Time PHQ-9 Depression Total Score: 14 05/13/2015 7:50 AM CS T documented as of this encounter Care Teams Modeling Instructor Relationship Specialty Start Date End Date Edison Olivas MD PCP - General Family Practice 07/23/14 909 [facility] FL 4 [place], [place] [phone] Sheri Casey MD MD Pulmonary Disease 07/23/14 420 [facility] MMC 276 [place], [place] [phone] Alphonso Billy MD MD Cardiology 08/12/14 12/26/17 420 [place], [place] [address] Roland Holt MD Resident Student in [facility] 05/12/15 09/24/18 health care education/training program Amita Ryan MD MD Internal Medicine 12/19/15 909 [facility] [id number] [place], [place] [phone] documented as of this encounter
--- OUTSIDE RECORDS SUMMARY | 2021-10-26 13:32 | XMS_ITS | Encounter Summary ---
:1955 Author Organization [place] Address [address] [place] [address] Care Team Providers Name Role Phone Edison Tam MD Primary Care Provider Sheri Casey MD Unavailable Alphonso Billy MD Unavailable Roland Holt MD Unavailable Amita Ryan MD Unavailable Sid Lilly MD Unavailable [phone] Neda Boland RN Unavailable Encounter Details Date Type Department Care Team Description 01/28/2017 [facility] Only [facility] Primary Care Kendrick [place] Other abnormal glucose Clinic [address] [address] Social History Tobacco Use Types [...] abnormal R esults for this QUANTITATIVE AM ROTARY DRIER FEEDER glucose procedure are i n the results section. documented in this encounter Results (ABNORMAL) Albumin Random Urine Quantitative with Creat Ratio (01/28/2017 10:20 AM ROTARY DRIER FEEDER) [facility] Method Time Signature Creatinine 114 mg/dL 01/28/2017 [facility] Urine 11:26 AM [facility] Albumin Urine 32 mg/L 01/28/2017 [facility] mg/L 11:26 AM [facility] Albumin Urine 28.07 (H) 0 - 25 01/28/2017 [facility] mg/g Cr mg/g Cr 11:26 AM [facility] Specimen Anatomical Collection Method Collection Time Receive d Time (Source) Location / / Volume Laterality Urine specimen 01/28/2017 10:20 7 (specimen) AM ROTARY DRIER FEEDER 10:44 AM ROTARY DRIER FEEDER Edison Tam MD LAB - URINE ORDERABLES Performing Organization Address City/State/ZIP Code Phon e Number M [facility] [address] [place] [address] [facility] [address] [address], [facility] [phone] documented in this encounter Visit Diagnoses Diagnosis Other abnormal glucose Other abnormal glucose documented in this encounter Additional Health Concerns Assessment Noted Time PHQ-9 Depression Total Score: 3 01/28/2017 10:28 AM CS T documented as of this encounter Care Teams Glass Etcher Helper Relationship Specialty Start Date End Date Edison Tam, PCP - General Family Practice 07/23/[address] [place] [address] 4 [place] [address] Sheri Casey MD Pulmonary Disease 07/23/14 420 [facility] 276 [place] [address] Alphonso Billy MD Cardiology 08/12/14 8 420 [place], [place] [address] Roland Holt MD Resident Student in [facility] 05/12/15 09/24/18 health care education/training program Amita Ryan MD MD Internal Medicine 12/19/15 909 [facility] [id number] [place] [address] Sid Lilly MD Orthopaedic Surgery 02/22/16 MD Alivia [facility] [place] [facility]2 [address] [place] [address] Neda Boland, NANDINI Nurse Coordinator Neurology 02/23/16 09/01/18 documented as of this encounter
--- OUTSIDE RECORDS SUMMARY | 2021-10-26 13:32 | XMS_ITS | Encounter Summary ---
:1955 Author Organization [facility] Address [address] [place] [address] Care Team Providers Name Role Phone Edison Olivas MD Primary Care Provider Sheri Casey MD Unavailable Alphonso Billy MD Unavailable Roland Holt MD Unavailable Amita Ryan MD Unavailable Sid Lilly MD Unavailable [phone] Neda Boland RN Unavailable Reason for Visit Reason Comments Recheck Medication pt is here for a medication follow up Encounter Details Date Type Department Care Team Description 01/28/2017 Office Visit [facility] Primary Care Edison Olivas ashimoto's thyroiditis (Primary Dx); Clinic MD Marcia Visit for screening mammogram; [address] [place] [address] Screening for diabetic retin opathy; 4th Floor [place] 4 Screening for diabetic peripheral neurop athy; [place], [place] Other abn ormal glucose ; [id number] Abnormal finding of blood chemistry ; [phone] Crohn's disease of both small and large intestine with complication (H); (Work) Senile osteoporosis; [phone] Screening for m alignant neoplasm of cervix; [...] Comments Blood Pressure 113/78 01/28/2017 9:56 AM DIRECTOR STATISTICAL PROGRAMMING Pulse 90 01/28/2017 9:56 AM DIRECTOR STATISTICAL PROGRAMMING Temperature - - Respiratory Rate 16 01/28/2017 9:56 AM DIRECTOR STATISTICAL PROGRAMMING Oxygen Saturation - - Inhaled Oxygen Concentration - - Weight 57.6 kg (126 lb 14.4 oz) 01/28/2017 9:56 AM DIRECTOR STATISTICAL PROGRAMMING Height - - Body Mass Index 22.84 02/20/2016 10:44 AM DIRECTOR STATISTICAL PROGRAMMING documented in this encounter Patient Instructions Patient InstructionsSharri Faulkner CMA - 01/28/2017 10:00 AM CST Primary Care Center Primary Care Center Medication Refill Request Information: * Please contact your pharmacy regarding ANY request for medication refills. [facility] Prescription Fax = [phone] * Please allow 3 business days for [...] schedule the following appointments: Mammogram: Breast Center ([facility]) [phone] ([facility] 2nd Floor) Breast Center ([facility]) [phone] ([address]) Dexa Scan: Radiology ([facility] 1st floor) [phone] CTOR STATISTICAL PROGRAMMING documented in this encounter Progress Notes Sharri [...] Faulkner CMA at 9:57 AM on 01/28/2017 CTOR STATISTICAL PROGRAMMING Edison Olivas MD - 01/28/2017 10:00 AM CST SUBJECTIVE: Maria E Coley is a 61-year-old female who has a history of Crohn's disease with fistulas and feels this is resolved. She is off prednisone. She feels well. She has been to a rn cardiology and she weaned off prednisone herself. Blood [...] ??? Anemia Result of CO poisoning and long-term prednisone use? Anxiety ??? Arthritis ??? Bone [...] Charan Salazar MD; Location: [facility] ??? SLOT ATTENDANT SURGERY mass on remaining ovary ??? left [...] agreement with the above. Edison Olivas MD CTOR STATISTICAL PROGRAMMING documented in this encounter Nursing Notes Sharri Faulkner CMA - 01/28/2017 10:00 AM CST Chief Complaint Patient presents with ??? Recheck Medication pt is here for a medication follow up Sharri Faulkner CMA at 9:56 AM on 01/28/2017 CTOR STATISTICAL PROGRAMMING documented in this encounter Plan of Treatment Pending Results Name Type Priority Associated Diagnoses Date/Ti me Pap imaged thin layer Lab Routine Screening for jodi jennings 01/28/2017 10:40 AM screen with HPV - neoplasm of cervix DIRECTOR STATISTICAL PROGRAMMING recommended age 30 - 65 years (select HPV order below) documented as of this encounter Procedures Procedure Name Priority Date/Time Associated Diagnosis Comme nts HPV HIGH RISK TYPES Routine 01/28/2017 10:55 AM Screening for Results for this DNA CERVICAL DIRECTOR STATISTICAL PROGRAMMING malignant neoplasm procedure are in of cervix the results section. PAP IMAGED THIN Routine 01/28/2017 10:40 AM Screening for LAYER SCREEN DIRECTOR STATISTICAL PROGRAMMING malignant neoplasm of cervix A PAP THIN LAYER Routine 01/28/2017 10:40 AM Resu lts for this SCREEN DIRECTOR STATISTICAL PROGRAMMING procedure are i n the results section. documented in this encounter Results Dexa hip/pelvis/spine* (02/08/2017 3:11 PM DIRECTOR STATISTICAL PROGRAMMING) Anatomical Region Laterality Modality Dexa Bone Mineral Density Specimen (Source) Anatomical Location Collection Method / Collectio n Time Received Time / Laterality Volume Narrative 02/11/2017 6:59 PM DIRECTOR STATISTICAL PROGRAMMING [facility] [address] [place] [address] Phone: ?? Fax: FINAL REPORT Patient name: ?? MARIA E COLEY ([id number] ) Patient demographics: 61.1 year old Whit e Female of 62.0 in. height and 130.0 lbs. weight Ordering provider: EDISON OLIVAS History: ??HX OF OSTEOPOROSIS, POSTMENOP AUSAL status, THYROID CONDITION, reformed tobacco habit, family hx of ost eoporosis, OVARIES REMOVED (1 OR 2), CROHN'S Current treatments: Calcium, Vitamin D Scan: ??DXA exam ([id number] ): [employer] Exam date: ??02/08/2017 Comparison: ?? 02/08/2017 05/16/2015 [...] to you and your patient. Principal result park interpreter: Luci Rudd MD, CCD Rehabilitation Counselorwire galvanizer Division of Endocrinology References: 1. ISCD position statements: ??www.iscd. org ??(includes the report of the 2015 ??Position Development Conference) 2. LSC = least significant changes at th e [facility] Imaging Center AP spine = ??0.032 [...] ORDERABLES Comprehensive metabolic panel (01/28/2017 11:13 AM [facility]) athologist Signature Sodium 140 133 - 144 01/28/2017 [facility] mmol/L 12:02 PM [facility] Potassium 3.8 3.4 - 5.3 01/28/2017 [facility] mmol/L 12:02 PM [facility] Chloride 108 94 - 109 01/28/2017 [facility] mmol/L 12:02 PM [facility] Carbon Dioxide 23 20 - 32 01/28/2017 [facility] mmol/L 12:02 PM [facility] Anion Gap 9 3 - 14 01/28/2017 [facility] mmol/L 12:02 PM [facility] Glucose 82 70 - 99 01/28/2017 [facility] mg/dL 12:02 PM [facility] Urea Nitrogen 15 7 - 30 01/28/2017 [facility] mg/dL 12:02 PM [facility] Creatinine 0.82 0.52 - 01/28/2017 [facility] 1.04 mg/dL 12:02 PM [facility] GFR Estimate 71 >60 01/28/2017 [facility] mL/min/1.7 12:[address] Comment: Non GFR Calc GFR Estimate If 85 >60 mL/min/1.7m2 01/28/2017 12:02 PM [facility] Black [facility] Comment: GFR Calc Calcium 8.6 8.5 - 10.1 mg/dL 01/28/2017 12:02 PM [facility] Bilirubin Total 0.3 0.2 - 1.3 mg/dL 01/28/2017 12:02 P M [facility] Albumin 4.0 3.4 - 5.0 g/dL 01/28/2017 12:02 PM [facility] Protein Total 7.0 6.8 - 8.8 g/dL 01/28/2017 12:02 PM U [facility] Alkaline Phosphatase 69 40 - 150 U/L 01/28/2017 12:02 PM [facility] ALT 39 0 - 50 U/L 01/28/2017 12:02 PM [facility] AST 23 0 - 45 U/L 01/28/2017 12:02 PM [facility] Specimen Anatomical Collection Method Collection Time Receive d Time (Source) Location / / Volume Laterality Blood specimen 01/28/2017 11:13 7 (specimen) AM DIRECTOR STATISTICAL PROGRAMMING 11:15 AM DIRECTOR STATISTICAL PROGRAMMING Edison Olivas MD LAB - BLOOD ORDERABLES Performing Organization Address City/[facility]/ZIP Code Phon e Number [address] TSH with free T4 reflex (01/28/2017 11:13 AM DIRECTOR STATISTICAL PROGRAMMING) athologist Signature TSH 2.12 0.40 - 4.00 01/28/2017 [facility] mU/L 12:02 PM [facility] Specimen Anatomical Collection Method Collection Time Receive d Time (Source) Location / / Volume Laterality Blood specimen 01/28/2017 11:13 7 (specimen) AM DIRECTOR STATISTICAL PROGRAMMING 11:15 AM DIRECTOR STATISTICAL PROGRAMMING Edison Olivas MD LAB - BLOOD ORDERABLES Performing Organization Address City/State/ZIP Code Phon e Number [place] [phone] [facility] (ABNORMAL) Lipid panel reflex to direct LDL Fasting (01/28/2017 11:13 AM DIRECTOR STATISTICAL PROGRAMMING) athologist Signature Cholesterol 191 <200 mg/dL 01/28/2017 [facility] 12:02 PM [facility] Triglycerides 150 (H) <150 mg/dL 01/28/2017 [facility] 12:02 PM [facility] Comment: Borderline high: ??150-199 mg/dl High: ? 200-499 mg/dl Very high: ? >499 mg/dl HDL Cholesterol 92 >49 mg/dL 01/28/2017 12:02 PM [facility] LDL Cholesterol 69 <100 mg/dL 01/28/2017 12:02 PM [facility] Calculated [facility] Comment: Desirable: <100 mg/dl Non HDL Cholesterol 99 <130 mg/dL 01/28/2017 12:02 PM [facility] Specimen Anatomical Collection Method Collection Time Receive d Time (Source) Location / / Volume Laterality Blood specimen 01/28/2017 11:13 7 (specimen) AM DIRECTOR STATISTICAL PROGRAMMING 11:15 AM DIRECTOR STATISTICAL PROGRAMMING Edison Olivas MD LAB - BLOOD ORDERABLES Performing Organization Address City/[facility]/ZIP Code Phon e Number [place] [phone] [facility] HEMOGLOBIN A1C -(Today) (01/28/2017 11:13 AM DIRECTOR STATISTICAL PROGRAMMING) athologist Signature Hemoglobin A1C 5.3 4.3 - 6.0 01/28/2017 [facility] % 11:56 AM [facility] Specimen Anatomical Collection Method Collection Time Receive d Time (Source) Location / / Volume Laterality Blood specimen 01/28/2017 11:13 7 (specimen) AM DIRECTOR STATISTICAL PROGRAMMING 11:15 AM DIRECTOR STATISTICAL PROGRAMMING Edison Olivas MD LAB - BLOOD ORDERABLES Performing Organization Address City/[facility]/ZIP Code Phon e Number [place] [phone] [facility] HPV High Risk Types DNA Cervical (01/28/2017 10:55 AM DIRECTOR STATISTICAL PROGRAMMING) [facility] gist Method Time Signature HPV 16 DNA Negative NEG^Negat 02/04/2017 [facility] rena 2:46 PM [facility] HPV 18 DNA Negative NEG^Negat 02/04/2017 [facility] rena 2:46 PM [facility] Other HR HPV Negative NEG^Negat 02/04/2017 [facility] rena 2:46 PM [facility] Final This 02/04/2017 [facility] patient's 2:46 PM [facility] sample is [facility] negative for CAMPUS HPV DNA. Comment: (Note) [...] its performa nce characteristics determined by the [facility], Molecular Diagnostics Laboratory. It has not been cleared or approved by the FDA. The laboratory is regulated under C MYRIAM as qualified to perform high-complexity testing. This test is us ed for clinical purposes. It should not be regarded as investigationa l or for research. Specimen Description Cervical Cells 01/30/2017 9:4 7 AM DIRECTOR STATISTICAL PROGRAMMING [facility] Comment: [id number] Specimen Anatomical Collection Method Collection Time Receive d Time (Source) Location / / Volume Laterality Cervical Cells 01/28/2017 10:55 7 AM DIRECTOR STATISTICAL PROGRAMMING 11:25 AM DIRECTOR STATISTICAL PROGRAMMING Edison Olivas MD LAB - BLOOD ORDERABLES Performing Organization Address City/State/ZIP Code Phon e Number [facility] [address] [place] [address] [facility] A pap thin layer screen (01/28/2017 10:40 AM DIRECTOR STATISTICAL PROGRAMMING) Component Value Ref Test Analysis Performed At [facility] Range Method Time Signature PAP NIL COPATH Copath Report COPATH Patient Name: MARIA E COLEY MR#: [id number] Specimen #: [id number] Collected: 01/28/2017 Received: 01/28/2017 Reported: 01/29/2017 09:27 [...] unable to be gil ged on the [employer] Slide Program Paraprofessional. -Transitional zone component could not be determined due to atrophy. CYTOLOGIC INTERPRETATION: Negative for intraepithelial lesion or malignancy ? Other Non-Neoplastic Findings: -Inflammation present. Electronically signed out by: MARICARMEN Sandoval (ASCP) Processed and screened at [facility] CLINICAL HISTORY: Post Menopausal, Previous normal pap Date of Last Pap: 11/01/2011, Papanicolaou Test Limitations: ??Cervical cytology is a scre ening test with limited sensitivity; regular screening is critical for cancer prevention; Pap tests are primarily effective for the diagnosis/prevention of squamous cell carcinoma, not adenoca rcinomas or other cancers. TESTING LAB LOCATION: [address] ??[address] COLLECTION SITE: Client: ??[facility] Location: [facility] (B) Specimen Anatomical Collection Method Collection Time Receive d Time (Source) Location / / Volume Laterality 01/28/2017 10:40 01/28/2017 AM DIRECTOR STATISTICAL PROGRAMMING 12:45 PM DIRECTOR STATISTICAL PROGRAMMING Edison Olivas MD LAB - OPTIME CLINICAL SPECIM EN Performing Organization Address City/State/ZIP Code Phon e Number [place] (ABNORMAL) Albumin Random Urine Quantitative with Creat Ratio (01/28/2017 10:20 AM DIRECTOR STATISTICAL PROGRAMMING) [facility] gist Method Time Signature Creatinine 114 mg/dL 01/28/2017 [place] Urine 11:26 AM DIRECTOR STATISTICAL PROGRAMMING [facility] Albumin Urine 32 mg/L 01/28/2017 [place] mg/L 11:26 AM [facility] Albumin Urine 28.07 (H) 0 - 25 01/28/2017 [place] mg/g Cr mg/g Cr 11:26 AM [facility] Specimen Anatomical Collection Method Collection Time Receive d Time (Source) Location / / Volume Laterality Urine specimen 01/28/2017 10:20 7 (specimen) AM DIRECTOR STATISTICAL PROGRAMMING 10:44 AM DIRECTOR STATISTICAL PROGRAMMING Edison Olivas MD LAB - URINE ORDERABLES Performing Organization Address City/State/ZIP Code Phon e Number M [facility] [address] [address] [facility] [address] [address], [facility] [phone] documented in this encounter Visit Diagnoses Diagnosis [...] documented as of this encounter Care Teams Bond Writer Relationship Specialty Start Date End Date Edison Olivas, PCP - General Family Practice 07/23/14 909 [facility] 4 [place] [address] Sheri Casey MD Pulmonary Disease 07/23/14 420 [facility] [address] [place], [place] [address] Alphonso Billy MD Cardiology 08/12/14 8 420 [place], [place] [address] Roland Holt MD Resident Student in [facility] 05/12/15 09/24/18 [facility] education/training program Amita Ryan MD MD Internal Medicine 12/19/15 909 [facility] [id number] [place], [place] [id number] Sid Lilly MD Orthopaedic Surgery 02/22/16 MD Alivia [facility] [address] [facility] [address] [place], [place] [id number] Neda Boland, RN Nurse Coordinator Neurology 02/23/16 09/01/18 documented as of this encounter
--- OUTSIDE RECORDS SUMMARY | 2021-10-26 13:32 | XMS_ITS | Encounter Summary ---
:1955 Author Organization [facility] Address [address] [place] [address] Care Team Providers Name Role Phone Edison Tam MD Primary Care Provider Sheri Casey MD Unavailable Alphonso Billy MD Unavailable Roland Holt MD Unavailable Amita Ryan MD Unavailable Sid Lilly MD Unavailable Neda Boland RN Unavailable Encounter Details Date Type Department Care Team Description 03/13/2016 [facility] Visit [facility] [place], Right leg numbness 909 [facility] Jaden Rodriguez, (Primary Dx) [address]rd Floor [address] [address] [id number] [phone] [place] [address] (Wo rk) Social History Tobacco [...] from the original note were not included. [facility] Electrodiagnostic Laboratory Nerve Conduction & EMG Report [...] Nerve / Sites Rec. Site Onset Peak ELECTRICAL TESTS SUPERVISOR Amp Ref. PP Amp Dist Charles Ref. [...] None None None N N N N OO DESIGNER documented in this encounter Plan of Treatment Not on filedocumented as of this encounter Procedures Procedure Name Priority Date/Time Associated Diagnosis Comme nts HC NCS MOTOR W OR Routine 03/13/2016 3:11 PM Right leg numbnes s W/O F-WAVE, 3 OR 4 TATTOO DESIGNER HC NEEDLE EMG EA Routine 03/13/2016 Right leg numbness Resul ts for this EXTREMTY procedure are i n W/PARASPINAL AREA the result s COMPLETE section. documented in this encounter Results Needle EMG Each Extremity w/Paraspinal Area Complete (80048) (03/13/2016) Impressions Jaden Jesus MD - 05/2016 [facility] Nerve Conduction & EMG Report [...] documented as of this encounter Care Teams Hyperion Analyst Relationship Specialty Start Date End Date Edison Tam, PCP - General Family Practice 07/23/[address] [place] [address] [address] 4 [place], [place] [phone] Sheri Casey MD Pulmonary Disease 07/23/[address] [place] [address] [facility] [address] [place], [place] [address] Alphonso Billy MD Cardiology 08/12/[address] [address] Roland Holt MD Resident Student in [facility] 05/12/15 09/24/18 [facility] education/training program Amita Ryan MD MD Internal Medicine 12/19/[address] [place] [address] [id number] [place], [place] [address] Sid Lilly MD Orthopaedic Surgery 02/22/16 MD Alivia [address] [facility] [address] [address] [place], [place] [id number] Neda Boland, RN Nurse Coordinator Neurology 02/23/16 09/01/18 documented as of this encounter
--- OUTSIDE RECORDS SUMMARY | 2021-10-26 13:32 | XMS_ITS | Encounter Summary ---
:1955 Author Organization [facility] Address [address] [place] [address] Care Team Providers Name Role Phone Edison Tam MD Primary Care Provider Sheri Casey MD Unavailable Alphonso Billy MD Unavailable Roland Holt MD Unavailable Amita Ryan MD Unavailable Sid Lilly MD Unavailable [phone] Neda Boland RN Unavailable Reason for Visit Reason Comments Clinic Care Coordination - Follow-up F/u after EMG Encounter Details Date Type Department Care Team Description 05/10/2016 Care Coordination [facility] Neurology Kya, [facility] Care [address] [place] [address] NANDINI Red Coordination - 3rd Floor [phone] Follow-up (F/u after [place], [place] (Work) EMG) [phone] Social History Tobacco [...] up Received: Today ? Bushra Clarke APRN WOOLEN TESTER Neda Boland, RN ? Looks like she never returned after her EMG to follow up. Please ask her to follow up. I will send her EMG report. Thank you 05/10/16: Called pt regarding above info. She does not wish to follow up at this time. ENT EDUCATION SPECIALIST documented in this encounter Plan of Treatment Not on filedocumented as of this encounter Visit Diagnoses Not on filedocumented in this encounter Additional Health Concerns Assessment Noted Time PHQ-9 Depression Total Score: 14 05/13/2015 7:50 AM CS T documented as of this encounter Care Teams Contract Attorney Relationship Specialty Start Date End Date Edison Tam, PCP - General Family Practice 07/23/[address] [place] [address] [address] 4 [place], [place] [address] Sheri Casey MD Pulmonary Disease 07/23/[address] [place] [address] 276 [place], [place] [address] Alphonso Billy MD Cardiology 08/12/[address] [place] [address] Roland Holt MD Resident Student in [facility] 05/12/15 09/24/18 [facility] education/training program Amita Ryan MD MD Internal Medicine 12/19/[address] [place] [address] [id number] [place], [place] [address] Sid Lilly MD Orthopaedic Surgery 02/22/16 MD Alivia [facility] [address] [facility] [address] [place] [address] Neda Boland, NANDINI Nurse Coordinator Neurology 02/23/16 09/01/18 documented as of this encounter
--- OUTSIDE RECORDS SUMMARY | 2021-10-26 13:32 | XMS_ITS | Encounter Summary ---
:1955 Author Organization [facility] Address [facility] [place] [address] Care Team Providers Name Role Phone Edison [...] Carbon monoxide exposure Edison Olivas MD [address] 2345 5 Referral ID Status Reason Start Date Expiration Date Visits Requ ested Visits Authorized [id number] Closed 01/23/2016 01/22/2017 1 1 Encounter Details Date Type Department Care Team Description 01/28/2016 Office Visit [facility] Jose Martin Swartz DOE (dyspnea on exertion) (Primary Dx); [facility] Frank PARKER Chest pressure 909 [facility] [address] [place], [place] 909 [address] [place], [place] [phone] [facility] [phone] (Wo rk) Social History Tobacco Use Types [...] 106/72 01/28/2016 10:45 R arm, sitting, AM MEDICAL RADIATION TECH regular cuff Pulse 96 01/28/2016 10:45 AM MEDICAL RADIATION TECH Temperature - - Respiratory Rate - - Oxygen Saturation 93% 01/28/2016 10:45 AM MEDICAL RADIATION TECH Inhaled Oxygen - - Concentration Weight 61.5 kg (135 lb 8 01/28/2016 10:45 oz) AM MEDICAL RADIATION TECH Height 157.5 cm (5' 2) 01/28/2016 10:45 AM MEDICAL RADIATION TECH Body Mass Index 24.78 01/28/2016 10:45 AM MEDICAL RADIATION TECH documented in this encounter Patient Instructions Patient InstructionsMerry Lugo RN - 01/28/2016 10:55 AM CST You were seen today in the Cardiovascular Clinic at the [facility]. Cardiology Providers you saw during your visit: [...] You can take your propanolol. Merry Lugo HOSPITALITY HOUSE SUPERVISOR CHFN [facility] Health Cardiology Hospice Chaplain Questions and [phone]. First press #1 for the University and then press #3 for Medical Questions to reach us Cardiology Nurses. [employer] Teacher Underground Production Foreperson for after hours or on weekends: [phone] option #4 and ask to speak to the on-call Underground Production Foreperson. CAL RADIATION TECH documented in this encounter Progress Notes Jose [...] Units) by mouth daily Discontinue Vitamin D 26402 ??? acetaminophen (TYLENOL) 500 MG tablet Take [...] ??? Anemia Result of CO poisoning and shelter prednisone use? History of blood transfusion N/A [...] Location: US OR ??? Biopsy yes ??? Value Analyst surgery mass on remaining ovary ??? Ent [...] on file Social History Narrative [place]oved [place] from [facility]. She is living in an apartment accessible. [...] Difficulty walking: No Paralysis: No Numbness: Yes CAL RADIATION TECH documented in this encounter Nursing Notes Merry [...] agreed to call with further questionsor concerns. CAL RADIATION TECH documented in this encounter Plan of Treatment Not on filedocumented as of this encounter Visit Diagnoses Diagnosis RODGERS (dyspnea on exertion) - Primary Other dyspnea and respiratory abnormalit y Chest pressure Other chest pain documented in this encounter Additional Health Concerns Assessment Noted Time PHQ-9 Depression Total Score: 14 05/13/2015 7:50 AM CS T documented as of this encounter Care Teams President And Ceo Relationship Specialty Start Date End Date Edison Olivas MD PCP - General Family Practice 07/23/14 909 [facility] 4 [place], [place] [address] Sheri Casey MD MD Pulmonary Disease 07/23/14 420 [facility] 276 [place], [place] [address] Alphonso Billy MD MD Cardiology 08/12/14 12/26/17 420 [place], [place] [address] Roland Holt MD Resident Student in [facility] 05/12/15 09/24/18 [facility] education/training program Amita Ryan MD MD Internal Medicine 12/19/[address] [place] [address] [id number] [place] [address] documented as of this encounter
--- OUTSIDE RECORDS SUMMARY | 2021-10-26 13:32 | XMS_ITS | Encounter Summary ---
:1955 Author Organization [place] Address [address] [place] [address] 22470 Care Team Providers Name Role Phone Edison Tam MD Primary Care Provider Sheri Casey MD Unavailable Alphonso Billy MD Unavailable Roland Holt MD Unavailable Amita Ryan MD Unavailable Sid Lilly MD Unavailable [phone] Neda Boland RN Unavailable Reason for Visit Reason Onset Date Comments Refill Request 05/22/2016 Encounter Details Date Type Department Care Team Description 05/22/2016 Mariana [facility] and Charan mishra MD Refill Request IBD Clinic [address] [place] [address] [place], [place] 55[phone] Social History Tobacco Use Types Packs/Day Years [...] documented as of this encounter Care Teams Funeral Service Practitioner/Embalmer Relationship Specialty Start Date End Date Edison Tam, PCP - General Family Practice 07/23/[address] [facility] [address] 4 [place], [place] 678125 Sheri Casey MD Pulmonary Disease 07/23/14 420 [facility] MMC 276 [place] [address] Alphonso Billy MD Cardiology 08/12/[address] [place] [address] 927915 Roland Holt MD Resident Student in [employer] [facility] 05/12/15 09/24/18 health care education/training program Amita Ryan MD MD Internal Medicine 12/19/[address] [facility] [id number] [place], [place] 124355 Sid Lilly MD Orthopaedic Surgery 02/22/16 MD Alivia [facility] [place], [place] [address] Neda Boland, RN Nurse Coordinator Neurology 02/23/16 09/01/18 documented as of this encounter
--- OUTSIDE RECORDS SUMMARY | 2021-10-26 13:32 | XMS_ITS | Encounter Summary ---
:1955 Author Organization [place] Address [address] [place] [address] Care Team Providers Name Role Phone Edison Tam MD Primary Care Provider Sheri Casey MD Unavailable Alphonso Billy MD Unavailable Roland Holt MD Unavailable Amita Ryan MD Unavailable Sid Lilly MD Unavailable [phone] Neda Boland RN Unavailable Encounter Details Date Type Department Care Team Description 02/08/2017 Radiant Appointment [facility] Breast Edison Tam sit for screening Center Imaging Teresa Kennedy MD mammogram [address] [place] [address], 2nd Floor [facility] 4 [place] [address] [phone] Social History Tobacco Use Types Packs/Day Years [...] Re sults for this BILATERAL W/ MARIANO LOCKSTITCH BINDER mammogram procedure are in the results section. documented in this encounter Results MA Screen Bilateral w/Mariano (02/08/2017 2:25 PM LOCKSTITCH BINDER) Anatomical Region Laterality Modality Breast Bilateral Mammography Specimen (Source) Anatomical Location Collection Method / Collectio n Time Received Time / Laterality Volume Impressions 02/11/2017 2:12 PM LOCKSTITCH BINDER IMPRESSION: BI-RADS CATEGORY: 1 - ??NEGATIVE. RECOMMENDED FOLLOW-UP: Annual Mammograph y Results to be sent to patient. I have personally reviewed the examinati on and initial interpretation and I agree with the findings. CHRISTOPHER PEREZ MD Narrative 02/11/2017 2:12 PM LOCKSTITCH BINDER SCREENING MAMMOGRAM, BILATERAL, DIGITAL, with CAD and [...] documented as of this encounter Care Teams Hooker Off Relationship Specialty Start Date End Date Edison Tam, PCP - General Family Practice 07/23/14 MD 909 [facility] [address] 4 [place], [place] [phone] Sheri Casey MD Pulmonary Disease 07/23/14 420 [facility] MMC 276 [place] [address] Alphonso Billy MD Cardiology 08/12/14 8 420 [place], [place] [phone] Roland Holt MD Resident Student in [facility] 05/12/15 09/24/18 health care education/training program Amita Ryan MD MD Internal Medicine 12/19/15 909 [facility] [id number] [place], [place] [id number] Sid Lilly MD Orthopaedic Surgery 02/22/16 MD Alivia [facility] [address] [place], [place] [address] Neda Boland, NANDINI Nurse Coordinator Neurology 02/23/16 09/01/18 documented as of this encounter
--- OUTSIDE RECORDS SUMMARY | 2021-10-26 13:32 | XMS_ITS | Encounter Summary ---
:1955 Author Organization [place] Address [address] [place] [address] Care Team Providers Name Role Phone Edison Olivas MD Primary Care Provider Sheri Casey MD Unavailable Alphonso Billy MD Unavailable Roland Holt MD Unavailable Amita Ryan MD Unavailable Sid Lilly MD Unavailable [phone] Neda Boland RN Unavailable Reason for Referral Mental Health Outpatient - Closed Specialty Diagnoses / Procedures Referred By Contact Refer red To Contact Neuropsychology Diagnoses Cognitive complaints Bushra [place] APRN RAIL CAR REPAIR CARMAN [address] [place], [place] [address] [place], [place] [address] Referral ID Status Reason Start Date Expiration Date Visits Requ ested Visits Authorized [id number] Closed 02/20/2016 02/19/2017 1 1 ERTY TECHNICIAN Reason for Visit Reason Comments Consult UMP- MUSCLE WEAKNESS Consultation - Closed Specialty Diagnoses / Procedures Referred By Contact Refer red To Contact Diagnoses Generalized muscle weakness Numbness and tingling of left leg Carbon monoxide exposure Connective tissue disorder (H) 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) Edison Olivas MD 909 [facility] [address] 4 [place], [place] [address] Referral ID Status Reason Start Date Expiration Date Visits Requ ested Visits Authorized [id number] Closed 01/23/2016 01/22/2017 1 1 Encounter Details Date Type Department Care Team Description 02/20/2016 Office Visit [facility] Neurology Bushra Clarke Cognitive complaints (Primar y Dx); 909 [facility] [place], Complaints of leg weakness; 3rd Floor JUNIOR BRAND MANAGER RAIL CAR REPAIR CARMAN Paresthesia [place], [place] 909 [facility] [address] [id number] [phone] [place] [address] Social History Tobacco Use Types Packs/Day Years [...] Comments Blood Pressure 104/66 02/20/2016 10:44 AM PROPERTY TECHNICIAN Pulse 92 02/20/2016 10:44 AM PROPERTY TECHNICIAN Temperature 36.6 ??C (97.8 ??F) 02/20/2016 10:44 AM PROPERTY TECHNICIAN Respiratory Rate 20 02/20/2016 10:44 AM PROPERTY TECHNICIAN Oxygen Saturation 94% 02/20/2016 10:44 AM PROPERTY TECHNICIAN Inhaled Oxygen Concentration - - Weight 61.7 kg (136 lb) 02/20/2016 10:44 AM PROPERTY TECHNICIAN Height 158.8 cm (5' 2.5) 02/20/2016 10:44 AM PROPERTY TECHNICIAN Body Mass Index 24.48 02/20/2016 10:44 AM PROPERTY TECHNICIAN documented in this encounter Patient Instructions Patient InstructionsBushra [place], EREN RAIL CAR REPAIR CARMAN - 02/20/2016 12:13 PM CST 1. EMG and lumbar MRI 2. Neuro-cognitive study 3. Follow up after ERTY TECHNICIAN documented in this encounter Progress Notes Bushra Clrake APRN CNP - 02/20/2016 11:07 AM CST [...] tension dysphonia, has been Speech therapist and retail loss prevention officer, Dr Simmons. Two concerns: Reports carbon monoxide poisoning for about three anderson due to boilers malfunction in her apartments. Patient saw Dr Olivas for that. Has been treated at [facility] in July 08 or 2014. Patient filed [...] but goes back to sleep. Per reviewed [facility] ED June of 2014 outside records, [place] [...] L4-5 laminectomy x2 (2009 and 2006) at [facility] and other outside hospital, by Dr Mcgrath. [...] T1-weighted images were obtained. Head MRA: 3D qskd-sz-[id number] MRA of the [place] of [place] was performed without intravenous contrast. [...] ??? Anemia Result of CO poisoning and residential prednisone use? History of blood transfusion N/A [...] Location: US OR ??? Biopsy yes ??? Mcat Instructor surgery mass on remaining ovary ??? Ent [...] Units) by mouth daily Discontinue Vitamin D 19753 100 tablet 3 ??? acetaminophen (TYLENOL) 500 [...] extension, wrist flexion or extension, finger abduction, time motion analyst, hip flexion and extension, knee flexion and [...] Babinski with downgoing toes bilaterally. Coordination reveals elhumn-ikwa-wlsjox, rapid alternating movements, finger tapping, and toe [...] for about 3 years. Was seen at [facility] ED, work up completed, reviewed via [facility], CO level 1, was elevated on 08/09/2014 [...] appointment time, 60 minutes. Bushra Clarke APRN, RAIL CAR REPAIR CARMAN [facility] Neurology Clinic Answers for HPI/ROS submitted [...] Regarding numbering convention, using the complete spine governor assembler hydraulic images, there are 5 lumbar type vertebrae [...] ? Impression: 1. From the complete spine governor assembler hydraulic images, there is a lumbarized S1 vertebral [...] presents with ??? Consult UMP- MUSCLE WEAKNESS ERTY TECHNICIAN documented in this encounter Plan of [...] documented as of this encounter Care Teams Solid Die Cutter Relationship Specialty Start Date End Date Edison Olivas, PCP - General Family Practice 07/23/[address] [place] [address] FL 4 [place] [address] Sheri Casey MD Pulmonary Disease 07/23/[address] [place] [address] MMC 276 [place], [place] [address] Alphonso Billy MD Cardiology 08/12/[address] [place] [address] 664805 Roland Holt MD Resident Student in [facility] 05/12/15 09/24/18 [facility] education/training program Amita Ryan MD MD Internal Medicine 12/19/[address] [place] [address] [id number] [place], [place] 789125 Sid Lilly MD Orthopaedic Surgery 02/22/16 MD Alivia [facility] [place] 1979400 [place] [address] Neda Boland, NANDINI Nurse Coordinator Neurology 02/23/16 09/01/18 documented as of this encounter
--- OUTSIDE RECORDS SUMMARY | 2021-10-26 13:32 | XMS_ITS | Encounter Summary ---
:1955 Author Organization [place] Address [address] [place] [address] Care Team Providers Name Role Phone Edison Tam MD Primary Care Provider Sheri Casey MD Unavailable Alphonso Billy MD Unavailable Roland Holt MD Unavailable Amita Ryan MD Unavailable Sid Lilly MD Unavailable Neda Boland RN Unavailable Reason for Visit Reason Onset Date Comments Refill Request 10/27/2016 rOPINIRole (REQUIP) 1 MG tablet Encounter Details Date Type Department Care Team Description 10/27/2016 Refill M [facility] Primary Care Edison Tam efill Request Clinic MD Marcia (rOPINIRole (REQUIP) [address] [place] MG tablet) 4th Floor 4 [place] [address] [phone] (Wo rk) Social History Tobacco Use Types [...] # refills: 3 Last Office Visit with [facility] or [facility] prescribing provider: 12/19/15 Future Office visit: none documented in this encounter Plan of Treatment Not on filedocumented as of this encounter Visit Diagnoses Diagnosis Restless leg Restless legs syndrome (RLS) documented in this encounter Additional Health Concerns Assessment Noted Time PHQ-9 Depression Total Score: 14 05/13/2015 7:50 AM CS T documented as of this encounter Care Teams Excellence Consultant Relationship Specialty Start Date End Date dEison Tam, PCP - General Family Practice 07/23/[address] [place] [address] 4 [place], [place] 105685 Sheri Casey MD Pulmonary Disease 07/23/[address] [place] [address] MMC 276 [place], [place] 242945 Alphonso Billy MD Cardiology 08/12/[address] [place] [address] 778085 Roland Holt MD Resident Student in [facility] 05/12/15 09/24/18 [facility] education[facility]training program Amita Ryan MD MD Internal Medicine 12/19/[address] [place] [address] [id number] [place], [place] 922525 Sid Lilly MD Orthopaedic Surgery 02/22/16 MD Alivia [address] [place], [place] 56484[address] [place] [address] Neda Bolnad, NANDINI Nurse Coordinator Neurology 02/23/16 09/01/18 documented as of this encounter
--- OUTSIDE RECORDS SUMMARY | 2021-10-26 13:32 | XMS_ITS | Encounter Summary ---
:1955 Author Organization [place] Address [facility] [place] [address] Care Team Providers Name Role Phone Edison [...] Department Care Team Description 01/26/2016 PRE VISIT [facility] Jose Martin Swartz, Pre Visit Planning - Heart Clinic Frank PARKER Done (60yr old female 909 [facility] [address] [facility] presenting for Cardiac [place], [place] [address] evaluation for chest [address] [place], [place] pressure and dyspnea. [phone] [address] Hx of Chrons, carbon [phone] (Wo rk) monoxide exposure. ENT recommend ed [...] documented as of this encounter Care Teams Baggage Clerk Relationship Specialty Start Date End Date Edison Tam MD PCP - General Family Practice 07/23/14 909 [facility] FL 4 [place], [place] [address] Sheri Casey MD MD Pulmonary Disease 07/23/14 420 [facility] MMC 276 [place], [place] [address] Alphonso Billy MD MD Cardiology 08/12/14 12/26/17 420 [place], [place] 823115 Roland Holt MD Resident Student in [facility] 05/12/15 09/24/18 health [facility] education/training program Amita Ryan MD MD Internal Medicine 12/19/15 909 [facility] [id number] [place], [place] 382025 documented as of this encounter
--- OUTSIDE RECORDS SUMMARY | 2021-10-26 13:32 | XMS_ITS | Encounter Summary ---
:1955 Author Organization [place] Address [address] [place] [address]57 Care Team Providers Name Role Phone Edison Tam MD Primary Care Provider Sheri Casey MD Unavailable Alphonso Billy MD Unavailable Roland Holt MD Unavailable Amita Ryan MD Unavailable Reason for Visit Reason Onset Date Comments Previsit 02/07/2016 Records in [facility] Encounter Details Date Type Department Care Team Description 02/07/2016 [facility]IT [facility] [place], Previsit (Records in [address] [place] [address]) 4th [place] [address] Social History Tobacco Use Types [...] in epic 4. Previous care at: - [facility] ENT - [facility] Primary Care Center TE CONSERVATOR documented in this encounter Plan of Treatment Not on filedocumented as of this encounter Visit Diagnoses Not on filedocumented in this encounter Additional Health Concerns Assessment Noted Time PHQ-9 Depression Total Score: 14 05/13/2015 7:50 AM CS T documented as of this encounter Care Teams Exchange Architect Relationship Specialty Start Date End Date Edison Tam MD PCP - General Family Practice 07/23/14 909 [facility] [address] 4 [place], [place] [address] Sheri Casey MD MD Pulmonary Disease 07/23/14 420 [facility] MMC 276 [place], [place] 65[address] Alphonso Billy MD MD Cardiology 08/12/14 12/26/17 420 [place], [place] 353985 Roland Holt MD Resident Student in [facility] 05/12/15 09/24/[address] [facility] education/training program Amita Ryan MD MD Internal Medicine 12/19/15 909 [facility] [id number] [place], [place] 202995 documented as of this encounter
--- OUTSIDE RECORDS SUMMARY | 2021-10-26 13:32 | XMS_ITS | Encounter Summary ---
:1955 Author Organization [place] Address [address] [place] [address] Care Team Providers Name Role Phone Edison Tam MD Primary Care Provider Sheri Casey MD Unavailable Alphonso Billy MD Unavailable Roland Holt MD Unavailable Amita Ryan MD Unavailable Reason for Visit Reason Comments Shortness of Breath Maria E is here today to see Dr. Ryan about her SOB Encounter Details Date Type Department Care Team Description 01/12/2016 Office Visit [facility] Amita Ryan Uncompl icated asthma, [facility] unspecified asthma [facility] [address] [place] [address] (Primary Dx) Clinic [place] [id number] [address] [place] [phone] Social History Tobacco Use Types Packs/Day [...] controller inhaler - steroid. Send me a 140 Proof message with update next week after you [...] as of this encounter Care Teams Supervisor Denture Department Relationship Specialty Start Date End Date Edison Tam MD PCP - General Family Practice 07/23/14 909 [facility] 4 [place], [place] [address] Sheri Casey MD MD Pulmonary Disease 07/23/14 420 [facility] MMC 276 [place], [place] [address]475 Alphonso Billy MD MD Cardiology 08/12/14 12/26/17 420 [place], [place] 011815 Roland Holt MD Resident Student in [facility] 05/12/15 09/24/18 health care education/training program Amita Ryan MD MD Internal Medicine 12/19/[address] [place] [address] [id number] [place], [place] 555975 documented as of this encounter
--- OUTSIDE RECORDS SUMMARY | 2021-10-26 13:32 | XMS_ITS | Encounter Summary ---
:1955 Author Organization [place] Address [address] [place] [address] Care Team Providers Name Role Phone Edison Tam MD Primary Care Provider Sheri Casey MD Unavailable Alphonso Billy MD Unavailable Roland Holt MD Unavailable Amita Ryan MD Unavailable Sid Lilly MD Unavailable Neda Boland RN Unavailable Reason for Visit Reason Onset Date Comments Refill Request 01/10/2017 ropinirole Encounter Details Date Type Department Care Team Description 01/10/2017 Refill [facility] Primary Care Edison Tam efill Request [facility] MD Marcia (ropinirole ) [address] [place] [address] Floor 4 [place] [phone] (Wo rk) Social History Tobacco Use Types [...] Ros Neff RN - 01/18/2017 1:02 PM PLANT PROTECTION SUPERINTENDENT Addended by: STARR NEFF on: 01/18/2017 01:02 PM Modules accepted: Orders T PROTECTION SUPERINTENDENT Telephone Encounter - Ros Neff RN - 01/18/2017 12:54 PM CST Refill did not transmit to pharmacy - will resend at this time. Ros Neff RN T PROTECTION SUPERINTENDENT Telephone Encounter - Rosie James RN - 01/13/2017 4:49 PM CST ropinirole Last Written Prescription Date: 10/27/16 Last Fill Quantity: 90, # refills: 0 Last Office Visit : 12/19/15 Future Office visit: NONE OVER DUE APPT. LETTER + 30 DAY RF T PROTECTION SUPERINTENDENT documented in this encounter Plan of Treatment Not on filedocumented as of this encounter Visit Diagnoses Diagnosis Restless leg Restless legs syndrome (RLS) documented in this encounter Additional Health Concerns Assessment Noted Time PHQ-9 Depression Total Score: 14 05/13/2015 7:50 AM CS T documented as of this encounter Care Teams Boatbuilder Supervisor Relationship Specialty Start Date End Date Edison Tam, PCP - General Family Practice 07/23/[address] [place] [address] 4 [place] [address] Sheri Casey MD Pulmonary Disease 07/23/14 420 [facility] 276 [place], [place] 319525 Alphonso Billy MD Cardiology 08/12/[address] [place] [address] 965055 Roland Holt MD Resident Student in [facility] 05/12/15 09/24/18 [facility] education/training program Amita Ryan MD MD Internal Medicine 12/19/15 909 [facility] [id number] [place], [place] [id number] Sid Lilly MD Orthopaedic Surgery 02/22/16 MD Alivia [facility]2 [address] [address] Neda Boland, RN Nurse Coordinator Neurology 02/23/16 09/01/18 documented as of this encounter
--- OUTSIDE RECORDS SUMMARY | 2021-10-26 13:32 | XMS_ITS | Encounter Summary ---
:1955 Author Organization [place] Address [address] [place] [address] Care Team Providers Name Role Phone Edison Olivas MD Primary Care Provider Sheri Casey MD Unavailable Alphonso Billy MD Unavailable Roland Holt MD Unavailable Amita Ryan MD Unavailable Sid Lilly MD Unavailable [phone] Neda Boland RN Unavailable Encounter Details Date Type Department Care Team Description 02/08/2017 Radiant Appointment Health Imaging Edison Olivas [facility] osteoporosis Center Renea Kennedy MD [address] [place] [address] [place] [phone] Social History Tobacco Use Types Packs/Day [...] PM Senile osteopor osis Results for this LINUX ADMIN procedure are i n the results section. documented in this encounter Results Dexa hip/pelvis/spine* (02/08/2017 3:11 PM LINUX ADMIN) Anatomical Region Laterality Modality Dexa Bone Mineral Density Specimen (Source) Anatomical Location Collection Method / Collectio n Time Received Time / Laterality Volume Narrative 02/11/2017 6:59 PM LINUX ADMIN [facility] Imaging Center [address] [place] [address] Phone: ?? Fax: FINAL REPORT Patient name: ?? MARIA E COLEY ([id number] ) Patient demographics: 61.1 year old Whit e Female of 62.0 in. height and 130.0 lbs. weight Ordering provider: EDISON OLIVAS History: ??HX OF OSTEOPOROSIS, POSTMENOP AUSAL status, THYROID CONDITION, reformed tobacco habit, family hx of ost eoporosis, OVARIES REMOVED (1 OR 2), CROHN'S Current treatments: Calcium, Vitamin D Scan: ??DXA exam ([id number] ): [employer] Exam date: ??02/08/2017 Comparison: ?? 02/08/2017 05/16/2015 [...] to you and your patient. Principal result deaf interpreter: Luci Rudd MD, CCD Microbiology Soil Scientistramp service employee Division of Endocrinology References: 1. ISCD position statements: ??www.iscd. org ??(includes the report of the 2014 ??Position Development Conference) 2. LSC = least significant changes at th e [facility] Imaging Center AP spine = [...] as of this encounter Care Teams Business Banker Relationship Specialty Start Date End Date Edison Olivas, PCP - General Family Practice 07/23/14 909 [facility] FL 4 [place], [place] [phone] Sheri Casey MD Pulmonary Disease 07/23/14 420 [facility] MMC 276 [place] [address] Alphonso Billy MD Cardiology 08/12/[address] [place] [address] 616085 Roland Holt MD Resident Student in [facility] 05/12/15 09/24/18 health care education/training program Amita Ryan MD MD Internal Medicine 12/19/15 909 [facility] [id number] [place], [place] 0767[address] Sid Lilly MD Orthopaedic Surgery 02/22/16 MD Alivia [facility]2 [address] [place] [address] Neda Boland, NANDINI Nurse Coordinator Neurology 02/23/16 09/01/18 documented as of this encounter
--- OUTSIDE RECORDS SUMMARY | 2021-10-26 13:33 | XMS_ITS | Encounter Summary ---
:1955 Author Organization [place] Address [address] [place] [address] Care Team Providers Name Role Phone Edison Tam MD Primary Care Provider Sheri Casey MD Unavailable Alphonso Billy MD Unavailable Encounter Details Date Type Department Care Team Description 12/01/2014 Radiant Appointment [facility] normal chest x-ray Center [facility] 1st Floor, Clinic 1D [place], [place] [address] Social History Tobacco Use Types Packs/Day Years [...] 8:03 AM CDT Quick Note: Notified via Wikiat documented in this encounter Plan of Treatment [...] field documented in this encounter Care Teams Traveling Secretary Relationship Specialty Start Date End Date Edison Tam MD PCP - General Family Practice 07/23/14 909 [facility] 4 [place], [place] [address]885 Sheri Casey MD MD Pulmonary Disease 07/23/14 420 [facility] 276 [place], [place] 263605 Alphonso Billy MD MD Cardiology 08/12/14 12/26/[address] [place] [address] documented as of this encounter
--- OUTSIDE RECORDS SUMMARY | 2021-10-26 13:33 | XMS_ITS | Encounter Summary ---
:1955 Author Organization [place] Address [address] [place] [address] Care Team Providers Name Role Phone Arcenio Olivas MD Primary Care Provider Sheri Casey MD Unavailable Alphonso Billy MD Unavailable Roland Holt MD Unavailable Encounter Details Date Type Department Care Team Description 09/15/2015 Documentation Only [facility] Endoscopy Zofia Rivera [facility] MD Saeid [address] [place] [address] [id number] [phone] Social History Tobacco Use Types Packs/Day Years [...] Component Value Ref Test Analysis Performed At [facility] gist Range Method Time Signature Copath Report Patient Name: MARIA E COLEY MR#: [id number] Specimen #: [id number] Collected: 09/15/2015 Received: 09/16/2015 Reported: 09/21/2015 10:42 Ordering Phy(s): RAISSA RIVERA Additional Phy(s): [facility]: [facility] ARCENIO OLIVAS SPECIMEN(S): A: Ileum [...] Microscopic examination is performed. CPT Codes: A: 76757-BA6 B: 88095-HB0 C: 69933-HO3 D: 49733-UR1 TESTING LAB LOCATION: [facility], [facility] [address] [place], [place] ?? [address] COLLECTION SITE: Client: [facility] Location: [facility] (B) Specimen Anatomical Collection Method Collection Time Receive d Time (Source) Location / / Volume Laterality 09/15/2015 1:28 PM 8:15 CDT AM CDT Raissa Rivera MD [facility] Organization Address City/State/ZIP Code Phon e Number [place] documented in this encounter Visit Diagnoses Not on filedocumented in this encounter Additional Health Concerns Assessment Noted Time PHQ-9 Depression Total Score: 14 05/13/2015 7:50 AM CS T documented as of this encounter Care Teams Apartment Locator Relationship Specialty Start Date End Date Arcenio Olivas MD PCP - General Family Practice 07/23/[address] [facility] 4 [place], [place] [phone] Sheri Casey MD MD Pulmonary Disease 07/23/[address] [place] [address] [id number] Alphonso Billy MD MD Cardiology 08/12/14 12/26/[address] [place] [address] [id number] Roland Holt MD Resident Student in [facility] 05/12/15 09/24/18 [facility] education/training program documented as of this encounter
--- OUTSIDE RECORDS SUMMARY | 2021-10-26 13:33 | XMS_ITS | Encounter Summary ---
:1955 Author Organization [place] Address [address] [place] [address] Care Team Providers Name Role Phone Edison Tam MD Primary Care Provider Sheri Casey MD Unavailable Alphonso Billy MD Unavailable Roland Holt MD Unavailable Encounter Details Date Type Department Care Team Description 07/12/2015 Radiant Appointment [facility] Charan Salazar C rohn's disease of both small and large intestine with complication (H); Center MRI Digestive-genital tract fistula, female; [address] 1st Floor [place], [place] [phone] Social History Tobacco Use Types Packs/Day [...] se en, better demonstrated on this small gqxfh-zj-yuyy pelvic study th an on 07/10/2012. It [...] se en, better demonstrated on this small nqvmd-kk-utqm pelvic study th an on 07/10/2012. It [...] documented as of this encounter Care Teams Blood Bank Technologist Relationship Specialty Start Date End Date Edison Tam MD PCP - General Family Practice 07/23/14 9[address] [facility] 4 [place] [address] Sheri Casey MD MD Pulmonary Disease 07/23/14 420 [facility] 276 [place] [address] Alphonso Billy MD MD Cardiology 08/12/14 12/26/17 420 [place] [address] Roland Holt MD Resident Student in [facility] 05/12/15 09/24/18 health care education/training program documented as of this encounter
--- OUTSIDE RECORDS SUMMARY | 2021-10-26 13:33 | XMS_ITS | Encounter Summary ---
:1955 Author Organization [place] Address [address] [place] [address] Care Team Providers Name Role Phone Edison Tam MD Primary Care Provider Sheri Casey MD Unavailable Alphonso Billy MD Unavailable Roland Holt MD Unavailable Reason for Visit Reason Comments Other Encounter Details Date Type Department Care Team Description 07/15/2015 Telephone [facility] Colon and Rectal Tata Rodriguez, Surgery [address] Floor [place], [place] [phone] [place] [address] [phone] Social History Tobacco Use Types Packs/Day Years [...] documented as of this encounter Care Teams Percussion Teacher Relationship Specialty Start Date End Date Edison Tam MD PCP - General Family Practice 07/23/14 909 [facility] 4 [place], [place] [phone] Sheri Casey MD MD Pulmonary Disease 07/23/14 420 [facility] 276 [place], [place] [phone] Alphonso Billy MD MD Cardiology 08/12/14 12/26/17 420 [place], [place] [address] Roland Holt MD Resident Student in [facility] 05/12/15 09/24/18 [place] [phone] (Fax) education/training program documented as of this encounter
--- OUTSIDE RECORDS SUMMARY | 2021-10-26 13:33 | XMS_ITS | Encounter Summary ---
:1955 Author Organization [place] Address [address] [place] [address] Care Team Providers Name Role Phone Edison Tam MD Primary Care Provider Sheri Casey MD Unavailable Alphonso Billy MD Unavailable Roland Holt MD Unavailable Reason for Visit Reason Comments GI Problem Maria E is here today to see Dr. Salazar about her Chron's Encounter Details Date Type Department Care Team Description 12/02/2015 Office Visit [facility] Charan Salazar MD Crohn's disease of [facility] [address] [place] [address] both small and large [facility] [place], [place] intest ine with Clinic [place] [address] complication (H) 9 [facility] [phone] (Primary Dx) [place], [place] (Work) [address] [phone] Social History Tobacco Use Types Packs/Day Years [...] weight loss, etc. - Contact us via Metagenomixt should these symptoms occur, particularly as we may advise further evaluation accordingly. 4. Return to GI Clinic with me or my GI Physician Machine Splitter (Mynor Reinoso) in 1 year to review [...] you may reach Clinic Nurse Triage Line [phone]. For urgent/emergent questions after business hours, you may reach the on-call GI Fellow by contacting the [facility] sewage plant operator at . Any benign/non-urgent test results are usually communicated via letter or MyChart message within 1-2weeks after completion. Urgent results (those that require a change in the previously-discussed careplan) are usually communicated via a phone call once available from our clinic staff to discuss the results and the next steps in your evaluation. I recommend signing up for ROKThart access if you have not already done [...] about your healthcare. Sincerely, Charan Salazar MD Syrup Mixer [facility] - Department of Medicine Division of [...] no asterixis noted PERTINENT STUDIES: Colonoscopy 09/15/15 ([facility], [place]): +minimal patchy granularity throughout colon to [...] again seen, better demonstrated on this small qoljv-kg-uusd pelvic study than on 07/10/2012. It is [...] with any further questions. Charan Salazar MD Syrup Mixerlitigation manager [facility] - Department of Medicine Division of [...] documented as of this encounter Care Teams Music Theory Teacher Relationship Specialty Start Date End Date Edison Tam MD PCP - General Family Practice 07/23/14 909 [facility] 4 [place] [address] Sheri Casey MD MD Pulmonary Disease 07/23/14 420 [facility] 276 [place] [address] Alphonso Billy MD MD Cardiology 08/12/14 12/26/17 420 [place], [place] [phone] Roland Holt MD Resident Student in [facility] 05/12/15 09/24/18 [facility] education/training program documented as of this encounter
--- OUTSIDE RECORDS SUMMARY | 2021-10-26 13:33 | XMS_ITS | Encounter Summary ---
:1955 Author Organization [place] Address [address] [place] [address] Care Team Providers Name Role Phone Edison Tam MD Primary Care Provider Sheri Casey MD Unavailable Alphonso Billy MD Unavailable Roland Holt MD Unavailable Reason for Visit Reason Onset Date Comments Pt. Information/instruction 09/07/2015 Encounter Details Date Type Department Care Team Description 09/07/2015 Telephone [facility] Laci Rodriguez [facility] MD Saeid Information/instructio [address] [place] [address] [phone] Social History Tobacco Use Types Packs/Day Years [...] documented as of this encounter Care Teams System Trainer Relationship Specialty Start Date End Date Edison Tam MD PCP - General Family Practice 07/23/14 909 [facility] 4 [place] [address] Sheri Casey MD MD Pulmonary Disease 07/23/14 420 [facility] 276 [place] [address] Alphonso Billy MD MD Cardiology 08/12/14 12/26/17 420 [place] [address] Roland Holt MD Resident Student in [facility] 05/12/15 09/24/18 health care education/training program documented as of this encounter
--- OUTSIDE RECORDS SUMMARY | 2021-10-26 13:33 | XMS_ITS | Encounter Summary ---
:1955 Author Organization [place] Address [facility] [place] [address] Care Team Providers Name Role Phone Edison Olivas MD Primary Care Provider Sheri Casey MD Unavailable Kierra Billy MD Unavailable Reason for Visit (Routine) - Closed Specialty Diagnoses / Procedures Referred By Contact Refer red To Contact Cardiology Diagnoses echo Kierra Billy MD [facility] Cv Echo Procedures E[facility] COMPLETE [address] Luke Shi [place], [place] [address] [facility] 4th Floor, Clinic 4B [facility] [address] [place], [place] [address] [place] [address] Phone: Fax: Referral ID Status Reason Start Date Expiration Date Visits Requ ested Visits Authorized [id number] Closed 09/22/2014 09/22/2015 1 1 Encounter Details Date Type Department Care Team Description 12/01/2014 Hospital Encounter [facility]VC Norberto Billy Fatigue Echocardiography MD Luke Shi [address] [place] 4th Floor, Clinic 4B [address] [facility] [address] [place] [address] [place] [address] Social History Tobacco Use Types [...] by Osteopenia mouth daily Discontinue Vitamin D 88485 cyanocobalamin (VITAMIN B12) Inject 1 mL 1 mL 11 201412/28/2015 1000 MCG/ML (1,000 mcg) into injectionIndications: B12 the muscle every deficiency 30 days Levothyroxine Sodium 50 MCG Take 1 tablet by 90 capsule 1 03/07/2015 CAPSIndications: Yossi's mouth daily thyroiditis multivitamin (THERA-PLUS) Take 5 mLs by 0 05/09/2017 LIQD mouth daily. Nutritional Supplements Take 2 capsules 0 05/12/2015 (ROCÍO COMPLEX PO) by mouth daily ORDER FOR DMEIndications: Injection 12 each 0 [...] FIND 3 times daily 0 016 MEDICATION NAME:Peruvian herbs venlafaxine (EFFEXOR-XR) 75 Take 75 mg by 0 08/15/2015 MG 24 hr capsule mouth daily documented as of this encounter Plan of [...] Narrative 12/01/2014 10:20 AM CDT Interpretation Summary [facility] Echocardi[facility] [address] [place] [address] Name: MARIA E COLEY : 1955 Study Date: 12/01/2014 09:23 AM Age: 59 yrs Gender: Female Patient Location: [facility] Reason For Study: , Other malaise and [...] Hutchins MD - 12/02/19 15 Interpretation Summary [facility] Echocardi[facility] Laboratory [address] [place] [address] Name: MARIA E COLEY : 1955 Study Date: 12/01/2014 09:23 AM Age: 59 yrs Gender: Female Patient Location: [facility] Reason For Study: , Other malaise and [...] fatigue documented in this encounter Care Teams Courtesy Car Driver Relationship Specialty Start Date End Date Edison Olivas MD PCP - General Family Practice 07/23/14 909 [facility] 4 [place] [address] Sheri Casey MD MD Pulmonary Disease 07/23/14 420 [facility] 276 [place] [address] Kierra Billy MD MD Cardiology 08/12/14 12/26/17 420 [place], [place] [phone] documented as of this encounter
--- OUTSIDE RECORDS SUMMARY | 2021-10-26 13:33 | XMS_ITS | Encounter Summary ---
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) Hyperglycemia Vision changes Edison Tam MD [address] [place] [address] [place] 4 [place], [place] [address] Referral ID Status Reason Start Date Expiration Date Visits Requ ested Visits Authorized [id number] Closed 05/12/2015 05/11/2016 1 1 COLLECTOR Reason for Visit Reason Comments Breathing Problem Patient is here to discuss s hortness of breath Encounter Details Date Type Department Care Team Description 05/12/2015 Office Visit [facility] Primary Care Edison Tam prednisone therapy (Primary Dx); Sybil Kennedy MD 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); 909 [facility] SE 909 [facility] Yossi's thyroiditis; 4th Floor [place] 4 Hx of carbon monoxide poisoning; [place], [place] Hyperglyc emia; [phone] Adverse drug effect, initial encounter; [phone] Tired; (Work) 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 (HCC) ; [phone] Other iron defi ciency anemia ; (Fax) [...] Comments Blood Pressure 102/70 05/12/2015 11:32 AM FARE COLLECTOR Pulse 79 05/12/2015 11:32 AM FARE COLLECTOR Temperature 36.9 ??C (98.4 ??F) 05/12/2015 11:32 AM FARE COLLECTOR Respiratory Rate 16 05/12/2015 11:32 AM FARE COLLECTOR Oxygen Saturation 95% 05/12/2015 11:32 AM FARE COLLECTOR Inhaled Oxygen Concentration - - Weight 59 kg (130 lb) 05/12/2015 11:32 AM FARE COLLECTOR Height - - Body Mass Index 23.78 12/01/2014 1:09 PM CDT documented in this encounter Patient Instructions Patient InstructionsDede Oquendo CMA - 05/12/2015 11:32 AM CST Primary Care Center Medication Refill Request Information: * Please contact your pharmacy regarding ANY request for medication refills. [facility] Prescription Fax = [phone] * Please allow 3 business days for [...] the results and signed off on them. COLLECTOR documented in this encounter Progress Notes Edison [...] but that has been fixed. Around [facility] she was at her sister's, her sister's [...] for depression outside of the . Her mechanical specialist wanted us to order a bone density [...] 2 % The 10-year ASCVD risk score (Coudersportgrzegorz SMITH Jr., et al., 2013) is: 4.3% [...] ADULT REFERRAL Thrush Orders: - nystatin (MYCOSTATIN) [id number] UNIT/ML suspension; Take 5 mLs (500,000 Units) by mouth 4 times dailyfor 14 days All questions were addressed and voiced understanding and agreement with the above. Edison Tam MD COLLECTOR documented in this encounter Nursing Notes Dede Oquendo CMA - 05/12/2015 11:32 AM CST Chief Complaint Patient presents with ??? Breathing Problem Patient is here to discuss shortness of breath Dede Oquendo CMA 11:32 AM on 05/12/2015. COLLECTOR documented in this encounter Plan of Treatment [...] Hyperglycemia Res ults for this QUANTITATIVE PM FARE COLLECTOR procedure are i n the results section. CARBON MONOXIDE Routine 05/12/2015 1:18 Tired Results f or this PM FARE COLLECTOR procedure are i n the results section. CBC WITH PLATELETS & Routine 05/12/2015 1:17 Tired Resu lts for this DIFFERENTIAL PM FARE COLLECTOR procedure are i n the results section. TSH WITH FREE T4 Routine 05/12/2015 1:17 Tired Results for this REFLEX PM FARE COLLECTOR procedure are i n the results section. LIPID REFLEX TO Routine 05/12/2015 1:17 Diabetes mellitus due Results for this DIRECT LDL PANEL PM FARE COLLECTOR to underlying procedure are in condition with the results hyperglycemia (H CC) section. Hyperglycemia IRON AND IRON BINDING Routine 05/12/2015 1:17 Other iron defic iency Results for this CAPACITY PM FARE COLLECTOR anemia procedure are in Tired the results section. HEMOGLOBIN A1C Routine 05/12/2015 1:17 Hyperglycemia Results f or this PM FARE COLLECTOR procedure are i n the results section. FERRITIN Routine 05/12/2015 1:17 Other iron deficiency Res ults for this PM FARE COLLECTOR anemia procedure are in Tired the results section. COMPREHENSIVE Routine 05/12/2015 1:17 Hyperglycemia Results fo r this METABOLIC PANEL PM FARE COLLECTOR procedure ar e in the results section. documented in this encounter Results Dexa hip/pelvis/spine* (05/16/2015 11:39 AM FARE COLLECTOR) Anatomical Region Laterality Modality Dexa Computed Radiography Specimen (Source) Anatomical Location Collection Method / Collectio n Time Received Time / Laterality Volume Impressions 05/17/2015 10:52 PM FARE COLLECTOR Easy to read DXA/VFA reports (formatted and presented as tables) can be found in [facility] under Chart review > ??Imaging tab > ??DXA [facility] Physicians [facility] [address] [place] [address] [phone], [place] [address] Phone: ?? Fax: ??FINAL Patient name: ?? MARIA E COLEY ([id number] ) Patient demographics: 60.4 year old Whit e Female of 62.0 in. height and 130.0 lbs. weight Ordering provider: ??EDISON Kennedy 2SANTILLI History: ?? CROHN'S, family hx of osteop orosis, HX OF OSTEOPOROSIS, OVARIES REMOVED (1 OR 2), POSTMENOPAUSAL status, reformed tobacco habit, THYROID CONDITION Current treatments: Calcium, RECLAST, ST EROIDS, THYROID MEDS, Vitamin D Scan: ??DXA exam ([id number] ); [employer] Exam date: ??05/16/2015 Comparison: ??05/16/2015 11/06/2011 Dual [...] to you and your patient. Principal result insulation applicator: Brooklynn Alicea MD, CCD Social Sciences Instructorlawn care specialist Division of Endocrinology References: ? ISCD position statements: ??[email or web address] ??(includes the report of the 2015 ??Position Development Conference) ? LSC = least significant changes at the [facility] Imaging Center AP spine = [...] give better precision. Narrative 05/17/2015 10:52 PM FARE COLLECTOR ATTENTION: Edison Tam MD IMG DEXA ORDERABLES Carbon monoxide (05/12/2015 1:18 PM FARE COLLECTOR) athologist Signature Carbon 0.3 0 - 2 % [facility] Specimen Anatomical Collection Method Collection Time Receive d Time (Source) Location / / Volume Laterality Blood specimen 05/12/2015 1:18 PM 016 1:20 (specimen) FARE COLLECTOR PM FARE COLLECTOR Edison Tam MD LAB - BLOOD ORDERABLES Performing Organization Address City/State/ZIP Code Phon e Number [address] [address] [facility] Microalbumin quantitative random urine (05/12/2015 1:18 PM FARE COLLECTOR) [facility] gist Method Time Signature Creatinine 75 mg/dL [place] Urine [facility] Albumin Urine <5 mg/L [place] mg/L [facility] Albumin Urine Unable to 0 - 25 [place] mg/g Cr calculate due mg/g Cr [facility] to [facility] Specimen Anatomical Collection Method Collection Time Receive d Time (Source) Location / / Volume Laterality Urine specimen 05/12/2015 1:18 PM 016 1:20 (specimen) FARE COLLECTOR PM FARE COLLECTOR Edison Tam MD LAB - URINE ORDERABLES Performing Organization Address City/State/ZIP Code Phon e Number M [facility] [address] [place] [address] [phone] [facility] [address] [place] [address], U [phone] Iron and iron binding capacity (05/12/2015 1:17 PM FARE COLLECTOR) athologist Signature Iron 108 35 - 180 [facility] ug/dL [facility] Iron Binding 352 240 - 430 [facility] Cap ug/dL [facility] Iron Saturation 31 15 - 46 % [facility] Specimen Anatomical Collection Method Collection Time Receive d Time (Source) Location / / Volume Laterality Blood specimen 05/12/2015 1:17 PM 016 1:20 (specimen) FARE COLLECTOR PM FARE COLLECTOR Edison Tam MD LAB - BLOOD ORDERABLES Performing Organization Address City/[facility]/ZIP Code Phon e Number [address] [address] [facility] Ferritin (05/12/2015 1:17 PM FARE COLLECTOR) P athologist Signature Ferritin 48 8 - 252 [facility] ng/mL [facility] Specimen Anatomical Collection Method Collection Time Receive d Time (Source) Location / / Volume Laterality Blood specimen 05/12/2015 1:17 PM 016 1:20 (specimen) FARE COLLECTOR PM FARE COLLECTOR Edison Tam MD LAB - BLOOD ORDERABLES Performing Organization Address City/[facility]/ZIP Code Phon e Number [address] [address] [facility] CBC with platelets differential (05/12/2015 1:17 PM FARE COLLECTOR) [facility] gist Method Time Signature WBC 8.6 4.0 - [facility] 11.0 [place] 10e9/[facility] RBC Count 4.93 3.8 - 5.2 [facility] 10e12/L [facility] Hemoglobin 14.3 11.7 - [facility] 15.7 g/dL [facility] Hematocrit 44.6 35.0 - [facility] 47.0 % [facility] MCV 91 78 - 100 [facility] fl [facility] MCH 29.0 26.5 - [facility] 33.0 pg [facility] MCHC 32.1 31.5 - [facility] 36.5 g/dL [facility] RDW 12.4 10.0 - [facility] 15.0 % [facility] Platelet Count 255 150 - 450 [facility] 10e9/[facility] Diff Method Automated [facility] Method [facility] % Neutrophils 79.6 % [facility] % Lymphocytes 12.0 % [facility] % Monocytes 6.8 % [facility] % Eosinophils 0.5 % [facility] % Basophils 0.6 % [facility] % Immature 0.5 % [facility] Granulocytes [facility] Nucleated RBCs 0 0 /100 [facility] Absolute 6.8 1.6 - 8.3 [facility] Neutrophil 10e9/L [facility] Absolute 1.0 0.8 - 5.3 [facility] Lymphocytes 10e9/L [facility] Absolute 0.6 0.0 - 1.3 [facility] Monocytes 10e9/L [facility] Absolute 0.0 0.0 - 0.7 [facility] Eosinophils 10e9/L [facility] Absolute 0.1 0.0 - 0.2 [facility] Basophils 10e9/L [facility] Abs Immature 0.0 0 - 0.4 [facility] Granulocytes 10e9/[facility] Absolute 0.0 [facility] Nucleated RBC [facility] Specimen Anatomical Collection Method Collection Time Receive d Time (Source) Location / / Volume Laterality Blood specimen 05/12/2015 1:17 PM 016 1:20 (specimen) FARE COLLECTOR PM FARE COLLECTOR Edison Tam MD LAB - BLOOD ORDERABLES Performing Organization Address [facility]/ZIP Code Phon e Number [facility] [address] [place] [address] [facility] (ABNORMAL) Lipid panel reflex to direct LDL (05/12/2015 1:17 PM FARE COLLECTOR) P athologist Signature Cholesterol 223 (H) <200 mg/dL [facility] Comment: Desirable: <200 mg/dl Triglycerides 173 (H) <150 mg/dL [facility] Comment: Borderline high: ??150-199 mg/dl High: ? 200-499 mg/dl Very high: ? >499 mg/dl HDL Cholesterol 89 >49 mg/dL [facility] LDL Cholesterol Calculated 99 <100 mg/dL [facility] Comment: Desirable: <100 mg/dl Non HDL Cholesterol 134 (H) <130 mg/dL [facility] Comment: Above Desirable: ??130-159 mg/dl Borderline high: ??160-189 mg/dl High: ? 190-219 mg/dl Very high: ? >219 mg/dl Specimen Anatomical Collection Method Collection Time Receive d Time (Source) Location / / Volume Laterality Blood specimen 05/12/2015 1:17 PM 016 1:20 (specimen) FARE COLLECTOR PM FARE COLLECTOR Edison Tam MD LAB - BLOOD ORDERABLES Performing Organization Address City/[facility]/ZIP Code Phon e Number [facility] [address] [place] [address] [facility] Comprehensive metabolic panel (05/12/2015 1:17 PM FARE COLLECTOR) P athologist Signature Sodium 138 133 - 144 [facility] mmol/L [facility] Potassium 3.8 3.4 - 5.3 [facility] mmol/L [facility] Chloride 106 94 - 109 [facility] mmol/L [facility] Carbon Dioxide 23 20 - 32 [facility] mmol/L [facility] Anion Gap 10 3 - 14 [facility] mmol/L [facility] Glucose 94 70 - 99 [facility] mg/dL [facility] Urea Nitrogen 11 7 - 30 [facility] mg/dL [facility] Creatinine 0.93 0.52 - [facility] 1.04 mg/dL [facility] GFR Estimate 61 >60 [facility] mL/min/1.7 [place] m2 [facility] Comment: Non GFR Calc GFR Estimate If Black 74 >60 mL/min/1.7m2 U [facility] Comment: GFR Calc Calcium 9.0 8.5 - 10.1 mg/dL [facility] Bilirubin Total 0.4 0.2 - 1.3 mg/dL [facility] Albumin 3.9 3.4 - 5.0 g/dL [facility] Protein Total 6.9 6.8 - 8.8 g/dL [facility] Alkaline Phosphatase 63 40 - 150 U/L [facility] ALT 22 0 - 50 U/L [facility] AST 14 0 - 45 U/L [facility] Specimen Anatomical Collection Method Collection Time Receive d Time (Source) Location / / Volume Laterality Blood specimen 05/12/2015 1:17 PM 016 1:20 (specimen) FARE COLLECTOR PM FARE COLLECTOR Edison Tam MD LAB - BLOOD ORDERABLES Performing Organization Address City/State/ZIP Code Phon e Number [address] [address] [facility] Hemoglobin A1c (05/12/2015 1:17 PM FARE COLLECTOR) P athologist Signature Hemoglobin A1C 5.4 4.3 - 6.0 [facility] Specimen Anatomical Collection Method Collection Time Receive d Time (Source) Location / / Volume Laterality Blood specimen 05/12/2015 1:17 PM 016 1:20 (specimen) FARE COLLECTOR PM FARE COLLECTOR Edison Tam MD LAB - BLOOD ORDERABLES Performing Organization Address City/State/ZIP Code Phon e Number [facility] [address] [place] [address] [facility] TSH with free T4 reflex (05/12/2015 1:17 PM FARE COLLECTOR) P athologist Signature TSH 0.77 0.40 - 4.00 [facility] /L [facility] Specimen Anatomical Collection Method Collection Time Receive d Time (Source) Location / / Volume Laterality Blood specimen 05/12/2015 1:17 PM 016 1:20 (specimen) FARE COLLECTOR PM FARE COLLECTOR Edison Tam MD LAB - BLOOD ORDERABLES Performing Organization Address City/[facility]/ZIP Code Phon e Number [address] [address] [facility] documented in this encounter Visit [...] documented as of this encounter Care Teams Manager Field Sales Relationship Specialty Start Date End Date Edison Tam MD PCP - General Family Practice 07/23/14 909 [facility] 4 [place] [address] Sheri Casey MD MD Pulmonary Disease 07/23/14 420 [facility] 276 [place], [place] [address] Alphonso Billy MD MD Cardiology 08/12/14 12/26/[address] [place] [address] Roland Holt MD Resident Student in [facility] 05/12/15 09/24/18 [facility] education/training program documented as of this encounter
--- OUTSIDE RECORDS SUMMARY | 2021-10-26 13:33 | XMS_ITS | Encounter Summary ---
:1955 Author Organization [place] Address [address] [place] [address] Care Team Providers Name Role Phone Edison Olivas MD Primary Care Provider Sheri Casey MD Unavailable Alphonso Billy MD Unavailable Roland Holt MD Unavailable Reason for Visit Reason Comments Consult anovaginala fistula Encounter Details Date Type Department Care Team Description 08/22/2015 Office Visit [facility] Colon and Laci Rodriguez Rec tovaginal fistula (Primary Dx); Rectal Surgery MD Saeid Crohn's disease of both small and large intestine with fistula (H) [address] 4[address] Floor [facility] [address] [place] [address] [phone] Social History Tobacco Use Types Packs/Day Years [...] 's yoana hemorrhoidectomy in the s in [place]. Last endoscopic evaluation was in 08/2012: Flex [...] again seen, better demonstrated on this small tidac-vd-bpmh pelvic study than on 07/10/2012. 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 History of blood transfusion [...] Location: US OR ??? Biopsy yes ??? [facility] surgery mass on remaining ovary Family history: [...] daily 90 tablet 3 ??? nystatin (MYCOSTATIN) [id number] UNIT/ML suspension Take 5 mLs (500,000 Units) [...] UNABLE TO FIND 3 times daily MEDICATION NAME:Somali herbs ??? cyanocobalamin (VITAMIN B12) 1000 MCG/ML [...] Units) by mouth daily Discontinue Vitamin D 70222 100 tablet 3 ??? acetaminophen (TYLENOL) 500 [...] left anterior chronic appearing sinus that measures [id number] with clear mucous drainage, and associated with [...] and coordinating care. Laci Rodriguez M.D., M.Sc. Capper Machine Operator Division of Colon and Rectal Surgery [facility] Referring Provider: Charan Salazar MD [facility] [address] [place] [address] Primary Care Provider: Edison Olivas documented in [...] contrast ple ase. Please page me at [phone] to discuss before performin g study. Thanks!, [...] contrast ple ase. Please page me at [phone] to discuss before performin g study. Thanks!, [...] documented as of this encounter Care Teams Ax Survey Worker Relationship Specialty Start Date End Date Edison Olivas MD PCP - General Family Practice 07/23/14 909 [facility] 4 [place] [address] Sheri Casey MD MD Pulmonary Disease 07/23/14 420 [facility] [address] [place] [address] Alphonso Billy MD MD Cardiology 08/12/14 12/26/17 420 [place] [address] Roland Holt MD Resident Student in [facility] 05/12/15 09/24/18 [facility] education/training program documented as of this encounter
--- OUTSIDE RECORDS SUMMARY | 2021-10-26 13:33 | XMS_ITS | Encounter Summary ---
:1955 Author Organization [place] Address [address] [place] [address] Care Team Providers Name Role Phone Edison Tam MD Primary Care Provider Sheri Casey MD Unavailable Alphonso Billy MD Unavailable Roland Holt MD Unavailable Reason for Visit Reason Comments Clinic Care Coordination - Follow-up my chart msg and colon/rectal appt Encounter Details Date Type Department Care Team Description 07/14/2015 Care Coordination [facility] Car e Gastroenterology and IBD NANDINI Damon Coordination - Clinic [phone] Follow-up (my chart 909 [facility] (Work) msg and colon/rectal 4th Floor appt ) [place] [address] Social History Tobacco Use Types [...] change in symptoms. Aware that colon rectal cook fry will call to arrange appointment. Referral to [...] documented as of this encounter Care Teams Room Service Associate Relationship Specialty Start Date End Date Edison Tam MD PCP - General Family Practice 07/23/14 909 [facility] 4 [place], [place] [phone] Sheri Casey MD MD Pulmonary Disease 07/23/14 420 [facility] 276 [place], [place] [address] Alphonso Billy MD MD Cardiology 08/12/14 12/26/17 420 [place], [place] [address] Roland Holt MD Resident Student in [facility] 05/12/15 09/24/18 [email or web address] education/training program documented as of this encounter
--- OUTSIDE RECORDS SUMMARY | 2021-10-26 13:33 | XMS_ITS | Encounter Summary ---
:1955 Author Organization [place] Address [address] [place] [address] Care Team Providers Name Role Phone Edison Tam MD Primary Care Provider Sheri Casey MD Unavailable Alphonso Billy MD Unavailable Encounter Details Date Type Department Care Team Description 12/15/2014 Radiant Appointment [facility] Breast Edison Tam mp or mass in Center Imaging Teresa Kennedy MD breast [address] [place] [phone] [phone] Social History Tobacco Use Types Packs/Day Years [...] as of this encounter Visit Diagnoses Diagnosis Lump or mass in breast documented in this encounter Care Teams Student Services Rep Relationship Specialty Start Date End Date Edison Tam MD PCP - General Family Practice 07/23/[address] [place] [phone] Sheri Casey MD MD Pulmonary Disease 07/23/[address] [address] Alphonso Billy MD MD Cardiology 08/12/14 12/26/17 420 [place] [address] documented as of this encounter
--- OUTSIDE RECORDS SUMMARY | 2021-10-26 13:33 | XMS_ITS | Encounter Summary ---
:1955 Author Organization [place] Address [facility] [place] [address] Care Team Providers Name Role Phone Edison Tam MD Primary Care Provider Sheri Casey MD Unavailable Alphonso Billy MD Unavailable Roland Holt MD Unavailable Reason for Visit Reason Comments Eye Exam For Diabetes Referred from primary clinic Encounter Details Date Type Department Care Team Description 05/16/2015 Office Visit [facility] Divya Rodriguez MD 6 [place] [address] Hyperopia with astigmatism and presbyopi a, right (Primary Dx); Eye Clinic - Roland Holt MD [facility] 7450 [facility] [address] [place] [address] Hypermetropia, left; [place] Presbyopia - Left Eye; [place]steen Posteri or subcapsular polar cataract, nonsenile, left; Building Senile nuclear sclerosis, bi lateral; 516 [facility] Dry eyes, bilateral; 9 [facility] Clin 9A 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 (H) [place] [address] Social History Tobacco Use Types [...] Pathology Department of Ophthalmology and Visual Neurosciences [email or web address] Pager [phone] ICAL PRODUCT SPECIALIST documented in this encounter Nursing Notes Romina [...] JAYNA Coughlin, May 16, 2015,12:22 PM Romina STILL May 16, 2015 12:56 PM ICAL PRODUCT SPECIALIST documented in this encounter Plan of [...] documented as of this encounter Care Teams Chief Information Officer Relationship Specialty Start Date End Date Edison Tam MD PCP - General Family Practice 07/23/[address] [address] Sheri Casey MD MD Pulmonary Disease 07/23/14 420 [facility] [address] [place] [address] Alphonso Billy MD MD Cardiology 08/12/14 12/26/17 420 [place], [place] [id number] Roland Holt MD Resident Student in [facility] 05/12/15 09/24/18 [facility] education/training program documented as of this encounter
--- OUTSIDE RECORDS SUMMARY | 2021-10-26 13:33 | XMS_ITS | Encounter Summary ---
:1955 Author Organization [place] Address [address] [place] [address] Care Team Providers Name Role Phone Edison Tam MD Primary Care Provider Sheri Casey MD Unavailable Alphonso Billy MD Unavailable Roland Holt MD Unavailable Reason for Visit Reason Comments Consult Crohns Encounter Details Date Type Department Care Team Description 07/04/2015 Office Visit [facility] Gastroenterology Charan Salazar, Crohn's disease of both small and large intestine with complication (H) (Primary Dx); and IBD Clinic Digestive-genital tract fistula, female; 9 [facility] SE [address] [place] [address] 4th [place] [address] [phone] Social History Tobacco Use Types Packs/Day Years [...] necessary appointment. _October 02 120 pm [address] [facility] [address] Salazar It was a pleasure seeing you in clinic today - please be in touch if there are any further questionsthat arise following today's visit. During business hours, you may reach Clinic Nurse Triage Line [phone]. For urgent/emergent questions after business hours, you may reach the on-call GI Fellow by contacting the [facility] boom crane operator at . Any benign/non-urgent test results are usually communicated via letter or iMegat message within 1-2weeks after completion. Urgent results (those that require a change in the previously-discussed careplan) are usually communicated via a phone call once available from our clinic staff to discuss the results and the next steps in your evaluation. I recommend signing up for Joosy access if you have not already done [...] about your healthcare. Sincerely, Charan Salazar MD District Gauger [facility] - Department of Medicine Division of Gastroenterology [address] Imaging First Floor July 3 1130 CHECK IN TIME 1115 AM NOTHING TO EAT OR DRINK FOR 4 TO 6 HOURS documented in this encounter Progress Notes Charan Salazar MD - 07/06/2015 11:11 AM CDT GI CLINIC VISIT CC/REFERRING MD:?? Edison Tam REASON FOR CONSULTATION: Crohn's disease HPI: 59 [...] the above delineated issues. Charan Salazar MD District Gauger [facility] - Department of Medicine Division of Gastroenterology [...] se en, better demonstrated on this small lhrhs-rt-lhxm pelvic study th an on 07/10/2012. It [...] se en, better demonstrated on this small eoqca-dl-qpvf pelvic study th an on 07/10/2012. It [...] documented as of this encounter Care Teams Livestock Ranch Hand Relationship Specialty Start Date End Date Edison Tam MD PCP - General Family Practice 07/23/14 909 [facility] 4 [place], [place] [address] Sheri Casey MD MD Pulmonary Disease 07/23/14 420 [facility] 276 [place] [address] Alphonso Billy MD MD Cardiology 08/12/14 12/26/17 420 [place] [address] Roland Holt MD Resident Student in [facility] 05/12/15 09/24/18 [facility] education/training program documented as of this encounter
--- OUTSIDE RECORDS SUMMARY | 2021-10-26 13:33 | XMS_ITS | Encounter Summary ---
:1955 Author Organization [place] Address [address] [place] [address] Care Team Providers Name Role Phone Edison Tam MD Primary Care Provider Sheri Casey MD Unavailable Alphonso Billy MD Unavailable Roland Holt MD Unavailable Reason for Visit Reason Onset Date Comments Pt. Information/instruction 09/08/2015 Encounter Details Date Type Department Care Team Description 09/08/2015 Telephone [facility] Laci Rodriguez Pt. Endoscopy Center MD Saeid Information/instructio [address] [place], [place] [address] [phone] Social History Tobacco Use Types Packs/Day Years [...] reviewed with patient ? Instructions briefly reviewed. Physician/Ophthalmologist policy, MAC sedationplan reviewed. Pharmacy : n/a [...] as of this encounter Care Teams Title Officer Relationship Specialty Start Date End Date Edison Tam MD PCP - General Family Practice 07/23/14 909 [facility] 4 [place], [place] [address] Sheri Casey MD MD Pulmonary Disease 07/23/14 420 [facility] 276 [place], [place] [phone] Alphonso Billy MD MD Cardiology 08/12/14 12/26/17 420 [place], [place] [address] Roland Holt MD Resident Student in [facility] 05/12/15 09/24/18 [facility] education/training program documented as of this encounter
--- OUTSIDE RECORDS SUMMARY | 2021-10-26 13:33 | XMS_ITS | Encounter Summary ---
:1955 Author Organization [place] Address [address] [place] [address] Care Team Providers Name Role Phone Edison Tam MD Primary Care Provider Sheri Casey MD Unavailable Alphonso Billy MD Unavailable Reason for Visit Reason Comments Consult New consult on CO2 exposure Encounter Details Date Type Department Care Team Description 12/01/2014 Office Visit [facility] Sheri Casey Abnorm leatha chest x-ray Svitlana Interiano MD (Primary Dx) 3rd Floor, Clinic 3A [id number] [place] [address] [phone] [address] (Work) [phone] Social History Tobacco Use Types Packs/Day Years [...] thought something was off. They called the [employer] to test and no gas leak detected [...] on file Social History Narrative Moved to [place] from [facility]. She is living in an [...] field documented in this encounter Care Teams Parakeet Raiser Relationship Specialty Start Date End Date Edison Tam MD PCP - General Family Practice 07/23/14 909 [facility] 4 [place] [address] Sheri Casey MD MD Pulmonary Disease 07/23/14 420 [facility] 276 [place] [address] Alphonso Billy MD MD Cardiology 08/12/14 12/26/17 420 [place], [place] [phone] documented as of this encounter
--- OUTSIDE RECORDS SUMMARY | 2021-10-26 13:33 | XMS_ITS | Encounter Summary ---
:1955 Author Organization [place] Address [address] [place] [address] Care Team Providers Name Role Phone Arcenio Tam MD Primary Care Provider Sheri Casey MD Unavailable Alphonso Billy MD Unavailable Roland Holt MD Unavailable Reason for Referral Consultation - Closed Specialty Diagnoses / Procedures Referred By Contact Refer red To Contact Diagnoses Osteoporosis History of corticosteroid therapy Arcenio Tam MD [address] [place] [address]45 5 Referral ID Status Reason Start Date Expiration Date Visits Requ ested Visits Authorized [id number] Closed 05/19/2015 05/18/2016 1 1 ASTRUCTURE PROJECT MANAGER Reason for Visit Reason Onset Date Comments Results 05/19/2015 Encounter Details Date Type Department Care Team Description 05/19/2015 Telephone [facility] Primary Car e Clinic Arcenio Tam MD Results [address] [place] [address] [place] [address] 5-4800 [phone] Social History Tobacco Use Types Packs/Day Years [...] Chart review > Imaging tab > DXA [facility] [address] [place] [address] [place], [place] [address] Phone: Fax: FINAL Patient name: MARIA E COLEY ([id number] ) Patient demographics: 60.4 year old White Female of 62.0 in. height and 130.0 lbs. weight Ordering provider: ARCENIO Kennedy 2SANTILLI History: CROHN'S, family hx of osteoporosis, HX OF OSTEOPOROSIS, OVARIES REMOVED (1 OR 2), POSTMENOPAUSAL status, reformed tobacco habit, THYROID CONDITION Current treatments: Calcium, RECLAST, STEROIDS, THYROID MEDS, Vitamin D Scan: DXA exam ([id number] ); [facility] Exam date: 05/16/2015 Comparison: 05/16/2015 11/06/2011 Dual [...] to you and your patient. Principal result cake froster: Brooklynn Alicea MD, CCD Die Filerpatient safety sitter Division of Endocrinology References: ? ISCD position statements: www.iscd.org (includes the report of the 2015 Position Development Conference) ? LSC = least significant changes at the [facility] Imaging Center AP spine = 0.032 g/cm2 [...] compared because larger areas give better precision. [phone] (home) DEXA Results indicate osteoporosis. I have placed a referral for her to meet with an web content editor to discuss options for management due to her chronic steroid use. Best wishes, Arcenio Tam MD Pt called and plan of care discussed. Clinic numbers given to make appointments, questions or concerns. Blaire Gage RN 9:07 AM on 05/23/2015. documented in this encounter Plan of Treatment Scheduled Referrals Name Type Priority Associated Diagnoses Order S [facility] ENDOCRINOLOGY ADULT Referral Routine Osteoporosis Ordered: REFERRAL History of corticosteroid therapy documented as of this encounter Visit Diagnoses Diagnosis Osteoporosis - Primary Osteoporosis, unspecified History of corticosteroid therapy Personal history of systemic steroid the rapy documented in this encounter Additional Health Concerns Assessment Noted Time PHQ-9 Depression Total Score: 14 05/13/2015 7:50 AM CS T documented as of this encounter Care Teams Gum Worker Relationship Specialty Start Date End Date Arcenio Tam MD PCP - General Family Practice 07/23/14 909 [facility] 4 [place], [place] [phone] Sheri Casey MD MD Pulmonary Disease 07/23/14 420 [facility] 276 [place] [address] Alphonso Billy MD MD Cardiology 08/12/14 12/26/17 420 [place] [address] Roland Holt MD Resident Student in [facility] 05/12/15 09/24/18 health care education/training program documented as of this encounter
--- OUTSIDE RECORDS SUMMARY | 2021-10-26 13:33 | XMS_ITS | Encounter Summary ---
:1955 Author Organization [place] Address [address] [place] [address] Care Team Providers Name Role Phone Edison [...] Department Care Team Description 08/15/2015 Office Visit [facility] Primary Care Edison Tam alpitations (Primary Dx); Clinic TMD Thrush; [address] [place] [address] SOB (shortness of breath) 4th Floor [place] 4 [place] [address] [phone] Social History Tobacco Use Types Packs/Day Years [...] pharmacy regarding ANY request for medication refills. [facility] Prescription Fax = [phone] * Please allow 3 business days for [...] DETERMINATION; Future Thrush Orders: - nystatin (MYCOSTATIN) [id number] UNIT/ML suspension; Take 5 mLs (500,000 Units) [...] documented as of this encounter Care Teams Crossing Guard Relationship Specialty Start Date End Date Edison Tam MD PCP - General Family Practice 07/23/[address] [place] [address] Sheri Casey MD MD Pulmonary Disease 07/23/[address] [phone] Alphonso Billy MD MD Cardiology 08/12/14 12/26/17 420 [place], [place] [phone] Roland Holt MD Resident Student in [facility] 05/12/15 09/24/18 health care education/training program documented as of this encounter
--- OUTSIDE RECORDS SUMMARY | 2021-10-26 13:33 | XMS_ITS | Encounter Summary ---
:1955 Author Organization [place] Address [address] [place] [address] Care Team Providers Name Role Phone Edison Tam MD Primary Care Provider Sheri Casey MD Unavailable Alphonso Billy MD Unavailable Reason for Visit Reason Onset Date Comments Refill Request 05/09/2015 Encounter Details Date Type Department Care Team Description 05/09/2015 Refill [facility] Gastroenterology and Ab Charan mishra MD Refill Request IBD Clinic [address] [place] [address] [place] [phone] [phone] Social History Tobacco Use Types Packs/Day Years [...] 4:37 PM CST Refill approved per . 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
--- OUTSIDE RECORDS SUMMARY | 2021-10-26 13:33 | XMS_ITS | Encounter Summary ---
:1955 Author Organization [place] Address [address] [place] [address] Care Team Providers Name Role Phone Arcenio Tam MD Primary Care Provider Sheri Casey MD Unavailable Alphonso Billy MD Unavailable Roland Holt MD Unavailable Encounter Details Date Type Department Care Team Description 05/16/2015 Radiant Appointment Health Imaging Arcenio Tam prednisone Center Renea Kennedy MD therapy [address] [place] [address] Social History Tobacco Use Types Packs/Day [...] 11:39 AM On prednisone Results for this SITE SAFETY COORDINATOR therapy procedure are i n the results section. documented in this encounter Results Dexa hip/pelvis/spine* (05/16/2015 11:39 AM SITE SAFETY COORDINATOR) Anatomical Region Laterality Modality Dexa Computed Radiography Specimen (Source) Anatomical Location Collection Method / Collectio n Time Received Time / Laterality Volume Impressions 05/17/2015 10:52 PM SITE SAFETY COORDINATOR Easy to read DXA/VFA reports (formatted and presented as tables) can be found in EPIC under Chart review > ??Imaging tab > ??DXA [facility] [address] [place] [address] [address], [place] [address] Phone: ?? Fax: ??FINAL Patient name: ?? MARIA E COLEY ([id number] ) Patient demographics: 60.4 year old Whit e Female of 62.0 in. height and 130.0 lbs. weight Ordering provider: ??ARCENIO Kennedy 2SANTILLI History: ?? CROHN'S, family hx of osteop orosis, HX OF OSTEOPOROSIS, OVARIES REMOVED (1 OR 2), POSTMENOPAUSAL status, reformed tobacco habit, THYROID CONDITION Current treatments: Calcium, RECLAST, ST EROIDS, THYROID MEDS, Vitamin D Scan: ??DXA exam ([id number] ); [employer] Exam date: ??05/16/2015 Comparison: ??05/16/2015 11/06/2011 Dual [...] to you and your patient. Principal result educational sign language interpreter: Brooklynn Alicea MD, CCD Learning Disabled Teachervamp creaser Division of Endocrinology References: ? ISCD position statements: ??www.iscd.o rg ??(includes the report of the 2014 ??Position Development Conference) ? LSC = least significant changes at the [facility] Imaging Center AP spine = ??0.032 [...] give better precision. Narrative 05/17/2015 10:52 PM SITE SAFETY COORDINATOR ATTENTION: Arcenio Tam MD IMG DEXA ORDERABLES documented in this encounter Visit Diagnoses Diagnosis On prednisone therapy documented in this encounter Additional Health Concerns Assessment Noted Time PHQ-9 Depression Total Score: 14 05/13/2015 7:50 AM MILAD T documented as of this encounter Care Teams Manager Protein Relationship Specialty Start Date End Date Arcenoi Tam MD PCP - General Family Practice 07/23/14 909 [facility] 4 [place] [address] Sheri Casey MD MD Pulmonary Disease 07/23/14 420 [facility] 276 [place] [address] Alphonso Billy MD MD Cardiology 08/12/14 12/26/17 420 [place] [address] Roland Holt MD Resident Student in [facility] 05/12/15 09/24/18 [facility] education/training program documented as of this encounter
--- OUTSIDE RECORDS SUMMARY | 2021-10-26 13:33 | XMS_ITS | Encounter Summary ---
:1955 Author Organization [place] Address [address] [place] [address] Care Team Providers Name Role Phone Edison Tam MD Primary Care Provider Sheri Casey MD Unavailable Alphonso Billy MD Unavailable Roland Holt MD Unavailable Encounter Details Date Type Department Care Team Description 08/25/2015 Radiant Appointment Health Imaging Kamlesh Rodriguez's disease of [address] CT Laci Breaux, both small and 909 [facility] large intestine SE 420 [place] SE with fistula (H) 1st Floor [facility] 195 [place] [address] 195275 Social History Tobacco Use Types Packs/Day Years [...] contrast ple ase. Please page me at [phone] to discuss before performin g study. Thanks!, [...] contrast ple ase. Please page me at [phone] to discuss before performin g study. Thanks!, [...] documented as of this encounter Care Teams Nonprofit Fundraiser Relationship Specialty Start Date End Date Edison Tam MD PCP - General Family Practice 07/23/14 909 [facility] 4 [place], [place] [address] Sheri Casey MD MD Pulmonary Disease 07/23/14 420 [facility] 276 [place], [place] [address] Alphonso Billy MD MD Cardiology 08/12/14 12/26/17 420 [place], [place] 77[address] Roland Holt MD Resident Student in [facility] 05/12/15 09/24/18 [facility] education/training program documented as of this encounter
--- OUTSIDE RECORDS SUMMARY | 2021-10-26 13:33 | XMS_ITS | Encounter Summary ---
:1955 Author Organization [place] Address [address] [place] [address] Care Team Providers Name Role Phone Edison Tam MD Primary Care Provider Sheri Casey MD Unavailable Alphonso Billy MD Unavailable Encounter Details Date Type Department Care Team Description 12/01/2014 Orders Only Lung Science PFT Sheri Casey Shortness of breath [facility] Medicine MD Laisha (Primary Dx) Luke Goldmanensteen [address] [place] [address] [facility] Building 276 3rd Floor, Clinic [address] [place] [id number] [place] [address] (Wo rk) [address] [phone] Social History Tobacco Use Types Packs/Day Years [...] BREEZE PFT FEV1-%Pred-Pre 116 % BREEZE PFT [id number] 80 % BREEZE PFT [id number] 80 % BREEZE PFT FEFMax-Pred 5.99 L/sec BREEZE PFT FEFMax-Pre 5.56 L/sec BREEZE PFT FEFMax-%Pred-Pr 92 % BREEZE PFT e [id number] 2.17 L/sec BREEZE PFT [id number] 2.49 L/sec BREEZE PFT IQV3195-%Pred-P 114 % BREEZE PFT re ExpTime-Pre 8.06 sec BREEZE PFT FIFMax-Pre 5.31 L/sec BREEZE PFT VC-Pred 3.02 L BREEZE PFT VC-Pre 3.50 L BREEZE PFT VC-%Pred-Pre 115 % BREEZE PFT IC-Pred 2.18 L BREEZE PFT IC-Pre 2.79 L BREEZE PFT IC-%Pred-Pre 128 % BREEZE PFT ERV-Pred 0.84 L BREEZE PFT ERV-Pre 0.71 L BREEZE PFT ERV-%Pred-Pre 84 % BREEZE PFT [id number] 81 % BREEZE PFT [id number]-Ooo 79 % BREEZE PFT DLCOunc-Pred 20.81 ml/min/mmHg BREEZE PFT DLCOunc-Pre 20.41 ml/min/mmHg BREEZE PFT DLCOunc-%Pred-P 98 % BREEZE PFT re VA-Pre 5.03 L BREEZE PFT VA-%Pred-Pre 106 % BREEZE PFT [id number]-Dkut 77 % BREEZE PFT [id number] 78 % BREEZE PFT Specimen (Source) Anatomical [...] Primary documented in this encounter Care Teams Fur Grader Relationship Specialty Start Date End Date Edison Tam MD PCP - General Family Practice 07/23/14 909 [facility] 4 [place], [place] [address] Sheri Casey MD MD Pulmonary Disease 07/23/14 420 [facility] 276 [place], [place] [address] Alphonso Billy MD MD Cardiology 08/12/14 12/26/17 420 [place], [place] [address] documented as of this encounter
--- OUTSIDE RECORDS SUMMARY | 2021-10-26 13:33 | XMS_ITS | Encounter Summary ---
:1955 Author Organization [place] Address [address] [place] [address] Care Team Providers Name Role Phone Edison Tam MD Primary Care Provider Sheri Casey MD Unavailable Alphonso Billy MD Unavailable Roland Holt MD Unavailable Reason for Visit Reason Onset Date Comments Pt. Information/instruction 09/06/2015 Encounter Details Date Type Department Care Team Description 09/06/2015 Telephone [facility] Laci Rodriguez Pt. Endoscopy Center MD Saeid Information/instructio [address] [place] [address] [phone] Social History Tobacco Use Types Packs/Day Years [...] documented as of this encounter Care Teams Dean For Student Affairs Relationship Specialty Start Date End Date Edison Tam MD PCP - General Family Practice 07/23/14 909 [facility] 4 [place] [address] Sheri Casey MD MD Pulmonary Disease 07/23/14 420 [facility] 276 [place] [address] Alphonso Billy MD MD Cardiology 08/12/14 12/26/17 420 [place] [address] Roland Holt MD Resident Student in [facility] 05/12/15 09/24/18 health care education/training program documented as of this encounter
--- OUTSIDE RECORDS SUMMARY | 2021-10-26 13:33 | XMS_ITS | Encounter Summary ---
:1955 Author Organization [place] Address [address] [place] [address] Care Team Providers Name Role Phone Edison Tam MD Primary Care Provider Sheri Casey MD Unavailable Alphonso Billy MD Unavailable Roland Holt MD Unavailable Amita Ryan MD Unavailable Encounter Details Date Type Department Care Team Description 12/19/2015 Orders Only [facility] Crohn's disease of large int estine with fistula (H); [address] [place] [address] SE Acquired hypothyroidism; 1st Floor Other abnormal glucose ; [place], [place] [phone] Current chronic use of syste melo steroids [phone] Social History Tobacco Use Types Packs/Day Years [...] Hemoglobin A1C 5.9 4.3 - 6.0 [facility] Specimen Anatomical Collection Method Collection Time Receive d Time (Source) Location / / Volume Laterality Blood specimen 12/19/2015 4:12 PM 016 4:14 (specimen) CDT PM CDT Edison Tam MD LAB - BLOOD ORDERABLES Performing Organization Address City/State/ZIP Code Phon e Number [address] CRP inflammation (12/19/2015 4:12 PM CDT) Analysis Performed At Patho logist Time Signature CRP Inflammation <2.9 0.0 - 8.[address] [facility] mg/L [facility] Specimen Anatomical Collection Method Collection Time Receive d Time (Source) Location / / Volume Laterality Blood specimen 12/19/2015 4:12 PM 016 4:14 (specimen) CDT PM CDT Edison Tam MD LAB - BLOOD ORDERABLES Performing Organization Address City/[facility]/ZIP Code Phon e Number [address] TSH with free T4 reflex (12/19/2015 4:12 PM CDT) athologist Signature TSH 0.93 0.40 - 4.[address] [facility] mU/L [facility] Specimen Anatomical Collection Method Collection Time Receive d Time (Source) Location / / Volume Laterality Blood specimen 12/19/2015 4:12 PM 016 4:14 (specimen) CDT PM CDT Edison Tam MD LAB - BLOOD ORDERABLES Performing Organization Address City/State/ZIP Code Phon e Number [address] [address] [facility] Comprehensive metabolic panel (12/19/2015 4:12 PM CDT) P athologist Signature Sodium 139 133 - [address] [facility] mmol/L [facility] Potassium 4.1 3.4 - 5.[address] [facility] mmol/L [facility] Chloride 106 94 - 109 [facility] mmol/L [facility] Carbon Dioxide 25 20 - 32 [facility] mmol/L [facility] Anion Gap 8 3 - 14 [facility] mmol/L [facility] Glucose 90 70 - 99 [facility] mg/dL [facility] Urea Nitrogen 13 7 - 30 [facility] mg/dL [facility] Creatinine 0.85 0.52 - [facility] 1.04 mg/dL [facility] GFR Estimate 68 >60 [facility] mL/min/1.7 [place] m2 [facility] Comment: Non GFR Calc GFR Estimate If Black 83 >60 mL/min/1.7m2 U [facility] Comment: GFR Calc Calcium 8.8 8.5 - 10.1 mg/dL [facility] Bilirubin Total 0.3 0.2 - 1.3 mg/dL [facility] Albumin 3.8 3.4 - 5.0 g/dL [facility] Protein Total 6.9 6.8 - 8.8 g/dL [facility] Alkaline Phosphatase 64 40 - 150 U/L [facility] ALT 29 0 - 50 U/L [facility] AST 16 0 - 45 U/L [facility] Specimen Anatomical Collection Method Collection Time Receive d Time (Source) Location / / Volume Laterality Blood specimen 12/19/2015 4:12 PM 016 4:14 (specimen) CDT PM CDT Edison Tam MD LAB - BLOOD ORDERABLES Performing Organization Address City/State/ZIP Code Phon e Number [address] [address] [facility] CBC with platelets differential (12/19/2015 4:12 PM CDT) [facility] Method Time Signature WBC 8.2 4.0 - [facility] 11.0 [place] 10e9/[facility] RBC Count 4.92 3.8 - 5.2 [facility] 10e12/L [facility] Hemoglobin 14.4 11.7 - [facility] 15.7 g/dL [facility] Hematocrit 43.4 35.0 - [facility] 47.0 % [facility] MCV 88 78 - 100 [facility] MCH 29.3 26.5 - [facility] 33.[address] [facility] MCHC 33.2 31.5 - [facility] 36.5 g/dL [facility] RDW 12.5 10.0 - [facility] 15.0 % [facility] Platelet Count 263 150 - 450 [facility] 10e9/L [facility] Diff Method Automated [facility] Method [facility] % Neutrophils 76.2 % [facility] % Lymphocytes 13.7 % [facility] % Monocytes 8.4 % [facility] % Eosinophils 0.7 % [facility] % Basophils 0.4 % [facility] % Immature 0.6 % [facility] Granulocytes [facility] Nucleated RBCs 0 0 /100 [facility] Absolute 6.2 1.6 - 8.3 [facility] Neutrophil 10e9/L [facility] Absolute 1.1 0.8 - 5.3 [facility] Lymphocytes 10e9/L [facility] Absolute 0.7 0.0 - 1.3 [facility] Monocytes 10e9/L [facility] Absolute 0.1 0.0 - 0.7 [facility] Eosinophils 10e9/L [facility] Absolute 0.0 0.0 - 0.2 [facility] Basophils 10e9/L [facility] Abs Immature 0.1 0 - 0.4 [facility] Granulocytes 10e9/L [facility] Absolute 0.[address] [facility] Nucleated RBC [facility] Specimen Anatomical Collection Method Collection Time Receive d Time (Source) Location / / Volume Laterality Blood specimen 12/19/2015 4:12 PM 016 4:14 (specimen) CDT PM CDT Edison Tam MD LAB - BLOOD ORDERABLES Performing Organization Address City/State/[facility] Phon e Number [address] [address] [facility] documented in this encounter Visit Diagnoses [...] documented as of this encounter Care Teams City Auditor Relationship Specialty Start Date End Date Edison Tam MD PCP - General Family Practice 07/23/[address] [place] [address] [phone] Sheri Casey MD MD Pulmonary Disease 07/23/14 420 [facility] [address] [place], [place] [address] Alphonso Billy MD MD Cardiology 08/12/14 12/26/17 420 [place], [place] 8[address] Roland Holt MD Resident Student in [facility] [facility] 05/12/15 09/24/18 [facility] education/training program Amita Ryan MD MD Internal Medicine 12/19/[address] [place] [address] [id number] [place] [address] documented as of this encounter
--- OUTSIDE RECORDS SUMMARY | 2021-10-26 13:33 | XMS_ITS | Encounter Summary ---
:1955 Author Organization [place] Address [address] [place] [address] Care Team Providers Name Role Phone Edison Tam MD Primary Care Provider Sheri Casey MD Unavailable Alphonso Billy MD Unavailable Encounter Details Date Type Department Care Team Description 12/01/2014 Radiant Appointment [facility] Sheri Casey SOB (shortness of Center MD Laisha breath) Radhika-[address] 1[address] Floor, Clinic [place], [place] [address] Mail Code 152 [place], [place] (Work) [address] Social History Tobacco Use [...] breath documented in this encounter Care Teams Branch Service Leader Relationship Specialty Start Date End Date Edison Tam MD PCP - General Family Practice 07/23/14 909 [facility] 4 [place], [place] [phone] Sheri Casey MD MD Pulmonary Disease 07/23/14 420 [facility] 276 [place], [place] 4[address]85 Alphonso Billy MD MD Cardiology 08/12/14 12/26/17 420 [place], [place] [phone] documented as of this encounter
--- OUTSIDE RECORDS SUMMARY | 2021-10-26 13:33 | XMS_ITS | Encounter Summary ---
:1955 Author Organization [place] Address [address] [place] [address] Care Team Providers Name Role Phone Edison Tam MD Primary Care Provider Sheri Casey MD Unavailable Alphonso Billy MD Unavailable Roland Holt MD Unavailable Amita Ryan MD Unavailable Reason for Referral Consultation - Closed Specialty Diagnoses / Procedures Referred By Contact Refer red To Contact Diagnoses Shortness of breath Edison Tam MD [address] [place], [place] [id number] 5 Referral ID Status Reason Start Date Expiration Date Visits Requ ested Visits Authorized [id number] Closed 12/19/2015 12/18/2016 1 1 Consultation - Closed Specialty Diagnoses / Procedures Referred By Contact Refer red To Contact Diagnoses Current chronic use of systemic steroids Thrush Throat pain Edison Tam MD [address] [place], [place] [address] 5 Referral ID Status Reason Start Date Expiration Date Visits Requ ested Visits Authorized [id number] Closed 12/19/2015 12/18/2016 1 1 Reason for Visit Reason Comments Musculoskeletal Problem pt states having pain in bot h knees Sinus Problem pt feels like she has a cold , lungs hurt, congested Encounter Details Date Type Department Care Team Description 12/19/2015 Office Visit [facility] Primary Care Edison Tam ashimoto's thyroiditis (Primary Dx); Sybil Kennedy MD Connective tissue disorder (H); [address] [place] [address] Crohn's disease of large int estine with fistula (H); 4th Floor [place] 4 Acquired hypothyroidism; [place], [place]; [phone] Thrush; [phone] Current chronic use of systemic steroids; (Work) Other abnormal glucose ; [phone] Shortness of br eath; (Fax) H/O screening [...] for medication refills. PCC Prescription Fax = [phone] * Please allow 3 business days for [...] results and signed off on them. ENT [phone] (4th Floor [facility]) Pulmonary Rehab [phone] ([address]) Breast Center ([facility]) [phone] (2nd Floor [facility]) Breast Center ([facility]) [phone] ([address]) Mammogram [...] ??? Anemia Result of CO poisoning and intermediate accountant prednisone use? History of blood transfusion N/A [...] and she would like to see a polysomnographer for her dyspnea. She is wondering about [...] Throat Culture Aerobic Bacterial - nystatin (MYCOSTATIN) 607977 UNIT/ML suspension; Take 5 mLs (500,000 Units) [...] 5.9 4.3 - 6.0 [facility] % [facility] Specimen Anatomical Collection Method Collection Time Receive d Time (Source) Location / / Volume Laterality Blood specimen 12/19/2015 4:12 PM 016 4:14 (specimen) CDT PM CDT Edison Tam MD LAB - BLOOD ORDERABLES Performing Organization Address City/[facility] Phon e Number [address] [address] [facility] CENTER CRP inflammation (12/19/2015 4:12 PM CDT) Analysis Performed At Patho logist Time Signature CRP Inflammation <2.9 0.0 - 8.0 [facility] mg/L [facility] Specimen Anatomical Collection Method Collection Time Receive d Time (Source) Location / / Volume Laterality Blood specimen 12/19/2015 4:12 PM 016 4:14 (specimen) CDT PM CDT Edison Tam MD LAB - BLOOD ORDERABLES Performing Organization Address City/State/ZIP Code Phon e Number [facility] 9[address] [place] [address] [facility] TSH with free T4 reflex (12/19/2015 4:12 PM CDT) athologist Signature TSH 0.93 0.40 - 4.00 [facility] mU/L [facility] Specimen Anatomical Collection Method Collection Time Receive d Time (Source) Location / / Volume Laterality Blood specimen 12/19/2015 4:12 PM 016 4:14 (specimen) CDT PM CDT Edison Tam MD LAB - BLOOD ORDERABLES Performing Organization Address City/[facility]/ZIP Code Phon e Number [address] [address] [facility] Comprehensive metabolic panel (12/19/2015 4:12 PM CDT) athologist Signature Sodium 139 133 - 144 [facility] mmol/L [facility] Potassium 4.1 3.4 - 5.3 [facility] mmol/L [facility] Chloride 106 94 - 109 [facility] mmol/L [facility] Carbon Dioxide 25 20 - 32 [facility] mmol/L [facility] Anion Gap 8 3 - 14 [facility] mmol/L [facility] Glucose 90 70 - 99 [facility] mg/dL [facility] Urea Nitrogen 13 7 - 30 [facility] mg/dL [facility] Creatinine 0.85 0.52 - [facility] 1.04 mg/dL [facility] GFR Estimate 68 >60 [facility] mL/min/1.7 [place] m2 [facility] Comment: Non GFR Calc GFR Estimate If Black 83 >60 mL/min/1.7m2 U [facility] Comment: GFR Calc Calcium 8.8 8.5 - 10.1 mg/dL [facility] Bilirubin Total 0.3 0.2 - 1.3 mg/dL [facility] Albumin 3.8 3.4 - 5.0 g/dL [facility] Protein Total 6.9 6.8 - 8.8 g/dL [facility] Alkaline Phosphatase 64 40 - 150 U/L [facility] ALT 29 0 - 50 U/L [facility] AST 16 0 - 45 U/L [facility] Specimen Anatomical Collection Method Collection Time Receive d Time (Source) Location / / Volume Laterality Blood specimen 12/19/2015 4:12 PM 016 4:14 (specimen) CDT PM CDT Edison Tam MD LAB - BLOOD ORDERABLES Performing Organization Address City/State/ZIP Code Phon e Number [address] [address] [facility] CBC with platelets differential (12/19/2015 4:12 PM CDT) [facility] gist Method Time Signature WBC 8.2 4.0 - [facility] 11.0 [place] 10e9/[facility] RBC Count 4.92 3.8 - 5.2 [facility] 10e12/L [facility] Hemoglobin 14.4 11.7 - [facility] 15.7 g/dL [facility] Hematocrit 43.4 35.0 - [facility] 47.0 % [facility] MCV 88 78 - 100 [facility] MCH 29.3 26.5 - [facility] 33.0 pg [facility] MCHC 33.2 31.5 - [facility] 36.5 g/dL [facility] RDW 12.5 10.0 - [facility] 15.0 % [facility] Platelet Count 263 150 - 450 [facility] 10e9/L [facility] Diff Method Automated [facility] Method [facility] % Neutrophils 76.2 % [facility] % Lymphocytes 13.7 % [facility] % Monocytes 8.4 % [facility] % Eosinophils 0.7 % [facility] % Basophils 0.4 % [facility] % Immature 0.6 % [facility] Granulocytes [facility] Nucleated RBCs 0 0 /100 [facility] Absolute 6.2 1.6 - 8.3 [facility] Neutrophil 10e9/L [facility] Absolute 1.1 0.8 - 5.3 [facility] Lymphocytes 10e9/L [facility] Absolute 0.7 0.0 - 1.3 [facility] Monocytes 10e9/L [facility] Absolute 0.1 0.0 - 0.7 [facility] Eosinophils 10e9/L [facility] Absolute 0.0 0.0 - 0.2 [facility] Basophils 10e9/L [facility] Abs Immature 0.1 0 - 0.4 [facility] Granulocytes 10e9/L [facility] Absolute 0.0 [facility] Nucleated RBC [facility] Specimen Anatomical Collection Method Collection Time Receive d Time (Source) Location / / Volume Laterality Blood specimen 12/19/2015 4:12 PM 016 4:14 (specimen) CDT PM CDT Edison Tam MD LAB - BLOOD ORDERABLES Performing Organization Address City/State/[facility] Code Phon e Number [address] [address] [facility] Rapid strep group A screen POCT (12/19/2015 [...] Patholo gist Method Time Signature Specimen Throat [facility] Culture Micro Heavy INFECTIOUS growth DISEASE Normal [...] Code Phon e Number INFECTIOUS DISEASES [address] [place] [address] DIAGNOSTIC LABORATORY, [address] [phone] [facility] INFECTIOUS DISEASE [address] [place], [place] [phone] [place] [address] DIAGNOSTIC LABORATORY documented in this encounter Visit [...] documented as of this encounter Care Teams Arts And Crafts Instructor Relationship Specialty Start Date End Date Edison Tam MD PCP - General Family Practice 07/23/[address] [place] [address] 4 [place], [place] [phone] Sheri Casey MD MD Pulmonary Disease 07/23/14 420 [facility] 276 [place], [place] [address] Alphonso Billy MD MD Cardiology 08/12/14 12/26/[address] [place] [address] [id number] Roland Holt MD Resident Student in [facility] 05/12/15 09/24/18 [facility] education/training program Amita Ryan MD MD Internal Medicine 12/19/[address] [place] [address] [id number] [place], [place] 30[address] documented as of this encounter
--- OUTSIDE RECORDS SUMMARY | 2021-10-26 13:33 | XMS_ITS | Encounter Summary ---
:1955 Author Organization [place] Address [address] [place] [address] Care Team Providers Name Role Phone Edison Tam MD Primary Care Provider Sheri Casey MD Unavailable Alphonso Billy MD Unavailable Reason for Visit Reason Onset Date Comments Refill Request 03/07/2015 levothyroxine Encounter Details Date Type Department Care Team Description 03/07/2015 Refill [facility], Primary Edison Tam Refill Request Care Center MD Marcia (levothyroxine) 3rd Floor, Clinic [address] [place] [phone] [place] [address] [place] [address] Social History Tobacco Use Types [...] thyroiditis documented in this encounter Care Teams Aircraft Quality Control Inspector Relationship Specialty Start Date End Date Edison Tam MD PCP - General Family Practice 07/23/14 909 [facility] [place] 4 [place] [address] Sheri Casey MD MD Pulmonary Disease 07/23/14 420 [facility] 276 [place] [address] Alphonso Billy MD MD Cardiology 08/12/14 12/26/17 420 [place] [address] documented as of this encounter
--- OUTSIDE RECORDS SUMMARY | 2021-10-26 13:33 | XMS_ITS | Encounter Summary ---
:1955 Author Organization [place] Address [address] [place] [address] Care Team Providers Name Role Phone Edison Tam MD Primary Care Provider Sheri Casey MD Unavailable Alphonso Billy MD Unavailable Encounter Details Date Type Department Care Team Description 12/15/2014 Radiant Appointment [facility] Breast Edison Tam mp or mass in Center Imaging Teresa Kennedy MD breast [address] [place] [phone] [phone] Social History Tobacco Use Types Packs/Day Years [...] breast documented in this encounter Care Teams Beauty Sales Advisor Relationship Specialty Start Date End Date Edison Tam MD PCP - General Family Practice 07/23/14 909 [facility] 4 [place] [address] Sheri Casey MD MD Pulmonary Disease 07/23/14 420 [facility] 276 [place] [address] Alphonso Billy MD MD Cardiology 08/12/14 12/26/[address] [place] [address] documented as of this encounter
--- OUTSIDE RECORDS SUMMARY | 2021-10-26 13:34 | XMS_ITS | Encounter Summary ---
:1955 Author Organization [place] Address [address] [place] [address] Care Team Providers Name Role Phone Edison Olivas MD Primary Care Provider Sheri Casey MD Unavailable Kierra Billy MD Unavailable Reason for Visit Reason Comments Consult For New Patient- h/o carbon mono xide poisoning, fatigue, dizziness Encounter Details Date Type Department Care Team Description 08/27/2014 Office Visit Kierra Shea Fatigue (Prim carlos alberto Dx) [facility] [place] [facility] MD [facility] [address] [place], [place] Building [address] 4th Floor, Clinic 4B [phone] [facility] 88 (Work) 6 [facility] [place] [address] Social History Tobacco Use Types [...] questions or concerns. Moy Khan RN Cardiology Blind Eyeletter [phone] documented in this encounter Progress Notes Kierra [...] UNABLE TO FIND 3 times daily MEDICATION NAME:Icelandic herbs ??? cyanocobalamin (VITAMIN B12) 1000 MCG/ML [...] Units) by mouth daily Discontinue Vitamin D 33501 100 tablet 3 ??? acetaminophen (TYLENOL) 500 [...] on file Social History Narrative [place] [facility] [place] 2[place] She is living in an apartment [facility]. ROS: Constitutional: No fever, chills, or sweats. [...] Narrative 12/01/2014 10:20 AM CDT Interpretation Summary [facility] Echocardiography Laboratory [address] [place] [address] Name: MARIA E COLEY : 1955 Study Date: 12/01/2014 09:23 AM Age: 59 yrs Gender: Female Patient Location: [facility] Reason For Study: , Other malaise and [...] Hutchins MD - 12/02/19 15 Interpretation Summary [facility] Echocardiography Laboratory [address] [place] [address] Name: MARIA E COLEY : 1955 Study Date: 12/01/2014 09:23 AM Age: 59 yrs Gender: Female Patient Location: [facility] Reason For Study: , Other malaise and fa tigue Ordering Physician: KIERRA BILLY Referring Physician: KIERRA BILLY Performed By: Greson Chun RDCS BSA: 1.6 m2 Height: 62 [...] fatigue documented in this encounter Care Teams Security Rep Relationship Specialty Start Date End Date Edison Olivas MD PCP - General Family Practice 07/23/[address] [place] [address] 4 [place] [address] Sheri Casey MD MD Pulmonary Disease 07/23/14 420 [facility] 276 [place] [address] Kierra Billy MD MD Cardiology 08/12/14 12/26/17 420 [place] [address] documented as of this encounter
--- OUTSIDE RECORDS SUMMARY | 2021-10-26 13:34 | XMS_ITS | Encounter Summary ---
:1955 Author Organization [place] Address [address] [place] [address] Care Team Providers Name Role Phone Edison Tam MD Primary Care Provider Sheri Casey MD Unavailable Alphonso Billy MD Unavailable Encounter Details Date Type Department Care Team Description 08/09/2014 Orders Only [facility] Edison Tma, Hy pothyroidism Pulmonary Function MD Laboratory 909 [facility] 4 6th [place] [address] [address] [place] [facility] [place] [address] Social History Tobacco Use Types [...] [facility]REEZE PFT FEV1-%Pred-Pre 118 % [facility] PFT [id number] 80 % [facility] PFT [id number] 77 % [facility] PFT FEFMax-Pred 6.01 L/sec [facility]REEZE PFT FEFMax-Pre 6.23 L/sec [facility]REEZE PFT FEFMax-%Pred-Pr 103 % [facility]REEZE PFT e [id number] 2.19 L/sec [facility] PFT [id number] 2.37 L/sec [facility]REE[facility] PFT [id number]-%Pred-P 108 % [facility]ZE PFT re ExpTime-Pre 7.97 sec BREEZE PFT FIFMax-Pre 4.39 L/sec [facility]REE[facility] PFT VC-Pred 3.02 L [facility] PFT VC-Pre 3.72 L [facility] PFT VC-%Pred-Pre 123 % BREEZE PFT IC-Pred 2.15 L [facility]REE[facility] PFT IC-Pre 2.74 L [facility]REEZE PFT IC-%Pred-Pre 127 % BREEZE PFT ERV-Pred 0.87 L [facility]REE[facility] PFT ERV-Pre 0.98 L [facility] PFT ERV-%Pred-Pre 112 % [facility]REEZE PFT [id number] 81 % BREEZE PFT [id number] 78 % BREEZE PFT DLCOunc-Pred 20.85 ml/min/mmHg BREEZE PFT DLCOunc-Pre 21.73 ml/min/mmHg BREEZE PFT DLCOunc-%Pred-P 104 % BREEZE PFT re VA-Pre 5.15 L BREEZE PFT VA-%Pred-Pre 108 % [facility]REEZE PFT [id number] 77 % [facility]REEZE PFT [id number] 75 % [facility]REEZE PFT Specimen (Source) Anatomical Collection Method Collection Time Re ceived Time Location / / Volume Laterality 08/09/2014 11:29 AM CDT Narrative QIAN PFT - 03/06/2015 6:23 PM PIPE LAYER The FVC, FEV1, FEV1/FVC ratio and ZDA24-58% are within normal limits. ??The inspiratory flow [...] hypothyroidism documented in this encounter Care Teams Wastewater Treatment Plant Supervisor Relationship Specialty Start Date End Date Edison Tam MD PCP - General Family Practice 07/23/14 909 [facility] 4 [place], [place] [phone] Sheri Casey MD MD Pulmonary Disease 07/23/14 420 [facility] 276 [place], [place] [address] Alphonso Billy MD MD Cardiology 08/12/14 12/26/17 420 [place], [place] 9[address] documented as of this encounter
--- OUTSIDE RECORDS SUMMARY | 2021-10-26 13:34 | XMS_ITS | Encounter Summary ---
:1955 Author Organization [place] Address [address] [place] [address] Care Team Providers Name Role Phone Edison Tam MD Primary Care Provider Sheri Casey MD Unavailable Alphonso Billy MD Unavailable Reason for Visit Reason Onset Date Comments Refill Request 09/14/2014 Encounter Details Date Type Department Care Team Description 09/14/2014 Refill Medicine GI - 1E Charan Salazar MD Refill Request [address] [address] 1st Floor, Clinic [address] [place] [address] [place], [place] [phone] Social History Tobacco Use [...] thyroiditis documented in this encounter Care Teams Aoc Airspace Control Officer Relationship Specialty Start Date End Date Edison Tam MD PCP - General Family Practice 07/23/14 909 [facility] [place] [address] [place] [address] Sheri Casey MD MD Pulmonary Disease 07/23/14 420 [facility] [address] [place] [address] Alphonso Billy MD MD Cardiology 08/12/14 12/26/17 420 [place], [place] [phone] documented as of this encounter
--- OUTSIDE RECORDS SUMMARY | 2021-10-26 13:34 | XMS_ITS | Encounter Summary ---
:1955 Author Organization [place] Address [address] [place] [address] Care Team Providers Name Role Phone Edison Tam MD Primary Care Provider Encounter Details Date Type Department Care Team Description 01/27/2014 Orders Only [facility] Charan Salazar MD Inflammatory bowel disease (Crohn's dise ase) (H); [address] Pneumaturia Laboratory [place], [place] [address] [facility] [address] [place], [place] [phone] (Wo rk) [phone] Social History Tobacco Use [...] Inflammatory bowel Resul ts for this AM DOCK GUARD disease (Crohn's procedure a re in disease) (H) the results Pneumaturia section. CBC WITH PLATELETS & Routine 01/27/2014 10:55 Inflammatory bow el Results for this DIFFERENTIAL AM DOCK GUARD disease (Crohn's procedure a re in disease) (H) the results Pneumaturia section. IRON AND IRON BINDING Routine 01/27/2014 10:55 Inflammatory ricki wel Results for this CAPACITY AM DOCK GUARD disease (Crohn's procedure a re in disease) (H) the results Pneumaturia section. HEPATIC FUNCTION PANEL Routine 01/27/2014 10:55 Inflammatory b owel Results for this AM DOCK GUARD disease (Crohn's procedure a re in disease) (H) the results Pneumaturia section. FOLATE Routine 01/27/2014 10:55 Inflammatory bowel Resul ts for this AM DOCK GUARD disease (Crohn's procedure a re in disease) (H) the results Pneumaturia section. FERRITIN Routine 01/27/2014 10:55 Inflammatory bowel Resul ts for this AM DOCK GUARD disease (Crohn's procedure a re in disease) (H) the results Pneumaturia section. ERYTHROCYTE Routine 01/27/2014 10:55 Inflammatory bowel Resul ts for this SEDIMENTATION RATE AM DOCK GUARD disease (Crohn's proce dure are in AUTO disease) (H) the results Pneumaturia section. CRP INFLAMMATION Routine 01/27/2014 10:55 Inflammatory bowel R esults for this AM DOCK GUARD disease (Crohn's procedure a re in disease) (H) the results Pneumaturia section. VITAMIN B12 Routine 01/27/2014 10:55 Inflammatory bowel Resul ts for this AM DOCK GUARD disease (Crohn's procedure a re in disease) (H) the results Pneumaturia section. BASIC METABOLIC PANEL Routine 01/27/2014 10:55 Inflammatory ricki wel Results for this AM DOCK GUARD disease (Crohn's procedure a re in disease) (H) the results Pneumaturia section. ROUTINE UA WITH Routine 01/27/2014 10:22 Inflammatory bowel Re sults for this MICROSCOPIC REFLEX TO AM DOCK GUARD disease (Crohn's pr ocedure are in CULTURE disease) (H) the results Pneumaturia section. documented in this encounter Results Hepatic panel (01/27/2014 10:55 AM DOCK GUARD) athologist Signature Bilirubin 0.1 0.0 - 0.2 [facility] Direct mg/dL [facility] Comment: Effective 10/07/2013 all values are a sum mation of both the conjugated and delta bilirubin fractions. Effective 10/07/2013, the reference rang e for this assay has changed to reflect new instrumentation/methodology. Bilirubin Total 0.2 0.2 - 1.3 mg/dL [facility] Albumin 3.6 3.4 - 5.0 g/dL [facility] Protein Total 6.8 6.8 - 8.8 g/dL [facility] Alkaline Phosphatase 70 40 - 150 U/L [facility] U [facility] ALT 35 0 - 50 U/L [facility] AST 27 0 - 45 U/L [facility] Specimen Anatomical Collection Method Collection Time Receive d Time (Source) Location / / Volume Laterality Blood specimen 01/27/2014 10:55 4 (specimen) AM DOCK GUARD 11:57 AM DOCK GUARD Charan Salazar MD LAB - BLOOD ORDERABLES Performing Organization Address City/State/ZIP Code Phon e Number [facility] [address] LABS Erythrocyte sedimentation rate auto (01/27/2014 10:55 AM DOCK GUARD) P athologist Signature Sed Rate 7 0 - 30 mm/h [facility] Specimen Anatomical Collection Method Collection Time Receive d Time (Source) Location / / Volume Laterality Blood specimen 01/27/2014 10:55 4 (specimen) AM DOCK GUARD 11:57 AM DOCK GUARD Charan Salazar MD LAB - BLOOD ORDERABLES Performing Organization Address City/State/ZIP Code Phon e Number [facility] [address] LABS (ABNORMAL) CBC with platelets differential (01/27/2014 10:55 AM DOCK GUARD) Patholo gist Method Time Signature WBC 10.3 4.0 - [facility] 11.0 [facility] 10e9/L [facility] RBC Count 4.89 3.8 - 5.2 [facility] 10e12/L [facility] Hemoglobin 14.7 11.7 - [facility] 15.7 g/dL [facility] Hematocrit 44.3 35.0 - [facility] 47.0 % [facility] MCV 91 78 - 100 [facility] fl [facility] MCH 30.1 26.5 - [facility] 33.0 pg [facility] MCHC 33.2 31.5 - [facility] 36.5 g/dL [facility] RDW 13.3 10.0 - [facility] 15.0 % [facility] Platelet Count 224 150 - 450 [facility] 10e9/L [facility] Diff Method Automated [facility] Method [facility] % Neutrophils 84.3 % [facility] % Lymphocytes 7.4 % [facility] % Monocytes 6.9 % [facility] % Eosinophils 0.7 % [facility] % Basophils 0.2 % [facility] % Immature 0.5 % [facility] Granulocytes [facility] Absolute 8.7 (H) 1.6 - 8.3 [facility] Neutrophil 10e9/L [facility] Absolute 0.8 0.8 - 5.3 [facility] Lymphocytes 10e9/L [facility] Absolute 0.7 0.0 - 1.3 [facility] Monocytes 10e9/L [facility] Absolute 0.1 0.0 - 0.7 [facility] Eosinophils 10e9/L [facility] Absolute 0.0 0.0 - 0.2 [facility] Basophils 10e9/L [facility] Abs Immature 0.1 0 - 0.4 [facility] Granulocytes 10e9/L [facility] Specimen Anatomical Collection Method Collection Time Receive d Time (Source) Location / / Volume Laterality Blood specimen 01/27/2014 10:55 4 (specimen) AM DOCK GUARD 11:57 AM DOCK GUARD Charan Salazar MD LAB - BLOOD ORDERABLES Performing Organization Address City/State/ZIP Code Phon e Number [address] LABS Basic metabolic panel (01/27/2014 10:55 AM DOCK GUARD) P athologist Signature Sodium 138 133 - 144 [facility] mmol/L [facility] Potassium 4.4 3.4 - 5.3 [facility] mmol/L [facility] Chloride 108 94 - 109 [facility] mmol/L [facility] Carbon Dioxide 23 20 - 32 [facility] mmol/L [facility] Anion Gap 7 3 - 14 [facility] mmol/L [facility] Glucose 76 70 - 99 [facility] mg/dL [facility] Comment: Effective 10/07/2013, the reference range for this assay has changed to reflect new instrumentation/methodology. Urea Nitrogen 9 7 - 30 mg/dL [facility] Comment: Effective 10/07/2013, the reference range for this assay has changed to reflect new instrumentation/methodology. Creatinine 0.94 0.52 - 1.04 mg/dL [facility] GFR Estimate 61 >60 mL/min/1.7m2 [facility] Comment: Non GFR Calc GFR Estimate If Black 73 >60 mL/min/1.7m2 F [facility] Comment: GFR Calc Calcium 9.2 8.5 - 10.1 mg/dL [facility] Comment: Effective 10/07/2013, the reference range for this assay has changed to reflect new instrumentation/methodology. Specimen Anatomical Collection Method Collection Time Receive d Time (Source) Location / / Volume Laterality Blood specimen 01/27/2014 10:55 4 (specimen) AM DOCK GUARD 11:57 AM DOCK GUARD Charan Salazar MD LAB - BLOOD ORDERABLES Performing Organization Address City/[facility]/ZIP Code Phon e Number [address] LABS Zinc (01/27/2014 10:55 AM DOCK GUARD) athologist Signature Zinc 86 [facility] Comment: Reference range: 60 [...] Test developed and characteristics deter mined by [email or web address]. See Compliance Statement B : [employer]/CS Performed by [email or web address], [address] [place] [id number] [email or web address], Grant Akins MD, L ab. Director Specimen Anatomical Collection Method Collection Time Receive d Time (Source) Location / / Volume Laterality Blood specimen 01/27/2014 10:55 4 (specimen) AM DOCK GUARD 11:57 AM DOCK GUARD Charan Salazar MD LAB - BLOOD ORDERABLES Performing Organization Address City/[facility]/ZIP Code Phon e Number [id number] [place] [address] LABS Folate (01/27/2014 10:55 AM DOCK GUARD) athologist Signature Folate >24.0 >5.4 ng/mL [facility] Interp: ??>5.4 ng/mL = Normal [facility] Specimen Anatomical Collection Method Collection Time Receive d Time (Source) Location / / Volume Laterality Blood specimen 01/27/2014 10:55 4 (specimen) AM DOCK GUARD 11:57 AM DOCK GUARD Charan Salazar MD LAB - BLOOD ORDERABLES Performing Organization Address City/State/ZIP Code Phon e Number [facility] [address] LABS Vitamin B12 (01/27/2014 10:55 AM DOCK GUARD) P athologist Signature Vitamin B12 469 >210 pg/mL [facility] Comment: Interp: [phone] = Normal Specimen Anatomical Collection Method Collection Time Receive d Time (Source) Location / / Volume Laterality Blood specimen 01/27/2014 10:55 4 (specimen) AM DOCK GUARD 11:57 AM DOCK GUARD Charan Salazar MD LAB - BLOOD ORDERABLES Performing Organization Address City/[facility]/ZIP Code Phon e Number [facility] [address] LABS Iron and iron binding capacity (01/27/2014 10:55 AM DOCK GUARD) athologist Signature Iron 144 35 - 180 [facility] ug/dL [facility] Iron Binding 362 240 - 430 [facility] Cap ug/dL [facility] Iron Saturation 40 15 - 46 % [facility] Specimen Anatomical Collection Method Collection Time Receive d Time (Source) Location / / Volume Laterality Blood specimen 01/27/2014 10:55 4 (specimen) AM DOCK GUARD 11:57 AM DOCK GUARD Charan Salazar MD LAB - BLOOD ORDERABLES Performing Organization Address City/State/ZIP Code Phon e Number [facility] [address] LABS Ferritin (01/27/2014 10:55 AM DOCK GUARD) P athologist Signature Ferritin 27 10 - 300 [facility] ng/mL [facility] Specimen Anatomical Collection Method Collection Time Receive d Time (Source) Location / / Volume Laterality Blood specimen 01/27/2014 10:55 4 (specimen) AM DOCK GUARD 11:57 AM DOCK GUARD Charan Salazar MD LAB - BLOOD ORDERABLES Performing Organization Address City/State/ZIP Code Phon e Number [facility] 500 [place] [address] [facility] CRP inflammation (01/27/2014 10:55 AM DOCK GUARD) Analysis Performed At Patho logist Time Signature CRP Inflammation <2.9 0.0 - 8.0 [facility] mg/L [facility] Specimen Anatomical Collection Method Collection Time Receive d Time (Source) Location / / Volume Laterality Blood specimen 01/27/2014 10:55 4 (specimen) AM DOCK GUARD 11:57 AM DOCK GUARD Charan Salazar MD LAB - BLOOD ORDERABLES Performing Organization Address City/[facility] Code Phon e Number [facility] 500 [place] [address] [facility] (ABNORMAL) Routine UA with micro reflex to culture (01/27/2014 10:22 AM DOCK GUARD) Patholo gist Method Time Signature Color Urine Yellow [facility] Appearance Urine Clear [facility] Glucose Urine Negative NEG mg/dL [facility] Bilirubin Urine Negative NEG [facility] Ketones Urine Negative NEG mg/dL [facility] Specific [place] 1.020 1.003 - [facility] Urine 1.035 [facility] Blood Urine Negative NEG [facility] pH Urine 5.5 5.0 - 7.0 [facility] pH [facility] Protein Albumin 10 (A) NEG mg/dL [facility] Urine [facility] Urobilinogen Normal 0.0 - 2.0 [facility] mg/dL mg/dL [facility] Nitrite Urine Negative NEG [facility] Leukocyte Trace (A) [...] Urine specimen 01/27/2014 10:22 4 (specimen) AM DOCK GUARD 10:23 AM DOCK GUARD Charan Salazar MD LAB - URINE ORDERABLES Performing Organization Address City/State/ZIP Code Phon e Number [facility] 500 [place] [address] [facility] documented in this encounter Visit Diagnoses Diagnosis Inflammatory bowel disease (Crohn's dise ase) (H) Regional enteritis of unspecified site Pneumaturia Other specified disorders of urethra documented in this encounter Care Teams Oyster Grader Relationship Specialty Start Date End Date Edison Tam MD PCP - General Family Practice 09/21/11 07/22/[address] [place] [address] documented as of this encounter
--- OUTSIDE RECORDS SUMMARY | 2021-10-26 13:34 | XMS_ITS | Encounter Summary ---
:1955 Author Organization [place] Address [address] [place] [address] Care Team Providers Name Role Phone Edison Tam MD Primary Care Provider Sheri Casey MD Unavailable Alphonso Billy MD Unavailable Encounter Details Date Type Department Care Team Description 11/30/2014 Orders Only [facility] Sheri Casey SOB (s hortness of Science MD Laisha breath) (Primary Dx) 3rd Floor, Clinic 3A [address] [phone] (Wo rk) [phone] Social History Tobacco Use Types Packs/Day Years [...] breath documented in this encounter Care Teams Dairy Farm Manager Relationship Specialty Start Date End Date Edison Tam MD PCP - General Family Practice 07/23/[address] [place] [address] Sheri Casey MD MD Pulmonary Disease 07/23/[address] [address] Alphonso Billy MD MD Cardiology 08/12/14 12/26/17 420 [place] [address] documented as of this encounter
--- OUTSIDE RECORDS SUMMARY | 2021-10-26 13:34 | XMS_ITS | Encounter Summary ---
:1955 Author Organization [place] Address [address] [place] [address] Care Team Providers Name Role Phone Edison Tam MD Primary Care Provider Encounter Details Date Type Department Care Team Description 01/14/2014 Radiant Appointment [facility] X[facility] Sid Lilly Back pain RACHNA DONA Bunch MD BUILDING [address] [place] [address] R2 1ST FLOOR, CLINIC [address] [phone] (Wo rk) [address] [phone] Social History Tobacco Use Types Packs/Day Years [...] Back pain Re sults for this VIEWS PROCEDURE WRITER procedure are i n the results section. documented in this encounter Results XR Lumbar Spine 2-3 Views* (01/14/2014 5:35 PM PROCEDURE WRITER) Anatomical Region Laterality Modality T-spine, L-spine, Abdomen/Pelvis Compute d Radiography Specimen (Source) Anatomical Location Collection Method / Collectio n Time Received Time / Laterality Volume Impressions 01/15/2014 12:18 AM PROCEDURE WRITER IMPRESSION: 1. No acute bone abnormality of the lumb ar spine. No unstable listhesis is seen. KRYSTINA CANCINO MD Narrative 01/15/2014 12:18 AM PROCEDURE WRITER EXAMINATION: Lumbar spine flexion/extension DATE: 01/14/2014 HISTORY: [...] unspecified documented in this encounter Care Teams Glass Mould Cleaner Relationship Specialty Start Date End Date Edison Tam MD PCP - General Family Practice 09/21/11 07/22/14 909 [facility] 4 [place] [address] documented as of this encounter
--- OUTSIDE RECORDS SUMMARY | 2021-10-26 13:34 | XMS_ITS | Encounter Summary ---
:1955 Author Organization [place] Address [address] [place] [address] Care Team Providers Name Role Phone Edison Tam MD Primary Care Provider Sheri Casey MD Unavailable Alphonso Billy MD Unavailable Reason for Visit Reason Onset Date Comments Refill Request 10/11/2014 ropinirole Encounter Details Date Type Department Care Team Description 10/11/2014 Refill [facility], Primary Edison Tam Refill Request Care Center MD Marcia (ropinirole) 3rd Floor, Clinic [address] [place] [phone] [place] [address] [place] [address] Social History Tobacco Use Types [...] (RLS) documented in this encounter Care Teams Tinner Automatic Relationship Specialty Start Date End Date Edison Tam MD PCP - General Family Practice 07/23/[address] [place] [address] 4 [place], [place] [phone] Sheri Casey MD MD Pulmonary Disease 07/23/14 420 [facility] 276 [place], [place] [phone] Alphonso Billy MD MD Cardiology 08/12/14 12/26/17 420 [place], [place] [phone] documented as of this encounter
--- OUTSIDE RECORDS SUMMARY | 2021-10-26 13:34 | XMS_ITS | Encounter Summary ---
:1955 Author Organization [place] Address [address] [place] [address] Care Team Providers Name Role Phone Edison Tam MD Primary Care Provider Encounter Details Date Type Department Care Team Description 01/27/2014 Radiant Appointment [facility]; Center Lumbar stenosis with neuroge oleksandr claudication; Radhika-Wangensteen Lumbar r adicular pain Building 1st Floor, Clinic 1D [place], [place] [address] Social History Tobacco Use Types [...] n Results for this & W CONTRAST LEVEL VIAL MARKER Lumbar stenosis with procedu re are in neurogenic the results claudication section. Lumbar radicular pain documented in this encounter Results MR Lumbar Spine w/o & w Contrast (01/27/2014 11:59 AM LEVEL VIAL MARKER) Anatomical Region Laterality Modality Spine, SUBRAD MR MSK, [facility] MR SPINE Magne tic Resonance Specimen (Source) Anatomical Location Collection Method / Collectio n Time Received Time / Laterality Volume Impressions 01/27/2014 5:24 PM LEVEL VIAL MARKER Impression: 1. No significant change in degenerative [...] WAYNE FONSECA MD Narrative 01/27/2014 5:24 PM LEVEL VIAL MARKER MR LUMBAR SPINE W/O & W CONTRAST [...] Site gadobutrol (GADAVIST) Given 01/27/2014 11:35 AM LEVEL VIAL MARKER 7.5 mLs Left Arm injection 7.5 mL 7.5 mL, Intravenous, ONCE, On Sat01/27/14 at 1115, For 1 dose documented in this encounter Care Teams Facilities Project Manager Relationship Specialty Start Date End Date Edison Tam MD PCP - General Family Practice 09/21/11 07/22/[address] [address] documented as of this encounter
--- OUTSIDE RECORDS SUMMARY | 2021-10-26 13:34 | XMS_ITS | Encounter Summary ---
:1955 Author Organization [place] Address [address] [place] [address] Care Team Providers Name Role Phone Edison Tam MD Primary Care Provider Reason for Visit Reason Onset Date Comments Refill Request 01/27/2014 ropinirole Encounter Details Date Type Department Care Team Description 01/27/2014 Refill [facility], Primary Edison Tam Refill Request Care Center MD Marcia (ropinirole) 3rd Floor, Clinic 3A [id number] [place] [address] [place] [address] Social History Tobacco Use Types [...] (RLS) documented in this encounter Care Teams Continuous Improvement Engineer Relationship Specialty Start Date End Date Edison Tam MD PCP - General Family Practice 09/21/11 07/22/[address] [address] documented as of this encounter
--- OUTSIDE RECORDS SUMMARY | 2021-10-26 13:34 | XMS_ITS | Encounter Summary ---
:1955 Author Organization [place] Address [address] [place] [address] Care Team Providers Name Role Phone Edison Tam MD Primary Care Provider Reason for Visit Reason Onset Date Comments Refill Request 06/18/2014 Encounter Details Date Type Department Care Team Description 06/18/2014 Refill Medicine GI - 1E Charan Salazar MD Refill Request [address] [address] 1st Floor, Clinic [address] [place] [address] [place] [phone] Social History Tobacco Use Types Packs/Day [...] deficiencies documented in this encounter Care Teams Mailroom Supervisor Relationship Specialty Start Date End Date Edison Tam MD PCP - General Family Practice 09/21/11 07/22/[address] [address] documented as of this encounter
--- OUTSIDE RECORDS SUMMARY | 2021-10-26 13:34 | XMS_ITS | Encounter Summary ---
:1955 Author Organization [place] Address [address] [place] [address] Care Team Providers Name Role Phone Edison Tam MD Primary Care Provider Reason for Visit Reason Onset Date Comments Refill Request 12/24/2013 Encounter Details Date Type Department Care Team Description 12/24/2013 Refill Diabetes and Endocri ne Laisha Moraes MD Refill Request 6th Floor, Clinic 6A [address] [facility] [address] 6 [facility] [place] [phone] Social History Tobacco Use Types Packs/Day [...] on filedocumented in this encounter Care Teams School Library Media Program Director Relationship Specialty Start Date End Date Edison Tam MD PCP - General Family Practice 09/21/11 07/22/[address] [address] documented as of this encounter
--- OUTSIDE RECORDS SUMMARY | 2021-10-26 13:34 | XMS_ITS | Encounter Summary ---
:1955 Author Organization [place] Address [address] [place] [address] Care Team Providers Name Role Phone Edison Tam MD Primary Care Provider Encounter Details Date Type Department Care Team Description 01/25/2014 Radiant Appointment [facility] in in joint, Center forearm, right [facility] 1st Floor, Clinic 1D Mail Code [address] [place], [place] [address] Social History Tobacco Use Types [...] joint, R esults for this 3 VIEWS MICROBIOLOGY TECHNICIAN forearm, right procedure are in the results section. documented in this encounter Results XR Wrist Right G/E 3 Views (01/25/2014 2:55 PM MICROBIOLOGY TECHNICIAN) Anatomical Region Laterality Modality Right Wrist Right Computed Radiography Specimen (Source) Anatomical Location Collection Method / Collectio n Time Received Time / Laterality Volume Impressions 01/25/2014 6:07 PM MICROBIOLOGY TECHNICIAN Impression: Almost healed transverse fracture of the distal radius with stable alignment. 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 I have personally reviewed the examinati on and initial interpretation and I agree with the findings. SIOMARA LUNA MD Narrative 01/25/2014 6:07 PM MICROBIOLOGY TECHNICIAN XR WRIST RT G/E 3 VW, 01/25/2014 [...] right documented in this encounter Care Teams Human Resources Consultant Relationship Specialty Start Date End Date Edison Tam MD PCP - General Family Practice 09/21/11 07/22/14 909 [facility] 4 [place] [address] documented as of this encounter
--- OUTSIDE RECORDS SUMMARY | 2021-10-26 13:34 | XMS_ITS | Encounter Summary ---
:1955 Author Organization [place] Address [address] [place] [address] Care Team Providers Name Role Phone Edison Tam MD Primary Care Provider Reason for Visit Reason Comments Infusion Reclast Encounter Details Date Type Department Care Team Description 01/20/2014 Infusion Therapy Specialty Infusion Laisha Moraes istory of corticosteroid therapy; Visit and Procedure MD [facility] [address] [place] [address] LukeYonatan [facility] [address] [place], [place] [address] [place] [address] SE (Work) [place], [place] [phone] [address] (Fax) [phone] Social History Tobacco Use Types Packs/Day Years [...] Comments Blood Pressure 95/58 01/20/2014 4:10 PM AMBULANCE ATTENDANT Pulse 102 01/20/2014 4:10 PM AMBULANCE ATTENDANT Temperature 36.6 ??C (97.9 ??F) 01/20/2014 2:04 PM AMBULANCE ATTENDANT Respiratory Rate - - Oxygen Saturation 96% 01/20/2014 2:04 PM AMBULANCE ATTENDANT Inhaled Oxygen Concentration - - Weight - - Height - - Body Mass Index - - documented in this encounter Progress Notes Urszula Camejo RN - 01/20/2014 3:51 PM CST Infusion Nursing Note: Maria E Coley presents today to [facility] for a Reclast infusion. During today's [facility] appointment orders from Dr. Laisha Moraes were completed. Frequency: every year Progress note: ID verified by name and . Assessment completed. Vitals were stable throughout time in [facility]. Patient education regarding infusion and possible [...] Doctor Discharge instructions were reviewed with patient. Patient/labor service representative verbalized understanding of discharge instructions and all questions answered. [facility] in stable condition. Urszula Camejo RN Administrations This Visit zoledronic Acid (RECLAST) IVPB 5 mg Administered Action Dose Route Administered By 01/20/2014 New Bag 5 mg Intravenous Urszula Camejo RN BP 112/61 Pulse 80 Temp(Src) 97.9 ??F (36.6 ??C) (Oral) SpO2 96% LANCE ATTENDANT documented in this encounter Plan of Treatment Not on filedocumented as of this encounter Procedures Procedure Name Priority Date/Time Associated Diagnosis Comme nts CREATININE Routine 01/20/2014 2:30 PM History of Results f or this AMBULANCE ATTENDANT corticosteroid t herapy procedure are in Sen[facility] Osteoporosis the resu lts section. CALCIUM Routine 01/20/2014 2:30 PM History of Results f or this AMBULANCE ATTENDANT corticosteroid t herapy procedure are in Sen[facility] Osteoporosis the resu lts section. documented in this encounter Results Calcium (01/20/2014 2:30 PM AMBULANCE ATTENDANT) athologist Signature Calcium 9.0 8.5 - 10.1 [facility] mg/dL CAMPUS LABS Comment: Effective 10/07/2013, the reference range for this assay has changed to reflect new instrumentation/methodology. Specimen Anatomical Collection Method Collection Time Receive d Time (Source) Location / / Volume Laterality Blood specimen 01/20/2014 2:30 PM 014 2:38 (specimen) AMBULANCE ATTENDANT PM AMBULANCE ATTENDANT Laisha Moraes MD LAB - BLOOD ORDERABLES Performing Organization Address City/[facility]/ZIP Code Phon e Number [address] [address] [facility] LABS (ABNORMAL) Creatinine (01/20/2014 2:30 PM AMBULANCE ATTENDANT) athologist Signature Creatinine 0.96 0.52 - [facility] 1.04 mg/dL [facility] GFR Estimate 59 (L) >60 [facility] mL/min/1.7 [facility] m2 Comment: Non GFR Calc GFR Estimate If Black 72 >60 mL/min/1.7m2 [facility] Comment: GFR Calc Specimen Anatomical Collection Method Collection Time Receive d Time (Source) Location / / Volume Laterality Blood specimen 01/20/2014 2:30 PM 014 2:38 (specimen) AMBULANCE ATTENDANT PM AMBULANCE ATTENDANT Laisha Moraes MD LAB - BLOOD ORDERABLES Performing Organization Address City/[facility]/ZIP Code Phon e Number [address] [address] [facility] LABS documented in this encounter Visit Diagnoses Diagnosis History of corticosteroid therapy Personal history of systemic steroid the rapy Senile osteoporosis documented in this encounter Administered Medications Inactive Administered Medications - up to 3 most recent administrations Medication Order MAR Action Action Date Dose Rate Site zoledronic Acid (RECLAST) IVPB 5 mg New Bag 01/20/2014 3:39 PM AMBULANCE ATTENDANT 5 mg 5 mg, Intravenous, Administer over 30 Minutes, ONCE, On Sat01/20/14 at 1530, For 1 dose, Every year documented in this encounter Care Teams Director Report Relationship Specialty Start Date End Date Edison Tam MD PCP - General Family Practice 09/21/11 07/22/[address] [address] documented as of this encounter
--- OUTSIDE RECORDS SUMMARY | 2021-10-26 13:34 | XMS_ITS | Encounter Summary ---
:1955 Author Organization [facility] Address [address] [place] [address] Care Team Providers Name Role Phone Edison Tam MD Primary Care Provider Reason for Visit Reason Comments RECHECK 9 Months Follow-up Willam Decker Encounter Details Date Type Department Care Team Description 01/11/2014 Office Visit Medicine GI - 1E Charan Salazar MD Inflammatory bowel disease (Crohn's dise ase) (H) (Primary Dx); [address] [place] 1st Floor, Clinic [address] [place] [address] SE (Work) [place] [address] Social History Tobacco Use Types [...] Comments Blood Pressure 111/66 01/11/2014 2:36 PM PANTS PRESSER Pulse 88 01/11/2014 2:36 PM PANTS PRESSER Temperature 36.8 ??C (98.3 ??F) 01/11/2014 2:36 PM PANTS PRESSER Respiratory Rate - - Oxygen Saturation 95% 01/11/2014 2:36 PM PANTS PRESSER Inhaled Oxygen Concentration - - Weight 58 kg (127 lb 12.8 oz) 01/11/2014 2:36 PM PANTS PRESSER Height 154.9 cm (5' 1) 01/11/2014 2:36 PM PANTS PRESSER Body Mass Index 24.15 01/11/2014 2:36 PM PANTS PRESSER documented in this encounter Patient Instructions Patient [...] During business hours, you may reach my Repair Operator at . For urgent/emergent questions after business hours, you may reach the on-call GI Fellowby contacting the [facility] booster station operator at . Any benign/non-urgent test results are usually communicated via letter or 1C Company[employer] message within 1-2weeks after completion. Urgent results (those that require a change in the previously-discussed careplan) are usually communicated via a phone call once available from our clinic staff to discuss the results and the next steps in your evaluation. I recommend signing up for App in the Airt access if you have not already done [...] about your healthcare. Sincerely, Charan Salazar MD Welder Manufacture [facility] - Department of Medicine Division of Gastroenterology S PRESSER documented in this encounter Progress Notes Charan [...] have stabilized. RTC 6 months with GI RAT BREEDER Borne, sooner if symptomatic. Thank you for this consultation. It was a pleasure to participate in the care of this patient; please contact us with any further questions. A total of 25 minutes was spent with this patient, 50% of which was counseling regarding the above delineated issues. Charan Salazar MD [employer] [facility] - Department of Medicine Division of Gastroenterology S PRESSER documented in this encounter Nursing Notes Laxmi [...] mass index is 24.16 kg/(m^2). WOUND EVALUATION: S PRESSER documented in this encounter Plan of Treatment Not on filedocumented as of this encounter Results Hepatic panel (01/27/2014 10:55 AM PANTS PRESSER) athologist Signature Bilirubin 0.1 0.0 - 0.2 [facility] Direct mg/dL CAMPUS LABS Comment: Effective 10/07/2013 all values are a sum mation of both the conjugated and delta bilirubin fractions. Effective 10/07/2013, the reference rang e for this assay has changed to reflect new instrumentation/methodology. Bilirubin Total 0.2 0.2 - 1.3 mg/dL [facility] [place] [facility] Albumin 3.6 3.4 - 5.0 g/dL [facility]S Protein Total 6.8 6.8 - 8.8 g/dL [facility] [place] [facility] Alkaline Phosphatase 70 40 - 150 U/L [facility] ALT 35 0 - 50 U/L [facility] AST 27 0 - 45 U/L [facility] Specimen Anatomical Collection Method Collection Time Receive d Time (Source) Location / / Volume Laterality Blood specimen 01/27/2014 10:55 4 (specimen) AM PANTS PRESSER 11:57 AM PANTS PRESSER Charan Salazar MD LAB - BLOOD ORDERABLES Performing Organization Address City/[facility]/ZIP Code Phon e Number [address] LABS Erythrocyte sedimentation rate auto (01/27/2014 10:55 AM PANTS PRESSER) P athologist Signature Sed Rate 7 0 - 30 mm/h [facility] LABS Specimen Anatomical Collection Method Collection Time Receive d Time (Source) Location / / Volume Laterality Blood specimen 01/27/2014 10:55 4 (specimen) AM PANTS PRESSER 11:57 AM PANTS PRESSER Charan Salazar MD LAB - BLOOD ORDERABLES Performing Organization Address City/State/ZIP Code Phon e Number [address] LABS (ABNORMAL) CBC with platelets differential (01/27/2014 10:55 AM PANTS PRESSER) Patholo gist Method Time Signature WBC 10.3 4.0 - [facility] 11.0 OPP 10e9/L [place] [facility] RBC Count 4.89 3.8 - 5.2 [facility] 10e12/L [facility] Hemoglobin 14.7 11.7 - [facility] 15.7 g/dL [facility] Hematocrit 44.3 35.0 - [facility] 47.0 % [facility] MCV 91 78 - 100 [facility] fl [facility] MCH 30.1 26.5 - [facility] 33.0 pg [facility] MCHC 33.2 31.5 - [facility] 36.5 g/dL [facility] RDW 13.3 10.0 - [facility] 15.0 % [facility] Platelet Count 224 150 - 450 [facility] 10e9/L [facility] Diff Method Automated [facility] Method [facility] % Neutrophils 84.3 % [facility] % Lymphocytes 7.4 % [facility] % Monocytes 6.9 % [facility] % Eosinophils 0.7 % [facility] % Basophils 0.2 % [facility] % Immature 0.5 % [facility] Granulocytes [facility] Absolute 8.7 (H) 1.6 - 8.3 [facility] Neutrophil 10e9/L [facility] Absolute 0.8 0.8 - 5.3 [facility] Lymphocytes 10e9/L [facility] Absolute 0.7 0.0 - 1.3 [facility] Monocytes 10e9/L [facility] Absolute 0.1 0.0 - 0.7 [facility] Eosinophils 10e9/L [facility] Absolute 0.0 0.0 - 0.2 [facility] Basophils 10e9/L [facility] Abs Immature 0.1 0 - 0.4 [facility] Granulocytes 10e9/L [facility] Specimen Anatomical Collection Method Collection Time Receive d Time (Source) Location / / Volume Laterality Blood specimen 01/27/2014 10:55 4 (specimen) AM PANTS PRESSER 11:57 AM PANTS PRESSER Charan Salazar MD LAB - BLOOD ORDERABLES Performing Organization Address City/State/ZIP Code Phon e Number [phone] [place] [address] LABS Basic metabolic panel (01/27/2014 10:55 AM PANTS PRESSER) P athologist Signature Sodium 138 133 - 144 [facility] mmol/L [place] [facility] Potassium 4.4 3.4 - 5.3 [facility] mmol/L [place] [facility] Chloride 108 94 - 109 [facility] mmol/L [place] [facility] Carbon Dioxide 23 20 - 32 [facility] mmol/L [place] [facility] Anion Gap 7 3 - 14 [facility] mmol/L [place] [facility] Glucose 76 70 - 99 [facility] mg/dL [place] [facility] Comment: Effective 10/07/2013, the reference range for this assay has changed to reflect new instrumentation/methodology. Urea Nitrogen 9 7 - 30 mg/dL [facility] Comment: Effective 10/07/2013, the reference range for this assay has changed to reflect new instrumentation/methodology. Creatinine 0.94 0.52 - 1.04 mg/dL [facility] [place] [facility] GFR Estimate 61 >60 mL/min/1.7m2 [facility] Comment: Non GFR Calc GFR Estimate If Black 73 >60 mL/min/1.7m2 F [facility] [place] [facility] Comment: GFR Calc Calcium 9.2 8.5 - 10.1 mg/dL [facility] Comment: Effective 10/07/2013, the reference range for this assay has changed to reflect new instrumentation/methodology. Specimen Anatomical Collection Method Collection Time Receive d Time (Source) Location / / Volume Laterality Blood specimen 01/27/2014 10:55 4 (specimen) AM PANTS PRESSER 11:57 AM PANTS PRESSER Charan Salazar MD LAB - BLOOD ORDERABLES Performing Organization Address City/[facility]/ZIP Code Phon e Number [address] LABS Zinc (01/27/2014 10:55 AM PANTS PRESSER) athologist Signature Zinc 86 [facility] LABS Comment: Reference range: 60 to [...] Test developed and characteristics deter mined by [employer]. See Compliance Statement B : [employer]/CS Performed by [employer], [address] [place] [id number] [email or web address], Grant Akins MD, L ab. Director Specimen Anatomical Collection Method Collection Time Receive d Time (Source) Location / / Volume Laterality Blood specimen 01/27/2014 10:55 4 (specimen) AM PANTS PRESSER 11:57 AM PANTS PRESSER Charan Salazar MD LAB - BLOOD ORDERABLES Performing Organization Address [facility] Phon e Number [phone] [place] [address] LABS Folate (01/27/2014 10:55 AM PANTS PRESSER) athologist Signature Folate >24.0 >5.4 ng/mL [facility] Interp: ??>5.4 ng/mL = Normal CAMPUS LABS Specimen Anatomical Collection Method Collection Time Receive d Time (Source) Location / / Volume Laterality Blood specimen 01/27/2014 10:55 4 (specimen) AM PANTS PRESSER 11:57 AM PANTS PRESSER Charan Salazar MD LAB - BLOOD ORDERABLES Performing Organization Address City/State/ZIP Code Phon e Number [facility] [address] LABS Vitamin B12 (01/27/2014 10:55 AM PANTS PRESSER) athologist Signature Vitamin B12 469 >210 pg/mL [facility] LABS Comment: Interp: [phone] = Normal Specimen Anatomical Collection Method Collection Time Receive d Time (Source) Location / / Volume Laterality Blood specimen 01/27/2014 10:55 4 (specimen) AM PANTS PRESSER 11:57 AM PANTS PRESSER Charan Salazar MD LAB - BLOOD ORDERABLES Performing Organization Address City/State/ZIP Code Phon e Number [facility] [address] LABS Iron and iron binding capacity (01/27/2014 10:55 AM PANTS PRESSER) athologist Signature Iron 144 35 - 180 [facility] ug/dL CAMPUS LABS Iron Binding 362 240 - 430 [facility] Cap ug/dL CAMPUS LABS Iron Saturation 40 15 - 46 % [facility] LABS Specimen Anatomical Collection Method Collection Time Receive d Time (Source) Location / / Volume Laterality Blood specimen 01/27/2014 10:55 4 (specimen) AM PANTS PRESSER 11:57 AM PANTS PRESSER Charan Salazar MD LAB - BLOOD ORDERABLES Performing Organization Address City/[facility]/ZIP Code Phon e Number [facility] [address] LABS Ferritin (01/27/2014 10:55 AM PANTS PRESSER) athologist Signature Ferritin 27 10 - 300 [facility] ng/mL CAMPUS LABS Specimen Anatomical Collection Method Collection Time Receive d Time (Source) Location / / Volume Laterality Blood specimen 01/27/2014 10:55 4 (specimen) AM PANTS PRESSER 11:57 AM PANTS PRESSER Charan Salazar MD LAB - BLOOD ORDERABLES Performing Organization Address City/[facility]/ZIP Code Phon e Number [facility] [address] [facility] [place] [facility] CRP inflammation (01/27/2014 10:55 AM PANTS PRESSER) Analysis Performed At Patho logist Time Signature CRP Inflammation <2.9 0.0 - 8.0 [facility] mg/L [facility] Specimen Anatomical Collection Method Collection Time Receive d Time (Source) Location / / Volume Laterality Blood specimen 01/27/2014 10:55 4 (specimen) AM PANTS PRESSER 11:57 AM PANTS PRESSER Charan Salazar MD LAB - BLOOD ORDERABLES Performing Organization Address City/[facility] Code Phon e Number [facility] [address] [place], [place] [phone] [place] [address] LABS (ABNORMAL) Routine UA with micro reflex to culture (01/27/2014 10:22 AM PANTS PRESSER) Patholo gist Method Time Signature Color Urine Yellow [facility] Appearance Urine Clear [facility] Glucose Urine Negative NEG mg/dL [facility] Bilirubin Urine Negative NEG [facility] Ketones Urine Negative NEG mg/dL [facility] Specific Ceiba 1.020 1.003 - [facility] Urine 1.035 [facility] Blood Urine Negative NEG [facility] pH Urine 5.5 5.0 - 7.0 [facility] pH [facility] Protein Albumin 10 (A) NEG mg/dL [facility] Urine [facility] Urobilinogen Normal 0.0 - 2.0 [facility] mg/dL mg/dL [facility] Nitrite Urine Negative NEG [facility] Leukocyte Trace (A) NEG [...] Urine specimen 01/27/2014 10:22 4 (specimen) AM PANTS PRESSER 10:23 AM PANTS PRESSER Charan Salazar MD LAB - URINE ORDERABLES Performing Organization Address City/State/ZIP Code Phon e Number [facility] [address] [place] [address] [facility] LABS documented in this encounter Visit Diagnoses Diagnosis Inflammatory bowel disease (Crohn's dise ase) (H) - Primary Regional enteritis of unspecified site Pneumaturia Other specified disorders of urethra documented in this encounter Care Teams Hand Screen Printer Relationship Specialty Start Date End Date Edison Tam MD PCP - General Family Practice 09/21/11 07/22/[address] [address] documented as of this encounter
--- OUTSIDE RECORDS SUMMARY | 2021-10-26 13:34 | XMS_ITS | Encounter Summary ---
:1955 Author Organization [facility] Address [address] [place] [address] Care Team Providers Name Role Phone Edison Tam MD Primary Care Provider Reason for Visit Reason Onset Date Comments Refill Request 09/25/2013 requip Encounter Details Date Type Department Care Team Description 09/25/2013 Refill [facility], Primary Edison Tam Refill Request (requip) Care Center MD [place] 3rd Floor, Clinic 3A [id number] [place] [address] [place] [address] Social History Tobacco Use Types [...] (RLS) documented in this encounter Care Teams Mixer Foam Rubber Relationship Specialty Start Date End Date Edison Tam MD PCP - General Family Practice 09/21/11 07/22/[address] [address] documented as of this encounter
--- OUTSIDE RECORDS SUMMARY | 2021-10-26 13:34 | XMS_ITS | Encounter Summary ---
:1955 Author Organization [place] Address [address] [place] [address] Care Team Providers Name Role Phone Edison Olivas MD Primary Care Provider Sheri Casey MD Unavailable Reason for Referral CV Cardio consult - Closed Specialty Diagnoses / Procedures Referred By Contact Refer red To Contact Diagnoses H/O carbon monoxide poisoning Fatigue Edison Olivas MD [address] [facility] [place] 4 [place], [place] [address] Referral ID Status Reason Start Date Expiration Date Visits Requ ested Visits Authorized [id number] Closed 08/09/2014 02/05/2015 1 1 Reason for Visit Reason Comments Toxic Inhalation I have been to carbon mono xide poisoning for 2 years.: Encounter Details Date Type Department Care Team Description 08/09/2014 [facility] Visit [facility] H/O carbon monoxide poisoning (Primary Dx); [facility] Teresa Kennedy MD Fatigue; 3rd Floor, Clinic 3A [address] [facility] Myalgia and myositis ; [facility] 4 Yossi's thyroiditis; [place], [place] Restless leg syndrome; [address] [place] [address] [facility] [place] [phone] [facility] 88 (Work) [place], [place] [phone] [address] (Fax) [phone] Social History Tobacco Use Types Packs/Day Years [...] Body Mass Index 23.27 01/14/2014 4:56 PM NEEDLE MAKER documented in this encounter Patient Instructions Patient InstructionsJoSuha calzada LPN - 08/09/2014 10:08 AM CDT [facility] Medication Refill Request Information: * Please contact your pharmacy regarding ANY request for medication refills. [facility] Prescription Fax = [phone] * Please allow 3 business days for [...] Olivas MD - 08/09/2014 10:16 AM CDT Maria E Coley is here for follow up of Carbon monoxide exposure. SUBJECTIVE: Maria E Coley is a 58-year-old female who comes in today for followup after exposure to carbon monoxide. She went to [facility] on 07/08/2014 ( unable to review records through care-everywhere) after she had been living in the lower duplex and the lady who lives in the top of the duplex noted gas leaks. [employer] came out and they determined that their [...] smelled gas in the home so contacted [employer]. She is concerned about the impact of carbon monoxide exposure on her life, short-term and long-term. She has had some change of her mental health in the past and some memory impairment. She does have restless legs syndrome at night. She also has Crohn's disease, but that has been under excellent control. She has been having right leg pain but is seeing a Macedonian retail interior designer for her symptoms and that is helping. She purchased a boost oxygen container on [employer], which is 95% oxygen and 5% air. She feels as though she cannot get a deep breath in at times, but for the most times denies any significant dyspnea. She denies any significant chest pain. She indicates that travel to [place] in March 2014 at [place] [facility] for 3 weeks probably saved her life [...] She had sent me a message through [employer]. I ordered a pulmonary consult andwallye is coming in to see me today. SH: She lives in a [facility] [address] [facility] [address] [facility] [id number]. The Lady who lives upstairs noted a gas leak and called [employer] July 08 to check the home [...] UNABLE TO FIND 3 times daily MEDICATION NAME:Macedonian herbs ??? cyanocobalamin (VITAMIN B12) 1000 MCG/ML [...] Units) by mouth daily Discontinue Vitamin D 61178 100 tablet 3 ??? acetaminophen (TYLENOL) 500 [...] Social History Narrative [place]oved to [place] from [facility]. She is living in an [...] are typed, so cognitively she appears intact. [id number] is accurate. Pupils are equal, reactive to [...] anepisode of loss of consciousness seen at [facility] on 07/08. Her carbon monoxide levels were not elevated. The stoves in the home have been replaced, the heating is being replaced and the gas been turned off from the source that they suspect for carbon monoxide. I have recommended that she meet with her patient care associate to make sure that she has her [...] a cardiology consult. She indicates that at [facility] they did an EKG and was [...] at all times. I provided her with [facility] information on carbon monoxide at time of [...] LDL - Pulmonary function test procedure; Future [phone] (home) I called her at 3:40pm on August 10, 2014 with the above results. All are excellentexcept carbon monoxide is slightly high at 2.6 normal less than 2 therefore I recommended she contact [facility] again to check the home, have her [...] athologist Signature Cholesterol 223 (H) <200 mg/dL [facility] Comment: LDL Cholesterol is the primary guide to therapy. The NCEP recommends further evaluation of: patients with cholesterol greater than 200 mg/dL if additional risk facto rs are present, cholesterol greater than 240 mg/dL, triglycerides greater than 1 50 mg/dL, or HDL less than 40 mg/dL. Triglycerides 224 (H) 0 - 150 mg/dL [facility] Comment: Fasting specimen HDL Cholesterol 85 >50 mg/dL [facility] LDL Cholesterol Calculated 93 0 - 129 mg/dL [facility] Comment: LDL Cholesterol is the primary guide to therapy: LDL-cholesterol goal in high risk patients is <100 mg/dL and in very high risk patients is <70 mg/dL. VLDL-Cholesterol 45 (H) 0 - 30 mg/dL [facility] Cholesterol/HDL Ratio 2.6 0.0 - 5.0 [facility] Specimen Anatomical Collection Method Collection Time Receive d Time (Source) Location / / Volume Laterality Blood specimen 08/09/2014 12:05 5 (specimen) PM CDT 12:07 PM CDT Edison Olivas MD LAB - BLOOD ORDERABLES Performing Organization Address City/[facility]/ZIP Code Phon e Number [address] CK total (08/09/2014 12:05 PM CDT) P athologist Signature CK Total 126 30 - 225 [facility] U/[facility] Specimen Anatomical Collection Method Collection Time Receive d Time (Source) Location / / Volume Laterality Blood specimen 08/09/2014 12:05 5 (specimen) PM CDT 12:07 PM CDT Edison Olivas MD LAB - BLOOD ORDERABLES Performing Organization Address City/[facility]/ZIP Code Phon e Number [address] (ABNORMAL) Carbon monoxide (08/09/2014 12:05 PM CDT) P athologist Signature Carbon 2.6 (H) 0 - 2 % [facility] Specimen Anatomical Collection Method Collection Time Receive d Time (Source) Location / / Volume Laterality Blood specimen 08/09/2014 12:05 5 (specimen) PM CDT 12:07 PM CDT Edison Olivas MD LAB - BLOOD ORDERABLES Performing Organization Address City/[facility]/ZIP Code Phon e Number [facility] [address] Comprehensive metabolic panel (08/09/2014 12:05 PM CDT) athologist Signature Sodium 138 133 - 144 [facility] mmol/L [facility] Potassium 4.1 3.4 - 5.3 [facility] mmol/L [facility] Chloride 104 94 - 109 [facility] mmol/L [facility] Carbon Dioxide 27 20 - 32 [facility] mmol/L [facility] Anion Gap 6 3 - 14 [facility] mmol/L [facility] Glucose 92 70 - 99 [facility] mg/dL [facility] Urea Nitrogen 10 7 - 30 [facility] mg/dL [facility] Creatinine 0.85 0.52 - [facility] 1.04 mg/dL [facility] GFR Estimate 68 >60 [facility] mL/min/1.[address] Comment: Non GFR Calc GFR Estimate If Black 82 >60 mL/min/1.7m2 [facility] Comment: GFR Calc Calcium 8.5 8.5 - 10.1 mg/dL [facility] Bilirubin Total 0.4 0.2 - 1.3 mg/dL [facility] Albumin 4.2 3.4 - 5.0 g/dL [facility] Protein Total 7.0 6.8 - 8.8 g/dL [facility] Alkaline Phosphatase 72 40 - 150 U/L [facility] ALT 45 0 - 50 U/L [facility] AST 28 0 - 45 U/L [facility] Specimen Anatomical Collection Method Collection Time Receive d Time (Source) Location / / Volume Laterality Blood specimen 08/09/2014 12:05 5 (specimen) PM CDT 12:07 PM CDT Edison Olivas MD LAB - BLOOD ORDERABLES Performing Organization Address City/State/ZIP Code Phon e Number [facility] 500 [place] [address] [facility] TSH with free T4 reflex (08/09/2014 12:05 PM CDT) athologist Signature TSH 1.11 0.40 - 4.00 [facility] mU/L [facility] Specimen Anatomical Collection Method Collection Time Receive d Time (Source) Location / / Volume Laterality Blood specimen 08/09/2014 12:05 201 5 (specimen) PM CDT 12:07 PM CDT Edison Olivas MD LAB - BLOOD ORDERABLES Performing Organization Address City/State/ZIP Code Phon e Number [facility] 500 [place] [address] [facility] CBC with platelets differential (08/09/2014 12:05 PM CDT) [facility] gist Method Time Signature WBC 7.2 4.0 - [facility] 11.0 [facility] 10e9/L [facility] RBC Count 4.99 3.8 - 5.2 [facility] 10e12/L [facility] Hemoglobin 14.9 11.7 - [facility] 15.7 g/dL [facility] Hematocrit 45.9 35.0 - [facility] 47.0 % [facility] MCV 92 78 - 100 [facility] fl [facility] MCH 29.9 26.5 - [facility] 33.0 pg [facility] MCHC 32.5 31.5 - [facility] 36.5 g/dL [facility] RDW 12.7 10.0 - [facility] 15.0 % [facility] Platelet Count 205 150 - 450 [facility] [place] 10e9/L [facility] Diff Method Automated [facility] % Neutrophils 83.1 % [facility] % Lymphocytes 11.1 % [facility] % Monocytes 4.8 % [facility] % Eosinophils 0.6 % [facility] % Basophils 0.3 % [facility] % Immature 0.1 % [facility] Granulocytes [facility] Absolute 6.0 1.6 - 8.3 [facility] Neutrophil 10e9/L [facility] Absolute 0.8 0.8 - 5.3 [facility] Lymphocytes 10e9/L [facility] Absolute 0.4 0.0 - 1.3 [facility] Monocytes 10e9/L [facility] Absolute 0.0 0.0 - 0.7 [facility] Eosinophils 10e9/L [facility] Absolute 0.0 0.0 - 0.2 [facility] Basophils 10e9/L [facility] Abs Immature 0.0 0 - 0.4 [facility] 10e9/L [facility] Specimen Anatomical Collection Method Collection Time Receive d Time (Source) Location / / Volume Laterality Blood specimen 08/09/2014 12:05 5 (specimen) PM CDT 12:07 PM CDT Edison Olivas MD LAB - BLOOD ORDERABLES Performing Organization Address City/State/ZIP Code Phon e Number [facility] 500 [place] [address] [facility] Pulmonary function test procedure (08/09/2014 11:29 AM CDT) P athologist Signature FVC-Pred 2.96 L [facility] FVC-Pre 3.59 L [facility] FVC-%Pred-Pre 121 % [facility] FEV1-Pre 2.78 L [facility] FEV1-%Pred-Pre 118 % [facility] [id number] 80 % [facility] QTY1FMR-Xbs 77 % [facility] FEFMax-Pred 6.01 L/sec [facility] FEFMax-Pre 6.23 L/sec [facility] FEFMax-%Pred-Pr 103 % [facility] e [id number] 2.19 L/sec [facility] [id number]-Qsd 2.37 L/sec [facility] MZU5939-%Pred-P 108 % [facility] re ExpTime-Pre 7.97 sec [facility] FIFMax-Pre 4.39 L/sec [facility] VC-Pred 3.02 L [facility] VC-Pre 3.72 L [facility] VC-%Pred-Pre 123 % [facility] IC-Pred 2.15 L [facility] IC-Pre 2.74 L [facility] IC-%Pred-Pre 127 % [facility] ERV-Pred 0.87 L [facility] ERV-Pre 0.98 L [facility] ERV-%Pred-Pre 112 % [facility] [id number]-Iiqd 81 % [facility] [id number]-Pep 78 % [facility] DLCOunc-Pred 20.85 ml/min/mmHg [facility] DLCOunc-Pre 21.73 ml/min/mmHg [facility] DLCOunc-%Pred-P 104 % [facility] re VA-Pre 5.15 L [facility] VA-%Pred-Pre 108 % [facility] [id number]-Spdo 77 % [facility] [id number]-Yfv 75 % [facility] Specimen (Source) Anatomical Collection Method Collection Time Re ceived Time Location / / Volume Laterality 08/09/2014 11:29 AM CDT Narrative [facility] - 03/06/2015 6:23 PM NEEDLE MAKER The FVC, FEV1, FEV1/FVC ratio and GJK13-41% are within normal limits. ??The inspiratory flow [...] hypothyroidism documented in this encounter Care Teams Veneer Glue Jointer Feedback Relationship Specialty Start Date End Date Edison Olivas MD PCP - General Family Practice 07/23/[address] [address] Sheri Casey MD MD Pulmonary Disease 07/23/[address] [place] [address] documented as of this encounter
--- OUTSIDE RECORDS SUMMARY | 2021-10-26 13:34 | XMS_ITS | Encounter Summary ---
:1955 Author Organization [place] Address [facility] [place] [address] Care Team Providers Name Role Phone Edison Tam MD Primary Care Provider Sheri Casey MD Unavailable Alphonso Billy MD Unavailable Encounter Details Date Type Department Care Team Description 08/27/2014 Orders Only [facility] Alphonso Billy mo noxide [facility] MD Char[facility] exposure Laboratory [address] [place] [address] [phone] (Wo rk) Social History Tobacco Use [...] 0.4 0 - 2 % [facility] Specimen Anatomical Collection Method Collection Time Receive d Time (Source) Location / / Volume Laterality Blood specimen 08/27/2014 10:49 5 (specimen) AM CDT 10:51 AM CDT Edison Tam MD LAB - BLOOD ORDERABLES Performing Organization Address City/State/ZIP Code Phon e Number [facility] [address] [place] [address] [facility] documented in this encounter Visit Diagnoses Diagnosis Carbon monoxide exposure Contact with and (suspected) exposure to other potentially hazardous substances documented in this encounter Care Teams Cso Relationship Specialty Start Date End Date Edison Tam MD PCP - General Family Practice 07/23/14 909 [facility] 4 [place] [address] Sheri Casey MD MD Pulmonary Disease 07/23/14 [address] [facility] 276 [place] [address] Alphonso Billy MD MD Cardiology 08/12/14 12/26/17 420 [place] [address] documented as of this encounter
--- OUTSIDE RECORDS SUMMARY | 2021-10-26 13:34 | XMS_ITS | Encounter Summary ---
:1955 Author Organization [place] Address [address] [place] [address] Care Team Providers Name Role Phone Edison Tam MD Primary Care Provider Reason for Visit Reason Comments Wrist Pain Patient here for wrist pain after a fall Encounter Details Date Type Department Care Team Description 01/25/2014 Office Visit [facility], Primary Sit, MD Dari Pain in joint, Care Center [address] forearm, right 3rd Floor, Clinic 3A [facility] 741 (Primary Dx) [place] Building [address] [place] [address] [facility] 88 (Work) [place] [address] Social History Tobacco Use Types [...] Comments Blood Pressure 100/66 01/25/2014 2:27 PM RECOVERY UNIT OPERATOR Pulse 86 01/25/2014 2:27 PM RECOVERY UNIT OPERATOR Temperature - - Respiratory Rate - - Oxygen Saturation - - Inhaled Oxygen Concentration - - Weight - - Height - - Body Mass Index - - documented in this encounter Patient Instructions Patient InstructionsMakeda Parker LPN - 01/25/2014 2:27 PM CST Primary Care Center Medication Refill Request Information: * Please contact your pharmacy regarding ANY request for medication refills. [facility] Prescription Fax = [phone] * Please allow 3 business days for [...] the results and signed off on them. VERY UNIT OPERATOR documented in this encounter Progress Notes Dari [...] was advised to call. Dari Wynn MD VERY UNIT OPERATOR documented in this encounter Nursing Notes Makeda Parker LPN - 01/25/2014 2:27 PM CST Chief Complaint Patient presents with ??? Wrist Pain Patient here for wrist pain after a fall Makeda Parker LPN at 2:27 PM on 01/25/2014. VERY UNIT OPERATOR documented in this encounter Plan of Treatment Not on filedocumented as of this encounter Results XR Wrist Right G/E 3 Views (01/25/2014 2:55 PM RECOVERY UNIT OPERATOR) Anatomical Region Laterality Modality Right Wrist Right Computed Radiography Specimen (Source) Anatomical Location Collection Method / Collectio n Time Received Time / Laterality Volume Impressions 01/25/2014 6:07 PM RECOVERY UNIT OPERATOR Impression: Almost healed transverse fracture of the distal radius with stable alignment. 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 I have personally reviewed the examinati on and initial interpretation and I agree with the findings. SIOMARA LUNA MD Narrative 01/25/2014 6:07 PM RECOVERY UNIT OPERATOR XR WRIST RT G/E 3 VW, [...] right documented in this encounter Care Teams Training Development Manager Relationship Specialty Start Date End Date Edison Tam MD PCP - General Family Practice 09/21/11 07/22/14 909 [facility] 4 [place] [address] documented as of this encounter
--- OUTSIDE RECORDS SUMMARY | 2021-10-26 13:34 | XMS_ITS | Encounter Summary ---
:1955 Author Organization [place] Address [facility] [place] [address] Care Team Providers Name Role Phone Edison Tam MD Primary Care Provider Reason for Visit Reason Comments Numbness R leg numbness. Encounter Details Date Type Department Care Team Description 01/14/2014 Office Visit [facility] Vijaya, Back pain (Primary Dx); [facility] Sid Bunch, Lumbar stenosis with neurogenic claudication; Center Lumbar radicular pain 1st Floor, [address] [facility]2 [place] [address] [place] [address] [phone] Social History Tobacco Use Types Packs/Day Years [...] 58.1 kg (128 lb) 01/14/2014 4:56 PM CLINICAL SPECIALIST VASCULAR Height 156.2 cm (5' 1.5) 01/14/2014 4:56 PM CLINICAL SPECIALIST VASCULAR Body Mass Index 23.79 01/14/2014 4:56 PM CLINICAL SPECIALIST VASCULAR documented in this encounter Progress Notes Sid [...] spent in counseling and coordination of care. ICAL SPECIALIST VASCULAR documented in this encounter Nursing Notes Roz Tineo RN - 01/14/2014 6:03 PM CST Teaching Flowsheet Relevant Diagnosis: LUMBAR STENOSIS AND LEG PAIN Teaching Topic: LUMBAR MRI AT [facility] Person(s) involved in teaching: Patient Motivation Level: Asks Questions: Yes Eager to Learn: Yes Cooperative: Yes Receptive (willing/able to accept information): Yes Any cultural factors/presybeterian beliefs that may influence understanding or compliance? [...] INSTRUCTIONS Time spent with patient: 5 MIN. ICAL SPECIALIST VASCULAR Digna Crystal, CIRCLE CUTTING SAW OPERATOR - 01/14/2014 4:58 PM CST Reason For [...] the worst health you can imagine): 49 ICAL SPECIALIST VASCULAR documented in this encounter Plan of Treatment Not on filedocumented as of this encounter Results XR Lumbar Spine 2-3 Views* (01/14/2014 5:35 PM CLINICAL SPECIALIST VASCULAR) Anatomical Region Laterality Modality T-spine, L-spine, Abdomen/Pelvis Compute d Radiography Specimen (Source) Anatomical Location Collection Method / Collectio n Time Received Time / Laterality Volume Impressions 01/15/2014 12:18 AM CLINICAL SPECIALIST VASCULAR IMPRESSION: 1. No acute bone abnormality of the lumb ar spine. No unstable listhesis is seen. KRYSTINA CANCINO MD Narrative 01/15/2014 12:18 AM CLINICAL SPECIALIST VASCULAR EXAMINATION: Lumbar spine flexion/extension DATE: 01/14/2014 HISTORY: [...] unspecified documented in this encounter Care Teams Cadet Deck Relationship Specialty Start Date End Date Edison Tam MD PCP - General Family Practice 09/21/11 07/22/14 909 [facility] 4 [place] [address] documented as of this encounter
--- OUTSIDE RECORDS SUMMARY | 2021-10-26 13:34 | XMS_ITS | Encounter Summary ---
:1955 Author Organization [place] Address [address] [place] [address] Care Team Providers Name Role Phone Edison Tam MD Primary Care Provider Reason for Visit Reason Onset Date Comments Previsit 10/26/2013 Encounter Details Date Type Department Care Team Description 10/26/2013 [facility]phone [facility] And Charan guadarrama MD Previsit FOR PROSTATE AND UROLOGIC [address] [facility], [place] [phone] [place] [address] 4TH FLOOR, [address] 420 [facility] 394 [place], [place] [phone] Social History Tobacco Use Types Packs/Day [...] on filedocumented in this encounter Care Teams Ring Barker Operator Relationship Specialty Start Date End Date Edison Tam MD PCP - General Family Practice 09/21/11 07/22/14 909 [facility] 4 [place] [address] documented as of this encounter
--- OUTSIDE RECORDS SUMMARY | 2021-10-26 13:34 | XMS_ITS | Encounter Summary ---
:1955 Author Organization [place] Address [address] [place] [address]. [place] [address] Care Team Providers Name Role Phone Edison Tam MD Primary Care Provider Sheri Casey MD Unavailable Alphonso Billy MD Unavailable Encounter Details Date Type Department Care Team Description 08/12/2014 Medical Correspondence [facility], [facility]- Health Info Mgmt Non-Provider PORTABLE O2 , Srvcs 08/12/[address] [place] [phone] Social History Tobacco Use Types Packs/Day [...] on filedocumented in this encounter Care Teams Aerospace Project Engineer Relationship Specialty Start Date End Date Edison Tam MD PCP - General Family Practice 07/23/[address] [facility] 4 [place] [address] Sheri Casey MD MD Pulmonary Disease 07/23/14 420 [facility] 276 [place] [address] Alphonso Billy MD MD Cardiology 08/12/14 12/26/[address] [place] [address] documented as of this encounter
--- OUTSIDE RECORDS SUMMARY | 2021-10-26 13:34 | XMS_ITS | Encounter Summary ---
:1955 Author Organization [place] Address [address] [place] [address] Care Team Providers Name Role Phone Edison Tam MD Primary Care Provider Reason for Visit Reason Onset Date Comments Refill Request 05/10/2014 Encounter Details Date Type Department Care Team Description 05/10/2014 Refill Medicine GI - 1E Charan Salazar MD Refill Request [address] [address] 1st Floor, Clinic [address] [place] [address] [place] [phone] Social History Tobacco Use Types Packs/Day [...] hypothyroidism documented in this encounter Care Teams Consulting Sales Executive Relationship Specialty Start Date End Date Edison Tam MD PCP - General Family Practice 09/21/11 07/22/[address] [address] documented as of this encounter
--- OUTSIDE RECORDS SUMMARY | 2021-10-26 13:34 | XMS_ITS | Encounter Summary ---
:1955 Author Organization [place] Address [address] [place] [address] Care Team Providers Name Role Phone Edison Tam MD Primary Care Provider Sheri Casey MD Unavailable Alphonso Billy MD Unavailable Reason for Visit Reason Onset Date Comments Orders 09/24/2014 [facility] Encounter Details Date Type Department Care Team Description 09/24/2014 Telephone [facility], Primary Edison Tam, Orders ([facility] 3rd Floor, Clinic [address] [place] [address] [place] [address] [place] [phone] Social History Tobacco Use Types Packs/Day [...] on filedocumented in this encounter Care Teams Family Law Specialist Relationship Specialty Start Date End Date Edison Tam MD PCP - General Family Practice 07/23/14 909 [facility] 4 [place], [place] [phone] Sheri Casey MD MD Pulmonary Disease 07/23/14 420 [facility] 276 [place], [place] [phone] Alphonso Billy MD MD Cardiology 08/12/14 12/26/17 420 [place], [place] [address] documented as of this encounter
--- OUTSIDE RECORDS SUMMARY | 2021-10-26 13:34 | XMS_ITS | Encounter Summary ---
:1955 Author Organization [facility] Address [address] [place] [address] Care Team Providers Name Role Phone Edison Tam MD Primary Care Provider Sheri Casey MD Unavailable Encounter Details Date Type Department Care Team Description 07/26/2014 Orders Only [facility] Sheri Casey SOB (s hortness of Science MD Laisha breath) (Primary Dx) 3rd Floor, Clinic [address]A [address] [phone] (Wo rk) [address] [phone] Social History Tobacco Use Types Packs/Day Years Used Date Former Smoker 1 18 Smokeless Tobacco: Former User Q uit: 09/20/1991 Alcohol Use Standard Drinks/Week Comments No 0 (1 standard drink = 0.6 oz pure alcoho l) Sex Assigned at Date Recorded Not on file documented as of this encounter Plan of Treatment Not on filedocumented as of this encounter Results X-ray Chest 2 vws* [...] of breath) - Primary Shortness of breath SOB (shortness of breath) Shortness of breath documented in this encounter Care Teams Project Scientist Relationship Specialty Start Date End Date Edison Tam MD PCP - General Family Practice 07/23/14 909 [facility] 4 [place] [address] Sheri Casey MD MD Pulmonary Disease 07/23/14 [address] [facility] 276 [place], [place] [address] documented as of this encounter
--- OUTSIDE RECORDS SUMMARY | 2021-10-26 13:35 | XMS_ITS | Encounter Summary ---
:1955 Author Organization [place] Address [address] [place] [address] Care Team Providers Name Role Phone Edison Tam MD Primary Care Provider Reason for Visit Reason Onset Date Comments Imm/Inj 05/25/2013 Shingles vaccine Encounter Details Date Type Department Care Team Description 05/25/2013 Telephone [facility], Primary Edison Tam Imm/Inj ([facility] MD Marcia vaccine) 3rd Floor, Clinic [address] [place] [id number] [place] [address] [place], [place] (Work) [address] [phone] Social History Tobacco Use Types Packs/Day Years [...] until 06/08/13. She should check with her microphone operator. Best wishes, Edison Tam Telephone Encounter - [...] waiting atthe pharmacy. Call back number is [phone]. AG documented in this encounter Plan of Treatment Not on filedocumented as of this encounter Visit Diagnoses Not on filedocumented in this encounter Care Teams Siding Coreboard Inspector Relationship Specialty Start Date End Date Edison Tam MD PCP - General Family Practice 09/21/11 07/22/14 030 [facility] 4 [place] [address] documented as of this encounter
--- OUTSIDE RECORDS SUMMARY | 2021-10-26 13:35 | XMS_ITS | Encounter Summary ---
:1955 Author Organization [place] Address [address] [place] [address] Care Team Providers Name Role Phone Edison Tam MD Primary Care Provider Encounter Details Date Type Department Care Team Description 06/18/2013 Therapy Visit [facility], Finger stiffness, left (Primary Dx); Orthopaedics Hand OT Mechanical problems with limbs; [facility] Pain in limb; [address] [place] [address] THERAPY CTR Other postprocedural status; STREET [address] [place] [address] Finger laceration, subsequent encounter [address] [place] [address] [phone] Social History Tobacco Use Types Packs/Day Years [...] 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 There is still some numbness/tinglingin the tip, but there is no longer pain. Functional changes noted by patient: Improvement to self care tasks, recreational activities, beader tender - patient is able to play harp, [...] 0/67 0/92 0/107 0/76 0/90 0/110 0/76 Tyre Builder and Pinch Strength (pounds) 05/28 Date: 05/28 06/18 Right Side Left Left 53 Tyre Builder # 1 # 2 # 3 Average [...] - Flex, DIP joint - Flex Strength: eyeglass lens generator and pinch Edema: Circumferential finger edema has [...] long handled sponge for bathing and jar mapping engineer that attaches to base of cabinet for one handed opening Edema management - instruction in coban wrapping, elevation, ice Scar management - scar massage, scar pad for night wear Desensitization with sensory stick Gentle eyeglass lens generator and pinch strengthening with foam wedge Start [...] Name Priority Date/Time Associated Diagnosis Comme nts [facility] MANUAL THER Routine 06/18/2013 1:14 PM Finger stiffn ess, left TECH,1+REGIONS,EA 15 CDT Pain in jackson b MIN Other postprocedural status Finger laceration, subsequent encounter [facility] THERAPEUTIC Routine 06/18/2013 1:14 PM Finger stiffn ess, left EXERCISES CDT Pain in limb Other postprocedural status Finger laceration, subsequent encounter documented in this encounter Visit Diagnoses Diagnosis Finger stiffness, left - Primary Mechanical problems with limbs Pain in limb Other postprocedural status(V45.89) Other postprocedural status Finger laceration, subsequent encounter documented in this encounter Care Teams Tube Bender Relationship Specialty Start Date End Date Edison Tam MD PCP - General Family Practice 09/21/11 07/22/14 909 [facility] 4 [place] [address] documented as of this encounter
--- OUTSIDE RECORDS SUMMARY | 2021-10-26 13:35 | XMS_ITS | Encounter Summary ---
:1955 Author Organization [place] Address [address] [place] [address] Care Team Providers Name Role Phone Edison Tam MD Primary Care Provider Reason for Visit Reason Onset Date Comments Refill Request 08/28/2013 levothyroxine Encounter Details Date Type Department Care Team Description 08/28/2013 Refill [facility], Primary Edison Tam Refill Request Care Center MD Marcia (levothyroxine) 3rd Floor, Clinic 3A [id number] [place] [address] [place] [address] Social History Tobacco Use Types [...] thyroiditis documented in this encounter Care Teams Health Club Manager Relationship Specialty Start Date End Date Edison Tam MD PCP - General Family Practice 09/21/11 07/22/[address] [place] [address] [id number] documented as of this encounter
--- OUTSIDE RECORDS SUMMARY | 2021-10-26 13:35 | XMS_ITS | Encounter Summary ---
:1955 Author Organization [place] Address [address] [place] [address] Care Team Providers Name Role Phone Edison Tam MD Primary Care Provider Reason for Visit Reason Onset Date Comments Refill Request 05/18/2013 Encounter Details Date Type Department Care Team Description 05/18/2013 Refill Medicine GI - 1E Charan Salazar MD Refill Request [id number] [place] [address] Floor, [facility] [address] [place] [address] [place] [phone] Social History Tobacco Use Types Packs/Day [...] CDT Received refill request from [facility] in [place] for Prednisone (7mg daily). Will set up [...] unspecified documented in this encounter Care Teams Gray Tender Relationship Specialty Start Date End Date Edison Tam MD PCP - General Family Practice 09/21/11 07/22/[address] [address] documented as of this encounter
--- OUTSIDE RECORDS SUMMARY | 2021-10-26 13:35 | XMS_ITS | Encounter Summary ---
:1955 Author Organization [place] Address [facility] [place] [address] Care Team Providers Name Role Phone Edison Tam MD Primary Care Provider Encounter Details Date Type Department Care Team Description 05/28/2013 Orders Only [facility] Back pain (Primary [facility] MD Alivia Dx) [address] 1st Floor, [address] [address] [place], [place] [phone] [address] (Work) [phone] Social History Tobacco Use Types Packs/Day Years [...] unspecified documented in this encounter Care Teams Special Education Instructor Relationship Specialty Start Date End Date Edison Tam MD PCP - General Family Practice 09/21/11 07/22/14 909 [facility] 4 [place], [place] [address] documented as of this encounter
--- OUTSIDE RECORDS SUMMARY | 2021-10-26 13:35 | XMS_ITS | Encounter Summary ---
:1955 Author Organization [facility] Address [address] [place] [address] Care Team Providers Name Role Phone Edison Tam MD Primary Care Provider Reason for Referral - Closed Specialty Diagnoses / Procedures Referred By Contact Refer red To Contact Diagnoses Inflammatory bowel disease (Crohn's disease) (H) Flu-like symptoms Edison Tam MD [address] [place] [address] [place] [address] [place], [place] [address] Referral ID Status Reason Start Date Expiration Date Visits Requ ested Visits Authorized [id number] Closed 08/31/2013 02/27/2014 1 1 Reason for Visit Reason Comments Recheck Medication Patient is here to follow up with medication Encounter Details Date Type Department Care Team Description 08/31/2013 Office Visit [facility], Primary Edison Tam (Primary Dx); Anthony Kennedy MD Connective tissue disorder (H); 3rd Floor, Clinic 3A 909 [facility] Inflammatory bowel disease ( Crohn's disease) (H); [facility] 4 Flu-like symptoms; Building [address] [place], [place] Routine general medical exam ination at a health care facility [address] [place] [address] [place] [address] [facility] 88 [place], [place] (Work) [phone] Social History Tobacco Use [...] pharmacy regarding ANY request for medication refills. [facility] Prescription Fax = [phone] * Please allow 3 business days for [...] NEG Ketones Urine Negative NEG mg/dL Specific [place] Urine 1.015 1.003 - 1.035 Blood Urine [...] Name Type Priority Associated Diagnoses Order S [facility] GASTROENTEROLOGY ADULT Referral Routine Inflammatory bowel Ordered: [...] Component Value Ref Test Analysis Performed At [facility] Range Method Time Signature Lyme Confirm Negative [...] patterns are reported as negative. Performed by [employer], [address] [place] [address] [email or web address], Grant Akins MD, Lab. Director Specimen Anatomical Collection Method Collection Time Receive d Time (Source) Location / / Volume Laterality 08/31/2013 5:07 PM 4 5:08 CDT PM CDT Edison Tam MD LAB - BLOOD ORDERABLES Performing Organization Address City/State/ZIP Code Phon e Number [facility] [address] [place], [place] [phone] [place] [address] LABS TSH with free T4 reflex (08/31/2013 5:07 PM CDT) P athologist Signature TSH 0.65 0.4 - 5.0 [facility] mU/L [place] LABS Specimen Anatomical Collection Method Collection Time Receive d Time (Source) Location / / Volume Laterality Blood specimen 08/31/2013 5:07 PM 014 5:08 (specimen) CDT PM CDT Edison Tam MD LAB - BLOOD ORDERABLES Performing Organization Address City/[facility]/ZIP Code Phon e Number [facility] [address] LABS Hepatitis C antibody (08/31/2013 5:07 PM CDT) [facility] gist Method Time Signature Hepatitis C Negative NEG [facility] Antibody MICROBIOLOGY Specimen Anatomical Collection Method Collection Time Receive d Time (Source) Location / / Volume Laterality Blood specimen 08/31/2013 5:07 PM 014 5:08 (specimen) CDT PM CDT Edison Tam MD LAB - BLOOD ORDERABLES Performing Organization Address City/[facility]/ZIP Code Phon e Number [address] MICROBIOLOGY (ABNORMAL) Lyme IgG and IgM screen (08/31/2013 5:07 PM CDT) Component Value Ref Test Analysis Performed At [facility] Range Method Time Signature Specimen Serum [facility] LABS Lyme Screen IgG Equivocal NEG [facility] and IgM Test value: >or= 0.75 to <1 .00 Interpretation: Equivocal. Specimen submitted to MICROBIOLOGY [place] ([facility] Pathologists) for IgG and IgM Western Blot assays because of equivocal result. (A) Specimen Anatomical Collection Method Collection Time Receive d Time (Source) Location / / Volume Laterality Blood specimen 08/31/2013 5:07 PM 014 5:08 (specimen) CDT PM CDT Edison Tam MD LAB - BLOOD ORDERABLES Performing Organization Address City/State/ZIP Code Phon e Number [facility] [address] LABS [facility] MICROBIOLOGY Iron and iron binding capacity (08/31/2013 5:07 PM CDT) P athologist Signature Iron 98 35 - 180 [facility] ug/dL [place] LABS Iron Binding 329 240 - 430 [facility] Cap ug/dL CAMPUS LABS Iron Saturation 30 15 - 46 % [facility] Y Index CAMPUS LABS Specimen Anatomical Collection Method Collection Time Receive d Time (Source) Location / / Volume Laterality Blood specimen 08/31/2013 5:07 PM 014 5:08 (specimen) CDT PM CDT Edison Tam MD LAB - BLOOD ORDERABLES Performing Organization Address City/[facility]/ZIP Code Phon e Number [facility] [address] LABS CRP inflammation (08/31/2013 5:07 PM CDT) Analysis Performed At Patho logist Time Signature CRP Inflammation <5.0 0.0 - 8.0 [facility] mg/L [facility] LABS Specimen Anatomical Collection Method Collection Time Receive d Time (Source) Location / / Volume Laterality Blood specimen 08/31/2013 5:07 PM 014 5:08 (specimen) CDT PM CDT Edison Tam MD LAB - BLOOD ORDERABLES Performing Organization Address City/State/ZIP Code Phon e Number [facility] [address] LABS CBC with platelets differential (08/31/2013 5:07 PM CDT) Patholo gist Method Time Signature WBC 6.6 4.0 - [facility] 11.0 [place] 10e9/L [place] LABS RBC Count 4.86 3.8 - 5.2 [facility] 10e12/L [facility] LABS Hemoglobin 14.6 11.7 - [facility] 15.7 g/dL [facility] LABS Hematocrit 44.4 35.0 - [facility] 47.0 % [facility] LABS MCV 91 78 - 100 [facility] fl [facility] LABS MCH 30.0 26.5 - [facility] 33.0 pg [facility] LABS MCHC 32.9 31.5 - [facility] 36.5 g/dL [facility] LABS RDW 12.5 10.0 - [facility] 15.0 % [facility] Platelet Count 232 150 - 450 [facility] 10e9/L [facility] LABS Diff Method Automated [facility] Method [facility] LABS % Neutrophils 70.1 % [facility] LABS % Lymphocytes 18.3 % [facility] % Monocytes 10.1 % [facility] LABS % Eosinophils 0.8 % [facility] [place] [facility] % Basophils 0.5 % [facility] % Immature 0.2 % [facility] Granulocytes [facility] LABS Absolute 4.6 1.6 - 8.3 [facility] Neutrophil 10e9/L [facility] LABS Absolute 1.2 0.8 - 5.3 [facility] Lymphocytes 10e9/L [facility] LABS Absolute 0.7 0.0 - 1.3 [facility] Monocytes 10e9/L [facility] LABS Absolute 0.1 0.0 - 0.7 [facility] Eosinophils 10e9/L [facility] LABS Absolute 0.0 0.0 - 0.2 [facility] Basophils 10e9/L [facility] LABS Abs Immature 0.0 0 - 0.4 [facility] Granulocytes 10e9/L [facility] LABS Specimen Anatomical Collection Method Collection Time Receive d Time (Source) Location / / Volume Laterality Blood specimen 08/31/2013 5:07 PM 014 5:08 (specimen) CDT PM CDT Edison Tam MD LAB - BLOOD ORDERABLES Performing Organization Address City/State/ZIP Code Phon e Number [id number] [place] [address] LABS Comprehensive metabolic panel (08/31/2013 5:07 PM CDT) P athologist Signature Sodium 140 133 - 144 [facility] mmol/L [facility] LABS Potassium 4.2 3.4 - 5.3 [facility] mmol/L [facility] LABS Chloride 105 94 - 109 [facility] mmol/L [facility] LABS Carbon Dioxide 24 20 - 32 [facility] mmol/L [facility] LABS Anion Gap 12 6 - 17 [facility] mmol/L [facility] LABS Glucose 81 60 - 99 [facility] mg/dL [facility] LABS Urea Nitrogen 15 7 - 30 [facility] mg/dL [facility] LABS Creatinine 0.84 0.52 - [facility] 1.04 mg/dL [facility] LABS GFR Estimate 70 >60 [facility] mL/min/1.[address] LABS GFR Estimate If 84 >60 [facility] Black mL/min/1.[address] LABS Calcium 9.1 8.5 - 10.4 [facility] mg/dL [facility] Bilirubin Total 0.2 0.2 - 1.3 [facility] mg/dL [facility] Albumin 4.3 3.3 - 4.9 [facility] g/dL [facility] LABS Protein Total 7.2 6.8 - 8.8 [facility] g/dL [facility] Alkaline 86 40 - 150 [facility] Phosphatase U/L [facility] [place] [facility] ALT 29 0 - 50 U/L [facility] AST 34 0 - 45 U/L [facility] [place] [facility] Specimen Anatomical Collection Method Collection Time Receive d Time (Source) Location / / Volume Laterality Blood specimen 08/31/2013 5:07 PM 014 5:08 (specimen) CDT PM CDT Edison Tam MD LAB - BLOOD ORDERABLES Performing Organization Address City/State/ZIP Code Phon e Number [facility] [address] [place] [address] [facility] LABS (ABNORMAL) Routine UA with micro reflex to culture (08/31/2013 4:55 PM CDT) [facility] gist Method Time Signature Color Urine Yellow [facility] LABS Appearance Urine Clear [facility] LABS Glucose Urine Negative NEG mg/dL [facility] [place] [facility] Bilirubin Urine Negative NEG [facility] LABS Ketones Urine Negative NEG mg/dL [facility] LABS Specific [place] 1.015 1.003 - [facility] Urine 1.035 [facility] [place] [facility] Blood Urine Negative NEG [facility] LABS pH Urine 5.0 5.0 - 7.0 [facility] pH [facility] LABS Protein Albumin Negative NEG mg/dL [facility] Urine [facility] Urobilinogen Normal 0.0 - 2.0 [facility] mg/dL mg/dL [facility] [place] [facility] Nitrite Urine Negative NEG [facility] [place] [facility] Leukocyte Small (A) NEG [facility] Esterase Urine [facility] Source Midstream [facility] Urine [facility] LABS WBC Urine 7 (H) 0 - 2 [facility] /HPF [facility] RBC Urine 3 (H) 0 - 2 [facility] /HPF [facility] Mucous Urine Present (A) NEG /LPF [facility] LABS Specimen Anatomical Collection Method Collection Time Receive d Time (Source) Location / / Volume Laterality Urine specimen 08/31/2013 4:55 PM 014 4:57 (specimen) CDT PM CDT Edison Tam MD LAB - URINE ORDERABLES Performing Organization Address City/State/ZIP Code Phon e Number [address] [address] [facility] LABS documented in this encounter Visit Diagnoses Diagnosis Fatigue - Primary Other malaise and fatigue Connective tissue disorder (H) Unspecified diffuse connective tissue di sease Inflammatory bowel disease (Crohn's dise ase) (H) Regional enteritis of unspecified site Flu-like symptoms Influenza with other respiratory manifes tations Routine general medical examination at a health care facility documented in this encounter Care Teams Airplane Pilot Supervisor Relationship Specialty Start Date End Date Edison Tam MD PCP - General Family Practice 09/21/11 07/22/[address] [address] documented as of this encounter
--- OUTSIDE RECORDS SUMMARY | 2021-10-26 13:35 | XMS_ITS | Encounter Summary ---
:1955 Author Organization [place] Address [address] [place] [address] Care Team Providers Name Role Phone Edison Tam MD Primary Care Provider Reason for Visit Reason Onset Date Comments Refill Request 08/28/2013 propranolol Encounter Details Date Type Department Care Team Description 08/28/2013 Refill [facility], Primary Edison Tam Refill Request Care Center MD Marcia (propranolol) 3rd Floor, Clinic 3A [address] [place] [phone] [place] [address] [place] [address] Social History Tobacco Use Types [...] hypertension documented in this encounter Care Teams Mailroom Supervisor Relationship Specialty Start Date End Date Edison Tam MD PCP - General Family Practice 09/21/11 07/22/[address] [address] documented as of this encounter
--- OUTSIDE RECORDS SUMMARY | 2021-10-26 13:35 | XMS_ITS | Encounter Summary ---
:1955 Author Organization [facility] Address [address] [place] [address] Care Team Providers Name Role Phone Edison Tam MD Primary Care Provider Encounter Details Date Type Department Care Team Description 05/28/2013 Therapy Visit [facility], Finger stiffness, left (Primary Dx); Orthopaedics Hand OT Mechanical problems with limbs; [facility] Pain in limb; [address] [place] [address] THERAPY CTR Other postprocedural status; [address]RE[address] [place] [address] Finger laceration, subsequent encounter [address] [place] [address] [phone] Social History Tobacco Use Types Packs/Day Years [...] Deficits as reported by patient: bathing, dressing, vp home health, driving, sports/recreation, pushing/pulling, lifting/carrying, work, sleeping, reaching [...] 5/31 0/91 0/102 0/67 0/92 0/107 0/76 Decorating Kiln Operator and Pinch Strength (pounds) 05/28 Date: 05/28 Right Side Left 53 Decorating Kiln Operator # 1 # 2 # 3 [...] - Flex, DIP joint - Flex Strength: lpn home health and pinch Edema: Circumferential edema has decreased [...] long handled sponge for bathing and jar puller through that attaches to base of cabinet for one handed opening Edema management - instruction in coban wrapping, elevation, ice Scar management - scar massage, scar pad for night wear Desensitization with sensory stick Gentle lpn home health and pinch strengthening with foam wedge Start [...] Name Priority Date/Time Associated Diagnosis Comme nts [facility] MANUAL THER Routine 05/28/2013 11:56 AM Finger stiff ness, left TECH,1+REGIONS,EA 15 CDT Pain in jackson b MIN Other postprocedural status Finger laceration, subsequent encounter [facility] THERAPEUTIC Routine 05/28/2013 11:56 AM Finger stiff ness, left EXERCISES CDT Pain in limb Other postprocedural status Finger laceration, subsequent encounter documented in this encounter Visit Diagnoses Diagnosis Finger stiffness, left - Primary Mechanical problems with limbs Pain in limb Other postprocedural status(V45.89) Other postprocedural status Finger laceration, subsequent encounter documented in this encounter Care Teams Automotive Finance Manager Relationship Specialty Start Date End Date Edison Tam MD PCP - General Family Practice 09/21/11 07/22/14 909 [facility] 4 [place], [place] [id number] documented as of this encounter
--- OUTSIDE RECORDS SUMMARY | 2021-10-26 13:35 | XMS_ITS | Encounter Summary ---
:1955 Author Organization [place] Address [address] [place] [address] Care Team Providers Name Role Phone Edison Tam MD Primary Care Provider Encounter Details Date Type Department Care Team Description 05/20/2013 Radiant Appointment [facility] (low back pain) (Primary Dx); Center Sacroiliac joint pain [facility] 1st Floor, Clinic 1D [place], [place] [address] Social History Tobacco Use Types [...] dose documented in this encounter Care Teams Technician Trainee Relationship Specialty Start Date End Date Edison Tam MD PCP - General Family Practice 09/21/11 07/22/14 909 [facility] 4 [place] [address] documented as of this encounter
--- OUTSIDE RECORDS SUMMARY | 2021-10-26 13:35 | XMS_ITS | Encounter Summary ---
:1955 Author Organization [place] Address [address] [place] [address] Care Team Providers Name Role Phone Edison Tam MD Primary Care Provider Encounter Details Date Type Department Care Team Description 05/28/2013 Radiant Appointment [facility] Sid Lilly Back pain RACHNA DONA Bunch MD BUILDING [address] [place] [address] R2 1ST FLOOR, CLINIC [address] [phone] (Wo rk) [address] [phone] Social History Tobacco Use Types Packs/Day Years [...] there is not extensive endplate remodeling. KRYSTINA CANICNO MD Narrative 05/28/2013 1:19 PM CDT EXAMINATION: [...] unspecified documented in this encounter Care Teams Buffing Turner And Counter Relationship Specialty Start Date End Date Edison Tam MD PCP - General Family Practice 09/21/11 07/22/14 909 [facility] 4 [place] [address] documented as of this encounter
--- OUTSIDE RECORDS SUMMARY | 2021-10-26 13:35 | XMS_ITS | Encounter Summary ---
:1955 Author Organization [place] Address [address] [place] [address] Care Team Providers Name Role Phone Edison Olivas MD Primary Care Provider Reason for Visit Reason Comments RECHECK F/U OSTEOPOROSIS Encounter Details Date Type Department Care Team Description 09/07/2013 Office Visit Diabetes and Laisha Moraes Senile oste oporosis (Primary Dx); Endocrine AMD History of corticosteroid therapy 6th Floor, Clinic [address] [place] [address] [phone] [facility] (Work) [place], [place] [phone] [address] (Fax) [phone] Social History Tobacco Use Types Packs/Day Years [...] she has been to DM education at [employer] . She didn't bring her meter today. [...] She then got IV Reclast (delivered in [place]), stopped about 2 years ago when her [...] Units) by mouth daily Discontinue Vitamin D 89872 100 tablet 3 ??? acetaminophen (TYLENOL) 500 [...] Use: No Reading a book to learn MagTag with her cats. Physical Exam BP 101/64 [...] rapy documented in this encounter Care Teams Medical Physicist Relationship Specialty Start Date End Date Edison Olivas MD PCP - General Family Practice 09/21/11 07/22/14 909 [facility] 4 [place] [address] documented as of this encounter
--- OUTSIDE RECORDS SUMMARY | 2021-10-26 13:35 | XMS_ITS | Encounter Summary ---
:1955 Author Organization [place] Address [address] [place] [address] Care Team Providers Name Role Phone Edison Tam MD Primary Care Provider Encounter Details Date Type Department Care Team Description 05/15/2013 Therapy Visit [facility], Finger stiffness, left (Primary Dx); Orthopaedics Hand OT Mechanical problems with limbs; [facility] Pain in limb; [address] [place] [address] THERAPY CTR Other postprocedural status; STRE[address] [place] [address] Finger laceration, subsequent encounter [address] [place] [address] [phone] Social History Tobacco Use Types Packs/Day Years [...] Deficits as reported by patient: bathing, dressing, associate spa director, driving, sports/recreation, pushing/pulling, lifting/carrying, work, sleeping, reaching [...] Care Tasks (dressing, eating, bathing, hygiene/toileting) and Supervisor [facility] Response to previous treatment: good Patient has [...] long handled sponge for bathing and jar well head pumper that attaches to base of cabinet for one handed opening Edema management - instruction in coban wrapping, elevation, ice Scar management - scar massage, scar pad for night wear Desensitization with sensory stick Next visit: Fluidotherapy, ROM A/AAROM Scar massage Progress to gentle sample card maker/pinch strengthening Discharge Plan: Achieve all LTG. Independent in home treatment program. Reach maximal therapeutic benefit. Please see daily flow sheet for treatment and 1:1 time provided today. CONSERVATOR documented in this encounter Plan of Treatment Not on filedocumented as of this encounter Procedures Procedure Name Priority Date/Time Associated Diagnosis Comme [facility] Z MANUAL THER Routine 05/15/2013 11:24 AM Finger stiff ness, left TECH,1+REGIONS,EA 15 ART CONSERVATOR Pain in jackson b MIN Other postprocedural status Finger laceration, subsequent encounter [facility] SELF CARE MNGMENT Routine 05/15/2013 11:24 AM Finger stiffness, left TRAINING ART CONSERVATOR Pain in limb Other postprocedural status Finger laceration, subsequent encounter [facility] THERAPEUTIC Routine 05/15/2013 11:24 AM Finger stiff ness, left EXERCISES ART CONSERVATOR Pain in limb Other postprocedural status Finger laceration, subsequent encounter documented in this encounter Visit Diagnoses Diagnosis Finger stiffness, left - Primary Mechanical problems with limbs Pain in limb Other postprocedural status(V45.89) Other postprocedural status Finger laceration, subsequent encounter documented in this encounter Care Teams Infant Childcare Provider Relationship Specialty Start Date End Date Edison Tam MD PCP - General Family Practice 09/21/11 07/22/[address] [address] documented as of this encounter
--- OUTSIDE RECORDS SUMMARY | 2021-10-26 13:35 | XMS_ITS | Encounter Summary ---
:1955 Author Organization [place] Address [address] [facility] [place] [address] Care Team Providers Name Role Phone Edison Tam MD Primary Care Provider Reason for Visit Reason Comments RECHECK Left index finger digital ne rve repair with loupe magnification and suturing and NeuraGen tube augmentati on (2 mm x 1 cm). DOS 04/19/13 Encounter Details Date Type Department Care Team Description 05/14/2013 Office Visit Orthopaedic Clinic Ivette Hathaway Finger laceration, Rainelle MD Patricia subsequent Rehabilitation [facility] encounter (Primary 1st Floor, [address] [facility] Dx) [address] [place] [address] 200 [place] [address] [place], [place] [phone] (Wo rk) Social History Tobacco Use Types [...] Name: MARIA E COLEY MRN: -[id number] Account: [id number] : 1955 Service Date: 05/14/2013 Document: [id number] documented in this encounter Nursing Notes 05/14/2013 1:20 PM CST >> [facility] May 14, 2013 1:38 PM Reason [...] Primary documented in this encounter Care Teams Substation Mechanic Relationship Specialty Start Date End Date Edison Tam MD PCP - General Family Practice 09/21/11 07/22/14 909 [facility] 4 [place] [address] documented as of this encounter
--- OUTSIDE RECORDS SUMMARY | 2021-10-26 13:35 | XMS_ITS | Encounter Summary ---
:1955 Author Organization [place] Address [address] [place] [address] Care Team Providers Name Role Phone Edison Tam MD Primary Care Provider Reason for Visit Reason Comments Other Encounter Details Date Type Department Care Team Description 08/19/2013 Telephone Diabetes and Endocri ne Andi Miranda, 6th Floor, Clinic [address]A RN [facility] [address] [place] [address] [phone] Social History Tobacco Use Types Packs/Day [...] 08/19/2013 11:28 AM CDT Scheduled with Anita Peterson today at 1:30 and she will bring [...] on filedocumented in this encounter Care Teams Washing Machine Operator Relationship Specialty Start Date End Date Edison Tam MD PCP - General Family Practice 09/21/11 07/22/14 704 [facility] 4 [place] [address] documented as of this encounter
--- OUTSIDE RECORDS SUMMARY | 2021-10-26 13:35 | XMS_ITS | Encounter Summary ---
:1955 Author Organization [place] Address [address] [place] [address] Care Team Providers Name Role Phone Edison Olivas MD Primary Care Provider Reason for Referral Specialty Diagnoses / Procedures Referred By Contact Refer red To Contact Omar Barnett DP M [address] [place] [phone] Referral ID Status Reason Start Date Expiration Date Visits Requ ested Visits Authorized Reason for Visit Reason Comments Consult L foot bunion, orthotics Encounter Details Date Type Department Care Team Description 09/21/2013 Office Visit Orthopaedic Clinic Truman [facility] NAOMY Nelson (acquired) (Primary Center [address] [place] [address] Dx) 1st Floor, [address] [address] [place], [place] [phone] [address] (Work) [phone] Social History Tobacco Use Types Packs/Day Years [...] Units) by mouth daily Discontinue Vitamin D 92220 100 tablet 3 ??? acetaminophen (TYLENOL) 500 [...] on file Social History Narrative [place] [place] [facility]. She is living in an apartment [...] done. She says that she has used flse-cyf-wskfoht insoles in the past with minimal relief. [...] and prosthetic laboratory given for custom-fit orthotic picker and packer. She is advised upon stretching, icing, and [...] in this encounter Nursing Notes Marga Kingston, [facility] - 09/21/2013 10:39 AM CDT Reason For [...] Units) by mouth daily Discontinue Vitamin D 37042 100 tablet 3 ??? acetaminophen (TYLENOL) 500 [...] Procedure Name Priority Date/Time Associated Diagnosis Comme [facility] ZC IMPRESSION CASTING Routine 09/21/2013 11:03 AM Hallux valg us OF FOOT CDT (acquired) documented in this encounter Visit Diagnoses Diagnosis Hallux valgus (acquired) - Primary documented in this encounter Care Teams Utilities Equipment Repairer Relationship Specialty Start Date End Date Edison Olivas MD PCP - General Family Practice 09/21/11 07/22/14 909 [facility] 4 [place] [address] documented as of this encounter
--- OUTSIDE RECORDS SUMMARY | 2021-10-26 13:35 | XMS_ITS | Encounter Summary ---
:1955 Author Organization [place] Address [facility] [place] [address] Care Team Providers Name Role Phone Edison Tam MD Primary Care Provider Reason for Visit Reason Comments Diabetes Education Encounter Details Date Type Department Care Team Description 08/26/[address] [facility] Anita Peterson PA-C [address] [facility] 803 [place] [address] Steroid-induced Diabetes Education Hanh Meraz diabetes mellitus (H) [place] (Primary Dx) [address] [place] [address] Social History Tobacco Use Types [...] Management Training: Individual Review Visit Maria E Cloey presents today for education related to steroid [...] Wendi Whyte RD CDE for further details. 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
--- OUTSIDE RECORDS SUMMARY | 2021-10-26 13:35 | XMS_ITS | Encounter Summary ---
:1955 Author Organization [place] Address [address] [place] [address] Care Team Providers Name Role Phone Edison Tam MD Primary Care Provider Reason for Visit Reason Onset Date Comments Refill Request 06/18/2013 ropinirole Encounter Details Date Type Department Care Team Description 06/18/2013 Refill [facility], Primary Edison Tam Refill Request Care Center MD Marcia (ropinirole) 3rd Floor, Clinic 3A [phone] [place] [address] [place] [address] Social History Tobacco Use Types [...] (RLS) documented in this encounter Care Teams Health Social Work Professor Relationship Specialty Start Date End Date Edison Tam MD PCP - General Family Practice 09/21/11 07/22/[address] [address] documented as of this encounter
--- OUTSIDE RECORDS SUMMARY | 2021-10-26 13:35 | XMS_ITS | Encounter Summary ---
:1955 Author Organization [place] Address [facility] [place] [address] Care Team Providers Name Role Phone Edison Tam MD Primary Care Provider Reason for Visit Reason Comments RECHECK Left index finger digital ne rve repair with loupe magnification and suturing and NeuraGen tube augmentati on (2 mm x 1 cm). DOS 04/19/13 Encounter Details Date Type Department Care Team Description 07/16/2013 Office Visit Orthopaedic Clinic Marisol Hathaway Digital nerve [place] MD Patricia laceration, finger, Rehabilitation Merrick tremaine [facility] subsequent 1st Floor, [address] 2 [facility] encounter (Primary [facility] [address] Dx) [place], [place] E [address] [place], [place] [phone] (Wo rk) Social History Tobacco Use Types [...] No Hand Dominance Evaluation Hand Dominance: Right Capsule Maker force R hand parachute accessories attacher level 2 force: 24.041 kg (53 lb) L hand parachute accessories attacher level 2 force: 23.133 kg (51 lb) [...] Primary documented in this encounter Care Teams Asbestos Cement Sheet Supervisor Relationship Specialty Start Date End Date Edison Tam MD PCP - General Family Practice 09/21/11 07/22/14 909 [facility] 4 [place] [address] documented as of this encounter
--- OUTSIDE RECORDS SUMMARY | 2021-10-26 13:35 | XMS_ITS | Encounter Summary ---
:1955 Author Organization [place] Address [address] [place] [address] Care Team Providers Name Role Phone Edison Tam MD Primary Care Provider Encounter Details Date Type Department Care Team Description 07/20/2013 Therapy Visit [facility] John, Low back pain (Primary Dx); Physical Therapy Zach Adams PT Sacro-iliac pain [address] [place] [address] Social History Tobacco Use [...] done some deep tissue work. Joined the [employer] and began to swim, says that it [...] back pa in RE-EDUCATION CDT Sacro-iliac pain [facility] THERAPEUTIC EXERCISES Routine 07/20/2013 5:12 PM Low back pain CDT Sacro-iliac pain documented in this encounter Visit Diagnoses Diagnosis Low back pain - Primary Lumbago Sacro-iliac pain Disorders of sacrum documented in this encounter Care Teams Literacy Specialist Relationship Specialty Start Date End Date Edison Tam MD PCP - General Family Practice 09/21/11 07/22/14 909 [facility] 4 [place], [place] 249365 documented as of this encounter
--- OUTSIDE RECORDS SUMMARY | 2021-10-26 13:35 | XMS_ITS | Encounter Summary ---
:1955 Author Organization [place] Address [address] [place] [address] Care Team Providers Name Role Phone Edison Tam MD Primary Care Provider Encounter Details Date Type Department Care Team Description 06/18/2013 Therapy Visit [facility], Low back pain (Primary Dx); Physical Therapy Zach ter Harriett, PT Sacro-iliac pain [address] [place] [address] [id number] Social History Tobacco Use Types Packs/Day Years [...] sacrum documented in this encounter Care Teams Dolphin Trainer Relationship Specialty Start Date End Date Edison Tam MD PCP - General Family Practice 09/21/11 07/22/14 909 [facility] 4 [place] [address] documented as of this encounter
--- OUTSIDE RECORDS SUMMARY | 2021-10-26 13:35 | XMS_ITS | Encounter Summary ---
:1955 Author Organization [place] Address [address] [place] [address] Care Team Providers Name Role Phone Edison Tam MD Primary Care Provider Reason for Visit Reason Comments Other Encounter Details Date Type Department Care Team Description 08/13/2013 Telephone Diabetes and Endocri ne Andi Miranda, 6th Floor, Clinic 6A [facility] [address] [place] [address] [phone] Social History Tobacco Use Types Packs/Day Years Used Date Former Smoker 1 18 Smokeless Tobacco: Former User Q uit: 09/20/1991 Alcohol Use Standard Drinks/Week Comments No 0 (1 standard drink = 0.6 oz pure alcoho l) Sex Assigned at Date Recorded Not on file documented as of this encounter Miscellaneous Notes Telephone Encounter - Kash Moreas MD - 08/27/2013 8:54 AM CDT Message [...] Lew RN, Cam/Specialty Pharmacy Subject: RE: reclast Ak Maria E Prasad is good to go. 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 Secondary Diagnosis: Other Diagnosis: Current/failed therapies: Other pertinent info/labs: [facility]: [id number] Noé Dumas [facility] Administered Medications Coordinator [facility] [email or web address] ----- Message ----- From: Harriett Lew [...] Other Diagnosis: Current/failed therapies: Other pertinent info/labs: [facility]: [id number] Thanks, Noé [facility] Administered Medications Coordinator [facility] [email or web address] ----- Message ----- From: Harriett Lew RN Sent: 07/28/2013 11:52 AM To: Cam/Specialty Pharmacy Subject: reclast Please check coverage for reclast 5 mg 733.01 V87.49 Fracture 814.0 thanks ------ documented in this encounter Plan of Treatment Not on filedocumented as of this encounter Visit Diagnoses Not on filedocumented in this encounter Care Teams Home Companion Relationship Specialty Start Date End Date Edison Tam MD PCP - General Family Practice 09/21/11 07/22/[address] [place] [address] documented as of this encounter
--- OUTSIDE RECORDS SUMMARY | 2021-10-26 13:35 | XMS_ITS | Encounter Summary ---
:1955 Author Organization [place] Address [address] [place] [address] Care Team Providers Name Role Phone Edison Olivas MD Primary Care Provider Reason for Visit Reason Comments RECHECK F/U PREDNISONE REDUCTION ADR ENAL FUCNTION Encounter Details Date Type Department Care Team Description 07/27/2013 Office Visit Diabetes and Laisha Moraes Senile oste oporosis (Primary Dx); Endocrine AMD Corticosteroid dependence (H); 6th Floor, Clinic [address] [place] [address] Fatigue Butler Wangensteen [facility] [address] [phone] [facility] 88 (Work) [place], [place] [phone] [address] (Fax) [phone] Social History Tobacco Use Types Packs/Day Years [...] , and ask to speak with the Learning Support Resource Room Teacher On-Call. =======Medicine Specialty Clinic Medication Refill Information======= [...] She then got IV Reclast (delivered in [place]), stopped about 2 years ago when her [...] Units) by mouth daily Discontinue Vitamin D 08681 100 tablet 3 ??? acetaminophen (TYLENOL) 500 [...] mouth 2 times daily. Jhoana Support by [facility]-- she has been on this 2 weeks [...] EXTREMITIES: No clubbing, cyanosis or edema. DATA [facility] Latest Ref Rng 04/02/2013 12/03/2012 06/04/2012 [...] fatigue documented in this encounter Care Teams Valve Repairer Relationship Specialty Start Date End Date Edison Olivas MD PCP - General Family Practice 09/21/11 07/22/14 909 [facility] 4 [place] [address] documented as of this encounter
--- OUTSIDE RECORDS SUMMARY | 2021-10-26 13:35 | XMS_ITS | Encounter Summary ---
:1955 Author Organization [place] Address [address] [place] [address] Care Team Providers Name Role Phone Edison Tam MD Primary Care Provider Encounter Details Date Type Department Care Team Description 08/28/2013 Telephone Diabetes and Endocri ne Laisha Moraes MD 6th Floor, Clinic 6A [address] [facility] 101 [place], [place] [address] [place] [address] 6 [facility] [place] [phone] Social History Tobacco Use Types Packs/Day [...] Primary documented in this encounter Care Teams Jewel Bearing Turner Relationship Specialty Start Date End Date Edison Tam MD PCP - General Family Practice 09/21/11 07/22/14 909 [facility] 4 [place] [address] documented as of this encounter
--- OUTSIDE RECORDS SUMMARY | 2021-10-26 13:35 | XMS_ITS | Encounter Summary ---
:1955 Author Organization [place] Address [address] [place] [address] Care Team Providers Name Role Phone Edison Tam MD Primary Care Provider Reason for Visit Reason Comments Other Encounter Details Date Type Department Care Team Description 07/28/2013 Telephone Diabetes and Endocri ne Stevenson White RN 6th Floor, Clinic [place] [address] [phone] Social History Tobacco Use Types Packs/Day [...] or %6.35 brands) ThanksHarinder Specialty Pharmacy Liaison [facility] P F [email or web address] ----- Message ----- From: Stevenson White, RN Sent: 07/27/2013 4:54 PM To: Cam/Specialty Pharmacy Subject: forteo Could you please check coverage for forteo 20 mcg sq daily 733.01 V89.49 thanks ------ documented in this encounter Plan of Treatment Not on filedocumented as of this encounter Visit Diagnoses Not on filedocumented in this encounter Care Teams Testing Consultant Relationship Specialty Start Date End Date Edison Tam MD PCP - General Family Practice 09/21/11 07/22/[address] [address] documented as of this encounter
--- OUTSIDE RECORDS SUMMARY | 2021-10-26 13:35 | XMS_ITS | Encounter Summary ---
:1955 Author Organization [place] Address [address] [place] [address] Care Team Providers Name Role Phone Edison Tam MD Primary Care Provider Reason for Visit Reason Comments Other Encounter Details Date Type Department Care Team Description 07/28/2013 Telephone Diabetes and Endocri ne Harriett Lew RN 6th Floor, Clinic [place] [phone] [phone] Social History Tobacco Use Types Packs/Day Years Used Date Former Smoker 1 18 Smokeless Tobacco: Former User Q uit: 09/20/1991 Alcohol Use Standard Drinks/Week Comments No 0 (1 standard drink = 0.6 oz pure alcoho l) Sex Assigned at Date Recorded Not on file documented as of this encounter Miscellaneous Notes Telephone Encounter - Harriett Lew RN - 07/28/2013 11:55 AM CDT ----- Message ----- From: Ximena Celis Sent: 07/28/2013 8:58 AM To: Harriett Lew RN, Cam/Specialty Pharmacy Subject: RE: ni Prasad, No PA required for Forteo at this time. However, she would be subject to the Medicare Part D cost. 1)$310 annual deductible 2)25% up to $2,850 3) Coverage Gap/Doughnut hole 47.5% for brands and 72% generics 4) After $4,550 Out of pocket - catastrophic coverage begins (5% - $2.55 generics or %6.35 brands) Thanks, Ximena Celis Specialty Pharmacy Liaison [facility] P F [email or web address] ----- Message ----- From: Harriett Lew, NANDINI Sent: 07/27/2013 4:54 PM To: Cam/Specialty Pharmacy Subject: forteo Could you please check coverage for forteo 20 mcg sq daily 733.01 V89.49 thanks ------ documented in this encounter Plan of Treatment Not on filedocumented as of this encounter Visit Diagnoses Not on filedocumented in this encounter Care Teams Deputy Chief Sheriff Relationship Specialty Start Date End Date Edison Tam MD PCP - General Family Practice 09/21/11 07/22/[address] [address] documented as of this encounter
--- OUTSIDE RECORDS SUMMARY | 2021-10-26 13:35 | XMS_ITS | Encounter Summary ---
:1955 Author Organization [place] Address [address] [place] [address] Care Team Providers Name Role Phone Edison Tam MD Primary Care Provider Encounter Details Date Type Department Care Team Description 06/02/2013 Therapy Visit [facility] Cher Pantoja, Low back pain (Primary Dx); Orthopaedics Physical PT Sacro-iliac pain Therapy Center [address] [facility] [address] [place] [address] 164552 Social History Tobacco Use Types Packs/Day Years [...] 75% Right: 50% Rotation: Left: Right: Side [place]: Left: Right: Strength: bilateral hip adduction 3/5 [...] Sheet for this information) Short term and care home goals: (See Goal Flow Sheet for this [...] Procedure Name Priority Date/Time Associated Diagnosis Comme [place] THERAPEUTIC Routine 06/02/2013 12:25 PM Low back ashwini n EXERCISES CDT Sacro-iliac pain documented in this encounter Visit Diagnoses Diagnosis Low back pain - Primary Lumbago Sacro-iliac pain Disorders of sacrum documented in this encounter Care Teams Dog Pound Attendant Relationship Specialty Start Date End Date Edison Tam MD PCP - General Family Practice 09/21/11 07/22/14 909 [facility] 4 [place] [address] documented as of this encounter
--- OUTSIDE RECORDS SUMMARY | 2021-10-26 13:35 | XMS_ITS | Encounter Summary ---
:1955 Author Organization [place] Address [address] [place] [address] Care Team Providers Name Role Phone Edison Tam MD Primary Care Provider Encounter Details Date Type Department Care Team Description 08/11/2013 Therapy Visit [facility], Low back pain (Primary Dx); Physical Therapy Zach Adams PT Sacro-iliac pain [address] [place] [address] [id number] Social History Tobacco Use Types Packs/Day Years [...] Low back pain EXERCISES CDT Sacro-iliac pain [facility] THERAPEUTIC Routine 08/11/2013 8:17 PM Low back pain ACTIVITIES CDT Sacro-iliac pain documented in this encounter Visit Diagnoses Diagnosis Low back pain - Primary Lumbago Sacro-iliac pain Disorders of sacrum documented in this encounter Care Teams Belt Press Operator Relationship Specialty Start Date End Date Edison Tam MD PCP - General Family Practice 09/21/11 07/22/[address] [place] [address] 4 [place] [address] documented as of this encounter
--- OUTSIDE RECORDS SUMMARY | 2021-10-26 13:35 | XMS_ITS | Encounter Summary ---
:1955 Author Organization [place] Address [address] [place] [address] Care Team Providers Name Role Phone Edison Olivas MD Primary Care Provider Reason for Referral Patient Education - Closed Specialty Diagnoses / Procedures Referred By Contact Refer red To Contact Diagnoses Hyperglycemia Anita Peterson PA-C [address] [facility] 803 [place], [place] [address] Referral ID Status Reason Start Date Expiration Date Visits Requ ested Visits Authorized [id number] Closed 08/19/2013 02/15/2014 1 1 Reason for Visit Reason Comments RECHECK F/U STEROID INDUCED ELEVATED BLOOD SUGARS Encounter Details Date Type Department Care Team Description 08/19/2013 Office Visit Diabetes and Anita Peterson Hyperglycemia (Primary Endocrine JOSH Cedillo Dx) 6th Floor, Clinic [address]A [address] [place] [facility] [address] [address] [address] [phone] [facility] 88 (Work) [place] [address] Social History Tobacco Use Types [...] , and ask to speak with the Application Helper On-Call. =======[facility]icine Specialty Clinic Medication Refill [...] Units) by mouth daily Discontinue Vitamin D 95362 100 tablet 3 ??? acetaminophen (TYLENOL) 500 [...] glucose documented in this encounter Care Teams Manager Pmo Relationship Specialty Start Date End Date Edison Olivas MD PCP - General Family Practice 09/21/11 07/22/[address] [address] documented as of this encounter
--- OUTSIDE RECORDS SUMMARY | 2021-10-26 13:36 | XMS_ITS | Encounter Summary ---
:1955 Author Organization [place] Address [address] [place] [address] Care Team Providers Name Role Phone Edison Tam MD Primary Care Provider Reason for Visit Reason Comments Other Encounter Details Date Type Department Care Team Description 04/15/2013 Telephone Diabetes and Endocri ne Kash Moraes MD 6th Floor, Clinic [address] [place] [address] [place] [address] [place] [phone] Social History Tobacco Use Types Packs/Day [...] Surgery requesting suggestion for surgery steroid coverage LOPMENT DIRECTOR documented in this encounter Plan of Treatment Not on filedocumented as of this encounter Visit Diagnoses Not on filedocumented in this encounter Care Teams Cpa Tax Relationship Specialty Start Date End Date Edison Tam MD PCP - General Family Practice 09/21/11 07/22/14 909 [facility] 4 [place] [address] documented as of this encounter
--- OUTSIDE RECORDS SUMMARY | 2021-10-26 13:36 | XMS_ITS | Encounter Summary ---
:1955 Author Organization [place] Address [facility] [place] [address] Care Team Providers Name Role Phone Edison Tam MD Primary Care Provider Encounter Details Date Type Department Care Team Description 04/27/2013 Orders Only Orthopaedic Clinic Marisol Hathaway Finger laceration, [place] MD Patricia subsequent encounter Rehabilitation [facility] (Primary Dx) 1st Floor, [address] [facility] [address] [place] [address] [address] [address] [place], [place] [phone] (Wo rk) Social History Tobacco Use Types [...] Primary documented in this encounter Care Teams Traffic Engineering Technician Relationship Specialty Start Date End Date Edison Tam MD PCP - General Family Practice 09/21/11 07/22/[address] [address] documented as of this encounter
--- OUTSIDE RECORDS SUMMARY | 2021-10-26 13:36 | XMS_ITS | Encounter Summary ---
:1955 Author Organization [place] Address [facility] [place] [address] Care Team Providers Name Role Phone Edison Olivas MD Primary Care Provider Reason for Visit Auth/Cert - Closed Specialty Diagnoses / Procedures Referred By Contact Refer red To Contact Surgery Diagnoses Left Index Nerve Laceration Ur Sports Periop Procedures REPAIR NERVE MICROSCOPIC UPPER EXTREMITY [address] [place] [address] Phone: Referral ID Status Reason Start Date Expiration Date Visits Requ ested Visits Authorized [id number] Closed 1 1 Encounter Details Date Type Department Care Team Description 04/16/2013 Hospital Encounter UR SPORTS PHASE II Ivette Hathaway Digital nerve laceration, darin martinez, initial encounter (Primary Dx); [address] [facility] S MD [place] [address] [place] [phone] [facility] [address] [place] [address] Social History Tobacco Use Types Packs/Day Years [...] Comments Blood Pressure 116/78 04/16/2013 2:15 PM OVEN TENDER BAGELS Pulse - - Temperature 36.8 ??C (98.2 ??F) 04/16/2013 2:15 PM OVEN TENDER BAGELS Respiratory Rate 12 04/16/2013 2:15 PM OVEN TENDER BAGELS Oxygen Saturation 98% 04/16/2013 2:15 PM OVEN TENDER BAGELS Inhaled Oxygen Concentration - - Weight 50.8 kg (112 lb) 04/16/2013 10:31 AM OVEN TENDER BAGELS Height 157.5 cm (5' 2) 04/16/2013 10:31 AM OVEN TENDER BAGELS Body Mass Index 20.49 04/16/2013 10:31 AM OVEN TENDER BAGELS documented in this encounter Discharge Instructions Discharge [...] in 7- 10 days. Call for questions. [facility] Same-Day Surgery Adult Discharge Orders & [...] To contact a doctor, call or: ??? [phone] and ask for the resident chronic disease manager for (answered 24 hours a day) ??? Emergency Department: [facility]: [phone] (TTY for hearing impaired: [phone]) [facility]: [phone] (TTY for hearing impaired: [phone]) Post Operative Instructions: Following Surgery on your [...] your dressing/cast is removed by the doctor. TENDER BAGELS documented in this encounter Medications at Time [...] MG 12 hr tablet mouth every morning calcium carbonate (TUMS) 500 Take 1 chew tab 0 12/01/2014 MG chewable tablet by mouth as needed. cholecalciferol (VITAMIN D) Take 1 tablet 100 tablet 3 04/0705/09/2017 1000 UNIT tabletIndications: (1,000 Units) by Osteopenia mouth daily Discontinue Vitamin D 21166 cyanocobalamin 1000 MCG/ML Inject 1 mL into 0 04/27/2013 injection the muscle every 30 days. HYDROcodone-acetaminophen Take 1-2 tablets 30 tablet 0 02/0 08/201305/14/2013 (NORCO) 5-325 MG per by mouth every 4 tabletIndications: Digital hours as needed nerve laceration, finger, for other initial encounter (Moderate to Severe Pain) Lactobacillus (ACIDOPHILUS Take 1 capsule by 0 08/09/2014 PO) mouth daily Levothyroxine Sodium 50 MCG Take 1 tablet by 90 capsule 1 08/28/2013 CAPSIndications: Yossi's mouth daily thyroiditis multivitamin (THERA-PLUS) [...] take 1/2 tab additional prn once daily venlafaxine (EFFEXOR-XR) 75 Take 75 mg by 0 08/15/2015 MG 24 hr capsule mouth daily documented as of this encounter H&P Notes Keisha Provider - 05/07/2013 1:27 PM CST TENDER BAGELS documented in this encounter Miscellaneous Notes Op [...] Name: MARIA E COLEY MRN: [id number] Account: [id number] : 1955 Procedure Date: 04/16/2013 Document: [id number] TENDER BAGELS documented in this encounter Plan of Treatment Not on filedocumented as of this encounter Procedures Procedure Name Priority Date/Time Associated Diagnosis Comme nts REPAIR, NERVE, UPPER 04/16/2013 11:17 AM Left Index Ne rve EXTREMITY, USING OVEN TENDER BAGELS Laceration OPERATING MICROSCOPE Special Needs Difficult IV [...] Site hydrocortisone (hydrocortisone Given 04/16/2013 1:27 PM OVEN TENDER BAGELS 100 mg sodium succinate) 100 mg in sterile water (preservative free) 100 mL injection 100 mg, Intravenous, EVERY 5 MIN PRIOR TO SURGERY, Starting on Tish 04/16/13 at 1317 lactated ringers infusion New Bag 04/16/2013 1:42 PM OVEN TENDER BAGELS at 75-100 mL/hr, Intravenous, CONTINUOUS, UNLESS otherwise indicated., Pre-procedure, Starting on Tish 04/16/13 at 1015, Until Tish 04/16/13 at 1401 New Bag 04/16/2013 11:29 AM OVEN TENDER BAGELS New Bag 04/16/2013 11:15 AM OVEN TENDER BAGELS mL documented in this encounter Active and Recently Administered Medications Times are shown in OVEN TENDER BAGELS. Scheduled Medication Order 04/14/2013 04/15/2013 04/16/2013 hydrocortisone [...] Intra-procedure documented in this encounter Care Teams Press Pipe Inspector Relationship Specialty Start Date End Date Edison Olivas MD PCP - General Family Practice 09/21/11 07/22/[address] [address] documented as of this encounter
--- OUTSIDE RECORDS SUMMARY | 2021-10-26 13:36 | XMS_ITS | Encounter Summary ---
:1955 Author Organization [place] Address [facility] [place] [address] Care Team Providers Name Role Phone Edison Olivas MD Primary Care Provider Reason for Visit Auth/Cert - Closed Specialty Diagnoses / Procedures Referred By Contact Refer red To Contact Surgery Diagnoses Left Index Nerve Laceration Ur Sports Periop Procedures REPAIR NERVE MICROSCOPIC UPPER EXTREMITY [address] [place] [address] Phone: Referral ID Status Reason Start Date Expiration Date Visits Requ ested Visits Authorized [id number] Closed 1 1 Encounter Details Date Type Department Care Team Description 04/16/2013 Surgery UR SPORTS PERIOP Ivette Hathaway Left Index Finger [address] [place] [address] [facility] with Nuerogen tibe [phone] [facility] [place] [address] [place] [address] [place], [place] [address] (Wo rk) Surgery Details [...] Comments Blood Pressure 97/49 04/16/2013 12:47 PM CHILD CARE COUNSELOR Pulse - - Temperature 36.6 ??C (97.9 ??F) 04/16/2013 12:47 PM CHILD CARE COUNSELOR Respiratory Rate 12 04/16/2013 12:47 PM CHILD CARE COUNSELOR Oxygen Saturation 96% 04/16/2013 12:47 PM CHILD CARE COUNSELOR Inhaled Oxygen Concentration - - Weight 50.8 kg (112 lb) 04/16/2013 10:31 AM CHILD CARE COUNSELOR Height 157.5 cm (5' 2) 04/16/2013 10:31 AM CHILD CARE COUNSELOR Body Mass Index 20.49 04/16/2013 10:31 AM CHILD CARE COUNSELOR documented in this encounter Discharge Instructions Discharge [...] in 7- 10 days. Call for questions. [facility] Same-Day Surgery Adult Discharge Orders & [...] To contact a doctor, call or: ??? [phone] and ask for the resident retail client solutions analyst for (answered 24 hours a day) ??? Emergency Department: [facility]: [phone] (TTY for hearing impaired: [phone]) [facility]: [phone] (TTY for hearing impaired: [phone]) Post Operative Instructions: Following Surgery on your [...] your dressing/cast is removed by the doctor. D CARE COUNSELOR documented in this encounter Medications at Time [...] by Osteopenia mouth daily Discontinue Vitamin D 55622 cyanocobalamin 1000 MCG/ML Inject 1 mL into 0 04/27/2013 injection the muscle every 30 days. HYDROcodone-acetaminophen Take 1-2 tablets 30 tablet 0 02/0 08/20132014 (NORCO) 5-325 MG per by mouth every [...] Keisha Provider - 05/07/2013 1:27 PM CST D CARE COUNSELOR documented in this encounter Miscellaneous Notes Op [...] Name: MARIA E COLEY MRN: [id number] Account: [id number] : 1955 Procedure Date: 04/16/2013 Document: [id number] D CARE COUNSELOR documented in this encounter Plan of Treatment Not on filedocumented as of this encounter Procedures Procedure Name Priority Date/Time Associated Diagnosis Comme nts REPAIR, NERVE, UPPER 04/16/2013 11:17 AM Left Index Ne rve EXTREMITY, USING CHILD CARE COUNSELOR Laceration OPERATING MICROSCOPE Special Needs Difficult IV [...] mLs O perative lidocaine 2% (50/50) AM CHILD CARE COUNSELOR Site /Surgical Site injection PRN, Starting on Tish 04/16/13 at 1140, Intra-procedure hydrocortisone (hydrocortisone sodium Given 04/16/2013 1:[address] 100 mg succinate) 100 mg in sterile water (preservative free) 100 mL injection 100 mg, Intravenous, EVERY 5 MIN PRIOR TO SURGERY, Starting on Tish 04/16/13 at 1317 lactated ringers infusion New Bag 04/16/2013 1:42 PM CHILD CARE COUNSELOR at 75-100 mL/hr, Intravenous, CONTINUOUS, UNLESS otherwise indicated., Pre-procedure, Starting on Tish 04/16/13 at 1015, Until Tish 04/16/13 at 1401 New Bag 04/16/2013 11:29 AM CHILD CARE COUNSELOR New Bag 04/16/2013 11:15 AM CHILD CARE COUNSELOR mL sodium chloride 0.9% Given 04/16/2013 12:26 PM 50 mLs Operative Site/Surgical (bottle) irrigation CHILD CARE COUNSELOR Site PRN, Starting on Tish 04/16/13 at 1226, Area to irrigate and instructions: ., Intra-procedure documented in this encounter Active and Recently Administered Medications Times are shown in CHILD CARE COUNSELOR. Scheduled Medication Order 04/14/2013 04/15/2013 04/16/2013 hydrocortisone (hydrocortisone sodium miller ccinate) 100 mg in sterile water (preservative free) 100 mL injection (CANCELED) 1327 (Given - Provider: Janey Cm, RN) 100 mg, Intravenous, EVERY 5 MIN PRIOR TO SURGERY Continuous Medication Order 04/14/2013 04/15/2013 04/16/2013 lactated ringers infusion (CANCELED) 1115 (New Bag - Provider: Ambrosio Whitaker APRN DIGITAL IMAGER)1129 (New Bag - Provider: Jenniffer Mattson RN)1245 [...] Intra-procedure documented in this encounter Care Teams Transliterator Relationship Specialty Start Date End Date Edison Olivas MD PCP - General Family Practice 09/21/11 07/22/14 909 [facility] 4 [place] [address] documented as of this encounter
--- OUTSIDE RECORDS SUMMARY | 2021-10-26 13:36 | XMS_ITS | Encounter Summary ---
:1955 Author Organization [place] Address [facility] [place] [address] Care Team Providers Name Role Phone Edison Tam MD Primary Care Provider Encounter Details Date Type Department Care Team Description 05/04/2013 Orders Only Orthopaedic Clinic Marisol Hathaway Finger laceration, [place] MD Patricia subsequent encounter Rehabilitation [facility] (Primary Dx) 1st Floor, [address] [facility] [address] [place] [address] E [address] [place], [place] [phone] (Wo rk) Social History Tobacco Use Types [...] Primary documented in this encounter Care Teams Golf Course Superintendent Relationship Specialty Start Date End Date Edison Tam MD PCP - General Family Practice 09/21/11 07/22/[address] [address] documented as of this encounter
--- OUTSIDE RECORDS SUMMARY | 2021-10-26 13:36 | XMS_ITS | Encounter Summary ---
:1955 Author Organization [place] Address [facility] [place] [address] Care Team Providers Name Role Phone Edison Tam MD Primary Care Provider Encounter Details Date Type Department Care Team Description 04/21/2013 Radiology Outpatient [facility] Sacro-iliac p ain (Primary Dx); Injection Office Interventional and ez, Sabas, Chron ic pain syndrome Visit Diagnostic Center MD Gomes [address],Clinic [address] [place] [facility] 1750 [facility] 88 [place], [place] [address] [place] [address] [phone] Social History Tobacco Use Types Packs/Day Years [...] Comments Blood Pressure 112/63 04/21/2013 11:44 AM ROOM SERVICE BELLHOP Pulse - - Temperature 37.1 ??C (98.8 ??F) 04/21/2013 10:50 AM ROOM SERVICE BELLHOP Respiratory Rate 12 04/21/2013 10:50 AM ROOM SERVICE BELLHOP Oxygen Saturation - - Inhaled Oxygen Concentration - - Weight - - Height - - Body Mass Index - - documented in this encounter Patient Instructions Patient InstructionsDeana Crum RN - 04/21/2013 11:39 AM CST Outpatient Interventional [facility] Procedure Discharge Instructions Nurse Line (Dr. Nelson): [phone] Appt line: [phone] Bilateral SI joint-steroid injection You may resume [...] onset of pain that is not improving SERVICE BELLHOP documented in this encounter Progress Notes Sabas Reyes MD - 04/21/2013 11:38 AM CST [facility] Interventional Services Dr. Tam, Thank you for the referral. Below is the description of the procedure performed and images are available in PACS. The immediate post procedure benefit was 66%. Hopefully our collaboration will help Maria E Coley obtain the outcome you expect and a rapid functional rehabilitation. Please contact me if any questions or concerns . TrinoiallySabas M.D. [facility] PRE-PROCEDURE DIAGNOSIS: 1. Bilateral [...] in good and stable condition with her property adjuster. Total fluoroscopy time was 121 seconds. MONITORING: Vital signs and cardiac monitoring was performed at all times (see nurse's notes). The patient was observed for 45 minutes following the procedure and was then discharged fully alert and oriented, in good and stable condition with her property adjuster. PAIN RESPONSE: At the time of discharge she describes improvement in pain from 6/10 down to 2-3/10. Sabas Nelson M.D. [facility] SERVICE BELLHOP documented in this encounter Nursing Notes 04/21/2013 [...] syndrome documented in this encounter Care Teams Supervisor General Relationship Specialty Start Date End Date Edison Tam MD PCP - General Family Practice 09/21/11 07/22/[address] [address] documented as of this encounter
--- OUTSIDE RECORDS SUMMARY | 2021-10-26 13:36 | XMS_ITS | Encounter Summary ---
:1955 Author Organization [place] Address [facility] [place] [address] Care Team Providers Name Role Phone Edison Tam MD Primary Care Provider Encounter Details Date Type Department Care Team Description 04/21/2013 Radiant Appointment Outpatient Interventional Charry-R odrigue Low back pain and Diagnostic [facility] [address] [address] 516 [facility] 1750 [facility] 88 [place], [place] [phone] Social History Tobacco Use Types Packs/Day Years [...] back pain Results for this THERAPEUTIC INJECTION [place] MACHINE OPERATOR proced ure are in BILATERAL the results section. documented in this encounter Results XR Sacroiliac Joint Inj Bilateral (04/21/2013 1:04 PM [facility] MACHINE OPERATOR) Specimen (Source) Anatomical Location Collection Method / Collectio n Time Received Time / Laterality Volume Narrative Chao Fisher - 10/08/2013 9:41 AM CDT This exam was marked as non-reportable because it will not be read by a radiologist or a [facility] non-radiologis t provider. Sabas Reyes MD IMG DIAGNOSTIC IMAGING ORD ERABLES documented in this encounter Visit Diagnoses Diagnosis Low back pain Lumbago documented in this encounter Administered Medications Inactive Administered Medications - up to 3 most recent administrations Medication Order MAR Action Action Date Dose Rate Site iohexol (OMNIPAQUE) 300 mg/mL Given 04/21/2013 1:00 PM [facility] MACHINE OPERATOR 10 mL s injection 10 mL 10 mL, Intravenous, ONCE, On Sat04/21/13 at 1300, For 1 dose documented in this encounter Care Teams Hardware Installation Coordinator Relationship Specialty Start Date End Date Edison Tam MD PCP - General Family Practice 09/21/11 07/22/14 909 [facility] 4 [place] [address] documented as of this encounter
--- OUTSIDE RECORDS SUMMARY | 2021-10-26 13:36 | XMS_ITS | Encounter Summary ---
:1955 Author Organization [place] Address [address] [place] [address] Care Team Providers Name Role Phone Edison Tam MD Primary Care Provider Reason for Visit Occupational Therapy - Closed Specialty Diagnoses / Procedures Referred By Contact Refer red To Contact Diagnoses Finger laceration, subsequent encounter [facility] 1st Floor, [address] [place] [address] [phone] Referral ID Status Reason Start Date Expiration Date Visits Requ ested Visits Authorized [id number] Closed 04/30/2013 10/27/2013 1 1 Encounter Details Date Type Department Care Team Description 04/30/2013 Therapy Visit [facility], Finger laceration, initial encounter (Primary Dx); Orthopaedics Hand OT Pain in limb; [facility] Finger stiffness, left; [address] [place] [address] THERAPY CTR Other postprocedural status [address] [place] [address] [address] [place] [address] [phone] Social History Tobacco Use Types Packs/Day Years [...] Deficits as reported by patient: bathing, dressing, cap sizer, driving, sports/recreation, pushing/pulling, lifting/carrying, work, sleeping, reaching [...] edema, Weakness, Sensory disturbance, Adherent scarring, Decreased trade show coordinator, Decreased pinch, Decreased coordination, Decreased dexterity and Adherence in connective tissue of the left index finger which interferes with the patient's ability to perform Self Care Tasks (dressing, eating, bathing, hygiene/toileting), Sleep Patterns, Recreational Activities, Retort Or Condenser Press Operator and Driving as compared to previous level of function. Rehab Potential: Good - Return to full activity, some limitations Patient will benefit from skilled Occupational Therapy to increase ROM, trade show coordinator strength, pinch strength, coordination, dexterity and sensation [...] Home Program: HB dorsal block splint - director multimedia wear, remove for hygiene and exercise GENTLE AROM of finger flexion, extension to DBS Recommend patient get long handled sponge for bathing and jar chapter relations administrator that attaches to base of cabinet for one handed opening Next visit: Check splint Re-measure ROM Formal Edema measures Progress ROM - 10 degrees more extension at MCP, gentle AAROM of flexion Discharge Plan: Achieve all LTG. Independent in home treatment program. Reach maximal therapeutic benefit. Please see daily flow sheet for treatment and 1:1 time provided today. OR PRODUCER documented in this encounter Plan of Treatment Not on filedocumented as of this encounter Procedures Procedure Name Priority Date/Time Associated Diagnosis Comme nts HC APPLY FINGER SPLINT Routine 04/30/2013 12:11 PM Finger lace ration, STATIC SENIOR PRODUCER initial encounte r Pain in limb Finger stiffness , left Other postprocedural status [facility] THERAPEUTIC Routine 04/30/2013 12:11 PM Finger laceration, EXERCISES SENIOR PRODUCER initial encounte r Pain in limb Finger stiffness , left Other postprocedural status documented in this encounter Visit Diagnoses Diagnosis Finger laceration, initial encounter - P rimary Pain in limb Finger stiffness, left Other postprocedural status(V45.89) Other postprocedural status documented in this encounter Care Teams Livestock Buyer Relationship Specialty Start Date End Date Edison Tam MD PCP - General Family Practice 09/21/11 07/22/14 909 [facility] [address] [place] [address] documented as of this encounter
--- OUTSIDE RECORDS SUMMARY | 2021-10-26 13:36 | XMS_ITS | Encounter Summary ---
:1955 Author Organization [place] Address [facility] [place] [address] Care Team Providers Name Role Phone Edison Tam MD Primary Care Provider Reason for Visit Reason Onset Date Comments Refill Request 04/17/2013 oxycodone,vistaril Encounter Details Date Type Department Care Team Description 04/17/2013 Refill [facility] Marisol Hathaway Refill Request [facility] Graciela andrews MD (oxycodone,vistaril) [facility] 1st Floor, [address] [id number] [phone] Social History Tobacco Use Types Packs/Day Years [...] per [place]MIRA Vital/Dr Hathaway/ Lila Clarke RN OR INFORMATION DEVELOPER documented in this encounter Plan of Treatment Not on filedocumented as of this encounter Visit Diagnoses Diagnosis Pain - Primary Generalized pain documented in this encounter Care Teams Barge Pilot Relationship Specialty Start Date End Date Edison Tam MD PCP - General Family Practice 09/21/11 07/22/14 909 [facility] 4 [place] [address] documented as of this encounter
--- OUTSIDE RECORDS SUMMARY | 2021-10-26 13:36 | XMS_ITS | Encounter Summary ---
:1955 Author Organization [place] Address [facility] [place] [address] Care Team Providers Name Role Phone Edison Tam MD Primary Care Provider Encounter Details Date Type Department Care Team Description 04/30/2013 Orders Only Orthopaedic Clinic Mraisol Hathaway Finger laceration, Austin MD Patricia subsequent encounter [facility] (Primary Dx) 1st Floor, [address] [facility] [address] [place] [address] [address] [address] [place], [place] [phone] (Wo rk) Social History Tobacco Use Types [...] Primary documented in this encounter Care Teams Senior Research Executive Relationship Specialty Start Date End Date Edison Tam MD PCP - General Family Practice 09/21/11 07/22/[address] [address] documented as of this encounter
--- OUTSIDE RECORDS SUMMARY | 2021-10-26 13:36 | XMS_ITS | Encounter Summary ---
:1955 Author Organization [place] Address [facility]0 [facility] [place] [address] Care Team Providers Name Role Phone Edison Olivas MD Primary Care Provider Reason for Visit Auth/Cert - Closed Specialty Diagnoses / Procedures Referred By Contact Refer red To Contact Surgery Diagnoses Left Index Nerve Laceration Ur Sports Periop Procedures REPAIR NERVE MICROSCOPIC UPPER EXTREMITY [address] [phone] Phone: Referral ID Status Reason Start Date Expiration Date Visits Requ ested Visits Authorized [id number] Closed 1 1 Encounter Details Date Type Department Care Team Description 04/16/2013 Anesthesia Event UR SPORTS PERIOP Marsha Laurent MD XXX RESIGNED XXX [address] [place] [address] 701 [facility] [address] S Urszula Springer MD [facility] [address] [address] [place] [address] Anesthesia Record Procedure Summary Procedure Name [...] 1326 by 1 3/4 inch; [facility] Anterior; Upper RN M, RN forearm; Median cubital vein (antecubital fossa); Chlorhexidine; Injectable; 1; Tolerated well; MRI Peripheral IV 04/16/13; 1120; 22 G; 04/16/13 1120 by 04/16/13 1510 by Right; Lower forearm; Jenniffer Mattson, RN Rito Herrera, Chlorhexidine; RN Injectable; Tolerated well Retired Non-Surgical 04/16/13; 1139; mm; 04/16/13 1139 by 1243 by Airway laryngeal mask airway; Vasyl Whitaker, Vasyl Whitaker, center of mouth, LEASE ADMINISTRATION ANALYST BATH MIXER LEASE ADMINISTRATION ANALYST BATH MIXER midline; Equal, clear and bilateral; End of [...] 99% 96% Additional Comments: Pt doing well ORATE TREASURY ANALYST Anesthesia Preprocedure Evaluation - Marsha Laurent MD [...] benefits and alternatives discussed with: patient or customer service representative teller. History & Physical Review History and physical [...] Units) by mouth daily Discontinue Vitamin D 06326 ??? rOPINIRole (REQUIP) 1 MG tablet Take [...] made changes as necessary. Marsha Jones MD ORATE TREASURY ANALYST documented in this encounter Miscellaneous Notes Anesthesia Care Transfer Note - Vasyl Whitaker APRN CRNA - 04/16/2013 12:48 PM CST Anesthesia Care Transfer Note Patient: Maria E Coley Transferred to: PACU Patient vital signs: stable Airway: none ORATE TREASURY ANALYST documented in this encounter Plan of Treatment Not on filedocumented as of this encounter Visit Diagnoses Not on filedocumented in this encounter Administered Medications Inactive Administered Medications - up to 3 most recent administrations Medication Order MAR Action Action Date Dose Rate Site acetaminophen (OFIRMEV) 10 Given 04/16/2013 11:48 AM CORPORATE TREASURY ANALYST 1,000 m g mg/mL infusion Intravenous, PRN, mild pain, fever, Administer over 15 Minutes, Starting on Tish 04/16/13 at 1148, Maximum dose of acetaminophen is 4000 mg from all sources., Anesthesia Intra-op clindamycin (CLEOCIN) IVPB Given 04/16/2013 11:33 AM CORPORATE TREASURY ANALYST 900 mg Routine, PRN, Starting on Tish 04/16/13 at 1133, Anesthesia Intra-op fentaNYL (SUBLIMAZE) injection Given 04/16/2013 11:53 AM CORPORATE TREASURY ANALYST 50 mcg PRN, moderate to severe pain, Starting on Tish 04/16/13 at 1137, Anesthesia Intra-op Given 04/16/2013 11:37 AM CORPORATE TREASURY ANALYST 50 mcg lactated ringers infusion New Bag 04/16/2013 1:42 PM CORPORATE TREASURY ANALYST at 75-100 mL/hr, Intravenous, CONTINUOUS, UNLESS otherwise indicated., Pre-procedure, Starting on Tish 04/16/13 at 1015, Until Tish 04/16/13 at 1401 New Bag 04/16/2013 11:29 AM CORPORATE TREASURY ANALYST New Bag 04/16/2013 11:15 AM CORPORATE TREASURY ANALYST mL lidocaine 2% Given 04/16/2013 11:37 AM CORPORATE TREASURY ANALYST 80 mg PRN, Starting on Tish 04/16/13 at 1137, Anesthesia Intra-op midazolam (VERSED) injection Given 04/16/2013 11:27 AM CORPORATE TREASURY ANALYST 2 mg PRN, anxiety, Starting on Tish 04/16/13 at 1127, Anesthesia Intra-op ondansetron (ZOFRAN) injection Given 04/16/2013 12:37 PM CORPORATE TREASURY ANALYST 4 mg PRN, nausea, vomiting, Administer over 2-5 Minutes, Starting on Tish 04/16/13 at 1237, Anesthesia Intra-op phenylephrine (CECI-SYNEPHRINE) injection Given 04/16/2013 12:28 PM CORPORATE TREASURY ANALYST 100 mcg dilution PRN, Starting on Tish 04/16/13 at 1145, Anesthesia Intra-op Given 04/16/2013 12:23 PM CORPORATE TREASURY ANALYST 100 mcg Given 04/16/2013 12:11 PM CORPORATE TREASURY ANALYST 100 mcg propofol (DIPRIVAN) infusion Rate/Dose 04/16/2013 100 mcg/kg/min 30.5 mL/hr Intravenous, CONTINUOUS PRN, Change 11:45 AM CORPORATE TREASURY ANALYST Starting on Tish 04/16/13 at 1141, Range: 5-75mcg/kg/min Titrate by 5-10 mcg/kg/min every 5 minutes., Anesthesia Intra-op New Bag 04/16/2013 11:41 AM CORPORATE TREASURY ANALYST 150 mcg/kg/min 45.7 mL/hr propofol (DIPRIVAN) injection Given 04/16/2013 11:37 AM CORPORATE TREASURY ANALYST 150 mg PRN, Starting on Tish 04/16/13 at 1137, Anesthesia Intra-op documented in this encounter Care Teams Fishing Hand Relationship Specialty Start Date End Date Edison Olivas MD PCP - General Family Practice 09/21/11 07/22/[address] [address] documented as of this encounter
--- OUTSIDE RECORDS SUMMARY | 2021-10-26 13:37 | XMS_ITS | Encounter Summary ---
:1955 Author Organization [facility] Address [address] [place] [address] Care Team Providers Name Role Phone Edison Tam MD Primary Care Provider Reason for Visit Reason Onset Date Comments Procedure 02/26/2013 bilateral SI joint i njection Encounter Details Date Type Department Care Team Description 02/26/2013 Telephone [facility] Pain Management Procedu re (bilateral Pain Management Program, [facility] SI join t injection) [facility] [address] [place] [address] Social History Tobacco Use Types [...] route to Zonia and Mo) Is an paraprofessional interpreter needed? No Patient has a ride home? [...] ?? If so ,was it done at [facility]? (If not at [facility], [facility], or [facility] DO NOT SCHEDULE contact RN). ?? [...] notes? Does the patient have any questions? WASH ATTENDANT documented in this encounter Plan of Treatment Not on filedocumented as of this encounter Visit Diagnoses Not on filedocumented in this encounter Care Teams Websphere Portal Architect Relationship Specialty Start Date End Date Edison Tam MD PCP - General Family Practice 09/21/11 07/22/[address] [address] documented as of this encounter
--- OUTSIDE RECORDS SUMMARY | 2021-10-26 13:37 | XMS_ITS | Encounter Summary ---
:1955 Author Organization [facility] Address [address] [place] [address] Care Team Providers Name Role Phone Edison Tam MD Primary Care Provider Encounter Details Date Type Department Care Team Description 04/15/2013 Abstract Diabetes and Endocri ne Harriett Lew RN 6th Floor, Clinic [address] [place] [phone] Social History Tobacco Use Types Packs/Day [...] on filedocumented in this encounter Care Teams Organ Installer Relationship Specialty Start Date End Date Edison Tam MD PCP - General Family Practice 09/21/11 07/22/[address] [address] documented as of this encounter
--- OUTSIDE RECORDS SUMMARY | 2021-10-26 13:37 | XMS_ITS | Encounter Summary ---
:1955 Author Organization [facility] Address [address] [place] [address] Care Team Providers Name Role Phone Edison Tam MD Primary Care Provider Encounter Details Date Type Department Care Team Description 01/20/2013 Orders Only Medicine GI - 1E Charan Salazar MD Crohn's disease (H) [address] (Primary Dx) [place], [place] 1st Floor, Clinic [address] [place] [address] [place] [address] Social History Tobacco Use [...] site documented in this encounter Care Teams Executive Chairman Of The Board Relationship Specialty Start Date End Date Edison Tam MD PCP - General Family Practice 09/21/11 07/22/[address] [address] documented as of this encounter
--- OUTSIDE RECORDS SUMMARY | 2021-10-26 13:37 | XMS_ITS | Encounter Summary ---
:1955 Author Organization [place] Address [address] [place] [address]. [place] [address] Care Team Providers Name Role Phone Edison Olivas MD Primary Care Provider Reason for Visit Reason Comments Laceration Encounter Details Date Type Department Care Team Description 04/09/2013 Emergency [facility] Jarrod Meredith MD Laceration of finger, Emergency Department [address] [place] [address] initial encounter [address] [place], [place] (Primary Dx) [place] [address] [phone] (Wo rk) Social History Tobacco Use Types [...] Comments Blood Pressure 100/61 04/09/2013 9:27 PM LEAD ORACLE DEVELOPER Pulse 88 04/09/2013 9:27 PM LEAD ORACLE DEVELOPER Temperature 36.8 ??C (98.2 ??F) 04/09/2013 8:12 PM LEAD ORACLE DEVELOPER Respiratory Rate 16 04/09/2013 9:27 PM LEAD ORACLE DEVELOPER Oxygen Saturation 100% 04/09/2013 9:27 PM LEAD ORACLE DEVELOPER Inhaled Oxygen Concentration - - Weight 50.8 kg (112 lb) 04/09/2013 8:12 PM LEAD ORACLE DEVELOPER Height 157.5 cm (5' 2) 04/09/2013 8:12 PM LEAD ORACLE DEVELOPER Body Mass Index 20.49 04/09/2013 8:12 PM LEAD ORACLE DEVELOPER documented in this encounter Discharge Instructions Discharge [...] Bleeding not controlled by direct pressure ?? [phone] [employer], [address] [place] [address], [place] [address]. All rights reserved. This information is not intended as a substitute for professional medical care. Always follow your healthcare professional's instructions. ORACLE DEVELOPER documented in this encounter Medications at Time [...] by Osteopenia mouth daily Discontinue Vitamin D 44098 cyanocobalamin 1000 MCG/ML Inject 1 mL into [...] w/ 27 gauge needles, 1 inch length ANMU-REO-VNIKQLL Might-a mins 0 2013 spectrum once daily [...] documented as of this encounter ED Notes Ble Meredith MD - 04/09/2013 8:33 PM CST Images from the original note were not included. [facility] Emergency Department [address] [place] [address] Room 11 History Chief Complaint Patient presents with ??? Laceration The history is provided by the patient. No english as a second language teacher was used. Maria E Coley is a [...] and Surgical History, and [facility] Review of Systems Constitutional: Negative [...] after splint placement. Critical Care time: none [facility] Diagnoses: None Labs Ordered and Resulted from [...] Irene, am serving as a trained medical office technology instructor to document services personally performed by Dr. Meredith, based on the provider's statements to me. This document has been checked and approved by the attending provider I, Dr. Meredith, was physically present and have reviewed and verified the accuracy of this note documented by Cher Irene. 04/09/2013 [facility] [place], EMERGENCY DEPARTMENT Bel Meredith MD 04/10/13 0023 ORACLE DEVELOPER Bruna Vanessa RN - 04/09/2013 8:15 PM CST Pt has approx 1 inch laceration on inner left pointer finger. Pt was attempting to remove seed from avocado and lacerated finger. Bleeding controlled upon arrival. Pt does have decreased sensation in finger and does complain of numbness/tingling. ORACLE DEVELOPER documented in this encounter Plan of Treatment Not on filedocumented as of this encounter Visit Diagnoses Diagnosis Laceration of finger, initial encounter - Primary documented in this encounter Administered Medications Inactive Administered Medications - up to 3 most recent administrations Medication Order MAR Action Action Date Dose Rate Site lidocaine 1 % injection Given 04/09/2013 8:43 PM LEAD ORACLE DEVELOPER Starting on Tish 04/09/13 at 2039, For 1 dose, GE[place] SAUCEDA: cabinet override documented in this encounter Active and Recently Administered Medications Times are shown in LEAD ORACLE DEVELOPER. No Frequency Medication Order 04/07/2013 04/08/2013 04/09/2013 lidocaine 1 % injection (COMPLETED) 2042 (Given - Provider: Georgia Sauceda RN) Starting Tish 04/09/13 at 2039, For 1 dose, [place] SAUCEDA: cabinet override documented in this encounter Care Teams Clinical Services Manager Relationship Specialty Start Date End Date Edison Olivas MD PCP - General Family Practice 09/21/11 07/22/[address] [address] documented as of this encounter
--- OUTSIDE RECORDS SUMMARY | 2021-10-26 13:37 | XMS_ITS | Encounter Summary ---
:1955 Author Organization [place] Address [address] [place] [address] Care Team Providers Name Role Phone Edison Tam MD Primary Care Provider Encounter Details Date Type Department Care Team Description 12/05/2012 Orders Only Diabetes and Laisha Moraes Hypothyroid ism (Primary Dx); Endocrine AMD Yossi's thyroiditis; 6th Floor, Clinic 6A [address] [facility] Osteoporosis, unspecified [place] [facility] [address] [phone] [facility] [address] (Work) [place] [address] Social History Tobacco Use Types [...] unspecified documented in this encounter Care Teams Manager Respiratory Care Relationship Specialty Start Date End Date Edison Tam MD PCP - General Family Practice 09/21/11 07/22/[address] [address] documented as of this encounter
--- OUTSIDE RECORDS SUMMARY | 2021-10-26 13:37 | XMS_ITS | Encounter Summary ---
:1955 Author Organization [place] Address [address] [place] [address] Care Team Providers Name Role Phone Edison Tam MD Primary Care Provider Reason for Referral Specialty Diagnoses / Procedures Referred By Contact Refer red To Contact Edison Tam MD [address] [place] [address] 5 Referral ID Status Reason Start Date Expiration Date Visits Requ ested Visits Authorized HER SPLITTER Specialty Diagnoses / Procedures Referred By Contact Refer red To Contact Edison Tam MD [address] [place] [address] 5 Referral ID Status Reason Start Date Expiration Date Visits Requ ested Visits Authorized HER SPLITTER Specialty Diagnoses / Procedures Referred By Contact Refer marlin To Contact Edison Tam MD [address] [place] [address] 5 Referral ID Status Reason Start Date Expiration Date Visits Requ ested Visits Authorized HER SPLITTER Reason for Visit Reason Comments Dry Eye(s) [...] left leg; 3rd Floor, Clinic 3A [address] [facility] [address] Dry eyes, bilateral; [place] 4 Crohn's disease of both small and large intestine with complication (H); Building [place], [place] Bunion, left; [address] [facility] [place] [address] Routine general medical examination at a health care facility; [employer] [phone] Hypothyroidism; [place], [place] (Work) Chronic steroid use; [id number] Crohn's [...] Comments Blood Pressure 88/61 04/02/2013 10:23 AM LEATHER SPLITTER Pulse 86 04/02/2013 10:23 AM LEATHER SPLITTER Temperature - - Respiratory Rate - - Oxygen Saturation - - Inhaled Oxygen Concentration - - Weight 52.2 kg (115 lb) 04/02/2013 10:23 AM LEATHER SPLITTER Height - - Body Mass Index 21.03 01/14/2013 2:06 PM LEATHER SPLITTER documented in this encounter Patient Instructions Patient InstructionsAndrew Kong, RETAIL SPECIAL EVENT ASSOCIATE - 04/02/2013 10:23 AM LEATHER SPLITTER Primary Care [phone] (3rd Floor PWB, [address]) Breast Center [phone] ([facility] 1st floor) Ophthalmology [phone] ([facility], [address]) U Ortho [phone] ([facility] [address], [address]) Podiatry [phone] (6th Floor PWB, [address]) Radiology (Imaging Center) [phone] (1st Floor PWB, [address]) Primary Care Center Medication Refill Request Information: * Please contact your pharmacy regarding ANY request for medication refills. [facility] Prescription Fax = [phone] * Please allow 3 business days for [...] the results and signed off on them. HER SPLITTER documented in this encounter Progress Notes Edison [...] 5 MG tablet ??? vitamin D (ERGOCALCIFEROL) 93029 UNIT capsule ??? buPROPion (WELLBUTRIN SR) 150 MG 12 hr tablet ??? ALPRAZolam (XANAX) 0.5 MG tablet ??? calcium carbonate (TUMS) 500 MG chewable tablet ??? ORDER FOR DME ??? multivitamin (THERA-PLUS) LIQD ??? [id number] ??? Carboxymethylcellulose Sodium (REFRESH TEARS OP) ??? [...] on file Social History Narrative Moved to [place] from [facility]. She is living in an apartment accessible. [...] The L4-L5 intervertebral space is obliterated and thdy-po-gppy. Vertebral body heights are maintained. However, there [...] and agreement with the above. Edison Tam HER SPLITTER documented in this encounter Nursing Notes 04/02/2013 10:25 AM CST >> ANDREW KONG CMA [facility] Apr 02, 2013 10:25 AM Patient [...] of 04/02/2013 12:34 PM Contrast left leg LEATHER SPLITTER Sacro-iliac pain Scheduled Referrals Name Type Priority [...] and Res ults for this DIFFERENTIAL PM LEATHER SPLITTER tingling of left procedure a re in leg the results section. VITAMIN D DEFICIENCY Routine 04/02/2013 12:54 Sacro-iliac pain Results for this SCREENING PM LEATHER SPLITTER procedure are i n the results section. TSH WITH FREE T4 Routine 04/02/2013 12:54 Numbness and Results for this REFLEX PM LEATHER SPLITTER tingling of left procedure a re in leg the results section. LIPID REFLEX TO DIRECT Routine 04/02/2013 12:54 Numbness and R esults for this LDL PANEL PM LEATHER SPLITTER tingling of left procedure a re in leg the results section. HEMOGLOBIN A1C Routine 04/02/2013 12:54 Sacro-iliac ashwini n Results for this PM LEATHER SPLITTER Numbness and procedure are i n tingling of left the results leg section. Chronic steroid use ERYTHROCYTE Routine 04/02/2013 12:54 Results for this SEDIMENTATION RATE PM LEATHER SPLITTER procedure are in AUTO the results section. CRP INFLAMMATION Routine 04/02/2013 12:54 Results for this PM LEATHER SPLITTER procedure are i n the results section. COMPREHENSIVE Routine 04/02/2013 12:54 Numbness and Results fo r this METABOLIC PANEL PM LEATHER SPLITTER tingling of left procedur e are in leg the results section. CT LUMBAR SPINE W/O Routine 04/02/2013 12:33 Numbness and Resu lts for this CONTRAST PM LEATHER SPLITTER tingling of left procedure a re in leg the results Sacro-iliac pain section. documented in this encounter Results Erythrocyte sedimentation rate auto (04/02/2013 12:54 PM LEATHER SPLITTER) P athologist Signature Sed Rate 5 0 - 30 mm/h [facility] LABS Specimen Anatomical Collection Method Collection Time Receive d Time (Source) Location / / Volume Laterality 04/02/2013 12:54 04/02/2013 PM LEATHER SPLITTER 12:56 PM LEATHER SPLITTER Edison Tam MD LAB - BLOOD ORDERABLES Performing Organization Address City/State/ZIP Code Phon e Number [facility] [address] [place], [place] [id number] [place] [address] LABS CRP inflammation (04/02/2013 12:54 PM LEATHER SPLITTER) Analysis Performed At Patho logist Time Signature CRP Inflammation <5.0 0.0 - 8.0 [facility] mg/L [facility] LABS Specimen Anatomical Collection Method Collection Time Receive d Time (Source) Location / / Volume Laterality 04/02/2013 12:54 04/02/2013 PM LEATHER SPLITTER 12:56 PM LEATHER SPLITTER Edison Tam MD LAB - BLOOD ORDERABLES Performing Organization Address City/[facility]/ZIP Code Phon e Number [facility] [address] [place], [place] [phone] [place] [address] LABS Hemoglobin A1c (04/02/2013 12:54 PM LEATHER SPLITTER) P athologist Signature Hemoglobin A1C 5.5 4.3 - 6.0 [facility] LABS Specimen Anatomical Collection Method Collection Time Receive d Time (Source) Location / / Volume Laterality Blood specimen 04/02/2013 12:54 4 (specimen) PM LEATHER SPLITTER 12:56 PM LEATHER SPLITTER Edison Tam MD LAB - BLOOD ORDERABLES Performing Organization Address City/[facility]/ZIP Code Phon e Number [phone] [place] [address] LABS Vitamin D Deficiency (04/02/2013 12:54 PM LEATHER SPLITTER) P athologist Signature Vitamin D 67 30 - 75 [facility] Deficiency ug/L [place] LABS screening Comment: Season, race, dietary intake, and treatm ent affect the concentration of 42-usjethi-Qxjlhey D. Values may decrea se during winter [...] questions, pl ease contact the laboratory at [phone]. Specimen Anatomical Collection Method Collection Time Receive d Time (Source) Location / / Volume Laterality Blood specimen 04/02/2013 12:54 4 (specimen) PM LEATHER SPLITTER 12:56 PM LEATHER SPLITTER Edison Tam MD LAB - BLOOD ORDERABLES Performing Organization Address City/[facility]/ZIP Code Phon e Number [facility] [address] LABS TSH with free T4 reflex (04/02/2013 12:54 PM LEATHER SPLITTER) P athologist Signature TSH 1.08 0.4 - 5.0 [facility] mU/L [place] LABS Specimen Anatomical Collection Method Collection Time Receive d Time (Source) Location / / Volume Laterality Blood specimen 04/02/2013 12:54 4 (specimen) PM LEATHER SPLITTER 12:56 PM LEATHER SPLITTER Edison Tam MD LAB - BLOOD ORDERABLES Performing Organization Address City/[facility]/ZIP Code Phon e Number [facility] [address] [place], [place] [id number] [place] [address] LABS CBC with platelets differential (04/02/2013 12:54 PM LEATHER SPLITTER) Patholo gist Method Time Signature WBC 8.2 4.0 - [facility] 11.0 [facility] 10e9/L CAMP[facility] LABS RBC Count 4.87 3.8 - 5.2 [facility] 10e12/L [facility] LABS Hemoglobin 14.8 11.7 - [facility] 15.7 g/dL [facility] LABS Hematocrit 45.0 35.0 - [facility] 47.0 % [facility] LABS MCV 92 78 - 100 [facility] fl [facility] LABS MCH 30.4 26.5 - [facility] 33.0 pg [facility] LABS MCHC 32.9 31.5 - [facility] 36.5 g/dL [facility] LABS RDW 12.7 10.0 - [facility] 15.0 % [facility] LABS Platelet Count 218 150 - 450 [facility] 10e9/L [facility] LABS Diff Method Automated [facility] Method [facility] LABS % Neutrophils 83.0 % [facility] LABS % Lymphocytes 10.4 % [facility] LABS % Monocytes 5.7 % [facility] LABS % Eosinophils 0.5 % [facility] LABS % Basophils 0.2 % [facility] % Immature 0.2 % [facility] Granulocytes [facility] [place] [facility] Absolute 6.8 1.6 - 8.3 [facility] Neutrophil 10e9/L [facility] LABS Absolute 0.9 0.8 - 5.3 [facility] Lymphocytes 10e9/L [facility] LABS Absolute 0.5 0.0 - 1.3 [facility] Monocytes 10e9/L [facility] LABS Absolute 0.0 0.0 - 0.7 [facility] Eosinophils 10e9/L [facility] LABS Absolute 0.0 0.0 - 0.2 [facility] Basophils 10e9/L [facility] LABS Abs Immature 0.0 0 - 0.4 [facility] Granulocytes 10e9/L [facility] LABS Specimen Anatomical Collection Method Collection Time Receive d Time (Source) Location / / Volume Laterality Blood specimen 04/02/2013 12:54 4 (specimen) PM LEATHER SPLITTER 12:56 PM LEATHER SPLITTER Edison Tam MD LAB - BLOOD ORDERABLES Performing Organization Address City/State/ZIP Code Phon e Number [facility] [address] [place], [place] [phone] [place] [address] [facility] LABS Comprehensive metabolic panel (04/02/2013 12:54 PM LEATHER SPLITTER) P athologist Signature Sodium 137 133 - 144 [facility] mmol/L [facility] LABS Potassium 3.7 3.4 - 5.3 [facility] mmol/L [facility] LABS Chloride 102 94 - 109 [facility] mmol/L [facility]S Carbon Dioxide 25 20 - 32 [facility] mmol/L [facility] LABS Anion Gap 10 6 - 17 [facility] mmol/L [facility]S Glucose 91 60 - 99 [facility] mg/dL [facility] LABS Urea Nitrogen 13 7 - 30 [facility] mg/dL [facility] LABS Creatinine 0.84 0.52 - [facility] 1.04 mg/dL [facility] LABS GFR Estimate 70 >60 [facility] mL/min/1.7 [place] m2 [facility]AMP[facility] LABS GFR Estimate If 84 >60 [facility] Black mL/min/1.[address] LABS Calcium 9.1 8.5 - 10.4 [facility] mg/dL [facility] LABS Bilirubin Total 0.3 0.2 - 1.3 [facility] mg/dL [facility] LABS Albumin 4.2 3.3 - 4.9 [facility] g/dL [facility] LABS Protein Total 6.9 6.8 - 8.8 [facility] g/dL [facility] LABS Alkaline 83 40 - 150 [facility] Phosphatase U/L [facility] LABS ALT 38 0 - 50 U/L [facility] LABS AST 30 0 - 45 U/L [facility] LABS Specimen Anatomical Collection Method Collection Time Receive d Time (Source) Location / / Volume Laterality Blood specimen 04/02/2013 12:54 4 (specimen) PM LEATHER SPLITTER 12:56 PM LEATHER SPLITTER Edison Tam MD LAB - BLOOD ORDERABLES Performing Organization Address City/[facility]/ZIP Code Phon e Number [facility] [address] LABS (ABNORMAL) Lipid panel reflex to direct LDL (04/02/2013 12:54 PM LEATHER SPLITTER) athologist Signature Cholesterol 203 (H) 0 - 200 [facility] mg/dL [place] [facility] Comment: LDL Cholesterol is the primary guide to therapy. The NCEP recommends further evaluation of: patients with cholesterol greater than 200 mg/dL if additional risk facto rs are present, cholesterol greater than 240 mg/dL, triglycerides greater than 1 50 mg/dL, or HDL less than 40 mg/dL. Triglycerides 159 (H) 0 - 150 mg/dL [facility] LABS HDL Cholesterol 84 50 - 110 mg/dL [facility] LABS LDL Cholesterol Calculated 87 0 - 129 mg/dL [facility] LABS Comment: LDL Cholesterol is the primary guide to therapy: LDL-cholesterol goal in high risk patients is <100 mg/dL and in very high risk patients is <70 mg/dL. VLDL-Cholesterol 32 (H) 0 - 30 mg/dL [facility] LABS Cholesterol/HDL Ratio 2.4 0.0 - 5.0 [facility] LABS Specimen Anatomical Collection Method Collection Time Receive d Time (Source) Location / / Volume Laterality Blood specimen 04/02/2013 12:54 4 (specimen) PM LEATHER SPLITTER 12:56 PM LEATHER SPLITTER Edison Tam MD LAB - BLOOD ORDERABLES Performing Organization Address City/[facility]/ZIP Code Phon e Number [facility] [address] [place] [address] [facility] LABS CT Lumbar Spine w/o Contrast (04/02/2013 12:33 PM LEATHER SPLITTER) Anatomical Region Laterality Modality Spine, SUBRAD CT MSK, [facility] CT SPINE Compu jose luis Tomography Specimen (Source) Anatomical Collection Method Collection Time Re ceived Time Location / / Volume Laterality 04/02/2013 12:33 PM LEATHER SPLITTER Impressions 04/03/2013 3:59 PM LEATHER SPLITTER Impression: 1. Severe spondylosis of the lumbar spin e worst at L3-L4 and L4-L5 as described above, not significantly valles ed from comparison. 2. Stable postsurgical changes of L3-L4 decompressive laminectomies. 3. Stable bilateral pars defect of L5. 4. Diffuse osteopenia. LANI WATERS MD I have personally reviewed the image and initial interpretation, and I agree with findings. Narrative 04/03/2013 3:59 PM LEATHER SPLITTER Lumbar spine CT without contrast History: Left [...] site documented in this encounter Care Teams Groundskeeper Supervisor Relationship Specialty Start Date End Date Edison Tam MD PCP - General Family Practice 09/21/11 07/22/14 909 [facility] 4 [place] [address] documented as of this encounter
--- OUTSIDE RECORDS SUMMARY | 2021-10-26 13:37 | XMS_ITS | Encounter Summary ---
:1955 Author Organization [place] Address [address] [place] [address] Care Team Providers Name Role Phone Edison Tam MD Primary Care Provider Reason for Visit Reason Comments RECHECK Follow up Crohns Encounter Details Date Type Department Care Team Description 01/14/2013 Office Visit Medicine GI - 1E Charan Salazar MD Inflammatory bowel [address] disease (Crohn's Building [place], [place] disease) (H) (Primary 1st Floor, Clinic 1E [address] Dx) [address] [place] [address] SE (Work) [place] [address] Social History Tobacco Use Types [...] Comments Blood Pressure 104/62 01/14/2013 2:06 PM ROTARY DRILL RIG OPERATOR Pulse 86 01/14/2013 2:06 PM ROTARY DRILL RIG OPERATOR Temperature 36.9 ??C (98.5 ??F) 01/14/2013 2:06 PM ROTARY DRILL RIG OPERATOR Respiratory Rate - - Oxygen Saturation 97% 01/14/2013 2:06 PM ROTARY DRILL RIG OPERATOR Inhaled Oxygen Concentration - - Weight 52.4 kg (115 lb 8 oz) 01/14/2013 2:06 PM Wearing shoes ROTARY DRILL RIG OPERATOR Height 157.5 cm (5' 2) 01/14/2013 2:06 PM ROTARY DRILL RIG OPERATOR Body Mass Index 21.13 01/14/2013 2:06 PM ROTARY DRILL RIG OPERATOR documented in this encounter Patient Instructions Patient [...] During business hours, you may reach my Public Safety Officer at . For urgent/emergent questions after business hours, you may reach the on-call GI Fellowby contacting the [facility] covering machine operator helper at . Any benign/non-urgent test results are usually communicated via letter or GeoQuiphart message within 1-2weeks after completion. Urgent results (those that require a change in the previously-discussed careplan) are usually communicated via a phone call once available from our clinic staff to discuss the results and the next steps in your evaluation. I recommend signing up for ShowNearbyt access if you have not already done [...] about your healthcare. Sincerely, Charan Salazar MD Roads Superintendent [facility] - Department of Medicine Division of Gastroenterology RY DRILL RIG OPERATOR documented in this encounter Progress Notes Charan [...] the above delineated issues. Charan Salazar MD Roads Superintendent [facility] - Department of Medicine Division of Gastroenterology RY DRILL RIG OPERATOR documented in this encounter Nursing Notes 01/14/2013 [...] monique l Results for this DIFFERENTIAL PM ROTARY DRILL RIG OPERATOR disease (Crohn's procedure a re in disease) (H) the results section. COMPREHENSIVE Routine 01/14/2013 2:44 Inflammatory bowel Resul ts for this METABOLIC PANEL PM ROTARY DRILL RIG OPERATOR disease (Crohn's procedur e are in disease) (H) the results section. documented in this encounter Results CBC with platelets differential (01/14/2013 2:44 PM ROTARY DRILL RIG OPERATOR) [facility] gist Method Time Signature WBC 6.0 4.0 - [facility] 11.0 [place] 10e9/L [place] [facility] RBC Count 4.68 3.8 - 5.2 [facility] 10e12/L [facility] Hemoglobin 14.1 11.7 - [facility] 15.7 g/dL [facility] Hematocrit 43.5 35.0 - [facility] 47.0 % [facility] MCV 93 78 - 100 [facility] fl [facility] MCH 30.1 26.5 - [facility] 33.0 pg [facility] MCHC 32.4 31.5 - [facility] 36.5 g/dL [facility] RDW 13.0 10.0 - [facility] 15.0 % [facility] Platelet Count 230 150 - 450 [facility] 10e9/L [facility] Diff Method Automated [facility] Method [facility] % Neutrophils 73.7 % [facility] LAB[facility] % Lymphocytes 16.6 % [facility] LABS % Monocytes 8.7 % [facility] % Eosinophils 0.5 % [facility] % Basophils 0.3 % [facility] % Immature 0.2 % [facility] Granulocytes [facility] [place] [facility] Absolute 4.4 1.6 - 8.3 [facility] Neutrophil 10e9/L [facility] Absolute 1.0 0.8 - 5.3 [facility] Lymphocytes 10e9/L [facility] Absolute 0.5 0.0 - 1.3 [facility] Monocytes 10e9/L [facility] Absolute 0.0 0.0 - 0.7 [facility] Eosinophils 10e9/L [facility] Absolute 0.0 0.0 - 0.2 [facility] Basophils 10e9/L [facility] Abs Immature 0.0 0 - 0.4 [facility] Granulocytes 10e9/L [facility] Specimen Anatomical Collection Method Collection Time Receive d Time (Source) Location / / Volume Laterality Blood specimen 01/14/2013 2:44 PM 013 4:25 (specimen) ROTARY DRILL RIG OPERATOR PM ROTARY DRILL RIG OPERATOR Charan Salazar MD LAB - BLOOD ORDERABLES Performing Organization Address City/State/ZIP Code Phon e Number [facility] [address] [place], [place] [id number] [place], [place] [address]C [place] [facility] LAB[facility] (ABNORMAL) Comprehensive metabolic panel (01/14/2013 2:44 PM ROTARY DRILL RIG OPERATOR) [facility] gist Method Time Signature Sodium 138 133 - 144 [facility] mmol/L [facility] Potassium 3.4 3.4 - 5.3 [facility] mmol/L [facility] Chloride 104 94 - 109 [facility] mmol/L [facility] Carbon Dioxide 27 20 - 32 [facility] mmol/L [facility] Anion Gap 7 6 - 17 [facility] mmol/L [facility] Glucose 86 60 - 99 [facility] mg/dL [facility] Urea Nitrogen 22 7 - 30 [facility] mg/dL [facility] Creatinine 0.83 0.52 - [facility] 1.04 [place] mg/dL CAMPUS LABS GFR Estimate 71 >60 [facility] mL/min/1. [place] [address] LABS GFR Estimate If 85 >60 [facility] Black mL/min/1. [address] LABS Calcium 9.0 8.5 - [facility] 10.4 [place] mg/dL [place] [facility] Bilirubin Total <0.1 (L) 0.2 - 1.3 [facility] mg/dL [facility] Albumin 3.9 3.3 - 4.9 [facility] g/dL [facility] Protein Total 6.5 (L) 6.8 - 8.8 [facility] g/dL [facility] Alkaline 77 40 - 150 [facility] Phosphatase U/L [facility]S ALT 28 0 - 50 [facility] U/L [facility] AST 24 0 - 45 [facility] U/L [facility] Specimen Anatomical Collection Method Collection Time Receive d Time (Source) Location / / Volume Laterality Blood specimen 01/14/2013 2:44 PM 013 4:25 (specimen) ROTARY DRILL RIG OPERATOR PM ROTARY DRILL RIG OPERATOR Charan Salazar MD LAB - BLOOD ORDERABLES Performing Organization Address City/State/ZIP Code Phon e Number [facility] [address] [place] [address] [facility] documented in this encounter Visit Diagnoses Diagnosis Inflammatory bowel disease (Crohn's dise ase) (H) - Primary Regional enteritis of unspecified site documented in this encounter Care Teams Overhauler Relationship Specialty Start Date End Date Edison Tam MD PCP - General Family Practice 09/21/11 07/22/[address] [place] [id number] documented as of this encounter
--- OUTSIDE RECORDS SUMMARY | 2021-10-26 13:37 | XMS_ITS | Encounter Summary ---
:1955 Author Organization [place] Address [address] [place] [address] Care Team Providers Name Role Phone Edison Tam MD Primary Care Provider Reason for Visit Reason Onset Date Comments Refill Request 02/04/2013 Ropinirole Encounter Details Date Type Department Care Team Description 02/04/2013 Refill [facility], Primary Edison Tam Refill Request Care Center MD Marcia (Ropinirole) 3rd Floor, Clinic 3A [id number] [place] [address] [place] [address] Social History Tobacco Use Types [...] (RLS) documented in this encounter Care Teams Geoscience Technician Relationship Specialty Start Date End Date Edison Tam MD PCP - General Family Practice 09/21/11 07/22/[address] [address] documented as of this encounter
--- OUTSIDE RECORDS SUMMARY | 2021-10-26 13:37 | XMS_ITS | Encounter Summary ---
:1955 Author Organization [place] Address [address] [place] [address]. [place] [address] Care Team Providers Name Role Phone Edison Tam MD Primary Care Provider Encounter Details Date Type Department Care Team Description 01/28/2013 Orders Only [facility] Charan Salazar MD Crohn's disease (H); [address] Inflammatory bowel disease (Crohn's dise ase) (H) Laboratory [place], [place] [address] [facility] [address] [place], [place] [phone] (Wo rk) [phone] Social History Tobacco Use [...] 10:32 Resul ts for this TEST AM [employer] procedure are i n the results section. INR Routine 01/28/2013 10:32 Inflammatory bowel Resul ts for this AM [employer] disease (Crohn's procedure a re in disease) (H) the results section. PARTIAL THROMBOPLASTIN Routine 01/28/2013 10:32 Inflammatory b owel Results for this TIME AM [employer] disease (Crohn's procedure a re in disease) (H) the results section. HEPATIC FUNCTION PANEL Routine 01/28/2013 10:32 Inflammatory b owel Results for this AM [employer] disease (Crohn's procedure a re in disease) (H) the results section. FOLIC ACID RBC Routine 01/28/2013 10:32 Crohn's disease (H) Re sults for this AM [employer] procedure are i n the results section. FOLATE Routine 01/28/2013 10:32 Crohn's disease (H) Resu lts for this AM [employer] procedure are i n the results section. documented in this encounter Results [employer] Interactive Miscellaneous Test (01/28/2013 10:32 AM [employer]) [facility] Method Time Signature Result SEE NOTE [facility] (Note) TUBAC Test name ?Result ?? Units ??RefIntvl CAMPUS LABS Folate, RBC ? See Note ?ng/m L 280-903 RBC FOLATE result is greater than 1113 ng/ml. INTERPRETIVE INFORMATION: Folate, RBC Effective January 19 ??2012 Platform change from Siemens 9Youaur to [employer] DxI REFERENCE INTERVAL CHANGE Due to a reagent kit potash flaker extended backorder, an alternate FDA-approved kit has been validated and implemented by [employer] The following Reference Interval applies to this result. Reference Interval: Greater than or equal to 366 ng/mL = Normal Performed by [facility], [address] [facility] [place] [place] [address] [email or web address], Grant Akins MD, Lab. Director Test Name RBCFOL [facility] LABS Send Outs 70,385 Critical access hospital Code [facility] Send Outs Red Blood Cells Critical access hospital Specimen [facility] Specimen Anatomical Collection Method Collection Time Receive d Time (Source) Location / / Volume Laterality 01/28/2013 10:32 01/28/2013 AM [employer] 10:37 AM [employer] Charan Salazar MD LAB - BLOOD ORDERABLES Performing Organization Address City/[facility]/ZIP Code Phon e Number [facility] [address] [place], [place] [phone] [place] [address] LABS Partial thromboplastin time (01/28/2013 10:32 AM [employer]OUNDER) P athologist Signature PTT 34 22 - 37 sec [facility] LABS Specimen Anatomical Collection Method Collection Time Receive d Time (Source) Location / / Volume Laterality Blood specimen 01/28/2013 10:32 3 (specimen) AM [employer] 10:37 AM [employer] Charan Salazar MD LAB - BLOOD ORDERABLES Performing Organization Address City/[facility]/ZIP Code Phon e Number [facility] [address] [place], [place] [phone] [place] [address] LABS INR (01/28/2013 10:32 AM [employer]) P athologist Signature INR 0.96 0.86 - 1.14 [facility] LABS Specimen Anatomical Collection Method Collection Time Receive d Time (Source) Location / / Volume Laterality Blood specimen 01/28/2013 10:32 3 (specimen) AM [employer] 10:37 AM [employer] Charan Salazar MD LAB - BLOOD ORDERABLES Performing Organization Address City/[facility]/ZIP Code Phon e Number [phone] [place] [address] LABS Hepatic panel (01/28/2013 10:32 AM [employer]) P athologist Signature Bilirubin 0.0 0.0 - 0.3 [facility] Conjugated mg/dL [facility] LABS Bilirubin Delta 0.0 0.0 - 0.4 [facility] mg/dL [facility] Bilirubin Total 0.2 0.2 - 1.3 [facility] mg/dL [facility]S Albumin 4.1 3.3 - 4.9 [facility] g/dL [facility] Protein Total 6.9 6.8 - 8.8 [facility] g/dL [facility]S Alkaline 74 40 - 150 [facility] Phosphatase U/L [facility] LABS ALT 34 0 - 50 U/L [facility] LABS AST 27 0 - 45 U/L [facility] LABS Specimen Anatomical Collection Method Collection Time Receive d Time (Source) Location / / Volume Laterality Blood specimen 01/28/2013 10:32 3 (specimen) AM [employer] 10:37 AM [employer] Charan Salazar MD LAB - BLOOD ORDERABLES Performing Organization Address City/[facility]/ZIP Code Phon e Number [facility] [address] [place] [address] [facility] LABS Folic acid RBC (01/28/2013 10:32 AM [employer]ER) Patholo gist Method Time Signature Folic Acid Test sent 280 - 231 [facility] RBC to [place]. /[facility] See [facility] LABS result. Specimen Anatomical Collection Method Collection Time Receive d Time (Source) Location / / Volume Laterality Blood specimen 01/28/2013 10:32 3 (specimen) AM [employer] 10:37 AM [employer] Charan Salazar MD LAB - BLOOD ORDERABLES Performing Organization Address City/[facility]/ZIP Code Phon e Number [facility] [address] [place] [address] [facility] LABS Folate (01/28/2013 10:32 AM [employer]ER) P athologist Signature Folate >24.0 >3.3 ng/mL [facility] Ref range 3.00 to 17.00 ng/dL. CAMPUS LABS Specimen Anatomical Collection Method Collection Time Receive d Time (Source) Location / / Volume Laterality Blood specimen 01/28/2013 10:32 3 (specimen) AM [employer] 10:37 AM [employer] Charan Salazar MD LAB - BLOOD ORDERABLES Performing Organization Address City/[facility]/ZIP Code Phon e Number [facility] [address] [place] [address] [facility] documented in this encounter Visit Diagnoses Diagnosis Crohn's disease (H) Regional enteritis of unspecified site Inflammatory bowel disease (Crohn's dise ase) (H) Regional enteritis of unspecified site documented in this encounter Care Teams Donkey Engine Firer/Fireman Relationship Specialty Start Date End Date Edison Tam MD PCP - General Family Practice 09/21/11 07/22/[address] [address] documented as of this encounter
--- OUTSIDE RECORDS SUMMARY | 2021-10-26 13:37 | XMS_ITS | Encounter Summary ---
:1955 Author Organization [place] Address [address] [place] [address] Care Team Providers Name Role Phone Edison Tam MD Primary Care Provider Reason for Visit Reason Onset Date Comments Other 12/01/2012 syringes Encounter Details Date Type Department Care Team Description 12/01/2012 Telephone Medicine GI - 1E Charan Salazar MD Other (syringes ) [address] [address] 1st Floor, [facility] [address] [place] [address] [place] [address] Social History Tobacco Use Types [...] on filedocumented in this encounter Care Teams Take Away Worker Relationship Specialty Start Date End Date Edison Tam MD PCP - General Family Practice 09/21/11 07/22/14 909 [facility] 4 [place] [address] documented as of this encounter
--- OUTSIDE RECORDS SUMMARY | 2021-10-26 13:37 | XMS_ITS | Encounter Summary ---
:1955 Author Organization [place] Address [address] [place] [address] Care Team Providers Name Role Phone Edison Tam MD Primary Care Provider Encounter Details Date Type Department Care Team Description 04/15/2013 Orders Only Medicine GI - 1E Charan Salazar MD Crohn's disease (H) [address] (Primary Dx) [place], [place] 1st Floor, Clinic [address] [place] [address] [place] [address] Social History Tobacco Use Types [...] site documented in this encounter Care Teams Construction Inspector Relationship Specialty Start Date End Date Edison Tam MD PCP - General Family Practice 09/21/11 07/22/[address] [address] documented as of this encounter
--- OUTSIDE RECORDS SUMMARY | 2021-10-26 13:37 | XMS_ITS | Encounter Summary ---
:1955 Author Organization [place] Address [address] [place] [address] Care Team Providers Name Role Phone Edison Tam MD Primary Care Provider Reason for Visit Reason Onset Date Comments Refill Request 11/27/2012 Ptasium Chloride Encounter Details Date Type Department Care Team Description 11/27/2012 Refill [facility], Primary Corky Sainz efill Request ([facility] Chloride) 3rd Floor, Clinic [address] [phone] Social History Tobacco Use Types Packs/Day Years [...] Primary documented in this encounter Care Teams Air Brake Mechanic Relationship Specialty Start Date End Date Edison Tam MD PCP - General Family Practice 09/21/11 07/22/14 909 [facility] 4 [place], [place] [address] documented as of this encounter
--- OUTSIDE RECORDS SUMMARY | 2021-10-26 13:37 | XMS_ITS | Encounter Summary ---
:1955 Author Organization [place] Address [address] [place] [address] Care Team Providers Name Role Phone Edison Tam MD Primary Care Provider Reason for Visit Reason Onset Date Comments Refill Request 12/15/2012 propranolol Encounter Details Date Type Department Care Team Description 12/15/2012 Refill [facility], Primary Edison Tam Refill Request Care Center MD Marcia (propranolol) 3rd Floor, Clinic 3A [address] [place] [address] [place] [address] Social History Tobacco Use Types [...] dennis documented in this encounter Care Teams Substance Abuse Prevention Coordinator Relationship Specialty Start Date End Date Edison Tam MD PCP - General Family Practice 09/21/11 07/22/[address] [phone] documented as of this encounter
--- OUTSIDE RECORDS SUMMARY | 2021-10-26 13:37 | XMS_ITS | Encounter Summary ---
:1955 Author Organization [place] Address [facility] [place] [address] Care Team Providers Name Role Phone Edison Tam MD Primary Care Provider Reason for Visit Reason Comments Consult Bilateral SI Joint pain, ons et 1970 - has been on prednisone since. Encounter Details Date Type Department Care Team Description 04/10/2013 Office Visit [facility] Nabor Villanueva Sacroiliac joint pain (Prima ry Dx); [facility] Jimbo del rosario MD LBP (low back pain); [address] Crohn's disease of both small and large intestine with complication (H) 1st Floor, [address] [place], [place] [address] [address] [place] [address] Social History Tobacco Use Types [...] 50.8 kg (112 lb) 04/10/2013 8:39 AM [employer] Height 157.5 cm (5' 2) 04/10/2013 8:39 AM [employer] Body Mass Index 20.49 04/10/2013 8:39 AM [employer] documented in this encounter Progress Notes Nabor [...] on file Social History Narrative Moved to [place] from [facility]. [facility] HABITS: She's a nonsmoker. She normally [...] FOR DME ??? multivitamin (THERA-PLUS) LIQD ??? [id number] ??? Carboxymethylcellulose Sodium (REFRESH TEARS OP) ??? fluorouracil (EFUDEX) 5 % cream ??? cyanocobalamin 1000 MCG/ML injection ??? guaiFENesin (MUCINEX) 600 MG 12 hr tablet ??? Menthol, Topical Analgesic, (ICY HOT EX) ??? Calcium Citrate-Vitamin D (CITRACAL + D PO) No current facility-administered medications for this visit. Facility-Administered Medications Ordered in Other Visits Medication ??? [COMPLETED] Tdap (vaejvmz-ityqawwfik-snzva pertussis) (ADACEL) vaccine for Adults or Adolescents0.5 [...] has no further questions. Nabor Villa MD [employer] documented in this encounter Nursing Notes 04/10/2013 8:30 AM CST >> FLACA [place] Apr 10, 2013 8:44 AM Reason For Visit: Patient presents with: Consult - Bilateral SI Joint pain, onset 1969 - has been on prednisone since. Senior Enterprise Architect? No Occupation Disabled. Currently working? No. 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
--- OUTSIDE RECORDS SUMMARY | 2021-10-26 13:37 | XMS_ITS | Encounter Summary ---
:1955 Author Organization [place] Address [address] [place] [address] Care Team Providers Name Role Phone Edison Tam MD Primary Care Provider Reason for Visit Reason Onset Date Comments Refill Request 04/15/2013 Encounter Details Date Type Department Care Team Description 04/15/2013 Refill Diabetes and Endocri ne Harriett Lew RN Refill Request 6th Floor, Clinic [address] [phone] Social History Tobacco Use [...] hypothyroidism documented in this encounter Care Teams Tubing Mill Operator Relationship Specialty Start Date End Date Edison Tam MD PCP - General Family Practice 09/21/11 07/22/[address] [address] documented as of this encounter
--- OUTSIDE RECORDS SUMMARY | 2021-10-26 13:37 | XMS_ITS | Encounter Summary ---
:1955 Author Organization [place] Address [facility] [place] [address] Care Team Providers Name Role Phone Edison Tam MD Primary Care Provider Reason for Visit Reason Comments Laceration L index finger laceration. D OI 04/09/13. Encounter Details Date Type Department Care Team Description 04/13/2013 Office Visit [facility] Marisol Hathaway Finger laceration, Marty MD Patricia initial encounter [facility] tremaine [facility] (Primary Dx) 1st Floor, [address] [facility] [address] [place] [address] [place], [place] [phone] [address] (Wo rk) Social History Tobacco Use Types [...] 50.8 kg (112 lb) 04/13/2013 3:46 PM T[employer] NUT GROWER Height 157.5 cm (5' 2) 04/13/2013 3:46 PM [employer] Body Mass Index 20.49 04/13/2013 3:46 PM TUNG NUT GROWER documented in this encounter Progress Notes Marisol [...] return to that activity. cc:Edison Tam MD NUT GROWER documented in this encounter Nursing Notes 04/13/2013 3:50 PM CST >> VASYL ALBRECHT RN katya Apr 14, 2013 5:40 AM Teaching Flowsheet Relevant Diagnosis: Left index laceration Teaching Topic: Left index digital nerve repair Person(s) involved in teaching: Patient Motivation Level: Asks Questions: Yes Eager to Learn: Yes Cooperative: Yes Receptive (willing/able to accept information): Yes Any cultural factors/latter-day beliefs that may influence understanding or compliance? [...] rimary documented in this encounter Care Teams Mechanism Inspector Relationship Specialty Start Date End Date Edison Tam MD PCP - General Family Practice 09/21/11 07/22/[address] [address] documented as of this encounter
--- OUTSIDE RECORDS SUMMARY | 2021-10-26 13:37 | XMS_ITS | Encounter Summary ---
:1955 Author Organization [place] Address [address] [place] [address] Care Team Providers Name Role Phone Edison Tam MD Primary Care Provider Reason for Visit Reason Onset Date Comments Pt. Information/instruction 12/03/2012 Encounter Details Date Type Department Care Team Description 12/03/2012 Telephone Outpatient Interventional Carmita Kemp, PtJuan and Diagnostic Rafael penaloza RN Information/instructio Mireya [address],Clinic [address] [place] [address] 88 [place], [place] [address] Social History Tobacco Use Types [...] no blood thinners. Instructed to bring a hire car driver. documented in this encounter Plan of Treatment Not on filedocumented as of this encounter Visit Diagnoses Not on filedocumented in this encounter Care Teams Bung Remover Relationship Specialty Start Date End Date Edison Tam MD PCP - General Family Practice 09/21/11 07/22/14 909 [facility] 4 [place], [place] [address] documented as of this encounter
--- OUTSIDE RECORDS SUMMARY | 2021-10-26 13:37 | XMS_ITS | Encounter Summary ---
:1955 Author Organization [place] Address [address] [place] [address] Care Team Providers Name Role Phone Edison Tam MD Primary Care Provider Reason for Visit Reason Onset Date Comments Clinic Care Coordination - Follow-up 04/15/2013 Hyd rocortisone Encounter Details Date Type Department Care Team Description 04/15/2013 Telephone Medicine GI - 1E Charan Salazar MD Clinic Care [address] Coordination - Building [place], [place] Follow-up 1st Floor, [facility] 1E [address] (Hydrocortisone) [address] [place] [address] [place] [address] Social History Tobacco Use Types [...] hydrocortisone 100 mg IV prior to surgery. SCIENTIST documented in this encounter Plan of Treatment Not on filedocumented as of this encounter Visit Diagnoses Not on filedocumented in this encounter Care Teams Supervisor [employer]ation Relationship Specialty Start Date End Date Edison Tam MD PCP - General Family Practice 09/21/11 07/22/14 909 [facility] 4 [place] [address] documented as of this encounter
--- OUTSIDE RECORDS SUMMARY | 2021-10-26 13:37 | XMS_ITS | Encounter Summary ---
:1955 Author Organization [place] Address [address] [place] [address] Care Team Providers Name Role Phone Edison Tam MD Primary Care Provider Reason for Visit Reason Onset Date Comments Results 04/07/2013 Encounter Details Date Type Department Care Team Description 04/07/2013 Telephone [facility], Primary Care Edison Antoine MD Results Center [address] [place] [address] 4 3rd Floor, Clinic 3A [place], [place] [phone] [place] [address] [place] [address] [phone] Social History Tobacco Use [...] Edison Tam MD - 04/09/2013 12:35 PM SEGMENT ASSEMBLER Noted. Keep appointment tomorrow. Edison Dyer ENT ASSEMBLER Telephone Encounter - Corky Sainz RN - [...] left) will give out when she stands. ENT ASSEMBLER Telephone Encounter - Corky Sainz RN - 04/08/2013 3:23 PM CST Left message. Corky Sainz RN 04/08/2013 3:23 PM ENT ASSEMBLER Telephone Encounter - Edison Tam MD - 04/07/2013 3:36 PM CST [...] Sed Rate 5 0 - 30 mm/h [phone] (home) I tired to call at 3:40pm. Busy. Recommend Discontinue Vitamin D 41903 IU twice weekly and switch to Vitamin [...] plans to see ortho spine. Edison Tam ENT ASSEMBLER documented in this encounter Plan of Treatment Not on filedocumented as of this encounter Visit Diagnoses Diagnosis Osteopenia - Primary Disorder of bone and cartilage, unspecif ied documented in this encounter Care Teams Pencil Sorter Relationship Specialty Start Date End Date Edison Tam MD PCP - General Family Practice 09/21/11 07/22/[address] [address] documented as of this encounter
--- OUTSIDE RECORDS SUMMARY | 2021-10-26 13:37 | XMS_ITS | Encounter Summary ---
:1955 Author Organization [place] Address [address] [place] [address] Care Team Providers Name Role Phone Edison Tam MD Primary Care Provider Reason for Visit Reason Onset Date Comments Refill Request 01/01/2013 K-cl Encounter Details Date Type Department Care Team Description 01/01/2013 Refill [facility], Primary Edison Tam, Refill Request (K-cl) Care Center 3rd Floor, Clinic [address] [place] [address] [place] [address] Social History Tobacco Use Types [...] Primary documented in this encounter Care Teams On Site Wastewater Systems Technician Relationship Specialty Start Date End Date Edison Tam MD PCP - General Family Practice 09/21/11 07/22/[address] [place] [address] 4 [place] [address] documented as of this encounter
--- OUTSIDE RECORDS SUMMARY | 2021-10-26 13:37 | XMS_ITS | Encounter Summary ---
:1955 Author Organization [place] Address [facility] [place] [address] Care Team Providers Name Role Phone Edison Tam MD Primary Care Provider Reason for Visit Reason Onset Date Comments Pt. Information/instruction 12/10/2012 Encounter Details Date Type Department Care Team Description 12/10/2012 Telephone [facility] Carmita Kemp P t. [place] PMR RN Information/instructio [facility] 1st Floor, [facility] [address] [place], [place] [phone] Social History Tobacco Use Types Packs/Day [...] no blood thinners. Reminded to bring a driver license agent. documented in this encounter Plan of Treatment Not on filedocumented as of this encounter Visit Diagnoses Not on filedocumented in this encounter Care Teams Private Client Advisor Relationship Specialty Start Date End Date Edison Tam MD PCP - General Family Practice 09/21/11 07/22/14 909 [facility] 4 [place] [address] documented as of this encounter
--- OUTSIDE RECORDS SUMMARY | 2021-10-26 13:37 | XMS_ITS | Encounter Summary ---
:1955 Author Organization [place] Address [address] [place] [address] Care Team Providers Name Role Phone Edison Tam MD Primary Care Provider Reason for Visit Reason Comments Consult NEW PATIENT- PARMINDER'S,OST EOPOROSIS Encounter Details Date Type Department Care Team Description 12/03/2012 Office Visit Diabetes and Laisha Moraes Crohn's dis ease of both small and large intestine with complication (H) (Primary Dx); Endocrine A, Osteoporosis; 6th Floor, Clinic [address] [place] [address] Parminder's thyroiditis; Luke Shi [facility] 101 Hypothyroidism Building [address] [phone] [facility] 88 (Work) [place], [place] [phone] [address] (Fax) [phone] Social History Tobacco Use Types Packs/Day Years [...] you by mail or be available on [employer]. Depending on which lab tests your doctor has ordered will determine how quickly your results will become available. The standard time for processing lab work is 2-7 days. Please note that some lab results may take up to two weeks from the date of your lab draw to process. If you are a [employer] user, your lab results will be available to view once the Doctor has reviewed and signed off on them. If you have any questions or concerns, please don't hesitate to call our clinic at: . For URGENT issues, please dial , and ask to speak with the Research Group Director On-Call. =======[facility] Clinic Medication Refill Information======= [...] ulcer. She then got IVReclast (delivered in [place]), stopped about 2 years [...] by mouth daily. ??? vitamin D (ERGOCALCIFEROL) 82553 UNIT capsule Take 50,000 Units by mouth. [...] Take 5 mLs by mouth daily. ??? FZGW-IEJ-DNCUROX Might-a mins spectrum once daily (Digestive Enzymes) [...] for DM 2 cans/day; Moved here from [place] about 1.5 years ago. Both parents were [...] by mouth daily. ??? vitamin D (ERGOCALCIFEROL) 08956 UNIT capsule Take 50,000 Units by mouth. [...] Take 5 mLs by mouth daily. ??? 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 1. jail Steroids use: She has developed a secondary [...] Patient is aware of the consequences of termite inspector therapy wit Steroids along with the possible [...] mg) Jitendra Cuello MD Endocrinology Fellow (F1) [phone] documented in this encounter Nursing Notes 12/03/2012 [...] Signature T4 Free 1.25 0.70 - 1.85 [facility] ng/dL CAMPUS LABS Specimen Anatomical Collection Method Collection Time Receive d Time (Source) Location / / Volume Laterality Blood specimen 12/03/2012 5:00 PM 013 5:01 (specimen) CDT PM CDT Laisha Moraes MD LAB - BLOOD ORDERABLES Performing Organization Address City/[facility]/ZIP Code Phon e Number [facility] [address] LABS TSH (12/03/2012 5:00 PM CDT) athologist Signature TSH 0.86 0.4 - 5.0 [facility] mU/L [place] LABS Specimen Anatomical Collection Method Collection Time Receive d Time (Source) Location / / Volume Laterality Blood specimen 12/03/2012 5:00 PM 013 5:01 (specimen) CDT PM CDT Laisha Moraes MD LAB - BLOOD ORDERABLES Performing Organization Address City/State/ZIP Code Phon e Number [facility] [address] LABS Parathormone intact (12/03/2012 5:00 PM CDT) athologist Signature Parathyroid 32 12 - 72 [facility] Hormone Intact pg/mL [facility] LABS Specimen Anatomical Collection Method Collection Time Receive d Time (Source) Location / / Volume Laterality Blood specimen 12/03/2012 5:00 PM 013 5:01 (specimen) CDT PM CDT Laisha Moraes MD LAB - BLOOD ORDERABLES Performing Organization Address City/[facility]/ZIP Code Phon e Number [facility] [address] LABS Calcium (12/03/2012 5:00 PM CDT) athologist Signature Calcium 9.1 8.5 - 10.4 [facility] mg/dL CAMPUS LABS Specimen Anatomical Collection Method Collection Time Receive d Time (Source) Location / / Volume Laterality Blood specimen 12/03/2012 5:00 PM 013 5:01 (specimen) CDT PM CDT Laisha Moraes MD LAB - BLOOD ORDERABLES Performing Organization Address City/State/ZIP Code Phon e Number [facility] [address] [place] [address] [facility] LABS documented in this encounter Visit Diagnoses Diagnosis Crohn's disease of both small and large intestine with complication (H) - Primary 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
--- OUTSIDE RECORDS SUMMARY | 2021-10-26 13:37 | XMS_ITS | Encounter Summary ---
:1955 Author Organization [place] Address [address] [place] [address] Care Team Providers Name Role Phone Edison Tam MD Primary Care Provider Encounter Details Date Type Department Care Team Description 01/07/2013 Orders Only Medicine GI - 1E Charan Salazar MD Candidiasis of mouth [place] [address] (Primary Dx) [place], [place] 1st Floor, Clinic [address] [place] [address] [place] [address] Social History Tobacco Use Types [...] Primary documented in this encounter Care Teams Medical Social Worker Relationship Specialty Start Date End Date Edison Tam MD PCP - General Family Practice 09/21/11 07/22/[address] [address] documented as of this encounter
--- OUTSIDE RECORDS SUMMARY | 2021-10-26 13:37 | XMS_ITS | Encounter Summary ---
:1955 Author Organization [place] Address [address] [place] [address] Care Team Providers Name Role Phone Edison Tam MD Primary Care Provider Encounter Details Date Type Department Care Team Description 11/19/2012 Orders Only [facility] C enter Low back pain [facility] 1st Floor, Clinic 1D Mail Code [address] [place], [place] [address] Social History Tobacco Use Types [...] Lumbago documented in this encounter Care Teams Material Control Specialist Relationship Specialty Start Date End Date Edison Tam MD PCP - General Family Practice 09/21/11 07/22/14 909 [facility] 4 [place] [address] documented as of this encounter
--- OUTSIDE RECORDS SUMMARY | 2021-10-26 13:37 | XMS_ITS | Encounter Summary ---
:1955 Author Organization [place] Address [address] [place] [address] Care Team Providers Name Role Phone Edison Tam MD Primary Care Provider Reason for Visit Reason Onset Date Comments Other 11/20/2012 PA-MTX Encounter Details Date Type Department Care Team Description 11/20/2012 Telephone Medicine GI - 1E Charan Salazar MD Other (PA-MTX) [place] [phone] [place] [address] Floor, [facility] [address] [place] [address] [place] [phone] Social History Tobacco Use Types Packs/Day [...] approved by [employer] on 11/12/2012 through 11/10/2013. [facility] pharmacy only has 10 ml vials [...] on filedocumented in this encounter Care Teams Net Sql Developer Relationship Specialty Start Date End Date Edison Tam MD PCP - General Family Practice 09/21/11 07/22/[address] [address] documented as of this encounter"
--- OUTSIDE RECORDS SUMMARY | 2021-10-26 13:37 | XMS_ITS | Encounter Summary ---
:1955 Author Organization [place] Address [address] [place] [address] Care Team Providers Name Role Phone Edison Tam MD Primary Care Provider Reason for Visit Reason Comments Other Encounter Details Date Type Department Care Team Description 04/15/2013 Telephone Diabetes and Endocri ne Stevenson White RN 6th Floor, Clinic [place] [phone] Social History Tobacco Use Types Packs/Day [...] Surgery requesting suggestion for surgery steroid coverage IX INSPECTOR documented in this encounter Plan of Treatment Not on filedocumented as of this encounter Visit Diagnoses Not on filedocumented in this encounter Care Teams Obgyn Nurse Relationship Specialty Start Date End Date Edison Tam MD PCP - General Family Practice 09/21/11 07/22/14 908 [facility] 4 [place] [address] documented as of this encounter
--- OUTSIDE RECORDS SUMMARY | 2021-10-26 13:37 | XMS_ITS | Encounter Summary ---
:1955 Author Organization [place] Address [address] [facility] [place] [address] Care Team Providers Name Role Phone Edison Tam MD Primary Care Provider Reason for Referral - Closed Specialty Diagnoses / Procedures Referred By Contact Refer red To Contact Diagnoses Disorders of sacrum Lumbago Nate Laughlin MD [place] [facility] [address] [place] [address] Referral ID Status Reason Start Date Expiration Date Visits Requ ested Visits Authorized [id number] Closed 11/25/2012 05/24/2013 1 1 Reason for Visit Reason Comments Back Pain Bilateral SI joint pain, L > R. Has noticed for years. Encounter Details Date Type Department Care Team Description 11/25/2012 Office Visit [facility] Nate Laughlin isorders of sacrum (Primary Dx); [place] [facility] MD Tyrell Lumbago [facility] 1st Floor, [place] [address] [place] [address] [phone] Social History Tobacco Use Types Packs/Day Years [...] in this encounter Patient Instructions Patient InstructionsNate Laughlin MD - 11/25/2012 9:50 AM CDT Patient Information [facility] Location: Clinic [address] [place] [address] Special Instructions/Precautions: 1. No need to fast [...] to talk to your primary doctor or drawing machine operator before you stop the above medications 3. If you are allergic to contrast, lidocaine/novocaine, or steroids please inform us in advance. 4. You will need a milk pickup driver to bring you home as the [...] your appointment please call Directions to the [place] From the north: 1. Take [address]. 2. Take [address] to [place]. 3. Take the [place] exit and merge to the far left laura. 4. Turn left on [address]. 5. Turn right on [address]. 6. Turn left on [address]. The Patient/Visitor parking ramp will be on your right. From the south: 1. Take [address] north to [address]. 2. Take [address] to [place]. 3. Take the [place] exit and merge to the far left laura. 4. Turn left on [address]. 5. Turn right on [address]. 6. Turn left on [address]. The Patient/Visitor parking ramp will be on your right. From the east or west: 1. Take [address] (east or west) to [place]. 2. Take the [place] exit and merge to the far left laura. 3. Turn left on [address]. 4. Turn right on [address]. 5. Turn left on [address]. The Patient/Visitor parking ramp will be on your right. Washing And Screening Plant Supervisor parking is available in front the [facility] documented in this encounter Progress Notes Robert Munguia MD - 11/25/2012 11:07 AM CDT Physician requesting consultation: Dr. Edison Tam CC: Sacroiliac joint pain, bilateral HISTORY OF PRESENT ILLNESS: Maria E Coley is a very pleasant 56-year-old woman who presents todaywith chronic bilateral SI joint pain. She states that the pain is stable but has gone on for years. She moved from [place] approximately 2 years ago and prior to that time had been getting SI joint in [facility] annually and this provided good relief throughout [...] Type Priority Associated Diagnoses Order S rosie [facility] - inj, Imaging Routine Disorders of sacrum Or dered: 11/25/2012 sacroiliac joint Scheduled Referrals Name Type Priority Associated Diagnoses Order S rosie [facility] PT, HAND, AND Referral Routine Disorders of s acrum Ordered: 11/25/2012 CHIROPRACTIC REFERRAL Lumbago documented as of this encounter Visit Diagnoses Diagnosis Disorders of sacrum - Primary Lumbago documented in this encounter Care Teams Ic Designer Custom Relationship Specialty Start Date End Date Edison Tam MD PCP - General Family Practice 09/21/11 07/22/[address] [place] [address] 4 [place] [address] documented as of this encounter
--- OUTSIDE RECORDS SUMMARY | 2021-10-26 13:38 | XMS_ITS | Encounter Summary ---
:1955 Author Organization [place] Address [address] [place] [address] Care Team Providers Name Role Phone Edison Tam MD Primary Care Provider Reason for Visit Reason Onset Date Comments Clinical Product Navigator - Follow-up 11/11/2012 Encounter Details Date Type Department Care Team Description 11/11/2012 Telephone Medicine GI - 1E [facility]an [facility] Navigator - Follow-up [place], [place] 1st Floor, [facility] [address] [place] [address] [place] [address] Social History Tobacco Use Types [...] her MTX and folic acid to the [facility] in [facility] today. I discussed with pt that would [...] on filedocumented in this encounter Care Teams Job Printer Apprentice Relationship Specialty Start Date End Date Edison Tam MD PCP - General Family Practice 09/21/11 07/22/[address] [address] documented as of this encounter
--- OUTSIDE RECORDS SUMMARY | 2021-10-26 13:38 | XMS_ITS | Encounter Summary ---
:1955 Author Organization [place] Address [address] [place] [address] Care Team Providers Name Role Phone Edison Tam MD Primary Care Provider Reason for Visit Reason Onset Date Comments Refill Request 10/09/2012 K-cl Encounter Details Date Type Department Care Team Description 10/09/2012 Refill [facility], Primary Edison Tam, Refill Request (K-cl) Care Center 3rd Floor, Clinic [address] [place] [address] [place] [address] Social History Tobacco Use Types [...] no showed for appt 10/06/12. Thank you, Edison Tam Telephone Encounter - Jenae Hernandez RN - 10/09/2012 3:17 PM CDT Last office visit 06/05/12, last Rx 04/07/12. documented in this encounter Plan of Treatment Not on filedocumented as of this encounter Visit Diagnoses Diagnosis Hypopotassemia - Primary documented in this encounter Care Teams Wool Sampler Relationship Specialty Start Date End Date Edison Tam MD PCP - General Family Practice 09/21/11 07/22/[address] [address] documented as of this encounter
--- OUTSIDE RECORDS SUMMARY | 2021-10-26 13:38 | XMS_ITS | Encounter Summary ---
:1955 Author Organization [place] Address [address] [place] [address] Care Team Providers Name Role Phone Edison Tam MD Primary Care Provider Reason for Visit Reason Onset Date Comments Appointment 07/31/2012 Encounter Details Date Type Department Care Team Description 07/31/2012 Telephone Medicine GI - 1E Charan Salazar MD Appointment [address] [address] 1st Floor, [address] [place] [address] [place] [phone] Social History Tobacco Use Types Packs/Day [...] on filedocumented in this encounter Care Teams Paving Foreman Relationship Specialty Start Date End Date Edison Tam MD PCP - General Family Practice 09/21/11 07/22/14 909 [facility] 4 [place] [address] documented as of this encounter
--- OUTSIDE RECORDS SUMMARY | 2021-10-26 13:38 | XMS_ITS | Encounter Summary ---
:1955 Author Organization [place] Address [address] [place] [address] Care Team Providers Name Role Phone Edison Tam MD Primary Care Provider Reason for Visit Reason Onset Date Comments Pre Visit Planning - Done 10/02/2012 Encounter Details Date Type Department Care Team Description 10/02/2012 PRE VISIT [facility], Primary Edison Tam Pre Visit Planning - Care Center MD Marcia Done 3rd Floor, Clinic [address] [place] [id number] [place] [address] [place], [place] (Work) [address] [phone] Social History Tobacco Use Types Packs/Day Years [...] filedocumented in this encounter Care Teams Independent Living Instructor Relationship Specialty Start Date End Date Edison Tam MD PCP - General Family Practice 09/21/11 07/22/[address] [address] documented as of this encounter
--- OUTSIDE RECORDS SUMMARY | 2021-10-26 13:38 | XMS_ITS | Encounter Summary ---
:1955 Author Organization [place] Address [address] [place] [address] Care Team Providers Name Role Phone Edison Tam MD Primary Care Provider Encounter Details Date Type Department Care Team Description 11/19/2012 Orders Only [facility] C enter Positive RAIMUNDO (antinuclear Radhika-Wangensteen antibody ) Building 1st Floor, Clinic 1D Mail Code 152 [place], [place] [address] Social History Tobacco Use Types [...] findings documented in this encounter Care Teams Pan Washer Hand Relationship Specialty Start Date End Date Edison Tam MD PCP - General Family Practice 09/21/11 07/22/[address] [address] documented as of this encounter
--- OUTSIDE RECORDS SUMMARY | 2021-10-26 13:38 | XMS_ITS | Encounter Summary ---
:1955 Author Organization [place] Address [facility]0 [place] [address] Care Team Providers Name Role Phone Edison Tam MD Primary Care Provider Reason for Visit Auth/Cert - Closed Specialty Diagnoses / Procedures Referred By Contact Refer red To Contact Gastroenterology Diagnoses Regional enteritis [facility] Endoscopy Procedures COLONOSCOPY COMBINED ESOPHAGOSCOPY, GASTROSCOPY, DUODENOSCOPY (EGD) 500 [place] [address] Phone: Referral ID Status Reason Start Date Expiration Date Visits Requ ested Visits Authorized [id number] Closed 1 1 Encounter Details Date Type Department Care Team Description 08/26/2012 Surgery [facility] Jolanta Velázquez MD SIGMOIDOSCOPY, Endoscopy [address] [facility] FLEXIBLE, WITH BIOPSY 500 [place] [address] [phone] (Wo rk) Surgery Details Date/Time Status Location [...] tablet mouth At Bedtime buPROPion (WELLBUTRIN SR) 150 Take 150 mg [...] tablet by 0 0 09/08/2012 mouth daily. multivitamin (THERA-PLUS) Take 5 mLs by 0 05/09/2017 LIQD mouth daily. ORDER FOR DMEIndications: B12 Injection 12 each 0 201204/27/2013 deficiency Supplies for Vitamin B12: 3cc syringes w/ 27 gauge needles, 1 inch length [id number] Might-a mins 0 2013 spectrum once daily [...] vitamin D (ERGOCALCIFEROL) Take 50,000 0 12/03/2012 22599 UNIT capsule Units by mouth. 2 times [...] Component Value Ref Test Analysis Performed At [facility] [employer] Method Time Signature Copath Report Patient Name: MARIA E COLEY MR#: [id number] Specimen #: [id number] Collected: 08/26/2012 Received: 08/26/2012 Reported: 08/27/2012 23:46 [...] Electronically signed out by: Axel Vanegas M.D., [facility] CLINICAL HISTORY: The patient is a [...] Axel Vanegas MD/halley 08/27/2012 TESTING LAB LOCATION: [facility], [address] ?? [phone] COLLECTION SITE: Client: [facility] Location: [facility] (B) Specimen Anatomical Collection Method Collection Time Receive d Time (Source) Location / / Volume Laterality 08/26/2012 2:03 PM 3 5:15 CDT PM CDT Jolanta KENYON - BRIAN Performing Organization Address City/State/ZIP Code Phon e Number [facility] FLEXIBLE SIGMOIDOSCOPY (08/26/2012 12:32 PM CDT) [facility] Method Time Signature Flex Sig [facility] RADIOLOGY [address] [place] [address] [phone] ? End oscopy Department RESULTS Patient Name: [...] res ults. ?- Return to IBD Clinic ([facility]) as previously ?scheduled, will discuss timing for [...] Component Value Ref Test Analysis Performed At [facility] Range Method Time Signature [facility] [place] RADIOLOGY Endoscopy [address] [place] [address] [phone] ? Endoscopy Department RESULTS Patient Name: Maria [...] Intra-procedure documented in this encounter Care Teams Ccna Relationship Specialty Start Date End Date Edison Tam MD PCP - General Family Practice 09/21/11 07/22/14 909 [facility] 4 [place] [address] documented as of this encounter
--- OUTSIDE RECORDS SUMMARY | 2021-10-26 13:38 | XMS_ITS | Encounter Summary ---
:1955 Author Organization [place] Address [address] [place] [address] Care Team Providers Name Role Phone Edison Tam MD Primary Care Provider Encounter Details Date Type Department Care Team Description 11/19/2012 Orders Only [facility] C enter Positive RAIMUNDO (antinuclear Radhika-Wangensteen antibody ) Building 1st Floor, Clinic 1D Mail Code 152 [place], [place] [address] Social History Tobacco Use Types [...] findings documented in this encounter Care Teams Desolderer Relationship Specialty Start Date End Date Edison Tam MD PCP - General Family Practice 09/21/11 07/22/[address] [address] documented as of this encounter
--- OUTSIDE RECORDS SUMMARY | 2021-10-26 13:38 | XMS_ITS | Encounter Summary ---
:1955 Author Organization [facility] Address [address] [place] [address] Care Team Providers Name Role Phone Edison Tam MD Primary Care Provider Reason for Visit Reason Comments Consult Maria E states she is being s een today for a Lupus consultation. Encounter Details Date Type Department Care Team Description 10/29/2012 Office Visit [facility] Adult Rheumatolo gy Ann, Siddhartho, Positive RAIMUNDO (antinuclear an tibody) (Primary Dx); 2nd Floor, Clinic 2A Cardiac murmur Luke Barahona[address] [address] [phone] Social History Tobacco Use Types Packs/Day Years [...] DNA double stranded antibodies ??? DHEERAJ Panel (TECHNICAL BUYER, HENDRICKSON, Scleroderma, SSAB, SSBB); DHEERAJ, Antibodies, Panel [...] discussed with Dr. Juarez. Jayla Dunbar PGY3 [phone] ATTENDING NOTE: I saw and evaluated the [...] had diffuse joint pain and rash. No HEATING REPAIR TECHNICIAN, renal, cardiac, or pulmonary involvement. That episode [...] by mouth daily. ??? vitamin D (ERGOCALCIFEROL) 86083 UNIT capsule Take 50,000 Units by mouth. [...] Take 5 mLs by mouth daily. ??? [id number] Might-a mins spectrum once daily (Digestive Enzymes) [...] DNA double stranded antibodies ??? DHEERAJ Panel (TECHNICAL BUYER, HENDRICKSON, Scleroderma, SSAB, SSBB); DHEERAJ, Antibodies, Panel [...] WITH PLATELETS & Routine 10/29/2012 12:03 Positive ARIMUNDO Res ults for this DIFFERENTIAL PM CDT [...] reflex to culture (10/29/2012 1:29 PM CDT) [facility] gist Method Time Signature Color Urine Light Yellow [facility] Appearance Urine Clear [facility] Glucose Urine Negative NEG mg/dL [facility] Bilirubin Urine Negative NEG [facility] Ketones Urine Negative NEG mg/dL [facility] Specific Shubert 1.009 1.003 - [facility] Urine 1.035 [facility] Blood Urine Negative NEG [facility] pH Urine 5.0 5.0 - 7.0 [facility] pH [facility] Protein Albumin Negative NEG mg/dL [facility] Urine [facility] Urobilinogen Normal 0.0 - 2.0 [facility] mg/dL mg/dL [facility] Nitrite Urine Negative NEG [facility] Leukocyte Negative NEG [facility] Esterase Urine [facility] Source Midstream [facility] Urine [facility] WBC Urine <1 0 - 2 [facility] /HPF [facility] RBC Urine 0 0 - 2 [facility] /HPF [facility] Squamous <1 0 - 1 [facility] Epithelial /HPF /HPF [facility] Urine [place] Mucous Urine Present (A) NEG /LPF [facility] Specimen Anatomical Collection Method Collection Time Receive d Time (Source) Location / / Volume Laterality Urine specimen 10/29/2012 1:29 PM 013 1:34 (specimen) CDT PM CDT Debbi Juarez MD LAB - URINE ORDERABLES Performing Organization Address City/State/ZIP Code Phon e Number [facility] [address] [place] [address] [facility] Beta-2 glycoprotein antibodies IgG IgM (10/29/2012 12:03 PM CDT) P athologist Signature Odhg-2-Mnpycgo 1 [facility] o IgG CAMPUS LABS Comment: Reference range: 0 to 20 Unit: SGU Qffu-1-Gqrdhgdp IgM [address] [facility] UNIVE RSITY [place] [facility] Comment: Reference range: 0 to 20 [...] of a sin gle specimen. Performed by [facility], [address] [facility] [place] [address] [email or web address] Messages, Grant Akins MD, L ab. Director Specimen Anatomical Collection Method Collection Time Receive d Time (Source) Location / / Volume Laterality Blood specimen 10/29/2012 12:03 3 (specimen) PM CDT 12:04 PM CDT Debbi Juarez MD LAB - BLOOD ORDERABLES Performing Organization Address City/State/ZIP Code Phon e Number [address] LABS Histone antibody IgG (10/29/2012 12:03 PM CDT) athologist Signature Histone 0.1 [facility] Antibody,IgG [place] Comment: Reference range: 0.0 to 0.9 Unit: Units (Note) INTERPRETIVE INFORMATION: Histone Ab, Ig G 0.9 Units or less ............ Negative 1.0 - 1.5 Units .............. Weak Pos itive 1.6 - 2.5 Units .............. Moderate Positive 2.6 Units or greater ......... Strong P ositive Performed by [facility], [address] [facility] [place] [address] [email or web address] Mess[employer], Grant Akins MD, L ab. Director Specimen Anatomical Collection Method Collection Time Receive d Time (Source) Location / / Volume Laterality Blood specimen 10/29/2012 12:03 3 (specimen) PM CDT 12:04 PM CDT Debbi Juarez MD LAB - BLOOD ORDERABLES Performing Organization Address City/State/ZIP Code Phon e Number [facility] [address] [place] [address] [facility] Antinuclear antibody screen by EIA (RAIMUNDO) [...] Organization Address City/State/ZIP Code Phon e Number [facility] [address] [place], [place] [id number] [place] [address] LABS Comprehensive metabolic panel (10/29/2012 12:03 PM CDT) P athologist Signature Sodium 140 133 - 144 [facility] mmol/L [facility] Potassium 3.6 3.4 - 5.3 [facility] mmol/L [facility] Chloride 102 94 - 109 [facility] mmol/L [facility] Carbon Dioxide 29 20 - 32 [facility] mmol/L [facility] Anion Gap 9 6 - 17 [facility] mmol/L [facility] Glucose 84 60 - 99 [facility] mg/dL [facility] Urea Nitrogen 14 7 - 30 [facility] mg/dL [facility] Creatinine 0.76 0.52 - [facility] 1.04 mg/dL [facility] GFR Estimate 78 >60 [facility] mL/min/1.[address] LAB[facility] GFR Estimate If >90 >60 [facility] Black mL/min/1.[address] LABS Calcium 8.7 8.5 - 10.4 [facility] mg/dL [facility] Bilirubin Total 0.4 0.2 - 1.3 [facility] mg/dL [facility] Albumin 4.1 3.3 - 4.9 [facility] g/dL [facility] Protein Total 7.0 6.8 - 8.8 [facility] g/dL [facility] Alkaline 75 40 - 150 [facility] Phosphatase U/L [facility] ALT 45 0 - 50 U/L [facility] AST 27 0 - 45 U/L [facility] Specimen Anatomical Collection Method Collection Time Receive d Time (Source) Location / / Volume Laterality Blood specimen 10/29/2012 12:03 3 (specimen) PM CDT 12:04 PM CDT Debbi Juarez MD LAB - BLOOD ORDERABLES Performing Organization Address City/State/ZIP Code Phon e Number [facility] [address] LABS Vitamin D Deficiency (10/29/2012 12:03 PM CDT) athologist Signature Vitamin D 36 30 - 75 [facility] Deficiency ug/L [place] screening Comment: Season, race, dietary intake, and treatm ent affect the concentration of 17-imtrnro-Zqyvnnu D. Values may decrea se during winter [...] questions, pl ease contact the laboratory at [phone]. Specimen Anatomical Collection Method Collection Time Receive d Time (Source) Location / / Volume Laterality Blood specimen 10/29/2012 12:03 3 (specimen) PM CDT 12:04 PM CDT Debbi Juarez MD LAB - BLOOD ORDERABLES Performing Organization Address City/State/ZIP Code Phon e Number [facility] [address] LABS Rheumatoid factor (10/29/2012 12:03 PM CDT) athologist Signature Rheumatoid 13 0 - 14 [facility] Factor IU/mL CAMPUS LABS Specimen Anatomical Collection Method Collection Time Receive d Time (Source) Location / / Volume Laterality Blood specimen 10/29/2012 12:03 3 (specimen) PM CDT 12:04 PM CDT Debbi Juarez MD LAB - BLOOD ORDERABLES Performing Organization Address City/State/ZIP Code Phon e Number [facility] [address] LABS (ABNORMAL) Protein electrophoresis (10/29/2012 12:03 PM CDT) Component Value Ref Test Analysis Performed At [facility] Range Method Time Signature Albumin 4.2 3.7 - [facility] Fraction 5.1 g/dL [facility] Alpha 1 0.4 0.2 - [facility] Fraction 0.4 g/dL [facility] Alpha 2 0.7 0.5 - [facility] Fraction 0.9 g/dL [facility] Beta Fraction 0.8 0.6 - [facility] 1.0 g/dL [facility] Gamma 0.6 (L) 0.7 - [facility] Fraction 1.6 g/dL [facility] Monoclonal 0.0 0.0 g/dL [facility] Peak [facility] ELP Essentially normal electrophoretic pattern. ??No monoc lonal protein seen. [facility] Interpretatio Pathologic significance req uires clinical correlation. ??Destini Mujica M.D., KANOSH n: Ph.D., Pathologist [place] Specimen Anatomical Collection Method Collection Time Receive d Time (Source) Location / / Volume Laterality Blood specimen 10/29/2012 12:03 3 (specimen) PM CDT 12:04 PM CDT Debbi Juarez MD LAB - BLOOD ORDERABLES Performing Organization Address City/[facility]/RUST Code Phon e Number [address] LABS Cryoglobulin quantitative (10/29/2012 12:03 PM CDT) Component Value Ref Test Analysis Performed At [facility] Method Time Signature Cryoglobulin Negative NEG % [facility] No cry[facility]itate observed U [facility] Specimen Anatomical Collection Method Collection Time Receive d Time (Source) Location / / Volume Laterality Blood specimen 10/29/2012 12:03 3 (specimen) PM CDT 12:04 PM CDT Debbi Juarez MD LAB - BLOOD ORDERABLES Performing Organization Address City/[facility]/RUST Code Phon e Number [address] LABS Cyclic Citrullinated Peptide IgG IgA (10/29/2012 12:03 PM CDT) [facility] Method Time Signature Cyclic Cit <20 <20 UNITS [facility] Pept IgG/IgA Interpretation: ??Negative [facility] Specimen Anatomical Collection Method Collection Time Receive d Time (Source) Location / / Volume Laterality Blood specimen 10/29/2012 12:03 3 (specimen) PM CDT 12:04 PM CDT Debbi Juarez MD LAB - BLOOD ORDERABLES Performing Organization Address City/[facility]/ZIP Code Phon e Number [facility] [address] LABS Erythrocyte sedimentation rate auto (10/29/2012 12:03 PM CDT) athologist Signature Sed Rate 8 0 - 30 mm/h [facility] Specimen Anatomical Collection Method Collection Time Receive d Time (Source) Location / / Volume Laterality Blood specimen 10/29/2012 12:03 3 (specimen) PM CDT 12:04 PM CDT Debbi Juarez MD LAB - BLOOD ORDERABLES Performing Organization Address City/[facility]/RUST Code Phon e Number [facility] [address] [place], [place] [id number] [place] [address] LABS DHEERAJ Panel (TECHNICAL BUYER, HENDRICKSON, Scleroderma, SSAB, SSBB); DHEERAJ, Antibodies, Panel (10/29/2012 12:03 PM CDT) athologist Signature Ribonucleic [address] [facility] Protein IgG [facility] Comment: Reference range: 0 to 40 Unit: AU/mL (Note) INTERPRETIVE INFORMATION: Ribonucleic Pr otein (DHEERAJ)Antibody, IgG 29 AU/mL or Less ............. Negative 30 - 40 AU/mL ................ Equivoca l 41 AU/mL or Greater .......... Positive TECHNICAL BUYER antibody is seen in 95-100 percent o f mixed connective tissue disease and is considered specifi c for this syndrome if other antibodies are negative; TECHNICAL BUYER is also present in 20-30 percent of systemic lupus erythema tosus and 15-25 percent of progressive systemic sclerosi s. TECHNICAL BUYER antigens also contain epitopes that are immunolog ically identical to free Hendrickson antigens, therefore, the Leonel h antibody response must be considered when interpreting TECHNICAL BUYER results. Hendrickson Antibody IgG 0 [facility] Comment: Reference range: 0 to 40 [...] renal disease. SSA (RO) Antibody IgG 1 [facility] Comment: Reference range: 0 to [...] sclerosis (PSS). SSB ([place]) Antibody IgG 0 [facility] Comment: Reference range: 0 to [...] have this antibody. Scleroderma Antibody IgG 0 [facility] Comment: Reference range: 0 to [...] of progressive systemic sclerosis (PSS). Performed by [facility], [address] [place] [address],[place] [address] [email or web address] Mess[employer], Grant Akins MD, L ab. Director Specimen Anatomical Collection Method Collection Time Receive d Time (Source) Location / / Volume Laterality Blood specimen 10/29/2012 12:03 3 (specimen) PM CDT 12:04 PM CDT Debbi Juarez MD LAB - BLOOD ORDERABLES Performing Organization Address City/[facility]/[place]UST Code Phon e Number [address] LABS DNA double stranded antibodies (10/29/2012 12:03 PM CDT) athologist Signature DNA-ds <15 0 - 29 [facility] Interpretation: ??Negative IU/mL [facility] Specimen Anatomical Collection Method Collection Time Receive d Time (Source) Location / / Volume Laterality Blood specimen 10/29/2012 12:03 3 (specimen) PM CDT 12:04 PM CDT Debbi Juarez MD LAB - BLOOD ORDERABLES Performing Organization Address City/State/ZIP Code Phon e Number [address] LABS CRP inflammation (10/29/2012 12:03 PM CDT) Analysis Performed At Patho logist Time Signature CRP Inflammation 5.3 0.0 - 8.0 [facility] mg/L [facility] Specimen Anatomical Collection Method Collection Time Receive d Time (Source) Location / / Volume Laterality Blood specimen 10/29/2012 12:03 3 (specimen) PM CDT 12:04 PM CDT Debbi Juarez MD LAB - BLOOD ORDERABLES Performing Organization Address City/[facility]/ZIP Code Phon e Number [facility] [address] LABS Complement C4 (10/29/2012 12:03 PM CDT) athologist Signature Complement C4 31 15 - 50 [facility] mg/dL [place] Specimen Anatomical Collection Method Collection Time Receive d Time (Source) Location / / Volume Laterality Blood specimen 10/29/2012 12:03 3 (specimen) PM CDT 12:04 PM CDT Debbi Juarez MD LAB - BLOOD ORDERABLES Performing Organization Address City/[facility]/ZIP Code Phon e Number [facility] [address] LABS Complement C3 (10/29/2012 12:03 PM CDT) athologist Signature Complement C3 130 76 - 169 [facility] mg/dL [place] Specimen Anatomical Collection Method Collection Time Receive d Time (Source) Location / / Volume Laterality Blood specimen 10/29/2012 12:03 3 (specimen) PM CDT 12:04 PM CDT Debbi Juarez MD LAB - BLOOD ORDERABLES Performing Organization Address City/[facility]/ZIP Code Phon e Number [facility] [address] [place], [place] [id number] [place] [address] LABS (ABNORMAL) CBC with platelets differential (10/29/2012 12:03 PM CDT) [facility] Method Time Signature WBC 7.2 4.0 - [facility] 11.0 [facility] 10e9/L [place] [facility] RBC Count 4.61 3.8 - 5.2 [facility] 10e12/L [facility] Hemoglobin 14.2 11.7 - [facility] 15.7 g/dL [facility] Hematocrit 43.8 35.0 - [facility] 47.0 % [facility] MCV 95 78 - 100 [facility] fl [facility] MCH 30.8 26.5 - [facility] 33.0 pg [facility] MCHC 32.4 31.5 - [facility] 36.5 g/dL [facility] RDW 12.9 10.0 - [facility] 15.0 % [facility] Platelet Count 225 150 - 450 [facility] 10e9/L [facility] Diff Method Automated [facility] Method [facility] % Neutrophils 83.1 % [facility] % Lymphocytes 10.2 % [facility] % Monocytes 6.0 % [facility] % Eosinophils 0.3 % [facility] % Basophils 0.1 % [facility] % Immature 0.3 % [facility] Granulocytes [facility] Absolute 6.0 1.6 - 8.3 [facility] Neutrophil 10e9/L [facility] Absolute 0.7 (L) 0.8 - 5.3 [facility] Lymphocytes 10e9/L [facility] Absolute 0.4 0.0 - 1.3 [facility] Monocytes 10e9/L [facility] Absolute 0.0 0.0 - 0.7 [facility] Eosinophils 10e9/L [facility] Absolute 0.0 0.0 - 0.2 [facility] Basophils 10e9/L [facility] Abs Immature 0.0 0 - 0.4 [facility] Granulocytes 10e9/L [facility] Specimen Anatomical Collection Method Collection Time Receive d Time (Source) Location / / Volume Laterality Blood specimen 10/29/2012 12:03 3 (specimen) PM CDT 12:04 PM CDT Debbi Juarez MD LAB - BLOOD ORDERABLES Performing Organization Address City/State/ZIP Code Phon e Number [id number] [place] [address] LABS documented in this encounter Visit Diagnoses Diagnosis Positive RAIMUNDO (antinuclear antibody) - Pr imary Other and unspecified nonspecific immuno logical findings Cardiac murmur Undiagnosed cardiac murmurs documented in this encounter Care Teams Truck Mechanic Apprentice Relationship Specialty Start Date End Date Edison Tam MD PCP - General Family Practice 09/21/11 07/22/[address] [id number] documented as of this encounter
--- OUTSIDE RECORDS SUMMARY | 2021-10-26 13:38 | XMS_ITS | Encounter Summary ---
:1955 Author Organization [facility] Address [address] [place] [address] Care Team Providers Name Role Phone Edison Tam MD Primary Care Provider Reason for Visit Reason Onset Date Comments Refill Request 09/12/2012 levothyroxine Encounter Details Date Type Department Care Team Description 09/12/2012 Refill [facility], Primary Edison Tam Refill Request Care Center MD Marcia (levothyroxine) 3rd Floor, Clinic 3A [id number] [place] [address] [place] [address] Social History Tobacco Use Types [...] thyroiditis documented in this encounter Care Teams Soil Science Teacher Relationship Specialty Start Date End Date Edison Tam MD PCP - General Family Practice 09/21/11 07/22/[address] [address] documented as of this encounter
--- OUTSIDE RECORDS SUMMARY | 2021-10-26 13:38 | XMS_ITS | Encounter Summary ---
:1955 Author Organization [place] Address [address] [place] [address] Care Team Providers Name Role Phone Edison Tam MD Primary Care Provider Reason for Visit Reason Onset Date Comments Patient Request 07/30/2012 Encounter Details Date Type Department Care Team Description 07/30/2012 Telephone Medicine GI - 1E Charan Salazar MD Patient Request Luke Barahona[address] [address] [address] Floor, [address] [place] [address] [place] [phone] Social History Tobacco Use Types Packs/Day [...] on current care plan. Charan Salazar MD Supervisor Boilermaking [employer] [facility] - Department of Medicine Division of Gastroenterology documented in this encounter Plan of Treatment Not on filedocumented as of this encounter Visit Diagnoses Not on filedocumented in this encounter Care Teams Windows Server Specialist Relationship Specialty Start Date End Date Edison Tam MD PCP - General Family Practice 09/21/11 07/22/[address] [address] documented as of this encounter
--- OUTSIDE RECORDS SUMMARY | 2021-10-26 13:38 | XMS_ITS | Encounter Summary ---
:1955 Author Organization [place] Address [address] [place] [address] Care Team Providers Name Role Phone Edison Tam MD Primary Care Provider Reason for Visit Reason Onset Date Comments Pre Visit Planning - Done 10/22/2012 Encounter Details Date Type Department Care Team Description 10/22/2012 Telephone [facility] Adult Rheumatolo gy Debbi Juarez, Pre Visit Planning - 2nd Floor, Clinic 2A Done Luke [address] Building [address] [place] [phone] Social History Tobacco Use Types Packs/Day Years [...] on filedocumented in this encounter Care Teams Presales Engineer Relationship Specialty Start Date End Date Edison Tam MD PCP - General Family Practice 09/21/11 07/22/14 909 [facility] [address] [place] [address] documented as of this encounter
--- OUTSIDE RECORDS SUMMARY | 2021-10-26 13:38 | XMS_ITS | Encounter Summary ---
:1955 Author Organization [place] Address [address] [place] [address] Care Team Providers Name Role Phone Edison Tam MD Primary Care Provider Reason for Visit Reason Onset Date Comments Call Back 09/03/2012 Encounter Details Date Type Department Care Team Description 09/03/2012 Telephone Medicine GI - 1E Charan Salazar MD Call Back [address] [address] [facility] Floor, [address] [place] [address] [place] [phone] Social History Tobacco Use Types Packs/Day [...] on filedocumented in this encounter Care Teams Complaint Evaluation Supervisor Relationship Specialty Start Date End Date Edison Tam MD PCP - General Family Practice 09/21/11 07/22/14 909 [facility] 4 [place] [address] documented as of this encounter
--- OUTSIDE RECORDS SUMMARY | 2021-10-26 13:38 | XMS_ITS | Encounter Summary ---
:1955 Author Organization [place] Address [address] [place] [address] Care Team Providers Name Role Phone Edison Tam MD Primary Care Provider Reason for Visit Reason Onset Date Comments Other 08/27/2012 contacted diana loera and brianna for [facility] mailed 08/27 Encounter Details Date Type Department Care Team Description 08/27/2012 Telephone Diabetes and Endocri ne Darrian Talbert, Other (contacted 6th Floor, Clinic 6A patient, letter and Luke Barahonateen [address] [facility] brianna for [facility] Building 136 mailed 08/27) [address] [facility] [place] [phone] [place] [address] (Wo rk) [phone] [phone] Social History Tobacco Use Types Packs/Day Years [...] on filedocumented in this encounter Care Teams Canvas Cutter Machine Relationship Specialty Start Date End Date Edison Tam MD PCP - General Family Practice 09/21/11 07/22/14 909 [facility] 4 [place] [address] documented as of this encounter
--- OUTSIDE RECORDS SUMMARY | 2021-10-26 13:38 | XMS_ITS | Encounter Summary ---
:1955 Author Organization [place] Address [address] [place] [address] Care Team Providers Name Role Phone Edison Tam MD Primary Care Provider Reason for Visit Reason Onset Date Comments Other 07/29/2012 Encounter Details Date Type Department Care Team Description 07/29/2012 Telephone Medicine GI - 1E Charan Salazar MD Other [address] [address] 1st Floor, [facility] [address] [place] [address] [place] [phone] Social History Tobacco Use Types Packs/Day [...] on filedocumented in this encounter Care Teams Analytics Intern Relationship Specialty Start Date End Date Edison Tam MD PCP - General Family Practice 09/21/11 07/22/14 909 [facility] 4 [place] [address] documented as of this encounter
--- OUTSIDE RECORDS SUMMARY | 2021-10-26 13:38 | XMS_ITS | Encounter Summary ---
:1955 Author Organization [place] Address [facility] [place] [address] Care Team Providers Name Role Phone Edison Tam MD Primary Care Provider Reason for Visit Auth/Cert - Closed Specialty Diagnoses / Procedures Referred By Contact Refer red To Contact Gastroenterology Diagnoses Regional enteritis Uu Endoscopy Procedures COLONOSCOPY COMBINED ESOPHAGOSCOPY, GASTROSCOPY, DUODENOSCOPY (EGD) 500 [place] [address] Phone: Referral ID Status Reason Start Date Expiration Date Visits Requ ested Visits Authorized [id number] Closed 1 1 Encounter Details Date Type Department Care Team Description 08/26/2012 Hospital Encounter [facility] Slick Velázquez MD Endoscopy [address] [facility] [address] [place] [address] [phone] (Wo rk) Social History Tobacco Use Types [...] w/ 27 gauge needles, 1 inch length [id number] Might-a mins 0 2013 spectrum once daily [...] vitamin D (ERGOCALCIFEROL) Take 50,000 0 12/03/2012 31644 UNIT capsule Units by mouth. 2 times [...] Component Value Ref Test Analysis Performed At [facility] Method Time Signature Copath Report Patient Name: MARIA E COLEY MR#: [id number] Specimen #: [id number] Collected: 08/26/2012 Received: 08/26/2012 Reported: 08/27/2012 23:46 [...] Electronically signed out by: Axel Vanegas M.D., [facility] CLINICAL HISTORY: The patient is a 56-year-old [...] Axel Vanegas MD/halley 08/27/2012 TESTING LAB LOCATION: [address] ?? [id number] COLLECTION SITE: Client: General acute hospital Location: [facility] (B) Specimen Anatomical Collection Method Collection Time Receive d Time (Source) Location / / Volume Laterality 08/26/2012 2:03 PM 3 5:15 CDT PM CDT Jolanta KENYON - BRIAN SRINIVASAN Performing Organization Address City/State/ZIP Code Phon e Number COPATH FLEXIBLE SIGMOIDOSCOPY (08/26/2012 12:32 PM CDT) [facility] gist Method Time Signature Flex Sig General acute hospital RADIOLOGY [address] [place] [address] [phone] ? End oscopy Department RESULTS Patient Name: [...] Component Value Ref Test Analysis Performed At [facility] Range Method Time Signature [facility] [place] RADIOLOGY Endoscopy [address] [place] [address] [phone] ? Endoscopy Department RESULTS Patient Name: Maria E quiñonez ?Procedure Date: 08/26/2012 12:06:SS A6/P6 ? Date of : 1955 ?Admit Type: Outpatient ? Age: 56 ? Room: [facility] -Endoscopy ? Gender: Female ?Note Status: [...] ults. ?- Return to IBD Clinic ([facility]) as previously ?scheduled. ?- The findings and recommendations were discussed ?with the patient. ? Electronically signed by Michael Velázquez Joalnta Velázquez MD Signed Date: 08/26/2012 14:06:WALLACE A6/P6 [...] Intra-procedure documented in this encounter Care Teams Aircraft Dispatcher Relationship Specialty Start Date End Date Edison Tam MD PCP - General Family Practice 09/21/11 07/22/14 909 [facility] 4 [place] [address] documented as of this encounter
--- OUTSIDE RECORDS SUMMARY | 2021-10-26 13:38 | XMS_ITS | Encounter Summary ---
:1955 Author Organization [place] Address [address] [place] [address] Care Team Providers Name Role Phone Edison Tam MD Primary Care Provider Reason for Visit Reason Onset Date Comments Refill Request 09/23/2012 Propranolol Encounter Details Date Type Department Care Team Description 09/23/2012 Refill [facility], Primary Corky Sainz efgallo Request Care Center (Propranolol) 3rd Floor, Clinic [address] [address] Social History Tobacco Use Types [...] dennis documented in this encounter Care Teams Yard Operator Relationship Specialty Start Date End Date Edison Tam MD PCP - General Family Practice 09/21/11 07/22/[address] [address] documented as of this encounter
--- OUTSIDE RECORDS SUMMARY | 2021-10-26 13:38 | XMS_ITS | Encounter Summary ---
:1955 Author Organization [place] Address [address] [place] [address] Care Team Providers Name Role Phone Edison Tam MD Primary Care Provider Encounter Details Date Type Department Care Team Description 11/11/2012 Orders Only Medicine GI - 1E Charan Salazar MD Inflammatory bowel [address] disease (Crohn's Building [place], [place] disease) (H) (Primary 1st Floor, Clinic 1E [address] Dx) [address] [place] [address] [place], [place] (Work) [address] [phone] Social History Tobacco Use Types Packs/Day Years [...] site documented in this encounter Care Teams Boom Storage Relationship Specialty Start Date End Date Edison Tam MD PCP - General Family Practice 09/21/11 07/22/14 909 [facility] 4 [place] [address] documented as of this encounter
--- OUTSIDE RECORDS SUMMARY | 2021-10-26 13:38 | XMS_ITS | Encounter Summary ---
:1955 Author Organization [place] Address [address] [place] [address] Care Team Providers Name Role Phone Edison Tam MD Primary Care Provider Reason for Visit Reason Comments RECHECK Follow up Encounter Details Date Type Department Care Team Description 11/05/2012 Office Visit Medicine GI - 1E Charan Salazar MD Inflammatory bowel [address] disease (Crohn's Building [place], [place] disease) (H) (Primary 1st Floor, Clinic 1E [address] Dx) [address] [place] [address] SE (Work) [place] [address] Social History Tobacco Use Types [...] During business hours, you may reach my Operating Room Manager at . For urgent/emergent questions after business hours, you may reach the on-call GI Fellowby contacting the [facility] cloth doubling machine operator at . Any benign/non-urgent test results are usually communicated via letter or [employer] Grouphart message within 1-2weeks after completion. Urgent results (those that require a change in the previously-discussed careplan) are usually communicated via a phone call once available from our clinic staff to discuss the results and the next steps in your evaluation. I recommend signing up for Animailt access if you have not already done [...] informed decisions about your healthcare. Sincerely, Charan Salaazr MD Service And Repair Supervisor [facility] - Department of Medicine Division of Gastroenterology [...] the above delineated issues. Charan Salazar MD Service And Repair Supervisor [facility] - Department of Medicine Division of Gastroenterology [...] site documented in this encounter Care Teams Filter Screen Cleaner Relationship Specialty Start Date End Date Edison Tam MD PCP - General Family Practice 09/21/11 07/22/[address] [address] documented as of this encounter
--- OUTSIDE RECORDS SUMMARY | 2021-10-26 13:38 | XMS_ITS | Encounter Summary ---
:1955 Author Organization [place] Address [address] [place] [address] Care Team Providers Name Role Phone Edison Tam MD Primary Care Provider Reason for Visit Reason Onset Date Comments Refill Request 07/30/2012 Encounter Details Date Type Department Care Team Description 07/30/2012 Refill Medicine GI - 1E Charan Salazar MD Refill Request [id number] [place] [address] Floor, [facility] [address] [place] [address] [place] [phone] Social History Tobacco Use Types Packs/Day [...] site documented in this encounter Care Teams Mileage Clerk Relationship Specialty Start Date End Date Edison Tam MD PCP - General Family Practice 09/21/11 07/22/14 909 [facility] 4 [place] [address] documented as of this encounter
--- OUTSIDE RECORDS SUMMARY | 2021-10-26 13:38 | XMS_ITS | Encounter Summary ---
:1955 Author Organization [place] Address [address] [place] [address] Care Team Providers Name Role Phone Edison Tam MD Primary Care Provider Reason for Visit Reason Onset Date Comments Patient Request 07/29/2012 Encounter Details Date Type Department Care Team Description 07/29/2012 Telephone Medicine GI - 1E Charan Salazar MD Patient Request Luke Barahona[address] [address] 1st Floor, [address] [place] [address] [place] [phone] Social History Tobacco Use Types Packs/Day [...] w/ any further questions. Charan Salazar MD Clerk Analyst [facility] - Department of Medicine Division of Gastroenterology documented in this encounter Plan of Treatment Not on filedocumented as of this encounter Visit Diagnoses Not on filedocumented in this encounter Care Teams Computer Forensic Examiner Relationship Specialty Start Date End Date Edison Tam MD PCP - General Family Practice 09/21/11 07/22/[address] [address] documented as of this encounter
--- OUTSIDE RECORDS SUMMARY | 2021-10-26 13:38 | XMS_ITS | Encounter Summary ---
:1955 Author Organization [place] Address [address] [place] [address] Care Team Providers Name Role Phone Edison Tam MD Primary Care Provider Reason for Visit Reason Onset Date Comments Other 08/26/2012 Encounter Details Date Type Department Care Team Description 08/26/2012 Telephone Medicine GI - 1E Charan Salazar MD Other [address] [address] 1st Floor, Clinic [address] [place] [address] [place] [phone] Social History Tobacco Use Types Packs/Day [...] filedocumented in this encounter Care Teams Supervisor Incising Relationship Specialty Start Date End Date Edison Tam MD PCP - General Family Practice 09/21/11 07/22/14 909 [facility] 4 [place] [address] documented as of this encounter
--- OUTSIDE RECORDS SUMMARY | 2021-10-26 13:38 | XMS_ITS | Encounter Summary ---
:1955 Author Organization [place] Address [address] [place] [address] Care Team Providers Name Role Phone Edison Tam MD Primary Care Provider Reason for Visit Reason Onset Date Comments Prior Authorization 11/12/2012 Encounter Details Date Type Department Care Team Description 11/12/2012 Telephone Medicine GI - 1E Charan Salazar MD Prior Authorization [address] 1st Floor, Clinic [address]E [address] [place] [address] [place] [address] Social History Tobacco Use Types [...] on filedocumented in this encounter Care Teams Buttonholer Relationship Specialty Start Date End Date Edison Tam MD PCP - General Family Practice 7/13/12 5/14/15 909 [facility] 4 [place] [address] documented as of this encounter
--- OUTSIDE RECORDS SUMMARY | 2021-10-26 13:38 | XMS_ITS | Encounter Summary ---
:1955 Author Organization [place] Address [address] [place] [address] Care Team Providers Name Role Phone Edison Tam MD Primary Care Provider Reason for Referral Specialty Diagnoses / Procedures Referred By Contact Refer red To Contact Harriett Collier MD [facility] [address] [facility] 284 [place], [place] [address] Referral ID Status Reason Start Date Expiration Date Visits Requ ested Visits Authorized Reason for Visit Reason Comments Back Pain Patient here for back pain Auth/Cert - Closed Specialty Diagnoses / Procedures Referred By Contact Refer red To Contact Gastroenterology Diagnoses Regional enteritis Uu Endoscopy Procedures COLONOSCOPY COMBINED ESOPHAGOSCOPY, GASTROSCOPY, DUODENOSCOPY (EGD) 500 [place] [address] Phone: Referral ID Status Reason Start Date Expiration Date Visits Requ ested Visits Authorized [id number] Closed 1 1 Encounter Details Date Type Department Care Team Description 08/26/2012 Office Visit Physicians, Primary Heather Owens MD [address] [facility] 741 [place] [address] Lumbago (Primary Dx); Care Center Harriett Collier MD [facility] [address] [facility] 284 [place] [address] Osteoporosis, unspecified 3rd Floor, Clinic [address]A [address] [place] [phone] Social History Tobacco Use Types Packs/Day Years [...] pharmacy regarding ANY request for medication refills. [facility] Prescription Fax = [phone] * Please allow 3 business days for [...] and signed off on them. Endocrine/ Rheumatology [phone] (6th Floor [address], [address]) documented in this encounter Progress Notes Heather Owens MD - 09/11/2012 11:27 PM CDT Attending: I discussed the patient's case with the resident, verified the history with the patient and examinedthe patient. I agree with the findings and the plan of care as documented in the resident's note. Additional comments: None. Heather Owens M.D. Internal Medicine pager [phone] Harriett Conklin MD - 08/26/2012 4:07 PM [...] mouth daily. Disp: Rfl: vitamin D (ERGOCALCIFEROL) 37315 UNIT capsule Take 50,000 Units by mouth. [...] 5 mLs by mouth daily. Disp: Rfl: [id number] Might-a mins spectrum once daily (Digestive Enzymes) [...] ??? None Social History Narrative [place]oved [place] from [facility]. She is living in an [...] Type Priority Associated Diagnoses Order S [facility] ENDOCRINOLOGY ADULT Referral Routine Osteoporosis, Ordered : 08/26/2012 REFERRAL unspecified documented as of this encounter Visit Diagnoses Diagnosis Lumbago - Primary Osteoporosis, unspecified documented in this encounter Care Teams Mock Up Maker Relationship Specialty Start Date End Date Edison Tam MD PCP - General Family Practice 09/21/11 07/22/14 909 [facility] 4 [place] [address] documented as of this encounter
--- OUTSIDE RECORDS SUMMARY | 2021-10-26 13:38 | XMS_ITS | Encounter Summary ---
:1955 Author Organization [place] Address [address] [place] [address] Care Team Providers Name Role Phone Edison Tam MD Primary Care Provider Reason for Visit Reason Onset Date Comments Other 07/28/2012 Encounter Details Date Type Department Care Team Description 07/28/2012 Telephone Medicine GI - 1E Charan Salazar MD Other [address] [address] [address] Floor, [facility] [address]E [address] [place] [address] [place] [phone] Social History Tobacco Use Types Packs/Day [...] on filedocumented in this encounter Care Teams Vice President Consulting Services Relationship Specialty Start Date End Date Edison Tam MD PCP - General Family Practice 09/21/11 07/22/14 909 [facility] 4 [place] [address] documented as of this encounter
--- OUTSIDE RECORDS SUMMARY | 2021-10-26 13:39 | XMS_ITS | Encounter Summary ---
:1955 Author Organization [place] Address [address] [place] [address] Care Team Providers Name Role Phone Edison Tam MD Primary Care Provider Reason for Visit Reason Onset Date Comments Erroneous encounter-disregard 07/28/2012 Encounter Details Date Type Department Care Team Description 07/28/2012 Refill Medicine GI - 1E Charan Salazar MD Erroneous [address] encounter-disregard [place], [place] 1st Floor, Clinic [address]E [address] [place] [address] [place] [address] Social History Tobacco Use Types [...] filedocumented in this encounter Care Teams Carbon Paper Coating Supervisor Relationship Specialty Start Date End Date Edison Tam MD PCP - General Family Practice 09/21/11 07/22/14 909 [facility] 4 [place] [address] documented as of this encounter
--- OUTSIDE RECORDS SUMMARY | 2021-10-26 13:39 | XMS_ITS | Encounter Summary ---
:1955 Author Organization [place] Address [address] [facility] [place] [address] Care Team Providers Name Role Phone Edison Tam MD Primary Care Provider Encounter Details Date Type Department Care Team Description 07/24/2012 Medical Correspondence [facility] Unknown, [facility] Health Info Mgmt Provider CERTIFICATI ON \T\ Srvcs PLAN OF CARE [address] [place] [address] Social History Tobacco Use Types [...] filedocumented in this encounter Care Teams Sap Director Relationship Specialty Start Date End Date Edison Tam MD PCP - General Family Practice 09/21/11 07/22/[address] [address] documented as of this encounter
--- OUTSIDE RECORDS SUMMARY | 2021-10-26 13:39 | XMS_ITS | Encounter Summary ---
:1955 Author Organization [place] Address [address] [place] [address] Care Team Providers Name Role Phone Edison Tam MD Primary Care Provider Reason for Visit Reason Onset Date Comments Refill Request 04/04/2012 Tirosint Encounter Details Date Type Department Care Team Description 04/04/2012 Refill [facility], Primary Edison Tam Refill Request Care Center MD [place] (Tirosint) 3rd Floor, Clinic 3A [id number] [place] [address] [place] [address] Social History Tobacco Use Types [...] thyroiditis documented in this encounter Care Teams Prepared Foods Supervisor Relationship Specialty Start Date End Date Edison Tam MD PCP - General Family Practice 09/21/11 07/22/[address] [address] documented as of this encounter
--- OUTSIDE RECORDS SUMMARY | 2021-10-26 13:39 | XMS_ITS | Encounter Summary ---
:1955 Author Organization [place] Address [address] [place] [address] Care Team Providers Name Role Phone Edison Tam MD Primary Care Provider Reason for Visit Reason Comments RECHECK patient here for follow up o n crohns Encounter Details Date Type Department Care Team Description 07/25/2012 Office Visit Medicine GI - 1E Charan Salazar MD Inflammatory bowel [address] disease (Crohn's Building [place], [place] disease) (H) (Primary 1st Floor, Clinic 1E [address] Dx) [address] [place] [address] SE (Work) [place] [address] Social History Tobacco Use Types [...] During business hours, you may reach my Bilingual Social Worker at . For urgent/emergent questions after business hours, you may reach the on-call GI Fellowby contacting the [facility] extractor and wringer operator at . Any benign/non-urgent test results are usually communicated via letter or Offerpophart message within 1-2weeks after completion. Urgent results (those that require a change in the previously-discussed careplan) are usually communicated via a phone call once available from our clinic staff to discuss the results and the next steps in your evaluation. I recommend signing up for MobileVeda access if you have not already done [...] about your healthcare. Sincerely, Charan Salazar MD Slate Picker [facility] - Department of Medicine Division of Gastroenterology [...] the above delineated issues. Charan Salazar MD Slate Picker [facility] - Department of Medicine Division of Gastroenterology [...] site documented in this encounter Care Teams Wrapper Off Relationship Specialty Start Date End Date Edison Tam MD PCP - General Family Practice 09/21/11 07/22/14 909 [facility] 4 [place] [address] documented as of this encounter
--- OUTSIDE RECORDS SUMMARY | 2021-10-26 13:39 | XMS_ITS | Encounter Summary ---
:1955 Author Organization [place] Address [address] [place] [address]. [place] [address] Care Team Providers Name Role Phone Edison Tam MD Primary Care Provider Encounter Details Date Type Department Care Team Description 07/10/2012 Medical Correspondence [facility] Unknown, ORDER/PRESCRIPTION Health Info Mgmt Provider Srvcs [address] [place] [address] Social History Tobacco Use Types Packs/Day [...] on filedocumented in this encounter Care Teams Irrigator Valve Pipe Relationship Specialty Start Date End Date Edison Tam MD PCP - General Family Practice 09/21/11 07/22/[address] [address] documented as of this encounter
--- OUTSIDE RECORDS SUMMARY | 2021-10-26 13:39 | XMS_ITS | Encounter Summary ---
:1955 Author Organization [place] Address [address] [place] [address] Care Team Providers Name Role Phone Edison Tam MD Primary Care Provider Reason for Visit Reason Onset Date Comments Throat Problem 07/11/2012 possible thrush Encounter Details Date Type Department Care Team Description 07/11/2012 Telephone [facility], Primary Sharri Barrett, RN Throat Problem Care Center (possible thrush) 3rd Floor, Clinic [address]A [address] [address] Social History Tobacco Use Types [...] on filedocumented in this encounter Care Teams Roller Coaster Engineer Relationship Specialty Start Date End Date Edison Tam MD PCP - General Family Practice 09/21/11 07/22/14 901 [facility] 4 [place] [address] documented as of this encounter
--- OUTSIDE RECORDS SUMMARY | 2021-10-26 13:39 | XMS_ITS | Encounter Summary ---
:1955 Author Organization [place] Address [address] [place] [address]. [place] [address] Care Team Providers Name Role Phone Edison Tam MD Primary Care Provider Reason for Visit Reason Comments Consult Here to discuss multiple fis tulas Encounter Details Date Type Department Care Team Description 04/22/2012 Office Visit Colon and Rectal Alphonso Suresh MD Crohn's disease of Surgery Clinic [address] both small and large [facility] 450 intestine with Building [place], [place] complication (H) 1st Floor, Clinic 1E [address] (Primary Dx) 6 [facility] [phone] SE (Work) [place] [address] Social History Tobacco Use Types [...] Comments Blood Pressure 118/73 04/22/2012 2:07 PM RADIOLOGY THERAPIST Pulse 96 04/22/2012 2:07 PM RADIOLOGY THERAPIST Temperature - - Respiratory Rate - - Oxygen Saturation 93% 04/22/2012 2:07 PM RADIOLOGY THERAPIST Inhaled Oxygen Concentration - - Weight 59.9 kg (132 lb) 04/22/2012 2:07 PM RADIOLOGY THERAPIST Height 156.8 cm (5' 1.75) 04/22/2012 2:07 PM RADIOLOGY THERAPIST Body Mass Index 24.34 04/22/2012 2:07 PM RADIOLOGY THERAPIST documented in this encounter Progress Notes Alphonso [...] day. Maria E fairly recently relocated to [place] and wants to establish care at [facility]. She had 3 prior surgeries for Crohn's disease in [place] datingback to the . She was seen for medical management of her Crohn's disease at the [facility] by Dr. Bustamante and evidently was on [...] Take 5 mLs by mouth daily. ??? [id number] Might-a mins spectrum once daily (Digestive Enzymes) [...] colonoscopy? Yes, date: 2009 Findings: Crohns Where? [place], [place] OTHER REVIEW OF SYSTEMS: Constitutional: Weight [...] Chief Division of Colon and Rectal Surgery [facility] Referring Provider: Edison Tam MD [facility]ANS [address] [facility] [address] [place] [address] Primary Care Provider: Edison Tam OLOGY THERAPIST documented in this encounter Nursing Notes 04/22/2012 [...] colonoscopy? Yes, date: 2009 Findings: Crohns Where? [place], [place] OTHER REVIEW OF SYSTEMS: Constitutional: Weight [...] intestine documented in this encounter Care Teams Nurse Practitioner Home Assessments Relationship Specialty Start Date End Date Edison Tam MD PCP - General Family Practice 09/21/11 07/22/14 909 [facility] 4 [place] [address] documented as of this encounter
--- OUTSIDE RECORDS SUMMARY | 2021-10-26 13:39 | XMS_ITS | Encounter Summary ---
:1955 Author Organization [place] Address [address] [place] [address] Care Team Providers Name Role Phone Edison Tam MD Primary Care Provider Reason for Visit Reason Onset Date Comments Patient Request 07/01/2012 Encounter Details Date Type Department Care Team Description 07/01/2012 Telephone Medicine GI - 1E Charan Salazar MD Patient Request Luke Barahona[phone] [place] [address] Floor, [address] [place] [address] [place] [phone] Social History Tobacco Use Types Packs/Day [...] on filedocumented in this encounter Care Teams Carpenter Assistant Installer Relationship Specialty Start Date End Date Edison Tam MD PCP - General Family Practice 09/21/11 07/22/[address] [address] documented as of this encounter
--- OUTSIDE RECORDS SUMMARY | 2021-10-26 13:39 | XMS_ITS | Encounter Summary ---
:1955 Author Organization [place] Address [address] [place] [address] Care Team Providers Name Role Phone Edison Tam MD Primary Care Provider Reason for Visit Reason Onset Date Comments Refill Request 05/01/2012 propranolol Encounter Details Date Type Department Care Team Description 05/01/2012 Refill [facility], Primary Edison Tam Refill Request Care Center MD Marcia (propranolol) 3rd Floor, Clinic 3A [address] [place] [address] [facility] [place] [address] Social History Tobacco Use Types [...] dennis documented in this encounter Care Teams Supervisor Esters And Emulsifiers Relationship Specialty Start Date End Date Edison Tam MD PCP - General Family Practice 09/21/11 07/22/[address] [id number] documented as of this encounter
--- OUTSIDE RECORDS SUMMARY | 2021-10-26 13:39 | XMS_ITS | Encounter Summary ---
:1955 Author Organization [place] Address [address] [place] [address] Care Team Providers Name Role Phone Edison Tam MD Primary Care Provider Reason for Visit Reason Comments Consult sinus problems Encounter Details Date Type Department Care Team Description 07/16/2012 Office Visit Ear, Nose and Throat Rose Marie Pittman MD Chronic rhinitis Clinic 420 [facility] (Primary Dx) 8th Floor, Clinic 8A [facility] 396 [place], [place] Building [address] [place] [address] [facility] 88 (Work) [place] [address] Social History Tobacco Use Types [...] candidiasis. cc: Edison Tam MD Primary Care [facility] 741 documented in this encounter Nursing Notes 07/16/2012 2:45 PM CDT >> GAYLE SAMANIEGO CMA SatJuly 16, 2012 2:48 PM Patient presents with: Consult - sinus problems Gayle Samaniego CMA documented in this encounter Plan of Treatment Not on filedocumented as of this encounter Visit Diagnoses Diagnosis Chronic rhinitis - Primary documented in this encounter Care Teams Hardboard Press Operator Relationship Specialty Start Date End Date Edison Tam MD PCP - General Family Practice 09/21/11 07/22/14 909 [facility] 4 [place] [address] documented as of this encounter
--- OUTSIDE RECORDS SUMMARY | 2021-10-26 13:39 | XMS_ITS | Encounter Summary ---
:1955 Author Organization [place] Address [address] [place] [address] Care Team Providers Name Role Phone Edison Tam MD Primary Care Provider Reason for Visit Reason Onset Date Comments Previsit 03/25/2012 Patient confirmed ap pt Encounter Details Date Type Department Care Team Description 03/25/2012 PRE VISIT Medicine GI - 1E Charan Salazar MD Previsit (Patient Butler Wangensteen [address] [place] [address] confirmed appt) Building [place], [place] 1st Floor, Clinic [address] [place] [address] [place] [address] Social History Tobacco Use Types [...] times daily as needed. ??? ergocalciferol (ERGOCALCIFEROL) 69759 UNIT capsule One capsule twice weekly - [...] ??? Tramadol Itching and Rash Preferred Pharmacies: [address] [address] Patient instructions: Bring outside medical records, images, and/or studies Arrive 15 minutes early If health history form was received in the mail please bring to the appointment, or arrive early to complete health history form if patient did not receive. Y CHILDHOOD COORDINATOR documented in this encounter Plan of Treatment Not on filedocumented as of this encounter Visit Diagnoses Not on filedocumented in this encounter Care Teams Registered Nurse Fetal Relationship Specialty Start Date End Date Edison Tam MD PCP - General Family Practice 09/21/11 07/22/[address] [address] documented as of this encounter
--- OUTSIDE RECORDS SUMMARY | 2021-10-26 13:39 | XMS_ITS | Encounter Summary ---
:1955 Author Organization [place] Address [address] [place] [address] Care Team Providers Name Role Phone Edison [...] MD Fatigue; 3rd Floor, Clinic 3A 909 [facility] Yossi's thyroiditis; [facility] 4 Right sided abdominal pain; Building [place], [place] Renal mass, right; [address] [place] [address] Cholelithiases; [place] [phone] Hypopotassemia [facility] 88 (Work) [place], [place] [phone] [address] (Fax) [phone] Social History Tobacco Use Types Packs/Day Years [...] Comments Blood Pressure 112/78 04/07/2012 1:56 PM PARKING LOT SIGNALER Pulse 94 04/07/2012 1:56 PM PARKING LOT SIGNALER Temperature 35.3 ??C (95.5 ??F) 04/07/2012 1:56 PM PARKING LOT SIGNALER Respiratory Rate - - Oxygen Saturation - - Inhaled Oxygen - - Concentration Weight 59.4 kg (131 lb) 04/07/2012 1:56 PM PARKING LOT SIGNALER Height 156.8 cm (5' 1.75) 04/07/2012 1:56 ABSTRACTED F ROM PM PARKING LOT SIGNALER FLOWSHEETS Body Mass Index 24.15 04/07/2012 1:56 PM PARKING LOT SIGNALER documented in this encounter Patient Instructions Patient InstructionsBethanieAnkit Vergara - 04/07/2012 1:56 PM CST Primary Care [phone] ([address]rd [address] [facility], [address]) Primary Care Center Medication Refill Request Information: * Please contact your pharmacy regarding ANY request for medication refills. [facility] Prescription Fax = [phone] * Please allow 3 business days for [...] for your exam Clinic 1D [address] [facility] Imaging Center- [phone] ING LOT SIGNALER documented in this encounter Progress Notes Edison Tma MD - 04/07/2012 2:08 PM CST She [...] HCl-naloxone HCl (SUBOXONE) 8-2 MG FILM ??? [id number] ??? Carboxymethylcellulose Sodium (REFRESH TEARS OP) ??? [...] Social History Narrative Moved to [place] from [facility] to live with Twin sister Joan [place]. [...] in her supplements. She will discontinueVit D 52298 if she has any at home. - [...] Place under the tongue. Dr Pelaez - [id number]; Might-a mins spectrum once daily (Digestive Enzymes) - Carboxymethylcellulose Sodium (REFRESH TEARS OP); Apply to eye. Hypokalemia: I changed her dose to KDUR 8 meq, two daily for a dose of 16 meq daily. I called her with the above results at 6:30 pm All questions were addressed and voiced understanding and agreement with the above. Edison Tam ING LOT SIGNALER documented in this encounter Nursing Notes 04/07/2012 [...] Vitamin D R esults for this SCREENING PARKING LOT SIGNALER Deficiency procedure are i n the results section. TSH WITH FREE T4 Routine 04/07/2012 3:18 PM Yossi's Resul ts for this REFLEX PARKING LOT SIGNALER thyroiditis procedure are i n the results section. COMPREHENSIVE Routine 04/07/2012 3:18 PM Fatigue Results for this METABOLIC PANEL PARKING LOT SIGNALER procedure ar e in the results section. documented in this encounter Results TSH with free T4 reflex (04/07/2012 3:18 PM PARKING LOT SIGNALER) athologist Signature TSH 0.83 0.4 - 5.0 [facility] [place] mU/L [place] [facility] Specimen Anatomical Collection Method Collection Time Receive d Time (Source) Location / / Volume Laterality Blood specimen 04/07/2012 3:18 PM 013 3:20 (specimen) PARKING LOT SIGNALER PM PARKING LOT SIGNALER Edison Tam MD LAB - BLOOD ORDERABLES Performing Organization Address City/State/ZIP Code Phon e Number [address] LABS (ABNORMAL) Comprehensive metabolic panel (04/07/2012 3:18 PM PARKING LOT SIGNALER) [facility] gist Method Time Signature Sodium 138 133 - 144 [facility] mmol/L [facility]S Potassium 3.2 (L) 3.4 - 5.3 [facility] mmol/L [facility] Chloride 96 94 - 109 [facility] mmol/L [facility] Carbon Dioxide 30 20 - 32 [facility] mmol/L [facility]S Anion Gap 11 6 - 17 [facility] mmol/L [facility] Glucose 78 60 - 99 [facility] mg/dL [facility] Urea Nitrogen 13 7 - 30 [facility] mg/dL [facility] Creatinine 0.81 0.52 - [facility] 1.04 mg/dL [facility] GFR Estimate 73 >60 [facility] mL/min/1.7 [facility] m2 CAMPUS LABS GFR Estimate If 88 >60 [facility] Black mL/min/1.7 [place] [address] CAMPUS LABS Calcium 9.2 8.5 - 10.4 [facility] mg/dL [facility] Bilirubin Total 0.3 0.2 - 1.3 [facility] mg/dL [facility] Albumin 4.2 3.3 - 4.9 [facility] g/dL [facility] Protein Total 6.8 6.8 - 8.8 [facility] g/dL [facility]S Alkaline 85 40 - 150 [facility] Phosphatase U/L [facility]S ALT 55 (H) 0 - 50 U/L [facility] LAB[facility] AST 33 0 - 45 U/L [facility] LABS Specimen Anatomical Collection Method Collection Time Receive d Time (Source) Location / / Volume Laterality Blood specimen 04/07/2012 3:18 PM 013 3:20 (specimen) PARKING LOT SIGNALER PM PARKING LOT SIGNALER Edison Tam MD LAB - BLOOD ORDERABLES Performing Organization Address [facility] Phon e Number [address] LABS Vitamin D Deficiency (04/07/2012 3:18 PM PARKING LOT SIGNALER) athologist Signature Vitamin D 30 30 - 75 [facility] Deficiency ug/L [place] [facility] screening Comment: Season, race, dietary intake, and treatm ent affect the concentration of 66-bbhpfmw-Bzkinwm D. Values may decrea se during winter [...] questions, pl ease contact the laboratory at [phone]. Specimen Anatomical Collection Method Collection Time Receive d Time (Source) Location / / Volume Laterality Blood specimen 04/07/2012 3:18 PM 013 3:20 (specimen) PARKING LOT SIGNALER PM PARKING LOT SIGNALER Edison Tam MD LAB - BLOOD ORDERABLES Performing Organization Address [facility] Phon e Number [facility] [address] [facility] documented in this [...] Hypopotassemia documented in this encounter Care Teams Office Machine Servicer Relationship Specialty Start Date End Date Edison Tam MD PCP - General Family Practice 09/21/11 07/22/[address] [address] documented as of this encounter
--- OUTSIDE RECORDS SUMMARY | 2021-10-26 13:39 | XMS_ITS | Encounter Summary ---
:1955 Author Organization [place] Address [address] [place] [address] Care Team Providers Name Role Phone Edison Tam MD Primary Care Provider Reason for Visit Reason Onset Date Comments Patient Request 05/26/2012 case consultant Encounter Details Date Type Department Care Team Description 05/26/2012 Telephone [facility], Primary Edison Tam Patient Request (case Care Center MD Marcia qual research manager) 3rd Floor, Clinic [address] [place] [address] [place], [place] (Work) [address] [phone] Social History Tobacco Use Types Packs/Day Years [...] & treat order to get a case consultant on her case. There are still some sections of the order that need to be filled out. Thanks much, Joseph Hernandez [employer] I reviewed and completed referral. Edison Tam Telephone Encounter - Joseph Hernandez RN - 05/26/2012 2:45 PM CDT Message copied by JOSEPH HERNANDEZ on SatMay 26, 2012 2:45 PM ------ Message from: TAMY CLINTON Created: SatMay 26, 2012 11:41 AM Regarding: Pt asking for leather case finisher Contact: Pt calling to state that at one time, Dr. Tam discussed having a leather case finisher assigned to work with the Pt. Pt is asking if this can happen. Pls call her at [phone] to discuss. Thank you, Iva documented in [...] intestine documented in this encounter Care Teams English Language Arts Teacher Relationship Specialty Start Date End Date Edison Tam MD PCP - General Family Practice 09/21/11 07/22/14 352 [facility] 4 [place] [address] documented as of this encounter
--- OUTSIDE RECORDS SUMMARY | 2021-10-26 13:39 | XMS_ITS | Encounter Summary ---
:1955 Author Organization [place] Address [address] [place] [address] Care Team Providers Name Role Phone Edison Tam MD Primary Care Provider Encounter Details Date Type Department Care Team Description 07/25/2012 Orders Only Medicine GI - 1E Charan Salazar MD Regional enteritis of [address] unspecified site Building [place], [place] (Primary Dx) 1st Floor, Clinic [address] [place] [address] [place] [address] Social History Tobacco Use Types [...] 25, 2012 2:33 PM EGD/Colonoscopy ordered per inMutual Aid Labset message from Dr. Salazar. Will get scheduled [...] Primary documented in this encounter Care Teams Histology Aide Relationship Specialty Start Date End Date Edison Tam MD PCP - General Family Practice 09/21/11 07/22/14 909 [facility] 4 [place] [address] documented as of this encounter
--- OUTSIDE RECORDS SUMMARY | 2021-10-26 13:39 | XMS_ITS | Encounter Summary ---
:1955 Author Organization [place] Address [address] [place] [address] Care Team Providers Name Role Phone Edison Tam MD Primary Care Provider Reason for Visit Reason Onset Date Comments Orders 06/23/2012 skilled nurse HC Encounter Details Date Type Department Care Team Description 06/23/2012 Telephone [facility], Primary Joseph Hernandez , Orders (skilled nurse Care Center RN HC) 3rd Floor, Clinic [address]A [address] [place] [address] Social History Tobacco Use Types [...] Home care orders Contact: Marisol from [facility] requested a call to discuss home care orders. Marisol can be reached at [phone] Thank you JCP documented in this encounter Plan of Treatment Not on filedocumented as of this encounter Visit Diagnoses Not on filedocumented in this encounter Care Teams Acid Tank Liner Relationship Specialty Start Date End Date Edison Tam MD PCP - General Family Practice 09/21/11 07/22/14 909 [facility] 4 [place] [address] documented as of this encounter
--- OUTSIDE RECORDS SUMMARY | 2021-10-26 13:39 | XMS_ITS | Encounter Summary ---
:1955 Author Organization [place] Address [address] [place] [id number] Care Team Providers Name Role Phone Edison Tam MD Primary Care Provider Reason for Visit Reason Comments Consult Chrons Consult. Encounter Details Date Type Department Care Team Description 06/04/2012 Office Visit Medicine GI - 1E Charan Salazar, Crohn's disease of both smal l and large intestine with complication (H) (Primary Dx); Luke Shi MD Intestinovesical fistula; Building [address] [place] [address] Perianal fistula; 1st Floor, Clinic [address] Chronic diarrhea [address] [place] [address] [place], [place] [phone] (Work) [phone] Social History Tobacco Use Types Packs/Day Years [...] During business hours, you may reach my Inspector Conveyor Line at . For urgent/emergent questions after business hours, you may reach the on-call GI Fellowby contacting the [facility] liquor bridge operator at . Any benign/non-urgent test results are usually communicated via letter or RiffTraxhart message within 1-2weeks after completion. Urgent results (those that require a change in the previously-discussed careplan) are usually communicated via a phone call once available from our clinic staff to discuss the results and the next steps in your evaluation. I recommend signing up for [employer] access if you have not already done so and are comfortable with using a computer. This allows for online access to your lab results and also helps you communicate efficiently with my clinic should any questions arise in your care. Sincerely, Charan Salazar MD Business Improvement Manager [facility] - Department of Medicine Division of [...] chronic rectovaginal fistula as well). Denies any N/V/F/C/DONNLELY or other const/syst/cardiopulmonary sxs, no BRBPR/melena/urinary changes, [...] Reviewed pt's extensive outside medical records from [facility] ([phone]) which is notable for some partial anti-TNF response, no previous CERT exposure. Could consider role for utilizing SQ MTX + CERT as a strategy for treating her Crohn's disease, could then consider in-class (GOL) vs. [id number] (KRISS/USTK or VEDO if available) alternatives depending [...] the above delineated issues. Charan Salazar MD Business Improvement Manager [facility] - Department of Medicine Division of [...] Signature M Tuberculosis Negative NEG [facility] Result [facility] M Tuberculosis 0.01 IU/mL [facility] Antigen Value [facility] Comment: This is a qualitative test. [...] LAB - BLOOD ORDERABLES Performing Organization Address [facility] Code Phon e Number [address] LABS Hepatitis A antibody (06/04/2012 12:50 PM CDT) Analysis Performed At Patho logist Time Signature Hepatitis A Negative [facility] Antibody [facility] Specimen Anatomical Collection Method Collection Time Receive d Time (Source) Location / / Volume Laterality Blood specimen 06/04/2012 12:50 3 (specimen) PM CDT 12:52 PM CDT Charan Salazar MD LAB - BLOOD ORDERABLES Performing Organization Address [facility]/ZIP Code Phon e Number [facility] [address] [place], [place] [id number] [place] [address] LABS Hepatitis B surface antigen (06/04/2012 12:50 PM CDT) Analysis Performed At Patho logist Time Signature Hep B Surface Negative NEG [facility] Agn [facility] LABS Specimen Anatomical Collection Method Collection Time Receive d Time (Source) Location / / Volume Laterality Blood specimen 06/04/2012 12:50 3 (specimen) PM CDT 12:52 PM CDT Charan Salazar MD LAB - BLOOD ORDERABLES Performing Organization Address [facility]/ZIP Code Phon e Number [facility] [address] LABS Hepatitis B surface antibody (06/04/2012 12:50 PM CDT) P athologist Signature Hep B Surface 1.5 [facility] LABS Comment: Negative, No antibody detected when the value is less than 5.0 mlU/mL. Specimen Anatomical Collection Method Collection Time Receive d Time (Source) Location / / Volume Laterality Blood specimen 06/04/2012 12:50 3 (specimen) PM CDT 12:52 PM CDT Charan Salazar MD LAB - BLOOD ORDERABLES Performing Organization Address [facility]/ZIP Code Phon e Number [address] LABS Hepatitis B core antibody (06/04/2012 12:50 PM CDT) Analysis Performed At Patho logist Time Signature Hepatitis B Negative NEG [facility] LABS Specimen Anatomical Collection Method Collection Time Receive d Time (Source) Location / / Volume Laterality Blood specimen 06/04/2012 12:50 3 (specimen) PM CDT 12:52 PM CDT Charan Salazar MD LAB - BLOOD ORDERABLES Performing Organization Address [facility]/ZIP Code Phon e Number [address] LABS Vitamin K (06/04/2012 12:50 PM CDT) athologist Signature Vitamin K 0.99 [facility] LABS Comment: Reference range: 0.10 to 2.20 Unit: ng/mL (Note) Performed by [employer], [address] [place] [id number] [email or web address], Dodie Cotter MD, Lab. Director Specimen Anatomical Collection Method Collection Time Receive d Time (Source) Location / / Volume Laterality Blood specimen 06/04/2012 12:50 3 (specimen) PM CDT 12:52 PM CDT Charan Salazar MD LAB - BLOOD ORDERABLES Performing Organization Address [facility]/ZIP Code Phon e Number [address] LABS (ABNORMAL) Vitamin E (06/04/2012 12:50 PM CDT) athologist Signature Vitamin E 18.9 (H) [facility] LABS Comment: Reference range: 5.5 to 18.0 Unit: mg/L Vitamin E Gamma 1.3 [facility] LABS Comment: Reference range: 0.0 to 6.0 Unit: mg/L (Note) Performed by [employer], [address] [place] [address] www[email or web address], Dodie Cotter MD, Lab. Director Specimen Anatomical Collection Method Collection Time Receive d Time (Source) Location / / Volume Laterality Blood specimen 06/04/2012 12:50 3 (specimen) PM CDT 12:52 PM CDT Charan Salazar MD LAB - BLOOD ORDERABLES Performing Organization Address [facility] Phon e Number [address] LABS Vitamin A (06/04/2012 12:50 PM CDT) athologist Signature Vitamin A 0.80 [facility] LABS Comment: Reference range: 0.30 to 1.20 Unit: mg/L Retinol Palmitate 0.02 [facility] LABS Comment: Reference range: 0.00 to 0.10 Unit: mg/L Vitamin A Interp Normal [facility] LABS (Note) Performed by [employer], [address] [place] [address] [email or web address], Dodie Cotter MD, Lab. Director Specimen Anatomical Collection Method Collection Time Receive d Time (Source) Location / / Volume Laterality Blood specimen 06/04/2012 12:50 3 (specimen) PM CDT 12:52 PM CDT Charan Salazar MD LAB - BLOOD ORDERABLES Performing Organization Address [facility] Phon e Number [address] LABS Magnesium (06/04/2012 12:50 PM CDT) athologist Signature Magnesium 2.0 1.6 - 2.3 [facility] mg/dL [place] LABS Specimen Anatomical Collection Method Collection Time Receive d Time (Source) Location / / Volume Laterality Blood specimen 06/04/2012 12:50 3 (specimen) PM CDT 12:52 PM CDT Charan Slaazar MD LAB - BLOOD ORDERABLES Performing Organization Address [facility]/ZIP Code Phon e Number [address] LABS Zinc [[id number]] (06/04/2012 12:50 PM CDT) athologist Signature Zinc 79 [facility] LABS Comment: Reference range: 60 to 120 Unit: ug/dL (Note) INTERPRETIVE INFORMATION: Zinc, Serum Circulating zinc concentrations are depe ndent on albumin status and are depressed with malnutriti on. Zinc may also be lowered with infection, inflammation, stress, oral contraceptives, and . Zinc may be elevated with zinc supplementation or fasting. Elevate d zinc concentrations may interfere with copper absorption. Performed by [employer], [address] [place] [id number] [email or web address], Dodie Cotter MD, Lab. Director Specimen Anatomical Collection Method Collection Time Receive d Time (Source) Location / / Volume Laterality Blood specimen 06/04/2012 12:50 3 (specimen) PM CDT 12:52 PM CDT Charan Salazar MD LAB - BLOOD ORDERABLES Performing Organization Address [facility]/ZIP Code Phon e Number [address] LABS Vitamin B12 [[id number]] (06/04/2012 12:50 PM CDT) athologist Signature Vitamin B12 297 >210 pg/mL [facility] LAB[facility] Comment: Interp: 232-911 = Normal Specimen Anatomical Collection Method Collection Time Receive d Time (Source) Location / / Volume Laterality Blood specimen 06/04/2012 12:50 3 (specimen) PM CDT 12:52 PM CDT Charan Salazar MD LAB - BLOOD ORDERABLES Performing Organization Address [facility]/ZIP Code Phon e Number [facility] [address] LABS Tissue transglutaminase yrn IgA and IgG [[id number]] (06/04/2012 12:50 PM CDT) Patholo gist Method [...] LAB - BLOOD ORDERABLES Performing Organization Address [facility]/ZIP Code Phon e Number [facility] [address] LABS Prealbumin [[id number]] (06/04/2012 12:50 PM CDT) P athologist Signature Prealbumin 31 15 - 45 [facility] mg/dL [facility]AMPUS LABS Specimen Anatomical Collection Method Collection Time Receive d Time (Source) Location / / Volume Laterality Blood specimen 06/04/2012 12:50 3 (specimen) PM CDT 12:52 PM CDT Charan Salazar MD LAB - BLOOD ORDERABLES Performing Organization Address City/State/ZIP Code Phon e Number [facility] [address] LABS Lipase [[id number]] (06/04/2012 12:50 PM CDT) P athologist Signature Lipase 234 20 - 250 [facility] U/L [facility] LABS Specimen Anatomical Collection Method Collection Time Receive d Time (Source) Location / / Volume Laterality Blood specimen 06/04/2012 12:50 3 (specimen) PM CDT 12:52 PM CDT Charan Salazar MD LAB - BLOOD ORDERABLES Performing Organization Address City/State/ZIP Code Phon e Number [facility] [address] LABS Iron and iron binding capacity [[id number]] (06/04/2012 12:50 PM CDT) athologist Signature Iron 63 35 - 180 [facility] ug/dL [place] [facility] Iron Binding 324 240 - 430 [facility] Cap ug/dL [place] [facility]S Iron Saturation 19 15 - 46 % [facility] Y Index [facility] LAB[facility] Specimen Anatomical Collection Method Collection Time Receive d Time (Source) Location / / Volume Laterality Blood specimen 06/04/2012 12:50 3 (specimen) PM CDT 12:52 PM CDT Charan Salazar MD LAB - BLOOD ORDERABLES Performing Organization Address City/State/ZIP Code Phon e Number [facility] [address] LABS Folate [[id number]] (06/04/2012 12:50 PM CDT) athologist Signature Folate 11.9 >3.3 ng/mL [facility] LAB[facility] Comment: Interp: >5.4 ng/mL = Normal Specimen Anatomical Collection Method Collection Time Receive d Time (Source) Location / / Volume Laterality Blood specimen 06/04/2012 12:50 3 (specimen) PM CDT 12:52 PM CDT Charan Salazar MD LAB - BLOOD ORDERABLES Performing Organization Address City/State/ZIP Code Phon e Number [facility] [address] LABS Ferritin [[id number]] (06/04/2012 12:50 PM CDT) athologist Signature Ferritin 121 10 - 300 [facility] ng/mL CAMPUS LABS Specimen Anatomical Collection Method Collection Time Receive d Time (Source) Location / / Volume Laterality Blood specimen 06/04/2012 12:50 3 (specimen) PM CDT 12:52 PM CDT Charan Salazar MD LAB - BLOOD ORDERABLES Performing Organization Address City/State/ZIP Code Phon e Number [address] LABS Erythrocyte sedimentation rate auto [[id number]] (06/04/2012 12:50 PM CDT) athologist Signature Sed Rate 4 0 - 30 mm/h [facility] LABS Specimen Anatomical Collection Method Collection Time Receive d Time (Source) Location / / Volume Laterality Blood specimen 06/04/2012 12:50 3 (specimen) PM CDT 12:52 PM CDT Charan Salazar MD LAB - BLOOD ORDERABLES Performing Organization Address City/State/ZIP Code Phon e Number [facility] [address] LABS CRP inflammation [[id number]] (06/04/2012 12:50 PM CDT) Analysis Performed At Patho logist Time Signature CRP Inflammation <5.0 0.0 - 8.0 [facility] mg/L [facility] LAB[facility] Specimen Anatomical Collection Method Collection Time Receive d Time (Source) Location / / Volume Laterality Blood specimen 06/04/2012 12:50 3 (specimen) PM CDT 12:52 PM CDT Charan Salazar MD LAB - BLOOD ORDERABLES Performing Organization Address [facility]/ZIP Code Phon e Number [facility] [address] LABS Comprehensive metabolic panel [[id number]] (06/04/2012 12:50 PM CDT) P athologist Signature Sodium 144 133 - 144 [facility] mmol/L [place] LABS Potassium 4.4 3.4 - 5.3 [facility] mmol/L [place] [facility] Chloride 105 94 - 109 [facility] mmol/L [place] [facility]S Carbon Dioxide 22 20 - 32 [facility] mmol/L [place] [facility] Anion Gap 17 6 - 17 [facility] mmol/L [place] [facility]S Glucose 82 60 - 99 [facility] mg/dL CAMPUS LABS Comment: Non Fasting Urea Nitrogen 14 7 - 30 mg/dL [facility] LABS Creatinine 0.89 0.52 - 1.04 mg/dL [facility] [place] LABS GFR Estimate 65 >60 mL/min/1.7m2 [facility] GFR Estimate If Black 79 >60 mL/min/1.7m2 F [facility] LABS Calcium 8.8 8.5 - 10.4 mg/dL [facility] LABS Bilirubin Total 0.3 0.2 - 1.3 mg/dL [facility] Albumin 4.6 3.3 - 4.9 g/dL [facility] LABS Protein Total 7.7 6.8 - 8.8 g/dL [facility] UN[facility] S[facility] [place] LABS Alkaline Phosphatase 77 40 - 150 U/L [facility] ALT 23 0 - 50 U/L [facility] LABS AST 32 0 - 45 U/L [facility] LABS Specimen Anatomical Collection Method Collection Time Receive d Time (Source) Location / / Volume Laterality Blood specimen 06/04/2012 12:50 3 (specimen) PM CDT 12:52 PM CDT Charan Salazar MD LAB - BLOOD ORDERABLES Performing Organization Address City/State/ZIP Code Phon e Number [facility] [address] [place], [place] [phone] [place] [address] LABS (ABNORMAL) CBC with platelets differential [[id number]] (06/04/2012 12:50 PM CDT) [facility] gist Method Time Signature WBC 7.4 4.0 - [facility] 11.0 [facility] 10e9/L [place] [facility] RBC Count 4.91 3.8 - 5.2 [facility] 10e12/L [facility] Hemoglobin 14.7 11.7 - [facility] 15.7 g/dL [facility] Hematocrit 45.7 35.0 - [facility] 47.0 % [facility] MCV 93 78 - 100 [facility] fl [facility] MCH 29.9 26.5 - [facility] 33.0 pg [facility] MCHC 32.2 31.5 - [facility] 36.5 g/dL [facility] RDW 12.5 10.0 - [facility] 15.0 % [facility] Platelet Count 264 150 - 450 [facility] 10e9/L [facility] Diff Method Automated [facility] Method [facility] % Neutrophils 78.3 (H) 40 - 75 % [facility] % Lymphocytes 12.4 (L) 20 - 48 % [facility] % Monocytes 7.6 0 - 12 % [facility] % Eosinophils 0.5 0 - 6 % [facility] % Basophils 0.8 0 - 2 % [facility] % Immature 0.4 0 - 0.4 % [facility] Granulocytes [facility] Absolute 5.8 1.6 - 8.3 [facility] Neutrophil 10e9/L [facility] Absolute 0.9 0.8 - 5.3 [facility] Lymphocytes 10e9/L [facility] Absolute 0.6 0.0 - 1.3 [facility] Monocytes 10e9/L [facility] Absolute 0.0 0.0 - 0.7 [facility] Eosinophils 10e9/L [facility] Absolute 0.1 0.0 - 0.2 [facility] Basophils 10e9/L [facility] Abs Immature 0.0 0 - 0.03 [facility] Granulocytes 10e9/L [place] [facility] Specimen Anatomical Collection Method Collection Time Receive d Time (Source) Location / / Volume Laterality Blood specimen 06/04/2012 12:50 3 (specimen) PM CDT 12:52 PM CDT Charan Salazar MD LAB - BLOOD ORDERABLES Performing Organization Address [facility]/ZIP Code Phon e Number [facility] [address] LABS Bilirubin Fractionated [[id number]] (06/04/2012 12:50 PM CDT) P athologist Signature Bilirubin 0.0 0.0 - 0.3 [facility] Conjugated mg/dL CAMPUS LABS Bilirubin Delta 0.1 0.0 - 0.4 [facility] UNIVERSIT Y mg/dL [facility]AMP[facility] LABS Specimen Anatomical Collection Method Collection Time Receive d Time (Source) Location / / Volume Laterality Blood specimen 06/04/2012 12:50 3 (specimen) PM CDT 12:52 PM CDT Chaarn Salazar MD LAB - BLOOD ORDERABLES Performing Organization Address City/State/ZIP Code Phon e Number [facility] [address] LABS Amylase [[id number]] (06/04/2012 12:50 PM CDT) P athologist Signature Amylase 73 30 - 110 [facility] U/L [facility]AMPUS LABS Specimen Anatomical Collection Method Collection Time Receive d Time (Source) Location / / Volume Laterality Blood specimen 06/04/2012 12:50 3 (specimen) PM CDT 12:52 PM CDT Charan Salazar MD LAB - BLOOD ORDERABLES Performing Organization Address City/State/ZIP Code Phon e Number [facility] [address] LABS (ABNORMAL) Routine UA with Micro Reflex to Culture (06/04/2012 12:36 PM CDT) [facility] gist Method Time Signature Color Urine Yellow [facility] Appearance Urine Slightly [facility] Cloudy [facility] Glucose Urine Negative NEG mg/dL [facility] LABS Bilirubin Urine Negative NEG [facility] LABS Ketones Urine Negative NEG mg/dL [facility] Specific Boyle 1.018 1.003 - [facility] Urine 1.035 [facility] Blood Urine Negative [facility] pH Urine 5.0 5.0 - 7.0 [facility] pH [facility] Protein Albumin 10 (A) NEG mg/dL [facility] Urine [facility] Urobilinogen Normal 0.0 - 2.0 [facility] mg/dL mg/dL [facility] Nitrite Urine Negative NEG [facility] LABS Leukocyte Negative NEG [facility] Esterase Urine [facility] [place] [facility] Source Midstream [facility] Urine [facility] WBC Urine <1 0 - 2 [facility] /HPF [facility] RBC Urine 2 0 - 2 [facility] /HPF [facility] Squamous <1 0 - 1 [facility] Epithelial /HPF /HPF [facility]ITY Urine [facility] LABS Mucous Urine Present (A) NEG /LPF [facility] LABS Hyaline Casts 20 (H) 0 - 2 [facility] /LPF [facility] Calcium Oxalate Moderate (A) NEG /HPF [facility] LABS Specimen Anatomical Collection Method Collection Time Receive d Time (Source) Location / / Volume Laterality Urine specimen 06/04/2012 12:36 06/04/ 3 (specimen) PM CDT 12:37 PM CDT Charan Salazar MD LAB - URINE ORDERABLES Performing Organization Address City/State/ZIP Code Phon e Number [address] [address] [facility] LABS documented in this encounter Visit Diagnoses Diagnosis Crohn's disease of both small and large intestine with complication (H) - Primary 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
--- OUTSIDE RECORDS SUMMARY | 2021-10-26 13:39 | XMS_ITS | Encounter Summary ---
:1955 Author Organization [place] Address [address] [place] [address] Care Team Providers Name Role Phone Edison Tam MD Primary Care Provider Reason for Visit Reason Onset Date Comments Appointment 06/04/2012 Encounter Details Date Type Department Care Team Description 06/04/2012 Telephone Medicine GI - 1E Charan Salazar MD Appointment [address] [address] [address] Floor, [address] [place] [address] [place] [phone] Social History Tobacco Use Types Packs/Day [...] the scan, ifa sooner appt is warranted, Jocelyne will give her a call. No further questions at this time. AH documented in this encounter Plan of Treatment Not on filedocumented as of this encounter Visit Diagnoses Not on filedocumented in this encounter Care Teams Shell Core And Molding Supervisor Relationship Specialty Start Date End Date Edison Tam MD PCP - General Family Practice 09/21/11 07/22/14 909 [facility] [address] [place] [address] documented as of this encounter
--- OUTSIDE RECORDS SUMMARY | 2021-10-26 13:39 | XMS_ITS | Encounter Summary ---
:1955 Author Organization [place] Address [address] [place] [address] Care Team Providers Name Role Phone Edison Tam MD Primary Care Provider Reason for Visit Reason Onset Date Comments Refill Request 07/08/2012 Encounter Details Date Type Department Care Team Description 07/08/2012 Refill Medicine GI - 1E Charan Salazar MD Refill Request [phone] [place] [address] Floor, [facility] [address] [place] [address] [place] [phone] Social History Tobacco Use Types Packs/Day [...] 10:29 AM CDT Ordered B-12 injections/supplies per [id number] message from Dr. Salazar. Set up and sent to Dr. Salazar for approval and signature. Pt requested IM injections. Please arrange for monthly SQ injections documented in this encounter Plan of Treatment Not on filedocumented as of this encounter Visit Diagnoses Diagnosis B12 deficiency - Primary Other B-complex deficiencies documented in this encounter Care Teams Registered Nurse Post Partum Relationship Specialty Start Date End Date Edison aTm MD PCP - General Family Practice 09/21/11 07/22/14 909 [facility] [address] [place] [address] documented as of this encounter
--- OUTSIDE RECORDS SUMMARY | 2021-10-26 13:39 | XMS_ITS | Encounter Summary ---
:1955 Author Organization [place] Address [address] [place] [address] Care Team Providers Name Role Phone Edison Tam MD Primary Care Provider Reason for Visit Reason Onset Date Comments Previsit 03/24/2012 Left message on TweetPhotoic email regarding appt date/time Encounter Details Date Type Department Care Team Description 03/24/2012 PRE VISIT Colon and Rectal Alphonso Suresh MD Previsit (Left message Surgery Clinic [address] [facility] on voicemail regarding Butler Wangensteen 450 appt date/time) [place], [place] 1st Floor, Clinic [address] [place] [address] [place] [address] Social History Tobacco Use Types [...] times daily as needed. ??? ergocalciferol (ERGOCALCIFEROL) 73681 UNIT capsule One capsule twice weekly - [...] ??? Tramadol Itching and Rash Preferred Pharmacies: [facility] [address] [address] Patient instructions: Bring outside medical records, images, and/or studies Arrive 15 minutes early If health history form was received in the mail please bring to the appointment, or arrive early to complete health history form if patient did not receive. HISTORIAN documented in this encounter Plan of Treatment Not on filedocumented as of this encounter Visit Diagnoses Not on filedocumented in this encounter Care Teams Election Watcher Relationship Specialty Start Date End Date Edison Tam MD PCP - General Family Practice 09/21/11 07/22/14 909 [facility] 4 [place] [address] documented as of this encounter
--- OUTSIDE RECORDS SUMMARY | 2021-10-26 13:39 | XMS_ITS | Encounter Summary ---
:1955 Author Organization [place] Address [address] [place] [address] Care Team Providers Name Role Phone Edison Tam MD Primary Care Provider Reason for Visit Reason Onset Date Comments Patient Request 07/01/2012 Encounter Details Date Type Department Care Team Description 07/01/2012 Telephone Medicine GI - 1E Charan Salazar MD Patient Request Luke Barah[address] [address] 1st Floor, [address] [place] [address] [place] [phone] Social History Tobacco Use Types Packs/Day [...] worsening infection, that she should come the [facility] ED immediately for evaluation. Pt assures me that this is not the case currently, but states she is aware of what to watch for and will keep us updated accordingly. RECOMMENDATIONS: - Will have GI Clinic staff see if pt's MRI enterography can be moved up, would be fine w/ [id number] PO x1 for anxiety prior to procedure [...] w/ any further questions. Charan Salazar MD Four Slide Operator [facility] - Department of Medicine Division of Gastroenterology documented in this encounter Plan of Treatment Not on filedocumented as of this encounter Visit Diagnoses Not on filedocumented in this encounter Care Teams Integration Manager Relationship Specialty Start Date End Date Edison Tam MD PCP - General Family Practice 09/21/11 07/22/14 879 [facility] 4 [place] [address] documented as of this encounter
--- OUTSIDE RECORDS SUMMARY | 2021-10-26 13:39 | XMS_ITS | Encounter Summary ---
:1955 Author Organization [facility] Address [address] [place] [address] Care Team Providers Name Role Phone Edison Tam MD Primary Care Provider Encounter Details Date Type Department Care Team Description 05/03/2012 Results Only Physicians, [facility] 3[facility], Clinic 3A [phone] [place] [address] [place] [address] [place] [phone] Social History Tobacco Use Types Packs/Day [...] on filedocumented in this encounter Care Teams Tearer Press Clipping Relationship Specialty Start Date End Date Edison Tam MD PCP - General Family Practice 09/21/11 07/22/[address] [facility] 4 [place] [address] documented as of this encounter
--- OUTSIDE RECORDS SUMMARY | 2021-10-26 13:39 | XMS_ITS | Encounter Summary ---
:1955 Author Organization [place] Address [address] [place] [address] Care Team Providers Name Role Phone Edison Tam MD Primary Care Provider Reason for Visit Reason Onset Date Comments Pt. Information/instruction 02/21/2012 Encounter Details Date Type Department Care Team Description 02/21/2012 Telephone Dermatology Serg Melgar Pt. 5th Floor, Clinic 5A MD [place] Information/instructderrick Butler Wangensteen [address] [facility] [address] [place] [address] [phone] (Wo rk) Social History Tobacco Use Types [...] to see if she can tolerate it. 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 4 [place] [address] documented as of this encounter
--- OUTSIDE RECORDS SUMMARY | 2021-10-26 13:39 | XMS_ITS | Encounter Summary ---
:1955 Author Organization [place] Address [address] [place] [address] Care Team Providers Name Role Phone Edison Tam MD Primary Care Provider Reason for Visit Reason Onset Date Comments Pre Visit Planning - Done 04/17/2012 Encounter Details Date Type Department Care Team Description 04/17/2012 PRE VISIT Colon and Rectal Alphonso Suresh MD Pre Visit Planning - Surgery Clinic [address] Done Butler Wangensteen 450 Building [place], [place] 1st Floor, Clinic [address] [place] [address] [place] [address] Social History Tobacco Use Types [...] Place under the tongue. Dr Pelaez ??? [id number] Might-a mins spectrum once daily (Digestive Enzymes) [...] ??? Tramadol Itching and Rash Preferred Pharmacies: [facility] [address] [place] [address] & [address] [address] Patient instructions: Bring outside medical records, images, and/or studies Arrive 15 minutes early If health history form was received in the mail please bring to the appointment, or arrive early to complete health history form if patient did not receive. EWATER RIVER GUIDE documented in this encounter Plan of Treatment Not on filedocumented as of this encounter Visit Diagnoses Not on filedocumented in this encounter Care Teams Web Content Writer Relationship Specialty Start Date End Date Edison Tam MD PCP - General Family Practice 09/21/11 07/22/14 909 [facility] 4 [place] [address] documented as of this encounter
--- OUTSIDE RECORDS SUMMARY | 2021-10-26 13:39 | XMS_ITS | Encounter Summary ---
:1955 Author Organization [place] Address [address] [place] [address] Care Team Providers Name Role Phone Edison Tam MD Primary Care Provider Encounter Details Date Type Department Care Team Description 04/14/2012 Orders Only [facility] Renal mass, right; [facility] Cholelithiases 1st Floor, Clinic 1D Mail Code 152 [place], [place] [address] Social History Tobacco Use Types [...] Renal ma ss, right Results for this COMPUTER SUPPORT SPECIALIST INSTRUCTOR Cholelithiases procedure are in the results section. documented in this encounter Results US abdomen complete (04/14/2012 10:35 AM COMPUTER SUPPORT SPECIALIST INSTRUCTOR) Anatomical Region Laterality Modality Abdomen/Pelvis Ultrasound Specimen (Source) Anatomical Collection Method Collection Time Re ceived Time Location / / Volume Laterality 04/14/2012 10:35 AM COMPUTER SUPPORT SPECIALIST INSTRUCTOR Impressions 04/14/2012 3:44 PM COMPUTER SUPPORT SPECIALIST INSTRUCTOR Impression: 1. Cholelithiasis and gallbladder sludge without [...] agree with findings. Narrative 04/14/2012 3:44 PM COMPUTER SUPPORT SPECIALIST INSTRUCTOR Examination: ??US ABD COMPLETE* . Indication: ??Gallbladder [...] obstruction documented in this encounter Care Teams Supplier Quality Specialist Relationship Specialty Start Date End Date Edison Tam MD PCP - General Family Practice 09/21/11 07/22/[address] [facility] 4 [place] [address] documented as of this encounter
--- OUTSIDE RECORDS SUMMARY | 2021-10-26 13:39 | XMS_ITS | Encounter Summary ---
:1955 Author Organization [facility] Address [address] [place] [address] Care Team Providers Name Role Phone Edison Tam MD Primary Care Provider Reason for Visit Reason Onset Date Comments Previsit 06/23/2012 Encounter Details Date Type Department Care Team Description 06/23/2012 PRE VISIT [facility] Tyra Pittman MD Previsit 8th Floor, Clinic 8A [address] [place] [address] [phone] Social History Tobacco Use [...] on filedocumented in this encounter Care Teams Train Braker Relationship Specialty Start Date End Date Edison Tam MD PCP - General Family Practice 09/21/11 07/22/14 909 [facility] 4 [place] [address] documented as of this encounter
--- OUTSIDE RECORDS SUMMARY | 2021-10-26 13:39 | XMS_ITS | Encounter Summary ---
:1955 Author Organization [facility] Address [address] [place] [address] Care Team Providers Name Role Phone Edison Tam MD Primary Care Provider Reason for Visit Reason Onset Date Comments Refill Request 07/03/2012 Encounter Details Date Type Department Care Team Description 07/03/2012 Refill Medicine GI - 1E [facility]an [facility]azar [id number] [place] [address] Floor, [facility] [address] [place] [address] [place] [phone] Social History Tobacco Use Types Packs/Day [...] for approval and signature. [phone]. Also requests Zofran ODT for nausea. OK per Dr. Salazar. Will set up and send to DR. Salazar for approval and signature. documented in this encounter Plan of Treatment Not on filedocumented as of this encounter Visit Diagnoses Diagnosis Anxiety attack - Primary Panic disorder without agoraphobia Nausea Nausea alone documented in this encounter Care Teams District Court Judge Relationship Specialty Start Date End Date Edison Tam MD PCP - General Family Practice 09/21/11 07/22/14 909 [facility] 4 [place] [address] documented as of this encounter
--- OUTSIDE RECORDS SUMMARY | 2021-10-26 13:39 | XMS_ITS | Encounter Summary ---
:1955 Author Organization [place] Address [address] [place] [address] Care Team Providers Name Role Phone Edison Tam MD Primary Care Provider Reason for Visit Reason Comments Flu patient is being seen for fl u like symptoms Encounter Details Date Type Department Care Team Description 03/27/2012 Office Visit [facility], Primary Edison Tam Sinus infection (Primary Dx); Care Danish Kennedy MD Influenza; 3rd Floor, Clinic [address]A [address] [place] [address] Medication side effects; Luke Shi [place] 4 Rash; Building [phone] [place] [address] [place], [place] (Work) [phone] Social History Tobacco Use [...] Comments Blood Pressure 123/87 03/27/2012 12:07 PM CAMPGROUND HAND Pulse 95 03/27/2012 12:07 PM [facility] Temperature 36.7 ??C (98 ??F) 03/27/2012 12:07 PM [facility] Respiratory Rate - - Oxygen Saturation - - Inhaled Oxygen Concentration - - Weight 59.7 kg (131 lb 11.2 oz) 03/27/2012 12:07 PM [facility] Height 156.8 cm (5' 1.75) 03/27/2012 12:07 PM CAMPGROUND HAND Body Mass Index 24.28 03/27/2012 12:07 PM CAMPGROUND HAND documented in this encounter Patient Instructions Patient InstructionsMaddie Jessi L - 03/27/2012 12:14 PM CST [facility] Medication Refill Request Information: * Please contact your pharmacy regarding ANY request for medication refills. [facility] Prescription Fax = [phone] * Please allow 3 business days for routine medication refills. * Please allow 5 business days for controlled substance medication refills. Please call [phone] to schedule your lab appointment. GROUND HAND documented in this encounter Progress Notes Edison Tam MD - 03/27/2012 12:32 PM CST Maria E Norman is here for flu like symptoms. Onset of symptoms during the [employer] game. Generalizedmyalgia, fever, cough. She has had [...] (TYLENOL EXTRA STRENGTH PO) ??? ergocalciferol (ERGOCALCIFEROL) 76786 UNIT capsule ??? ALPRAZolam (XANAX XR) 2 [...] on file Social History Narrative Moved to [place] from [facility] to live with Twin sister Joan [place]. [...] and agreement with the above. Edison Tam GROUND HAND documented in this encounter Nursing Notes 03/27/2012 11:40 AM CST >> JESSI PERKINS [facility] Mar 27, 2012 12:10 PM Patient presents [...] unspecified documented in this encounter Care Teams Program Clinician Relationship Specialty Start Date End Date Edison Tam MD PCP - General Family Practice 09/21/11 07/22/[address] [place] [address] documented as of this encounter
--- OUTSIDE RECORDS SUMMARY | 2021-10-26 13:39 | XMS_ITS | Encounter Summary ---
:1955 Author Organization [place] Address [address] [place] [address]. [place] [address] Care Team Providers Name Role Phone Edison Tam MD Primary Care Provider Reason for Visit (Routine) - Closed Specialty Diagnoses / Procedures Referred By Contact Refer red To Contact Radiology Diagnoses MR ENTEROGRAPHY Procedure Notes: Intestinovesical fistula,Anal fistula,W/ low pelvic cuts,multi-organ fistulas (bladder, vagina, perianal) - request pelvic MRI cuts. [facility] Procedures RADIOLOGY [address] [place] [address] Phone: Referral ID Status Reason Start Date Expiration Date Visits Requ ested Visits Authorized [id number] Closed 06/12/2012 06/12/2013 1 1 Encounter Details Date Type Department Care Team Description 07/10/2012 [facility] Charan Salazar Intesti novesical fistula; Encounter [facility] Imaging Perianal fistula [address] [address] [place], [place] [phone] Social History Tobacco Use Types Packs/Day Years [...] Gel, Cream and Patch PRN ALPRAZolam (XANAX) 1 MG Take 1 mg [...] to procedure. May repeat x1 if necessary. multivitamin (THERA-PLUS) Take 5 mLs by 0 05/09/2017 LIQD mouth daily. ondansetron (ZOFRAN ODT) 4 MG Take 1 tablet by 20 tablet 1 07/03/2012 08/13/2012 disintegrating mouth every 8 tabletIndications: Nausea hours as needed for nausea. ORDER FOR DMEIndications: B12 Injection 12 each 0 201204/27/2013 deficiency Supplies for Vitamin B12: 3cc syringes w/ 27 gauge needles, 1 inch length [id number] Might-a mins 0 2013 spectrum once daily [...] ntified. 4. Cholelithiasis without evidence of ac akhiok cholecystitis. RADHA JOHNSON MD I have personally [...] ntified. 4. Cholelithiasis without evidence of ac akhiok cholecystitis. RADHA JOHNSON MD I have personally [...] *HW* documented in this encounter Care Teams Inspector Set Up And Lay Out Relationship Specialty Start Date End Date Edison Tam MD PCP - General Family Practice 09/21/11 07/22/14 909 [facility] 4 [place] [address] documented as of this encounter
--- OUTSIDE RECORDS SUMMARY | 2021-10-26 13:40 | XMS_ITS | Encounter Summary ---
:[address] Address [address] [place] [address] Care Team Providers Name Role Phone Edison Tam MD Primary Care Provider Reason for Visit Reason Onset Date Comments Symptoms 02/11/2012 Encounter Details Date Type Department Care Team Description 02/11/2012 Telephone Dermatology Serg Melgar MD Symptoms 5th Floor, Clinic [address] [address] [facility] [place] [phone] Social History Tobacco Use Types Packs/Day Years [...] the effudex was doing what we expected. CLE DETAILER Telephone Encounter - Anuja Berrios - 02/11/2012 [...] to know what she should do now CLE DETAILER documented in this encounter Plan of Treatment Not on filedocumented as of this encounter Visit Diagnoses Not on filedocumented in this encounter Care Teams Wireless Sales Manager Relationship Specialty Start Date End Date Edison aTm MD PCP - General Family Practice 09/21/11 07/22/14 499 [facility] 4 [place] [address] documented as of this encounter
--- OUTSIDE RECORDS SUMMARY | 2021-10-26 13:40 | XMS_ITS | Encounter Summary ---
:1955 Author Organization [place] Address [address] [place] [address] Care Team Providers Name Role Phone Edison Tam MD Primary Care Provider Reason for Visit Reason Onset Date Comments Medication Question 02/13/2012 Encounter Details Date Type Department Care Team Description 02/13/2012 Telephone Dermatology Serg Melgar, Medication Question 5th Floor, Clinic 5A MD [place] [phone] [facility] [address] [place] [address] [phone] (Wo rk) Social History Tobacco Use Types [...] call with any other questions or concerns. CONTROL ENGINEER documented in this encounter Plan of Treatment Not on filedocumented as of this encounter Visit Diagnoses Diagnosis AK (actinic keratosis) - Primary Actinic keratosis documented in this encounter Care Teams Probate Clerk Relationship Specialty Start Date End Date Edison Tam MD PCP - General Family Practice 09/21/11 07/22/14 909 [facility] 4 [place] [address] documented as of this encounter
--- OUTSIDE RECORDS SUMMARY | 2021-10-26 13:40 | XMS_ITS | Encounter Summary ---
:1955 Author Organization [place] Address [address] [facility] [place] [address] Care Team Providers Name Role Phone Edison Tam MD Primary Care Provider Encounter Details Date Type Department Care Team Description 02/21/2012 Orders Only [facility] Kathleen Church Ovarian mass ([facility] MD Marisol Dx) [place] [address] [place] 300 [place] [address] [place] [address] 300 [place], [place] (Work) [address] Social History Tobacco Use [...] scanned report in Epic. Yanick Scott MD UAL CLASSROOM MANAGER documented in this encounter Plan of Treatment Not on filedocumented as of this encounter Visit Diagnoses Diagnosis Ovarian mass - Primary Unspecified noninflammatory disorder of ovary, fallopian tube, and broad ligament documented in this encounter Care Teams Construction Site Crossing Guard Relationship Specialty Start Date End Date Edison Tam MD PCP - General Family Practice 09/21/11 07/22/[address] [address] documented as of this encounter
--- OUTSIDE RECORDS SUMMARY | 2021-10-26 13:40 | XMS_ITS | Encounter Summary ---
:1955 Author Organization [place] Address [address] [place] [address] Care Team Providers Name Role Phone Edison [...] discuss the use Visit Luke Salcedo E... [address] [address] Social History Tobacco Use Types [...] from the original note were not included. COUNSELOR documented in this encounter Nursing Notes 02/04/2012 [...] keratosis documented in this encounter Care Teams Clerk Manager Relationship Specialty Start Date End Date Edison Tam MD PCP - General Family Practice 09/21/11 07/22/14 909 [facility] 4 [place] [address] documented as of this encounter
--- OUTSIDE RECORDS SUMMARY | 2021-10-26 13:40 | XMS_ITS | Encounter Summary ---
:1955 Author Organization [facility] Address [address] [place] [address] Care Team Providers Name Role Phone Edison Tam MD Primary Care Provider Reason for Visit Reason Onset Date Comments Patient Request 01/24/2012 Encounter Details Date Type Department Care Team Description 01/24/2012 Telephone Dermatology Serg Melgar, Patient Request 5th Floor, Clinic 5A MD Luke Barahona[address] [place], [place] [address] [place], [place] [phone] (Wo rk) Social History Tobacco Use [...] to they can go get in Derm/Surg SIS MECHANIC documented in this encounter Plan of Treatment Not on filedocumented as of this encounter Visit Diagnoses Not on filedocumented in this encounter Care Teams Balance Assembler Relationship Specialty Start Date End Date Edison Tam MD PCP - General Family Practice 09/21/11 07/22/14 909 [facility] 4 [place] [address] documented as of this encounter
--- OUTSIDE RECORDS SUMMARY | 2021-10-26 13:40 | XMS_ITS | Encounter Summary ---
:1955 Author Organization [place] Address [address] [place] [address] Care Team Providers Name Role Phone Edison Tam MD Primary Care Provider Reason for Visit Reason Onset Date Comments Prior Authorization 02/14/2012 Approved Encounter Details Date Type Department Care Team Description 02/14/2012 Telephone Dermatology Serg Melgar Prior Authorization 5th Floor, Clinic 5A MD [place] (Approved) Luke Shi [address] 3800 [facility] [address] [place] [address] [phone] (Wo rk) Social History Tobacco Use Types [...] 06/14/2012. Pharmacy approved. Approval sent to scanning. TS PHYSIOLOGIST documented in this encounter Plan of Treatment Not on filedocumented as of this encounter Visit Diagnoses Not on filedocumented in this encounter Care Teams Dairy Consultant Relationship Specialty Start Date End Date Edison Tam MD PCP - General Family Practice 09/21/11 07/22/[address] [facility] 4 [place] [address] documented as of this encounter
--- OUTSIDE RECORDS SUMMARY | 2021-10-26 13:40 | XMS_ITS | Encounter Summary ---
:1955 Author Organization [place] Address [address] [place] [address]. [place] [address] Care Team Providers Name Role Phone Edison Tam MD Primary Care Provider Reason for Visit Reason Comments Nausea Diarrhea Encounter Details Date Type Department Care Team Description 02/06/2012 Emergency ZUU U7A OBSERVATION Cristhian Roberts MD [address] [place] [id number] Dehydration (Primary Dx); [facility], Storm Parker MD [address] [place] [address] Crohn's disease of both small and large intestine with complication (H); [place], [place] [address] Yossi's thyroiditis; [phone] Restless leg Social History Tobacco Use Types [...] Comments Blood Pressure 143/78 02/06/2012 4:13 PM DIRECT MAIL MARKETER Pulse 88 02/06/2012 4:13 PM DIRECT MAIL MARKETER Temperature 35.7 ??C (96.3 ??F) 02/06/2012 4:07 PM DIRECT MAIL MARKETER Respiratory Rate 16 02/06/2012 11:56 AM DIRECT MAIL MARKETER Oxygen Saturation 95% 02/06/2012 2:00 PM DIRECT MAIL MARKETER Inhaled Oxygen Concentration - - Weight 59 kg (130 lb) 02/06/2012 6:55 AM DIRECT MAIL MARKETER Height 157.5 cm (5' 2) 02/06/2012 6:55 AM DIRECT MAIL MARKETER Body Mass Index 23.78 02/06/2012 6:55 AM DIRECT MAIL MARKETER documented in this encounter Discharge Summaries Storm Domínguze MD - 02/06/2012 4:04 PM CST Physician Discharge Summary Patient ID: Maria E Norman [id number] 56 year old 1955 Admit date: 02/06/2012 Discharge date and time: 02/06/2012 Admitting Physician: Storm Domínguez MD Discharge Physician: Dr. Domínguez Admission Diagnoses: Dehydration [276.51] Crohn's disease of both small and large intestine with complication [555.2] [id number] Discharge Diagnoses: Dehydration Admission Condition: fair Discharged Condition: good Indication for Admission: Maria E Norman is an 56 year old female with a past medical history significant for crohn's disease since the age of 13 s/p extensive small and large bowel resections ([id number]), history of rectovaginal and urethrovaginal fistulas currently [...] NEG Ketones Urine Negative NEG mg/dL Specific [place] Urine 1.002 (*) 1.003 - 1.035 Blood Urine Negative NEG pH Urine 5.5 5.0 - 7.0 pH Protein Albumin Urine Negative NEG mg/dL Urobilinogen mg/dL Normal 0.0 - 2.0 mg/dL Nitrite Urine Negative NEG Leukocyte Esterase Urine Negative NEG Source Midstream Urine DRUG ABUSE SCREEN 6 CHEM DEP URINE ([facility]) Component Value Range Amphetamine Qual Urine [...] needed. MEDICATION NAME: Chantale Silver ergocalciferol (ERGOCALCIFEROL) 60630 UNIT capsule One capsule twice weekly - [...] the OBS Unit. Storm Domínguez MD, [facility] Staff Emergency Physician CT MAIL MARKETER documented in this encounter Discharge Instructions Discharge InstructionsElizabeth Pemberton PA-C - 02/06/2012 3:46 PM DIRECT MAIL MARKETER Maria E, You were admitted to the [...] about this appointment. Their phone number is [phone]. Please make sure to bring ALL of [...] with your primary care provider on 02/25/12. CT MAIL MARKETER AttachmentsThe following attachments cannot be sent through [...] capsule twice 8 capsule 0 09/26/2011 (ERGOCALCIFEROL) 60355 weekly - and Th UNIT capsule Levothyroxine [...] 06/05/2012 (RECLAST) 5 MG/100ML vein. Annually in [facility] the beginning of the year documented as of this encounter Progress Notes Wanda Parker RN - 02/06/2012 5:04 PM CST A/O x4. VSS. Pt ambulating in halls independently. Tolerating adequate PO. Discharge summary discussed and reviewed with patient. Discharge questions answered. Pt discharged to home, accompanied with family member. CT MAIL MARKETER Marisol Irene RN - 02/06/2012 3:38 PM CST Ambulating in loaiza with good tolerance. Fluids and diet taken well. CT MAIL MARKETER Marisol Irene RN - 02/06/2012 10:59 AM CST Patient oriented to call light and room. CT MAIL MARKETER Connie Schmidt RN - 02/06/2012 10:45 AM CST Pt arrived from ED via W/C accompanied by self. CT MAIL MARKETER documented in this encounter H&P Notes Storm Domínguez MD - 02/06/2012 11:47 AM CST Maria E Norman is an 56 year old female with a past medical history significant for crohn's diseasesince the age of 13 s/p extensive small and large bowel resections ([phone]), history of rectovaginal and urethrovaginal fistulas currently [...] Social History Narrative Moved [facility] [place] from [facility] to live with Twin sister [...] needed. MEDICATION NAME: Calms [place]e ergocalciferol (ERGOCALCIFEROL) 18256 UNIT capsule One capsule twice weekly - [...] NEG Ketones Urine Negative NEG mg/dL Specific [place] Urine 1.002 (*) 1.003 - 1.035 Blood Urine Negative NEG pH Urine 5.5 5.0 - 7.0 pH Protein Albumin Urine Negative NEG mg/dL Urobilinogen mg/dL Normal 0.0 - 2.0 mg/dL Nitrite Urine Negative NEG Leukocyte Esterase Urine Negative NEG Source Midstream Urine DRUG ABUSE SCREEN 6 CHEM DEP URINE ([facility]) Component Value Range Amphetamine Qual Urine [...] under my supervision. Storm Domínguez MD, [facility] Staff Emergency Physician CT MAIL MARKETER documented in this encounter ED Notes Fausto Chau RN - 02/06/2012 8:11 AM CST Attempted IV with ultrasound. Artery was cannulated, so pulled the IV at this time. Pt notified. CMSintact to fingers and hand. No pain. Pressure dressing applied. CT MAIL MARKETER Cristhian Roberts MD - 02/06/2012 7:35 AM [...] and Surgical History, and Social History inthe [employer] system. Review of Systems Constitutional: Positive for [...] NEG Ketones Urine Negative NEG mg/dL Specific [place] Urine 1.002 (*) 1.003 - 1.035 Blood [...] - Abnormal; Notable for the following: Specific [place] Urine 1.002 (*) All other components within normal limits LIPASE ORTHOSTATIC BLOOD PRESSURE AND PULSE DRUG ABUSE SCREEN 6 CHEM DEP URINE ([facility]) ??? sodium chloride 0.9 % 2,000 [...] small and large intestine with complication 02/06/2012 [facility] [place], EMERGENCY DEPARTMENT Cristhian Roberts MD 02/06/[address] MARK[address] Nadya Dodd RN - 02/06/2012 7:00 AM CST diarrhea and nausea for the past week, has a history of crohns disease CT MAIL MARKETER documented in this encounter Miscellaneous Notes Plan [...] denies nausea. Ambulating in halls independently. Yes. CT MAIL MARKETER Plan of Care - Marisol Irene RN [...] patient upright: NO. Denies pain; denies nausea. CT MAIL MARKETER Plan of Care - Marisol Irene RN [...] with standing and felt a little dizzy. CT MAIL MARKETER Plan of Care - Marisol Irene RN - 02/06/2012 11:41 AM CST Problem: IP GENERAL POC-ADULT,OB,BEHAVIORAL FVCPM Goal: Discharge Planning (Adult, OB, Behavioral, Peds) Outpatient/Observation goals to be met before discharge home: Diarrhea if improved: NO. Tolerating PO fluid: NO. Has not taken po yet. No orthostatic BP decrease or HR increase with patient upright: NO CT MAIL MARKETER documented in this encounter Plan of Treatment Not on filedocumented as of this encounter Procedures Procedure Name Priority Date/Time Associated Comments Diagnosis CBC WITH PLATELETS Timed 02/06/2012 2:12 PM Res ults for this DIRECT MAIL MARKETER procedure are i n the results section. OVA AND PARASITE EXAM Routine 02/06/2012 1:55 PM Results for this [place] DIRECT MAIL MARKETER procedure are i n the results section. CLOSTRIDIUM DIFFICILE Routine 02/06/2012 1:55 PM Results for this TOXIN B DIRECT MAIL MARKETER procedure are i n the results section. STOOL CULTURE Routine 02/06/2012 1:55 PM Results for this DIRECT MAIL MARKETER procedure are i n the results section. DRUG ABUSE SCREEN 6 STAT 02/06/2012 9:30 AM Re sults for this CHEM DEP URINE ([facility]) DIRECT MAIL MARKETER proced ure are in the results section. CBC WITH PLATELETS & STAT 02/06/2012 8:00 AM R esults for this DIFFERENTIAL DIRECT MAIL MARKETER procedure are i n the results section. LIPASE STAT 02/06/2012 8:00 AM Results f or this DIRECT MAIL MARKETER procedure are i n the results section. LACTIC ACID WHOLE STAT 02/06/2012 8:00 AM Resu lts for this BLOOD DIRECT MAIL MARKETER procedure are i n the results section. ERYTHROCYTE Routine 02/06/2012 8:00 AM Results f or this SEDIMENTATION RATE DIRECT MAIL MARKETER procedure are in AUTO the results section. CRP INFLAMMATION Routine 02/06/2012 8:00 AM Resul ts for this DIRECT MAIL MARKETER procedure are i n the results section. COMPREHENSIVE STAT 02/06/2012 8:00 AM Results for this METABOLIC PANEL DIRECT MAIL MARKETER procedure ar e in the results section. UA MACROSCOPIC WITH STAT 02/06/2012 7:29 AM Re sults for this REFLEX TO MICRO AND DIRECT MAIL MARKETER procedur e are in CULTURE the results section. documented in this encounter Results CBC with platelets (02/06/2012 2:12 PM DIRECT MAIL MARKETER) athologist Signature WBC 9.9 4.0 - 11.0 [facility] 10e9/L [facility] RBC Count 4.66 3.8 - 5.2 [facility] 10e12/L [facility] Hemoglobin 14.0 11.7 - [facility] 15.7 g/dL [facility] Hematocrit 42.5 35.0 - [facility] 47.0 % [facility] MCV 91 78 - 100 [facility] fl CAMPUS LABS MCH 30.0 26.5 - [facility] 33.0 pg CAMPUS LABS MCHC 32.9 31.5 - [facility] 36.5 g/dL CAMPUS LABS RDW 13.7 10.0 - [facility] 15.0 % CAMPUS LABS Platelet Count 219 150 - 450 [facility] 10e9/L [facility] Specimen Anatomical Collection Method Collection Time Receive d Time (Source) Location / / Volume Laterality Blood specimen 02/06/2012 2:12 PM 012 2:13 (specimen) DIRECT MAIL MARKETER PM DIRECT MAIL MARKETER Elizabeth Pena PA-C LAB - BLOOD ORDERABLES Performing Organization Address City/State/ZIP Code Phon e Number [facility] [address] [place] [address] [facility] Stool Culture, Routine (Salmonella, Shigella, Campylobacter, E. coli O157) (02/06/2012 1:55 PM DIRECT MAIL MARKETER) Component Value Ref Test Analysis Performed At [facility] Method Time Signature Specimen Feces [facility] LABS Shiga-Toxins Specimen older than two hour s and not received in preservative, therefore, test [facility] 1&2 cannot be performed. ??In t he future, all stools for enteric pathogens and shiga MICROBIOLOGY toxin must be received in p reservative that has been refrigerated or both tests will be cancelled. ??See Lab Guide for more detail. Culture Micro No Salmonella, Shigella, Cam pylobacter, E. coli O157, Aeromonas, or Plesiomonas [facility] isolated. MICROBIOLOGY Micro Report FINAL [facility] Status 02/09/2012 MICROBIOLOGY Specimen Anatomical Collection Method Collection Time Receive d Time (Source) Location / / Volume Laterality Stool specimen 02/06/2012 1:55 PM 012 2:56 (specimen) DIRECT MAIL MARKETER PM DIRECT MAIL MARKETER Elizabeth Pena PA-C LAB - MICRO ORDERABL ES Performing Organization Address City/[facility] Code Phon e Number [facility] [address] [place], [place] [id number] [place] [address] LABS [facility] MICROBIOLOGY Ova and Parasite Exam [place] (02/06/2012 1:55 PM DIRECT MAIL MARKETER) Component Value Ref Test Analysis Performed At [facility] Method [place] Signature Source Feces [facility] Ova and FINAL 02/07/122030 [facility] Parasite Exam (Note) [facility] SOURCE: STOOL [facility] PARASITIC EXAMINATION ?FINAL No parasites seen. Cryptosporidium, Cyclospora, and microsporidia are not readily detected by this method. Single negative specimen does not rule out parasitic infection. Test Performed by: [facility] [address] [place] [address] Echo Vascular Technologist: Ritesh Tay III, M.D. Specimen Anatomical Collection Method Collection Time Receive d Time (Source) Location / / Volume Laterality Stool specimen 02/06/2012 1:55 PM 012 2:56 (specimen) DIRECT MAIL MARKETER PM DIRECT MAIL MARKETER Elizabeth Pena PA-C LAB - [place] GENERAL ORDERABL ES Performing Organization Address City/[facility] Phon e Number [address] [address] [facility] Clostridium difficile toxin B PCR (02/06/2012 1:55 PM DIRECT MAIL MARKETER) Component Value Ref Test Analysis Performed At [facility] Method Time Signature Specimen Feces [facility] Description [facility] C Diff Toxin B Negative: Clostridium diffic ile target DNA sequences NOT detected, presumed [facility] PCR negative for Clostridium di fficile toxin B or the number of bacteria present [facility] may be below the limit of detection for the test. [facility] FDA approved assay performed using [employer] GeneXpert real-t gama PCR. A negative result [...] specimen 02/06/2012 1:55 PM 012 2:55 (specimen) DIRECT MAIL MARKETER PM DIRECT MAIL MARKETER Elizabeth Pena PA-C LAB - MICRO GENERAL ORDERABL ES Performing Organization Address [facility] Phon e Number [address] [address] [facility] Drug abuse screen 6 urine (tox) (02/06/2012 9:30 AM DIRECT MAIL MARKETER) Component Value Ref Test Analysis Performed At [facility] [place] Method Time Signature Amphetamine Qual Negative NEG [facility] Urine Cutoff for a negative amphetamine is 500 ng/mL or less. [facility] Barbiturates Qual Negative NEG [facility] Urine Cutoff for a negative barbiturate is 200 ng/mL or less. [facility] Benzodiazepine Negative NEG [facility] Qual Urine Cutoff for a negative benzodiazepine is 200 ng/mL or less . [facility] Cannabinoids Qual Negative NEG [facility] Urine Cutoff for a negative cannabinoid is 50 ng/mL or less. [facility] Cocaine Qual Negative NEG [facility] Urine Cutoff for a negative cocaine is 300 ng/mL or less. [facility] Ethanol Qual Negative NEG [facility] Urine Cutoff for a negative urine ethanol is 50 mg/dL or less. [facility] Opiates Negative NEG [facility] Qualitative Urine Cutoff for a negative opiate is 300 ng/mL or less. [facility] Specimen Anatomical Collection Method Collection Time Receive d Time (Source) Location / / Volume Laterality Urine specimen URINE SPECIMEN 02/06/2012 9:30 AM 02/05 (specimen) OBTAINED BY CLEAN DIRECT MAIL MARKETER 10:[address] CATCH PROCEDURE / Unknown Cristhian Roberts MD LAB - URINE ORDERABLES Performing Organization Address City/[facility]/ZIP Code Phon e Number [address] LABS Erythrocyte sedimentation rate auto (02/06/2012 8:00 AM DIRECT MAIL MARKETER) P athologist Signature Sed Rate 5 0 - 30 mm/h [facility]S Specimen Anatomical Collection Method Collection Time Receive d Time (Source) Location / / Volume Laterality 02/06/2012 8:00 AM 2 8:13 DIRECT MAIL MARKETER AM DIRECT MAIL MARKETER Cristhian Roberts MD LAB - BLOOD ORDERABLES Performing Organization Address City/[facility]/ZIP Code Phon e Number [address] LABS CRP inflammation (02/06/2012 8:00 AM DIRECT MAIL MARKETER) Analysis Performed At Patho logist Time Signature CRP Inflammation <5.0 0.0 - 8.0 [facility] mg/L [facility] Specimen Anatomical Collection Method Collection Time Receive d Time (Source) Location / / Volume Laterality 02/06/2012 8:00 AM 2 8:13 DIRECT MAIL MARKETER AM DIRECT MAIL MARKETER Cristhian Roberts MD LAB - BLOOD ORDERABLES Performing Organization Address City/State/ZIP Code Phon e Number [address] LABS (ABNORMAL) Lactic acid (02/06/2012 8:00 AM DIRECT MAIL MARKETER) P athologist Signature Lactic Acid 3.3 (H) 0.7 - 2.1 [facility] mmol/L [facility] Specimen Anatomical Collection Method Collection Time Receive d Time (Source) Location / / Volume Laterality Blood specimen 02/06/2012 8:00 AM 012 8:14 (specimen) DIRECT MAIL MARKETER AM DIRECT MAIL MARKETER Cristhian Roberts MD LAB - BLOOD ORDERABLES Performing Organization Address City/[facility]/ZIP Code Phon e Number [address] LABS Lipase (02/06/2012 8:00 AM DIRECT MAIL MARKETER) P athologist Signature Lipase 187 20 - 250 [facility] Specimen Anatomical Collection Method Collection Time Receive d Time (Source) Location / / Volume Laterality Blood specimen 02/06/2012 8:00 AM 012 8:13 (specimen) DIRECT MAIL MARKETER AM DIRECT MAIL MARKETER Cristhian Roberts MD LAB - BLOOD ORDERABLES Performing Organization Address City/State/ZIP Code Phon e Number [phone] [place], [place] [address]C [facility] (ABNORMAL) Comprehensive metabolic panel (02/06/2012 8:00 AM DIRECT MAIL MARKETER) Patholo gist Method Time Signature Sodium 143 133 - 144 [facility] mmol/L [facility] Potassium 3.7 3.4 - 5.3 [facility] mmol/L [facility] Chloride 108 94 - 109 [facility] mmol/L [facility] Carbon Dioxide 20 20 - 32 [facility] mmol/L [facility] Anion Gap 14 6 - 17 [facility] mmol/L [facility] Glucose 122 (H) 60 - 99 [facility] mg/dL [facility] Urea Nitrogen 8 7 - 30 [facility] mg/dL [facility] Creatinine 0.70 0.52 - [facility] 1.04 mg/dL [facility] GFR Estimate 86 >60 [facility] mL/min/1.7 [facility] m2 CAMPUS [facility] GFR Estimate If >90 >60 [facility] Black mL/min/1.7 [place] m2 [facility]AMPUS [facility] Calcium 9.8 8.5 - 10.4 [facility] mg/dL [facility] Bilirubin Total 0.5 0.2 - 1.3 [facility] mg/dL [facility] Albumin 4.2 3.3 - 4.9 [facility] g/dL [facility] Protein Total 6.9 6.8 - 8.8 [facility] g/dL [facility] Alkaline 89 40 - 150 [facility] Phosphatase U/L [facility] ALT 14 0 - 50 U/L [facility] AST 23 0 - 45 U/L [facility] Specimen Anatomical Collection Method Collection Time Receive d Time (Source) Location / / Volume Laterality Blood specimen 02/06/2012 8:00 AM 012 8:13 (specimen) DIRECT MAIL MARKETER AM DIRECT MAIL MARKETER Cristhian Roberts MD LAB - BLOOD ORDERABLES Performing Organization Address City/State/ZIP Code Phon e Number [facility] [address] [place] [address] [facility] ([facility]NORMAL) CBC with platelets differential (02/06/2012 8:00 AM DIRECT MAIL MARKETER) [facility] gist Method Time Signature WBC 11.0 4.0 - [facility] 11.0 [facility] 10e9/L [facility]AMP[facility] RBC Count 5.35 (H) 3.8 - 5.2 [facility] 10e12/L [facility] Hemoglobin 16.2 (H) 11.7 - [facility] 15.7 g/dL [facility] Hematocrit 47.5 (H) 35.0 - [facility] 47.0 % [facility] MCV 89 78 - 100 [facility] fl [facility] MCH 30.3 26.5 - [facility] 33.0 pg [facility] MCHC 34.1 31.5 - [facility] 36.5 g/dL [facility] RDW 13.4 10.0 - [facility] 15.0 % [facility] Platelet Count 262 150 - 450 [facility] 10e9/L [facility] Diff Method Automated [facility] Method [facility] % Neutrophils 74.2 40 - 75 % [facility] % Lymphocytes 14.6 (L) 20 - 48 % [facility] % Monocytes 10.2 0 - 12 % [facility] % Eosinophils 0.5 0 - 6 % [facility] % Basophils 0.1 0 - 2 % [facility] % Immature 0.4 0 - 0.4 % [facility] Granulocytes [facility] Absolute 8.2 1.6 - 8.3 [facility] Neutrophil 10e9/L [facility] Absolute 1.6 0.8 - 5.3 [facility] Lymphocytes 10e9/L [facility] Absolute 1.1 0.0 - 1.3 [facility] Monocytes 10e9/L [facility] Absolute 0.1 0.0 - 0.7 [facility] Eosinophils 10e9/L [facility] Absolute 0.0 0.0 - 0.2 [facility] Basophils 10e9/L [facility] Abs Immature 0.0 0 - 0.03 [facility] Granulocytes 10e9/L [facility] Specimen Anatomical Collection Method Collection Time Receive d Time (Source) Location / / Volume Laterality Blood specimen 02/06/2012 8:00 AM 012 8:13 (specimen) DIRECT MAIL MARKETER AM DIRECT MAIL MARKETER Cristihan Roberts MD LAB - BLOOD ORDERABLES Performing Organization Address City/State/ZIP Code Phon e Number [address] [address] [facility] (ABNORMAL) UA reflex to microscopic and culture (02/06/2012 7:29 AM DIRECT MAIL MARKETER) [facility] gist Method Time Signature Color Urine Straw [facility] Appearance Urine Clear [facility] Glucose Urine Negative NEG mg/dL [facility] Bilirubin Urine Negative NEG [facility] Ketones Urine Negative NEG mg/dL [facility] Specific [place] 1.002 (L) 1.003 - [facility] Urine 1.035 [facility] Blood Urine Negative NEG [facility] pH Urine 5.5 5.0 - 7.0 [facility] pH [facility] Protein Albumin Negative NEG mg/dL [facility] Urine [facility] Urobilinogen Normal 0.0 - 2.0 [facility] mg/dL mg/dL [facility] Nitrite Urine Negative NEG [facility] Leukocyte Negative NEG [facility] Esterase Urine [facility] Source Midstream [facility] Urine [facility] Specimen Anatomical Collection Method Collection Time Receive d Time (Source) Location / / Volume Laterality Urine specimen URINE SPECIMEN 02/06/2012 7:29 AM 02/05 8:15 (specimen) OBTAINED BY CLEAN DIRECT MAIL MARKETER AM DIRECT MAIL MARKETER CATCH PROCEDURE / Unknown Cristhian Roberts MD LAB - URINE ORDERABLES Performing Organization Address City/[facility]/ZIP Code Phon e Number [address] [address] [facility] documented in this encounter Visit Diagnoses [...] 24 hr tablet Given 02/06/2012 12:20 PM DIRECT MAIL MARKETER 2 mg 2 mg 2 mg, Oral, EVERY MORNING, First dose on Sat02/06/12 at 1130, DO NOT CRUSH. Avoid taking with grapefruit juice buPROPion (WELLBUTRIN SR) 12 hr tablet 150 Given 02/06/2012 12:25 PM DIRECT MAIL MARKETER 150 mg mg 150 mg, Oral, 2 TIMES DAILY, First dose on Sat02/06/12 at 1130, DO NOT CRUSH. dextrose 5 % and 0.9 % NaCl + KCl 20 New Bag 02/06/2012 12:[address] 125 mL/hr mEq/L at 125 mL/hr, Intravenous, CONTINUOUS, Starting on Sat02/06/12 at 1130, Until Sat02/06/12 at 1913 droperidol (INAPSINE) injection 0.625 mg Given 02/06/2012 9:23 AM DIRECT MAIL MARKETER 0.625 mg 0.625 mg, Intravenous, ONCE, On Sat02/06/12 at 0747, For 1 dose, If dose >1.25mg the patient needs a baseline EKG to r/o prolonged QT interval. Do not use drug if QT >440 for males or >450 for females. sports analyst is required for 3 hours after a dose >1.25mg. predniSONE (DELTASONE) tablet 10 mg Given 02/06/2012 1:47 PM DIRECT MAIL MARKETER 10 mg 10 mg, Oral, DAILY, First dose on Sat02/06/12 at 1315 propranolol (INDERAL) tablet 20 mg Given 02/06/2012 1:47 PM DIRECT MAIL MARKETER 20 mg 20 mg, Oral, DAILY, First dose on Sat02/06/12 at 1300 sodium chloride 0.9 % BOLUS New Bag 02/06/2012 9:22 AM DIRECT MAIL MARKETER 2,000 m Ls 2000 mL/hr 2,000 mL Intravenous, 2,000 mL, ONCE, at 2,000 mL/hr, Administer over 1 Hours, On Sat02/06/12 at 0747, For 1 dose venlafaxine (EFFEXOR-ER) 24 hr tablet 15 0 mg Given 02/06/2012 12:25 PM DIRECT MAIL MARKETER 150 mg 150 mg, Oral, DAILY, First dose on Sat02/06/12 at 1130, DO NOT CRUSH. documented in this encounter Active and Recently Administered Medications Times are shown in DIRECT MAIL MARKETER. Scheduled Medication Order 02/04/2012 02/05/2012 02/06/2012 ALPRAZolam [...] for males or >450 for fe males. sports analyst is required for 3 hours after a [...] 1130 documented in this encounter Care Teams Ordnance Engineering Technician Relationship Specialty Start Date End Date Edison Tam MD PCP - General Family Practice 09/21/11 07/22/14 909 [facility] 4 [place] [address] documented as of this encounter
--- OUTSIDE RECORDS SUMMARY | 2021-10-26 13:40 | XMS_ITS | Encounter Summary ---
:1955 Author Organization [place] Address [address] [place] [address] Care Team Providers Name Role Phone Edison Tam MD Primary Care Provider Reason for Referral Specialty Diagnoses / Procedures Referred By Contact Refer red To Contact Edison Tam MD [address] [place] [address] 5 Referral ID Status Reason Start Date Expiration Date Visits Requ ested Visits Authorized ER MACHINE OPERATOR Specialty Diagnoses / Procedures Referred By Contact Refer red To Contact Edison Tam MD [address] [place] [address] 5 Referral ID Status Reason Start Date Expiration Date Visits Requ ested Visits Authorized ER MACHINE OPERATOR Specialty Diagnoses / Procedures Referred By Contact Radha isaac To Contact Edison Tam MD [address] [place] [address] 5 Referral ID Status Reason Start Date Expiration Date Visits Requ ested Visits Authorized ER MACHINE OPERATOR Specialty Diagnoses / Procedures Referred By Contact Radha isaac To Contact Edison Tam MD 909 [facility] [place] 4 [place], [place] [address] Referral ID Status Reason Start Date Expiration Date Visits Requ ested Visits Authorized ER MACHINE OPERATOR Reason for Visit Reason Comments Hospital F/U [...] complication (H); 3rd Floor, Clinic 3A 909 [facility] Fistula; [facility] 4 Yossi's thyroiditis; Building [place], [place] Hypocalcaemia; [address] [place] [address] Dysuria; [facility] 88 Chronic pain [place], [place] (Work) [phone] Social History Tobacco Use [...] Comments Blood Pressure 144/91 02/04/2012 2:09 PM BENDER MACHINE OPERATOR Pulse 87 02/04/2012 2:09 PM BENDER MACHINE OPERATOR Temperature - - Respiratory Rate - - Oxygen Saturation - - Inhaled Oxygen Concentration - - Weight 60.3 kg (133 lb) 02/04/2012 2:09 PM BENDER MACHINE OPERATOR Height - - Body Mass Index 24.33 01/21/2012 10:43 AM BENDER MACHINE OPERATOR documented in this encounter Patient Instructions Patient InstructionsAnkit Serra - 02/04/2012 2:09 PM CST [facility] Medication Refill Request Information: * Please contact your pharmacy regarding ANY request for medication refills. [facility] Prescription Fax = [phone] * Please allow 3 business days for routine medication refills. * Please allow 5 business days for controlled substance medication refills. ER MACHINE OPERATOR documented in this encounter Progress Notes Edison [...] and colon rectal care here at the [facility]. She was brought to the hospital via [...] rectal and urologycare coordinated here through the [facility] rather than seeing community providers. She is just establishing her care here in the [facility] and I think that is reasonable. She [...] agreeable to that. However, we will have psychotherapist social worker call as Maria E does not completely [...] (TYLENOL EXTRA STRENGTH PO) ??? ergocalciferol (ERGOCALCIFEROL) 84860 UNIT capsule ??? propranolol (INDERAL) 20 MG [...] on file Social History Narrative Moved to [place] from [facility] to live with Twin sister Joan [place]. [...] Ketones Urine 5 (*) NEG mg/dL Specific [place] Urine 1.014 1.003 - 1.035 Blood Urine [...] Micro No growth Micro Report Status FINAL [id number] BLOOD CULTURE Component Value Range Specimen Description Blood Right Hand Culture Micro No growth Micro Report Status FINAL [id number] LACTIC ACID WHOLE BLOOD Component Value Range [...] her kidney. She has an appointment with [facility] later on this week. 3. Hypothyroidism, currently [...] SURGERY REFERRAL - UROLOGY ADULT REFERRAL - ELECTRONICS RECYCLER REFERRAL: We will have social service contact [...] Antinuclear antibody screen by EIA; Future - ELECTRONICS RECYCLER REFERRAL Other Orders - buprenorphine HCl-naloxone HCl (SUBOXONE) 8-2 MG FILM; Place under the tongue as needed. This is filled by another provider. All questions were addressed. She voiced understanding and agreement with the above. I encouraged her to seek medical attention if her symptoms worsen and if she is not able to keep down food. Edison Tam ER MACHINE OPERATOR documented in this encounter Nursing Notes 02/04/2012 2:05 PM CST >> ANKIT [facility] Feb 04, 2012 2:10 PM Patient presents [...] small and large intestine with complication (H) ELECTRONICS RECYCLER REFERRAL Referral Routine Chronic Pain Ordered: Crohn's disease of 2 both small and large intestine with complication (H) documented as of this encounter Procedures Procedure Name Priority Date/Time Associated Comments Diagnosis ROUTINE UA WITH Routine 02/04/2012 2:59 PM Dysuria Result s for this MICROSCOPIC REFLEX TO BENDER MACHINE OPERATOR proced ure are in CULTURE the results section. documented in this encounter Results (ABNORMAL) Routine UA with micro reflex to culture (02/04/2012 2:59 PM BENDER MACHINE OPERATOR) [facility] gist Method Time Signature Color Urine Yellow [facility] Appearance Urine Clear [facility] Glucose Urine Negative NEG mg/dL [facility] Bilirubin Urine Negative NEG [facility] Ketones Urine Negative NEG mg/dL [facility] Specific [place] 1.019 1.003 - [facility] Urine 1.035 [facility] Blood Urine Trace (A) NEG [facility] pH Urine 5.5 5.0 - 7.0 [facility] pH [facility] Protein Albumin Negative NEG mg/dL [facility] Urine [facility] Urobilinogen Normal 0.0 - 2.0 [facility] mg/dL mg/dL [facility] Nitrite Urine Negative NEG [facility] Leukocyte Trace (A) NEG [facility] Esterase Urine [facility] Source Midstream [facility] Urine [facility] WBC Urine 3 (H) 0 - 2 [facility] /[facility] RBC Urine 1 0 - 2 [facility] /[facility]PF [facility] Squamous 1 0 - 1 [facility] Epithelial /HPF /HPF [facility] Mucous Urine Present (A) NEG /LPF [facility] Specimen Anatomical Collection Method Collection Time Receive d Time (Source) Location / / Volume Laterality Urine specimen 02/04/2012 2:59 PM 012 4:02 (specimen) BENDER MACHINE OPERATOR PM BENDER MACHINE OPERATOR Edison Tam MD LAB - URINE ORDERABLES Performing Organization Address City/State/ZIP Code Phon e Number [facility] [address] [place] [address] [place] [facility] documented in this encounter Visit Diagnoses [...] pain documented in this encounter Care Teams Corporate Claims Examiner Relationship Specialty Start Date End Date Edison Tam MD PCP - General Family Practice 09/21/11 07/22/[address] [id number] documented as of this encounter
--- OUTSIDE RECORDS SUMMARY | 2021-10-26 13:40 | XMS_ITS | Encounter Summary ---
:1955 Author Organization [place] Address [address] [place] [address] Care Team Providers Name Role Phone Edison Tam MD Primary Care Provider Reason for Visit Reason Onset Date Comments Prior Authorization 02/14/2012 Encounter Details Date Type Department Care Team Description 02/14/2012 Telephone Dermatology Serg Melgar, Prior Authorization 5th Floor, Clinic 5A [place] [address] [facility] [address] [place] [address] [phone] (Wo rk) Social History Tobacco Use Types Packs/Day Years Used Date Former Smoker 1 18 Smokeless Tobacco: Former User Q uit: 09/20/1991 Alcohol Use Standard Drinks/Week Comments No 0 (1 standard drink = 0.6 oz pure alcoho l) Sex Assigned at Date Recorded Not on file documented as of this encounter Miscellaneous Notes Telephone Encounter - Angie Jrery - 02/14/2012 11:36 AM CST PA form for ALDARA 5% cream filled out and faxed to [phone]. PA sent to [facility]. PAPER HANGER documented in this encounter Plan of Treatment Not on filedocumented as of this encounter Visit Diagnoses Not on filedocumented in this encounter Care Teams Attending Pathologist Relationship Specialty Start Date End Date Edison Tam MD PCP - General Family Practice 09/21/11 07/22/[address] [address] documented as of this encounter
--- OUTSIDE RECORDS SUMMARY | 2021-10-26 13:40 | XMS_ITS | Encounter Summary ---
:1955 Author Organization [place] Address [facility] [place] [address] Care Team Providers Name Role Phone Edison Tam MD Primary Care Provider Reason for Visit Reason Comments RECHECK Follow-up ULS pelvic Encounter Details Date Type Department Care Team Description 02/21/2012 Office Visit [facility] Jose Church MD [address] [facility] [address] [place] [address] Ovarian cyst ([facility] Erlinda Nur MD Dx) [address] Professional Bldg [facility] 88 3rd Flr,[facility] 300 [place] [phone] Social History Tobacco Use Types Packs/Day Years [...] - Inhaled Oxygen Concentration - - Weight 61.5 kg (135 lb 8 oz) 02/21/2012 3:51 PM POTTERY DECORATOR Height 157.5 cm (5' 2) 02/21/2012 3:51 PM POTTERY DECORATOR Body Mass Index 24.78 02/21/2012 3:51 PM POTTERY DECORATOR documented in this encounter Progress Notes Erlinda Nur MD - 02/21/2012 8:02 PM CST Hammer Shop Supervisor Clinic Follow up Maria E is a 56 year old P0010 postmenopausal woman who is following up in clinic today. She was lastseen in December for consultation after an incidental ovarian cystic structure was seen on CT scan. This CT was done for trauma workup. Last visit we decided to follow up with a pelvic ultrasound. She had this ultrasound today and we reviewed the findings. Discussed that the cyst is simple in nature with few calcifications. Discussed with findings with Dr. Scott as well. Likely that this cyst is benign in nature. Decision was made to continue to monitor with ultrasound again in 3-6 months. Maria E reports having several recent illnesses for which she was admitted for dehydration. She continues to h ave leaking from her fistulous tracts which she describes having near her urethra, in vagina and along vulva and rectum. She reports being monitored for Gallbladder and a kidney mass as well. She was feeling very nervous about this cyst on her ovary. Filed Vitals: 02/21/12 1551 Height: 1.575 m (5' 2) Weight: 61.462 kg (135 lb 8 oz) General: NAD, interactive and pleasant Pelvic US today: right simple cyst 1.3x1.2x0.75 cm with calcifications in superior aspect o/w nl appearing A/P: Maria E is a 56 year old P0010 postmenopausal woman with a right simple ovarian cyst with small calcifications. Will have patient f/u in 3-6 months for repeat US - Will discuss pelvic exam at next visit Asked to return sooner for any concern, particularly vaginal bleeding, pelvic pain. Reviewed that there is no great screening for ovarian cancer and symptoms that women have can sometimes be very vague and mimic her symptoms she has with her crohn's. No FH of ovarian cancer, colon cancer. Paternal great aunt with breast cancer. Erlinda Nur MD The Patient was seen in [facility] by ERLINDA NUR. I reviewed the history & exam. Assessment and plan were jointly made. Kathleen Church MD ERY DECORATOR documented in this encounter Nursing Notes 02/21/2012 3:30 PM CST >> REY RAPP Tish Feb 21, 2012 3:53 PM Patient presents with: RECHECK - Follow-up ULS pelvic Rey Rapp LPN documented in this encounter Plan of Treatment Not on filedocumented as of this encounter Visit Diagnoses Diagnosis Ovarian cyst - Primary Other and unspecified ovarian cyst documented in this encounter Care Teams International Marketing Coordinator Relationship Specialty Start Date End Date Edison Tam MD PCP - General Family Practice 09/21/11 07/22/14 909 [facility] 4 [place] [address] documented as of this encounter
--- OUTSIDE RECORDS SUMMARY | 2021-10-26 13:41 | XMS_ITS | Encounter Summary ---
:1955 Author Organization [facility] Address [address] [place] [address] Care Team Providers Name Role Phone Edison [...] LogeaisWendi MD Wrist fracture, right Care Center [address] [place] [address] (Primary Dx) 3rd Floor, Clinic [address]A [address] [place] [address] [place] [address] [facility] 88 (Work) [place], [place] [phone] [address] (Fax) [phone] Social History Tobacco Use Types Packs/Day Years [...] pharmacy regarding ANY request for medication refills. [facility] Prescription Fax = [phone] * Please allow 3 business days for [...] (TYLENOL EXTRA STRENGTH PO) ??? ergocalciferol (ERGOCALCIFEROL) 61230 UNIT capsule ??? predniSONE 10 MG KIT [...] ne documented in this encounter Care Teams Keno Terminal Operator Relationship Specialty Start Date End Date Edison Tam MD PCP - General Family Practice 09/21/11 07/22/[address] [address] documented as of this encounter
--- OUTSIDE RECORDS SUMMARY | 2021-10-26 13:41 | XMS_ITS | Encounter Summary ---
:1955 Author Organization [place] Address [address] [place] [address] Care Team Providers Name Role Phone Edison Olivas MD Primary Care Provider Edison Olivas MD Primary Care Provider Sheri Casey MD Unavailable Alphonso Billy MD Unavailable Roland Holt MD Unavailable Amita Ryan MD Unavailable Sid Lilly MD Unavailable [phone] Neda Boland RN Unavailable Edison Olivas MD Unavailable Encounter Details Date Type Department Care Team Description 11/06/2011 Office Visit-P INTERFACE P DEPT Marisol Maloney MD XX RESIGNED XX [place], [place] [address] (Wo rk) Social History Tobacco Use Types Packs/Day Years Used Date Former Smoker 1 18 Smokeless Tobacco: Former User Q uit: 09/20/1991 Alcohol Use Standard Drinks/Week Comments No 0 (1 standard drink = 0.6 oz pure alcoho l) Sex Assigned at Date Recorded Not on file documented as of this encounter Progress Notes Kassy Maloney MD - 11/06/2011 12:49 PM CDT Crepe Sole Scourer: Kassy Maloney Status: Final - Signature Encounter: 2011-11-06 12:49:00.000 Type: DXA SCAN [facility] [address] [place] [address] [address] [address] Phone: Fax: Bone Densitometry Report: 11/06/2011 REPORT STATUS: FINAL DR EDISON OLIVAS DR: Your patient, MARIA E GONZALEZ ([id number] ), completed a DXA exam ([id number] ) on a Chegg on 11/06/2011 . The following is a [...] FORMATTED RESULTS WITH TABLES ARE LOCATED IN [facility] UNDER CHART REVIEW < ENCOUNTERS < PROVIDER < MINENKO DR EDISON OLIVAS DR: Your patient, MARIA E GONZALEZ ([id number] ), completed a DXA exam ([id number] ) on a HitlabigRocketick on 11/06/2011 . The following are the [...] to you and your patient. Principal result cigar packer: Marisa Maloney MD, CCD oceanology teacher Division of Rheumatic and Autoimmune Diseases [facility] DXA Services ph #: [phone] fax #: [phone] References: 1. NOF Physician's Guideline Website address: www.nof.org 2. [place] College [employer] Recommendations for the Prevention and Treatment of Glucocorticoid-induced Osteoporosis: 2001 update in Arthritis and Rheumatism September 2000 edition (vol 44, issue 7) pp 1494 - 1508. 3. ISCD position statements: www.iscd.org (includes the [...] by:Kassy Maloney MD Nov 13 2011 11:33AM SECTION 8 PROPERTY MANAGER Author documented in this encounter Plan of Treatment Not on filedocumented as of this encounter Visit Diagnoses Not on filedocumented in this encounter Care Teams Head Operator Relationship Specialty Start Date End Date Edison Olivas, PCP - General Family Practice 09/21/1107/[address] [place] [address] 4 [place], [place] [address] Edison Olivas, PCP - General Family Practice 07/23/[address] [place] [address] 4 [place], [place] [address] Sheri Casey MD Pulmonary Disease 07/23/[address] [place] [address] 276 [place] [address] Alphonso Billy MD Cardiology 08/12/[address] [place] [address] Roland Holt MD Resident Student in [facility] 05/12/15 09/24/18 [facility] Amita Ryan MD MD Internal Medicine 12/19/[address] [place] [address] [id number] [place] [address] Sid Lilly MD Orthopaedic Surgery 02/22/16 MD Alivia [address] [place] [address] Neda Boland, RN Nurse Coordinator Neurology 02/23/16 09/01/18 Edison Olivas, Assigned PCP 07/30/19 04/30/[address] [place] [address] [place] 4 [place] [address] documented as of this encounter
--- OUTSIDE RECORDS SUMMARY | 2021-10-26 13:41 | XMS_ITS | Encounter Summary ---
:1955 Author Organization [place] Address [facility] [place] [address] Care Team Providers Name Role Phone Edison Tam MD Primary Care Provider Encounter Details Date Type Department Care Team Description 12/18/2011 Medical Correspondence [facility], [facility] HISTORY- Health Info Mgmt [facility] [address] [place] [address] [place] [phone] Social History Tobacco Use Types Packs/Day [...] on filedocumented in this encounter Care Teams Research Hydraulic Engineer Relationship Specialty Start Date End Date Edison Tam MD PCP - General Family Practice 09/21/11 07/22/14 726 [facility] 4 [place] [address] documented as of this encounter
--- OUTSIDE RECORDS SUMMARY | 2021-10-26 13:41 | XMS_ITS | Encounter Summary ---
:1955 Author Organization [place] Address [address] [place] [address]. [place] [address] Care Team Providers Name Role Phone Edison Tam MD Primary Care Provider Encounter Details Date Type Department Care Team Description 11/06/2011 Orders Only [facility] 1st Floor, Clinic 1D Mail Code 152 [place], [place] [address] Social History Tobacco Use Types [...] on filedocumented in this encounter Care Teams Parker Relationship Specialty Start Date End Date Edison Tam MD PCP - General Family Practice 09/21/11 07/22/14 909 [facility] 4 [place], [place] [address] documented as of this encounter
--- OUTSIDE RECORDS SUMMARY | 2021-10-26 13:41 | XMS_ITS | Encounter Summary ---
:1955 Author Organization [place] Address [address] [facility] [place] [address] Care Team Providers Name Role Phone Edison Tam MD Primary Care Provider Reason for Visit Reason Onset Date Comments Previsit 11/05/2011 first call to barry jin regarding her appt for 12/17/11 Encounter Details Date Type Department Care Team Description 11/05/2011 Telephone Diabetes and Endocri ne Neda Blancas Previsit (first call to 6th Floor, Clinic 6A MD Maria Esther patient regarding her [place] [address] appt for 12/17/11) [phone] [place] [address] 88 [place], [place] (Work) [address] [phone] Social History Tobacco Use Types Packs/Day Years [...] on filedocumented in this encounter Care Teams Inside Phone Sales Relationship Specialty Start Date End Date Edison Tam MD PCP - General Family Practice 09/21/11 07/22/[address] [place] [address] documented as of this encounter
--- OUTSIDE RECORDS SUMMARY | 2021-10-26 13:41 | XMS_ITS | Encounter Summary ---
:1955 Author Organization [place] Address [facility] [place] [address] Care Team Providers Name Role Phone Edison Tam MD Primary Care Provider Reason for Visit Reason Comments Consult HASHIMOTOS THYROIDITIS OSTEO POROSIS Encounter Details Date Type Department Care Team Description 12/17/2011 Office Visit Diabetes and Endocri ne Neda Blancas Osteoporosis (Primary Dx); 6th Floor, Clinic 6A MD Maria Esther Yossi's thyroiditis; [place] [address] Prediabetes [address] [address] [facility] 88 [place], [place] (Work) [phone] Social History Tobacco Use Types Packs/Day Years [...] please don't hesitate to call us at [phone]. documented in this encounter Progress Notes Neda Blancas MD - 12/17/2011 10:34 AM CDT The patient is seen in consultation at the request of Dr. Edison Tam for evaluation of osteoporosis and Yossi thyroiditis. She recently moved here from [place]. Maria E is a 56-year-old female with [...] had her 1st DEX scan done in [facility]. Since then, she reports having periodical [...] most recent DEX scans were done in [place], last one in 2009. A f/up DEX [...] ovarian teratoma. - has an apt with Bottle Tester next week Current Medications Current outpatient prescriptions:buprenorphine [...] Pain, Disp: , Rfl: ; ergocalciferol (ERGOCALCIFEROL) 79341 UNIT capsule, One capsule twice weekly,Disp: 8 [...] the findings. Your patient, MARIA E GONZALEZ ([id number] ), completed a DXA exam ([id number] ) on a Ongo on 11/06/2011 . The following are the [...] to you and your patient. Principal result it architecture consultant: Marisa Maloney MD, CCD I reviewed the [...] advised to f/up with her PCP and STORM DOOR MAKER. She is going to have the labs [...] glucose documented in this encounter Care Teams Head Up Operator Relationship Specialty Start Date End Date Edison Tam MD PCP - General Family Practice 09/21/11 07/22/[address] [address] documented as of this encounter
--- OUTSIDE RECORDS SUMMARY | 2021-10-26 13:41 | XMS_ITS | Encounter Summary ---
:1955 Author Organization [place] Address [address] [place] [address] Care Team Providers Name Role Phone Edison Tam MD Primary Care Provider Reason for Visit Reason Onset Date Comments Previsit 01/01/2012 [facility] Encounter Details Date Type Department Care Team Description 01/01/2012 Telephone Dermatology Serg Melgar MD Previsit ([facility]) 5th Floor, Clinic 5A [id number] [place] [address] [place] [phone] Social History Tobacco Use Types Packs/Day Years [...] on filedocumented in this encounter Care Teams Hospital Supervisor Relationship Specialty Start Date End Date Edison Tam MD PCP - General Family Practice 09/21/11 07/22/14 909 [facility] 4 [place] [address] documented as of this encounter
--- OUTSIDE RECORDS SUMMARY | 2021-10-26 13:41 | XMS_ITS | Encounter Summary ---
:1955 Author Organization [place] Address [address] [place] [address] Care Team Providers Name Role Phone Edison Tam MD Primary Care Provider Encounter Details Date Type Department Care Team Description 2011 Results Only [facility] Edison Tam, [facility] Results 909 [facility] 4 [place], [place] [address] (Wo rk) Social History Tobacco Use Types [...] on filedocumented in this encounter Care Teams Fine Patcher Relationship Specialty Start Date End Date Edison Tam MD PCP - General Family Practice 09/21/11 07/22/14 909 [facility] 4 [place] [address] documented as of this encounter
--- OUTSIDE RECORDS SUMMARY | 2021-10-26 13:41 | XMS_ITS | Encounter Summary ---
:1955 Author Organization [place] Address [address] [place] [address] Care Team Providers Name Role Phone Arcenio Tam MD Primary Care Provider Encounter Details Date Type Department Care Team Description 11/06/2011 Results Only [facility] Arcenio Tam, [facility] Results [address] [facility] 4 [place], [place] [address] (Wo rk) Social History Tobacco Use Types [...] RESULTS WITH ?? TABLES ARE ??LOCATED IN [facility] UNDER ?? CHART REVIEW < ??ENCOUNTERS < PROVIDER < [address] DR ARCENIO ARMENDARIZILLI ??DR: ?? Your patient, MARIA E GONZALEZ ([id number] ), completed a DXA exam ([id number] ) on a Trapster on 11/06/2011 . The following are the [...] you and your patient. ?? Principal result mixed crop and livestock farmer: Marisa Maloney MD, CCD cardiovascular lab director Division of Rheumatic and Autoimmune Dis eases [facility] ph #: ??[phone] fax #: ??[phone] Arcenio Tam MD IMG DEXA ORDERABLES documented in this encounter Visit Diagnoses Not on filedocumented in this encounter Care Teams Occupational Hygienist Relationship Specialty Start Date End Date Arcenio Tam MD PCP - General Family Practice 09/21/11 07/22/[address] [address] documented as of this encounter
--- OUTSIDE RECORDS SUMMARY | 2021-10-26 13:41 | XMS_ITS | Encounter Summary ---
:1955 Author Organization [place] Address [address] [place] [address] Care Team Providers Name Role Phone Edison Tam MD Primary Care Provider Encounter Details Date Type Department Care Team Description 12/26/2011 [facility] Abstract, MRI C [facility] Imaging Center Provider QUESTIONNAIRE Radhika-Wangenste en Building 1st Floor, Clinic 1D Mail [address] [place], [place] [id number] Social History Tobacco Use Types Packs/Day Years [...] filedocumented in this encounter Care Teams Inspector Aluminum Boat Relationship Specialty Start Date End Date Edison Tam MD PCP - General Family Practice 09/21/11 07/22/14 909 [facility] 4 [place], [place] [address] documented as of this encounter
--- OUTSIDE RECORDS SUMMARY | 2021-10-26 13:41 | XMS_ITS | Encounter Summary ---
:1955 Author Organization [place] Address [address] [place] [address] Care Team Providers Name Role Phone Edison Tam MD Primary Care Provider Reason for Visit Reason Comments Derm Problem Pt is here for brown/red spo ts on arms and legs. Encounter Details Date Type Department Care Team Description 01/03/2012 Office Visit Dermatology Az[place]a Sen Neoplasm of uncertain 5th Floor, Clinic 5A MD [place] behavior of skin [facility] (Pr imary Dx) [address] [facility] [address] [place] [address] [phone] Social History Tobacco Use Types Packs/Day Years [...] be sure to discuss them with the armoured corps officer or the dermatology nurse before the procedure [...] any pain during the procedure, let the Diesel Dragline Operator know and you will be given more numbing medication. There are two ways this procedure can be preformed: Shave Biopsy After the area is numbed, the armoured corps officer uses a scalpel blade to remove a thin slice of skin tissue. Then a solution is applied to the wound with a cotton swab to stop the bleeding. This type of biopsy requires no suture as it is very superficial. Punch Biopsy After the area is numbed, the armoured corps officer uses a special instrument shaped like a miniature cookie-cutter, to cut a very small [place] into the skin. Using a small scissors, [...] is appropriate to have them removed, the armoured corps officer or thomas matology nurse will remove them [...] two weeks, please call our office at [phone]. How do I take care of the [...] not stop, call your physician immediately at- [phone] during regular business hours. If uncontrolled bleeding occurs after hours call [phone] and ask to have the Dermatology Resident [...] infection occur. Important phone numbers: Dermatology Clinic [phone] After-hours number to have Dermatology Resident on-call paged [phone] [facility] Emergency Room (answered 24 hours a day) [phone] [facility] Emergency Room TTY for hearing impaired (answered 24 hours a day) [phone] documented in this encounter Progress Notes Azalea [...] lesion on the left dorsal hand is customer support representative of a hypertrophic actinic keratosis versus [...] by Robert Nicholson MD Resident Maria E Goznalez was seen and evaluated by myself on 01/03/[address] Nicholson. I have reviewed and where appropriate amended/corrected Dr. Nicholson's note. Dr. Nicholson's note accurately reflects my clinical observations, diagnoses, treatment and follow up plans. I was physically present for the proceedural/surgical component of this encounter. Jr. Kayce Hodges Department of Dermatology CH AND DRAMA TEACHER documented in this encounter Nursing Notes 01/03/2012 2:45 PM CDT >> Dede Ivy LPN Tish Jan 03, 2012 3:12 PM Patient presents with: Derm Problem - Pt is here for brown/red spots on arms and legs. Dede Iyv documented in this encounter Plan of Treatment [...] Component Value Ref Test Analysis Performed At [facility] gist Range Method Time Signature Copath Report Patient Name: MARIA E GONZALEZ MR#: [id number] Specimen #: [id number] Collected: 01/03/2012 Received: 01/04/2012 Reported: 01/07/2012 17:49 [...] signed out by: Coleman Rodriguez ??Sagar Camejo [facility] CLINICAL HISTORY: The patient is a [...] is serially sectioned and entirely submitted in [facility]. (MARIA DEL CARMEN Etienne/ameya ??01/04/12) MICROSCOPIC: There is parakeratosis with papillomatosis and acanthosis. Transepidermal atypia of the epidermis is noted focally. 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 The lesion extends to biopsy margins. TESTING LAB LOCATION: [facility], [address] ?? 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
--- OUTSIDE RECORDS SUMMARY | 2021-10-26 13:41 | XMS_ITS | Encounter Summary ---
:1955 Author Organization [place] Address [facility] [place] [address] Care Team Providers Name Role Phone Edison Tam MD Primary Care Provider Reason for Visit Reason Comments Consult R distal radius fx on 2011 Encounter Details Date Type Department Care Team Description 12/14/2011 Office Visit [facility] Ike Oliver Right wrist pain [facility] MD Jenny (Primary Dx) Center XX RETIRED XX 1st Floor, [address] [address] [place], [place] [phone] [address] (Work) [phone] Social History Tobacco Use Types Packs/Day Years [...] and aware, able to answer questions. Her instructional assistant is with her and she seems [...] daily. For Tooth Extraction Pain ergocalciferol (ERGOCALCIFEROL) 43102 UNIT capsule, One capsule twice weekly predniSONE [...] forearm documented in this encounter Care Teams Car Deliverer Relationship Specialty Start Date End Date Edison Tam MD PCP - General Family Practice 09/21/11 07/22/[address] [address] documented as of this encounter
--- OUTSIDE RECORDS SUMMARY | 2021-10-26 13:41 | XMS_ITS | Encounter Summary ---
:1955 Author Organization [facility] Address [address] [place] [address]. [place] [address] Care Team Providers Name Role Phone Edison Tam MD Primary Care Provider Reason for Visit Reason Comments Nausea, Vomiting, & Diarrhea Abdominal Pain Right side Auth/Cert - Closed Specialty Diagnoses / Procedures Referred By Contact Refer red To Contact Diagnoses Diarrhea Dehydration Vomiting UTI (lower urinary tract infection) [id number] [facility] Observation [address] [place] [address] Phone: Fax: Referral ID Status Reason Start Date Expiration Date Visits Requ ested Visits Authorized Closed 01/22/2012 07/20/2012 Encounter Details Date Type Department Care Team Description 01/21/2012 - Emergency [facility] OBSERVATION Moses Thurston MD [address] [address] Dehydration (Primary Dx); 01/22/[address] [place] [address] Moy Champion MD [facility] [place] [address] Vomiting; [place], [place] Diarrhea; [address] UTI (lower urinary tract inf ection) [phone] Social History Tobacco Use Types Packs/Day Years [...] Comments Blood Pressure 117/68 01/22/2012 4:17 PM TECHNICAL PROJECT MANAGER Pulse 85 01/22/2012 2:00 AM TECHNICAL PROJECT MANAGER Temperature 37.2 ??C (99 ??F) 01/22/2012 4:17 PM TECHNICAL PROJECT MANAGER Respiratory Rate 18 01/22/2012 4:17 PM TECHNICAL PROJECT MANAGER Oxygen Saturation 98% 01/22/2012 12:21 PM TECHNICAL PROJECT MANAGER Inhaled Oxygen Concentration - - Weight 61.2 kg (135 lb) 01/21/2012 10:43 AM TECHNICAL PROJECT MANAGER Height 157.5 cm (5' 2) 01/21/2012 10:43 AM TECHNICAL PROJECT MANAGER Body Mass Index 24.69 01/21/2012 10:43 AM TECHNICAL PROJECT MANAGER documented in this encounter Discharge Summaries Elizabeth Pemberton PA-C - 01/22/2012 5:25 PM CST Physician Discharge Summary Patient ID: Maria E Norman [id number] 56 year old 1955 Admit date: 01/21/2012 Discharge date and time: 01/22/2012 Admitting Physician: Moy Champion MD Discharge Physician: Dr. Champion Admission Diagnoses: Diarrhea [787.91] Dehydration [276.51] Vomiting [787.03] UTI (lower urinary tract infection) [599.0] [id number] Discharge Diagnoses: UTI, crohn's disease. Admission Condition: [...] Pt felt much better after receiving Phenergan. [id number] pt was able to tolerate [place] clear soda and ate lunch. Pt was [...] of pt's lack of follow up with [place] [facility] and her current symptoms and lab work GI service did not feel this was an acute flare of Crohn's. Family friend stopped by and expressed great concern for pt to discharge to home. Family friend reports pt has a significant history of Narcotic abuse, depression and other mental illness. Friend recommended that providers call sister who is patient's power of real estate associate attorney at [phone]. Called and spoke with Sister, Joan. Joan [...] but is seeing a psychiatrist Dr. Morrison. materials coordinator was contacted tosee if pt can [...] Ketones Urine 5 (*) NEG mg/dL Specific [place] Urine 1.014 1.003 - 1.035 Blood Urine [...] needed. MEDICATION NAME: Chantale Silver ergocalciferol (ERGOCALCIFEROL) 18207 UNIT capsule One capsule twice weekly - [...] days. Signed: Elizabeth Pemberton 01/22/2012 5:25 PM NICAL PROJECT MANAGER documented in this encounter Discharge Instructions Discharge InstructionsElizabeth Pemberton PA-C - 01/22/2012 5:20 PM TECHNICAL PROJECT MANAGER Maria E~ -An appointment was made for you to see Dr. Tam on Saturday, January 27 at 9:10am. This is forfollow up of your current hospitalization. -Your were found to have a mild Urinary Tract Infection. A prescription for Ciprofloxacin was sent to [facility]. - Please make an appointment to see your psychiatrist within 1 week of discharge from the hospital. - If you have trouble with narcotic addiction in the future please feel free to call chemical dependency at: [phone] NICAL PROJECT MANAGER documented in this encounter Medications at [...] capsule twice 8 capsule 0 09/26/2011 (ERGOCALCIFEROL) 47352 weekly - and UNIT capsule levothyroxine Take [...] See dc orders Report called/faxed: Faxed to party planner and Primary Care Physician Local address and telephone number: See face sheet NICAL PROJECT MANAGER Moy Champion MD - 01/22/2012 1:52 [...] Ketones Urine 5 (*) NEG mg/dL Specific [place] Urine 1.014 1.003 - 1.035 Blood Urine [...] pending. 4. Will need follow up with [place] [facility]. 5. If continuing to feel well, plan for DC to home this afternoon. 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 Plan: Continue ceftriaxone pending urine culture. Check stool culture, c diff and O and P. Blood culture if spikes fever again. (candidate for listeriosis,pyelonephritis,and Crohn's associated bacteremia). Stress dose hydrocorisone IV. 50 mg q 6hr for present. GI consult tomorrow. Continue IV hydration. Transfer to inpatient status if develops hypotension or signs of SIRS. Moy Champion MD NICAL PROJECT MANAGER documented in this encounter H&P Notes Zonia Fernandez NP - 01/21/2012 7:34 PM CST [...] on file Social History Narrative Moved to [place] from [facility] to live with Twin sister Joan [place]. [...] 3 times daily. Disp: Rfl: ergocalciferol (ERGOCALCIFEROL) 88903 UNIT capsule One capsule twice weekly - [...] Ketones Urine 5 (*) NEG mg/dL Specific [place] Urine 1.014 1.003 - 1.035 Blood Urine [...] continue to monitor overnight. KATRINA Ricardo-ELENA 01/21/20122058 NICAL PROJECT MANAGER documented in this encounter Consult Notes Pratik Esqueda MD - 01/22/2012 2:12 PM CSTAssociated Order(s): GASTROENTEROLOGY IP CONSULT [facility] Gastroenterology Consultation Maria E Emerson Age: [age] year old Date of : 1955 Assessment and Plan: 56 yo lady with long standing hx of chron's disease since the age of 13 which has been fairly well controlled s/p extensive small and large bowel resections (4199-1793) and history of rectovaginal and urethrovaginal fistulas [...] her Chron's disease is derived from a [place] [facility] report and verbalwithout any surgical, pathologic, [...] 10 mg and follow up with her Laser Engineer at [facility] , patient could also follow up as an outpatient at [facility]. 5) IV hydration, pain management, antiemetics Patient seen and examined with the GI resident and fellow. I agree with the assessment and plan as discussed above. Pratik Esqueda MD Reason for consult: Abdominal pain. Consult requested by: Zonia Fernandez, ELECTRIC LIFT TRUCK DRIVER- Chief Complaint: Abdominal pain, diarrhea of 2 [...] has undergone fistula surgery andseton placement at [facility]. She is currently presenting with 2 days [...] MEDICATION NAME: Calms Forte ??? ergocalciferol (ERGOCALCIFEROL) 82926 UNIT capsule One capsule twice weekly - [...] abdominal pain identified. [facility] [place] PGY-1 MED [phone] Patient seen and examined with the GI resident and fellow. I agree with the assessment and plan as discussed above. Pratik Esqueda MD NICAL PROJECT MANAGER documented in this encounter ED Notes Ning Clarke RN - 01/21/2012 1:15 PM CST Cleaned pt up with assist of one. Pt states she became dizzy after standing 4-5 minutes. NICAL PROJECT MANAGER Moses Thurston MD - 01/21/2012 11:12 [...] and Surgical History, and Social History inthe [employer] system. Review of Systems Constitutional: Positive for [...] ED Course Procedures Critical Care time: none [facility] Diagnoses: None 11:10am Patient seen and evaluated [...] Ketones Urine 5 (*) NEG mg/dL Specific [place] Urine 1.014 1.003 - 1.035 Blood Urine [...] INorma, am serving as a trained medical geneticist to document services personally performed by Dr. Karena MD, based on the provider's statements to me. This document has been checked and approved by the attending provider. 01/21/2012 [facility], EMERGENCY DEPARTMENT Moses Thurston MD 01/21/12 1641 NICAL PROJECT MANAGER Ning Clarke RN - 01/21/2012 10:48 AM CST Presents with right sided pain and N/V/D started this morning and has become worse. Last night had pizza . NICAL PROJECT MANAGER Negrita Patton RN - 01/21/2012 10:43 AM CSTBed:ED07
Expected date:
Expected time:
Means of arrival:
Comments:
NICAL PROJECT MANAGER documented in this encounter Miscellaneous Notes Plan of Care - Connie Murphy - 01/22/2012 4:00 PM CST Problem: IP GENERAL POC-ADULT,OB,BEHAVIORAL FVCPM Goal: Discharge Planning (Adult, OB, Behavioral, Peds) ACUTE UNCOMPLICATED PYELONEPHRITIS Tolerating oral antibiotics. NO Tolerating oral pain medications with pain level adequately controlled.YES Tolerating oral liquids.YES NICAL PROJECT MANAGER Plan of Care - Connie Murphy - 01/22/2012 2:00 PM CST Problem: IP GENERAL POC-ADULT,OB,BEHAVIORAL FVCPM Goal: Discharge Planning (Adult, OB, Behavioral, Peds) ACUTE UNCOMPLICATED PYELONEPHRITIS Tolerating oral antibiotics. NO Tolerating oral pain medications with pain level adequately controlled.NO Tolerating oral liquids.NO NICAL PROJECT MANAGER Plan of Care - Connie Murphy - 01/22/2012 12:00 PM CST Problem: IP GENERAL POC-ADULT,OB,BEHAVIORAL FVCPM Goal: Discharge Planning (Adult, OB, Behavioral, Peds) ACUTE UNCOMPLICATED PYELONEPHRITIS Tolerating oral antibiotics. NO Tolerating oral pain medications with pain level adequately controlled.NO Tolerating oral liquids.NO NICAL PROJECT MANAGER Plan of [facility] Connie Murphy - 01/22/2012 10:00 AM CST Problem: IP GENERAL POC-ADULT,OB,BEHAVIORAL FVCPM Goal: Discharge Planning (Adult, OB, Behavioral, Peds) ACUTE UNCOMPLICATED PYELONEPHRITIS Tolerating oral antibiotics. NO Tolerating oral pain medications with pain level adequately controlled.NO Tolerating oral liquids.NO NICAL PROJECT MANAGER Plan of [facility] Connie Murphy - 01/22/2012 8:00 AM CST Problem: IP GENERAL POC-ADULT,OB,BEHAVIORAL FVCPM Goal: Discharge Planning (Adult, OB, Behavioral, Peds) ACUTE UNCOMPLICATED PYELONEPHRITIS Tolerating oral antibiotics. NO Tolerating oral pain medications with pain level adequately controlled.NO Tolerating oral liquids.NO NICAL PROJECT MANAGER Plan of Care - Diana Merritt [...] but changed her mind due to nausea. Human Resource Analyst gave IV Dilaudid, will reassess effectiveness. No further diarrhea this shift. Used commode x2, voiding strong smelling dark yellow urine. NICAL PROJECT MANAGER Plan of Care - Diana Merritt RN - 01/22/2012 4:10 AM CST Problem: IP GENERAL POC-ADULT,OB,BEHAVIORAL FVCPM Goal: Discharge Planning (Adult, OB, Behavioral, Peds) Outpatient/Observation goals to be met before discharge home: ACUTE UNCOMPLICATED PYELONEPHRITIS Tolerating oral antibiotics. NO Tolerating oral pain medications with pain level adequately controlled.NO Tolerating oral liquids.NO Pt was able to transfer to commode w/ SBA - Afebrile. NICAL PROJECT MANAGER Plan of [place] - Diana Merritt RN - 01/22/2012 2:10 AM CST Problem: IP GENERAL POC-ADULT,OB,BEHAVIORAL FVCPM Goal: Discharge Planning (Adult, OB, Behavioral, Peds) Outpatient/Observation goals to be met before discharge home: ACUTE UNCOMPLICATED PYELONEPHRITIS Tolerating oral antibiotics. NO Tolerating oral pain medications with pain level adequately controlled.NO Tolerating oral liquids.NO Pt has been resting, has not c/o further nausea. NICAL PROJECT MANAGER Plan of Care - Diana Merritt RN - 01/22/2012 12:15 AM CST Problem: IP GENERAL POC-ADULT,OB,BEHAVIORAL FVCPM Goal: Discharge Planning (Adult, OB, Behavioral, Peds) Outpatient/Observation goals to be met before discharge home: ACUTE UNCOMPLICATED PYELONEPHRITIS Tolerating oral antibiotics. NO Tolerating oral pain medications with pain level adequately controlled.NO Tolerating oral liquids.NO Pt was dry-heaving, also incontinent of stool. NICAL PROJECT MANAGER Pharmacy-Admission Medication History - Elise Mittal RP - 01/21/2012 4:51 PM CST Admission medication history interview status for the 01/21/2012 admission is complete. See [facility] admission navigator for allergy information, prior to admission medications and immunization status. Medication history interview source(s):Patient Medication history resources (including written lists, pill bottles, clinic record):None Medication history source reliability:Good Primary pharmacy: [facility] Pneumococcal and influenza vaccine history documented: yes Changes made to Z OS MAINFRAME SYSTEMS PROGRAMMER medication list: Added: multivitamin Deleted: methotrexate and [...] daily. For Tooth Extraction Pain ergocalciferol (ERGOCALCIFEROL) 66274 UNIT capsule Past Week at Unknown Yes [...] Yes Take 2 tablets by mouth daily. NICAL PROJECT MANAGER documented in this encounter Plan of Treatment Not on filedocumented as of this encounter Procedures Procedure Name Priority Date/Time Associated Comments Diagnosis CBC WITH PLATELETS & Routine 01/22/2012 6:41 AM R esults for this DIFFERENTIAL TECHNICAL PROJECT MANAGER procedure are i n the results section. TSH WITH FREE T4 Routine 01/22/2012 6:41 AM Resul ts for this REFLEX TECHNICAL PROJECT MANAGER procedure are i n the results section. T4 FREE Routine 01/22/2012 6:41 AM Results f or this TECHNICAL PROJECT MANAGER procedure are i n the results section. BASIC METABOLIC PANEL Routine 01/22/2012 6:41 AM Results for this TECHNICAL PROJECT MANAGER procedure are i n the results section. LACTIC ACID WHOLE STAT 01/22/2012 12:49 Result s for this BLOOD AM TECHNICAL PROJECT MANAGER procedure are i n the results section. BLOOD CULTURE STAT 01/22/2012 12:49 Results fo r this AM TECHNICAL PROJECT MANAGER procedure are i n the results section. BLOOD CULTURE STAT 01/22/2012 12:48 Results fo r this AM TECHNICAL PROJECT MANAGER procedure are i n the results section. CT ABDOMEN PELVIS W STAT 01/21/2012 3:27 PM Re sults for this CONTRAST TECHNICAL PROJECT MANAGER procedure are i n the results section. ROUTINE UA WITH STAT 01/21/2012 2:20 PM Result s for this MICROSCOPIC REFLEX TO TECHNICAL PROJECT MANAGER proced ure are in CULTURE the results section. URINE CULTURE Routine 01/21/2012 2:20 PM Results for this TECHNICAL PROJECT MANAGER procedure are i n the results section. CBC WITH PLATELETS & STAT 01/21/2012 12:19 Res ults for this DIFFERENTIAL PM TECHNICAL PROJECT MANAGER procedure are i n the results section. LIPASE STAT 01/21/2012 12:19 Results for this PM TECHNICAL PROJECT MANAGER procedure are i n the results section. COMPREHENSIVE STAT 01/21/2012 12:19 Results fo r this METABOLIC PANEL PM TECHNICAL PROJECT MANAGER procedure ar e in the results section. documented in this encounter Results T4 free (01/22/2012 6:41 AM TECHNICAL PROJECT MANAGER) P athologist Signature T4 Free 1.05 0.70 - 1.85 [facility] ng/dL [facility] Specimen Anatomical Collection Method Collection Time Receive d Time (Source) Location / / Volume Laterality 01/22/2012 6:41 AM 2 6:42 TECHNICAL PROJECT MANAGER AM TECHNICAL PROJECT MANAGER Zonia Fernandez FLAG FOOTBALL COACH STRAIGHT PIN MAKING MACHINE OPERATOR LAB - BLOOD ORDERABLES Performing Organization Address City/State/ZIP Code Phon e Number [facility] [address] [place] [address] [facility] (ABNORMAL) TSH with free T4 reflex (01/22/2012 6:41 AM TECHNICAL PROJECT MANAGER) athologist Signature TSH 0.27 (L) 0.4 - 5.0 [facility] mU/L [facility] Specimen Anatomical Collection Method Collection Time Receive d Time (Source) Location / / Volume Laterality Blood specimen 01/22/2012 6:41 AM 012 6:42 (specimen) TECHNICAL PROJECT MANAGER AM TECHNICAL PROJECT MANAGER Zonia Fernandez APRN, CNP LAB - BLOOD ORDERABLES Performing Organization Address City/State/ZIP Code Phon e Number [facility] [address] [place] [address] [facility] (ABNORMAL) Basic metabolic panel (01/22/2012 6:41 AM TECHNICAL PROJECT MANAGER) Analysis Performed At Patho logist Time Signature Sodium 139 133 - 144 [facility] mmol/L [facility] Potassium 3.7 3.4 - 5.3 [facility] mmol/L [facility] Chloride 107 94 - 109 [facility] mmol/L [facility] Carbon Dioxide 24 20 - 32 [facility] mmol/L [facility] Anion Gap 8 6 - 17 [facility] mmol/L [facility] Glucose 95 60 - 99 [facility] mg/dL [facility] Urea Nitrogen 9 7 - 30 [facility] mg/dL [facility] Creatinine 0.70 0.52 - [facility] 1.04 mg/dL [facility] GFR Estimate 86 >60 [facility] mL/min/1.7 [facility]2 [facility] GFR Estimate If >90 >60 [facility] Black mL/min/1.7 [facility] Calcium 7.1 (L) 8.5 - 10.4 [facility] mg/dL [facility] Specimen Anatomical Collection Method Collection Time Receive d Time (Source) Location / / Volume Laterality Blood specimen 01/22/2012 6:41 AM 012 6:42 (specimen) TECHNICAL PROJECT MANAGER AM TECHNICAL PROJECT MANAGER Zonia Fernandez APRN, CNP LAB - BLOOD ORDERABLES Performing Organization Address City/State/ZIP Code Phon e Number [facility] [address] [place] [address] [facility] (ABNORMAL) CBC with platelets differential (01/22/2012 6:41 AM TECHNICAL PROJECT MANAGER) Patholo gist Method Time Signature WBC 5.9 4.0 - [facility] 11.0 [facility] 10e9/L [facility] RBC Count 4.71 3.8 - 5.2 [facility] 10e12/L [facility] Hemoglobin 14.2 11.7 - [facility] 15.7 g/dL [facility] Hematocrit 44.4 35.0 - [facility] 47.0 % [facility] MCV 94 78 - 100 [facility] fl [facility] MCH 30.1 26.5 - [facility] 33.0 pg [facility] MCHC 32.0 31.5 - [facility] 36.5 g/dL [facility] RDW 13.8 10.0 - [facility] 15.0 % [facility] Platelet Count 142 (L) 150 - 450 [facility] 10e9/L [facility] Diff Method Automated [facility] Method [facility] % Neutrophils 86.7 (H) 40 - 75 % [facility] % Lymphocytes 5.4 (L) 20 - 48 % [facility] % Monocytes 7.3 0 - 12 % [facility] % Eosinophils 0.2 0 - 6 % [facility] % Basophils 0.2 0 - 2 % [facility] % Immature 0.2 0 - 0.4 % [facility] Granulocytes [facility] Absolute 5.1 1.6 - 8.3 [facility] Neutrophil 10e9/L [facility] Absolute 0.3 (L) 0.8 - 5.3 [facility] Lymphocytes 10e9/L [facility] Absolute 0.4 0.0 - 1.3 [facility] Monocytes 10e9/L [facility] Absolute 0.0 0.0 - 0.7 [facility] Eosinophils 10e9/L [facility] Absolute 0.0 0.0 - 0.2 [facility] Basophils 10e9/L [facility] Abs Immature 0.0 0 - 0.03 [facility] Granulocytes 10e9/L [facility] Specimen Anatomical Collection Method Collection Time Receive d Time (Source) Location / / Volume Laterality Blood specimen 01/22/2012 6:41 AM 012 6:42 (specimen) TECHNICAL PROJECT MANAGER AM TECHNICAL PROJECT MANAGER Zonia Fernandez FLAG FOOTBALL COACH STRAIGHT PIN MAKING MACHINE OPERATOR LAB - BLOOD ORDERABLES Performing Organization Address City/State/ZIP Code Phon e Number [id number] [place] [address] LABS Lactic acid whole blood (01/22/2012 12:49 AM TECHNICAL PROJECT MANAGER) P athologist Signature Lactic Acid 0.9 0.7 - 2.1 [facility] mmol/L [facility] Specimen Anatomical Collection Method Collection Time Receive d Time (Source) Location / / Volume Laterality Blood specimen 01/22/2012 12:49 2 (specimen) AM TECHNICAL PROJECT MANAGER 12:55 AM TECHNICAL PROJECT MANAGER Zonia Fernandez APRN STRAIGHT PIN MAKING MACHINE OPERATOR LAB - BLOOD ORDERABLES Performing Organization Address City/[facility] Code Phon e Number [phone] [place] [address] LABS Blood culture (01/22/2012 12:49 AM TECHNICAL PROJECT MANAGER) [facility] gist Method Time Signature Specimen Blood [facility] Culture Micro No growth [facility] MICROBIOLOGY Micro Report FINAL [facility] Status [id number] MICROBIOLOGY Specimen Anatomical Collection Method Collection Time Receive d Time (Source) Location / / Volume Laterality Blood specimen 01/22/2012 12:49 2 (specimen) AM TECHNICAL PROJECT MANAGER 12:55 AM TECHNICAL PROJECT MANAGER Zonia Fernandez APRN, CNP LAB - MICRO GENERAL ORDERABL ES Performing Organization Address City/[facility]/ZIP Code Phon e Number [facility] [address] [place] [address] [facility] MICROBIOLOGY Blood culture (01/22/2012 12:48 AM TECHNICAL PROJECT MANAGER) [facility] gist Method Time Signature Specimen Blood [facility] Culture Micro No growth [facility] MICROBIOLOGY Micro Report FINAL [facility] Status [id number] MICROBIOLOGY Specimen Anatomical Collection Method Collection Time Receive d Time (Source) Location / / Volume Laterality Blood specimen 01/22/2012 12:48 2 (specimen) AM TECHNICAL PROJECT MANAGER 12:59 AM TECHNICAL PROJECT MANAGER Zonia Fernandez APRN, CNP LAB - MICRO GENERAL ORDERABL ES Performing Organization Address City/[facility]/ZIP Code Phon e Number [phone] [place] [address] LABS [facility] MICROBIOLOGY Abd/pelvis CT, IV contrast only TRAUMA / AAA (01/21/2012 3:27 PM TECHNICAL PROJECT MANAGER) Anatomical Region Laterality Modality Abdomen/Pelvis, SUBRAD CT BODY, UMP CT ABDOMEN PELVIS Computed Tomography Specimen (Source) Anatomical Collection Method Collection Time Re ceived Time Location / / Volume Laterality 01/21/2012 3:27 PM TECHNICAL PROJECT MANAGER Impressions 01/22/2012 10:33 AM TECHNICAL PROJECT MANAGER Exam: CT of the abdomen and [...] CT ORDERABLES Urine culture (01/21/2012 2:20 PM TECHNICAL PROJECT MANAGER) Component Value Ref Test Analysis Performed At Epic! Range Method Time Signature Specimen Midstream Urine [facility] Description MICROBIOLOGY Special Specimen received [facility] Requests in preservative MICROBIOLOGY Culture Micro <10,000 colonies/mL Mixed gram negative and positive fl ora [facility] Multiple species present, probable perineal contamination. MICROBIOLOGY Susceptibility testing not routinely done Micro Report FINAL 01/22/2012 [facility] Status MICROBIOLOGY Specimen Anatomical Collection Method Collection Time Receive d Time (Source) Location / / Volume Laterality 01/21/2012 2:20 PM 2 2:46 TECHNICAL PROJECT MANAGER PM TECHNICAL PROJECT MANAGER Moses Thurston MD LAB - MICRO GENERAL ORDERABL ES Performing Organization Address City/State/ZIP Code Phon e Number [facility] [address] [place] [address] [facility] MICROBIOLOGY (ABNORMAL) UA with microscopic reflex to culture (01/21/2012 2:20 PM TECHNICAL PROJECT MANAGER) [facility] Method Time Signature Color Urine Yellow [facility] Appearance Urine Clear [facility] Glucose Urine Negative NEG mg/dL [facility] Bilirubin Urine Negative NEG [facility] Ketones Urine 5 (A) NEG mg/dL [facility] Specific [place] 1.014 1.003 - [facility] Urine 1.035 [facility] Blood Urine Trace (A) NEG [facility] pH Urine 5.0 5.0 - 7.[address] [facility] [address] [facility] Protein Albumin Negative NEG mg/dL [facility] Urine [facility] Urobilinogen Normal 0.0 - 2.0 [facility] mg/dL mg/dL [facility] Nitrite Urine Negative NEG [facility] Leukocyte Large (A) NEG [facility] Esterase Urine [facility] Source Midstream [facility] Urine [facility] WBC Urine 19 (H) 0 - 2 [facility] /HPF [facility] RBC Urine 1 0 - 2 [facility] /HPF [facility] Bacteria Urine Few (A) NEG /HPF [facility] [facility] Squamous <1 0 - 1 [facility] Epithelial /HPF /HPF [facility] Mucous Urine Present (A) NEG /LPF [facility] Specimen Anatomical Collection Method Collection Time Receive d Time (Source) Location / / Volume Laterality Urine specimen URINE SPECIMEN 01/21/2012 2:20 PM 01/20 2:35 (specimen) OBTAINED BY CLEAN TECHNICAL PROJECT MANAGER PM TECHNICAL PROJECT MANAGER CATCH PROCEDURE / Unknown Moses Thurston MD LAB - URINE ORDERABLES Performing Organization Address City/State[place] [facility] [place] [address] LABS Lipase (01/21/2012 12:19 PM TECHNICAL PROJECT MANAGER) P athologist Signature Lipase 165 20 - 250 [facility] U/L [facility] Specimen Anatomical Collection Method Collection Time Receive d Time (Source) Location / / Volume Laterality Blood specimen 01/21/2012 12:19 2 1:02 (specimen) PM TECHNICAL PROJECT MANAGER PM TECHNICAL PROJECT MANAGER Moses Thurston MD LAB - BLOOD ORDERABLES Performing Organization Address City/State/ZIP [facility] [place] [address] LABS (ABNORMAL) Comprehensive metabolic panel (01/21/2012 12:19 PM TECHNICAL PROJECT MANAGER) Patholo gist Method Time Signature Sodium 146 (H) 133 - 144 [facility] mmol/L [facility] Potassium 3.8 3.4 - 5.3 [facility] mmol/L [facility] Chloride 109 94 - 109 [facility] mmol/L [facility] Carbon Dioxide 25 20 - 32 [facility] mmol/L [facility] Anion Gap 12 6 - 17 [facility] mmol/L [facility] Glucose 93 60 - 99 [facility] mg/dL [facility] Urea Nitrogen 15 7 - 30 [facility] mg/dL [facility] Creatinine 0.73 0.52 - [facility] 1.04 mg/dL [facility] GFR Estimate 82 >60 [facility] mL/min/1.7 [facility]2 [facility] GFR Estimate If >90 >60 [facility] Black mL/min/1.7 [place] [id number] [facility] Calcium 8.4 (L) 8.5 - 10.4 [facility] mg/dL [facility] Bilirubin Total 0.5 0.2 - 1.3 [facility] mg/dL [facility] Albumin 3.8 3.3 - 4.9 [facility] g/dL [facility] Protein Total 6.5 (L) 6.8 - 8.8 [facility] g/dL [facility] Alkaline 75 40 - 150 [facility] Phosphatase U/L [facility] ALT 27 0 - 50 U/L [facility] AST 43 0 - 45 [facility] Specimen Anatomical Collection Method Collection Time Receive d Time (Source) Location / / Volume Laterality Blood specimen 01/21/2012 12:19 2 1:02 (specimen) PM TECHNICAL PROJECT MANAGER PM TECHNICAL PROJECT MANAGER Moses Thurston MD LAB - BLOOD ORDERABLES Performing Organization Address City/State/ZIP Code Phon e Number [address] LABS (ABNORMAL) CBC with platelets differential (01/21/2012 12:19 PM TECHNICAL PROJECT MANAGER) [facility] gist Method Time Signature WBC 12.8 (H) 4.0 - [facility] 11.0 [facility] 10e9/L [facility] RBC Count 5.60 (H) 3.8 - 5.2 [facility] 10e12/L [facility] Hemoglobin 17.0 (H) 11.7 - [facility] 15.7 g/dL [facility] Hematocrit 52.3 (H) 35.0 - [facility] 47.0 % [facility] MCV 93 78 - 100 [facility] fl [facility] MCH 30.4 26.5 - [facility] 33.0 pg [facility]CHC 32.5 31.5 - [facility] 36.5 g/dL [facility] RDW 13.6 10.0 - [facility] 15.0 % [facility] Platelet Count 166 150 - 450 [facility] 10e9/L [facility] Diff Method Automated [facility] Method [facility] % Neutrophils 87.1 (H) 40 - 75 % [facility] % Lymphocytes 2.7 (L) 20 - 48 % [facility] % Monocytes 9.1 0 - 12 % [facility] % Eosinophils 0.5 0 - 6 % [facility] % Basophils 0.2 0 - 2 % [facility] % Immature 0.4 0 - 0.4 % [facility] Granulocytes [facility] Absolute 11.2 (H) 1.6 - 8.3 [facility] Neutrophil 10e9/L [facility] Absolute 0.3 (L) 0.8 - 5.3 [facility] Lymphocytes 10e9/L [facility] Absolute 1.2 0.0 - 1.3 [facility] Monocytes 10e9/L [facility] Absolute 0.1 0.0 - 0.7 [facility] Eosinophils 10e9/L [facility] Absolute 0.0 0.0 - 0.2 [facility] Basophils 10e9/L [facility] Abs Immature 0.1 (H) 0 - 0.03 [facility] Granulocytes 10e9/L [facility] Specimen Anatomical Collection Method Collection Time Receive d Time (Source) Location / / Volume Laterality Blood specimen 01/21/2012 12:19 2 1:02 (specimen) PM TECHNICAL PROJECT MANAGER PM TECHNICAL PROJECT MANAGER Moses Thurston MD LAB - BLOOD ORDERABLES Performing Organization Address City/State/ZIP Code Phon e Number [facility] [address] [place], [place] [id number] [place] [address] LABS documented in this encounter Visit Diagnoses [...] AM 1,000 mLs 12 5 mL/hr solution TECHNICAL PROJECT MANAGER at 125 mL/hr, Intravenous, CONTINUOUS, Starting on Sat01/21/12 at 1945, Until Sat01/22/12 at 1434 01/22/2012 8:55 AM TECHNICAL PROJECT MANAGER 1,000 mLs 125 mL/hr 01/22/2012 12:50 AM TECHNICAL PROJECT MANAGER 1,000 mLs 125 mL/hr acetaminophen (TYLENOL) tablet 1,000 mg Given 01/21/2012 5:16 PM TECHNICAL PROJECT MANAGER 1,000 mg 1,000 mg, Oral, ONCE, On Sat01/21/12 at 1710, For 1 dose acetaminophen (TYLENOL) tablet 650 mg Given 01/21/2012 8:16 PM TECHNICAL PROJECT MANAGER 650 mg 650 mg, Oral, EVERY 4 HOURS PRN, mild pain, Starting on Sat01/21/12 at 1930, Alternate ibuprofen (if ordered) with acetaminophen Maximum acetaminophen dose from all sources = 75 mg/kg/day not to exceed 4 grams/day. buPROPion (WELLBUTRIN SR) 12 hr tablet 1 50 mg Given 01/22/2012 8:58 AM TECHNICAL PROJECT MANAGER 150 mg 150 mg, Oral, 2 TIMES DAILY, First dose on Sat01/22/12 at 0800, DO NOT CRUSH. cefTRIAXone (ROCEPHIN) 1 g vial to attach 01/21/2012 5 :18 PM TECHNICAL PROJECT MANAGER 1 g mL/hr to IVPB STAT, 1 g, Intravenous, ONCE, On Sat01/21/12 at 1619, For 1 dose ciprofloxacin (CIPRO) 400 mg in 01/22/2012 10:44 AM CS T 400 mg 200 mL/hr dextrose 5% 200 mL IVPB Routine, 400 mg, Intravenous, EVERY 12 HOURS, First dose on Sat01/21/12 at 2015 01/21/2012 9:12 PM TECHNICAL PROJECT MANAGER 400 mg 200 mL/hr hydrocortisone sodium succinate 01/22/2012 1:04 AM TECHNICAL PROJECT MANAGER 50 mg mL/hr (Solu-CORTEF) injection 50 mg 50 mg, Intravenous, ONCE, On Sat01/21/12 at 2345, For 1 dose hydrocortisone sodium succinate 01/22/2012 2:06 PM TECHNICAL PROJECT MANAGER 50 mg 1 mL/hr (Solu-CORTEF) injection 50 mg 50 mg, Intravenous, EVERY 6 HOURS, First dose on Sat01/22/12 at 0700 01/22/2012 8:35 AM TECHNICAL PROJECT MANAGER 50 mg 1 mL/hr HYDROmorphone (DILAUDID) injection 0.2-0 .4 mg Given 01/22/2012 6:23 AM TECHNICAL PROJECT MANAGER 0.2 mg 0.2-0.4 mg, Intravenous, EVERY 2 HOURS PRN, moderate to severe pain, Starting on Sat01/22/12 at 0607 iopamidol (ISOVUE-300) IV solution 61% 100 Given 01/21/2012 3:26 PM TECHNICAL PROJECT MANAGER 500 mLs mL 100 mL, Intravenous, ONCE, On Sat01/21/12 at 1429, For 1 dose levothyroxine (SYNTHROID, LEVOTHROID) tablet Given 6:22 AM TECHNICAL PROJECT MANAGER 75 mcg 75 mcg 75 mcg, Oral, DAILY, First dose on Sat01/22/12 at 0700 loperamide (IMODIUM) capsule 2 mg Given 01/21/2012 10:20 PM TECHNICAL PROJECT MANAGER 2 mg 2 mg, Oral, 4 TIMES DAILY PRN, diarrhea, Starting on Sat01/21/12 at 2046 LORazepam (ATIVAN) injection 1 mg Given 01/22/2012 8:56 AM TECHNICAL PROJECT MANAGER 1 mg 1 mg, Intravenous, EVERY 4 HOURS PRN, anxiety, Starting on Sat01/22/12 at 0830 metoclopramide (REGLAN) injection 10 mg Given 01/22/2012 8:30 AM TECHNICAL PROJECT MANAGER 10 mg 10 mg, Intravenous, EVERY 6 HOURS PRN, nausea and vomiting, Starting on Sat01/21/12 at 1929, This is Step 3 of nausea and vomiting protocol. Give if nausea not resolve 15 minutes after giving prochlorperazine. ondansetron (ZOFRAN) injection 4 mg Given 01/21/2012 11:31 AM TECHNICAL PROJECT MANAGER 4 mg 4 mg, Intravenous, ONCE, Administer over 2 Minutes, On Sat01/21/12 at 1120, For 1 dose ondansetron (ZOFRAN) injection 4 mg Given 01/22/2012 5:26 AM TECHNICAL PROJECT MANAGER 4 mg 4 mg, Intravenous, EVERY 6 HOURS PRN, nausea, vomiting, Administer over 2-5 Minutes, Starting on Sat01/21/12 at 1929, This is Step 1 of nausea and vomiting protocol. If nausea not resolved in 15 minutes, go to Step 2 (Prochlorperazine). Given 01/21/2012 11:40 PM TECHNICAL PROJECT MANAGER 4 mg ondansetron (ZOFRAN) injection 8 mg Given 01/22/2012 6:19 AM TECHNICAL PROJECT MANAGER 4 mg 8 mg, Intravenous, EVERY 6 HOURS PRN, nausea, vomiting, Administer over 2-5 Minutes, Starting on Sat01/22/12 at 0606, This is Step 1 of nausea and vomiting protocol. If nausea not resolved in 15 minutes, go to Step 2 (Prochlorperazine). promethazine (PHENERGAN) injection 12.5 mg Given 01/21/2012 1:43 PM TECHNICAL PROJECT MANAGER 12.5 mg 12.5 mg, Intravenous, ONCE, [...] tablet 10 mg Given 01/21/2012 11:12 PM TECHNICAL PROJECT MANAGER 10 mg 10 mg, Oral, AT BEDTIME, First dose on Sat01/21/12 at 2200, Indications: Restless Leg Syndrome sodium chloride (PF) 0.9% PF flush 70 mL Given 01/21/2012 3:27 PM TECHNICAL PROJECT MANAGER 10 mLs 70 mL, Intravenous, ONCE, On Sat01/21/12 at 1429, For 1 dose sodium chloride 0.9 % BOLUS New Bag 01/21/2012 5:18 PM TECHNICAL PROJECT MANAGER 1,000 m Ls 1000 mL/hr 1,000 mL Intravenous, 1,000 mL, ONCE, at 1,000 mL/hr, Administer over 1 Hours, On Sat01/21/12 at 1120, For 1 dose sodium chloride 0.9 % BOLUS New Bag 01/21/2012 1:43 PM TECHNICAL PROJECT MANAGER 1,000 m Ls 1000 mL/hr 1,000 mL Intravenous, 1,000 mL, ONCE, at 1,000 mL/hr, Administer over 1 Hours, On Sat01/21/12 at 1324, For 1 dose sodium chloride 0.9 % BOLUS New Bag 01/21/2012 11:40 PM TECHNICAL PROJECT MANAGER 1, 000 mLs 1000 mL/hr 1,000 mL Intravenous, 1,000 mL, ONCE, at 1,000 mL/hr, Administer over 1 Hours, On Sat01/21/12 at 2345, For 1 dose venlafaxine (EFFEXOR-ER) 24 hr tablet 15 0 mg Given 01/22/2012 8:59 AM TECHNICAL PROJECT MANAGER 150 mg 150 mg, Oral, DAILY, First dose on Sat01/22/12 at 0800, DO NOT CRUSH. documented in this encounter Active and Recently Administered Medications Times are shown in TECHNICAL PROJECT MANAGER. Scheduled Medication Order 01/20/2012 01/21/2012 01/22/2012 [...] 0104 (New Bag - Provider: Diana Merritt, NADNINI) 50 mg, Intravenous, ONCE, Sat01/21/12 at 2345, [...] (Prochlorperazine). documented in this encounter Care Teams Well Tester Relationship Specialty Start Date End Date Edison Tam MD PCP - General Family Practice 09/21/11 07/22/[address] [address] documented as of this encounter
--- OUTSIDE RECORDS SUMMARY | 2021-10-26 13:41 | XMS_ITS | Encounter Summary ---
:1955 Author Organization [facility] Address [address] [place] [id number] Care Team Providers Name Role Phone Edison Tam MD Primary Care Provider Reason for Visit Reason Onset Date Comments Pre Visit Planning - Done 12/06/2011 Encounter Details Date Type Department Care Team Description 12/06/2011 PRE VISIT [facility], Primary LogeaisWendi MD Pre Visit Planning - Care Center [address] [place] [address] Done 3rd Floor, Clinic [address] [place], [place] Building [address] [place] [address] [facility] [address] (Work) [place] [address] Social History Tobacco Use Types [...] on filedocumented in this encounter Care Teams Director Gift Relationship Specialty Start Date End Date Edison Tam MD PCP - General Family Practice 09/21/11 07/22/[address] [address] documented as of this encounter
--- OUTSIDE RECORDS SUMMARY | 2021-10-26 13:41 | XMS_ITS | Encounter Summary ---
:1955 Author Organization [facility] Address [address] [place] [id number] Care Team Providers Name Role Phone Edison Tam MD Primary Care Provider Encounter Details Date Type Department Care Team Description 2011 Orders Only [facility] Doctor, None, [facility] [address] [place] [address] [facility] - [address] [place] [phone] Social History Tobacco Use Types [...] on filedocumented in this encounter Care Teams Textile Colorist Formulator Relationship Specialty Start Date End Date Edison Tam MD PCP - General Family Practice 09/21/11 07/22/[address] [place] [phone] documented as of this encounter
--- OUTSIDE RECORDS SUMMARY | 2021-10-26 13:41 | XMS_ITS | Encounter Summary ---
:1955 Author Organization [facility] Address [address] [place] [address] Care Team Providers Name Role Phone Edison Tam MD Primary Care Provider Reason for Visit Reason Onset Date Comments Pre Visit Planning - Done 01/07/2012 Encounter Details Date Type Department Care Team Description 01/07/2012 Telephone [facility] AND Rigoberto Brian e Visit Planning - BAIRON Ulrich MD Done [facility] [address] [facility] [address] [facility] [phone] (Wo rk) BUILDING [address]TH FLOOR, [phone] [facility] [address] [place] [address] Social History Tobacco Use Types [...] on filedocumented in this encounter Care Teams Gaming Table Operator Relationship Specialty Start Date End Date Edison Tam MD PCP - General Family Practice 09/21/11 07/22/14 909 [facility] [address] [place] [address] documented as of this encounter
--- OUTSIDE RECORDS SUMMARY | 2021-10-26 13:41 | XMS_ITS | Encounter Summary ---
:1955 Author Organization [place] Address [address] [place] [address]. [place] [address] Care Team Providers Name Role Phone Edison Tam MD Primary Care Provider Reason for Visit Reason Comments Fall Pt fell down stairs and hit head around 1 am Auth/Cert - Closed Specialty Diagnoses / Procedures Referred By Contact Refer red To Contact Diagnoses Wrist injury Fall down stairs Fracture of lumbar spine (H) [id number] Zuu U7a Observation [address] [place] [address] Phone: Fax: Referral ID Status Reason Start Date Expiration Date Visits Requ ested Visits Authorized Closed 12/03/2011 05/31/2012 Encounter Details Date Type Department Care Team Description 12/03/2011 Emergency ZUU U7A OBSERVATION Duane Mcallister MD [facility] [place] [address] Fall down stairs (Primary Dx); [address] [facility] Peyton Giordano MD [facility] [place] [address] Wrist injury; [place], [place] [address] Gabriela Arora MD XXX RESIGNED XXX [address] [facility] [address] [place], [place] [address] Fracture of lumbar spine (H); [phone] Adjustment diso rder with mixed anxiety and [...] Gonzalez presented to the emergency room at [facility] preceding a fall. She presented to [...] addition to this, she took a natural llle-dmv-ioatwyf sleep aid. She did report a brief [...] for general medical care and ongoing management. ING SPECIALIST documented in this encounter Medications at Time [...] capsule twice 8 capsule 0 09/26/2011 (ERGOCALCIFEROL) 28874 weekly - and UNIT capsule FOLIC ACID [...] Zonia Tamayo - 12/03/2011 5:43 PM CDT [facility] Trauma Nurse Note pager [phone] Mechanism of Injury: (R) distal radius fracture [...] restless legs The pt was driven to [facility] and transferred to [facility] for further trauma evaluation and cares. Pt [...] Intake/Output Summary (Last 24 hours) at 12/03/11 2056 Last data filed at 12/03/11 1030 Gross [...] CDT Pt arrived to unit 7a [facility] via litter. documented in this [...] (TYLENOL EXTRA STRENGTH PO) ??? ergocalciferol (ERGOCALCIFEROL) 86060 UNIT capsule ??? Cyanocobalamin (VITAMIN B-12 IJ) [...] ??? None Social History Narrative Moved to [place] from [facility] to live with Twin sister Joan [place]. [...] Discussed with Dr. Ulysses Myers MD Pager [phone] Gabriela Arora MD - 12/03/2011 3:47 AM CDT Addendum - Trauma Surgery Attending I have evaluated patient Maria E Gonzalez with the Trauma midlevel and I have performed my own physical exam. I agree with Assessment and Plan delineated in the note by Dr. Myers, trauma resident. Gabriela Arora MD Pager - [phone] Office - [phone] Critical Care & Acute Care Surgery documented [...] spine is secured in place with an Hayward collar. CARDIOVASCULAR: Normal rate, regular rhythm. PULMONARY: [...] and lower extremitiesbilaterally, although her right hand fruit thinner was unable to be accurately assessed due [...] our nurse practitioner, Jessica Arias, by calling [phone]. DAYDAY BRADY MD As dictated by MARTIN ROBERTS MD MT: ROSEANNE Name: MARIA E GONZALEZ Account: [id number] : 1955 Consult Date: 12/03/2011 Document: [id number] ING SPECIALIST Dayday Brady MD - 12/03/2011 8:17 PM CDT I have seen and examined the patient and agree with the above assessment and plan. AG ING SPECIALIST documented in this encounter ED Notes Robert [...] 12/03/2011 3:07 AM CDT Pt arrived to [facility] ER via EMS Serg Oliver - 12/03/2011 3:04 AM CDTBed:ED02
Expected date:12/03/11
Expected time: 3:00 AM
Means of arrival:Ambulance
Comments:
Beck Tejada Transfer from [facility]. Pt brought in by family after a fall from 5-6 steps. Pt is c-collared by [facility] prior to transfer. 20g R AC after [...] and Surgical History, and [facility]. Review of Systems Constitutional: Negative [...] [facility] I discussed the case with [...] down stairs will require trauma evaluation [facility]. New Prescriptions No medications on file Final diagnoses: Fall down stairs 12/03/2011 [facility] EMERGENCY DEPARTMENT Duane Mcallister MD 12/03/11 0243 [...] Care Review (Adult,OB,Behavioral) The patient and/or their pharmacy sales representative will communicate an understanding of their plan of care. The patient and her twin sister agreed with the plan of care on pain management. Patient was sent home on Percocet. Pharmacy-Admission Medication History - Marlen Caridad Lee, [facility] - 12/03/2011 7:18 PM CDT Admission medication history interview status for the 12/03/2011 admission is complete. See [facility] admission navigator for allergy information, prior to admission medications and immunization status. Medication history interview source(s):Patient Medication history resources (including written lists, pill bottles, clinic record):None Medication history source reliability:Moderate Primary pharmacy: [facility] [place] [facility] phone number: [phone] Pneumococcal and influenza vaccine history documented: yes Changes made to BUS BOY medication list: Added: Reclast, Methotrexate dose, Omeprazole [...] daily. For Tooth Extraction Pain ergocalciferol (ERGOCALCIFEROL) 34252 UNIT capsule Yes No One capsule twice weekly predniSONE 10 MG KIT 12/03/2011 at 0800 Yes Yes Take by mouth daily. levothyroxine (LEVOTHROID) 75 MCG tablet 12/03[place]2011 [place] [address] Yes Yes Take by mouth daily. glimepiride [...] tablets by mouth daily. Caridad Gee PharmD [phone] (text capable) Plan of Anthony - Carolin [...] before discharge. Plan of Care - Nori Augustin RN - 12/03/2011 4:01 PM CDT Problem: [...] encounter Results MRI Brain for stroke complete ([place] Only) (12/03/2011 1:37 PM CDT) Anatomical Region [...] ghted images were obtained. Head MRA: 3D detx-ot-owngtk MRA of the c ircle of Feliciano [...] agree with the findings. Peyton Giordano MD [facility] CT ORDERABLES Cervical spine CT w/o contrast [...] C4-C5, C5-C6 and C6-C7. Peyton Giordano MD [facility] CT ORDERABLES Head CT w/o contrast (12/03/2011 [...] brain is recommended to exclude acute infarction. ELECTRONIC EQUIPMENT TRADES WORKER Porter was notified regarding the ab ove [...] Signature PTT 35 22 - 37 sec [facility] LAB Specimen Anatomical Collection Method Collection Time Receive d Time (Source) Location / / Volume Laterality 12/03/2011 2:45 AM 2 2:53 CDT AM CDT Duane Mcallister MD LAB - BLOOD ORDERABLES Performing Organization Address City/[facility] Phon e Number [address] LAB INR (12/03/2011 2:45 AM CDT) athologist Signature INR 0.99 0.86 - 1.14 [facility] LAB Specimen Anatomical Collection Method Collection Time Receive d Time (Source) Location / / Volume Laterality Blood specimen 12/03/2011 2:45 AM 012 2:53 (specimen) CDT AM CDT Duane Mcallister MD LAB - BLOOD ORDERABLES Performing Organization Address City/[facility] Phon e Number [address] LAB Comprehensive metabolic panel (12/03/2011 2:45 [...] Urea Nitrogen 12 7 - 30 [facility] mg/dL LAB Creatinine 0.90 0.52 - [facility] 1.04 mg/dL LAB GFR Estimate 65 >60 [facility] mL/min/1.7 LAB m2 GFR Estimate If 78 >60 [facility] Black mL/min/1.7 LAB m2 Calcium 9.2 8.5 - 10.4 [facility] mg/dL LAB Bilirubin Total 0.5 0.2 - 1.3 [facility] [place] mg/dL LAB Albumin 4.4 3.3 - 4.9 [facility] g/dL LAB Protein Total 7.0 6.8 - 8.8 [facility] [place] g/dL LAB Alkaline 81 40 - 150 [facility] Phosphatase U/L LAB ALT 29 0 - 50 U/L [facility] [place] LAB AST 35 0 - 45 U/L [facility] [place] LAB Specimen Anatomical Collection Method Collection Time Receive d Time (Source) Location / / Volume Laterality Blood specimen 12/03/2011 2:45 AM 012 2:53 (specimen) CDT AM CDT Duane Mcallister MD LAB - BLOOD ORDERABLES Performing Organization Address City/State/ZIP Code Phon e Number [facility] [address] [place], [place] [id number] [place] [address] [facility] (ABNORMAL) CBC with platelets differential (12/03/2011 2:45 AM CDT) [facility] gist Method Time Signature WBC 6.2 4.0 - [facility] 11.0 [place] 10e9/L LAB RBC Count 5.03 3.8 - 5.2 [facility] 10e12/L [place] LAB Hemoglobin 15.2 11.7 - [facility] 15.7 g/dL [place] LAB Hematocrit 45.2 35.0 - [facility] 47.0 % [place] LAB MCV 90 78 - 100 [facility] fl [place] LAB MCH 30.2 26.5 - [facility] 33.0 pg [place] LAB MCHC 33.6 31.5 - [facility] 36.5 g/dL [place] LAB RDW 13.3 10.0 - [facility] 15.0 % [place] LAB Platelet Count 235 150 - 450 [facility] 10e9/L [place] LAB Diff Method Automated [facility] Method [place] LAB % Neutrophils 59.2 40 - 75 % [facility] LAB % Lymphocytes 24.9 20 - 48 % [facility] [place] LAB % Monocytes 13.6 (H) 0 - 12 % [facility] [place] LAB % Eosinophils 1.6 0 - 6 % [facility] [place] LAB % Basophils 0.5 0 - 2 % [facility] LAB % Immature 0.2 0 - 0.4 % [facility] Granulocytes [place] LAB Absolute 3.7 1.6 - 8.3 [facility] Neutrophil 10e9/L [place] LAB Absolute 1.5 0.8 - 5.3 [facility] Lymphocytes 10e9/L [place] [facility] Absolute 0.8 0.0 - 1.3 [facility] Monocytes 10e9/L [place] [facility] Absolute 0.1 0.0 - 0.7 [facility] Eosinophils 10e9/L [place] [facility] Absolute 0.0 0.0 - 0.2 [facility] Basophils 10e9/L [place] LAB Abs Immature 0.0 0 - 0.03 [facility] Granulocytes 10e9/L [place] LAB Specimen Anatomical Collection Method Collection Time Receive d Time (Source) Location / / Volume Laterality Blood specimen 12/03/2011 2:45 AM 012 2:53 (specimen) CDT AM CDT Duane Mcallister MD LAB - BLOOD ORDERABLES Performing Organization Address City/State/ZIP Code Phon e Number [facility] [address] [place] [address] [facility] LAB documented in this encounter Visit [...] (COMPLETED) 0431 (Given - Provider: [facility] 100 mL, Intravenous, ONCE, Sat12/03/11 at 0416, For 1 dose LORazepam (ATIVAN) tablet 1 mg (COMPLETED) 1159 (Given - Provider: Nori Augustin, NANDINI) 1 mg, Oral, ONCE, Sat12/03/11 at [...] (COMPLETED) 0431 (Given - Provider: Corn[facility]) 20 mL, Intravenous, ONCE, Sat12/03/11 at 0416, [...] 1029 documented in this encounter Care Teams Real Estate Lawyer Relationship Specialty Start Date End Date Edison Tam MD PCP - General Family Practice 09/21/11 07/22/14 909 [facility] 4 [place] [address] documented as of this encounter
--- OUTSIDE RECORDS SUMMARY | 2021-10-26 13:41 | XMS_ITS | Encounter Summary ---
:1955 Author Organization [facility] Address [address] [place] [address] Care Team Providers Name Role Phone Edison Tam MD Primary Care Provider Reason for Visit Reason Onset Date Comments Medication Request 12/19/2011 Encounter Details Date Type Department Care Team Description 12/19/2011 Telephone [facility], Primary Edison Tam, Medication Request Care Center 3rd Floor, Clinic [address] [place] [address] [place] [address] [place] [address] Social History Tobacco Use Types [...] Please call her on her cell at [phone] to discuss her options. Thanks. Shantal Please DO NOT send this message and/or reply back to sender. Call Center Representatives DO NOT respond to messages. documented in this encounter Plan of Treatment Not on filedocumented as of this encounter Visit Diagnoses Not on filedocumented in this encounter Care Teams Bulk Picker Relationship Specialty Start Date End Date Edison Tam MD PCP - General Family Practice 09/21/11 07/22/[address] [address] documented as of this encounter
--- OUTSIDE RECORDS SUMMARY | 2021-10-26 13:41 | XMS_ITS | Encounter Summary ---
:1955 Author Organization [place] Address [address] [place] [address] Care Team Providers Name Role Phone Edison Tam MD Primary Care Provider Reason for Visit Reason Onset Date Comments Results 11/07/2011 Encounter Details Date Type Department Care Team Description 11/07/2011 Telephone [facility], Primary Care Edison Antoine MD Results Center [address] [place] [address] 4 3rd Floor, Clinic 3A [place], [place] [address] [place] [address] [place] [address] [phone] Social History Tobacco Use [...] ArthurDede nobles Sent: 11/08/2011 3:55 PM To: [facility]: Scheduling Could you please help schedule [...] obstruction documented in this encounter Care Teams Mainframe Developer Relationship Specialty Start Date End Date Edison Tam MD PCP - General Family Practice 09/21/11 07/22/14 909 [facility] 4 [place] [address] documented as of this encounter
--- OUTSIDE RECORDS SUMMARY | 2021-10-26 13:41 | XMS_ITS | Encounter Summary ---
:1955 Author Organization [facility] Address [address] [place] [address] Care Team Providers Name Role Phone Edison Olivas MD Primary Care Provider Reason for Visit Reason Comments Consult right renal mass Encounter Details Date Type Department Care Team Description 01/10/2012 Office Visit UROLOGY CLINIC AND Weight, Rigoberto [facility] Serg of kidney, except PROSTATE AND [address] pelvis (Primary Dx) [place] [address] [facility] [phone] (Wo rk) BUILDING 4TH FLOOR, [address] 420 [facility] [address] [place] [address] Social History Tobacco Use Types [...] (TYLENOL EXTRA STRENGTH PO) ??? ergocalciferol (ERGOCALCIFEROL) 92740 UNIT capsule ??? predniSONE 10 MG KIT [...] on file Social History Narrative Moved to [place] from [facility] to live with Twin sister [...] Rigoberto Brian MD Department of Urology Staff [facility] Patient Care Team: Edison Olivas MD as PCP - General (Family Practice) EDISON OLIVAS Copy to patient MARIA E NORMAN [address] [facility] [address] documented in this encounter Nursing Notes 01/10/2012 11:00 AM CDT >> Sharri Ordoñez, JENNIFER Tish Jan 10, 2012 11:16 AM Patient presents with: Consult - right renal mass documented in this encounter Miscellaneous Notes Initial Assessments - Rigoberto Brian MD - 01/22/2012 11:05 AM PLANS EXAMINER S EXAMINER documented in this encounter Plan of Treatment Not on filedocumented as of this encounter Visit Diagnoses Diagnosis Malignant neoplasm of kidney, except pel vis - Primary documented in this encounter Care Teams Ems Manager Relationship Specialty Start Date End Date Edison Olivas MD PCP - General Family Practice 09/21/11 07/22/[address] [address] documented as of this encounter
--- OUTSIDE RECORDS SUMMARY | 2021-10-26 13:41 | XMS_ITS | Encounter Summary ---
:1955 Author Organization [place] Address [facility] [place] [address] Care Team Providers Name Role Phone Edison Tam MD Primary Care Provider Encounter Details Date Type Department Care Team Description 12/13/2011 Orders Only Orthopaedic Clinic Ike Oliver Right wrist fracture [facility] MD Jenny (Primary Dx) Center XX RETIRED XX 1st Floor, [address] [address] [place], [place] [phone] [address] (Work) [phone] Social History Tobacco Use Types Packs/Day Years [...] ne documented in this encounter Care Teams Finishing Machine Operator Automatic Relationship Specialty Start Date End Date Edison Tam MD PCP - General Family Practice 09/21/11 07/22/14 909 [facility] 4 [place], [place] [address] documented as of this encounter
--- OUTSIDE RECORDS SUMMARY | 2021-10-26 13:41 | XMS_ITS | Encounter Summary ---
:1955 Author Organization [place] Address [address] [place] [address] Care Team Providers Name Role Phone Edison Tam MD Primary Care Provider Reason for Referral Specialty Diagnoses / Procedures Referred By Contact Refer red To Contact Edison Tam MD [address] [place] [address] [facility] Referral ID Status Reason Start Date Expiration [...] care facility 3rd Floor, Clinic 3A [address] [address] [facility] [place], [place] (Work) [phone] Social History Tobacco Use Types Packs/Day Years [...] InstructionsAnkit Kong - 12/13/2011 11:46 AM CDT ENTERPRISE PROJECT MANAGER [phone] ([place]: [address] [place] [address], [address]) Primary Care Center Medication Refill Request Information: * Please contact your pharmacy regarding ANY request for medication refills. [facility] Prescription Fax = [phone] * Please allow 3 business days for routine medication refills. * Please allow 5 business days for controlled substance medication refills. FLU VACCINE QUESTIONNAIRE: Ask the following questions of all parties who want influenza vaccination: CONTRAINDICATIONS 1. Is the patient age less than 6 months? NO 2. Has the person to be vaccinated ever had Guillain-Ellery syndrome? NO 3. Has the person to [...] (TYLENOL EXTRA STRENGTH PO) ??? ergocalciferol (ERGOCALCIFEROL) 56228 UNIT capsule ??? predniSONE 10 MG KIT [...] on file Social History Narrative [place] from [facility] to live with Twin sister Joan [...] brain is recommended to exclude acute infarction. [facility] was notified regarding the above [...] T1-weighted images were obtained. Head MRA: 3D [id number] MRA of the nez perce of Feliciano was performed without intravenous contrast. [...] orders for this visit: Ovarian mass - ENTERPRISE PROJECT MANAGER REFERRAL Routine general medical examination at a [...] would like her to follow up with ENTERPRISE PROJECT MANAGER for evaluation. She was overusing her Benadryl. [...] 12/13/2011 11:15 AM CDT >> ANKIT KONG [facility] Dec 13, 2011 11:46 AM Patient presents [...] Name Type Priority Associated Diagnoses [facility] ENTERPRISE PROJECT MANAGER REFERRAL Referral Routine Ovarian mass Ordered: 06/2011 documented as of this encounter Visit Diagnoses Diagnosis Ovarian mass - Primary Unspecified noninflammatory disorder of ovary, fallopian tube, and broad ligament Routine general medical examination at a health care facility documented in this encounter Care Teams Thread Checker Relationship Specialty Start Date End Date Edison Tam MD PCP - General Family Practice 09/21/11 07/22/14 909 [facility] 4 [place] [address] documented as of this encounter
--- OUTSIDE RECORDS SUMMARY | 2021-10-26 13:41 | XMS_ITS | Encounter Summary ---
:1955 Author Organization [place] Address [facility] [place] [address] Care Team Providers Name Role Phone Edison Tam MD Primary Care Provider Encounter Details Date Type Department Care Team Description 12/14/2011 Orders Only Orthopaedic Clinic Ike Oliver Right wrist fracture [facility] MD Jenny Center XX RETIRED XX 1st Floor, [address] [address] [place], [place] [phone] [address] (Work) [phone] Social History Tobacco Use Types Packs/Day Years [...] ne documented in this encounter Care Teams Engine Repairer Service Relationship Specialty Start Date End Date Edison Tam MD PCP - General Family Practice 09/21/11 07/22/[address] [address] documented as of this encounter
--- OUTSIDE RECORDS SUMMARY | 2021-10-26 13:42 | XMS_ITS | Encounter Summary ---
:1955 Author Organization [place] Address [address] [place] [address]. [place] [address] Care Team Providers Name Role Phone Edison Tam MD Primary Care Provider Encounter Details Date Type Department Care Team Description 05/21/2011 Medical Correspondence [facility] NOTES & Health Info Mgmt Edison Kennedy MD RESULTS, 05/21/2011 Srvcs [address] 4 [facility], [address] [place] [address] Social History Tobacco Use Types Packs/Day Years Used Date Never Assessed Sex Assigned at Date Recorded Not on file documented as of this encounter Plan of Treatment Not on filedocumented as of this encounter Visit Diagnoses Not on filedocumented in this encounter Care Teams Trimmer Press Clippings Relationship Specialty Start Date End Date Edison Tam MD PCP - General Family Practice 09/21/11 07/22/[address] [facility] 4 [place] [address] documented as of this encounter
--- OUTSIDE RECORDS SUMMARY | 2021-10-26 13:42 | XMS_ITS | Encounter Summary ---
:1955 Author Organization [place] Address [address] [place] [address]. [place] [address] Care Team Providers Name Role Phone Edison Tam MD Primary Care Provider Encounter Details Date Type Department Care Team Description 11/23/2009 Medical Correspondence [facility]el [facility] NOTES & Health Info Mgmt Edison Kennedy MD RESULTS, [facility] Sr[facility]cs 909 [facility], [facility] 4 11/23/2009 [facility], [address] [place] [address] [phone] Social History Tobacco Use Types Packs/Day Years Used Date Never Assessed Sex Assigned at Date Recorded Not on file documented as of this encounter Plan of Treatment Not on filedocumented as of this encounter Visit Diagnoses Not on filedocumented in this encounter Care Teams Contact Lens Manufacturer Relationship Specialty Start Date End Date Edison Tam MD PCP - General Family Practice 09/21/11 07/22/14 909 [facility] 4 [place], [place] [address] documented as of this encounter
--- OUTSIDE RECORDS SUMMARY | 2021-10-26 13:42 | XMS_ITS | Encounter Summary ---
:1955 Author Organization [place] Address [address] [place] [address]. [place] [address] Care Team Providers Name Role Phone Edison Tam MD Primary Care Provider Encounter Details Date Type Department Care Team Description 09/26/2011 Telephone Physicians, Primary Care Edison Antoine MD [address] 4 3rd Floor, Clinic 3A [place] [address] [facility] 6 [facility] [address] [address] Social History Tobacco Use [...] Tam MD - 09/26/2011 9:41 AM CDT [phone] (H) [phone] (M) I discussed the labs with her. She will be seeing Dr Beckman at [facility] today, needs labs faxed today. I [...] of certain cancers. Please take Vitamin D 11127 IU twice weekly for 8 weeks forreplacement. [...] deficiency documented in this encounter Care Teams Beamster Relationship Specialty Start Date End Date Edison Tam MD PCP - General Family Practice 09/21/11 07/22/14 329 [facility] 4 [place] [address] documented as of this encounter
--- OUTSIDE RECORDS SUMMARY | 2021-10-26 13:42 | XMS_ITS | Encounter Summary ---
:1955 Author Organization [place] Address [address] [place] [address]. [place] [address] Care Team Providers Name Role Phone Edison Tam MD Primary Care Provider Encounter Details Date Type Department Care Team Description 03/15/2010 Medical Correspondence [facility] Unknown, MAMMOGRAM REPORT, Health Info Mgmt Provider 03/15/10 [facility] [address] [place] [address] Social History Tobacco Use Types Packs/Day Years Used Date Never Assessed Sex Assigned at Date Recorded Not on file documented as of this encounter Plan of Treatment Not on filedocumented as of this encounter Visit Diagnoses Not on filedocumented in this encounter Care Teams Algorithm Developer Relationship Specialty Start Date End Date Edison Tam MD PCP - General Family Practice 09/21/11 07/22/[address] [place] [id number] documented as of this encounter
--- OUTSIDE RECORDS SUMMARY | 2021-10-26 13:42 | XMS_ITS | Encounter Summary ---
:1955 Author Organization [place] Address [address] [place] [address]. [place] [address] Care Team Providers Name Role Phone Edison Tam MD Primary Care Provider Encounter Details Date Type Department Care Team Description 05/09/[address] [facility] Unknown, LAB RESULTS, Health Info Mgmt Provider [facility], 05/09/[address] [place] [id number] Social History Tobacco Use Types Packs/Day Years Used Date Never Assessed Sex Assigned at Date Recorded Not on file documented as of this encounter Plan of Treatment Not on filedocumented as of this encounter Visit Diagnoses Not on filedocumented in this encounter Care Teams Corporate Quality Manager Relationship Specialty Start Date End Date Edison Tam MD PCP - General Family Practice 09/21/11 07/22/[address] [address] documented as of this encounter
--- OUTSIDE RECORDS SUMMARY | 2021-10-26 13:42 | XMS_ITS | Encounter Summary ---
:1955 Author Organization [place] Address [address] [place] [address]. [place] [address] Care Team Providers Name Role Phone Unavailable Primary Care Provider Unavailable Reason for Visit Reason Comments Crohns Encounter Details Date Type Department Care Team Description 09/20/2011 Office Visit Physicians, Primary Edison Tam Screening for depression (Primary Dx); Care Center MD Annabel Renal mass, right; 3rd Floor, Clinic 3A 909 [facility] Osteoporosis; [facility] 4 Vitamin D deficiencies; Building [place], [place] Crohn's disease of both smal l and large intestine with complication (H); [address] [facility] [place] [address] Yossi thyroiditis; [facility] 88 Fatigue; [place], [place] (Work) Dysuria; [id number] Thrush; Hyperglycemia; Dyspnea [...] to schedule your appointment at: Primary Care [phone] (3rd Floor PWB, [address]) Breast Center [phone] ([facility] 1st floor) Complete Radiology (Imaging Center) [phone] (1st Floor PWB, [address]) DEXA Screening [...] discuss new symptoms. She has moved from [place] to live with her twin sister. This [...] much of her bowel resected, management through [facility], Dr Beckman. She has been on [...] (REQUIP) 5 MG tablet ??? ergocalciferol (ERGOCALCIFEROL) 49198 UNIT capsule ??? Loperamide HCl (IMODIUM A-D [...] Social History Narrative [place]oved [place] [facility] [...] mouth 2 times daily. - ergocalciferol (ERGOCALCIFEROL) 83812 UNIT capsule; Take 50,000 Units by mouth [...] Signature Hemoglobin A1C 5.4 4.3 - 6.0 [facility] LABS Specimen Anatomical Collection Method Collection Time Receive d Time (Source) Location / / Volume Laterality Blood specimen 09/20/2011 1:24 PM 012 1:27 (specimen) CDT PM CDT Edison Tam MD LAB - BLOOD ORDERABLES Performing Organization Address City/[facility] Code Phon e Number [address] LABS (ABNORMAL) Vitamin B6 (09/20/2011 1:24 PM CDT) athologist Signature Vitamin B6 233.7 (H) [facility] LABS Comment: Reference range: 20.0 to 125.0 Unit: nmol/L (Note) INTERPRETIVE INFORMATION: Vitamin B6 (Py ridoxal 5-Phosphate) Pyridoxal 5'-phosphate measured in a james ple collected following an 8 hour or overnight fast ac curately indicates vitamin B6 nutritional status. Non-fasti ng sample concentration reflects recent vitamin in take. Performed by [facility], [address] [place] [id number] [email or web address], Dodie Cotter MD, Lab. Director Specimen Anatomical Collection Method Collection Time Receive d Time (Source) Location / / Volume Laterality Blood specimen 09/20/2011 1:24 PM 012 1:26 (specimen) CDT PM CDT Edison Tam MD LAB - BLOOD ORDERABLES Performing Organization Address [facility] Phon e Number [address] LABS Vitamin B1 whole blood (09/20/2011 1:24 PM CDT) athologist Signature Vitamin B1 137 [facility] Blood [facility] LABS Level Comment: Reference range: 70 to [...] 10%, are not marques ured. Performed by [facility], [address] [place] [address] www.[email or web address], Dodie Cotter MD, Lab. Director Specimen Anatomical Collection Method Collection Time Receive d Time (Source) Location / / Volume Laterality Blood specimen 09/20/2011 1:24 PM 012 1:26 (specimen) CDT PM CDT Edison Tam MD LAB - BLOOD ORDERABLES Performing Organization Address [facility] Phon e Number [address] LABS Zinc (09/20/2011 1:24 PM CDT) athologist Signature Zinc [address] [place] [address] LABS Comment: Reference range: 60 to 120 Unit: ug/dL (Note) INTERPRETIVE INFORMATION: Zinc, Serum Circulating zinc concentrations are depe ndent on albumin status and are depressed with malnutriti on. Zinc may also be lowered with infection, inflammation, stress, oral contraceptives, and . Zinc may be elevated with zinc supplementation or fasting. Elevate d zinc concentrations may interfere with copper absorption. Performed by [facility], [address] [place] [address] www.[email or web address], Dodie Cotter MD, Lab. Director Specimen Anatomical Collection Method Collection Time Receive d Time (Source) Location / / Volume Laterality Blood specimen 09/20/2011 1:24 PM 012 1:26 (specimen) CDT PM CDT Edison Tam MD LAB - BLOOD ORDERABLES Performing Organization Address [facility] Phon e Number [address] LABS (ABNORMAL) Magnesium (09/20/2011 1:24 PM CDT) athologist Signature Magnesium 2.4 (H) 1.6 - 2.3 [facility] mg/dL CAMPUS LABS Specimen Anatomical Collection Method Collection Time Receive d Time (Source) Location / / Volume Laterality Blood specimen 09/20/2011 1:24 PM 012 1:26 (specimen) CDT PM CDT Edison Tam MD LAB - BLOOD ORDERABLES Performing Organization Address City/[facility]/ZIP Code Phon e Number [address] LABS Vitamin B12 (09/20/2011 1:24 PM CDT) athologist Signature Vitamin B12 295 >210 pg/mL [facility] LABS Comment: Interp: [phone] = Normal Specimen Anatomical Collection Method Collection Time Receive d Time (Source) Location / / Volume Laterality Blood specimen 09/20/2011 1:24 PM 012 1:26 (specimen) CDT PM CDT Edison Tam MD LAB - BLOOD ORDERABLES Performing Organization Address City/[facility]/ZIP Code Phon e Number [address] LABS (ABNORMAL) Vitamin D Deficiency (09/20/2011 1:24 PM CDT) athologist Signature 25 [place] Vit D 21 (L) 30 - 75 [facility] total ug/L [facility]S Comment: Season, race, dietary intake, and treatm ent affect the concentration of 43-nzbsazj-Snjhaec D. Values may decrea se during winter [...] questions, please contact [facility] at [phone]. Specimen Anatomical Collection Method Collection Time Receive d Time (Source) Location / / Volume Laterality Blood specimen 09/20/2011 1:24 PM 012 1:26 (specimen) CDT PM CDT Edison Tam MD LAB - BLOOD ORDERABLES Performing Organization Address City/State/ZIP Code Phon e Number [address] [address] [facility] LABS (ABNORMAL) CBC with platelets differential (09/20/2011 1:24 PM CDT) [facility] gist Method Time Signature WBC 7.3 4.0 - [facility] 11.0 UNIVERSITY 10e9/L CAMPUS LABS RBC Count 4.78 3.8 - 5.2 [facility] 10e12/L [facility] LABS Hemoglobin 14.2 11.7 - [facility] 15.7 g/dL [facility] LABS Hematocrit 43.8 35.0 - [facility] 47.0 % [facility] LABS MCV 92 78 - 100 [facility] fl [facility] LABS MCH 29.7 26.5 - [facility] 33.0 pg [facility] LABS MCHC 32.4 31.5 - [facility] 36.5 g/dL [facility] LABS RDW 14.4 10.0 - [facility] 15.0 % [facility] LABS Platelet Count 246 150 - 450 [facility] 10e9/L [facility] LABS Diff Method Automated [facility] Method [facility] LABS % Neutrophils 80.7 (H) 40 - 75 % [facility] % Lymphocytes 8.8 (L) 20 - 48 % [facility] % Monocytes 9.1 0 - 12 % [facility] % Eosinophils 0.8 0 - 6 % [facility] % Basophils 0.3 0 - 2 % [facility] % Immature 0.3 0 - 0.4 % [facility] Granulocytes [facility] LABS Absolute 5.9 1.6 - 8.3 [facility] Neutrophil 10e9/L [facility] LABS Absolute 0.6 (L) 0.8 - 5.3 [facility] Lymphocytes 10e9/L [facility] LABS Absolute 0.7 0.0 - 1.3 [facility] Monocytes 10e9/L [facility] LABS Absolute 0.1 0.0 - 0.7 [facility] Eosinophils 10e9/L [facility] LABS Absolute 0.0 0.0 - 0.2 [facility] Basophils 10e9/L [facility] LABS Abs Immature 0.0 0 - 0.03 [facility] Granulocytes 10e9/L [facility] LABS Specimen Anatomical Collection Method Collection Time Receive d Time (Source) Location / / Volume Laterality Blood specimen 09/20/2011 1:24 PM 012 1:26 (specimen) CDT PM CDT Edison Tam MD LAB - BLOOD ORDERABLES Performing Organization Address City/State/ZIP Code Phon e Number [facility] [address] LABS Comprehensive metabolic panel (09/20/2011 1:24 PM CDT) athologist Signature Sodium 138 133 - 144 [facility] mmol/L [facility] LABS Potassium 4.1 3.4 - 5.3 [facility] mmol/L [facility] LABS Chloride 103 94 - 109 [facility] mmol/L [facility] LABS Carbon Dioxide 26 20 - 32 [facility] mmol/L [facility] LABS Anion Gap 10 6 - 17 [facility] mmol/L [facility] LABS Glucose 85 60 - 99 [facility] mg/dL [facility] LABS Urea Nitrogen 10 7 - 30 [facility] mg/dL [facility] LABS Creatinine 0.88 0.52 - [facility] 1.04 mg/dL [facility] LABS GFR Estimate 66 >60 [facility] mL/min/1.7 [place] m2 CAMPUS LABS GFR Estimate If 80 >60 [facility] Black mL/min/1.7 [place] [address] CAMPUS LABS Calcium 8.8 8.5 - 10.4 [facility] mg/dL [facility] LABS Bilirubin Total 0.5 0.2 - 1.3 [facility] mg/dL [facility] LABS Albumin 4.5 3.3 - 4.9 [facility] g/dL [facility] LABS Protein Total 7.4 6.8 - 8.8 [facility] g/dL [facility] LABS Alkaline 86 40 - 150 [facility] Phosphatase U/L [facility] LAB[facility] ALT 23 0 - 50 U/L [facility] LABS AST 30 0 - 45 U/L [facility] LABS Specimen Anatomical Collection Method Collection Time Receive d Time (Source) Location / / Volume Laterality Blood specimen 09/20/2011 1:24 PM 012 1:26 (specimen) CDT PM CDT Edison Tam MD LAB - BLOOD ORDERABLES Performing Organization Address City/State/ZIP Code Phon e Number [facility] 500 [place], [place] [id number] [place] [address] LABS TSH with free T4 reflex (09/20/2011 1:24 PM CDT) P athologist Signature TSH 0.44 0.4 - 5.0 [facility] mU/L CAMPUS LABS Specimen Anatomical Collection Method Collection Time Receive d Time (Source) Location / / Volume Laterality Blood specimen 09/20/2011 1:24 PM 012 1:26 (specimen) CDT PM CDT Edison Tam MD LAB - BLOOD ORDERABLES Performing Organization Address City/[facility]/ZIP Code Phon e Number [id number] [place] [address] LABS (ABNORMAL) Routine UA with micro reflex to culture (09/20/2011 1:09 PM CDT) Patholo gist Method Time Signature Color Urine Yellow [facility] LABS Appearance Urine Clear [facility] Glucose Urine Negative NEG mg/dL [facility] Bilirubin Urine Negative NEG [facility] Ketones Urine Negative NEG mg/dL [facility] Specific [place] 1.016 1.003 - [facility] Urine 1.035 [facility] LABS Blood Urine Negative NEG [facility] pH Urine 5.5 5.0 - 7.0 [facility] pH [place] [facility] Protein Albumin Negative NEG mg/dL [facility] Urine [facility] LABS Urobilinogen Normal 0.0 - 2.0 [facility] mg/dL mg/dL [facility] LABS Nitrite Urine Negative NEG [facility] Leukocyte Negative NEG [facility] Esterase Urine [facility] LABS Source Midstream [facility] Urine [facility] LABS WBC Urine 1 0 - 2 [facility] /HPF [facility]AMP[facility] LABS RBC Urine <1 0 - 2 [facility] /HPF [place] [facility] Squamous 1 0 - 1 [facility] Epithelial /HPF /HPF [facility]ITY Urine CAMPUS LABS Mucous Urine Present (A) NEG /LPF [facility] CAMPUS LABS Specimen Anatomical Collection Method Collection Time Receive d Time (Source) Location / / Volume Laterality Urine specimen 09/20/2011 1:09 PM 012 1:10 (specimen) CDT PM CDT Edison Tam MD LAB - URINE ORDERABLES Performing Organization Address City/[facility]/ZIP Code Phon e Number [address] [address] [facility] LABS documented in [...]
--- OUTSIDE RECORDS SUMMARY | 2021-10-26 13:42 | XMS_ITS | Encounter Summary ---
:1955 Author Organization [place] Address [facility]0 [facility] [place] [address] Care Team Providers Name Role Phone Edison Tam MD Primary Care Provider Encounter Details Date Type Department Care Team Description 09/20/2011 [facility] Health Info Mgmt Edison Kennedy MD HEALTH HISTORY Srvcs 909 [facility], 09/20/[address] [place] [address] 4 [facility], [address] [place] [address] Social History Tobacco Use Types Packs/Day [...] on filedocumented in this encounter Care Teams Apple Turner Relationship Specialty Start Date End Date Edison Tam MD PCP - General Family Practice 09/21/11 07/22/14 909 [facility] 4 [place] [address] documented as of this encounter
--- OUTSIDE RECORDS SUMMARY | 2021-10-26 13:42 | XMS_ITS | Encounter Summary ---
:1955 Author Organization [place] Address [address] [place] [address] Care Team Providers Name Role Phone Unavailable Primary Care Provider Unavailable Reason for Visit Reason Onset Date Comments Pre Visit Planning - Unable To Reach 09/19/2011 Encounter Details Date Type Department Care Team Description 09/19/2011 PRE VISIT [facility], Primary Edison Tam Pre Visit Planning - Care [place] MD Marcia Unable To Reach 3rd Floor, Clinic [address]A [address] [place] [id number] [place] [address] [place], [place] (Work) [address] [phone] Social History Tobacco Use Types Packs/Day Years Used Date Never Assessed Sex Assigned at Date Recorded Not on file documented as of this encounter Miscellaneous Notes Telephone Encounter - Dee Cancino - 09/19/2011 12:48 PM CDT Pre-visit planning completed for this patient. * Patient was notified of the construction that surrounds the [place] and the extra time they mayneed to get to us and also parking. *Medication list reviewed and/or updated Medication were updated in [facility] from: (Pick all that apply) No records found * Pharmacy was updated in [facility]. * Patient was instructed to bring in any refill request at the time of their appointment. * Patient was instructed to come to their appointment fasting for lab work. * Immunization record was reviewed and/or updated Immunization were updated in [facility] from: (pick all that apply) From [employer] * Patient was instructed to bring in [...]
--- OUTSIDE RECORDS SUMMARY | 2021-10-26 13:42 | XMS_ITS | Encounter Summary ---
:1955 Author Organization [place] Address [address] [place] [address] Care Team Providers Name Role Phone Edison Olivas MD Primary Care Provider Reason for Referral Specialty Diagnoses / Procedures Referred By Contact Refer red To Contact Edison Olivas MD [address] [place] [address] 5 Referral ID Status Reason Start Date Expiration Date Visits Requ ested Visits Authorized Specialty Diagnoses / Procedures Referred By Contact Radha isaac To Contact Edison Olivas MD [address] [place] [address] 5 Referral ID Status Reason Start Date Expiration Date Visits Requ ested Visits Authorized Specialty Diagnoses / Procedures Referred By Contact Radha isaac To Contact Edison Olivas MD [address] [place] [address] 5 Referral ID Status Reason Start Date Expiration Date Visits Requ ested Visits Authorized Specialty Diagnoses / Procedures Referred By Contact Radha isaac To Contact Edison Olivas MD 909 [facility] [address] [place], [place] [address] Referral ID Status Reason Start Date [...] Yossi thyroiditis; 3rd Floor, Clinic 3A 909 [facility] Connective tissue disease (H ); [facility] 4 Osteoporosis; Building [place], [place] Thrush; [address] [place] [address] Dermatitis; [facility] 88 Fibrosis of skin; [place], [place] (Work) Routine general medical examination at [...] She had to establish new insurance in [place] so she has not schedule some of [...] (TYLENOL EXTRA STRENGTH PO) ??? ergocalciferol (ERGOCALCIFEROL) 15650 UNIT capsule ??? Cyanocobalamin (VITAMIN B-12 IJ) [...] History Narrative Moved to [place] from [facility] [place] to live with Twin sister Joan [place]. [...] scheduled, already ordered. Thrush - nystatin (MYCOSTATIN) 860831 UNIT/ML suspension; Take 5 mLs by mouth [...] Notes 11/01/2011 10:00 AM CDT >> [facility] Nov 01, 2011 10:14 AM Patient presents [...] examination procedur e are in at a [facility] care the results facility section. HC CERV/VAG CANC Routine 11/01/2011 10:59 Routine general SCRN,PELV/BREAST AM CDT medical examination EXAM at a health care facility WET PREPARATION Routine 11/01/2011 10:59 Vaginal discharge Res ults for this AM CDT procedure are i n the results section. documented in this encounter Results PAP Screen (LAB) (11/01/2011 11:00 AM CDT) Component Value Ref Test Analysis Performed At [facility] Range Method Time Signature PAP NIL COPATH Copath Report COPATH Patient Name: MARIA E NORMAN MR#: [id number] Specimen #: [id number] Collected: 11/01/2011 Received: 11/01/2011 Reported: 11/05/2011 11:45 [...] BRITNEY Clemente (ASCP) Processed and screened at [facility] CLINICAL HISTORY: Other: cohns, vaginal fistula, Papanicolaou Test Limitations: ??Cervical cytology is a scre ening test with limited sensitivity; regular screening is critical for cancer prevention; Pap tests are primarily effective for the diagnosis/prevention of squamous cell carcinoma, not adenoca rcinomas or other cancers. TESTING LAB LOCATION: [facility], [facility] [address] [place], [place] ??[address] COLLECTION SITE: Client: ??[facility] Location: [facility] (B) Specimen (Source) Anatomical Collection Method Collection Time Re ceived Time Location / / Volume Laterality Cytologic 11/01/2011 11:00 11/01/2011 2:55 material AM CDT PM CDT (specimen) Edison Olivas MD LAB - OPTIME CLINICAL SPECIM EN Performing Organization Address City/State/ZIP Code Phon e Number COPATH Wet prep (11/01/2011 10:59 AM CDT) Component Value Ref Test Analysis [facility] gist Range Method Time Signature Specimen Vagina [...] Organization Address City/State/ZIP Code Phon e Number [facility] 500 [place], [place] [id number] [place] [address] [facility] documented in this encounter Visit [...] infective documented in this encounter Care Teams Braille Teacher Relationship Specialty Start Date End Date Edison Olivas MD PCP - General Family Practice 09/21/11 07/22/14 900 [facility] 4 [place] [address] documented as of this encounter
--- OUTSIDE RECORDS SUMMARY | 2021-10-26 13:44 | XMS_ITS | Encounter Summary ---
:1955 Author Organization [facility] [place] [facility] Address [address], [place] [address] Care Team Providers Name Role Phone Steffanie Hitchcock MD Primary Care Provider [phone] Encounter Details Date Type Department Care Team Description 02/25/2018 Notes/Orders [facility] 3800 Krystin Richards MD Rheumatology [address] [facility] [address] [place] [address] [place] [address] [phone] Social History Tobacco Use Types Packs/Day Years Used Date Smoking Tobacco: Never Assessed Sex Assigned at Date Recorded Not on file documented as of this encounter Plan of Treatment Not on filedocumented as of this encounter Visit Diagnoses Not on filedocumented in this encounter Care Teams Superintendent [employer] Relationship Specialty Start Date End Date Steffanie Hitchcock MD PCP - General Family Practice 02/10/181999 [place] [address] documented as of this encounter
--- OUTSIDE RECORDS SUMMARY | 2021-10-26 13:44 | XMS_ITS | Encounter Summary ---
:1955 Author Organization [employer] Address [address] [place] [address] Care Team Providers Name Role Phone Steffanie Hitchcock MD Primary Care Provider [phone] Reason for Referral Procedure/Equipment (Routine) - Incomplete Specialty Diagnoses / Procedures Referred By Contact Refer red To Contact Diagnoses Chronic bilateral low back pain without sciatica Crohn's disease with complication, unspecified gastrointestinal tract location (HRC) Cornelia Richards MD Procedures MR Pelvis W/WO IV Cont [address] [place], [place] [address] Referral ID Status Reason Start Date Expiration Date Visits V isits Requested Authorized [id number] Incomplete 02/25/2018 08/24/2018 1 1 UNICATION ANALYST Reason for Visit Reason Comments CONSULT Encounter Details Date Type Department Care Team Description 02/24/2018 Initial Consult [place] [address] [place], Positi ve RAIMUNDO (antinuclear antibody) (Primary Dx); Rheumatology Cornelia Guadalupe MD Pleurisy; [address] [facility] [place] Osteoporo sis without current pathological fracture, unspecified osteoporosis type; [address] Chronic bilateral low back pain without sciatica; [facility], Crohn's disease with complication, unspecified gastrointestinal tract location (HRC); [place] [address] [place] [address] Chest wall pain [phone] Social History Tobacco Use Types Packs/Day Years Used Date Smoking Tobacco: Never Assessed Sex Assigned at Date Recorded Not on file documented as of this encounter Last Filed Vital Signs Vital Sign Reading Time Taken Comments Blood Pressure 126/79 02/24/2018 1:15 PM COMMUNICATION ANALYST Pulse 90 02/24/2018 1:15 PM COMMUNICATION ANALYST Temperature - - Respiratory Rate - - Oxygen Saturation - - Inhaled Oxygen Concentration - - Weight 53.1 kg (117 lb) 02/24/2018 1:15 PM COMMUNICATION ANALYST Height 153.7 cm (5' 0.5) 02/24/2018 1:15 PM COMMUNICATION ANALYST Body Mass Index 22.47 02/24/2018 1:15 PM COMMUNICATION ANALYST documented in this encounter Patient Instructions Patient InstructionsCornelia Richards MD - 02/24/2018 1:15 PM CST Thank you for enrolling in [employer]. Please follow the instructions below to securely access your online medical record. [employer] allows you to send messages to your doctor, view your test results, renewyour prescriptions, schedule appointments, and more. How Do I Sign Up? 1. In your Internet browser, go to [email or web address] 2. Click on the Enter activation code link under the New User? section. You will see the Activate your account! page. 3. Enter your activation code exactly as it appears below. You will not need to use this code after you???ve completed the sign-up process. If you do not sign up before the expiration date, you must request a new code. Activation Code: [email or web address] Expires: 03/26/2018 2:33 PM 4. Enter your last name and date of (mm/dd/yyyy) as indicated, then click Continue. You will be taken to the Let's set up your account page. 5. Create a username. This will be your [employer] login ID and cannot be changed, so think of one thatis secure and easy to remember. 6. Create a password. You can change your password at any time. 7. Enter your e-mail address. You will receive e-mail notification when new information is availablein [employer]. 8. Select your Security Questions and enter your answers. These can be used at a later time if you forget your password. 9. Check the box to accept the terms and conditions. Click Create your account. You can now view your medical record. Additional Information If you have questions, you can call [phone] to talk to our MyChart staff. Remember, [...] within 7-10 days, please call Jessica at [phone] for a status update. RAIMUNDO = Antinuclear [...] doctor all the drugs you are taking--prescription, oymo-xdh-sprbzmf and street. Other conditions, such as cancer, can cause a positive RAIMUNDO. Thus a positive RAIMUNDO test does notautomatically translate into a diagnosis of lupus or any autoimmune or connective tissue disease. UNICATION ANALYST documented in this encounter Progress Notes Cornelia Richards MD - 02/24/2018 1:15 PM CST RHEUMATOLOGY NEW OUTPATIENT CONSULT NOTE Encounter Date: 02/24/2018 This note was generated with voice activated customs inspector software and may contain typographical and word substitution errors. Consultation was requested by: Steffanie Hitchcock MD [address] [place] [address] CC: lupus, Raynaud's History of present illness: [...] she had been following with endocrinology through [facility] (Dr. Moraes) for her thyroid, but reportedly did have a cosyntropin stim test to insure it was safefor her to discontinue her long-standing prednisone. Reportedly results were normal. She thinks thather Crohn's disease is actually under good control now off all therapy. She will be establishing care with a new peripheral equipment operator within the month. States she is having only about one bowel movement per day of normal consistency, no watery loose stool, hematochezia, or abdominal pain. Weight is stable. She is particularly seeing me today because she has a sister who has known Sjogren's disease who volunteers for the [employer] in [place] and works with a nurse named Jessica [...] actually evaluated for this years ago through [facility] in [place] with a formal full neuropsych evaluation. She [...] was evaluated by Dr. Jeffrey Brasher of [facility] in [place] just last week, who reportedly plans on [...] to carbon monoxide in a home in [place] from 2011 2 2014, she is wondering [...] Juarez in the Lupus clinic at the [facility] in 2012. Serologies were repeated at the [...] Per endocrinology note from Dr. Moraes at [facility] on 06/2017, she noted a DEXA scan [...] unknown period of time while living in [place], last delivered in 2011. There was report that she was told to stop this given jaw concerns from a dentist. Patient then went on to receive one-time dose of IV Reclast in 01/2014 through [facility], unclear why was not repeated. Was mention [...] notable for: Vitamin B-12. Synthroid. Requip. Venlafaxine. Ycih-kap-pwmohpl products including adrenal support. ?? Adverse drug reactions/Allergies: morphine and PCN causes rash. Sulfa causes fatigue. ?? FH: Positive for a twin sister with Sjogren syndrome. A different sister with multiple sclerosis. A father with rheumatoid arthritis. A brother with asthma. ?? SH: nonsmoker. No alcohol use. Previously lived in [facility], then [place], now currently living in [place]. Does not currently work, states she has never really had a career. 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 She is . Nochildren. No [...] of chest wall, upper back/neck. Labs: Through [facility] on 02/07/18: Ferritin low at [...] sacroiliitis. I will have my nurses call [facility] to try to see if [...] MD Rheumatology [address] CC: Steffanie Sánchez [facility] UNICATION ANALYST documented in this encounter Plan of Treatment Not on filedocumented as of this encounter Results (ABNORMAL) ELP, Urine Protein Random (02/24/2018 3:19 PM COMMUNICATION ANALYST) P athologist Signature T. Protein,Ur 22 (H) 0 - 14 PN SOFT Random mg/dl Comment: Performed at [facility], [address] [place] [address] ??[id number] Albumin, Urine 100.0 % PN SOFT Alpha [...] out by SEE BELOW PN SOFT Comment: [facility] [place] Laboratory Performed at [facility], [address] [place] [address] CLIA Number [id number] Specimen Anatomical Collection Method Collection Time Receive d Time (Source) Location / / Volume Laterality Urine specimen 02/24/2018 3:19 PM 018 8:06 (specimen) COMMUNICATION ANALYST PM COMMUNICATION ANALYST Cornelia Richards MD LAB_1 Performing Organization Address City/State/ZIP Code Phon e Number PN SOFT [address] [place] [address] (ABNORMAL) Urinalysis Routine(Micro If Pos) (02/24/2018 3:19 PM COMMUNICATION ANALYST) Patholo gist Method Time Signature Urine Type [...] U Specific >=1.030 1.005 - PN SOFT [place] 1.030 Urobilinogen Negative Negative PN SOFT Urine Eu/dL Specimen Anatomical Collection Method Collection Time Receive d Time (Source) Location / / Volume Laterality Urine 02/24/2018 3:19 PM 8 3:19 COMMUNICATION ANALYST PM COMMUNICATION ANALYST Narrative PN SOFT - 02/24/2018 3:22 PM COMMUNICATION ANALYST Performed at [facility], [address] [place] [address] CLIA number [id number] Cornelia Richards MD LAB_1 Performing Organization Address City/State/ZIP Code Phon e Number PN SOFT [address] [place] [address] (ABNORMAL) ELP, [place], Serum (02/24/2018 3:16 PM COMMUNICATION ANALYST) P athologist Signature Total Protein 6.6 6.4 - 8.3 PN SOFT g/dl Comment: Performed at [facility], [address] [place] [address] ??[id number] Albumin 4.3 3.4 - 4.8 g/dl PN [...] out by SEE BELOW PN SOFT Comment: [facility] [place] Laboratory Performed at [facility], [address] [place] [address] ??[address] CLIA Number [id number] Specimen Anatomical Collection Method Collection Time Receive d Time (Source) Location / / Volume Laterality 02/24/2018 3:16 PM 8 5:29 COMMUNICATION ANALYST PM COMMUNICATION ANALYST Cornelia Richards MD LAB_1 Performing Organization Address City/[facility]/ZIP Code Phon e Number PN SOFT [address] [place] [address] CRYGB - Cryoglobulin, Qualitative (02/24/2018 3:16 PM COMMUNICATION ANALYST) [facility] gist Method Time Signature Cryoglobulin Qual NEG NEG PN SOFT 72Hour 72Hour Comment: Test developed and characteristics deter mined by [email or web address]. See Compliance Statement B : [employer] Performed by [email or web address], [address] [place] [address] www.[employer], Trace Islas MD - Lab . Director Specimen Anatomical Collection Method Collection Time Receive d Time (Source) Location / / Volume Laterality 02/24/2018 3:16 PM 8 7:59 COMMUNICATION ANALYST PM COMMUNICATION ANALYST Narrative PN SOFT - 03/01/2018 11:34 PM COMMUNICATION ANALYST Performed at [email or web address] [address] [place] [address] CLIA number [id number] Cornelia Richards MD LAB_1 Performing Organization Address City/[facility]/ZIP Code Phon e Number PN SOFT [address] [place] [address] CRP - C Reactive Protein (02/24/2018 3:16 PM COMMUNICATION ANALYST) athologist Signature CRP <0.5 0.0 - 0.5 PN SOFT mg/dL Specimen Anatomical Collection Method Collection Time Receive d Time (Source) Location / / Volume Laterality 02/24/2018 3:16 PM 8 3:16 COMMUNICATION ANALYST PM COMMUNICATION ANALYST Narrative PN SOFT - 02/24/2018 4:06 PM COMMUNICATION ANALYST Performed at [facility], [address] [place] [address] CLIA number [id number] Cornelia Richards MD LAB_1 Performing Organization Address City/[facility]/ZIP Code Phon e Number PN SOFT [address] [place] [address] ESR - Sedimentation Rate (02/24/2018 3:16 PM COMMUNICATION ANALYST) Analysis Performed At Patho logist Time Signature Sedimentation Rate 4 0 - 20 PN SOFT mm/hr Specimen Anatomical Collection Method Collection Time Receive d Time (Source) Location / / Volume Laterality 02/24/2018 3:16 PM 8 3:16 COMMUNICATION ANALYST PM COMMUNICATION ANALYST Narrative PN SOFT - 02/24/2018 4:06 PM COMMUNICATION ANALYST Performed at [facility], [address] [place] [address] CLIA number [id number] Cornelia Richards MD LAB_1 Performing Organization Address City/State/ZIP Code Phon e Number PN SOFT [address] [place] [address] [phone] Centrome[employer] YRN IgG (02/24/2018 3:16 PM COMMUNICATION ANALYST) P athologist Signature Centromere 0 0 - [...] antibodies associat ed with SSc, including Scl-70, U3-BORING AND FILLING MACHINE OPERATOR, PM/Scl, or Th/ To. Performed by [email or web address], [address] [place], [place] [address], [place] [address] www.[employer], Trace Islas MD - Lab . Director Specimen Anatomical Collection Method Collection Time Receive d Time (Source) Location / / Volume Laterality 02/24/2018 3:16 PM 8 5:31 COMMUNICATION ANALYST PM COMMUNICATION ANALYST Narrative PN SOFT - 02/27/2018 5:53 PM COMMUNICATION ANALYST Performed at [email or web address] [address] [facility] [place] [address] CLIA number [id number] Cornelia Richards MD LAB_1 Performing Organization Address City/State/ZIP Code Phon e Number PN SOFT [address] [place] [address] [phone] Scleroderma (Scl-70) (DHEERAJ) Antibody, IgG (02/24/2018 3:16 PM COMMUNICATION ANALYST) athologist Signature Scleroderma 0 0 - 40 [...] for centromere, RNA polymerase I II and U3-BORING AND FILLING MACHINE OPERATOR, PM/Scl, or Th/To antibodies. Performed by [email or web address], [address] [place] [address] www.[employer], Trace Islas MD - Lab . Director Specimen Anatomical Collection Method Collection Time Receive d Time (Source) Location / / Volume Laterality 02/24/2018 3:16 PM 8 5:31 COMMUNICATION ANALYST PM COMMUNICATION ANALYST Narrative PN SOFT - 02/26/2018 12:37 PM COMMUNICATION ANALYST Performed at [email or web address] [address] [place] [address] CLIA number [id number] Cornelia Richards MD LAB_1 Performing Organization Address [facility] e Number PN SOFT [address] [place] [address] C4 - C4 Complement (02/24/2018 3:16 PM COMMUNICATION ANALYST) athologist Signature C4 Complement 36 15 - 57 PN SOFT mg/dL Specimen Anatomical Collection Method Collection Time Receive d Time (Source) Location / / Volume Laterality 02/24/2018 3:16 PM 8 5:29 COMMUNICATION ANALYST PM COMMUNICATION ANALYST Narrative PN SOFT - 02/24/2018 5:49 PM COMMUNICATION ANALYST Performed at [address] [address] CLIA number [id number] Cornelia Richards MD LAB_1 Performing Organization Address [facility] e Number PN SOFT [address] [place] [address] C3 - C3 Complement (02/24/2018 3:16 PM COMMUNICATION ANALYST) athologist Signature C3 Complement 130 83 - 193 PN SOFT mg/dL Specimen Anatomical Collection Method Collection Time Receive d Time (Source) Location / / Volume Laterality 02/24/2018 3:16 PM 8 5:29 COMMUNICATION ANALYST PM COMMUNICATION ANALYST Narrative PN SOFT - 02/24/2018 5:49 PM COMMUNICATION ANALYST Performed at [address] [place] [address] CLIA number [id number] Cornelia Richards MD LAB_1 Performing Organization Address [facility] Phon e Number PN SOFT [address] [place] [address] DNA - Anti-dsDNA Antibody (02/24/2018 3:16 PM COMMUNICATION ANALYST) athologist Signature Anti-DNA Ab see below Negative PN SOFT Comment: <1:10 Negative Specimen Anatomical Collection Method Collection Time Receive d Time (Source) Location / / Volume Laterality 02/24/2018 3:16 PM 8 5:33 COMMUNICATION ANALYST PM COMMUNICATION ANALYST Narrative PN SOFT - 02/25/2018 2:34 PM COMMUNICATION ANALYST Performed at [address] [address] CLIA number [id number] Cornelia Richards MD LAB_1 Performing Organization Address [facility] Phon e Number PN SOFT [address] [place] [address] CK, Total (02/24/2018 3:16 PM COMMUNICATION ANALYST) athologist [facility] Creatine Kinase 141 29 - 168 PN SOFT U/L Specimen Anatomical Collection Method Collection Time Receive d Time (Source) Location / / Volume Laterality 02/24/2018 3:16 PM 8 3:16 COMMUNICATION ANALYST PM COMMUNICATION ANALYST Narrative PN SOFT - 02/24/2018 4:06 PM COMMUNICATION ANALYST Performed at [facility], [address] [place] [address] CLIA number [id number] Cornelia Richards MD LAB_1 Performing Organization Address [facility] Phon e Number PN SOFT [address] [place] [address] Extractable Nuclear Antigen Antibodies (02/24/2018 3:16 PM COMMUNICATION ANALYST) athologist Signature DHEERAJ To BORING AND FILLING MACHINE OPERATOR 0 0 - 40 PN SOFT Antibody AU/mL Comment: INTERPRETIVE INFORMATION: Ribonucleic Pr otein (DHEERAJ)Antibody, IgG ??29 AU/mL or Less ............. Negati ve ??30 - 40 AU/mL ................ Equivo jenifer ??41 AU/mL or Greater .......... Positi ve BORING AND FILLING MACHINE OPERATOR antibody is seen in 95-100 percent o f mixed connective tissue disease and is considered specifi c for this syndrome if other antibodies are negative; BORING AND FILLING MACHINE OPERATOR is also present in 20-30 percent of systemic lupus erythema tosus and 15-25 percent of progressive systemic sclerosi s. BORING AND FILLING MACHINE OPERATOR antigens also contain epitopes that are immunolog ically identical to free Hendrickson antigens, therefore, the Leonel h antibody response must be considered when interpreting BORING AND FILLING MACHINE OPERATOR results. Performed by [email or web address], [address] [place] [address] www.[employer], Trace Islas MD - Lab . Director [...] Volume Laterality 02/24/2018 3:16 PM 8 5:31 COMMUNICATION ANALYST PM COMMUNICATION ANALYST Narrative PN SOFT - 02/26/2018 12:37 PM COMMUNICATION ANALYST Performed at [email or web address] [address] [place] [address] CLIA number [id number] Cornelia Richards MD LAB_1 Performing Organization Address City/State/[facility] Code Phon e Number PN SOFT [address] [place] [address] documented in this encounter Visit Diagnoses Diagnosis [...] (HRC) documented in this encounter Care Teams Assistant Manager/Embalmer Relationship Specialty Start Date End Date Steffanie Hitchcock MD PCP - General Family Practice 02/10/[address] [place] [address] documented as of this encounter
--- OUTSIDE RECORDS SUMMARY | 2021-10-26 13:44 | XMS_ITS | Encounter Summary ---
:1955 Author Organization [employer] Address [address] [place] [address] Care Team Providers Name Role Phone Steffanie Hitchcock MD Primary Care Provider [phone] Encounter Details Date Type Department Care Team Description 02/24/2018 Lab Visit [facility] 3850 Positive RAIMUNDO (antinuclear antibody); Laboratory Pleurisy; [address] Osteoporosis without current pathological fracture, [place] [address] Social History Tobacco Use Types Packs/Day Years Used Date Smoking Tobacco: Never Assessed Sex Assigned at Date Recorded Not on file documented as of this encounter Plan of Treatment Not on filedocumented as of this encounter Procedures Procedure Name Priority Date/Time Associated Diagnosis Comme nts URINALYSIS Routine 02/24/2018 3:19 PM Positive RAIMUNDO Results f or this ROUTINE(MICRO IF BACK TENDER INSULATION BOARD (antinuclear procedure a re in POS) antibody) the results section. ELP, UR PROT RANDOM Routine 02/24/2018 3:19 PM Positive RAIMUNDO Re sults for this BACK TENDER INSULATION BOARD (antinuclear procedure are i n antibody) the results Osteoporosis without section . current pathological fracture, unspecified osteoporosis type EXTRACTABLE NUCLEAR Routine 02/24/2018 3:16 PM Positive RAIMUNDO Re sults for this ANTIGEN ANTIBODIES BACK TENDER INSULATION BOARD (antinuclear procedure are in antibody) the results Pleurisy section. CRYOGLOBULIN, Routine 02/24/2018 3:16 PM Positive RAIMUNDO Results for this QUALITATIVE (12 HOUR BACK TENDER INSULATION BOARD (antinuclear procedu re are in FAST REQUIRED) antibody) the results Osteoporosis without section . current pathological fracture, unspecified osteoporosis type CENTROMERE YRN IGG Routine 02/24/2018 3:16 PM Positive RAIMUNDO Res ults for this BACK TENDER INSULATION BOARD (antinuclear procedure are i n antibody) the results Pleurisy section. SCLERODERMA (SCL-70) Routine 02/24/2018 3:16 PM Positive RAIMUNDO R esults for this (DHEERAJ) ANTIBODY, IGG BACK TENDER INSULATION BOARD (antinuclear procedur e are in antibody) the results Pleurisy section. ELP, CASCADE, SERUM Routine 02/24/2018 3:16 PM Positive RAIMUNDO Re sults for this BACK TENDER INSULATION BOARD (antinuclear procedure are i n antibody) the results Osteoporosis without section . current pathological fracture, unspecified osteoporosis type DNA DOUBLE STRANDED Routine 02/24/2018 3:16 PM Positive RAIMUNDO Re sults for this ANTIBODY BACK TENDER INSULATION BOARD (antinuclear procedure are i n antibody) the results Pleurisy section. C4 COMPLEMENT Routine 02/24/2018 3:16 PM Positive RAIMUNDO Results for this BACK TENDER INSULATION BOARD (antinuclear procedure are i n antibody) the results Pleurisy section. C3 COMPLEMENT Routine 02/24/2018 3:16 PM Positive RAIMUNDO Results for this BACK TENDER INSULATION BOARD (antinuclear procedure are i n antibody) the results Pleurisy section. C-REACTIVE PROTEIN Routine 02/24/2018 3:16 PM Positive RAIMUNDO Res ults for this BACK TENDER INSULATION BOARD (antinuclear procedure are i n antibody) the results Pleurisy section. CK, TOTAL Routine 02/24/2018 3:16 PM Positive RAIMUNDO Results f or this BACK TENDER INSULATION BOARD (antinuclear procedure are i n antibody) the results Pleurisy section. ESR Routine 02/24/2018 3:16 PM Positive RAIMUNDO Results f or this BACK TENDER INSULATION BOARD (antinuclear procedure are i n antibody) the results Pleurisy section. documented in this encounter Results (ABNORMAL) ELP, Urine Protein Random (02/24/2018 3:19 PM BACK TENDER INSULATION BOARD) P athologist Signature T. Protein,Ur 22 (H) 0 - 14 PN SOFT Random mg/dl Comment: Performed at [facility], [address] [place] [address] ??[id number] Albumin, Urine 100.0 % PN SOFT Alpha [...] out by SEE BELOW PN SOFT Comment: [facility] Performed at [facility], [address] [place] [address] ??[address] CLIA Number [id number] Specimen Anatomical Collection Method Collection Time Receive d Time (Source) Location / / Volume Laterality Urine specimen 02/24/2018 3:19 PM 018 8:06 (specimen) BACK TENDER INSULATION BOARD PM BACK TENDER INSULATION BOARD Cornelia Richards MD LAB_1 Performing Organization Address [facility] Phon e Number PN SOFT [address] [place] [address] (ABNORMAL) Urinalysis Routine(Micro If Pos) (02/24/2018 3:19 PM BACK TENDER INSULATION BOARD) Patholo gist Method Time Signature Urine Type [...] U Specific >=1.030 1.005 - PN SOFT [place] 1.030 Urobilinogen Negative Negative PN SOFT Urine Eu/dL Specimen Anatomical Collection Method Collection Time Receive d Time (Source) Location / / Volume Laterality Urine 02/24/2018 3:19 PM 8 3:19 BACK TENDER INSULATION BOARD PM BACK TENDER INSULATION BOARD Narrative PN SOFT - 02/24/2018 3:22 PM BACK TENDER INSULATION BOARD Performed at [facility], [address] [place] [address] CLIA number [id number] Cornelia Richards MD LAB_1 Performing Organization Address [facility] Phon e Number PN SOFT [address] [place] [address] (ABNORMAL) ELP, Elbert, Serum (02/24/2018 3:16 PM BACK TENDER INSULATION BOARD) athologist Signature Total Protein 6.6 6.4 - 8.3 PN SOFT g/dl Comment: Performed at [facility], [address] [place] [address] ??[address] Albumin 4.3 3.4 - 4.8 g/dl PN [...] out by SEE BELOW PN SOFT Comment: [facility] Performed at [facility], [address] [place] [address] ??[address] CLIA Number [id number] Specimen Anatomical Collection Method Collection Time Receive d Time (Source) Location / / Volume Laterality 02/24/2018 3:16 PM 8 5:29 BACK TENDER INSULATION BOARD PM BACK TENDER INSULATION BOARD Cornelia Richards MD LAB_1 Performing Organization Address City/State/ZIP Code Phon e Number PN SOFT [address] [place] [address] [phone] CRYGB - Cryoglobulin, Qualitative (02/24/2018 3:16 PM BACK TENDER INSULATION BOARD) [facility] gist Method Time Signature Cryoglobulin Qual NEG NEG PN SOFT 72Hour 72Hour Comment: Test developed and characteristics deter mined by [facility]. See Compliance Statement B : [email or web address] Performed by [facility], [address] [place] [address] [email or web address], Trace Islas MD - Lab . Director Specimen Anatomical Collection Method Collection Time Receive d Time (Source) Location / / Volume Laterality 02/24/2018 3:16 PM 8 7:59 BACK TENDER INSULATION BOARD PM BACK TENDER INSULATION BOARD Narrative PN SOFT - 03/01/2018 11:34 PM BACK TENDER INSULATION BOARD Performed at [facility] [address] CLIA number [id number] Cornelia Richards MD LAB_1 Performing Organization Address [facility]/ZIP Code Phon e Number PN SOFT [address] [place] [address] CRP - C Reactive Protein (02/24/2018 3:16 PM BACK TENDER INSULATION BOARD) P athologist Signature CRP <0.5 0.0 - 0.5 PN SOFT mg/dL Specimen Anatomical Collection Method Collection Time Receive d Time (Source) Location / / Volume Laterality 02/24/2018 3:16 PM 8 3:16 BACK TENDER INSULATION BOARD PM BACK TENDER INSULATION BOARD Narrative PN SOFT - 02/24/2018 4:06 PM BACK TENDER INSULATION BOARD Performed at [facility], [address] [place] [address] CLIA number [id number] Cornelia Richards MD LAB_1 Performing Organization Address [facility] Phon e Number PN SOFT [address] [place] [address] ESR - Sedimentation Rate (02/24/2018 3:16 PM BACK TENDER INSULATION BOARD) Analysis Performed At [facility] Signature Sedimentation Rate 4 0 - 20 PN SOFT mm/hr Specimen Anatomical Collection Method Collection Time Receive d Time (Source) Location / / Volume Laterality 02/24/2018 3:16 PM 8 3:16 BACK TENDER INSULATION BOARD PM BACK TENDER INSULATION BOARD Narrative PN SOFT - 02/24/2018 4:06 PM BACK TENDER INSULATION BOARD Performed at [facility], [address] [place] [address] CLIA number [id number] Cornelia Richards MD LAB_1 Performing Organization Address [facility] Code Phon e Number PN SOFT [address] [place] [address] Centromere YRN IgG (02/24/2018 3:16 PM BACK TENDER INSULATION BOARD) athologist Signature Centromere 0 0 - 40 [...] antibodies associat ed with SSc, including Scl-70, U3-COMBINATION WELDER APPRENTICE, PM/Scl, or Th/ To. Performed by [facility], [address] [place] [address] [email or web address], Trace Islas MD - Lab . Director Specimen Anatomical Collection Method Collection Time Receive d Time (Source) Location / / Volume Laterality 02/24/2018 3:16 PM 8 5:31 BACK TENDER INSULATION BOARD PM BACK TENDER INSULATION BOARD Narrative PN SOFT - 02/27/2018 5:53 PM BACK TENDER INSULATION BOARD Performed at [facility] [address] [place] [address] CLIA number [id number] Cornelia Richards MD LAB_1 Performing Organization Address City/State/ZIP Code Phon e Number PN SOFT [address] [place] [address] [phone] Scleroderma (Scl-70) (DHEERAJ) Antibody, IgG (02/24/2018 3:16 PM BACK TENDER INSULATION BOARD) athologist Signature Scleroderma 0 0 - 40 [...] for centromere, RNA polymerase I II and U3-COMBINATION WELDER APPRENTICE, PM/Scl, or Th/To antibodies. Performed by [facility], [address] [place] [address] [email or web address], Trace Islas MD - Lab . Director Specimen Anatomical Collection Method Collection Time Receive d Time (Source) Location / / Volume Laterality 02/24/2018 3:16 PM 8 5:31 BACK TENDER INSULATION BOARD PM BACK TENDER INSULATION BOARD Narrative PN SOFT - 02/26/2018 12:37 PM BACK TENDER INSULATION BOARD Performed at [facility] [address] [place] [address] CLIA number [id number] Cornelia Richards MD LAB_1 Performing Organization Address City/State/ZIP Code Phon e Number PN SOFT [address] [place] [address] C4 - C4 Complement (02/24/2018 3:16 PM BACK TENDER INSULATION BOARD) athologist Signature C4 Complement 36 15 - 57 PN SOFT mg/dL Specimen Anatomical Collection Method Collection Time Receive d Time (Source) Location / / Volume Laterality 02/24/2018 3:16 PM 8 5:29 BACK TENDER INSULATION BOARD PM BACK TENDER INSULATION BOARD Narrative PN SOFT - 02/24/2018 5:49 PM BACK TENDER INSULATION [place] [address] CLIA number [id number] Cornelia Richards MD LAB_1 Performing Organization Address [facility] e Number PN SOFT [address] [place] [address] C3 - C3 Complement (02/24/2018 3:16 PM BACK TENDER INSULATION BOARD) athologist Signature C3 Complement 130 83 - 193 PN SOFT mg/dL Specimen Anatomical Collection Method Collection Time Receive d Time (Source) Location / / Volume Laterality 02/24/2018 3:16 PM 8 5:29 BACK TENDER INSULATION BOARD PM BACK TENDER INSULATION BOARD Narrative PN SOFT - 02/24/2018 5:49 PM BACK TENDER INSULATION BOARD Performed at [address] [address] CLIA number [id number] Cornelia Richards MD LAB_1 Performing Organization Address [facility] e Number PN SOFT [address] [place] [address] DNA - Anti-dsDNA Antibody (02/24/2018 3:16 PM BACK TENDER INSULATION BOARD) athologist Signature Anti-DNA Ab see below Negative PN SOFT Comment: <1:10 Negative Specimen Anatomical Collection Method Collection Time Receive d Time (Source) Location / / Volume Laterality 02/24/2018 3:16 PM 8 5:33 BACK TENDER INSULATION BOARD PM BACK TENDER INSULATION BOARD Narrative PN SOFT - 02/25/2018 2:34 PM BACK TENDER INSULATION BOARD Performed at [address] [address] CLIA number [id number] Cornelia Richards MD LAB_1 Performing Organization Address [facility]/ZIP Code Phon e Number PN SOFT [address] [place] [address] CK, Total (02/24/2018 3:16 PM BACK TENDER INSULATION BOARD) athologist Signature Creatine Kinase 141 29 - 168 PN SOFT U/L Specimen Anatomical Collection Method Collection Time Receive d Time (Source) Location / / Volume Laterality 02/24/2018 3:16 PM 8 3:16 BACK TENDER INSULATION BOARD PM BACK TENDER INSULATION BOARD Narrative PN SOFT - 02/24/2018 4:06 PM BACK TENDER INSULATION BOARD Performed at [facility], [facility] [place] [address] CLIA number [id number] Cornelia Richards MD LAB_1 Performing Organization Address [facility] Phon e Number PN SOFT [address] [place] [address] Extractable Nuclear Antigen Antibodies (02/24/2018 3:16 PM BACK TENDER INSULATION BOARD) athologist Signature DHEERAJ To COMBINATION WELDER APPRENTICE 0 0 - 40 PN SOFT Antibody AU/mL Comment: INTERPRETIVE INFORMATION: Ribonucleic Pr otein (DHEERAJ)Antibody, IgG ??29 AU/mL or Less ............. Negati ve ??30 - 40 AU/mL ................ Equivo jenifer ??41 AU/mL or Greater .......... Positi ve COMBINATION WELDER APPRENTICE antibody is seen in 95-100 percent o f mixed connective tissue disease and is considered specifi c for this syndrome if other antibodies are negative; COMBINATION WELDER APPRENTICE is also present in 20-30 percent of systemic lupus erythema tosus and 15-25 percent of progressive systemic sclerosi s. COMBINATION WELDER APPRENTICE antigens also contain epitopes that are immunolog ically identical to free Hendrickson antigens, therefore, the Leonel h antibody response must be considered when interpreting COMBINATION WELDER APPRENTICE results. Performed by [facility], [address] [place] [address] [email or web address], Trace Islas MD - Lab . Director [...] Volume Laterality 02/24/2018 3:16 PM 8 5:31 BACK TENDER INSULATION BOARD PM BACK TENDER INSULATION BOARD Narrative PN SOFT - 02/26/2018 12:37 PM BACK TENDER INSULATION BOARD Performed at [facility] [address] [place] [address] CLIA number [id number] Cornelia Richards MD LAB_1 Performing Organization Address City/State/ZIP Code Phon e Number SOFT [address] [place] [address] [phone] documented in this encounter Visit Diagnoses Diagnosis Positive RAIMUNDO (antinuclear antibody) Other and unspecified nonspecific immuno logical findings Pleurisy Pleurisy without mention of effusion or current tuberculosis Osteoporosis without current pathologica l fracture, unspecified osteoporosis type ([facility]) documented in this encounter Care Teams Ethnology Teacher Relationship Specialty Start Date End Date Steffanie Hitchcock MD PCP - General Family Practice 02/10/181999 [place] [address] documented as of this encounter
--- OUTSIDE RECORDS SUMMARY | 2021-10-26 13:44 | XMS_ITS | Encounter Summary ---
:1955 Author Organization [employer] Address [address] [place] [address] Care Team Providers Name Role Phone Steffanie Hitchcock MD Primary Care Provider [phone] Encounter Details Date Type Department Care Team Description 03/10/2018 Notes/Orders [facility] 3800 Krystin Richards MD Rheumatology [address] [facility] [address] [address] [place] [address] [phone] Social History Tobacco Use Types Packs/Day Years Used Date Smoking Tobacco: Never Assessed Sex Assigned at Date Recorded Not on file documented as of this encounter Progress Notes Cornelia Richards MD - 03/10/2018 8:13 AM CST Received progress note from [facility] regarding MRI pelvis. She was already set [...] scan in full report. Cornelia Richards MD ROLLER OPERATOR documented in this encounter Plan of Treatment Not on filedocumented as of this encounter Visit Diagnoses Not on filedocumented in this encounter Care Teams Insulation Board Head Saw Operator Relationship Specialty Start Date End Date Steffanie Hitchcock MD PCP - General Family Practice 02/10/181999 [place] [address] documented as of this encounter
--- OUTSIDE RECORDS SUMMARY | 2021-10-26 13:44 | XMS_ITS | Encounter Summary ---
:1955 Author Organization [employer] Address [address] [place] [address] Care Team Providers Name Role Phone Unassigned, Provider Primary Care Provider Unavailable Reason for Visit Reason Comments Dental Conversion Legacy EDR to [place] convers ion Encounter Details Date Type Department Care Team Description 08/16/2016 Dental Conversion [facility] Aly Wall , [facility] DDS [address] [facility]. [facility] [address]. [address] [place], [place] [address] [place] [address] [place] [address] (Wo rk) Social History Tobacco Use Types Packs/Day Years Used Date Smoking Tobacco: Never Assessed Sex Assigned at Date Recorded Not on file documented as of this encounter Discharge Summaries Interface, In Edr Dental Conversion - 12/01/2016 12:00 AM CDT EDR Pt Notes: no COVER MARKER packet [id number] est signed on 02/21/07 before- est signed after -pte Interface, In Edr Dental Conversion - 09/17/2011 12:00 AM CDT EDR Clerical Popup Note, entered 09/17/2011: PT NEEDS TO SIGN TREATMENT ESTIMATE AT HAZMAT TECHNICIAN documented in this encounter Miscellaneous Notes Miscellaneous - Interface, In Edr Dental Conversion - 02/27/2007 12:00 AM RECONCILIATION ANALYST 02/27/2007: In Person Contact: Pt checked in I asked her was she going to pay anything on her balance today she said yes, then she asked how much she owes for today. I told her 143.00, she said she will pay it all then. I collected 232.00. will give detailed reciept after todays visit- 1246pm NCILIATION ANALYST Miscellaneous - Interface, In Edr Dental Conversion - 02/21/2007 12:00 AM RECONCILIATION ANALYST 02/21/2007: In Person Contact: Pt checking out she is was a field and it was not charged out yet and she said she had to go. gave her a walkout and she will pay it all on her appt on 02/27/07- 1216pm NCILIATION ANALYST Miscellaneous - Interface, In Edr Dental Conversion - 02/20/2007 12:00 AM RECONCILIATION ANALYST 02/20/2007: Incoming Phone Call: pt calling to [...] her visit showing her the charges. 330pm NCILIATION ANALYST documented in this encounter Plan of Treatment Not on filedocumented as of this encounter Visit Diagnoses Not on filedocumented in this encounter Care Teams Locksmith Apprentice Relationship Specialty Start Date End Date Unassigned, Provider PCP - General 02/13/01 02/09/[address] [place] [address] documented as of this encounter
--- OUTSIDE RECORDS SUMMARY | 2021-10-26 13:44 | XMS_ITS | Encounter Summary ---
:1955 Author Organization [employer] Address [address] [place] [address] Care Team Providers Name Role Phone Steffanie Hitchcock MD Primary Care Provider [phone] Reason for Visit Reason Comments UPDATE Encounter Details Date Type Department Care Team Description 02/25/2018 Telephone [facility] 3800 Krystin Richards MD UPDATE Rheumatology [address] [place] [address] [place] [address] [phone] Social History Tobacco Use Types Packs/Day Years Used Date Smoking Tobacco: Never Assessed Sex Assigned at Date Recorded Not on file documented as of this encounter Nursing Notes Mary Anne Bunn MA - 02/25/2018 2:00 PM CST Yes, patient will call back after she has established care with a new dentist. RICULTURE INSTRUCTOR Cornelia Richards MD - 02/25/2018 1:17 PM CST Excellent, thank you. Did you mean to say that Maria E will call us back/update us once she has established care with a dentist in [place] and after they have given her the okay to proceed with Reclast infusion? Thank you Cornelia Richards MD RICULTURE INSTRUCTOR Mary Anne Bunn MA - 02/25/2018 9:46 [...] established care with a dentist. I called [place] [facility] at and spoke with Maria Victoria in MRI and they are able to add on the pelvis and the MRI order has been faxedATTN: Maria Victoria at . I also called Maria E back and have asked her to verify with the windshield repair technician when she arrives at her appointment that they received the faxed MRI order for the pelvis and shestates that she will do this. RICULTURE INSTRUCTOR Cornelia Richards MD - 02/25/2018 9:21 AM CST Please let patient know the following. I had more time after her visit yesterday to review documentation through endocrinology at [facility]. Reportedly her last Reclast was in 2013. There was one note from the front desk specialist that mentioned a dentist had told the [...] the MRI of the lumbar spine in [place] this Saturday. (Refer to my staff message to nursing pool) Thanks Cornelia Richards MD RICULTURE INSTRUCTOR documented in this encounter Plan of Treatment Not on filedocumented as of this encounter Visit Diagnoses Not on filedocumented in this encounter Care Teams Chipper Feeder Relationship Specialty Start Date End Date Steffanie Hitchcock MD PCP - General Family Practice 02/10/181999 [place] [address] documented as of this encounter
--- OUTSIDE RECORDS SUMMARY | 2021-10-26 13:44 | XMS_ITS | Encounter Summary ---
:1955 Author Organization [facility] Address [address], [place] [address] Care Team Providers Name Role Phone Steffanie Hitchcock MD Primary Care Provider [phone] Encounter Details Date Type Department Care Team Description 02/12/2018 Notes/Orders [facility] Anjelica Babcock, [address] [place], [place] [address] Social History Tobacco Use Types Packs/Day Years Used Date Smoking Tobacco: Never Assessed Sex Assigned at Date Recorded Not on file documented as of this encounter Plan of Treatment Not on filedocumented as of this encounter Visit Diagnoses Not on filedocumented in this encounter Care Teams Solderer Electronic Relationship Specialty Start Date End Date Steffanie Hitchcock MD PCP - General Family Practice 02/10/181999 [place] [address] documented as of this encounter
--- OUTSIDE RECORDS SUMMARY | 2021-10-26 13:44 | XMS_ITS | Clinical Summary ---
:1955 Author Organization [employer] Address [address] [place] [address] Care Team Providers Name Role Phone Steffanie Hitchcock MD Primary Care Provider [phone] Source Comments You are receiving this document [...] for each transition of care or referral. [employer] Allergies Active Allergy Reactions Severity Noted Date Comments Morphine Rash 02/12/2018 Penicillins Rash 02/12/2018 Sulfa Antibiotics 02/12/2018 Fatigue-re action Medications Medication Sig Dispensed Refills Start Date End Date Status cyanocobalamin 6 01/07/2018 Acti ve ([id number]) 1000 MCG/ML injection rOPINIRole (REQUIP) 1 MG [...] Comments Blood Pressure 126/79 02/24/2018 1:15 PM FILM WASHER Pulse 90 02/24/2018 1:15 PM FILM WASHER Temperature - - Respiratory Rate - - Oxygen Saturation - - Inhaled Oxygen Concentration - - Weight 53.1 kg (117 lb) 02/24/2018 1:15 PM FILM WASHER Height 153.7 cm (5' 0.5) 02/24/2018 1:15 PM FILM WASHER Body Mass Index 22.47 02/24/2018 1:15 PM FILM WASHER Plan of Treatment Health Maintenance Due Date [...] Addre ss Type Group MEDICA MEDICA PRIME [id number] 2017-Present [phone] Medicare SOLUTION MEDICARE MEDICARE MANAGED [id number] 1984-Present [phone] Medicare CARE MEDICA LISAMARIA E Personal/Family 1955 [phone] [place] [address] RADHA GONZALEZ Personal/Family [birth year]1947 [address] [place], [place] [phone] [address] (Work) Care Teams Electrical Linesworker Relationship Specialty Start Date End Date Steffanie Hitchcock MD PCP - General Family Practice 02/10/181999 [place] [address]
--- NOTE | 2021-10-26 14:00 | CRLHL7_ITS ---
For Patients: As a result of the Century Cures Act, medical imaging exams and procedure reports are released immediately into your electronic medical record. You may view this report before your referring provider. If you have questions, please contact your health care provider. DXA BONE MINERAL DENSITY STUDY Current height (in): 61. Weight (lb): 125. Menopause age: 40. Ethnicity: White. 1. Have you had a previous hip or vertebral fracture? No. 2. Have you had any fractures during your adult life which did not result from significant trauma (e.g., auto accident)? No. 3. Did either of your parents have a hip fracture? No. 4. Do you smoke? No. 5. Have you ever taken Glucocorticoids? No. 6. Do you have rheumatoid arthritis? No. 7. Do you have secondary osteoporosis? No. 8. Do you drink 3 or more alcoholic drinks per day? No. 9. Are you being treated for osteoporosis? Yes. 10. Have you ever taken any of the following medications: Actonel, Evista, Fosamax, Miacalcin, Reclast, Boniva, Forteo, HRT (i.e. estrogen/hormone therapy), Protelos, Prolia, Vitamin D, Calcium, other ??? please specify. ANSWER: Yes, Actonel, Fosamax, Reclast, vitamin D, calcium. 11. Do you have any of the following medical conditions: Anorexia or bulimia, asthma or emphysema, end stage renal disease, hyperparathyroidism, any seizure disorders, cancer, inflammatory bowel diseases, hysterectomy, other ??? please specify. ANSWER: Yes, inflammatory bowel diseases 12. What was your maximum height (inches)? 63. 13. Do you perform weight bearing exercise regularly? Yes. 14. Do you regularly consume dairy products? No. 15. Do you drink caffeinated beverages? Yes. 16. At what age did your period start? 10. 17. Are you premenopausal? No. 18. How many full term pregnancies have you had? 0. 19. Have you ever missed your period for more than 6 months in a row (not including or menopause)? No. TECHNIQUE: Bone mineral density study was performed using the [employer]. FINDINGS: The results of the study expressed as bone mineral density (BMD) are as follows: Lumbar spine L1, L2, L4: BMD: 0.991 g/cm2. T-score: -0.4. Z-score: 1.5. Neck Left: BMD: 0.563 g/cm2. T-score: -2.6. Z-score: -1.0. Right: BMD: 0.465 g/cm2. T-score: -3.5. Z-score: -1.8. Total Left: BMD: 0.691 g/cm2. T-score: -2.1. Z-score: -0.7. Right: BMD: 0.685 g/cm2. T-score: -2.1. Z-score: -0.8. IMPRESSION: Osteoporosis. *Comparison exams done prior to 08/2019 were performed on different unit, [employer]. COMPARISON: Compared with scan of 08/07/2018, the bone mineral density has increased by 14.1 percent at the spine and increased by 6.7 percent at the hip. Christiano Keivn M.D. Diagnostic Radiologist [email or web address] NAV/Dictated by: Christiano Kevin MD @ 10/26/2021 2:55:00 PM (Electronically Signed)
--- NOTE | 2021-10-26 14:40 | CRLHL7_ITS ---
For Patients: As a result of the Century Cures Act, medical imaging exams and procedure reports are released immediately into your electronic medical record. You may view this report before your referring provider. If you have questions, please contact your health care provider. BILATERAL SCREENING MAMMOGRAM WITH COMPUTER-AIDED DETECTION AND TOMOSYNTHESIS TECHNIQUE: CC and MLO views were obtained. These mammographic images have been obtained using full-field digital technique. These mammographic images were interpreted with the benefit of computer-aided detection. Breast Tomosynthesis was used in this interpretation. COMPARISON FILM: 08/07/18, 02/08/17, 12/15/14. FINDINGS: The breasts are heterogeneously dense, which may obscure small masses IMPRESSION: There is no radiographic evidence for malignancy. ASSESSMENT: BI-RADS Category 2: Benign RECOMMENDATION: Routine screening mammogram in 1 year. A lay language report of this examination will be provided to the patient. Christiano Kevin M.D. Diagnostic Radiologist [email or web address] NAV/Dictated by: Christiano Kevin MD @ 10/27/2021 8:14:00 AM (Electronically Signed)
== END 2021-10-26 13:29 | disposition home or self-care (01) ==
LOC: RAD 13:29
PROVIDERS: PCP Family Medicine; Visit Provider Family Medicine
DX: Z12.31 Encounter for screening mammogram for malignant neoplasm of breast (principal); R92.2 Inconclusive mammogram; M81.0 Age-related osteoporosis without current pathological fracture
CPT/HCPCS: 77063; 77067; 77080

== ENCOUNTER 2023-02-12 12:27 | Outpatient (CLI) | payer MEDICARE, OTHER, SELFPAY ==
--- NOTE | 2023-02-12 13:00 | CRLHL7_ITS ---
For Patients: As a result of the Century Cures Act, medical imaging exams and procedure reports are released immediately into your electronic medical record. You may view this report before your referring provider. If you have questions, please contact your health care provider. Indication: RIGHT ABDOMEN/FLANK PAIN, HX Crohn`s Technique: Postcontrast CT abdomen and pelvis. 100 cc Omnipaque 350 intravenous contrast. Please note that all CT scans at this facility use dose modulation, iterative reconstruction, and/or weight-based dosing when appropriate to reduce radiation dose to as low as reasonably achievable. Comparison: 02/13/2021 Findings: Mild atelectasis is present within the right lung base. 5.4 cm hiatal hernia. No free intraperitoneal air. Hepatic steatosis is present. No intrahepatic mass. The gallbladder is distended. No gallbladder wall thickening. Similar appearance of the common bile duct and pancreatic duct. Normal pancreatic parenchyma. Spleen normal. Incidental splenules. Adrenal glands are normal. No solid renal mass. Small cyst right kidney is unchanged. No renal stone. No hydronephrosis. Bladder normal. Stable calcification adjacent to the right ovary. No adnexal mass. No uterine fibroid. Similar mesenteric lymph nodes are present including a right lower quadrant mesenteric lymph node measuring 1 cm. Postop changes of partial colectomy. No bowel obstruction. No inflammatory changes. No abscess or fistula. Degenerative changes. No vertebral body compression fracture. Pars defects L5. Stable bone island within the right iliac bone. Rightward curvature of the lumbar spine. Impression: Postoperative changes of partial colectomy. No evidence of acute inflammation. No bowel obstruction or abscess. No fistula. Chronic mildly prominent lymph nodes within the mesenteric fat on the right. Please note that all CT scans at this facility use dose modulation, iterative reconstruction, and/or weight-based dosing when appropriate to reduce radiation dose to as low as reasonably achievable. Dictated by Christiano Kevin MD @ 02/15/2023 1:36:31 PM (Electronically Signed)
[2023-02-12 13:28] LABS: Creatinine* 0.8 mg/dL (0.5-1.5); Estimated Glomerular Filt Rate 80 ml/min
== END 2023-02-12 12:28 | disposition home or self-care (01) ==
LOC: CT 12:29
PROVIDERS: PCP Student in an Organized Health Care Education/Training Program; Visit Provider Surgery
DX: R10.9 Unspecified abdominal pain (principal)
CPT/HCPCS: 36415; 74177; 82565; Q9967

== ENCOUNTER 2023-03-07 09:27 | Outpatient (CLI) | payer MEDICARE, OTHER, SELFPAY ==
--- NOTE | 2023-03-07 13:30 | CRLHL7_ITS ---
For Patients: As a result of the Century Cures Act, medical imaging exams and procedure reports are released immediately into your electronic medical record. You may view this report before your referring provider. If you have questions, please contact your health care provider. INDICATION: Evaluate for chronic or acute cholecystitis TECHNIQUE: 5.31 mCi Tc-99m Choletec was injected intravenously. Images of the liver, gallbladder and abdomen were obtained for 55 minutes. 1.18 mcg Kinevac was then administered and imaging continued for an additional 30 minutes. COMPARISON: CT 02/12/2023 FINDINGS: There is good uptake of activity by the hepatocytes. There is visualization of the biliary tree, gallbladder and small bowel. In response to CCK administration, there is a decreased gallbladder ejection fraction of 10 percent. IMPRESSION: Decreased gallbladder ejection fraction of 10 percent may suggest gallbladder dysfunction/functional gallbladder disorder. Dictated by Christiano Kevin MD @ 03/08/2023 9:00:27 AM (Electronically Signed)
== END 2023-03-07 09:28 | disposition home or self-care (01) ==
LOC: NM 09:28
PROVIDERS: PCP Student in an Organized Health Care Education/Training Program; Visit Provider Surgery
DX: K81.0 Acute cholecystitis (principal); R10.11 Right upper quadrant pain; G89.29 Other chronic pain
CPT/HCPCS: 78227; A9537; J2805

== ENCOUNTER 2023-04-22 06:13 | Day surgery (SDC) | payer MEDICARE, OTHER, SELFPAY ==
[2023-04-22] VITALS (14 sets, daily range): BP systolic 93–159; BP diastolic 44–84; PULSE 74–94; RESP 12–16; TEMP 36.3–36.6; O2SAT 90–98; BMI 27.1
[2023-04-22] MEDS: LACTATED RINGERS 1000 ML 1,000 ML 100 ML IV (06:05)
--- OUTSIDE RECORDS SUMMARY | 2023-04-22 06:16 | XMS_ITS | Referral Summary ---
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 Short term OK Penicillin G Rash Low 09/20/2011 Childhood reaction Pregabalin Other (See Comments) 03/27/2012 Patient feels intoxicated on medication Infliximab Injection 01/03/2012 Doesn't work for pt Sulfa Antibiotics Fatigue Low 12/03/2011 Profound lethargy Tramadol Itching,Rash Low 09/20/2011 Medications Medication Sig Dispensed Refills Start Date End Date Status Calcium Citrate-Vitamin D (CITRACAL + D PO) Take 1 tablet by mouth 2 times daily. 0 Active Menthol, Topical Analgesic, (ICY HOT EX) Externally apply topically. Patient uses Gel, Cream and Patch PRN 0 Active guaiFENesin (MUCINEX) 600 MG 12 hr tablet Take 600 mg by mouth 2 times daily as needed. 0 Active fluorouracil (EFUDEX) 5 % creamIndications:AK (actinic keratosis) Apply topically to bilateral forearms and hands twice daily 40 g 0 02/04/2012 Active Carboxymethylcellulo se Sodium (REFRESH TEARS OP) Apply to eye. 0 Active acetaminophen (TYLENOL) 500 MG tablet Take 500-1,000 mg by mouth every 8 hours as needed 0 Active L-Lysine 500 MG TABS Take 1 tablet by mouth daily 0 Active ORDER FOR DME, SET TO LOCAL PRINT,Indications:Ca rbon monoxide exposure Equipment being ordered: portable Oxygen with nasal cannula at 1-2 liters 1 Can 3 08/11/2014 Active blood glucose monitoring (NO BRAND SPECIFIED) test stripIndications:Ot er abnormal glucose Use to test blood sugars 2 to three times daily or as directed 100 each 11 01/28/2017 Active cyanocobalamin (VITAMIN B12) 1000 MCG/ML injectionIndications :B12 deficiency Inject 1 mL (1,000 mcg) into the muscle every 30 days 1 mL 11 01/28/2017 Active order for DMEIndications:B12 deficiency Injection Supplies for Vitamin B12: 3cc syringes w/ 29 gauge needles 1/2 inch length 12 each 0 01/28/2017 Active MAGNESIUM OXIDE PO Take 250 mg by mouth 0 Active POTASSIUM CITRATE PO Take 1,000 mEq by mouth 0 Active Ascorbic Acid (VITAMIN C PO) Take 1,000 mg by mouth 0 Active UNABLE TO FIND MEDICATION NAME: NRF2 Booster. 2 capsules daily 0 Active zinc sulfate (ZINCATE) 220 (50 ZN) MG capsule Take 220 mg by mouth daily 0 Active UNABLE TO FIND MEDICATION NAME: ALA 750 mg Daily 0 Active UNABLE TO FIND MEDICATION NAME: S Acetyl Glutathiane 1 capsule Daily 0 Active COENZYME Q-10 PO 0 Active UNABLE TO FIND MEDICATION NAME: Prevagan 1 Capsule Daily 0 Active Ferrous Sulfate (IRON SUPPLEMENT PO) 0 Acti ve ALPRAZolam (XANAX XR) 0.5 MG 24 hr tabletIndications:Hy pocalcemia,Senile osteoporosis,History of corticosteroid therapy TK 1 T PO QD PRN 2 05/28/2017 Active Venlafaxine HCl (EFFEXOR PO)Indications:Hypoc alcemia,Senile osteoporosis,History of corticosteroid therapy 0 05/25/2017 Active AMITRIPTYLINE HCL PO Take 0.5 mg by mouth 0 Active rOPINIRole (REQUIP) 0.25 MG tablet Take 1 tablet (0.25 mg) by mouth daily 90 tablet 3 07/18/2017 Active levothyroxine (SYNTHROID/LEVOTHROI D) 25 MCG tabletIndications:Hall shimoto's thyroiditis Take 1 tablet (25 mcg) by mouth daily 90 tablet 3 09/02/2017 Active gabapentin (NEURONTIN) 100 MG capsule TAKE 1 CAPSULE BY MOUTH AT 7 PM. INCREASE DOSE TO 200( 2 CAPSULE) MG IN 1 WEEK AND 300 MG(3 CAPSULE) IN 2 WEEKS 90 capsule 0 09/26/2017 Active gabapentin (NEURONTIN) 100 MG capsuleIndications:R estless legs syndrome (RLS) TAKE 1 CAPSULE BY MOUTH AT 7 PM. INCREASE DOSE TO 200( 2 CAPSULE) MG IN 1 WEEK AND 300 MG(3 CAPSULE) IN 2 WEEKS 90 capsule 0 12/27/2017 Active Active Problems Problem Noted Date Diagnosed Date Bilateral shoulder pain 05/07/2017 Carbon monoxide exposure 01/23/2016 Digestive-genital tract fistula, female 07/11/19 16 Pneumaturia 07/11/2015 Osteoporosis 05/19/2015 History of corticosteroid therapy 08/27/2013 Senile osteoporosis 07/27/2013 Personal history of other drug therapy 4 Low back pain 06/02/2013 Chronic low back pain 05/28/2013 Lumbar stenosis with neurogenic claudication Lumbar radicular pain 05/28/2013 Sacroiliac joint pain 05/28/2013 Numbness and tingling of left leg 04/02/2013 Hypothyroidism 12/03/2012 Inflammatory bowel disease (Crohn's disease) Connective tissue disorder (H24) 07/19/2012 Sinus infection 03/27/2012 Dehydration 02/06/2012 Neoplasm of uncertain behavior of skin 2 Pyelonephritis 01/21/2012 Concussion 12/13/2011 Restless leg syndrome 12/13/2011 Right wrist fracture 12/13/2011 Fall 12/03/2011 Cholelithiases 11/07/2011 Sacro-iliac pain 11/01/2011 Dermatitis 11/01/2011 Fibrosis of skin 11/01/2011 Adjustment disorder with mixed anxiety and depre ssed mood 09/20/2011 Overview: Dr Wamao Fatigue 09/20/2011 Renal mass, right 09/20/2011 Yossi's thyroiditis 09/19/1989 Overview: Currently hypothyroid (Problem list name updated by automated process. 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 Mechanical problems with limbs 05/06/2013 06/18/2013 Pain in limb 04/30/2013 06/18/2013 Finger stiffness 04/30/2013 06/18/2013 Other postprocedural status(V45.89) 04/30/2013 06/18/2013 Finger laceration 04/27/2013 06/18/2013 Immunizations Name Administration Dates Next Due Influenza (IIV3) PF 12/30/2012, 2,02/06/2010,12/01/2008, 7,12/23/2002,12/14/1998,12/20/1997 Pneumococcal (PCV 7) 12/22/2003 Pneumococcal 23 valent 05/12/2015 TD,PF 7+ (Tenivac) 11/09/1996 TDAP (Adacel,Boostrix) 04/06/2008 TDAP Vaccine (Adacel) 04/09/2013 Twinrix A/B 08/31/2013 Social History Tobacco Use Types Packs/Day Years Used Date Smoking Tobacco: Former Cigarettes 1 18 0 11/11/1972 - 06/26/1981 Smokeless Tobacco: Former Quit: 09/20/1991 Tobacco Cessation:Counseling Given: No Alcohol Use Standard Drinks/Week Comments No 0 (1 standard drink = 0.6 oz pur e alcohol) Adolescent Education Answer Date Record ed Getting School Help Needed Not on file 11/30 Sex and Gender Information Value Date Recorded Sex Assigned at Not on file Gender Identity Not on file Sexual Orientation Not on file Last Filed Vital Signs Vital Sign Reading Time Taken Comments Blood Pressure 97/68 07/18/2017 10:29 AM CDT Pulse 85 07/18/2017 10:29 AM CDT Temperature 36.5 ??C (97.7 ??F) 07/08/2017 7:47 AM CD T Respiratory Rate 16 07/18/2017 10:29 AM CDT Oxygen Saturation 98% 07/18/2017 10:29 AM CDT Inhaled Oxygen Concentration - - Weight 50.8 kg (112 lb) 07/18/2017 10:29 AM CDT Height 154.9 cm (5' 1) 07/18/2017 10:29 AM CDT Body Mass Index 21.16 07/18/2017 10:29 AM CDT Plan of Treatment Not on file Medical Devices Implanted Type Area Siebel Architect Device Identifier Shelf Expiration Date Model / Serial / Lot Nerve Guide [id number] Neuragen [id number]-220 Charge Per Cm= 2 Units Implanted:Qty: 1 on 04/16/2013 by Marisol Hathaway MD at [facility] Left: Thumb [employer] 01/08/2015 PNG-220 / / [id number] Description:INDEX FINGER Advance Directives For more information, please contact: [phone] Latest Code Status on File Code Status Date Activated Date Inactivated Comments Full Code 02/06/2012 11:20 AM 02/06/2012 7:13 PM Code Status History Code Status Date Activated Date Inactivated Comments Full Code 01/21/2012 7:33 PM 01/22/2012 8:29 PM Full Code 12/03/2011 5:37 PM 01/21/2012 7:33 PM Full Code 12/03/2011 10:30 AM 12/03/2011 5:37 PM Care Teams 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 [address] [place] [address] PCP - General Family Practice 07/23/14 Sheri Casey MD [address] [place] [address] [address] [place], [place] [id number] Pulmonary Disease 07/23/14 Amita Ryan MD [address] [facility] [id number] [place], [place] [id number] Internal Medicine 12/19/15 Sid Lilly MD [facility] [place], [place] [address] Orthopaedic Surgery 02/22/16
--- OUTSIDE RECORDS SUMMARY | 2023-04-22 06:16 | XMS_ITS | Clinical Summary ---
Author Name Unknown Organization [employer] [facility] Address [place], [place] [address] Care Team Providers Care Injection Wax Molder Name Role Phone Lamonte Martinez Primary Care Provider Chao Schmidt MD Unavailable [phone] Allergies Active Allergy Reactions Criticality Noted Date Comments Adalimumab Rash Medium 01/03/2012 Ibuprofen Sodium Nausea Only Medium 02/04/2012 Infliximab Intolerance-Can't Take 01/03/2012 Doesn't work for pt Loratadine Other - Describe In Comment Field 08/13/2012 Dry mouth, rapid heart beat Meperidine Rash Low 01/14/2013 Morphine Rash Low 01/14/2013 IV allergy Penicillins Rash Low 09/20/2011 Childhood reaction Pregabalin Other - Describe In Comment Field 03/27/2012 Patient feels intoxicated on medication Sulfa (Sulfonamide Antibiotics) Rash 11/30/2021 Tramadol Itching,Rash Low 09/20/2011 Medications Medication Sig Dispensed Refills Start Date End Date Status lysine 500 mg tab Take 1 Tablet by mouth once daily. 0 Active lidocaine 5 % oint topical ointment lidocaine 5 % topical ointment APPLY TO AFFECTED AREA(S) BY TOPICAL ROUTE 1-4 TIMES DAILY NEEDED 0 Active acetaminophen (TYLENOL EXTRA STRGTH) 500 mg tablet Take 500-1,000 mg by mouth. 0 Active CALCIUM CARBONATE ORAL Take 1 Tablet by mouth once daily. 1250mg 0 Active Potassium Gluconate 595 mg (99 mg) tablet Take 1,000 mEq by mouth two times daily. 0 Active CHOLECALCIFEROL, VITAMIN D3, ORAL Take 1,000 units by mouth once daily. 0 Active prasterone, dhea, 50 mg tab Take 100 mg by mouth once daily. 0 11/30/2021 Active iron polysaccharide-C -B complx (Protect Iron Liquid) 100 mg iron-250 mg/5 mL liqd Take by mouth. 0 11/30/2021 Active albuterol (PROVENTIL) 0.083 % neb solutionIndicati ons:COPD, mild (HC) Inhale 3 mL (2.5 mg) via a nebulizer every 4 hours if needed for Shortness Of Breath or Wheezing. 270 mL 3 04/17/2022 Active albuterol HFA (PRO-AIR; VENTOLIN; PROVENTIL) 90 mcg/actuation inhalerIndicatio ns:COPD, mild (HC) Inhale 1-2 Puffs by mouth every 4 hours if needed for Shortness Of Breath. 1 Each 1 04/17/2022 Active amitriptyline (ELAVIL) 25 mg tabletIndication s:Adjustment disorder with mixed anxiety and depressed mood,Other migraine without status migrainosus, not intractable TAKE ONE TABLET BY MOUTH AT BEDTIME 30 Tablet 0 07/09/2022 Active cyclobenzaprine (FLEXERIL) 10 mg tabletIndication s:Other migraine without status migrainosus, not intractable Take 1 Tablet (10 mg) by mouth once daily. 30 Tablet 2 07/12/2022 Active triamcinolone (ARISTOCORT; KENALOG) 0.1 % creamIndications :Itching Apply topically to affected area(s) three times daily. Use Short term for itching. 28.4 g 0 08/03/2022 Active amLODIPine (NORVASC) 5 mg tabletIndication s:Raynaud's disease without gangrene Take 1 Tablet (5 mg) by mouth once daily. 90 Tablet 2 04/11/2023 Active sucralfate (CARAFATE) 1 gram tabletIndication s:Chronic GERD Take 1 Tablet (1 g) by mouth two times daily before meals. 180 Tablet 3 04/11/2023 Active folic acid 1 mg tabletIndication s:Fatigue, unspecified type Take 1 Tablet (1 mg) by mouth once daily. 90 Tablet 3 04/11/2023 Active levothyroxine (SYNTHROID) 25 mcg tabletIndication s:Hypothyroidism , unspecified type,Yossi's thyroiditis Take 1 Tablet (25 mcg) by mouth once daily. 90 Tablet 3 04/11/2023 Active rOPINIRole (REQUIP) 1 mg tabletIndication s:Restless leg syndrome Take 3 Tablets (3 mg) by mouth at bedtime. 270 Tablet 3 04/11/2023 Active venlafaxine (EFFEXOR XR) 150 mg Extended-Release capsuleIndicatio ns:Depression, recurrent (HC) Take 1 Capsule (150 mg) by mouth once daily with a meal. 90 Capsule 3 04/11/2023 Active cyanocobalamin (VITAMIN B12) 1,000 mcg/mL injectionIndicat ions:B12 deficiency Inject 1 mL (1,000 mcg) intramuscular every 4 weeks. 3 mL 3 04/12/2023 Active esomeprazole (NEXIUM) 40 mg capsule Take 40 mg by mouth once daily. 0 11/22/2021 4 Discontinu ed(*Med complete/R egimen complete/L evel of care change) folic acid 1 mg tabletIndication s:Fatigue, unspecified type Take 1 Tablet (1 mg) by mouth once daily. 90 Tablet 3 04/17/2022 4 Discontinu ed(Reorder (E-cancel not sent)) amLODIPine (NORVASC) 5 mg tabletIndication s:Raynaud's disease without gangrene TAKE 1 TABLET(5 MG) BY MOUTH EVERY DAY 90 Tablet 0 05/17/2022 4 Discontinu ed(Reorder (E-cancel not sent)) cyanocobalamin (VITAMIN B12) 1,000 mcg/mL injectionIndicat ions:B12 deficiency Inject 1 mL (1,000 mcg) intramuscular every 4 weeks. 1 mL 11 07/23/2022 4 Discontinu ed(Reorder (E-cancel not sent)) hydrOXYzine HCL (ATARAX) 25 mg tabletIndication s:Itching,Rash Take 0.5-1 Tablets (12.5-25 mg) by mouth at bedtime if needed for Itching. 25 Tablet 0 08/03/2022 4 Discontinu ed(*Patien t states no longer taking) venlafaxine (EFFEXOR XR) 150 mg Extended-Release capsuleIndicatio ns:Depression, recurrent (HC) Take 2 Capsules (300 mg) by mouth once daily with a meal. 180 Capsule 1 02/25/2023 4 Discontinu ed(Reorder (E-cancel not sent)) rOPINIRole (REQUIP) 1 mg tabletIndication s:Restless leg syndrome TAKE THREE TABLETS BY MOUTH DAILY 2 - 3 HOUR BEFORE BEDTIME. 270 Tablet 0 02/26/2023 4 Discontinu ed(Reorder (E-cancel not sent)) levothyroxine (SYNTHROID) 25 mcg tabletIndication s:Hypothyroidism , unspecified type,Yossi's thyroiditis TAKE ONE TABLET BY MOUTH ONE TIME DAILY 60 Tablet 0 03/04/2023 4 Discontinu ed(Reorder (E-cancel not sent)) sucralfate (CARAFATE) 1 gram tablet Take 1 g by mouth two times daily before meals. 0 02/27/2023 4 Discontinu ed(Reorder (E-cancel not sent)) fluconazole (DIFLUCAN) 150 mg tablet Take 150 mg by mouth. 0 01/14/2023 4 Discontinu ed(*Med complete/R egimen complete/L evel of care change) Active Problems Problem Noted Date Diagnosed Date Depression, recurrent 08/03/2022 COPD, mild 04/17/2022 Concussion without loss of consciousness, sequel a 04/17/2022 History of left oophorectomy 11/30/2021 Overview: In [place]. During colon resection. Prior to 1979. History of colon resection 11/30/2021 Overview: 1980s. Current chronic use of systemic steroids 022 Actinic keratoses 11/30/2021 Overview: Dermatology through [facility]. Toxic effect of carbon monoxide, unintentional 0 11/30/2021 Overview: [id number]. Boiler. Continues to have occasional cough, and subjective difficulty breathing. Spondylolisthesis, grade 1 11/02/2019 Overview: With bilateral pars defect at L4-L5 L5 - S1 - bilaterat pars defects Retrolisthesis 11/02/2019 Overview: L1 and L2 Raynaud's syndrome 02/12/2018 Migraine 02/12/2018 History of lumbar laminectomy 02/12/2018 Overview: 2. In [place]. Prior to 2009. Depression 02/12/2018 B12 deficiency 02/12/2018 Overview: B12 self injections. Anxiety 02/12/2018 Digestive-genital tract fistula, female 07/11/19 16 Overview: No surgical repair. Consult to Dr. Salazar at the History of corticosteroid therapy 08/27/2013 Overview: chronically for crohn's. Senile osteoporosis 07/27/2013 Lumbar stenosis with neurogenic claudication Hypothyroidism 12/03/2012 Connective tissue disorder 07/19/2012 Overview: Lupus like syndrome. Has seen Rheumatology. Negative RAIMUNDO. Right wrist fracture 12/13/2011 Overview: S/p surgical repair in . Re-fractured in 2011. Compound fracture. Restless leg syndrome 12/13/2011 Overview: On Requip. Concussion 12/13/2011 Overview: 2011. Fell down stairs. Cholelithiases 11/07/2011 Fibrosis of skin 11/01/2011 Renal mass, right 09/20/2011 Adjustment disorder with mixed anxiety and depre ssed mood 09/20/2011 Overview: Dr Herminia Figueroaimoto's thyroiditis 09/19/1989 Overview: Currently hypothyroid (Problem list name updated by automated process. Provider to review and confirm.) Crohn's disease of both smal l and large intestine with complication 09/20/1987 Overview: Surgical resection Intermittent obstruction Resolved Problems Problem Noted Date Diagnosed Date Resolved Date History of carpal tunnel maura regina of right wrist 11/30/2021 11/30/2021 Encounters Date Type Department Care Team Description 04/18/2023 1:30 PM EXECUTIVE VICE PRESIDENT OF SALES Ancillary Procedure [facility] [address] [place] [address] Arrived 04/18/2023 Travel 04/11/2023 1:15 PM EXECUTIVE VICE PRESIDENT OF SALES Office Visit [facility] [address] [place] [address] Lamonte Martinez DO Medicare ANNUAL (subsequent) Visit (67 year old female ); Preoperative Exam (04/22/2023 - Dr. Bear - [facility] - Gallbladder ) 04/11/2023 Refill [facility] [address] [place] [address] Lamonte Martinez DO Refill Request (CYANOCOBALAMIN INJECTION SOLUTION 1000MCG/ML) 04/11/2023 Travel 04/09/2023 10:30 AM EXECUTIVE VICE PRESIDENT OF SALES Office Visit [address] [place] [address] Sheryl Obregon MBBS Consult (Elevated CK-MB level/Pt denies chest discomfort, dizziness, edema and SOB at this time/Pt wants to discuss about amlodipine /Per pt medications are managed by PCP and refills not needed at this time ) 04/09/2023 Travel 03/07/2023 Orders Only [facility] Scanner 1 scan: (1-Ord) [facility], 03/07/2023 03/05/2023 8:00 AM EXECUTIVE VICE PRESIDENT OF SALES Ancillary Procedure [facility] [address] [facility] [place] [address] 03/05/2023 Travel 03/02/2023 Refill [facility] [address] [place] [address] Lamonte Martinez DO Refill Request (Levothyroxine) 02/26/2023 Telephone [place] [address] [place] [phone] Arsenio Machado MD Appointment (ANY CARD) 02/25/2023 Refill [facility] [address] [place] [address] Lamonte Martinez DO Refill Request (Ropinirole) 02/25/2023 Orders Only [facility] [address] [place] [address] Lamonte Martinez DO <No scans attached> 02/22/2023 2:41 PM EXECUTIVE VICE PRESIDENT OF SALES - 02/22/2023 11:59 PM EXECUTIVE VICE PRESIDENT OF SALES Hospital Encounter [facility] [address] [facility], [facility] [address] [place] [address] Lamonte Martinez DO Elevated CK-MB level 02/22/2023 Travel 02/20/2023 1:20 PM EXECUTIVE VICE PRESIDENT OF SALES Office Visit [facility] [address] [place] [address] Chao Schmidt MD Musculoskeletal Problem (Consult low back pain, history of 2 back surgeries.) 02/20/2023 Travel 02/12/2023 Orders Only [facility] Scanner 1 scan: (1-Ord) [place], CT ABD PELVIS W CONTRAST, 02/12/2023 from Last 3 Months Immunizations Name Administration Dates Next Due COVID-19 vaccine (Moderna 100mcg/0.5mL) MARC MALLORY 10/26/2020,06/13/2020,05/15/2020 HepA-HepB (Twinrix) 08/31/2013 Influenza, High-dose Quadriv alent Inactivated 12/11/2022,11/24/2021,01/11/2021,2019 Influenza, IIV3 (Age >=3 years) 12/31/19 13,12/07/2012,12/13/2011,2009,12/01/2008,01/09/2007,12/23/2002,1 ,12/20/1997 Pneumococcal Poly,23-Valent (Pneumovax) 05/12/2015 Pneumococcal conj 13-Valent (Prevnar 13) 12/22/2003 Pneumococcal conj 7-Valent ( Prevnar 7) 12/22/2003 Td, Preservative Free (age > = 7 Years) 11/09/1996 Tdap 04/09/2013,04/06/2008 Family History Medical History Relation Name Comments Cancer-breast Other Pat. Great Aunt Cancer-ovarian No Family History Relation Name Status Comments Other Pat. Great Aunt Social History Tobacco Use Types Packs/Day Years Used Date Smoking Tobacco: Former Cigarettes Q uit: 1990 Smokeless Tobacco: Never Tobacco Cessation:Counseling Given: Yes Comments:smoked 1 pack a day - 1990 quit Alcohol Use Standard Drinks/Week Comments Yes 0 (1 standard drink = 0.6 oz pure alcohol) 1 dram of scotch every 3 months PHQ-2 Answer Date Recorded PHQ-2 TOTAL SCORE 0 04/11/2023 Social Connections Answer Date Recorded Frequency of Communication with Friends and Fami ly 0 04/11/2023 Financial Resource Strain Answer Date R ecorded Difficulty of Paying Living Expenses 3 04/11/2023 Difficulty of Paying Living Expenses Not on file 04/11/2023 Food Insecurity Answer Date Recorded Worried About Running Out of Food in the Last Ye ar 1 04/11/2023 Transportation Needs Answer Date Record ed Lack of Transportation (Medical) 1 04/11/2023 Housing Stability Answer Date Recorded Unable to Pay for Housing in the Last Year 1 04/11/2023 Sex and Gender Information Value Date Recorded Sex Assigned at Not on file Gender Identity Not on file Sexual Orientation Not on file Obstetrics History Para Term AB IAB SAB Ectopic Multiple Livin g Live Births 1 1 Date Outcome GA Total Labor Labor/2nd/3rd Weight Sex Delivery Anes PTL Sydney A1 A5 Name Cl in AB Comments:no complicati ons Last Filed Vital Signs Vital Sign Reading Time Taken Comments Blood Pressure 116/75 04/11/2023 1:42 PM EXECUTIVE VICE PRESIDENT OF SALES Pulse 89 04/11/2023 1:42 PM EXECUTIVE VICE PRESIDENT OF SALES Temperature 36.8 ??C (98.3 ??F) 02/20/2023 1:25 PM CS T Respiratory Rate 14 04/09/2023 10:4 8 AM EXECUTIVE VICE PRESIDENT OF SALES Oxygen Saturation 98% 04/11/2023 1:42 PM EXECUTIVE VICE PRESIDENT OF SALES Inhaled Oxygen Concentration - - Weight 62.5 kg (137 lb 11.2 oz) 04/11/2023 1:42 PM EXECUTIVE VICE PRESIDENT OF SALES Height 154.9 cm (5' 1) 04/11/2023 1:42 PM EXECUTIVE VICE PRESIDENT OF SALES Body Mass Index 26.02 04/11/2023 1:42 PM EXECUTIVE VICE PRESIDENT OF SALES Plan of Treatment Health Maintenance Due Date Last Done Comments Zoster (shingles) series for age 50+ (1 of 2) 2004 DEXA/DXA scan for age 65+ 11/29/2019 Pneumococcal series for age 65+ (3 of 3 - PPSV23 or PCV20) 05/11/2020 05/12/2015, 12/22/2003, 12/22/2003 Tetanus booster 04/09/2023 04/09/2013, 03/12, 11/09/1996 Mammogram for age 45-75 05/16/2023 05/15/2022 BMI (ht and wt on same day) for age 18+ 04/11/2024 04/11/2023, 04/09/2023, 04/17/2022, Additional history exists Depression screening for age 12+ 04/11/2024 04/11/2023, 04/11/2023, 02/26/2023, Additional history exists Medicare Wellness for age 65+ 04/11/2024 04/11/2023, 04/17/2022 Lipids for age 45-75 04/11/2028 04/11/2023, 04/17/19 23 Colonoscopy through age 75 10/25/203110/24, 10/24/2021 (Completed outside of [facility]) Tdap Completed 04/09/2013, 04/06/2008 Hepatitis C screening for ag e 18-79 Completed 04/17/2022 COVID-19 vaccine series Completed 12/12/19 23, 06/30/2022, 11/24/2021, Additional history exists Influenza for age 65+ Completed 12/11/2022 , 11/24/2021, 01/11/2021, Additional history exists Procedures Procedure Name Priority Date/Time Associated Diagnosis Comments TSH Routine 04/11/2023 2:37 PM EXECUTIVE VICE PRESIDENT OF SALES Hypothyroidism, unspecified type LIPID PANEL W REFLEX MEASURED LDL Routine 04/11/2023 2:37 PM EXECUTIVE VICE PRESIDENT OF SALES Lipid screening GLUCOSE, FASTING Routine 04/11/2023 2:37 PM EXECUTIVE VICE PRESIDENT OF SALES Screening for diabetes mellitus (DM) EKG 12 LEAD Routine 04/09/2023 11:11 AM EXECUTIVE VICE PRESIDENT OF SALES Dyspnea, unspecified type SCAN-NUCLEAR MEDICINE 03/07/2023 12:00 AM EXECUTIVE VICE PRESIDENT OF SALES ECHO TTE COMPLETE WO CONTRAST Routine 03/05/2023 8:32 AM EXECUTIVE VICE PRESIDENT OF SALES Fever, unspecified fever cause Elevated CK-MB level MR CARDIAC WWO Routine 02/22/2023 4:09 PM EXECUTIVE VICE PRESIDENT OF SALES Elevated CK-MB level SCAN-CT INTERPRETATION 12:00 AM EXECUTIVE VICE PRESIDENT OF SALES from Last 3 Months Results * (ABNORMAL) LIPID PANEL W REFLEX MEASURED LDL (04/11/2023 2:37 PM EXECUTIVE VICE PRESIDENT OF SALES) CHOLESTEROL,TOTAL 193 100 - 199 mg/dL 04/12/2023 1:49 AM EXECUTIVE VICE PRESIDENT OF SALES [facility] Comment: Cholesterol, Total Reference Ranges Desirable <200 mg/dL Borderline 200-239 mg/dL High >=240 mg/dL TRIGLYCERIDES 252(H) <150 mg/dL 04/12/2023 1:49 AM EXECUTIVE VICE PRESIDENT OF SALES [facility] [employer] LABORATORY-[facility] HDL CHOLESTEROL 78 >40 mg/dL 1:49 AM EXECUTIVE VICE PRESIDENT OF SALES [facility] [employer] LABORATORY-[facility] NON-HDL CHOLESTEROL 115 <145 mg/dl 04/12/2023 1:49 AM EXECUTIVE VICE PRESIDENT OF SALES [facility]ThrupointBRE[facility] CHOL/HDL RATIO 2.47 <4.50 04/12/2023 1:49 AM EXECUTIVE VICE PRESIDENT OF SALES [facility] LABORATORY-[facility] LDL CHOLESTEROL 65 <=130 mg/dL 04/12/2023 1:49 AM EXECUTIVE VICE PRESIDENT OF SALES [facility] VLDL CHOLESTEROL 50(H) <=30 mg/dL 04/12/2023 1:49 AM EXECUTIVE VICE PRESIDENT OF SALES [facility] PROVIDER ORDERED STATUS RANDOM 04/12/2023 1:49 AM EXECUTIVE VICE PRESIDENT OF SALES [facility] [employer] [facility] Blood BLOOD SPECIMEN / Unknown Venipuncture / Unknown 04/11/2023 2:37 PM EXECUTIVE VICE PRESIDENT OF SALES 04/11/2023 2:39 PM EXECUTIVE VICE PRESIDENT OF SALES Mamtabrad Martinez DO CHEMISTRY Performing Organization Address City/[facility]/ZIP Co de Phone Number [facility] [address] [place] [address], [place] * TSH (04/11/2023 2:37 PM EXECUTIVE VICE PRESIDENT OF SALES) TSH 1.68 0.27 - 4.20 uIU/mL 04/12/2023 1:49 AM EXECUTIVE VICE PRESIDENT OF SALES [facility] Blood BLOOD SPECIMEN / Unknown Venipuncture / Unknown 04/11/2023 2:37 PM EXECUTIVE VICE PRESIDENT OF SALES 04/11/2023 2:39 PM EXECUTIVE VICE PRESIDENT OF SALES Narrative [facility] - 04/12/2023 1:49 AM EXECUTIVE VICE PRESIDENT OF SALES In Adults, TSH values between 5.00 and 10.00 uIU/ml do not necessarily indicate the presence of Hypothyroidism. Correlation with clinical findings such as presence of goiter and/or Thyroperoxidase (TPO) Antibody may be helpful. For more information please refer to BATSHEVA 2004; 291: 228-238. Mamtabrad Dasjohnsonra SHAH CHEMISTRY Performing Organization Address City/[facility] Co de Phone Number [facility] [address] [place] [address], [place] * GLUCOSE, FASTING [[id number]] (04/11/2023 2:37 PM EXECUTIVE VICE PRESIDENT OF SALES) Pathologist [facility] GLUCOSE 81 70 - 99 mg/dL 04/11/2023 2:50 PM EXECUTIVE VICE PRESIDENT OF SALES [facility] Blood BLOOD SPECIMEN / Unknown Venipuncture / Unknown 04/11/2023 2:37 PM EXECUTIVE VICE PRESIDENT OF SALES 04/11/2023 2:39 PM EXECUTIVE VICE PRESIDENT OF SALES [facility] HospitalDSG TechnologiesB[facility] CHEMISTRY Performing Organization Address City/[facility]/ZIP Co de Phone Number [facility] [address] [place] [address], [place] [phone] * EKG 12 LEAD (04/09/2023 11:11 AM EXECUTIVE VICE PRESIDENT OF SALES) Interpretation Normal sinus rhythm Incomplete LBBB Low anterior infarct Abnormal ECG Ventricular Rate 80 BPM Atrial Rate 80 BPM P-R Interval 154 ms QRS Duration 102 ms QT 380 ms QTc 438 ms P Hartline 17 degrees R Hartline -19 degrees T Hartline 61 degrees 04/09/2023 11:1 1 AM EXECUTIVE VICE PRESIDENT OF SALES 04/09/2023 4:08 PM EXECUTIVE VICE PRESIDENT OF SALES Sheryl Mindi MBBS EKG ORD * SCAN-NUCLEAR MEDICINE (03/07/2023 12:00 AM EXECUTIVE VICE PRESIDENT OF SALES) Anatomical Region Laterality Modality Other Scanner OTHER * ECHO TTE COMPLETE WO CONTRAST (03/05/2023 8:32 AM EXECUTIVE VICE PRESIDENT OF SALES) AORTIC VALVE MEAN PG 4 mmHg EJECTION FRACTION 57 % LVEDD 3.6 cm Anatomical Region Laterality Modality Ultrasound 03/05/2023 8:03 AM EXECUTIVE VICE PRESIDENT OF SALES Narrative 03/05/2023 8:44 AM EXECUTIVE VICE PRESIDENT OF SALES ECHOCARDIOGRAM MARIA E COLEY ? Accession#: ?? [id number] : ?1955 67 years Study Date: ?? 03/05/2023 8:03:28 AM Gender: F ?BP: ? 143/82 mmHg Height: 155.00 cm ?BSA: ?1.61 m? ? ? Weight: 62.00 kg ? Tech: ? MHR ? Referring MD: LAMONTE MARTINEZ Site: ? [facility] Reading Location: MOBILE OP Patient Location: Outpatient. Procedure: 2D, Color Doppler and Spectral Doppler. Indication for study: fever Cardiac Rhythm: Regular.Study quality: Fair. Final Impressions: 1. Normal left ventricular size, normal wall thickness, normal global systolic function, calculated EF of 57 %. 2. There is subtle hypokinesis of the mid-septum, though endocardial definition is limited - consider repeat limited study with contrast enhancement. 3. Right ventricular cavity size is normal, global systolic RV function is normal. 4. No significant valve disease detected. Chamber Sizes and Function Normal left ventricular size, normal wall thickness, normal global systolic function, calculated EF of 57 %. Left atrial size is normal. Right ventricular cavity size is normal, global systolic RV function is normal. RV wall thickness is normal. The right atrium is normal. Right atrial volume index is 11 ml/m? ? ?. Right atrial area is 10 cm? ? ?. The pulmonary artery is of normal size and origin. The sinus of Valsalva is normal sized. The ascending aorta is normal sized. Valves, RV Pressures and Diastolic Function The aortic valve is normal in structure and trileaflet, no stenosis and no regurgitation. The mitral valve is normal in structure, no mitral regurgitation. Normal diastolic function. The tricuspid valve is normal in structure. Tricuspid regurgitation is regurgitation is not evident. The pulmonic valve is normal. Mild pulmonary regurgitation. Masses, Effusion, Shunts There is no pericardial effusion. The inferior vena cava is normal sized, respiratory size variation greater than 50%. No left to right shunting was detected by limited color flow Doppler interrogation of the interatrial septum. MEASUREMENTS AND CALCULATIONS 2-D Measurements and LV Function: LVID (d) ?3.6 cm Planimetered EF 57 % LVID (s) ?2.5 cm LV FS% (2D) ? 30 % IVS (d) ? 1.0 cm LVOT diameter ?? 2.0 cm LVPW (d) ?1.2 cm HR ?81 bpm Ao Sinus ?2.7 cm LA Vol index ?15 ml/m2 Ao ST junct 2.3 cm RA Vol index ?11 ml/m2 Asc Ao ?3.2 cm RA area ? 10 cm? ? ? LA ?3.5 cm RV Max 4C (d) ?? 2.3 cm Diastology: Mitral ?Tissue Doppler E Peak 0.7 m/s ??e', Septum ? 0.05 m/s A Peak 1.1 m/s ??e', Lateral ?0.09 m/s E/A ?0.6 ?E/e' Average ?? 10.17 DT ? 189 msec Aortic Valve: Vmax ? 1.2 m/s ??BERTO (V) ?? 2.65 cm? ? ? VTI ?0.27 m ?? BERTO (I) ?? 2.42 cm? ? ? LVOT V max 1.0 m/s ??Max PG ?6 mmHg LVOT VTI ?? 0.20 m ?? Mean PG ?? 4 mmHg SV ? 64 ml ?Dim Index 0.75 SV index ?? 40 ml/m? ? ? CO ?5.2 l/min ?CI ?3.2 l/min/m? ? ? Mitral Valve: MVA ?4.0 cm? ? ? MV P 1/2 55 msec Tricuspid Valve and estimated PA pressures: TAPSE 2.0 cm . This study was interpreted by an [facility] accredited facility. ??Final ?? Procedure Note Ambrosio Johnson MD - 03/05/2023 ECHOCARDIOGRAM MARIA E COLEY : 1955 67 years Study Date: 03/05/2023 8:03:28 AM Gender: F BP: 143/82 mmHg Height: 155.00 cm BSA: 1.61 m? ? ? Weight: 62.00 kg Tech: R Referring MD: LAMONTE MARTINEZ Site: [facility] Reading Location: MOBILE OP Patient Location: Outpatient. Procedure: 2D, Color Doppler and Spectral Doppler. Indication for study: fever Cardiac Rhythm: Regular.Study quality: Fair. Final Impressions: 1. Normal left ventricular size, normal wall thickness, normal globalsystolic function, calculated EF of 57 %. 2. There is subtle hypokinesis of the mid-septum, though endocardialdefinition is limited - consider repeat limited study with contrastenhancement. 3. Right ventricular cavity size is normal, global systolic RV functionis normal. 4. No significant valve disease detected. Chamber Sizes and Function Normal left ventricular size, normal wall thickness, normal globalsystolic function, calculated EF of 57 %. Left atrial size is normal.Right ventricular cavity size is normal, global systolic RV function isnormal. RV wall thickness is normal. The right atrium is normal. Rightatrial volume index is 11 ml/m? ? ?. Right atrial area is 10 cm? ? ?. Thepulmonary artery is of normal size and origin. The sinus of Valsalva isnormal sized. The ascending aorta is normal sized. Valves, RV Pressures and Diastolic Function The aortic valve is normal in structure and trileaflet, no stenosis and noregurgitation. The mitral valve is normal in structure, no mitralregurgitation. Normal diastolic function. The tricuspid valve is normal instructure. Tricuspid regurgitation is regurgitation is not evident. Thepulmonic valve is normal. Mild pulmonary regurgitation. Masses, Effusion, Shunts There is no pericardial effusion. The inferior vena cava is normal sized,respiratory size variation greater than 50%. No left to right shunting wasdetected by limited color flow Doppler interrogation of the interatrialseptum. MEASUREMENTS AND CALCULATIONS 2-D Measurements and LV Function: LVID (d) 3.6 cm Planimetered EF 57 % LVID (s) 2.5 cm LV FS% (2D) 30 % IVS (d) 1.0 cm LVOT diameter 2.0 cm LVPW (d) 1.2 cm HR 81 bpm Ao Sinus 2.7 cm LA Vol index 15 ml/m2 Ao ST junct 2.3 cm RA Vol index 11 ml/m2 Asc Ao 3.2 cm RA area 10 cm? ? ? LA 3.5 cm RV Max 4C (d) 2.3 cm Diastology: Mitral Tissue Doppler E Peak 0.7 m/s e', Septum 0.05 m/s A Peak 1.1 m/s e', Lateral 0.09 m/s E/A 0.6 E/e' Average 10.17 DT 189 msec Aortic Valve: Vmax 1.2 m/s BERTO (V) 2.65 cm? ? ? VTI 0.27 m BERTO (I) 2.42 cm? ? ? LVOT V max 1.0 m/s Max PG 6 mmHg LVOT VTI 0.20 m Mean PG 4 mmHg SV 64 ml Dim Index 0.75 SV index 40 ml/m? ? ? CO 5.2 l/min CI 3.2 l/min/m? ? ? Mitral Valve: MVA 4.0 cm? ? ? MV P 1/2 55 msec Tricuspid Valve and estimated PA pressures: TAPSE 2.0 cm . This study was interpreted by an [facility] accredited facility. Final Lamonte Martinez DO ECHO ORD * MR CARDIAC W/WO CONTRAST (02/22/2023 4:09 PM EXECUTIVE VICE PRESIDENT OF SALES) Anatomical Region Laterality Modality HEART, THORAX Magnetic Resonan ce 02/22/2023 2:42 PM EXECUTIVE VICE PRESIDENT OF SALES Narrative 02/24/2023 11:52 AM EXECUTIVE VICE PRESIDENT OF SALES ?[facility] ? CMR Report ??MRN: ?[id number] ?Name: ?MARIA E COLEY ?: ?Scan Date: ? Electronically signed by Jef Eagle 11:52:46 VITALS ===== HEIGHT: 60 in ?(152 cm) WEIGHT: 136 lbs ?(62 kgs) BSA: 1.58 m^2 FINAL IMPRESSION ===== 1. No myocardial edema. Late gadolinium enhancement imaging was nondiagnostic due to presumed IV infiltration with no significant contrast reaching the blood pool (post contrast T1 in blood 1135 msec). Cannot assess for myocardial infarction, fibrosis, myocarditis, or amyloidosis. No myocardial iron overload or Fabry? s disease. ?? 2. Quantitative LVEF 63 %. LV systolic function is normal. LV cavity size is normal. LV wall thickness is normal. 3. Quantitative RVEF 76 %. RV systolic function is normal. RV cavity size is normal. 4. There is no pericardial effusion. Pericardium is normal. 5. There is no pleural effusion. 6. No significant valvular heart disease. ?? 7. Gallstones and hiatal hernia noted. SUMMARY ===== LEFT VENTRICLE: Quantitative LVEF 63 %. LV systolic function is normal. LV cavity size is normal. LV wall thickness is normal. VIABILITY: No myocardial edema. Late gadolinium enhancement imaging was nondiagnostic due to presumed IV infiltration with no significant contrast reaching the blood pool (post contrast T1 in blood 1135 msec). ??Cannot assess for myocardial infarction, fibrosis, myocarditis, or amyloidosis. RIGHT VENTRICLE: Quantitative RVEF 76 %. RV systolic function is normal. RV cavity size is normal. LEFT ATRIUM: LA is mildly enlarged. RIGHT ATRIUM: RA is mildly enlarged. PERICARDIUM: There is no pericardial effusion. Pericardium is normal. PLEURAL EFFUSION: There is no pleural effusion. AORTIC VALVE: Aortic valve is trileaflet. There is no aortic stenosis. There is no aortic regurgitation. MITRAL VALVE: Mitral valve leaflets are normal. There is trivial mitral regurgitation. TRICUSPID VALVE: Tricuspid valve leaflets are normal. There is no tricuspid regurgitation. AORTIC ROOT: The aortic root is normal. OTHER FINDINGS: Gallstones and hiatal hernia noted. CORE EXAM ===== MEASUREMENTS ----- --- ?VOLUMETRIC ANALYSIS ? . . ? LV ?? Reference RV ?? Reference +------+ +------+ +------+ + EDV ?? ml ?102 ??(82-162) ?? 90 ??(75-160) ? ml/m^2 ? 64 ??(53-87) ? 57 ??(49-86) ?? ESV ?? ml ? 38 ??(20-57) ? 22 ??(11-63) ? ml/m^2 ? 24 ??(13-31) ? 14 ??(8-34) ?? CO ?? L/min ? 4.86 ? 5.17 ? L/min/m^2 3.07 ? 3.26 ? MASS g ? 66 ??(73-145) ? g/m^2 ? 42 ??(48-78) ? SV ?? ml ? 64 ??(56-111) ?? 68 ??(55-106) ? ml/m^2 ? 40 ??(36-60) ? 43 ??(34-58) ?? EF ?? % ? 63 ??(60-78) ? 76 ??(57-81) ?? '------+ +------+ +------+ ' ?CARDIAC OUTPUT HR: ??76 BPM ?EXTRACELLULAR VOLUME MEASUREMENT ?PRE-CONTRAST T1 MYOCARDIUM: ??1057 msec ?POST-CONTRAST T1 LV CAVITY: ??1135 msec 17 SEGMENT ----- --- . ----- ------. Segments ? Wall Motion ?? Hyperenhancement Stress Perfusion Interpretation + + + + +----- ----- ------+ Base Anterior ? Normal/Hyper ? Base Anteroseptal ?? Normal/Hyper ? Base Inferoseptal ?? Normal/Hyper ? Base Inferior ? Normal/Hyper ? Base Inferolateral Normal/Hyper ? Base Anterolateral Normal/Hyper ? Mid Anterior ? Normal/Hyper ? Mid Anteroseptal ?? Normal/Hyper ? Mid Inferoseptal ?? Normal/Hyper ? Mid Inferior ? Normal/Hyper ? Mid Inferolateral ?? Normal/Hyper ? Mid Anterolateral ?? Normal/Hyper ? Apical Anterior ? Normal/Hyper ? Apical Septal ? Normal/Hyper ? Apical Inferior ? Normal/Hyper ? Apical Lateral ? Normal/Hyper ? Rugby ? Normal/Hyper ? + + + + +----- ----- ------+ RV Segments ? Wall Motion ?? Hyperenhancement ? Interpretation + + + + +----- ----- ------+ RV Basal Anterior ? RV Basal Inferior ? RV Mid ? RV Apical ? ' + + + +----- ----- ------' SCAN INFO ===== GENERAL ----- --- ?SCANNER ?ACCOUNT STRATEGIST: ??SIEMENS ?MODEL: ??Avanto_fit ?CONTRAST AGENT ?GD CONCENTRATION: ??1.0 M ?VOLUME ADMINISTERED: ??6.5 ml ?DOSAGE: ??0.11 mmol/kg ?SETUP ?REFERRING PHYSICIAN: ??LAMONTE MARTINEZ ?ATTENDING PHYSICIAN: ??LAMONTE MARTINEZ BILLING ===== Patient Account ?[id number] ICD10 Codes ?R74.8 Report generated by [employer], a product of [employer] Procedure Note Jef Eagle MD - 02/24/2023 [facility] CMR Report Name: MARIA E COLEY : Scan Date: Electronically signed by Jef Eagle 11:52:46 VITALS ===== HEIGHT: 60 in (152 cm) WEIGHT: 136 lbs (62 kgs) BSA: 1.58 m^2 FINAL IMPRESSION ===== 1. No myocardial edema. Late gadolinium enhancement imaging wasnondiagnostic due to presumed IV infiltration with no significant contrast reaching the blood pool (postcontrast T1 in blood 1135 msec). Cannot assess for myocardial infarction, fibrosis, myocarditis, oramyloidosis. No myocardial iron overload or Fabry? s disease. 2. Quantitative LVEF 63 %. LV systolic function is normal. LV cavity sizeis normal. LV wall thickness is normal. 3. Quantitative RVEF 76 %. RV systolic function is normal. RV cavity sizeis normal. 4. There is no pericardial effusion. Pericardium is normal. 5. There is no pleural effusion. 6. No significant valvular heart disease. 7. Gallstones and hiatal hernia noted. SUMMARY ===== LEFT VENTRICLE: Quantitative LVEF 63 %. LV systolic function is normal. LVcavity size is normal. LV wall thickness is normal. VIABILITY: No myocardial edema. Late gadolinium enhancement imaging wasnondiagnostic due to presumed IV infiltration with no significant contrast reaching the blood pool (post contrast T1 inblood 1135 msec). Cannot assess for myocardial infarction, fibrosis, myocarditis, or amyloidosis. RIGHT VENTRICLE: Quantitative RVEF 76 %. RV systolic function is normal.RV cavity size is normal. LEFT ATRIUM: LA is mildly enlarged. RIGHT ATRIUM: RA is mildly enlarged. PERICARDIUM: There is no pericardial effusion. Pericardium is normal. PLEURAL EFFUSION: There is no pleural effusion. AORTIC VALVE: Aortic valve is trileaflet. There is no aortic stenosis.There is no aortic regurgitation. MITRAL VALVE: Mitral valve leaflets are normal. There is trivial mitralregurgitation. TRICUSPID VALVE: Tricuspid valve leaflets are normal. There is notricuspid regurgitation. AORTIC ROOT: The aortic root is normal. OTHER FINDINGS: Gallstones and hiatal hernia noted. CORE EXAM ===== MEASUREMENTS ----- --- VOLUMETRIC ANALYSIS . . LV Reference RV Reference +------+ +------+ +------+ + EDV ml 102 (82-162) 90 (75-160) ml/m^2 64 (53-87) 57 (49-86) ESV ml 38 (20-57) 22 (11-63) ml/m^2 24 (13-31) 14 (8-34) CO L/min 4.86 5.17 L/min/m^2 3.07 3.26 MASS g 66 (73-145) g/m^2 42 (48-78) SV ml 64 (56-111) 68 (55-106) ml/m^2 40 (36-60) 43 (34-58) EF % 63 (60-78) 76 (57-81) '------+ +------+ +------+ ' CARDIAC OUTPUT HR: 76 BPM EXTRACELLULAR VOLUME MEASUREMENT PRE-CONTRAST T1 MYOCARDIUM: 1057 msec POST-CONTRAST T1 LV CAVITY: 1135 msec 17 SEGMENT ----- --- . ----- ------. Segments Wall Motion Hyperenhancement Stress Perfusion Interpretation + + + + +----- ----- ------+ Base Anterior Normal/Hyper Base Anteroseptal Normal/Hyper Base Inferoseptal Normal/Hyper Base Inferior Normal/Hyper Base Inferolateral Normal/Hyper Base Anterolateral Normal/Hyper Mid Anterior Normal/Hyper Mid Anteroseptal Normal/Hyper Mid Inferoseptal Normal/Hyper Mid Inferior Normal/Hyper Mid Inferolateral Normal/Hyper Mid Anterolateral Normal/Hyper Apical Anterior Normal/Hyper Apical Septal Normal/Hyper Apical Inferior Normal/Hyper Apical Lateral Normal/Hyper Rugby Normal/Hyper + + + + +----- ----- ------+ RV Segments Wall Motion Hyperenhancement Interpretation + + + + +----- ----- ------+ RV Basal Anterior RV Basal Inferior RV Mid RV Apical ' + + + +----- ----- ------' SCAN INFO ===== GENERAL ----- --- SCANNER ACCOUNT STRATEGIST: SIEMENS MODEL: Avanto_fit CONTRAST AGENT GD CONCENTRATION: 1.0 M VOLUME ADMINISTERED: 6.5 ml DOSAGE: 0.11 mmol/kg SETUP REFERRING PHYSICIAN: LAMONTE MARTINEZ ATTENDING PHYSICIAN: LAMONTE MARTINEZ BILLING ===== Patient Account [id number] ICD10 Codes R74.8 Report generated by [employer], a product of [employer] Lamonte Martinez DO MR * SCAN-CT INTERPRETATION (02/12/2023 12:00 AM EXECUTIVE VICE PRESIDENT OF SALES) Anatomical Region Laterality Modality Other Scanner OTHER from Last 3 Months Care Teams Injection Wax Molder Relationship Specialty Start Date End Date Lamonte Martinez DO [address] [place] [address] PCP - General Family Practice 05/17/22 Chao Schmidt MD [address] [place] [address] Consulting Physician Sports Medicine - Family Medicine 02/20/23
--- OUTSIDE RECORDS SUMMARY | 2023-04-22 06:16 | XMS_ITS | Clinical Summary ---
Author Name Unknown Organization [facility] Address [address] [place] [address] Care Team Providers Care Stencil Cutter Name Role Phone Edison Tam MD Primary Care Provider Sheri Casey MD Unavailable [phone] Amita Ryan MD Unavailable [phone] Sid Lilly MD Unavailable Allergies Active Allergy [...] TDAP Vaccine (Adacel) 04/09/2013 Twinrix A/B 08/31/2013 Family History Medical History [...] OF HM ORDERS 1955 CT COLONOGRAPHY 1954 FIT 1954 sDNA (Cologuard) 1954 COVID-19 Vaccine (#1) 05/29/1955 ZOSTER IMMUNIZATION (1 of 2) 2004 RSV VACCINE ( & 60+) (1 - 1-dose 60+ series) 2014 LUNG CANCER SCREENING 12/02/2015 12/01/2014, 012 FLEX SIG 08/26/2017 08/26/2012 MAMMO SCREENING 02/08/2018 02/08/2017, 09/2014, 2011 TSH W/FREE T4 REFLEX 06/20/2018 06/20/2017, 06/20/2017, 04/22/2017, Additional history exists FALL RISK ASSESSMENT 11/29/2019 GLUCOSE 04/22/2020 04/22/2017, 01/10, 12/19/2015, Additional history exists Pneumococcal Vaccine: 65+ Years (3 of 3 - PPSV23 or PCV20) 05/11/2020 05/12/2015, 12/22/2003 ADVANCE CARE PLANNING 08/14/2020 08/15/2015 LIPID 01/28/2022 01/28/2017, 0305/2015, 08/09/2014, Additional history exists COLONOSCOPY 10/24/2022 10/24/2021, 09/15/2015 COLORECTAL CANCER SCREENING 10/24/2022 INFLUENZA VACCINE (#1) 2022 , 01/11/2021, 02/10/2020, Additional history exists PHQ-2 (once per calendar year) 2023 01/28/2017, 05/12/2015 DTAP/TDAP/TD IMMUNIZATION (3 - Td or Tdap) 04/09/2023 04/09/2013, 04/06/2008, 11/09/1996 MEDICARE ANNUAL WELLNESS VISIT 04/11/2024 04/11/2023, 04/17/2022, 01/28/2017, Additional history exists DEXA 02/09/2032 02/08/2017, 09/2015, 11/06/2011 HEPATITIS C SCREENING Completed 08/31/2013 PAP Discontinued 01/28/2017, 01/10, 11/01/2011, Additional history exists HPV IMMUNIZATION Aged Out No longer e ligible based on patient's age to complete this topic IPV IMMUNIZATION Aged Out No longer e ligible based on patient's age to complete this topic MENINGITIS IMMUNIZATION Aged Out No l onger eligible based on patient's age to complete this topic RSV MONOCLONAL ANTIBODY Aged Out No l onger eligible based on patient's age to complete this topic Medical Devices Implanted Type Area Pasteurizer Device Identifier Shelf Expiration Date Model / Serial / Lot Nerve Guide [id number] Neuragen Png-220 Charge Per Cm= 2 Units Implanted:Qty: 1 on 04/16/2013 by Marisol Hathaway MD at [facility] Left: Thumb [employer] 01/08/2015 [id number] / / [id number] Description:INDEX FINGER Advance Directives For more information, please contact: [phone] Latest Code Status on File Code Status Date Activated Date Inactivated Comments Full Code 02/06/2012 11:20 AM 02/06/2012 7:13 PM Code Status History Code Status Date Activated Date Inactivated Comments Full Code 01/21/2012 7:33 PM 01/22/2012 8:29 PM Full Code 12/03/2011 5:37 PM 01/21/2012 7:33 PM Full Code 12/03/2011 10:30 AM 12/03/2011 5:37 PM Care Teams Stencil Cutter Relationship Specialty Start Date End Date Edison Tam MD [address] [facility] [address] [place] [address] PCP - General Family Practice 07/23/14 Sheri Casey MD [address] [facility] [address] [facility] [address] [place], [place] [address] Pulmonary Disease 07/23/14 Amita Ryan MD [address] [facility] [place] [id number] [place] [address] Internal Medicine 12/19/15 Sid Lilly MD [address] [place] [address] Orthopaedic Surgery 02/22/16
--- OUTSIDE RECORDS SUMMARY | 2023-04-22 06:17 | XMS_ITS | Encounter Summary ---
Author Name Unknown Organization [facility] Address [address] [place] [address] Care Team Providers Care Social Work Associate Name Role Phone Edison Tam MD Primary Care Provider [phone] Sheri Casey MD Unavailable [phone] Alphonso Billy MD Unavailable [phone] Roland Holt MD Unavailable [phone] Amita Ryan MD Unavailable Sid Lilly MD Unavailable Neda Boland RN Unavailable Edison Tam MD Unavailable [phone] Encounter Details Date Type Department Care Team (Late st Contact Info) Description 06/14/2016 [facility] Medical Advice [facility] Neurology [address] [facility] 3rd [place] [address] Neda Boland, RN Social History Tobacco Use Types Packs/Day Years Used Date Smoking Tobacco: Former Cigarettes 1 18 0 11/11/1972 - 06/26/1981 Smokeless Tobacco: Former Quit: 09/20/1991 Alcohol Use Standard Drinks/Week Comments No 0 (1 standard drink = 0.6 oz pur e alcohol) Sex and Gender Information Value Date Recorded Sex Assigned at Not on file Gender Identity Not on file Sexual Orientation Not on file documented as of this encounter Plan of Treatment Not on file documented as of this encounter Visit Diagnoses Not on filedocumented in this encounter Additional Health Concerns Assessment Noted Time PHQ-9 Depression Total Score: 14 05/12/ 016 7:50 AM CREDIT COLLECTION SPECIALIST documented as of this encounter Care Teams Social Work Associate Relationship Specialty Start Date End Date Edison Tam MD [address] [facility] [address] [place] [address] PCP - General Family Practice 07/23/14 Sheri Casey MD [address] [facility] [address] [place] [address] Pulmonary Disease 07/23/14 Alphonso Billy MD [address] [place] [address] Cardiology 08/12/14 12/26/17 Roland Holt MD [address] [place] [address] Resident Student in organized health care education/training program 05/12/15 09/24/18 Amita Ryan MD 9 [facility] [id number] [place], [place] [address] Internal Medicine 12/19/15 Sid Lilly MD [facility] [address] [address] Orthopaedic Surgery 02/22/16 Neda Boland, RN Nurse Coordinator Neurology 02/23/16 09/01/18 Edison Tam MD [address] [place] [address] Assigned PCP 07/30/19 04/30/20 documented as of this encounter
--- OUTSIDE RECORDS SUMMARY | 2023-04-22 06:17 | XMS_ITS | Encounter Summary ---
Author Name Unknown Organization [facility] Address [address] [place] [address]. [place] [address] Care Team Providers Care Stained Glass Window Designer Name Role Phone Edison Tam MD Primary Care Provider [phone] Sheri Casey MD Unavailable [phone] Alphonso Billy MD Unavailable [phone] Roland Holt MD Unavailable Amita Ryan MD Unavailable [phone] Sid Lilly MD Unavailable [phone] Neda Boland RN Unavailable [phone] Edison Tam MD Unavailable Encounter Details Date Type Department Care Team (Late st Contact Info) Description 09/03/2017 [facility] Medical Advice Health Endocrinology [address] [facility] [address] 3rd [place] [address] Laisha Moraes MD [address] [facility] [address] [place] [address] Social History Tobacco Use Types Packs/Day [...] Noted Time PHQ-9 Depression Total Score: 3 01/29/20 17 10:28 AM TITLE CLOSER documented as of this encounter Care Teams Stained Glass Window Designer Relationship Specialty Start Date End Date Edison Tam MD [address] [facility] 4 [place] [address] PCP - General Family Practice 07/23/14 Sheri Casey MD [address] [facility] 276 [place], [place] [address] Pulmonary Disease 07/23/14 Alphonso Billy MD 420 [place] [address] Cardiology 08/12/14 12/26/17 Roland Holt MD [address] [place] [address] Resident Student in organized health care education/training program 05/12/15 09/24/18 Amita Ryan MD 909 [facility] [id number] [place], [place] [address] Internal Medicine 12/19/15 Sid Lilly MD [address] [place] [address] Orthopaedic Surgery 02/22/16 Neda Boland, RN Nurse Coordinator Neurology 02/23/16 09/01/18 Edison Tam MD [address] [place] [address] Assigned PCP 07/30/19 04/30/20 documented as of this encounter
--- OUTSIDE RECORDS SUMMARY | 2023-04-22 06:17 | XMS_ITS | Encounter Summary ---
Author Name Unknown Organization [facility] Address [address] [place] [address]. [place] [address] Care Team Providers Care Lumber Loader Name Role Phone Edison Tam MD Primary Care Provider [phone] Sheri Casey MD Unavailable [phone] Alphonso Billy MD Unavailable [phone] Roland Holt MD Unavailable [phone] Amita Ryan MD Unavailable [phone] Sid Lilly MD Unavailable Neda Boland RN Unavailable [phone] Edison Tam MD Unavailable [phone] Encounter Details Date Type Department Care Team (Late st Contact Info) Description 12/28/2015 [facility] Medical [facility] [address] [address] Charan Salazar MD [address] [facility] [address] [place] [address] Social History Tobacco Use Types Packs/Day Years [...] Total Score: 14 05/12/ 016 7:50 AM ENGINE LATHE SET UP OPERATOR TOOL documented as of this encounter Care Teams Lumber Loader Relationship Specialty Start Date End Date Edison Tam MD [address] [facility] [address] [place] [address] PCP - General Family Practice 07/23/14 Sheri Casey MD 420 [facility] [address] [address] [place] [address] Pulmonary Disease 07/23/14 Alphonso Billy MD 420 [place] [address] Cardiology 08/12/14 12/26/17 Roland Holt MD 420 [place] [address] Resident Student in organized health care education/training program 05/12/15 09/24/18 Amita Ryan MD [address] [facility] [id number] [place], [place] [address] Internal Medicine 12/19/15 Sid Lilly MD [address] [place] [address] Orthopaedic Surgery 02/22/16 Neda Boland, RN Nurse Coordinator Neurology 02/23/16 09/01/18 Edison Tam MD [address] [place] [address] Assigned PCP 07/30/19 04/30/20 documented as of this encounter
--- OUTSIDE RECORDS SUMMARY | 2023-04-22 06:17 | XMS_ITS | Encounter Summary ---
Author Name Unknown Organization [facility] Address [address] [place] [address]. [place] [address] Care Team Providers Care Railroad Track Mechanic Name Role Phone Edison Tam MD Primary Care Provider [phone] Sheri Casey MD Unavailable [phone] Alphonso Billy MD Unavailable [phone] Roland Holt MD Unavailable [phone] Amita Ryan MD Unavailable [phone] Sid Lilly MD Unavailable Neda Boland RN Unavailable Edison Tam MD Unavailable [phone] Encounter Details Date Type Department Care Team (Late st Contact Info) Description 07/09/2017 [facility] Medical Advice Health Endocrinology [address] [facility] [address] 3rd [place] [address] Laisha Moraes MD 420 [facility] 101 [place] [address] Social History Tobacco Use Types [...] Total Score: 3 01/29/20 17 10:28 AM CARD DEALER documented as of this encounter Care Teams Railroad Track Mechanic Relationship Specialty Start Date End Date Edison Tam MD [address]09 [facility] 4 [place] [address] PCP - General Family Practice 07/23/14 Sheri Casey MD [address] [facility] 276 [place], [place] [address] Pulmonary Disease 07/23/14 Alphonso Billy MD 420 [place] [address] Cardiology 08/12/14 12/26/17 Roland Holt MD [address] [place] [address] Resident Student in organized health care education/training program 05/12/15 09/24/18 Amita Ryan MD 909 [facility] [id number] [place], [place] [address] Internal Medicine 12/19/15 Sid Lilly MD [address] [place] [address] Orthopaedic Surgery 02/22/16 Neda Boland, RN Nurse Coordinator Neurology 02/23/16 09/01/18 Edison Tam MD [address] [place] [address] Assigned PCP 07/30/19 04/30/20 documented as of this encounter
--- OUTSIDE RECORDS SUMMARY | 2023-04-22 06:17 | XMS_ITS | Encounter Summary ---
Author Name Unknown Organization [place] Address [address] [place] [address] Care Team Providers Care Road Supervisor Name Role Phone Edison Tam MD Primary Care Provider +[phone] Sheri Casey MD Unavailable [phone] Alphonso Billy MD Unavailable [phone] Roland Holt MD Unavailable Amita Ryan MD Unavailable [phone] Sid Lilly MD Unavailable Neda Boland RN Unavailable Edison Tam MD Unavailable [phone] Encounter Details Date Type Department Care Team (Late st Contact Info) Description 05/09/2015 [facility] [place] [facility] [place] - 1E [facility] 1st Floor, Clinic 1E 6 [place] [address] Charan Salazar MD 100 [facility] 208 [place] [address] Social History Tobacco Use Types Packs/Day Years Used Date Smoking Tobacco: Former Cigarettes 1 18 0 12/01/1972 - 12/02/1991 Smokeless Tobacco: Former Quit: 09/20/1991 Alcohol Use [...] on filedocumented in this encounter Care Teams Road Supervisor Relationship Specialty Start Date End Date Edison Tam MD 909 [facility] [address] 4 [place], [place] 895055 PCP - General Family Practice 07/23/14 Sheri Casey MD 420 [facility] 276 [place], [place] 656545 Pulmonary Disease 07/23/14 Alphonso Billy MD [address] [place] [address] 081805 Cardiology 08/12/14 12/26/17 Roland Holt MD [address] [place] [place] [address] 706635 Resident Student in organized health care education/training program 05/12/15 09/24/18 Amita Ryan MD 9 [facility] [id number] [place], [place] 794085 Internal Medicine 12/19/15 Sid Lilly MD [facility] [address] [address] Orthopaedic Surgery 02/22/16 Neda Boland, RN Nurse Coordinator Neurology 02/23/16 09/01/18 Edison Tam MD [address] [address] Assigned PCP 07/30/19 04/30/20 documented as of this encounter
--- OUTSIDE RECORDS SUMMARY | 2023-04-22 06:17 | XMS_ITS | Encounter Summary ---
Author Name Unknown Organization [place] Address [address] [place] [address] Care Team Providers Care Resource Manager Name Role Phone Edison Tam MD Primary Care Provider +[phone]- [phone] Sheri Casey MD Unavailable Alphonso Billy MD Unavailable [phone] Roland Holt MD Unavailable Amita Ryan MD Unavailable [phone] Sid Lilly MD Unavailable Neda Boland RN Unavailable Edison Tam MD Unavailable Reason for Visit * Reason Onset Date Comments MyChart Communication 10/04/2016 Encounter Details Date Type Department Care Team (Latest Contact Info) Description 10/04/2016 [facility] Care Clinic 909 [facility] 4th [place] [address] Edison Tam MD 909 [facility] 4 [place] [address] MyChart Communication Social History Tobacco Use Types Packs/Day Years [...] Noted Time PHQ-9 Depression Total Score: 14 016 7:50 AM LICENSED PHARMACIST documented as of this encounter Care Teams Resource Manager Relationship Specialty Start Date End Date Edison Tam MD 909 [facility] [address] 4 [place], [place] [address]255 PCP - General Family Practice 07/23/14 Sheri Casey MD 420 [facility] 276 [place], [place] 938515 Pulmonary Disease 07/23/14 Alphonso Billy MD 420 [place], [place] 780535 Cardiology 08/12/14 12/26/17 Roland Holt MD 420 [place], [place] 333425 Resident Student in organized health care education/training program 05/12/15 09/24/18 Amita Ryan MD 909 [facility] [id number] [place], [place] 142875 Internal Medicine 12/19/15 Sid Lilly MD 2512 [facility] R200 [place], [place] 161444 Orthopaedic Surgery 02/22/16 Neda Boland, RN Nurse Coordinator Neurology 02/23/16 09/01/18 Edison Tam MD [address] [address] Assigned PCP 07/30/19 04/30/20 documented as of this encounter
--- OUTSIDE RECORDS SUMMARY | 2023-04-22 06:17 | XMS_ITS | Encounter Summary ---
Author Name Unknown Organization [place] Address [address] [place] [address] Care Team Providers Care Apple Packing Header Name Role Phone Edison Tam MD Primary Care Provider Sheri Casey MD Unavailable [phone] Alphonso Billy MD Unavailable [phone] Roland Holt MD Unavailable Amita Ryan MD Unavailable Sid Lilly MD Unavailable Neda Boland RN Unavailable [phone] Edison Tam MD Unavailable [phone] Encounter Details Date Type Department Care Team (Late st Contact Info) Description 06/21/[facility] [place] [facility] 909 [facility] 4th [place] [address] Ros Baeza RN Social History Tobacco Use Types Packs/Day [...] Total Score: 14 05/12/ 016 7:50 AM OPENER documented as of this encounter Care Teams Apple Packing Header Relationship Specialty Start Date End Date Edison Tam MD 909 [facility] [address] 4 [place], [place] 603035 PCP - General Family Practice 07/23/14 Sheri Casey MD 420 [facility] 276 [place], [place] 882195 Pulmonary Disease 07/23/14 Alphonso Billy MD [address] [place] [address] 656205 Cardiology 08/12/14 12/26/17 Roland Holt MD [address] [place] [address] 531785 Resident Student in organized health care education/training program 05/12/15 09/24/18 Amita Ryan MD [address] [place] [address] [id number] [place], [place] 217105 Internal Medicine 12/19/15 Sid Lilly MD [address] [place] [address] 995694 Orthopaedic Surgery 02/22/16 Neda Boland, NANDINI Nurse Coordinator Neurology 02/23/16 09/01/18 Edison Tam MD [address] [address] Assigned PCP 07/30/19 2 documented as of this encounter
--- OUTSIDE RECORDS SUMMARY | 2023-04-22 06:17 | XMS_ITS | Encounter Summary ---
Author Name Unknown Organization [place] Address [address] [place] [address]. [place] [address] Care Team Providers Care Trestle Mechanic Name Role Phone Edison Tam MD Primary Care Provider [phone]- [phone] Sheri Casey MD Unavailable [phone] Alphonso Billy MD Unavailable [phone] Roland [place] MD Unavailable Amita Ryan MD Unavailable Sid Lilly MD Unavailable [phone] Neda Boland RN Unavailable Edison Tam MD Unavailable [phone] Encounter Details Date Type Department Care Team (Late st Contact Info) Description 07/05/2017 [facility] Medical Advice Health Endocrinology 909 [facility] SE 3rd [place] [address] Laisha Moraes MD 420 [facility] 101 [place] [address] Social History Tobacco Use Types [...] Total Score: 3 01/29/20 17 10:28 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 [id number] [place], [place] 587895 Internal Medicine 12/19/15 Sid Lilly MD [address] [place] [address] Orthopaedic Surgery 02/22/16 Neda Boland, RN Nurse Coordinator Neurology 02/23/16 09/01/18 Edison Tam MD [address] [place] [address] Assigned PCP 07/30/19 04/30/20 documented as of this encounter
--- OUTSIDE RECORDS SUMMARY | 2023-04-22 06:17 | XMS_ITS | Encounter Summary ---
Author Name Unknown Organization [place] Address [address] [place] [address] Care Team Providers Care Airconditioning Drafting Officer Name Role Phone Edison Tam MD Primary Care Provider [phone]- [phone] Sheri Casey MD Unavailable [phone] Alphonso Billy MD Unavailable [phone] Roland Holt MD Unavailable Amita Ryan MD Unavailable [phone] Sid Lilly MD Unavailable Neda Boland RN Unavailable [phone] Edison Tam MD Unavailable [phone] Encounter Details Date Type Department Care Team (Late st Contact Info) Description 09/02/2017 [facility] [place] [facility] [place] [facility] 9 [facility] 4th [place] [address] Edison Tam MD [address] [place] [address] Social History Tobacco Use Types Packs/Day [...] documented as of this encounter Miscellaneous Notes * Telephone Encounter - Laisha Moraes MD - 09/02/2017 4:56 PM CDT I didn't actually recommend a dose change. 25 mcg/day (taken as 1/2 of a 50) is the dose Maria E reported to me that she was taking when I met her on 06/19/17. This was a dose she came to on her own but she told me she had been on it for months. I just went along with it based on the labs obtained on06/20/17. I can revise the Rx as requested, but we do not plan on following her chronically, in factI referred her back to primary care in my last communication with her in July. 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 documented as of this encounter Care Teams Airconditioning Drafting Officer Relationship Specialty Start Date End Date Edison Tam MD 909 [facility] 4 [place], [place] 824555 PCP - General Family Practice 07/23/14 Sheri Casey MD 420 [facility] 276 [place], [place] 346085 Pulmonary Disease 07/23/14 Alphonso Billy MD 420 [place], [place] 795215 Cardiology 08/12/14 12/26/17 Roland Holt MD 420 [place] [address] Resident Student in organized health care education/training program 05/12/15 09/24/18 Amita Ryan MD 909 [facility] [id number] [place], [place] 951735 Internal Medicine 12/19/15 Sid Lilly MD [address] [place], [place] 562[address] Orthopaedic Surgery 02/22/16 Neda Boland, RN Nurse Coordinator Neurology 02/23/16 09/01/18 Edison Tam MD [address] [place] [address] FL 4 [place] [address] Assigned PCP 07/30/19 04/30/20 documented as of this encounter
--- OUTSIDE RECORDS SUMMARY | 2023-04-22 06:17 | XMS_ITS | Encounter Summary ---
Author Name Unknown Organization [place] Address [address] [place] [address] Care Team Providers Care Teamcenter Solution Architect Name Role Phone Edison Tam MD Primary Care Provider [phone] Sheri Casey MD Unavailable [phone] Alphonso Billy MD Unavailable [phone] Roland Holt MD Unavailable Amita Ryan MD Unavailable Sid Lilly MD Unavailable Neda Boland RN Unavailable Edison Tam MD Unavailable [phone] Encounter Details Date Type Department Care Team (Late st Contact Info) Description 06/03/2015 [facility] [place] Medical Advice Medicine GI - 1E [facility] 1st Floor, Clinic 1E 6 [place] [address] Charan Salazar MD 100 [facility] 208 [place] [address] Social History Tobacco Use Types Packs/Day Years [...] Total Score: 14 05/12/ 016 7:50 AM WARP SPOOLER documented as of this encounter Care Teams Teamcenter Solution Architect Relationship Specialty Start Date End Date Edison Tam MD 909 [facility] FL 4 [place] [address] PCP - General Family Practice 07/23/14 Sheri Casey MD 420 [facility] 276 [place] [address] Pulmonary Disease 07/23/14 Alphonso Billy MD 420 [place] [address] Cardiology 08/12/14 12/26/17 Roland Holt MD 420 [place] [address] Resident Student in organized health care education/training program 05/12/15 09/24/18 Amita Ryan MD 909 [facility] [id number] [place], [place] 9709[address] Internal Medicine 12/19/15 Sid Lilly MD 2512 [facility] R200 [place] [address] Orthopaedic Surgery 02/22/16 Neda Boland, RN Nurse Coordinator Neurology 02/23/16 09/01/18 Edison Tam MD [address] [place] [address] Assigned PCP 07/30/19 04/30/20 documented as of this encounter
--- OUTSIDE RECORDS SUMMARY | 2023-04-22 06:17 | XMS_ITS | Encounter Summary ---
Author Name Unknown Organization [place] Address [address] [place] [address] Care Team Providers Care Inventory Worker Name Role Phone Edison Tam MD Primary Care Provider [phone]- [phone] Sheri Casey MD Unavailable [phone] Alphonso Billy MD Unavailable [phone] Roland Holt MD Unavailable [phone] Amita Ryan MD Unavailable Sid Lilly MD Unavailable Neda Boland RN Unavailable [phone] Edison Tam MD Unavailable Encounter Details Date Type Department Care Team (Late st Contact Info) Description 04/21/2017 [facility] 909 [facility] 4th [place] [address] Edison Tam MD [address] [place] [address] Social History Tobacco Use Types Packs/Day [...] Total Score: 3 01/29/20 17 10:28 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 documented as of this encounter Care Teams Inventory Worker Relationship Specialty Start Date End Date Edison Tam MD 909 [facility] [address] 4 [place] [address] PCP - General Family Practice 07/23/14 Sheri Casey MD 420 [facility] 276 [place] [address] Pulmonary Disease 07/23/14 Alphonso Billy MD 420 [place] [address] Cardiology 08/12/14 12/26/17 Roland Holt MD 420 [place] [address] Resident Student in organized health care education/training program 05/12/15 09/24/18 Amita Ryan MD 909 [facility] [id number] [place], [place] 671585 Internal Medicine 12/19/15 Sid Lilly MD [facility] [address] [place] [address] Orthopaedic Surgery 02/22/16 Neda Boland, RN Nurse Coordinator Neurology 02/23/16 09/01/18 Edison Tam MD [address] [place] [address] Assigned PCP 07/30/19 04/30/20 documented as of this encounter
--- OUTSIDE RECORDS SUMMARY | 2023-04-22 06:17 | XMS_ITS | Encounter Summary ---
Author Name Unknown Organization [place] Address [address] [place] [address] Care Team Providers Care Direct Support Staff Name Role Phone Edison Tam MD Primary Care Provider Sheri Casey MD Unavailable [phone] Alphonso Billy MD Unavailable [phone] Roland Holt MD Unavailable Amita Ryan MD Unavailable [phone] Sid Lilly MD Unavailable [phone] Neda Boland RN Unavailable Edison Tam MD Unavailable [phone] Encounter Details Date Type Department Care Team (Late st Contact Info) Description 07/11/2015 [facility] [place] [facility] 909 [facility] 4th [place] [address] Charan Salazar MD 100 [facility] 208 [place], [place] 65[address] Social History Tobacco Use Types Packs/Day Years [...] Total Score: 14 05/12/ 016 7:50 AM 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 documented as of this encounter Care Teams Direct Support Staff Relationship Specialty Start Date End Date Edison Tam MD 909 [facility] [address] 4 [place] [address] PCP - General Family Practice 07/23/14 Sheri Casey MD 420 [facility] 276 [place] [address] Pulmonary Disease 07/23/14 Alphonso Billy MD 420 [place] [address] Cardiology 08/12/14 12/26/17 Roland Holt MD 420 [place] [address] Resident Student in organized health care education/training program 05/12/15 09/24/18 Amita Ryan MD 909 [facility] [id number] [place], [place] 122605 Internal Medicine 12/19/15 Sid Lilly MD [facility] [address] [place] [address] Orthopaedic Surgery 02/22/16 Neda Boland, NANDINI Nurse Coordinator Neurology 02/23/16 09/01/18 Edison Tam MD [address] [place] [address] Assigned PCP 07/30/19 04/30/20 documented as of this encounter
--- OUTSIDE RECORDS SUMMARY | 2023-04-22 06:17 | XMS_ITS | Encounter Summary ---
Author Name Unknown Organization [place] Address [address] [place] [address]. [place] [address] Care Team Providers Care Offc Spec Name Role Phone Edison Tam MD Primary Care Provider [phone] Sheri Casey MD Unavailable [phone] Alphonso Billy MD Unavailable [phone] Roland Holt MD Unavailable Amita Ryan MD Unavailable [phone] Sid Lilly MD Unavailable Neda Boland RN Unavailable Edison Tam MD Unavailable Encounter Details Date Type Department Care Team (Late st Contact Info) Description 07/21/2017 [facility] [place] [facility] Advice Health Endocrinology 909 [facility] SE 3rd [place] [address] Laisha Moraes MD 420 [facility] 101 [place] [address] Social History Tobacco Use Types [...] Total Score: 3 01/29/20 17 10:28 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 documented as of this encounter Care Teams Offc Spec Relationship Specialty Start Date End Date Edison Tam MD 909 [facility] 4 [place] [address] PCP - General Family Practice 07/23/14 Sheri Casey MD 420 [facility] 276 [place], [place] 382255 Pulmonary Disease 07/23/14 Alphonso Billy MD 420 [place] [address] Cardiology 08/12/14 12/26/17 Roland Holt MD [address] [place] [address] Resident Student in organized health care education/training program 05/12/15 09/24/18 Amita Ryan MD 909 [facility] [id number] [place], [place] 193145 Internal Medicine 12/19/15 Sid Lilly MD [address] [place] [address] Orthopaedic Surgery 02/22/16 Neda Boland, RN Nurse Coordinator Neurology 02/23/16 09/01/18 Edison Tam MD [address] [place] [address] Assigned PCP 07/30/19 04/30/20 documented as of this encounter
--- OUTSIDE RECORDS SUMMARY | 2023-04-22 06:17 | XMS_ITS | Encounter Summary ---
Author Name Unknown Organization [place] Address [address] [place] [address]. [place] [address] Care Team Providers Care Arrt Technologist Name Role Phone Edison Tam MD Primary Care Provider [phone] Sheri Casey MD Unavailable [phone] Alphonso Billy MD Unavailable [phone] Roland Holt MD Unavailable Amita Ryan MD Unavailable Sid Lilly MD Unavailable [phone] Neda Boland RN Unavailable [phone] Edison Tam MD Unavailable Encounter Details Date Type Department Care Team (Late st Contact Info) Description 06/22/2017 [facility] [place] Medical Advice Health Endocrinology 909 [facility] SE 3rd [place] [address] Laisha Mroaes MD 420 [facility] 101 [place] [address] Social History Tobacco Use Types [...] Total Score: 3 01/29/20 17 10:28 AM GUIDE VISITOR documented as of this encounter Care Teams Arrt Technologist Relationship Specialty Start Date End Date Edison Tam MD 909 [facility] 4 [place] [address] PCP - General Family Practice 07/23/14 Sheri Casey MD 420 [facility] 276 [place], [place] 994715 Pulmonary Disease 07/23/14 Alphonso Billy MD 420 [place] [address] Cardiology 08/12/14 12/26/17 Roland Holt MD [address] [place] [address] Resident Student in organized health care education/training program 05/12/15 09/24/18 Amita Ryan MD 909 [facility] [id number] [place], [place] 967775 Internal Medicine 12/19/15 Sid Lilly MD [address] [place] [address] Orthopaedic Surgery 02/22/16 Neda Boland, RN Nurse Coordinator Neurology 02/23/16 09/01/18 Edison Tam MD [address] [place] [address] Assigned PCP 07/30/19 04/30/20 documented as of this encounter
--- OUTSIDE RECORDS SUMMARY | 2023-04-22 06:17 | XMS_ITS | Encounter Summary ---
Author Name Unknown Organization [place] Address [address] [place] [address] Care Team Providers Care Balance Engineer Name Role Phone Edison Tam MD Primary Care Provider + [phone] Sheri Casey MD Unavailable [phone] Alphonso Billy MD Unavailable [phone] Roland Holt MD Unavailable [phone] Amita Ryan MD Unavailable [phone] Sid Lilly MD Unavailable Neda Boland RN Unavailable [phone] Edison Tam MD Unavailable [phone] Encounter Details Date Type Department Care Team (Late st Contact Info) Description 11/27/2016 [facility] Advice Initial Department Vannesa Dahl Social History Tobacco Use Types Packs/Day Years [...] Total Score: 14 05/12/ 016 7:50 AM 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 documented as of this encounter Care Teams Balance Engineer Relationship Specialty Start Date End Date Edison Tam MD [address] [place] [address] PCP - General Family Practice 07/23/14 Sheri Casey MD 420 [facility] 276 [place] [address] Pulmonary Disease 07/23/14 Alphonso Billy MD 420 [place] [address] Cardiology 08/12/14 12/26/17 Roland Holt MD 420 [place] [address] Resident Student in organized health care education/training program 05/12/15 09/24/18 Amita Ryan MD [address] [place] [address] [id number] [place] [address] Internal Medicine 12/19/15 Sid Lilly MD [address] [place] [address] [place] [address] Orthopaedic Surgery 02/22/16 Neda Boland, NANDINI Nurse Coordinator Neurology 02/23/16 09/01/18 Edison Tam MD [address] [place] [address] 574275 Assigned PCP 07/30/19 04/30/20 documented as of this encounter
--- OUTSIDE RECORDS SUMMARY | 2023-04-22 06:17 | XMS_ITS | Encounter Summary ---
Author Name Unknown Organization [place] Address [address] [place] [address]. [place] [address] Care Team Providers Care Crusher Dry Ground Mica Name Role Phone Edison Tam MD Primary Care Provider [phone] Sheri Casey MD Unavailable [phone] Alphonso Billy MD Unavailable [phone] Roland Holt MD Unavailable [phone] Amita Ryan MD Unavailable [phone] Sid Lilly MD Unavailable Neda Boland RN Unavailable Edison Tam MD Unavailable [phone] Encounter Details Date Type Department Care Team (Late st Contact Info) Description 05/22/2016 [facility] [address] [address] Charan Salazar MD 100 [facility] 208 [place] [address] Social History Tobacco Use Types Packs/Day Years [...] Total Score: 14 05/12/ 016 7:50 AM SUPPORT SERVICES REP documented as of this encounter Care Teams Crusher Dry Ground Mica Relationship Specialty Start Date End Date Edison Tam MD 909 [facility] FL 4 [place] [address] PCP - General Family Practice 07/23/14 Sheri Casey MD 420 [facility] 276 [place] [address] Pulmonary Disease 07/23/14 Alphonso Billy MD 420 [place] [address] Cardiology 08/12/14 12/26/17 Roland Holt MD 420 [place] [address] Resident Student in organized health care education/training program 05/12/15 09/24/18 Amita Ryan MD 909 [facility] [id number] [place], [place] 573875 Internal Medicine 12/19/15 Sid Lilly MD [address] [place] [address] Orthopaedic Surgery 02/22/16 Neda Boland, RN Nurse Coordinator Neurology 02/23/16 09/01/18 Edison Tam MD [address] [place] [address] Assigned PCP 07/30/19 04/30/20 documented as of this encounter
--- OUTSIDE RECORDS SUMMARY | 2023-04-22 06:17 | XMS_ITS | Encounter Summary ---
Author Name Unknown Organization [facility] Address [address] [place] [address]. [place] [address] Care Team Providers Care Electronics System Mechanic Name Role Phone Edison Tam MD Primary Care Provider [phone] Sheri Casey MD Unavailable [phone] Alphonso Billy MD Unavailable [phone] Roland Holt MD Unavailable Amita Ryan MD Unavailable Sid Lilly MD Unavailable Neda Boland RN Unavailable Edison Tam MD Unavailable Encounter Details Date Type Department Care Team (Late st Contact Info) Description 09/03/2017 [facility] Advice Health Endocrinology 909 [facility] [address] 3rd [place] [address] Laisha Moraes MD 420 [facility] 101 [place] [address] Social History Tobacco Use Types [...] Total Score: 3 01/29/20 17 10:28 AM 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 MANAGER documented as of this encounter Care Teams Electronics System Mechanic Relationship Specialty Start Date End Date Edison Tam MD 909 [facility] 4 [place] [address] PCP - General Family Practice 07/23/14 Sheri Casey MD 420 [facility] 276 [place], [place] 3236[address] Pulmonary Disease 07/23/14 Alphonso Billy MD 420 [place] [address] Cardiology 08/12/14 12/26/17 Roland Holt MD [address] [place] [address] Resident Student in organized health care education/training program 05/12/15 09/24/18 Amita Ryan MD 909 [facility] [id number] [place], [place] 396435 Internal Medicine 12/19/15 Sid Lilly MD [address] [place] [address] Orthopaedic Surgery 02/22/16 Neda Boland, RN Nurse Coordinator Neurology 02/23/16 09/01/18 Edison Tam MD [address] [place] [address] Assigned PCP 07/30/19 04/30/20 documented as of this encounter
--- OUTSIDE RECORDS SUMMARY | 2023-04-22 06:17 | XMS_ITS | Encounter Summary ---
Author Name Unknown Organization [place] Address [address] [place] [address] Care Team Providers Care General Medical Practitioner Name Role Phone Edison Tam MD Primary Care Provider [phone] Sheri Casey MD Unavailable Alphonso Billy MD Unavailable [phone] Roland Holt MD Unavailable [phone] Amita Ryan MD Unavailable Sid Lilly MD Unavailable Neda Boland RN Unavailable [phone] Edison Tam MD Unavailable Reason for Visit * Reason Onset Date Comments MyChart Communication 06/07/2015 Encounter Details Date Type Department Care Team (Latest Contact Info) Description 06/07/2015 [facility] 909 [facility] 4th [place] [address] Edison Tam MD 909 [facility] 4 [place] [address] MyChart Communication Social History Tobacco [...] Depression Total Score: 14 016 7:50 AM DIGITAL PRINTER documented as of this encounter Care Teams General Medical Practitioner Relationship Specialty Start Date End Date Edison Tam MD 909 [facility] 4 [place], [place] [address]85 PCP - General Family Practice 07/23/14 Sheri Casey MD 420 [facility] 276 [place], [place] 14[address]75 Pulmonary Disease 07/23/14 Alphonso Billy MD 420 [place], [place] [address] Cardiology 08/12/14 12/26/17 Roland Holt MD 420 [place], [place] 326165 Resident Student in organized health care education/training program 05/12/15 09/24/18 Amita Ryan MD 909 [facility] [id number] [place], [place] [address]44[address] Internal Medicine 12/19/15 Sid Lilly MD [address] [facility] R[address] [place], [place] 7[address] Orthopaedic Surgery 02/22/16 Neda Boland, RN Nurse Coordinator Neurology 02/23/16 09/01/18 Edison Tam MD [address] [address] Assigned PCP 07/30/19 04/30/20 documented as of this encounter
--- OUTSIDE RECORDS SUMMARY | 2023-04-22 06:17 | XMS_ITS | Encounter Summary ---
Author Name Unknown Organization [place] Address [address] [place] [address] Care Team Providers Care Acting Manager Name Role Phone Edison Tam MD Primary Care Provider [phone]- [phone] Sheri Casey MD Unavailable [phone] Alphonso Billy MD Unavailable [phone] Roland Holt MD Unavailable Amita Ryan MD Unavailable Sid Lilly MD Unavailable Neda Boland RN Unavailable [phone] Edison Tam MD Unavailable [phone] Reason for Referral * Consultation - Closed Specialty Diagnoses / Procedures Referred By Odilia jin Referred To Contact Diagnoses Generalized muscle weakness Numbness and tingling of left leg Carbon monoxide exposure 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 Call member services at your health plan with any benefit or coverage questions. Please bring the following with you to your appointment: (1) Any X-Rays, CTs or MRIs which have been performed. Contact the facility where they were done to arrange for forklift picker prior to your scheduled appointment. (2) List of current medications (3) This referral request (4) Any documents/labs given to you for this referral ORT COORDINATOR * CV Cardio consult - Closed Specialty Diagnoses / Procedures Referred By Odilia jin Referred To Contact Diagnoses Exertional dyspnea Generalized muscle weakness Carbon monoxide exposure Edison Tam MD [address] [place] [address] Referral ID Status Reason Start Date Expiration Date Visits Re quested Visits Authorized [id number] Closed 01/23/2016 01/22/2017 1 1 Comments Your provider has referred you to: [facility]: [facility] Clin[facility] and [facility] [email or web address] Please be aware that coverage of these services is subject to the terms and limitations of your health insurance plan. Call member services at your health plan with any benefit or coverage questions. Type of Referral: New Cardiology Consult Timeframe requested: Within 1 month Please bring the following to your appointment: >> Any x-rays, CTs or MRIs which have been performed. Contact the facility where they were done to arrange for forklift picker prior to your scheduled appointment. >> List of current medications >> This referral request >> Any documents/labs given to you for this referral ORT COORDINATOR Reason for Visit * Reason Onset Date Comments MyChart Communication 01/19/2016 Referral 01/19/2016 cardiology, neur ology Encounter Details Date Type Department Care Team (Late st Contact Info) Description 01/19/2016 [facility] 9 [facility] 4th [place] [address] Edison Tam MD [address] [place] [address] Jarvishart Communication; Referral (cardiolog... 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) Ordered: 01/23/2016 documented as of this encounter Visit Diagnoses Diagnosis Exertional dyspnea- Primary Other dyspnea and respiratory abnormality Generalized muscle weakness Muscle weakness (generalized) Numbness and tingling of left leg Disturbance of skin sensation Carbon monoxide exposure Contact with and (suspected) exposure to other potentially hazardous substances Connective tissue disorder (H24) Unspecified diffuse connective tissue disease 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 Crohn's disease of both small and large intestine with complication (H) Regional enteritis of small intestine with large intestine documented in this encounter Additional Health Concerns Assessment Noted Time PHQ-9 Depression Total Score: 14 016 7:50 AM SUPPORT COORDINATOR documented as of this encounter Care Teams Acting Manager Relationship Specialty Start Date End Date Edison Tam MD [address] [place] [address] PCP - General Family Practice 07/23/14 Sheri Casey MD 420 [facility] 276 [place] [address] Pulmonary Disease 07/23/14 Alphonso Billy MD 420 [place] [address] Cardiology 08/12/14 12/26/17 Roland Holt MD 420 [place] [address] Resident Student in organized health care education/training program 05/12/15 09/24/18 Amita Ryan MD [address] [facility] [id number] [place], [place] 148525 Internal Medicine 12/19/15 Sid Lilly MD [address] [place], [place] [address] Orthopaedic Surgery 02/22/16 Neda Boland, RN Nurse Coordinator Neurology 02/23/16 09/01/18 Edison Tam MD [address] [facility] FL 4 [place], [place] 6[address]25 Assigned PCP 07/30/19 04/30/20 documented as of this encounter
--- OUTSIDE RECORDS SUMMARY | 2023-04-22 06:17 | XMS_ITS | Encounter Summary ---
Author Name Unknown Organization [facility] Address [address] [place] [address]. [place] [address] Care Team Providers Care Bull Float Finisher Name Role Phone Edison Tam MD Primary Care Provider [phone] Sheri Casey MD Unavailable [phone] Alphonso Billy MD Unavailable [phone] Roland Holt MD Unavailable Amita Ryan MD Unavailable [phone] Sid Lilly MD Unavailable [phone] Neda Boland RN Unavailable Edison Tam MD Unavailable Encounter Details Date Type Department Care Team (Late st Contact Info) Description 01/24/2016 [facility] [address] [address] Amita Ryan MD [address] [place] [id number] [address] Social History Tobacco Use Types [...] Total Score: 14 05/12/ 016 7:50 AM OPERATIONS PROJECT MANAGER documented as of this encounter Care Teams Bull Float Finisher Relationship Specialty Start Date End Date Edison Tam MD [address] [facility] [address] 4 [place] [address] PCP - General Family Practice 07/23/14 Sheri Casey MD 420 [facility] 276 [place], [place] [address] Pulmonary Disease 07/23/14 Alphonso Billy MD 420 [place] [address] Cardiology 08/12/14 12/26/17 Roland Holt MD 420 [place], [place] 562485 Resident Student in organized health care education/training program 05/12/15 09/24/18 Amita Ryan MD [address] [facility] [id number] [place], [place] [address] Internal Medicine 12/19/15 Sid Lilly MD [address] [facility] R200 [place] [address] Orthopaedic Surgery 02/22/16 Neda Boland, RN Nurse Coordinator Neurology 02/23/16 09/01/18 Edison Tam MD [address] [place] [address] Assigned PCP 07/30/19 04/30/20 documented as of this encounter
--- OUTSIDE RECORDS SUMMARY | 2023-04-22 06:18 | XMS_ITS | Encounter Summary ---
Author Name Unknown Organization [facility] Address [address] [place] [address] Care Team Providers Care Rv Servicer Name Role Phone Edison Tam MD Primary Care Provider Edison Tam MD Primary Care Provider [phone] Sheri Casey MD Unavailable [phone] Alphonso Billy MD Unavailable [phone] Roland Holt MD Unavailable Amita Ryan MD Unavailable [phone] Sid Lilly MD Unavailable Neda Boland RN Unavailable Edison Tam MD Unavailable [phone] Encounter Details Date Type Department Care Team (Late st Contact Info) Description 08/11/2013 [facility] Medical Advice [facility] 6th Floor, Clinic 6B [facility] 88 516 [place] [address] Pj Packer MD [address] [place] [address] 250 [place] [address] Social History Tobacco Use Types Packs/Day Years Used Date Smoking Tobacco: Former Cigarettes 1 18 Smokeless Tobacco: Former Quit: 09/20/1991 Alcohol Use [...] on filedocumented in this encounter Care Teams Rv Servicer Relationship Specialty Start Date End Date Edison Tam MD [address] [place] [address] PCP - General Family Practice 09/21/11 07/22/14 Edison Tam MD [address] [place] [address] PCP - General Family Practice 07/23/14 Sheri Casey MD [address] [place] [address] 276 [place] [address] Pulmonary Disease 07/23/14 Alphonso Billy MD [address] [place] [address] Cardiology 08/12/14 12/26/17 Roland Holt MD [address] [place] [address] Resident Student in organized health care education/training program 05/12/15 09/24/18 Amita Ryan MD [address] [place], [place] [id number] [address] Internal Medicine 12/19/15 Sid Lilly MD [address] [place] [address] [place] [address] Orthopaedic Surgery 02/22/16 Neda Boland RN Nurse Coordinator Neurology 02/23/16 09/01/18 Edison Tam MD [address] [place] [address] 4 [place] [address] Assigned PCP 07/30/19 2 documented as of this encounter
--- OUTSIDE RECORDS SUMMARY | 2023-04-22 06:18 | XMS_ITS | Encounter Summary ---
Author Name Unknown Organization [facility] Address [address] [place] [address] Care Team Providers Care Financial Manager Name Role Phone Edison Tam MD Primary Care Provider Edison Tam MD Primary Care Provider Sheri Casey MD Unavailable [phone] Alphonso Billy MD Unavailable [phone] Roland Holt MD Unavailable [phone] Amita Ryan MD Unavailable Sid Lilly MD Unavailable Neda Boland RN Unavailable [phone] Edison Tam MD Unavailable [phone] Encounter Details Date Type Department Care Team (Late st Contact Info) Description 05/10/2014 [facility] Medicine GI - 1E [facility] 1st Floor, Clinic [address] [place] [phone] Charan Salazar MD 100 [facility] 208 [place] [address] Social History Tobacco Use Types Packs/Day Years [...] filedocumented in this encounter Care Teams Financial Manager Relationship Specialty Start Date End Date Edison Tam MD [address] [place] [address] PCP - General Family Practice 09/21/11 07/22/14 Edison Tam MD [address] [place] [address] PCP - General Family Practice 07/23/14 Sheri Casey MD [address] [place] [address] 276 [place] [address] Pulmonary Disease 07/23/14 Alphonso Billy MD [address] [place] [address] Cardiology 08/12/14 12/26/17 Roland Holt MD [address] [place] [address] Resident Student in organized health care education/training program 05/12/15 09/24/18 Amita Ryan MD [address] [place] [id number] [address] Internal Medicine 12/19/15 Sid Lilly MD [address] [place] [address], [place] [address] Orthopaedic Surgery 02/22/16 Neda Boland, NANDINI Nurse Coordinator Neurology 02/23/16 09/01/18 Edison Tam MD [address] [place] [address] 4 [place], [place] 431735 Assigned PCP 07/30/19 2 documented as of this encounter
--- OUTSIDE RECORDS SUMMARY | 2023-04-22 06:18 | XMS_ITS | Encounter Summary ---
Author Name Unknown Organization [facility] Address [address] [place] [address] Care Team Providers Care Steel Chipper Name Role Phone Edison Tam MD Primary Care Provider Edison Tam MD Primary Care Provider [phone] Sheri Casey MD Unavailable [phone] Alphonso Billy MD Unavailable [phone] Roland Holt MD Unavailable Amita Ryan MD Unavailable [phone] Sid Lilly MD Unavailable [phone] Neda Boland RN Unavailable Edison Tam MD Unavailable [phone] Encounter Details Date Type Department Care Team (Late st Contact Info) Description 07/20/2013 MyC Medical Advice [facility] 6th Floor, Clinic 6B [facility] 88 516 [place] [address] Pj Packer MD [address] [place] [address] 250 [place] [address] Social History Tobacco Use Types [...] filedocumented in this encounter Care Teams Steel Chipper Relationship Specialty Start Date End Date Edison Tam MD [address] [place] [address] PCP - General Family Practice 09/21/11 07/22/14 Edison Tam MD [address] [place] [address] PCP - General Family Practice 07/23/14 Sheri Casey MD [address] [place] [address] 276 [place] [address] Pulmonary Disease 07/23/14 Alphonso Billy MD [address] [place] [address] Cardiology 08/12/14 12/26/17 Roland Holt MD [address] [place] [address] Resident Student in organized health care education/training program 05/12/15 09/24/18 Amita Ryan MD [address] [place] [id number] [address] Internal Medicine 12/19/15 Sid Lilly MD [address] [place] [address] [place] [address] Orthopaedic Surgery 02/22/16 Neda Boland RN Nurse Coordinator Neurology 02/23/16 09/01/18 Edison Tam MD [address] [place] [address] 4 [place] [address] Assigned PCP 07/30/19 2 documented as of this encounter
--- OUTSIDE RECORDS SUMMARY | 2023-04-22 06:18 | XMS_ITS | Encounter Summary ---
Author Name Unknown Organization [facility] Address [address] [place] [address]. [place] [address] Care Team Providers Care Bindery Worker Name Role Phone Edison Tam MD Primary Care Provider [phone] Sheri Casey MD Unavailable [phone] Alphonso Billy MD Unavailable [phone] Roland Holt MD Unavailable Amita Ryan MD Unavailable Sid Lilly MD Unavailable Neda Boland RN Unavailable Edison Tam MD Unavailable [phone] Encounter Details Date Type Department Care Team (Late st Contact Info) Description 08/11/2014 [facility] Medical Advice [facility] 3rd Floor, Clinic [address]A [address] 88 [place] [phone] Edison Tam MD 909 [facility] 4 [place] [address] Social History Tobacco Use Types Packs/Day Years [...] on filedocumented in this encounter Care Teams Bindery Worker Relationship Specialty Start Date End Date Edison Tam MD 909 [facility] [address] 4 [place], [place] 8934[address] PCP - General Family Practice 07/23/14 Sheri Casey MD 420 [facility] 276 [place], [place] [address] Pulmonary Disease 07/23/14 Alphonso Billy MD 420 [place], [place] 0[address] Cardiology 08/12/14 12/26/17 Roland Holt MD 420 [place], [place] 285675 Resident Student in organized health care education/training program 05/12/15 09/24/18 Amita Ryan MD 9 [facility] [id number] [place], [place] [address]28[address] Internal Medicine 12/19/15 Sid Lilly MD [address] [place] [address] 9[address] Orthopaedic Surgery 02/22/16 Neda Boland, RN Nurse Coordinator Neurology 02/23/16 09/01/18 Edison Tam MD [address] [address] Assigned PCP 07/30/19 04/30/20 documented as of this encounter
--- OUTSIDE RECORDS SUMMARY | 2023-04-22 06:18 | XMS_ITS | Encounter Summary ---
Author Name Unknown Organization [facility] Address [address] [place] [address]. [place] [address] Care Team Providers Care Wet Cleaner Machine Name Role Phone Edison Tam MD Primary Care Provider [phone] Sheri Casey MD Unavailable [phone] Alphonso Billy MD Unavailable [phone] Roland Holt MD Unavailable [phone] Amita Ryan MD Unavailable [phone] Sid Lilly MD Unavailable Neda Boland RN Unavailable Edison Tam MD Unavailable [phone] Encounter Details Date Type Department Care Team (Late st Contact Info) Description 12/15/2014 MyC Medical Advice [facility] 6th Floor, Clinic 6B [facility] 88 516 [place] [phone] Pj Packer MD [address] [place] [address] 250 [place], [place] 8[address]295 Social History Tobacco Use Types Packs/Day Years [...] on filedocumented in this encounter Care Teams Wet Cleaner Machine Relationship Specialty Start Date End Date Edison Tam MD 909 [facility] [address] 4 [place], [place] [address] PCP - General Family Practice 07/23/14 Sheri Casey MD [address] [place] [address] 276 [place], [place] 374365 Pulmonary Disease 07/23/14 Alphonso Billy MD [address] [place] [address] 269875 Cardiology 08/12/14 12/26/17 Roland Holt MD [address] [place] [address] 998805 Resident Student in organized health care education/training program 05/12/15 09/24/18 Amita Ryan MD 9 [facility] [id number] [place], [place] 1798[address] Internal Medicine 12/19/15 Sid Lilly MD [address] [place] [address] 150674 Orthopaedic Surgery 02/22/16 Neda Boland, NANDINI Nurse Coordinator Neurology 02/23/16 09/01/18 Edison Tam MD [address] [address] Assigned PCP 07/30/19 2 documented as of this encounter
--- OUTSIDE RECORDS SUMMARY | 2023-04-22 06:18 | XMS_ITS | Encounter Summary ---
Author Name Unknown Organization [place] Address [address] [place] [address] Care Team Providers Care Industrial Technology Education Teacher Name Role Phone Edison Tam MD Primary Care Provider Edison Tam MD Primary Care Provider Sheri Casey MD Unavailable [phone] Alphonso Billy MD Unavailable [phone] Roland Holt MD Unavailable Amita Ryan MD Unavailable Sid Lilly MD Unavailable Neda Boland RN Unavailable Edison Tam MD Unavailable [phone] Encounter Details Date Type Department Care Team (Late st Contact Info) Description 09/22/2013 [facility] Medicine GI - 1E [facility] 1st Floor, Clinic [address] [place] [phone] Charan Salazar MD 100 [facility] 208 [place] [address] Social History Tobacco Use Types Packs/Day Years [...] on filedocumented in this encounter Care Teams Industrial Technology Education Teacher Relationship Specialty Start Date End Date Edison Tam MD [address] [place] [address] PCP - General Family Practice 09/21/11 07/22/14 Edison Tam MD [address] [place] [address] PCP - General Family Practice 07/23/14 Sheri Casey MD [address] [place] [address] 276 [place] [address] Pulmonary Disease 07/23/14 Alphonso Billy MD [address] [place] [address] Cardiology 08/12/14 12/26/17 Roland Holt MD [address] [place] [address] Resident Student in organized health care education/training program 05/12/15 09/24/18 Amita Ryan MD [address] [place] [address] [address] Internal Medicine 12/19/15 Sid Lilly MD [address] [place] [address], [place] [address] Orthopaedic Surgery 02/22/16 Neda Boland, NANDINI Nurse Coordinator Neurology 02/23/16 09/01/18 Edison Tam MD [address] [place] [address] 4 [place], [place] 597795 Assigned PCP 07/30/19 2 documented as of this encounter
--- OUTSIDE RECORDS SUMMARY | 2023-04-22 06:18 | XMS_ITS | Encounter Summary ---
Author Name Unknown Organization [facility] Address [address] [place] [address] Care Team Providers Care Senior Drupal Developer Name Role Phone Edison Tam MD Primary Care Provider Edison Tam MD Primary Care Provider Sheri Casey MD Unavailable [phone] Alphonso Billy MD Unavailable [phone] Roland Holt MD Unavailable Amita Ryan MD Unavailable Sid Lilly MD Unavailable Neda Boland RN Unavailable [phone] Edison Tam MD Unavailable [phone] Encounter Details Date Type Department Care Team (Late st Contact Info) Description 02/13/2013 [facility] [place] [facility] [place] GI - 1E [facility] 1st Floor, Clinic [address] [place] [address] [phone] Rebekah Mason, RN Social History Tobacco Use Types Packs/Day [...] filedocumented in this encounter Care Teams Senior Drupal Developer Relationship Specialty Start Date End Date Edison Tam MD 9 [facility] 4 [place] [address] PCP - General Family Practice 09/21/11 07/22/14 Edison Tam MD [address] [place] [address] 4 [place], [place] 491855 PCP - General Family Practice 07/23/14 Sheri Casey MD 420 [facility] 276 [place], [place] 652115 Pulmonary Disease 07/23/14 Alphonso Billy MD 420 [place], [place] 654675 Cardiology 08/12/14 12/26/17 Roland Holt MD 420 [place], [place] 221515 Resident Student in organized health care education/training program 05/12/15 09/24/18 Amita Ryan MD 909 [facility] [id number] [place], [place] 632155 Internal Medicine 12/19/15 Sid Lilly MD 2512 [address] [facility] R200 [place], [place] 471504 Orthopaedic Surgery 02/22/16 Neda Boland, RN Nurse Coordinator Neurology 02/23/16 09/01/18 Edison Tam MD [address] [address] Assigned PCP 07/30/19 04/30/20 documented as of this encounter
--- OUTSIDE RECORDS SUMMARY | 2023-04-22 06:18 | XMS_ITS | Encounter Summary ---
Author Name Unknown Organization [facility] Address [address] [place] [address] 6[address] Care Team Providers Care Scalp Treatment Operator Name Role Phone Edison Tam MD Primary Care Provider Edison Tam MD Primary Care Provider Sheri Casey MD Unavailable [phone] Alphonso Billy MD Unavailable [phone] Roland Holt MD Unavailable [phone] Amita Ryan MD Unavailable Sid Lilly MD Unavailable Neda Boland RN Unavailable [phone] Edison Tam MD Unavailable [phone] Encounter Details Date Type Department Care Team (Late st Contact Info) Description 04/13/2013 [facility] Medicine GI - 1E [facility] 1st Floor, Clinic [address] [place] [address] [phone] Charan Salazar MD 100 [facility] 208 [place] [address] Social History Tobacco Use Types Packs/Day Years [...] on filedocumented in this encounter Care Teams Scalp Treatment Operator Relationship Specialty Start Date End Date Edison Tam MD [address] [place] [address] PCP - General Family Practice 09/21/11 07/22/14 Edison Tam MD [address] [place] [address] PCP - General Family Practice 07/23/14 Sheri Casey MD [address] [place] [address] 276 [place] [address] Pulmonary Disease 07/23/14 Alphonso Billy MD [address] [place] [address] Cardiology 08/12/14 12/26/17 Roland Holt MD [address] [place] [address] Resident Student in organized health care education/training program 05/12/15 09/24/18 Amita Ryan MD [address] [place], [place] [address]CJ [place] [address] Internal Medicine 12/19/15 Sid Lilly MD [address] [place] [address], [place] [address] Orthopaedic Surgery 02/22/16 Neda Boland, NANDINI Nurse Coordinator Neurology 02/23/16 09/01/18 Edison Tam MD [address] [place] [address] 4 [place], [place] 966355 Assigned PCP 07/30/19 2 documented as of this encounter
--- OUTSIDE RECORDS SUMMARY | 2023-04-22 06:18 | XMS_ITS | Encounter Summary ---
Author Name Unknown Organization [facility] Address [address] [place] [address] Care Team Providers Care Deputy Commonwealth'S Attorney Name Role Phone Edison Tam MD Primary Care Provider Edison Tam MD Primary Care Provider Sheri Casey MD Unavailable [phone] Alphonso Billy MD Unavailable [phone] Roland Holt MD Unavailable [phone] Amita Ryan MD Unavailable Sid Lilly MD Unavailable [phone] Neda Boland RN Unavailable [phone] Edison Tam MD Unavailable [phone] Encounter Details Date Type Department Care Team (Late st Contact Info) Description 04/16/2013 [facility] 1st Floor, [address] [address] Marisol Hathaway MD [address] [address] Social History Tobacco Use Types Packs/Day Years [...] filedocumented in this encounter Care Teams Deputy Commonwealth'S Attorney Relationship Specialty Start Date End Date Edison Tam MD [address] [place] [address] PCP - General Family Practice 09/21/11 07/22/14 Edison Tam MD [address] [place] [address] PCP - General Family Practice 07/23/14 Sheri Casey MD [address] [place] [address] 276 [place] [address] Pulmonary Disease 07/23/14 Alphonso Billy MD [address] [place] [address] Cardiology 08/12/14 12/26/17 Roland Holt MD [address] [place] [address] Resident Student in organized health care education/training program 05/12/15 09/24/18 Amita Ryan MD [address] [place], [place] [address] [address] Internal Medicine 12/19/15 Sid Lilly MD [address] [place] [address] R200 [place] [address] Orthopaedic Surgery 02/22/16 Neda Boland RN Nurse Coordinator Neurology 02/23/16 09/01/18 Edison Tam MD [address] [place] [address] [place] 4 [place] [address] Assigned PCP 07/30/19 2 documented as of this encounter
--- OUTSIDE RECORDS SUMMARY | 2023-04-22 06:18 | XMS_ITS | Encounter Summary ---
Author Name Unknown Organization [facility] Address [address] [place] [address]651 Care Team Providers Care Dye Box Operator Name Role Phone Edison Tam MD Primary Care Provider Edison Tam MD Primary Care Provider Sheri Casey MD Unavailable [phone] Alphonso Billy MD Unavailable [phone] Roland Holt MD Unavailable Amita Ryan MD Unavailable [phone] Sid Lilly MD Unavailable Neda Boland RN Unavailable [phone] Edison Tam MD Unavailable [phone] Encounter Details Date Type Department Care Team (Late st Contact Info) Description 04/14/2013 [facility] Medicine GI - 1E [facility] 1st Floor, Clinic [address]E [address] [place] [address] [phone] Charan Salazar MD 100 [facility] 208 [place] [address] Social History Tobacco Use Types Packs/Day Years [...] on filedocumented in this encounter Care Teams Dye Box Operator Relationship Specialty Start Date End Date Edison Tam MD [address] [place] [address] PCP - General Family Practice 09/21/11 07/22/14 Edison Tam MD [address] [place] [address] PCP - General Family Practice 07/23/14 Sheri Casey MD [address] [place] [address] 276 [place] [address] Pulmonary Disease 07/23/14 Alphonso Billy MD [address] [place] [address] Cardiology 08/12/14 12/26/17 Roland Holt MD [address] [place] [address] Resident Student in organized health care education/training program 05/12/15 09/24/18 Amita Ryan MD [address] [place] [id number] [address] Internal Medicine 12/19/15 Sid Lilly MD [address] [place] [address], [place] [address] Orthopaedic Surgery 02/22/16 Neda Boland, NANDINI Nurse Coordinator Neurology 02/23/16 09/01/18 Edison Tam MD [address] [place] [address] 4 [place], [place] 196735 Assigned PCP 07/30/19 2 documented as of this encounter
--- OUTSIDE RECORDS SUMMARY | 2023-04-22 06:18 | XMS_ITS | Encounter Summary ---
Author Name Unknown Organization [facility] Address [address] [place] [address] Care Team Providers Care Mri Technician Name Role Phone Edison Tam MD Primary Care Provider Edison Tam MD Primary Care Provider [phone] Sheri Casey MD Unavailable [phone] Alphonso Billy MD Unavailable [phone] Roland Holt MD Unavailable Amita Ryan MD Unavailable [phone] Sid Lilly MD Unavailable Neda Boland RN Unavailable Edison Tam MD Unavailable [phone] Encounter Details Date Type Department Care Team (Late st Contact Info) Description 07/20/2013 [facility] 6th Floor, Clinic 6B [facility] 88 516 [place] [address] Pj Packer MD [address] [place] [address] 250 [place] [address] Social History Tobacco Use Types [...] on filedocumented in this encounter Care Teams Mri Technician Relationship Specialty Start Date End Date Edison Tam MD [address] [place] [address] PCP - General Family Practice 09/21/11 07/22/14 Edison Tam MD [address] [place] [address] PCP - General Family Practice 07/23/14 Sheri Casey MD [address] [place] [address] 276 [place] [address] Pulmonary Disease 07/23/14 Alphonso Billy MD [address] [place] [address] Cardiology 08/12/14 12/26/17 Roland Holt MD [address] [place] [address] 113[address] Resident Student in organized health care education/training program 05/12/15 09/24/18 Amita Ryan MD [address] [place], [place] [address] [address] Internal Medicine 12/19/15 Sid Lilly MD [address] [place] [address] [place] [address] Orthopaedic Surgery 02/22/16 Neda Boland RN Nurse Coordinator Neurology 02/23/16 09/01/18 Edison Tam MD [address] [place] [address] 4 [place] [address] Assigned PCP 07/30/19 2 documented as of this encounter
--- OUTSIDE RECORDS SUMMARY | 2023-04-22 06:18 | XMS_ITS | Encounter Summary ---
Author Name Unknown Organization [facility] Address [address] [place] [address] Care Team Providers Care Presentation Designer Name Role Phone Edison Tam MD Primary Care Provider Edison Tam MD Primary Care Provider Sheri Casey MD Unavailable [phone] Alphonso Billy MD Unavailable [phone] Roland Holt MD Unavailable Amita Ryan MD Unavailable Sid Lilly MD Unavailable [phone] Neda Boland RN Unavailable [phone] Edison Tam MD Unavailable [phone] Encounter Details Date Type Department Care Team (Late st Contact Info) Description 01/26/2013 [facility] Medicine GI - 1E [facility] 1st Floor, Clinic [address] [place] [address] [phone] Charan Salazar MD 100 [facility] 208 [place] [address] Social History Tobacco Use Types Packs/Day Years [...] on filedocumented in this encounter Care Teams Presentation Designer Relationship Specialty Start Date End Date Edison Tam MD [address] [place] [address] PCP - General Family Practice 09/21/11 07/22/14 Edison Tam MD [address] [place] [address] PCP - General Family Practice 07/23/14 Sheri Casey MD [address] [place] [address] 276 [place] [address] Pulmonary Disease 07/23/14 Alphonso Billy MD [address] [place] [address] Cardiology 08/12/14 12/26/17 Roland Holt MD [address] [place] [address] Resident Student in organized health care education/training program 05/12/15 09/24/18 Amita Ryan MD [address] [place] [id number] [address] Internal Medicine 12/19/15 Sid Lilly MD [address] [place] [address], [place] [address] Orthopaedic Surgery 02/22/16 Neda Boland, NANDINI Nurse Coordinator Neurology 02/23/16 09/01/18 Edison Tam MD [address] [place] [address] 4 [place], [place] 159355 Assigned PCP 07/30/19 2 documented as of this encounter
--- OUTSIDE RECORDS SUMMARY | 2023-04-22 06:18 | XMS_ITS | Encounter Summary ---
Author Name Unknown Organization [facility] Address [address] [place] [address] Care Team Providers Care Shipping Technician Name Role Phone Edison Tam MD Primary Care Provider [phone] Sheri Casey MD Unavailable [phone] Alphonso Billy MD Unavailable [phone] Roland Holt MD Unavailable Amita Ryan MD Unavailable [phone] Sid Lilly MD Unavailable Neda Boland RN Unavailable Edison Tam MD Unavailable Reason for Visit * Reason Onset Date Comments Pt. Information/instruction 08/11/2014 Encounter Details Date Type Department Care Team (Latest Contact Info) Description 08/11/2014 [facility] 3rd Floor, Clinic [address]A [address] 88 [place] [address] Edison Tam MD 909 [facility] 4 [place] [address] Pt. Information/instruct ion Social History Tobacco Use Types Packs/Day Years [...] on filedocumented in this encounter Care Teams Shipping Technician Relationship Specialty Start Date End Date Edison Tam MD 909 [facility] FL 4 [place] [address] PCP - General Family Practice 07/23/14 Sheri Casey MD 420 [facility] 276 [place], [place] 523455 Pulmonary Disease 07/23/14 Alphonso Billy MD 420 [place] [address] Cardiology 08/12/14 12/26/17 Roland Holt MD [address] [place] [address] Resident Student in organized health care education/training program 05/12/15 09/24/18 Amita Ryan MD 9 [facility] [id number] [place], [place] 836395 Internal Medicine 12/19/15 Sid Lilly MD [facility] [address] [address] Orthopaedic Surgery 02/22/16 Neda Boland, RN Nurse Coordinator Neurology 02/23/16 09/01/18 Edison Tam MD [address] [place] [address] Assigned PCP 07/30/19 04/30/20 documented as of this encounter
--- OUTSIDE RECORDS SUMMARY | 2023-04-22 06:18 | XMS_ITS | Encounter Summary ---
Author Name Unknown Organization [facility] Address [address] [place] [address] Care Team Providers Care Social Science Research Assistant Name Role Phone Edison Tam MD Primary Care Provider Edison Tam MD Primary Care Provider Sheri Casey MD Unavailable [phone] Alphonso Billy MD Unavailable [phone] Roland Holt MD Unavailable [phone] Amita Ryan MD Unavailable Sdi Lilly MD Unavailable Neda Boland RN Unavailable [phone] Edison Tam MD Unavailable [phone] Encounter Details Date Type Department Care Team (Late st Contact Info) Description 01/20/2013 [facility] [place] [facility] Medicine GI - 1E [facility] 1st Floor, Clinic [address]E [address] [place] [address] [phone] Rebekah Mason, RN Social History Tobacco Use [...] filedocumented in this encounter Care Teams Social Science Research Assistant Relationship Specialty Start Date End Date Edison Tam MD 9 [facility] 4 [place] [address] PCP - General Family Practice 09/21/11 07/22/14 Edison Tam MD [address] [place] [address] 4 [place], [place] 461585 PCP - General Family Practice 07/23/14 Sheri Casey MD 420 [facility] 276 [place], [place] 766635 Pulmonary Disease 07/23/14 Alphonso Billy MD 420 [place], [place] 299975 Cardiology 08/12/14 12/26/17 Roland Holt MD 420 [place], [place] 117055 Resident Student in organized health care education/training program 05/12/15 09/24/18 Amita Ryan MD 909 [facility] [id number] [place], [place] 938795 Internal Medicine 12/19/15 Sid Lilly MD 2512 [address] [facility] R200 [place], [place] 388774 Orthopaedic Surgery 02/22/16 Neda Boland, RN Nurse Coordinator Neurology 02/23/16 09/01/18 Edison Tam MD [address] [address] Assigned PCP 07/30/19 04/30/20 documented as of this encounter
--- OUTSIDE RECORDS SUMMARY | 2023-04-22 06:18 | XMS_ITS | Encounter Summary ---
Author Name Unknown Organization [facility] Address [address] [place] [address] Care Team Providers Care Accountant Controller Name Role Phone Edison Tam MD Primary Care Provider [phone] Sheri Casey MD Unavailable [phone] Alphonso Billy MD Unavailable [phone] Roland Holt MD Unavailable Amita Ryna MD Unavailable [phone] Sid Lilly MD Unavailable Neda Boland RN Unavailable Edison Tam MD Unavailable [phone] Encounter Details Date Type Department Care Team (Late st Contact Info) Description 12/29/2014 [facility] [place] GI - 1E [facility] 1st Floor, Clinic 1E 6 [place] [address] Charan Salazar MD 100 [facility] 208 [place] [address] Social History Tobacco Use Types Packs/Day Years [...] on filedocumented in this encounter Care Teams Accountant Controller Relationship Specialty Start Date End Date Edison Tam MD 909 [facility] FL 4 [place], [place] 517005 PCP - General Family Practice 07/23/14 Sheri Casey MD 420 [facility] 276 [place], [place] 790155 Pulmonary Disease 07/23/14 Alphonso Billy MD [address] [place] [address] 898965 Cardiology 08/12/14 12/26/17 Roland Holt MD [address] [place] [address] 602705 Resident Student in organized health care education/training program 05/12/15 09/24/18 Amita Ryan MD 9 [facility] [id number] [place], [place] 483395 Internal Medicine 12/19/15 Sid Lilly MD [facility] [address] 066704 Orthopaedic Surgery 02/22/16 Neda Boland, RN Nurse Coordinator Neurology 02/23/16 09/01/18 Edison Tam MD [address] [address] Assigned PCP 07/30/19 04/30/20 documented as of this encounter
--- OUTSIDE RECORDS SUMMARY | 2023-04-22 06:18 | XMS_ITS | Encounter Summary ---
Author Name Unknown Organization [facility] Address [address] [place] [address] 14790 Care Team Providers Care Entertainment Reporter Name Role Phone Edison Tam MD Primary Care Provider + [phone] Edison Tam MD Primary Care Provider + [phone] Sheri Casey MD Unavailable [phone] Alphonso Billy MD Unavailable [phone] Roland Holt MD Unavailable [phone] Amita Ryan MD Unavailable [phone] Sid Lilly MD Unavailable Neda Boland RN Unavailable [phone] Edison Tam MD Unavailable [phone] Encounter Details Date Type Department Care Team (Late st Contact Info) Description 03/24/2013 [facility] History Tobacco Use Types Packs/Day Years [...] on filedocumented in this encounter Care Teams Entertainment Reporter Relationship Specialty Start Date End Date Edison Tam MD [address] [place] [address] 13688 PCP - General Family Practice 09/21/11 07/22/14 Edison Tam MD [address] [place] [address] 6[address] PCP - General Family Practice 07/23/14 Sheri Casey MD [address] [place] [address] 276 [place], [place] 729225 Pulmonary Disease 07/23/14 Alphonso Billy MD [address] [place] [address] 751525 Cardiology 08/12/14 12/26/17 Roland Holt MD [address] [place] [address] 187935 Resident Student in organized health care education/training program 05/12/15 09/24/18 Amita Ryan MD [address] [place] [address] [id number] [place] [address] Internal Medicine 12/19/15 Sid Lilly MD [address] [place] [address] 823184 Orthopaedic Surgery 02/22/16 Neda Boland, RN Nurse Coordinator Neurology 02/23/16 09/01/18 Edison Tam MD [address] [address] Assigned PCP 07/30/19 04/30/20 documented as of this encounter
--- OUTSIDE RECORDS SUMMARY | 2023-04-22 06:18 | XMS_ITS | Encounter Summary ---
Author Name Unknown Organization [facility] Address [address] [place] [address] Care Team Providers Care Airplane Rental Clerk Name Role Phone Edison Tam MD Primary Care Provider Edison Tam MD Primary Care Provider Sheri Casey MD Unavailable [phone] Alphonso Billy MD Unavailable [phone] Roland Holt MD Unavailable Amita Ryan MD Unavailable [phone] Sid Lilly MD Unavailable Neda Boland RN Unavailable [phone] Edison Tam MD Unavailable [phone] Encounter Details Date Type Department Care Team (Late st Contact Info) Description 06/18/2014 [facility] [place] [facility] Medicine GI - 1E [facility] 1st Floor, Clinic [address]E [address] [place] [address] [phone] Charan Salazar MD 100 [facility] 208 [place] [address] Social History Tobacco Use Types Packs/Day Years [...] on filedocumented in this encounter Care Teams Airplane Rental Clerk Relationship Specialty Start Date End Date Edison Tam MD [address] [place] [address] PCP - General Family Practice 09/21/11 07/22/14 Edison Tam MD [address] [place] [address] PCP - General Family Practice 07/23/14 Sheri Casey MD [address] [place] [address] 276 [place] [address] Pulmonary Disease 07/23/14 Alphonso Billy MD [address] [place] [address] Cardiology 08/12/14 12/26/17 Roland Holt MD [address] [place] [address] 318[address] Resident Student in organized health care education/training program 05/12/15 09/24/18 Amita Ryan MD [address] [place] [address] [address] Internal Medicine 12/19/15 Sid Lilly MD [address] [place] [address], [place] [address] Orthopaedic Surgery 02/22/16 Neda Boland, NANDINI Nurse Coordinator Neurology 02/23/16 09/01/18 Edison Tam MD [address] [place] [address] 4 [place], [place] 819925 Assigned PCP 07/30/19 2 documented as of this encounter
--- OUTSIDE RECORDS SUMMARY | 2023-04-22 06:18 | XMS_ITS | Encounter Summary ---
Author Name Unknown Organization [facility] Address [address] [place] [address] Care Team Providers Care Reservations Clerk Name Role Phone Edison Tam MD Primary Care Provider Edison Tam MD Primary Care Provider Sheri Casey MD Unavailable [phone] Alphonso Billy MD Unavailable [phone] Roland Holt MD Unavailable Amita Ryan MD Unavailable Sid Lilly MD Unavailable Neda Boland RN Unavailable Edison Tam MD Unavailable [phone] Encounter Details Date Type Department Care Team (Late st Contact Info) Description 01/27/2013 [facility] Medicine GI - 1E [facility] 1st Floor, Clinic [address]E [address] [place] [address] [phone] Charan Salazar MD 100 [facility] 208 [place] [address] Social History Tobacco Use Types Packs/Day Years [...] on filedocumented in this encounter Care Teams Reservations Clerk Relationship Specialty Start Date End Date Edison Tam MD [address] [place] [address] PCP - General Family Practice 09/21/11 07/22/14 Edison Tam MD [address] [place] [address] PCP - General Family Practice 07/23/14 Sheri Casey MD [address] [place] [address] 276 [place] [address] Pulmonary Disease 07/23/14 Alphonso Billy MD [address] [place] [address] 8[address] Cardiology 08/12/14 12/26/17 Roland Holt MD [address] [place] [address]793 Resident Student in organized health care education/training program 05/12/15 09/24/18 Amita Ryan MD [address] [place], [place] [id number] [address] Internal Medicine 12/19/15 Sid Lilly MD [address] [place] [address], [place] [address] Orthopaedic Surgery 02/22/16 Neda Boland, NANDINI Nurse Coordinator Neurology 02/23/16 09/01/18 Edison Tam MD [address] [place] [address] 4 [place], [place] 659665 Assigned PCP 07/30/19 2 documented as of this encounter
--- OUTSIDE RECORDS SUMMARY | 2023-04-22 06:18 | XMS_ITS | Encounter Summary ---
Author Name Unknown Organization [place] Address [address] [place] [address] 15[address] Care Team Providers Care Music Researcher Name Role Phone Edison Tam MD Primary Care Provider Edison Tam MD Primary Care Provider [phone] Sheri Casey MD Unavailable [phone] Alphonso Billy MD Unavailable [phone] Roland Holt MD Unavailable Amita Ryan MD Unavailable Sid Lilly MD Unavailable Neda Boland RN Unavailable [phone] Edison Tam MD Unavailable [phone] Encounter Details Date Type Department Care Team (Late st Contact Info) Description 05/06/2014 [facility] Medical Advice Medicine GI - 1E [facility] 1st Floor, Clinic [address]E [address] [place] [address] [phone] Rebekah Mason, RN Social History Tobacco Use [...] on filedocumented in this encounter Care Teams Music Researcher Relationship Specialty Start Date End Date Edison Tam MD 9 [facility] 4 [place] [address] PCP - General Family Practice 09/21/11 07/22/14 Edison Tam MD [address] [place] [address] 4 [place], [place] 751575 PCP - General Family Practice 07/23/14 Sheri Casey MD 420 [facility] 276 [place], [place] 098165 Pulmonary Disease 07/23/14 Alphonso Billy MD 420 [place], [place] 570325 Cardiology 08/12/14 12/26/17 Roland Holt MD 420 [place], [place] 737425 Resident Student in organized health care education/training program 05/12/15 09/24/18 Amita Ryan MD 909 [facility] [id number] [place], [place] 901955 Internal Medicine 12/19/15 Sid Lilly MD 2512 S [facility] R200 [place], [place] 025514 Orthopaedic Surgery 02/22/16 Neda Boland, RN Nurse Coordinator Neurology 02/23/16 09/01/18 Edison Tam MD [address] [address] Assigned PCP 07/30/19 04/30/20 documented as of this encounter
--- OUTSIDE RECORDS SUMMARY | 2023-04-22 06:18 | XMS_ITS | Encounter Summary ---
Author Name Unknown Organization [place] Address [address] [place] [address] 9[address]24 Care Team Providers Care Rn Telemetry Name Role Phone Edison Tam MD Primary Care Provider [phone] Edison Tam MD Primary Care Provider +[phone] Sheri Casey MD Unavailable [phone] Alphonso Billy MD Unavailable Roland Holt MD Unavailable Amita Ryan MD Unavailable Sid Lilly MD Unavailable [phone] Neda Boland RN Unavailable [phone] Edison Tma MD Unavailable Encounter Details Date Type Department Care Team (Late st Contact Info) Description 04/10/2013 [facility] 3rd Floor, Clinic [address] 88 [place] [address] Edison Tam MD 909 [facility] 4 [place], [place] 927735 Social History Tobacco Use Types Packs/Day Years [...] on filedocumented in this encounter Care Teams Rn Telemetry Relationship Specialty Start Date End Date Edison Tam MD [address] [place] [address] PCP - General Family Practice 09/21/11 07/22/14 Edison Tam MD [address] [place] [address] PCP - General Family Practice 07/23/14 Sheri Casey MD [address] [place] [address] 276 [place] [address] Pulmonary Disease 07/23/14 Alphonso Billy MD [address] [place] [address] Cardiology 08/12/14 12/26/17 Roland Holt MD [address] [place] [address] Resident Student in organized health care education/training program 05/12/15 09/24/18 Amita Ryan MD [address] [place] [address] [id number] [place] [address] Internal Medicine 12/19/15 Sid Lilly MD [facility] [address] [place] [address] Orthopaedic Surgery 02/22/16 Neda Boland, RN Nurse Coordinator Neurology 02/23/16 09/01/18 Edison Tam MD 909 [facility] 4 [place] [address] Assigned PCP 07/30/19 04/30/20 documented as of this encounter
--- OUTSIDE RECORDS SUMMARY | 2023-04-22 06:18 | XMS_ITS | Encounter Summary ---
Author Name Unknown Organization [place] Address [address] [place] [address]. [place] [address] Care Team Providers Care Cafeteria Assistant Name Role Phone Edison Tam MD Primary Care Provider [phone] Sheri Casey MD Unavailable [phone] Alphonso Billy MD Unavailable [phone] Roland Holt MD Unavailable Amita Ryan MD Unavailable Sid Lilly MD Unavailable Neda Boland RN Unavailable Edison Tam MD Unavailable [phone] Encounter Details Date Type Department Care Team (Late st Contact Info) Description 12/29/2014 [facility] Medical Advice [facility] 6th Floor, Clinic 6B [facility] 88 516 [place] [phone] Pj Packer MD [address] [place] [address] 250 [place], [place] 989715 Social History Tobacco Use Types Packs/Day Years [...] on filedocumented in this encounter Care Teams Cafeteria Assistant Relationship Specialty Start Date End Date Edison Tam MD 909 [facility] FL 4 [place], [place] 841035 PCP - General Family Practice 07/23/14 Sheri Casey MD [address] [place] [address] 276 [place], [place] 307935 Pulmonary Disease 07/23/14 Alphonso Billy MD [address] [place] [address] 874375 Cardiology 08/12/14 12/26/17 Roland Holt MD [address] [place] [address] 801435 Resident Student in organized health care education/training program 05/12/15 09/24/18 Amita Ryan MD 9 [facility] [id number] [place], [place] 683565 Internal Medicine 12/19/15 Sid Lilly MD [address] [place] [address] 235874 Orthopaedic Surgery 02/22/16 Neda Boland, NANDINI Nurse Coordinator Neurology 02/23/16 09/01/18 Edison Tam MD [address] [address] Assigned PCP 07/30/19 2 documented as of this encounter
--- OUTSIDE RECORDS SUMMARY | 2023-04-22 06:19 | XMS_ITS | Encounter Summary ---
Author Name Unknown Organization [facility] Address [address] [place] [address] 17931 Care Team Providers Care Production Operations Inspector Name Role Phone Edison Tam MD Primary Care Provider Edison Tam MD Primary Care Provider [phone] Sheri Casey MD Unavailable [phone] Alphonso Billy MD Unavailable [phone] Roland Holt MD Unavailable [phone] Amita Ryan MD Unavailable [phone] Sid Lilly MD Unavailable [phone] Neda Boland RN Unavailable [phone] Edison Tam MD Unavailable [phone] Encounter Details Date Type Department Care Team (Late st Contact Info) Description 11/11/2012 [facility] Medical Advice [facility] Adult Rheumatology 2nd Floor, Clinic [address]A [address] [address] Debbi Juarez MD [address] [place] [address] Social History Tobacco Use Types Packs/Day [...] on filedocumented in this encounter Care Teams Production Operations Inspector Relationship Specialty Start Date End Date Edison Tam MD [address] [place] [address] PCP - General Family Practice 09/21/11 07/22/14 Edison Tam MD [address] [place] [address] PCP - General Family Practice 07/23/14 Sheri Casey MD [address] [place] [address] 276 [place] [address] Pulmonary Disease 07/23/14 Alphonso Billy MD [address] [place] [address] Cardiology 08/12/14 12/26/17 Roland Holt MD [address] [place] [address] Resident Student in organized health care education/training program 05/12/15 09/24/18 Amita Ryan MD [address] [place] [id number] [place] [address] Internal Medicine 12/19/15 Sid Lilly MD [address] [place] [address] [place] [address] Orthopaedic Surgery 02/22/16 Neda Boland RN Nurse Coordinator Neurology 02/23/16 09/01/18 Edison Tam MD [address] [place] [address] 4 [place] [address] Assigned PCP 07/30/19 2 documented as of this encounter
--- OUTSIDE RECORDS SUMMARY | 2023-04-22 06:19 | XMS_ITS | Encounter Summary ---
Author Name Unknown Organization [place] Address [address] [place] [address]79 Care Team Providers Care District Court Administrator Name Role Phone Edison Tam MD Primary Care Provider Edison Tam MD Primary Care Provider Sheri Casey MD Unavailable [phone] Alphonso Billy MD Unavailable [phone] Roland Holt MD Unavailable Amita Ryan MD Unavailable [phone] Sid iLlly MD Unavailable [phone] Neda Boland RN Unavailable [phone] Edison Tam MD Unavailable [phone] Encounter Details Date Type Department Care Team (Late st Contact Info) Description 11/07/2012 [facility] Medicine GI - 1E [facility] 1st Floor, Clinic [address] [place] [address] [phone] Charan Salazar MD 100 [facility] 208 [place] [address] Social History Tobacco Use Types Packs/Day Years [...] on filedocumented in this encounter Care Teams District Court Administrator Relationship Specialty Start Date End Date Edison Tam MD [address] [place] [address] PCP - General Family Practice 09/21/11 07/22/14 Edison Tam MD [address] [place] [address] PCP - General Family Practice 07/23/14 Sheri Casey MD [address] [place] [address] 276 [place] [address] Pulmonary Disease 07/23/14 Alphonso Billy MD [address] [place] [address] Cardiology 08/12/14 12/26/17 Roland Holt MD [address] [place] [address] Resident Student in organized health care education/training program 05/12/15 09/24/18 Amita Ryan MD [address] [place] [id number] [address] Internal Medicine 12/19/15 Sid Lilly MD [address] [place] [address], [place] [address] Orthopaedic Surgery 02/22/16 Neda Boland, NANDINI Nurse Coordinator Neurology 02/23/16 09/01/18 Edison Tam MD [address] [place] [address] 4 [place], [place] 614185 Assigned PCP 07/30/19 2 documented as of this encounter
--- OUTSIDE RECORDS SUMMARY | 2023-04-22 06:19 | XMS_ITS | Encounter Summary ---
Author Name Unknown Organization [facility] Address [address] [place] [address] Care Team Providers Care Universal Grinder Tool Name Role Phone Edison Tam MD Primary Care Provider Edison Tam MD Primary Care Provider [phone] Sheri Casey MD Unavailable [phone] Alphonso Billy MD Unavailable [phone] Roland Holt MD Unavailable Amita Ryan MD Unavailable [phone] Sid Lilly MD Unavailable Neda Boland RN Unavailable Edison Tam MD Unavailable [phone] Encounter Details Date Type Department Care Team (Late st Contact Info) Description 12/04/2012 [facility] Medical Advice [facility] 6th Floor, Clinic 6A [place] 185396 [facility] 88 [place] [address] Laisha Moraes MD [address] [place] [address] 101 [place], [place] 436645 Social History Tobacco Use Types Packs/Day Years [...] on filedocumented in this encounter Care Teams Universal Grinder Tool Relationship Specialty Start Date End Date Edison Tam MD [address] [place] [address] PCP - General Family Practice 09/21/11 07/22/14 Edison Tam MD [address] [place] [address] PCP - General Family Practice 07/23/14 Sheri Casey MD [address] [place] [address] 276 [place] [address] Pulmonary Disease 07/23/14 Alphonso Billy MD [address] [place] [address] Cardiology 08/12/14 12/26/17 Roland Holt MD [address] [place] [address] Resident Student in organized health care education/training program 05/12/15 09/24/18 Amita Ryan MD [address] [place] [id number] [address] Internal Medicine 12/19/15 Sid Lilly MD [address] [place] [address] [place] [address] Orthopaedic Surgery 02/22/16 Neda Boland, NANDINI Nurse Coordinator Neurology 02/23/16 09/01/18 Edison Tam MD [address] [place] [address] FL 4 [place], [place] 773505 Assigned PCP 07/30/19 04/30/20 documented as of this encounter
--- OUTSIDE RECORDS SUMMARY | 2023-04-22 06:19 | XMS_ITS | Encounter Summary ---
Author Name Unknown Organization [place] Address [address] [place] [address] Care Team Providers Care Associate Art Director Name Role Phone Edison Tam MD Primary Care Provider Edison Tam MD Primary Care Provider Sheri Casey MD Unavailable [phone] Alphonso Billy MD Unavailable [phone] Roland Holt MD Unavailable Amita Ryan MD Unavailable [phone] Sid Lilly MD Unavailable Neda Boland RN Unavailable [phone] Edison Tam MD Unavailable [phone] Encounter Details Date Type Department Care Team (Late st Contact Info) Description 11/24/2012 [facility] Medicine GI - 1E [facility] 1st Floor, Clinic [address]E [address] [place] [address] [phone] Charan Salazar MD 100 [facility] [facility] 208 [place] [address] Social History Tobacco Use Types Packs/Day Years [...] on filedocumented in this encounter Care Teams Associate Art Director Relationship Specialty Start Date End Date Edison Tam MD [address] [place] [address] PCP - General Family Practice 09/21/11 07/22/14 Edison Tam MD [address] [place] [address] 227[address] PCP - General Family Practice 07/23/14 Sheri Casey MD [address] [place] [address] 276 [place] [address] Pulmonary Disease 07/23/14 Alphonso Billy MD [address] [place] [address] Cardiology 08/12/14 12/26/17 Roland Holt MD [address] [place] [address] Resident Student in organized health care education/training program 05/12/15 09/24/18 Amita Ryan MD [address] [place] [address] [address] Internal Medicine 12/19/15 Sid Lilly MD [address] [place] [address], [place] [address] Orthopaedic Surgery 02/22/16 Neda Boland, NANDINI Nurse Coordinator Neurology 02/23/16 09/01/18 Edison Tam MD [address] [place] [address] 4 [place], [place] 831305 Assigned PCP 07/30/19 2 documented as of this encounter
--- OUTSIDE RECORDS SUMMARY | 2023-04-22 06:19 | XMS_ITS | Encounter Summary ---
Author Name Unknown Organization [place] Address [address] [place] [address] Care Team Providers Care Vanstone Machine Operator Name Role Phone Edison Tam MD Primary Care Provider Edison Tma MD Primary Care Provider [phone] Sheri Casey MD Unavailable [phone] Alphonso Billy MD Unavailable [phone] Roland Holt MD Unavailable [phone] Amita Ryan MD Unavailable Sid Lilly MD Unavailable Neda Boland RN Unavailable Edison Tam MD Unavailable Encounter Details Date Type Department Care Team (Late st Contact Info) Description 11/15/2012 [facility] Medical Advice [facility] Adult Rheumatology 2nd Floor, Clinic [address]A [address] [phone] Debbi Juarez MD [address] [place] [address] Social History Tobacco Use Types Packs/Day [...] on filedocumented in this encounter Care Teams Vanstone Machine Operator Relationship Specialty Start Date End Date Edison Tam MD [address] [place] [address] PCP - General Family Practice 09/21/11 07/22/14 Edison Tam MD [address] [place] [address] PCP - General Family Practice 07/23/14 Sheri Casey MD [address] [place] [address] 276 [place] [address] Pulmonary Disease 07/23/14 Alphonso Billy MD [address] [place] [address] Cardiology 08/12/14 12/26/17 Roland Holt MD [address] [place] [address] Resident Student in organized health care education/training program 05/12/15 09/24/18 Amita Ryan MD [address] [place] [id number] [address] Internal Medicine 12/19/15 Sid Lilly MD [address] [place] [address] [place] [address] Orthopaedic Surgery 02/22/16 Neda Boland RN Nurse Coordinator Neurology 02/23/16 09/01/18 Edison Tam MD [address] [place] [address] 4 [place] [address] Assigned PCP 07/30/19 2 documented as of this encounter
--- OUTSIDE RECORDS SUMMARY | 2023-04-22 06:19 | XMS_ITS | Encounter Summary ---
Author Name Unknown Organization [place] Address [address] [place] [address] Care Team Providers Care Jacquard Twine Polisher Operator Name Role Phone Edison Tam MD Primary Care Provider Edison Tam MD Primary Care Provider Sheri Casey MD Unavailable [phone] Alphonso Billy MD Unavailable [phone] Roland Holt MD Unavailable Amita Ryan MD Unavailable Sid Lilly MD Unavailable [phone] Neda Boland RN Unavailable [phone] Edison Tam MD Unavailable [phone] Encounter Details Date Type Department Care Team (Late st Contact Info) Description 11/11/2012 [facility] Medicine GI - 1E [facility] 1st Floor, Clinic [address]E [address] [place] [address] [phone] Charan Salazar MD 100 [facility] 208 [place] [address] Social History Tobacco Use Types Packs/Day Years [...] on filedocumented in this encounter Care Teams Jacquard Twine Polisher Operator Relationship Specialty Start Date End Date Edison Tam MD [address] [place] [address] PCP - General Family Practice 09/21/11 07/22/14 Edison Tam MD [address] [place] [address] PCP - General Family Practice 07/23/14 Sheri Casey MD [address] [place] [address] 276 [place] [address] Pulmonary Disease 07/23/14 Alphonso Billy MD [address] [place] [address] Cardiology 08/12/14 12/26/17 Roland Holt MD [address] [place] [address] Resident Student in organized health care education/training program 05/12/15 09/24/18 Amita Ryan MD [address] [place] [id number] [address] Internal Medicine 12/19/15 Sid Lilly MD [address] [place] [address], [place] [address] Orthopaedic Surgery 02/22/16 Neda Boland, NANDINI Nurse Coordinator Neurology 02/23/16 09/01/18 Edison Tam MD [address] [place] [address] 4 [place], [place] 430635 Assigned PCP 07/30/19 2 documented as of this encounter
--- OUTSIDE RECORDS SUMMARY | 2023-04-22 06:19 | XMS_ITS | Encounter Summary ---
Author Name Unknown Organization [place] Address [address] [place] [address] Care Team Providers Care Motorcycle Assembler Name Role Phone Edison Tam MD Primary Care Provider Edison Tam MD Primary Care Provider Sheri Casey MD Unavailable [phone] Alphonso Billy MD Unavailable [phone] Roland Holt MD Unavailable [phone] Amita Ryan MD Unavailable [phone] Sid Lilly MD Unavailable Neda Boland RN Unavailable [phone] Edison Tam MD Unavailable [phone] Encounter Details Date Type Department Care Team (Late st Contact Info) Description 12/10/2012 [facility] Medicine GI - 1E [facility] 1st Floor, Clinic [address]E [address] [place] [address] [phone] Charan Salazar MD 100 [address] [facility] 208 [place] [address] Social History Tobacco Use Types Packs/Day Years [...] on filedocumented in this encounter Care Teams Motorcycle Assembler Relationship Specialty Start Date End Date Edison Tam MD [address] [place] [address] PCP - General Family Practice 09/21/11 07/22/14 Edison Tam MD [address] [place] [address] PCP - General Family Practice 07/23/14 Sheir Casey MD [address] [place] [address] 276 [place] [address] Pulmonary Disease 07/23/14 Alphonso Billy MD [address] [place] [address] Cardiology 08/12/14 12/26/17 Roland Holt MD [address] [place] [address] Resident Student in organized health care education/training program 05/12/15 09/24/18 Amita Ryan MD [address] [place] [id number] [place] [address] Internal Medicine 12/19/15 Sid Lilly MD [address] [place] [address], [place] [address] Orthopaedic Surgery 02/22/16 Neda Boland, NANDINI Nurse Coordinator Neurology 02/23/16 09/01/18 Edison Tam MD [address] [place] [address] 4 [place], [place] 305855 Assigned PCP 07/30/19 2 documented as of this encounter
--- OUTSIDE RECORDS SUMMARY | 2023-04-22 06:19 | XMS_ITS | Encounter Summary ---
Author Name Unknown Organization [place] Address [address] [place] [address] 29472 Care Team Providers Care Ophthalmic Medical Technologist Name Role Phone Edison Tam MD Primary Care Provider Edison Tam MD Primary Care Provider Sheri Casey MD Unavailable [phone] Alphonso Billy MD Unavailable [phone] Roland Holt MD Unavailable [phone] Amita Ryan MD Unavailable Sid Lilly MD Unavailable Neda Boland RN Unavailable [phone] Edison Tam MD Unavailable [phone] Encounter Details Date Type Department Care Team (Late st Contact Info) Description 11/15/2012 [facility] Medicine GI - 1E [facility] 1st Floor, Clinic [address]E [address] [place] [address] [phone] Charan Salazar MD 100 [address] [facility] 208 [place] [address] Social History Tobacco Use Types Packs/Day Years [...] on filedocumented in this encounter Care Teams Ophthalmic Medical Technologist Relationship Specialty Start Date End Date Edison Tam MD [address] [place] [address] PCP - General Family Practice 09/21/11 07/22/14 Edison Tam MD [address] [place] [address] 208[address] PCP - General Family Practice 07/23/14 Sheri Casey MD [address] [place] [address] 276 [place] [address] Pulmonary Disease 07/23/14 Alphonso Billy MD [address] [place] [address] Cardiology 08/12/14 12/26/17 Roland Holt MD [address] [place] [address] Resident Student in organized health care education/training program 05/12/15 09/24/18 Amita Ryan MD [address] [place], [place] [id number] [place] [address] Internal Medicine 12/19/15 Sid Lilly MD [address] [place] [address], [place] [address] Orthopaedic Surgery 02/22/16 Neda Boland, NANDINI Nurse Coordinator Neurology 02/23/16 09/01/18 Edison Tam MD [address] [place] [address] 4 [place], [place] 968035 Assigned PCP 07/30/19 2 documented as of this encounter
--- OUTSIDE RECORDS SUMMARY | 2023-04-22 06:19 | XMS_ITS | Encounter Summary ---
Author Name Unknown Organization [place] Address [address] [place] [address] Care Team Providers Care Associate Professor Of Criminal Justice Name Role Phone Edison Tam MD Primary Care Provider Edison Tam MD Primary Care Provider Sheri Csaey MD Unavailable [phone] Alphonso Billy MD Unavailable [phone] Roland Holt MD Unavailable Amita Ryan MD Unavailable Sid Lilly MD Unavailable [phone] Neda Boland RN Unavailable [phone] Edison Tam MD Unavailable [phone] Encounter Details Date Type Department Care Team (Late st Contact Info) Description 12/05/2012 [facility] Medicine GI - 1E [facility] 1st Floor, Clinic [address]E [address] [place] [address] [phone] Charan Salazar MD 100 [facility] [facility] 208 [place] [address] Social History Tobacco Use Types Packs/Day Years [...] filedocumented in this encounter Care Teams Associate Professor Of Criminal Justice Relationship Specialty Start Date End Date Edison Tam MD [address] [place] [address] PCP - General Family Practice 09/21/11 07/22/14 Edison Tam MD [address] [place] [address] PCP - General Family Practice 07/23/14 Sheri Casey MD [address] [place] [address] 276 [place] [address] Pulmonary Disease 07/23/14 Alphonso Billy MD [address] [place] [address] 139[address] Cardiology 08/12/14 12/26/17 Roland Holt MD [address] [place] [address] Resident Student in organized health care education/training program 05/12/15 09/24/18 Amita Rayn MD [address] [place], [place] [id number] [place] [address] Internal Medicine 12/19/15 Sid Lilly MD [address] [place] [address], [place] [address] Orthopaedic Surgery 02/22/16 Neda Boland, NANDINI Nurse Coordinator Neurology 02/23/16 09/01/18 Edison Tam MD [address] [place] [address] 4 [place], [place] 733395 Assigned PCP 07/30/19 2 documented as of this encounter
--- OUTSIDE RECORDS SUMMARY | 2023-04-22 06:19 | XMS_ITS | Encounter Summary ---
Author Name Unknown Organization [place] Address [address] [place] [address] Care Team Providers Care Cash Control Specialist Name Role Phone Edison Tam MD Primary Care Provider Edison Tam MD Primary Care Provider [phone] Sheri Casey MD Unavailable [phone] Alphonso Billy MD Unavailable Roland Holt MD Unavailable Amita Ryan MD Unavailable Sid Lilly MD Unavailable Neda Boland RN Unavailable Edison Tam MD Unavailable [phone] Encounter Details Date Type Department Care Team (Late st Contact Info) Description 12/05/2012 [facility] Medical Advice Diabetes and Endocrine 6th Floor, Clinic 6A [place] [id number] [facility] 88 [place] [address] Laisha Moraes MD [address] [place] [address] 101 [place], [place] 194075 Social History Tobacco Use Types Packs/Day Years [...] on filedocumented in this encounter Care Teams Cash Control Specialist Relationship Specialty Start Date End Date Edison Tam MD [address] [place] [address] 924[address] PCP - General Family Practice 09/21/11 07/22/14 Edison Tam MD [address] [place] [address]17 PCP - General Family Practice 07/23/14 Sheri Casey MD [address] [place] [address] 276 [place] [address] Pulmonary Disease 07/23/14 Alphonso Billy MD [address] [place] [address] 51457 Cardiology 08/12/14 12/26/17 Roland Holt MD [address] [place] [address] 95[address] Resident Student in organized health care education/training program 05/12/15 09/24/18 Amita Ryan MD [address] [place] [address] [address] Internal Medicine 12/19/15 Sid Lilly MD [address] [place] [address] [place] [address] Orthopaedic Surgery 02/22/16 Neda Boland, NANDINI Nurse Coordinator Neurology 02/23/16 09/01/18 Edison Tam MD [address] [place] [address] [place] 4 [place], [place] 052485 Assigned PCP 07/30/19 04/30/20 documented as of this encounter
--- OUTSIDE RECORDS SUMMARY | 2023-04-22 06:19 | XMS_ITS | Encounter Summary ---
Author Name Unknown Organization [facility] Address [address] [place] [address] Care Team Providers Care Moth Exterminator Name Role Phone Edison Tam MD Primary Care Provider Edison Tam MD Primary Care Provider Sheri Casey MD Unavailable [phone] Alphonso Billy MD Unavailable [phone] Roland Holt MD Unavailable [phone] Amita Ryan MD Unavailable [phone] Sid Lilly MD Unavailable Neda Boland RN Unavailable [phone] Edison Tam MD Unavailable [phone] Encounter Details Date Type Department Care Team (Late st Contact Info) Description 01/01/2013 [facility] Medicine - 1E [facility] 1st Floor, Clinic [address] [place] [phone] Charan Slaazar MD [address] [facility] 208 [place] [address] Social History Tobacco Use Types Packs/Day Years [...] on filedocumented in this encounter Care Teams Moth Exterminator Relationship Specialty Start Date End Date Edison Tam MD [address] [place] [address] PCP - General Family Practice 09/21/11 07/22/14 Edison Tam MD [address] [place] [address] PCP - General Family Practice 07/23/14 Sheri Casey MD [address] [place] [address] 276 [place] [address] Pulmonary Disease 07/23/14 Alphonso Billy MD [address] [place] [address] 969[address] Cardiology 08/12/14 12/26/17 Roland Holt MD [address] [place] [address] 266[address] Resident Student in organized health care education/training program 05/12/15 09/24/18 Amita Ryan MD [address] [place] [id number] [address] Internal Medicine 12/19/15 Sid Lilly MD [address] [place] [address], [place] [address] Orthopaedic Surgery 02/22/16 Neda Boland, NANDINI Nurse Coordinator Neurology 02/23/16 09/01/18 Edison Tam MD [address] [place] [address] 4 [place], [place] 292495 Assigned PCP 07/30/19 2 documented as of this encounter
--- OUTSIDE RECORDS SUMMARY | 2023-04-22 06:19 | XMS_ITS | Encounter Summary ---
Author Name Unknown Organization [place] Address [address] [place] [address] Care Team Providers Care Commercial Leasing Agent Name Role Phone Edison Tam MD Primary Care Provider Edison Tam MD Primary Care Provider [phone] Sheri Casey MD Unavailable [phone] Alphonso Billy MD Unavailable [phone] Roland Hlot MD Unavailable [phone] Amita Ryan MD Unavailable Sid Lilly MD Unavailable Neda Boland RN Unavailable [phone] Edison Tam MD Unavailable [phone] Encounter Details Date Type Department Care Team (Late st Contact Info) Description 11/11/2012 MyC Medical Advice [facility] Adult Rheumatology 2nd Floor, Clinic [address]A [address] [address] Debbi Juarez MD [address] [place] [address] Social History Tobacco Use Types Packs/Day [...] on filedocumented in this encounter Care Teams Commercial Leasing Agent Relationship Specialty Start Date End Date Edison Tam MD [address] [place] [address] PCP - General Family Practice 09/21/11 07/22/14 Edison Tam MD [address] [place] [address] 31625 PCP - General Family Practice 07/23/14 Sheri Casey MD [address] [place] [address] 276 [place] [address] Pulmonary Disease 07/23/14 Alphonso Billy MD [address] [place] [address] Cardiology 08/12/14 12/26/17 Roland Holt MD [address] [place] [address] Resident Student in organized health care education/training program 05/12/15 09/24/18 Amita Ryan MD [address] [place], [place] [address] [address] Internal Medicine 12/19/15 Sid Lilly MD [address] [place] [address] [place] [address] Orthopaedic Surgery 02/22/16 Neda Boland RN Nurse Coordinator Neurology 02/23/16 09/01/18 Edison Tam MD [address] [place] [address] 4 [place] [address] Assigned PCP 07/30/19 2 documented as of this encounter
--- OUTSIDE RECORDS SUMMARY | 2023-04-22 06:19 | XMS_ITS | Encounter Summary ---
Author Name Unknown Organization [place] Address [address] [place] [address] Care Team Providers Care Grades 1 Through 6 Teacher Name Role Phone Edison Tam MD Primary Care Provider Edison Tam MD Primary Care Provider [phone] Sheri Casey MD Unavailable [phone] Alphonso Billy MD Unavailable [phone] Roland Holt MD Unavailable [phone] Amita Ryan MD Unavailable [phone] Sid Lilly MD Unavailable Neda Boland RN Unavailable [phone] Edison Tam MD Unavailable [phone] Encounter Details Date Type Department Care Team (Late st Contact Info) Description 11/11/2012 MyC Medical Advice [facility] Adult Rheumatology 2nd Floor, Clinic [address]A [address] [address] Debbi Juarez MD [address] [place] [address] Social History Tobacco Use Types Packs/Day [...] on filedocumented in this encounter Care Teams Grades 1 Through 6 Teacher Relationship Specialty Start Date End Date Edison Tam MD [address] [place] [address] PCP - General Family Practice 09/21/11 07/22/14 Edison Tam MD [address] [place] [address] PCP - General Family Practice 07/23/14 Sheri Casey MD [address] [place] [address] 276 [place] [address] Pulmonary Disease 07/23/14 Alphonso Billy MD [address] [place] [address] Cardiology 08/12/14 12/26/17 Roland Holt MD [address] [place] [address] Resident Student in organized health care education/training program 05/12/15 09/24/18 Amita Ryan MD [address] [place] [address] [address] Internal Medicine 12/19/15 Sid Lilly MD [address] [place] [address] [place] [address] Orthopaedic Surgery 02/22/16 Neda Boland RN Nurse Coordinator Neurology 02/23/16 09/01/18 Edison Tam MD [address] [place] [address] 4 [place] [address] Assigned PCP 07/30/19 2 documented as of this encounter
--- OUTSIDE RECORDS SUMMARY | 2023-04-22 06:19 | XMS_ITS | Encounter Summary ---
Author Name Unknown Organization [place] Address [address] [place] [address] Care Team Providers Care Turner Machine Name Role Phone Edison Olivas MD Primary Care Provider Edison Olivas MD Primary Care Provider Sheri Casey MD Unavailable [phone] Alphonso Billy MD Unavailable [phone] Roland Holt MD Unavailable [phone] Amita Ryan MD Unavailable Sid Lilly MD Unavailable Neda Boland RN Unavailable [phone] Edison Olivas MD Unavailable [phone] Encounter Details Date Type Department Care Team (Late st Contact Info) Description 11/06/2011 Office Visit-P INTERFACE P DEPT Kassy Maloney MD XX RESIGNED XX [place], [place] 966125 Social History Tobacco Use Types Packs/Day Years [...] documented as of this encounter Progress Notes * Kassy Maloney MD - 11/06/2011 12:49 PM CDT Phlebotomy Supervisor: Kassy Maloney Status: Final - Signature Encounter: 2011-11-06 12:49:00.000 Type: DXA SCAN [facility] [address] [place] [address] 3[place], [place] [address] Phone: Fax: Bone Densitometry Report: 11/06/2011 REPORT STATUS: FINAL DR EDISON OLIVAS DR: Your patient, MARIA E GONZALEZ ([id number] ), completed a DXA exam ([id number] ) on a [employer] on 11/06/2011 . The following is a [...] fracture in 1987, family history of osteoporosis or fractures, self reported 1 inch height loss since [...] FORMATTED RESULTS WITH TABLES ARE LOCATED IN EPIC UNDER CHART REVIEW < ENCOUNTERS < PROVIDER < VANKO DR EDISON OLIVAS DR: Your patient, MARIA E GONZALEZ ([id number] ), completed a DXA exam ([id number] ) on a CCBR-SYNARC on 11/06/2011 . The following are the [...] osteoporotic fracture, family history of osteoporosis, etc. ?? (for premenopausal women and men < age 50, Z-scores, not T-scores are reported ) The most negative and valid Z-score of -1.7 at the level of the right femoral neck, is within expected range forage. ?? The patient meets the following indications [...] have rapidly progressing disease, or for those whoare receiving medical therapy to restore bone mass. [...] to you and your patient. Principal result retail sales associate: Marisa Maloney MD, CCD linux architect Division of Rheumatic and Autoimmune Diseases [facility] DXA Services #: [phone] fax #: [phone] References: 1. NOF Physician's Guideline Website address: www.nof.org 2. [place] College [employer]umat[employer] Recommendations for the Prevention and Treatment of Glucocorticoid-induced Osteoporosis: 2001 update in Arthritis and Rheumatism September 2000 edition (vol 44, issue7) pp 1491 - 1506. 3. ISCD position statements: www.iscd.org (includes the report of the 2007 Position Development Conference) According to the ISCD position statements, lateral spine is not to be used for diagnosis, but may have a role in monitoring. According to the ISCD position statements, the diagnosis of osteoporosis in pre- menopausal women and in men younger than age 50 should not be made on the basis of densitometric criteria alone. In addition Z-scores rather than T-scores should be used. 4. Implementation of suggestions is at the discretion of the ordering provider. Clinical correlation is recommended. 5. 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 DESIGNER Author documented in this encounter Plan of Treatment Not on file documented as of this encounter Visit Diagnoses Not on filedocumented in this encounter Care Teams Turner Machine Relationship Specialty Start Date End Date Edison Olivas MD [address] [place] [address] PCP - General Family Practice 09/21/11 07/22/14 Edison Olivas MD [address] [place] [address] 99207 PCP - General Family Practice 07/23/14 Sheri Casey MD [address] [place] [address] 418125 Pulmonary Disease 07/23/14 Alphonso Billy MD [address] [place] [address] 423935 Cardiology 08/12/14 12/26/17 Roland Holt MD [address] [place] [address] 828025 Resident Student in organized health care education/training program 05/12/15 09/24/18 Amita Ryan MD [address] [facility] [id number] [place] [address] Internal Medicine 12/19/15 Sid Lilly MD [address] [place] [address] Orthopaedic Surgery 02/22/16 Neda Boland, NANDINI Nurse Coordinator Neurology 02/23/16 09/01/18 Edison Olivas MD [address] [place] [address] FL 4 [place] [address] Assigned PCP 07/30/19 04/30/20 documented as of this encounter
--- OUTSIDE RECORDS SUMMARY | 2023-04-22 06:19 | XMS_ITS | Encounter Summary ---
Author Name Unknown Organization [facility] Address [address] [place] [address] Care Team Providers Care Zoning Technician Name Role Phone Edison Tam MD Primary Care Provider Edison Tam MD Primary Care Provider Sheri Casey MD Unavailable [phone] Alphonso Billy MD Unavailable [phone] Roland Holt MD Unavailable Amita Ryan MD Unavailable [phone] Sid Lilly MD Unavailable [phone] Neda Boland RN Unavailable Edison Tam MD Unavailable [phone] Encounter Details Date Type Department Care Team (Late st Contact Info) Description 12/05/2012 [facility] Medicine GI - 1E [facility] 1st Floor, Clinic [address]E [address] [place] [phone] Charan Salazar MD [address] [facility] 208 [place] [address] Social History Tobacco Use Types Packs/Day Years [...] on filedocumented in this encounter Care Teams Zoning Technician Relationship Specialty Start Date End Date Edison Tam MD [address] [place] [address] PCP - General Family Practice 09/21/11 07/22/14 Edison Tam MD [address] [place] [address] 25[address] PCP - General Family Practice 07/23/14 Sheri Casey MD [address] [place] [address] 276 [place] [address] Pulmonary Disease 07/23/14 Alphonso Billy MD [address] [place] [address] Cardiology 08/12/14 12/26/17 Roland Holt MD [address] [place] [address] 63667 Resident Student in organized health care education/training program 05/12/15 09/24/18 Amita Ryan MD [address] [place] [address] [address] Internal Medicine 12/19/15 Sid Lilly MD [address] [place] [address], [place] [address] Orthopaedic Surgery 02/22/16 Neda Boland, NANDINI Nurse Coordinator Neurology 02/23/16 09/01/18 Edison Tam MD [address] [place] [address] 4 [place], [place] 954135 Assigned PCP 07/30/19 2 documented as of this encounter
--- OUTSIDE RECORDS SUMMARY | 2023-04-22 06:19 | XMS_ITS | Clinical Summary ---
Author Name Unknown Organization [facility] Address [address] [place] [address] Care Team Providers Care Reliability Technicians Name Role Phone Steffanie Hitchcock MD Primary Care Provider Source Comments You are receiving this document as you are listed as the primary care provider,follow-up provider, or the patient has been referred to you for consultation.This is in compliance with the Medicare and[facility] EHR Incentive Program,which states Providers who transition their patient to another setting of careor provider of care or refers their patient to another provider of care shouldprovide summary care record for each transition of care or referral. [employer] Allergies Active Allergy Reactions Criticality Noted Date Comments Morphine Rash 02/12/2018 Penicillins Rash 02/12/2018 Sulfa Antibiotics 02/12/2018 Fatigue-reaction Medications Medication Sig Dispensed Refills Start Date End Date Status cyanocobalamin (LMAUVUAF03) 1000 MCG/ML injection 6 01/07/2018 Active rOPINIRole (REQUIP) 1 MG tablet TK 1 TO 2 TS PO HS 3 12/26/2017 Active gabapentin (NEURONTIN) 100 MG capsule 0 2017 Active ALPRAZolam XR (XANAX XR) 0.5 MG 24 hour release tablet TK 1 T PO QD 0 12/06/2017 Active levothyroxine (SYNTHROID) 25 MCG tablet 2 12/18/2017 Active venlafaxine (EFFEXORXR) 150 MG 24 hour release capsule TK 1 C PO QAM 0 01/01/2018 Active buPROPion (WELLBUTRIN XL) 150 MG 24 hour release tablet Take 150 mg by mouth daily. 0 Active predniSONE (DELTASONE) 1 MG tablet Take 0.25 mg by mouth daily. 0 Active Active Problems Problem Noted Date Diagnosed Date Depression 02/12/2018 Anxiety 02/12/2018 Hypothyroidism 02/12/2018 Migraine 02/12/2018 Osteoporosis 02/12/2018 Crohn's disease 02/12/2018 Raynaud's syndrome 02/12/2018 B12 deficiency 02/12/2018 History of lumbar laminectomy 02/12/2018 Social History Tobacco Use Types Packs/Day Years Used Date Smoking Tobacco: Never Assessed Sex and Gender Information Value Date Recorded Sex Assigned at Not on file Gender Identity Not on file Sexual Orientation Not on file Last Filed Vital Signs Vital Sign Reading Time Taken Comments Blood Pressure 126/79 02/24/2018 1:15 PM EVENT PLANNING INTERN Pulse 90 02/24/2018 1:15 PM EVENT PLANNING INTERN Temperature - - Respiratory Rate - - Oxygen Saturation - - Inhaled Oxygen Concentration - - Weight 53.1 kg (117 lb) 02/24/2018 1:15 PM EVENT PLANNING INTERN Height 153.7 cm (5' 0.5) 02/24/2018 1:15 PM EVENT PLANNING INTERN Body Mass Index 22.47 02/24/2018 1:15 PM EVENT PLANNING INTERN Plan of Treatment Health Maintenance Due Date Last Done Comments Colon Cancer Screening Plan Due 1955 Hep C Screening (Preventive Services) 1955 Medicare Annual Wellness Visit 1955 Mammogram 1955 Cholesterol 11/29/1999 Zoster/Shingles (1 of 2) 2004 Pneumococcal 65+ Yrs (2 - PCV) 11/29/2019 05/12/2015 COVID-19 Vaccine (3 - season) 2022 06/13/2020, 05/15/2020 Influenza (#1) 2022 02/10/2020, 12/10, 12/07/2012, Additional history exists DTaP/Tdap/Td (3 - Tdap) 04/09/2023 04/09/2013, 04/06 HepA Aged Out 08/31/2013 No longer eligi ble based on patient's age to complete this topic HepB Aged Out No longer eligi ble based on patient's age to complete this topic Hib Aged Out No longer eligi ble based on patient's age to complete this topic IPV (Polio) Aged Out No longer eligi ble based on patient's age to complete this topic MCV4 Aged Out No longer eligi ble based on patient's age to complete this topic Care Teams Reliability Technicians Relationship Specialty Start Date End Date Steffanie Hitchcock MD [address] [place] [address] PCP - General Family Practice 02/10/18
--- OUTSIDE RECORDS SUMMARY | 2023-04-22 06:19 | XMS_ITS | Encounter Summary ---
Author Name Unknown Organization [facility] Address [address] [place] [address] Care Team Providers Care Sql Consultant Name Role Phone Edison Tam MD Primary Care Provider Edison Tam MD Primary Care Provider [phone] Sheri Casey MD Unavailable [phone] Alphonso Billy MD Unavailable [phone] Roland Holt MD Unavailable [phone] Amita Ryan MD Unavailable Sid Lilly MD Unavailable Neda Boland RN Unavailable Edison Tam MD Unavailable Encounter Details Date Type Department Care Team (Late st Contact Info) Description 11/07/2012 MyC Medical Advice [facility] Adult Rheumatology 2nd Floor, Clinic [address]A [address] [address] Debbi Juarez MD [address] [place] [address] Social History Tobacco Use Types Packs/Day [...] on filedocumented in this encounter Care Teams Sql Consultant Relationship Specialty Start Date End Date Edison Tam MD [address] [place] [address] PCP - General Family Practice 09/21/11 07/22/14 Edison Tam MD [address] [place] [address] PCP - General Family Practice 07/23/14 Sheri Casey MD [address] [place] [address] 276 [place] [address] Pulmonary Disease 07/23/14 Alphonso Billy MD [address] [place] [address] Cardiology 08/12/14 12/26/17 Roland Holt MD [address] [place] [address] Resident Student in organized health care education/training program 05/12/15 09/24/18 Amita Ryan MD [address] [place], [place] [address] [address] Internal Medicine 12/19/15 Sid Lilly MD [address] [place] [address] [place] [address] Orthopaedic Surgery 02/22/16 Neda Boland RN Nurse Coordinator Neurology 02/23/16 09/01/18 Edison Tam MD [address] [place] [address] 4 [place] [address] Assigned PCP 07/30/19 2 documented as of this encounter
--- OUTSIDE RECORDS SUMMARY | 2023-04-22 06:19 | XMS_ITS | Encounter Summary ---
Author Name Unknown Organization [facility] Address [address] [place] [address] Care Team Providers Care Director Service Name Role Phone Edison Tam MD Primary Care Provider Edison Tam MD Primary Care Provider Sheri Casey MD Unavailable [phone] Alphonso Billy MD Unavailable [phone] Roland Holt MD Unavailable Amita Ryan MD Unavailable Sid Lilly MD Unavailable [phone] Neda Boland RN Unavailable [phone] Edison Tam MD Unavailable [phone] Encounter Details Date Type Department Care Team (Late st Contact Info) Description 11/17/2012 [facility] Medicine GI - 1E [facility] 1st Floor, Clinic [address]E [address] [place] [phone] Charan Salazar MD [address] [facility] 208 [place] [address] Social History Tobacco Use Types Packs/Day Years [...] filedocumented in this encounter Care Teams Director Service Relationship Specialty Start Date End Date Edison Tam MD [address] [place] [address] PCP - General Family Practice 09/21/11 07/22/14 Edison Tam MD [address] [place] [address] PCP - General Family Practice 07/23/14 Sheri Casey MD [address] [place] [address] 276 [place] [address] Pulmonary Disease 07/23/14 Alphonso Billy MD [address] [place] [address] Cardiology 08/12/14 12/26/17 Roland Holt MD [address] [place] [address] Resident Student in organized health care education/training program 05/12/15 09/24/18 Amita Ryan MD [address] [place] [address] [address] Internal Medicine 12/19/15 Sid Lilly MD [address] [place] [address], [place] [address] Orthopaedic Surgery 02/22/16 Neda Boland, NANDINI Nurse Coordinator Neurology 02/23/16 09/01/18 Edison Tam MD [address] [place] [address] 4 [place], [place] 384915 Assigned PCP 07/30/19 2 documented as of this encounter
[2023-04-22] MEDS: SODIUM CHLORIDE 0.9 % (FLUSH) 10 ML SYRINGE IVF (07:20)
[2023-04-22] MEDS: CLINDAMYCIN 900 MG/50 ML-D5W IVPB (07:43)
[2023-04-22] MEDS: BUPIVACAINE 0.25% 30 ML 20 ML INJECTION (09:19)
--- NOTE | 2023-04-22 09:38 | W.ANESCHARGE ---
Anesthesia Charges Start Date/Time Anesthesia Start Date: 04/22/23 Anesthesia Start Time: 07:30 Stop Date/Time Anesthesia Stop Date: 04/22/23 Anesthesia Stop Time: 09:38
[2023-04-22] MEDS: fentaNYL 100 MCG/2 ML inj 50 MCG IVP ×2 (09:47→09:55)
[2023-04-22] MEDS: ONDANSETRON 2 MG/ML inj 4 MG IVP (09:47)
--- NOTE | 2023-04-22 09:54 | PM.GSPRC ---
Operative Note Date of procedure: 04/22/23 Pre-op diagnosis: Biliary dyskinesia Post-op diagnosis: Same Type of Procedure: Laparoscopic cholecystectomy Indications: The patient is a 67-year-old female with a history of Crohn's disease, not currently on immuno modulating agents, who developed right-sided abdominal and back pain as well as nausea and weight loss which has been persistent. Workup revealed gallstones, however her symptom timing was not entirely consistent with biliary colic. Therefore HIDA scan was obtained. This showed an ejection fraction of 10%. After discussion of risks and benefits, she agreed to proceed with cholecystectomy. Procedure Description: After discussing the risks and benefits of the procedure, the patient signed informed consent.? The operative site was marked and the patient was brought to the operating room and placed on the operating table in supine position.? Care was taken to pad the patient's pressure points.?? The patient was then intubated by anesthesia.?? The operative site was then prepped and draped in the usual sterile fashion.? A time-out was then performed. Entrance to the abdomen was gained via a 5 mm Visiport in the left upper quadrant. The abdomen was insufflated and briefly surveyed for signs of injury. There was none. There were adhesions to the abdominal wall noted below inferior to the port as well as along the midline. There was a small window underneath the falciform ligament. I passed the camera underneath this and there was space for the two right-sided ports. Therefore along the costal margin and in the right lateral abdomen, 2 5 mm ports were placed under direct vision. Once this was done, the camera was placed in the superior-most port. I was then able to take down the adhesions along the abdominal wall using a combination of sharp dissection with a scissor and blunt dissection with my grasper. Great care was taken here to avoid injury to the bowel. Once a large enough space was obtained, I was able then to place a 10 mm port just above the umbilicus. I then took down the remaining adhesions between the stomach, omentum and the falciform ligament which enabled for me to visualize the gallbladder. The patient was then placed in reverse Trendelenburg position with the right side up. The gallbladder fundus was grasped and retracted cephalad. A small amount of dissection was needed to free omental adhesions from the gallbladder. The infundibulum was grasped. A combination of hook cautery and blunt dissection was used to carefully dissect out the cystic duct and artery until they could clearly be seen entering the gallbladder without any intervening structures. The gallbladder was dissected off the cystic plate to achieve the critical view. Once this was achieved the cystic duct and artery were each clipped with 2 clips proximally and 1 clip distally and transected with the scissors. The gallbladder was then taken off of the liver bed and removed from the abdomen using an Endo-Catch bag. The gallbladder bed was surveyed for hemostasis which appeared adequate. A small amount of bile which had spilled was suctioned from the abdomen. Two small gallstones were also retrieved. There did not appear to be any additional spilled gallstones after copious lavage. The ports were then removed and the abdomen desufflated. The umbilical port fascia was closed with 0 Vicryl. The skin was closed with absorbable subcuticular suture. Instrument sponge and needle counts were correct at the end of the case. The patient was then woken and transferred to the PACU in stable condition. ? The patient tolerated the procedure well. Findings: Gallbladder with stones. Extensive intra-abdominal adhesions from prior surgeries. Anesthesia: GETA Surgeon: Claribel Bear MD Estimated blood loss (mL): 15 Specimen: Gallbladder Condition: stable Disposition: PACU
[2023-04-22] MEDS: METOCLOPRAMIDE HCL 5 MG/ML INJ 10 MG IVP (10:02)
[2023-04-22] MEDS: LACTATED RINGERS 1000 ML 1,000 ML 50 ML IV (11:18)
--- NOTE | 2023-04-22 12:05 | W.ANESCHARGE ---
Anesthesia Charges Start Date/Time Anesthesia Start Date: 04/22/23 Anesthesia Start Time: 07:30 Stop Date/Time Anesthesia Stop Date: 04/22/23 Anesthesia Stop Time: 09:38
== END 2023-04-22 11:35 | disposition home or self-care (01) ==
PROVIDERS: PCP Student in an Organized Health Care Education/Training Program; Visit Provider Surgery
PROC: 0FT44ZZ Resection of Gallbladder, Percutaneous Endoscopic Approach (ICD-10-PCS; CPT 47562; principal; 2023-04-22 07:30)
DX: K80.20 Calculus of gallbladder without cholecystitis without obstruction (principal); K66.0 Peritoneal adhesions (postprocedural) (postinfection)
CPT/HCPCS: 47562; 00790; 88304; J0330; J0665; J0736; J1100; J1630; J1885; J2405; J2704; J2710; J2765; J3010; J3490; J7120

== ENCOUNTER 2023-04-24 09:19 | Inpatient (IN) | payer MEDICARE, OTHER, SELFPAY ==
[2023-04-24] VITALS (40 sets, daily range): BP systolic 89–137; BP diastolic 58–81; PULSE 92–111; RESP 16–22; TEMP 36.8–37.4; O2SAT 81–94; BMI 24.6; BMI 25.3
--- NOTE | 2023-04-24 09:48 | CT_ITS ---
INDICATION: POSTOP PAIN. TECHNIQUE: POSTCONTRAST CT ABDOMEN AND PELVIS PERFORMED. 64 ML ISOVUE 370 ADMINISTERED INTRAVENOUSLY. COMPARISON: 02/12/2023. FINDINGS: PARENCHYMAL DENSITIES ARE PRESENT WITHIN THE LOWER LOBES BILATERALLY ALONG WITH A SMALL RIGHT PLEURAL EFFUSION. HIATAL HERNIA IS PRESENT MEASURING 5.5 CM. THIS WAS PRESENT PREVIOUSLY. POSTOPERATIVE CHANGES OF CHOLECYSTECTOMY ARE PRESENT. THERE IS A SMALL COLLECTION OF FLUID WITHIN THE GALLBLADDER FOSSA MEASURING APPROXIMATELY 2.8 X 2.3 CM WHICH ALSO CONTAINS SMALL BUBBLES OF AIR. THE COMMON BILE DUCT IS DILATED, MORE SO WHEN COMPARED TO THE PRIOR STUDY, MEASURING UP TO 13 MM. THE PANCREATIC DUCT IS ALSO DILATED. NO PANCREATIC MASS. NO CALCIFIED STONE IN THE DISTAL COMMON BILE DUCT ALTHOUGH THERE IS SOMEWHAT ABRUPT TERMINATION OF THE DUCT AT THE AMPULLA. CURVILINEAR DENSITIES ARE PRESENT INFERIOR TO THE LIVER. THERE ARE 2 METALLIC DENSITIES WITHIN THE RIGHT UPPER QUADRANT MESENTERIC FAT, 1 IS NEW SINCE THE PRIOR STUDY. ADRENAL GLANDS ARE NORMAL. NO HYDRONEPHROSIS. NO SOLID RENAL MASS. THE SPLEEN IS NOT ENLARGED. INCIDENTAL SPLENULES. THE BLADDER IS WITHIN NORMAL LIMITS. NORMAL PELVIC STRUCTURES. DISTENDED SMALL BOWEL AND LARGE BOWEL LOOPS ARE PRESENT WITHOUT TRANSITION POINT COMPATIBLE WITH ILEUS. NO FRACTURE IS PRESENT. MULTILEVEL DEGENERATIVE CHANGES. NO INTRAHEPATIC MASS. IMPRESSION: POSTOPERATIVE CHANGES OF CHOLECYSTECTOMY WITH A FLUID COLLECTION IN THE GALLBLADDER FOSSA MEASURING 2.8 X 2.3 CM CONCERNING FOR BILOMA. THERE IS ALSO INCREASED DISTENTION OF THE COMMON BILE DUCT AND PANCREATIC DUCT COMPARED TO THE PRIOR STUDY WITH RELATIVE ABRUPT TERMINATION OF THE DISTAL DUCT WHICH COULD REPRESENT STRICTURE ALTHOUGH A NONCALCIFIED STONE IS NOT EXCLUDED. FURTHER EVALUATION WITH ERCP RECOMMENDED. BILATERAL LOWER LOBE INFILTRATES/ATELECTASIS WITH SMALL RIGHT PLEURAL EFFUSION. POSTOPERATIVE ILEUS.
--- NOTE | 2023-04-24 09:51 | ED_ITS ---
HPI - Abdominal Pain General Chief Complaint: Abdominal Pain Stated Complaint: Post op gallbladder pain Time Seen by Provider: 04/24/23 09:24 History of Present Illness HPI narrative: This 67-year-old female comes in with abdominal pain. She had her gallbladder removed 2 days ago and has been taking hydrocodone without any relief. She called the clinic today and was told to come here because she might have a bile leak. She does report a fever last night at around 102? F but presents here with normal temperature. She describes diffuse abdominal pain and states that her urine seems more odorous. She has a history of Crohn's disease. Related Data Home Medications Medication Instructions Recorded Confirmed Floradxix PO 10/10/21 02/05/23 acetaminophen 500 mg tablet 500 - 1,000 mg PO DAILY PRN 10/10/21 04/24/23 calcium carbonate 500 mg calcium 1,250 mg PO DAILY 10/10/21 04/24/23 (1,250 mg) tablet cholecalciferol (vitamin D3) 25 1,000 unit PO DAILY 10/10/21 04/24/23 mcg (1,000 unit) tablet cyanocobalamin (vitamin B-12) 500 mcg IM .Every 30 Days 10/10/21 04/24/23 1,000 mcg/mL injection solution esomeprazole magnesium 40 mg 40 mg PO DAILY 10/10/21 04/24/23 capsule,delayed release guaifenesin 600 mg tablet, 600 mg PO BID 10/10/21 02/05/23 extended release 12 hr lidocaine 5 % topical ointment 1 applic topical .Daily as needed 10/10/21 04/18/23 PRN lysine HCl 500 mg capsule 500 mg PO BID 10/10/21 04/24/23 potassium gluconate 595 mg (99 mg) 595 mg PO BID 10/10/21 04/24/23 tablet prasterone (dhea) 50 mg tablet 100 mg PO DAILY 10/10/21 04/24/23 ropinirole 1 mg tablet 2 mg PO .Bedtime 10/10/21 04/24/23 amitriptyline 25 mg tablet 25 mg PO QPM 04/18/23 04/24/23 amlodipine 5 mg tablet 5 mg PO DAILY 04/18/23 04/24/23 albuterol sulfate 90 mcg/actuation 1 - 2 puff inhalation Q4H PRN 04/24/23 04/24/23 aerosol inhaler dyspnea folic acid 1 mg tablet 1 mg PO DAILY 04/24/23 04/24/23 venlafaxine 150 mg 150 mg PO DAILY 04/24/23 04/24/23 capsule,extended release 24 hr Previous Rx's Medication Instructions Recorded levothyroxine 25 mcg tablet 25 mcg PO DAILY #30 tabs 05/07/22 sucralfate 1 gram tablet 1 g PO BID #30 tabs 02/27/23 hydrocodone 5 mg-acetaminophen 325 1 tab PO Q4H PRN Pain #5 tabs 04/22/23 mg tablet Allergies Allergy/AdvReac Type Severity Reaction Status Date / Time morphine Allergy Intermediate Rash Verified 04/24/23 11:22 Penicillins Allergy Intermediate Rash Verified 04/24/23 13:38 tetracycline Allergy Unknown Verified 04/24/23 11:22 adalimumab Allergy Rash Verified 04/24/23 11:22 ibuprofen Allergy Nausea Verified 04/24/23 11:22 infliximab Allergy intolerance Verified 04/24/23 11:22 - doesn't work for pt loratadine Allergy dry mouth, Verified 04/24/23 11:22 rapid heart rate meperidine Allergy Rash Verified 04/24/23 11:22 pregabalin Allergy feels Verified 04/24/23 11:22 intoxicated tramadol Allergy rash, Verified 04/24/23 11:22 itching Sulfa (Sulfonamide AdvReac Intermediate Fatigued Verified 04/24/23 13:38 Antibiotics) Review of Systems Status of ROS Reports: 10 or more systems reviewed and unremarkable except as noted in History and below Narrative Constitutional: No weight gain or loss. She reports a fever last evening. Eyes: No discharge. No vision changes. HENT: No congestion, no sore throat, no ear pain. Cardiovascular: No chest pain, no palpitations. Respiratory: No shortness of breath, no wheezes, no cough. Gastrointestinal: No vomiting, no diarrhea. Abdominal pain postop cholecystectomy. Genitourinary: No dysuria, no hematuria. She states her urine seems more odorous. Musculoskeletal: Normal range of motion. Skin: No rashes, no pruritis. Neurological: No dizziness, weakness, sensory change, speech change. Endo/Heme/Allergies: No bruising or bleeding. No polydipsia. Pysch: no suicidality, no anxiety, no insomnia. All other systems reviewed and are negative. PFSH [facility] Medical History (Updated 04/24/23 @ 15:08 by Catracho Bone MD) Vitamin B12 deficiency ?E53.8 - Deficiency of other specified B group vitamins (ICD-10) Inflammation of eye ?H57.89 - Other specified disorders of eye and adnexa (ICD-10) History of left bundle branch block (LBBB) ?Z86.79 - Personal history of other diseases of the circulatory system (ICD- 10) Short of breath on exertion (~2018) ?R06.02 - Shortness of breath (ICD-10) Renal mass (2012) ?N28.89 - Other specified disorders of kidney and ureter (ICD-10) Raynaud's phenomenon ?I73.00 - Raynaud's syndrome without gangrene (ICD-10) Osteoporosis ?M81.0 - Age-related osteoporosis without current pathological fracture (ICD- 10) Migraine headache ?G43.909 - Migraine, unspecified, not intractable, without status migrainosus (ICD-10) Lupus erythematosus ?L93.0 - Discoid lupus erythematosus (ICD-10) Hypothyroidism ?E03.9 - Hypothyroidism, unspecified (ICD-10) History of vitamin D deficiency ?Z86.39 - Personal history of other endocrine, nutritional and metabolic disease (ICD-10) History of hyperglycemia ?Z86.39 - Personal history of other endocrine, nutritional and metabolic disease (ICD-10) History of carbon monoxide poisoning ?Z91.89 - Other specified personal risk factors, not elsewhere classified (ICD-10) Encounter for counseling regarding advance directives (04/14/18) ?Z71.89 - Other specified counseling (ICD-10) Cyst of ovary ?N83.209 - Unspecified ovarian cyst, unspecified side (ICD-10) Crohn's disease ?K50.90 - Crohn's disease, unspecified, without complications (ICD-10) Chronic sinusitis ?J32.9 - Chronic sinusitis, unspecified (ICD-10) Surgical History (Updated 10/27/21 @ 12:30 by Steffanie Hitchcock MD) Status post repair of nerve ?Z98.890 - Other specified postprocedural states (ICD-10) History of surgery on right wrist (1984) ?Z98.890 - Other specified postprocedural states (ICD-10) History of lumbar laminectomy (2008) ?Z98.890 - Other specified postprocedural states (ICD-10) History of left oophorectomy ?Z90.721 - Acquired absence of ovaries, unilateral (ICD-10) History of colectomy (1979) ?Z90.49 - Acquired absence of other specified parts of digestive tract (ICD- 10) History of carpal tunnel surgery of right wrist ?Z98.890 - Other specified postprocedural states (ICD-10) History of bilateral cataract extraction (05/2018) ?Z98.41 - Cataract extraction status, right eye (ICD-10) ?Z98.42 - Cataract extraction status, left eye (ICD-10) Family History (Updated 02/05/23 @ 11:05 by Claribel Bear MD) Paternal Grandmother Stroke, Onset Age: 86 Sister MS (multiple sclerosis) Sjogren's disease Mother Lung cancer, Onset Age: 86 Other Asthma Rheumatoid arthritis Social History (Updated 09/22/21 @ 10:13 by Jeffery Shah) Narrative: does not drink alcohol exercises 5-6 times per week- walk, [place] non-smoker - remote hx of 10 pack years single, , 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 HEENT: Normocephalic, atraumatic. Neck: Normal range of motion. Nontender. Supple. Heart: Regular. No murmurs. Normal rate. Intact distal pulses. Lungs: Clear to auscultation. No chest discomfort. No wheezes, rhonchi, or rales. Abdomen: Normal bowel sounds. Diffuse tenderness. No rebound tenderness. Genitalia: Deferred. Back: No midline tenderness. Normal range of motion. Extremities: Normal range of motion. No injury. Skin: Intact. No rash. Warm. No erythema or pallor. Neurologic: No altered sensation. No weakness. Alert and oriented. Psychiatric: No suicidality. No anxiety or depression. No insomnia. Nursing notes and vitals signs are reviewed. Const: Vital Signs, click to edit/add: Vital Signs - 24 hr 04/24/23 09:29 04/24/23 10:20 04/24/23 10:21 Temperature 98.3 F Pulse Rate 97 96 Pulse Rate [Pulse Oximeter] 98 Respiratory Rate 16 Blood Pressure 120/60 Blood Pressure [Ri ght Upper Arm] 131/67 Pulse Oximetry 91 81 L 83 L Oxygen Delivery Me thod Room Air Oxygen Flow Rate 04/24/23 10:30 04/24/23 10:32 04/24/23 10:45 Temperature Pulse Rate 92 94 95 Pulse Rate [Pulse Oximeter] Respiratory Rate 16 Blood Pressure 118/60 Blood Pressure [Ri ght Upper Arm] Pulse Oximetry 91 90 88 Oxygen Delivery Me thod Nasal Cannula Oxygen Flow Rate 2 04/24/23 11:17 04/24/23 11:20 04/24/23 11:20 Temperature Pulse Rate 106 H 101 H 101 H Pulse Rate [Pulse Oximeter] Respiratory Rate Blood Pressure 118/64 118/64 Blood Pressure [Ri ght Upper Arm] Pulse Oximetry 88 90 90 Oxygen Delivery Me thod Oxygen Flow Rate 04/24/23 11:30 04/24/23 11:32 04/24/23 11:33 Temperature Pulse Rate 98 101 H 101 H Pulse Rate [Pulse Oximeter] Respiratory Rate Blood Pressure 125/58 L Blood Pressure [Ri ght Upper Arm] Pulse Oximetry 91 91 87 L Oxygen Delivery Me thod Oxygen Flow Rate 04/24/23 11:45 04/24/23 12:00 04/24/23 12:02 Temperature Pulse Rate 104 H 100 Pulse Rate [Pulse Oximeter] Respiratory Rate Blood Pressure 89/65 L Blood Pressure [Ri ght Upper Arm] Pulse Oximetry 87 L 83 L Oxygen Delivery Me thod Oxygen Flow Rate 04/24/23 12:03 04/24/23 12:15 04/24/23 12:30 Temperature Pulse Rate 100 96 99 Pulse Rate [Pulse Oximeter] Respiratory Rate Blood Pressure 111/62 Blood Pressure [Ri ght Upper Arm] Pulse Oximetry 88 90 87 L Oxygen Delivery Me thod Room Air Oxygen Flow Rate 04/24/23 12:31 04/24/23 12:45 04/24/23 13:02 Temperature 98.3 F Pulse Rate 97 106 H 111 H Pulse Rate [Pulse Oximeter] Respiratory Rate 16 Blood Pressure 119/61 137/81 Blood Pressure [Ri ght Upper Arm] Pulse Oximetry 87 L 92 92 Oxygen Delivery Me thod Nasal Cannula Room Air Oxygen Flow Rate 2 2 04/24/23 13:03 04/24/23 13:15 04/24/23 13:30 Temperature Pulse Rate 108 H 110 H 101 H Pulse Rate [Pulse Oximeter] Respiratory Rate Blood Pressure Blood Pressure [Ri ght Upper Arm] Pulse Oximetry 92 93 92 Oxygen Delivery Me thod Oxygen Flow Rate 04/24/23 13:32 04/24/23 13:45 Temperature Pulse Rate 103 H 101 H Pulse Rate [Pulse Oximeter] Respiratory Rate 16 Blood Pressure 123/68 Blood Pressure [Ri ght Upper Arm] Pulse Oximetry 91 90 Oxygen Delivery Me thod Oxygen Flow Rate Course Vital Signs Vital signs: Initial Vital Signs Temperature 98.3 F 04/24/23 09:29 Temperature Source Temporal Artery Scan 04/24/23 09:29 Pulse Rate 98 04/24/23 09:29 Pulse Rhythm Regular 04/24/23 09:29 Respiratory Rate 16 04/24/23 09:29 Blood Pressure 131/67 04/24/23 09:29 Blood Pressure Mean 88 04/24/23 09:29 Blood Pressure Position Supine 04/24/23 09:29 Pulse Oximetry 91 04/24/23 09:29 Oxygen Delivery Method Room Air 04/24/23 09:29 Vital Signs Temperature 98.3 F 04/24/23 09:29 Pulse Rate 98 04/24/23 09:29 Respiratory Rate 16 04/24/23 09:29 Blood Pressure 131/67 04/24/23 09:29 Pulse Oximetry 91 04/24/23 09:29 Oxygen Delivery Method Room Air 04/24/23 09:29 Temperature 98.3 F 04/24/23 13:02 Pulse Rate 101 H 04/24/23 13:45 Respiratory Rate 16 04/24/23 13:32 Blood Pressure 123/68 04/24/23 13:32 Pulse Oximetry 90 04/24/23 13:45 Oxygen Delivery Method Room Air 04/24/23 13:02 Oxygen Flow Rate 2 04/24/23 13:02 Medications Administered Medications: Discontinued Medications Generic Name Dose Route Start Last Admin Trade Name Freq PRN Reason Stop Dose Admin Hydromorphone HCl 0.5 mg 04/24/23 09:48 04/24/23 10:12 Hydromorphone 0.5 Mg/0.5 Ml Inj IVP 04/24/23 09:49 0.5 mg ONCE ONE Administration Hydromorphone HCl 0.2 mg 04/24/23 13:38 04/24/23 13:56 Hydromorphone 0.5 Mg/0.5 Ml Inj IVP 04/24/23 13:39 0.2 mg ONCE ONE Administration Sodium Chloride 1,000 mls @ 1,000 mls/hr 04/24/23 10:00 04/24/23 10:49 0.9 % Sodium Chloride 1000 Ml IV 04/24/23 10:59 Infused .Q1H ASHLEY Infusion Ertapenem 1 gm/ Sodium 100 mls @ 200 mls/hr 04/24/23 13:29 04/24/23 14:22 Chloride IVPB 04/24/23 13:30 Infused ONCE ONE Infusion Ondansetron HCl 4 mg 04/24/23 09:48 04/24/23 10:12 Ondansetron 2 Mg/Ml Inj IVP 04/24/23 09:49 4 mg ONCE ONE Administration MDM - Abdominal Pain MDM Narrative Medical decision making narrative: This patient comes in with postoperative pain having had a cholecystectomy 2 days ago. She has Crohn's disease history and is taking medication to manage this. She reports a fever last evening. An IV is established an order placed for CT imaging of her abdomen and pelvis. Her white blood cell count returns slightly elevated at 12.27. Electrolytes are normal range. Her liver enzymes are on the upper edge of normal without any evidence of hyper bilirubinemia. S he does have obvious urinary tract infection and CT scan of the abdomen and pelvis shows suspicion for a pneumonia also. CT imaging of her abdomen does show some fluid in the gallbladder fossa with possibility of a biloma. I spoke with Dr. Bear, who did this surgery 2 days ago. She came to evaluate the patient and did look at the images. She does not think that this represents a biloma or an obstructive process. An MRCP is ordered with results pending. The patient will be admitted into the hospital. She did receive an IV dose of ertapenem. She also received 2 separate doses of Dilaudid for pain relief. Lab Data Labs: Lab Results 04/24/23 04/24/23 Range/Units 10:10 10:15 WBC 12.27 H (4.50-11.00) K/uL RBC 4.39 (4.00-5.20) m/uL Hgb 13.5 (12.0-16.0) gm/dL Hct 41.5 (33.0-51.0) % MCV 95 (80-100) fL MCH 31 (26-34) pg MCHC 33 (32-36) gm/dL RDW Coeff of Brayden 12.6 (11.5-15.5) % Plt Count 187 (140-440) K/uL Neut % (Auto) 82.2 H (42.0-72.0) % Lymph % (Auto) 7.6 L (20-44) % O'Brien % (Auto) 9.5 (0.0-11.0) % Eos % (Auto) 0.4 (0.0-7.0) % Baso % (Auto) 0.2 (0.0-3.0) % Neut # (Auto) 10.10 H (1.7-7.0) K/uL Lymph # (Auto) 0.90 (0.90-2.90) K/uL O'Brien # (Auto) 1.20 H (0.00-0.90) K/UL Eos # (Auto) 0.00 (0.00-0.50) K/uL Baso # (Auto) 0.00 (0.00-0.30) K/uL Abs Immat Gran (auto) 0.00 (0.00-0.30) K/uL Imm/Tot Granulo (auto) 0.1 % Sodium 136 (135-149) mmol/L Potassium 3.7 (3.6-5.1) mmol/L Chloride 102 (96-114) mmol/L Carbon Dioxide 26 (20-32) mmol/L Anion Gap 8 (7-15) mEq/L BUN 12 (7-30) mg/dL Creatinine 1.0 (0.5-1.5) mg/dL Estimated Creat Clear 40.63 Estimated GFR 61 ml/min Glucose 92 (60-115) mg/dL Calcium 8.8 (8.4-10.6) mg/dL Total Bilirubin 0.9 (0.1-1.5) mg/dL Direct Bilirubin 0.3 (0.0-0.5) mg/dL AST 37 H (12-35) U/L ALT 38 H (4-35) U/L Alkaline Phosphatase 68 (40-150) U/L Total Protein 6.7 (6.0-8.3) g/dL Albumin 3.9 (3.3-5.0) g/dL Lipase 25 (23-300) U/L Urine Color Yellow (Yellow) Urine Appearance Cloudy A (Clear) Urine pH 6.0 (5.0-8.5) Ur Specific Marion 1.015 (1.000-1.030) Urine Protein 1+ A (Negative) Urine Glucose (UA) Negative (Negative) Urine Ketones 2+ A (Negative) Urine Blood 2+ A (Negative) Urine Nitrite Positive A (Negative) Urine Bilirubin Negative (Negative) Urine Urobilinogen 0.2 (0.2-1.0) Ur Leukocyte Esterase 3+ A (Negative) Urine RBC 0-2 (0-2) Urine WBC >100 A (0-5) Ur Squamous Epith Cells Few (None-Few) Urine Bacteria Many A (None) Discharge Plan Discharge Clinical Impression: Acute postoperative abdominal pain, Urinary tract infection, Pneumonia Patient Disposition: Admitted As Inpatient Condition: Unchanged Prescriptions: No Action lysine HCl 500 mg capsule 500 mg PO BID potassium gluconate 595 mg (99 mg) tablet 595 mg PO BID acetaminophen 500 mg tablet 500 - 1,000 mg PO DAILY PRN Rx Instructions: NO MORE THAN 4000 MG/DAY ropinirole 1 mg tablet 2 mg PO .Bedtime cholecalciferol (vitamin D3) 25 mcg (1,000 unit) tablet 1,000 unit PO DAILY prasterone (dhea) 50 mg tablet 100 mg PO DAILY esomeprazole magnesium 40 mg capsule,delayed release(DR/EC) 40 mg PO DAILY guaifenesin 600 mg tablet extended release 12hr 600 mg PO BID lidocaine 5 % ointment 1 applic topical .Daily as needed PRN Rx Instructions: Apply a thin film topically to affected area(s) daily as needed cyanocobalamin (vitamin B-12) 1,000 mcg/mL solution 500 mcg IM .Every 30 Days Rx Instructions: Patient takes 500mcg every 30 days calcium carbonate 500 mg calcium (1,250 mg) tablet 1,250 mg PO DAILY Floradxix PO amlodipine 5 mg tablet 5 mg PO DAILY amitriptyline 25 mg tablet 25 mg PO QPM hydrocodone-acetaminophen 5-325 mg Tablet 1 tab PO Q4H PRN (Reason: Pain) Qty: 5 0RF folic acid 1 mg tablet 1 mg PO DAILY venlafaxine 150 mg capsule,extended release 24hr 150 mg PO DAILY albuterol sulfate 90 mcg/actuation HFA aerosol inhaler 1 - 2 puff INHALATION Q4H PRN (Reason: dyspnea) levothyroxine 25 mcg tablet 25 mcg PO DAILY Qty: 30 0RF sucralfate 1 gram tablet 1 g PO BID Qty: 30 0RF Follow Up/Referrals: LAMONTE NORWOOD DO [Primary Care Provider] -
--- OUTSIDE RECORDS SUMMARY | 2023-04-24 09:53 | XMS_ITS | Clinical Summary ---
Author Name Unknown Organization [facility] Address [place], [place] [address] Care Team Providers Care Signing Teacher Name Role Phone Lamonte Martinez Primary Care Provider [phone] Chao Schmidt MD Unavailable [phone] Allergies Active Allergy Reactions Criticality Noted Date [...] History of left oophorectomy 11/30/2021 Overview: In [place]. During colon resection. Prior to 1979. History of colon resection 11/30/2021 Overview: 1980s. Current chronic use of systemic steroids 022 Actinic keratoses 11/30/2021 Overview: Dermatology through [facility]. Toxic effect of carbon monoxide, unintentional 0 11/30/2021 Overview: [id number]. Boiler. Continues to have occasional cough, and subjective difficulty breathing. Spondylolisthesis, grade 1 11/02/2019 Overview: With bilateral pars defect at L4-L5 L5 - S1 - bilaterat pars defects Retrolisthesis 11/02/2019 Overview: L1 and L2 Raynaud's syndrome 02/12/2018 Migraine 02/12/2018 History of lumbar laminectomy 02/12/2018 Overview: 2. In [place]. Prior to 2009. Depression 02/12/2018 B12 deficiency [...] Encounters Date Type Department Care Team Description 04/24/2023 Telephone [facility] [address] [place] [address] Lamonte Martinez DO Pain, fever after Saturday's surgery 04/22/2023 Orders Only [facility] Scanner 1 scan: (1-Ord) [facility], LAPAROSCOPIC CHOLECYSTECTOMY, 04/22/2023 04/22/2023 Lab Requisition [facility] [phone] Claribel Bear MD 04/18/2023 1:30 PM ARMORED TRANSPORT SERVICE MANAGER Ancillary Procedure [facility] [address] [place] [address] 04/18/2023 Travel 04/11/2023 1:15 PM ARMORED TRANSPORT SERVICE MANAGER Office Visit [facility] [address] [place] [address] Lamonte Martinez DO Medicare ANNUAL (subsequent) Visit (67 year old female ); Preoperative Exam (04/22/2023 - Dr. Bear - [facility] - Gallbladder ) 04/11/2023 Refill [facility] [address] [place] [address] Lamonte Martinez DO Refill Request (CYANOCOBALAMIN INJECTION SOLUTION 1000MCG/ML) 04/11/2023 Travel 04/09/2023 10:30 AM ARMORED TRANSPORT SERVICE MANAGER Office Visit [facility] [address] [facility] [address] [place] [address] Sheryl Obregon MBBS Consult (Elevated CK-MB level/Pt denies chest discomfort, dizziness, edema and SOB at this time/Pt wants to discuss about amlodipine /Per pt medications are managed by PCP and refills not needed at this time ) 04/09/2023 Travel 03/07/2023 Orders Only [facility] Scanner 1 scan: (1-Ord) [facility], 03/07/2023 03/05/2023 8:00 AM ARMORED TRANSPORT SERVICE MANAGER Ancillary Procedure [facility] [address] [place] [address] 03/05/2023 Travel 03/02/2023 Refill [facility] [address] [place] [address] Lamonte Martinez DO Refill Request (Levothyroxine) 02/26/2023 Telephone [facility] [address] [facility] [address] [place] [address] Arsenio Machado MD Appointment (ANY CARD) 02/25/2023 Refill [facility] [address] [place] [address] Lamonte Martinez DO Refill Request (Ropinirole) 02/25/2023 Orders Only [facility] [address] [place] [address] Lamonte Martinez DO <No scans attached> 02/22/2023 2:41 PM ARMORED TRANSPORT SERVICE MANAGER - 02/22/2023 11:59 PM ARMORED TRANSPORT SERVICE MANAGER Hospital Encounter [facility] [address] [facility] [address] [place] [address] Lamonte Martinez DO Elevated CK-MB level 02/22/2023 Travel 02/20/2023 1:20 PM ARMORED TRANSPORT SERVICE MANAGER Office Visit [facility] [address] [place] [address] Chao Schmidt MD Musculoskeletal Problem (Consult low back pain, history of 2 back surgeries.) 02/20/2023 Travel 02/12/2023 Orders Only [facility] Scanner 1 scan: (1-Ord) BHAVESH CT ABD PELVIS W CONTRAST, 02/12/2023 from [...] Years Used Date Smoking Tobacco: Former Cigarettes uit: 1990 Smokeless Tobacco: Never Tobacco Cessation:Counseling [...] Comments Blood Pressure 116/75 04/11/2023 1:42 PM ARMORED TRANSPORT SERVICE MANAGER Pulse 89 04/11/2023 1:42 PM ARMORED TRANSPORT SERVICE MANAGER Temperature 36.8 ??C (98.3 ??F) 02/20/2023 1:25 PM CS T Respiratory Rate 14 04/09/2023 10:4 8 AM ARMORED TRANSPORT SERVICE MANAGER Oxygen Saturation 98% 04/11/2023 1:42 PM ARMORED TRANSPORT SERVICE MANAGER Inhaled Oxygen Concentration - - Weight 62.5 kg (137 lb 11.2 oz) 04/11/2023 1:42 PM ARMORED TRANSPORT SERVICE MANAGER Height 154.9 cm (5' 1) 04/11/2023 1:42 PM ARMORED TRANSPORT SERVICE MANAGER Body Mass Index 26.02 04/11/2023 1:42 PM ARMORED TRANSPORT SERVICE MANAGER Plan of Treatment Health Maintenance Due Date Last Done Comments Zoster (shingles) series for age 50+ (1 of 2) 2004 Pneumococcal series for age 65+ (3 of [...] age 75 10/25/203110/24, 10/24/2021 ([facility] Tdap Completed 04/09/2013, 04/06/2008 Hepatitis C screening for ag e 18-79 Completed 04/17/2022 COVID-19 vaccine series Completed 12/12/19 23, 06/30/2022, 11/24/2021, Additional history exists Influenza for age 65+ Completed 12/11/2022 , 11/24/2021, 01/11/2021, Additional history exists DEXA/DXA scan for age 65+ Completed 04/18/2023 Procedures Procedure Name Priority Date/Time Associated Diagnosis Comments SCAN-OPERATIVE/PROCEDU RE REPORT 04/22/2023 12:00 AM ARMORED TRANSPORT SERVICE MANAGER XR DXA BONE DENSITY 2 SITES AXIAL Routine 04/18/2023 1:49 PM ARMORED TRANSPORT SERVICE MANAGER Menopause TSH Routine 04/11/2023 2:37 PM ARMORED TRANSPORT SERVICE MANAGER Hypothyroidism, unspecified type LIPID PANEL W REFLEX MEASURED LDL Routine 04/11/2023 2:37 PM ARMORED TRANSPORT SERVICE MANAGER Lipid screening GLUCOSE, FASTING Routine 04/11/2023 2:37 PM ARMORED TRANSPORT SERVICE MANAGER Screening for diabetes mellitus (DM) EKG 12 LEAD Routine 04/09/2023 11:11 AM ARMORED TRANSPORT SERVICE MANAGER Dyspnea, unspecified type SCAN-NUCLEAR MEDICINE 03/07/2023 12:00 AM ARMORED TRANSPORT SERVICE MANAGER ECHO TTE COMPLETE WO CONTRAST Routine 03/05/2023 8:32 AM ARMORED TRANSPORT SERVICE MANAGER Fever, unspecified fever cause Elevated CK-MB level MR CARDIAC WWO Routine 02/22/2023 4:09 PM ARMORED TRANSPORT SERVICE MANAGER Elevated CK-MB level SCAN-CT INTERPRETATION 12:00 AM ARMORED TRANSPORT SERVICE MANAGER from Last 3 Months Results * SCAN-OPERATIVE/PROCEDURE REPORT (04/22/2023 12:00 AM ARMORED TRANSPORT SERVICE MANAGER) Scanner OTHER * (ABNORMAL) XR DXA BONE DENSITY 2 SITES AXIAL [81555.1] (04/18/2023 1:49 PM ARMORED TRANSPORT SERVICE MANAGER) Anatomical Region Laterality Modality Spine, HIPS, HIPL, HIPR Other Impressions 04/23/2023 2:04 PM ARMORED TRANSPORT SERVICE MANAGER Osteoporosis. RECOMMENDATIONS: The National Osteoporosis Foundation recommends pharmacologic treatment for patients with T-scores of -2.5 or less, patients with prior history of fragility fractures, or patients with 10-year probability of greater than 3% at hips or greater than 20% of suffering major osteoporotic fractures. Recommend continued optimization of calcium and vitamin D intake through dietary means and/or supplementation and regular exercise. Consider pharmacologic therapy for osteoporosis. Follow-up bone density reading in 2 years if therapy initiated to assess therapeutic efficacy. Zeina Braswell PA-C [facility] 04/23/2023 ?? Narrative 04/23/2023 2:04 PM ARMORED TRANSPORT SERVICE MANAGER For Patients: Results are automatically released to your [facility] ([employer]) account once available, in compliance with federal regulations. This means that you may see your results before your provider has had a chance to review them. Please allow 2-3 business days for your provider to comment on the results. XR DXA Bone Mineral Density (BMD) EXAM LOCATION: [address] [address] PATIENT NAME: Maria E Coley DATE OF : 1955 EXAM DATE: 04/18/2023 REQUESTING PROVIDER: Lamonte Martinez, DO GENDER AT : female HEIGHT: 5' 1 (04/11/2023) WEIGHT: ??137 lb 11.2 oz (04/11/2023) MENOPAUSAL STATUS: Postmenopausal RACE/ETHNICITY: Patient Declined RISK FACTORS: Height Loss (2 inches or more), Smoking (prior), and White Race CURRENT MEDICATION FOR BONE LOSS: NONE INDICATION: Follow-up of existing osteoporosis and Post-Menopause COMPARISON DATE(S): None DXA scans are compared to prior studies for a patient only when the two (or more) studies were performed on the same scanner. It is not possible to compare data generated on one scanner to data from another because there are not standards in DXA equipment. This applies even if the two scanners are made by the same chief controller tower. PROCEDURE: Dual-energy x-ray absorptiometry performed with routine technique. Reporting is completed in the form of a T-score. The T-score represents the standard deviation from peak bone mass based on young healthy adult. A Z-score is used for diagnosis in premenopausal women, and for men under the age of 50. FINDINGS: RESULT LUMBAR SPINE L1 - L2 ??BMD: 1.411 g/cm2 T-Score: + 2.0 Z-Score: + 3.7 Change from prior: ??None RESULTS FEMUR Left femoral neck BMD: 0.677 g/cm2 T-Score: - 2.6 Z-Score: - 0.9 Change from prior: ??None Right femoral neck BMD: 0.632 g/cm2 T-Score: - 2.9 Z-Score: - 1.3 Change from prior: ??None Left hip BMD: 0.738 g/cm2 T-Score: - 2.1 Z-Score: - 0.7 Change from prior: ??None Right hip BMD: 0.744 g/cm2 T-Score: - 2.1 Z-Score: - 0.7 Change from prior: ??None WHO criteria: Normal: T-score at or above -1 SD Osteopenia: T-score between -1.1 and -2.4 SD Osteoporosis: T-score at or below -2.5 SD Adei Michelle DO DEXA * (ABNORMAL) LIPID PANEL W REFLEX MEASURED LDL (04/11/2023 2:37 PM ARMORED TRANSPORT SERVICE MANAGER) [facility] CHOLESTEROL,TOTAL 193 100 - 199 mg/dL 04/12/2023 1:49 AM ARMORED TRANSPORT SERVICE MANAGER [facility] [employer] [facility] Comment: Cholesterol, Total Reference Ranges Desirable <200 mg/dL Borderline 200-239 mg/dL High >=240 mg/dL TRIGLYCERIDES 252(H) <150 mg/dL 04/12/2023 1:49 AM ARMORED TRANSPORT SERVICE MANAGER [facility] [employer] [facility] HDL CHOLESTEROL 78 >40 mg/dL 1:49 AM ARMORED TRANSPORT SERVICE MANAGER [facility] NON-HDL CHOLESTEROL 115 <145 mg/dl 04/12/2023 1:49 AM ARMORED TRANSPORT SERVICE MANAGER [facility] CHOL/HDL RATIO 2.47 <4.50 04/12/2023 1:49 AM ARMORED TRANSPORT SERVICE MANAGER [facility] LDL CHOLESTEROL 65 <=130 mg/dL 04/12/2023 1:49 AM [facility] VLDL CHOLESTEROL 50(H) <=30 mg/dL 04/12/2023 1:49 AM ARMORED TRANSPORT SERVICE MANAGER [facility] PROVIDER ORDERED STATUS RANDOM 04/12/2023 1:49 AM ARMORED TRANSPORT SERVICE MANAGER [facility] Blood BLOOD SPECIMEN / Unknown Venipuncture / Unknown 04/11/2023 2:37 PM ARMORED TRANSPORT SERVICE MANAGER 04/11/2023 2:39 PM ARMORED TRANSPORT SERVICE MANAGER Mamta Promodity CHEMISTRY Performing Organization Address [facility]/ZIP Co de Phone Number [facility] [address] [address], [place] * TSH (04/11/2023 2:37 PM ARMORED TRANSPORT SERVICE MANAGER) TSH 1.68 0.27 - 4.20 uIU/mL 04/12/2023 1:49 AM ARMORED TRANSPORT SERVICE MANAGER [facility] Blood BLOOD SPECIMEN / Unknown Venipuncture / Unknown 04/11/2023 2:37 PM ARMORED TRANSPORT SERVICE MANAGER 04/11/2023 2:39 PM ARMORED TRANSPORT SERVICE MANAGER Narrative [facility] - 04/12/2023 1:49 AM ARMORED TRANSPORT SERVICE MANAGER In Adults, TSH values between 5.00 and 10.00 uIU/ml do not necessarily indicate the presence of Hypothyroidism. Correlation with clinical findings such as presence of goiter and/or Thyroperoxidase (TPO) Antibody may be helpful. For more information please refer to BATSHEVA 2004; 291: 228-238. Mamtabrad Martinez Eniram CHEMISTRY Performing Organization Address [facility] Co de Phone Number [facility] [address] [address], [place] * GLUCOSE, FASTING [91664.2] (04/11/2023 2:37 PM ARMORED TRANSPORT SERVICE MANAGER) GLUCOSE 81 70 - 99 mg/dL 04/11/2023 2:50 PM ARMORED TRANSPORT SERVICE MANAGER [facility] Blood BLOOD SPECIMEN / Unknown Venipuncture / Unknown 04/11/2023 2:37 PM ARMORED TRANSPORT SERVICE MANAGER 04/11/2023 2:39 PM ARMORED TRANSPORT SERVICE MANAGER Ade Dang Le Eniram CHEMISTRY Performing Organization Address City/[facility]/ZIP Co de Phone Number [facility] [address] [place] [address], [place] [phone] * EKG 12 LEAD (04/09/2023 11:11 AM ARMORED TRANSPORT SERVICE MANAGER) Interpretation Normal sinus rhythm Incomplete LBBB Low anterior infarct Abnormal ECG Ventricular Rate 80 BPM Atrial Rate 80 BPM P-R Interval 154 ms QRS Duration 102 ms QT 380 ms QTc 438 ms P [place] 17 degrees R [place] -19 degrees T [place] 61 degrees 04/09/2023 11:1 1 AM ARMORED TRANSPORT SERVICE MANAGER 04/09/2023 4:08 PM ARMORED TRANSPORT SERVICE MANAGER Sheryl Obregon MBBS EKG ORD * SCAN-NUCLEAR MEDICINE (03/07/2023 12:00 AM ARMORED TRANSPORT SERVICE MANAGER) Anatomical Region Laterality Modality Other Scanner OTHER * ECHO TTE COMPLETE WO CONTRAST (03/05/2023 8:32 AM ARMORED TRANSPORT SERVICE MANAGER) AORTIC VALVE MEAN PG 4 mmHg EJECTION FRACTION 57 % LVEDD 3.6 cm Anatomical Region Laterality Modality Ultrasound 03/05/2023 8:03 AM ARMORED TRANSPORT SERVICE MANAGER Narrative 03/05/2023 8:44 AM ARMORED TRANSPORT SERVICE MANAGER ECHOCARDIOGRAM MARIA E COLEY ? Accession#: ?? [id number] : ?1955 67 years Study Date: ?? 03/05/2023 8:03:28 AM Gender: F ?BP: ? 143/82 mmHg Height: 155.00 cm ?BSA: ?1.61 m? ? ? Weight: 62.00 kg ? Tech: ? MHR ? Referring MD: LAMONTE MARTINEZ Site: ? [facility] Reading Location: MOBILE OP Patient Location: Outpatient. [...] . This study was interpreted by an [facility] accredited facility. ??Final ?? Procedure Note Ambrosio Johnson MD - 03/05/2023 ECHOCARDIOGRAM MARIA E COLEY : 1955 67 years Study Date: 03/05/2023 8:03:28 AM Gender: F BP: 143/82 mmHg Height: 155.00 cm BSA: 1.61 m? ? ? Weight: 62.00 kg Tech: R Referring MD: LAMONTE MARTINEZ Site: [facility] Reading Location: MOBILE OP Patient Location: Outpatient. [...] . This study was interpreted by an [facility] accredited facility. Final Lamonte Thiagoadalid DO ECHO ORD * MR CARDIAC W/WO CONTRAST (02/22/2023 4:09 PM ARMORED TRANSPORT SERVICE MANAGER) Anatomical Region Laterality Modality HEART, THORAX Magnetic Resonan ce 02/22/2023 2:42 PM ARMORED TRANSPORT SERVICE MANAGER Narrative 02/24/2023 11:52 AM ARMORED TRANSPORT SERVICE MANAGER ?[facility] ? CMR Report ??MRN: ?[id number] ?Name: ?MARIA E COLEY ?: ?Scan Date: [...] ? ml/m^2 ? 64 ??(53-87) ? 57 ??(19-86) ?? ESV ?? ml ? 38 ??(20-57) [...] Normal/Hyper ? Apical Lateral ? Normal/Hyper ? [place] ? Normal/Hyper ? + + + + +----- ----- ------+ RV Segments ? Wall Motion ?? Hyperenhancement ? Interpretation + + + + +----- ----- ------+ RV Basal Anterior ? RV Basal Inferior ? RV Mid ? RV Apical ? ' + + + +----- ----- ------' SCAN INFO ===== GENERAL ----- --- ?SCANNER ?SOLUTIONS MANAGER: ??SIEMENS ?MODEL: ??Avanto_fit ?CONTRAST AGENT ?GD CONCENTRATION: ??1.0 M ?VOLUME ADMINISTERED: ??6.5 ml ?DOSAGE: ??0.11 mmol/kg ?SETUP ?REFERRING PHYSICIAN: ??LAMONTE MARTINEZ ?ATTENDING PHYSICIAN: ??LAMONTE MARTINEZ BILLING ===== Patient Account ?[id number] ICD10 Codes ?R74.8 Report generated by [employer], a product of [employer] Procedure Note Jef Eagle MD - 02/24/2023 [facility] CMR Report Name: MARIA E COLEY : [...] Normal/Hyper Apical Inferior Normal/Hyper Apical Lateral Normal/Hyper [place] Normal/Hyper + + + + +----- ----- ------+ RV Segments Wall Motion Hyperenhancement Interpretation + + + + +----- ----- ------+ RV Basal Anterior RV Basal Inferior RV Mid RV Apical ' + + + +----- ----- ------' SCAN INFO ===== GENERAL ----- --- SCANNER SOLUTIONS MANAGER: SIEMENS MODEL: Avanto_fit CONTRAST AGENT GD CONCENTRATION: 1.0 M VOLUME ADMINISTERED: 6.5 ml DOSAGE: 0.11 mmol/kg SETUP REFERRING PHYSICIAN: LAMONTE MARTINEZ ATTENDING PHYSICIAN: LAMONTE MARTINEZ BILLING ===== Patient Account [id number] ICD10 Codes R74.8 Report generated by [employer], a product of [employer] Lamonte Martinez MR * SCAN-CT INTERPRETATION (02/12/2023 12:00 AM ARMORED TRANSPORT SERVICE MANAGER) Anatomical Region Laterality Modality Other Scanner OTHER from Last 3 Months Care Teams Signing Teacher Relationship Specialty Start Date End Date Lamonte Martinez DO [address] [place] [address] PCP - General Family Practice 05/17/22 Chao Schmidt MD [address] [place] [address] Consulting Physician Sports Medicine - Family Medicine 02/20/23
--- OUTSIDE RECORDS SUMMARY | 2023-04-24 09:53 | XMS_ITS | Clinical Summary ---
Author Name Unknown Organization [facility] Address [address] [place] [address] Care Team Providers Care Dealer Card Room Name Role Phone Edison Tam MD Primary Care Provider Sheri Casey MD Unavailable [phone] Amita Ryan MD Unavailable [phone] Sid Lilly MD Unavailable Allergies Active Allergy [...] this topic Medical Devices Implanted Type Area Cutting Machine Tender Device Identifier Shelf Expiration Date Model / Serial / Lot Nerve Guide [id number] Neuragen Png-220 Charge Per Cm= 2 Units Implanted:Qty: 1 on 04/16/2013 by Marisol Hathaway MD at [facility] Left: Thumb [employer] 01/08/2015 PNG-[id number] / / [id number] Description:INDEX FINGER Advance Directives For more information, please contact: [phone] Latest Code Status on File Code Status Date Activated Date Inactivated Comments Full Code 02/06/2012 11:20 AM 02/06/2012 7:13 PM Code Status History Code Status Date Activated Date Inactivated Comments Full Code 01/21/2012 7:33 PM 01/22/2012 8:29 PM Full Code 12/03/2011 5:37 PM 01/21/2012 7:33 PM Full Code 12/03/2011 10:30 AM 12/03/2011 5:37 PM Care Teams Dealer Card Room Relationship Specialty Start Date End Date Edison Tam MD [address] [facility] [address] [place] [address] PCP - General Family Practice 07/23/14 Sheri Casey MD [address] [facility] [address] [facility] [address] [place], [place] [address] Pulmonary Disease 07/23/14 Amita Ryan MD [address] [facility] [address] [id number] [place] [address] Internal Medicine 12/19/15 Sid Lilly MD [address] [place] [address] Orthopaedic Surgery 02/22/16
--- OUTSIDE RECORDS SUMMARY | 2023-04-24 09:54 | XMS_ITS | Encounter Summary ---
Author Name Unknown Organization [facility] Address [address] [place] [address] Care Team Providers Care Natural Resource Specialist Name Role Phone Edison Tam MD Primary Care Provider [phone] Sheri Casey MD Unavailable Alphonso Billy MD Unavailable [phone] Roland Holt MD Unavailable Amita Ryan MD Unavailable [phone] Sid Lilly MD Unavailable Neda Boland RN Unavailable Edison Tam MD Unavailable Reason for Visit * Reason Onset Date Comments MyChart Communication 10/04/2016 Encounter Details Date Type Department Care Team (Latest Contact Info) Description 10/04/2016 [facility] [address] [facility] 4th [place] [address] Edison Tam MD [address] [facility] 4 [place] [address] MyChart Communication Social History Tobacco [...] Depression Total Score: 14 016 7:50 AM SHIPPING SPECIALIST documented as of this encounter Care Teams Natural Resource Specialist Relationship Specialty Start Date End Date Edison Tam MD [address] [facility] [address] [place], [place] [address] PCP - General Family Practice 07/23/14 Sheri Casey MD [address] [facility] [address] [place], [place] [address] Pulmonary Disease 07/23/14 Alphonso Billy MD [address] [place], [place] [address] Cardiology 08/12/14 12/26/17 Roland Holt MD [address] [place], [place] [address] Resident Student in organized health care education/training program 05/12/15 09/24/18 Amita Ryan MD [address] [facility] [id number] [place], [place] [address] Internal Medicine 12/19/15 Sid Lilly MD [address] [facility] [address] [place], [place] [address] Orthopaedic Surgery 02/22/16 Neda Boland, RN Nurse Coordinator Neurology 02/23/16 09/01/18 Edison Tam MD [address] [address] Assigned PCP 07/30/19 04/30/20 documented as of this encounter
--- OUTSIDE RECORDS SUMMARY | 2023-04-24 09:54 | XMS_ITS | Encounter Summary ---
Author Name Unknown Organization [place] Address [address] [place] [address] Care Team Providers Care Insurance Verification Representative Name Role Phone Edison Tam MD Primary Care Provider [phone] Sheri Casey MD Unavailable [phone] Alphonso Billy MD Unavailable [phone] Roland Holt MD Unavailable Amita Ryan MD Unavailable [phone] Sid Lilly MD Unavailable Neda Boland RN Unavailable [phone] Edison Tam MD Unavailable Encounter Details Date Type Department Care Team (Late st Contact Info) Description 04/21/2017 [facility] [address] [facility] 4th [place] [address] Edison Tam MD [address] [place] [address] Social History Tobacco Use Types Packs/Day [...] Total Score: 3 01/29/20 17 10:28 AM DATA ASSISTANT documented as of this encounter Care Teams Insurance Verification Representative Relationship Specialty Start Date End Date Edison Tam MD [address] [facility] [address] [place] [address] PCP - General Family Practice 07/23/14 Sheri Casye MD [address] [facility] [address] [place] [address] Pulmonary Disease 07/23/14 Alphonso Billy MD 420 [place] [address] Cardiology 08/12/14 12/26/17 Roland Holt MD [address] [place] [address] Resident Student in organized health care education/training program 05/12/15 09/24/18 Amita Ryan MD [address] [facility] [id number] [place], [place] [address] Internal Medicine 12/19/15 Sid Lilly MD [facility] [address] [place] [address] Orthopaedic Surgery 02/22/16 Neda Boland, RN Nurse Coordinator Neurology 02/23/16 09/01/18 Edison Tam MD [address] [place] [address] Assigned PCP 07/30/19 04/30/20 documented as of this encounter
--- OUTSIDE RECORDS SUMMARY | 2023-04-24 09:54 | XMS_ITS | Encounter Summary ---
Author Name Unknown Organization [place] Address [address] [place] [address]. [place] [address] Care Team Providers Care Food Manager Name Role Phone Edison Tam MD Primary Care Provider +[phone]- [phone] Sheri Caesy MD Unavailable [phone] Alphonso Billy MD Unavailable [phone] Roland Holt MD Unavailable [phone] Amita Ryan MD Unavailable Sid Lilly MD Unavailable Neda Boland RN Unavailable Edison Tam MD Unavailable Encounter Details Date Type Department Care Team (Late st Contact Info) Description 09/03/2017 [facility] Medical Advice Health Endocrinology 909 [facility] SE 3rd [place] [address] Laisha Moraes MD 420 [facility] 101 [place] [address] Social History Tobacco Use Types [...] Total Score: 3 01/29/20 17 10:28 AM COUNTY MANAGER documented as of this encounter Care Teams Food Manager Relationship Specialty Start Date End Date Edison Tam MD 909 [facility] 4 [place] [address] PCP - General Family Practice 07/23/14 Sheri Casey MD 420 [facility] 276 [place], [place] 904575 Pulmonary Disease 07/23/14 Alphonso Billy MD 420 [place] [address] Cardiology 08/12/14 12/26/17 Roland Holt MD [address] [place] [address] Resident Student in organized health care education/training program 05/12/15 09/24/18 Amita Ryan MD 909 [facility] [id number] [place], [place] 8008[address] Internal Medicine 12/19/15 Sid Lilly MD [address] [place] [address] Orthopaedic Surgery 02/22/16 Neda Boland, RN Nurse Coordinator Neurology 02/23/16 09/01/18 Edison Tam MD [address] [place] [address] Assigned PCP 07/30/19 04/30/20 documented as of this encounter
--- OUTSIDE RECORDS SUMMARY | 2023-04-24 09:54 | XMS_ITS | Encounter Summary ---
Author Name Unknown Organization [place] Address [address] [place] [address]. [place] [address] Care Team Providers Care Languages And Literature Instructor Name Role Phone Edison Tam MD Primary Care Provider +[phone]- [phone] Sheri Casey MD Unavailable [phone] Alphonso Billy MD Unavailable [phone] Roland Holt MD Unavailable [phone] Amita Ryan MD Unavailable Sid Lilly MD Unavailable Neda Boland RN Unavailable Edison Tam MD Unavailable [phone] Encounter Details Date Type Department Care Team (Late st Contact Info) Description 07/05/2017 [facility] Endocrinology 909 [facility] SE 3rd [place] [address] Laisha Moraes MD 420 [facility] 101 [place] [address] Social History Tobacco Use Types [...] Total Score: 3 01/29/20 17 10:28 AM CRAP GAME BOX PERSON documented as of this encounter Care Teams Languages And Literature Instructor Relationship Specialty Start Date End Date Edison Tam MD 909 [facility] 4 [place] [address] PCP - General Family Practice 07/23/14 Sheri Casey MD 420 [facility] 276 [place], [place] 150695 Pulmonary Disease 07/23/14 Alphonso Billy MD 420 [place] [address] Cardiology 08/12/14 12/26/17 Roland Holt MD [address] [place] [address] Resident Student in organized health care education/training program 05/12/15 09/24/18 Amita Ryan MD 909 [facility] [id number] [place], [place] 826495 Internal Medicine 12/19/15 Sid Lilly MD [address] [place] [address] Orthopaedic Surgery 02/22/16 Neda Boland, RN Nurse Coordinator Neurology 02/23/16 09/01/18 Edison Tam MD [address] [place] [address] Assigned PCP 07/30/19 04/30/20 documented as of this encounter
--- OUTSIDE RECORDS SUMMARY | 2023-04-24 09:54 | XMS_ITS | Encounter Summary ---
Author Name Unknown Organization [place] Address [address] [place] [address] Care Team Providers Care Supervisor Refractory Products Name Role Phone Edison Tam MD Primary Care Provider +[phone]- [phone] Sheri Casey MD Unavailable [phone] Alphonso Billy MD Unavailable [phone] Roland Holt MD Unavailable Amita Ryan MD Unavailable Sid Lilly MD Unavailable Neda Boland RN Unavailable Edison Tam MD Unavailable [phone] Encounter Details Date Type Department Care Team (Late st Contact Info) Description 09/02/2017 [facility] 9 [facility] 4th [place] [address] Edison Tam MD [address] [place] [address] Social History Tobacco Use Types Packs/Day [...] Total Score: 3 01/29/20 17 10:28 AM RETORT ENGINEER documented as of this encounter Care Teams Supervisor Refractory Products Relationship Specialty Start Date End Date Edison Tam MD 909 [facility] 4 [place], [place] 609095 PCP - General Family Practice 07/23/14 Sheri Casey MD 420 [facility] 276 [place], [place] 669435 Pulmonary Disease 07/23/14 Alphonso Billy MD 420 [place], [place] 335875 Cardiology 08/12/14 12/26/17 Roland Holt MD 420 [place] [address] Resident Student in organized health care education/training program 05/12/15 09/24/18 Amita Ryan MD 909 [facility] [id number] [place], [place] 172[address] Internal Medicine 12/19/15 Sid Lilly MD [address] [place], [place] 753884 Orthopaedic Surgery 02/22/16 Neda Boland, RN Nurse Coordinator Neurology 02/23/16 09/01/18 Edison Tam MD [address] [place] [address] FL 4 [place] [address] Assigned PCP 07/30/19 04/30/20 documented as of this encounter
--- OUTSIDE RECORDS SUMMARY | 2023-04-24 09:54 | XMS_ITS | Encounter Summary ---
Author Name Unknown Organization [facility] Address [address] [place] [address] Care Team Providers Care Propulsion Generator Repairer Name Role Phone Edison Tam MD Primary Care Provider +[phone]- [phone] Sheri Casey MD Unavailable [phone] Alphonso Billy MD Unavailable [phone] Roland Holt MD Unavailable Amita Ryan MD Unavailable Sid Lilly MD Unavailable Neda Boland RN Unavailable [phone] Edison Tam MD Unavailable [phone] Encounter Details Date Type Department Care Team (Late st Contact Info) Description 06/14/2016 [facility] Medical Advice [facility] Neurology 909 [facility] 3rd [place] [address] Neda Boland, RN Social History [...] Total Score: 14 05/12/ 016 7:50 AM RN CAMP documented as of this encounter Care Teams Propulsion Generator Repairer Relationship Specialty Start Date End Date Edison Tam MD 909 [place] [place] [address] PCP - General Family Practice 07/23/14 Sheri Casey MD 420 [facility] 276 [address] Pulmonary Disease 07/23/14 Alphonso Billy MD [address] [place] [address] Cardiology 08/12/14 12/26/17 Roland Holt MD [address] [place] [address] Resident Student in organized health care education/training program 05/12/15 09/24/18 Amita Ryan MD 9 [facility] [id number] [id number] Internal Medicine 12/19/15 Sid Lilly MD [facility] [place] [address] [address] Orthopaedic Surgery 02/22/16 Neda Boland, RN Nurse Coordinator Neurology 02/23/16 09/01/18 Edison Tam MD [address] [place] [address] Assigned PCP 07/30/19 04/30/20 documented as of this encounter
--- OUTSIDE RECORDS SUMMARY | 2023-04-24 09:54 | XMS_ITS | Encounter Summary ---
Author Name Unknown Organization [facility] Address [address] [place] [address]. [place] [address] Care Team Providers Care Shorthand Reporter Name Role Phone Edison Tam MD Primary Care Provider +[phone]- [phone] Sheri Casey MD Unavailable [phone] Alphonso Billy MD Unavailable [phone] Roland Holt MD Unavailable Amita Ryan MD Unavailable Sid Lilly MD Unavailable Neda Boland RN Unavailable Edison Tam MD Unavailable [phone] Encounter Details Date Type Department Care Team (Late st Contact Info) Description 06/22/2017 [facility] [place] Advice Health Endocrinology 909 [facility] SE 3rd [place] [address] Laisha Moraes MD 420 [facility] 101 [place] [address] Social History Tobacco Use Types [...] Total Score: 3 01/29/20 17 10:28 AM LIFEGUARD documented as of this encounter Care Teams Shorthand Reporter Relationship Specialty Start Date End Date Edison Tam MD 909 [facility] 4 [place] [address] PCP - General Family Practice 07/23/14 Sheri Casey MD 420 [facility] 276 [place], [place] [address]365 Pulmonary Disease 07/23/14 Alphonso Billy MD 420 [place] [address] Cardiology 08/12/14 12/26/17 Roland Holt MD [address] [place] [address] Resident Student in organized health care education/training program 05/12/15 09/24/18 Amita Ryan MD 909 [facility] [id number] [place], [place] 7857[address] Internal Medicine 12/19/15 Sid Lilly MD [address] [place] [address] Orthopaedic Surgery 02/22/16 Nead Boland, RN Nurse Coordinator Neurology 02/23/16 09/01/18 Edison Tam MD [address] [place] [address] Assigned PCP 07/30/19 04/30/20 documented as of this encounter
--- OUTSIDE RECORDS SUMMARY | 2023-04-24 09:54 | XMS_ITS | Encounter Summary ---
Author Name Unknown Organization [facility] Address [address] [place] [address]. [place] [address] Care Team Providers Care Insulation Nozzleman Name Role Phone Edison Tam MD Primary Care Provider +[phone]- [phone] Sheri Casey MD Unavailable [phone] Alphonso Billy MD Unavailable [phone] Roland Holt MD Unavailable [phone] Amita Ryan MD Unavailable Sid Lilly MD Unavailable [phone] Neda Boland RN Unavailable [phone] Edison Tam MD Unavailable Encounter Details Date Type Department Care Team (Late st Contact Info) Description 07/21/2017 [facility] [place] Endocrinology 909 [facility] SE 3rd [place] [address] Laisha Moraes MD 420 [facility] 101 [place] [address] Social History Tobacco Use Types [...] Total Score: 3 01/29/20 17 10:28 AM SHOP MECHANIC HELPER documented as of this encounter Care Teams Insulation Nozzleman Relationship Specialty Start Date End Date Edison Tam MD 909 [facility] 4 [place] [address] PCP - General Family Practice 07/23/14 Sheri Casey MD 420 [facility] 276 [place], [place] 8[address]175 Pulmonary Disease 07/23/14 Alphonso Billy MD 420 [place] [address] Cardiology 08/12/14 12/26/17 Roland Holt MD [address] [place] [address] Resident Student in organized health care education/training program 05/12/15 09/24/18 Amita Ryan MD 909 [facility] [id number] [place], [place] 326775 Internal Medicine 12/19/15 Sid Lilly MD [address] [place] [address] Orthopaedic Surgery 02/22/16 Neda Boland, RN Nurse Coordinator Neurology 02/23/16 09/01/18 Edison Tam MD [address] [place] [address] Assigned PCP 07/30/19 04/30/20 documented as of this encounter
--- OUTSIDE RECORDS SUMMARY | 2023-04-24 09:54 | XMS_ITS | Encounter Summary ---
Author Name Unknown Organization [place] Address [address] [place] [address]. [place] [address] Care Team Providers Care Manager Medicare Marketing Name Role Phone Edison Tam MD Primary Care Provider [phone]- [phone] Sheri Casey MD Unavailable [phone] Alphonso Billy MD Unavailable [phone] Roland Holt MD Unavailable Amita Ryan MD Unavailable Sid Lilly MD Unavailable Neda Boland RN Unavailable [phone] Edison Tam MD Unavailable [phone] Encounter Details Date Type Department Care Team (Late st Contact Info) Description 07/09/2017 [facility] Medical Advice Health Endocrinology 909 [facility] SE 3rd [place] [address] Laisha Moraes MD 420 [facility] 101 [place] [address] Social History Tobacco Use Types [...] Total Score: 3 01/29/20 17 10:28 AM NAVAL AIRCREWMAN HELICOPTER documented as of this encounter Care Teams Manager Medicare Marketing Relationship Specialty Start Date End Date Edison Tam MD 909 [facility] 4 [place] [address] PCP - General Family Practice 07/23/14 Sheri Casey MD 420 [facility] 276 [place], [place] 6[address]295 Pulmonary Disease 07/23/14 Alphonso Billy MD 420 [place] [address] Cardiology 08/12/14 12/26/17 Roland Holt MD [address] [place] [address] Resident Student in organized health care education/training program 05/12/15 09/24/18 Amita Ryan MD 909 [facility] [id number] [place], [place] 021305 Internal Medicine 12/19/15 Sid Lilly MD [address] [place] [address] Orthopaedic Surgery 02/22/16 Neda Boland, RN Nurse Coordinator Neurology 02/23/16 09/01/18 Edison Tam MD [address] [place] [address] Assigned PCP 07/30/19 04/30/20 documented as of this encounter
--- OUTSIDE RECORDS SUMMARY | 2023-04-24 09:54 | XMS_ITS | Encounter Summary ---
Author Name Unknown Organization [place] Address [address] [place] [address]. [place] [address] Care Team Providers Care Candy Maker Helper Name Role Phone Edison Tam MD Primary Care Provider [phone]- [phone] Sheri Casey MD Unavailable [phone] Alphonso Billy MD Unavailable [phone] Roland Hlot MD Unavailable Amita Ryan MD Unavailable Sid Lilly MD Unavailable Neda Boland RN Unavailable Edison Tam MD Unavailable Encounter Details Date Type Department Care Team (Late st Contact Info) Description 09/03/2017 [facility] Medical Advice Health Endocrinology 909 [facility] SE 3rd [place] [address] Laisha Moraes MD 420 [facility] 101 [place] [address] Social History Tobacco Use Types [...] Total Score: 3 01/29/20 17 10:28 AM JOB MOLDER documented as of this encounter Care Teams Candy Maker Helper Relationship Specialty Start Date End Date Edison Tam MD 909 [facility] 4 [place] [address] PCP - General Family Practice 07/23/14 Sheri Casey MD 420 [facility] 276 [place], [place] 594715 Pulmonary Disease 07/23/14 Alphonso Billy MD 420 [place] [address] Cardiology 08/12/14 12/26/17 Roland Holt MD [address] [place] [address] Resident Student in organized health care education/training program 05/12/15 09/24/18 Amita Ryan MD 909 [facility] [id number] [place], [place] 104095 Internal Medicine 12/19/15 Sid Lilly MD [address] [place] [address] Orthopaedic Surgery 02/22/16 Neda Boland, RN Nurse Coordinator Neurology 02/23/16 09/01/18 Edison Tam MD [address] [place] [address] Assigned PCP 07/30/19 04/30/20 documented as of this encounter
--- OUTSIDE RECORDS SUMMARY | 2023-04-24 09:54 | XMS_ITS | Encounter Summary ---
Author Name Unknown Organization [place] Address [address] [place] [address] Care Team Providers Care Supervisor Major Appliance Assembly Name Role Phone Edison Tam MD Primary Care Provider + [phone] Sheri Casey MD Unavailable [phone] Alphonso Billy MD Unavailable [phone] Roland Holt MD Unavailable Amita Ryan MD Unavailable [phone] Sid Lilly MD Unavailable Neda Boland RN Unavailable [phone] Edison Tam MD Unavailable [phone] Encounter Details Date Type Department Care Team [...] Total Score: 14 05/12/ 016 7:50 AM GAS OPERATIONS ANALYST documented as of this encounter Care Teams Supervisor Major Appliance Assembly Relationship Specialty Start Date End Date Edison Tam MD [address] [place] [address] PCP - General Family Practice 07/23/14 Sheri Casey MD 420 [facility] 276 [place] [address] Pulmonary Disease 07/23/14 Alphonso Billy MD 420 [place] [address] Cardiology 08/12/14 12/26/17 Roland Holt MD 420 [place] [address] Resident Student in organized health care education/training program 05/12/15 09/24/18 Amita Ryan MD [address] [place] [address] [id number] [place] [address] Internal Medicine 12/19/15 Sid Lilly MD [address] [place] [address] [place] [address] Orthopaedic Surgery 02/22/16 Neda Boland, NANDINI Nurse Coordinator Neurology 02/23/16 09/01/18 Edison Tam MD [address] [place] [address] 950215 Assigned PCP 07/30/19 04/30/20 documented as of this encounter
--- OUTSIDE RECORDS SUMMARY | 2023-04-24 09:54 | XMS_ITS | Referral Summary ---
Author Name Unknown Organization [place] Address [facility] [place] [address] Care Team Providers Care Golf Cart Maker Name Role Phone Edison Tam MD Primary Care Provider Sheri Casey MD Unavailable [phone] Amita Ryan MD Unavailable [phone] Sid Lilly MD Unavailable Allergies Active Allergy [...] on file Medical Devices Implanted Type Area Telegraph Office Telephone Clerk Device Identifier Shelf Expiration Date Model / Serial / Lot Nerve Guide [id number] Neuragen Png-220 Charge Per Cm= 2 Units Implanted:Qty: 1 on 04/16/2013 by Marisol Hathaway MD at [facility] Left: Thumb [employer] 01/08/2015 PNG-220 / / [id number] Description:INDEX FINGER Advance Directives For more information, please contact: [phone] Latest Code Status on File Code Status Date Activated Date Inactivated Comments Full Code 02/06/2012 11:20 AM 02/06/2012 7:13 PM Code Status History Code Status Date Activated Date Inactivated Comments Full Code 01/21/2012 7:33 PM 01/22/2012 8:29 PM Full Code 12/03/2011 5:37 PM 01/21/2012 7:33 PM Full Code 12/03/2011 10:30 AM 12/03/2011 5:37 PM Care Teams Golf Cart Maker Relationship Specialty Start Date End Date Edison Tam MD 909 [facility] 4 [place] [address] PCP - General Family Practice 07/23/14 Sheri Casey MD [address] [place] [address] 276 [place], [place] 888635 Pulmonary Disease 07/23/14 Amita Ryan MD 909 [facility] [id number] [place], [place] 4709[address] Internal Medicine 12/19/15 Sid Lilly MD [facility] [address] [place], [place] [address] Orthopaedic Surgery 02/22/16
--- OUTSIDE RECORDS SUMMARY | 2023-04-24 09:55 | XMS_ITS | Encounter Summary ---
Author Name Unknown Organization [place] Address [address] [place] [address] Care Team Providers Care Jump Roll Operator Name Role Phone Edison Tam MD Primary Care Provider +[phone]- [phone] Sheri Casey MD Unavailable [phone] Alphonso Billy MD Unavailable [phone] Roland Holt MD Unavailable [phone] Amita Ryan MD Unavailable Sid Lilly MD Unavailable Neda Boland RN Unavailable Edison Tam MD Unavailable [phone] Encounter Details Date Type Department Care Team (Late st Contact Info) Description 06/03/2015 [facility] [place] Medical Advice Medicine GI - 1E [facility] 1st Floor, Clinic 1E 6 [place] [address] Charan Salazar MD 100 [facility] 208 [place] [address] Social History Tobacco Use Types Packs/Day Years [...] Total Score: 14 05/12/ 016 7:50 AM AMMONIA TECHNICIAN documented as of this encounter Care Teams Jump Roll Operator Relationship Specialty Start Date End Date Edison Tam MD 909 [facility] FL 4 [place] [address] PCP - General Family Practice 07/23/14 Sheri Casey MD 420 [facility] 276 [place] [address] Pulmonary Disease 07/23/14 Alphonso Billy MD 420 [place] [address] Cardiology 08/12/14 12/26/17 Roland Holt MD 420 [place] [address] Resident Student in organized health care education/training program 05/12/15 09/24/18 Amita Ryan MD 909 [facility] [id number] [place], [place] 4778[address] Internal Medicine 12/19/15 Sid Lilly MD 2512 [facility] R200 [place] [address] Orthopaedic Surgery 02/22/16 Neda Boland, RN Nurse Coordinator Neurology 02/23/16 09/01/18 Edison Tam MD [address] [place] [address] Assigned PCP 07/30/19 04/30/20 documented as of this encounter
--- OUTSIDE RECORDS SUMMARY | 2023-04-24 09:55 | XMS_ITS | Encounter Summary ---
Author Name Unknown Organization [facility] Address [address] [place] [address] Care Team Providers Care Information Support Project Manager Name Role Phone Edison Tam MD Primary Care Provider +[phone]- [phone] Sheri Casey MD Unavailable [phone] Alphonso Billy MD Unavailable [phone] Roland Holt MD Unavailable [phone] Amita Ryan MD Unavailable Sid Lilly MD Unavailable Neda Boland RN Unavailable Edison Tam MD Unavailable [phone] Encounter Details Date Type Department Care Team (Late st Contact Info) Description 05/09/2015 [facility] [place] Medical Advice Medicine GI - 1E [facility] 1st Floor, Clinic 1E 6 [place] [address] Charan Salazar MD 100 [facility] 208 [place] [address] Social History Tobacco Use Types Packs/Day Years [...] on filedocumented in this encounter Care Teams Information Support Project Manager Relationship Specialty Start Date End Date Edison Tam MD 909 [facility] FL 4 [place], [place] [address] PCP - General Family Practice 07/23/14 Sheri Casey MD 420 [facility] 276 [place], [place] [address] Pulmonary Disease 07/23/14 Alphonso Billy MD [address] [place] [address] 279535 Cardiology 08/12/14 12/26/17 Roland Holt MD [address] [place] [address] 633365 Resident Student in organized health care education/training program 05/12/15 09/24/18 Amita Ryan MD 9 [facility] [id number] [place], [place] 680[address] Internal Medicine 12/19/15 Sid Lilly MD [facility] [address] [address] Orthopaedic Surgery 02/22/16 Neda Boland, RN Nurse Coordinator Neurology 02/23/16 09/01/18 Edison Tam MD [address] [address] Assigned PCP 07/30/19 04/30/20 documented as of this encounter
--- OUTSIDE RECORDS SUMMARY | 2023-04-24 09:55 | XMS_ITS | Encounter Summary ---
Author Name Unknown Organization [facility] Address [address] [place] [address]. [place] [address] Care Team Providers Care Juvenile Probation Officer Name Role Phone Edison Tam MD Primary Care Provider +[phone]- [phone] Sheri Casey MD Unavailable [phone] Alphonso Billy MD Unavailable [phone] Roalnd Holt MD Unavailable [phone] Amita Ryan MD Unavailable Sid Lilly MD Unavailable Neda Boland RN Unavailable Edison Tam MD Unavailable [phone] Encounter Details Date Type Department Care Team (Late st Contact Info) Description 12/15/2014 [facility] Medical Advice [facility] 6th Floor, Clinic 6B [facility] 88 516 [place] [id number] Pj Packer MD [address] [place] [address] 250 [place], [place] 936885 Social History Tobacco Use Types Packs/Day Years [...] on filedocumented in this encounter Care Teams Juvenile Probation Officer Relationship Specialty Start Date End Date Edison Tam MD 909 [facility] [address] 4 [place], [place] 445515 PCP - General Family Practice 07/23/14 Sheri Casey MD [address] [place] [address] 276 [place], [place] 489635 Pulmonary Disease 07/23/14 Alphonso Billy MD [address] [place] [address] 516405 Cardiology 08/12/14 12/26/17 Roland Holt MD [address] [place] [address] 649575 Resident Student in organized health care education/training program 05/12/15 09/24/18 Amita Ryan MD 9 [facility] [id number] [place], [place] 177995 Internal Medicine 12/19/15 Sid Lilly MD [address] [place] [place] [address] 787074 Orthopaedic Surgery 02/22/16 Neda Boland, NANDINI Nurse Coordinator Neurology 02/23/16 09/01/18 Edison Tam MD [address] [address] Assigned PCP 07/30/19 2 documented as of this encounter
--- OUTSIDE RECORDS SUMMARY | 2023-04-24 09:55 | XMS_ITS | Encounter Summary ---
Author Name Unknown Organization [facility] Address [address] [place] [address] Care Team Providers Care Frame Fixer Name Role Phone Edison Tam MD Primary Care Provider Edison Tam MD Primary Care Provider Sheri Casey MD Unavailable [phone] Alphonso Billy MD Unavailable [phone] Roland Holt MD Unavailable Amita Ryan MD Unavailable [phone] Sid Lilly MD Unavailable [phone] Neda Boland RN Unavailable Edison Tam MD Unavailable [phone] Encounter Details Date Type Department Care Team (Late st Contact Info) Description 09/22/2013 [facility] Medicine GI - 1E [facility] 1st Floor, Clinic [address] [place] [phone] Charan Salazar MD [address] [facility] 208 [place] [address] Social History Tobacco Use Types Packs/Day Years [...] on filedocumented in this encounter Care Teams Frame Fixer Relationship Specialty Start Date End Date Edison Tam MD [address] [place] [address]84 PCP - General Family Practice 09/21/11 07/22/14 Edison Tam MD [address] [place] [address]23 PCP - General Family Practice 07/23/14 Sheri Casey MD [address] [place] [address] 276 [place] [address] Pulmonary Disease 07/23/14 Alphonso Billy MD [address] [place] [address] Cardiology 08/12/14 12/26/17 Roland Holt MD [address] [place] [address] Resident Student in organized health care education/training program 05/12/15 09/24/18 Amita Ryan MD [address] [place], [place] [address] [address] Internal Medicine 12/19/15 Sid Lilly MD [address] [place] [address], [place] [address] Orthopaedic Surgery 02/22/16 Neda Boland, NANDINI Nurse Coordinator Neurology 02/23/16 09/01/18 Edison Tam MD [address] [place] [address] 4 [place], [place] 618905 Assigned PCP 07/30/19 2 documented as of this encounter
--- OUTSIDE RECORDS SUMMARY | 2023-04-24 09:55 | XMS_ITS | Encounter Summary ---
Author Name Unknown Organization [facility] Address [address] [place] [address] Care Team Providers Care Training Coordinator Name Role Phone Edison Tam MD Primary Care Provider [phone] Sheri Casey MD Unavailable [phone] Alphonso Billy MD Unavailable [phone] Roland Holt MD Unavailable Amita Ryan MD Unavailable Sid Lilly MD Unavailable Nead Boland RN Unavailable [phone] Edison Tam MD Unavailable Reason for Visit * Reason Onset Date Comments Pt. Information/instruction 08/11/2014 Encounter Details Date Type Department Care Team (Latest Contact Info) Description 08/11/2014 [facility] 3rd Floor, Clinic [address] 88 [place] [address] Edison Tam MD 909 [facility] 4 [place] [address] Pt. Information/instruct ion Social History [...] on filedocumented in this encounter Care Teams Training Coordinator Relationship Specialty Start Date End Date Edison Tam MD 909 [facility] [address] 4 [place] [address] PCP - General Family Practice 07/23/14 Sheri Casey MD 420 [facility] 276 [place], [place] 889545 Pulmonary Disease 07/23/14 Alphonso Billy MD 420 [place] [address] Cardiology 08/12/14 12/26/17 Roland Holt MD [address] [place] [address] Resident Student in organized health care education/training program 05/12/15 09/24/18 Amita Ryan MD 9 [facility] [id number] [place], [place] 997025 Internal Medicine 12/19/15 Sid Lilly MD Formerly named [facility] [address] [address] Orthopaedic Surgery 02/22/16 Neda Boland, RN Nurse Coordinator Neurology 02/23/16 09/01/18 Edison Tam MD [address] [place] [address] Assigned PCP 07/30/19 04/30/20 documented as of this encounter
--- OUTSIDE RECORDS SUMMARY | 2023-04-24 09:55 | XMS_ITS | Encounter Summary ---
Author Name Unknown Organization [facility] Address [address] [place] [address]. [place] [address] Care Team Providers Care Rack Loader Name Role Phone Edison Tam MD Primary Care Provider [phone] Sheri Casey MD Unavailable [phone] Alphonso Billy MD Unavailable [phone] Roland Holt MD Unavailable Amita Ryan MD Unavailable Sid Lilly MD Unavailable Neda Boland RN Unavailable Edison Tam MD Unavailable [phone] Encounter Details Date Type Department Care Team (Late st Contact Info) Description 05/22/2016 [facility] [address] [address] Charan Salazar MD [address] [facility] 208 [place] [address] Social History Tobacco Use Types Packs/Day Years [...] Total Score: 14 05/12/ 016 7:50 AM POLYMERIZATION HELPER documented as of this encounter Care Teams Rack Loader Relationship Specialty Start Date End Date Edison Tam MD 909 [facility] [address] 4 [place] [address] PCP - General Family Practice 07/23/14 Sheri Casey MD 420 [facility] 276 [place] [address] Pulmonary Disease 07/23/14 Alphonso Billy MD 420 [place] [address] Cardiology 08/12/14 12/26/17 Roland Holt MD 420 [place] [address] Resident Student in organized health care education/training program 05/12/15 09/24/18 Amita Ryan MD 909 [facility] [id number] [place], [place] 899205 Internal Medicine 12/19/15 Sid Lilly MD [address] [place] [address] Orthopaedic Surgery 02/22/16 Neda Boland, RN Nurse Coordinator Neurology 02/23/16 09/01/18 Edison Tam MD [address] [place] [address] Assigned PCP 07/30/19 04/30/20 documented as of this encounter
--- OUTSIDE RECORDS SUMMARY | 2023-04-24 09:55 | XMS_ITS | Encounter Summary ---
Author Name Unknown Organization [facility] Address [address] [place] [address] Care Team Providers Care Sales Process Manager Name Role Phone Edison Tam MD Primary Care Provider Edison Tam MD Primary Care Provider [phone] Sheri Casey MD Unavailable [phone] Alphonso Billy MD Unavailable [phone] Roland Holt MD Unavailable [phone] Amita Ryan MD Unavailable Sid Lilly MD Unavailable Neda Boland RN Unavailable [phone] Edison Tam MD Unavailable [phone] Encounter Details Date Type Department Care Team (Late st Contact Info) Description 05/06/2014 [facility] Medicine GI - 1E [facility] 1st Floor, Clinic [address]E [address] [place] [phone] Rebekah Mason, RN Social History Tobacco Use [...] on filedocumented in this encounter Care Teams Sales Process Manager Relationship Specialty Start Date End Date Edison Tam MD 9 [facility] 4 [place] [address] PCP - General Family Practice 09/21/11 07/22/14 Edison Tam MD [address] [place] [address] 4 [place], [place] 982025 PCP - General Family Practice 07/23/14 Sheri Casey MD 420 [facility] 276 [place], [place] 358925 Pulmonary Disease 07/23/14 Alphonso Billy MD 420 [place], [place] 537895 Cardiology 08/12/14 12/26/17 Roland Holt MD 420 [place], [place] 501625 Resident Student in organized health care education/training program 05/12/15 09/24/18 Amita Ryan MD [address]09 [facility] [id number] [place], [place] 584[address] Internal Medicine 12/19/15 Sid Lilly MD 2512 [address] [facility] R200 [place], [place] 835094 Orthopaedic Surgery 02/22/16 Neda Boland, RN Nurse Coordinator Neurology 02/23/16 09/01/18 Edison Tam MD [address] [address] Assigned PCP 07/30/19 04/30/20 documented as of this encounter
--- OUTSIDE RECORDS SUMMARY | 2023-04-24 09:55 | XMS_ITS | Encounter Summary ---
Author Name Unknown Organization [facility] Address [address] [place] [address]. [place] [address] Care Team Providers Care Investigation Division Sergeant Name Role Phone Edison Tam MD Primary Care Provider [phone] Sheri Casey MD Unavailable [phone] Alphonso Billy MD Unavailable [phone] Roland Holt MD Unavailable [phone] Amita Ryan MD Unavailable [phone] Sid Lilly MD Unavailable [phone] Neda Boland RN Unavailable Edison Tam MD Unavailable [phone] Encounter Details Date Type Department Care Team (Late st Contact Info) Description 01/24/2016 [facility] [address] [address] Amita Ryan MD [address] [place] [address] [address] Social History Tobacco Use Types [...] Total Score: 14 05/12/ 016 7:50 AM CASEWORK SPECIALIST documented as of this encounter Care Teams Investigation Division Sergeant Relationship Specialty Start Date End Date Edison Tam MD 909 [facility] [address] 4 [place] [address] PCP - General Family Practice 07/23/14 Sheri Casey MD 420 [facility] 276 [place], [place] 277275 Pulmonary Disease 07/23/14 Alphonso Billy MD 420 [place] [address] Cardiology 08/12/14 12/26/17 Roland Holt MD 420 [place], [place] 390505 Resident Student in organized health care education/training program 05/12/15 09/24/18 Amita Ryan MD 909 [facility] [id number] [place], [place] [address] Internal Medicine 12/19/15 Sid Lilly MD 2512 [address] [facility] R200 [place] [address] Orthopaedic Surgery 02/22/16 Neda Boland, RN Nurse Coordinator Neurology 02/23/16 09/01/18 Edison Tam MD [address] [place] [address] Assigned PCP 07/30/19 04/30/20 documented as of this encounter
--- OUTSIDE RECORDS SUMMARY | 2023-04-24 09:55 | XMS_ITS | Encounter Summary ---
Author Name Unknown Organization [facility] Address [address] [place] [address] Care Team Providers Care Clinical Academic Allergist Name Role Phone Edison Tam MD Primary Care Provider Sheri Casey MD Unavailable [phone] Alphonso Billy MD Unavailable [phone] Roland Holt MD Unavailable Amita Ryan MD Unavailable [phone] Sid Lilly MD Unavailable [phone] Neda Boland RN Unavailable [phone] Edison Tam MD Unavailable [phone] Encounter Details Date Type Department Care Team (Late st Contact Info) Description 06/21/2015 [facility] Advice [facility] Colon and Rectal Surgery 909 [facility] 4th [place] [address] Ros Baeza RN Social History [...] Total Score: 14 05/12/ 016 7:50 AM LAMP WIRER documented as of this encounter Care Teams Clinical Academic Allergist Relationship Specialty Start Date End Date Edison Tam MD 909 [facility] 4 [place], [place] 5[address] PCP - General Family Practice 07/23/14 Sheri Casey MD 420 [facility] 276 [place], [place] 835785 Pulmonary Disease 07/23/14 Alphonso Billy MD [address] [place] [address] 488955 Cardiology 08/12/14 12/26/17 Roland Holt MD [address] [place] [address] 964225 Resident Student in organized health care education/training program 05/12/15 09/24/18 Amita Ryan MD [address] [place] [address] [id number] [place], [place] 022485 Internal Medicine 12/19/15 Sid Lilly MD [address] [place] [address] 364504 Orthopaedic Surgery 02/22/16 Neda Boland, NANDINI Nurse Coordinator Neurology 02/23/16 09/01/18 Edison Tam MD [address] [address] Assigned PCP 07/30/19 2 documented as of this encounter
--- OUTSIDE RECORDS SUMMARY | 2023-04-24 09:55 | XMS_ITS | Encounter Summary ---
Author Name Unknown Organization [facility] Address [address] [place] [address] Care Team Providers Care Leaded Glass Installer Name Role Phone Edison Tam MD Primary Care Provider [phone] Sheri Casey MD Unavailable Alphonso Billy MD Unavailable [phone] Roland Holt MD Unavailable [phone] Amita Ryan MD Unavailable [phone] Sid Lilly MD Unavailable Neda Boland RN Unavailable Edison Tam MD Unavailable Reason for Visit * Reason Onset Date Comments MyChart Communication 06/07/2015 Encounter Details Date Type Department Care Team (Latest Contact Info) Description 06/07/2015 [facility] 909 [facility] 4th [place] [address] Edison Tam MD 909 [facility] 4 [place] [address] MyChart Communication Social History Tobacco [...] Depression Total Score: 14 016 7:50 AM ORTHO TECH documented as of this encounter Care Teams Leaded Glass Installer Relationship Specialty Start Date End Date Edison Tam MD 909 [facility] [address] 4 [place], [place] 653065 PCP - General Family Practice 07/23/14 Sheri Casey MD 420 [facility] 276 [place], [place] 683055 Pulmonary Disease 07/23/14 Alphonso Billy MD 420 [place], [place] 189465 Cardiology 08/12/14 12/26/17 Roland Holt MD 420 [place], [place] 398385 Resident Student in organized health care education/training program 05/12/15 09/24/18 Amita Ryan MD [address]09 [facility] [id number] [place], [place] 579135 Internal Medicine 12/19/15 Sid Lilly MD 2512 S [facility] R200 [place], [place] 702054 Orthopaedic Surgery 02/22/16 Neda Boland, RN Nurse Coordinator Neurology 02/23/16 09/01/18 Edison Tam MD [address] [address] Assigned PCP 07/30/19 04/30/20 documented as of this encounter
--- OUTSIDE RECORDS SUMMARY | 2023-04-24 09:55 | XMS_ITS | Encounter Summary ---
Author Name Unknown Organization [facility] Address [address] [place] [address] Care Team Providers Care Fur Trimming Machine Operator Name Role Phone Edison Tam MD Primary Care Provider [phone] Sheri Casey MD Unavailable [phone] Alphonso Billy MD Unavailable [phone] Roland Holt MD Unavailable Amita Ryan MD Unavailable Sid Lilly MD Unavailable Neda Boland RN Unavailable [phone] Edison Tam MD Unavailable [phone] Reason for Referral * Consultation - Closed Specialty Diagnoses / Procedures Referred By Odilia jin Referred To Contact Diagnoses Generalized muscle weakness Numbness and tingling of left leg Carbon monoxide exposure 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 (2) List of current medications (3) This referral request (4) Any documents/labs given to you for this referral [employer]Y RESPONSIBLE INVESTMENT ADVISER * CV Cardio consult - Closed Specialty Diagnoses / Procedures Referred By Odilia jin Referred To Contact Diagnoses Exertional dyspnea Generalized muscle weakness Carbon monoxide exposure Edison Tam MD [address] [place] [address] Referral ID Status Reason Start Date Expiration Date Visits Re quested Visits Authorized [id number] Closed 01/23/2016 01/22/2017 1 1 Comments Your provider has referred you to: [facility]: [facility] [email or web address] Please be aware that coverage of these [...] where they were done to arrange for pickle water pump operator prior to your scheduled appointment. >> List of current medications >> This referral request >> Any documents/labs given to you for this referral ALLY RESPONSIBLE INVESTMENT ADVISER Reason for Visit * Reason Onset Date Comments MyChart Communication 01/19/2016 Referral 01/19/2016 cardiology, neur ology Encounter Details Date Type Department Care Team (Late st Contact Info) Description 01/19/2016 [facility] 9 [facility] 4th [place] [address] Edison Tam MD [address] [place] [address] Jarvishart Communication; Referral (cardiolog... Social History Tobacco [...] Depression Total Score: 14 016 7:50 AM SOCIALLY RESPONSIBLE INVESTMENT ADVISER documented as of this encounter Care Teams Fur Trimming Machine Operator Relationship Specialty Start Date End Date Edison Tam MD [address] [place] [address] PCP - General Family Practice 07/23/14 Sheri Casey MD 420 [facility] 276 [place] [address] Pulmonary Disease 07/23/14 Alphonso Billy MD 420 [place] [address] Cardiology 08/12/14 12/26/17 Roland Holt MD 420 [place] [address] Resident Student in organized health care education/training program 05/12/15 09/24/18 Amita Ryan MD 9 [facility] [id number] [place], [place] 052945 Internal Medicine 12/19/15 Sid Lilly MD [address] [place], [place] [address] Orthopaedic Surgery 02/22/16 Neda Boland, RN Nurse Coordinator Neurology 02/23/16 09/01/18 Edison Tam MD 909 [facility] 4 [place], [place] 864395 Assigned PCP 07/30/19 04/30/20 documented as of this encounter
--- OUTSIDE RECORDS SUMMARY | 2023-04-24 09:55 | XMS_ITS | Encounter Summary ---
Author Name Unknown Organization [facility] Address [address] [place] [address] Care Team Providers Care Dust Collector Name Role Phone Edison Tam MD Primary Care Provider [phone] Sheri Casey MD Unavailable [phone] Alphonso Billy MD Unavailable [phone] Roland Holt MD Unavailable Amita Ryan MD Unavailable [phone] Sid Lilly MD Unavailable Neda Boland RN Unavailable Edison Tam MD Unavailable [phone] Encounter Details Date Type Department Care Team (Late st Contact Info) Description 12/29/2014 [facility] Medicine GI - 1E [facility] 1st Floor, Clinic 1E 6 [place] [address] Charan Salazar MD 100 [facility] 208 [place] [address] Social History Tobacco Use Types Packs/Day Years [...] on filedocumented in this encounter Care Teams Dust Collector Relationship Specialty Start Date End Date Edison Tam MD 909 [facility] [address] 4 [place], [place] 261045 PCP - General Family Practice 07/23/14 Sheri Casey MD 420 [facility] 276 [place], [place] 215315 Pulmonary Disease 07/23/14 Alphonso Billy MD [address] [place] [address] 120685 Cardiology 08/12/14 12/26/17 Roland Holt MD [address] [place] [address] 122145 Resident Student in organized health care education/training program 05/12/15 09/24/18 Amita Ryan MD 9 [facility] [id number] [place], [place] 003165 Internal Medicine 12/19/15 Sid Lilly MD [facility] [address] [address] Orthopaedic Surgery 02/22/16 Neda Boland, RN Nurse Coordinator Neurology 02/23/16 09/01/18 Edison Tam MD [address] [address] Assigned PCP 07/30/19 04/30/20 documented as of this encounter
--- OUTSIDE RECORDS SUMMARY | 2023-04-24 09:55 | XMS_ITS | Encounter Summary ---
Author Name Unknown Organization [facility] Address [address] [place] [address] Care Team Providers Care Fiberglass Tube Molder Name Role Phone Edison Tam MD Primary Care Provider Edison Tam MD Primary Care Provider Sheri Casey MD Unavailable [phone] Alphonso Billy MD Unavailable [phone] Roland Holt MD Unavailable [phone] Amita Ryan MD Unavailable Sid Lilly MD Unavailable Neda Boland RN Unavailable [phone] Edison Tam MD Unavailable [phone] Encounter Details Date Type Department Care Team (Late st Contact Info) Description 05/10/2014 [facility] Medicine GI - 1E [facility] 1st Floor, Clinic [address]E [address] [place] [phone] Charan Salazar MD 100 [facility] [facility] 208 [place] [address] Social History Tobacco Use Types Packs/Day Years [...] on filedocumented in this encounter Care Teams Fiberglass Tube Molder Relationship Specialty Start Date End Date Edison Tam MD [address] [place] [address] PCP - General Family Practice 09/21/11 07/22/14 Edison Tam MD [address] [place] [address] PCP - General Family Practice 07/23/14 Sheri Casey MD [address] [place] [address] 276 [place] [address] Pulmonary Disease 07/23/14 Alphonso Billy MD [address] [place] [address] Cardiology 08/12/14 12/26/17 Roland Hlot MD [address] [place] [address] Resident Student in organized health care education/training program 05/12/15 09/24/18 Amita Ryan MD [address] [place], [place] [address]C[place] [address] Internal Medicine 12/19/15 Sid Lilly MD [address] [place] [address], [place] [address] Orthopaedic Surgery 02/22/16 Neda Boland, NANDINI Nurse Coordinator Neurology 02/23/16 09/01/18 Edison Tam MD [address] [place] [address] 4 [place], [place] 671595 Assigned PCP 07/30/19 2 documented as of this encounter
--- OUTSIDE RECORDS SUMMARY | 2023-04-24 09:55 | XMS_ITS | Encounter Summary ---
Author Name Unknown Organization [facility] Address [address] [place] [address]. [place] [address] Care Team Providers Care Security Screener Name Role Phone Edison Tam MD Primary Care Provider [phone] Sheri Casey MD Unavailable [phone] Alphonso Billy MD Unavailable [phone] Roland Holt MD Unavailable Amita Ryan MD Unavailable [phone] Sid Lilly MD Unavailable Neda Boland RN Unavailable Edison Tam MD Unavailable [phone] Encounter Details Date Type Department Care Team (Late st Contact Info) Description 12/28/2015 [facility] [address] [address] Charan Salazar MD 100 [facility] [facility] 208 [place] [address] Social History Tobacco Use Types Packs/Day Years [...] Total Score: 14 05/12/ 016 7:50 AM PERSONAL LOAN SPECIALIST documented as of this encounter Care Teams Security Screener Relationship Specialty Start Date End Date Edison Tam MD 909 [facility] [address] 4 [place] [address] PCP - General Family Practice 07/23/14 Sheri Casey MD 420 [facility] 276 [place] [address] Pulmonary Disease 07/23/14 Alphonso Billy MD 420 [place] [address] Cardiology 08/12/14 12/26/17 Roland Holt MD 420 [place] [address] Resident Student in organized health care education/training program 05/12/15 09/24/18 Amita Ryan MD 909 [facility] [id number] [place], [place] 8927[address] Internal Medicine 12/19/15 Sid Lilly MD [address] [place] [address] Orthopaedic Surgery 02/22/16 Neda Boland, RN Nurse Coordinator Neurology 02/23/16 09/01/18 Edison Tam MD [address] [place] [address] Assigned PCP 07/30/19 04/30/20 documented as of this encounter
--- OUTSIDE RECORDS SUMMARY | 2023-04-24 09:55 | XMS_ITS | Encounter Summary ---
Author Name Unknown Organization [facility] Address [address] [place] [address]. [place] [address] Care Team Providers Care Hadoop Admin Name Role Phone Edison Tam MD Primary Care Provider [phone] Sheri Casey MD Unavailable [phone] Alphonso Billy MD Unavailable [phone] Roland Holt MD Unavailable [phone] Amita Ryan MD Unavailable [phone] Sid Lilly MD Unavailable Neda Boland RN Unavailable Edison Tam MD Unavailable [phone] Encounter Details Date Type Department Care Team (Late st Contact Info) Description 08/11/2014 [facility] 3rd Floor, Clinic [address]A [address] 88 [place] [phone] Edison Tam MD 909 [facility] 4 [place] [address] Social History Tobacco Use Types Packs/Day Years [...] on filedocumented in this encounter Care Teams Hadoop Admin Relationship Specialty Start Date End Date Edison Tam MD 909 [facility] FL 4 [place], [place] 732805 PCP - General Family Practice 07/23/14 Sheri Casey MD 420 [facility] 276 [place], [place] 946535 Pulmonary Disease 07/23/14 Alphonso Billy MD 420 [place], [place] 870225 Cardiology 08/12/14 12/26/17 Roland Holt MD 420 [place], [place] 486235 Resident Student in organized health care education/training program 05/12/15 09/24/18 Amita Ryan MD 9 [facility] [id number] [place], [place] 544605 Internal Medicine 12/19/15 Sid Lilly MD [address] [place] [address] 858524 Orthopaedic Surgery 02/22/16 Neda Boland, RN Nurse Coordinator Neurology 02/23/16 09/01/18 Edison Tam MD [address] [address] Assigned PCP 07/30/19 04/30/20 documented as of this encounter
--- OUTSIDE RECORDS SUMMARY | 2023-04-24 09:55 | XMS_ITS | Encounter Summary ---
Author Name Unknown Organization [facility] Address [address] [place] [address]. [place] [address] Care Team Providers Care Lead Cargo Mover Name Role Phone Edison Tam MD Primary Care Provider [phone] Sheri Casey MD Unavailable [phone] Alphnoso Billy MD Unavailable [phone] Roland Holt MD Unavailable Amita Ryan MD Unavailable [place] Lilly MD Unavailable Neda Boland RN Unavailable Edison Tam MD Unavailable [phone] Encounter Details Date Type Department Care Team (Late st Contact Info) Description 12/29/[address] [facility] 6th Floor, Clinic 6B [facility] 88 516 [place] [phone] Pj Packer MD [address] [place] [address] 250 [place], [place] 488555 Social History Tobacco Use Types Packs/Day Years [...] on filedocumented in this encounter Care Teams Lead Cargo Mover Relationship Specialty Start Date End Date Edison Tam MD 909 [facility] 4 [place], [place] 664615 PCP - General Family Practice 07/23/14 Sheri Casey MD [address] [place] [address] 276 [place], [place] 217395 Pulmonary Disease 07/23/14 Alphonso Billy MD [address] [place] [address] 078025 Cardiology 08/12/14 12/26/17 Roland Holt MD [address] [place] [address] 483815 Resident Student in organized health care education/training program 05/12/15 09/24/18 Amita Ryan MD 9 [facility] [id number] [place], [place] 213055 Internal Medicine 12/19/15 [place] Lilly MD [address] [place] [address] 813074 Orthopaedic Surgery 02/22/16 Neda Boland, NANDINI Nurse Coordinator Neurology 02/23/16 09/01/18 Edison Tam MD [address] [address] Assigned PCP 07/30/19 2 documented as of this encounter
--- OUTSIDE RECORDS SUMMARY | 2023-04-24 09:55 | XMS_ITS | Encounter Summary ---
Author Name Unknown Organization [facility] Address [address] [place] [address] Care Team Providers Care Sleep Lab Technologist Name Role Phone Edison Tam MD Primary Care Provider Edison Tam MD Primary Care Provider Sheri Casey MD Unavailable [phone] Alphonso Billy MD Unavailable [phone] Roland Holt MD Unavailable Amita Ryan MD Unavailable [place] Lilly MD Unavailable Neda Boland RN Unavailable Edison Tam MD Unavailable [phone] Encounter Details Date Type Department Care Team (Late st Contact Info) Description 06/18/2014 [facility] Medicine GI - 1E [facility] 1st Floor, Clinic [address]E [address] [place] [phone] Charan Salazar MD 100 [facility] 208 [place] [address] Social History Tobacco Use Types Packs/Day Years [...] on filedocumented in this encounter Care Teams Sleep Lab Technologist Relationship Specialty Start Date End Date Edison Tam MD [address] [place] [address] PCP - General Family Practice 09/21/11 07/22/14 Edison Tam MD [address] [place] [address] PCP - General Family Practice 07/23/14 Sheri Casey MD [address] [place] [address] 276 [place] [address] Pulmonary Disease 07/23/14 Alphonso Billy MD [address] [place] [address] Cardiology 08/12/14 12/26/17 Roland Holt MD [address] [place] [address] Resident Student in organized health care education/training program 05/12/15 09/24/18 Amita Ryan MD [address] [place] [address] [address] Internal Medicine 12/19/15 [place] Lilly MD [address] [place] [address], [place] [address] Orthopaedic Surgery 02/22/16 Neda Boland, NANDINI Nurse Coordinator Neurology 02/23/16 09/01/18 Edison Tam MD [address] [place] [address] 4 [place], [place] 980425 Assigned PCP 07/30/19 2 documented as of this encounter
--- OUTSIDE RECORDS SUMMARY | 2023-04-24 09:55 | XMS_ITS | Encounter Summary ---
Author Name Unknown Organization [facility] Address [address] [place] [address] Care Team Providers Care Shoe Singer Name Role Phone Edison Tam MD Primary Care Provider Sheri Casey MD Unavailable [phone] Alphonso Billy MD Unavailable [phone] Roland Holt MD Unavailable Amita Ryan MD Unavailable [place] Lilly MD Unavailable [phone] Neda Boland RN Unavailable Edison Tam MD Unavailable [phone] Encounter Details Date Type Department Care Team (Late st Contact Info) Description 07/11/2015 [facility] 909 [place] [facility] 4th [place] [address] Charan Salazar MD 100 [facility] 208 [place], [place] 131820 Social History Tobacco Use Types Packs/Day Years [...] Total Score: 14 05/12/ 016 7:50 AM TILLER MAN documented as of this encounter Care Teams Shoe Singer Relationship Specialty Start Date End Date Edison Tam MD 909 [facility] FL 4 [place] [address] PCP - General Family Practice 07/23/14 Sheri Casey MD 420 [facility] 276 [place] [address] Pulmonary Disease 07/23/14 Alphonso Billy MD 420 [place] [address] Cardiology 08/12/14 12/26/17 Roland Holt MD 420 [place] [address] Resident Student in organized health care education/training program 05/12/15 09/24/18 Amita Ryan MD 909 [facility] [id number] [place], [place] 164815 Internal Medicine 12/19/15 [place] Lilly MD [facility] [address] [place] [address] Orthopaedic Surgery 02/22/16 Neda Boland, NANDINI Nurse Coordinator Neurology 02/23/16 09/01/18 Edison Tam MD [address] [place] [address] Assigned PCP 07/30/19 04/30/20 documented as of this encounter
--- OUTSIDE RECORDS SUMMARY | 2023-04-24 09:56 | XMS_ITS | Encounter Summary ---
Author Name Unknown Organization [facility] Address [address] [place] [address] Care Team Providers Care Double End Chucking Machine Operator Name Role Phone Edison Tam MD Primary Care Provider Edison Tam MD Primary Care Provider Sheri Casey MD Unavailable [phone] Alphonso Billy MD Unavailable [phone] Roland Holt MD Unavailable Amita Ryan MD Unavailable [phone] [place] Lilly MD Unavailable Neda Boland RN Unavailable [phone] Edison Tam MD Unavailable [phone] Encounter Details Date Type Department Care Team (Late st Contact Info) Description 01/20/2013 [facility] Medicine GI - 1E [facility] 1st Floor, Clinic [address] [place] [phone] Rebekah Mason, RN Social History Tobacco Use [...] on filedocumented in this encounter Care Teams Double End Chucking Machine Operator Relationship Specialty Start Date End Date Edison Tam MD 9 [facility] 4 [place] [address] PCP - General Family Practice 09/21/11 07/22/14 Edison Tam MD [address] [place] [address] 4 [place], [place] 654195 PCP - General Family Practice 07/23/14 Sheri Casey MD 420 [facility] 276 [place], [place] 588065 Pulmonary Disease 07/23/14 Alphonso Billy MD 420 [place], [place] 369075 Cardiology 08/12/14 12/26/17 Roland Holt MD 420 [place], [place] 912775 Resident Student in organized health care education/training program 05/12/15 09/24/18 Amita Ryan MD 909 [facility] [id number] [place], [place] 776655 Internal Medicine 12/19/15 [place] Lilly MD 2512 [facility] R200 [place], [place] 968384 Orthopaedic Surgery 02/22/16 Neda Boland, RN Nurse Coordinator Neurology 02/23/16 09/01/18 Edison Tam MD [address] [address] Assigned PCP 07/30/19 04/30/20 documented as of this encounter
--- OUTSIDE RECORDS SUMMARY | 2023-04-24 09:56 | XMS_ITS | Encounter Summary ---
Author Name Unknown Organization [facility] Address [address] [place] [address] Care Team Providers Care Consulting Technical Director Name Role Phone Edison Tam MD Primary Care Provider Edison Tam MD Primary Care Provider Sheri Casey MD Unavailable [phone] Alphonso Billy MD Unavailable [phone] Roland Holt MD Unavailable Amita Ryan MD Unavailable [place] Lilly MD Unavailable Neda Boland RN Unavailable [phone] Edison Tam MD Unavailable [phone] Encounter Details Date Type Department Care Team (Late st Contact Info) Description 01/27/2013 [facility] Medicine GI - 1E [facility] 1st Floor, Clinic [address]E [address] [place] [address] [phone] Charan Salazar MD 100 [facility] 208 [place] [address] Social History Tobacco Use Types Packs/Day Years [...] on filedocumented in this encounter Care Teams Consulting Technical Director Relationship Specialty Start Date End Date Edison Tam MD [address] [place] [address] PCP - General Family Practice 09/21/11 07/22/14 Edison Tam MD [address] [place] [address] PCP - General Family Practice 07/23/14 Sheri Casey MD [address] [place] [address] 276 [place] [address] Pulmonary Disease 07/23/14 Alphonso Billy MD [address] [place] [address] Cardiology 08/12/14 12/26/17 Roland Holt MD [address] [place] [address] Resident Student in organized health care education/training program 05/12/15 09/24/18 Amita Ryan MD [address] [place] [id number] [address] Internal Medicine 12/19/15 [place] Lilly MD [address] [place] [address], [place] [address] Orthopaedic Surgery 02/22/16 Neda Boland, NANDINI Nurse Coordinator Neurology 02/23/16 09/01/18 Edison Tam MD [address] [place] [address] 4 [place], [place] 473225 Assigned PCP 07/30/19 2 documented as of this encounter
--- OUTSIDE RECORDS SUMMARY | 2023-04-24 09:56 | XMS_ITS | Encounter Summary ---
Author Name Unknown Organization [place] Address [address] [place] [address] Care Team Providers Care Joint Special Operations Name Role Phone Edison Tam MD Primary Care Provider [phone] Edison Tam MD Primary Care Provider [phone] Sheri Casey MD Unavailable [phone] Alphonso Billy MD Unavailable [phone] Roland Holt MD Unavailable Amita Ryan MD Unavailable [place] Lilly MD Unavailable Neda Boland RN Unavailable Edison Tam MD Unavailable Encounter Details Date Type Department Care Team (Late st Contact Info) Description 04/10/2013 [facility], [facility] 3rd Floor, Clinic [address]A [address] 88 [place] [address] Edison Tam MD 909 [facility] 4 [place], [place] 285405 Social History Tobacco Use Types Packs/Day Years [...] on filedocumented in this encounter Care Teams Joint Special Operations Relationship Specialty Start Date End Date Edison Tam MD [address] [place] [address] PCP - General Family Practice 09/21/11 07/22/14 Edison Tam MD [address] [place] [address] PCP - General Family Practice 07/23/14 Sheri Casey MD [address] [place] [address] 276 [place] [address] Pulmonary Disease 07/23/14 Alphonso Billy MD [address] [place] [address] Cardiology 08/12/14 12/26/17 Roland Holt MD [address] [place] [address] Resident Student in organized health care education/training program 05/12/15 09/24/18 Amita Ryan MD [address] [place] [address] [id number] [place] [address] Internal Medicine 12/19/15 [place] Lilly MD [facility] [address] [place] [address] Orthopaedic Surgery 02/22/16 Neda Boland, RN Nurse Coordinator Neurology 02/23/16 09/01/18 Edison Tam MD 909 [facility] FL 4 [place] [address] Assigned PCP 07/30/19 04/30/20 documented as of this encounter
--- OUTSIDE RECORDS SUMMARY | 2023-04-24 09:56 | XMS_ITS | Encounter Summary ---
Author Name Unknown Organization [facility] Address [address] [place] [address] Care Team Providers Care Radiographer Mammographer Name Role Phone Edison Tam MD Primary Care Provider Edison Tam MD Primary Care Provider Sheri Casey MD Unavailable [phone] Alphonso Billy MD Unavailable [phone] Roland Holt MD Unavailable Amita Ryan MD Unavailable [place] Lilly MD Unavailable Neda Boland RN Unavailable [phone] Edison Tam MD Unavailable [phone] Encounter Details Date Type Department Care Team (Late st Contact Info) Description 04/16/2013 [facility] Advice Orthopaedic [facility] 1st Floor, [address] [address] Marisol Hathaway MD [address] [address] Social History Tobacco Use Types Packs/Day Years [...] on filedocumented in this encounter Care Teams Radiographer Mammographer Relationship Specialty Start Date End Date Edison Tam MD [address] [place] [address] PCP - General Family Practice 09/21/11 07/22/14 Edison Tam MD [address] [place] [address] PCP - General Family Practice 07/23/14 Sheri Casey MD [address] [place] [address] 276 [place] [address] Pulmonary Disease 07/23/14 Alphonso Billy MD [address] [place] [address] Cardiology 08/12/14 12/26/17 Roland Holt MD [address] [place] [address] Resident Student in organized health care education/training program 05/12/15 09/24/18 Amita Ryan MD [address] [place] [address] [address] Internal Medicine 12/19/15 [place] Lilly MD [address] [place] [address] R200 [place] [address] Orthopaedic Surgery 02/22/16 Neda Boland RN Nurse Coordinator Neurology 02/23/16 09/01/18 Edison Tam MD [address] [place] [address] FL 4 [place] [address] Assigned PCP 07/30/19 2 documented as of this encounter
--- OUTSIDE RECORDS SUMMARY | 2023-04-24 09:56 | XMS_ITS | Encounter Summary ---
Author Name Unknown Organization [facility] Address [address] [place] [address] Care Team Providers Care Dialysis Nurse Name Role Phone Edison Tam MD Primary Care Provider Edison Tam MD Primary Care Provider Sheri Casey MD Unavailable [phone] Alphonso Billy MD Unavailable [phone] Roland Holt MD Unavailable Amita Ryan MD Unavailable [phone] Sid Lilly MD Unavailable Neda Boland RN Unavailable [phone] Edison Tam MD Unavailable [phone] Encounter Details Date Type Department Care Team (Late st Contact Info) Description 01/01/2013 [facility] Medicine - 1E [facility] 1st Floor, Clinic [address] [place] [phone] Charan Salazar MD 100 [facility] 208 [place] [address] Social History Tobacco Use Types Packs/Day Years [...] on filedocumented in this encounter Care Teams Dialysis Nurse Relationship Specialty Start Date End Date Edison Tam MD [address] [place] [address] PCP - General Family Practice 09/21/11 07/22/14 Edison Tam MD [address] [place] [address] PCP - General Family Practice 07/23/14 Sheri Casey MD [address] [place] [address] 276 [place] [address] Pulmonary Disease 07/23/14 Alphonso Billy MD [address] [place] [address] Cardiology 08/12/14 12/26/17 Roland Holt MD [address] [place] [address] Resident Student in organized health care education/training program 05/12/15 09/24/18 Amita Ryan MD [address] [place] [address] [address] Internal Medicine 12/19/15 [place] Lilly MD [address] [place] [address], [place] [address] Orthopaedic Surgery 02/22/16 Neda Boland, NANDINI Nurse Coordinator Neurology 02/23/16 09/01/18 Edison Tam MD [address] [place] [address] 4 [place], [place] 909245 Assigned PCP 07/30/19 2 documented as of this encounter
--- OUTSIDE RECORDS SUMMARY | 2023-04-24 09:56 | XMS_ITS | Encounter Summary ---
Author Name Unknown Organization [facility] Address [address] [place] [address] Care Team Providers Care Shrimping Boat Captain Name Role Phone Edison Tam MD Primary Care Provider Edison Tam MD Primary Care Provider Sheri Casey MD Unavailable [phone] Alphonso Billy MD Unavailable [phone] Roland Holt MD Unavailable Amita Ryan MD Unavailable Sid Lilly MD Unavailable Neda Boland RN Unavailable [phone] Edison Tam MD Unavailable [phone] Encounter Details Date Type Department Care Team (Late st Contact Info) Description 02/13/2013 [facility] [place] Medical Advice Medicine GI - 1E [facility] 1st Floor, Clinic [address]E [address] [place] [phone] Rebekah Mason, RN Social History Tobacco Use [...] on filedocumented in this encounter Care Teams Shrimping Boat Captain Relationship Specialty Start Date End Date Edison Tam MD 9 [facility] 4 [place] [address] PCP - General Family Practice 09/21/11 07/22/14 Edison Tam MD [address] [place] [address] 4 [place], [place] 675305 PCP - General Family Practice 07/23/14 Sheri Casey MD 420 [facility] 276 [place], [place] 930895 Pulmonary Disease 07/23/14 Alphonso Billy MD 420 [place], [place] 578855 Cardiology 08/12/14 12/26/17 Roland Holt MD 420 [place], [place] 224995 Resident Student in organized health care education/training program 05/12/15 09/24/18 Amita Ryan MD 909 [facility] [id number] [place], [place] 194395 Internal Medicine 12/19/15 Sid Lilly MD 2512 [facility] R200 [place], [place] 036004 Orthopaedic Surgery 02/22/16 Neda Boland, RN Nurse Coordinator Neurology 02/23/16 09/01/18 Edison Tam MD [address] [address] Assigned PCP 07/30/19 04/30/20 documented as of this encounter
--- OUTSIDE RECORDS SUMMARY | 2023-04-24 09:56 | XMS_ITS | Encounter Summary ---
Author Name Unknown Organization [facility] Address [address] [place] [address] Care Team Providers Care House Nurse Name Role Phone Edison Tam MD Primary Care Provider Edison Tam MD Primary Care Provider [phone] Sheri Casey MD Unavailable [phone] Alphonso Billy MD Unavailable [phone] Roland Holt MD Unavailable Amita Ryan MD Unavailable Sid Lilly MD Unavailable Neda Boland RN Unavailable Edison Tam MD Unavailable Encounter Details Date Type Department Care Team (Late st Contact Info) Description 12/05/2012 [facility] Medical Adv[facility] Endocrine 6th Floor, Clinic 6A [place] 784616 [facility] 88 [place] [address] Laisha Moraes MD [address] [place] [address] 101 [place], [place] 793595 Social History Tobacco Use Types Packs/Day Years [...] on filedocumented in this encounter Care Teams House Nurse Relationship Specialty Start Date End Date Edison Tma MD [address] [place] [address] PCP - General Family Practice 09/21/11 07/22/14 Edison Tam MD [address] [place] [address] PCP - General Family Practice 07/23/14 Sheri Casey MD [address] [place] [address] 276 [place] [address] Pulmonary Disease 07/23/14 Alphonso Billy MD [address] [place] [address] Cardiology 08/12/14 12/26/17 Roland Holt MD [address] [place] [address] Resident Student in organized health care education/training program 05/12/15 09/24/18 Amita Ryan MD [address] [place] [address] [address] Internal Medicine 12/19/15 Sid Lilly MD [address] [place] [address] [place] [address] Orthopaedic Surgery 02/22/16 Neda Boland, NANDINI Nurse Coordinator Neurology 02/23/16 09/01/18 Edison Tam MD [address] [place] [address] [place] 4 [place], [place] 924975 Assigned PCP 07/30/19 04/30/20 documented as of this encounter
--- OUTSIDE RECORDS SUMMARY | 2023-04-24 09:56 | XMS_ITS | Encounter Summary ---
Author Name Unknown Organization [facility] Address [address] [place] [address] Care Team Providers Care Surgical Assistant Certified Name Role Phone Edison Tam MD Primary Care Provider Edison Tam MD Primary Care Provider [phone] Sheri Casey MD Unavailable [phone] Alphonso Billy MD Unavailable [phone] Roland Holt MD Unavailable Amita Ryan MD Unavailable Sdi Lilly MD Unavailable Neda Boland RN Unavailable Edison Tam MD Unavailable Encounter Details Date Type Department Care Team (Late st Contact Info) Description 08/11/2013 [facility] Medical Advice [facility] 6th Floor, Clinic 6B [facility] 88 516 [place] [address] Pj Packer MD [address] [place] [address] 250 [place] [address] Social History Tobacco Use Types [...] on filedocumented in this encounter Care Teams Surgical Assistant Certified Relationship Specialty Start Date End Date Edison Tam MD [address] [place] [address] PCP - General Family Practice 09/21/11 07/22/14 Edison Tam MD [address] [place] [address] PCP - General Family Practice 07/23/14 Sheri Casey MD [address] [place] [address] 276 [place] [address] Pulmonary Disease 07/23/14 Alphonso Billy MD [address] [place] [address] Cardiology 08/12/14 12/26/17 Roland Holt MD [address] [place] [address] Resident Student in organized health care education/training program 05/12/15 09/24/18 Amita Ryan MD [address] [place], [place] [address] [address] Internal Medicine 12/19/15 Sid Lilly MD [address] [place] [address] [place] [address] Orthopaedic Surgery 02/22/16 Neda Boland RN Nurse Coordinator Neurology 02/23/16 09/01/18 Edison Tam MD [address] [place] [address] 4 [place] [address] Assigned PCP 07/30/19 2 documented as of this encounter
--- OUTSIDE RECORDS SUMMARY | 2023-04-24 09:56 | XMS_ITS | Encounter Summary ---
Author Name Unknown Organization [facility] Address [address] [place] [address] 32692 Care Team Providers Care Experimental Plastics Fabricator Name Role Phone Edison Tam MD Primary Care Provider Edison Tam MD Primary Care Provider Sheri Casey MD Unavailable [phone] Alphonso Billy MD Unavailable [phone] Roland Holt MD Unavailable Amita Ryan MD Unavailable [phone] Sid Lilly MD Unavailable Neda Boland RN Unavailable [phone] Edisno Tam MD Unavailable [phone] Encounter Details Date Type Department Care Team (Late st Contact Info) Description 04/14/2013 [facility] Medicine GI - 1E [facility] 1st Floor, Clinic [address] [place] [address] [phone] Charan Salazar MD [address] [facility] 208 [place] [address] Social History Tobacco Use Types Packs/Day Years [...] on filedocumented in this encounter Care Teams Experimental Plastics Fabricator Relationship Specialty Start Date End Date Edison Tam MD [address] [place] [address]23 PCP - General Family Practice 09/21/11 07/22/14 Edison Tam MD [address] [place] [address] 86479 PCP - General Family Practice 07/23/14 Sheri Casey MD [address] [place] [address] 276 [place] [address] Pulmonary Disease 07/23/14 Alphonso Billy MD [address] [place] [address] 46026 Cardiology 08/12/14 12/26/17 Roland Holt MD [address] [place] [address] 88430 Resident Student in organized health care education/training program 05/12/15 09/24/18 Amita Ryan MD [address] [place] [id number] [address] Internal Medicine 12/19/15 Sid Lilly MD [address] [place] [address], [place] [address] Orthopaedic Surgery 02/22/16 Neda Boland, NANDINI Nurse Coordinator Neurology 02/23/16 09/01/18 Edison Tam MD [address] [place] [address] 4 [place], [place] 477235 Assigned PCP 07/30/19 2 documented as of this encounter
--- OUTSIDE RECORDS SUMMARY | 2023-04-24 09:56 | XMS_ITS | Encounter Summary ---
Author Name Unknown Organization [place] Address [address] [place] [address] 83255 Care Team Providers Care Vp Integration Name Role Phone Edison Tam MD Primary Care Provider Edison Tam MD Primary Care Provider [phone] Sheri Casey MD Unavailable [phone] Alphonso Billy MD Unavailable [phone] Roland Holt MD Unavailable [phone] Amita Ryan MD Unavailable [phone] Sid Lilly MD Unavailable Neda Boland RN Unavailable [phone] Edison Tam MD Unavailable [phone] Encounter Details Date Type Department Care Team (Late st Contact Info) Description 07/20/2013 MyC Medical Advice [facility] 6th Floor, Clinic 6B [facility] 88 516 [place] [address] Pj Packer MD [address] [place] [address] 250 [place] [address] Social History Tobacco Use Types [...] on filedocumented in this encounter Care Teams Vp Integration Relationship Specialty Start Date End Date Edison Tam MD [address] [place] [address] 28374 PCP - General Family Practice 09/21/11 07/22/14 Edison Tam MD [address] [place] [address] 60897 PCP - General Family Practice 07/23/14 Sheri Casey MD [address] [place] [address] 276 [place] [address] Pulmonary Disease 07/23/14 Alphonso Billy MD [address] [place] [address]46 Cardiology 08/12/14 12/26/17 Roland Holt MD [address] [place] [address] 78[address] Resident Student in organized health care education/training program 05/12/15 09/24/18 Amita Ryan MD [address] [place], [place] [id number] [address] Internal Medicine 12/19/15 Sid Lilly MD [address] [place] [address] [place] [address] Orthopaedic Surgery 02/22/16 Neda Boland RN Nurse Coordinator Neurology 02/23/16 09/01/18 Edison Tam MD [address] [place] [address] 4 [place] [address] Assigned PCP 07/30/19 2 documented as of this encounter
--- OUTSIDE RECORDS SUMMARY | 2023-04-24 09:56 | XMS_ITS | Encounter Summary ---
Author Name Unknown Organization [place] Address [address] [place] [address] 22307 Care Team Providers Care Group Underwriter Name Role Phone Edison Tam MD Primary Care Provider Edison Tam MD Primary Care Provider Sheri Casey MD Unavailable [phone] Alphonso Billy MD Unavailable [phone] Roland Holt MD Unavailable Amita Ryan MD Unavailable Sid Lilly MD Unavailable Neda Boland RN Unavailable [phone] Edison Tam MD Unavailable [phone] Encounter Details Date Type Department Care Team (Late st Contact Info) Description 01/26/2013 [facility] Medicine GI - 1E [facility] 1st Floor, Clinic [address]E [address] [place] [address] [phone] Charan Salazar MD [address] [facility] 208 [place] [address] Social History Tobacco Use Types Packs/Day Years [...] on filedocumented in this encounter Care Teams Group Underwriter Relationship Specialty Start Date End Date Edison Tam MD [address] [place] [address] 10649 PCP - General Family Practice 09/21/11 07/22/14 Edison Tam MD [address] [place] [address] 54216 PCP - General Family Practice 07/23/14 Sheri Casey MD [address] [place] [address] 276 [place] [address] Pulmonary Disease 07/23/14 Alphonso Billy MD [address] [place] [address] 64410 Cardiology 08/12/14 12/26/17 Roland Holt MD [address] [place] [address] 914[address] Resident Student in organized health care education/training program 05/12/15 09/24/18 Amita Ryan MD [address] [place] [id number] [address] Internal Medicine 12/19/15 Sid Lilly MD [address] [place] [address], [place] [address] Orthopaedic Surgery 02/22/16 Neda Boland, NANDINI Nurse Coordinator Neurology 02/23/16 09/01/18 Edison Tam MD [address] [place] [address] 4 [place], [place] 115485 Assigned PCP 07/30/19 2 documented as of this encounter
--- OUTSIDE RECORDS SUMMARY | 2023-04-24 09:56 | XMS_ITS | Encounter Summary ---
Author Name Unknown Organization [facility] Address [address] [place] [address] 45032 Care Team Providers Care Bow Maker Name Role Phone Edison Tam MD Primary Care Provider + [phone] Edison Tam MD Primary Care Provider + [phone] Sheri Casey MD Unavailable [phone] Alphonso Billy MD Unavailable [phone] Roland Holt MD Unavailable [phone] Amita Ryan MD Unavailable [phone] Sid Lilly MD Unavailable Neda Boland RN Unavailable [phone] Edison Tam MD Unavailable [phone] Encounter Details Date Type Department Care Team (Late st Contact Info) Description 03/24/2013 [facility] Social History Tobacco Use Types Packs/Day Years [...] on filedocumented in this encounter Care Teams Bow Maker Relationship Specialty Start Date End Date Edison Tam MD [address] [place] [address] 40386 PCP - General Family Practice 09/21/11 07/22/14 Edison Tam MD [address] [place] [address] 28759 PCP - General Family Practice 07/23/14 Sheri Casey MD [address] [place] [address] 276 [place], [place] 801755 Pulmonary Disease 07/23/14 Alphonso Billy MD [address] [place] [address] 628305 Cardiology 08/12/14 12/26/17 Roland Holt MD [address] [place] [address] 798575 Resident Student in organized health care education/training program 05/12/15 09/24/18 Amita Ryan MD [address] [place] [address] [id number] [place] [address] Internal Medicine 12/19/15 Sid Lilly MD [address] [place] [address] 142624 Orthopaedic Surgery 02/22/16 Neda Boland, RN Nurse Coordinator Neurology 02/23/16 09/01/18 Edison Tam MD [address] [address] Assigned PCP 07/30/19 04/30/20 documented as of this encounter
--- OUTSIDE RECORDS SUMMARY | 2023-04-24 09:56 | XMS_ITS | Encounter Summary ---
Author Name Unknown Organization [facility] Address [address] [place] [address] 42022 Care Team Providers Care Coin Machine Collector Name Role Phone Edison Tam MD Primary Care Provider Edison Tam MD Primary Care Provider Sheri Casey MD Unavailable [phone] Alphonso Billy MD Unavailable [phone] Roland Holt MD Unavailable Amita Ryan MD Unavailable Sid Lilly MD Unavailable Neda Boalnd RN Unavailable Edison Tam MD Unavailable [phone] Encounter Details Date Type Department Care Team (Late st Contact Info) Description 12/05/2012 [facility] Medicine GI - 1E [facility] 1st Floor, Clinic [address]E [address] [place] [address] [phone] Charan Salazar MD [address] [facility] [facility] 208 [place] [address] Social History Tobacco Use Types Packs/Day Years [...] on filedocumented in this encounter Care Teams Coin Machine Collector Relationship Specialty Start Date End Date Edison Tam MD [address] [place] [address] 20780 PCP - General Family Practice 09/21/11 07/22/14 Edison Tam MD [address] [place] [address] 69707 PCP - General Family Practice 07/23/14 Sheri Casey MD [address] [place] [address] 276 [place] [address] Pulmonary Disease 07/23/14 Alphonso Billy MD [address] [place] [address] 40323 Cardiology 08/12/14 12/26/17 Roland Holt MD [address] [place] [address] 09455 Resident Student in organized health care education/training program 05/12/15 09/24/18 Amita Ryan MD [address] [place] [id number] [address] Internal Medicine 12/19/15 Sid Lilly MD [address] [place] [address], [place] [address] Orthopaedic Surgery 02/22/16 Neda Boland, NANDINI Nurse Coordinator Neurology 02/23/16 09/01/18 Edison Tam MD [address] [place] [address] 4 [place], [place] 419045 Assigned PCP 07/30/19 2 documented as of this encounter
--- OUTSIDE RECORDS SUMMARY | 2023-04-24 09:56 | XMS_ITS | Encounter Summary ---
Author Name Unknown Organization [facility] Address [address] [place] [address] 78532 Care Team Providers Care Supervisor Cooler Service Name Role Phone Edison Tam MD Primary Care Provider Edison Tam MD Primary Care Provider [phone] Sheri Casey MD Unavailable [phone] Alphonso Billy MD Unavailable [phone] Roland Holt MD Unavailable Amita Ryan MD Unavailable [phone] Sid Lilly MD Unavailable Neda Boland RN Unavailable Edison Tam MD Unavailable [phone] Encounter Details Date Type Department Care Team (Late st Contact Info) Description 07/20/2013 MyC Medical Advice [facility] 6th Floor, Clinic 6B [facility] 88 516 [place] [address] Pj Packer MD [address] [place] [address] 250 [place] [address] Social History Tobacco Use Types [...] filedocumented in this encounter Care Teams Supervisor Cooler Service Relationship Specialty Start Date End Date Edison Tam MD [address] [place] [address] 72921 PCP - General Family Practice 09/21/11 07/22/14 Edison Tam MD [address] [place] [address] 69651 PCP - General Family Practice 07/23/14 Sheri Casey MD [address] [place] [address] 276 [place] [address] Pulmonary Disease 07/23/14 Alphonso Billy MD [address] [place] [address] 87721 Cardiology 08/12/14 12/26/17 Roland Holt MD [address] [place] [address] 19703 Resident Student in organized health care education/training program 05/12/15 09/24/18 Amita Ryan MD [address] [place], [place] [address] [address] Internal Medicine 12/19/15 Sid Lilly MD [address] [place] [address] [place] [address] Orthopaedic Surgery 02/22/16 Neda Boland RN Nurse Coordinator Neurology 02/23/16 09/01/18 Edison Tam MD [address] [place] [address] 4 [place] [address] Assigned PCP 07/30/19 2 documented as of this encounter
--- OUTSIDE RECORDS SUMMARY | 2023-04-24 09:56 | XMS_ITS | Encounter Summary ---
Author Name Unknown Organization [facility] Address [address] [place] [address] 46397 Care Team Providers Care Data Virtualization Consultant Name Role Phone Edison Tam MD Primary Care Provider Edison Tam MD Primary Care Provider Sheri Casey MD Unavailable [phone] Alphonso Billy MD Unavailable [phone] Roland Holt MD Unavailable Amita Ryan MD Unavailable Sid Lilly MD Unavailable Neda Boland RN Unavailable Edison Tam MD Unavailable [phone] Encounter Details Date Type Department Care Team (Late st Contact Info) Description 04/13/2013 [facility] Medicine GI - 1E [facility] 1st Floor, Clinic [address]E [address] [place] [phone] Charan Salazar MD [address] [facility] 208 [place] [address] Social History Tobacco Use Types Packs/Day Years [...] on filedocumented in this encounter Care Teams Data Virtualization Consultant Relationship Specialty Start Date End Date Edison Tam MD [address] [place] [address] 06490 PCP - General Family Practice 09/21/11 07/22/14 Edison Tam MD [address] [place] [address] 07314 PCP - General Family Practice 07/23/14 Sheri Casey MD [address] [place] [address] 276 [place] [address] Pulmonary Disease 07/23/14 Alphonso Billy MD [address] [place] [address] 10190 Cardiology 08/12/14 12/26/17 Roland Holt MD [address] [place] [address] 35262 Resident Student in organized health care education/training program 05/12/15 09/24/18 Amita Ryan MD [address] [place], [place] [id number] [address] Internal Medicine 12/19/15 Sid Lilly MD [address] [place] [address], [place] [address] Orthopaedic Surgery 02/22/16 Neda Boland, NANDINI Nurse Coordinator Neurology 02/23/16 09/01/18 Edison Tam MD [address] [place] [address] 4 [place], [place] 849725 Assigned PCP 07/30/19 2 documented as of this encounter
--- OUTSIDE RECORDS SUMMARY | 2023-04-24 09:56 | XMS_ITS | Encounter Summary ---
Author Name Unknown Organization [facility] Address [address] [place] [address] 55929 Care Team Providers Care Menhaden Fishing Crew Member Name Role Phone Edison Tam MD Primary Care Provider Edison Tam MD Primary Care Provider Sheri Csaey MD Unavailable [phone] Alphonso Billy MD Unavailable [phone] Roland Holt MD Unavailable [phone] Amita Ryan MD Unavailable [phone] Sid Lilly MD Unavailable Neda Boland RN Unavailable [phone] Edison Tam MD Unavailable [phone] Encounter Details Date Type Department Care Team (Late st Contact Info) Description 12/10/2012 [facility] Medicine GI - 1E [facility] 1st Floor, Clinic [address]E [address] [place] [address] [phone] Charan Salazar MD [address] [facility] 208 [place] [address] Social History Tobacco Use Types Packs/Day Years [...] on filedocumented in this encounter Care Teams Menhaden Fishing Crew Member Relationship Specialty Start Date End Date Edison Tam MD [address] [place] [address] 26380 PCP - General Family Practice 09/21/11 07/22/14 Edison Tam MD [address] [place] [address] 37001 PCP - General Family Practice 07/23/14 Sheri Casey MD [address] [place] [address] 276 [place] [address] Pulmonary Disease 07/23/14 Alphonso Billy MD [address] [place] [address] 75490 Cardiology 08/12/14 12/26/17 Roland Holt MD [address] [place] [address] 81162 Resident Student in organized health care education/training program 05/12/15 09/24/18 Amita Ryan MD [address] [place] [address] [address] Internal Medicine 12/19/15 Sid Lilly MD [address] [place] [address], [place] [address] Orthopaedic Surgery 02/22/16 Neda Boland, NANDINI Nurse Coordinator Neurology 02/23/16 09/01/18 Edison Tam MD [address] [place] [address] 4 [place], [place] 569395 Assigned PCP 07/30/19 2 documented as of this encounter
--- OUTSIDE RECORDS SUMMARY | 2023-04-24 09:56 | XMS_ITS | Encounter Summary ---
Author Name Unknown Organization [place] Address [address] [place] [address] 19362 Care Team Providers Care Track Repairer Helper Name Role Phone Edison Tam MD Primary Care Provider Edison Tam MD Primary Care Provider Sheri Casey MD Unavailable [phone] Alphonso Billy MD Unavailable [phone] Roland Holt MD Unavailable Amita Ryan MD Unavailable [phone] Sid Lilly MD Unavailable [phone] Neda Boland RN Unavailable [phone] Edison Tam MD Unavailable [phone] Encounter Details Date Type Department Care Team (Late st Contact Info) Description 12/05/2012 [facility] Medicine GI - 1E [facility] 1st Floor, Clinic [address]E [address] [place] [address] [phone] Charan Salazar MD [address] [facility] 208 [place] [address] Social History Tobacco Use Types Packs/Day Years [...] on filedocumented in this encounter Care Teams Track Repairer Helper Relationship Specialty Start Date End Date Edison Tam MD [address] [place] [address] 35358 PCP - General Family Practice 09/21/11 07/22/14 Edison Tam MD [address] [place] [address] 12973 PCP - General Family Practice 07/23/14 Shrei Casey MD [address] [place] [address] 276 [place] [address] Pulmonary Disease 07/23/14 Alphonso Billy MD [address] [place] [address] 89128 Cardiology 08/12/14 12/26/17 Roland Holt MD [address] [place] [address] 07569 Resident Student in organized health care education/training program 05/12/15 09/24/18 Amita Ryan MD [address] [place] [address] [address] Internal Medicine 12/19/15 Sid Lilly MD [address] [place] [address], [place] [address] Orthopaedic Surgery 02/22/16 Neda Boland, NANDINI Nurse Coordinator Neurology 02/23/16 09/01/18 Edison Tam MD [address] [place] [address] 4 [place], [place] 767795 Assigned PCP 07/30/19 2 documented as of this encounter
--- OUTSIDE RECORDS SUMMARY | 2023-04-24 09:57 | XMS_ITS | Encounter Summary ---
Author Name Unknown Organization [facility] Address [address] [place] [address] 83010 Care Team Providers Care Coordinator Of Placement Name Role Phone Edison Tam MD Primary Care Provider Edison Tam MD Primary Care Provider Sheri Casey MD Unavailable [phone] Alphonso Billy MD Unavailable [phone] Roland Holt MD Unavailable Amita Ryan MD Unavailable [phone] Sid Lilly MD Unavailable Neda Boland RN Unavailable [phone] Edison Tam MD Unavailable [phone] Encounter Details Date Type Department Care Team (Late st Contact Info) Description 11/15/2012 [facility] Medicine GI - 1E [facility] 1st Floor, Clinic [address]E [address] [place] [address] [phone] Charan Salazar MD [address] [facility] 208 [place] [address] Social History Tobacco Use Types Packs/Day Years [...] on filedocumented in this encounter Care Teams Coordinator Of Placement Relationship Specialty Start Date End Date Edison Tam MD [address] [place] [address] 95690 PCP - General Family Practice 09/21/11 07/22/14 Edison Tam MD [address] [place] [address] 65847 PCP - General Family Practice 07/23/14 Sheri Casey MD [address] [place] [address] 276 [place] [address] Pulmonary Disease 07/23/14 Alphonso Billy MD [address] [place] [address] 10968 Cardiology 08/12/14 12/26/17 Roland Holt MD [address] [place] [address] 56281 Resident Student in organized health care education/training program 05/12/15 09/24/18 Amita Ryan MD [address] [place], [place] [id number] [address] Internal Medicine 12/19/15 Sid Lilly MD [address] [place] [address], [place] [address] Orthopaedic Surgery 02/22/16 Neda Boland, NANDINI Nurse Coordinator Neurology 02/23/16 09/01/18 Edison Tam MD [address] [place] [address] 4 [place], [place] 645015 Assigned PCP 07/30/19 2 documented as of this encounter
--- OUTSIDE RECORDS SUMMARY | 2023-04-24 09:57 | XMS_ITS | Encounter Summary ---
Author Name Unknown Organization [place] Address [address] [place] [address] 46920 Care Team Providers Care Technology Trainer Name Role Phone Edison Tam MD Primary Care Provider Edison Tam MD Primary Care Provider [phone] Sheri Casey MD Unavailable [phone] Alphonso Billy MD Unavailable [phone] Roland Holt MD Unavailable [phone] Amita Ryan MD Unavailable Sid Lilly MD Unavailable Neda Boland RN Unavailable Edison Tam MD Unavailable [phone] Encounter Details Date Type Department Care Team (Late st Contact Info) Description 11/11/2012 MyC Medical Advice [facility] Adult Rheumatology 2nd Floor, Clinic [address]A [address] [phone] Debbi Juarez MD [address] [place] [address] Social History Tobacco Use Types Packs/Day [...] on filedocumented in this encounter Care Teams Technology Trainer Relationship Specialty Start Date End Date Edison Tam MD [address] [place] [address] 47712 PCP - General Family Practice 09/21/11 07/22/14 Edison Tam MD [address] [place] [address] 22168 PCP - General Family Practice 07/23/14 Sheri Casey MD [address] [place] [address] 276 [place] [address] Pulmonary Disease 07/23/14 Alphonso Billy MD [address] [place] [address] 31565 Cardiology 08/12/14 12/26/17 Roland Holt MD [address] [place] [address] 81299 Resident Student in organized health care education/training program 05/12/15 09/24/18 Amita Ryan MD [address] [place] [id number] [address] Internal Medicine 12/19/15 Sid Lilly MD [address] [place] [address] [place] [address] Orthopaedic Surgery 02/22/16 Neda Boland RN Nurse Coordinator Neurology 02/23/16 09/01/18 Edison Tam MD [address] [place] [address] 4 [place] [address] Assigned PCP 07/30/19 2 documented as of this encounter
--- OUTSIDE RECORDS SUMMARY | 2023-04-24 09:57 | XMS_ITS | Encounter Summary ---
Author Name Unknown Organization [facility] Address [address] [place] [address] 6[address]10 Care Team Providers Care Concreter Name Role Phone Edison Tam MD Primary Care Provider Edison Tam MD Primary Care Provider Sheri Casey MD Unavailable [phone] Alphonso Billy MD Unavailable [phone] Roland Holt MD Unavailable [phone] Amita Ryan MD Unavailable Sid Lilly MD Unavailable [phone] Neda Boland RN Unavailable [phone] Edison Tam MD Unavailable [phone] Encounter Details Date Type Department Care Team (Late st Contact Info) Description 11/07/2012 [facility] Medicine GI - 1E [facility] 1st Floor, Clinic [address]E [address] [place] [address] [phone] Charan Salazar MD [address] [facility] 208 [place] [address] Social History Tobacco Use Types Packs/Day Years [...] on filedocumented in this encounter Care Teams Concreter Relationship Specialty Start Date End Date Edison Tam MD [address] [place] [address] 46691 PCP - General Family Practice 09/21/11 07/22/14 Edison Tam MD [address] [place] [address] 18121 PCP - General Family Practice 07/23/14 Sheri Casey MD [address] [place] [address] 276 [place] [address] Pulmonary Disease 07/23/14 Alphonso Billy MD [address] [place] [address] 15176 Cardiology 08/12/14 12/26/17 Roland Holt MD [address] [place] [address] 6[address] Resident Student in organized health care education/training program 05/12/15 09/24/18 Amita Ryan MD [address] [place], [place] [id number] [address] Internal Medicine 12/19/15 Sid Lilly MD [address] [place] [address], [place] [address] Orthopaedic Surgery 02/22/16 Neda Boland, NANDINI Nurse Coordinator Neurology 02/23/16 09/01/18 Edison Tam MD [address] [place] [address] 4 [place], [place] 022745 Assigned PCP 07/30/19 2 documented as of this encounter
--- OUTSIDE RECORDS SUMMARY | 2023-04-24 09:57 | XMS_ITS | Clinical Summary ---
Author Name Unknown Organization [facility] Address [address] [place] [address] Care Team Providers Care Stull Installer Name Role Phone Steffanie Hitchcock MD Primary Care Provider Source Comments You are receiving this document as you are listed as the primary care provider,follow-up provider, or the patient has been referred to you for consultation.This is in compliance with the Medicare and[facility] Hospital[facility] EHR Incentive Program,which states Providers who transition their patient to another setting of careor provider of care or refers their patient to another provider of care shouldprovide summary care record for each transition of care or referral. [employer] Allergies Active Allergy Reactions Criticality Noted Date Comments Morphine Rash 02/12/2018 Penicillins Rash 02/12/2018 Sulfa Antibiotics 02/12/2018 Fatigue-reaction Medications Medication Sig Dispensed Refills Start Date End Date Status cyanocobalamin ([id number]) 1000 MCG/ML injection 6 01/07/2018 Active rOPINIRole [...] tablet Take 150 mg by mouth daily. Active predniSONE (DELTASONE) 1 MG tablet Take 0.25 mg by mouth daily. Active Active Problems Problem Noted Date Diagnosed [...] Comments Blood Pressure 126/79 02/24/2018 1:15 PM PERSONAL LINES UNDERWRITER Pulse 90 02/24/2018 1:15 PM PERSONAL LINES UNDERWRITER Temperature - - Respiratory Rate - - Oxygen Saturation - - Inhaled Oxygen Concentration - - Weight 53.1 kg (117 lb) 02/24/2018 1:15 PM PERSONAL LINES UNDERWRITER Height 153.7 cm (5' 0.5) 02/24/2018 1:15 PM PERSONAL LINES UNDERWRITER Body Mass Index 22.47 02/24/2018 1:15 PM PERSONAL LINES UNDERWRITER Plan of Treatment Health Maintenance Due Date [...] age to complete this topic Care Teams Stull Installer Relationship Specialty Start Date End Date Steffanie Hitchcock MD [address] [place] [address] PCP - General Family Practice 02/10/18
--- OUTSIDE RECORDS SUMMARY | 2023-04-24 09:57 | XMS_ITS | Encounter Summary ---
Author Name Unknown Organization [place] Address [address] [place] [address] Care Team Providers Care Rn Relief Charge Name Role Phone Edison Tam MD Primary Care Provider Edison Tam MD Primary Care Provider [phone] Sheri Casey MD Unavailable [phone] Alphonso Billy MD Unavailable [phone] Roland Holt MD Unavailable Amita Ryan MD Unavailable [phone] Sid Lilly MD Unavailable Neda Boland RN Unavailable Edison Tam MD Unavailable [phone] Encounter Details Date Type Department Care Team (Late st Contact Info) Description 11/11/2012 MyC Medical Advice [facility] Adult Rheumatology 2nd Floor, Clinic [address] [address] Debbi Juarez MD [address] [place] [address] Social History Tobacco Use Types Packs/Day [...] filedocumented in this encounter Care Teams Rn Relief Charge Relationship Specialty Start Date End Date Edison Tam MD [address] [place] [address] PCP - General Family Practice 09/21/11 07/22/14 Edison Tam MD [address] [place] [address] PCP - General Family Practice 07/23/14 Sheri Casey MD [address] [place] [address] 276 [place] [address] Pulmonary Disease 07/23/14 Alphonso Billy MD [address] [place] [address] Cardiology 08/12/14 12/26/17 Roland Holt MD [address] [place] [address] Resident Student in organized health care education/training program 05/12/15 09/24/18 Amita Ryan MD [address] [place], [place] [address] [address] Internal Medicine 12/19/15 Sid Lilly MD [address] [place] [address] [place] [address] Orthopaedic Surgery 02/22/16 Neda Boland RN Nurse Coordinator Neurology 02/23/16 09/01/18 Edison Tam MD [address] [place] [address] 4 [place] [address] Assigned PCP 07/30/19 2 documented as of this encounter
--- OUTSIDE RECORDS SUMMARY | 2023-04-24 09:57 | XMS_ITS | Encounter Summary ---
Author Name Unknown Organization [place] Address [address] [place] [address] Care Team Providers Care Project Control Manager Name Role Phone Edison Tam MD Primary Care Provider Edison Tam MD Primary Care Provider Sheri Casey MD Unavailable [phone] Alphonso Billy MD Unavailable [phone] Roland Holt MD Unavailable Amita Ryan MD Unavailable [phone] Sid Lilly MD Unavailable Neda Boland RN Unavailable [phone] Edison Tam MD Unavailable [phone] Encounter Details Date Type Department Care Team (Late st Contact Info) Description 11/17/2012 [facility] Medicine GI - 1E [facility] 1st Floor, Clinic [address] [place] [phone] Charan Salazar MD [address] [facility] [address] [place] [address] Social History Tobacco Use Types Packs/Day Years [...] on filedocumented in this encounter Care Teams Project Control Manager Relationship Specialty Start Date End Date Edison Tam MD [address] [place] [address] PCP - General Family Practice 09/21/11 07/22/14 Edison Tam MD [address] [place] [address] PCP - General Family Practice 07/23/14 Sheri Casey MD [address] [place] [address] 276 [place] [address] Pulmonary Disease 07/23/14 Alphonso Billy MD [address] [place] [address] Cardiology 08/12/14 12/26/17 Roland Holt MD [address] [place] [address] Resident Student in organized health care education/training program 05/12/15 09/24/18 Amita Ryan MD [address] [place] [id number] [address] Internal Medicine 12/19/15 Sid Lilly MD [address] [place] [address], [place] [address] Orthopaedic Surgery 02/22/16 Neda Boland, NANDINI Nurse Coordinator Neurology 02/23/16 09/01/18 Edison Tam MD [address] [place] [address] 4 [place], [place] 709605 Assigned PCP 07/30/19 2 documented as of this encounter
--- OUTSIDE RECORDS SUMMARY | 2023-04-24 09:57 | XMS_ITS | Encounter Summary ---
Author Name Unknown Organization [place] Address [address] [place] [address] Care Team Providers Care Bike Technician Name Role Phone Edison Olivas MD Primary Care Provider Edison Olivas MD Primary Care Provider Sheri Casey MD Unavailable [phone] Alphonso Billy MD Unavailable [phone] Roland Holt MD Unavailable Amita Ryan MD Unavailable Sid Lilly MD Unavailable Neda Boland RN Unavailable Edison Olivas MD Unavailable [phone] Encounter Details Date Type Department Care Team (Late st Contact Info) Description 11/06/2011 Office Visit-P INTERFACE P DEPT Kassy Maloney MD XX RESIGNED XX [place], [place] [address]995 Social History Tobacco Use Types Packs/Day Years [...] Maloney MD - 11/06/2011 12:49 PM CDT Bee Tender: Kassy Maloney Status: Final - Signature Encounter: 2011-11-06 12:49:00.000 Type: DXA SCAN [facility] [address] [place] [address] 6[place] [address] Phone: Fax: Bone Densitometry Report: 11/06/2011 REPORT STATUS: FINAL DR EDISON OLIVAS DR: Your patient, MARIA E GONZALEZ ([id number] ), completed a DXA exam ([id number] ) on a [employer] on 11/06/2011 . The following is a [...] OLIVAS DR: Your patient, MARIA E GONZALEZ ([id number] ), completed a DXA exam ([id number] ) on a [employer] on 11/06/2011 . The following are the [...] to you and your patient. Principal result heavy truck technician: Marisa Maloney MD, CCD parachute/combatant diver officer Division of Rheumatic and Autoimmune Diseases [facility] DXA Services #: [phone] fax #: [phone] References: 1. NOF Physician's Guideline Website address: www.nof.org 2. [place] College of Rheumatology Recommendations for the Prevention and Treatment of Glucocorticoid-induced Osteoporosis: 2001 update in Arthritis and Rheumatism September 2000 edition (vol 44, issue7) pp 1499 - 1506. 3. ISCD position statements: www.iscd.org [...] by:Kassy Maloney MD Nov 13 2011 11:33AM HIDE MILL MAN Author documented in this encounter Plan of Treatment Not on file documented as of this encounter Visit Diagnoses Not on filedocumented in this encounter Care Teams Bike Technician Relationship Specialty Start Date End Date Edison Olivas MD [address] [place] [address] PCP - General Family Practice 09/21/11 07/22/14 Edison Olivas MD [address] [place] [address] PCP - General Family Practice 07/23/14 Sheri Casey MD [address] [place] [address] 886155 Pulmonary Disease 07/23/14 Alphonso Billy MD [address] [place] [address] 288445 Cardiology 08/12/14 12/26/17 Roland Holt MD [address] [place] [address] 615215 Resident Student in organized health care education/training program 05/12/15 09/24/18 Amita Ryan MD [address] [facility] [id number] [place] [address] Internal Medicine 12/19/15 Sid Lilly MD [address] [place] [address] Orthopaedic Surgery 02/22/16 Neda Boland, NANDINI Nurse Coordinator Neurology 02/23/16 09/01/18 Edison Olivas MD [address] [place] [address] [place] 4 [place] [address] Assigned PCP 07/30/19 04/30/20 documented as of this encounter
--- OUTSIDE RECORDS SUMMARY | 2023-04-24 09:57 | XMS_ITS | Encounter Summary ---
Author Name Unknown Organization [place] Address [address] [place] [address] Care Team Providers Care Sustainability Project Manager Name Role Phone Edison Tam MD Primary Care Provider Edison Tam MD Primary Care Provider Sheri Casey MD Unavailable [phone] Alphonso Billy MD Unavailable [phone] Roland Holt MD Unavailable [phone] Amita Ryan MD Unavailable [phone] Sid iLlly MD Unavailable [phone] Neda Boland RN Unavailable Edison Tam MD Unavailable [phone] Encounter Details Date Type Department Care Team (Late st Contact Info) Description 11/24/2012 [facility] Medicine GI - 1E [facility] 1st Floor, Clinic [address] [place] [phone] Charan Salazar MD [address] [facility] 208 [place] [address] Social History Tobacco Use Types Packs/Day Years [...] on filedocumented in this encounter Care Teams Sustainability Project Manager Relationship Specialty Start Date End Date Edison Tam MD [address] [place] [address] PCP - General Family Practice 09/21/11 07/22/14 Edison Tam MD [address] [place] [address] PCP - General Family Practice 07/23/14 Sheri Casey MD [address] [place] [address] 276 [place] [address] Pulmonary Disease 07/23/14 Alphonso Billy MD [address] [place] [address] Cardiology 08/12/14 12/26/17 Roland Holt MD [address] [place] [address] Resident Student in organized health care education/training program 05/12/15 09/24/18 Amita Ryan MD [address] [place] [address] [address] Internal Medicine 12/19/15 Sid Lilly MD [address] [place] [address], [place] [address] Orthopaedic Surgery 02/22/16 Neda Boland, NANDINI Nurse Coordinator Neurology 02/23/16 09/01/18 Edison Tam MD [address] [place] [address] 4 [place], [place] 653145 Assigned PCP 07/30/19 2 documented as of this encounter
--- OUTSIDE RECORDS SUMMARY | 2023-04-24 09:57 | XMS_ITS | Encounter Summary ---
Author Name Unknown Organization [place] Address [address] [place] [address] Care Team Providers Care Giant Tire Repairer Name Role Phone Edison Tam MD Primary Care Provider Edison Tam MD Primary Care Provider [phone] Sheri Casey MD Unavailable [phone] Alphonso Billy MD Unavailable [phone] Roland Holt MD Unavailable [phone] Amita Ryan MD Unavailable Sid Lilly MD Unavailable Neda Boland RN Unavailable [phone] Edison Tam MD Unavailable Encounter Details Date Type Department Care Team (Late st Contact Info) Description 11/15/2012 MyC Medical Advice [facility] Adult Rheumatology 2nd Floor, Clinic [address] [address] Debbi Juarez MD [address] [place] [address] Social History Tobacco Use Types Packs/Day [...] on filedocumented in this encounter Care Teams Giant Tire Repairer Relationship Specialty Start Date End Date Edison Tam MD [address] [place] [address] PCP - General Family Practice 09/21/11 07/22/14 Edison Tam MD [address] [place] [address] PCP - General Family Practice 07/23/14 Sheri Casey MD [address] [place] [address] 276 [place] [address] Pulmonary Disease 07/23/14 Alphonso Billy MD [address] [place] [address] Cardiology 08/12/14 12/26/17 Roland Holt MD [address] [place] [address] Resident Student in organized health care education/training program 05/12/15 09/24/18 Amita Ryan MD [address] [place], [place] [id number] [address] Internal Medicine 12/19/15 Sid Lilly MD [address] [place] [address] [place] [address] Orthopaedic Surgery 02/22/16 Neda Boland RN Nurse Coordinator Neurology 02/23/16 09/01/18 Edison Tam MD [address] [place] [address] 4 [place] [address] Assigned PCP 07/30/19 2 documented as of this encounter
--- OUTSIDE RECORDS SUMMARY | 2023-04-24 09:57 | XMS_ITS | Encounter Summary ---
Author Name Unknown Organization [place] Address [address] [place] [address] Care Team Providers Care Smasher Name Role Phone Edison Tam MD Primary Care Provider Edison Tam MD Primary Care Provider [phone] Sheri Casey MD Unavailable [phone] Alphonso Billy MD Unavailable Roland Holt MD Unavailable Amita Ryan MD Unavailable Sid Lilly MD Unavailable Neda Boland RN Unavailable Edison Tam MD Unavailable [phone] Encounter Details Date Type Department Care Team (Late st Contact Info) Description 12/04/2012 MyC Medical Advice [facility] 6th Floor, Clinic 6A [place] [address] [facility] [address] [place] [address] Laisha Moraes MD [address] [place] [address] 101 [place], [place] 8[address] Social History Tobacco Use Types Packs/Day Years [...] on filedocumented in this encounter Care Teams Smasher Relationship Specialty Start Date End Date Edison Tam MD [address] [place] [address] PCP - General Family Practice 09/21/11 07/22/14 Edison Tam MD [address] [place] [address] PCP - General Family Practice 07/23/14 Sheri Casey MD [address] [place] [address] 276 [place] [address] Pulmonary Disease 07/23/14 Alphonso Billy MD [address] [place] [address] Cardiology 08/12/14 12/26/17 Roland Holt MD [address] [place] [address] Resident Student in organized health care education/training program 05/12/15 09/24/18 Amita Ryan MD [address] [place] [address] [address] Internal Medicine 12/19/15 Sid Lilly MD [address] [place] [address] [place] [address] Orthopaedic Surgery 02/22/16 Neda Boland, NANDINI Nurse Coordinator Neurology 02/23/16 09/01/18 Edison Tam MD [address] [place] [address] [place] 4 [place], [place] 256265 Assigned PCP 07/30/19 04/30/20 documented as of this encounter
--- OUTSIDE RECORDS SUMMARY | 2023-04-24 09:57 | XMS_ITS | Encounter Summary ---
Author Name Unknown Organization [place] Address [address] [place] [address] Care Team Providers Care Residential Living Assistant Name Role Phone Edison Tam MD Primary Care Provider Edison Tam MD Primary Care Provider [phone] Sheri Casey MD Unavailable [phone] Alphonso Billy MD Unavailable [phone] Roland Holt MD Unavailable Amita Ryan MD Unavailable Sid Lilly MD Unavailable Neda Boland RN Unavailable Edison Tam MD Unavailable [phone] Encounter Details Date Type Department Care Team (Late st Contact Info) Description 11/11/2012 MyC Medical Advice [facility] Adult Rheumatology 2nd Floor, Clinic [address]A [address] [address] Debbi Juarez MD [address] [place] [address] Social History Tobacco Use Types Packs/Day [...] on filedocumented in this encounter Care Teams Residential Living Assistant Relationship Specialty Start Date End Date Edison Tam MD [address] [place] [address] PCP - General Family Practice 09/21/11 07/22/14 Edison Tam MD [address] [place] [address] PCP - General Family Practice 07/23/14 Sheri Casey MD [address] [place] [address] 276 [place] [address] Pulmonary Disease 07/23/14 Alphonso Billy MD [address] [place] [address] Cardiology 08/12/14 12/26/17 Roland Holt MD [address] [place] [address] Resident Student in organized health care education/training program 05/12/15 09/24/18 Amita Ryan MD [address] [place], [place] [address] [address] Internal Medicine 12/19/15 Sid Lilly MD [address] [place] [address] [place] [address] Orthopaedic Surgery 02/22/16 Neda Boland RN Nurse Coordinator Neurology 02/23/16 09/01/18 Edison Tam MD [address] [place] [address] 4 [place] [address] Assigned PCP 07/30/19 2 documented as of this encounter
--- OUTSIDE RECORDS SUMMARY | 2023-04-24 09:57 | XMS_ITS | Encounter Summary ---
Author Name Unknown Organization [place] Address [address] [place] [address] Care Team Providers Care Stage Builder Name Role Phone Edison Tam MD Primary Care Provider Edison Tam MD Primary Care Provider Sheri Casey MD Unavailable [phone] Alphonso Billy MD Unavailable [phone] Roland Holt MD Unavailable Amita Ryan MD Unavailable [phone] Sid Lilly MD Unavailable Neda Boland RN Unavailable [phone] Edison Tam MD Unavailable [phone] Encounter Details Date Type Department Care Team (Late st Contact Info) Description 11/11/2012 [facility] Medicine GI - 1E [facility] 1st Floor, Clinic [address]E [address] [place] [phone] Charan Salazar MD [address] [facility] [address] [place] [address] Social History Tobacco Use Types Packs/Day Years [...] on filedocumented in this encounter Care Teams Stage Builder Relationship Specialty Start Date End Date Edison Tam MD [address] [place] [address] PCP - General Family Practice 09/21/11 07/22/14 Edison Tam MD [address] [place] [address] PCP - General Family Practice 07/23/14 Sheri Casey MD [address] [place] [address] 276 [place] [address] Pulmonary Disease 07/23/14 Alphonso Billy MD [address] [place] [address] Cardiology 08/12/14 12/26/17 Roland Holt MD [address] [place] [address] Resident Student in organized health care education/training program 05/12/15 09/24/18 Amita Ryan MD [address] [place], [place] [address] [address] Internal Medicine 12/19/15 Sid Lilly MD [address] [place] [address], [place] [address] Orthopaedic Surgery 02/22/16 Neda Boland, NANDINI Nurse Coordinator Neurology 02/23/16 09/01/18 Edison Tam MD [address] [place] [address] 4 [place], [place] 222475 Assigned PCP 07/30/19 2 documented as of this encounter
--- OUTSIDE RECORDS SUMMARY | 2023-04-24 09:57 | XMS_ITS | Encounter Summary ---
Author Name Unknown Organization [place] Address [address] [place] [address] Care Team Providers Care Cellophane Bath Mixer Name Role Phone Edison Tam MD Primary Care Provider Edison Tam MD Primary Care Provider [phone] Sheri Casey MD Unavailable [phone] Alphonso Billy MD Unavailable [phone] Roland Holt MD Unavailable [phone] Amita Ryan MD Unavailable [phone] Sid Lilly MD Unavailable Neda Boland RN Unavailable [phone] Edison Tam MD Unavailable Encounter Details Date Type Department Care Team (Late st Contact Info) Description 11/07/2012 MyC Medical Advice [facility] Adult Rheumatology 2nd Floor, Clinic [address]A [address] [address] Debbi Juarez MD [address] [place] [address] Social History Tobacco Use Types Packs/Day [...] on filedocumented in this encounter Care Teams Cellophane Bath Mixer Relationship Specialty Start Date End Date Edison Tam MD [address] [place] [address] PCP - General Family Practice 09/21/11 07/22/14 Edison Tam MD [address] [place] [address] PCP - General Family Practice 07/23/14 Sheri Casey MD [address] [place] [address] 276 [place] [address] Pulmonary Disease 07/23/14 Alphonso Billy MD [address] [place] [address] Cardiology 08/12/14 12/26/17 Roland Holt MD [address] [place] [address] Resident Student in organized health care education/training program 05/12/15 09/24/18 Amita Ryan MD [address] [place] [address] [address] Internal Medicine 12/19/15 Sid Lilly MD [address] [place] [address] [place] [address] Orthopaedic Surgery 02/22/16 Neda Boland RN Nurse Coordinator Neurology 02/23/16 09/01/18 Edison Tam MD [address] [place] [address] 4 [place] [address] Assigned PCP 07/30/19 2 documented as of this encounter
[2023-04-24] MEDS: 0.9 % SODIUM CHLORIDE 1000 ml 1,000 ML IV (10:12)
[2023-04-24] MEDS: ONDANSETRON 2 MG/ML inj 4 MG IVP ×2 (10:12→18:16)
[2023-04-24] MEDS: HYDROmorphone 0.5 mg/0.5 ml inj IVP ×4 (10:12→23:34)
[2023-04-24 10:30] LABS: Appearance Urine Cloudy (Clear); Bilirubin Urine Negative (Negative); Blood Urine 2+ (Negative); Color Urine Yellow (Yellow); Glucose Urine Negative (Negative); Ketones Urine 2+ (Negative); Leukocyte Esterase Urine 3+ (Negative); Nitrite Urine Positive (Negative); Protein Urine 1+ (Negative); Specific Gravity Urine 1.015 (1.000-1.030); Urobilinogen Urine 0.2 (0.2-1.0)
[2023-04-24 10:33] LABS: Basophils Percent Auto 0.2 % (0.0-3.0); Eosinophils Percent Auto 0.4 % (0.0-7.0); Hematocrit 41.5 % (33.0-51.0); Hemoglobin* 13.5 gm/dL (12.0-16.0); Immature Granulocytes Pct Auto 0.1 %; Lymphocytes Percent Auto 7.6 % (20-44); Mean Corpuscular HGB Conc 33 gm/dL (32-36); Mean Corpuscular Hemoglobin 31 pg (26-34); Mean Corpuscular Volume 95 fL (80-100); Monocytes Percent Auto 9.5 % (0.0-11.0); Neutrophils Percent Auto 82.2 % (42.0-72.0); Platelet Count* 187 K/uL (140-440); RDW Coefficient of Variation % 12.6 % (11.5-15.5); Red Blood Count 4.39 m/uL (4.00-5.20); White Blood Count* 12.27 K/uL (4.50-11.00)
[2023-04-24 10:42] LABS: Slide Review Reflex No
[2023-04-24 10:46] LABS: RBC Urine 0-2 (0-2); Squamous Epithelial Cell Urine Few (None-Few); WBC Urine >100 (0-5)
[2023-04-24 10:47] LABS: Albumin* 3.9 g/dL (3.3-5.0); Chloride* 102 mmol/L (96-114); Sodium* 136 mmol/L (135-149)
[2023-04-24 10:47] LABS: Bacteria Urine Many
[2023-04-24 10:48] LABS: Potassium* 3.7 mmol/L (3.6-5.1)
[2023-04-24 10:50] LABS: Alkaline Phosphatase* 68 U/L (40-150); Anion Gap 8 mEq/L (7-15); Aspartate Amino Transferase* 37 U/L (12-35); Bilirubin Direct* 0.3 mg/dL (0.0-0.5); Bilirubin Total* 0.9 mg/dL (0.1-1.5); Blood Urea Nitrogen* 12 mg/dL (7-30); Calcium* 8.8 mg/dL (8.4-10.6); Carbon Dioxide* 26 mmol/L (20-32); Est. Creatinine Clearance* 40.63; Estimated Glomerular Filt Rate 61 ml/min; Glucose* 92 mg/dL (60-115); Lipase* 25 U/L (23-300); Total Protein* 6.7 g/dL (6.0-8.3)
[2023-04-24 10:51] LABS: Alanine Aminotransferase* 38 U/L (4-35)
--- NOTE | 2023-04-24 12:20 | ED.NURSE ---
Notified MD that patient desats to 82-85% on room air. MD okay with 88% in RA. Encouraged patient to cough and deep breath. Repositioned patient to sitting straight up and this improved saturations to 89% on RA. Patient has hx of COPD.
--- NOTE | 2023-04-24 13:26 | MR_ITS ---
[facility] [address] [facility] [address] Phone:?[phone] Fax:?[phone] Referring Physician Information: Claribel Bear M.D. [address] [facility] [address] Phone:?[phone] Fax:?[phone] Patient:Ester Brown D.O.B:?1955 Sex:?Female Phone:?[phone] [facility] MRN:?[id number] Exam Date:?04/24/2023 EXAM: MR CHOLANGIOGRAM (MRCP) WITHOUT CONTRAST CLINICAL INFORMATION: Evaluate cholecystectomy. TECHNICAL INFORMATION: Axial and coronal T1 and T2 images and diffusion weighted sequences were obtained of the abdomen with breath-holding technique. Additionally, utilizing an acquisition workstation, 3D MIP reconstructions were created by request with concurrent physician supervision, which included monitoring and adjustment of the 3D images. COMPARISON: Same day CT was reviewed. INTERPRETATION: The CBD measures 14 mm in diameter. There is no intrahepatic biliary ductal dilatation. No intrinsic ductal stricture, extrinsic obstructing lesions, or intraluminal filling defects. Status post cholecystectomy. There is a 5.3 x 2.2 cm fluid collection in the gallbladder fossa as well as trace perihepatic ascites. Additionally, a small right pleural effusion is present. Pancreatic duct caliber is within normal limits. No pancreas divisum. No solid or cystic pancreatic lesions identified. The liver, adrenal glands, kidneys, and visualized alimentary tract are unremarkable on this nonenhanced exam. Moderate hiatal hernia incidentally. CONCLUSION: 1. Status post cholecystectomy with probable biloma in the gallbladder fossa. Trace perihepatic ascites and a small right pleural effusion could be bland (i.e., reactive) or bilious. 2. The CBD is diffusely dilated but there is no choledocholithiasis or other visible cause for obstruction. Electronically signed on 04/24/2023 5:04:00 PM by Ambrosio De La Garza M.D.
[2023-04-24] MEDS: ERTAPENEM 1 GM in 0.9 % SODIUM CHLORIDE Mini-bag 100 ML IVPB (13:45)
[2023-04-24] MEDS: HYDROmorphone 0.5 mg/0.5 ml inj 0.2 MG IVP (13:56)
--- NOTE | 2023-04-24 16:02 | PM.IMHP1 ---
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 Patient reports abdominal pain, not relieved with hydrocodone following surgery. Had a fever of 102? last night. Has otherwise been afebrile in the ED. Has had intermittent nausea without vomiting. No diarrhea. Last BM was Saturday prior to surgery. Does report increased odor to her urine. In the ED, CT showed fluid in the gallbladder fossa along with lower lobe infiltrates. ED provider discussed gallbladder fossa findings with Dr. Bear. She did not think this represented a biloma or obstructive process. MRCP was ordered and patient was sent to the floor. Received 1 L IV NS and 1 g ertapenem in the ED. [facility] Medical History COPD (chronic obstructive pulmonary disease) ?J44.9 - Chronic obstructive pulmonary disease, unspecified (ICD-10) Vitamin B12 deficiency ?E53.8 - Deficiency of other specified B group vitamins (ICD-10) Inflammation of eye ?H57.89 - Other specified disorders of eye and adnexa (ICD-10) History of left bundle branch block (LBBB) ?Z86.79 - Personal history of other diseases of the circulatory system (ICD-10) Short of breath on exertion (~2018) ?R06.02 - Shortness of breath (ICD-10) Renal mass (2012) ?N28.89 - Other specified disorders of kidney and ureter (ICD-10) Raynaud's phenomenon ?I73.00 - Raynaud's syndrome without gangrene (ICD-10) Osteoporosis ?M81.0 - Age-related osteoporosis without current pathological fracture (ICD-10) Migraine headache ?G43.909 - Migraine, unspecified, not intractable, without status migrainosus (ICD-10) Lupus erythematosus ?L93.0 - Discoid lupus erythematosus (ICD-10) Hypothyroidism ?E03.9 - Hypothyroidism, unspecified (ICD-10) History of vitamin D deficiency ?Z86.39 - Personal history of other endocrine, nutritional and metabolic disease (ICD-10) History of hyperglycemia ?Z86.39 - Personal history of other endocrine, nutritional and metabolic disease (ICD-10) History of carbon monoxide poisoning ?Z91.89 - Other specified personal risk factors, not elsewhere classified (ICD-10) Encounter for counseling regarding advance directives (04/14/18) ?Z71.89 - Other specified counseling (ICD-10) Cyst of ovary ?N83.209 - Unspecified ovarian cyst, unspecified side (ICD-10) Crohn's disease ?K50.90 - Crohn's disease, unspecified, without complications (ICD-10) Chronic sinusitis ?J32.9 - Chronic sinusitis, unspecified (ICD-10) Surgical History Status post repair of nerve ?Z98.890 - Other specified postprocedural states (ICD-10) History of surgery on right wrist (1984) ?Z98.890 - Other specified postprocedural states (ICD-10) History of lumbar laminectomy (2008) ?Z98.890 - Other specified postprocedural states (ICD-10) History of left oophorectomy ?Z90.721 - Acquired absence of ovaries, unilateral (ICD-10) History of colectomy (1979) ?Z90.49 - Acquired absence of other specified parts of digestive tract (ICD-10) History of carpal tunnel surgery of right wrist ?Z98.890 - Other specified postprocedural states (ICD-10) History of bilateral cataract extraction (05/2018) ?Z98.41 - Cataract extraction status, right eye (ICD-10) ?Z98.42 - Cataract extraction status, left eye (ICD-10) Family History Paternal Grandmother Stroke, Onset Age: 86 Sister MS (multiple sclerosis) Sjogren's disease Mother Lung cancer, Onset Age: 86 Other Asthma Rheumatoid arthritis Social History Narrative: does not drink alcohol exercises 5-6 times per week- walk, [employer] non-smoker - remote hx of 10 pack years single, , 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, no kids, has cat What is your current living situation?: I have a place to live at present, but am concerned about future Problems where you live: no known problems Problems where you live details: NONE In the past 12 months, utilities in danger of being shut off: no In past 12 months, lack of transportation kept you from medical appts, meetings, work, or getting things needed for daily living: no In the past 12 mos, have been you worried that your food would run out before you had money to buy more?: never true In the past 12 mos, the food you bought just didn't last and you didn't have money to buy more?: never true Highest level of school completed/degree received: Bachelor's degree Smoking Status: Former smoker Do you use any of these nicotine containing products: None Second hand tobacco smoke exposure: No How often do you have a drink containing alcohol: never AUDIT-C Alcohol total score: 0 Non-prescribed substance use: denies use Caffeine: No How often does anyone, including family, friends and others, physically hurt you: never How often does anyone, including family, friends and others, insult or talk down to you: never How often does anyone, including family, friends and others, threaten you with harm: never How often does anyone, including family, friends and others, scream or curse at you: never Are you using contraception or practicing any form of control: No service: No Meds Home Medications and Allergies Home Medications Medication Instructions Recorded Confirmed Type acetaminophen 500 mg tablet 1,000 mg PO TID 10/10/21 04/24/23 History calcium carbonate 500 mg calcium 500 mg PO BID 10/10/21 04/24/23 History (1,250 mg) tablet cholecalciferol (vitamin D3) 25 1,000 unit PO DAILY 10/10/21 04/24/23 History mcg (1,000 unit) tablet cyanocobalamin (vitamin B-12) 500 mcg IM Q30D 10/10/21 04/24/23 History 1,000 mcg/mL injection solution guaifenesin 600 mg tablet, 600 mg PO DAILY 10/10/21 04/24/23 History extended release 12 hr lidocaine 5 % topical ointment 1 applic topical DAILY PRN 10/10/21 04/24/23 History potassium gluconate 595 mg (99 mg) 595 mg PO DAILY 10/10/21 04/24/23 History tablet prasterone (dhea) 50 mg tablet 50 mg PO DAILY 10/10/21 04/24/23 History ropinirole 1 mg tablet 3 mg PO HS 10/10/21 04/24/23 History amitriptyline 25 mg tablet 25 mg PO HS PRN 04/18/23 04/24/23 History amlodipine 5 mg tablet 5 mg PO DAILY 04/18/23 04/24/23 History albuterol sulfate 2.5 mg/3 mL 2.5 mg inhalation Q4H PRN wheezing 04/24/23 04/24/23 History (0.083 %) solution for nebulization albuterol sulfate 90 mcg/actuation 1 - 2 puff inhalation Q4H PRN 04/24/23 04/24/23 History aerosol inhaler dyspnea cyclobenzaprine 10 mg tablet 10 mg PO DAILY PRN 04/24/23 04/24/23 History folic acid 1 mg tablet 1 mg PO DAILY 04/24/23 04/24/23 History iron bisglycinate chelate 28 mg PO DAILY 04/24/23 04/24/23 History lysine 1,000 mg tablet 1,000 mg PO DAILY 04/24/23 04/24/23 History sucralfate 1 gram tablet 1 g PO .BIDAC 04/24/23 04/24/23 History triamcinolone acetonide 0.1 % 1 applic topical TID PRN itch 04/24/23 04/24/23 History topical cream triamcinolone acetonide 55 mcg 1 spray intranasal DAILY PRN 04/24/23 04/24/23 History nasal spray aerosol (Nasacort Allergy) venlafaxine 150 mg 150 mg PO DAILY 04/24/23 04/24/23 History capsule,extended release 24 hr Allergies Allergy/AdvReac Type Severity Reaction Status Date / Time morphine Allergy Intermediate Rash Verified 04/24/23 11:22 Penicillins Allergy Intermediate Rash Verified 04/24/23 13:38 tetracycline Allergy Unknown Verified 04/24/23 11:22 adalimumab Allergy Rash Verified 04/24/23 11:22 ibuprofen Allergy Nausea Verified 04/24/23 11:22 infliximab Allergy intolerance Verified 04/24/23 11:22 - doesn't work for pt loratadine Allergy dry mouth, Verified 04/24/23 11:22 rapid heart rate meperidine Allergy Rash Verified 04/24/23 11:22 pregabalin Allergy feels Verified 04/24/23 11:22 intoxicated tramadol Allergy rash, Verified 04/24/23 11:22 itching Sulfa (Sulfonamide AdvReac Intermediate Fatigued Verified 04/24/23 13:38 Antibiotics) Exam Narrative: Exam Narrative: PHYSICAL EXAM General: Pleasant, conversant, appears mildly uncomfortable HEENT: Normocephalic, atraumatic, sclera white, EOMI, oral mucosa dry Cardiovascular: RRR, S1S2. No pitting edema Pulmonary: CTA bilaterally without rhonchi, rales, expiratory wheezes. No dyspnea Abdominal: Soft, nondistended, right upper quadrant tenderness, no guarding Neurological: Alert, answering questions appropriately, cranial nerves intact, no focal findings Extremities: No gross joint deformity or swelling. AROMI. Neurovascularly intact Skin: Warm, dry. Const: Vital Signs, click to edit/add: Vital Signs - 24 hr 04/24/23 09:29 04/24/23 10:20 04/24/23 10:21 Temperature 98.3 F Pulse Rate 97 96 Pulse Rate [Pulse Oximeter] 98 Respiratory Rate 16 Blood Pressure 120/60 Blood Pressure [Ri ght Upper Arm] 131/67 Pulse Oximetry 91 81 L 83 L Oxygen Delivery Me thod Room Air Oxygen Flow Rate 04/24/23 10:30 04/24/23 10:32 04/24/23 10:45 Temperature Pulse Rate 92 94 95 Pulse Rate [Pulse Oximeter] Respiratory Rate 16 Blood Pressure 118/60 Blood Pressure [Ri ght Upper Arm] Pulse Oximetry 91 90 88 Oxygen Delivery Me thod Nasal Cannula Oxygen Flow Rate 2 04/24/23 11:17 04/24/23 11:20 04/24/23 11:20 Temperature Pulse Rate 106 H 101 H 101 H Pulse Rate [Pulse Oximeter] Respiratory Rate Blood Pressure 118/64 118/64 Blood Pressure [Ri ght Upper Arm] Pulse Oximetry 88 90 90 Oxygen Delivery Me thod Oxygen Flow Rate 04/24/23 11:30 04/24/23 11:32 04/24/23 11:33 Temperature Pulse Rate 98 101 H 101 H Pulse Rate [Pulse Oximeter] Respiratory Rate Blood Pressure 125/58 L Blood Pressure [Ri ght Upper Arm] Pulse Oximetry 91 91 87 L Oxygen Delivery Me thod Oxygen Flow Rate 04/24/23 11:45 04/24/23 12:00 04/24/23 12:02 Temperature Pulse Rate 104 H 100 Pulse Rate [Pulse Oximeter] Respiratory Rate Blood Pressure 89/65 L Blood Pressure [Ri ght Upper Arm] Pulse Oximetry 87 L 83 L Oxygen Delivery Me thod Oxygen Flow Rate 04/24/23 12:03 04/24/23 12:15 04/24/23 12:30 Temperature Pulse Rate 100 96 99 Pulse Rate [Pulse Oximeter] Respiratory Rate Blood Pressure 111/62 Blood Pressure [Ri ght Upper Arm] Pulse Oximetry 88 90 87 L Oxygen Delivery Me thod Room Air Oxygen Flow Rate 04/24/23 12:31 04/24/23 12:45 04/24/23 13:02 Temperature 98.3 F Pulse Rate 97 106 H 111 H Pulse Rate [Pulse Oximeter] Respiratory Rate 16 Blood Pressure 119/61 137/81 Blood Pressure [Ri ght Upper Arm] Pulse Oximetry 87 L 92 92 Oxygen Delivery Me thod Nasal Cannula Room Air Oxygen Flow Rate 2 2 04/24/23 13:03 04/24/23 13:15 04/24/23 13:30 Temperature Pulse Rate 108 H 110 H 101 H Pulse Rate [Pulse Oximeter] Respiratory Rate Blood Pressure Blood Pressure [Ri ght Upper Arm] Pulse Oximetry 92 93 92 Oxygen Delivery Me thod Oxygen Flow Rate 04/24/23 13:32 04/24/23 13:45 04/24/23 14:00 Temperature Pulse Rate 103 H 101 H 104 H Pulse Rate [Pulse Oximeter] Respiratory Rate 16 Blood Pressure 123/68 Blood Pressure [Ri ght Upper Arm] Pulse Oximetry 91 90 89 Oxygen Delivery Me thod Oxygen Flow Rate 04/24/23 14:02 04/24/23 14:15 04/24/23 15:18 Temperature Pulse Rate 100 94 Pulse Rate [Pulse Oximeter] Respiratory Rate 16 Blood Pressure 103/60 128/71 Blood Pressure [Ri ght Upper Arm] Pulse Oximetry 90 91 Oxygen Delivery Me thod Oxygen Flow Rate 04/24/23 15:32 Temperature Pulse Rate 101 H Pulse Rate [Pulse Oximeter] Respiratory Rate 16 Blood Pressure 122/68 Blood Pressure [Ri ght Upper Arm] Pulse Oximetry 90 Oxygen Delivery Me thod Nasal Cannula Oxygen Flow Rate 2 Hospitalist - H&P: Result Labs Labs: Short CBC 04/24/23 Range/Units 10:10 WBC 12.27 H (4.50-11.00) K/uL Hgb 13.5 (12.0-16.0) gm/dL Hct 41.5 (33.0-51.0) % Plt Count 187 (140-440) K/uL BMP 04/24/23 10:10 Sodium 136 Potassium 3.7 Chloride 102 Carbon Dioxide 26 BUN 12 Creatinine 1.0 Glucose 92 Calcium 8.8 Liver Function 04/24/23 Range/Units 10:10 Total Bilirubin 0.9 (0.1-1.5) mg/dL Direct Bilirubin 0.3 (0.0-0.5) mg/dL AST 37 H (12-35) U/L ALT 38 H (4-35) U/L Alkaline Phosphatase 68 (40-150) U/L Albumin 3.9 (3.3-5.0) g/dL Urine 04/24/23 Range/Units 10:15 Urine Color Yellow (Yellow) Urine Appearance Cloudy A (Clear) Urine pH 6.0 (5.0-8.5) Ur Specific [place] 1.015 (1.000-1.030) Urine Protein 1+ A (Negative) Urine Glucose (UA) Negative (Negative) Imaging CT scan - abdomen: Attestation: I have reviewed the pertinent imaging results. Radiologist's impression: INDICATION: POSTOP PAIN. TECHNIQUE: POSTCONTRAST CT ABDOMEN AND PELVIS PERFORMED. 64 ML ISOVUE 370 ADMINISTERED INTRAVENOUSLY. COMPARISON: 02/12/2023. FINDINGS: PARENCHYMAL DENSITIES ARE PRESENT WITHIN THE LOWER LOBES BILATERALLY ALONG WITH A SMALL RIGHT PLEURAL EFFUSION. HIATAL HERNIA IS PRESENT MEASURING 5.5 CM. THIS WAS PRESENT PREVIOUSLY. POSTOPERATIVE CHANGES OF CHOLECYSTECTOMY ARE PRESENT. THERE IS A SMALL COLLECTION OF FLUID WITHIN THE GALLBLADDER FOSSA MEASURING APPROXIMATELY 2.8 X 2.3 CM WHICH ALSO CONTAINS SMALL BUBBLES OF AIR. THE COMMON BILE DUCT IS DILATED, MORE SO WHEN COMPARED TO THE PRIOR STUDY, MEASURING UP TO 13 MM. THE PANCREATIC DUCT IS ALSO DILATED. NO PANCREATIC MASS. NO CALCIFIED STONE IN THE DISTAL COMMON BILE DUCT ALTHOUGH THERE IS SOMEWHAT ABRUPT TERMINATION OF THE DUCT AT THE AMPULLA. CURVILINEAR DENSITIES ARE PRESENT INFERIOR TO THE LIVER. THERE ARE 2 METALLIC DENSITIES WITHIN THE RIGHT UPPER QUADRANT MESENTERIC FAT, 1 IS NEW SINCE THE PRIOR STUDY. ADRENAL GLANDS ARE NORMAL. NO HYDRONEPHROSIS. NO SOLID RENAL MASS. THE SPLEEN IS NOT ENLARGED. INCIDENTAL SPLENULES. THE BLADDER IS WITHIN NORMAL LIMITS. NORMAL PELVIC STRUCTURES. DISTENDED SMALL BOWEL AND LARGE BOWEL LOOPS ARE PRESENT WITHOUT TRANSITION POINT COMPATIBLE WITH ILEUS. NO FRACTURE IS PRESENT. MULTILEVEL DEGENERATIVE CHANGES. NO INTRAHEPATIC MASS. IMPRESSION: POSTOPERATIVE CHANGES OF CHOLECYSTECTOMY WITH A FLUID COLLECTION IN THE GALLBLADDER FOSSA MEASURING 2.8 X 2.3 CM CONCERNING FOR BILOMA. THERE IS ALSO INCREASED DISTENTION OF THE COMMON BILE DUCT AND PANCREATIC DUCT COMPARED TO THE PRIOR STUDY WITH RELATIVE ABRUPT TERMINATION OF THE DISTAL DUCT WHICH COULD REPRESENT STRICTURE ALTHOUGH A NONCALCIFIED STONE IS NOT EXCLUDED. FURTHER EVALUATION WITH ERCP RECOMMENDED. BILATERAL LOWER LOBE INFILTRATES/ATELECTASIS WITH SMALL RIGHT PLEURAL EFFUSION. POSTOPERATIVE ILEUS. MRCP: Attestation: I have reviewed the pertinent imaging results. Radiologist's impression: Impression: Status post cholecystectomy with probable biloma in the gallbladder fossa. Trace perihepatic ascites and a small right pleural effusion could be bland or bilious. The CBD is diffusely dilated but there is no choledocholithiasis or other visible cause for obstruction. Assessment and Plan Assessment and plan (1) Sepsis: Problem comment: -subjective fevers, heart rate max 111, WBC 12.27, suspected UTI and pneumonia -BC x2 ordered (only able to obtain 1 on draw), lactate 0.9, procalcitonin 13.10 -UC pending -continue IV ertapenem -continue IVF, received 1 L NS in ED -monitor, follow morning labs Status: Acute (2) Acute hypoxic respiratory failure: Problem comment: -in setting of acute sepsis, suspected community-acquired pneumonia -O2 saturations 81% on room air -continue supplemental oxygen to maintain saturations > 88% (history of COPD), weaning as able Status: Acute (3) Pneumonia: Problem comment: -CT abdomen/pelvis shows bilateral lower lobe infiltrates/atelectasis -procalcitonin 13.10, strep pneumo, Legionella ordered -continue IV ertapenem Status: Acute (4) Urinary tract infection: Problem comment: -UA is cloudy, positive LE, nitrites, WBC > 100. UC pending -continue IV ertapenem, pending UC results and sensitivities Status: Acute (5) Acute postoperative abdominal pain: Problem comment: -POD#2 s/p laparoscopic cholecystectomy with Dr. Bear (04/22/23) -CT abdomen pelvis shows small collection fluid within the gallbladder fossa, distended small bowel and large bowel loops are present without transition point compatible with ileus -ED provider discussed with Dr. Bear, LFTs not significantly elevated, recommend MRCP - completed skin shows probable biloma in the gallbladder fossa, trace perihepatic ascites and a small right pleural effusion. No evidence choledocholithiasis or other visible cause for obstruction. Discussed findings with Dr. Bear. Fluid in gallbladder fossa likely postoperative finding rather than biloma. Okay to advance with clear liquid diet and continued antibiotics -pain and nausea management as needed -clear liquid diet per General Surgery Status: Acute (6) Ileus: Problem comment: -postop laparoscopic cholecystectomy -MRCP without visible cause for obstruction -clears, monitor Status: Acute (7) Raynaud's phenomenon: Problem comment: -continue amlodipine Status: Chronic (8) Hypothyroidism: Problem comment: History of Yossi's thyroiditis -continue levothyroxine Status: Chronic (9) COPD (chronic obstructive pulmonary disease): Problem comment: -stable, inhaler as needed -monitor in setting of acute CAP Status: Chronic Plan Code status: Full VTE PPX: Enoxaparin, no further surgical interventions at this time Disposition: Continue IV antibiotics, pain management, clear diet at this time, awaiting clinical improvement
--- NOTE | 2023-04-24 16:14 | PC.NURSE ---
Report given to NANDINI Sauceda. All belongings sent with patient. Sister at bedside with patient.
--- NOTE | 2023-04-24 16:22 | P.GSCN_ITS ---
History of Present Illness Consult details Date Seen: 04/24/23 Consult date: 04/24/23 Narrative: The patient is a 67-year-old female with a history of Crohn's, status post several colon resections, now off of amino modulating agents, with recent history of weight loss, abdominal pain and nausea. Workup revealed gallstones and a gallbladder ejection fraction of 10%. She underwent cholecystectomy on 04/23/2023. Initially postoperatively she did well, however yesterday she began having fevers and severe pain in her right back. This is similar to but worse in the pain she was having preoperatively. She has had mild nausea with this as well. No significant abdominal discomfort. She ran out of pain medication this morning and called clinic and was instructed to present to the emergency department because of her fever. [facility] Medical History (Updated 04/24/23 @ 16:30 by Amirah Nevarez PA-C) Vitamin B12 deficiency ?E53.8 - Deficiency of other specified B group vitamins (ICD-10) Inflammation of eye ?H57.89 - Other specified disorders of eye and adnexa (ICD-10) History of left bundle branch block (LBBB) ?Z86.79 - Personal history of other diseases of the circulatory system (ICD- 10) Short of breath on exertion (~2018) ?R06.02 - Shortness of breath (ICD-10) Renal mass (2011) ?N28.89 - Other specified disorders of kidney and ureter (ICD-10) Raynaud's phenomenon ?I73.00 - Raynaud's syndrome without gangrene (ICD-10) Osteoporosis ?M81.0 - Age-related osteoporosis without current pathological fracture (ICD- 10) Migraine headache ?G43.909 - Migraine, unspecified, not intractable, without status migrainosus (ICD-10) Lupus erythematosus ?L93.0 - Discoid lupus erythematosus (ICD-10) Hypothyroidism ?E03.9 - Hypothyroidism, unspecified (ICD-10) History of vitamin D deficiency ?Z86.39 - Personal history of other endocrine, nutritional and metabolic disease (ICD-10) History of hyperglycemia ?Z86.39 - Personal history of other endocrine, nutritional and metabolic disease (ICD-10) History of carbon monoxide poisoning ?Z91.89 - Other specified personal risk factors, not elsewhere classified (ICD-10) Encounter for counseling regarding advance directives (04/14/18) ?Z71.89 - Other specified counseling (ICD-10) Cyst of ovary ?N83.209 - Unspecified ovarian cyst, unspecified side (ICD-10) Crohn's disease ?K50.90 - Crohn's disease, unspecified, without complications (ICD-10) Chronic sinusitis ?J32.9 - Chronic sinusitis, unspecified (ICD-10) Surgical History (Updated 10/27/21 @ 12:30 by Steffanie Hitchcock MD) Status post repair of nerve ?Z98.890 - Other specified postprocedural states (ICD-10) History of surgery on right wrist (1984) ?Z98.890 - Other specified postprocedural states (ICD-10) History of lumbar laminectomy (2008) ?Z98.890 - Other specified postprocedural states (ICD-10) History of left oophorectomy ?Z90.721 - Acquired absence of ovaries, unilateral (ICD-10) History of colectomy (1979) ?Z90.49 - Acquired absence of other specified parts of digestive tract (ICD- 10) History of carpal tunnel surgery of right wrist ?Z98.890 - Other specified postprocedural states (ICD-10) History of bilateral cataract extraction (05/2018) ?Z98.41 - Cataract extraction status, right eye (ICD-10) ?Z98.42 - Cataract extraction status, left eye (ICD-10) Family History (Updated 02/05/23 @ 11:05 by Claribel Bear MD) Paternal Grandmother Stroke, Onset Age: 86 Sister MS (multiple sclerosis) Sjogren's disease Mother Lung cancer, Onset Age: 86 Other Asthma Rheumatoid arthritis Social History (Updated 09/22/21 @ 10:13 by Jeffery Shah) Narrative: does not drink alcohol exercises 5-6 times per week- walk, Lamine Chi non-smoker - remote hx of 10 pack years single, , 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, no kids, has cat Smoking Status: Former smoker How often do you have a drink containing alcohol: never AUDIT-C Alcohol total score: 0 Non-prescribed substance use: denies use Caffeine: No Are you using contraception or practicing any form of control: No Meds Home Medications and Allergies Home Medications Medication Instructions Recorded Confirmed Type acetaminophen 500 mg tablet 1,000 mg PO TID 10/10/21 04/24/23 History calcium carbonate 500 mg calcium 500 mg PO BID 10/10/21 04/24/23 History (1,250 mg) tablet cholecalciferol (vitamin D3) 25 1,000 unit PO DAILY 10/10/21 04/24/23 History mcg (1,000 unit) tablet cyanocobalamin (vitamin B-12) 500 mcg IM Q30D 10/10/21 04/24/23 History 1,000 mcg/mL injection solution guaifenesin 600 mg tablet, 600 mg PO DAILY 10/10/21 04/24/23 History extended release 12 hr lidocaine 5 % topical ointment 1 applic topical DAILY PRN 10/10/21 04/24/23 History potassium gluconate 595 mg (99 mg) 595 mg PO DAILY 10/10/21 04/24/23 History tablet prasterone (dhea) 50 mg tablet 50 mg PO DAILY 10/10/21 04/24/23 History ropinirole 1 mg tablet 3 mg PO HS 10/10/21 04/24/23 History amitriptyline 25 mg tablet 25 mg PO HS PRN 04/18/23 04/24/23 History amlodipine 5 mg tablet 5 mg PO DAILY 04/18/23 04/24/23 History albuterol sulfate 2.5 mg/3 mL 2.5 mg inhalation Q4H PRN wheezing 04/24/23 04/24/23 History (0.083 %) solution for nebulization albuterol sulfate 90 mcg/actuation 1 - 2 puff inhalation Q4H PRN 04/24/23 04/24/23 History aerosol inhaler dyspnea cyclobenzaprine 10 mg tablet 10 mg PO DAILY PRN 04/24/23 04/24/23 History folic acid 1 mg tablet 1 mg PO DAILY 04/24/23 04/24/23 History iron bisglycinate chelate 28 mg PO DAILY 04/24/23 04/24/23 History lysine 1,000 mg tablet 1,000 mg PO DAILY 04/24/23 04/24/23 History sucralfate 1 gram tablet 1 g PO .BIDAC 04/24/23 04/24/23 History triamcinolone acetonide 0.1 % 1 applic topical TID PRN itch 04/24/23 04/24/23 History topical cream triamcinolone acetonide 55 mcg 1 spray intranasal DAILY PRN 04/24/23 04/24/23 History nasal spray aerosol (Nasacort Allergy) venlafaxine 150 mg 150 mg PO DAILY 04/24/23 04/24/23 History capsule,extended release 24 hr Allergies Allergy/AdvReac Type Severity Reaction Status Date / Time morphine Allergy Intermediate Rash Verified 04/24/23 11:22 Penicillins Allergy Intermediate Rash Verified 04/24/23 13:38 tetracycline Allergy Unknown Verified 04/24/23 11:22 adalimumab Allergy Rash Verified 04/24/23 11:22 ibuprofen Allergy Nausea Verified 04/24/23 11:22 infliximab Allergy intolerance Verified 04/24/23 11:22 - doesn't work for pt loratadine Allergy dry mouth, Verified 04/24/23 11:22 rapid heart rate meperidine Allergy Rash Verified 04/24/23 11:22 pregabalin Allergy feels Verified 04/24/23 11:22 intoxicated tramadol Allergy rash, Verified 04/24/23 11:22 itching Sulfa (Sulfonamide AdvReac Intermediate Fatigued Verified 04/24/23 13:38 Antibiotics) Exam Narrative: Exam Narrative: General: Patient appears in no acute distress though she generally appears frail. Heart rate: On my visit, she is mildly tachycardic at 100. Respiratory: Breathing is nonlabored though she is on nasal cannula. - per report desaturated with pain medication administration. Abdomen: Appropriately tender for the postop state. No guarding or rebound. Const: Vital Signs, click to edit/add: Vital Signs - 24 hr 04/24/23 09:29 04/24/23 10:20 04/24/23 10:21 Temperature 98.3 F Pulse Rate 97 96 Pulse Rate [Pulse Oximeter] 98 Respiratory Rate 16 Blood Pressure 120/60 Blood Pressure [Ri ght Upper Arm] 131/67 Pulse Oximetry 91 81 L 83 L Oxygen Delivery Me thod Room Air Oxygen Flow Rate 04/24/23 10:30 04/24/23 10:32 04/24/23 10:45 Temperature Pulse Rate 92 94 95 Pulse Rate [Pulse Oximeter] Respiratory Rate 16 Blood Pressure 118/60 Blood Pressure [Ri ght Upper Arm] Pulse Oximetry 91 90 88 Oxygen Delivery Me thod Nasal Cannula Oxygen Flow Rate 2 04/24/23 11:17 04/24/23 11:20 04/24/23 11:20 Temperature Pulse Rate 106 H 101 H 101 H Pulse Rate [Pulse Oximeter] Respiratory Rate Blood Pressure 118/64 118/64 Blood Pressure [Ri ght Upper Arm] Pulse Oximetry 88 90 90 Oxygen Delivery Me thod Oxygen Flow Rate 04/24/23 11:30 04/24/23 11:32 04/24/23 11:33 Temperature Pulse Rate 98 101 H 101 H Pulse Rate [Pulse Oximeter] Respiratory Rate Blood Pressure 125/58 L Blood Pressure [Ri ght Upper Arm] Pulse Oximetry 91 91 87 L Oxygen Delivery Me thod Oxygen Flow Rate 04/24/23 11:45 04/24/23 12:00 04/24/23 12:02 Temperature Pulse Rate 104 H 100 Pulse Rate [Pulse Oximeter] Respiratory Rate Blood Pressure 89/65 L Blood Pressure [Ri ght Upper Arm] Pulse Oximetry 87 L 83 L Oxygen Delivery Me thod Oxygen Flow Rate 04/24/23 12:03 04/24/23 12:15 04/24/23 12:30 Temperature Pulse Rate 100 96 99 Pulse Rate [Pulse Oximeter] Respiratory Rate Blood Pressure 111/62 Blood Pressure [Ri ght Upper Arm] Pulse Oximetry 88 90 87 L Oxygen Delivery Me thod Room Air Oxygen Flow Rate 04/24/23 12:31 04/24/23 12:45 04/24/23 13:02 Temperature 98.3 F Pulse Rate 97 106 H 111 H Pulse Rate [Pulse Oximeter] Respiratory Rate 16 Blood Pressure 119/61 137/81 Blood Pressure [Ri ght Upper Arm] Pulse Oximetry 87 L 92 92 Oxygen Delivery Me thod Nasal Cannula Room Air Oxygen Flow Rate 2 2 04/24/23 13:03 04/24/23 13:15 04/24/23 13:30 Temperature Pulse Rate 108 H 110 H 101 H Pulse Rate [Pulse Oximeter] Respiratory Rate Blood Pressure Blood Pressure [Ri ght Upper Arm] Pulse Oximetry 92 93 92 Oxygen Delivery Me thod Oxygen Flow Rate 04/24/23 13:32 04/24/23 13:45 04/24/23 14:00 Temperature Pulse Rate 103 H 101 H 104 H Pulse Rate [Pulse Oximeter] Respiratory Rate 16 Blood Pressure 123/68 Blood Pressure [Ri ght Upper Arm] Pulse Oximetry 91 90 89 Oxygen Delivery Me thod Oxygen Flow Rate 04/24/23 14:02 04/24/23 14:15 04/24/23 15:18 Temperature Pulse Rate 100 94 Pulse Rate [Pulse Oximeter] Respiratory Rate 16 Blood Pressure 103/60 128/71 Blood Pressure [Ri ght Upper Arm] Pulse Oximetry 90 91 Oxygen Delivery Me thod Oxygen Flow Rate 04/24/23 15:32 04/24/23 15:38 04/24/23 15:45 Temperature Pulse Rate 101 H 101 H 102 H Pulse Rate [Pulse Oximeter] Respiratory Rate 16 Blood Pressure 122/68 Blood Pressure [Ri ght Upper Arm] Pulse Oximetry 90 90 90 Oxygen Delivery Me thod Nasal Cannula Oxygen Flow Rate 2 04/24/23 16:00 04/24/23 16:02 Temperature Pulse Rate 103 H 99 Pulse Rate [Pulse Oximeter] Respiratory Rate Blood Pressure 115/60 Blood Pressure [Ri ght Upper Arm] Pulse Oximetry 89 90 Oxygen Delivery Me thod Oxygen Flow Rate Results Labs Labs: Abnormal lab results 04/24/23 04/24/23 Range/Units 10:10 10:15 WBC 12.27 H (4.50-11.00) K/uL Neut % (Auto) 82.2 H (42.0-72.0) % Lymph % (Auto) 7.6 L (20-44) % Neut # (Auto) 10.10 H (1.7-7.0) K/uL [place]bs # (Auto) 1.20 H (0.00-0.90) K/UL AST 37 H (12-35) U/L ALT 38 H (4-35) U/L Urine Appearance Cloudy A (Clear) Urine Protein 1+ A (Negative) Urine Ketones 2+ A (Negative) Urine Blood 2+ A (Negative) Urine Nitrite Positive A (Negative) Ur Leukocyte Esterase 3+ A (Negative) Urine WBC >100 A (0-5) Urine Bacteria Many A (None) Diabetes panel 04/24/23 Range/Units 10:10 Sodium 136 (135-149) mmol/L Potassium 3.7 (3.6-5.1) mmol/L Chloride 102 (96-114) mmol/L Carbon Dioxide 26 (20-32) mmol/L BUN 12 (7-30) mg/dL Creatinine 1.0 (0.5-1.5) mg/dL Glucose 92 (60-115) mg/dL Calcium 8.8 (8.4-10.6) mg/dL AST 37 H (12-35) U/L ALT 38 H (4-35) U/L Alkaline Phosphatase 68 (40-150) U/L Total Protein 6.7 (6.0-8.3) g/dL Albumin 3.9 (3.3-5.0) g/dL Calcium panel 04/24/23 Range/Units 10:10 Calcium 8.8 (8.4-10.6) mg/dL Albumin 3.9 (3.3-5.0) g/dL Pituitary panel 04/24/23 Range/Units 10:10 Sodium 136 (135-149) mmol/L Potassium 3.7 (3.6-5.1) mmol/L Chloride 102 (96-114) mmol/L Carbon Dioxide 26 (20-32) mmol/L BUN 12 (7-30) mg/dL Creatinine 1.0 (0.5-1.5) mg/dL Glucose 92 (60-115) mg/dL Calcium 8.8 (8.4-10.6) mg/dL Adrenal panel 04/24/23 Range/Units 10:10 Sodium 136 (135-149) mmol/L Potassium 3.7 (3.6-5.1) mmol/L Chloride 102 (96-114) mmol/L Carbon Dioxide 26 (20-32) mmol/L BUN 12 (7-30) mg/dL Creatinine 1.0 (0.5-1.5) mg/dL Glucose 92 (60-115) mg/dL Calcium 8.8 (8.4-10.6) mg/dL Total Bilirubin 0.9 (0.1-1.5) mg/dL AST 37 H (12-35) U/L ALT 38 H (4-35) U/L Alkaline Phosphatase 68 (40-150) U/L Total Protein 6.7 (6.0-8.3) g/dL Albumin 3.9 (3.3-5.0) g/dL All other labs normal. Imaging Abdomen CT scan report/results: report reviewed and image reviewed Progress Note:A&P Assessment and plan (1) Sepsis: Status: Acute (2) Pneumonia: Status: Acute (3) Urinary tract infection: Status: Acute (4) Acute postoperative abdominal pain: Status: Acute Plan The patient is a 67-year-old female who is 2 days status post laparoscopic cholecystectomy, now with subjective fever and uncontrolled pain. CT scan was reviewed. There is a fluid collection in the gallbladder fossa. Biloma was discussed, however upon my review imaging it appears like an appropriate amount of fluid for postop day 2. Her common bile duct was markedly dilated, however her bilirubin is within normal limits. I suggested an an MRCP to further characterize. If she has biliary obstruction then she will likely need ERCP. She also was noted to have need what appears to be pneumonia and possible pleural effusion on the right side and a markedly positive urinalysis. I discussed with the patient and her sister that it is possible that she aspirated in the perioperative period which could cause the pneumonia. Her sister asked if she had pneumonia prior to surgery. Well this is possible, could not be confirmed - if she was not having any symptoms than it is less likely. Certainly this could be causing discomfort for her as well. I recommend broad treatment with antibiotics, follow-up MRCP and pain control. Would proceed with clear liquid diet for now until pain has improved.
[2023-04-24 17:08] LABS: Lactate Sepsis w/Reflex* 0.9 mmol/L (0.5-1.9)
[2023-04-24] MEDS: SUCRALFATE 1 GM TABLET PO (18:15)
[2023-04-24] MEDS: PANTOPRAZOLE SODIUM 40 MG INJ IVP (18:16)
[2023-04-24] MEDS: 0.9 % SODIUM CHLORIDE 1000 ml 1,000 ML 125 ML IV (18:16)
[2023-04-24] MEDS: ROPINIROLE HCL 1 MG TABLET 3 MG PO (20:33)
[2023-04-24] MEDS: ENOXAPARIN 40 MG/0.4 ML INJ SUBCUT (20:34)
--- NOTE | 2023-04-24 22:23 | PC.NURSE ---
Shift note ([id number]): The pt has been pleasant and cooperative; Denied chest pain ; C/O of short of breath with excretion. C/o of dry cough. The pt has been on 2L of oxygen via NC with Spo2 in the low 90s. C/o of right upper back pain radiating to RUQ; Pain has been managed with PRN Dilaudid. The pt has been on Tele NSR to ST ; HR has been 90-110 at rest . The abdominal lap site x4 intact with steri strip. UP to the BR with SBA. The pt has been reporting she is passing flatus. She drunk about 2 cups of apple juice; tolerating it well without any increased pain or nausea.
[2023-04-25] VITALS (11 sets, daily range): BP systolic 111–134; BP diastolic 60–73; PULSE 91–113; RESP 20–24; TEMP 36.3–37.4; O2SAT 92–97
[2023-04-25 01:20] LABS: Basophils Percent Auto 0.4 % (0.0-3.0); Eosinophils Percent Auto 0.3 % (0.0-7.0); Hematocrit 37.5 % (33.0-51.0); Hemoglobin* 12.1 gm/dL (12.0-16.0); Lymphocytes Percent Auto 5.6 % (20-44); Mean Corpuscular HGB Conc 32 gm/dL (32-36); Mean Corpuscular Hemoglobin 31 pg (26-34); Mean Corpuscular Volume 95 fL (80-100); Monocytes Percent Auto 8.9 % (0.0-11.0); Neutrophils Percent Auto 83.8 % (42.0-72.0); Platelet Count* 199 K/uL (140-440); RDW Coefficient of Variation % 12.8 % (11.5-15.5); Red Blood Count 3.93 m/uL (4.00-5.20); White Blood Count* 11.35 K/uL (4.50-11.00)
[2023-04-25 01:22] LABS: Slide Review Reflex No
[2023-04-25 01:35] LABS: Albumin* 3.1 g/dL (3.3-5.0); Chloride* 105 mmol/L (96-114); Potassium* 3.5 mmol/L (3.6-5.1); Sodium* 136 mmol/L (135-149)
[2023-04-25 01:37] LABS: Anion Gap 7 mEq/L (7-15); Aspartate Amino Transferase* 37 U/L (12-35); Bilirubin Total* 0.8 mg/dL (0.1-1.5); Carbon Dioxide* 24 mmol/L (20-32); Creatinine* 0.8 mg/dL (0.5-1.5); Est. Creatinine Clearance* 40.63; Estimated Glomerular Filt Rate 80 ml/min
[2023-04-25 01:38] LABS: Alanine Aminotransferase* 40 U/L (4-35); Alkaline Phosphatase* 115 U/L (40-150); Blood Urea Nitrogen* 7 mg/dL (7-30); Glucose* 102 mg/dL (60-115); Total Protein* 5.8 g/dL (6.0-8.3)
[2023-04-25 01:39] LABS: Calcium* 7.5 mg/dL (8.4-10.6)
[2023-04-25] MEDS: 0.9 % SODIUM CHLORIDE 1000 ml 1,000 ML 125 ML IV ×3 (01:47→20:14)
[2023-04-25] MEDS: ALBUTEROL SULFATE 2.5 MG/3 ML VIAL.NEB NEB (01:48)
[2023-04-25 01:49] LABS: Troponin I* 0.05 ng/mL (0.01-0.04)
[2023-04-25] MEDS: HYDROmorphone 0.5 mg/0.5 ml inj IVP ×5 (02:14→16:45)
[2023-04-25] MEDS: SODIUM CHLORIDE 0.9 % (FLUSH) 10 ML SYRINGE 5 ML IVF (05:34)
[2023-04-25] MEDS: LEVOTHYROXINE 25 MCG TABLET PO (06:14)
[2023-04-25 06:26] LABS: Hematocrit 37.7 % (33.0-51.0); Hemoglobin* 11.9 gm/dL (12.0-16.0); Mean Corpuscular HGB Conc 32 gm/dL (32-36); Mean Corpuscular Hemoglobin 30 pg (26-34); Mean Corpuscular Volume 96 fL (80-100); Platelet Count* 191 K/uL (140-440); Red Blood Count 3.94 m/uL (4.00-5.20); White Blood Count* 10.21 K/uL (4.50-11.00)
[2023-04-25 06:35] LABS: Slide Review Reflex No
[2023-04-25 06:49] LABS: Chloride* 106 mmol/L (96-114)
[2023-04-25 06:50] LABS: Albumin* 3.1 g/dL (3.3-5.0); Sodium* 137 mmol/L (135-149)
[2023-04-25 06:51] LABS: Potassium* 3.4 mmol/L (3.6-5.1)
[2023-04-25 06:53] LABS: Alanine Aminotransferase* 36 U/L (4-35); Alkaline Phosphatase* 113 U/L (40-150); Anion Gap 7 mEq/L (7-15); Aspartate Amino Transferase* 33 U/L (12-35); Bilirubin Total* 0.6 mg/dL (0.1-1.5); Blood Urea Nitrogen* 6 mg/dL (7-30); Carbon Dioxide* 24 mmol/L (20-32); Creatinine* 0.8 mg/dL (0.5-1.5); Est. Creatinine Clearance* 40.63; Estimated Glomerular Filt Rate 80 ml/min; Glucose* 104 mg/dL (60-115); Lipase* 18 U/L (23-300); Total Protein* 5.8 g/dL (6.0-8.3)
[2023-04-25] MEDS: SUCRALFATE 1 GM TABLET PO ×2 (06:53→18:05)
[2023-04-25 06:54] LABS: Calcium* 7.3 mg/dL (8.4-10.6)
--- NOTE | 2023-04-25 07:33 | PC.NURSE ---
Pt alert and oriented x3. Around 2330, pt was reporting 7/10 right upper quadrant pain that was radiated to back and shoulder, pt's O2 stats were 84% on 2L, oxygen was turned up to 4L to maintain O2 stats of 88%, pt reported feeling SOB, respirations 22-24 breaths per minute, and pt had heart rate of 110 bpm. Pt's telemonitor showed sinus tachycardia. Pt denied chest pain, and N/V. RN took an EKG and called and updated MD Patel. MD ordered Vancomycin and Dilaudid, and CBC and CMP labs. RN gave pt PRN nebulizer for SOB, pt reported relief. Pt triggered sepsis with respirations and tachycardia, discussed with charge machine operator and housekeeping staff, symptoms associated with known infection. Pt is on antibiotics and has normal saline running. Pt was noted to take shallow breaths, when asked pt reported deep breaths caused pain to increase. Pt is up SBA to bathroom and tolerating a clear liquid diet. Pt slept intermittently throughout night.
[2023-04-25] MEDS: ERTAPENEM 1 GM in 0.9 % SODIUM CHLORIDE Mini-bag 100 ML IVPB (08:24)
[2023-04-25] MEDS: VENLAFAXINE ER 75 MG CAPSULE 150 MG PO (08:24)
[2023-04-25 09:33] LABS: Troponin I* 0.04 ng/mL (0.01-0.04)
--- NOTE | 2023-04-25 09:37 | P.IMPN_ITS ---
Progress Note: A&P Assessment and plan (1) Sepsis: Problem details: -subjective fevers, heart rate max 111, WBC 12.27, suspected UTI and pneumonia -BC x2 ordered (only able to obtain 1 on draw), lactate 0.9, procalcitonin 13.10 -UC preliminary > 100,000 gram-negative rods -continue IV ertapenem -continue IVF, received 1 L NS in ED -monitor, follow morning labs 04/25 - leukocytosis resolved, has remained afebrile Status: Acute (2) Acute hypoxic respiratory failure: Problem details: -in setting of acute sepsis, suspected community-acquired pneumonia -O2 saturations 81% on room air -continue supplemental oxygen to maintain saturations > 88% (history of COPD), weaning as able 04/25 - Will rule out PE. D-dimer 4.44. CTA PE ordered Status: Acute (3) Pneumonia: Problem details: -CT abdomen/pelvis shows bilateral lower lobe infiltrates/atelectasis -procalcitonin 13.10, strep pneumo/Legionella pending -continue IV ertapenem Status: Acute (4) Urinary tract infection: Problem details: -UA is cloudy, positive LE, nitrites, WBC > 100. UC preliminary > 100,000 gram- negative rods -continue IV ertapenem, pending final UC results and sensitivities Status: Acute (5) Acute postoperative abdominal pain: Problem details: -POD#3 s/p laparoscopic cholecystectomy with Dr. Bear (04/22/23) -CT abdomen pelvis shows small collection fluid within the gallbladder fossa, distended small bowel and large bowel loops are present without transition point compatible with ileus -ED provider discussed with Dr. Bear, LFTs not significantly elevated, recommend MRCP - completed skin shows probable biloma in the gallbladder fossa, trace perihepatic ascites and a small right pleural effusion. No evidence choledocholithiasis or other visible cause for obstruction. Discussed findings with Dr. Bear. Fluid in gallbladder fossa likely postoperative finding rather than biloma. Okay to advance with clear liquid diet and continued antibiotics -pain and nausea management as needed, adding Jasper p.r.n. (previously tolerated) -clear liquid diet per General Surgery, continue IVF -liver enzymes trending down, lipase unremarkable -appreciate General Surgery following/recommendations Status: Acute (6) Ileus: Problem details: -postop laparoscopic cholecystectomy -MRCP without visible cause for obstruction -clears, monitor 04/25 - reports passing gas, several stools following apple juice intake Status: Acute (7) Raynaud's phenomenon: Problem details: -continue amlodipine Status: Chronic (8) Hypothyroidism: Problem details: History of Yossi's thyroiditis -continue levothyroxine Status: Chronic (9) COPD (chronic obstructive pulmonary disease): Problem details: -stable, inhaler as needed, incentive spirometry -monitor in setting of acute CAP Status: Chronic (10) Tachycardia: Problem details: -on admission, suspected in setting of sepsis -ACS ruled out overnight, troponin 0.05, repeat 0.04, EKG showing sinus tach -D-dimer 4.44. CTA PE ordered Status: Acute (11) Hypokalemia: Problem details: -Potassium 3.4. Start oral replacement b.i.d. and continue to monitor Status: Acute Plan Continue IV antibiotics. Appreciate General surgery following for postoperative needs. Would likely discharge back to home. Subjective Date Seen: 04/25/23 Interval history: Patient is seen this morning, while feeling a bit better, still has significant right upper quadrant pain. Had a spike in pain overnight so overnight hospitalist was contacted and EKG and troponin were obtained. Repeat troponin is pending this morning. Reports right upper quadrant pain this morning is slightly better. Still worsened with deep breathing or palpation. Tolerated clears yesterday without nausea or vomiting. Reports passing gas and having bowel movements now. Remains afebrile, highest temp 99.4? overnight. Remains mildly tachycardic. Exam Narrative: Exam Narrative: PHYSICAL EXAM General: Pleasant, conversant, smiling this morning Cardiovascular: Mildly tachycardic. No pitting edema Pulmonary: CTA bilaterally without rhonchi, rales, expiratory wheezes. No dyspnea on 2 L NC Abdominal: Soft, nondistended, right upper quadrant tenderness, no guarding Neurological: Alert, answering questions appropriately, cranial nerves intact, no focal findings Extremities: No gross joint deformity or swelling. AROMI. Neurovascularly intact Skin: Warm, dry. Const: Vital Signs, click to edit/add: Vital Signs - 24 hr 04/24/23 10:20 04/24/23 10:21 04/24/23 10:30 Temperature Pulse Rate 97 96 92 Pulse Rate [Left P ulse Oximeter] Pulse Rate [orthos tatic lying] Pulse Rate [orthos tatic sitting] Pulse Rate [orthos tatic standing] Respiratory Rate Blood Pressure 120/60 Blood Pressure [Le ft Arm] Blood Pressure [or thostatic lying] Blood Pressure [or thostatic sitting] Blood Pressure [or thostatic standing ] Pulse Oximetry 81 L 83 L 91 Oxygen Delivery Me thod Nasal Cannula Oxygen Flow Rate 2 04/24/23 10:32 04/24/23 10:45 04/24/23 11:17 Temperature Pulse Rate 94 95 106 H Pulse Rate [Left P ulse Oximeter] Pulse Rate [orthos tatic lying] Pulse Rate [orthos tatic sitting] Pulse Rate [orthos tatic standing] Respiratory Rate 16 Blood Pressure 118/60 Blood Pressure [Le ft Arm] Blood Pressure [or thostatic lying] Blood Pressure [or thostatic sitting] Blood Pressure [or thostatic standing ] Pulse Oximetry 90 88 88 Oxygen Delivery Me thod Oxygen Flow Rate 04/24/23 11:20 04/24/23 11:20 04/24/23 11:30 Temperature Pulse Rate 101 H 101 H 98 Pulse Rate [Left P ulse Oximeter] Pulse Rate [orthos tatic lying] Pulse Rate [orthos tatic sitting] Pulse Rate [orthos tatic standing] Respiratory Rate Blood Pressure 118/64 118/64 Blood Pressure [Le ft Arm] Blood Pressure [or thostatic lying] Blood Pressure [or thostatic sitting] Blood Pressure [or thostatic standing ] Pulse Oximetry 90 90 91 Oxygen Delivery Me thod Oxygen Flow Rate 04/24/23 11:32 04/24/23 11:33 04/24/23 11:45 Temperature Pulse Rate 101 H 101 H 104 H Pulse Rate [Left P ulse Oximeter] Pulse Rate [orthos tatic lying] Pulse Rate [orthos tatic sitting] Pulse Rate [orthos tatic standing] Respiratory Rate Blood Pressure 125/58 L Blood Pressure [Le ft Arm] Blood Pressure [or thostatic lying] Blood Pressure [or thostatic sitting] Blood Pressure [or thostatic standing ] Pulse Oximetry 91 87 L 87 L Oxygen Delivery Me thod Oxygen Flow Rate 04/24/23 12:00 04/24/23 12:02 04/24/23 12:03 Temperature Pulse Rate 100 100 Pulse Rate [Left P ulse Oximeter] Pulse Rate [orthos tatic lying] Pulse Rate [orthos tatic sitting] Pulse Rate [orthos tatic standing] Respiratory Rate Blood Pressure 89/65 L 111/62 Blood Pressure [Le ft Arm] Blood Pressure [or thostatic lying] Blood Pressure [or thostatic sitting] Blood Pressure [or thostatic standing ] Pulse Oximetry 83 L 88 Oxygen Delivery Me thod Oxygen Flow Rate 04/24/23 12:15 04/24/23 12:30 04/24/23 12:31 Temperature Pulse Rate 96 99 97 Pulse Rate [Left P ulse Oximeter] Pulse Rate [orthos tatic lying] Pulse Rate [orthos tatic sitting] Pulse Rate [orthos tatic standing] Respiratory Rate Blood Pressure 119/61 Blood Pressure [Le ft Arm] Blood Pressure [or thostatic lying] Blood Pressure [or thostatic sitting] Blood Pressure [or thostatic standing ] Pulse Oximetry 90 87 L 87 L Oxygen Delivery Me thod Room Air Nasal Cannula Oxygen Flow Rate 2 04/24/23 12:45 04/24/23 13:02 04/24/23 13:03 Temperature 98.3 F Pulse Rate 106 H 111 H 108 H Pulse Rate [Left P ulse Oximeter] Pulse Rate [orthos tatic lying] Pulse Rate [orthos tatic sitting] Pulse Rate [orthos tatic standing] Respiratory Rate 16 Blood Pressure 137/81 Blood Pressure [Le ft Arm] Blood Pressure [or thostatic lying] Blood Pressure [or thostatic sitting] Blood Pressure [or thostatic standing ] Pulse Oximetry 92 92 92 Oxygen Delivery Me thod Room Air Oxygen Flow Rate 2 04/24/23 13:15 04/24/23 13:30 04/24/23 13:32 Temperature Pulse Rate 110 H 101 H 103 H Pulse Rate [Left P ulse Oximeter] Pulse Rate [orthos tatic lying] Pulse Rate [orthos tatic sitting] Pulse Rate [orthos tatic standing] Respiratory Rate 16 Blood Pressure 123/68 Blood Pressure [Le ft Arm] Blood Pressure [or thostatic lying] Blood Pressure [or thostatic sitting] Blood Pressure [or thostatic standing ] Pulse Oximetry 93 92 91 Oxygen Delivery Me thod Oxygen Flow Rate 04/24/23 13:45 04/24/23 14:00 04/24/23 14:02 Temperature Pulse Rate 101 H 104 H 100 Pulse Rate [Left P ulse Oximeter] Pulse Rate [orthos tatic lying] Pulse Rate [orthos tatic sitting] Pulse Rate [orthos tatic standing] Respiratory Rate 16 Blood Pressure 103/60 Blood Pressure [Le ft Arm] Blood Pressure [or thostatic lying] Blood Pressure [or thostatic sitting] Blood Pressure [or thostatic standing ] Pulse Oximetry 90 89 90 Oxygen Delivery Me thod Oxygen Flow Rate 04/24/23 14:15 04/24/23 15:18 04/24/23 15:32 Temperature Pulse Rate 94 101 H Pulse Rate [Left P ulse Oximeter] Pulse Rate [orthos tatic lying] Pulse Rate [orthos tatic sitting] Pulse Rate [orthos tatic standing] Respiratory Rate 16 Blood Pressure 128/71 122/68 Blood Pressure [Le ft Arm] Blood Pressure [or thostatic lying] Blood Pressure [or thostatic sitting] Blood Pressure [or thostatic standing ] Pulse Oximetry 91 90 Oxygen Delivery Me thod Nasal Cannula Oxygen Flow Rate 2 04/24/23 15:38 04/24/23 15:45 04/24/23 16:00 Temperature Pulse Rate 101 H 102 H 103 H Pulse Rate [Left P ulse Oximeter] Pulse Rate [orthos tatic lying] Pulse Rate [orthos tatic sitting] Pulse Rate [orthos tatic standing] Respiratory Rate Blood Pressure Blood Pressure [Le ft Arm] Blood Pressure [or thostatic lying] Blood Pressure [or thostatic sitting] Blood Pressure [or thostatic standing ] Pulse Oximetry 90 90 89 Oxygen Delivery Me thod Oxygen Flow Rate 04/24/23 16:02 04/24/23 16:28 04/24/23 18:00 Temperature 98.7 F Pulse Rate 99 Pulse Rate [Left P ulse Oximeter] 101 H Pulse Rate [orthos tatic lying] Pulse Rate [orthos tatic sitting] Pulse Rate [orthos tatic standing] Respiratory Rate 16 16 Blood Pressure 115/60 Blood Pressure [Le ft Arm] Blood Pressure [or thostatic lying] Blood Pressure [or thostatic sitting] Blood Pressure [or thostatic standing ] Pulse Oximetry 90 94 94 Oxygen Delivery Me thod Nasal Cannula Nasal Cannula Oxygen Flow Rate 2 2 04/24/23 19:00 04/24/23 19:00 04/24/23 19:45 Temperature 99.4 F Pulse Rate 103 H Pulse Rate [Left P ulse Oximeter] 105 H Pulse Rate [orthos tatic lying] Pulse Rate [orthos tatic sitting] Pulse Rate [orthos tatic standing] Respiratory Rate 16 Blood Pressure Blood Pressure [Le ft Arm] 120/59 L Blood Pressure [or thostatic lying] Blood Pressure [or thostatic sitting] Blood Pressure [or thostatic standing ] Pulse Oximetry 93 90 Oxygen Delivery Me thod Nasal Cannula Nasal Cannula Oxygen Flow Rate 2 2 04/24/23 23:30 04/24/23 23:35 04/25/23 00:45 Temperature 99.4 F Pulse Rate 107 H Pulse Rate [Left P ulse Oximeter] 110 H Pulse Rate [orthos tatic lying] Pulse Rate [orthos tatic sitting] Pulse Rate [orthos tatic standing] Respiratory Rate 22 22 Blood Pressure Blood Pressure [Le ft Arm] 131/64 Blood Pressure [or thostatic lying] Blood Pressure [or thostatic sitting] Blood Pressure [or thostatic standing ] Pulse Oximetry 89 Oxygen Delivery Me thod Nasal Cannula Oxygen Flow Rate 3 04/25/23 02:20 04/25/23 07:15 04/25/23 08:16 Temperature 99.4 F 98.0 F Pulse Rate Pulse Rate [Left P ulse Oximeter] 104 H 106 H Pulse Rate [orthos tatic lying] 98 Pulse Rate [orthos tatic sitting] 108 H Pulse Rate [orthos tatic standing] 102 H Respiratory Rate 20 24 Blood Pressure Blood Pressure [Le ft Arm] 126/65 128/61 Blood Pressure [or thostatic lying] 115/68 Blood Pressure [or thostatic sitting] 134/70 Blood Pressure [or thostatic standing ] 123/61 Pulse Oximetry 93 92 Oxygen Delivery Me thod Nasal Cannula Nasal Cannula Oxygen Flow Rate 2 Labs Labs: Laboratory Results - last 24 hr 04/24/23 04/24/23 04/24/23 10:10 10:15 17:04 WBC 12.27 H RBC 4.39 Hgb 13.5 Hct 41.5 MCV 95 MCH 31 MCHC 33 RDW Coeff of Brayden 12.6 Plt Count 187 Neut % (Auto) 82.2 H Lymph % (Auto) 7.6 L [place] % (Auto) 9.5 Eos % (Auto) 0.4 Baso % (Auto) 0.2 Neut # (Auto) 10.10 H Lymph # (Auto) 0.90 [place] # (Auto) 1.20 H Eos # (Auto) 0.00 Baso # (Auto) 0.00 Abs Immat Gran (auto) 0.00 Imm/Tot Granulo (auto) 0.1 Sodium 136 Potassium 3.7 Chloride 102 Carbon Dioxide 26 Anion Gap 8 BUN 12 Creatinine 1.0 Estimated Creat Clear 40.63 Estimated GFR 61 Glucose 92 Lactate 0.9 Calcium 8.8 Total Bilirubin 0.9 Direct Bilirubin 0.3 AST 37 H ALT 38 H Alkaline Phosphatase 68 Troponin I Total Protein 6.7 Albumin 3.9 Lipase 25 Procalcitonin Cancelled 13.10 H Urine Color Yellow Urine Appearance Cloudy A Urine pH 6.0 Ur Specific [place] 1.015 Urine Protein 1+ A Urine Glucose (UA) Negative Urine Ketones 2+ A Urine Blood 2+ A Urine Nitrite Positive A Urine Bilirubin Negative Urine Urobilinogen 0.2 Ur Leukocyte Esterase 3+ A Urine RBC 0-2 Urine WBC >100 A Ur Squamous Epith Cells Few Urine Bacteria Many A Lab Acknowledgement 04/24/23 04/25/23 04/25/23 17:56 01:10 06:15 WBC 11.35 H 10.21 RBC 3.93 L 3.94 L Hgb 12.1 11.9 L Hct 37.5 37.7 MCV 95 96 MCH 31 30 MCHC 32 32 RDW Coeff of Brayden 12.8 Plt Count 199 191 Neut % (Auto) 83.8 H Lymph % (Auto) 5.6 L [place] % (Auto) 8.9 Eos % (Auto) 0.3 Baso % (Auto) 0.4 Neut # (Auto) 9.50 H Lymph # (Auto) 0.60 L [place] # (Auto) 1.00 H Eos # (Auto) 0.00 Baso # (Auto) 0.00 Abs Immat Gran (auto) 0.10 Imm/Tot Granulo (auto) 1.0 Sodium 136 137 Potassium 3.5 L 3.4 L Chloride 105 106 Carbon Dioxide 24 24 Anion Gap 7 7 BUN 7 6 L Creatinine 0.8 0.8 Estimated Creat Clear 40.63 40.63 Estimated GFR 80 80 Glucose 102 104 Lactate Calcium 7.5 L 7.3 L Total Bilirubin 0.8 0.6 Direct Bilirubin AST 37 H 33 ALT 40 H 36 H Alkaline Phosphatase 115 113 Troponin I 0.05 H 0.04 Total Protein 5.8 L 5.8 L Albumin 3.1 L 3.1 L Lipase 18 L Procalcitonin Urine Color Urine Appearance Urine pH Ur Specific [place] Urine Protein Urine Glucose (UA) Urine Ketones Urine Blood Urine Nitrite Urine Bilirubin Urine Urobilinogen Ur Leukocyte Esterase Urine RBC Urine WBC Ur Squamous Epith Cells Urine Bacteria Lab Acknowledgement Test Added
[2023-04-25 09:59] LABS: D Dimer Quantitative* 4.44 ug/ml (0.00-0.50)
--- NOTE | 2023-04-25 10:30 | CT_ITS ---
Patient: LOLA BAUER Facility:?[facility] Patient ID:?[id number] Site Patient ID:?[id number]. Site :?[id number] Study:?CT-Chest 95CC ISOVUE 370-04/25/2023 12:09:20 PM Ordering Physician:VARINDER Final Report: INDICATION: HYPOXIA, TACHYCARDIA, +D DIMER, POST PRACHI COMPARISON: 01/17/2018, CT and MRI 04/24/2023 TECHNIQUE: CT volumetric acquisition was performed of the thorax during intravenous infusion of 95 cc Isovue 370 intravenous contrast nonionic intravenous contrast. Please note that all CT scans at this facility use dose modulation, iterative reconstruction, and/or weight-based dosing when appropriate to reduce radiation dose to as low as reasonably achievable. FINDINGS: No pulmonary embolism is present. Mildly prominent mediastinal lymph nodes are present, likely reactive. The largest lymph node is in the subcarinal space and measures 1.5 cm. Right pleural effusion is present which has increased in the interim. Trace left pleural effusion. Increased volume loss within the right lower lobe and right middle lobe. Atelectasis left lower lobe. Additional atelectasis in the lingula. No pericardial effusion. Hiatal hernia. Status post cholecystectomy. Biloma in the gallbladder fossa. No pneumothorax or CHF. No suspicious pulmonary nodule. IMPRESSION: No evidence of pulmonary thromboembolism. Bilateral pleural effusions, right greater than left. Increased volume loss/infiltrates within both lung bases, [id number]. Development of adenopathy in the mediastinum, likely reactive. Persistent biloma in the gallbladder fossa. Please note that all CT scans at this facility use dose modulation, iterative reconstruction, and/or weight-based dosing when appropriate to reduce radiation dose to as low as reasonably achievable. Dictated by Christiano Kevin MD @ 04/25/2023 1:15:21 PM Signed by:?Christiano Kevin MD @04/25/2023 1:15:21 PM (Electronic Signature)
[2023-04-25] MEDS: HYDROCODONE-ACETAMIN 5-325 MG 1 TAB PO ×2 (11:03→18:05)
[2023-04-25] MEDS: POTASSIUM CHLORIDE 10 MEQ CAPSULE ER 20 MEQ PO ×2 (11:43→18:05)
--- NOTE | 2023-04-25 18:07 | PM.GSPN ---
Subjective Subjective Date Seen: 04/25/23 Interval history: Maria E feels better today. She has been up walking. She has been using her IS. She still on nasal cannula. Has not had much of an appetite but nausea is better and she is moving her bowels. Has been afebrile today. She is still having pain in her back. This is worse with movement. Exam Narrative: Exam Narrative: General: No acute distress CV: Regular rate Respiratory: Breathing is nonlabored. She is on room air on my exam however she has required nasal cannula most the day. Abdomen: Incisions are clean and dry. Appropriately tender for the postop state. No peritoneal signs, guarding or rebound. Const: Vital Signs, click to edit/add: Vital Signs - 24 hr 04/24/23 19:00 04/24/23 19:00 04/24/23 19:45 Temperature 99.4 F Pulse Rate 103 H Pulse Rate [Left P ulse Oximeter] 105 H Pulse Rate [orthos tatic lying] Pulse Rate [orthos tatic sitting] Pulse Rate [orthos tatic standing] Respiratory Rate 16 Blood Pressure [Le ft Arm] 120/59 L Blood Pressure [or thostatic lying] Blood Pressure [or thostatic sitting] Blood Pressure [or thostatic standing ] Pulse Oximetry 93 90 Oxygen Delivery Me thod Nasal Cannula Nasal Cannula Oxygen Flow Rate 2 2 04/24/23 23:30 04/24/23 23:35 04/25/23 00:45 Temperature 99.4 F Pulse Rate 107 H Pulse Rate [Left P ulse Oximeter] 110 H Pulse Rate [orthos tatic lying] Pulse Rate [orthos tatic sitting] Pulse Rate [orthos tatic standing] Respiratory Rate 22 22 Blood Pressure [Le ft Arm] 131/64 Blood Pressure [or thostatic lying] Blood Pressure [or thostatic sitting] Blood Pressure [or thostatic standing ] Pulse Oximetry 89 Oxygen Delivery Me thod Nasal Cannula Oxygen Flow Rate 3 04/25/23 02:20 04/25/23 07:15 04/25/23 08:16 Temperature 99.4 F 98.0 F Pulse Rate Pulse Rate [Left P ulse Oximeter] 104 H 106 H Pulse Rate [orthos tatic lying] 98 Pulse Rate [orthos tatic sitting] 108 H Pulse Rate [orthos tatic standing] 102 H Respiratory Rate 20 24 Blood Pressure [Le ft Arm] 126/65 128/61 Blood Pressure [or thostatic lying] 115/68 Blood Pressure [or thostatic sitting] 134/70 Blood Pressure [or thostatic standing ] 123/61 Pulse Oximetry 93 92 Oxygen Delivery Me thod Nasal Cannula Nasal Cannula Oxygen Flow Rate 2 04/25/23 10:03 04/25/23 11:10 04/25/23 15:42 Temperature 98.9 F Pulse Rate 99 94 Pulse Rate [Left P ulse Oximeter] 104 H Pulse Rate [orthos tatic lying] Pulse Rate [orthos tatic sitting] Pulse Rate [orthos tatic standing] Respiratory Rate 22 Blood Pressure [Le ft Arm] 116/68 Blood Pressure [or thostatic lying] Blood Pressure [or thostatic sitting] Blood Pressure [or thostatic standing ] Pulse Oximetry 94 Oxygen Delivery Me thod Nasal Cannula Oxygen Flow Rate 2 04/25/23 16:00 04/25/23 16:00 Temperature 97.3 F L Pulse Rate Pulse Rate [Left P ulse Oximeter] 95 95 Pulse Rate [orthos tatic lying] Pulse Rate [orthos tatic sitting] Pulse Rate [orthos tatic standing] Respiratory Rate 20 20 Blood Pressure [Le ft Arm] 133/73 Blood Pressure [or thostatic lying] Blood Pressure [or thostatic sitting] Blood Pressure [or thostatic standing ] Pulse Oximetry 97 Oxygen Delivery Me thod Nasal Cannula Oxygen Flow Rate 2 Labs/Imaging Labs Labs: White blood cell count is down today to 10. AST is normal. ALT is 36. Direct bilirubin and total bilirubin remain normal. Progress Note:A&P Assessment and plan (1) Tachycardia: Status: Acute (2) COPD (chronic obstructive pulmonary disease): Status: Chronic (3) Acute hypoxic respiratory failure: Status: Acute (4) Pneumonia: Status: Acute (5) Urinary tract infection: Status: Acute (6) Acute postoperative abdominal pain: Status: Acute Plan The patient is a 67-year-old female who is postop day 3 status post laparoscopic cholecystectomy for likely chronic cholecystitis and cholelithiasis. She was readmitted yesterday with fever and abdominal pain she rib she is found to have likely pneumonia on the right with pleural effusion as well as a urinary tract infection. MRCP did not show common bile duct stone. Her LFTs would argue against biliary obstruction despite her dilated common bile duct on imaging. She does have fluid in the gallbladder fossa. radiology has been calling this a biloma, however it is too small to drain at this time and also Surgicel was placed in the gallbladder fossa which can have this appearance. If the patient were to worsen clinically I would repeat imaging - HIDA scan could be performed if there is increased fluid or alternatively, the patient could be transferred for drain placement. -recommend continuing antibiotics for pneumonia/UTI. -advance diet as tolerated -okay for DVT prophylaxis -patient will follow-up with me in 2 weeks as scheduled.
--- NOTE | 2023-04-25 18:25 | PC.NURSE ---
end of shift. pt has been pleasant. C/o of right upper back pain 6-8/10 radiating to RUQ; Pain po norco PRN Dilaudid. C/O of short of breath with excretion. she has o2 on @ 1L nc. C/o of dry cough. Tele NSR to ST. abdominal lap site x4 intact with steri strip. UP to the BR with SBA and IV pole, She is drinking clears, tolerating it well without any increased pain or nausea. IV is patent.
[2023-04-25] MEDS: ROPINIROLE HCL 1 MG TABLET 3 MG PO (21:08)
[2023-04-25] MEDS: ACETAMINOPHEN 325 MG TABLET PO (21:12)
[2023-04-25] MEDS: ENOXAPARIN 40 MG/0.4 ML INJ SUBCUT (21:16)
[2023-04-25 23:15] LABS: HCO3 VBG 26 mmol/L (21-28); PCO2 VBG 47 mmHG (40-50); PO2 VBG 28.3 mmHG (25-47); pH VBG 7.355 (7.32-7.43)
[2023-04-26] VITALS (7 sets, daily range): BP systolic 117–150; BP diastolic 61–72; PULSE 88–108; RESP 18–20; TEMP 36.8–37.4; O2SAT 89–97
[2023-04-26] MEDS: ONDANSETRON 2 MG/ML inj 4 MG IVP (02:34)
[2023-04-26] MEDS: SODIUM CHLORIDE 0.9 % (FLUSH) 10 ML SYRINGE 5 ML IVF ×3 (02:34→21:17)
[2023-04-26] MEDS: 0.9 % SODIUM CHLORIDE 1000 ml 1,000 ML 125 ML IV (02:54)
--- NOTE | 2023-04-26 05:56 | PC.NURSE ---
Addendum entered by Gem Fisher 04/26/23 06:31: @0620 pt reported 7/10 pain in URQ PRN Minerva given. Original Note: Pt is alert and oriented x3. Afebrile. Pt reports 3/10 pain in URQ, pain radiates to back and shoulder, pain medications offered pt refused. Pt reports throat pain, managed PRN throat spray. Pt denies chest pain and SOB. SOB is noted with exertion. Pt reports nausea, managed with PRN Zofran. Pt is up SBA with IV pole. Pt is encouraged to deep breath and use IS. Pt was titrated from 4L O2 via nasal cannula to 3L to maintain stats of 88% and higher. Pt slept throughout most of night.
[2023-04-26] MEDS: SUCRALFATE 1 GM TABLET PO ×2 (06:22→17:43)
[2023-04-26] MEDS: HYDROCODONE-ACETAMIN 5-325 MG 1 TAB PO ×3 (06:23→18:42)
[2023-04-26] MEDS: phenoL 1.4 % THROAT SPRAY 1 SPRAY MUCOUS MEM (06:23)
[2023-04-26] MEDS: LEVOTHYROXINE 25 MCG TABLET PO (06:24)
[2023-04-26 06:56] LABS: Hematocrit 43.5 % (33.0-51.0); Hemoglobin* 13.8 gm/dL (12.0-16.0); Mean Corpuscular HGB Conc 32 gm/dL (32-36); Mean Corpuscular Hemoglobin 30 pg (26-34); Mean Corpuscular Volume 95 fL (80-100); Platelet Count* 200 K/uL (140-440); Red Blood Count 4.56 m/uL (4.00-5.20); White Blood Count* 7.67 K/uL (4.50-11.00)
[2023-04-26 07:05] LABS: Albumin* 3.6 g/dL (3.3-5.0); Chloride* 108 mmol/L (96-114); Sodium* 140 mmol/L (135-149)
[2023-04-26 07:06] LABS: Potassium* 3.3 mmol/L (3.6-5.1)
[2023-04-26 07:08] LABS: Alanine Aminotransferase* 35 U/L (4-35); Alkaline Phosphatase* 131 U/L (40-150); Anion Gap 9 mEq/L (7-15); Aspartate Amino Transferase* 35 U/L (12-35); Bilirubin Total* 0.6 mg/dL (0.1-1.5); Blood Urea Nitrogen* 2 mg/dL (7-30); Carbon Dioxide* 23 mmol/L (20-32); Creatinine* 0.6 mg/dL (0.5-1.5); Est. Creatinine Clearance* 40.63; Estimated Glomerular Filt Rate 98 ml/min; Glucose* 93 mg/dL (60-115); Total Protein* 6.5 g/dL (6.0-8.3)
[2023-04-26 07:09] LABS: Calcium* 7.5 mg/dL (8.4-10.6)
[2023-04-26 07:15] LABS: Slide Review Reflex Yes
[2023-04-26 07:17] LABS: Slide Review Acceptable Review (Acceptable)
[2023-04-26] MEDS: POTASSIUM CHLORIDE 10 MEQ CAPSULE ER 20 MEQ PO ×2 (09:07→18:13)
[2023-04-26] MEDS: VENLAFAXINE ER 75 MG CAPSULE 150 MG PO (09:08)
[2023-04-26] MEDS: ERTAPENEM 1 GM in 0.9 % SODIUM CHLORIDE Mini-bag 100 ML IVPB (09:08)
[2023-04-26] MEDS: POTASSIUM BICARB 25 MEQ EFFERVESCENT TAB PO (09:18)
--- NOTE | 2023-04-26 10:10 | PM.GSPN ---
Subjective Subjective Date Seen: 04/26/23 Interval history: Patient is doing well today. She still complains of pain in the right sided flank that was present since surgery. But the pain is slowly improving. Her shortness of breath is getting better and she is off oxygen. She tolerated clears. She had multiple bowel movements. She is ambulating. Exam Narrative: Exam Narrative: Abdomen is soft, not distended, tender to palpation near the right upper quadrant and right flank. Laparoscopic incisions are covered with Steri-Strips. There is small ecchymosis near the left upper quadrant incision. For Const: Vital Signs, click to edit/add: Vital Signs - 24 hr 04/25/23 11:10 04/25/23 15:42 04/25/23 16:00 Temperature 98.9 F 97.3 F L Pulse Rate 94 Pulse Rate [Left P ulse Oximeter] 104 H 95 Respiratory Rate 22 20 Blood Pressure [Le ft Arm] 116/68 133/73 Pulse Oximetry 94 97 Oxygen Delivery Me thod Nasal Cannula Nasal Cannula Oxygen Flow Rate 2 2 04/25/23 16:00 04/25/23 19:55 04/25/23 20:56 Temperature 98.6 F Pulse Rate 113 H Pulse Rate [Left P ulse Oximeter] 95 104 H Respiratory Rate 20 20 Blood Pressure [Le ft Arm] 116/71 Pulse Oximetry 92 Oxygen Delivery Me thod Room Air Oxygen Flow Rate 04/25/23 23:40 04/25/23 23:40 04/25/23 23:40 Temperature 98.4 F Pulse Rate 91 Pulse Rate [Left P ulse Oximeter] 92 Respiratory Rate 20 20 Blood Pressure [Le ft Arm] 111/60 Pulse Oximetry 92 Oxygen Delivery Me thod Room Air Oxygen Flow Rate 4 04/26/23 02:30 04/26/23 07:11 04/26/23 07:30 Temperature 98.4 F 98.5 F Pulse Rate 88 Pulse Rate [Left P ulse Oximeter] 89 95 Respiratory Rate 20 18 Blood Pressure [Le ft Arm] 126/72 117/61 Pulse Oximetry 89 93 Oxygen Delivery Me thod Room Air Nasal Cannula Oxygen Flow Rate 3 1 04/26/23 07:30 Temperature Pulse Rate Pulse Rate [Left P ulse Oximeter] 95 Respiratory Rate 18 Blood Pressure [Le ft Arm] Pulse Oximetry Oxygen Delivery Me thod Oxygen Flow Rate Progress Note:A&P Assessment and plan (1) Acute postoperative abdominal pain: Status: Acute Plan 67-year-old female readmitted to the hospital after she underwent laparoscopic cholecystectomy. Patient was readmitted with fevers and shortness of breath and found to have pneumonia. Patient is doing well from her surgery standpoint. Her right-sided flank right upper quadrant pain is continuing to improve with pain medications. She tolerated clears and had multiple bowel movements. Her breathing is improving and she is off oxygen. Will advance her to regular diet. I discussed with the patient to drink Ensure worse since she is usually not eating a lot at home. Possibly discharge home tomorrow.
[2023-04-26 10:20] LABS: Magnesium* 2.2 mg/dL (1.5-2.6)
--- NOTE | 2023-04-26 11:46 | P.IMPN_ITS ---
Progress Note: A&P Assessment and plan (1) Pneumonia: Problem details: -CT abdomen/pelvis shows bilateral lower lobe infiltrates/atelectasis -procalcitonin 13.10, strep pneumo/Legionella pending -continue IV ertapenem Status: Acute (2) Urinary tract infection: Problem details: Abnormal urinalysis with postoperative fever. History of recurrent UTIs. Patient attributes these to Crohn's disease with previous fistulas. Culture growing pansensitive E coli. Status: Acute (3) Sepsis: Problem details: -subjective fevers, heart rate max 111, WBC 12.27, suspected UTI and pneumonia -BC x2 ordered (only able to obtain 1 on draw), lactate 0.9, procalcitonin 13.10 -UC preliminary > 100,000 gram-negative rods -continue IV ertapenem -continue IVF, received 1 L NS in ED -monitor, follow morning labs 04/25 - leukocytosis resolved, has remained afebrile Status: Acute (4) Hypokalemia: Problem details: -Potassium 3.4. Start oral replacement b.i.d. and continue to monitor Status: Acute (5) Acute postoperative abdominal pain: Problem details: -POD#3 s/p laparoscopic cholecystectomy with Dr. Bear (04/22/23) -CT abdomen pelvis shows small collection fluid within the gallbladder fossa, distended small bowel and large bowel loops are present without transition point compatible with ileus -ED provider discussed with Dr. Bear, LFTs not significantly elevated, recommend MRCP - completed skin shows probable biloma in the gallbladder fossa, trace perihepatic ascites and a small right pleural effusion. No evidence choledocholithiasis or other visible cause for obstruction. Discussed findings with Dr. Bear. Fluid in gallbladder fossa likely postoperative finding rather than biloma. Okay to advance with clear liquid diet and continued antibiotics -pain and nausea management as needed, adding [place] p.r.n. (previously tolerated) Advanced diet as tolerated. LFTs normal today -appreciate General Surgery following/recommendations Status: Acute (6) Acute hypoxic respiratory failure: Problem details: Clinically improving. Off oxygen. Due to pneumonia. Status: Acute Plan Continue in hospital for IV antibiotics, advance diet, monitoring of postoperative complications. Possible discharge tomorrow if doing well. Time Spent With Patient Total time spent: Total time spent today is 55 minutes, 40 minutes in coordination of care discussing with patient and other providers evaluation and management of pneumonia, UTI and postoperative complications. Subjective Date Seen: 04/26/23 Interval history: 67-year-old female admitted to the hospital following cholecystectomy on 04/23/2023. She initially did well postoperatively but then developed right flank/back/right upper quadrant pain and fever. On admission she was found to have a pneumonia and pleural effusion and urinary tract infection. She subsequently had an MRCP which did not show common bile duct stone. He did have a dilated common bile duct without obvious obstruction. She had some fluid in the gallbladder fossa. Dr. Bear felt that this was a benign postoperative change rather than a biloma. She has been treated with ertapenem and continues to have clinical improvement. Her fever has resolved. Her pain is better. Her breathing is better. She is no longer requiring oxygen. She is hungry. Exam Narrative: Exam Narrative: She is alert and appears in no distress. She gives her own history. Respirations are clear to auscultation except for a rare basilar crackle. Cardiovascular: S1, S2, regular rate and rhythm. No murmur gallop or rub. Abdomen: Bowel sounds active. She has mild bruising around laparoscopic incision sites without erythema or drainage from the wounds. She has mild tenderness in her right lower quadrant underneath her right lower quadrant scar from previous surgeries. Minimal right upper quadrant tenderness. Const: Vital Signs, click to edit/add: Vital Signs - 24 hr 04/25/23 15:42 04/25/23 16:00 04/25/23 16:00 Temperature 97.3 F L Pulse Rate 94 Pulse Rate [Left P ulse Oximeter] 95 95 Respiratory Rate 20 20 Blood Pressure [Le ft Arm] 133/73 Pulse Oximetry 97 Oxygen Delivery Me thod Nasal Cannula Oxygen Flow Rate 2 04/25/23 19:55 04/25/23 20:56 04/25/23 23:40 Temperature 98.6 F Pulse Rate 113 H 91 Pulse Rate [Left P ulse Oximeter] 104 H Respiratory Rate 20 Blood Pressure [Le ft Arm] 116/71 Pulse Oximetry 92 Oxygen Delivery Me thod Room Air Oxygen Flow Rate 04/25/23 23:40 04/25/23 23:40 04/26/23 02:30 Temperature 98.4 F 98.4 F Pulse Rate Pulse Rate [Left P ulse Oximeter] 92 89 Respiratory Rate 20 20 20 Blood Pressure [Le ft Arm] 111/60 126/72 Pulse Oximetry 92 89 Oxygen Delivery Me thod Room Air Room Air Oxygen Flow Rate 4 3 04/26/23 07:11 04/26/23 07:30 04/26/23 07:30 Temperature 98.5 F Pulse Rate 88 Pulse Rate [Left P ulse Oximeter] 95 95 Respiratory Rate 18 18 Blood Pressure [Le ft Arm] 117/61 Pulse Oximetry 93 Oxygen Delivery Me thod Nasal Cannula Oxygen Flow Rate 1 04/26/23 11:26 Temperature 98.7 F Pulse Rate Pulse Rate [Left P ulse Oximeter] 95 Respiratory Rate 18 Blood Pressure [Le ft Arm] 125/71 Pulse Oximetry 91 Oxygen Delivery Me thod Room Air Oxygen Flow Rate Documenting provider has reviewed patient's vital signs: yes Labs Labs: Laboratory Results - last 24 hr 04/24/23 04/25/23 04/26/23 20:49 23:10 06:38 WBC 7.67 RBC 4.56 Hgb 13.8 Hct 43.5 MCV 95 MCH 30 MCHC 32 Plt Count 200 Diff Slide Review Acceptable Review VBG pH 7.355 VBG pCO2 47 VBG pO2 28.3 VBG HCO3 26 Sodium 140 Potassium 3.3 L Chloride 108 Carbon Dioxide 23 Anion Gap 9 BUN 2 L Creatinine 0.6 Estimated Creat Clear 40.63 Estimated GFR 98 Glucose 93 Calcium 7.5 L Magnesium 2.2 Total Bilirubin 0.6 AST 35 ALT 35 Alkaline Phosphatase 131 Total Protein 6.5 Albumin 3.6 Urine L. pneumophilia Ag Cancelled Urine Strep pneumoniae Ag Cancelled Lab Acknowledgement 04/26/23 10:05 WBC RBC Hgb Hct MCV MCH MCHC Plt Count Diff Slide Review VBG pH VBG pCO2 VBG pO2 VBG HCO3 Sodium Potassium Chloride Carbon Dioxide Anion Gap BUN Creatinine Estimated Creat Clear Estimated GFR Glucose Calcium Magnesium Total Bilirubin AST ALT Alkaline Phosphatase Total Protein Albumin Urine L. pneumophilia Ag Urine Strep pneumoniae Ag Lab Acknowledgement Test Added
--- NOTE | 2023-04-26 15:10 | PC.NURSE ---
end of shift. pt has been very pleasant. C/o of right upper back pain 3-5/10 today. radiating to RUQ; Pain po norco PRN vel Shen d/c. C/O of short of breath with excretion. she has o2 on @ 1-2L nc. she needs more o2 when sleeping. IS to 750 C/o of dry cough. Tele NSR and it was d/c. IV was SL. . abdominal lap site x4 intact with steri strip. UP to the BR with SBA and IV pole, She was advanced to regular, tolerating it well without any increased pain or nausea. SL is patent.
[2023-04-26] MEDS: ALBUTEROL SULFATE 2.5 MG/3 ML VIAL.NEB NEB (17:43)
--- NOTE | 2023-04-26 18:37 | PC.NURSE ---
Pt friendly and cooperative, although resistant to IS. She did state she understands the purpose and agreed to participate after education summary with contract technical writer. Pt was seen ambulating the halls independently. VS WNL and LS diminished. 4 lap sites C,D,&I. Sister visiting pt at bedside and pt is tolerating a regular diet without difficulty. Plans to discharge home tomorrow.
[2023-04-26] MEDS: ROPINIROLE HCL 1 MG TABLET 3 MG PO (21:14)
[2023-04-26] MEDS: CALCIUM CARBONATE 500 MG TABLET PO (21:15)
[2023-04-26] MEDS: ENOXAPARIN 40 MG/0.4 ML INJ SUBCUT (21:16)
[2023-04-27 02:52] VITALS: BP 138/69; PULSE 87; RESP 18; TEMP 37; O2SAT 94
[2023-04-27] MEDS: ONDANSETRON 2 MG/ML inj 4 MG IVP (02:56)
[2023-04-27] MEDS: HYDROCODONE-ACETAMIN 5-325 MG 1 TAB PO (06:19)
[2023-04-27] MEDS: SUCRALFATE 1 GM TABLET PO (06:20)
[2023-04-27] MEDS: LEVOTHYROXINE 25 MCG TABLET PO (06:21)
[2023-04-27 07:00] VITALS: BP 132/68; PULSE 91; RESP 18; RESP 20; TEMP 36.6; O2SAT 93
[2023-04-27 07:28] LABS: Hematocrit 37.1 % (33.0-51.0); Hemoglobin* 12.1 gm/dL (12.0-16.0); Mean Corpuscular HGB Conc 33 gm/dL (32-36); Mean Corpuscular Hemoglobin 31 pg (26-34); Mean Corpuscular Volume 94 fL (80-100); Platelet Count* 181 K/uL (140-440); Red Blood Count 3.97 m/uL (4.00-5.20)
[2023-04-27 07:53] LABS: Chloride* 108 mmol/L (96-114)
[2023-04-27 07:54] LABS: Albumin* 3.1 g/dL (3.3-5.0); Potassium* 3.3 mmol/L (3.6-5.1); Sodium* 138 mmol/L (135-149)
[2023-04-27 07:56] LABS: Anion Gap 6 mEq/L (7-15); Carbon Dioxide* 24 mmol/L (20-32); Creatinine* 0.6 mg/dL (0.5-1.5); Est. Creatinine Clearance* 40.63; Estimated Glomerular Filt Rate 98 ml/min
[2023-04-27 07:57] LABS: Alanine Aminotransferase* 29 U/L (4-35); Alkaline Phosphatase* 108 U/L (40-150); Aspartate Amino Transferase* 32 U/L (12-35); Bilirubin Total* 0.4 mg/dL (0.1-1.5); Blood Urea Nitrogen* 3 mg/dL (7-30); Calcium* 8.5 mg/dL (8.4-10.6); Glucose* 101 mg/dL (60-115); Total Protein* 5.9 g/dL (6.0-8.3)
[2023-04-27 08:01] LABS: Slide Review Reflex No
--- NOTE | 2023-04-27 09:03 | P.DS_ITS ---
DS: Providers Provider Date Seen: 04/27/23 Date of admission: 04/25/23 08:51 Primary care physician: LAMONTE NORWOOD DO Admitting Clinician: Catracho Domínguez MD Consults: 04/24/23 18:28 Consult to Physical Therapy [CONS] Routine Comment: Reason(s) for PT Consult:: Evaluate and Treat Any Restrictions?:: No Restrictions 04/25/23 09:33 Consult to Physician [CONS] Routine Comment: Consulting Provider: Claribel Bear Has provider been notified: Yes Attending Physician on discharge: Amirah Nevarez PA-C DS: Diagnosis Discharge Diagnosis (1) Acute hypoxic respiratory failure: Status: Resolved Problem details: Initially had hypoxia secondary to pneumonia. Still having mild hypoxia at night. Consider sleep study to evaluate for sleep apnea DS: Summary Hospital Course Hospital Course: Patient was admitted to the hospital 2 days after she underwent laparoscopic cholecystectomy. Patient was admitted with hypoxia and low-grade fevers. She was thought to have a pneumonia. On abdominal CT she was found to have a small fluid collection in the right upper quadrant that was concerning for biloma. She also had dilated common bile duct. MRCP was obtained that showed no retained common bile duct stone. The right upper quadrant fluid collection could have been a piece of Surgicel that was placed intraoperatively( the small Right upper quadrant fluid collection has a few air bubbles in it. It would be unlikely to have an intra-abdominal abscess this early postoperatively and this is why it is thought to be Surgicel). If this is a biloma in the right upper quadrant, this was thought to be too small for drain placement. Patient also had CT chest and no pulmonary embolism was identified. Patient was treated with IV antibiotics, and will be discharged home on p.o. antibiotics. Her WBC remained normal for the past 3 days prior to discharge. During patient's hospital stay she continued to improve. She was off oxygen. Her pain was controlled with pain medications. She was tolerating regular diet and having regular bowel movements. She continued to have right flank and right mid back pain but that was improving. Time Spent with Patient Time attestation: Total time spent providing and/or coordinating discharge services: Exam Narrative: Exam Narrative: Abdomen is soft, protuberant, tender to palpation in the right upper quadrant but nowhere else, laparoscopic incisions with surrounding luisa-incisional ecchymosis. No peritoneal signs. Const: Vital Signs, click to edit/add: Vital Signs - 24 hr 04/26/23 11:26 04/26/23 15:00 04/26/23 15:00 Temperature 98.7 F 98.7 F Pulse Rate [Left P ulse Oximeter] 95 98 98 Respiratory Rate 18 18 18 Blood Pressure [Le ft Arm] 125/71 130/68 Pulse Oximetry 91 90 Oxygen Delivery Me thod Room Air Room Air Oxygen Flow Rate 04/26/23 19:00 04/26/23 22:22 04/26/23 22:22 Temperature 99.3 F 98.3 F Pulse Rate [Left P ulse Oximeter] 108 H 98 Respiratory Rate 18 18 18 Blood Pressure [Le ft Arm] 150/70 H 131/63 Pulse Oximetry 97 92 Oxygen Delivery Me thod Room Air Nasal Cannula Oxygen Flow Rate 2 04/27/23 02:52 Temperature 98.6 F Pulse Rate [Left P ulse Oximeter] 87 Respiratory Rate 18 Blood Pressure [Le ft Arm] 138/69 Pulse Oximetry 94 Oxygen Delivery Me thod Nasal Cannula Oxygen Flow Rate 2 DS: Data Data Completed and Pending Labs on day of discharge: Labs from last 24 hours 04/27/23 04/26/23 04/26/23 06:44 10:05 06:38 WBC 8.40 RBC 3.97 L Hgb 12.1 Hct 37.1 MCV 94 MCH 31 MCHC 33 Plt Count 181 Sodium 138 Potassium 3.3 L Chloride 108 Carbon Dioxide 24 Anion Gap 6 L BUN 3 L Creatinine 0.6 Estimated Creat Clear 40.63 Estimated GFR 98 Glucose 101 Calcium 8.5 Magnesium 2.2 Total Bilirubin 0.4 AST 32 ALT 29 Alkaline Phosphatase 108 Total Protein 5.9 L Albumin 3.1 L Lab Acknowledgement Test Added Preliminary micro results at discharge 04/24/23 17:04 Blood Culture - Preliminary Blood NO GROWTH AFTER 48 HOURS Discharge Plan Discharge Disposition: Home, Self-Care Date of Admission: 04/25/23 08:51 Attending Provider on Discharge: Gina Mabry Consulting Providers: Claribel Bear; Gina Mabry; Francois Matta Primary Care Provider: LAMONTE NORWOOD Condition: Improved Anticipated Discharge Date/Time: 04/27/23 08:58 Discharge Medications: New hydrocodone-acetaminophen 5-325 mg tablet 1 tab PO Q6H PRN (Reason: pain) Qty: 25 0RF levofloxacin 500 mg tablet 500 mg PO DAILY Qty: 5 0RF potassium chloride 10 mEq capsule, extended release 10 meq PO DAILY Qty: 30 0RF Continued potassium gluconate 595 mg (99 mg) tablet 595 mg PO DAILY acetaminophen 500 mg tablet 1,000 mg PO TID ropinirole 1 mg tablet 3 mg PO HS cholecalciferol (vitamin D3) 25 mcg (1,000 unit) tablet 1,000 unit PO DAILY prasterone (dhea) 50 mg tablet 50 mg PO DAILY guaifenesin 600 mg tablet extended release 12hr 600 mg PO DAILY lidocaine 5 % ointment 1 applic topical DAILY PRN Rx Instructions: Apply a thin film topically to affected area(s) daily as needed cyanocobalamin (vitamin B-12) 1,000 mcg/mL solution 500 mcg IM Q30D Rx Instructions: Patient takes 500 mcg monthly calcium carbonate 500 mg calcium (1,250 mg) tablet 500 mg PO BID Rx Instructions: 1250 mg calcium carbonate = 500 mg calcium amlodipine 5 mg tablet 5 mg PO DAILY amitriptyline 25 mg tablet 25 mg PO HS PRN Rx Instructions: rare use folic acid 1 mg tablet 1 mg PO DAILY venlafaxine 150 mg capsule,extended release 24hr 150 mg PO DAILY albuterol sulfate 90 mcg/actuation HFA aerosol inhaler 1 - 2 puff INHALATION Q4H PRN (Reason: dyspnea) lysine 1,000 mg tablet 1,000 mg PO DAILY cyclobenzaprine 10 mg tablet 10 mg PO DAILY PRN Rx Instructions: rare use per pt triamcinolone acetonide 0.1 % cream 1 applic topical TID PRN (Reason: itch) triamcinolone acetonide [Nasacort Allergy] 55 mcg aerosol,spray 1 spray intranasal DAILY PRN Rx Instructions: FOR SEASONAL ALLERGIES iron bisglycinate chelate 28 mg iron capsule 28 mg PO DAILY Rx Instructions: best guess on what pt is taking based on description sucralfate 1 gram tablet 1 g PO .BIDAC albuterol sulfate 2.5 mg /3 mL (0.083 %) solution for nebulization 2.5 mg inhalation Q4H PRN (Reason: wheezing) levothyroxine 25 mcg tablet 25 mcg PO DAILY Qty: 30 0RF Discontinued hydrocodone-acetaminophen 5-325 mg Tablet 1 tab PO Q4H PRN (Reason: Pain) Qty: 5 0RF Discharge Orders: Discharge Order (Routine); Ordered 04/27/23 Ordered By: Gina Mabry Patient Education: Hydrocodone/Acetaminophen (By mouth), Potassium Chloride (By mouth), Levofloxacin (By mouth), Bacterial Pneumonia (DC), Urinary Tract Infection in Older Adults (DC) Additional Instructions: No strenuous activity or lifting more than 15-20 lbs for 4-6 weeks. Take laxative such as MiraLax or senna daily for the first 7-10 days after surgery to prevent constipation. Patient already has a follow-up appointment with Dr. Bear on 05/07/2023 [place] Activity Level: No strenuous activity Discharge Diet: Regular Follow Up Appointments: Claribel Bear MD [Staff Physician] - 05/07/23 10:30 am ([facility] for follow up ) LAMONTE NORWOOD DO [Primary Care Provider] - (Follow-up in 1 week. Check basic metabolic panel in 1 week. check chest X-ray in 3-4 weeks to follow up right lower lobe infiltrate and pleural effusion) Forms: [facility] Info Instructions
[2023-04-27] MEDS: CALCIUM CARBONATE 500 MG TABLET PO (09:07)
[2023-04-27] MEDS: VENLAFAXINE ER 75 MG CAPSULE 150 MG PO (09:07)
[2023-04-27] MEDS: POTASSIUM CHLORIDE 10 MEQ CAPSULE ER 20 MEQ PO (09:07)
[2023-04-27] MEDS: SODIUM CHLORIDE 0.9 % (FLUSH) 10 ML SYRINGE 5 ML IVF (09:08)
[2023-04-27] MEDS: ERTAPENEM 1 GM in 0.9 % SODIUM CHLORIDE Mini-bag 100 ML IVPB (09:08)
--- NOTE | 2023-04-27 12:28 | PC.NURSE ---
Pt cooperative this morning and continues to ambulate intermittently around her room and in the loaiza. Improved diligence with IS use. VS WNL and LS clear/diminished on auscultation. Afebrile. Lap sites intact with scant dried bloody drainage. Rates pain 3/10, PRN Viola given. Continued to encourage fluid intake, ambulation, and IS use. Pt verbalized understanding of discharge instructions and follow up appointments. She was discharged to home via wheelchair in the care of her sister at 1220.
--- NOTE | 2023-04-27 13:15 | PM.DS1 ---
DS: Providers Provider Date Seen: 04/27/23 Date of admission: 04/25/23 08:51 Primary care physician: LAMONTE NORWOOD DO Admitting Clinician: Catracho Domínguez MD Attending Physician on discharge: Faisal Matta MD DS: Diagnosis Discharge Diagnosis (1) Pneumonia: Status: Acute Problem details: -CT abdomen/pelvis shows bilateral lower lobe infiltrates/atelectasis -procalcitonin 13.10, strep pneumo/Legionella negative Treated with ertapenem in the hospital. Five days of [id number] mg orally after discharge (2) Pleural effusion: Status: Acute Problem details: Pleural effusion, right greater than left, associated with cholecystitis and cholecystectomy and with right basilar pneumonia. Possible parapneumonic effusion. Thoracentesis was not done. Recheck chest x-ray in 3-4 weeks or sooner if clinically indicated. Consider thoracentesis if not resolving. (3) Hypokalemia: Status: Acute Problem details: -add oral potassium to outpatient medications. Outpatient follow-up labs in 1 week (4) Sepsis: Status: Acute Problem details: -subjective fevers, heart rate max 111, WBC 12.27, suspected UTI and pneumonia -BC x2 ordered (only able to obtain 1 on draw), lactate 0.9, procalcitonin 13.10 -UC preliminary > 100,000 gram-negative rods -continue IV ertapenem -continue IVF, received 1 L NS in ED -monitor, follow morning labs 04/25 - leukocytosis resolved, has remained afebrile (5) Ileus: Status: Acute Problem details: -postop laparoscopic cholecystectomy -MRCP without visible cause for obstruction -clears, monitor 04/25 - reports passing gas, several stools following apple juice intake (6) Urinary tract infection: Status: Acute Problem details: Abnormal urinalysis with postoperative fever. History of recurrent UTIs. Patient attributes these to Crohn's disease with previous fistulas. Culture growing pansensitive E coli. (7) Acute postoperative abdominal pain: Status: Acute Problem details: -POD#3 s/p laparoscopic cholecystectomy with Dr. Bear (04/22/23) -CT abdomen pelvis shows small collection fluid within the gallbladder fossa, distended small bowel and large bowel loops are present without transition point compatible with ileus -ED provider discussed with Dr. Bear, LFTs not significantly elevated, recommend MRCP - completed skin shows probable biloma in the gallbladder fossa, trace perihepatic ascites and a small right pleural effusion. No evidence choledocholithiasis or other visible cause for obstruction. Discussed findings with Dr. Bear. Fluid in gallbladder fossa likely postoperative finding rather than biloma. Okay to advance with clear liquid diet and continued antibiotics -pain and nausea management as needed, adding [place] p.r.n. (previously tolerated) Advanced diet as tolerated. LFTs normal today (8) Acute hypoxic respiratory failure: Status: Acute Problem details: Initially had hypoxia secondary to pneumonia. Still having mild hypoxia at night. Consider sleep study to evaluate for sleep apnea DS: Summary Hospital Course Hospital Course: Patient was admitted to the hospital 2 days after she underwent laparoscopic cholecystectomy. Patient was admitted with hypoxia and low-grade fevers. She was thought to have a pneumonia. On abdominal CT she was found to have a small fluid collection in the right upper quadrant that was concerning for biloma. She also had dilated common bile duct. MRCP was obtained that showed no retained common bile duct stone. The right upper quadrant fluid collection could have been a piece of Surgicel that was placed intraoperatively( the small Right upper quadrant fluid collection has a few air bubbles in it. It would be unlikely to have an intra-abdominal abscess this early postoperatively and this is why it is thought to be Surgicel). If this is a biloma in the right upper quadrant, this was thought to be too small for drain placement. Patient also had CT chest and no pulmonary embolism was identified. Patient was treated with IV antibiotics, and will be discharged home on p.o. antibiotics. Her WBC remained normal for the past 3 days prior to discharge. During patient's hospital stay she continued to improve. She was off oxygen. Her pain was controlled with pain medications. She was tolerating regular diet and having regular bowel movements. She continued to have right flank and right mid back pain but that was improving. Status at Discharge Functional status at discharge: independent ambulation Overall status at discharge: patient is progressing back to baseline Time Spent with Patient Time attestation: Total time spent providing and/or coordinating discharge services:40 mins Time spent: Greater than 30 minutes Exam Narrative: Exam Narrative: She is alert and appears in no distress. Breathing is unlabored on room air. Respirations are clear to auscultation except for a few left basilar crackles and diminished breath sounds and a pleural rub at the right base. Cardiovascular: S1, S2, regular rate and rhythm. Abdomen: Incisions are clean without erythema or drainage. Abdomen is soft. Mild right upper quadrant tenderness consistent with postoperative status. No peritonitis. Extremities without edema. Const: Vital Signs, click to edit/add: Vital Signs - 24 hr 04/26/23 15:00 04/26/23 15:00 04/26/23 19:00 Temperature 98.7 F 99.3 F Pulse Rate [Left P ulse Oximeter] 98 98 108 H Respiratory Rate 18 18 18 Blood Pressure [Le ft Arm] 130/68 150/70 H Pulse Oximetry 90 97 Oxygen Delivery Me thod Room Air Room Air Oxygen Flow Rate 04/26/23 22:22 04/26/23 22:22 04/27/23 02:52 Temperature 98.3 F 98.6 F Pulse Rate [Left P ulse Oximeter] 98 87 Respiratory Rate 18 18 18 Blood Pressure [Le ft Arm] 131/63 138/69 Pulse Oximetry 92 94 Oxygen Delivery Me thod Nasal Cannula Nasal Cannula Oxygen Flow Rate 2 2 04/27/23 07:00 04/27/23 07:00 Temperature 97.8 F Pulse Rate [Left P ulse Oximeter] 91 91 Respiratory Rate 20 18 Blood Pressure [Le ft Arm] 132/68 Pulse Oximetry 93 Oxygen Delivery Me thod Room Air Oxygen Flow Rate Documenting provider has reviewed patient's vital signs: yes DS: Data Data Completed and Pending Labs on day of discharge: Labs from last 24 hours 04/27/23 06:44 WBC 8.40 RBC 3.97 L Hgb 12.1 Hct 37.1 MCV 94 MCH 31 MCHC 33 Plt Count 181 Sodium 138 Potassium 3.3 L Chloride 108 Carbon Dioxide 24 Anion Gap 6 L BUN 3 L Creatinine 0.6 Estimated Creat Clear 40.63 Estimated GFR 98 Glucose 101 Calcium 8.5 Total Bilirubin 0.4 AST 32 ALT 29 Alkaline Phosphatase 108 Total Protein 5.9 L Albumin 3.1 L Preliminary micro results at discharge 04/24/23 17:04 Blood Culture - Preliminary Blood NO GROWTH AFTER 48 HOURS Discharge Plan Discharge Disposition: Home, Self-Care Date of Admission: 04/25/23 08:51 Attending Provider on Discharge: Gina Mabry Consulting Providers: Claribel Bear Primary Care Provider: LAMONTE NORWOOD Condition: Improved Anticipated Discharge Date/Time: 04/27/23 08:58 Discharge Medications: New hydrocodone-acetaminophen 5-325 mg tablet 1 tab PO Q6H PRN (Reason: pain) Qty: 25 0RF levofloxacin 500 mg tablet 500 mg PO DAILY Qty: 5 0RF potassium chloride 10 mEq capsule, extended release 10 meq PO DAILY Qty: 30 0RF Continued potassium gluconate 595 mg (99 mg) tablet 595 mg PO DAILY acetaminophen 500 mg tablet 1,000 mg PO TID ropinirole 1 mg tablet 3 mg PO HS cholecalciferol (vitamin D3) 25 mcg (1,000 unit) tablet 1,000 unit PO DAILY prasterone (dhea) 50 mg tablet 50 mg PO DAILY guaifenesin 600 mg tablet extended release 12hr 600 mg PO DAILY lidocaine 5 % ointment 1 applic topical DAILY PRN Rx Instructions: Apply a thin film topically to affected area(s) daily as needed cyanocobalamin (vitamin B-12) 1,000 mcg/mL solution 500 mcg IM Q30D Rx Instructions: Patient takes 500 mcg monthly calcium carbonate 500 mg calcium (1,250 mg) tablet 500 mg PO BID Rx Instructions: 1250 mg calcium carbonate = 500 mg calcium amlodipine 5 mg tablet 5 mg PO DAILY amitriptyline 25 mg tablet 25 mg PO HS PRN Rx Instructions: rare use folic acid 1 mg tablet 1 mg PO DAILY venlafaxine 150 mg capsule,extended release 24hr 150 mg PO DAILY albuterol sulfate 90 mcg/actuation HFA aerosol inhaler 1 - 2 puff INHALATION Q4H PRN (Reason: dyspnea) lysine 1,000 mg tablet 1,000 mg PO DAILY cyclobenzaprine 10 mg tablet 10 mg PO DAILY PRN Rx Instructions: rare use per pt triamcinolone acetonide 0.1 % cream 1 applic topical TID PRN (Reason: itch) triamcinolone acetonide [Nasacort Allergy] 55 mcg aerosol,spray 1 spray intranasal DAILY PRN Rx Instructions: FOR SEASONAL ALLERGIES iron bisglycinate chelate 28 mg iron capsule 28 mg PO DAILY Rx Instructions: best guess on what pt is taking based on description sucralfate 1 gram tablet 1 g PO .BIDAC albuterol sulfate 2.5 mg /3 mL (0.083 %) solution for nebulization 2.5 mg inhalation Q4H PRN (Reason: wheezing) levothyroxine 25 mcg tablet 25 mcg PO DAILY Qty: 30 0RF Discontinued hydrocodone-acetaminophen 5-325 mg Tablet 1 tab PO Q4H PRN (Reason: Pain) Qty: 5 0RF Discharge Orders: Discharge Order (Routine); Ordered 04/27/23 Ordered By: Gina Mabry Patient Education: Hydrocodone/Acetaminophen (By mouth), Potassium Chloride (By mouth), Levofloxacin (By mouth), Bacterial Pneumonia (DC), Urinary Tract Infection in Older Adults (DC) Additional Instructions: No strenuous activity or lifting more than 15-20 lbs for 4-6 weeks. Take laxative such as MiraLax or senna daily for the first 7-10 days after surgery to prevent constipation. Patient already has a follow-up appointment with Dr. Bear on 05/07/2023 [place] Activity Level: No strenuous activity Discharge Diet: Regular Follow Up Appointments: Claribel Bear MD [Staff Physician] - 05/07/23 10:30 am ([facility] follow up ) LAMONTE NORWOOD DO [Primary Care Provider] - (Follow-up in 1 week. Check basic metabolic panel in 1 week. check chest X-ray in 3-4 weeks to follow up right lower lobe infiltrate and pleural effusion) Forms: [facility] Info Instructions
== END 2023-04-27 12:34 | disposition home or self-care (01) | DRG 871 ==
LOC: ED 15:08 → MEDSURG 16:19
PROVIDERS: Family Medicine; Internal Medicine; Admitting Provider Physician Assistant; Emergency Provider Emergency Medicine Emergency Medical Services; PCP Student in an Organized Health Care Education/Training Program; Visit Provider Physician Assistant
DX: A41.9 Sepsis, unspecified organism (principal); J18.9 Pneumonia, unspecified organism; J96.01 Acute respiratory failure with hypoxia; K50.90 Crohn's disease, unspecified, without complications; N39.0 Urinary tract infection, site not specified; K91.89 Other postprocedural complications and disorders of digestive system; K56.7 Ileus, unspecified; G89.18 Other acute postprocedural pain; R10.11 Right upper quadrant pain; Z90.49 Acquired absence of other specified parts of digestive tract; I73.00 Raynaud's syndrome without gangrene; E03.9 Hypothyroidism, unspecified; J44.9 Chronic obstructive pulmonary disease, unspecified; E87.6 Hypokalemia; B96.20 Unspecified Escherichia coli [E. coli] as the cause of diseases classified elsewhere
CPT/HCPCS: 36415; 71275; 74177; 74181; 80048; 80053; 80076; 81001; 82803; 83605; 83690; 83735; 84145; 84484; 85025; 85027; 85379; 87040; 87086; 87186; 87449; 87899; 93005; 94640; 97116; 97161; 99285; G0378; A9270; C9113; J1170; J1335; J1650; J2405; J3370; J7030; Q9967

== ENCOUNTER 2024-08-31 10:59 | Outpatient (CLI) | payer MEDICARE, OTHER, SELFPAY ==
--- NOTE | 2024-08-31 12:12 | P.ANES_ITS ---
Anesthesia Charges Start Date/Time Anesthesia Start Date: 08/31/24 Anesthesia Start Time: 11:53 Stop Date/Time Anesthesia Stop Date: 08/31/24 Anesthesia Stop Time: 12:15 Coding CPT Codes CPT Codes: ANES UPR GI NDSC PX NOS - 99831 ([id number]) P3 - PATIENT W/SEVERE SYS DISEASE, QK - SECURITY SYSTEM INSTALLER 2-4 CNCRNT ANES PROC, QX - TOOL MECHANIC SVC W/ MD MED DIRECTION
--- NOTE | 2024-08-31 12:12 | W.ANESCHARGE ---
Anesthesia Charges Start Date/Time Anesthesia Start Date: 08/31/24 Anesthesia Start Time: 11:53 Stop Date/Time Anesthesia Stop Date: 08/31/24 Anesthesia Stop Time: 12:15 Coding CPT Codes CPT Codes: ANES UPR GI NDSC PX NOS - 53556 ([id number]) P3 - PATIENT W/SEVERE SYS DISEASE, QK - BONING ROOM WORKER 2-4 CNCRNT ANES PROC, QX - [employer] CONSULTANT SVC W/ MD MED DIRECTION
--- NOTE | 2024-08-31 12:57 | P.ANES_ITS ---
Anesthesia Charges Start Date/Time Anesthesia Start Date: 08/31/24 Anesthesia Start Time: 11:53 Stop Date/Time Anesthesia Stop Date: 08/31/24 Anesthesia Stop Time: 12:15 Coding CPT Codes CPT Codes: ANES UPR GI NDSC PX NOS - 36697 ([id number]) QK - FOOTWEAR SALES LEADER 2-4 CNCRNT ANES PROC, QX - COLLAR FOLDER OPERATOR SVC W/ MD MED DIRECTION, P3 - PATIENT W/SEVERE SYS DISEASE
--- NOTE | 2024-08-31 12:57 | W.ANESCHARGE ---
Anesthesia Charges Start Date/Time Anesthesia Start Date: 08/31/24 Anesthesia Start Time: 11:53 Stop Date/Time Anesthesia Stop Date: 08/31/24 Anesthesia Stop Time: 12:15 Coding CPT Codes CPT Codes: ANES UPR GI NDSC PX NOS - 45621 ([id number]) QK - SUPERVISOR COMMERCIAL FISH HATCHERY 2-4 CNCRNT ANES PROC, QX - HOUSING CASE MANAGER SVC W/ MD MED DIRECTION, P3 - PATIENT W/SEVERE SYS DISEASE
== END 2024-08-31 11:00 | disposition home or self-care (01) ==
LOC: OP CLINIC 11:02
PROVIDERS: PCP Student in an Organized Health Care Education/Training Program; Visit Provider Surgery
DX: K21.9 Gastro-esophageal reflux disease without esophagitis (principal); K44.9 Diaphragmatic hernia without obstruction or gangrene
CPT/HCPCS: 00731; 43239; J2704; J3490